=== PATIENT | female | born 1970 | race American Indian/Alaskan Native ===

== ENCOUNTER 2018-07-04 04:28 | Emergency (ER) | payer BC, OTHER ==
[2018-07-04 05:00] VITALS: BP 164/100
[2018-07-04 05:28] LABS: Basophils # (Auto) 0.1 K/mm3 (0.0-0.1); Eosinophils # (Auto) 0.1 K/mm3 (0.0-0.4); Eosinophils % (Auto) 1.6 % (0.0-4.3); Hematocrit 45.1 % (30.3-42.9); Hemoglobin 15.2 gm/dl (10.1-14.3); Lymphocytes # (Auto) 3.5 K/mm3 (1.2-5.4); Lymphocytes % (Auto) 45.4 % (13.4-35.0); Mean Corpuscular HGB Conc 34 % (30-34); Mean Corpuscular Volume 88 fl (79-97); Monocytes # (Auto) 0.6 K/mm3 (0.0-0.8); Monocytes % (Auto) 7.3 % (0.0-7.3); Platelet Count 234 K/mm3 (140-440); Red Blood Count 5.15 M/mm3 (3.65-5.03); Red Cell Distribution Width 14.1 % (13.2-15.2)
[2018-07-04 05:43] LABS: BUN/Creatinine Ratio 18; Blood Urea Nitrogen 11 mg/dL (7-17); Calcium 9.2 mg/dL (8.4-10.2); Hemolysis Index 9
--- NOTE | 2018-07-04 06:30 | XRay Report ---
PROCEDURE: XR CHEST 1V AP TECHNIQUE: Chest radiograph single view. HISTORY: Chest Pain COMPARISONS: None . FINDINGS: Heart: Normal. Mediastinum/Vessels: Normal. Lungs/Pleural space: Normal. Bony thorax: No acute osseous abnormality. Life support devices: None. IMPRESSION: No acute cardiopulmonary abnormality. This document is electronically signed by Erick Nolasco MD., Jul 04 2018 06:27:55 AM ET
--- NOTE | 2018-07-04 07:21 | Emergency Department Report ---
ED Chest Pain HPI - General Chief Complaint: Chest Pain Stated Complaint: ARM PAIN , CHEST PAIN Time Seen by Provider: 07/04/18 07:15 Source: patient Mode of arrival: Ambulatory Limitations: No Limitations - History of Present Illness Severity scale (0 -10): 10 - Related Data Home Medications Medication Instructions Recorded Confirmed Last Taken ALBUTEROL Inhaler (OR & NICU) 2 puff IH QID PRN 03/13/14 01/05/15 01/04/15 [ProAir HFA Inhaler] Metformin HCl [metFORMIN ER] 500 mg PO QDAY 03/13/14 01/05/15 01/04/15 Glimepiride [Amaryl] 1 mg PO QAM 01/05/15 01/05/15 01/04/15 Losartan/Hydrochlorothiazide 1 tab PO QDAY 01/05/15 01/05/15 01/04/15 [Hyzaar 50-12.5 TAB] Simvastatin [Zocor TAB] 10 mg PO QHS 01/05/15 01/05/15 01/04/15 Previous Rx's Medication Instructions Recorded Last Taken Type Pantoprazole [Protonix TAB] 40 mg PO QDAY #30 tablet 01/06/15 Unknown Rx Allergies Allergy/AdvReac Type Severity Reaction Status Date / Time No Known Allergies Allergy Verified 01/05/15 09:29 ED Review of Systems ROS: Stated complaint: ARM PAIN , CHEST PAIN Other details as noted in HPI ED Past Medical Hx - Past Medical History Previous Medical History?: Yes Hx Hypertension: Yes Hx Diabetes: Yes Hx Asthma: Yes Additional medical history: Neuropathy - Surgical History Past Surgical History?: Yes Additional Surgical History: FIBROID REMOVED - Social History Smoking Status: Never Smoker Substance Use Type: None - Medications Home Medications: Home Medications Medication Instructions Recorded Confirmed Last Taken Type ALBUTEROL Inhaler (OR & NICU) 2 puff IH QID PRN 03/13/14 01/05/15 01/04/15 History [ProAir HFA Inhaler] Metformin HCl [metFORMIN ER] 500 mg PO QDAY 03/13/14 01/05/15 01/04/15 History Glimepiride [Amaryl] 1 mg PO QAM 01/05/15 01/05/15 01/04/15 History Losartan/Hydrochlorothiazide 1 tab PO QDAY 01/05/15 01/05/15 01/04/15 History [Hyzaar 50-12.5 TAB] Simvastatin [Zocor TAB] 10 mg PO QHS 01/05/15 01/05/15 01/04/15 History Pantoprazole [Protonix TAB] 40 mg PO QDAY #30 tablet 01/06/15 Unknown Rx ED Physical Exam - General Limitations: No Limitations ED Course Vital Signs 07/04/18 04:58 Temperature 97.8 F Pulse Rate 79 Respiratory 16 Rate Blood Pressure 164/100 [Left] O2 Sat by Pulse 99 Oximetry MACK score - Mack Score Age > 65: (0) No Aspirin use within the Past 7 Days: (0) No 3 or more CAD Risk Factors: (1) Yes 2 or more Angina events in past 24 hrs: (0) No Known CAD with more than 50% Stenosis: (0) No Elevated Cardiac Markers: (0) No ST Deviation Greater than 0.5mm: (0) No MACK Score: 1 ED Medical Decision Making - Lab Data Result diagrams: 07/04/18 05:16 07/04/18 05:16 - Radiology Data Radiology results: report reviewed, image reviewed Fluoro Time In Minutes: PROCEDURE: XR CHEST 1V AP TECHNIQUE: Chest radiograph single view. HISTORY: Chest Pain COMPARISONS: None . FINDINGS: Heart: Normal. Mediastinum/Vessels: Normal. Lungs/Pleural space: Normal. Bony thorax: No acute osseous abnormality. Life support devices: None. IMPRESSION: No acute cardiopulmonary abnormality. This document is electronically signed by Erick Thornton MD., Jul 04 2018 06:27:55 AM ET Transcribed By: CO Dictated By: ERICK THORNTON MD Electronically Authenticated By: ERICK THORNTON MD Signed Date/Time: 07/04/18 0676 Critical care attestation.: If time is entered above; I have spent that time in minutes in the direct care of this critically ill patient, excluding procedure time. ED Disposition Condition: Stable Referrals: MARTHA CONNELLY MD [Primary Care Provider] - 3-5 Days
--- NOTE | 2018-07-04 08:07 | Emergency Department Report ---
Upper Extremity - HPI Chief Complaint: Chest Pain Stated Complaint: ARM PAIN , CHEST PAIN Time Seen by Provider: 07/04/18 07:15 Upper Extremity: Left Shoulder, Left Arm Occurred When: >5 Days Mechanism: Fall (2 years ago) Severity: moderate Symptoms: Yes Pain with Movement, Yes Limited Range of Movement, No Deformity, No Numbness, No Weakness, No Swelling, No Bruising/Ecchymosis, No Laceration or Abrasion Other History: This is a 47-year-old female with history of neuropathy controlled medication who presents ED complaining left-sided collarbone to shoulder pain this pain getting worse for the past 2 years. Patient states about 2 years ago she fell off a ladder and on her back. Patient states that she did not seek medical attention since that time. Patient states this instance she is noticed her left shoulder is gotten gradually worse with pain. Patient states that it flares up from time to time with swollen shoulder and arm of the left. Patient states she is experiencing pain with lifting her arm up. ED Review of Systems ROS: Stated complaint: ARM PAIN , CHEST PAIN Other details as noted in HPI Comment: All other systems reviewed and negative ED Past Medical Hx - Past Medical History Previous Medical History?: Yes Hx Hypertension: Yes Hx Diabetes: Yes Hx Asthma: Yes Additional medical history: Neuropathy - Surgical History Past Surgical History?: Yes Additional Surgical History: FIBROID REMOVED - Social History Smoking Status: Never Smoker Substance Use Type: None - Medications Home Medications: Home Medications Medication Instructions Recorded Confirmed Last Taken Type ALBUTEROL Inhaler (OR & NICU) 2 puff IH QID PRN 03/13/14 01/05/15 01/04/15 History [ProAir HFA Inhaler] Metformin HCl [metFORMIN ER] 500 mg PO QDAY 03/13/14 01/05/15 01/04/15 History Glimepiride [Amaryl] 1 mg PO QAM 01/05/15 01/05/15 01/04/15 History Losartan/Hydrochlorothiazide 1 tab PO QDAY 01/05/15 01/05/15 01/04/15 History [Hyzaar 50-12.5 TAB] Simvastatin [Zocor TAB] 10 mg PO QHS 01/05/15 01/05/15 01/04/15 History Pantoprazole [Protonix TAB] 40 mg PO QDAY #30 tablet 01/06/15 Unknown Rx Cyclobenzaprine [Flexeril] 10 mg PO QHS PRN #30 tablet 07/04/18 Unknown Rx Ibuprofen [Motrin] 800 mg PO Q8HR #30 tablet 07/04/18 Unknown Rx Upper Extremity Exam - Exam General: Vital signs noted. No distress. Alert and acting appropriately. Head and Torso: No HEENT Abnormality, No Neck Tenderness, No Chest/Lungs Abnormality, No Abdominal Tenderness, No Back Tenderness Shoulder Exam: Yes Shoulder Tenderness (left-sided), Yes AC Joint Tenderness, No Clavicle Tenderness, No Normal Range of Motion in Shoulder (limited with pain unable to lift her arm above shoulder), No Shoulder Deformity Arm Exam: No Arm/Humerus Tenderness, No Arm Deformity Elbow: No Elbow Tenderness, No Normal Range of Motion in Elbow, No Elbow Deformity Forearm: No Forearm Tenderness, No Forearm Deformity, No Pain with Pronation, No Pain with Supination Wrist: Yes Normal ROM in Wrist, No Wrist Tenderness, No Wrist Deformity, No Snuffbox Tenderness, No Pain with Axial Thumb Compression Hand: Yes Normal ROM in Digit(s), No Hand Tenderness, No Hand Deformity, No Digit Tenderness, No Digit(s) Deformity, No Tendon Dysfunction CMS Exam: No Broken Skin, No Normal Distal Pulses, No Normal Capillary Refill, No Normal Distal Sensation ED Course Vital Signs 07/04/18 04:58 Temperature 97.8 F Pulse Rate 79 Respiratory 16 Rate Blood Pressure 164/100 [Left] O2 Sat by Pulse 99 Oximetry ED Medical Decision Making - Lab Data Result diagrams: 07/04/18 05:16 07/04/18 05:16 - Radiology Data Radiology results: report reviewed, image reviewed - Medical Decision Making 47-year-old female presents with possible before meals joint injury of the left shoulder. Discussed with the patient that she needs to see an orthopedic doctor. X-rays of the shoulder is obtained. Discussed results with the patient. Vital signs are normal patient is in no acute distress. Critical care attestation.: If time is entered above; I have spent that time in minutes in the direct care of this critically ill patient, excluding procedure time. ED Disposition Clinical Impression: Shoulder arthralgia, Hill Sachs deformity, left Disposition: DC-01 TO HOME OR SELFCARE Is pt being admited?: No Does the pt Need Aspirin: No Condition: Stable Instructions: Rotator Cuff Tendinitis (ED), Trigger Point Pain (ED), Cervical Radiculopathy (ED), Tendinitis (ED) Additional Instructions: Make sure to follow up with the orthopedics physician as discussed. Take all your medications as you've been prescribed. If you have any worsening symptoms or develop new symptoms please return to ED immediately. Prescriptions: Cyclobenzaprine [Flexeril] 10 mg PO QHS PRN #30 tablet PRN Reason: Muscle Spasm Ibuprofen [Motrin] 800 mg PO Q8HR #30 tablet Referrals: MARTHA CONNELLY MD [Primary Care Provider] - 3-5 Days RAFAEL RIVERA MD [Staff Physician] - 3-5 Days Forms: Accompanied Note, Work/School Release Form(ED) Time of Disposition: 08:13
--- NOTE | 2018-07-04 08:11 | XRay Report ---
LEFT SHOULDER RADIOGRAPHS INDICATION: Pain. COMPARISON: None similar. FINDINGS: Frontal and Y views of the left shoulder, 3 projections demonstrate normal humeral head articular surface, well positioned against the glenoid. Subtle Hill-Sachs deformity though not entirely excluded. Normal acromioclavicular joint. Preserved scapular contour. Normal visualized soft tissues, left ribs and lung. CONCLUSION: Subtle Hill-Sachs deformity on the left not entirely excluded, as described. Please correlate. Thank you for the opportunity to participate in this patient's care.
== END 2018-07-04 08:27 | disposition home or self-care (01) ==
LOC: ED 04:28
DX: M25.512 Pain in left shoulder (principal); M21.922 Unspecified acquired deformity of left upper arm; I10 Essential (primary) hypertension; E11.9 Type 2 diabetes mellitus without complications; J45.909 Unspecified asthma, uncomplicated
CPT/HCPCS: 36415; 71045; 80048; 84484; 85025; 93005; 93010

== ENCOUNTER 2018-08-05 09:19 | Outpatient (CLI) | payer BC ==
--- NOTE | 2018-08-06 07:52 | Mammography Report ---
Bilateral mammogram: Compared to 07/31/12. CAD study utilized. Findings: Predominance adipose tissue bilaterally. No distinct mass or microcalcification. Benign axillary nodes. Impression: Benign findings. Annual followup recommended. BI-RADS CATEGORY: 2 = Benign ACR BI-RADS MAMMOGRAPHIC CODES: 0 = Needs additional imaging evaluation; 1 = Negative; 2 = Benign; 3 = Probably benign; 4 = Suspicious; 5 = Malignant; 6 = Known biopsy-proven malignancy COMMENT: 1. Dense breast tissue, i.e., adenosis, fibrocystic changes, etc., may obscure an underlying neoplasm. 2. Approximately 10% of cancers are not detected with mammography. 3. A negative mammography report should not delay biopsy if a clinically suspicious mass is present. COMMENT: Patient follow-up letters are generated in [employer].
== END 2018-08-05 09:20 | disposition home or self-care (01) ==
LOC: MAMMO 09:19
PROVIDERS: ATTEND Nurse Practitioner Gerontology
DX: Z12.31 Encounter for screening mammogram for malignant neoplasm of breast (principal)
CPT/HCPCS: 77067

== ENCOUNTER 2019-06-03 10:25 | Inpatient (IN) | payer BC ==
--- NOTE | 2019-06-03 10:40 | Emergency Department Report ---
ED Altered Mental Status HPI - General Stated Complaint: POSS STROKE Time Seen by Provider: 06/03/19 10:30 Source: EMS, old records reviewed Limitations: Altered Mental Status - History of Present Illness Initial Comments: Mrs. Tomas is a 48-year-old female with a history of hypertension, type 2 diabetes mellitus events with altered mental status. She arrived per EMS. Last known time normal 10 PM last night. Patient is nonverbal. History obtained from paramedics and electronic medical record. Patient had been ill with fever cough for the past several days. She recently returned back from [place]. EMS discovered patient to be altered with work of breathing. Patient is nonverbal. She was not moving her right side. She is hypoxic at 77% room air. Blood pressure was 140/97. Blood sugar was elevated fingerstick. Hx obtained from [facility] realized that patient was not speaking 4 AM. Found her later breathing really heavy. Unresponsive. When she came back from [place] last Saturday. She had high fever. Her doctor ordered test for COVID-19. Dr. Rausch her PCP informed patient that she tested negative. She went to [place] to celebrate her mother's birthday. MD Complaint: altered mental status, decreased responsiveness -: unknown Severity: severe Consistency of Symptoms: constant Context: recent fever - Related Data Home Medications Medication Instructions Recorded Confirmed Last Taken Albuterol INH(or & Nicu Only) 2 puff IH QID PRN 03/13/14 01/05/15 01/04/15 [ProAir HFA Inhaler] Metformin HCl [metFORMIN ER] 500 mg PO QDAY 03/13/14 01/05/15 01/04/15 Glimepiride [Amaryl] 1 mg PO QAM 01/05/15 01/05/15 01/04/15 Losartan/Hydrochlorothiazide 1 tab PO QDAY 01/05/15 01/05/15 01/04/15 [Hyzaar 50-12.5 TAB] Simvastatin [Zocor TAB] 10 mg PO QHS 01/05/15 01/05/15 01/04/15 Previous Rx's Medication Instructions Recorded Last Taken Type Pantoprazole [Protonix TAB] 40 mg PO QDAY #30 tablet 01/06/15 Unknown Rx Cyclobenzaprine [Flexeril] 10 mg PO QHS PRN #30 tablet 07/04/18 Unknown Rx Ibuprofen [Motrin] 800 mg PO Q8HR #30 tablet 07/04/18 Unknown Rx Allergies Allergy/AdvReac Type Severity Reaction Status Date / Time No Known Allergies Allergy Verified 01/05/15 09:29 ED Review of Systems ROS: Stated complaint: POSS STROKE Other details as noted in HPI Comment: Unobtainable due to pts medical conditions (Altered mental status) ED Past Medical Hx - Past Medical History Previous Medical History?: Yes Hx Hypertension: Yes Hx Diabetes: Yes Hx Asthma: Yes Additional medical history: Neuropathy - Surgical History Past Surgical History?: Yes Additional Surgical History: FIBROID REMOVED - Social History Smoking Status: Never Smoker Substance Use Type: None - Medications Home Medications: Home Medications Medication Instructions Recorded Confirmed Last Taken Type Albuterol INH(or & Nicu Only) 2 puff IH QID PRN 03/13/14 01/05/15 01/04/15 History [ProAir HFA Inhaler] Metformin HCl [metFORMIN ER] 500 mg PO QDAY 03/13/14 01/05/15 01/04/15 History Glimepiride [Amaryl] 1 mg PO QAM 01/05/15 01/05/15 01/04/15 History Losartan/Hydrochlorothiazide 1 tab PO QDAY 01/05/15 01/05/15 01/04/15 History [Hyzaar 50-12.5 TAB] Simvastatin [Zocor TAB] 10 mg PO QHS 01/05/15 01/05/15 01/04/15 History Pantoprazole [Protonix TAB] 40 mg PO QDAY #30 tablet 01/06/15 Unknown Rx Cyclobenzaprine [Flexeril] 10 mg PO QHS PRN #30 tablet 07/04/18 Unknown Rx Ibuprofen [Motrin] 800 mg PO Q8HR #30 tablet 07/04/18 Unknown Rx ED Physical Exam - General Limitations: Altered Mental Status General appearance: lethargic, other (Kussmaul respirations) - Head Head exam: Present: atraumatic, normocephalic - Eye Eye exam: Present: normal appearance, PERRL. Absent: scleral icterus, conjunctival injection - ENT ENT exam: Present: mucous membranes dry - Neck Neck exam: Present: normal inspection, full ROM - Respiratory Respiratory exam: Present: respiratory distress, decreased breath sounds. Absent: wheezes, rales, rhonchi - Cardiovascular Cardiovascular Exam: Present: tachycardia, irregular rhythm, normal heart sounds . Absent: systolic murmur, diastolic murmur, rubs, gallop - GI/Abdominal GI/Abdominal exam: Present: soft, normal bowel sounds. Absent: distended, tenderness, guarding, rebound - Extremities Exam Extremities exam: Present: other (Patient will move left arm no movement of right arm) - Neurological Exam Neurological exam: Present: altered, other (Nonverbal) - Psychiatric Psychiatric exam: Present: other (Lethargic nonverbal) - Skin Skin exam: Present: dry, intact. Absent: rash ED Course Vital Signs 06/03/19 06/03/19 06/03/19 11:18 11:49 13:12 Temperature 90.9 F L 91.1 F L Pulse Rate 107 H 108 H Respiratory 20 Rate Blood Pressure 110/83 123/94 O2 Sat by Pulse 97 97 Oximetry - Intubation Time Out Performed: Yes Sedative: Etomidate Mg Given: 20 Paralytic: Succinylcholine Mg Given: 100 Laryngoscope: Navdeep Size: 4 ET Tube Size: 7.5 Tube Secured Depth (cm): 19 Tube Secured Location: lips Tube Placement Confirmation: visualized tube passing t, equal breath sounds bilat, no breath sounds over epi Patient Tolerated Procedure: well, no complications Intubation Complications: none - Lab Data Result diagrams: 06/03/19 11:51 06/03/19 11:51 Lab Results 06/03/19 06/03/19 06/03/19 Range/Units 11:15 11:48 11:48 WBC (4.5-11.0) K/mm3 RBC (3.65-5.03) M/mm3 Hgb (10.1-14.3) gm/dl Hct (30.3-42.9) % MCV (79-97) fl MCH (28-32) pg MCHC (30-34) % RDW (13.2-15.2) % Plt Count (140-440) K/mm3 Lymph % (Auto) [place] % (Auto) Eos % (Auto) Baso % (Auto) Lymph # [place] # Eos # Baso # Seg Neutrophils % Seg Neutrophils # D-Dimer (0-234) ng/mlDDU VBG pH (7.320-7.420) Sodium (137-145) mmol/L Potassium (3.6-5.0) mmol/L Chloride (98-107) mmol/L Carbon Dioxide (22-30) mmol/L Anion Gap mmol/L BUN (7-17) mg/dL Creatinine (0.7-1.2) mg/dL Estimated GFR ml/min BUN/Creatinine Ratio % Glucose (65-100) mg/dL Lactic Acid (0.7-2.0) mmol/L Calcium (8.4-10.2) mg/dL Phosphorus 11.70 H (2.5-4.5) mg/dL Magnesium 4.40 H (1.7-2.3) mg/dL Ferritin (13.0-400.0) ng/mL Total Bilirubin (0.1-1.2) mg/dL AST (5-40) units/L ALT (7-56) units/L Alkaline Phosphatase (35-129) units/L Lactate Dehydrogenase (91-180) units/L Troponin T (0.00-0.029) ng/mL C-Reactive Protein (0.00-1.30) mg/dL Total Protein (6.3-8.2) g/dL Albumin (3.9-5) g/dL Albumin/Globulin Ratio % Urine Color Yellow (Yellow) Urine Turbidity Clear (Clear) Urine pH 6.0 (5.0-7.0) Ur Specific [place] 1.026 (1.003-1.030) Urine Protein 100 mg/dl (Negative) mg/dL Urine Glucose (UA) >=500 (Negative) mg/dL Urine Ketones 80 (Negative) mg/dL Urine Blood Mod (Negative) Urine Nitrite Neg (Negative) Urine Bilirubin Neg (Negative) Urine Urobilinogen < 2.0 (<2.0) mg/dL Ur Leukocyte Esterase Neg (Negative) Urine WBC (Auto) 1.0 (0.0-6.0) /HPF Urine RBC (Auto) 2.0 (0.0-6.0) /HPF Granular Casts 4 /LPF Urine Mucus Few /HPF Urine HCG, Qual Negative (Negative) Salicylates (2.8-20.0) mg/dL Urine Opiates Screen Presumptive negative Urine Methadone Screen Presumptive negative Acetaminophen (10.0-30.0) ug/mL Ur Barbiturates Screen Presumptive negative Ur Phencyclidine Scrn Presumptive negative Ur Amphetamines Screen Presumptive negative U Benzodiazepines Scrn Presumptive negative Urine Cocaine Screen Presumptive negative U Marijuana (THC) Screen Presumptive negative Drugs of Abuse Note Disclamer Plasma/Serum Alcohol (0-0.07) % 06/03/19 06/03/19 06/03/19 Range/Units 11:51 11:51 11:51 WBC 23.3 H (4.5-11.0) K/mm3 RBC 6.43 H (3.65-5.03) M/mm3 Hgb 17.7 H (10.1-14.3) gm/dl Hct 59.9 H* (30.3-42.9) % MCV 93 (79-97) fl MCH 28 (28-32) pg MCHC 30 (30-34) % RDW 17.1 H (13.2-15.2) % Plt Count 325 (140-440) K/mm3 Lymph % (Auto) Shuttle Veneering Supervisor [place] % (Auto) Shuttle Veneering Supervisor Eos % (Auto) Shuttle Veneering Supervisor Baso % (Auto) Shuttle Veneering Supervisor Lymph # Shuttle Veneering Supervisor Hamilton # Shuttle Veneering Supervisor Eos # Shuttle Veneering Supervisor Baso # Shuttle Veneering Supervisor Seg Neutrophils % Shuttle Veneering Supervisor Seg Neutrophils # Shuttle Veneering Supervisor D-Dimer (0-234) ng/mlDDU VBG pH (7.320-7.420) Sodium 144 (137-145) mmol/L Potassium 4.6 (3.6-5.0) mmol/L Chloride 103.0 (98-107) mmol/L Carbon Dioxide 4 L* (22-30) mmol/L Anion Gap 42 mmol/L BUN 41 H (7-17) mg/dL Creatinine 1.8 H (0.7-1.2) mg/dL Estimated GFR 36 ml/min BUN/Creatinine Ratio 23 % Glucose 636 H* (65-100) mg/dL Lactic Acid 3.20 H* (0.7-2.0) mmol/L Calcium 10.9 H (8.4-10.2) mg/dL Phosphorus (2.5-4.5) mg/dL Magnesium (1.7-2.3) mg/dL Ferritin (13.0-400.0) ng/mL Total Bilirubin 0.20 (0.1-1.2) mg/dL AST 43 H (5-40) units/L ALT 32 (7-56) units/L Alkaline Phosphatase 147 H (35-129) units/L Lactate Dehydrogenase 673 H (91-180) units/L Troponin T < 0.010 (0.00-0.029) ng/mL C-Reactive Protein 14.70 H (0.00-1.30) mg/dL Total Protein 8.9 H (6.3-8.2) g/dL Albumin 4.3 (3.9-5) g/dL Albumin/Globulin Ratio 0.9 % Urine Color (Yellow) Urine Turbidity (Clear) Urine pH (5.0-7.0) Ur Specific [place] (1.003-1.030) Urine Protein (Negative) mg/dL Urine Glucose (UA) (Negative) mg/dL Urine Ketones (Negative) mg/dL Urine Blood (Negative) Urine Nitrite (Negative) Urine Bilirubin (Negative) Urine Urobilinogen (<2.0) mg/dL Ur Leukocyte Esterase (Negative) Urine WBC (Auto) (0.0-6.0) /HPF Urine RBC (Auto) (0.0-6.0) /HPF Granular Casts /LPF Urine Mucus /HPF Urine HCG, Qual (Negative) Salicylates (2.8-20.0) mg/dL Urine Opiates Screen Urine Methadone Screen Acetaminophen (10.0-30.0) ug/mL Ur Barbiturates Screen Ur Phencyclidine Scrn Ur Amphetamines Screen U Benzodiazepines Scrn Urine Cocaine Screen U Marijuana (THC) Screen Drugs of Abuse Note Plasma/Serum Alcohol (0-0.07) % 06/03/19 06/03/19 06/03/19 Range/Units 11:51 11:51 11:51 WBC (4.5-11.0) K/mm3 RBC (3.65-5.03) M/mm3 Hgb (10.1-14.3) gm/dl Hct (30.3-42.9) % MCV (79-97) fl MCH (28-32) pg MCHC (30-34) % RDW (13.2-15.2) % Plt Count (140-440) K/mm3 Lymph % (Auto) [place] % (Auto) Eos % (Auto) Baso % (Auto) Lymph # [place] # Eos # Baso # Seg Neutrophils % Seg Neutrophils # D-Dimer (0-234) ng/mlDDU VBG pH (7.320-7.420) Sodium (137-145) mmol/L Potassium (3.6-5.0) mmol/L Chloride (98-107) mmol/L Carbon Dioxide (22-30) mmol/L Anion Gap mmol/L BUN (7-17) mg/dL Creatinine (0.7-1.2) mg/dL Estimated GFR ml/min BUN/Creatinine Ratio % Glucose (65-100) mg/dL Lactic Acid (0.7-2.0) mmol/L Calcium (8.4-10.2) mg/dL Phosphorus (2.5-4.5) mg/dL Magnesium (1.7-2.3) mg/dL Ferritin (13.0-400.0) ng/mL Total Bilirubin (0.1-1.2) mg/dL AST (5-40) units/L ALT (7-56) units/L Alkaline Phosphatase (35-129) units/L Lactate Dehydrogenase (91-180) units/L Troponin T (0.00-0.029) ng/mL C-Reactive Protein (0.00-1.30) mg/dL Total Protein (6.3-8.2) g/dL Albumin (3.9-5) g/dL Albumin/Globulin Ratio % Urine Color (Yellow) Urine Turbidity (Clear) Urine pH (5.0-7.0) Ur Specific [place] (1.003-1.030) Urine Protein (Negative) mg/dL Urine Glucose (UA) (Negative) mg/dL Urine Ketones (Negative) mg/dL Urine Blood (Negative) Urine Nitrite (Negative) Urine Bilirubin (Negative) Urine Urobilinogen (<2.0) mg/dL Ur Leukocyte Esterase (Negative) Urine WBC (Auto) (0.0-6.0) /HPF Urine RBC (Auto) (0.0-6.0) /HPF Granular Casts /LPF Urine Mucus /HPF Urine HCG, Qual (Negative) Salicylates < 0.3 L (2.8-20.0) mg/dL Urine Opiates Screen Urine Methadone Screen Acetaminophen < 5.0 L (10.0-30.0) ug/mL Ur Barbiturates Screen Ur Phencyclidine Scrn Ur Amphetamines Screen U Benzodiazepines Scrn Urine Cocaine Screen U Marijuana (THC) Screen Drugs of Abuse Note Plasma/Serum Alcohol < 0.01 (0-0.07) % 06/03/19 06/03/19 06/03/19 Range/Units 11:51 11:51 11:51 WBC (4.5-11.0) K/mm3 RBC (3.65-5.03) M/mm3 Hgb (10.1-14.3) gm/dl Hct (30.3-42.9) % MCV (79-97) fl MCH (28-32) pg MCHC (30-34) % RDW (13.2-15.2) % Plt Count (140-440) K/mm3 Lymph % (Auto) [place] % (Auto) Eos % (Auto) Baso % (Auto) Lymph # [place] # Eos # Baso # Seg Neutrophils % Seg Neutrophils # D-Dimer 4311.60 H (0-234) ng/mlDDU VBG pH 6.901 L* (7.320-7.420) Sodium (137-145) mmol/L Potassium (3.6-5.0) mmol/L Chloride (98-107) mmol/L Carbon Dioxide (22-30) mmol/L Anion Gap mmol/L BUN (7-17) mg/dL Creatinine (0.7-1.2) mg/dL Estimated GFR ml/min BUN/Creatinine Ratio % Glucose (65-100) mg/dL Lactic Acid (0.7-2.0) mmol/L Calcium (8.4-10.2) mg/dL Phosphorus (2.5-4.5) mg/dL Magnesium (1.7-2.3) mg/dL Ferritin 1037.0 H (13.0-400.0) ng/mL Total Bilirubin (0.1-1.2) mg/dL AST (5-40) units/L ALT (7-56) units/L Alkaline Phosphatase (35-129) units/L Lactate Dehydrogenase (91-180) units/L Troponin T (0.00-0.029) ng/mL C-Reactive Protein (0.00-1.30) mg/dL Total Protein (6.3-8.2) g/dL Albumin (3.9-5) g/dL Albumin/Globulin Ratio % Urine Color (Yellow) Urine Turbidity (Clear) Urine pH (5.0-7.0) Ur Specific [place] (1.003-1.030) Urine Protein (Negative) mg/dL Urine Glucose (UA) (Negative) mg/dL Urine Ketones (Negative) mg/dL Urine Blood (Negative) Urine Nitrite (Negative) Urine Bilirubin (Negative) Urine Urobilinogen (<2.0) mg/dL Ur Leukocyte Esterase (Negative) Urine WBC (Auto) (0.0-6.0) /HPF Urine RBC (Auto) (0.0-6.0) /HPF Granular Casts /LPF Urine Mucus /HPF Urine HCG, Qual (Negative) Salicylates (2.8-20.0) mg/dL Urine Opiates Screen Urine Methadone Screen Acetaminophen (10.0-30.0) ug/mL Ur Barbiturates Screen Ur Phencyclidine Scrn Ur Amphetamines Screen U Benzodiazepines Scrn Urine Cocaine Screen U Marijuana (THC) Screen Drugs of Abuse Note Plasma/Serum Alcohol (0-0.07) % 06/03/19 Range/Units 12:34 WBC (4.5-11.0) K/mm3 RBC (3.65-5.03) M/mm3 Hgb (10.1-14.3) gm/dl Hct (30.3-42.9) % MCV (79-97) fl MCH (28-32) pg MCHC (30-34) % RDW (13.2-15.2) % Plt Count (140-440) K/mm3 Lymph % (Auto) [place] % (Auto) Eos % (Auto) Baso % (Auto) Lymph # [place] # Eos # Baso # Seg Neutrophils % Seg Neutrophils # D-Dimer (0-234) ng/mlDDU VBG pH (7.320-7.420) Sodium (137-145) mmol/L Potassium (3.6-5.0) mmol/L Chloride (98-107) mmol/L Carbon Dioxide (22-30) mmol/L Anion Gap mmol/L BUN (7-17) mg/dL Creatinine (0.7-1.2) mg/dL Estimated GFR ml/min BUN/Creatinine Ratio % Glucose (65-100) mg/dL Lactic Acid 5.20 H* (0.7-2.0) mmol/L Calcium (8.4-10.2) mg/dL Phosphorus (2.5-4.5) mg/dL Magnesium (1.7-2.3) mg/dL Ferritin (13.0-400.0) ng/mL Total Bilirubin (0.1-1.2) mg/dL AST (5-40) units/L ALT (7-56) units/L Alkaline Phosphatase (35-129) units/L Lactate Dehydrogenase (91-180) units/L Troponin T (0.00-0.029) ng/mL C-Reactive Protein (0.00-1.30) mg/dL Total Protein (6.3-8.2) g/dL Albumin (3.9-5) g/dL Albumin/Globulin Ratio % Urine Color (Yellow) Urine Turbidity (Clear) Urine pH (5.0-7.0) Ur Specific [place] (1.003-1.030) Urine Protein (Negative) mg/dL Urine Glucose (UA) (Negative) mg/dL Urine Ketones (Negative) mg/dL Urine Blood (Negative) Urine Nitrite (Negative) Urine Bilirubin (Negative) Urine Urobilinogen (<2.0) mg/dL Ur Leukocyte Esterase (Negative) Urine WBC (Auto) (0.0-6.0) /HPF Urine RBC (Auto) (0.0-6.0) /HPF Granular Casts /LPF Urine Mucus /HPF Urine HCG, Qual (Negative) Salicylates (2.8-20.0) mg/dL Urine Opiates Screen Urine Methadone Screen Acetaminophen (10.0-30.0) ug/mL Ur Barbiturates Screen Ur Phencyclidine Scrn Ur Amphetamines Screen U Benzodiazepines Scrn Urine Cocaine Screen U Marijuana (THC) Screen Drugs of Abuse Note Plasma/Serum Alcohol (0-0.07) % 06/03/19 11:38 EKG obtained 1134 Sinus tachycardia rate 110 bpm versus multifocal atrial tachycardia normal axis normal QT interval nonspecific T wave pattern no ST elevation - Radiology Data Radiology results: report reviewed CT head no acute intracranial process CT cervical spine patchy groundglass consolidative airspace disease right mid to lower lung - Medical Decision Making Mrs. Tomas presents with altered mental status hypoxia. She required mechanical ventilation for oxygenation and airway control. Initially was not moving her right side. With oxygen supplementation she began to move both of her arms. She continued to be nonverbal. She did not follow commands prior to intubation. With CT chest findings and history of fever I strongly suspect COVID 19. New on set atrial fibrillation also supports this diagnosis. I have filled out survey form through the [facility] of [facility] as a person under investigation for COVID 19. Patient returned 1 week ago from [place] after celebrating her mother's birthday. Hypothermia noted. Bear hugger applied. Pertinent positives venous pH 6.9, leukocytosis elevated WBC 23,000,'s bicarbonate 4 anion gap 42 BUN 41 creatinine 1.8 glucose 636, lactic acid 3.2 ferritin 1037 d-dimer elevated LDH elevated CRP elevated 1. Acute respiratory failure due to suspected COVID 19 infection multifocal pneumonia, must consider bacterial infection with elevated white count broad- spectrum antibiotics initiated. Plaquenil also ordered according to recommendation by Infectious disease leasing consultant Dr. Hawk 2. Diabetic ketoacidosis: Insulin infusion and bolus initiated as well as IV hydration according to sepsis protocol 3. Sepsis with hypothermia: Sepsis protocol initiated 4. Acute metabolic encephalopathy due to severe acidosis Admitted to the CCU in fair condition Critical Care Time: Yes Critical care attestation.: If time is entered above; I have spent that time in minutes in the direct care of this critically ill patient, excluding procedure time. 40 minutes of critical care time excluding procedures were used in the care of the patient. I reviewed electronic record. I discussed treatment plan with the nursing team members at the bedside. I came immediately to the ambulance bay. Initial concern for CVA. I obtained history from paramedics. I requested that the patient be taken to CT scan immediately to rule out intracranial hemorrhage. Patient required multiple interventions and reassessments. ED Disposition Clinical Impression: Acute respiratory failure with hypoxia, Acute encephalopathy, Suspected COVID- 19 virus infection, Diabetic ketoacidosis Disposition: OP ADMIT IP TO THIS HOSP Is pt being admited?: Yes Does the pt Need Aspirin: No Condition: Fair
[2019-06-03] MEDS ORDERED: ROCURONIUM 50 MG/5 ML INJ IV ONE ×2 (11:00→22:04)
[2019-06-03] MEDS ORDERED: ETOMIDATE 20 MG/10 ML INJ IV ONE ×2 (11:00→22:04)
[2019-06-03] MEDS ORDERED: MIDAZOLAM 5 MG/5 ML INJ MDV IV NR (11:00)
--- NOTE | 2019-06-03 11:00 | Cat Scan Report ---
CT head/brain wo con INDICATION / CLINICAL INFORMATION: 48 years Female; altered mental status right side paralysis. TECHNIQUE: Routine CT head without contrast. All CT scans at this location are performed using CT dos e reduction for ALARA by means of automated exposure control. COMPARISON: None. FINDINGS: BRAIN / INTRACRANIAL CONTENTS: The beam hardening degrades image quality. However, the brain appears to demonstrate appropriate attenuation. The ventricular system is within normal limits in size and co nfiguration. There is no definitive CT evidence of acute intracranial hemorrhage or significant mass effect at. There is relative prominence of the straight sinus and vein of [place] which appear to refle ct a developmental variant. ORBITS: No significant abnormality of visualized orbits. SINUSES / MASTOIDS: No significant abnormality the visualized paranasal sinuses or mastoid air cells. CRANIOCERVICAL JUNCTION: No significant abnormality. ADDITIONAL FINDINGS: None. IMPRESSION: 1. There is no CT evidence of acute intracranial process. Signer Name: Cihn Marrufo MD Signed: 06/03/2019 10:55 AM Workstation Name: [id number]
[2019-06-03] MEDS ORDERED: LIP THERAPY VASELINE TP PRN (11:02)
[2019-06-03] MEDS ORDERED: MINERAL OIL/PETROLATUM, WHITE OPHTH OINT 3.5 GM OU PRN (11:02)
--- NOTE | 2019-06-03 11:14 | Cat Scan Report ---
CT CHEST WITHOUT IV CONTRAST INDICATION: fever hypoxia. COMPARISON: None available. TECHNIQUE: All CT scans at this location are performed using CT dose reduction for ALARA by means of automated e xposure control. Axial CT images were obtained through the chest. FINDINGS: Upper Abdomen: Incompletely evaluated on this exam, there appears to be mild pelvocaliectasis in the right kidney. Skeletal System: No acute abnormality. Chest: Great Vessels: No acute abnormality. Heart: Normal. Mediastinum & Estrellita: No significant abnormality. Lungs: There is patchy groundglass and consolidative airspace disease within the right lung sparing t he apex. There is mild consolidative and groundglass disease within the left lower lobe and, to a les ser degree, the lingular segment of the left upper lobe. Pleura: No significant pleural effusion. No pneumothorax. Additional Findings: None. IMPRESSION: 1. Somewhat patchy bilateral ground glass and to a lesser degree consolidative airspace disease, grea test within the right mid to lower lung. These findings are likely infectious in etiology. No pleural effusion or mediastinal adenopathy. 2. Anatomic detail is limited due to patient motion. Signer Name: Ren Quarles MD Signed: 06/03/2019 11:09 AM Workstation Name: [id number]
[2019-06-03 12:01] LABS: Bilirubin,Urine NEG (Negative); Blood,Urine MOD (Negative); Color,Urine Yellow (Yellow); Granular Casts,Urine 4 /LPF; Mucus,Urine FEW /HPF; Urobilinogen,Urine < 2.0 mg/dL (<2.0)
[2019-06-03 12:03] LABS: Amphetamine Screen,Urine PRESUMPTIVE NEGATIVE; Benzodiazepines Screen,Urine PRESUMPTIVE NEGATIVE; Cannabinoid Screen,Urine PRESUMPTIVE NEGATIVE; Cocaine Screen,Urine PRESUMPTIVE NEGATIVE; Methadone Screen,Urine PRESUMPTIVE NEGATIVE; Opiate Screen,Urine PRESUMPTIVE NEGATIVE
--- NOTE | 2019-06-03 12:06 | XRay Report ---
CHEST 1 VIEW INDICATION: ETT placement. COMPARISON: Same-day CT. FINDINGS: Support devices: An endotracheal tube is been inserted and the tip is in satisfactory position. Heart: Within normal limits. Lungs/Pleura: Bibasal lung opacities. No pneumothorax. Additional findings: None. IMPRESSION: 1. Satisfactory endotracheal tube placement. 2. Bilateral pneumonia. Signer Name: Feroz Hunyh MD Signed: 06/03/2019 12:01 PM Workstation Name: [id number]
[2019-06-03 12:16] LABS: Mean Corpuscular HGB Conc 30 % (30-34); Mean Corpuscular Volume 93 fl (79-97); Platelet Count 325 K/mm3 (140-440); Red Blood Count 6.43 M/mm3 (3.65-5.03); Red Cell Distribution Width 17.1 % (13.2-15.2)
[2019-06-03 12:19] LABS: Hemoglobin 17.7 gm/dl (10.1-14.3)
[2019-06-03 12:20] LABS: Hematocrit 59.9 % (30.3-42.9)
[2019-06-03 12:21] LABS: HCG Qualitative,Urine Negative (Negative)
[2019-06-03] MEDS ORDERED: SODIUM CHLORIDE 0.9% 1000 ML IV SOLN IV ONE (12:22)
[2019-06-03 12:29] LABS: Alanine Aminotransferase 32 units/L (7-56); Albumin 4.3 g/dL (3.9-5); BUN/Creatinine Ratio 23; Blood Urea Nitrogen 41 mg/dL (7-17); Calcium 10.9 mg/dL (8.4-10.2); Hemolysis Index 59
[2019-06-03] MEDS ORDERED: VANCOMYCIN PHARMACY TO DOSE IV SCH (13:00)
[2019-06-03] MEDS ORDERED: INSULIN REGULAR, HUMAN 100 UNITS in SODIUM CHLORIDE 0.9% 99 ML IV SCH (13:00)
[2019-06-03] MEDS ORDERED: CEFEPIME/NS 2 GM/100 ML 2 GM/100 ML BAG IV SCH (13:00)
[2019-06-03] MEDS ORDERED: VANCOMYCIN 1,500 MG in SODIUM CHLORIDE 0.9% 500 ML 500 ML IV ONE (13:00)
[2019-06-03] MEDS ORDERED: INSULIN REGULAR, HUMAN 100 UNITS/1 ML IV ONE (13:00)
[2019-06-03 13:33] LABS: Band Neutrophils # (Manual) 1.2 K/mm3; Basophils % (Manual) 0 % (0.0-1.8); Eosinophils % (Manual) 0 % (0.0-4.3); Myelocytes # (Manual) 0.7 K/mm3; Platelet Estimate Consistent w Auto; RBC Morphology Normal; Total Cells Counted 100
[2019-06-03] MEDS ORDERED: DEXTROSE 50% IN WATER (25GM) 50 ML SYRINGE IV PRN (13:57)
[2019-06-03] MEDS ORDERED: SODIUM CHLORIDE 0.9% 1000 ML 1,000 ML IV ONE (13:57)
[2019-06-03] MEDS ORDERED: ALBUTEROL 2.5 MG/3 ML NEBU IH PRN (13:57)
[2019-06-03] MEDS ORDERED: SODIUM CHLORIDE 0.9% 1000 ML 1,000 ML IV SCH (14:00)
[2019-06-03] MEDS ORDERED: HYDROXYCHLOROQUINE 200 MG PO SCH (14:00)
--- NOTE | 2019-06-03 14:10 | History and Physical Report ---
History of Present Illness Date of examination: 06/03/19 Date of admission: 06/03/2019 Chief complaint: Acute respiratory distress altered mental status, decreased responsiveness History of present illness: Patient was already intubated by the time I saw her history is as obtained from the ER physician Mrs. Tomas is a 48-year-old female with a history of hypertension, type 2 diabetes mellitus events with altered mental status. She arrived per EMS. Last known time normal 10 PM last night. Patient is nonverbal. History obtained from paramedics and electronic medical record. Patient had been ill with fever cough for the past several days. She recently returned back from [place]. EMS discovered patient to be altered with work of breathing. Patient is nonverbal. She was not moving her right side. She is hypoxic at 77% room air. Blood pressure was 140/97. Blood sugar was elevated fingerstick. Hx obtained from Mekhi Love realized that patient was not speaking 4 AM. Found her later breathing really heavy. Unresponsive. When she came back from [place] last Saturday. She had high fever. Her doctor ordered test for COVID-19. Dr. Rausch her PCP informed patient that she tested negative. She went to [place] to celebrate her mother's birthday. On admission she was noted to be in DKA and started on DKA protocol. She was also intubated and on full mechanical ventilatory support. Past History Past Medical History: diabetes, hypertension, hyperlipidemia Past Surgical History: No surgical history Social history: no significant social history, lives with family, full code Family history: no significant family history Medications and Allergies Allergies Allergy/AdvReac Type Severity Reaction Status Date / Time No Known Allergies Allergy Verified 01/05/15 09:29 Home Medications Medication Instructions Recorded Confirmed Last Taken Type Albuterol INH(or & Nicu Only) 2 puff IH QID PRN 03/13/14 01/05/15 01/04/15 History [ProAir HFA Inhaler] Metformin HCl [metFORMIN ER] 500 mg PO QDAY 03/13/14 01/05/15 01/04/15 History Glimepiride [Amaryl] 1 mg PO QAM 01/05/15 01/05/15 01/04/15 History Losartan/Hydrochlorothiazide 1 tab PO QDAY 1101/05/15 01/04/15 History [Hyzaar 50-12.5 TAB] Simvastatin [Zocor TAB] 10 mg PO QHS 01/05/15 01/05/15 01/04/15 History Pantoprazole [Protonix TAB] 40 mg PO QDAY #30 tablet 01/06/15 Unknown Rx Cyclobenzaprine [Flexeril] 10 mg PO QHS PRN #30 tablet 07/04/18 Unknown Rx Ibuprofen [Motrin] 800 mg PO Q8HR #30 tablet 07/04/18 Unknown Rx Active Meds: Active Medications Albuterol (Proventil) 2.5 mg IH Q3HRT PRN PRN Reason: Shortness Of Breath Dextrose (D50w (25gm) Syringe) 50 ml IV Q30MIN PRN; Protocol PRN Reason: Hypoglycemia Heparin Sodium (Porcine) (Heparin) 5,000 unit SUB-Q Q12HR JOSE ROBERTO Hydrophilic Ointment (Vaseline Lip Therapy) 1 applic TP Q2HR PRN PRN Reason: Dry Lips Hydroxychloroquine Sulfate (Plaquenil (Covid 19)) 400 mg PO BID JOSE ROBERTO Stop: 06/03/19 22:01 Hydroxychloroquine Sulfate (Plaquenil (Covid 19)) 200 mg PO BID JOSE ROBERTO Stop: 06/07/19 22:01 Propofol (Diprivan 10 Mg/Ml) 1,000 mg in 100 mls @ 2.346 mls/hr IV TITR JOSE ROBERTO; Protocol Last Admin: 06/03/19 12:30 Dose: 5 mcg/kg/min, 2.346 mls/hr Documented by: Vancomycin HCl 1,500 mg/ (Sodium Chloride) 530 mls @ 333 mls/hr IV ONCE ONE; Protocol Stop: 06/03/19 14:35 Vancomycin HCl (Vancomycin/Ns 1 Gm/250 Ml) 1 gm in 250 mls @ 166.667 mls/hr IV Q24HR JOSE ROBERTO Insulin Human Regular 100 (units/ Sodium Chloride) 100 mls @ 1 mls/hr IV TITR JOSE ROBERTO; Protocol Cefepime HCl (Cefepime/Ns 2 Gm/100 Ml) 2 gm in 100 mls @ 200 mls/hr IV Q12HR JOSE ROBERTO; Protocol Sodium Chloride (Nacl 0.9% 1000 Ml) 1,000 mls @ 125 mls/hr IV DIRECT JOSE ROBERTO Insulin Human Regular 100 (units/ Sodium Chloride) 100 mls @ 1 mls/hr IV TITR JOSE ROBERTO; Protocol Sodium Chloride (Nacl 0.9% 1000 Ml) 1,000 mls @ 999 mls/hr IV BOLUS ONE Stop: 06/03/19 14:57 Insulin Human Lispro (Humalog) 0 unit SUB-Q Q6HR JOSE ROBERTO; Protocol Multi-Ingred Cream/Lotion/Oil/Oint (Artificial Tears Ophth Oint) 1 applic OU Q4HR PRN PRN Reason: Dry Eye(s) Senna (Senokot) 8.6 mg PO BID JOSE ROBERTO Sodium Chloride (Sodium Chloride Flush Syringe 10 Ml) 10 ml IV BID JOSE ROBERTO Sodium Chloride (Sodium Chloride Flush Syringe 10 Ml) 10 ml IV PRN PRN PRN Reason: LINE FLUSH Review of Systems ROS unobtainable: due to endotracheal tube Exam - Physical Exam Narrative exam: VITAL SIGNS: Reviewed. GENERAL: The patient appears normally developed, sedated and intubated vital signs as documented. HEAD: No signs of head trauma. EYES: Pupils are equal. Unable to examine EARS: Unable to examine MOUTH: Oropharynx is normal. ET tube in place NECK: No adenopathy, no JVD. CHEST: Chest with clear breath sounds bilaterally. No wheezes, rales, or rhonchi. CARDIAC: Regular rate and rhythm. S1 and S2, without murmurs, gallops, or rubs. VASCULAR: No Edema. Peripheral pulses normal and equal in all extremities. ABDOMEN: Soft, non tender and non distended. No rebound or guarding, and no masses palpated. Bowel Sounds normal. MUSCULOSKELETAL: Per ED documentation was moving left arm but not the right arm.. Extremities without clubbing, cyanosis or edema. NEUROLOGIC EXAM: Intubated and sedated PSYCHIATRIC: Unable to examine SKIN: detial exam as documented in skin assessment - Constitutional Vitals: Temp Pulse Resp BP Pulse Ox 91.1 F L 96 H 20 115/83 99 06/03/19 13:12 06/03/19 13:30 06/03/19 13:30 06/03/19 13:16 06/03/19 13:30 MACK score - Mack Score Age > 65: (0) No 3 or more CAD Risk Factors: (1) Yes 2 or more Angina events in past 24 hrs: (0) No Known CAD with more than 50% Stenosis: (0) No Elevated Cardiac Markers: (0) No ST Deviation Greater than 0.5mm: (0) No Results - Labs CBC & Chem 7: 06/03/19 11:51 06/04/19 01:25 Labs: Laboratory Last Values WBC 23.3 K/mm3 (4.5-11.0) H 06/03/19 11:51 RBC 6.43 M/mm3 (3.65-5.03) H 06/03/19 11:51 Hgb 17.7 gm/dl (10.1-14.3) H 06/03/19 11:51 Hct 59.9 % (30.3-42.9) H* 06/03/19 11:51 MCV 93 fl (79-97) 06/03/19 11:51 MCH 28 pg (28-32) 06/03/19 11:51 MCHC 30 % (30-34) 06/03/19 11:51 RDW 17.1 % (13.2-15.2) H 06/03/19 11:51 Plt Count 325 K/mm3 (140-440) 06/03/19 11:51 Lymph % (Auto) Public Health Sanitarian Technician 06/03/19 11:51 [place] % (Auto) Public Health Sanitarian Technician 06/03/19 11:51 Eos % (Auto) Public Health Sanitarian Technician 06/03/19 11:51 Baso % (Auto) Public Health Sanitarian Technician 06/03/19 11:51 Lymph # Public Health Sanitarian Technician 06/03/19 11:51 [place] # Public Health Sanitarian Technician 06/03/19 11:51 Eos # Public Health Sanitarian Technician 06/03/19 11:51 Baso # Public Health Sanitarian Technician 06/03/19 11:51 Add Manual Diff Complete 06/03/19 11:51 Total Counted 100 06/03/19 11:51 Seg Neutrophils % Public Health Sanitarian Technician 06/03/19 11:51 Seg Neuts % (Manual) 71.0 % (40.0-70.0) H 06/03/19 11:51 Band Neutrophils % 5.0 % 06/03/19 11:51 Lymphocytes % (Manual) 11.0 % (13.4-35.0) L 06/03/19 11:51 Reactive Lymphs % (Man) 1.0 % 06/03/19 11:51 Monocytes % (Manual) 8.0 % (0.0-7.3) H 06/03/19 11:51 Eosinophils % (Manual) 0 % (0.0-4.3) 06/03/19 11:51 Basophils % (Manual) 0 % (0.0-1.8) 06/03/19 11:51 Metamyelocytes % 1.0 % 06/03/19 11:51 Myelocytes % 3.0 % 06/03/19 11:51 Promyelocytes % 0 % 06/03/19 11:51 Blast Cells % 0 % 06/03/19 11:51 Nucleated RBC % Not Reportable 06/03/19 11:51 Seg Neutrophils # Public Health Sanitarian Technician 06/03/19 11:51 Seg Neutrophils # Man 16.5 K/mm3 (1.8-7.7) H 06/03/19 11:51 Band Neutrophils # 1.2 K/mm3 06/03/19 11:51 Lymphocytes # (Manual) 2.6 K/mm3 (1.2-5.4) 06/03/19 11:51 Abs React Lymphs (Man) 0.2 K/mm3 06/03/19 11:51 Monocytes # (Manual) 1.9 K/mm3 (0.0-0.8) H 06/03/19 11:51 Eosinophils # (Manual) 0.0 K/mm3 (0.0-0.4) 06/03/19 11:51 Basophils # (Manual) 0.0 K/mm3 (0.0-0.1) 06/03/19 11:51 Metamyelocytes # 0.2 K/mm3 06/03/19 11:51 Myelocytes # 0.7 K/mm3 06/03/19 11:51 Promyelocytes # 0.0 K/mm3 06/03/19 11:51 Blast Cells # 0.0 K/mm3 06/03/19 11:51 WBC Morphology Not Reportable 06/03/19 11:51 Hypersegmented Neuts Not Reportable 06/03/19 11:51 Hyposegmented Neuts Not Reportable 06/03/19 11:51 Hypogranular Neuts Not Reportable 06/03/19 11:51 Smudge Cells Not Reportable 06/03/19 11:51 Toxic Granulation Not Reportable 06/03/19 11:51 Toxic Vacuolation Not Reportable 06/03/19 11:51 Dohle Bodies Not Reportable 06/03/19 11:51 Pelger-Huet Anomaly Not Reportable 06/03/19 11:51 Stephanie Rods Not Reportable 06/03/19 11:51 Platelet Estimate Consistent w auto 06/03/19 11:51 Clumped Platelets Not Reportable 06/03/19 11:51 Plt Clumps, EDTA Not Reportable 06/03/19 11:51 Large Platelets Not Reportable 06/03/19 11:51 Giant Platelets Not Reportable 06/03/19 11:51 Platelet Satelliting Not Reportable 06/03/19 11:51 Plt Morphology Comment Not Reportable 06/03/19 11:51 RBC Morphology Normal 06/03/19 11:51 Dimorphic RBCs Not Reportable 06/03/19 11:51 Polychromasia Not Reportable 06/03/19 11:51 Hypochromasia Not Reportable 06/03/19 11:51 Poikilocytosis Not Reportable 06/03/19 11:51 Anisocytosis Not Reportable 06/03/19 11:51 Microcytosis Not Reportable 06/03/19 11:51 Macrocytosis Not Reportable 06/03/19 11:51 Spherocytes Not Reportable 06/03/19 11:51 Pappenheimer Bodies Not Reportable 06/03/19 11:51 Sickle Cells Not Reportable 06/03/19 11:51 Target Cells Not Reportable 06/03/19 11:51 Tear Drop Cells Not Reportable 06/03/19 11:51 Ovalocytes Not Reportable 06/03/19 11:51 Helmet Cells Not Reportable 06/03/19 11:51 Hutchinson-Candy Kitchen Bodies Not Reportable 06/03/19 11:51 Superior Rings Not Reportable 06/03/19 11:51 Goodspring Cells Not Reportable 06/03/19 11:51 Bite Cells Not Reportable 06/03/19 11:51 Crenated Cell Not Reportable 06/03/19 11:51 Elliptocytes Not Reportable 06/03/19 11:51 Acanthocytes (Spur) Not Reportable 06/03/19 11:51 Rouleaux Not Reportable 06/03/19 11:51 Hemoglobin C Crystals Not Reportable 06/03/19 11:51 Schistocytes Not Reportable 06/03/19 11:51 Malaria parasites Not Reportable 06/03/19 11:51 Elias Bodies Not Reportable 06/03/19 11:51 Hem Pathologist Commnt No 06/03/19 11:51 D-Dimer 4311.60 ng/mlDDU (0-234) H 06/03/19 11:51 VBG pH 6.901 (7.320-7.420) L* 06/03/19 11:51 Sodium 144 mmol/L (137-145) 06/03/19 11:51 Potassium 4.6 mmol/L (3.6-5.0) 06/03/19 11:51 Chloride 103.0 mmol/L (98-107) 06/03/19 11:51 Carbon Dioxide 4 mmol/L (22-30) L* 06/03/19 11:51 Anion Gap 42 mmol/L 06/03/19 11:51 BUN 41 mg/dL (7-17) H 06/03/19 11:51 Creatinine 1.8 mg/dL (0.7-1.2) H 06/03/19 11:51 Estimated GFR 36 ml/min 06/03/19 11:51 BUN/Creatinine Ratio 23 % 06/03/19 11:51 Glucose 636 mg/dL (65-100) H* 06/03/19 11:51 Lactic Acid 5.20 mmol/L (0.7-2.0) H* 06/03/19 12:34 Calcium 10.9 mg/dL (8.4-10.2) H 06/03/19 11:51 Phosphorus 11.70 mg/dL (2.5-4.5) H 06/03/19 11:15 Magnesium 4.40 mg/dL (1.7-2.3) H 06/03/19 11:15 Ferritin 1037.0 ng/mL (13.0-400.0) H 06/03/19 11:51 Total Bilirubin 0.20 mg/dL (0.1-1.2) 06/03/19 11:51 AST 43 units/L (5-40) H 06/03/19 11:51 ALT 32 units/L (7-56) 06/03/19 11:51 Alkaline Phosphatase 147 units/L (35-129) H 06/03/19 11:51 Lactate Dehydrogenase 673 units/L (91-180) H 06/03/19 11:51 Troponin T < 0.010 ng/mL (0.00-0.029) 06/03/19 11:51 C-Reactive Protein 14.70 mg/dL (0.00-1.30) H 06/03/19 11:51 Total Protein 8.9 g/dL (6.3-8.2) H 06/03/19 11:51 Albumin 4.3 g/dL (3.9-5) 06/03/19 11:51 Albumin/Globulin Ratio 0.9 % 06/03/19 11:51 Urine Color Yellow (Yellow) 06/03/19 11:48 Urine Turbidity Clear (Clear) 06/03/19 11:48 Urine pH 6.0 (5.0-7.0) 06/03/19 11:48 Ur Specific [place] 1.026 (1.003-1.030) 06/03/19 11:48 Urine Protein 100 mg/dl mg/dL (Negative) 06/03/19 11:48 Urine Glucose (UA) >=500 mg/dL (Negative) 06/03/19 11:48 Urine Ketones 80 mg/dL (Negative) 06/03/19 11:48 Urine Blood Mod (Negative) 06/03/19 11:48 Urine Nitrite Neg (Negative) 06/03/19 11:48 Urine Bilirubin Neg (Negative) 06/03/19 11:48 Urine Urobilinogen < 2.0 mg/dL (<2.0) 06/03/19 11:48 Ur Leukocyte Esterase Neg (Negative) 06/03/19 11:48 Urine WBC (Auto) 1.0 /HPF (0.0-6.0) 06/03/19 11:48 Urine RBC (Auto) 2.0 /HPF (0.0-6.0) 06/03/19 11:48 Granular Casts 4 /LPF 06/03/19 11:48 Urine Mucus Few /HPF 06/03/19 11:48 Urine HCG, Qual Negative (Negative) 06/03/19 11:48 Salicylates < 0.3 mg/dL (2.8-20.0) L 06/03/19 11:51 Urine Opiates Screen Presumptive negative 06/03/19 11:48 Urine Methadone Screen Presumptive negative 06/03/19 11:48 Acetaminophen < 5.0 ug/mL (10.0-30.0) L 06/03/19 11:51 Ur Barbiturates Screen Presumptive negative 06/03/19 11:48 Ur Phencyclidine Scrn Presumptive negative 06/03/19 11:48 Ur Amphetamines Screen Presumptive negative 06/03/19 11:48 U Benzodiazepines Scrn Presumptive negative 06/03/19 11:48 Urine Cocaine Screen Presumptive negative 06/03/19 11:48 U Marijuana (THC) Screen Presumptive negative 06/03/19 11:48 Drugs of Abuse Note Disclamer 06/03/19 11:48 Plasma/Serum Alcohol < 0.01 % (0-0.07) 06/03/19 11:51 Microbiology: Microbiology 06/03/19 Unknown Peripheral/Venous Blood Culture - Preliminary Culture in Progress 06/03/19 Unknown Peripheral/Venous Blood Culture - Preliminary Culture in Progress Alves/IV: IV Catheter Type [Right INT / Saline Lock Antecubital] Assessment and Plan Assessment and plan: Mrs. Tomas is a 48-year-old female with a history of hypertension, type 2 diabetes mellitus events with altered mental status. She arrived per EMS. Last known time normal 10 PM last night. Patient is nonverbal. History obtained from paramedics and electronic medical record. Patient had been ill with fever cough for the past several days. She recently returned back from [place]. EMS discovered patient to be altered with work of breathing. Patient is nonverbal. She was not moving her right side. She is hypoxic at 77% room air. Blood pressure was 140/97. Blood sugar was elevated fingerstick. Hx obtained from Mekhi Love realized that patient was not speaking 4 AM. Found her later breathing really heavy. Unresponsive. When she came back from [place] last Saturday. She had high fever. Her doctor ordered test for COVID-19. Dr. Rausch her PCP informed patient that she tested negative. She went to [place] to celebrate her mother's birthday. On admission she was noted to be in DKA and started on DKA protocol. She was also intubated and on full mechanical ventilatory support. Diagnostic work-up so far EKG shows sinus tachycardia with MAT CT head no acute intracranial process CT cervical spine patchy groundglass consolidative airspace disease right mid to lower lung Mrs. Tomas presents with altered mental status hypoxia. She required mechanical ventilation for oxygenation and airway control. Initially was not moving her right side. With oxygen supplementation she began to move both of her arms. She continued to be nonverbal. She did not follow commands prior to intubation. With CT chest findings and history of fever I strongly suspect COVID 19. Although she previously tested negative there is significant support of false negative test so we will retest. survey form was filled out in the ED by the ED physician through the [facility] as a person under investigation for COVID 19. Patient returned 1 week ago from [place] after celebrating her mother's birthday. Acute hypoxic respiratory failure mild on mechanical ventilation DKA Diabetes mellitus with uncontrolled blood sugar Acute metabolic encephalopathy Right upper extremity weakness now resolved Pneumonia Leukocytosis ? Paroxysmal atrial fibrillation likely new onset Sepsis secondary to pneumonia-with hypothermia Rule out COVID 19 Severe metabolic acidosis Plan Admit to in critical care unit Fire Captain and infectious disease consult DKA protocol with insulin f/u COVID test - pending Continue COVID isolation precautions per [facility] protocol Will likely be started on Plaquenil and azithromycin but will defer to ID physician Obtain serial Ferritin, LDH, D-Dimer, CRP every 48h Empiric antibiotic coverage, obtain blood cultures and urine cultures and sputum cultures. Wean from vent as tolerated defer to foreign exchange services manager We will monitor EKG for any visualization of the atrial fibrillation. If persist will obtain cardiology consult. DVT and GI prophylaxis The high probability of a clinically significant, sudden or life threatening deterioration of the [pulmonary, neuro,] system(s) required my full and direct attention, intervention and personal management. The aggregate critical care time was [75] minutes. This time is in addition to time spent performing reported procedures but includes the following: [x] Data Review and interpretation [x] Patient assessment and monitoring of vital signs [x] Documentation [x] Medication orders and management Advance Directives: Yes Plan of care discussed with patient/family: Yes
[2019-06-03 14:46] LABS: ABG Base Excess -26.1 mmol/L (-2.0-3.0); ABG HCO3 7.1 mmol/L (20.0-26.0); ABG Methemoglobin 0.8 % (0.0-1.5); ABG Oxygen Saturation 99.6 % (95.0-99.0); ABG PCO2 39.1 mm Hg
[2019-06-03 14:53] LABS: ABG PH 6.88 pH Units (7.350-7.450); ABG PO2 489.9 mm Hg (80.0-90.0)
[2019-06-03] MEDS: INSULIN REGULAR, HUMAN 100 UNITS in SODIUM CHLORIDE 0.9% 99 ML IV SCH (15:00)
[2019-06-03 15:12] LABS: Creatinine,Urine 37.4 mg/dL (0.1-20.0)
[2019-06-03 15:26] LABS: Microalbumin/Creatinine Ratio 1740.6 ug/mg
[2019-06-03] MEDS ORDERED: SODIUM CHLORIDE 0.9% 1000 ML 1,000 ML ONE (16:08)
[2019-06-03] MEDS ORDERED: HEPARIN 5,000 UNIT/1 ML VIAL ONE (16:08)
[2019-06-03] MEDS ORDERED: HYDROXYCHLOROQUINE 200 MG TAB ONE (16:09)
[2019-06-03] MEDS: HEPARIN 5,000 UNIT/1 ML VIAL SUB-Q SCH ×2 (16:30→23:59)
--- NOTE | 2019-06-03 16:57 | XRay Report ---
ABDOMEN 1 VIEW(S) INDICATION / CLINICAL INFORMATION: OG tube placement verification. COMPARISON: None available. FINDINGS: TUBES / LINES: NG tube tip at the distal stomach in satisfactory position. BOWEL GAS PATTERN: Mild gastric distention. The small and large bowel are not significantly dilated. ADDITIONAL FINDINGS: No significant additional findings. Signer Name: Desean Kwon MD Signed: 06/03/2019 4:53 PM Workstation Name: [id number]
--- NOTE | 2019-06-03 17:19 | Consultation ---
History of Present Illness Consult date: 06/03/19 Requesting physician: DAISY SWARTZ Reason for consult: other (Acute Hypoxemic Resp Failure; DKA) History of present illness: PULMONARY/CCM CONSULT NOTE (Full dictation # [id number]) Please see dictated notes for full details Medications and Allergies Allergies Allergy/AdvReac Type Severity Reaction Status Date / Time No Known Allergies Allergy Verified 01/05/15 09:29 Home Medications Medication Instructions Recorded Confirmed Last Taken Type Albuterol INH(or & Nicu Only) 2 puff IH QID PRN 03/13/14 01/05/15 01/04/15 History [ProAir HFA Inhaler] Metformin HCl [metFORMIN ER] 500 mg PO QDAY 03/13/14 01/05/15 01/04/15 History Glimepiride [Amaryl] 1 mg PO QAM 01/05/15 01/05/15 01/04/15 History Losartan/Hydrochlorothiazide 1 tab PO QDAY 01/05/15 01/05/15 01/04/15 History [Hyzaar 50-12.5 TAB] Simvastatin [Zocor TAB] 10 mg PO QHS 01/05/15 01/05/15 01/04/15 History Pantoprazole [Protonix TAB] 40 mg PO QDAY #30 tablet 01/06/15 Unknown Rx Cyclobenzaprine [Flexeril] 10 mg PO QHS PRN #30 tablet 07/04/18 Unknown Rx Ibuprofen [Motrin] 800 mg PO Q8HR #30 tablet 07/04/18 Unknown Rx Active Meds: Active Medications Albuterol (Proventil) 2.5 mg IH Q3HRT PRN PRN Reason: Shortness Of Breath Dextrose (D50w (25gm) Syringe) 50 ml IV Q30MIN PRN; Protocol PRN Reason: Hypoglycemia Heparin Sodium (Porcine) (Heparin) 5,000 unit SUB-Q Q12HR JOSE ROBERTO Hydrophilic Ointment (Vaseline Lip Therapy) 1 applic TP Q2HR PRN PRN Reason: Dry Lips Hydroxychloroquine Sulfate (Plaquenil) 400 mg PO BID JOSE ROBERTO Stop: 06/03/19 22:01 Hydroxychloroquine Sulfate (Plaquenil) 200 mg PO BID JOSE ROBERTO Stop: 06/07/19 22:01 Propofol (Diprivan 10 Mg/Ml) 1,000 mg in 100 mls @ 2.346 mls/hr IV TITR JOSE ROBERTO; Protocol Last Admin: 06/03/19 12:30 Dose: 5 mcg/kg/min, 2.346 mls/hr Documented by: Vancomycin HCl (Vancomycin/Ns 1 Gm/250 Ml) 1 gm in 250 mls @ 166.667 mls/hr IV Q24HR JOSE ROBERTO Insulin Human Regular 100 (units/ Sodium Chloride) 100 mls @ 1 mls/hr IV TITR JOSE ROBERTO; Protocol Cefepime HCl (Cefepime/Ns 2 Gm/100 Ml) 2 gm in 100 mls @ 200 mls/hr IV Q12HR JOSE ROBERTO; Protocol Sodium Chloride (Nacl 0.9% 1000 Ml) 1,000 mls @ 125 mls/hr IV DIRECT JOSE ROBERTO Insulin Human Regular 100 (units/ Sodium Chloride) 100 mls @ 1 mls/hr IV TITR JOSE ROBERTO; Protocol Last Admin: 06/03/19 15:00 Dose: 8 units/hr, 8 mls/hr Documented by: Insulin Human Lispro (Humalog) 0 unit SUB-Q Q6HR JOSE ROBERTO; Protocol Multi-Ingred Cream/Lotion/Oil/Oint (Artificial Tears Ophth Oint) 1 applic OU Q4HR PRN PRN Reason: Dry Eye(s) Senna (Senokot) 8.6 mg PO BID JOSE ROBERTO Sodium Chloride (Sodium Chloride Flush Syringe 10 Ml) 10 ml IV BID JOSE ROBERTO Sodium Chloride (Sodium Chloride Flush Syringe 10 Ml) 10 ml IV PRN PRN PRN Reason: LINE FLUSH Physical Examination Vital signs: Vital Signs Pulse BP Pulse Ox 107 H 110/83 97 06/03/19 11:18 06/03/19 11:18 06/03/19 11:18 Results - Laboratory Findings CBC and BMP: 06/03/19 11:51 06/03/19 21:32 ABG ABG pH 6.880 pH Units (7.350-7.450) L* 06/03/19 14:30 ABG pCO2 39.1 mm Hg 06/03/19 14:30 ABG pO2 489.9 mm Hg (80.0-90.0) H 06/03/19 14:30 ABG O2 Saturation 99.6 % (95.0-99.0) H 06/03/19 14:30 PT/INR, D-dimer D-Dimer 4311.60 ng/mlDDU (0-234) H 06/03/19 11:51 Abnormal lab findings: Abnormal Labs 06/03/19 06/03/19 06/03/19 11:15 11:48 11:51 WBC 23.3 H RBC 6.43 H Hgb 17.7 H Hct 59.9 H* RDW 17.1 H Seg Neuts % (Manual) 71.0 H Lymphocytes % (Manual) 11.0 L Monocytes % (Manual) 8.0 H Seg Neutrophils # Man 16.5 H Monocytes # (Manual) 1.9 H D-Dimer ABG pH ABG pO2 ABG HCO3 ABG O2 Saturation ABG Base Excess ABG Hemoglobin VBG pH Carbon Dioxide BUN Creatinine Glucose Hemoglobin A1c Lactic Acid Calcium Phosphorus 11.70 H Magnesium 4.40 H Ferritin AST Alkaline Phosphatase Lactate Dehydrogenase C-Reactive Protein Total Protein Urine Creatinine 37.4 H Urine Microalbumin 65.1 H Salicylates Acetaminophen 06/03/19 06/03/19 06/03/19 11:51 11:51 11:51 WBC RBC Hgb Hct RDW Seg Neuts % (Manual) Lymphocytes % (Manual) Monocytes % (Manual) Seg Neutrophils # Man Monocytes # (Manual) D-Dimer ABG pH ABG pO2 ABG HCO3 ABG O2 Saturation ABG Base Excess ABG Hemoglobin VBG pH Carbon Dioxide 4 L* BUN 41 H Creatinine 1.8 H Glucose 636 H* Hemoglobin A1c Lactic Acid 3.20 H* Calcium 10.9 H Phosphorus Magnesium Ferritin AST 43 H Alkaline Phosphatase 147 H Lactate Dehydrogenase 673 H C-Reactive Protein 14.70 H Total Protein 8.9 H Urine Creatinine Urine Microalbumin Salicylates < 0.3 L Acetaminophen 06/03/19 06/03/19 06/03/19 11:51 11:51 11:51 WBC RBC Hgb Hct RDW Seg Neuts % (Manual) Lymphocytes % (Manual) Monocytes % (Manual) Seg Neutrophils # Man Monocytes # (Manual) D-Dimer 4311.60 H ABG pH ABG pO2 ABG HCO3 ABG O2 Saturation ABG Base Excess ABG Hemoglobin VBG pH 6.901 L* Carbon Dioxide BUN Creatinine Glucose Hemoglobin A1c Lactic Acid Calcium Phosphorus Magnesium Ferritin AST Alkaline Phosphatase Lactate Dehydrogenase C-Reactive Protein Total Protein Urine Creatinine Urine Microalbumin Salicylates Acetaminophen < 5.0 L 06/03/19 06/03/19 06/03/19 11:51 12:34 14:30 WBC RBC Hgb Hct RDW Seg Neuts % (Manual) Lymphocytes % (Manual) Monocytes % (Manual) Seg Neutrophils # Man Monocytes # (Manual) D-Dimer ABG pH 6.880 L* ABG pO2 489.9 H ABG HCO3 7.1 L ABG O2 Saturation 99.6 H ABG Base Excess -26.1 L ABG Hemoglobin 16.2 H VBG pH Carbon Dioxide BUN Creatinine Glucose Hemoglobin A1c Lactic Acid 5.20 H* Calcium Phosphorus Magnesium Ferritin 1037.0 H AST Alkaline Phosphatase Lactate Dehydrogenase C-Reactive Protein Total Protein Urine Creatinine Urine Microalbumin Salicylates Acetaminophen 06/03/19 16:03 WBC RBC Hgb Hct RDW Seg Neuts % (Manual) Lymphocytes % (Manual) Monocytes % (Manual) Seg Neutrophils # Man Monocytes # (Manual) D-Dimer ABG pH ABG pO2 ABG HCO3 ABG O2 Saturation ABG Base Excess ABG Hemoglobin VBG pH Carbon Dioxide BUN Creatinine Glucose Hemoglobin A1c 9.6 H Lactic Acid Calcium Phosphorus Magnesium Ferritin AST Alkaline Phosphatase Lactate Dehydrogenase C-Reactive Protein Total Protein Urine Creatinine Urine Microalbumin Salicylates Acetaminophen
[2019-06-03] MEDS: HYDROXYCHLOROQUINE 200 MG TAB PO SCH ×2 (17:45→23:17)
[2019-06-03 18:05] LABS: BUN/Creatinine Ratio TNR; Blood Urea Nitrogen TNR mg/dL (7-17); Calcium TNR mg/dL (8.4-10.2)
[2019-06-03 18:06] LABS: Hemolysis Index TNR
[2019-06-03 18:40] LABS: ABG HCO3 5.5 mmol/L (20.0-26.0); ABG Methemoglobin 0.6 % (0.0-1.5); ABG PO2 97.2 mm Hg (80.0-90.0)
[2019-06-03 18:54] LABS: ABG PH 7.057 pH Units (7.350-7.450)
[2019-06-03 19:27] LABS: Albumin 3.7 g/dL (3.9-5); Calcium 9.4 mg/dL (8.4-10.2)
[2019-06-03] MEDS ORDERED: D5W/0.45% NACL/KCL 20 MEQ 20 MEQ/1,000 ML BAG IV ONE (19:28)
[2019-06-03 19:52] LABS: Chol/HDL Ratio 5.43 %; HDL Cholesterol 46 mg/dL (40-59); LDL Cholesterol,Direct TNR mg/dL (50-130)
[2019-06-03 20:43] LABS: Calcium 9.8 mg/dL (8.4-10.2)
[2019-06-03] MEDS ORDERED: D5W/0.45% NACL/KCL 40 MEQ 40 MEQ/1,000 ML BAG IV SCH (21:00)
[2019-06-03 21:39] LABS: ABG Base Excess -20.5 mmol/L (-2.0-3.0); ABG HCO3 5.2 mmol/L (20.0-26.0); ABG Methemoglobin 0.6 % (0.0-1.5); ABG Oxygen Saturation 97.2 % (95.0-99.0); ABG PCO2 14.5 mm Hg; ABG PO2 107.2 mm Hg (80.0-90.0)
[2019-06-03] MEDS ORDERED: MIDAZOLAM 5 MG/5 ML INJ MDV IV ONE (22:04)
[2019-06-03 22:05] LABS: BUN/Creatinine Ratio 34; Blood Urea Nitrogen 24 mg/dL (7-17); Hemolysis Index 17
[2019-06-03 22:19] LABS: ABG PH 7.172 pH Units (7.350-7.450)
[2019-06-03 22:43] LABS: Calcium 5.8 mg/dL (8.4-10.2)
[2019-06-03] MEDS: CEFEPIME/NS 2 GM/100 ML 2 GM/100 ML BAG IV SCH (23:16)
[2019-06-03] MEDS: SENNOSIDES 8.6 MG TAB PO SCH (23:16)
[2019-06-03] MEDS: SODIUM BICARBONATE IV SCH (23:54)
[2019-06-03] MEDS: DEXTROSE 5% IV SCH (23:54)
[2019-06-03] MEDS: POTASSIUM CHLORIDE IV SCH (23:54)
[2019-06-03] MEDS: WATER IV SCH (23:54)
[2019-06-04 00:15] LABS: BUN/Creatinine Ratio 70; Blood Urea Nitrogen 14 mg/dL (7-17); Hemolysis Index 12
[2019-06-04 00:37] LABS: Calcium 3.1 mg/dL (8.4-10.2)
--- NOTE | 2019-06-04 01:35 | Consultation ---
PULMONARY CRITICAL CARE CONSULTATION CONSULTING PHYSICIAN: Jg Calvillo MD REASON FOR CONSULTATION: Acute hypoxemic respiratory failure, on mechanical ventilatory support; diabetic ketoacidosis; acute encephalopathy; severe metabolic acidosis. CHIEF COMPLAINT AND HISTORY OF PRESENT ILLNESS: The patient is a 48-year-old -[place] female with past medical history significant amongst other things for a diagnosis of hypertension, type 2 diabetes, brought into the ER with EMS, last known normal time a few hours prior at 10:00 p.m. last night. She had been ill with fever and cough for the past several days, recently returned from [place]. EMS found her with altered mental status, increased work of breathing. She was hypoxemic, 77% O2 sats on room air. Her doctor reportedly ordered a COVID-[address] Rausch her PCP informed the patient that she had tested negative. In the Emergency Room, she was evaluated. She ultimately decompensated, required rapid sequence intubation and was placed on the mechanical ventilator, was asked to assist with management. When I stopped by to see her, she was on the mechanical ventilator, completely encephalopathic, not following commands. She was not on any vasopressors at that time. I do not have any history of vomiting or overt aspiration. Tobacco use/abuse history is unknown, but she was described as a never smoker in the records. The above is as much of the history of presentation as I have. PAST MEDICAL HISTORY: Hypertension, diabetes, asthma and neuropathy. PAST SURGICAL HISTORY: She has had a fibroidectomy. MEDICATIONS: She was on at the time I stopped by to see were reviewed. Pertinent medications include the following: She was on p.r.n. albuterol nebulizer treatments 2.5 mg q. 3 hours p.r.n. shortness of breath; heparin 5000 units subcutaneous q. 12 hours; Plaquenil had been started 400 mg p.o. b.i.d. and then to transition to 200 mg p.o. b.i.d. after day 4, I believe; Propofol was actually going at 5 mcg per kilogram per minute; vancomycin 1 gram IV q. 24 hours; cefepime 2 g IV q. 12 hours; insulin drip was going at 8 units per hour and Senokot 8.6 mg p.o. b.i.d. ALLERGIES: No known drug allergies. DIET: Well-built lady and acute weight loss or gain history is unknown. FAMILY AND SOCIAL HISTORY: Apparently lives in the community, never smoker. She is . Alcohol and illicit drug use or abuse history is unknown. Family history is otherwise unknown. REVIEW OF SYSTEMS: Unable to obtain secondary to the patient's medical and mental condition since she has been in the ER. No gross hematochezia or melena. No gross hematuria. No hematemesis. No bloody tracheal secretions. No witnessed seizures. Review of systems otherwise as in the body of history above or unobtainable. PHYSICAL EXAMINATION: VITAL SIGNS: On examination at presentation in the Emergency Room, she was hypothermic, temperature 90.9 degrees Fahrenheit rectally, pulse 107, respiratory rate 20, blood pressure 110/83, O2 sats were 97%, inspired oxygen concentration at that time was not recorded. When I stopped by to see her, O2 sats were 98% that was on the assist control mode of ventilation, tidal volume 450, rate of 20, PEEP of 10 on 100% FiO2. GENERAL: She is a middle-aged -[place] female, normocephalic, intubated on the mechanical ventilator with mild patient ventilator dyssynchrony. HEAD, EYES, EARS, NOSE AND THROAT: She was anicteric. No conjunctival erythema. OROPHARYNX: ET tube was taped at the lips around 23 cm. NECK: No gross jugular venous distention, no thyromegaly. Grossly, there were no palpable lymph nodes in the supraclavicular or submandibular lymph node chains. LUNGS: Auscultation of both lung douglas revealed bilateral rales, basilar predominant, no wheezing. HEART: Heart sounds 1 and 2 were heard. They were regular in rate and rhythm at the time of my evaluation without overt rubs or murmurs. She was tachycardic. Appeared to be an SVT. ABDOMEN: Soft. Bowel sounds are positive, nontender, no palpable hepatosplenomegaly. EXTREMITIES: Without digital clubbing, cyanosis, no pedal edema. Pedal pulses were 2+ bilaterally. NEUROLOGIC: She was sedated, but she was near obtunded prior to intubation. According to the records, she has minimal spontaneous movements to her extremities on the left and the right side to noxious stimuli. Pupils are equal, round, about 2 mm, reactive to light. Extraocular muscle movements could not be assessed. SKIN: Normal turgor without overt cellulitis or rash. Please see the wound care nurse's notes for full description of her skin. PSYCHIATRIC: Her mood and affect were essentially flat. LABORATORY DATA: From my review are as follows: Admission white cell count 23,300 with a hemoglobin of 17.7, hematocrit of 60 and a platelet count of 325, 5% band forms on the manual differential. D-dimer was elevated 4311. Arterial blood gas at presentation showed a pH of 6.88, pCO2 of 39, pO2 of 490 on the above-mentioned settings. That was on 100% FiO2. Serum sodium was 144, potassium 4.6, chloride 103, bicarbonate was 4, BUN was 41, creatinine was 1.8, glucose was 636. Lactic acid level was 3.2, went up to 5.2. Calcium 10.9, phosphorus 11.7, AST 43, ALT within normal limits. Troponin within normal limits. CRP 14.7. Urinalysis was negative for nitrites and leukocyte esterase. Urine drug screen was presumptive negative. Alcohol, Tylenol and aspirin levels were nondetectable. Rapid influenza screen A and B were negative. Two sets of blood cultures have been sent, no growth to date. Chest x-ray shows ET tube with the tip at the level of the clavicular heads about 4-5 cm above the cecil. Faint bibasilar infiltrates without overt consolidative change. No significant pleural effusions. No pneumothorax that I can see. Other testing: A CT scan of the head was also done. I have reviewed the radiologist's interpretation. No acute intracranial process. A CT of the chest was also done. I am trying to pull up the films. I have reviewed the radiologist's interpretation. It shows patchy bilateral ground glass opacifications, to a lesser degree consolidative changes within the right mid to lower lungs. The mediastinal windows do not reveal significant mediastinal adenopathy. I should mention it was a noncontrast film. In the lung windows, there was motion artifact. She has bilateral GGOs involving the right side greater than the left upper lobes, mostly GGOs both bases showing air bronchograms and consolidative change. Certainly could not rule out an aspiration, but has bilateral disease. ASSESSMENT: 1. Acute hypoxemic respiratory failure, on mechanical ventilatory support. 2. Bilateral pneumonia, possible aspiration. 3. History of possible exposure to COVID-19, rule out COVID-19 infection. 4. Diabetic ketoacidosis. 5. Severe metabolic acidosis. 6. Severe sepsis with acute encephalopathy and hypothermia. 7. Acute toxic metabolic encephalopathy. 8. Leukocytosis. 9. Hemoconcentration. 10. Elevated serum D-dimer. 11. Acute kidney injury. 12. Elevated serum transaminase. PLAN: I do agree with isolating her as a rule out person under investigation for COVID-19 infection. Empiric Plaquenil therapy will be tried. We will keep an eye on her QT interval and liver function tests. We will follow the 10-day protocol except modified by the Infectious Disease team. We will continue to treat her with broad-spectrum anti-infective therapy. I will increase the minute ventilation on the mechanical ventilator for respiratory compensation of this severe metabolic acidosis. I will increase tidal volume to 600 and set rate to 30. We will follow the serum bicarbonate and repeat the ABG in another 3-4 hours. At that time, a decision will be made as to whether we should start bicarbonate supplementation otherwise. Ventilator-associated pneumonia bundle has been introduced including aspiration precautions, bronchodilators will be on a p.r.n. basis as well as routine pulmonary hygiene per the respiratory therapies. Anti-infectives will be deescalated based on results of clinical and microbiologic data. Mariusz Hugger will be ordered to help rewarm her. Nephrology consultation and Infectious Disease consultation will be at the behest of the attending physician. She will remain n.p.o. for now. Electrolytes will be followed per the DKA protocol and corrected as necessary. We will trend her lactic acid levels. She is appropriately on DVT prophylaxis. She will be placed on GI prophylaxis. Flu and pneumonia vaccination will be addressed per protocol. Thank you very much for the consult. We will follow along. We will make further recommendations as picture progresses/becomes clearer. She is critically ill on life-sustaining interventions including mechanical ventilatory support at high risk of from cardiopulmonary and endocrine system deterioration. At this time, I spent about 40 minutes of critical care time without overlap excluding any procedural time that may be necessary. JOB# [id number] LAWSON/MARY ASHRAF
[2019-06-04 02:16] LABS: BUN/Creatinine Ratio 28; Blood Urea Nitrogen 31 mg/dL (7-17); Calcium 10.1 mg/dL (8.4-10.2); Hemolysis Index 253
[2019-06-04] MEDS ORDERED: SODIUM CHLORIDE 0.9% 1000 ML 1,000 ML IV SCH (03:30)
[2019-06-04] MEDS: INSULIN REGULAR, HUMAN 100 UNITS in SODIUM CHLORIDE 0.9% 99 ML IV SCH ×2 (05:03→21:36)
[2019-06-04 05:21] LABS: ABG HCO3 12.9 mmol/L (20.0-26.0); ABG Methemoglobin 0.6 % (0.0-1.5); ABG Oxygen Saturation 96.7 % (95.0-99.0); ABG PCO2 19.5 mm Hg; ABG PH 7.438 pH Units (7.350-7.450); ABG PO2 76.5 mm Hg (80.0-90.0)
--- NOTE | 2019-06-04 05:41 | XRay Report ---
CHEST 1 VIEW 4:58 AM INDICATION / CLINICAL INFORMATION: Follow-up respiratory failure. COMPARISON: Yesterday. FINDINGS: SUPPORT DEVICES: The positions of the endotracheal and nasogastric tubes have not changed. HEART / MEDIASTINUM: The heart size and pulmonary vasculature are normal. LUNGS / PLEURA: Patchy parenchymal disease in both lower lung zones has improved. No pneumothorax. ADDITIONAL FINDINGS: No significant additional findings. IMPRESSION: Improving parenchymal disease in both lower lung zones. Signer Name: Tommy Pringle MD Signed: 06/04/2019 5:37 AM Workstation Name: [id number]
[2019-06-04 07:17] LABS: Hematocrit 46.1 % (30.3-42.9); Hemoglobin 15.3 gm/dl (10.1-14.3); Mean Corpuscular HGB Conc 33 % (30-34); Mean Corpuscular Volume 83 fl (79-97); Platelet Count 258 K/mm3 (140-440); Red Blood Count 5.54 M/mm3 (3.65-5.03); Red Cell Distribution Width 15.1 % (13.2-15.2)
[2019-06-04 07:38] LABS: BUN/Creatinine Ratio 33; Blood Urea Nitrogen 26 mg/dL (7-17); Calcium 10.1 mg/dL (8.4-10.2); Hemolysis Index 16
[2019-06-04 07:42] LABS: Alanine Aminotransferase 22 units/L (7-56); Albumin 2.9 g/dL (3.9-5); BUN/Creatinine Ratio 31; Blood Urea Nitrogen 25 mg/dL (7-17); Calcium 10.1 mg/dL (8.4-10.2); Hemolysis Index 9
[2019-06-04] MEDS: INSULIN LISPRO 100 UNIT/ML SUB-Q SCH ×3 (08:10→17:23)
--- NOTE | 2019-06-04 08:22 | Consultation ---
History of Present Illness - Reason for Consult Consult date: 06/04/19 Suspect COVID Requesting physician: CHELE DAVID - History of Present Illness 48 years old female with history of diabetes, hypertension admitted on 06/03/2019 due to acute altered mental status and shortness of breath. Her found her unresponsive with heavy breathing. Patient was brought by EMS. Per patient's she has been having cough and fever for several days. Patient recently returned back from [place] where she went to celebrate her mother's birthday. She returned on 05/29/2019. Patient is currently intubated, unable to obtain a history. On arrival, temperature 98, HR 107. Patient was immediately intubated. Initial WBC 23. Hemoglobin 17. Glucose 636. Lactate 3.2. Creatinine 1.8. A1c 9. Ferritin 1037. CRP 14. CT of the chest shows patchy bilateral groundglass opacity. Review of Systems: Unable to obtain patient currently intubated Past History Past Medical History: diabetes, hypertension, hyperlipidemia Past Surgical History: No surgical history Social history: no significant social history, lives with family, full code Family history: no significant family history Medications and Allergies Allergies Allergy/AdvReac Type Severity Reaction Status Date / Time No Known Allergies Allergy Verified 01/05/15 09:29 Home Medications Medication Instructions Recorded Confirmed Last Taken Type Albuterol INH(or & Nicu Only) 2 puff IH QID PRN 03/13/14 01/05/15 01/04/15 History [ProAir HFA Inhaler] Metformin HCl [metFORMIN ER] 500 mg PO QDAY 03/13/14 01/05/15 01/04/15 History Glimepiride [Amaryl] 1 mg PO QAM 01/05/15 01/05/15 01/04/15 History Losartan/Hydrochlorothiazide 1 tab PO QDAY 01/05/15 01/05/15 01/04/15 History [Hyzaar 50-12.5 TAB] Simvastatin [Zocor TAB] 10 mg PO QHS 01/05/15 01/05/15 01/04/15 History Pantoprazole [Protonix TAB] 40 mg PO QDAY #30 tablet 01/06/15 Unknown Rx Cyclobenzaprine [Flexeril] 10 mg PO QHS PRN #30 tablet 07/04/18 Unknown Rx Ibuprofen [Motrin] 800 mg PO Q8HR #30 tablet 07/04/18 Unknown Rx Active Meds: Active Medications Albuterol (Proventil) 2.5 mg IH Q3HRT PRN PRN Reason: Shortness Of Breath Dextrose (D50w (25gm) Syringe) 50 ml IV Q30MIN PRN; Protocol PRN Reason: Hypoglycemia Famotidine (Pepcid) 20 mg IV BID JOSE ROBERTO Heparin Sodium (Porcine) (Heparin) 5,000 unit SUB-Q Q12HR JOSE ROBERTO Last Admin: 06/03/19 23:59 Dose: 5,000 unit Documented by: Hydrophilic Ointment (Vaseline Lip Therapy) 1 applic TP Q2HR PRN PRN Reason: Dry Lips Hydroxychloroquine Sulfate (Plaquenil) 200 mg PO BID JOSE ROBERTO Stop: 06/07/19 22:01 Propofol (Diprivan 10 Mg/Ml) 1,000 mg in 100 mls @ 2.346 mls/hr IV TITR JOSE ROBERTO; Protocol Last Admin: 06/03/19 12:30 Dose: 5 mcg/kg/min, 2.346 mls/hr Documented by: Vancomycin HCl (Vancomycin/Ns 1 Gm/250 Ml) 1 gm in 250 mls @ 166.667 mls/hr IV Q24HR JOSE ROBERTO Cefepime HCl (Cefepime/Ns 2 Gm/100 Ml) 2 gm in 100 mls @ 200 mls/hr IV Q12HR JOSE ROBERTO; Protocol Last Admin: 06/03/19 23:16 Dose: 200 mls/hr Documented by: Insulin Human Regular 100 (units/ Sodium Chloride) 100 mls @ 1 mls/hr IV TITR JOSE ROBERTO; Protocol Last Titration: 06/04/19 07:06 Dose: 8 units/hr, 8 mls/hr Documented by: Sodium Bicarbonate 150 meq/Potassium Chloride 20 meq/Dextrose 1,160 mls @ 150 mls/hr IV DIRECT JOSE ROBERTO Last Admin: 06/03/19 23:54 Dose: 150 mls/hr Documented by: Sodium Chloride (Nacl 0.9% 1000 Ml) 1,000 mls @ 75 mls/hr IV DIRECT JOSE ROBERTO Last Admin: 06/04/19 03:22 Dose: 75 mls/hr Documented by: Potassium Chloride (Kcl 10meq/100ml) 10 meq in 100 mls @ 100 mls/hr IV Q1H JOSE ROBERTO Stop: 06/04/19 16:59 Insulin Human Lispro (Humalog) 0 unit SUB-Q Q6HR [facility]; Protocol Last Admin: 06/04/19 08:10 Dose: Not Given Documented by: Multi-Ingred Cream/Lotion/Oil/Oint (Artificial Tears Ophth Oint) 1 applic OU Q4HR PRN PRN Reason: Dry Eye(s) Pneumococcal Polyvalent Vaccine (Pneumovax 23) 0.5 ml IM .ONCE ONE Stop: 06/04/19 12:01 Senna (Senokot) 8.6 mg PO BID [facility] Last Admin: 06/03/19 23:16 Dose: 8.6 mg Documented by: Sodium Chloride (Sodium Chloride Flush Syringe 10 Ml) 10 ml IV BID [facility] Last Admin: 06/04/19 08:10 Dose: Not Given Documented by: Sodium Chloride (Sodium Chloride Flush Syringe 10 Ml) 10 ml IV PRN PRN PRN Reason: LINE FLUSH Physical Examination - Physical Exam Narrative exam: Exam performed in conjunction with nursings staff due to lack of PPE General appearance: Alert in NAD Eyes: limited due to lack of PPE HENT: Atraumatic; oropharynx limited due to lack of PPE Lungs: Diminished bilateral per RT CV: RRR Abdomen: limited due to lack of PPE Extremities: limited due to lack of PPE Skin: No rash. Psych: Appropriate affect, alert and oriented to person, place and time. Neuro: alert and oriented x 3. Moving all extermities - Constitutional Vitals: Vital Signs Temp Pulse Resp BP Pulse Ox 98.6 F 111 H 30 H 110/76 96 06/04/19 08:00 06/04/19 07:30 06/04/19 07:30 06/04/19 07:30 06/04/19 07:30 Temperature -Last 24 Hours Temperature 98.6 F Temperature 98.4 F Temperature 97.8 F Temperature 97.6 F Temperature 91.1 F Temperature 90.9 F Results - Labs CBC & Chem 7: 06/04/19 07:00 06/04/19 07:00 Labs: Abnormal lab results 06/03/19 06/03/19 06/03/19 Range/Units 10:59 11:15 11:48 WBC (4.5-11.0) K/mm3 RBC (3.65-5.03) M/mm3 Hgb (10.1-14.3) gm/dl Hct (30.3-42.9) % RDW (13.2-15.2) % Seg Neuts % (Manual) (40.0-70.0) % Lymphocytes % (Manual) (13.4-35.0) % Monocytes % (Manual) (0.0-7.3) % Seg Neutrophils # Man (1.8-7.7) K/mm3 Monocytes # (Manual) (0.0-0.8) K/mm3 D-Dimer (0-234) ng/mlDDU ABG pH (7.350-7.450) pH Units ABG pO2 (80.0-90.0) mm Hg ABG HCO3 (20.0-26.0) mmol/L ABG O2 Saturation (95.0-99.0) % ABG Base Excess (-2.0-3.0) mmol/L ABG Hemoglobin (12.0-16.0) gm/dl VBG pH (7.320-7.420) Oxyhemoglobin (95.0-99.0) % Sodium (137-145) mmol/L Potassium (3.6-5.0) mmol/L Chloride (98-107) mmol/L Carbon Dioxide (22-30) mmol/L BUN (7-17) mg/dL Creatinine (0.7-1.2) mg/dL Glucose (65-100) mg/dL POC Glucose 372 H (70-105) Hemoglobin A1c (4-6) % Lactic Acid (0.7-2.0) mmol/L Calcium (8.4-10.2) mg/dL Phosphorus 11.70 H (2.5-4.5) mg/dL Magnesium 4.40 H (1.7-2.3) mg/dL Ferritin (13.0-400.0) ng/mL AST (5-40) units/L Alkaline Phosphatase (35-129) units/L Lactate Dehydrogenase (91-180) units/L C-Reactive Protein (0.00-1.30) mg/dL Total Protein (6.3-8.2) g/dL Albumin (3.9-5) g/dL Triglycerides (2-149) mg/dL Cholesterol (50-199) mg/dL Urine Creatinine 37.4 H (0.1-20.0) mg/dL Urine Microalbumin 65.1 H (0.1-34.0) mg/dL Salicylates (2.8-20.0) mg/dL Acetaminophen (10.0-30.0) ug/mL 06/03/19 06/03/19 06/03/19 Range/Units 11:51 11:51 11:51 WBC 23.3 H (4.5-11.0) K/mm3 RBC 6.43 H (3.65-5.03) M/mm3 Hgb 17.7 H (10.1-14.3) gm/dl Hct 59.9 H* (30.3-42.9) % RDW 17.1 H (13.2-15.2) % Seg Neuts % (Manual) 71.0 H (40.0-70.0) % Lymphocytes % (Manual) 11.0 L (13.4-35.0) % Monocytes % (Manual) 8.0 H (0.0-7.3) % Seg Neutrophils # Man 16.5 H (1.8-7.7) K/mm3 Monocytes # (Manual) 1.9 H (0.0-0.8) K/mm3 D-Dimer (0-234) ng/mlDDU ABG pH (7.350-7.450) pH Units ABG pO2 (80.0-90.0) mm Hg ABG HCO3 (20.0-26.0) mmol/L ABG O2 Saturation (95.0-99.0) % ABG Base Excess (-2.0-3.0) mmol/L ABG Hemoglobin (12.0-16.0) gm/dl VBG pH (7.320-7.420) Oxyhemoglobin (95.0-99.0) % Sodium (137-145) mmol/L Potassium (3.6-5.0) mmol/L Chloride (98-107) mmol/L Carbon Dioxide 4 L* (22-30) mmol/L BUN 41 H (7-17) mg/dL Creatinine 1.8 H (0.7-1.2) mg/dL Glucose 636 H* (65-100) mg/dL POC Glucose (70-105) Hemoglobin A1c (4-6) % Lactic Acid 3.20 H* (0.7-2.0) mmol/L Calcium 10.9 H (8.4-10.2) mg/dL Phosphorus (2.5-4.5) mg/dL Magnesium (1.7-2.3) mg/dL Ferritin (13.0-400.0) ng/mL AST 43 H (5-40) units/L Alkaline Phosphatase 147 H (35-129) units/L Lactate Dehydrogenase 673 H (91-180) units/L C-Reactive Protein 14.70 H (0.00-1.30) mg/dL Total Protein 8.9 H (6.3-8.2) g/dL Albumin (3.9-5) g/dL Triglycerides (2-149) mg/dL Cholesterol (50-199) mg/dL Urine Creatinine (0.1-20.0) mg/dL Urine Microalbumin (0.1-34.0) mg/dL Salicylates (2.8-20.0) mg/dL Acetaminophen (10.0-30.0) ug/mL 06/03/19 06/03/19 06/03/19 Range/Units 11:51 11:51 11:51 WBC (4.5-11.0) K/mm3 RBC (3.65-5.03) M/mm3 Hgb (10.1-14.3) gm/dl Hct (30.3-42.9) % RDW (13.2-15.2) % Seg Neuts % (Manual) (40.0-70.0) % Lymphocytes % (Manual) (13.4-35.0) % Monocytes % (Manual) (0.0-7.3) % Seg Neutrophils # Man (1.8-7.7) K/mm3 Monocytes # (Manual) (0.0-0.8) K/mm3 D-Dimer (0-234) ng/mlDDU ABG pH (7.350-7.450) pH Units ABG pO2 (80.0-90.0) mm Hg ABG HCO3 (20.0-26.0) mmol/L ABG O2 Saturation (95.0-99.0) % ABG Base Excess (-2.0-3.0) mmol/L ABG Hemoglobin (12.0-16.0) gm/dl VBG pH 6.901 L* (7.320-7.420) Oxyhemoglobin (95.0-99.0) % Sodium (137-145) mmol/L Potassium (3.6-5.0) mmol/L Chloride (98-107) mmol/L Carbon Dioxide (22-30) mmol/L BUN (7-17) mg/dL Creatinine (0.7-1.2) mg/dL Glucose (65-100) mg/dL POC Glucose (70-105) Hemoglobin A1c (4-6) % Lactic Acid (0.7-2.0) mmol/L Calcium (8.4-10.2) mg/dL Phosphorus (2.5-4.5) mg/dL Magnesium (1.7-2.3) mg/dL Ferritin (13.0-400.0) ng/mL AST (5-40) units/L Alkaline Phosphatase (35-129) units/L Lactate Dehydrogenase (91-180) units/L C-Reactive Protein (0.00-1.30) mg/dL Total Protein (6.3-8.2) g/dL Albumin (3.9-5) g/dL Triglycerides (2-149) mg/dL Cholesterol (50-199) mg/dL Urine Creatinine (0.1-20.0) mg/dL Urine Microalbumin (0.1-34.0) mg/dL Salicylates < 0.3 L (2.8-20.0) mg/dL Acetaminophen < 5.0 L (10.0-30.0) ug/mL 06/03/19 06/03/19 06/03/19 Range/Units 11:51 11:51 12:34 WBC (4.5-11.0) K/mm3 RBC (3.65-5.03) M/mm3 Hgb (10.1-14.3) gm/dl Hct (30.3-42.9) % RDW (13.2-15.2) % Seg Neuts % (Manual) (40.0-70.0) % Lymphocytes % (Manual) (13.4-35.0) % Monocytes % (Manual) (0.0-7.3) % Seg Neutrophils # Man (1.8-7.7) K/mm3 Monocytes # (Manual) (0.0-0.8) K/mm3 D-Dimer 4311.60 H (0-234) ng/mlDDU ABG pH (7.350-7.450) pH Units ABG pO2 (80.0-90.0) mm Hg ABG HCO3 (20.0-26.0) mmol/L ABG O2 Saturation (95.0-99.0) % ABG Base Excess (-2.0-3.0) mmol/L ABG Hemoglobin (12.0-16.0) gm/dl VBG pH (7.320-7.420) Oxyhemoglobin (95.0-99.0) % Sodium (137-145) mmol/L Potassium (3.6-5.0) mmol/L Chloride (98-107) mmol/L Carbon Dioxide (22-30) mmol/L BUN (7-17) mg/dL Creatinine (0.7-1.2) mg/dL Glucose (65-100) mg/dL POC Glucose (70-105) Hemoglobin A1c (4-6) % Lactic Acid 5.20 H* (0.7-2.0) mmol/L Calcium (8.4-10.2) mg/dL Phosphorus (2.5-4.5) mg/dL Magnesium (1.7-2.3) mg/dL Ferritin 1037.0 H (13.0-400.0) ng/mL AST (5-40) units/L Alkaline Phosphatase (35-129) units/L Lactate Dehydrogenase (91-180) units/L C-Reactive Protein (0.00-1.30) mg/dL Total Protein (6.3-8.2) g/dL Albumin (3.9-5) g/dL Triglycerides (2-149) mg/dL Cholesterol (50-199) mg/dL Urine Creatinine (0.1-20.0) mg/dL Urine Microalbumin (0.1-34.0) mg/dL Salicylates (2.8-20.0) mg/dL Acetaminophen (10.0-30.0) ug/mL 06/03/19 06/03/19 06/03/19 Range/Units 14:30 16:03 17:00 WBC (4.5-11.0) K/mm3 RBC (3.65-5.03) M/mm3 Hgb (10.1-14.3) gm/dl Hct (30.3-42.9) % RDW (13.2-15.2) % Seg Neuts % (Manual) (40.0-70.0) % Lymphocytes % (Manual) (13.4-35.0) % Monocytes % (Manual) (0.0-7.3) % Seg Neutrophils # Man (1.8-7.7) K/mm3 Monocytes # (Manual) (0.0-0.8) K/mm3 D-Dimer (0-234) ng/mlDDU ABG pH 6.880 L* (7.350-7.450) pH Units ABG pO2 489.9 H (80.0-90.0) mm Hg ABG HCO3 7.1 L (20.0-26.0) mmol/L ABG O2 Saturation 99.6 H (95.0-99.0) % ABG Base Excess -26.1 L (-2.0-3.0) mmol/L ABG Hemoglobin 16.2 H (12.0-16.0) gm/dl VBG pH (7.320-7.420) Oxyhemoglobin (95.0-99.0) % Sodium (137-145) mmol/L Potassium (3.6-5.0) mmol/L Chloride (98-107) mmol/L Carbon Dioxide (22-30) mmol/L BUN (7-17) mg/dL Creatinine (0.7-1.2) mg/dL Glucose (65-100) mg/dL POC Glucose 335 H (70-105) Hemoglobin A1c 9.6 H (4-6) % Lactic Acid (0.7-2.0) mmol/L Calcium (8.4-10.2) mg/dL Phosphorus (2.5-4.5) mg/dL Magnesium (1.7-2.3) mg/dL Ferritin (13.0-400.0) ng/mL AST (5-40) units/L Alkaline Phosphatase (35-129) units/L Lactate Dehydrogenase (91-180) units/L C-Reactive Protein (0.00-1.30) mg/dL Total Protein (6.3-8.2) g/dL Albumin (3.9-5) g/dL Triglycerides (2-149) mg/dL Cholesterol (50-199) mg/dL Urine Creatinine (0.1-20.0) mg/dL Urine Microalbumin (0.1-34.0) mg/dL Salicylates (2.8-20.0) mg/dL Acetaminophen (10.0-30.0) ug/mL 06/03/19 06/03/19 06/03/19 Range/Units 18:14 18:24 19:00 WBC (4.5-11.0) K/mm3 RBC (3.65-5.03) M/mm3 Hgb (10.1-14.3) gm/dl Hct (30.3-42.9) % RDW (13.2-15.2) % Seg Neuts % (Manual) (40.0-70.0) % Lymphocytes % (Manual) (13.4-35.0) % Monocytes % (Manual) (0.0-7.3) % Seg Neutrophils # Man (1.8-7.7) K/mm3 Monocytes # (Manual) (0.0-0.8) K/mm3 D-Dimer (0-234) ng/mlDDU ABG pH 7.057 L* (7.350-7.450) pH Units ABG pO2 97.2 H (80.0-90.0) mm Hg ABG HCO3 5.5 L (20.0-26.0) mmol/L ABG O2 Saturation (95.0-99.0) % ABG Base Excess -23.0 L (-2.0-3.0) mmol/L ABG Hemoglobin 18.1 H (12.0-16.0) gm/dl VBG pH (7.320-7.420) Oxyhemoglobin 94.4 L (95.0-99.0) % Sodium (137-145) mmol/L Potassium (3.6-5.0) mmol/L Chloride (98-107) mmol/L Carbon Dioxide (22-30) mmol/L BUN (7-17) mg/dL Creatinine (0.7-1.2) mg/dL Glucose (65-100) mg/dL POC Glucose 285 H (70-105) Hemoglobin A1c (4-6) % Lactic Acid 3.40 H* (0.7-2.0) mmol/L Calcium (8.4-10.2) mg/dL Phosphorus (2.5-4.5) mg/dL Magnesium (1.7-2.3) mg/dL Ferritin (13.0-400.0) ng/mL AST (5-40) units/L Alkaline Phosphatase (35-129) units/L Lactate Dehydrogenase (91-180) units/L C-Reactive Protein (0.00-1.30) mg/dL Total Protein (6.3-8.2) g/dL Albumin (3.9-5) g/dL Triglycerides (2-149) mg/dL Cholesterol (50-199) mg/dL Urine Creatinine (0.1-20.0) mg/dL Urine Microalbumin (0.1-34.0) mg/dL Salicylates (2.8-20.0) mg/dL Acetaminophen (10.0-30.0) ug/mL 06/03/19 06/03/19 06/03/19 Range/Units 19:00 19:00 19:52 WBC (4.5-11.0) K/mm3 RBC (3.65-5.03) M/mm3 Hgb (10.1-14.3) gm/dl Hct (30.3-42.9) % RDW (13.2-15.2) % Seg Neuts % (Manual) (40.0-70.0) % Lymphocytes % (Manual) (13.4-35.0) % Monocytes % (Manual) (0.0-7.3) % Seg Neutrophils # Man (1.8-7.7) K/mm3 Monocytes # (Manual) (0.0-0.8) K/mm3 D-Dimer (0-234) ng/mlDDU ABG pH (7.350-7.450) pH Units ABG pO2 (80.0-90.0) mm Hg ABG HCO3 (20.0-26.0) mmol/L ABG O2 Saturation (95.0-99.0) % ABG Base Excess (-2.0-3.0) mmol/L ABG Hemoglobin (12.0-16.0) gm/dl VBG pH (7.320-7.420) Oxyhemoglobin (95.0-99.0) % Sodium 151 H (137-145) mmol/L Potassium (3.6-5.0) mmol/L Chloride 120.8 H (98-107) mmol/L Carbon Dioxide 6 L* (22-30) mmol/L BUN 33 H (7-17) mg/dL Creatinine 1.4 H (0.7-1.2) mg/dL Glucose 339 H (65-100) mg/dL POC Glucose 316 H (70-105) Hemoglobin A1c (4-6) % Lactic Acid (0.7-2.0) mmol/L Calcium (8.4-10.2) mg/dL Phosphorus (2.5-4.5) mg/dL Magnesium (1.7-2.3) mg/dL Ferritin (13.0-400.0) ng/mL AST 47 H (5-40) units/L Alkaline Phosphatase 130 H (35-129) units/L Lactate Dehydrogenase (91-180) units/L C-Reactive Protein (0.00-1.30) mg/dL Total Protein (6.3-8.2) g/dL Albumin 3.7 L (3.9-5) g/dL Triglycerides 424 H (2-149) mg/dL Cholesterol 250 H (50-199) mg/dL Urine Creatinine (0.1-20.0) mg/dL Urine Microalbumin (0.1-34.0) mg/dL Salicylates (2.8-20.0) mg/dL Acetaminophen (10.0-30.0) ug/mL 06/03/19 06/03/19 06/03/19 Range/Units 20:21 20:21 21:01 WBC (4.5-11.0) K/mm3 RBC (3.65-5.03) M/mm3 Hgb (10.1-14.3) gm/dl Hct (30.3-42.9) % RDW (13.2-15.2) % Seg Neuts % (Manual) (40.0-70.0) % Lymphocytes % (Manual) (13.4-35.0) % Monocytes % (Manual) (0.0-7.3) % Seg Neutrophils # Man (1.8-7.7) K/mm3 Monocytes # (Manual) (0.0-0.8) K/mm3 D-Dimer (0-234) ng/mlDDU ABG pH (7.350-7.450) pH Units ABG pO2 (80.0-90.0) mm Hg ABG HCO3 (20.0-26.0) mmol/L ABG O2 Saturation (95.0-99.0) % ABG Base Excess (-2.0-3.0) mmol/L ABG Hemoglobin (12.0-16.0) gm/dl VBG pH (7.320-7.420) Oxyhemoglobin (95.0-99.0) % Sodium 153 H (137-145) mmol/L Potassium (3.6-5.0) mmol/L Chloride 121.8 H (98-107) mmol/L Carbon Dioxide 6 L* (22-30) mmol/L BUN 34 H (7-17) mg/dL Creatinine 1.3 H (0.7-1.2) mg/dL Glucose 324 H (65-100) mg/dL POC Glucose 245 H (70-105) Hemoglobin A1c (4-6) % Lactic Acid 3.10 H* (0.7-2.0) mmol/L Calcium (8.4-10.2) mg/dL Phosphorus (2.5-4.5) mg/dL Magnesium (1.7-2.3) mg/dL Ferritin (13.0-400.0) ng/mL AST (5-40) units/L Alkaline Phosphatase (35-129) units/L Lactate Dehydrogenase (91-180) units/L C-Reactive Protein (0.00-1.30) mg/dL Total Protein (6.3-8.2) g/dL Albumin (3.9-5) g/dL Triglycerides (2-149) mg/dL Cholesterol (50-199) mg/dL Urine Creatinine (0.1-20.0) mg/dL Urine Microalbumin (0.1-34.0) mg/dL Salicylates (2.8-20.0) mg/dL Acetaminophen (10.0-30.0) ug/mL 06/03/19 06/03/19 06/03/19 Range/Units 21:25 21:32 22:42 WBC (4.5-11.0) K/mm3 RBC (3.65-5.03) M/mm3 Hgb (10.1-14.3) gm/dl Hct (30.3-42.9) % RDW (13.2-15.2) % Seg Neuts % (Manual) (40.0-70.0) % Lymphocytes % (Manual) (13.4-35.0) % Monocytes % (Manual) (0.0-7.3) % Seg Neutrophils # Man (1.8-7.7) K/mm3 Monocytes # (Manual) (0.0-0.8) K/mm3 D-Dimer (0-234) ng/mlDDU ABG pH 7.172 L* (7.350-7.450) pH Units ABG pO2 107.2 H (80.0-90.0) mm Hg ABG HCO3 5.2 L (20.0-26.0) mmol/L ABG O2 Saturation (95.0-99.0) % ABG Base Excess -20.5 L (-2.0-3.0) mmol/L ABG Hemoglobin 17.3 H (12.0-16.0) gm/dl VBG pH (7.320-7.420) Oxyhemoglobin (95.0-99.0) % Sodium 155 H (137-145) mmol/L Potassium 2.6 L* D (3.6-5.0) mmol/L Chloride 130.1 H (98-107) mmol/L Carbon Dioxide 5 L* (22-30) mmol/L BUN 24 H (7-17) mg/dL Creatinine (0.7-1.2) mg/dL Glucose 212 H (65-100) mg/dL POC Glucose 225 H (70-105) Hemoglobin A1c (4-6) % Lactic Acid (0.7-2.0) mmol/L Calcium 5.8 L* D (8.4-10.2) mg/dL Phosphorus (2.5-4.5) mg/dL Magnesium (1.7-2.3) mg/dL Ferritin (13.0-400.0) ng/mL AST (5-40) units/L Alkaline Phosphatase (35-129) units/L Lactate Dehydrogenase (91-180) units/L C-Reactive Protein (0.00-1.30) mg/dL Total Protein (6.3-8.2) g/dL Albumin (3.9-5) g/dL Triglycerides (2-149) mg/dL Cholesterol (50-199) mg/dL Urine Creatinine (0.1-20.0) mg/dL Urine Microalbumin (0.1-34.0) mg/dL Salicylates (2.8-20.0) mg/dL Acetaminophen (10.0-30.0) ug/mL 06/03/19 06/04/19 06/04/19 Range/Units 23:32 00:04 01:25 WBC (4.5-11.0) K/mm3 RBC (3.65-5.03) M/mm3 Hgb (10.1-14.3) gm/dl Hct (30.3-42.9) % RDW (13.2-15.2) % Seg Neuts % (Manual) (40.0-70.0) % Lymphocytes % (Manual) (13.4-35.0) % Monocytes % (Manual) (0.0-7.3) % Seg Neutrophils # Man (1.8-7.7) K/mm3 Monocytes # (Manual) (0.0-0.8) K/mm3 D-Dimer (0-234) ng/mlDDU ABG pH (7.350-7.450) pH Units ABG pO2 (80.0-90.0) mm Hg ABG HCO3 (20.0-26.0) mmol/L ABG O2 Saturation (95.0-99.0) % ABG Base Excess (-2.0-3.0) mmol/L ABG Hemoglobin (12.0-16.0) gm/dl VBG pH (7.320-7.420) Oxyhemoglobin (95.0-99.0) % Sodium 151 H 151 H (137-145) mmol/L Potassium 1.5 L* D (3.6-5.0) mmol/L Chloride 139.0 H 124.7 H (98-107) mmol/L Carbon Dioxide 3 L* 9 L* (22-30) mmol/L BUN 31 H (7-17) mg/dL Creatinine 0.2 L D (0.7-1.2) mg/dL Glucose 117 H 241 H (65-100) mg/dL POC Glucose 231 H (70-105) Hemoglobin A1c (4-6) % Lactic Acid (0.7-2.0) mmol/L Calcium 3.1 L* D (8.4-10.2) mg/dL Phosphorus (2.5-4.5) mg/dL Magnesium (1.7-2.3) mg/dL Ferritin (13.0-400.0) ng/mL AST (5-40) units/L Alkaline Phosphatase (35-129) units/L Lactate Dehydrogenase (91-180) units/L C-Reactive Protein (0.00-1.30) mg/dL Total Protein (6.3-8.2) g/dL Albumin (3.9-5) g/dL Triglycerides (2-149) mg/dL Cholesterol (50-199) mg/dL Urine Creatinine (0.1-20.0) mg/dL Urine Microalbumin (0.1-34.0) mg/dL Salicylates (2.8-20.0) mg/dL Acetaminophen (10.0-30.0) ug/mL 06/04/19 06/04/19 06/04/19 Range/Units 01:34 02:45 03:21 WBC (4.5-11.0) K/mm3 RBC (3.65-5.03) M/mm3 Hgb (10.1-14.3) gm/dl Hct (30.3-42.9) % RDW (13.2-15.2) % Seg Neuts % (Manual) (40.0-70.0) % Lymphocytes % (Manual) (13.4-35.0) % Monocytes % (Manual) (0.0-7.3) % Seg Neutrophils # Man (1.8-7.7) K/mm3 Monocytes # (Manual) (0.0-0.8) K/mm3 D-Dimer (0-234) ng/mlDDU ABG pH (7.350-7.450) pH Units ABG pO2 (80.0-90.0) mm Hg ABG HCO3 (20.0-26.0) mmol/L ABG O2 Saturation (95.0-99.0) % ABG Base Excess (-2.0-3.0) mmol/L ABG Hemoglobin (12.0-16.0) gm/dl VBG pH (7.320-7.420) Oxyhemoglobin (95.0-99.0) % Sodium (137-145) mmol/L Potassium (3.6-5.0) mmol/L Chloride (98-107) mmol/L Carbon Dioxide (22-30) mmol/L BUN (7-17) mg/dL Creatinine (0.7-1.2) mg/dL Glucose (65-100) mg/dL POC Glucose 194 H 189 H 183 H (70-105) Hemoglobin A1c (4-6) % Lactic Acid (0.7-2.0) mmol/L Calcium (8.4-10.2) mg/dL Phosphorus (2.5-4.5) mg/dL Magnesium (1.7-2.3) mg/dL Ferritin (13.0-400.0) ng/mL AST (5-40) units/L Alkaline Phosphatase (35-129) units/L Lactate Dehydrogenase (91-180) units/L C-Reactive Protein (0.00-1.30) mg/dL Total Protein (6.3-8.2) g/dL Albumin (3.9-5) g/dL Triglycerides (2-149) mg/dL Cholesterol (50-199) mg/dL Urine Creatinine (0.1-20.0) mg/dL Urine Microalbumin (0.1-34.0) mg/dL Salicylates (2.8-20.0) mg/dL Acetaminophen (10.0-30.0) ug/mL 06/04/19 06/04/19 06/04/19 Range/Units 04:50 05:07 06:27 WBC (4.5-11.0) K/mm3 RBC (3.65-5.03) M/mm3 Hgb (10.1-14.3) gm/dl Hct (30.3-42.9) % RDW (13.2-15.2) % Seg Neuts % (Manual) (40.0-70.0) % Lymphocytes % (Manual) (13.4-35.0) % Monocytes % (Manual) (0.0-7.3) % Seg Neutrophils # Man (1.8-7.7) K/mm3 Monocytes # (Manual) (0.0-0.8) K/mm3 D-Dimer (0-234) ng/mlDDU ABG pH (7.350-7.450) pH Units ABG pO2 76.5 L (80.0-90.0) mm Hg ABG HCO3 12.9 L (20.0-26.0) mmol/L ABG O2 Saturation (95.0-99.0) % ABG Base Excess -9.0 L (-2.0-3.0) mmol/L ABG Hemoglobin (12.0-16.0) gm/dl VBG pH (7.320-7.420) Oxyhemoglobin (95.0-99.0) % Sodium (137-145) mmol/L Potassium (3.6-5.0) mmol/L Chloride (98-107) mmol/L Carbon Dioxide (22-30) mmol/L BUN (7-17) mg/dL Creatinine (0.7-1.2) mg/dL Glucose (65-100) mg/dL POC Glucose 200 H 164 H (70-105) Hemoglobin A1c (4-6) % Lactic Acid (0.7-2.0) mmol/L Calcium (8.4-10.2) mg/dL Phosphorus (2.5-4.5) mg/dL Magnesium (1.7-2.3) mg/dL Ferritin (13.0-400.0) ng/mL AST (5-40) units/L Alkaline Phosphatase (35-129) units/L Lactate Dehydrogenase (91-180) units/L C-Reactive Protein (0.00-1.30) mg/dL Total Protein (6.3-8.2) g/dL Albumin (3.9-5) g/dL Triglycerides (2-149) mg/dL Cholesterol (50-199) mg/dL Urine Creatinine (0.1-20.0) mg/dL Urine Microalbumin (0.1-34.0) mg/dL Salicylates (2.8-20.0) mg/dL Acetaminophen (10.0-30.0) ug/mL 06/04/19 06/04/19 06/04/19 Range/Units 07:00 07:00 07:00 WBC 13.4 H (4.5-11.0) K/mm3 RBC 5.54 H (3.65-5.03) M/mm3 Hgb 15.3 H (10.1-14.3) gm/dl Hct 46.1 H D (30.3-42.9) % RDW (13.2-15.2) % Seg Neuts % (Manual) (40.0-70.0) % Lymphocytes % (Manual) (13.4-35.0) % Monocytes % (Manual) (0.0-7.3) % Seg Neutrophils # Man (1.8-7.7) K/mm3 Monocytes # (Manual) (0.0-0.8) K/mm3 D-Dimer (0-234) ng/mlDDU ABG pH (7.350-7.450) pH Units ABG pO2 (80.0-90.0) mm Hg ABG HCO3 (20.0-26.0) mmol/L ABG O2 Saturation (95.0-99.0) % ABG Base Excess (-2.0-3.0) mmol/L ABG Hemoglobin (12.0-16.0) gm/dl VBG pH (7.320-7.420) Oxyhemoglobin (95.0-99.0) % Sodium 158 H 156 H (137-145) mmol/L Potassium 2.7 L* D 2.6 L* (3.6-5.0) mmol/L Chloride 124.3 H 123.5 H (98-107) mmol/L Carbon Dioxide 11 L 11 L (22-30) mmol/L BUN 25 H 26 H (7-17) mg/dL Creatinine (0.7-1.2) mg/dL Glucose 192 H 190 H (65-100) mg/dL POC Glucose (70-105) Hemoglobin A1c (4-6) % Lactic Acid (0.7-2.0) mmol/L Calcium (8.4-10.2) mg/dL Phosphorus (2.5-4.5) mg/dL Magnesium (1.7-2.3) mg/dL Ferritin (13.0-400.0) ng/mL AST 43 H (5-40) units/L Alkaline Phosphatase (35-129) units/L Lactate Dehydrogenase 590 H (91-180) units/L C-Reactive Protein 22.70 H (0.00-1.30) mg/dL Total Protein (6.3-8.2) g/dL Albumin 2.9 L (3.9-5) g/dL Triglycerides (2-149) mg/dL Cholesterol (50-199) mg/dL Urine Creatinine (0.1-20.0) mg/dL Urine Microalbumin (0.1-34.0) mg/dL Salicylates (2.8-20.0) mg/dL Acetaminophen (10.0-30.0) ug/mL 06/04/19 06/04/19 Range/Units 07:00 07:14 WBC (4.5-11.0) K/mm3 RBC (3.65-5.03) M/mm3 Hgb (10.1-14.3) gm/dl Hct (30.3-42.9) % RDW (13.2-15.2) % Seg Neuts % (Manual) (40.0-70.0) % Lymphocytes % (Manual) (13.4-35.0) % Monocytes % (Manual) (0.0-7.3) % Seg Neutrophils # Man (1.8-7.7) K/mm3 Monocytes # (Manual) (0.0-0.8) K/mm3 D-Dimer (0-234) ng/mlDDU ABG pH (7.350-7.450) pH Units ABG pO2 (80.0-90.0) mm Hg ABG HCO3 (20.0-26.0) mmol/L ABG O2 Saturation (95.0-99.0) % ABG Base Excess (-2.0-3.0) mmol/L ABG Hemoglobin (12.0-16.0) gm/dl VBG pH (7.320-7.420) Oxyhemoglobin (95.0-99.0) % Sodium (137-145) mmol/L Potassium (3.6-5.0) mmol/L Chloride (98-107) mmol/L Carbon Dioxide (22-30) mmol/L BUN (7-17) mg/dL Creatinine (0.7-1.2) mg/dL Glucose (65-100) mg/dL POC Glucose 176 H (70-105) Hemoglobin A1c (4-6) % Lactic Acid (0.7-2.0) mmol/L Calcium (8.4-10.2) mg/dL Phosphorus (2.5-4.5) mg/dL Magnesium (1.7-2.3) mg/dL Ferritin 941.3 H (13.0-400.0) ng/mL AST (5-40) units/L Alkaline Phosphatase (35-129) units/L Lactate Dehydrogenase (91-180) units/L C-Reactive Protein (0.00-1.30) mg/dL Total Protein (6.3-8.2) g/dL Albumin (3.9-5) g/dL Triglycerides (2-149) mg/dL Cholesterol (50-199) mg/dL Urine Creatinine (0.1-20.0) mg/dL Urine Microalbumin (0.1-34.0) mg/dL Salicylates (2.8-20.0) mg/dL Acetaminophen (10.0-30.0) ug/mL Assessment and Plan Cultures: Blood culture 06/03/2019 pending Assessment: #Severe sepsis MODS: Present on admission with hypothermia, leukocytosis, elevated lactate and SHARITA; likely due to bilateral pneumonia +/-DKA #Bilateral pneumonia: high suspicion for severe COVID pneumonia. Transmission likely from community recent travel to [place]. COVID test pending. Risk for ARDS is high. Ferritin at1,037. Other possibilities aspiration pneumonia. #Acute hypoxemic respiratory failure: intubated #Acute encephalopathy: Likely due to #1 #SHARITA: Renally adjust antibiotics, improving #Diabetes with DKA Recommendations: Obtain procalcitonin Continue COVID isolation precautions per [facility] protocol Follow-up COVID testing Check serial Ferritin, LDH, D-Dimer, CRP every 48 hour I agree with hydroxychloroquine 400 mg PO BID for 1 day then 200 mg PO BID for 4 days (total 5 days) Continue cefepime and vancomycin renally adjusted Check MRSA PCR Will add metronidazole 500 g IV every 8h to cover aspiration pneumonia Daily EKG QT monitoring - stop plaqenil if QT interval >500 High risk mortality Will follow Kerrie Garcia MD Infectious Diseases Line [employer] ([facility] M [phone] O [phone]
[2019-06-04] MEDS ORDERED: HYDROXYCHLOROQUINE 200 MG PO SCH (10:00)
[2019-06-04] MEDS: CEFEPIME/NS 2 GM/100 ML 2 GM/100 ML BAG IV SCH ×2 (10:01→21:47)
[2019-06-04] MEDS: POTASSIUM CHLORIDE 10 MEQ 10 MEQ/100 ML BAG IV SCH ×8 (10:01→23:17)
[2019-06-04] MEDS: VANCOMYCIN/NS 1 GM/250 ML 1 GM/250 ML BAG IV SCH (10:03)
[2019-06-04] MEDS: HYDROXYCHLOROQUINE 200 MG TAB PO SCH ×2 (10:06→21:46)
[2019-06-04] MEDS: SENNOSIDES 8.6 MG TAB PO SCH ×2 (10:06→21:47)
[2019-06-04] MEDS: FAMOTIDINE 20 MG/2 ML INJ IV SCH ×2 (10:06→21:47)
[2019-06-04] MEDS: HEPARIN 5,000 UNIT/1 ML VIAL SUB-Q SCH ×2 (10:06→21:47)
[2019-06-04] MEDS: metroNIDAZOLE/NS 500 MG/100 ML 500 MG/100 ML BAG IV SCH ×3 (10:12→21:48)
[2019-06-04] MEDS: POTASSIUM CHLORIDE IV SCH ×2 (11:33→21:36)
[2019-06-04] MEDS: WATER IV SCH ×2 (11:33→21:36)
[2019-06-04] MEDS: DEXTROSE 5% IV SCH ×2 (11:33→21:36)
[2019-06-04] MEDS: SODIUM BICARBONATE IV SCH ×2 (11:33→21:36)
[2019-06-04 11:37] LABS: Hepatitis B Surface Antigen Non-Reactive (Negative); Hepatitis C Virus Antibody Non-Reactive (NonReactive)
[2019-06-04 11:45] LABS: Band Neutrophils # (Manual) 2.7 K/mm3; Basophils % (Manual) 0 % (0.0-1.8); Eosinophils % (Manual) 0 % (0.0-4.3); Platelet Estimate Consistent w Auto; RBC Morphology Normal; Total Cells Counted 100
[2019-06-04] MEDS ORDERED: PNEUMOCOCCAL 23 Valent 0.5 ML VIAL IM ONE (12:00)
[2019-06-04] MEDS ORDERED: FLU VACC QUAD 2019-20 (3 YR UP)/PF 60 MCG/0.5 ML SYRINGE IM ONE (12:00)
--- NOTE | 2019-06-04 14:22 | Progress Note ---
Assessment and Plan Sepsis secondary to pneumonia-with hypothermia Acute hypoxic respiratory failure , orally intubated on mechanical ventilation PUI-COVID 19 DKA Diabetes mellitus with uncontrolled blood sugar Acute metabolic encephalopathy Pneumonia Leukocytosis Paroxysmal atrial fibrillation likely new onset Severe metabolic acidosis Hypernatremia Hypokalemia Oropharyngeal dysphagia, OGT in place -Continue with MVS, Lung protective strategies, monitor airway pressures Decrease tidal volumes to 350ml, monitor acid-base -VAP bundle addressed -Continue aspiration precautions, HOB>40 -Continue daily assessment for readiness for SBT, SAT in am -Start enteric nutritional support once anion gap has normalized - Monitor glycemic control, with target blood glucose 140-180 mg/dL while critically ill. -Continue insulin infusion until AG normalizes then transition to weight based/basal bolus insulin. -Avoid hypoglycemia - Continue to wean supplemental oxygen for target O2 sat's > 90% -Replace potassium, has severe hypokalemia. Goal to keep Potassium 4 and Magnesium 2 to optimize respiratory muscel function -ABG and CXR in am -Continue to trend leukocytosis -VTE prophylaxis on heparin -Discontinue Alves catheter -Stress ulcer prophylaxis- Famotidine -Continue to avoid nephrotoxins, adjust all medications fro CrCL and GFR -Follow up BMP and CBC in the morning - Continue bronchodilators with pulmonary hygiene - Continue prn analgesia per CPOT score - Continue to maintain of sleep-wake cycle, avoid delirium - PT/OT/ROM exercises - Continue mobility protocol and skin assessment per protocol for pressure ulcer prevention -Influenza and pneumonia vaccinations to be administered today - continue other care per attending / other consultants CONDITION: CRITICAL PROGNOSIS: GUARDED CODE STATUS: FULL CODE The high probability of a clinically significant, sudden or life threatening deterioration of the [pulmonary, neurology, endocrine,] system(s) required my full and direct attention, intervention and personal management. The aggregate critical care time was [31] minutes. This time is in addition to time spent p erforming reported procedures but includes the following: [x] Data Review and interpretation [x] Patient assessment and monitoring of vital signs [x] Documentation [x] Medication orders and management Subjective Date of service: 06/04/19 Interval history: Follow up for: Acute hypoxemic respiratory failure;DKA; Acute metabolic encephalopathy;Sepsis;fevers; SHARITA; Seen and examined. Vitals, labs, medications, chart and imaging reviewed. Resting in bed on full mechanical ventilatory support; ETT at 21 cm at the lip. Currently on AC-VC 30/600/6/455 abg 7.39/37/133/21.7 On bicarbonate infusion, Propofol with restrains in place Alves catheter with good urine ouput, no fevers overnight Currently on Vancomycin , Cefepime, Flagyl. OGT in place- NPO Objective Vital Signs - 12hr 06/04/19 06/04/19 06/04/19 04:00 04:36 05:00 Temperature 98.4 F Pulse Rate 110 H 110 H Respiratory 33 H 30 H Rate Blood Pressure 122/76 O2 Sat by Pulse 98 98 97 Oximetry 06/04/19 06/04/19 06/04/19 05:10 05:20 05:30 Temperature Pulse Rate 106 H 108 H 110 H Respiratory 30 H 30 H 30 H Rate Blood Pressure 110/77 106/76 O2 Sat by Pulse 98 98 98 Oximetry 06/04/19 06/04/19 06/04/19 05:40 05:50 06:00 Temperature Pulse Rate 111 H 111 H 112 H Respiratory 30 H 30 H 30 H Rate Blood Pressure 110/77 108/72 125/76 O2 Sat by Pulse 97 98 98 Oximetry 06/04/19 06/04/19 06/04/19 06:10 06:20 06:30 Temperature Pulse Rate 113 H 114 H 114 H Respiratory 30 H 30 H 30 H Rate Blood Pressure 108/72 137/89 121/75 O2 Sat by Pulse 98 96 97 Oximetry 06/04/19 06/04/19 06/04/19 06:40 06:50 07:00 Temperature Pulse Rate 115 H 108 H 108 H Respiratory 31 H 30 H 30 H Rate Blood Pressure 137/89 143/89 105/66 O2 Sat by Pulse 98 98 97 Oximetry 06/04/19 06/04/19 06/04/19 07:10 07:20 07:30 Temperature Pulse Rate 107 H 111 H 120 H Respiratory 30 H 30 H 30 H Rate Blood Pressure 143/89 102/70 110/76 O2 Sat by Pulse 96 96 96 Oximetry 06/04/19 06/04/19 06/04/19 07:40 07:50 08:00 Temperature 98.6 F Pulse Rate 115 H 115 H 116 H Respiratory 30 H 30 H 30 H Rate Blood Pressure 105/66 122/76 122/75 O2 Sat by Pulse 97 97 96 Oximetry 06/04/19 06/04/19 06/04/19 08:10 08:20 08:30 Temperature Pulse Rate 117 H 119 H 119 H Respiratory 30 H 30 H 30 H Rate Blood Pressure 122/76 111/77 120/75 O2 Sat by Pulse 97 96 97 Oximetry 06/04/19 06/04/19 06/04/19 08:40 08:50 09:00 Temperature Pulse Rate 119 H 116 H 117 H Respiratory 30 H 30 H 31 H Rate Blood Pressure 122/75 127/77 130/80 O2 Sat by Pulse 98 97 98 Oximetry 06/04/19 06/04/19 06/04/19 09:10 09:20 09:30 Temperature Pulse Rate 117 H 115 H 114 H Respiratory 30 H 30 H 30 H Rate Blood Pressure 127/77 117/75 109/74 O2 Sat by Pulse 98 98 99 Oximetry 06/04/19 06/04/19 06/04/19 09:40 09:50 10:00 Temperature Pulse Rate 119 H 118 H 116 H Respiratory 30 H 30 H 30 H Rate Blood Pressure 130/80 128/81 118/74 O2 Sat by Pulse 97 98 98 Oximetry 06/04/19 06/04/19 06/04/19 10:10 10:20 10:25 Temperature Pulse Rate 114 H 111 H 107 H Respiratory 30 H 30 H Rate Blood Pressure 118/74 110/79 105/71 O2 Sat by Pulse 98 98 97 Oximetry 06/04/19 06/04/19 06/04/19 10:30 10:40 10:50 Temperature Pulse Rate 114 H 113 H 111 H Respiratory 31 H 30 H 30 H Rate Blood Pressure 126/77 126/77 121/79 O2 Sat by Pulse 98 98 98 Oximetry 06/04/19 06/04/19 06/04/19 11:00 11:10 11:20 Temperature Pulse Rate 108 H 105 H 111 H Respiratory 30 H 30 H 30 H Rate Blood Pressure 107/77 107/77 108/74 O2 Sat by Pulse 98 97 97 Oximetry 06/04/19 06/04/19 06/04/19 11:30 11:40 11:50 Temperature Pulse Rate 106 H 110 H 108 H Respiratory 30 H 30 H 30 H Rate Blood Pressure 110/75 110/75 126/76 O2 Sat by Pulse 98 98 98 Oximetry 06/04/19 06/04/19 06/04/19 12:00 12:10 12:20 Temperature 98.7 F Pulse Rate 112 H 111 H 110 H Respiratory 30 H 30 H 30 H Rate Blood Pressure 121/78 121/78 107/72 O2 Sat by Pulse 98 98 98 Oximetry 06/04/19 06/04/19 06/04/19 12:30 12:40 12:56 Temperature Pulse Rate 109 H 107 H 116 H Respiratory 30 H 30 H Rate Blood Pressure 105/71 105/71 138/83 O2 Sat by Pulse 97 97 97 Oximetry Constitutional: no acute distress, asleep, other (Atraumatic, normocephalic, no patietn -ventilator dys-synchrony) Eyes: non-icteric ENT: other (OGT in place, ETT in palce) Neck: supple, no lymphadenopathy, no JVD Effort: normal Ascultation: Bilateral: clear, diminished breath sounds Cardiovascular: irregular rhythm, other (S1,S2, no murmurs) Gastrointestinal: normoactive bowel sounds, soft, non-tender, tender Integumentary: normal Neurologic: unable to assess (sedated) Psychiatric: other (sedated) CBC and BMP: 06/04/19 07:00 06/04/19 15:06 ABG, PT/INR, D-dimer: ABG ABG pH 7.438 pH Units (7.350-7.450) 06/04/19 04:50 ABG pCO2 19.5 mm Hg 06/04/19 04:50 ABG pO2 76.5 mm Hg (80.0-90.0) L 06/04/19 04:50 ABG O2 Saturation 96.7 % (95.0-99.0) 06/04/19 04:50 PT/INR, D-dimer D-Dimer 2050.33 ng/mlDDU (0-234) H 06/04/19 07:00 Abnormal lab findings: Abnormal Labs 06/03/19 06/03/19 06/03/19 10:59 11:15 11:48 WBC RBC Hgb Hct RDW Seg Neuts % (Manual) Lymphocytes % (Manual) Monocytes % (Manual) Seg Neutrophils # Man Lymphocytes # (Manual) Monocytes # (Manual) D-Dimer ABG pH ABG pO2 ABG HCO3 ABG O2 Saturation ABG Base Excess ABG Hemoglobin VBG pH Oxyhemoglobin Sodium Potassium Chloride Carbon Dioxide BUN Creatinine Glucose POC Glucose 372 H Hemoglobin A1c Lactic Acid Calcium Phosphorus 11.70 H Magnesium 4.40 H Ferritin AST Alkaline Phosphatase Lactate Dehydrogenase C-Reactive Protein Total Protein Albumin Triglycerides Cholesterol Urine Creatinine 37.4 H Urine Microalbumin 65.1 H Salicylates Acetaminophen 06/03/19 06/03/19 06/03/19 11:51 11:51 11:51 WBC 23.3 H RBC 6.43 H Hgb 17.7 H Hct 59.9 H* RDW 17.1 H Seg Neuts % (Manual) 71.0 H Lymphocytes % (Manual) 11.0 L Monocytes % (Manual) 8.0 H Seg Neutrophils # Man 16.5 H Lymphocytes # (Manual) Monocytes # (Manual) 1.9 H D-Dimer ABG pH ABG pO2 ABG HCO3 ABG O2 Saturation ABG Base Excess ABG Hemoglobin VBG pH Oxyhemoglobin Sodium Potassium Chloride Carbon Dioxide 4 L* BUN 41 H Creatinine 1.8 H Glucose 636 H* POC Glucose Hemoglobin A1c Lactic Acid 3.20 H* Calcium 10.9 H Phosphorus Magnesium Ferritin AST 43 H Alkaline Phosphatase 147 H Lactate Dehydrogenase 673 H C-Reactive Protein 14.70 H Total Protein 8.9 H Albumin Triglycerides Cholesterol Urine Creatinine Urine Microalbumin Salicylates Acetaminophen 06/03/19 06/03/19 06/03/19 11:51 11:51 11:51 WBC RBC Hgb Hct RDW Seg Neuts % (Manual) Lymphocytes % (Manual) Monocytes % (Manual) Seg Neutrophils # Man Lymphocytes # (Manual) Monocytes # (Manual) D-Dimer ABG pH ABG pO2 ABG HCO3 ABG O2 Saturation ABG Base Excess ABG Hemoglobin VBG pH 6.901 L* Oxyhemoglobin Sodium Potassium Chloride Carbon Dioxide BUN Creatinine Glucose POC Glucose Hemoglobin A1c Lactic Acid Calcium Phosphorus Magnesium Ferritin AST Alkaline Phosphatase Lactate Dehydrogenase C-Reactive Protein Total Protein Albumin Triglycerides Cholesterol Urine Creatinine Urine Microalbumin Salicylates < 0.3 L Acetaminophen < 5.0 L 06/03/19 06/03/19 06/03/19 11:51 11:51 12:34 WBC RBC Hgb Hct RDW Seg Neuts % (Manual) Lymphocytes % (Manual) Monocytes % (Manual) Seg Neutrophils # Man Lymphocytes # (Manual) Monocytes # (Manual) D-Dimer 4311.60 H ABG pH ABG pO2 ABG HCO3 ABG O2 Saturation ABG Base Excess ABG Hemoglobin VBG pH Oxyhemoglobin Sodium Potassium Chloride Carbon Dioxide BUN Creatinine Glucose POC Glucose Hemoglobin A1c Lactic Acid 5.20 H* Calcium Phosphorus Magnesium Ferritin 1037.0 H AST Alkaline Phosphatase Lactate Dehydrogenase C-Reactive Protein Total Protein Albumin Triglycerides Cholesterol Urine Creatinine Urine Microalbumin Salicylates Acetaminophen 06/03/19 06/03/19 06/03/19 14:30 16:03 17:00 WBC RBC Hgb Hct RDW Seg Neuts % (Manual) Lymphocytes % (Manual) Monocytes % (Manual) Seg Neutrophils # Man Lymphocytes # (Manual) Monocytes # (Manual) D-Dimer ABG pH 6.880 L* ABG pO2 489.9 H ABG HCO3 7.1 L ABG O2 Saturation 99.6 H ABG Base Excess -26.1 L ABG Hemoglobin 16.2 H VBG pH Oxyhemoglobin Sodium Potassium Chloride Carbon Dioxide BUN Creatinine Glucose POC Glucose 335 H Hemoglobin A1c 9.6 H Lactic Acid Calcium Phosphorus Magnesium Ferritin AST Alkaline Phosphatase Lactate Dehydrogenase C-Reactive Protein Total Protein Albumin Triglycerides Cholesterol Urine Creatinine Urine Microalbumin Salicylates Acetaminophen 06/03/19 06/03/19 06/03/19 18:14 18:24 19:00 WBC RBC Hgb Hct RDW Seg Neuts % (Manual) Lymphocytes % (Manual) Monocytes % (Manual) Seg Neutrophils # Man Lymphocytes # (Manual) Monocytes # (Manual) D-Dimer ABG pH 7.057 L* ABG pO2 97.2 H ABG HCO3 5.5 L ABG O2 Saturation ABG Base Excess -23.0 L ABG Hemoglobin 18.1 H VBG pH Oxyhemoglobin 94.4 L Sodium Potassium Chloride Carbon Dioxide BUN Creatinine Glucose POC Glucose 285 H Hemoglobin A1c Lactic Acid 3.40 H* Calcium Phosphorus Magnesium Ferritin AST Alkaline Phosphatase Lactate Dehydrogenase C-Reactive Protein Total Protein Albumin Triglycerides Cholesterol Urine Creatinine Urine Microalbumin Salicylates Acetaminophen 06/03/19 06/03/19 06/03/19 19:00 19:00 19:52 WBC RBC Hgb Hct RDW Seg Neuts % (Manual) Lymphocytes % (Manual) Monocytes % (Manual) Seg Neutrophils # Man Lymphocytes # (Manual) Monocytes # (Manual) D-Dimer ABG pH ABG pO2 ABG HCO3 ABG O2 Saturation ABG Base Excess ABG Hemoglobin VBG pH Oxyhemoglobin Sodium 151 H Potassium Chloride 120.8 H Carbon Dioxide 6 L* BUN 33 H Creatinine 1.4 H Glucose 339 H POC Glucose 316 H Hemoglobin A1c Lactic Acid Calcium Phosphorus Magnesium Ferritin AST 47 H Alkaline Phosphatase 130 H Lactate Dehydrogenase C-Reactive Protein Total Protein Albumin 3.7 L Triglycerides 424 H Cholesterol 250 H Urine Creatinine Urine Microalbumin Salicylates Acetaminophen 06/03/19 06/03/19 06/03/19 20:21 20:21 21:01 WBC RBC Hgb Hct RDW Seg Neuts % (Manual) Lymphocytes % (Manual) Monocytes % (Manual) Seg Neutrophils # Man Lymphocytes # (Manual) Monocytes # (Manual) D-Dimer ABG pH ABG pO2 ABG HCO3 ABG O2 Saturation ABG Base Excess ABG Hemoglobin VBG pH Oxyhemoglobin Sodium 153 H Potassium Chloride 121.8 H Carbon Dioxide 6 L* BUN 34 H Creatinine 1.3 H Glucose 324 H POC Glucose 245 H Hemoglobin A1c Lactic Acid 3.10 H* Calcium Phosphorus Magnesium Ferritin AST Alkaline Phosphatase Lactate Dehydrogenase C-Reactive Protein Total Protein Albumin Triglycerides Cholesterol Urine Creatinine Urine Microalbumin Salicylates Acetaminophen 06/03/19 06/03/19 06/03/19 21:25 21:32 22:42 WBC RBC Hgb Hct RDW Seg Neuts % (Manual) Lymphocytes % (Manual) Monocytes % (Manual) Seg Neutrophils # Man Lymphocytes # (Manual) Monocytes # (Manual) D-Dimer ABG pH 7.172 L* ABG pO2 107.2 H ABG HCO3 5.2 L ABG O2 Saturation ABG Base Excess -20.5 L ABG Hemoglobin 17.3 H VBG pH Oxyhemoglobin Sodium 155 H Potassium 2.6 L* D Chloride 130.1 H Carbon Dioxide 5 L* BUN 24 H Creatinine Glucose 212 H POC Glucose 225 H Hemoglobin A1c Lactic Acid Calcium 5.8 L* D Phosphorus Magnesium Ferritin AST Alkaline Phosphatase Lactate Dehydrogenase C-Reactive Protein Total Protein Albumin Triglycerides Cholesterol Urine Creatinine Urine Microalbumin Salicylates Acetaminophen 06/03/19 06/04/19 06/04/19 23:32 00:04 01:25 WBC RBC Hgb Hct RDW Seg Neuts % (Manual) Lymphocytes % (Manual) Monocytes % (Manual) Seg Neutrophils # Man Lymphocytes # (Manual) Monocytes # (Manual) D-Dimer ABG pH ABG pO2 ABG HCO3 ABG O2 Saturation ABG Base Excess ABG Hemoglobin VBG pH Oxyhemoglobin Sodium 151 H 151 H Potassium 1.5 L* D Chloride 139.0 H 124.7 H Carbon Dioxide 3 L* 9 L* BUN 31 H Creatinine 0.2 L D Glucose 117 H 241 H POC Glucose 231 H Hemoglobin A1c Lactic Acid Calcium 3.1 L* D Phosphorus Magnesium Ferritin AST Alkaline Phosphatase Lactate Dehydrogenase C-Reactive Protein Total Protein Albumin Triglycerides Cholesterol Urine Creatinine Urine Microalbumin Salicylates Acetaminophen 06/04/19 06/04/19 06/04/19 01:34 02:45 03:21 WBC RBC Hgb Hct RDW Seg Neuts % (Manual) Lymphocytes % (Manual) Monocytes % (Manual) Seg Neutrophils # Man Lymphocytes # (Manual) Monocytes # (Manual) D-Dimer ABG pH ABG pO2 ABG HCO3 ABG O2 Saturation ABG Base Excess ABG Hemoglobin VBG pH Oxyhemoglobin Sodium Potassium Chloride Carbon Dioxide BUN Creatinine Glucose POC Glucose 194 H 189 H 183 H Hemoglobin A1c Lactic Acid Calcium Phosphorus Magnesium Ferritin AST Alkaline Phosphatase Lactate Dehydrogenase C-Reactive Protein Total Protein Albumin Triglycerides Cholesterol Urine Creatinine Urine Microalbumin Salicylates Acetaminophen 06/04/19 06/04/19 06/04/19 04:50 05:07 06:27 WBC RBC Hgb Hct RDW Seg Neuts % (Manual) Lymphocytes % (Manual) Monocytes % (Manual) Seg Neutrophils # Man Lymphocytes # (Manual) Monocytes # (Manual) D-Dimer ABG pH ABG pO2 76.5 L ABG HCO3 12.9 L ABG O2 Saturation ABG Base Excess -9.0 L ABG Hemoglobin VBG pH Oxyhemoglobin Sodium Potassium Chloride Carbon Dioxide BUN Creatinine Glucose POC Glucose 200 H 164 H Hemoglobin A1c Lactic Acid Calcium Phosphorus Magnesium Ferritin AST Alkaline Phosphatase Lactate Dehydrogenase C-Reactive Protein Total Protein Albumin Triglycerides Cholesterol Urine Creatinine Urine Microalbumin Salicylates Acetaminophen 06/04/19 06/04/19 06/04/19 07:00 07:00 07:00 WBC 13.4 H RBC 5.54 H Hgb 15.3 H Hct 46.1 H D RDW Seg Neuts % (Manual) 72.0 H Lymphocytes % (Manual) 6.0 L Monocytes % (Manual) Seg Neutrophils # Man 9.6 H Lymphocytes # (Manual) 0.8 L Monocytes # (Manual) D-Dimer ABG pH ABG pO2 ABG HCO3 ABG O2 Saturation ABG Base Excess ABG Hemoglobin VBG pH Oxyhemoglobin Sodium 158 H 156 H Potassium 2.7 L* D 2.6 L* Chloride 124.3 H 123.5 H Carbon Dioxide 11 L 11 L BUN 25 H 26 H Creatinine Glucose 192 H 190 H POC Glucose Hemoglobin A1c Lactic Acid Calcium Phosphorus Magnesium Ferritin AST 43 H Alkaline Phosphatase Lactate Dehydrogenase 590 H C-Reactive Protein 22.70 H Total Protein Albumin 2.9 L Triglycerides Cholesterol Urine Creatinine Urine Microalbumin Salicylates Acetaminophen 06/04/19 06/04/19 06/04/19 07:00 07:00 07:14 WBC RBC Hgb Hct RDW Seg Neuts % (Manual) Lymphocytes % (Manual) Monocytes % (Manual) Seg Neutrophils # Man Lymphocytes # (Manual) Monocytes # (Manual) D-Dimer 2050.33 H ABG pH ABG pO2 ABG HCO3 ABG O2 Saturation ABG Base Excess ABG Hemoglobin VBG pH Oxyhemoglobin Sodium Potassium Chloride Carbon Dioxide BUN Creatinine Glucose POC Glucose 176 H Hemoglobin A1c Lactic Acid Calcium Phosphorus Magnesium Ferritin 941.3 H AST Alkaline Phosphatase Lactate Dehydrogenase C-Reactive Protein Total Protein Albumin Triglycerides Cholesterol Urine Creatinine Urine Microalbumin Salicylates Acetaminophen 06/04/19 06/04/19 06/04/19 09:55 11:38 12:19 WBC RBC Hgb Hct RDW Seg Neuts % (Manual) Lymphocytes % (Manual) Monocytes % (Manual) Seg Neutrophils # Man Lymphocytes # (Manual) Monocytes # (Manual) D-Dimer ABG pH ABG pO2 ABG HCO3 ABG O2 Saturation ABG Base Excess ABG Hemoglobin VBG pH Oxyhemoglobin Sodium Potassium Chloride Carbon Dioxide BUN Creatinine Glucose POC Glucose 184 H 145 H 144 H Hemoglobin A1c Lactic Acid Calcium Phosphorus Magnesium Ferritin AST Alkaline Phosphatase Lactate Dehydrogenase C-Reactive Protein Total Protein Albumin Triglycerides Cholesterol Urine Creatinine Urine Microalbumin Salicylates Acetaminophen 06/04/19 13:35 WBC RBC Hgb Hct RDW Seg Neuts % (Manual) Lymphocytes % (Manual) Monocytes % (Manual) Seg Neutrophils # Man Lymphocytes # (Manual) Monocytes # (Manual) D-Dimer ABG pH ABG pO2 ABG HCO3 ABG O2 Saturation ABG Base Excess ABG Hemoglobin VBG pH Oxyhemoglobin Sodium Potassium Chloride Carbon Dioxide BUN Creatinine Glucose POC Glucose 151 H Hemoglobin A1c Lactic Acid Calcium Phosphorus Magnesium Ferritin AST Alkaline Phosphatase Lactate Dehydrogenase C-Reactive Protein Total Protein Albumin Triglycerides Cholesterol Urine Creatinine Urine Microalbumin Salicylates Acetaminophen Chest x-ray: image reviewed (ETT in place, right lower lobe pneumonia) Additional Studies: EKG shows sinus tachycardia with MAT CT head no acute intracranial process CT cervical spine patchy groundglass consolidative airspace disease right mid to lower lung
[2019-06-04 15:53] LABS: BUN/Creatinine Ratio 23; Blood Urea Nitrogen 21 mg/dL (7-17); Calcium 9.6 mg/dL (8.4-10.2); Hemolysis Index 5
--- NOTE | 2019-06-04 16:17 | Progress Note ---
Assessment and Plan Assessment and plan: Mrs. Tomas is a 48-year-old female with a history of hypertension, type 2 diabetes mellitus events with altered mental status. She arrived per EMS. Last known time normal 10 PM last night. Patient is nonverbal. History obtained from paramedics and electronic medical record. Patient had been ill with fever cough for the past several days. She recently returned back from [place]. EMS discovered patient to be altered with work of breathing. Patient is nonverbal. She was not moving her right side. She is hypoxic at 77% room air. Blood pressure was 140/97. Blood sugar was elevated fingerstick. Hx obtained from Mek[facility] Love realized that patient was not speaking 4 AM. Found her later breathing really heavy. Unresponsive. When she came back from [place] last Saturday. She had high fever. Her doctor ordered test for COVID-19. Dr. Rausch her PCP informed patient that she tested negative. She went to [place] to celebrate her mother's birthday. On admission she was noted to be in DKA and started on DKA protocol. She was also intubated and on full mechanical ventilatory support. Diagnostic work-up so far EKG shows sinus tachycardia with MAT CT head no acute intracranial process CT cervical spine patchy groundglass consolidative airspace disease right mid to lower lung Mrs. Tomas presents with altered mental status hypoxia. She required mechanical ventilation for oxygenation and airway control. Initially was not moving her right side. With oxygen supplementation she began to move both of her arms. She continued to be nonverbal. She did not follow commands prior to intubation. With CT chest findings and history of fever I strongly suspect COVID 19. Although she previously tested negative there is significant support of false negative test so we will retest. survey form was filled out in the ED by the ED physician through the [facility] department of health as a person under investigation for COVID 19. Char guy returned 1 week ago from [place] after celebrating her mother's birthday. Acute hypoxic respiratory failure mild on mechanical ventilation DKA Diabetes mellitus with uncontrolled blood sugar Hypokalemia Acute metabolic encephalopathy Right upper extremity weakness now resolved Pneumonia Leukocytosis Sepsis secondary to pneumonia-with hypothermia Rule out COVID 19 Severe metabolic acidosis Plan Continue intensive care monitoring. 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 Replace potassium DKA protocol with insulin f/u COVID test - pending Continue COVID isolation precautions per [facility] protocol Will likely be started on Plaquenil and azithromycin but will defer to ID physician Obtain serial Ferritin, LDH, D-Dimer, CRP every 48h Empiric antibiotic coverage, obtain blood cultures and urine cultures and sputum cultures. Wean from vent as tolerated defer to catering truck driver We will monitor EKG for any visualization of the atrial fibrillation. If persist will obtain cardiology consult. DVT and GI prophylaxis The high probability of a clinically significant, sudden or life threatening deterioration of the [pulmonary, neuro,] system(s) required my full and direct attention, intervention and personal management. The aggregate critical care time was [75] minutes. This time is in addition to time spent performing reported procedures but includes the following: [x] Data Review and interpretation [x] Patient assessment and monitoring of vital signs [x] Documentation [x] Medication orders and management History Interval history: Patient seen and examined remains on the vent. And at the time of examination this morning patient remains on insulin drip. No adverse event reported overnight Hospitalist Physical - Physical exam Narrative exam: VITAL SIGNS: Reviewed. GENERAL: The patient appears normally developed, sedated and intubated vital signs as documented. HEAD: No signs of head trauma. EYES: Pupils are equal. Unable to examine EARS: Unable to examine MOUTH: Oropharynx is normal. ET tube in place NECK: No adenopathy, no JVD. CHEST: Chest with clear breath sounds bilaterally. No wheezes, rales, or rhonchi. CARDIAC: Regular rate and rhythm. S1 and S2, without murmurs, gallops, or rubs. VASCULAR: No Edema. Peripheral pulses normal and equal in all extremities. ABDOMEN: Soft, non tender and non distended. No rebound or guarding, and no masses palpated. Bowel Sounds normal. MUSCULOSKELETAL: Per ED documentation was moving left arm but not the right arm.. Extremities without clubbing, cyanosis or edema. NEUROLOGIC EXAM: Intubated and sedated PSYCHIATRIC: Unable to examine SKIN: detial exam as documented in skin assessment - Constitutional Vitals: Temp Pulse Resp BP Pulse Ox 98.7 F 108 H 30 H 117/80 98 06/04/19 12:00 06/04/19 15:00 06/04/19 15:00 06/04/19 15:00 06/04/19 15:00 MACK score - Mack Score Age > 65: (0) No 3 or more CAD Risk Factors: (1) Yes 2 or more Angina events in past 24 hrs: (0) No Known CAD with more than 50% Stenosis: (0) No Elevated Cardiac Markers: (0) No ST Deviation Greater than 0.5mm: (0) No Results - Labs CBC & Chem 7: 06/04/19 07:00 06/04/19 15:06 Labs: Laboratory Last Values WBC 13.4 K/mm3 (4.5-11.0) H 06/04/19 07:00 RBC 5.54 M/mm3 (3.65-5.03) H 06/04/19 07:00 Hgb 15.3 gm/dl (10.1-14.3) H 06/04/19 07:00 Hct 46.1 % (30.3-42.9) H D 06/04/19 07:00 MCV 83 fl (79-97) 06/04/19 07:00 MCH 28 pg (28-32) 06/04/19 07:00 MCHC 33 % (30-34) 06/04/19 07:00 RDW 15.1 % (13.2-15.2) 06/04/19 07:00 Plt Count 258 K/mm3 (140-440) 06/04/19 07:00 Lymph % (Auto) Supervisor Coremaker 06/03/19 11:51 [place] % (Auto) Supervisor Coremaker 06/03/19 11:51 Eos % (Auto) Supervisor Coremaker 06/03/19 11:51 Baso % (Auto) Supervisor Coremaker 06/03/19 11:51 Lymph # Supervisor Coremaker 06/03/19 11:51 [place] # Supervisor Coremaker 06/03/19 11:51 Eos # Supervisor Coremaker 06/03/19 11:51 Baso # Supervisor Coremaker 06/03/19 11:51 Add Manual Diff Complete 06/04/19 07:00 Total Counted 100 06/04/19 07:00 Seg Neutrophils % Supervisor Coremaker 06/04/19 07:00 Seg Neuts % (Manual) 72.0 % (40.0-70.0) H 06/04/19 07:00 Band Neutrophils % 20.0 % 06/04/19 07:00 Lymphocytes % (Manual) 6.0 % (13.4-35.0) L 06/04/19 07:00 Reactive Lymphs % (Man) 0 % 06/04/19 07:00 Monocytes % (Manual) 2.0 % (0.0-7.3) 06/04/19 07:00 Eosinophils % (Manual) 0 % (0.0-4.3) 06/04/19 07:00 Basophils % (Manual) 0 % (0.0-1.8) 06/04/19 07:00 Metamyelocytes % 0 % 06/04/19 07:00 Myelocytes % 0 % 06/04/19 07:00 Promyelocytes % 0 % 06/04/19 07:00 Blast Cells % 0 % 06/04/19 07:00 Nucleated RBC % Not Reportable 06/04/19 07:00 Seg Neutrophils # Supervisor Coremaker 06/03/19 11:51 Seg Neutrophils # Man 9.6 K/mm3 (1.8-7.7) H 06/04/19 07:00 Band Neutrophils # 2.7 K/mm3 06/04/19 07:00 Lymphocytes # (Manual) 0.8 K/mm3 (1.2-5.4) L 06/04/19 07:00 Abs React Lymphs (Man) 0.0 K/mm3 06/04/19 07:00 Monocytes # (Manual) 0.3 K/mm3 (0.0-0.8) 06/04/19 07:00 Eosinophils # (Manual) 0.0 K/mm3 (0.0-0.4) 06/04/19 07:00 Basophils # (Manual) 0.0 K/mm3 (0.0-0.1) 06/04/19 07:00 Metamyelocytes # 0.0 K/mm3 06/04/19 07:00 Myelocytes # 0.0 K/mm3 06/04/19 07:00 Promyelocytes # 0.0 K/mm3 06/04/19 07:00 Blast Cells # 0.0 K/mm3 06/04/19 07:00 WBC Morphology Not Reportable 06/04/19 07:00 Hypersegmented Neuts Not Reportable 06/04/19 07:00 Hyposegmented Neuts Not Reportable 06/04/19 07:00 Hypogranular Neuts Not Reportable 06/04/19 07:00 Smudge Cells Not Reportable 06/04/19 07:00 Toxic Granulation Not Reportable 06/04/19 07:00 Toxic Vacuolation Not Reportable 06/04/19 07:00 Dohle Bodies Not Reportable 06/04/19 07:00 Pelger-Huet Anomaly Not Reportable 06/04/19 07:00 Stephanie Rods Not Reportable 06/04/19 07:00 Platelet Estimate Consistent w auto 06/04/19 07:00 Clumped Platelets Not Reportable 06/04/19 07:00 Plt Clumps, EDTA Not Reportable 06/04/19 07:00 Large Platelets Not Reportable 06/04/19 07:00 Giant Platelets Not Reportable 06/04/19 07:00 Platelet Satelliting Not Reportable 06/04/19 07:00 Plt Morphology Comment Not Reportable 06/04/19 07:00 RBC Morphology Normal 06/04/19 07:00 Dimorphic RBCs Not Reportable 06/04/19 07:00 Polychromasia Not Reportable 06/04/19 07:00 Hypochromasia Not Reportable 06/04/19 07:00 Poikilocytosis Not Reportable 06/04/19 07:00 Anisocytosis Not Reportable 06/04/19 07:00 Microcytosis Not Reportable 06/04/19 07:00 Macrocytosis Not Reportable 06/04/19 07:00 Spherocytes Not Reportable 06/04/19 07:00 Pappenheimer Bodies Not Reportable 06/04/19 07:00 Sickle Cells Not Reportable 06/04/19 07:00 Target Cells Not Reportable 06/04/19 07:00 Tear Drop Cells Not Reportable 06/04/19 07:00 Ovalocytes Not Reportable 06/04/19 07:00 Helmet Cells Not Reportable 06/04/19 07:00 [place] Bodies Not Reportable 06/04/19 07:00 [place] Rings Not Reportable 06/04/19 07:00 Jessica Cells Not Reportable 06/04/19 07:00 Bite Cells Not Reportable 06/04/19 07:00 Crenated Cell Not Reportable 06/04/19 07:00 Elliptocytes Not Reportable 06/04/19 07:00 Acanthocytes (Spur) Not Reportable 06/04/19 07:00 Rouleaux Not Reportable 06/04/19 07:00 Hemoglobin C Crystals Not Reportable 06/04/19 07:00 Schistocytes Not Reportable 06/04/19 07:00 Malaria parasites Not Reportable 06/04/19 07:00 Elias Bodies Not Reportable 06/04/19 07:00 Hem Pathologist Commnt No 06/04/19 07:00 D-Dimer 2050.33 ng/mlDDU (0-234) H 06/04/19 07:00 ABG pH 7.438 pH Units (7.350-7.450) 06/04/19 04:50 ABG pCO2 19.5 mm Hg 06/04/19 04:50 ABG pO2 76.5 mm Hg (80.0-90.0) L 06/04/19 04:50 ABG HCO3 12.9 mmol/L (20.0-26.0) L 06/04/19 04:50 ABG O2 Saturation 96.7 % (95.0-99.0) 06/04/19 04:50 ABG O2 Content 17.3 (0.0-44) 06/04/19 04:50 ABG Base Excess -9.0 mmol/L (-2.0-3.0) L 06/04/19 04:50 ABG Hemoglobin 12.9 gm/dl (12.0-16.0) 06/04/19 04:50 ABG Carboxyhemoglobin 1.0 % (0.0-5.0) 06/04/19 04:50 ABG Methemoglobin 0.6 % (0.0-1.5) 06/04/19 04:50 VBG pH 6.901 (7.320-7.420) L* 06/03/19 11:51 Oxyhemoglobin 95.2 % (95.0-99.0) 06/04/19 04:50 FiO2 45 % 06/04/19 04:50 Sodium 157 mmol/L (137-145) H 06/04/19 15:06 Potassium 2.6 mmol/L (3.6-5.0) L* 06/04/19 07:00 Potassium 2.7 mmol/L (3.6-5.0) L* D 06/04/19 07:00 Chloride 121.4 mmol/L (98-107) H 06/04/19 15:06 Carbon Dioxide 20 mmol/L (22-30) L D 06/04/19 15:06 Anion Gap 24 mmol/L 06/04/19 07:00 Anion Gap 25 mmol/L 06/04/19 07:00 BUN 21 mg/dL (7-17) H 06/04/19 15:06 Creatinine 0.9 mg/dL (0.7-1.2) 06/04/19 15:06 Estimated GFR > 60 ml/min 06/04/19 15:06 BUN/Creatinine Ratio 23 % 06/04/19 15:06 Glucose 176 mg/dL (65-100) H 06/04/19 15:06 POC Glucose 142 (70-105) H 06/04/19 14:29 Hemoglobin A1c 9.6 % (4-6) H 06/03/19 16:03 Lactic Acid 1.90 mmol/L (0.7-2.0) 06/03/19 21:32 Calcium 9.6 mg/dL (8.4-10.2) 06/04/19 15:06 Phosphorus TNR 06/03/19 17:15 Magnesium TNR 06/03/19 17:15 Ferritin 941.3 ng/mL (13.0-400.0) H 06/04/19 07:00 Total Bilirubin 0.40 mg/dL (0.1-1.2) 06/04/19 07:00 AST 43 units/L (5-40) H 06/04/19 07:00 ALT 22 units/L (7-56) 06/04/19 07:00 Alkaline Phosphatase 90 units/L (35-129) 06/04/19 07:00 Lactate Dehydrogenase 590 units/L (91-180) H 06/04/19 07:00 Troponin T < 0.010 ng/mL (0.00-0.029) 06/03/19 11:51 C-Reactive Protein 22.70 mg/dL (0.00-1.30) H 06/04/19 07:00 Total Protein 7.1 g/dL (6.3-8.2) 06/04/19 07:00 Albumin 2.9 g/dL (3.9-5) L 06/04/19 07:00 Albumin/Globulin Ratio 0.7 % 06/04/19 07:00 Triglycerides 424 mg/dL (2-149) H 06/03/19 19:00 Cholesterol 250 mg/dL (50-199) H 06/03/19 19:00 LDL Cholesterol Direct TNR 06/03/19 19:00 HDL Cholesterol 46 mg/dL (40-59) 06/03/19 19:00 Cholesterol/HDL Ratio 5.43 % 06/03/19 19:00 Urine Color Yellow (Yellow) 06/03/19 11:48 Urine Turbidity Clear (Clear) 06/03/19 11:48 Urine pH 6.0 (5.0-7.0) 06/03/19 11:48 Ur Specific [place] 1.026 (1.003-1.030) 06/03/19 11:48 Urine Protein 100 mg/dl mg/dL (Negative) 06/03/19 11:48 Urine Glucose (UA) >=500 mg/dL (Negative) 06/03/19 11:48 Urine Ketones 80 mg/dL (Negative) 06/03/19 11:48 Urine Blood Mod (Negative) 06/03/19 11:48 Urine Nitrite Neg (Negative) 06/03/19 11:48 Urine Bilirubin Neg (Negative) 06/03/19 11:48 Urine Urobilinogen < 2.0 mg/dL (<2.0) 06/03/19 11:48 Ur Leukocyte Esterase Neg (Negative) 06/03/19 11:48 Urine WBC (Auto) 1.0 /HPF (0.0-6.0) 06/03/19 11:48 Urine RBC (Auto) 2.0 /HPF (0.0-6.0) 06/03/19 11:48 Granular Casts 4 /LPF 06/03/19 11:48 Urine Mucus Few /HPF 06/03/19 11:48 Urine Creatinine 37.4 mg/dL (0.1-20.0) H 06/03/19 11:48 Urine Microalbumin 65.1 mg/dL (0.1-34.0) H 06/03/19 11:48 Microalb/Creat Ratio 1740.6 ug/mg 06/03/19 11:48 Urine HCG, Qual Negative (Negative) 06/03/19 11:48 Salicylates < 0.3 mg/dL (2.8-20.0) L 06/03/19 11:51 Urine Opiates Screen Presumptive negative 06/03/19 11:48 Urine Methadone Screen Presumptive negative 06/03/19 11:48 Acetaminophen < 5.0 ug/mL (10.0-30.0) L 06/03/19 11:51 Ur Barbiturates Screen Presumptive negative 06/03/19 11:48 Ur Phencyclidine Scrn Presumptive negative 06/03/19 11:48 Ur Amphetamines Screen Presumptive negative 06/03/19 11:48 U Benzodiazepines Scrn Presumptive negative 06/03/19 11:48 Urine Cocaine Screen Presumptive negative 06/03/19 11:48 U Marijuana (THC) Screen Presumptive negative 06/03/19 11:48 Drugs of Abuse Note Disclamer 06/03/19 11:48 Plasma/Serum Alcohol < 0.01 % (0-0.07) 06/03/19 11:51 Hepatitis A IgM Ab Non-reactive (NonReactive) 06/04/19 08:19 Hep Bs Antigen Non-reactive (Negative) 06/04/19 08:19 Hep B Core IgM Ab Non-reactive (NonReactive) 06/04/19 08:19 Hepatitis C Antibody Non-reactive (NonReactive) 06/04/19 08:19 Influenza A (Rapid) Negative (Negative) 06/03/19 Unknown Influenza B (Rapid) Negative (Negative) 06/03/19 Unknown Microbiology: Microbiology 06/03/19 Unknown Peripheral/Venous Blood Culture - Preliminary NO GROWTH AFTER 24 HOURS 06/03/19 Unknown Peripheral/Venous Blood Culture - Preliminary NO GROWTH AFTER 24 HOURS 06/03/19 Unknown Urine,Catheterized - Straight Catheter Urine Culture - Preliminary NO GROWTH AFTER 24 HOURS Alves/IV: Voiding Method Indwelling Catheter IV Catheter Type [Left Hand] INT / Saline Lock IV Catheter Type [Right INT / Saline Lock Antecubital] IV Catheter Type [Left Peripheral IV Antecubital] Active Medications - Current Medications Current Medications: Generic Name Dose Route Start Last Admin Trade Name Freq PRN Reason Stop Dose Admin Albuterol 2.5 mg 06/03/19 13:57 Proventil IH Q3HRT PRN Shortness Of Breath Dextrose 50 ml 06/03/19 13:57 D50w (25gm) Syringe IV Q30MIN PRN Hypoglycemia Protocol Famotidine 20 mg 06/04/19 10:00 06/04/19 10:06 Pepcid IV 20 mg BID JOSE ROBERTO Administration Heparin Sodium (Porcine) 5,000 unit 06/03/19 14:15 06/04/19 10:06 Heparin SUB-Q 5,000 unit Q12HR JOSE ROBERTO Administration Hydrophilic Ointment 1 applic 06/03/19 11:02 Vaseline Lip Therapy TP Q2HR PRN Dry Lips Hydroxychloroquine Sulfate 200 mg 06/04/19 10:00 06/04/19 10:06 Plaquenil PO 06/07/19 22:01 200 mg BID JOSE ROBERTO Administration Propofol 1,000 mg in 100 mls @ 2.346 mls/hr 06/03/19 12:00 06/04/19 11:33 Diprivan 10 Mg/Ml IV 10 mcg/kg/min TITR JOSE ROBERTO 4.692 mls/hr Administration Protocol 5 MCG/KG/MIN Vancomycin HCl 1 gm in 250 mls @ 166.667 mls/hr 06/04/19 10:00 06/04/19 10:03 Vancomycin/Ns 1 Gm/250 Ml IV 166.667 mls/hr Q12HR JOSE ROBERTO Administration Cefepime HCl 2 gm in 100 mls @ 200 mls/hr 06/03/19 22:00 06/04/19 10:01 Cefepime/Ns 2 Gm/100 Ml IV 200 mls/hr Q12HR JOSE ROBERTO Administration Protocol Insulin Human Regular 100 100 mls @ 1 mls/hr 06/03/19 14:00 06/04/19 14:21 units/ Sodium Chloride IV 6 units/hr TITR JOSE ROBERTO 6 mls/hr Titration Protocol 1 UNITS/HR Sodium Bicarbonate 150 meq/ 1,160 mls @ 150 mls/hr 06/03/19 23:00 06/04/19 11:33 Potassium Chloride 20 meq/ IV 150 mls/hr Dextrose DIRECT JOSE ROBERTO Administration Sodium Chloride 1,000 mls @ 75 mls/hr 06/04/19 03:30 06/04/19 03:22 Nacl 0.9% 1000 Ml IV 75 mls/hr DIRECT JOSE ROBERTO Administration Potassium Chloride 10 meq in 100 mls @ 100 mls/hr 06/04/19 09:00 06/04/19 14:22 Kcl 10meq/100ml IV 06/04/19 16:59 100 mls/hr Q1H JOSE ROBERTO Administration Metronidazole 500 mg in 100 mls @ 100 mls/hr 06/04/19 09:00 06/04/19 10:12 Flagyl 500 Mg/100 Ml IV 100 mls/hr Q8HR JOSE ROBERTO Administration Protocol Insulin Human Lispro 0 unit 06/03/19 18:00 06/04/19 08:10 Humalog SUB-Q Not Given Q6HR JOSE ROBERTO Protocol Multi-Ingred Cream/Lotion/Oil/Oint 1 applic 06/03/19 11:02 Artificial Tears Ophth Oint OU Q4HR PRN Dry Eye(s) Senna 8.6 mg 06/03/19 22:00 06/04/19 10:06 Senokot PO 8.6 mg BID JOSE ROBERTO Administration Sodium Chloride 10 ml 06/03/19 22:00 06/04/19 10:07 Sodium Chloride Flush Syringe 10 Ml IV 10 ml BID JOSE ROBERTO Administration Sodium Chloride 10 ml 06/03/19 13:57 Sodium Chloride Flush Syringe 10 Ml IV PRN PRN LINE FLUSH Nutrition/Malnutrition Assess - Dietary Evaluation Nutrition/Malnutrition Findings: Nutrition Notes Start: 06/04/19 08:30 Freq: Status: Active Protocol: Document 06/04/19 08:30 LM (Rec: 06/04/19 08:38 LM [id number]) Nutrition Notes Need for Assessment generated from: 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 Nathaniel score 17 nut with no skin breakdown. Pt is on the vent. Burn Absent Trauma Absent Current % PO Negligible Minimum of two criteria No physical signs of malnutrition #1 Nutrition Diagnosis Inadequate oral intake Etiology Mechanical vent As Evidenced by Signs and Symptoms Pt NPO Is patient on ventilator? Yes Is Patient Ambulatory and/or Out of Bed No REE-([place]-[facility]. Jeor-confined to bed) 0038.851 Calculation [facility] Additional Notes Protein: 90-150g (1.2-2g/kg) Fluid: 1 ml/kcal Nutrition Intervention Change Diet Order: TF when medically feasible Nutrition Support: Vital AF 1.2 at 60 ml/hr Flush 200 ml q4h for hypernatremia Flush 100 ml q4h once hypernatremia resolves Kcal 1,728 Protein (gm) 108 Fluid (mL) 1,168 Goal #1 Start TF when medically feasible Anticipated Discharge Needs: unable to determine at this time Follow-Up By: 06/08/19 Additional Comments F/U for TF consult
[2019-06-04 22:50] LABS: ABG Base Excess 3.5 mmol/L (-2.0-3.0); ABG HCO3 23.5 mmol/L (20.0-26.0); ABG Methemoglobin 0.6 % (0.0-1.5); ABG Oxygen Saturation 95.9 % (95.0-99.0); ABG PCO2 26.1 mm Hg; ABG PH 7.572 pH Units (7.350-7.450); ABG PO2 58.5 mm Hg (80.0-90.0)
--- NOTE | 2019-06-05 05:20 | XRay Report ---
CHEST 1 VIEW 3:50 AM INDICATION / CLINICAL INFORMATION: Follow-up respiratory failure. COMPARISON: Yesterday. FINDINGS: SUPPORT DEVICES: The positions of the endotracheal and nasogastric tubes have not changed. HEART / MEDIASTINUM: Unchanged. LUNGS / PLEURA: Moderate parenchymal disease in the right infrahilar region, left retrocardiac region and right lung base has shown significant increase. No pneumothorax. ADDITIONAL FINDINGS: No significant additional findings. IMPRESSION: Increasing bilateral parenchymal disease is likely related to pneumonia. Signer Name: Tommy Pringle MD Signed: 06/05/2019 5:16 AM Workstation Name: [id number]
[2019-06-05 06:04] LABS: ABG Base Excess 8.8 mmol/L (-2.0-3.0); ABG HCO3 29.8 mmol/L (20.0-26.0); ABG Methemoglobin 0.4 % (0.0-1.5); ABG Oxygen Saturation 97.4 % (95.0-99.0); ABG PCO2 29.5 mm Hg; ABG PO2 54.3 mm Hg (80.0-90.0)
[2019-06-05 06:15] LABS: ABG PH 7.621 pH Units (7.350-7.450)
[2019-06-05 06:39] LABS: BUN/Creatinine Ratio 22; Blood Urea Nitrogen 13 mg/dL (7-17); Calcium 9.4 mg/dL (8.4-10.2); Hemolysis Index 52
[2019-06-05] MEDS: metroNIDAZOLE/NS 500 MG/100 ML 500 MG/100 ML BAG IV SCH ×3 (07:01→23:07)
[2019-06-05] MEDS ORDERED: DEXTROSE 50% IN WATER (25GM) 50 ML SYRINGE IV PRN (08:01)
--- NOTE | 2019-06-05 08:04 | Progress Note ---
Assessment and Plan Assessment and plan: Mrs. Tomas is a 48-year-old female with a history of hypertension, type 2 diabetes mellitus events with altered mental status. She arrived per EMS. Last known time normal 10 PM last night. Patient is nonverbal. History obtained from paramedics and electronic medical record. Patient had been ill with fever cough for the past several days. She recently returned back from [place]. EMS discovered patient to be altered with work of breathing. Patient is nonverbal. She was not moving her right side. She is hypoxic at 77% room air. Blood pressure was 140/97. Blood sugar was elevated fingerstick. Hx obtained from [facility] realized that patient was not speaking 4 AM. Found her later breathing really heavy. Unresponsive. When she came back from [place] last Saturday. She had high fever. Her doctor ordered test for COVID-19. Dr. Rausch her PCP informed patient that she tested negative. She went to [place] to celebrate her mother's birthday. On admission she was noted to be in DKA and started on DKA protocol. She was also intubated and on full mechanical ventilatory support. Diagnostic work-up so far EKG shows sinus tachycardia with MAT CT head no acute intracranial process CT cervical spine patchy groundglass consolidative airspace disease right mid to lower lung Mrs. Tomas presents with altered mental status hypoxia. She required mechanical ventilation for oxygenation and airway control. Initially was not moving her right side. With oxygen supplementation she began to move both of her arms. She continued to be nonverbal. She did not follow commands prior to intubation. With CT chest findings and history of fever I strongly suspect COVID 19. Although she previously tested negative there is significant support of false negative test so we will retest. survey form was filled out in the ED by the ED physician through the [facility] department of health as a person under investigation for COVID 19. Char guy returned 1 week ago from [place] after celebrating her mother's birthday. Acute hypoxic respiratory failure mild on mechanical ventilation DKA-resolved Diabetes mellitus with uncontrolled blood sugar Hypokalemia Hypernatremia Acute metabolic encephalopathy Right upper extremity weakness now resolved Pneumonia Leukocytosis Sepsis secondary to pneumonia-with hypothermia Rule out COVID 19 Severe metabolic acidosis Plan 06/04: Remains on full mechanical support. Patient with respiratory alkalosis noted. Adjustment made to the ventilator to decrease the rate. Will replace potassium as hypokalemia still persist. Hypernatremia gradually improving will adjust free water. Patient's anion gap is finally closed will transition to sliding scale coverage with Lantus. Anticipate weaning trial today if patient is amendable to it. Oxygen at requirements per vent settings appears to be improving Continue intensive care monitoring. Risk Adjustment Specialist and infectious disease consult input noted EKG reviewed no evidence of atrial fibrillation will repeat. Replace potassium DKA protocol with insulin-will be discontinued f/u COVID test - pending Continue COVID isolation precautions per [facility] protocol Will likely be started on Plaquenil and azithromycin but will defer to ID physician Obtain serial Ferritin, LDH, D-Dimer, CRP every 48h Empiric antibiotic coverage, obtain blood cultures and urine cultures and sputum cultures. Wean from vent as tolerated defer to university intern We will monitor EKG for any visualization of the atrial fibrillation. If persist will obtain cardiology consult. DVT and GI prophylaxis The high probability of a clinically significant, sudden or life threatening deterioration of the [pulmonary, neuro,] system(s) required my full and direct attention, intervention and personal management. The aggregate critical care time was [35] minutes. This time is in addition to time spent performing reported procedures but includes the following: [x] Data Review and interpretation [x] Patient assessment and monitoring of vital signs [x] Documentation [x] Medication orders and management History Interval history: Patient seen and examined remains on the vent. No acute events reported overnight Hospitalist Physical - Physical exam Narrative exam: VITAL SIGNS: Reviewed. GENERAL: The patient appears normally developed, sedated and intubated vital signs as documented. HEAD: No signs of head trauma. EYES: Pupils are equal. Unable to examine EARS: Unable to examine MOUTH: Oropharynx is normal. ET tube in place NECK: No adenopathy, no JVD. CHEST: Chest with clear breath sounds bilaterally. No wheezes, rales, or rhonchi. CARDIAC: Regular rate and rhythm. S1 and S2, without murmurs, gallops, or rubs. VASCULAR: No Edema. Peripheral pulses normal and equal in all extremities. ABDOMEN: Soft, non tender and non distended. No rebound or guarding, and no masses palpated. Bowel Sounds normal. MUSCULOSKELETAL: Per ED documentation was moving left arm but not the right arm.. Extremities without clubbing, cyanosis or edema. NEUROLOGIC EXAM: Intubated and sedated PSYCHIATRIC: Unable to examine SKIN: detial exam as documented in skin assessment - Constitutional Vitals: Temp Pulse Resp BP Pulse Ox 98.2 F 108 H 30 H 106/71 96 06/05/19 04:00 06/05/19 06:11 06/05/19 06:11 06/05/19 06:11 06/05/19 06:11 MACK score - Mack Score Age > 65: (0) No 3 or more CAD Risk Factors: (1) Yes 2 or more Angina events in past 24 hrs: (0) No Known CAD with more than 50% Stenosis: (0) No Elevated Cardiac Markers: (0) No ST Deviation Greater than 0.5mm: (0) No Results - Labs CBC & Chem 7: 06/04/19 07:00 06/05/19 03:59 Labs: Laboratory Last Values WBC 13.4 K/mm3 (4.5-11.0) H 06/04/19 07:00 RBC 5.54 M/mm3 (3.65-5.03) H 06/04/19 07:00 Hgb 15.3 gm/dl (10.1-14.3) H 06/04/19 07:00 Hct 46.1 % (30.3-42.9) H D 06/04/19 07:00 MCV 83 fl (79-97) 06/04/19 07:00 MCH 28 pg (28-32) 06/04/19 07:00 MCHC 33 % (30-34) 06/04/19 07:00 RDW 15.1 % (13.2-15.2) 06/04/19 07:00 Plt Count 258 K/mm3 (140-440) 06/04/19 07:00 Lymph % (Auto) Parliamentary Archivist 06/03/19 11:51 [place] % (Auto) Parliamentary Archivist 06/03/19 11:51 Eos % (Auto) Parliamentary Archivist 06/03/19 11:51 Baso % (Auto) Parliamentary Archivist 06/03/19 11:51 Lymph # Parliamentary Archivist 06/03/19 11:51 [place] # Parliamentary Archivist 06/03/19 11:51 Eos # Parliamentary Archivist 06/03/19 11:51 Baso # Parliamentary Archivist 06/03/19 11:51 Add Manual Diff Complete 06/04/19 07:00 Total Counted 100 06/04/19 07:00 Seg Neutrophils % Parliamentary Archivist 06/04/19 07:00 Seg Neuts % (Manual) 72.0 % (40.0-70.0) H 06/04/19 07:00 Band Neutrophils % 20.0 % 06/04/19 07:00 Lymphocytes % (Manual) 6.0 % (13.4-35.0) L 06/04/19 07:00 Reactive Lymphs % (Man) 0 % 06/04/19 07:00 Monocytes % (Manual) 2.0 % (0.0-7.3) 06/04/19 07:00 Eosinophils % (Manual) 0 % (0.0-4.3) 06/04/19 07:00 Basophils % (Manual) 0 % (0.0-1.8) 06/04/19 07:00 Metamyelocytes % 0 % 06/04/19 07:00 Myelocytes % 0 % 06/04/19 07:00 Promyelocytes % 0 % 06/04/19 07:00 Blast Cells % 0 % 06/04/19 07:00 Nucleated RBC % Not Reportable 06/04/19 07:00 Seg Neutrophils # Parliamentary Archivist 06/03/19 11:51 Seg Neutrophils # Man 9.6 K/mm3 (1.8-7.7) H 06/04/19 07:00 Band Neutrophils # 2.7 K/mm3 06/04/19 07:00 Lymphocytes # (Manual) 0.8 K/mm3 (1.2-5.4) L 06/04/19 07:00 Abs React Lymphs (Man) 0.0 K/mm3 06/04/19 07:00 Monocytes # (Manual) 0.3 K/mm3 (0.0-0.8) 06/04/19 07:00 Eosinophils # (Manual) 0.0 K/mm3 (0.0-0.4) 06/04/19 07:00 Basophils # (Manual) 0.0 K/mm3 (0.0-0.1) 06/04/19 07:00 Metamyelocytes # 0.0 K/mm3 06/04/19 07:00 Myelocytes # 0.0 K/mm3 06/04/19 07:00 Promyelocytes # 0.0 K/mm3 06/04/19 07:00 Blast Cells # 0.0 K/mm3 06/04/19 07:00 WBC Morphology Not Reportable 06/04/19 07:00 Hypersegmented Neuts Not Reportable 06/04/19 07:00 Hyposegmented Neuts Not Reportable 06/04/19 07:00 Hypogranular Neuts Not Reportable 06/04/19 07:00 Smudge Cells Not Reportable 06/04/19 07:00 Toxic Granulation Not Reportable 06/04/19 07:00 Toxic Vacuolation Not Reportable 06/04/19 07:00 Dohle Bodies Not Reportable 06/04/19 07:00 Pelger-Huet Anomaly Not Reportable 06/04/19 07:00 Stephanie Rods Not Reportable 06/04/19 07:00 Platelet Estimate Consistent w auto 06/04/19 07:00 Clumped Platelets Not Reportable 06/04/19 07:00 Plt Clumps, EDTA Not Reportable 06/04/19 07:00 Large Platelets Not Reportable 06/04/19 07:00 Giant Platelets Not Reportable 06/04/19 07:00 Platelet Satelliting Not Reportable 06/04/19 07:00 Plt Morphology Comment Not Reportable 06/04/19 07:00 RBC Morphology Normal 06/04/19 07:00 Dimorphic RBCs Not Reportable 06/04/19 07:00 Polychromasia Not Reportable 06/04/19 07:00 Hypochromasia Not Reportable 06/04/19 07:00 Poikilocytosis Not Reportable 06/04/19 07:00 Anisocytosis Not Reportable 06/04/19 07:00 Microcytosis Not Reportable 06/04/19 07:00 Macrocytosis Not Reportable 06/04/19 07:00 Spherocytes Not Reportable 06/04/19 07:00 Pappenheimer Bodies Not Reportable 06/04/19 07:00 Sickle Cells Not Reportable 06/04/19 07:00 Target Cells Not Reportable 06/04/19 07:00 Tear Drop Cells Not Reportable 06/04/19 07:00 Ovalocytes Not Reportable 06/04/19 07:00 Helmet Cells Not Reportable 06/04/19 07:00 [place] Bodies Not Reportable 06/04/19 07:00 [place] Rings Not Reportable 06/04/19 07:00 Jessica Cells Not Reportable 06/04/19 07:00 Bite Cells Not Reportable 06/04/19 07:00 Crenated Cell Not Reportable 06/04/19 07:00 Elliptocytes Not Reportable 06/04/19 07:00 Acanthocytes (Spur) Not Reportable 06/04/19 07:00 Rouleaux Not Reportable 06/04/19 07:00 Hemoglobin C Crystals Not Reportable 06/04/19 07:00 Schistocytes Not Reportable 06/04/19 07:00 Malaria parasites Not Reportable 06/04/19 07:00 Elias Bodies Not Reportable 06/04/19 07:00 Hem Pathologist Commnt No 06/04/19 07:00 D-Dimer 2050.33 ng/mlDDU (0-234) H 06/04/19 07:00 ABG pH 7.621 pH Units (7.350-7.450) H* 06/05/19 05:00 ABG pCO2 29.5 mm Hg 06/05/19 05:00 ABG pO2 54.3 mm Hg (80.0-90.0) L 06/05/19 05:00 ABG HCO3 29.8 mmol/L (20.0-26.0) H 06/05/19 05:00 ABG O2 Saturation 97.4 % (95.0-99.0) 06/05/19 05:00 ABG O2 Content 17.8 (0.0-44) 06/05/19 05:00 ABG Base Excess 8.8 mmol/L (-2.0-3.0) H 06/05/19 05:00 ABG Hemoglobin 13.2 gm/dl (12.0-16.0) 06/05/19 05:00 ABG Carboxyhemoglobin 0.8 % (0.0-5.0) 06/05/19 05:00 ABG Methemoglobin 0.4 % (0.0-1.5) 06/05/19 05:00 VBG pH 6.901 (7.320-7.420) L* 06/03/19 11:51 Oxyhemoglobin 96.2 % (95.0-99.0) 06/05/19 05:00 FiO2 45 % 06/05/19 05:00 Sodium 155 mmol/L (137-145) H 06/05/19 03:59 Potassium 3.0 mmol/L (3.6-5.0) L D 06/05/19 03:59 Chloride 114.7 mmol/L (98-107) H 06/05/19 03:59 Carbon Dioxide 24 mmol/L (22-30) 06/05/19 03:59 Anion Gap 19 mmol/L 06/05/19 03:59 BUN 13 mg/dL (7-17) 06/05/19 03:59 Creatinine 0.6 mg/dL (0.7-1.2) L 06/05/19 03:59 Estimated GFR > 60 ml/min 06/05/19 03:59 BUN/Creatinine Ratio 22 % 06/05/19 03:59 Glucose 136 mg/dL (65-100) H 06/05/19 03:59 POC Glucose 145 (70-105) H 06/05/19 07:01 Hemoglobin A1c 9.6 % (4-6) H 06/03/19 16:03 Lactic Acid 1.90 mmol/L (0.7-2.0) 06/03/19 21:32 Calcium 9.4 mg/dL (8.4-10.2) 06/05/19 03:59 Phosphorus TNR 06/03/19 17:15 Magnesium TNR 06/03/19 17:15 Ferritin 941.3 ng/mL (13.0-400.0) H 06/04/19 07:00 Total Bilirubin 0.40 mg/dL (0.1-1.2) 06/04/19 07:00 AST 43 units/L (5-40) H 06/04/19 07:00 ALT 22 units/L (7-56) 06/04/19 07:00 Alkaline Phosphatase 90 units/L (35-129) 06/04/19 07:00 Lactate Dehydrogenase 590 units/L (91-180) H 06/04/19 07:00 Troponin T < 0.010 ng/mL (0.00-0.029) 06/03/19 11:51 C-Reactive Protein 22.70 mg/dL (0.00-1.30) H 06/04/19 07:00 Total Protein 7.1 g/dL (6.3-8.2) 06/04/19 07:00 Albumin 2.9 g/dL (3.9-5) L 06/04/19 07:00 Albumin/Globulin Ratio 0.7 % 06/04/19 07:00 Triglycerides 424 mg/dL (2-149) H 06/03/19 19:00 Cholesterol 250 mg/dL (50-199) H 06/03/19 19:00 LDL Cholesterol Direct TNR 06/03/19 19:00 HDL Cholesterol 46 mg/dL (40-59) 06/03/19 19:00 Cholesterol/HDL Ratio 5.43 % 06/03/19 19:00 Urine Color Yellow (Yellow) 06/03/19 11:48 Urine Turbidity Clear (Clear) 06/03/19 11:48 Urine pH 6.0 (5.0-7.0) 06/03/19 11:48 Ur Specific [place] 1.026 (1.003-1.030) 06/03/19 11:48 Urine Protein 100 mg/dl mg/dL (Negative) 06/03/19 11:48 Urine Glucose (UA) >=500 mg/dL (Negative) 06/03/19 11:48 Urine Ketones 80 mg/dL (Negative) 06/03/19 11:48 Urine Blood Mod (Negative) 06/03/19 11:48 Urine Nitrite Neg (Negative) 06/03/19 11:48 Urine Bilirubin Neg (Negative) 06/03/19 11:48 Urine Urobilinogen < 2.0 mg/dL (<2.0) 06/03/19 11:48 Ur Leukocyte Esterase Neg (Negative) 06/03/19 11:48 Urine WBC (Auto) 1.0 /HPF (0.0-6.0) 06/03/19 11:48 Urine RBC (Auto) 2.0 /HPF (0.0-6.0) 06/03/19 11:48 Granular Casts 4 /LPF 06/03/19 11:48 Urine Mucus Few /HPF 06/03/19 11:48 Urine Creatinine 37.4 mg/dL (0.1-20.0) H 06/03/19 11:48 Urine Microalbumin 65.1 mg/dL (0.1-34.0) H 06/03/19 11:48 Microalb/Creat Ratio 1740.6 ug/mg 06/03/19 11:48 Urine HCG, Qual Negative (Negative) 06/03/19 11:48 Salicylates < 0.3 mg/dL (2.8-20.0) L 06/03/19 11:51 Urine Opiates Screen Presumptive negative 06/03/19 11:48 Urine Methadone Screen Presumptive negative 06/03/19 11:48 Acetaminophen < 5.0 ug/mL (10.0-30.0) L 06/03/19 11:51 Ur Barbiturates Screen Presumptive negative 06/03/19 11:48 Ur Phencyclidine Scrn Presumptive negative 06/03/19 11:48 Ur Amphetamines Screen Presumptive negative 06/03/19 11:48 U Benzodiazepines Scrn Presumptive negative 06/03/19 11:48 Urine Cocaine Screen Presumptive negative 06/03/19 11:48 U Marijuana (THC) Screen Presumptive negative 06/03/19 11:48 Drugs of Abuse Note Disclamer 06/03/19 11:48 Plasma/Serum Alcohol < 0.01 % (0-0.07) 06/03/19 11:51 Hepatitis A IgM Ab Non-reactive (NonReactive) 06/04/19 08:19 Hep Bs Antigen Non-reactive (Negative) 06/04/19 08:19 Hep B Core IgM Ab Non-reactive (NonReactive) 06/04/19 08:19 Hepatitis C Antibody Non-reactive (NonReactive) 06/04/19 08:19 Influenza A (Rapid) Negative (Negative) 06/03/19 Unknown Influenza B (Rapid) Negative (Negative) 06/03/19 Unknown Microbiology: Microbiology 06/03/19 Unknown Peripheral/Venous Blood Culture - Preliminary NO GROWTH AFTER 24 HOURS 06/03/19 Unknown Peripheral/Venous Blood Culture - Preliminary NO GROWTH AFTER 24 HOURS 06/03/19 Unknown Urine,Catheterized - Straight Catheter Urine Culture - Preliminary NO GROWTH AFTER 24 HOURS Alves/IV: Voiding Method Indwelling Catheter IV Catheter Type [Left Hand] INT / Saline Lock IV Catheter Type [Right INT / Saline Lock Antecubital] IV Catheter Type [Left Peripheral IV Antecubital] Active Medications - Current Medications Current Medications: Generic Name Dose Route Start Last Admin Trade Name Freq PRN Reason Stop Dose Admin Albuterol 2.5 mg 06/03/19 13:57 Proventil IH Q3HRT PRN Shortness Of Breath Dextrose 50 ml 06/03/19 13:57 D50w (25gm) Syringe IV Q30MIN PRN Hypoglycemia Protocol Dextrose 50 ml 06/05/19 08:01 D50w (25gm) Syringe IV Q30MIN PRN Hypoglycemia Protocol Famotidine 20 mg 06/04/19 10:00 06/04/19 21:47 Pepcid IV 20 mg BID JOSE ROBERTO Administration Heparin Sodium (Porcine) 5,000 unit 06/03/19 14:15 06/04/19 21:47 Heparin SUB-Q 5,000 unit Q12HR JOSE ROBERTO Administration Hydrophilic Ointment 1 applic 06/03/19 11:02 Vaseline Lip Therapy TP Q2HR PRN Dry Lips Hydroxychloroquine Sulfate 200 mg 06/04/19 10:00 06/04/19 21:46 Plaquenil PO 06/07/19 22:01 200 mg BID JOSE ROBERTO Administration Propofol 1,000 mg in 100 mls @ 2.346 mls/hr 06/03/19 12:00 06/05/19 06:54 Diprivan 10 Mg/Ml IV 10 mcg/kg/min TITR JOSE ROBERTO 4.692 mls/hr Administration Protocol 5 MCG/KG/MIN Vancomycin HCl 1 gm in 250 mls @ 166.667 mls/hr 06/04/19 10:00 06/04/19 10:03 Vancomycin/Ns 1 Gm/250 Ml IV 166.667 mls/hr Q12HR JOSE ROBERTO Administration Cefepime HCl 2 gm in 100 mls @ 200 mls/hr 06/03/19 22:00 06/04/19 21:47 Cefepime/Ns 2 Gm/100 Ml IV 200 mls/hr Q12HR [facility] Administration Protocol Metronidazole 500 mg in 100 mls @ 100 mls/hr 06/04/19 09:00 06/05/19 07:01 Flagyl 500 Mg/100 Ml IV 100 mls/hr Q8HR [facility] Administration Protocol Potassium Chloride 10 meq in 100 mls @ 100 mls/hr 06/05/19 07:00 Kcl 10meq/100ml IV 06/05/19 14:59 Q1H [facility] Insulin Glargine 20 units 06/05/19 22:00 Lantus SUB-Q QHS [facility] Insulin Human Lispro 0 unit 06/03/19 18:00 06/04/19 17:23 Humalog SUB-Q Not Given Q6HR [facility] Protocol Insulin Human Regular 0 units 06/05/19 12:00 Humulin R SUB-Q Q6HR JOSE ROBERTO Protocol Multi-Ingred Cream/Lotion/Oil/Oint 1 applic 06/03/19 11:02 Artificial Tears Ophth Oint OU Q4HR PRN Dry Eye(s) Senna 8.6 mg 06/03/19 22:00 06/04/19 21:47 Senokot PO 8.6 mg BID JOSE ROBERTO Administration Sodium Chloride 10 ml 06/03/19 22:00 06/04/19 10:07 Sodium Chloride Flush Syringe 10 Ml IV 10 ml BID JOSE ROBERTO Administration Sodium Chloride 10 ml 06/03/19 13:57 Sodium Chloride Flush Syringe 10 Ml IV PRN PRN LINE FLUSH Nutrition/Malnutrition Assess - Dietary Evaluation Nutrition/Malnutrition Findings: Nutrition Notes Start: 06/04/19 08:30 Freq: Status: Active Protocol: Document 06/04/19 08:30 LM (Rec: 06/04/19 08:38 LM [id number]) Nutrition Notes Need for Assessment generated 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 Nathaniel score 17 nut with no skin breakdown. Pt is on the vent. Burn Absent Trauma Absent Current % PO Negligible Minimum of two criteria No physical signs of malnutrition #1 Nutrition Diagnosis Inadequate oral intake Etiology Mechanical vent As Evidenced by Signs and Symptoms Pt NPO Is patient on ventilator? Yes Is Patient Ambulatory and/or Out of Bed No REE-([facility]-confined to bed) 3151.719 Calculation Used for Recommendations [facility] Additional Notes Protein: 90-150g (1.2-2g/kg) Fluid: 1 ml/kcal Nutrition Intervention Change Diet Order: TF when medically feasible Nutrition Support: Vital AF 1.2 at 60 ml/hr Flush 200 ml q4h for hypernatremia Flush 100 ml q4h once hypernatremia resolves Kcal 1,728 Protein (gm) 108 Fluid (mL) 1,168 Goal #1 Start TF when medically feasible Anticipated Discharge Needs: unable to determine at this time Follow-Up By: 06/08/19 Additional Comments F/U for TF consult
[2019-06-05] MEDS: POTASSIUM CHLORIDE 10 MEQ 10 MEQ/100 ML BAG IV SCH ×4 (08:53→12:25)
[2019-06-05] MEDS ORDERED: POTASSIUM CHLORIDE 10 MEQ 10 MEQ/100 ML BAG IV SCH (09:00)
[2019-06-05] MEDS: FAMOTIDINE 20 MG/2 ML INJ IV SCH ×2 (09:02→23:06)
[2019-06-05] MEDS: SENNOSIDES 8.6 MG TAB PO SCH ×2 (09:02→23:06)
[2019-06-05] MEDS: HEPARIN 5,000 UNIT/1 ML VIAL SUB-Q SCH ×2 (09:05→23:06)
[2019-06-05] MEDS: HYDROXYCHLOROQUINE 200 MG TAB PO SCH ×2 (09:05→23:06)
[2019-06-05] MEDS: INSULIN REGULAR, HUMAN 100 UNITS/1 ML SUB-Q SCH ×3 (09:06→18:19)
[2019-06-05] MEDS: INSULIN LISPRO 100 UNIT/ML SUB-Q SCH ×2 (09:06→09:07)
[2019-06-05] MEDS: CEFEPIME/NS 2 GM/100 ML 2 GM/100 ML BAG IV SCH (09:09)
[2019-06-05] MEDS: VANCOMYCIN/NS 1 GM/250 ML 1 GM/250 ML BAG IV SCH ×5 (09:32→23:07)
[2019-06-05] MEDS ORDERED: SIMPLE SYRUP 15 ML FEEDTUBE PRN ×2 (09:59)
[2019-06-05] MEDS ORDERED: LIPASE 10,500/PROTEASE 25,000/AMYLASE 43,750 (UNITS) DR CAP FEEDTUBE PRN (09:59)
[2019-06-05] MEDS ORDERED: SODIUM BICARBONATE 325 MG TAB FEEDTUBE PRN (09:59)
--- NOTE | 2019-06-05 10:37 | Progress Note ---
Assessment and Plan Sepsis secondary to pneumonia-with hypothermia Acute hypoxic respiratory failure ,orally intubated on mechanical ventilation PUI-COVID 19 DKA Diabetes mellitus with uncontrolled blood sugar Acute metabolic encephalopathy Pneumonia Leukocytosis Paroxysmal atrial fibrillation likely new onset Severe metabolic acidosis Hypernatremia Hypokalemia Oropharyngeal dysphagia, OGT in place -Continue with MVS, Lung protective strategies, monitor airway pressures -ABG in am -VAP bundle addressed -Continue aspiration precautions, HOB>40 -Follow up COVID-19 results -Free water flushes- increase -Continue daily assessment for readiness for SBT, SAT -Start enteric nutritional support ; anion gap has normalized- start Glucerna - Monitor glycemic control, with target blood glucose 140-180 mg/dL while critically ill. -Avoid hypoglycemia - Continue to wean supplemental oxygen for target O2 sats > 90% - Goal to keep Potassium 4 and Magnesium 2 to optimize respiratory muscle function -ABG and CXR in am -VTE prophylaxis on heparin -Stress ulcer prophylaxis- Famotidine -Continue to avoid nephrotoxins, adjust all medications for CrCL and GFR -Follow up BMP and CBC in the morning - Continue bronchodilators with pulmonary hygiene - Continue prn analgesia per CPOT score - Continue to maintain of sleep-wake cycle, avoid delirium - PT/OT/ROM exercises - Continue mobility protocol and skin assessment per protocol for pressure ulcer prevention -Influenza and pneumonia vaccinations to be administered today - continue other care per attending / other consultants CONDITION: CRITICAL PROGNOSIS: GUARDED CODE STATUS: FULL CODE The high probability of a clinically significant, sudden or life threatening deterioration of the [pulmonary, neurology, endocrine,] system(s) required my full and direct attention, intervention and personal management. The aggregate critical care time was [31] minutes. This time is in addition to time spent performing reported procedures but includes the following: [x] Data Review and interpretation [x] Patient assessment and monitoring of vital signs [x] Documentation [x] Medication orders and management Subjective Date of service: 06/05/19 Interval history: Follow up for: Acute hypoxemic respiratory failure;DKA; Acute metabolic encephalopathy; Sepsis; Fevers; SHARITA; Seen and examined. Vitals, labs, medications, chart and imaging reviewed. Resting in bed on full mechanical ventilatory support; ETT at 21 cm at the lip. Currently on AC-VC 26/450/6/45 On bicarbonate infusion, Propofol at 5 mcg, with restrains in place Alves catheter with good urine ouput, no fevers overnight Currently on Vancomycin , Cefepime, Flagyl. Started on Lantus insulin, Glucerna to be started this morning 12 lead EKG reveiwed- QTc 380 On day 05/06 of Plaquenil. Hypokalemia and hypernatremic on BMP OGT in place Objective Vital Signs - 12hr 06/04/19 06/04/19 06/04/19 22:41 22:51 23:00 Temperature Pulse Rate 114 H 114 H 115 H Pulse Rate [ From Monitor] Respiratory 32 H 28 H 19 Rate Blood Pressure 118/78 117/75 109/75 O2 Sat by Pulse 97 96 96 Oximetry 06/04/19 06/04/19 06/04/19 23:11 23:21 23:30 Temperature Pulse Rate 114 H 113 H 118 H Pulse Rate [ From Monitor] Respiratory 23 29 H 27 H Rate Blood Pressure 109/75 107/77 126/79 O2 Sat by Pulse 96 97 97 Oximetry 06/04/19 06/04/19 06/05/19 23:41 23:51 00:00 Temperature 97.8 F Pulse Rate 116 H 115 H 118 H Pulse Rate [ 114 H From Monitor] Respiratory 26 H 30 H 34 H Rate Blood Pressure 126/79 119/77 124/79 O2 Sat by Pulse 97 97 97 Oximetry 06/05/19 06/05/19 06/05/19 00:11 00:21 00:30 Temperature Pulse Rate 112 H 114 H 115 H Pulse Rate [ From Monitor] Respiratory 22 32 H 31 H Rate Blood Pressure 124/79 120/77 117/73 O2 Sat by Pulse 97 97 96 Oximetry 06/05/19 06/05/19 06/05/19 00:41 00:43 00:51 Temperature Pulse Rate 116 H 113 H 115 H Pulse Rate [ From Monitor] Respiratory 30 H 29 H Rate Blood Pressure 117/73 120/77 115/74 O2 Sat by Pulse 96 96 98 Oximetry 06/05/19 06/05/19 06/05/19 01:00 01:11 01:21 Temperature Pulse Rate 118 H 115 H 113 H Pulse Rate [ From Monitor] Respiratory 30 H 30 H 30 H Rate Blood Pressure 118/80 118/80 115/74 O2 Sat by Pulse 97 97 97 Oximetry 06/05/19 06/05/19 06/05/19 01:30 01:41 01:51 Temperature Pulse Rate 115 H 110 H 112 H Pulse Rate [ From Monitor] Respiratory 30 H 30 H 30 H Rate Blood Pressure 109/77 109/77 114/75 O2 Sat by Pulse 97 98 98 Oximetry 06/05/19 06/05/19 06/05/19 02:00 02:11 02:21 Temperature Pulse Rate 114 H 112 H 109 H Pulse Rate [ From Monitor] Respiratory 30 H 29 H 30 H Rate Blood Pressure 122/74 122/74 116/77 O2 Sat by Pulse 98 97 98 Oximetry 06/05/19 06/05/19 06/05/19 02:30 02:41 02:51 Temperature Pulse Rate 110 H 110 H 112 H Pulse Rate [ From Monitor] Respiratory 30 H 30 H 30 H Rate Blood Pressure 113/74 113/74 115/77 O2 Sat by Pulse 98 98 98 Oximetry 06/05/19 06/05/19 06/05/19 03:00 03:11 03:21 Temperature Pulse Rate 109 H 115 H Pulse Rate [ From Monitor] Respiratory 22 24 25 H Rate Blood Pressure 121/76 121/76 121/76 O2 Sat by Pulse 97 95 98 Oximetry 06/05/19 06/05/19 06/05/19 03:30 03:41 03:51 Temperature Pulse Rate 114 H 111 H 107 H Pulse Rate [ From Monitor] Respiratory 25 H 23 30 H Rate Blood Pressure 118/79 118/79 114/82 O2 Sat by Pulse 96 98 97 Oximetry 06/05/19 06/05/19 06/05/19 04:00 04:11 04:21 Temperature 98.2 F Pulse Rate 109 H 107 H 108 H Pulse Rate [ 109 H From Monitor] Respiratory 30 H 30 H 30 H Rate Blood Pressure 119/80 119/80 119/80 O2 Sat by Pulse 98 97 97 Oximetry 06/05/19 06/05/19 06/05/19 04:30 04:41 04:51 Temperature Pulse Rate 109 H 112 H 108 H Pulse Rate [ From Monitor] Respiratory 29 H 30 H 30 H Rate Blood Pressure 117/77 117/77 121/71 O2 Sat by Pulse 97 97 97 Oximetry 06/05/19 06/05/19 06/05/19 05:00 05:11 05:21 Temperature Pulse Rate 112 H 109 H 109 H Pulse Rate [ From Monitor] Respiratory 27 H 30 H 30 H Rate Blood Pressure 119/73 119/73 105/71 O2 Sat by Pulse 96 96 97 Oximetry 06/05/19 06/05/19 06/05/19 05:30 05:32 05:41 Temperature Pulse Rate 111 H 103 H 109 H Pulse Rate [ From Monitor] Respiratory 30 H 30 H Rate Blood Pressure 114/73 114/73 O2 Sat by Pulse 97 97 97 Oximetry 06/05/19 06/05/19 06/05/19 05:51 06:00 06:11 Temperature Pulse Rate 108 H 106 H 108 H Pulse Rate [ From Monitor] Respiratory 30 H 30 H 30 H Rate Blood Pressure 107/75 106/71 106/71 O2 Sat by Pulse 97 97 96 Oximetry 06/05/19 06/05/19 06/05/19 06:30 06:45 07:00 Temperature Pulse Rate 107 H 106 H 105 H Pulse Rate [ From Monitor] Respiratory 30 H 26 H 26 H Rate Blood Pressure 112/71 110/77 108/75 O2 Sat by Pulse 97 98 97 Oximetry 06/05/19 06/05/19 06/05/19 07:15 07:30 07:45 Temperature Pulse Rate 107 H 108 H 105 H Pulse Rate [ From Monitor] Respiratory 26 H 26 H 26 H Rate Blood Pressure 118/74 119/74 122/76 O2 Sat by Pulse 98 97 98 Oximetry 06/05/19 06/05/19 06/05/19 08:00 08:15 08:30 Temperature Pulse Rate 103 H 105 H 102 H Pulse Rate [ From Monitor] Respiratory 26 H 18 21 Rate Blood Pressure 112/70 123/79 126/75 O2 Sat by Pulse 98 97 97 Oximetry 06/05/19 06/05/19 06/05/19 08:45 09:00 09:15 Temperature Pulse Rate 103 H 101 H 108 H Pulse Rate [ From Monitor] Respiratory 20 17 26 H Rate Blood Pressure 120/79 105/74 123/80 O2 Sat by Pulse 97 98 97 Oximetry 06/05/19 06/05/19 06/05/19 09:30 09:45 10:00 Temperature Pulse Rate 111 H 109 H 105 H Pulse Rate [ From Monitor] Respiratory 26 H 26 H 22 Rate Blood Pressure 123/79 126/84 128/83 O2 Sat by Pulse 97 97 97 Oximetry 06/05/19 06/05/19 10:15 10:30 Temperature Pulse Rate 105 H 104 H Pulse Rate [ From Monitor] Respiratory 27 H 26 H Rate Blood Pressure 128/83 133/82 O2 Sat by Pulse 98 99 Oximetry Constitutional: no acute distress, asleep, other (Atraumatic, normocephalic, no patient -ventilator dyssynchrony) Eyes: non-icteric ENT: other (OGT in place, ETT in palce) Neck: supple, no lymphadenopathy, no JVD Effort: normal Ascultation: Bilateral: clear, diminished breath sounds Cardiovascular: irregular rhythm, other (S1,S2, no murmurs) Gastrointestinal: normoactive bowel sounds, soft, non-tender, tender Integumentary: normal Neurologic: unable to assess (sedated) Psychiatric: other (sedated) CBC and BMP: 06/07/19 04:43 06/07/19 15:31 ABG, PT/INR, D-dimer: ABG ABG pH 7.621 pH Units (7.350-7.450) H* 06/05/19 05:00 ABG pCO2 29.5 mm Hg 06/05/19 05:00 ABG pO2 54.3 mm Hg (80.0-90.0) L 06/05/19 05:00 ABG O2 Saturation 97.4 % (95.0-99.0) 06/05/19 05:00 PT/INR, D-dimer D-Dimer 2050.33 ng/mlDDU (0-234) H 06/04/19 07:00 Abnormal lab findings: Abnormal Labs 06/03/19 06/03/19 06/03/19 10:59 11:15 11:48 WBC RBC Hgb Hct RDW Seg Neuts % (Manual) Lymphocytes % (Manual) Monocytes % (Manual) Seg Neutrophils # Man Lymphocytes # (Manual) Monocytes # (Manual) D-Dimer ABG pH ABG pO2 ABG HCO3 ABG O2 Saturation ABG Base Excess ABG Hemoglobin VBG pH Oxyhemoglobin Sodium Potassium Chloride Carbon Dioxide BUN Creatinine Glucose POC Glucose 372 H Hemoglobin A1c Lactic Acid Calcium Phosphorus 11.70 H Magnesium 4.40 H Ferritin AST Alkaline Phosphatase Lactate Dehydrogenase C-Reactive Protein Total Protein Albumin Triglycerides Cholesterol Urine Creatinine 37.4 H Urine Microalbumin 65.1 H Salicylates Acetaminophen 06/03/19 06/03/19 06/03/19 11:51 11:51 11:51 WBC 23.3 H RBC 6.43 H Hgb 17.7 H Hct 59.9 H* RDW 17.1 H Seg Neuts % (Manual) 71.0 H Lymphocytes % (Manual) 11.0 L Monocytes % (Manual) 8.0 H Seg Neutrophils # Man 16.5 H Lymphocytes # (Manual) Monocytes # (Manual) 1.9 H D-Dimer ABG pH ABG pO2 ABG HCO3 ABG O2 Saturation ABG Base Excess ABG Hemoglobin VBG pH Oxyhemoglobin Sodium Potassium Chloride Carbon Dioxide 4 L* BUN 41 H Creatinine 1.8 H Glucose 636 H* POC Glucose Hemoglobin A1c Lactic Acid 3.20 H* Calcium 10.9 H Phosphorus Magnesium Ferritin AST 43 H Alkaline Phosphatase 147 H Lactate Dehydrogenase 673 H C-Reactive Protein 14.70 H Total Protein 8.9 H Albumin Triglycerides Cholesterol Urine Creatinine Urine Microalbumin Salicylates Acetaminophen 06/03/19 06/03/19 06/03/19 11:51 11:51 11:51 WBC RBC Hgb Hct RDW Seg Neuts % (Manual) Lymphocytes % (Manual) Monocytes % (Manual) Seg Neutrophils # Man Lymphocytes # (Manual) Monocytes # (Manual) D-Dimer ABG pH ABG pO2 ABG HCO3 ABG O2 Saturation ABG Base Excess ABG Hemoglobin VBG pH 6.901 L* Oxyhemoglobin Sodium Potassium Chloride Carbon Dioxide BUN Creatinine Glucose POC Glucose Hemoglobin A1c Lactic Acid Calcium Phosphorus Magnesium Ferritin AST Alkaline Phosphatase Lactate Dehydrogenase C-Reactive Protein Total Protein Albumin Triglycerides Cholesterol Urine Creatinine Urine Microalbumin Salicylates < 0.3 L Acetaminophen < 5.0 L 06/03/19 06/03/19 06/03/19 11:51 11:51 12:34 WBC RBC Hgb Hct RDW Seg Neuts % (Manual) Lymphocytes % (Manual) Monocytes % (Manual) Seg Neutrophils # Man Lymphocytes # (Manual) Monocytes # (Manual) D-Dimer 4311.60 H ABG pH ABG pO2 ABG HCO3 ABG O2 Saturation ABG Base Excess ABG Hemoglobin VBG pH Oxyhemoglobin Sodium Potassium Chloride Carbon Dioxide BUN Creatinine Glucose POC Glucose Hemoglobin A1c Lactic Acid 5.20 H* Calcium Phosphorus Magnesium Ferritin 1037.0 H AST Alkaline Phosphatase Lactate Dehydrogenase C-Reactive Protein Total Protein Albumin Triglycerides Cholesterol Urine Creatinine Urine Microalbumin Salicylates Acetaminophen 06/03/19 06/03/19 06/03/19 14:30 16:03 17:00 WBC RBC Hgb Hct RDW Seg Neuts % (Manual) Lymphocytes % (Manual) Monocytes % (Manual) Seg Neutrophils # Man Lymphocytes # (Manual) Monocytes # (Manual) D-Dimer ABG pH 6.880 L* ABG pO2 489.9 H ABG HCO3 7.1 L ABG O2 Saturation 99.6 H ABG Base Excess -26.1 L ABG Hemoglobin 16.2 H VBG pH Oxyhemoglobin Sodium Potassium Chloride Carbon Dioxide BUN Creatinine Glucose POC Glucose 335 H Hemoglobin A1c 9.6 H Lactic Acid Calcium Phosphorus Magnesium Ferritin AST Alkaline Phosphatase Lactate Dehydrogenase C-Reactive Protein Total Protein Albumin Triglycerides Cholesterol Urine Creatinine Urine Microalbumin Salicylates Acetaminophen 06/03/19 06/03/19 06/03/19 18:14 18:24 19:00 WBC RBC Hgb Hct RDW Seg Neuts % (Manual) Lymphocytes % (Manual) Monocytes % (Manual) Seg Neutrophils # Man Lymphocytes # (Manual) Monocytes # (Manual) D-Dimer ABG pH 7.057 L* ABG pO2 97.2 H ABG HCO3 5.5 L ABG O2 Saturation ABG Base Excess -23.0 L ABG Hemoglobin 18.1 H VBG pH Oxyhemoglobin 94.4 L Sodium Potassium Chloride Carbon Dioxide BUN Creatinine Glucose POC Glucose 285 H Hemoglobin A1c Lactic Acid 3.40 H* Calcium Phosphorus Magnesium Ferritin AST Alkaline Phosphatase Lactate Dehydrogenase C-Reactive Protein Total Protein Albumin Triglycerides Cholesterol Urine Creatinine Urine Microalbumin Salicylates Acetaminophen 06/03/19 06/03/19 06/03/19 19:00 19:00 19:52 WBC RBC Hgb Hct RDW Seg Neuts % (Manual) Lymphocytes % (Manual) Monocytes % (Manual) Seg Neutrophils # Man Lymphocytes # (Manual) Monocytes # (Manual) D-Dimer ABG pH ABG pO2 ABG HCO3 ABG O2 Saturation ABG Base Excess ABG Hemoglobin VBG pH Oxyhemoglobin Sodium 151 H Potassium Chloride 120.8 H Carbon Dioxide 6 L* BUN 33 H Creatinine 1.4 H Glucose 339 H POC Glucose 316 H Hemoglobin A1c Lactic Acid Calcium Phosphorus Magnesium Ferritin AST 47 H Alkaline Phosphatase 130 H Lactate Dehydrogenase C-Reactive Protein Total Protein Albumin 3.7 L Triglycerides 424 H Cholesterol 250 H Urine Creatinine Urine Microalbumin Salicylates Acetaminophen 06/03/19 06/03/19 06/03/19 20:21 20:21 21:01 WBC RBC Hgb Hct RDW Seg Neuts % (Manual) Lymphocytes % (Manual) Monocytes % (Manual) Seg Neutrophils # Man Lymphocytes # (Manual) Monocytes # (Manual) D-Dimer ABG pH ABG pO2 ABG HCO3 ABG O2 Saturation ABG Base Excess ABG Hemoglobin VBG pH Oxyhemoglobin Sodium 153 H Potassium Chloride 121.8 H Carbon Dioxide 6 L* BUN 34 H Creatinine 1.3 H Glucose 324 H POC Glucose 245 H Hemoglobin A1c Lactic Acid 3.10 H* Calcium Phosphorus Magnesium Ferritin AST Alkaline Phosphatase Lactate Dehydrogenase C-Reactive Protein Total Protein Albumin Triglycerides Cholesterol Urine Creatinine Urine Microalbumin Salicylates Acetaminophen 06/03/19 06/03/19 06/03/19 21:25 21:32 22:42 WBC RBC Hgb Hct RDW Seg Neuts % (Manual) Lymphocytes % (Manual) Monocytes % (Manual) Seg Neutrophils # Man Lymphocytes # (Manual) Monocytes # (Manual) D-Dimer ABG pH 7.172 L* ABG pO2 107.2 H ABG HCO3 5.2 L ABG O2 Saturation ABG Base Excess -20.5 L ABG Hemoglobin 17.3 H VBG pH Oxyhemoglobin Sodium 155 H Potassium 2.6 L* D Chloride 130.1 H Carbon Dioxide 5 L* BUN 24 H Creatinine Glucose 212 H POC Glucose 225 H Hemoglobin A1c Lactic Acid Calcium 5.8 L* D Phosphorus Magnesium Ferritin AST Alkaline Phosphatase Lactate Dehydrogenase C-Reactive Protein Total Protein Albumin Triglycerides Cholesterol Urine Creatinine Urine Microalbumin Salicylates Acetaminophen 06/03/19 06/04/19 06/04/19 23:32 00:04 01:25 WBC RBC Hgb Hct RDW Seg Neuts % (Manual) Lymphocytes % (Manual) Monocytes % (Manual) Seg Neutrophils # Man Lymphocytes # (Manual) Monocytes # (Manual) D-Dimer ABG pH ABG pO2 ABG HCO3 ABG O2 Saturation ABG Base Excess ABG Hemoglobin VBG pH Oxyhemoglobin Sodium 151 H 151 H Potassium 1.5 L* D Chloride 139.0 H 124.7 H Carbon Dioxide 3 L* 9 L* BUN 31 H Creatinine 0.2 L D Glucose 117 H 241 H POC Glucose 231 H Hemoglobin A1c Lactic Acid Calcium 3.1 L* D Phosphorus Magnesium Ferritin AST Alkaline Phosphatase Lactate Dehydrogenase C-Reactive Protein Total Protein Albumin Triglycerides Cholesterol Urine Creatinine Urine Microalbumin Salicylates Acetaminophen 06/04/19 06/04/19 06/04/19 01:34 02:45 03:21 WBC RBC Hgb Hct RDW Seg Neuts % (Manual) Lymphocytes % (Manual) Monocytes % (Manual) Seg Neutrophils # Man Lymphocytes # (Manual) Monocytes # (Manual) D-Dimer ABG pH ABG pO2 ABG HCO3 ABG O2 Saturation ABG Base Excess ABG Hemoglobin VBG pH Oxyhemoglobin Sodium Potassium Chloride Carbon Dioxide BUN Creatinine Glucose POC Glucose 194 H 189 H 183 H Hemoglobin A1c Lactic Acid Calcium Phosphorus Magnesium Ferritin AST Alkaline Phosphatase Lactate Dehydrogenase C-Reactive Protein Total Protein Albumin Triglycerides Cholesterol Urine Creatinine Urine Microalbumin Salicylates Acetaminophen 06/04/19 06/04/19 06/04/19 04:50 05:07 06:27 WBC RBC Hgb Hct RDW Seg Neuts % (Manual) Lymphocytes % (Manual) Monocytes % (Manual) Seg Neutrophils # Man Lymphocytes # (Manual) Monocytes # (Manual) D-Dimer ABG pH ABG pO2 76.5 L ABG HCO3 12.9 L ABG O2 Saturation ABG Base Excess -9.0 L ABG Hemoglobin VBG pH Oxyhemoglobin Sodium Potassium Chloride Carbon Dioxide BUN Creatinine Glucose POC Glucose 200 H 164 H Hemoglobin A1c Lactic Acid Calcium Phosphorus Magnesium Ferritin AST Alkaline Phosphatase Lactate Dehydrogenase C-Reactive Protein Total Protein Albumin Triglycerides Cholesterol Urine Creatinine Urine Microalbumin Salicylates Acetaminophen 06/04/19 06/04/19 06/04/19 07:00 07:00 07:00 WBC 13.4 H RBC 5.54 H Hgb 15.3 H Hct 46.1 H D RDW Seg Neuts % (Manual) 72.0 H Lymphocytes % (Manual) 6.0 L Monocytes % (Manual) Seg Neutrophils # Man 9.6 H Lymphocytes # (Manual) 0.8 L Monocytes # (Manual) D-Dimer ABG pH ABG pO2 ABG HCO3 ABG O2 Saturation ABG Base Excess ABG Hemoglobin VBG pH Oxyhemoglobin Sodium 158 H 156 H Potassium 2.7 L* D 2.6 L* Chloride 124.3 H 123.5 H Carbon Dioxide 11 L 11 L BUN 25 H 26 H Creatinine Glucose 192 H 190 H POC Glucose Hemoglobin A1c Lactic Acid Calcium Phosphorus Magnesium Ferritin AST 43 H Alkaline Phosphatase Lactate Dehydrogenase 590 H C-Reactive Protein 22.70 H Total Protein Albumin 2.9 L Triglycerides Cholesterol Urine Creatinine Urine Microalbumin Salicylates Acetaminophen 06/04/19 06/04/19 06/04/19 07:00 07:00 07:14 WBC RBC Hgb Hct RDW Seg Neuts % (Manual) Lymphocytes % (Manual) Monocytes % (Manual) Seg Neutrophils # Man Lymphocytes # (Manual) Monocytes # (Manual) D-Dimer 2050.33 H ABG pH ABG pO2 ABG HCO3 ABG O2 Saturation ABG Base Excess ABG Hemoglobin VBG pH Oxyhemoglobin Sodium Potassium Chloride Carbon Dioxide BUN Creatinine Glucose POC Glucose 176 H Hemoglobin A1c Lactic Acid Calcium Phosphorus Magnesium Ferritin 941.3 H AST Alkaline Phosphatase Lactate Dehydrogenase C-Reactive Protein Total Protein Albumin Triglycerides Cholesterol Urine Creatinine Urine Microalbumin Salicylates Acetaminophen 06/04/19 06/04/19 06/04/19 09:55 11:38 12:19 WBC RBC Hgb Hct RDW Seg Neuts % (Manual) Lymphocytes % (Manual) Monocytes % (Manual) Seg Neutrophils # Man Lymphocytes # (Manual) Monocytes # (Manual) D-Dimer ABG pH ABG pO2 ABG HCO3 ABG O2 Saturation ABG Base Excess ABG Hemoglobin VBG pH Oxyhemoglobin Sodium Potassium Chloride Carbon Dioxide BUN Creatinine Glucose POC Glucose 184 H 145 H 144 H Hemoglobin A1c Lactic Acid Calcium Phosphorus Magnesium Ferritin AST Alkaline Phosphatase Lactate Dehydrogenase C-Reactive Protein Total Protein Albumin Triglycerides Cholesterol Urine Creatinine Urine Microalbumin Salicylates Acetaminophen 06/04/19 06/04/19 06/04/19 13:35 14:29 15:06 WBC RBC Hgb Hct RDW Seg Neuts % (Manual) Lymphocytes % (Manual) Monocytes % (Manual) Seg Neutrophils # Man Lymphocytes # (Manual) Monocytes # (Manual) D-Dimer ABG pH ABG pO2 ABG HCO3 ABG O2 Saturation ABG Base Excess ABG Hemoglobin VBG pH Oxyhemoglobin Sodium 157 H Potassium 2.4 L* Chloride 121.4 H Carbon Dioxide 20 L D BUN 21 H Creatinine Glucose 176 H POC Glucose 151 H 142 H Hemoglobin A1c Lactic Acid Calcium Phosphorus Magnesium Ferritin AST Alkaline Phosphatase Lactate Dehydrogenase C-Reactive Protein Total Protein Albumin Triglycerides Cholesterol Urine Creatinine Urine Microalbumin Salicylates Acetaminophen 06/04/19 06/04/19 06/04/19 17:14 17:51 21:45 WBC RBC Hgb Hct RDW Seg Neuts % (Manual) Lymphocytes % (Manual) Monocytes % (Manual) Seg Neutrophils # Man Lymphocytes # (Manual) Monocytes # (Manual) D-Dimer ABG pH ABG pO2 ABG HCO3 ABG O2 Saturation ABG Base Excess ABG Hemoglobin VBG pH Oxyhemoglobin Sodium Potassium Chloride Carbon Dioxide BUN Creatinine Glucose POC Glucose 200 H 159 H 143 H Hemoglobin A1c Lactic Acid Calcium Phosphorus Magnesium Ferritin AST Alkaline Phosphatase Lactate Dehydrogenase C-Reactive Protein Total Protein Albumin Triglycerides Cholesterol Urine Creatinine Urine Microalbumin Salicylates Acetaminophen 06/04/19 06/04/19 06/04/19 22:20 22:21 23:27 WBC RBC Hgb Hct RDW Seg Neuts % (Manual) Lymphocytes % (Manual) Monocytes % (Manual) Seg Neutrophils # Man Lymphocytes # (Manual) Monocytes # (Manual) D-Dimer ABG pH 7.572 H ABG pO2 58.5 L ABG HCO3 ABG O2 Saturation ABG Base Excess 3.5 H ABG Hemoglobin 20.0 H VBG pH Oxyhemoglobin 94.6 L Sodium Potassium Chloride Carbon Dioxide BUN Creatinine Glucose POC Glucose 154 H 147 H Hemoglobin A1c Lactic Acid Calcium Phosphorus Magnesium Ferritin AST Alkaline Phosphatase Lactate Dehydrogenase C-Reactive Protein Total Protein Albumin Triglycerides Cholesterol Urine Creatinine Urine Microalbumin Salicylates Acetaminophen 06/05/19 06/05/19 06/05/19 00:27 01:16 02:20 WBC RBC Hgb Hct RDW Seg Neuts % (Manual) Lymphocytes % (Manual) Monocytes % (Manual) Seg Neutrophils # Man Lymphocytes # (Manual) Monocytes # (Manual) D-Dimer ABG pH ABG pO2 ABG HCO3 ABG O2 Saturation ABG Base Excess ABG Hemoglobin VBG pH Oxyhemoglobin Sodium Potassium Chloride Carbon Dioxide BUN Creatinine Glucose POC Glucose 124 H 126 H 156 H Hemoglobin A1c Lactic Acid Calcium Phosphorus Magnesium Ferritin AST Alkaline Phosphatase Lactate Dehydrogenase C-Reactive Protein Total Protein Albumin Triglycerides Cholesterol Urine Creatinine Urine Microalbumin Salicylates Acetaminophen 06/05/19 06/05/19 06/05/19 03:44 03:59 04:52 WBC RBC Hgb Hct RDW Seg Neuts % (Manual) Lymphocytes % (Manual) Monocytes % (Manual) Seg Neutrophils # Man Lymphocytes # (Manual) Monocytes # (Manual) D-Dimer ABG pH ABG pO2 ABG HCO3 ABG O2 Saturation ABG Base Excess ABG Hemoglobin VBG pH Oxyhemoglobin Sodium 155 H Potassium 3.0 L D Chloride 114.7 H Carbon Dioxide BUN Creatinine 0.6 L Glucose 136 H POC Glucose 143 H 141 H Hemoglobin A1c Lactic Acid Calcium Phosphorus Magnesium Ferritin AST Alkaline Phosphatase Lactate Dehydrogenase C-Reactive Protein Total Protein Albumin Triglycerides Cholesterol Urine Creatinine Urine Microalbumin Salicylates Acetaminophen 06/05/19 06/05/19 06/05/19 05:00 05:54 07:01 WBC RBC Hgb Hct RDW Seg Neuts % (Manual) Lymphocytes % (Manual) Monocytes % (Manual) Seg Neutrophils # Man Lymphocytes # (Manual) Monocytes # (Manual) D-Dimer ABG pH 7.621 H* ABG pO2 54.3 L ABG HCO3 29.8 H ABG O2 Saturation ABG Base Excess 8.8 H ABG Hemoglobin VBG pH Oxyhemoglobin Sodium Potassium Chloride Carbon Dioxide BUN Creatinine Glucose POC Glucose 155 H 145 H Hemoglobin A1c Lactic Acid Calcium Phosphorus Magnesium Ferritin AST Alkaline Phosphatase Lactate Dehydrogenase C-Reactive Protein Total Protein Albumin Triglycerides Cholesterol Urine Creatinine Urine Microalbumin Salicylates Acetaminophen
[2019-06-05] MEDS ORDERED: POTASSIUM CHLORIDE 20 MEQ PACKET FEEDTUBE ONE (11:00)
--- NOTE | 2019-06-05 16:20 | Progress Note ---
Assessment and Plan Cultures: Blood culture 06/03/2019 no growth today Urine culture 06/03/2019 no growth today Assessment: 48 years old female with history of diabetes, hypertension admitted on 06/03/2019 due to acute altered mental status and shortness of breath,t recently returned back from [place] where she went to celebrate her mother's birthday: #Severe sepsis MODS: Present on admission with hypothermia, leukocytosis, elevated lactate and SHARITA; likely due to bilateral pneumonia +/-DKA #Bilateral pneumonia: high suspicion for severe COVID pneumonia. Transmission likely from community recent travel to [place]. COVID test pending. Risk for ARDS is high. Ferritin at1,037. Other possibilities aspiration pneumonia. #Acute hypoxemic respiratory failure/ARDS: intubated #Acute encephalopathy: Likely due to #1 #SHARITA: Renally adjust antibiotics, improving #Diabetes with DKA Recommendations: Obtain procalcitonin Address code status with family Continue COVID isolation precautions per [facility] protocol Follow-up COVID testing Check serial Ferritin, LDH, D-Dimer, CRP every 48 hour Continue hydroxychloroquine 400 mg PO BID for 1 day then 200 mg PO BID for 4 days (total 5 days) Continue cefepime, metronidazole and vancomycin renally adjusted Check MRSA PCR Daily EKG QT monitoring - stop plaqenil if QT interval >500 High risk mortality Will follow Kerrie Garcia MD Infectious Diseases Imaging Analyst [facility] ([facility]) M [phone] O [phone] Subjective Date of service: 06/05/19 Principal diagnosis: robinson pneumonia Interval history: Remains on intubated, no fever, no pressors Objective - Exam Narrative Exam: Exam performed in conjunction with nursings staff due to lack of PPE General appearance: Alert in NAD Eyes: limited due to lack of PPE HENT: Atraumatic; oropharynx limited due to lack of PPE Lungs: Diminished bilateral per RT CV: RRR Abdomen: limited due to lack of PPE Extremities: limited due to lack of PPE Skin: No rash. Psych: Appropriate affect, alert and oriented to person, place and time. Neuro: alert and oriented x 3. Moving all extermities - Constitutional Vitals: Vital Signs Temp Pulse Resp BP Pulse Ox 98.6 F 103 H 23 142/94 98 06/05/19 12:00 06/05/19 16:15 06/05/19 16:15 06/05/19 16:15 06/05/19 16:15 Temperature -Last 24 Hours Temperature 98.6 F Temperature 99.1 F Temperature 98.2 F Temperature 97.8 F Temperature 98.9 F - Labs CBC & Chem 7: 06/04/19 07:00 06/05/19 03:59 Labs: Abnormal lab results 06/04/19 06/04/19 06/04/19 Range/Units 15:06 17:14 17:51 ABG pH (7.350-7.450) pH Units ABG pO2 (80.0-90.0) mm Hg ABG HCO3 (20.0-26.0) mmol/L ABG Base Excess (-2.0-3.0) mmol/L ABG Hemoglobin (12.0-16.0) gm/dl Oxyhemoglobin (95.0-99.0) % Sodium (137-145) mmol/L Potassium 2.4 L* (3.6-5.0) mmol/L Chloride (98-107) mmol/L Creatinine (0.7-1.2) mg/dL Glucose (65-100) mg/dL POC Glucose 200 H 159 H (70-105) 06/04/19 06/04/19 06/04/19 Range/Units 21:45 22:20 22:21 ABG pH 7.572 H (7.350-7.450) pH Units ABG pO2 58.5 L (80.0-90.0) mm Hg ABG HCO3 (20.0-26.0) mmol/L ABG Base Excess 3.5 H (-2.0-3.0) mmol/L ABG Hemoglobin 20.0 H (12.0-16.0) gm/dl Oxyhemoglobin 94.6 L (95.0-99.0) % Sodium (137-145) mmol/L Potassium (3.6-5.0) mmol/L Chloride (98-107) mmol/L Creatinine (0.7-1.2) mg/dL Glucose (65-100) mg/dL POC Glucose 143 H 154 H (70-105) 06/04/19 06/05/19 06/05/19 Range/Units 23:27 00:27 01:16 ABG pH (7.350-7.450) pH Units ABG pO2 (80.0-90.0) mm Hg ABG HCO3 (20.0-26.0) mmol/L ABG Base Excess (-2.0-3.0) mmol/L ABG Hemoglobin (12.0-16.0) gm/dl Oxyhemoglobin (95.0-99.0) % Sodium (137-145) mmol/L Potassium (3.6-5.0) mmol/L Chloride (98-107) mmol/L Creatinine (0.7-1.2) mg/dL Glucose (65-100) mg/dL POC Glucose 147 H 124 H 126 H (70-105) 06/05/19 06/05/19 06/05/19 Range/Units 02:20 03:44 03:59 ABG pH (7.350-7.450) pH Units ABG pO2 (80.0-90.0) mm Hg ABG HCO3 (20.0-26.0) mmol/L ABG Base Excess (-2.0-3.0) mmol/L ABG Hemoglobin (12.0-16.0) gm/dl Oxyhemoglobin (95.0-99.0) % Sodium 155 H (137-145) mmol/L Potassium 3.0 L D (3.6-5.0) mmol/L Chloride 114.7 H (98-107) mmol/L Creatinine 0.6 L (0.7-1.2) mg/dL Glucose 136 H (65-100) mg/dL POC Glucose 156 H 143 H (70-105) 06/05/19 06/05/19 06/05/19 Range/Units 04:52 05:00 05:54 ABG pH 7.621 H* (7.350-7.450) pH Units ABG pO2 54.3 L (80.0-90.0) mm Hg ABG HCO3 29.8 H (20.0-26.0) mmol/L ABG Base Excess 8.8 H (-2.0-3.0) mmol/L ABG Hemoglobin (12.0-16.0) gm/dl Oxyhemoglobin (95.0-99.0) % Sodium (137-145) mmol/L Potassium (3.6-5.0) mmol/L Chloride (98-107) mmol/L Creatinine (0.7-1.2) mg/dL Glucose (65-100) mg/dL POC Glucose 141 H 155 H (70-105) 06/05/19 06/05/19 Range/Units 07:01 12:13 ABG pH (7.350-7.450) pH Units ABG pO2 (80.0-90.0) mm Hg ABG HCO3 (20.0-26.0) mmol/L ABG Base Excess (-2.0-3.0) mmol/L ABG Hemoglobin (12.0-16.0) gm/dl Oxyhemoglobin (95.0-99.0) % Sodium (137-145) mmol/L Potassium (3.6-5.0) mmol/L Chloride (98-107) mmol/L Creatinine (0.7-1.2) mg/dL Glucose (65-100) mg/dL POC Glucose 145 H 202 H (70-105)
[2019-06-05] MEDS ORDERED: INSULIN GLARGINE 100 UNITS/ML SUB-Q SCH (22:00)
[2019-06-06] MEDS: CEFEPIME/NS 2 GM/100 ML 2 GM/100 ML BAG IV SCH ×4 (00:55→22:34)
--- NOTE | 2019-06-06 03:13 | XRay Report ---
CHEST 1 VIEW INDICATION / CLINICAL INFORMATION: follow up respiratory failure. COMPARISON: 06/05/2019 FINDINGS: SUPPORT DEVICES: Stable, satisfactory device positioning. HEART / MEDIASTINUM: No significant abnormality. LUNGS / PLEURA: Bilateral parenchymal opacities in the lower lobes have not changed significantly. No pneumothorax. ADDITIONAL FINDINGS: No significant additional findings. IMPRESSION: 1. Stable bilateral lung disease. Signer Name: Ar Das MD Signed: 06/06/2019 3:09 AM Workstation Name: [facility]
[2019-06-06] MEDS: INSULIN REGULAR, HUMAN 100 UNITS/1 ML SUB-Q SCH ×4 (03:16→18:17)
[2019-06-06 05:01] LABS: ABG Base Excess 6.6 mmol/L (-2.0-3.0); ABG Methemoglobin 0.5 % (0.0-1.5); ABG Oxygen Saturation 97.1 % (95.0-99.0); ABG PCO2 29.2 mm Hg; ABG PH 7.6 pH Units (7.350-7.450); ABG PO2 62.4 mm Hg (80.0-90.0)
[2019-06-06 05:29] LABS: Hematocrit 42.5 % (30.3-42.9); Mean Corpuscular HGB Conc 33 % (30-34); Mean Corpuscular Volume 83 fl (79-97); Platelet Count 225 K/mm3 (140-440); Red Cell Distribution Width 13.9 % (13.2-15.2)
[2019-06-06 06:55] LABS: BUN/Creatinine Ratio 35; Blood Urea Nitrogen 21 mg/dL (7-17); Calcium 9.9 mg/dL (8.4-10.2); Hemolysis Index 16
[2019-06-06] MEDS: metroNIDAZOLE/NS 500 MG/100 ML 500 MG/100 ML BAG IV SCH ×3 (08:58→22:34)
[2019-06-06] MEDS: HEPARIN 5,000 UNIT/1 ML VIAL SUB-Q SCH ×2 (08:59→22:35)
[2019-06-06] MEDS: HYDROXYCHLOROQUINE 200 MG TAB PO SCH ×2 (08:59→22:34)
[2019-06-06] MEDS: FAMOTIDINE 20 MG TAB PO SCH ×2 (09:00→22:36)
[2019-06-06] MEDS: SENNOSIDES 8.6 MG TAB PO SCH ×2 (09:00→22:36)
[2019-06-06] MEDS: VANCOMYCIN/NS 1 GM/250 ML 1 GM/250 ML BAG IV SCH ×2 (09:08→18:18)
[2019-06-06] MEDS ORDERED: SODIUM CHLORIDE 0.9% 500 ML 500 ML ONE (09:13)
[2019-06-06] MEDS: INSULIN GLARGINE 100 UNITS/ML SUB-Q SCH ×2 (09:38→18:17)
--- NOTE | 2019-06-06 10:07 | Progress Note ---
Assessment and Plan Assessment and plan: Mrs. Tomas is a 48-year-old female with a history of hypertension, type 2 diabetes mellitus events with altered mental status. She arrived per EMS. Last known time normal 10 PM last night. Patient is nonverbal. History obtained from paramedics and electronic medical record. Patient had been ill with fever cough for the past several days. She recently returned back from [place]. EMS discovered patient to be altered with work of breathing. Patient is nonverbal. She was not moving her right side. She is hypoxic at 77% room air. Blood pressure was 140/97. Blood sugar was elevated fingerstick. Hx obtained from [facility] realized that patient was not speaking 4 AM. Found her later breathing really heavy. Unresponsive. When she came back from [place] last Saturday. She had high fever. Her doctor ordered test for COVID-19. Dr. Rausch her PCP informed patient that she tested negative. She went to [place] to celebrate her mother's birthday. On admission she was noted to be in DKA and started on DKA protocol. She was also intubated and on full mechanical ventilatory support. Diagnostic work-up so far EKG shows sinus tachycardia with MAT CT head no acute intracranial process CT cervical spine patchy groundglass consolidative airspace disease right mid to lower lung Mrs. Tomas presents with altered mental status hypoxia. She required mechanical ventilation for oxygenation and airway control. Initially was not moving her right side. With oxygen supplementation she began to move both of her arms. She continued to be nonverbal. She did not follow commands prior to intubation. With CT chest findings and history of fever I strongly suspect COVID 19. Although she previously tested negative there is significant support of false negative test so we will retest. survey form was filled out in the ED by the ED physician through the [facility] department of health as a person under investigation for COVID 19. Char guy returned 1 week ago from [place] after celebrating her mother's birthday. Acute hypoxic respiratory failure mild on mechanical ventilation DKA-resolved Diabetes mellitus with uncontrolled blood sugar Hypokalemia Hypernatremia Acute metabolic encephalopathy Right upper extremity weakness now resolved Pneumonia Leukocytosis Sepsis secondary to pneumonia-with hypothermia Rule out COVID 19 Severe metabolic acidosis Plan 06/04: Remains on full mechanical support. Patient with respiratory alkalosis noted. Adjustment made to the ventilator to decrease the rate. Will replace potassium as hypokalemia still persist. Hypernatremia gradually improving will adjust free water. Patient's anion gap is finally closed will transition to sliding scale coverage with Lantus. Anticipate weaning trial today if patient is amendable to it. Oxygen at requirements per vent settings appears to be improving 4/4: Leukocytosis improving although patient still hypoxic on the ventilator. Awaiting COVID 19 testing results. In addition continue antibiotics for broad- spectrum coverage. Will adjust insulin for better blood sugar control. Continue intensive care monitoring. Roving Frame Tender and infectious disease consult input noted EKG reviewed no evidence of atrial fibrillation will repeat. Replace potassium DKA protocol with insulin-will be discontinued f/u COVID test - pending Continue COVID isolation precautions per [facility] protocol Will likely be started on Plaquenil and azithromycin but will defer to ID physician Obtain serial Ferritin, LDH, D-Dimer, CRP every 48h Empiric antibiotic coverage, obtain blood cultures and urine cultures and sputum cultures. Wean from vent as tolerated defer to data sciences director We will monitor EKG for any visualization of the atrial fibrillation. If persist will obtain cardiology consult. DVT and GI prophylaxis The high probability of a clinically significant, sudden or life threatening deterioration of the [pulmonary, neuro,] system(s) required my full and direct attention, intervention and personal management. The aggregate critical care time was [35] minutes. This time is in addition to time spent performing reported procedures but includes the following: [x] Data Review and interpretation [x] Patient assessment and monitoring of vital signs [x] Documentation [x] Medication orders and management History Interval history: Patient seen and examined remains on the vent. Remains agitated as a result increased sedation. No acute events reported overnight Hospitalist Physical - Physical exam Narrative exam: VITAL SIGNS: Reviewed. limited exam due to limited COVID19 PPE GENERAL: The patient appears normally developed, sedated and intubated vital signs as documented. HEAD: No signs of head trauma. EYES: Pupils are equal. Unable to examine EARS: Unable to examine MOUTH: Oropharynx is normal. ET tube in place NECK: No adenopathy, no JVD. CHEST: Chest with clear breath sounds bilaterally. No wheezes, rales, or rhonchi. CARDIAC: Regular rate and rhythm. S1 and S2, without murmurs, gallops, or rubs. VASCULAR: No Edema. Peripheral pulses normal and equal in all extremities. ABDOMEN: Soft, non tender and non distended. No rebound or guarding, and no masses palpated. Bowel Sounds normal. MUSCULOSKELETAL: Per ED documentation was moving left arm but not the right arm.. Extremities without clubbing, cyanosis or edema. NEUROLOGIC EXAM: Intubated and sedated PSYCHIATRIC: Unable to examine SKIN: detail exam as documented in skin assessment - Constitutional Vitals: Temp Pulse Resp BP Pulse Ox 97.9 F 96 H 20 148/96 99 06/06/19 08:00 06/06/19 09:15 06/06/19 09:15 06/06/19 09:15 06/06/19 09:15 MACK score - Mack Score Age > 65: (0) No 3 or more CAD Risk Factors: (1) Yes 2 or more Angina events in past 24 hrs: (0) No Known CAD with more than 50% Stenosis: (0) No Elevated Cardiac Markers: (0) No ST Deviation Greater than 0.5mm: (0) No Results - Labs CBC & Chem 7: 06/06/19 04:37 06/06/19 04:37 Labs: Laboratory Last Values WBC 12.2 K/mm3 (4.5-11.0) H 06/06/19 04:37 RBC 5.10 M/mm3 (3.65-5.03) H 06/06/19 04:37 Hgb 14.0 gm/dl (10.1-14.3) 06/06/19 04:37 Hct 42.5 % (30.3-42.9) 06/06/19 04:37 MCV 83 fl (79-97) 06/06/19 04:37 MCH 27 pg (28-32) L 06/06/19 04:37 MCHC 33 % (30-34) 06/06/19 04:37 RDW 13.9 % (13.2-15.2) 06/06/19 04:37 Plt Count 225 K/mm3 (140-440) 06/06/19 04:37 Lymph % (Auto) Outreach Nurse 06/03/19 11:51 [place] % (Auto) Outreach Nurse 06/03/19 11:51 Eos % (Auto) Outreach Nurse 06/03/19 11:51 Baso % (Auto) Outreach Nurse 06/03/19 11:51 Lymph # Outreach Nurse 06/03/19 11:51 [place] # Outreach Nurse 06/03/19 11:51 Eos # Outreach Nurse 06/03/19 11:51 Baso # Outreach Nurse 06/03/19 11:51 Add Manual Diff Complete 06/04/19 07:00 Total Counted 100 06/04/19 07:00 Seg Neutrophils % Outreach Nurse 06/04/19 07:00 Seg Neuts % (Manual) 72.0 % (40.0-70.0) H 06/04/19 07:00 Band Neutrophils % 20.0 % 06/04/19 07:00 Lymphocytes % (Manual) 6.0 % (13.4-35.0) L 06/04/19 07:00 Reactive Lymphs % (Man) 0 % 06/04/19 07:00 Monocytes % (Manual) 2.0 % (0.0-7.3) 06/04/19 07:00 Eosinophils % (Manual) 0 % (0.0-4.3) 06/04/19 07:00 Basophils % (Manual) 0 % (0.0-1.8) 06/04/19 07:00 Metamyelocytes % 0 % 06/04/19 07:00 Myelocytes % 0 % 06/04/19 07:00 Promyelocytes % 0 % 06/04/19 07:00 Blast Cells % 0 % 06/04/19 07:00 Nucleated RBC % Not Reportable 06/04/19 07:00 Seg Neutrophils # Outreach Nurse 06/03/19 11:51 Seg Neutrophils # Man 9.6 K/mm3 (1.8-7.7) H 06/04/19 07:00 Band Neutrophils # 2.7 K/mm3 06/04/19 07:00 Lymphocytes # (Manual) 0.8 K/mm3 (1.2-5.4) L 06/04/19 07:00 Abs React Lymphs (Man) 0.0 K/mm3 06/04/19 07:00 Monocytes # (Manual) 0.3 K/mm3 (0.0-0.8) 06/04/19 07:00 Eosinophils # (Manual) 0.0 K/mm3 (0.0-0.4) 06/04/19 07:00 Basophils # (Manual) 0.0 K/mm3 (0.0-0.1) 06/04/19 07:00 Metamyelocytes # 0.0 K/mm3 06/04/19 07:00 Myelocytes # 0.0 K/mm3 06/04/19 07:00 Promyelocytes # 0.0 K/mm3 06/04/19 07:00 Blast Cells # 0.0 K/mm3 06/04/19 07:00 WBC Morphology Not Reportable 06/04/19 07:00 Hypersegmented Neuts Not Reportable 06/04/19 07:00 Hyposegmented Neuts Not Reportable 06/04/19 07:00 Hypogranular Neuts Not Reportable 06/04/19 07:00 Smudge Cells Not Reportable 06/04/19 07:00 Toxic Granulation Not Reportable 06/04/19 07:00 Toxic Vacuolation Not Reportable 06/04/19 07:00 Dohle Bodies Not Reportable 06/04/19 07:00 Pelger-Huet Anomaly Not Reportable 06/04/19 07:00 Stephanie Rods Not Reportable 06/04/19 07:00 Platelet Estimate Consistent w auto 06/04/19 07:00 Clumped Platelets Not Reportable 06/04/19 07:00 Plt Clumps, EDTA Not Reportable 06/04/19 07:00 Large Platelets Not Reportable 06/04/19 07:00 Giant Platelets Not Reportable 06/04/19 07:00 Platelet Satelliting Not Reportable 06/04/19 07:00 Plt Morphology Comment Not Reportable 06/04/19 07:00 RBC Morphology Normal 06/04/19 07:00 Dimorphic RBCs Not Reportable 06/04/19 07:00 Polychromasia Not Reportable 06/04/19 07:00 Hypochromasia Not Reportable 06/04/19 07:00 Poikilocytosis Not Reportable 06/04/19 07:00 Anisocytosis Not Reportable 06/04/19 07:00 Microcytosis Not Reportable 06/04/19 07:00 Macrocytosis Not Reportable 06/04/19 07:00 Spherocytes Not Reportable 06/04/19 07:00 Pappenheimer Bodies Not Reportable 06/04/19 07:00 Sickle Cells Not Reportable 06/04/19 07:00 Target Cells Not Reportable 06/04/19 07:00 Tear Drop Cells Not Reportable 06/04/19 07:00 Ovalocytes Not Reportable 06/04/19 07:00 Helmet Cells Not Reportable 06/04/19 07:00 [place] Bodies Not Reportable 06/04/19 07:00 [place] Rings Not Reportable 06/04/19 07:00 [place] Cells Not Reportable 06/04/19 07:00 Bite Cells Not Reportable 06/04/19 07:00 Crenated Cell Not Reportable 06/04/19 07:00 Elliptocytes Not Reportable 06/04/19 07:00 Acanthocytes (Spur) Not Reportable 06/04/19 07:00 Rouleaux Not Reportable 06/04/19 07:00 Hemoglobin C Crystals Not Reportable 06/04/19 07:00 Schistocytes Not Reportable 06/04/19 07:00 Malaria parasites Not Reportable 06/04/19 07:00 Elias Bodies Not Reportable 06/04/19 07:00 Hem Pathologist Commnt No 06/04/19 07:00 D-Dimer 1279.22 ng/mlDDU (0-234) H 06/06/19 04:37 ABG pH 7.600 pH Units (7.350-7.450) H 06/06/19 04:16 ABG pCO2 29.2 mm Hg 06/06/19 04:16 ABG pO2 62.4 mm Hg (80.0-90.0) L 06/06/19 04:16 ABG HCO3 28.0 mmol/L (20.0-26.0) H 06/06/19 04:16 ABG O2 Saturation 97.1 % (95.0-99.0) 06/06/19 04:16 ABG O2 Content 14.1 (0.0-44) 06/06/19 04:16 ABG Base Excess 6.6 mmol/L (-2.0-3.0) H 06/06/19 04:16 ABG Hemoglobin 10.4 gm/dl (12.0-16.0) L 06/06/19 04:16 ABG Carboxyhemoglobin 1.0 % (0.0-5.0) 06/06/19 04:16 ABG Methemoglobin 0.5 % (0.0-1.5) 06/06/19 04:16 VBG pH 6.901 (7.320-7.420) L* 06/03/19 11:51 Oxyhemoglobin 95.7 % (95.0-99.0) 06/06/19 04:16 FiO2 45 % 06/06/19 04:16 Sodium 156 mmol/L (137-145) H 06/06/19 04:37 Potassium 3.4 mmol/L (3.6-5.0) L 06/06/19 04:37 Chloride 112.9 mmol/L (98-107) H 06/06/19 04:37 Carbon Dioxide 24 mmol/L (22-30) 06/06/19 04:37 Anion Gap 23 mmol/L 06/06/19 04:37 BUN 21 mg/dL (7-17) H 06/06/19 04:37 Creatinine 0.6 mg/dL (0.7-1.2) L 06/06/19 04:37 Estimated GFR > 60 ml/min 06/06/19 04:37 BUN/Creatinine Ratio 35 % 06/06/19 04:37 Glucose 332 mg/dL (65-100) H 06/06/19 04:37 POC Glucose 303 (70-105) H 06/06/19 05:45 Hemoglobin A1c 9.6 % (4-6) H 06/03/19 16:03 Lactic Acid 1.90 mmol/L (0.7-2.0) 06/03/19 21:32 Calcium 9.9 mg/dL (8.4-10.2) 06/06/19 04:37 Phosphorus TNR 06/03/19 17:15 Magnesium TNR 06/03/19 17:15 Ferritin 1649.0 ng/mL (13.0-400.0) H 06/06/19 04:37 Total Bilirubin 0.40 mg/dL (0.1-1.2) 06/04/19 07:00 AST 43 units/L (5-40) H 06/04/19 07:00 ALT 22 units/L (7-56) 06/04/19 07:00 Alkaline Phosphatase 90 units/L (35-129) 06/04/19 07:00 Lactate Dehydrogenase 578 units/L (91-180) H 06/06/19 04:37 Troponin T < 0.010 ng/mL (0.00-0.029) 06/03/19 11:51 C-Reactive Protein 22.10 mg/dL (0.00-1.30) H 06/06/19 04:37 Total Protein 7.1 g/dL (6.3-8.2) 06/04/19 07:00 Albumin 2.9 g/dL (3.9-5) L 06/04/19 07:00 Albumin/Globulin Ratio 0.7 % 06/04/19 07:00 Triglycerides 424 mg/dL (2-149) H 06/03/19 19:00 Cholesterol 250 mg/dL (50-199) H 06/03/19 19:00 LDL Cholesterol Direct TNR 06/03/19 19:00 HDL Cholesterol 46 mg/dL (40-59) 06/03/19 19:00 Cholesterol/HDL Ratio 5.43 % 06/03/19 19:00 Urine Color Yellow (Yellow) 06/03/19 11:48 Urine Turbidity Clear (Clear) 06/03/19 11:48 Urine pH 6.0 (5.0-7.0) 06/03/19 11:48 Ur Specific Epes 1.026 (1.003-1.030) 06/03/19 11:48 Urine Protein 100 mg/dl mg/dL (Negative) 06/03/19 11:48 Urine Glucose (UA) >=500 mg/dL (Negative) 06/03/19 11:48 Urine Ketones 80 mg/dL (Negative) 06/03/19 11:48 Urine Blood Mod (Negative) 06/03/19 11:48 Urine Nitrite Neg (Negative) 06/03/19 11:48 Urine Bilirubin Neg (Negative) 06/03/19 11:48 Urine Urobilinogen < 2.0 mg/dL (<2.0) 06/03/19 11:48 Ur Leukocyte Esterase Neg (Negative) 06/03/19 11:48 Urine WBC (Auto) 1.0 /HPF (0.0-6.0) 06/03/19 11:48 Urine RBC (Auto) 2.0 /HPF (0.0-6.0) 06/03/19 11:48 Granular Casts 4 /LPF 06/03/19 11:48 Urine Mucus Few /HPF 06/03/19 11:48 Urine Creatinine 37.4 mg/dL (0.1-20.0) H 06/03/19 11:48 Urine Microalbumin 65.1 mg/dL (0.1-34.0) H 06/03/19 11:48 Microalb/Creat Ratio 1740.6 ug/mg 06/03/19 11:48 Urine HCG, Qual Negative (Negative) 06/03/19 11:48 Vancomycin Trough 4.2 ug/mL (5.0-20.0) L 06/05/19 21:00 Salicylates < 0.3 mg/dL (2.8-20.0) L 06/03/19 11:51 Urine Opiates Screen Presumptive negative 06/03/19 11:48 Urine Methadone Screen Presumptive negative 06/03/19 11:48 Acetaminophen < 5.0 ug/mL (10.0-30.0) L 06/03/19 11:51 Ur Barbiturates Screen Presumptive negative 06/03/19 11:48 Ur Phencyclidine Scrn Presumptive negative 06/03/19 11:48 Ur Amphetamines Screen Presumptive negative 06/03/19 11:48 U Benzodiazepines Scrn Presumptive negative 06/03/19 11:48 Urine Cocaine Screen Presumptive negative 06/03/19 11:48 U Marijuana (THC) Screen Presumptive negative 06/03/19 11:48 Drugs of Abuse Note Disclamer 06/03/19 11:48 Plasma/Serum Alcohol < 0.01 % (0-0.07) 06/03/19 11:51 Hepatitis A IgM Ab Non-reactive (NonReactive) 06/04/19 08:19 Hep Bs Antigen Non-reactive (Negative) 06/04/19 08:19 Hep B Core IgM Ab Non-reactive (NonReactive) 06/04/19 08:19 Hepatitis C Antibody Non-reactive (NonReactive) 06/04/19 08:19 Influenza A (Rapid) Negative (Negative) 06/03/19 Unknown Influenza B (Rapid) Negative (Negative) 06/03/19 Unknown Microbiology: Microbiology 06/03/19 Unknown Peripheral/Venous Blood Culture - Preliminary NO GROWTH AFTER 48 HOURS 06/03/19 Unknown Peripheral/Venous Blood Culture - Preliminary NO GROWTH AFTER 48 HOURS 06/03/19 Unknown Urine,Catheterized - Straight Catheter Urine Culture - Carine l NO GROWTH AFTER 48 HOURS Alves/IV: Voiding Method External Female Catheter IV Catheter Type [Right Hand] INT / Saline Lock IV Catheter Type [Left Hand] INT / Saline Lock IV Catheter Type [Right INT / Saline Lock Antecubital] IV Catheter Type [Left Peripheral IV Antecubital] Active Medications - Current Medications Current Medications: Generic Name Dose Route Start Last Admin Trade Name Freq PRN Reason Stop Dose Admin Albuterol 2.5 mg 06/03/19 13:57 Proventil IH Q3HRT PRN Shortness Of Breath Lipase/Protease/Amylase 1 each 06/05/19 09:[address] 10,500 Unit FEEDTUBE PRN PRN For Clogged Feeding Tube Dextrose 50 ml 06/03/19 13:57 D50w (25gm) Syringe IV Q30MIN PRN Hypoglycemia Protocol Famotidine 20 mg 06/06/19 10:00 06/06/19 09:00 Pepcid PO 20 mg BID JOSE ROBERTO Administration Heparin Sodium (Porcine) 5,000 unit 06/03/19 14:15 06/06/19 08:59 Heparin SUB-Q 5,000 unit Q12HR JOSE ROBERTO Administration Hydrophilic Ointment 1 applic 06/03/19 11:02 Vaseline Lip Therapy TP Q2HR PRN Dry Lips Hydroxychloroquine Sulfate 200 mg 06/04/19 10:00 06/06/19 08:59 Plaquenil PO 06/07/19 22:01 200 mg BID JOSE ROBERTO Administration Propofol 1,000 mg in 100 mls @ 2.346 mls/hr 06/03/19 12:00 06/06/19 09:15 Diprivan 10 Mg/Ml IV 15 mcg/kg/min TITR JOSE ROBERTO 7.038 mls/hr Titration Protocol 5 MCG/KG/MIN Cefepime HCl 2 gm in 100 mls @ 200 mls/hr 06/03/19 22:00 06/06/19 09:00 Cefepime/Ns 2 Gm/100 Ml IV 200 mls/hr Q12HR JOSE ROBERTO Administration Protocol Metronidazole 500 mg in 100 mls @ 100 mls/hr 06/04/19 09:00 06/06/19 08:58 Flagyl 500 Mg/100 Ml IV 100 mls/hr Q8HR JOSE ROBERTO Administration Protocol Vancomycin HCl 1 gm in 250 mls @ 166.667 mls/hr 06/06/19 10:00 06/06/19 09:08 Vancomycin/Ns 1 Gm/250 Ml IV 166.667 mls/hr Q8H JOSE ROBERTO Administration Insulin Glargine 20 units 06/06/19 09:00 06/06/19 09:38 Lantus SUB-Q 20 units BIDDIAB JOSE ROBERTO Administration Insulin Human Regular 0 units 06/05/19 09:00 06/06/19 06:14 Humulin R SUB-Q 8 units Q6HR JOSE ROBERTO Administration Protocol Multi-Ingred Cream/Lotion/Oil/Oint 1 applic 06/03/19 11:02 Artificial Tears Ophth Oint OU Q4HR PRN Dry Eye(s) Senna 8.6 mg 06/03/19 22:00 06/06/19 09:00 Senokot PO 8.6 mg BID JOSE ROBERTO Administration Simple Syrup 15 ml 06/05/19 09:59 Simple Syrup FEEDTUBE PRN PRN Hypoglycemia Simple Syrup 30 ml 06/05/19 09:59 Simple Syrup FEEDTUBE PRN PRN Hypoglycemia Sodium Bicarbonate 325 mg 06/05/19 09:59 Sodium Bicarbonate FEEDTUBE PRN PRN For Clogged Feeding Tube Sodium Chloride 10 ml 06/03/19 22:00 06/06/19 09:11 Sodium Chloride Flush Syringe 10 Ml IV 10 ml BID JOSE ROBERTO Administration Sodium Chloride 10 ml 06/03/19 13:57 Sodium Chloride Flush Syringe 10 Ml IV PRN PRN LINE FLUSH Nutrition/Malnutrition Assess - Dietary Evaluation Nutrition/Malnutrition Findings: Nutrition Notes Start: 06/04/19 08:30 Freq: Status: Active Protocol: Document 06/05/19 09:58 LM (Rec: 06/05/19 09:59 LM [id number]) Nutrition Notes Need for Assessment generated from: MD Order Initial or Follow up Brief Note Current Diagnosis Diabetes,Sepsis,Hypertension, Respiratory Failure, Hyperlipidemia Other Pertinent Diagnosis Suspected COVID-19, Pneu, metabolic encephalopathy Current Diet NPO Labs/Tests Na 155 K 3 Subjective/Other Information MD consult for TF. Nutrition Intervention Change Diet Order: TF Nutrition Support: Vital AF 1.2 at 60 ml/hr Flush 200 ml q4h for hypernatremia Flush 100 ml q4h once hypernatremia resolves Kcal 1,728 Protein (gm) 108 Fluid (mL) 1,168 Goal #1 TF start/tolerance Follow-Up By: 06/08/19 Additional Comments F/U for TF start/tolerance
[2019-06-06 12:05] LABS: ABG Base Excess 6.4 mmol/L (-2.0-3.0); ABG HCO3 29.7 mmol/L (20.0-26.0); ABG Methemoglobin 0.5 % (0.0-1.5); ABG Oxygen Saturation 98.5 % (95.0-99.0); ABG PH 7.511 pH Units (7.350-7.450)
[2019-06-07] MEDS: INSULIN REGULAR, HUMAN 100 UNITS/1 ML SUB-Q SCH ×4 (00:14→18:00)
[2019-06-07 05:10] LABS: ABG Base Excess 8.6 mmol/L (-2.0-3.0); ABG HCO3 32.6 mmol/L (20.0-26.0); ABG Methemoglobin 0.5 % (0.0-1.5); ABG Oxygen Saturation 90.6 % (95.0-99.0); ABG PCO2 42.1 mm Hg; ABG PH 7.507 pH Units (7.350-7.450); ABG PO2 46.4 mm Hg (80.0-90.0)
[2019-06-07 05:10] LABS: Hematocrit 43.4 % (30.3-42.9); Hemoglobin 14.1 gm/dl (10.1-14.3); Mean Corpuscular HGB Conc 33 % (30-34); Mean Corpuscular Volume 85 fl (79-97); Platelet Count 236 K/mm3 (140-440); Red Blood Count 5.14 M/mm3 (3.65-5.03); Red Cell Distribution Width 14.2 % (13.2-15.2)
[2019-06-07] MEDS: metroNIDAZOLE/NS 500 MG/100 ML 500 MG/100 ML BAG IV SCH ×3 (05:13→22:00)
[2019-06-07 05:32] LABS: BUN/Creatinine Ratio 54; Blood Urea Nitrogen 27 mg/dL (7-17); Calcium 9.5 mg/dL (8.4-10.2); Hemolysis Index 6
--- NOTE | 2019-06-07 07:02 | XRay Report ---
CHEST 1 VIEW INDICATION / CLINICAL INFORMATION: follow up respiratory failure. COMPARISON: 06/06/2019 FINDINGS: SUPPORT DEVICES: Stable, satisfactory device positioning. HEART / MEDIASTINUM: No significant abnormality. LUNGS / PLEURA: Bilateral pleural-parenchymal opacities are slightly improved No pneumothorax. ADDITIONAL FINDINGS: No significant additional findings. IMPRESSION: 1. Slight improvement of basilar opacities. Signer Name: Ar Das MD Signed: 06/07/2019 6:58 AM Workstation Name: [id number]
[2019-06-07] MEDS: VANCOMYCIN/NS 1 GM/250 ML 1 GM/250 ML BAG IV SCH ×2 (07:35→09:30)
[2019-06-07] MEDS: INSULIN GLARGINE 100 UNITS/ML SUB-Q SCH (08:16)
[2019-06-07] MEDS: hydrALAZINE 20 MG/1 ML INJ IV PRN ×2 (09:14→16:08)
[2019-06-07] MEDS: POTASSIUM CHLORIDE 10 MEQ 10 MEQ/100 ML BAG IV SCH ×4 (09:22→12:31)
[2019-06-07] MEDS: CEFEPIME/NS 2 GM/100 ML 2 GM/100 ML BAG IV SCH ×2 (09:29→22:14)
[2019-06-07] MEDS: LOSARTAN 50 MG TAB PO SCH (09:31)
[2019-06-07] MEDS: SENNOSIDES 8.6 MG TAB PO SCH ×2 (09:31→22:16)
[2019-06-07] MEDS: FAMOTIDINE 20 MG TAB PO SCH ×2 (09:31→22:00)
[2019-06-07] MEDS: hydroCHLOROthiazide 12.5 MG CAP PO SCH (09:31)
[2019-06-07] MEDS: HEPARIN 5,000 UNIT/1 ML VIAL SUB-Q SCH ×2 (09:31→23:16)
[2019-06-07] MEDS: HYDROXYCHLOROQUINE 200 MG TAB PO SCH ×2 (09:31→22:14)
--- NOTE | 2019-06-07 09:40 | Progress Note ---
Assessment and Plan Cultures: Blood culture 06/03/2019 no growth today Urine culture 06/03/2019 no growth today Assessment: 48 years old female with history of diabetes, hypertension admitted on 06/03/2019 due to acute altered mental status and shortness of breath,t recently returned back from [place] where she went to celebrate her mother's birthday: #Severe sepsis MODS: improving, no fever, no hypthermia, leukocytosis improving; elevated lactate and SHARITA; likely due to bilateral pneumonia +/-DKA, procal up. #Bilateral pneumonia: high suspicion for severe COVID pneumonia +/- bacterial pneumonia. Transmission likely from community recent travel to [place]. COVID test pending. Risk for ARDS is high. Ferritin at 1,037-->1,649 #Acute hypoxemic respiratory failure/ARDS: intubated FiO2 40% #Acute encephalopathy: Likely due to #1 and high sodium #SHARITA: Renally adjust antibiotics, improving #Diabetes with DKA #Hypernatremia per [facility] Recommendations: Address code status with family, High risk mortality Continue COVID isolation precautions per [facility] protocol Follow-up COVID testing - pending Check serial Ferritin, LDH, D-Dimer, CRP every 48 hour Continue hydroxychloroquine 400 mg PO BID for 1 day then 200 mg PO BID for 4 days (total 5 days) Day 5 of 5 Continue cefepime, metronidazole Stop vancomycin Daily EKG QT monitoring - stop plaqenil if QT interval >500 High risk mortality Will follow Kerrie Garcia MD Infectious Diseases [facility] ([facility]) M [phone] O [phone] Subjective Date of service: 06/07/19 Principal diagnosis: robinson pneumonia Interval history: Remains on intubated, no fever, no pressors Objective - Exam Narrative Exam: Exam performed in conjunction with nursings staff due to lack of PPE General appearance: Alert in NAD Eyes: limited due to lack of PPE HENT: Atraumatic; oropharynx limited due to lack of PPE Lungs: Diminished bilateral per RT CV: RRR Abdomen: limited due to lack of PPE Extremities: limited due to lack of PPE Skin: No rash. Psych: Appropriate affect, alert and oriented to person, place and time. Neuro: alert and oriented x 3. Moving all extermities - Constitutional Vitals: Vital Signs Temp Pulse Resp BP Pulse Ox 98.9 F 112 H 20 145/98 93 06/07/19 08:00 06/07/19 09:31 06/07/19 09:01 06/07/19 09:31 06/07/19 09:01 Temperature -Last 24 Hours Temperature 98.9 F Temperature 98.6 F Temperature 97.6 F Temperature 97.7 F Temperature 97.1 F - Labs CBC & Chem 7: 06/07/19 04:43 06/07/19 04:43 Labs: Abnormal lab results 06/06/19 06/06/19 06/06/19 Range/Units 11:55 12:21 17:06 WBC (4.5-11.0) K/mm3 RBC (3.65-5.03) M/mm3 Hct (30.3-42.9) % MCH (28-32) pg ABG pH 7.511 H (7.350-7.450) pH Units ABG pO2 123.0 H (80.0-90.0) mm Hg ABG HCO3 29.7 H (20.0-26.0) mmol/L ABG O2 Saturation (95.0-99.0) % ABG Base Excess 6.4 H (-2.0-3.0) mmol/L Oxyhemoglobin (95.0-99.0) % Sodium (137-145) mmol/L Potassium (3.6-5.0) mmol/L Chloride (98-107) mmol/L BUN (7-17) mg/dL Creatinine (0.7-1.2) mg/dL Glucose (65-100) mg/dL POC Glucose 281 H 251 H (70-105) Triglycerides (2-149) mg/dL 06/07/19 06/07/19 06/07/19 Range/Units 00:25 04:39 04:43 WBC 13.6 H (4.5-11.0) K/mm3 RBC 5.14 H (3.65-5.03) M/mm3 Hct 43.4 H (30.3-42.9) % MCH 27 L (28-32) pg ABG pH 7.507 H (7.350-7.450) pH Units ABG pO2 46.4 L (80.0-90.0) mm Hg ABG HCO3 32.6 H (20.0-26.0) mmol/L ABG O2 Saturation 90.6 L (95.0-99.0) % ABG Base Excess 8.6 H (-2.0-3.0) mmol/L Oxyhemoglobin 89.2 L (95.0-99.0) % Sodium (137-145) mmol/L Potassium (3.6-5.0) mmol/L Chloride (98-107) mmol/L BUN (7-17) mg/dL Creatinine (0.7-1.2) mg/dL Glucose (65-100) mg/dL POC Glucose 225 H (70-105) Triglycerides (2-149) mg/dL 06/07/19 06/07/19 Range/Units 04:43 04:43 WBC (4.5-11.0) K/mm3 RBC (3.65-5.03) M/mm3 Hct (30.3-42.9) % MCH (28-32) pg ABG pH (7.350-7.450) pH Units ABG pO2 (80.0-90.0) mm Hg ABG HCO3 (20.0-26.0) mmol/L ABG O2 Saturation (95.0-99.0) % ABG Base Excess (-2.0-3.0) mmol/L Oxyhemoglobin (95.0-99.0) % Sodium 166 H* D (137-145) mmol/L Potassium 3.0 L (3.6-5.0) mmol/L Chloride 122.9 H (98-107) mmol/L BUN 27 H (7-17) mg/dL Creatinine 0.5 L (0.7-1.2) mg/dL Glucose 265 H (65-100) mg/dL POC Glucose (70-105) Triglycerides 373 H (2-149) mg/dL
[2019-06-07] MEDS ORDERED: LOSARTAN PO SCH (10:00)
[2019-06-07] MEDS ORDERED: HYDROCHLOROTHIAZIDE PO SCH (10:00)
--- NOTE | 2019-06-07 13:29 | Progress Note ---
Assessment and Plan Assessment and plan: Mrs. Tomas is a 48-year-old female with a history of hypertension, type 2 diabetes mellitus events with altered mental status. She arrived per EMS. Last known time normal 10 PM last night. Patient is nonverbal. History obtained from paramedics and electronic medical record. Patient had been ill with fever cough for the past several days. She recently returned back from [place]. EMS discovered patient to be altered with work of breathing. Patient is nonverbal. She was not moving her right side. She is hypoxic at 77% room air. Blood pressure was 140/97. Blood sugar was elevated fingerstick. Hx obtained from [facility] Love realized that patient was not speaking 4 AM. Found her later breathing really heavy. Unresponsive. When she came back from [place] last Saturday. She had high fever. Her doctor ordered test for COVID-19. Dr. Rausch her PCP informed patient that she tested negative. She went to [place] to celebrate her mother's birthday. On admission she was noted to be in DKA and started on DKA protocol. She was also intubated and on full mechanical ventilatory support. Diagnostic work-up so far EKG shows sinus tachycardia with MAT CT head no acute intracranial process CT cervical spine patchy groundglass consolidative airspace disease right mid to lower lung Mrs. Tomas presents with altered mental status hypoxia. She required mechanical ventilation for oxygenation and airway control. Initially was not moving her right side. With oxygen supplementation she began to move both of her arms. She continued to be nonverbal. She did not follow commands prior to intubation. With CT chest findings and history of fever I strongly suspect COVID 19. Although she previously tested negative there is significant support of false negative test so we will retest. survey form was filled out in the ED by the ED physician through the [facility] department of health as a person under investigation for COVID 19. Char guy returned 1 week ago from [place] after celebrating her mother's birthday. Acute hypoxic respiratory failure mild on mechanical ventilation DKA-resolved Diabetes mellitus with uncontrolled blood sugar Hypokalemia Hypernatremia-remains elevated will increase free water. Blood Pressure Assessment: Patient's blood pressure was elevated (>120/80) but appears stable without evidence of hypertension emergency or urgency. The patient was counseled about the risks of hypertension and urged to pursue outpatient monitoring and therapy within a week with their primary care physician. Acute metabolic encephalopathy Right upper extremity weakness now resolved Pneumonia Leukocytosis Sepsis secondary to pneumonia-with hypothermia Rule out COVID 19 Severe metabolic acidosis Plan 06/04: Remains on full mechanical support. Patient with respiratory alkalosis noted. Adjustment made to the ventilator to decrease the rate. Will replace potassium as hypokalemia still persist. Hypernatremia gradually improving will adjust free water. Patient's anion gap is finally closed will transition to sliding scale coverage with Lantus. Anticipate weaning trial today if patient is amendable to it. Oxygen at requirements per vent settings appears to be improving 06/05: Leukocytosis improving although patient still hypoxic on the ventilator. Awaiting COVID 19 testing results. In addition continue antibiotics for broad- spectrum coverage. Will adjust insulin for better blood sugar control. 06/06: We will increase free water to 300 cc every 4 hours. We will also obtain consultation from egg sorter. Otherwise continue current therapy. Also noted to have diastolic hypertension will adjust blood pressure medications. Initiated home meds. Continue intensive care monitoring. Facing Cutting Machine Operator and infectious disease consult input noted EKG reviewed no evidence of atrial fibrillation will repeat. Replace potassium DKA protocol with insulin-will be discontinued f/u COVID test - pending Continue COVID isolation precautions per [facility] protocol Will likely be started on Plaquenil and azithromycin but will defer to ID physician Obtain serial Ferritin, LDH, D-Dimer, CRP every 48h Empiric antibiotic coverage, obtain blood cultures and urine cultures and sputum cultures. Wean from vent as tolerated defer to biology lecturer We will monitor EKG for any visualization of the atrial fibrillation. If persist will obtain cardiology consult. DVT and GI prophylaxis The high probability of a clinically significant, sudden or life threatening deterioration of the [pulmonary, neuro,] system(s) required my full and direct attention, intervention and personal management. The aggregate critical care ti me was [35] minutes. This time is in addition to time spent performing reported procedures but includes the following: [x] Data Review and interpretation [x] Patient assessment and monitoring of vital signs [x] Documentation [x] Medication orders and management History Interval history: Patient seen and examined remains on the vent. Remains agitated as a result increased sedation. No acute events reported overnight discussed with nursing staff noted that the patient's sodium level was elevated repeat also shows elevated despite free water Hospitalist Physical - Physical exam Narrative exam: VITAL SIGNS: Reviewed. limited exam due to limited COVID19 PPE GENERAL: The patient appears normally developed, sedated and intubated vital signs as documented. HEAD: No signs of head trauma. EYES: Pupils are equal. Unable to examine EARS: Unable to examine MOUTH: Oropharynx is normal. ET tube in place NECK: No adenopathy, no JVD. CHEST: Chest with clear breath sounds bilaterally. No wheezes, rales, or rhonchi. CARDIAC: Regular rate and rhythm. S1 and S2, without murmurs, gallops, or rubs. VASCULAR: No Edema. Peripheral pulses normal and equal in all extremities. ABDOMEN: Soft, non tender and non distended. No rebound or guarding, and no masses palpated. Bowel Sounds normal. MUSCULOSKELETAL: Per ED documentation was moving left arm but not the right arm.. Extremities without clubbing, cyanosis or edema. NEUROLOGIC EXAM: Intubated and sedated PSYCHIATRIC: Unable to examine SKIN: detail exam as documented in skin assessment - Constitutional Vitals: Temp Pulse Resp BP Pulse Ox 98.4 F 106 H 21 145/102 94 06/07/19 11:41 06/07/19 12:00 06/07/19 12:00 06/07/19 12:00 06/07/19 12:00 MACK score - Mack Score Age > 65: (0) No 3 or more CAD Risk Factors: (1) Yes 2 or more Angina events in past 24 hrs: (0) No Known CAD with more than 50% Stenosis: (0) No Elevated Cardiac Markers: (0) No ST Deviation Greater than 0.5mm: (0) No Results - Labs CBC & Chem 7: 06/07/19 04:43 06/07/19 10:12 Labs: Laboratory Last Values WBC 13.6 K/mm3 (4.5-11.0) H 06/07/19 04:43 RBC 5.14 M/mm3 (3.65-5.03) H 06/07/19 04:43 Hgb 14.1 gm/dl (10.1-14.3) 06/07/19 04:43 Hct 43.4 % (30.3-42.9) H 06/07/19 04:43 MCV 85 fl (79-97) 06/07/19 04:43 MCH 27 pg (28-32) L 06/07/19 04:43 MCHC 33 % (30-34) 06/07/19 04:43 RDW 14.2 % (13.2-15.2) 06/07/19 04:43 Plt Count 236 K/mm3 (140-440) 06/07/19 04:43 Lymph % (Auto) Manager Athletics 06/03/19 11:51 [place] % (Auto) Manager Athletics 06/03/19 11:51 Eos % (Auto) Manager Athletics 06/03/19 11:51 Baso % (Auto) Manager Athletics 06/03/19 11:51 Lymph # Manager Athletics 06/03/19 11:51 [place] # Manager Athletics 06/03/19 11:51 Eos # Manager Athletics 06/03/19 11:51 Baso # Manager Athletics 06/03/19 11:51 Add Manual Diff Complete 06/04/19 07:00 Total Counted 100 06/04/19 07:00 Seg Neutrophils % Manager Athletics 06/04/19 07:00 Seg Neuts % (Manual) 72.0 % (40.0-70.0) H 06/04/19 07:00 Band Neutrophils % 20.0 % 06/04/19 07:00 Lymphocytes % (Manual) 6.0 % (13.4-35.0) L 06/04/19 07:00 Reactive Lymphs % (Man) 0 % 06/04/19 07:00 Monocytes % (Manual) 2.0 % (0.0-7.3) 06/04/19 07:00 Eosinophils % (Manual) 0 % (0.0-4.3) 06/04/19 07:00 Basophils % (Manual) 0 % (0.0-1.8) 06/04/19 07:00 Metamyelocytes % 0 % 06/04/19 07:00 Myelocytes % 0 % 06/04/19 07:00 Promyelocytes % 0 % 06/04/19 07:00 Blast Cells % 0 % 06/04/19 07:00 Nucleated RBC % Not Reportable 06/04/19 07:00 Seg Neutrophils # Manager Athletics 06/03/19 11:51 Seg Neutrophils # Man 9.6 K/mm3 (1.8-7.7) H 06/04/19 07:00 Band Neutrophils # 2.7 K/mm3 06/04/19 07:00 Lymphocytes # (Manual) 0.8 K/mm3 (1.2-5.4) L 06/04/19 07:00 Abs React Lymphs (Man) 0.0 K/mm3 06/04/19 07:00 Monocytes # (Manual) 0.3 K/mm3 (0.0-0.8) 06/04/19 07:00 Eosinophils # (Manual) 0.0 K/mm3 (0.0-0.4) 06/04/19 07:00 Basophils # (Manual) 0.0 K/mm3 (0.0-0.1) 06/04/19 07:00 Metamyelocytes # 0.0 K/mm3 06/04/19 07:00 Myelocytes # 0.0 K/mm3 06/04/19 07:00 Promyelocytes # 0.0 K/mm3 06/04/19 07:00 Blast Cells # 0.0 K/mm3 06/04/19 07:00 WBC Morphology Not Reportable 06/04/19 07:00 Hypersegmented Neuts Not Reportable 06/04/19 07:00 Hyposegmented Neuts Not Reportable 06/04/19 07:00 Hypogranular Neuts Not Reportable 06/04/19 07:00 Smudge Cells Not Reportable 06/04/19 07:00 Toxic Granulation Not Reportable 06/04/19 07:00 Toxic Vacuolation Not Reportable 06/04/19 07:00 Dohle Bodies Not Reportable 06/04/19 07:00 Pelger-Huet Anomaly Not Reportable 06/04/19 07:00 Stephanie Rods Not Reportable 06/04/19 07:00 Platelet Estimate Consistent w auto 06/04/19 07:00 Clumped Platelets Not Reportable 06/04/19 07:00 Plt Clumps, EDTA Not Reportable 06/04/19 07:00 Large Platelets Not Reportable 06/04/19 07:00 Giant Platelets Not Reportable 06/04/19 07:00 Platelet Satelliting Not Reportable 06/04/19 07:00 Plt Morphology Comment Not Reportable 06/04/19 07:00 RBC Morphology Normal 06/04/19 07:00 Dimorphic RBCs Not Reportable 06/04/19 07:00 Polychromasia Not Reportable 06/04/19 07:00 Hypochromasia Not Reportable 06/04/19 07:00 Poikilocytosis Not Reportable 06/04/19 07:00 Anisocytosis Not Reportable 06/04/19 07:00 Microcytosis Not Reportable 06/04/19 07:00 Macrocytosis Not Reportable 06/04/19 07:00 Spherocytes Not Reportable 06/04/19 07:00 Pappenheimer Bodies Not Reportable 06/04/19 07:00 Sickle Cells Not Reportable 06/04/19 07:00 Target Cells Not Reportable 06/04/19 07:00 Tear Drop Cells Not Reportable 06/04/19 07:00 Ovalocytes Not Reportable 06/04/19 07:00 Helmet Cells Not Reportable 06/04/19 07:00 Hutchinson-Follansbee Bodies Not Reportable 06/04/19 07:00 Proctor Rings Not Reportable 06/04/19 07:00 [place] Cells Not Reportable 06/04/19 07:00 Bite Cells Not Reportable 06/04/19 07:00 Crenated Cell Not Reportable 06/04/19 07:00 Elliptocytes Not Reportable 06/04/19 07:00 Acanthocytes (Spur) Not Reportable 06/04/19 07:00 Rouleaux Not Reportable 06/04/19 07:00 Hemoglobin C Crystals Not Reportable 06/04/19 07:00 Schistocytes Not Reportable 06/04/19 07:00 Malaria parasites Not Reportable 06/04/19 07:00 Elias Bodies Not Reportable 06/04/19 07:00 Hem Pathologist Commnt No 06/04/19 07:00 D-Dimer 1279.22 ng/mlDDU (0-234) H 06/06/19 04:37 ABG pH 7.507 pH Units (7.350-7.450) H 06/07/19 04:39 ABG pCO2 42.1 mm Hg 06/07/19 04:39 ABG pO2 46.4 mm Hg (80.0-90.0) L 06/07/19 04:39 ABG HCO3 32.6 mmol/L (20.0-26.0) H 06/07/19 04:39 ABG O2 Saturation 90.6 % (95.0-99.0) L 06/07/19 04:39 ABG O2 Content 19.4 (0.0-44) 06/07/19 04:39 ABG Base Excess 8.6 mmol/L (-2.0-3.0) H 06/07/19 04:39 ABG Hemoglobin 15.5 gm/dl (12.0-16.0) 06/07/19 04:39 ABG Carboxyhemoglobin 1.1 % (0.0-5.0) 06/07/19 04:39 ABG Methemoglobin 0.5 % (0.0-1.5) 06/07/19 04:39 VBG pH 6.901 (7.320-7.420) L* 06/03/19 11:51 Oxyhemoglobin 89.2 % (95.0-99.0) L 06/07/19 04:39 FiO2 35 % 06/07/19 04:39 Sodium 163 mmol/L (137-145) H* 06/07/19 10:12 Potassium 3.0 mmol/L (3.6-5.0) L 06/07/19 04:43 Chloride 122.9 mmol/L (98-107) H 06/07/19 04:43 Carbon Dioxide 29 mmol/L (22-30) 06/07/19 04:43 Anion Gap 18 mmol/L 06/07/19 04:43 BUN 27 mg/dL (7-17) H 06/07/19 04:43 Creatinine 0.5 mg/dL (0.7-1.2) L 06/07/19 04:43 Estimated GFR > 60 ml/min 06/07/19 04:43 BUN/Creatinine Ratio 54 % 06/07/19 04:43 Glucose 265 mg/dL (65-100) H 06/07/19 04:43 POC Glucose 218 (70-105) H 06/07/19 11:39 Hemoglobin A1c 9.6 % (4-6) H 06/03/19 16:03 Lactic Acid 1.90 mmol/L (0.7-2.0) 06/03/19 21:32 Calcium 9.5 mg/dL (8.4-10.2) 06/07/19 04:43 Phosphorus TNR 06/03/19 17:15 Magnesium TNR 06/03/19 17:15 Ferritin 1649.0 ng/mL (13.0-400.0) H 06/06/19 04:37 Total Bilirubin 0.40 mg/dL (0.1-1.2) 06/04/19 07:00 AST 43 units/L (5-40) H 06/04/19 07:00 ALT 22 units/L (7-56) 06/04/19 07:00 Alkaline Phosphatase 90 units/L (35-129) 06/04/19 07:00 Lactate Dehydrogenase 578 units/L (91-180) H 06/06/19 04:37 Troponin T < 0.010 ng/mL (0.00-0.029) 06/03/19 11:51 C-Reactive Protein 22.10 mg/dL (0.00-1.30) H 06/06/19 04:37 Total Protein 7.1 g/dL (6.3-8.2) 06/04/19 07:00 Albumin 2.9 g/dL (3.9-5) L 06/04/19 07:00 Albumin/Globulin Ratio 0.7 % 06/04/19 07:00 Triglycerides 373 mg/dL (2-149) H 06/07/19 04:43 Cholesterol 250 mg/dL (50-199) H 06/03/19 19:00 LDL Cholesterol Direct TNR 06/03/19 19:00 HDL Cholesterol 46 mg/dL (40-59) 06/03/19 19:00 Cholesterol/HDL Ratio 5.43 % 06/03/19 19:00 Procalcitonin 1.30 ng/mL (<0.15) 06/06/19 04:37 Urine Color Yellow (Yellow) 06/03/19 11:48 Urine Turbidity Clear (Clear) 06/03/19 11:48 Urine pH 6.0 (5.0-7.0) 06/03/19 11:48 Ur Specific [place] 1.026 (1.003-1.030) 06/03/19 11:48 Urine Protein 100 mg/dl mg/dL (Negative) 06/03/19 11:48 Urine Glucose (UA) >=500 mg/dL (Negative) 06/03/19 11:48 Urine Ketones 80 mg/dL (Negative) 06/03/19 11:48 Urine Blood Mod (Negative) 06/03/19 11:48 Urine Nitrite Neg (Negative) 06/03/19 11:48 Urine Bilirubin Neg (Negative) 06/03/19 11:48 Urine Urobilinogen < 2.0 mg/dL (<2.0) 06/03/19 11:48 Ur Leukocyte Esterase Neg (Negative) 06/03/19 11:48 Urine WBC (Auto) 1.0 /HPF (0.0-6.0) 06/03/19 11:48 Urine RBC (Auto) 2.0 /HPF (0.0-6.0) 06/03/19 11:48 Granular Casts 4 /LPF 06/03/19 11:48 Urine Mucus Few /HPF 06/03/19 11:48 Urine Creatinine 37.4 mg/dL (0.1-20.0) H 06/03/19 11:48 Urine Microalbumin 65.1 mg/dL (0.1-34.0) H 06/03/19 11:48 Microalb/Creat Ratio 1740.6 ug/mg 06/03/19 11:48 Urine HCG, Qual Negative (Negative) 06/03/19 11:48 Vancomycin Trough 4.2 ug/mL (5.0-20.0) L 06/05/19 21:00 Salicylates < 0.3 mg/dL (2.8-20.0) L 06/03/19 11:51 Urine Opiates Screen Presumptive negative 06/03/19 11:48 Urine Methadone Screen Presumptive negative 06/03/19 11:48 Acetaminophen < 5.0 ug/mL (10.0-30.0) L 06/03/19 11:51 Ur Barbiturates Screen Presumptive negative 06/03/19 11:48 Ur Phencyclidine Scrn Presumptive negative 06/03/19 11:48 Ur Amphetamines Screen Presumptive negative 06/03/19 11:48 U Benzodiazepines Scrn Presumptive negative 06/03/19 11:48 Urine Cocaine Screen Presumptive negative 06/03/19 11:48 U Marijuana (THC) Screen Presumptive negative 06/03/19 11:48 Drugs of Abuse Note Disclamer 06/03/19 11:48 Plasma/Serum Alcohol < 0.01 % (0-0.07) 06/03/19 11:51 Hepatitis A IgM Ab Non-reactive (NonReactive) 06/04/19 08:19 Hep Bs Antigen Non-reactive (Negative) 06/04/19 08:19 Hep B Core IgM Ab Non-reactive (NonReactive) 06/04/19 08:19 Hepatitis C Antibody Non-reactive (NonReactive) 06/04/19 08:19 Influenza A (Rapid) Negative (Negative) 06/03/19 Unknown Influenza B (Rapid) Negative (Negative) 06/03/19 Unknown Microbiology: Microbiology 06/03/19 Unknown Peripheral/Venous Blood Culture - Preliminary NO GROWTH AFTER 4 DAYS 06/03/19 Unknown Peripheral/Venous Blood Culture - Preliminary NO GROWTH AFTER 4 DAYS Alves/IV: Voiding Method External Female Catheter IV Catheter Type [Right Hand] INT / Saline Lock IV Catheter Type [Left Hand] INT / Saline Lock IV Catheter Type [Right INT / Saline Lock Antecubital] IV Catheter Type [Left Peripheral IV Antecubital] Active Medications - Current Medications Current Medications: Generic Name Dose Route Start Last Admin Trade Name Freq PRN Reason Stop Dose Admin Albuterol 2.5 mg 06/03/19 13:57 Proventil IH Q3HRT PRN Shortness Of Breath Lipase/Protease/Amylase 1 each 06/05/19 09:[address] 10,500 Unit FEEDTUBE PRN PRN For Clogged Feeding Tube Dextrose 50 ml 06/03/19 13:57 D50w (25gm) Syringe IV Q30MIN PRN Hypoglycemia Protocol Famotidine 20 mg 06/06/19 10:00 06/07/19 09:31 Pepcid PO 20 mg BID JOSE ROBERTO Administration Heparin Sodium (Porcine) 5,000 unit 06/03/19 14:15 06/07/19 09:31 Heparin SUB-Q 5,000 unit Q12HR JOSE ROBERTO Administration Hydralazine HCl 10 mg 06/07/19 08:42 06/07/19 09:14 Apresoline IV 10 mg Q4HR PRN Administration Hypertension Hydrochlorothiazide 12.5 mg 06/07/19 10:00 06/07/19 09:31 Hctz PO 12.5 mg QDAY JOSE ROBERTO Administration Hydrophilic Ointment 1 applic 06/03/19 11:02 Vaseline Lip Therapy TP Q2HR PRN Dry Lips Hydroxychloroquine Sulfate 200 mg 06/04/19 10:00 06/07/19 09:31 Plaquenil PO 06/07/19 22:01 200 mg BID JOSE ROBERTO Administration Propofol 1,000 mg in 100 mls @ 2.346 mls/hr 06/03/19 12:00 06/07/19 05:12 Diprivan 10 Mg/Ml IV 15 mcg/kg/min TITR JOSE ROBERTO 7.038 mls/hr Administration Protocol 5 MCG/KG/MIN Cefepime HCl 2 gm in 100 mls @ 200 mls/hr 06/03/19 22:00 06/07/19 09:29 Cefepime/Ns 2 Gm/100 Ml IV 200 mls/hr Q12HR JOSE ROBERTO Administration Protocol Metronidazole 500 mg in 100 mls @ 100 mls/hr 06/04/19 09:00 06/07/19 05:13 Flagyl 500 Mg/100 Ml IV 100 mls/hr Q8HR JOSE ROBERTO Administration Protocol Insulin Glargine 20 units 06/06/19 09:00 06/07/19 08:16 Lantus SUB-Q 20 units BIDDIAB JOSE ROBERTO Administration Insulin Human Regular 0 units 06/05/19 09:00 06/07/19 12:31 Humulin R SUB-Q 4 units Q6HR JOSE ROBERTO Administration Protocol Losartan Potassium 50 mg 06/07/19 10:00 06/07/19 09:31 Cozaar PO 50 mg QDAY JOSE ROBERTO Administration Multi-Ingred Cream/Lotion/Oil/Oint 1 applic 06/03/19 11:02 Artificial Tears Ophth Oint OU Q4HR PRN Dry Eye(s) Senna 8.6 mg 06/03/19 22:00 06/07/19 09:31 Senokot PO 8.6 mg BID JOSE ROBERTO Administration Simple Syrup 15 ml 06/05/19 09:59 Simple Syrup FEEDTUBE PRN PRN Hypoglycemia Simple Syrup 30 ml 06/05/19 09:59 Simple Syrup FEEDTUBE PRN PRN Hypoglycemia Sodium Bicarbonate 325 mg 06/05/19 09:59 Sodium Bicarbonate FEEDTUBE PRN PRN For Clogged Feeding Tube Sodium Chloride 10 ml 06/03/19 22:00 06/07/19 09:32 Sodium Chloride Flush Syringe 10 Ml IV 10 ml BID JOSE ROBERTO Administration Sodium Chloride 10 ml 06/03/19 13:57 Sodium Chloride Flush Syringe 10 Ml IV PRN PRN LINE FLUSH Nutrition/Malnutrition Assess - Dietary Evaluation Nutrition/Malnutrition Findings: Nutrition Notes Start: 06/04/19 08:30 Freq: Status: Active Protocol: Document 06/05/19 09:58 LM (Rec: 04/03/20 09:59 LM [email or web address]) Nutrition Notes Need for Assessment generated from: MD Order Initial or Follow up Brief Note Current Diagnosis Diabetes,Sepsis,Hypertension, Respiratory Failure, Hyperlipidemia Other Pertinent Diagnosis Suspected COVID-19, Pneu, metabolic encephalopathy Current Diet NPO Labs/Tests Na 155 K 3 Subjective/Other Information MD consult for TF. Nutrition Intervention Change Diet Order: TF Nutrition Support: Vital AF 1.2 at 60 ml/hr Flush 200 ml q4h for hypernatremia Flush 100 ml q4h once hypernatremia resolves Kcal 1,728 Protein (gm) 108 Fluid (mL) 1,168 Goal #1 TF start/tolerance Follow-Up By: 06/08/19 Additional Comments F/U for TF start/tolerance
--- NOTE | 2019-06-07 15:58 | Progress Note ---
Assessment and Plan Acute hypoxemic respiratory failure on MVS Bilateral pneumonia, possible aspiration. History of possible exposure to COVID-19, rule out COVID-19 infection. Diabetic ketoacidosis. Severe metabolic acidosis. Severe sepsis with acute encephalopathy and hypothermia. Acute toxic metabolic encephalopathy. Leukocytosis. Hemoconcentration. Elevated serum D-dimer. Acute kidney injury. Elevated serum transaminase. - follow COVID-19 result - continue airborne, contact and droplet isolation - continue to wean supplemental oxygen for target O2 sat's > 90% acutely - continue Daily SAT and SBT assessment as tolerated - continue accuchecks resumed with glycemic control per Lantus and SSI (While critically ill target blood glucose of 140-180 mg/dL; avoid hypoglycemia) - sedation prn for target RASS 0 to -1 - VAP bundle addressed (aspiration precautions, HOB>40) - continue lung protective strategies - continue bronchodilators with pulmonary hygiene per RT - wean per pulmonary driven protocols otherwise - continue to avoid nephrotoxins, adjust all medications fro CrCL and GFR - continue to avoid benzodiazepine's; reduce the possibility of delirium - complete antiinfectives per ID rec's - prn analgesia per CPOT score - Maintenance of sleep-wake cycle, avoid delirium - enteral nutritional support at goal rate as tolerated - G.I. & VTE prophylaxis withy heparin and Famotidine - PT/OT/ROM exercises - continue mobility protocols for pressure ulcer prophylaxis - Monitor hemodynamics closely - continue other care per attending / other consultants - Influenza and pneumonia vaccinations addressed per protocol - continue other care per attending / other consultants .... Re-evaluate in am & prn CONDITION: CRITICAL PROGNOSIS: GUARDED CODE STATUS: FULL CODE The high probability of a clinically significant, sudden or life-threatening deterioration of the [respiratory, cardiovascular, endocrine, renal & neurologic] system(s) required my full and direct attention, intervention and personal management. The aggregate critical care time was [34] minutes without overlap. Time includes spent on; [x] Data Review and interpretation [x] Patient assessment and monitoring of vital signs [x] Documentation [x] Medication orders and management Subjective Date of service: 06/06/19 Principal diagnosis: Ac hypoxemic resp failure; Bob. PNA; PUI CVOVID-19; DKA; Severe sepsis Interval history: LATE ENTRY FOR DOS 06/06/2019 Patient is seen today for: Ac hypoxemic resp failure; Bob. pneumonia; PUI CVOVID-19; DKA; Severe sepsis Seen and examined at bedside; 24hour events reviewed; nursing and respiratory care staff consulted; no adverse overnight events reported to me; resting peacefully in bed; remains on MVS; on full AC support; agitated during sedation vacations; no emesis or overt aspiration; COVID-19 test pending Objective Vital Signs - 12hr 06/07/19 06/07/19 06/07/19 04:00 04:15 04:30 Temperature Pulse Rate 101 H 102 H 100 H Pulse Rate [ From Monitor] Respiratory 22 21 19 Rate Blood Pressure 149/103 153/104 142/95 O2 Sat by Pulse 93 92 92 Oximetry 06/07/19 06/07/19 06/07/19 04:35 04:45 05:00 Temperature Pulse Rate 102 H 103 H 103 H Pulse Rate [ From Monitor] Respiratory 21 22 Rate Blood Pressure 149/101 150/102 O2 Sat by Pulse 90 89 Oximetry 06/07/19 06/07/19 06/07/19 05:15 05:27 05:30 Temperature Pulse Rate 104 H 104 H 104 H Pulse Rate [ From Monitor] Respiratory 22 24 Rate Blood Pressure 146/100 146/100 163/99 O2 Sat by Pulse 89 91 90 Oximetry 06/07/19 06/07/19 06/07/19 05:45 06:00 06:15 Temperature Pulse Rate 106 H 106 H 106 H Pulse Rate [ From Monitor] Respiratory 22 22 27 H Rate Blood Pressure 159/104 155/105 144/106 O2 Sat by Pulse 91 90 91 Oximetry 06/07/19 06/07/19 06/07/19 06:30 06:45 07:00 Temperature Pulse Rate 107 H 104 H 106 H Pulse Rate [ From Monitor] Respiratory 20 25 H 24 Rate Blood Pressure 155/103 161/111 155/103 O2 Sat by Pulse 89 91 91 Oximetry 06/07/19 06/07/19 06/07/19 07:15 07:30 07:45 Temperature Pulse Rate 106 H 103 H 105 H Pulse Rate [ From Monitor] Respiratory 21 20 19 Rate Blood Pressure 155/98 161/101 158/101 O2 Sat by Pulse 93 92 92 Oximetry 06/07/19 06/07/19 06/07/19 08:00 08:15 08:30 Temperature 98.9 F Pulse Rate 104 H 105 H 105 H Pulse Rate [ 105 H From Monitor] Respiratory 23 23 25 H Rate Blood Pressure 145/102 149/101 154/105 O2 Sat by Pulse 93 92 93 Oximetry 06/07/19 06/07/19 06/07/19 08:45 08:51 09:01 Temperature Pulse Rate 98 H 108 H 106 H Pulse Rate [ From Monitor] Respiratory 22 20 Rate Blood Pressure 137/90 137/90 170/111 O2 Sat by Pulse 92 94 93 Oximetry 06/07/19 06/07/19 06/07/19 09:14 09:15 09:30 Temperature Pulse Rate 105 H 102 H 106 H Pulse Rate [ From Monitor] Respiratory 21 27 H Rate Blood Pressure 170/111 144/105 O2 Sat by Pulse 94 93 Oximetry 06/07/19 06/07/19 06/07/19 09:31 09:45 10:00 Temperature Pulse Rate 112 H 111 H 109 H Pulse Rate [ From Monitor] Respiratory 29 H 29 H Rate Blood Pressure 145/98 168/94 158/102 O2 Sat by Pulse 93 92 Oximetry 06/07/19 06/07/19 06/07/19 10:15 10:30 10:45 Temperature Pulse Rate 108 H 110 H 110 H Pulse Rate [ From Monitor] Respiratory 29 H 24 28 H Rate Blood Pressure 159/101 143/94 156/98 O2 Sat by Pulse 92 92 92 Oximetry 06/07/19 06/07/19 06/07/19 11:00 11:15 11:30 Temperature Pulse Rate 107 H 107 H 111 H Pulse Rate [ From Monitor] Respiratory 24 24 22 Rate Blood Pressure 145/99 159/98 143/101 O2 Sat by Pulse 93 93 93 Oximetry 06/07/19 06/07/19 06/07/19 11:31 11:41 11:42 Temperature 98.4 F Pulse Rate Pulse Rate [ 106 H From Monitor] Respiratory 26 H Rate Blood Pressure 143/101 O2 Sat by Pulse 94 94 Oximetry 06/07/19 06/07/19 06/07/19 11:43 11:45 12:00 Temperature Pulse Rate 109 H 106 H 106 H Pulse Rate [ From Monitor] Respiratory 21 21 Rate Blood Pressure 143/98 145/102 O2 Sat by Pulse 94 94 Oximetry 06/07/19 06/07/19 06/07/19 12:15 12:30 12:45 Temperature Pulse Rate 110 H 108 H 110 H Pulse Rate [ From Monitor] Respiratory 20 25 H 17 Rate Blood Pressure 147/102 153/96 140/95 O2 Sat by Pulse 94 95 Oximetry 06/07/19 06/07/19 06/07/19 13:00 13:15 13:30 Temperature Pulse Rate 101 H 97 H 104 H Pulse Rate [ From Monitor] Respiratory 21 21 22 Rate Blood Pressure 131/88 131/81 141/90 O2 Sat by Pulse 95 95 95 Oximetry 06/07/19 06/07/19 06/07/19 13:45 14:00 14:15 Temperature Pulse Rate 105 H 97 H 106 H Pulse Rate [ From Monitor] Respiratory 19 23 21 Rate Blood Pressure 140/90 140/84 150/96 O2 Sat by Pulse 95 96 96 Oximetry Constitutional: no acute distress, other (Atraumatic, normocephalic, no patient- ventilator dys-synchrony) Eyes: non-icteric ENT: oropharynx moist, other (OGT in place, ETT in palce) Neck: supple, no lymphadenopathy, no JVD Effort: mildly labored Ascultation: Bilateral: rhonchi Percussion: Bilateral: not dull Cardiovascular: irregular rhythm, other (S1,S2, no murmurs) Gastrointestinal: normoactive bowel sounds, soft, non-tender, non-distended Integumentary: normal Extremities: no cyanosis, no edema, pulses normal, no ischemia or petechiae Neurologic: unable to assess (sedated) Psychiatric: other (sedated) CBC and BMP: 06/07/19 04:43 06/07/19 10:12 ABG, PT/INR, D-dimer: ABG ABG pH 7.507 pH Units (7.350-7.450) H 06/07/19 04:39 ABG pCO2 42.1 mm Hg 06/07/19 04:39 ABG pO2 46.4 mm Hg (80.0-90.0) L 06/07/19 04:39 ABG O2 Saturation 90.6 % (95.0-99.0) L 06/07/19 04:39 PT/INR, D-dimer D-Dimer 1279.22 ng/mlDDU (0-234) H 06/06/19 04:37 Abnormal lab findings: Abnormal Labs 04/01/20 04/01/20 04/01/20 10:59 11:15 11:48 WBC RBC Hgb Hct MCH RDW Seg Neuts % (Manual) Lymphocytes % (Manual) Monocytes % (Manual) Seg Neutrophils # Man Lymphocytes # (Manual) Monocytes # (Manual) D-Dimer ABG pH ABG pO2 ABG HCO3 ABG O2 Saturation ABG Base Excess ABG Hemoglobin VBG pH Oxyhemoglobin Sodium Potassium Chloride Carbon Dioxide BUN Creatinine Glucose POC Glucose 372 H Hemoglobin A1c Lactic Acid Calcium Phosphorus 11.70 H Magnesium 4.40 H Ferritin AST Alkaline Phosphatase Lactate Dehydrogenase C-Reactive Protein Total Protein Albumin Triglycerides Cholesterol Urine Creatinine 37.4 H Urine Microalbumin 65.1 H Vancomycin Trough Salicylates Acetaminophen 06/03/19 06/03/19 06/03/19 11:51 11:51 11:51 WBC 23.3 H RBC 6.43 H Hgb 17.7 H Hct 59.9 H* MCH RDW 17.1 H Seg Neuts % (Manual) 71.0 H Lymphocytes % (Manual) 11.0 L Monocytes % (Manual) 8.0 H Seg Neutrophils # Man 16.5 H Lymphocytes # (Manual) Monocytes # (Manual) 1.9 H D-Dimer ABG pH ABG pO2 ABG HCO3 ABG O2 Saturation ABG Base Excess ABG Hemoglobin VBG pH Oxyhemoglobin Sodium Potassium Chloride Carbon Dioxide 4 L* BUN 41 H Creatinine 1.8 H Glucose 636 H* POC Glucose Hemoglobin A1c Lactic Acid 3.20 H* Calcium 10.9 H Phosphorus Magnesium Ferritin AST 43 H Alkaline Phosphatase 147 H Lactate Dehydrogenase 673 H C-Reactive Protein 14.70 H Total Protein 8.9 H Albumin Triglycerides Cholesterol Urine Creatinine Urine Microalbumin Vancomycin Trough Salicylates Acetaminophen 06/03/19 06/03/19 06/03/19 11:51 11:51 11:51 WBC RBC Hgb Hct MCH RDW Seg Neuts % (Manual) Lymphocytes % (Manual) Monocytes % (Manual) Seg Neutrophils # Man Lymphocytes # (Manual) Monocytes # (Manual) D-Dimer ABG pH ABG pO2 ABG HCO3 ABG O2 Saturation ABG Base Excess ABG Hemoglobin VBG pH 6.901 L* Oxyhemoglobin Sodium Potassium Chloride Carbon Dioxide BUN Creatinine Glucose POC Glucose Hemoglobin A1c Lactic Acid Calcium Phosphorus Magnesium Ferritin AST Alkaline Phosphatase Lactate Dehydrogenase C-Reactive Protein Total Protein Albumin Triglycerides Cholesterol Urine Creatinine Urine Microalbumin Vancomycin Trough Salicylates < 0.3 L Acetaminophen < 5.0 L 06/03/19 06/03/19 06/03/19 11:51 11:51 12:34 WBC RBC Hgb Hct MCH RDW Seg Neuts % (Manual) Lymphocytes % (Manual) Monocytes % (Manual) Seg Neutrophils # Man Lymphocytes # (Manual) Monocytes # (Manual) D-Dimer 4311.60 H ABG pH ABG pO2 ABG HCO3 ABG O2 Saturation ABG Base Excess ABG Hemoglobin VBG pH Oxyhemoglobin Sodium Potassium Chloride Carbon Dioxide BUN Creatinine Glucose POC Glucose Hemoglobin A1c Lactic Acid 5.20 H* Calcium Phosphorus Magnesium Ferritin 1037.0 H AST Alkaline Phosphatase Lactate Dehydrogenase C-Reactive Protein Total Protein Albumin Triglycerides Cholesterol Urine Creatinine Urine Microalbumin Vancomycin Trough Salicylates Acetaminophen 06/03/19 06/03/19 06/03/19 14:30 16:03 17:00 WBC RBC Hgb Hct MCH RDW Seg Neuts % (Manual) Lymphocytes % (Manual) Monocytes % (Manual) Seg Neutrophils # Man Lymphocytes # (Manual) Monocytes # (Manual) D-Dimer ABG pH 6.880 L* ABG pO2 489.9 H ABG HCO3 7.1 L ABG O2 Saturation 99.6 H ABG Base Excess -26.1 L ABG Hemoglobin 16.2 H VBG pH Oxyhemoglobin Sodium Potassium Chloride Carbon Dioxide BUN Creatinine Glucose POC Glucose 335 H Hemoglobin A1c 9.6 H Lactic Acid Calcium Phosphorus Magnesium Ferritin AST Alkaline Phosphatase Lactate Dehydrogenase C-Reactive Protein Total Protein Albumin Triglycerides Cholesterol Urine Creatinine Urine Microalbumin Vancomycin Trough Salicylates Acetaminophen 06/03/19 06/03/19 06/03/19 18:14 18:24 19:00 WBC RBC Hgb Hct MCH RDW Seg Neuts % (Manual) Lymphocytes % (Manual) Monocytes % (Manual) Seg Neutrophils # Man Lymphocytes # (Manual) Monocytes # (Manual) D-Dimer ABG pH 7.057 L* ABG pO2 97.2 H ABG HCO3 5.5 L ABG O2 Saturation ABG Base Excess -23.0 L ABG Hemoglobin 18.1 H VBG pH Oxyhemoglobin 94.4 L Sodium Potassium Chloride Carbon Dioxide BUN Creatinine Glucose POC Glucose 285 H Hemoglobin A1c Lactic Acid 3.40 H* Calcium Phosphorus Magnesium Ferritin AST Alkaline Phosphatase Lactate Dehydrogenase C-Reactive Protein Total Protein Albumin Triglycerides Cholesterol Urine Creatinine Urine Microalbumin Vancomycin Trough Salicylates Acetaminophen 06/03/19 06/03/19 06/03/19 19:00 19:00 19:52 WBC RBC Hgb Hct MCH RDW Seg Neuts % (Manual) Lymphocytes % (Manual) Monocytes % (Manual) Seg Neutrophils # Man Lymphocytes # (Manual) Monocytes # (Manual) D-Dimer ABG pH ABG pO2 ABG HCO3 ABG O2 Saturation ABG Base Excess ABG Hemoglobin VBG pH Oxyhemoglobin Sodium 151 H Potassium Chloride 120.8 H Carbon Dioxide 6 L* BUN 33 H Creatinine 1.4 H Glucose 339 H POC Glucose 316 H Hemoglobin A1c Lactic Acid Calcium Phosphorus Magnesium Ferritin AST 47 H Alkaline Phosphatase 130 H Lactate Dehydrogenase C-Reactive Protein Total Protein Albumin 3.7 L Triglycerides 424 H Cholesterol 250 H Urine Creatinine Urine Microalbumin Vancomycin Trough Salicylates Acetaminophen 06/03/19 06/03/19 06/03/19 20:21 20:21 21:01 WBC RBC Hgb Hct MCH RDW Seg Neuts % (Manual) Lymphocytes % (Manual) Monocytes % (Manual) Seg Neutrophils # Man Lymphocytes # (Manual) Monocytes # (Manual) D-Dimer ABG pH ABG pO2 ABG HCO3 ABG O2 Saturation ABG Base Excess ABG Hemoglobin VBG pH Oxyhemoglobin Sodium 153 H Potassium Chloride 121.8 H Carbon Dioxide 6 L* BUN 34 H Creatinine 1.3 H Glucose 324 H POC Glucose 245 H Hemoglobin A1c Lactic Acid 3.10 H* Calcium Phosphorus Magnesium Ferritin AST Alkaline Phosphatase Lactate Dehydrogenase C-Reactive Protein Total Protein Albumin Triglycerides Cholesterol Urine Creatinine Urine Microalbumin Vancomycin Trough Salicylates Acetaminophen 06/03/19 06/03/19 06/03/19 21:25 21:32 22:42 WBC RBC Hgb Hct MCH RDW Seg Neuts % (Manual) Lymphocytes % (Manual) Monocytes % (Manual) Seg Neutrophils # Man Lymphocytes # (Manual) Monocytes # (Manual) D-Dimer ABG pH 7.172 L* ABG pO2 107.2 H ABG HCO3 5.2 L ABG O2 Saturation ABG Base Excess -20.5 L ABG Hemoglobin 17.3 H VBG pH Oxyhemoglobin Sodium 155 H Potassium 2.6 L* D Chloride 130.1 H Carbon Dioxide 5 L* BUN 24 H Creatinine Glucose 212 H POC Glucose 225 H Hemoglobin A1c Lactic Acid Calcium 5.8 L* D Phosphorus Magnesium Ferritin AST Alkaline Phosphatase Lactate Dehydrogenase C-Reactive Protein Total Protein Albumin Triglycerides Cholesterol Urine Creatinine Urine Microalbumin Vancomycin Trough Salicylates Acetaminophen 0406/04/19 06/04/19 23:32 00:04 01:25 WBC RBC Hgb Hct MCH RDW Seg Neuts % (Manual) Lymphocytes % (Manual) Monocytes % (Manual) Seg Neutrophils # Man Lymphocytes # (Manual) Monocytes # (Manual) D-Dimer ABG pH ABG pO2 ABG HCO3 ABG O2 Saturation ABG Base Excess ABG Hemoglobin VBG pH Oxyhemoglobin Sodium 151 H 151 H Potassium 1.5 L* D Chloride 139.0 H 124.7 H Carbon Dioxide 3 L* 9 L* BUN 31 H Creatinine 0.2 L D Glucose 117 H 241 H POC Glucose 231 H Hemoglobin A1c Lactic Acid Calcium 3.1 L* D Phosphorus Magnesium Ferritin AST Alkaline Phosphatase Lactate Dehydrogenase C-Reactive Protein Total Protein Albumin Triglycerides Cholesterol Urine Creatinine Urine Microalbumin Vancomycin Trough Salicylates Acetaminophen 06/04/19 06/04/19 06/04/19 01:34 02:45 03:21 WBC RBC Hgb Hct MCH RDW Seg Neuts % (Manual) Lymphocytes % (Manual) Monocytes % (Manual) Seg Neutrophils # Man Lymphocytes # (Manual) Monocytes # (Manual) D-Dimer ABG pH ABG pO2 ABG HCO3 ABG O2 Saturation ABG Base Excess ABG Hemoglobin VBG pH Oxyhemoglobin Sodium Potassium Chloride Carbon Dioxide BUN Creatinine Glucose POC Glucose 194 H 189 H 183 H Hemoglobin A1c Lactic Acid Calcium Phosphorus Magnesium Ferritin AST Alkaline Phosphatase Lactate Dehydrogenase C-Reactive Protein Total Protein Albumin Triglycerides Cholesterol Urine Creatinine Urine Microalbumin Vancomycin Trough Salicylates Acetaminophen 06/04/19 06/04/19 06/04/19 04:50 05:07 06:27 WBC RBC Hgb Hct MCH RDW Seg Neuts % (Manual) Lymphocytes % (Manual) Monocytes % (Manual) Seg Neutrophils # Man Lymphocytes # (Manual) Monocytes # (Manual) D-Dimer ABG pH ABG pO2 76.5 L ABG HCO3 12.9 L ABG O2 Saturation ABG Base Excess -9.0 L ABG Hemoglobin VBG pH Oxyhemoglobin Sodium Potassium Chloride Carbon Dioxide BUN Creatinine Glucose POC Glucose 200 H 164 H Hemoglobin A1c Lactic Acid Calcium Phosphorus Magnesium Ferritin AST Alkaline Phosphatase Lactate Dehydrogenase C-Reactive Protein Total Protein Albumin Triglycerides Cholesterol Urine Creatinine Urine Microalbumin Vancomycin Trough Salicylates Acetaminophen 06/04/19 06/04/19 06/04/19 07:00 07:00 07:00 WBC 13.4 H RBC 5.54 H Hgb 15.3 H Hct 46.1 H D MCH RDW Seg Neuts % (Manual) 72.0 H Lymphocytes % (Manual) 6.0 L Monocytes % (Manual) Seg Neutrophils # Man 9.6 H Lymphocytes # (Manual) 0.8 L Monocytes # (Manual) D-Dimer ABG pH ABG pO2 ABG HCO3 ABG O2 Saturation ABG Base Excess ABG Hemoglobin VBG pH Oxyhemoglobin Sodium 158 H 156 H Potassium 2.7 L* D 2.6 L* Chloride 124.3 H 123.5 H Carbon Dioxide 11 L 11 L BUN 25 H 26 H Creatinine Glucose 192 H 190 H POC Glucose Hemoglobin A1c Lactic Acid Calcium Phosphorus Magnesium Ferritin AST 43 H Alkaline Phosphatase Lactate Dehydrogenase 590 H C-Reactive Protein 22.70 H Total Protein Albumin 2.9 L Triglycerides Cholesterol Urine Creatinine Urine Microalbumin Vancomycin Trough Salicylates Acetaminophen 06/04/19 06/04/19 06/04/19 07:00 07:00 07:14 WBC RBC Hgb Hct MCH RDW Seg Neuts % (Manual) Lymphocytes % (Manual) Monocytes % (Manual) Seg Neutrophils # Man Lymphocytes # (Manual) Monocytes # (Manual) D-Dimer 2050.33 H ABG pH ABG pO2 ABG HCO3 ABG O2 Saturation ABG Base Excess ABG Hemoglobin VBG pH Oxyhemoglobin Sodium Potassium Chloride Carbon Dioxide BUN Creatinine Glucose POC Glucose 176 H Hemoglobin A1c Lactic Acid Calcium Phosphorus Magnesium Ferritin 941.3 H AST Alkaline Phosphatase Lactate Dehydrogenase C-Reactive Protein Total Protein Albumin Triglycerides Cholesterol Urine Creatinine Urine Microalbumin Vancomycin Trough Salicylates Acetaminophen 06/04/19 06/04/19 06/04/19 09:55 11:38 12:19 WBC RBC Hgb Hct MCH RDW Seg Neuts % (Manual) Lymphocytes % (Manual) Monocytes % (Manual) Seg Neutrophils # Man Lymphocytes # (Manual) Monocytes # (Manual) D-Dimer ABG pH ABG pO2 ABG HCO3 ABG O2 Saturation ABG Base Excess ABG Hemoglobin VBG pH Oxyhemoglobin Sodium Potassium Chloride Carbon Dioxide BUN Creatinine Glucose POC Glucose 184 H 145 H 144 H Hemoglobin A1c Lactic Acid Calcium Phosphorus Magnesium Ferritin AST Alkaline Phosphatase Lactate Dehydrogenase C-Reactive Protein Total Protein Albumin Triglycerides Cholesterol Urine Creatinine Urine Microalbumin Vancomycin Trough Salicylates Acetaminophen 06/04/19 06/04/19 06/04/19 13:35 14:29 15:06 WBC RBC Hgb Hct MCH RDW Seg Neuts % (Manual) Lymphocytes % (Manual) Monocytes % (Manual) Seg Neutrophils # Man Lymphocytes # (Manual) Monocytes # (Manual) D-Dimer ABG pH ABG pO2 ABG HCO3 ABG O2 Saturation ABG Base Excess ABG Hemoglobin VBG pH Oxyhemoglobin Sodium 157 H Potassium 2.4 L* Chloride 121.4 H Carbon Dioxide 20 L D BUN 21 H Creatinine Glucose 176 H POC Glucose 151 H 142 H Hemoglobin A1c Lactic Acid Calcium Phosphorus Magnesium Ferritin AST Alkaline Phosphatase Lactate Dehydrogenase C-Reactive Protein Total Protein Albumin Triglycerides Cholesterol Urine Creatinine Urine Microalbumin Vancomycin Trough Salicylates Acetaminophen 06/04/19 06/04/19 06/04/19 17:14 17:51 21:45 WBC RBC Hgb Hct MCH RDW Seg Neuts % (Manual) Lymphocytes % (Manual) Monocytes % (Manual) Seg Neutrophils # Man Lymphocytes # (Manual) Monocytes # (Manual) D-Dimer ABG pH ABG pO2 ABG HCO3 ABG O2 Saturation ABG Base Excess ABG Hemoglobin VBG pH Oxyhemoglobin Sodium Potassium Chloride Carbon Dioxide BUN Creatinine Glucose POC Glucose 200 H 159 H 143 H Hemoglobin A1c Lactic Acid Calcium Phosphorus Magnesium Ferritin AST Alkaline Phosphatase Lactate Dehydrogenase C-Reactive Protein Total Protein Albumin Triglycerides Cholesterol Urine Creatinine Urine Microalbumin Vancomycin Trough Salicylates Acetaminophen 06/04/19 06/04/19 06/04/19 22:20 22:21 23:27 WBC RBC Hgb Hct MCH RDW Seg Neuts % (Manual) Lymphocytes % (Manual) Monocytes % (Manual) Seg Neutrophils # Man Lymphocytes # (Manual) Monocytes # (Manual) D-Dimer ABG pH 7.572 H ABG pO2 58.5 L ABG HCO3 ABG O2 Saturation ABG Base Excess 3.5 H ABG Hemoglobin 20.0 H VBG pH Oxyhemoglobin 94.6 L Sodium Potassium Chloride Carbon Dioxide BUN Creatinine Glucose POC Glucose 154 H 147 H Hemoglobin A1c Lactic Acid Calcium Phosphorus Magnesium Ferritin AST Alkaline Phosphatase Lactate Dehydrogenase C-Reactive Protein Total Protein Albumin Triglycerides Cholesterol Urine Creatinine Urine Microalbumin Vancomycin Trough Salicylates Acetaminophen 06/05/19 06/05/19 06/05/19 00:27 01:16 02:20 WBC RBC Hgb Hct MCH RDW Seg Neuts % (Manual) Lymphocytes % (Manual) Monocytes % (Manual) Seg Neutrophils # Man Lymphocytes # (Manual) Monocytes # (Manual) D-Dimer ABG pH ABG pO2 ABG HCO3 ABG O2 Saturation ABG Base Excess ABG Hemoglobin VBG pH Oxyhemoglobin Sodium Potassium Chloride Carbon Dioxide BUN Creatinine Glucose POC Glucose 124 H 126 H 156 H Hemoglobin A1c Lactic Acid Calcium Phosphorus Magnesium Ferritin AST Alkaline Phosphatase Lactate Dehydrogenase C-Reactive Protein Total Protein Albumin Triglycerides Cholesterol Urine Creatinine Urine Microalbumin Vancomycin Trough Salicylates Acetaminophen 06/05/19 06/05/19 06/05/19 03:44 03:59 04:52 WBC RBC Hgb Hct MCH RDW Seg Neuts % (Manual) Lymphocytes % (Manual) Monocytes % (Manual) Seg Neutrophils # Man Lymphocytes # (Manual) Monocytes # (Manual) D-Dimer ABG pH ABG pO2 ABG HCO3 ABG O2 Saturation ABG Base Excess ABG Hemoglobin VBG pH Oxyhemoglobin Sodium 155 H Potassium 3.0 L D Chloride 114.7 H Carbon Dioxide BUN Creatinine 0.6 L Glucose 136 H POC Glucose 143 H 141 H Hemoglobin A1c Lactic Acid Calcium Phosphorus Magnesium Ferritin AST Alkaline Phosphatase Lactate Dehydrogenase C-Reactive Protein Total Protein Albumin Triglycerides Cholesterol Urine Creatinine Urine Microalbumin Vancomycin Trough Salicylates Acetaminophen 06/05/19 06/05/19 06/05/19 05:00 05:54 07:01 WBC RBC Hgb Hct MCH RDW Seg Neuts % (Manual) Lymphocytes % (Manual) Monocytes % (Manual) Seg Neutrophils # Man Lymphocytes # (Manual) Monocytes # (Manual) D-Dimer ABG pH 7.621 H* ABG pO2 54.3 L ABG HCO3 29.8 H ABG O2 Saturation ABG Base Excess 8.8 H ABG Hemoglobin VBG pH Oxyhemoglobin Sodium Potassium Chloride Carbon Dioxide BUN Creatinine Glucose POC Glucose 155 H 145 H Hemoglobin A1c Lactic Acid Calcium Phosphorus Magnesium Ferritin AST Alkaline Phosphatase Lactate Dehydrogenase C-Reactive Protein Total Protein Albumin Triglycerides Cholesterol Urine Creatinine Urine Microalbumin Vancomycin Trough Salicylates Acetaminophen 06/05/19 06/05/19 06/05/19 12:13 18:23 21:00 WBC RBC Hgb Hct MCH RDW Seg Neuts % (Manual) Lymphocytes % (Manual) Monocytes % (Manual) Seg Neutrophils # Man Lymphocytes # (Manual) Monocytes # (Manual) D-Dimer ABG pH ABG pO2 ABG HCO3 ABG O2 Saturation ABG Base Excess ABG Hemoglobin VBG pH Oxyhemoglobin Sodium Potassium Chloride Carbon Dioxide BUN Creatinine Glucose POC Glucose 202 H 257 H Hemoglobin A1c Lactic Acid Calcium Phosphorus Magnesium Ferritin AST Alkaline Phosphatase Lactate Dehydrogenase C-Reactive Protein Total Protein Albumin Triglycerides Cholesterol Urine Creatinine Urine Microalbumin Vancomycin Trough 4.2 L Salicylates Acetaminophen 06/05/19 06/06/19 06/06/19 23:55 04:16 04:37 WBC RBC Hgb Hct MCH RDW Seg Neuts % (Manual) Lymphocytes % (Manual) Monocytes % (Manual) Seg Neutrophils # Man Lymphocytes # (Manual) Monocytes # (Manual) D-Dimer 1279.22 H ABG pH 7.600 H ABG pO2 62.4 L ABG HCO3 28.0 H ABG O2 Saturation ABG Base Excess 6.6 H ABG Hemoglobin 10.4 L VBG pH Oxyhemoglobin Sodium Potassium Chloride Carbon Dioxide BUN Creatinine Glucose POC Glucose 267 H Hemoglobin A1c Lactic Acid Calcium Phosphorus Magnesium Ferritin AST Alkaline Phosphatase Lactate Dehydrogenase C-Reactive Protein Total Protein Albumin Triglycerides Cholesterol Urine Creatinine Urine Microalbumin Vancomycin Trough Salicylates Acetaminophen 06/06/19 06/06/19 06/06/19 04:37 04:37 04:37 WBC 12.2 H RBC 5.10 H Hgb Hct MCH 27 L RDW Seg Neuts % (Manual) Lymphocytes % (Manual) Monocytes % (Manual) Seg Neutrophils # Man Lymphocytes # (Manual) Monocytes # (Manual) D-Dimer ABG pH ABG pO2 ABG HCO3 ABG O2 Saturation ABG Base Excess ABG Hemoglobin VBG pH Oxyhemoglobin Sodium 156 H Potassium 3.4 L Chloride 112.9 H Carbon Dioxide BUN 21 H Creatinine 0.6 L Glucose 332 H POC Glucose Hemoglobin A1c Lactic Acid Calcium Phosphorus Magnesium Ferritin 1649.0 H AST Alkaline Phosphatase Lactate Dehydrogenase 578 H C-Reactive Protein 22.10 H Total Protein Albumin Triglycerides Cholesterol Urine Creatinine Urine Microalbumin Vancomycin Trough Salicylates Acetaminophen 06/06/19 06/06/19 06/06/19 05:45 11:55 12:21 WBC RBC Hgb Hct MCH RDW Seg Neuts % (Manual) Lymphocytes % (Manual) Monocytes % (Manual) Seg Neutrophils # Man Lymphocytes # (Manual) Monocytes # (Manual) D-Dimer ABG pH 7.511 H ABG pO2 123.0 H ABG HCO3 29.7 H ABG O2 Saturation ABG Base Excess 6.4 H ABG Hemoglobin VBG pH Oxyhemoglobin Sodium Potassium Chloride Carbon Dioxide BUN Creatinine Glucose POC Glucose 303 H 281 H Hemoglobin A1c Lactic Acid Calcium Phosphorus Magnesium Ferritin AST Alkaline Phosphatase Lactate Dehydrogenase C-Reactive Protein Total Protein Albumin Triglycerides Cholesterol Urine Creatinine Urine Microalbumin Vancomycin Trough Salicylates Acetaminophen 06/06/19 06/07/19 06/07/19 17:06 00:25 04:39 WBC RBC Hgb Hct MCH RDW Seg Neuts % (Manual) Lymphocytes % (Manual) Monocytes % (Manual) Seg Neutrophils # Man Lymphocytes # (Manual) Monocytes # (Manual) D-Dimer ABG pH 7.507 H ABG pO2 46.4 L ABG HCO3 32.6 H ABG O2 Saturation 90.6 L ABG Base Excess 8.6 H ABG Hemoglobin VBG pH Oxyhemoglobin 89.2 L Sodium Potassium Chloride Carbon Dioxide BUN Creatinine Glucose POC Glucose 251 H 225 H Hemoglobin A1c Lactic Acid Calcium Phosphorus Magnesium Ferritin AST Alkaline Phosphatase Lactate Dehydrogenase C-Reactive Protein Total Protein Albumin Triglycerides Cholesterol Urine Creatinine Urine Microalbumin Vancomycin Trough Salicylates Acetaminophen 06/07/19 06/07/19 06/07/19 04:43 04:43 04:43 WBC 13.6 H RBC 5.14 H Hgb Hct 43.4 H MCH 27 L RDW Seg Neuts % (Manual) Lymphocytes % (Manual) Monocytes % (Manual) Seg Neutrophils # Man Lymphocytes # (Manual) Monocytes # (Manual) D-Dimer ABG pH ABG pO2 ABG HCO3 ABG O2 Saturation ABG Base Excess ABG Hemoglobin VBG pH Oxyhemoglobin Sodium 166 H* D Potassium 3.0 L Chloride 122.9 H Carbon Dioxide BUN 27 H Creatinine 0.5 L Glucose 265 H POC Glucose Hemoglobin A1c Lactic Acid Calcium Phosphorus Magnesium Ferritin AST Alkaline Phosphatase Lactate Dehydrogenase C-Reactive Protein Total Protein Albumin Triglycerides 373 H Cholesterol Urine Creatinine Urine Microalbumin Vancomycin Trough Salicylates Acetaminophen 06/07/19 06/07/19 10:12 11:39 WBC RBC Hgb Hct MCH RDW Seg Neuts % (Manual) Lymphocytes % (Manual) Monocytes % (Manual) Seg Neutrophils # Man Lymphocytes # (Manual) Monocytes # (Manual) D-Dimer ABG pH ABG pO2 ABG HCO3 ABG O2 Saturation ABG Base Excess ABG Hemoglobin VBG pH Oxyhemoglobin Sodium 163 H* Potassium Chloride Carbon Dioxide BUN Creatinine Glucose POC Glucose 218 H Hemoglobin A1c Lactic Acid Calcium Phosphorus Magnesium Ferritin AST Alkaline Phosphatase Lactate Dehydrogenase C-Reactive Protein Total Protein Albumin Triglycerides Cholesterol Urine Creatinine Urine Microalbumin Vancomycin Trough Salicylates Acetaminophen Chest x-ray: image reviewed (bibasilar infiltrates) Allied health notes reviewed: nursing
[2019-06-07] MEDS: DEXTROSE 5% IN WATER 1,000 ML IV SCH (16:08)
--- NOTE | 2019-06-07 16:10 | Progress Note ---
Assessment and Plan Acute hypoxemic respiratory failure on MVS Bilateral pneumonia, possible aspiration. History of possible exposure to COVID-19, rule out COVID-19 infection. Diabetic ketoacidosis. Severe metabolic acidosis. Severe sepsis with acute encephalopathy and hypothermia. Acute toxic metabolic encephalopathy. Leukocytosis. Hemoconcentration. Elevated serum D-dimer. Acute kidney injury. Elevated serum transaminase. - begin D5W drip re: hypernatremia - increase Lantus to 35 units SQ BID - follow COVID-19 result - continue airborne, contact and droplet isolation - continue to wean supplemental oxygen for target O2 sat's > 90% acutely - continue Daily SAT and SBT assessment as tolerated - continue accuchecks resumed with glycemic control per Lantus and SSI (While critically ill target blood glucose of 140-180 mg/dL; avoid hypoglycemia) - sedation prn for target RASS 0 to -1 - VAP bundle addressed (aspiration precautions, HOB>40) - continue lung protective strategies - continue bronchodilators with pulmonary hygiene per RT - wean per pulmonary driven protocols otherwise - continue to avoid nephrotoxins, adjust all medications fro CrCL and GFR - continue to avoid benzodiazepine's; reduce the possibility of delirium - complete antiinfectives per ID rec's - prn analgesia per CPOT score - Maintenance of sleep-wake cycle, avoid delirium - enteral nutritional support at goal rate as tolerated - G.I. & VTE prophylaxis withy heparin and Famotidine - PT/OT/ROM exercises - continue mobility protocols for pressure ulcer prophylaxis - Monitor hemodynamics closely - continue other care per attending / other consultants - Influenza and pneumonia vaccinations addressed per protocol - continue other care per attending / other consultants .... Re-evaluate in am & prn CONDITION: CRITICAL PROGNOSIS: GUARDED CODE STATUS: FULL CODE The high probability of a clinically significant, sudden or life-threatening deterioration of the [respiratory, cardiovascular, endocrine, renal & neurologic] system(s) required my full and direct attention, intervention and personal management. The aggregate critical care time was [35] minutes without overlap. Time includes spent on; [x] Data Review and interpretation [x] Patient assessment and monitoring of vital signs [x] Documentation [x] Medication orders and management Subjective Date of service: 06/07/19 Principal diagnosis: Ac hypoxemic resp failure; Bob. PNA; PUI CVOVID-19; DKA; Severe sepsis Interval history: Patient is seen today for: Ac hypoxemic resp failure; Bob. pneumonia; PUI COVID- 19; DKA; Severe sepsis Seen and examined at bedside; 24hour events reviewed; nursing and respiratory care staff consulted; no adverse overnight events reported to me; resting peacefully in bed; remains on MVS; hypernatremia is persistent but still agitated during SAT's; blood sugars running high; COVID result pending PUI?: Yes Objective Vital Signs - 12hr 06/07/19 06/07/19 06/07/19 04:15 04:30 04:35 Temperature Pulse Rate 102 H 100 H 102 H Pulse Rate [ From Monitor] Respiratory 21 19 Rate Blood Pressure 153/104 142/95 O2 Sat by Pulse 92 92 Oximetry 06/07/19 06/07/19 06/07/19 04:45 05:00 05:15 Temperature Pulse Rate 103 H 103 H 104 H Pulse Rate [ From Monitor] Respiratory 21 22 22 Rate Blood Pressure 149/101 150/102 146/100 O2 Sat by Pulse 90 89 89 Oximetry 06/07/19 06/07/19 06/07/19 05:27 05:30 05:45 Temperature Pulse Rate 104 H 104 H 106 H Pulse Rate [ From Monitor] Respiratory 24 22 Rate Blood Pressure 146/100 163/99 159/104 O2 Sat by Pulse 91 90 91 Oximetry 06/07/19 06/07/19 06/07/19 06:00 06:15 06:30 Temperature Pulse Rate 106 H 106 H 107 H Pulse Rate [ From Monitor] Respiratory 22 27 H 20 Rate Blood Pressure 155/105 144/106 155/103 O2 Sat by Pulse 90 91 89 Oximetry 06/07/19 06/07/19 06/07/19 06:45 07:00 07:15 Temperature Pulse Rate 104 H 106 H 106 H Pulse Rate [ From Monitor] Respiratory 25 H 24 21 Rate Blood Pressure 161/111 155/103 155/98 O2 Sat by Pulse 91 91 93 Oximetry 06/07/19 06/07/19 06/07/19 07:30 07:45 08:00 Temperature 98.9 F Pulse Rate 103 H 105 H 104 H Pulse Rate [ 105 H From Monitor] Respiratory 20 19 23 Rate Blood Pressure 161/101 158/101 145/102 O2 Sat by Pulse 92 92 93 Oximetry 06/07/19 06/07/19 06/07/19 08:15 08:30 08:45 Temperature Pulse Rate 105 H 105 H 98 H Pulse Rate [ From Monitor] Respiratory 23 25 H 22 Rate Blood Pressure 149/101 154/105 137/90 O2 Sat by Pulse 92 93 92 Oximetry 06/07/19 06/07/19 06/07/19 08:51 09:01 09:14 Temperature Pulse Rate 108 H 106 H 105 H Pulse Rate [ From Monitor] Respiratory 20 Rate Blood Pressure 137/90 170/111 170/111 O2 Sat by Pulse 94 93 Oximetry 06/07/19 06/07/19 06/07/19 09:15 09:30 09:31 Temperature Pulse Rate 102 H 106 H 112 H Pulse Rate [ From Monitor] Respiratory 21 27 H Rate Blood Pressure 144/105 145/98 O2 Sat by Pulse 94 93 Oximetry 06/07/19 06/07/19 06/07/19 09:45 10:00 10:15 Temperature Pulse Rate 111 H 109 H 108 H Pulse Rate [ From Monitor] Respiratory 29 H 29 H 29 H Rate Blood Pressure 168/94 158/102 159/101 O2 Sat by Pulse 93 92 92 Oximetry 06/07/19 06/07/19 06/07/19 10:30 10:45 11:00 Temperature Pulse Rate 110 H 110 H 107 H Pulse Rate [ From Monitor] Respiratory 24 28 H 24 Rate Blood Pressure 143/94 156/98 145/99 O2 Sat by Pulse 92 92 93 Oximetry 06/07/19 06/07/19 06/07/19 11:15 11:30 11:31 Temperature Pulse Rate 107 H 111 H 108 H Pulse Rate [ From Monitor] Respiratory 24 22 Rate Blood Pressure 159/98 143/101 143/101 O2 Sat by Pulse 93 93 94 Oximetry 06/07/19 06/07/19 06/07/19 11:41 11:42 11:43 Temperature 98.4 F Pulse Rate 109 H Pulse Rate [ 106 H From Monitor] Respiratory 26 H Rate Blood Pressure O2 Sat by Pulse 94 Oximetry 06/07/19 06/07/19 06/07/19 11:45 12:00 12:15 Temperature Pulse Rate 106 H 106 H 110 H Pulse Rate [ From Monitor] Respiratory 21 21 20 Rate Blood Pressure 143/98 145/102 147/102 O2 Sat by Pulse 94 94 94 Oximetry 04/05/20 04/05/20 04/05/20 12:30 12:45 13:00 Temperature Pulse Rate 108 H 110 H 101 H Pulse Rate [ From Monitor] Respiratory 25 H 17 21 Rate Blood Pressure 153/96 140/95 131/88 O2 Sat by Pulse 95 95 Oximetry 06/07/19 06/07/19 06/07/19 13:15 13:30 13:45 Temperature Pulse Rate 97 H 104 H 105 H Pulse Rate [ From Monitor] Respiratory 21 22 19 Rate Blood Pressure 131/81 141/90 140/90 O2 Sat by Pulse 95 95 95 Oximetry 06/07/19 06/07/19 06/07/19 14:00 14:15 15:55 Temperature Pulse Rate 97 H 106 H 106 H Pulse Rate [ From Monitor] Respiratory 23 21 Rate Blood Pressure 140/84 150/96 153/93 O2 Sat by Pulse 96 96 95 Oximetry 06/07/19 16:08 Temperature Pulse Rate 102 H Pulse Rate [ From Monitor] Respiratory Rate Blood Pressure 173/103 O2 Sat by Pulse Oximetry Constitutional: no acute distress, other (Atraumatic, normocephalic, no patient- ventilator dys-synchrony) Eyes: non-icteric ENT: oropharynx moist, other (OGT in place, ETT in palce) Neck: supple, no lymphadenopathy, no JVD Effort: mildly labored Ascultation: Bilateral: diminished breath sounds, rhonchi Percussion: Bilateral: not dull Cardiovascular: irregular rhythm, other (S1,S2, no murmurs) Gastrointestinal: normoactive bowel sounds, soft, non-tender, non-distended Integumentary: normal Extremities: no cyanosis, no edema, pulses normal, no ischemia or petechiae Neurologic: unable to assess (sedated) Psychiatric: other (sedated) CBC and BMP: 06/11/19 04:31 06/11/19 04:31 ABG, PT/INR, D-dimer: ABG ABG pH 7.507 pH Units (7.350-7.450) H 06/07/19 04:39 ABG pCO2 42.1 mm Hg 06/07/19 04:39 ABG pO2 46.4 mm Hg (80.0-90.0) L 06/07/19 04:39 ABG O2 Saturation 90.6 % (95.0-99.0) L 06/07/19 04:39 PT/INR, D-dimer D-Dimer 1279.22 ng/mlDDU (0-234) H 06/06/19 04:37 Abnormal lab findings: Abnormal Labs 06/03/19 06/03/19 06/03/19 10:59 11:15 11:48 WBC RBC Hgb Hct MCH RDW Seg Neuts % (Manual) Lymphocytes % (Manual) Monocytes % (Manual) Seg Neutrophils # Man Lymphocytes # (Manual) Monocytes # (Manual) D-Dimer ABG pH ABG pO2 ABG HCO3 ABG O2 Saturation ABG Base Excess ABG Hemoglobin VBG pH Oxyhemoglobin Sodium Potassium Chloride Carbon Dioxide BUN Creatinine Glucose POC Glucose 372 H Hemoglobin A1c Lactic Acid Calcium Phosphorus 11.70 H Magnesium 4.40 H Ferritin AST Alkaline Phosphatase Lactate Dehydrogenase C-Reactive Protein Total Protein Albumin Triglycerides Cholesterol Urine Creatinine 37.4 H Urine Microalbumin 65.1 H Vancomycin Trough Salicylates Acetaminophen 06/03/19 06/03/19 06/03/19 11:51 11:51 11:51 WBC 23.3 H RBC 6.43 H Hgb 17.7 H Hct 59.9 H* MCH RDW 17.1 H Seg Neuts % (Manual) 71.0 H Lymphocytes % (Manual) 11.0 L Monocytes % (Manual) 8.0 H Seg Neutrophils # Man 16.5 H Lymphocytes # (Manual) Monocytes # (Manual) 1.9 H D-Dimer ABG pH ABG pO2 ABG HCO3 ABG O2 Saturation ABG Base Excess ABG Hemoglobin VBG pH Oxyhemoglobin Sodium Potassium Chloride Carbon Dioxide 4 L* BUN 41 H Creatinine 1.8 H Glucose 636 H* POC Glucose Hemoglobin A1c Lactic Acid 3.20 H* Calcium 10.9 H Phosphorus Magnesium Ferritin AST 43 H Alkaline Phosphatase 147 H Lactate Dehydrogenase 673 H C-Reactive Protein 14.70 H Total Protein 8.9 H Albumin Triglycerides Cholesterol Urine Creatinine Urine Microalbumin Vancomycin Trough Salicylates Acetaminophen 06/03/19 06/03/19 06/03/19 11:51 11:51 11:51 WBC RBC Hgb Hct MCH RDW Seg Neuts % (Manual) Lymphocytes % (Manual) Monocytes % (Manual) Seg Neutrophils # Man Lymphocytes # (Manual) Monocytes # (Manual) D-Dimer ABG pH ABG pO2 ABG HCO3 ABG O2 Saturation ABG Base Excess ABG Hemoglobin VBG pH 6.901 L* Oxyhemoglobin Sodium Potassium Chloride Carbon Dioxide BUN Creatinine Glucose POC Glucose Hemoglobin A1c Lactic Acid Calcium Phosphorus Magnesium Ferritin AST Alkaline Phosphatase Lactate Dehydrogenase C-Reactive Protein Total Protein Albumin Triglycerides Cholesterol Urine Creatinine Urine Microalbumin Vancomycin Trough Salicylates < 0.3 L Acetaminophen < 5.0 L 06/03/19 06/03/19 06/03/19 11:51 11:51 12:34 WBC RBC Hgb Hct MCH RDW Seg Neuts % (Manual) Lymphocytes % (Manual) Monocytes % (Manual) Seg Neutrophils # Man Lymphocytes # (Manual) Monocytes # (Manual) D-Dimer 4311.60 H ABG pH ABG pO2 ABG HCO3 ABG O2 Saturation ABG Base Excess ABG Hemoglobin VBG pH Oxyhemoglobin Sodium Potassium Chloride Carbon Dioxide BUN Creatinine Glucose POC Glucose Hemoglobin A1c Lactic Acid 5.20 H* Calcium Phosphorus Magnesium Ferritin 1037.0 H AST Alkaline Phosphatase Lactate Dehydrogenase C-Reactive Protein Total Protein Albumin Triglycerides Cholesterol Urine Creatinine Urine Microalbumin Vancomycin Trough Salicylates Acetaminophen 06/03/19 06/03/19 06/03/19 14:30 16:03 17:00 WBC RBC Hgb Hct MCH RDW Seg Neuts % (Manual) Lymphocytes % (Manual) Monocytes % (Manual) Seg Neutrophils # Man Lymphocytes # (Manual) Monocytes # (Manual) D-Dimer ABG pH 6.880 L* ABG pO2 489.9 H ABG HCO3 7.1 L ABG O2 Saturation 99.6 H ABG Base Excess -26.1 L ABG Hemoglobin 16.2 H VBG pH Oxyhemoglobin Sodium Potassium Chloride Carbon Dioxide BUN Creatinine Glucose POC Glucose 335 H Hemoglobin A1c 9.6 H Lactic Acid Calcium Phosphorus Magnesium Ferritin AST Alkaline Phosphatase Lactate Dehydrogenase C-Reactive Protein Total Protein Albumin Triglycerides Cholesterol Urine Creatinine Urine Microalbumin Vancomycin Trough Salicylates Acetaminophen 06/03/19 06/03/19 06/03/19 18:14 18:24 19:00 WBC RBC Hgb Hct MCH RDW Seg Neuts % (Manual) Lymphocytes % (Manual) Monocytes % (Manual) Seg Neutrophils # Man Lymphocytes # (Manual) Monocytes # (Manual) D-Dimer ABG pH 7.057 L* ABG pO2 97.2 H ABG HCO3 5.5 L ABG O2 Saturation ABG Base Excess -23.0 L ABG Hemoglobin 18.1 H VBG pH Oxyhemoglobin 94.4 L Sodium Potassium Chloride Carbon Dioxide BUN Creatinine Glucose POC Glucose 285 H Hemoglobin A1c Lactic Acid 3.40 H* Calcium Phosphorus Magnesium Ferritin AST Alkaline Phosphatase Lactate Dehydrogenase C-Reactive Protein Total Protein Albumin Triglycerides Cholesterol Urine Creatinine Urine Microalbumin Vancomycin Trough Salicylates Acetaminophen 06/03/19 06/03/19 06/03/19 19:00 19:00 19:52 WBC RBC Hgb Hct MCH RDW Seg Neuts % (Manual) Lymphocytes % (Manual) Monocytes % (Manual) Seg Neutrophils # Man Lymphocytes # (Manual) Monocytes # (Manual) D-Dimer ABG pH ABG pO2 ABG HCO3 ABG O2 Saturation ABG Base Excess ABG Hemoglobin VBG pH Oxyhemoglobin Sodium 151 H Potassium Chloride 120.8 H Carbon Dioxide 6 L* BUN 33 H Creatinine 1.4 H Glucose 339 H POC Glucose 316 H Hemoglobin A1c Lactic Acid Calcium Phosphorus Magnesium Ferritin AST 47 H Alkaline Phosphatase 130 H Lactate Dehydrogenase C-Reactive Protein Total Protein Albumin 3.7 L Triglycerides 424 H Cholesterol 250 H Urine Creatinine Urine Microalbumin Vancomycin Trough Salicylates Acetaminophen 06/03/19 06/03/19 06/03/19 20:21 20:21 21:01 WBC RBC Hgb Hct MCH RDW Seg Neuts % (Manual) Lymphocytes % (Manual) Monocytes % (Manual) Seg Neutrophils # Man Lymphocytes # (Manual) Monocytes # (Manual) D-Dimer ABG pH ABG pO2 ABG HCO3 ABG O2 Saturation ABG Base Excess ABG Hemoglobin VBG pH Oxyhemoglobin Sodium 153 H Potassium Chloride 121.8 H Carbon Dioxide 6 L* BUN 34 H Creatinine 1.3 H Glucose 324 H POC Glucose 245 H Hemoglobin A1c Lactic Acid 3.10 H* Calcium Phosphorus Magnesium Ferritin AST Alkaline Phosphatase Lactate Dehydrogenase C-Reactive Protein Total Protein Albumin Triglycerides Cholesterol Urine Creatinine Urine Microalbumin Vancomycin Trough Salicylates Acetaminophen 06/03/19 06/03/19 06/03/19 21:25 21:32 22:42 WBC RBC Hgb Hct MCH RDW Seg Neuts % (Manual) Lymphocytes % (Manual) Monocytes % (Manual) Seg Neutrophils # Man Lymphocytes # (Manual) Monocytes # (Manual) D-Dimer ABG pH 7.172 L* ABG pO2 107.2 H ABG HCO3 5.2 L ABG O2 Saturation ABG Base Excess -20.5 L ABG Hemoglobin 17.3 H VBG pH Oxyhemoglobin Sodium 155 H Potassium 2.6 L* D Chloride 130.1 H Carbon Dioxide 5 L* BUN 24 H Creatinine Glucose 212 H POC Glucose 225 H Hemoglobin A1c Lactic Acid Calcium 5.8 L* D Phosphorus Magnesium Ferritin AST Alkaline Phosphatase Lactate Dehydrogenase C-Reactive Protein Total Protein Albumin Triglycerides Cholesterol Urine Creatinine Urine Microalbumin Vancomycin Trough Salicylates Acetaminophen 06/03/19 06/04/19 06/04/19 23:32 00:04 01:25 WBC RBC Hgb Hct MCH RDW Seg Neuts % (Manual) Lymphocytes % (Manual) Monocytes % (Manual) Seg Neutrophils # Man Lymphocytes # (Manual) Monocytes # (Manual) D-Dimer ABG pH ABG pO2 ABG HCO3 ABG O2 Saturation ABG Base Excess ABG Hemoglobin VBG pH Oxyhemoglobin Sodium 151 H 151 H Potassium 1.5 L* D Chloride 139.0 H 124.7 H Carbon Dioxide 3 L* 9 L* BUN 31 H Creatinine 0.2 L D Glucose 117 H 241 H POC Glucose 231 H Hemoglobin A1c Lactic Acid Calcium 3.1 L* D Phosphorus Magnesium Ferritin AST Alkaline Phosphatase Lactate Dehydrogenase C-Reactive Protein Total Protein Albumin Triglycerides Cholesterol Urine Creatinine Urine Microalbumin Vancomycin Trough Salicylates Acetaminophen 06/04/19 06/04/19 06/04/19 01:34 02:45 03:21 WBC RBC Hgb Hct MCH RDW Seg Neuts % (Manual) Lymphocytes % (Manual) Monocytes % (Manual) Seg Neutrophils # Man Lymphocytes # (Manual) Monocytes # (Manual) D-Dimer ABG pH ABG pO2 ABG HCO3 ABG O2 Saturation ABG Base Excess ABG Hemoglobin VBG pH Oxyhemoglobin Sodium Potassium Chloride Carbon Dioxide BUN Creatinine Glucose POC Glucose 194 H 189 H 183 H Hemoglobin A1c Lactic Acid Calcium Phosphorus Magnesium Ferritin AST Alkaline Phosphatase Lactate Dehydrogenase C-Reactive Protein Total Protein Albumin Triglycerides Cholesterol Urine Creatinine Urine Microalbumin Vancomycin Trough Salicylates Acetaminophen 06/04/19 06/04/19 06/04/19 04:50 05:07 06:27 WBC RBC Hgb Hct MCH RDW Seg Neuts % (Manual) Lymphocytes % (Manual) Monocytes % (Manual) Seg Neutrophils # Man Lymphocytes # (Manual) Monocytes # (Manual) D-Dimer ABG pH ABG pO2 76.5 L ABG HCO3 12.9 L ABG O2 Saturation ABG Base Excess -9.0 L ABG Hemoglobin VBG pH Oxyhemoglobin Sodium Potassium Chloride Carbon Dioxide BUN Creatinine Glucose POC Glucose 200 H 164 H Hemoglobin A1c Lactic Acid Calcium Phosphorus Magnesium Ferritin AST Alkaline Phosphatase Lactate Dehydrogenase C-Reactive Protein Total Protein Albumin Triglycerides Cholesterol Urine Creatinine Urine Microalbumin Vancomycin Trough Salicylates Acetaminophen 06/04/19 06/04/19 06/04/19 07:00 07:00 07:00 WBC 13.4 H RBC 5.54 H Hgb 15.3 H Hct 46.1 H D MCH RDW Seg Neuts % (Manual) 72.0 H Lymphocytes % (Manual) 6.0 L Monocytes % (Manual) Seg Neutrophils # Man 9.6 H Lymphocytes # (Manual) 0.8 L Monocytes # (Manual) D-Dimer ABG pH ABG pO2 ABG HCO3 ABG O2 Saturation ABG Base Excess ABG Hemoglobin VBG pH Oxyhemoglobin Sodium 158 H 156 H Potassium 2.7 L* D 2.6 L* Chloride 124.3 H 123.5 H Carbon Dioxide 11 L 11 L BUN 25 H 26 H Creatinine Glucose 192 H 190 H POC Glucose Hemoglobin A1c Lactic Acid Calcium Phosphorus Magnesium Ferritin AST 43 H Alkaline Phosphatase Lactate Dehydrogenase 590 H C-Reactive Protein 22.70 H Total Protein Albumin 2.9 L Triglycerides Cholesterol Urine Creatinine Urine Microalbumin Vancomycin Trough Salicylates Acetaminophen 06/04/19 06/04/19 06/04/19 07:00 07:00 07:14 WBC RBC Hgb Hct MCH RDW Seg Neuts % (Manual) Lymphocytes % (Manual) Monocytes % (Manual) Seg Neutrophils # Man Lymphocytes # (Manual) Monocytes # (Manual) D-Dimer 2050.33 H ABG pH ABG pO2 ABG HCO3 ABG O2 Saturation ABG Base Excess ABG Hemoglobin VBG pH Oxyhemoglobin Sodium Potassium Chloride Carbon Dioxide BUN Creatinine Glucose POC Glucose 176 H Hemoglobin A1c Lactic Acid Calcium Phosphorus Magnesium Ferritin 941.3 H AST Alkaline Phosphatase Lactate Dehydrogenase C-Reactive Protein Total Protein Albumin Triglycerides Cholesterol Urine Creatinine Urine Microalbumin Vancomycin Trough Salicylates Acetaminophen 06/04/19 06/04/19 06/04/19 09:55 11:38 12:19 WBC RBC Hgb Hct MCH RDW Seg Neuts % (Manual) Lymphocytes % (Manual) Monocytes % (Manual) Seg Neutrophils # Man Lymphocytes # (Manual) Monocytes # (Manual) D-Dimer ABG pH ABG pO2 ABG HCO3 ABG O2 Saturation ABG Base Excess ABG Hemoglobin VBG pH Oxyhemoglobin Sodium Potassium Chloride Carbon Dioxide BUN Creatinine Glucose POC Glucose 184 H 145 H 144 H Hemoglobin A1c Lactic Acid Calcium Phosphorus Magnesium Ferritin AST Alkaline Phosphatase Lactate Dehydrogenase C-Reactive Protein Total Protein Albumin Triglycerides Cholesterol Urine Creatinine Urine Microalbumin Vancomycin Trough Salicylates Acetaminophen 06/04/19 06/04/19 06/04/19 13:35 14:29 15:06 WBC RBC Hgb Hct MCH RDW Seg Neuts % (Manual) Lymphocytes % (Manual) Monocytes % (Manual) Seg Neutrophils # Man Lymphocytes # (Manual) Monocytes # (Manual) D-Dimer ABG pH ABG pO2 ABG HCO3 ABG O2 Saturation ABG Base Excess ABG Hemoglobin VBG pH Oxyhemoglobin Sodium 157 H Potassium 2.4 L* Chloride 121.4 H Carbon Dioxide 20 L D BUN 21 H Creatinine Glucose 176 H POC Glucose 151 H 142 H Hemoglobin A1c Lactic Acid Calcium Phosphorus Magnesium Ferritin AST Alkaline Phosphatase Lactate Dehydrogenase C-Reactive Protein Total Protein Albumin Triglycerides Cholesterol Urine Creatinine Urine Microalbumin Vancomycin Trough Salicylates Acetaminophen 06/04/19 06/04/19 06/04/19 17:14 17:51 21:45 WBC RBC Hgb Hct MCH RDW Seg Neuts % (Manual) Lymphocytes % (Manual) Monocytes % (Manual) Seg Neutrophils # Man Lymphocytes # (Manual) Monocytes # (Manual) D-Dimer ABG pH ABG pO2 ABG HCO3 ABG O2 Saturation ABG Base Excess ABG Hemoglobin VBG pH Oxyhemoglobin Sodium Potassium Chloride Carbon Dioxide BUN Creatinine Glucose POC Glucose 200 H 159 H 143 H Hemoglobin A1c Lactic Acid Calcium Phosphorus Magnesium Ferritin AST Alkaline Phosphatase Lactate Dehydrogenase C-Reactive Protein Total Protein Albumin Triglycerides Cholesterol Urine Creatinine Urine Microalbumin Vancomycin Trough Salicylates Acetaminophen 06/04/19 06/04/19 06/04/19 22:20 22:21 23:27 WBC RBC Hgb Hct MCH RDW Seg Neuts % (Manual) Lymphocytes % (Manual) Monocytes % (Manual) Seg Neutrophils # Man Lymphocytes # (Manual) Monocytes # (Manual) D-Dimer ABG pH 7.572 H ABG pO2 58.5 L ABG HCO3 ABG O2 Saturation ABG Base Excess 3.5 H ABG Hemoglobin 20.0 H VBG pH Oxyhemoglobin 94.6 L Sodium Potassium Chloride Carbon Dioxide BUN Creatinine Glucose POC Glucose 154 H 147 H Hemoglobin A1c Lactic Acid Calcium Phosphorus Magnesium Ferritin AST Alkaline Phosphatase Lactate Dehydrogenase C-Reactive Protein Total Protein Albumin Triglycerides Cholesterol Urine Creatinine Urine Microalbumin Vancomycin Trough Salicylates Acetaminophen 06/05/19 06/05/19 06/05/19 00:27 01:16 02:20 WBC RBC Hgb Hct MCH RDW Seg Neuts % (Manual) Lymphocytes % (Manual) Monocytes % (Manual) Seg Neutrophils # Man Lymphocytes # (Manual) Monocytes # (Manual) D-Dimer ABG pH ABG pO2 ABG HCO3 ABG O2 Saturation ABG Base Excess ABG Hemoglobin VBG pH Oxyhemoglobin Sodium Potassium Chloride Carbon Dioxide BUN Creatinine Glucose POC Glucose 124 H 126 H 156 H Hemoglobin A1c Lactic Acid Calcium Phosphorus Magnesium Ferritin AST Alkaline Phosphatase Lactate Dehydrogenase C-Reactive Protein Total Protein Albumin Triglycerides Cholesterol Urine Creatinine Urine Microalbumin Vancomycin Trough Salicylates Acetaminophen 06/05/19 06/05/19 06/05/19 03:44 03:59 04:52 WBC RBC Hgb Hct MCH RDW Seg Neuts % (Manual) Lymphocytes % (Manual) Monocytes % (Manual) Seg Neutrophils # Man Lymphocytes # (Manual) Monocytes # (Manual) D-Dimer ABG pH ABG pO2 ABG HCO3 ABG O2 Saturation ABG Base Excess ABG Hemoglobin VBG pH Oxyhemoglobin Sodium 155 H Potassium 3.0 L D Chloride 114.7 H Carbon Dioxide BUN Creatinine 0.6 L Glucose 136 H POC Glucose 143 H 141 H Hemoglobin A1c Lactic Acid Calcium Phosphorus Magnesium Ferritin AST Alkaline Phosphatase Lactate Dehydrogenase C-Reactive Protein Total Protein Albumin Triglycerides Cholesterol Urine Creatinine Urine Microalbumin Vancomycin Trough Salicylates Acetaminophen 06/05/19 06/05/19 06/05/19 05:00 05:54 07:01 WBC RBC Hgb Hct MCH RDW Seg Neuts % (Manual) Lymphocytes % (Manual) Monocytes % (Manual) Seg Neutrophils # Man Lymphocytes # (Manual) Monocytes # (Manual) D-Dimer ABG pH 7.621 H* ABG pO2 54.3 L ABG HCO3 29.8 H ABG O2 Saturation ABG Base Excess 8.8 H ABG Hemoglobin VBG pH Oxyhemoglobin Sodium Potassium Chloride Carbon Dioxide BUN Creatinine Glucose POC Glucose 155 H 145 H Hemoglobin A1c Lactic Acid Calcium Phosphorus Magnesium Ferritin AST Alkaline Phosphatase Lactate Dehydrogenase C-Reactive Protein Total Protein Albumin Triglycerides Cholesterol Urine Creatinine Urine Microalbumin Vancomycin Trough Salicylates Acetaminophen 06/05/19 06/05/19 06/05/19 12:13 18:23 21:00 WBC RBC Hgb Hct MCH RDW Seg Neuts % (Manual) Lymphocytes % (Manual) Monocytes % (Manual) Seg Neutrophils # Man Lymphocytes # (Manual) Monocytes # (Manual) D-Dimer ABG pH ABG pO2 ABG HCO3 ABG O2 Saturation ABG Base Excess ABG Hemoglobin VBG pH Oxyhemoglobin Sodium Potassium Chloride Carbon Dioxide BUN Creatinine Glucose POC Glucose 202 H 257 H Hemoglobin A1c Lactic Acid Calcium Phosphorus Magnesium Ferritin AST Alkaline Phosphatase Lactate Dehydrogenase C-Reactive Protein Total Protein Albumin Triglycerides Cholesterol Urine Creatinine Urine Microalbumin Vancomycin Trough 4.2 L Salicylates Acetaminophen 06/05/19 06/06/19 06/06/19 23:55 04:16 04:37 WBC RBC Hgb Hct MCH RDW Seg Neuts % (Manual) Lymphocytes % (Manual) Monocytes % (Manual) Seg Neutrophils # Man Lymphocytes # (Manual) Monocytes # (Manual) D-Dimer 1279.22 H ABG pH 7.600 H ABG pO2 62.4 L ABG HCO3 28.0 H ABG O2 Saturation ABG Base Excess 6.6 H ABG Hemoglobin 10.4 L VBG pH Oxyhemoglobin Sodium Potassium Chloride Carbon Dioxide BUN Creatinine Glucose POC Glucose 267 H Hemoglobin A1c Lactic Acid Calcium Phosphorus Magnesium Ferritin AST Alkaline Phosphatase Lactate Dehydrogenase C-Reactive Protein Total Protein Albumin Triglycerides Cholesterol Urine Creatinine Urine Microalbumin Vancomycin Trough Salicylates Acetaminophen 06/06/19 06/06/19 06/06/19 04:37 04:37 04:37 WBC 12.2 H RBC 5.10 H Hgb Hct MCH 27 L RDW Seg Neuts % (Manual) Lymphocytes % (Manual) Monocytes % (Manual) Seg Neutrophils # Man Lymphocytes # (Manual) Monocytes # (Manual) D-Dimer ABG pH ABG pO2 ABG HCO3 ABG O2 Saturation ABG Base Excess ABG Hemoglobin VBG pH Oxyhemoglobin Sodium 156 H Potassium 3.4 L Chloride 112.9 H Carbon Dioxide BUN 21 H Creatinine 0.6 L Glucose 332 H POC Glucose Hemoglobin A1c Lactic Acid Calcium Phosphorus Magnesium Ferritin 1649.0 H AST Alkaline Phosphatase Lactate Dehydrogenase 578 H C-Reactive Protein 22.10 H Total Protein Albumin Triglycerides Cholesterol Urine Creatinine Urine Microalbumin Vancomycin Trough Salicylates Acetaminophen 06/06/19 06/06/19 06/06/19 05:45 11:55 12:21 WBC RBC Hgb Hct MCH RDW Seg Neuts % (Manual) Lymphocytes % (Manual) Monocytes % (Manual) Seg Neutrophils # Man Lymphocytes # (Manual) Monocytes # (Manual) D-Dimer ABG pH 7.511 H ABG pO2 123.0 H ABG HCO3 29.7 H ABG O2 Saturation ABG Base Excess 6.4 H ABG Hemoglobin VBG pH Oxyhemoglobin Sodium Potassium Chloride Carbon Dioxide BUN Creatinine Glucose POC Glucose 303 H 281 H Hemoglobin A1c Lactic Acid Calcium Phosphorus Magnesium Ferritin AST Alkaline Phosphatase Lactate Dehydrogenase C-Reactive Protein Total Protein Albumin Triglycerides Cholesterol Urine Creatinine Urine Microalbumin Vancomycin Trough Salicylates Acetaminophen 06/06/19 06/07/19 06/07/19 17:06 00:25 04:39 WBC RBC Hgb Hct MCH RDW Seg Neuts % (Manual) Lymphocytes % (Manual) Monocytes % (Manual) Seg Neutrophils # Man Lymphocytes # (Manual) Monocytes # (Manual) D-Dimer ABG pH 7.507 H ABG pO2 46.4 L ABG HCO3 32.6 H ABG O2 Saturation 90.6 L ABG Base Excess 8.6 H ABG Hemoglobin VBG pH Oxyhemoglobin 89.2 L Sodium Potassium Chloride Carbon Dioxide BUN Creatinine Glucose POC Glucose 251 H 225 H Hemoglobin A1c Lactic Acid Calcium Phosphorus Magnesium Ferritin AST Alkaline Phosphatase Lactate Dehydrogenase C-Reactive Protein Total Protein Albumin Triglycerides Cholesterol Urine Creatinine Urine Microalbumin Vancomycin Trough Salicylates Acetaminophen 06/07/19 06/07/19 06/07/19 04:43 04:43 04:43 WBC 13.6 H RBC 5.14 H Hgb Hct 43.4 H MCH 27 L RDW Seg Neuts % (Manual) Lymphocytes % (Manual) Monocytes % (Manual) Seg Neutrophils # Man Lymphocytes # (Manual) Monocytes # (Manual) D-Dimer ABG pH ABG pO2 ABG HCO3 ABG O2 Saturation ABG Base Excess ABG Hemoglobin VBG pH Oxyhemoglobin Sodium 166 H* D Potassium 3.0 L Chloride 122.9 H Carbon Dioxide BUN 27 H Creatinine 0.5 L Glucose 265 H POC Glucose Hemoglobin A1c Lactic Acid Calcium Phosphorus Magnesium Ferritin AST Alkaline Phosphatase Lactate Dehydrogenase C-Reactive Protein Total Protein Albumin Triglycerides 373 H Cholesterol Urine Creatinine Urine Microalbumin Vancomycin Trough Salicylates Acetaminophen 06/07/19 06/07/19 10:12 11:39 WBC RBC Hgb Hct MCH RDW Seg Neuts % (Manual) Lymphocytes % (Manual) Monocytes % (Manual) Seg Neutrophils # Man Lymphocytes # (Manual) Monocytes # (Manual) D-Dimer ABG pH ABG pO2 ABG HCO3 ABG O2 Saturation ABG Base Excess ABG Hemoglobin VBG pH Oxyhemoglobin Sodium 163 H* Potassium Chloride Carbon Dioxide BUN Creatinine Glucose POC Glucose 218 H Hemoglobin A1c Lactic Acid Calcium Phosphorus Magnesium Ferritin AST Alkaline Phosphatase Lactate Dehydrogenase C-Reactive Protein Total Protein Albumin Triglycerides Cholesterol Urine Creatinine Urine Microalbumin Vancomycin Trough Salicylates Acetaminophen Chest x-ray: image reviewed (persistent bibasilar infiltrates) Allied health notes reviewed: nursing
[2019-06-07 16:11] LABS: BUN/Creatinine Ratio 44; Blood Urea Nitrogen 22 mg/dL (7-17); Calcium 9.4 mg/dL (8.4-10.2); Hemolysis Index 44
[2019-06-07] MEDS ORDERED: INSULIN GLARGINE 100 UNITS/ML SUB-Q SCH (17:00)
[2019-06-07 17:33] LABS: Osmolality,Urine 755 Mosm/kg
[2019-06-07] MEDS: POTASSIUM CHLORIDE 20 MEQ PACKET FEEDTUBE SCH ×2 (18:01→23:17)
[2019-06-08] MEDS: INSULIN REGULAR, HUMAN 100 UNITS/1 ML SUB-Q SCH ×6 (00:35→17:40)
[2019-06-08] MEDS: DEXTROSE 5% IN WATER 1,000 ML IV SCH (03:05)
--- NOTE | 2019-06-08 03:45 | XRay Report ---
CHEST 1 VIEW INDICATION / CLINICAL INFORMATION: follow up respiratory failure. COMPARISON: 06/07/2019 FINDINGS: SUPPORT DEVICES: Stable, satisfactory device positioning. HEART / MEDIASTINUM: No significant abnormality. LUNGS / PLEURA: Inhomogeneous densities in both lungs are unchanged. No pneumothorax. ADDITIONAL FINDINGS: No significant additional findings. IMPRESSION: 1. Bilateral lung disease is unchanged. Signer Name: Ar Das MD Signed: 06/08/2019 3:41 AM Workstation Name: [id number]
[2019-06-08 04:26] LABS: ABG Base Excess 8.4 mmol/L (-2.0-3.0); ABG HCO3 32.3 mmol/L (20.0-26.0); ABG Methemoglobin 0.4 % (0.0-1.5); ABG Oxygen Saturation 93.7 % (95.0-99.0); ABG PH 7.504 pH Units (7.350-7.450); ABG PO2 54.2 mm Hg (80.0-90.0)
[2019-06-08] MEDS: metroNIDAZOLE/NS 500 MG/100 ML 500 MG/100 ML BAG IV SCH ×3 (06:12→21:42)
--- NOTE | 2019-06-08 08:12 | Progress Note ---
Assessment and Plan Assessment and plan: Mrs. Tomas is a 48-year-old female with a history of hypertension, type 2 diabetes mellitus events with altered mental status. She arrived per EMS. Last known time normal 10 PM on night prior to admission. Patient is nonverbal. History obtained from paramedics and electronic medical record. Patient had been ill with fever cough for the past several days. She recently returned back from [place]. EMS discovered patient to be altered with work of breathing. Patient is nonverbal. She was not moving her right side. She is hypoxic at 77% room air. Blood pressure was 140/97. Blood sugar was elevated fingerstick. Hx obtained from [facility] realized that patient was not speaking 4 AM. Found her later breathing really heavy. Unresponsive. When she came back from [place] last Saturday. She had high fever. Her doctor ordered test for COVID-19. Dr. Rausch her PCP informed patient that she tested negative. She went to [place] to celebrate her mother's birthday. On admission she was noted to be in DKA and started on DKA protocol. She was al so intubated and on full mechanical ventilatory support. Diagnostic work-up so far EKG shows sinus tachycardia with MAT CT head no acute intracranial process CT cervical spine patchy groundglass consolidative airspace disease right mid to lower lung Mrs. Tomas presents with altered mental status hypoxia. She required mechanical ventilation for oxygenation and airway control. Initially was not moving her right side. With oxygen supplementation she began to move both of her arms. She continued to be nonverbal. She did not follow commands prior to intubation. With CT chest findings and history of fever I strongly suspect COVID 19. Although she previously tested negative there is significant support of false negative test so we will retest. survey form was filled out in the ED by the ED physician through the [facility] department of health as a person under investigation for COVID 19. Patient returned 1 week ago from [place] after celebrating her mother's birthday. * COVID 19 test results came back positive has been advised to forego quarantine himself. COVID 19 Induced Pneumonia Acute hypoxic respiratory failure mild on mechanical ventilation Hypernatremia-remains elevated will increase free water. Hypertension Acute metabolic encephalopathy Right upper extremity weakness now resolved Pneumonia Hypokalemia Leukocytosis Sepsis secondary to pneumonia-with hypothermia Severe metabolic acidosis DKA-resolved Diabetes mellitus with uncontrolled blood sugar Plan 06/04: Remains on full mechanical support. Patient with respiratory alkalosis noted. Adjustment made to the ventilator to decrease the rate. Will replace potassium as hypokalemia still persist. Hypernatremia gradually improving will adjust free water. Patient's anion gap is finally closed will transition to sliding scale coverage with Lantus. Anticipate weaning trial today if patient is amendable to it. Oxygen at requirements per vent settings appears to be improving 06/05: Leukocytosis improving although patient still hypoxic on the ventilator. Awaiting COVID 19 testing results. In addition continue antibiotics for broad- spectrum coverage. Will adjust insulin for better blood sugar control. 06/06: We will increase free water to 300 cc every 4 hours. We will also obtain consultation from spa therapist. Otherwise continue current therapy. Also noted to have diastolic hypertension will adjust blood pressure medications. Initiated home meds. 06/07: Sodium gradually improving, will adjust free water to 350 while awaiting todays lab and spa therapist. Patient still with non purposeful movement. Will discuss with ID about possible trial drug Ivermectin. Adjust basal insulin to 40 units BID Continue intensive care monitoring. Mathematics Technician and infectious disease consult input noted EKG reviewed no evidence of atrial fibrillation will repeat. Replace potassium DKA protocol with insulin-will be discontinued f/u COVID test - pending Continue COVID isolation precautions per [facility] protocol Will likely be started on Plaquenil and azithromycin but will defer to ID physician Obtain serial Ferritin, LDH, D-Dimer, CRP every 48h Empiric antibiotic coverage, obtain blood cultures and urine cultures and sputum cultures. Wean from vent as tolerated defer to sports team manager We will monitor EKG for any visualization of the atrial fibrillation. If persis t will obtain cardiology consult. DVT and GI prophylaxis The high probability of a clinically significant, sudden or life threatening deterioration of the [pulmonary, neuro,] system(s) required my full and direct attention, intervention and personal management. The aggregate critical care time was [35] minutes. This time is in addition to time spent performing reported procedures but includes the following: [x] Data Review and interpretation [x] Patient assessment and monitoring of vital signs [x] Documentation [x] Medication orders and management History Interval history: Patient seen and examined remains on the vent. Blinks on command during sedation vacation./ Hospitalist Physical - Physical exam Narrative exam: VITAL SIGNS: Reviewed. limited exam due to limited COVID19 PPE GENERAL: The patient appears normally developed, sedated and intubated vital signs as documented. HEAD: No signs of head trauma. EYES: Pupils are equal. Unable to examine EARS: Unable to examine MOUTH: Oropharynx is normal. ET tube in place NECK: No adenopathy, no JVD. CHEST: Chest with clear breath sounds bilaterally. No wheezes, rales, or rhonchi. CARDIAC: Regular rate and rhythm. S1 and S2, without murmurs, gallops, or rubs. VASCULAR: No Edema. Peripheral pulses normal and equal in all extremities. ABDOMEN: Soft, non tender and non distended. No rebound or guarding, and no masses palpated. Bowel Sounds normal. MUSCULOSKELETAL: Per ED documentation was moving left arm but not the right arm.. Extremities without clubbing, cyanosis or edema. NEUROLOGIC EXAM: Intubated and sedated PSYCHIATRIC: Unable to examine SKIN: detail exam as documented in skin assessment - Constitutional Vitals: Temp Pulse Resp BP Pulse Ox 99.6 F 98 H 18 118/72 95 06/08/19 04:00 06/08/19 06:45 06/08/19 06:45 06/08/19 06:45 06/08/19 06:45 MACK score - Mack Score Age > 65: (0) No 3 or more CAD Risk Factors: (1) Yes 2 or more Angina events in past 24 hrs: (0) No Known CAD with more than 50% Stenosis: (0) No Elevated Cardiac Markers: (0) No ST Deviation Greater than 0.5mm: (0) No Results - Labs CBC & Chem 7: 06/08/19 09:33 06/08/19 09:33 Labs: Laboratory Last Values WBC 13.6 K/mm3 (4.5-11.0) H 06/07/19 04:43 RBC 5.14 M/mm3 (3.65-5.03) H 06/07/19 04:43 Hgb 14.1 gm/dl (10.1-14.3) 06/07/19 04:43 Hct 43.4 % (30.3-42.9) H 06/07/19 04:43 MCV 85 fl (79-97) 06/07/19 04:43 MCH 27 pg (28-32) L 06/07/19 04:43 MCHC 33 % (30-34) 06/07/19 04:43 RDW 14.2 % (13.2-15.2) 06/07/19 04:43 Plt Count 236 K/mm3 (140-440) 06/07/19 04:43 Lymph % (Auto) Ingredient Scaler Helper 06/03/19 11:51 [place] % (Auto) Ingredient Scaler Helper 06/03/19 11:51 Eos % (Auto) Ingredient Scaler Helper 06/03/19 11:51 Baso % (Auto) Ingredient Scaler Helper 06/03/19 11:51 Lymph # Ingredient Scaler Helper 06/03/19 11:51 [place] # Ingredient Scaler Helper 06/03/19 11:51 Eos # Ingredient Scaler Helper 06/03/19 11:51 Baso # Ingredient Scaler Helper 06/03/19 11:51 Add Manual Diff Complete 06/04/19 07:00 Total Counted 100 06/04/19 07:00 Seg Neutrophils % Ingredient Scaler Helper 06/04/19 07:00 Seg Neuts % (Manual) 72.0 % (40.0-70.0) H 06/04/19 07:00 Band Neutrophils % 20.0 % 06/04/19 07:00 Lymphocytes % (Manual) 6.0 % (13.4-35.0) L 06/04/19 07:00 Reactive Lymphs % (Man) 0 % 06/04/19 07:00 Monocytes % (Manual) 2.0 % (0.0-7.3) 06/04/19 07:00 Eosinophils % (Manual) 0 % (0.0-4.3) 06/04/19 07:00 Basophils % (Manual) 0 % (0.0-1.8) 06/04/19 07:00 Metamyelocytes % 0 % 06/04/19 07:00 Myelocytes % 0 % 06/04/19 07:00 Promyelocytes % 0 % 06/04/19 07:00 Blast Cells % 0 % 06/04/19 07:00 Nucleated RBC % Not Reportable 06/04/19 07:00 Seg Neutrophils # Ingredient Scaler Helper 06/03/19 11:51 Seg Neutrophils # Man 9.6 K/mm3 (1.8-7.7) H 06/04/19 07:00 Band Neutrophils # 2.7 K/mm3 06/04/19 07:00 Lymphocytes # (Manual) 0.8 K/mm3 (1.2-5.4) L 06/04/19 07:00 Abs React Lymphs (Man) 0.0 K/mm3 06/04/19 07:00 Monocytes # (Manual) 0.3 K/mm3 (0.0-0.8) 06/04/19 07:00 Eosinophils # (Manual) 0.0 K/mm3 (0.0-0.4) 06/04/19 07:00 Basophils # (Manual) 0.0 K/mm3 (0.0-0.1) 06/04/19 07:00 Metamyelocytes # 0.0 K/mm3 06/04/19 07:00 Myelocytes # 0.0 K/mm3 06/04/19 07:00 Promyelocytes # 0.0 K/mm3 06/04/19 07:00 Blast Cells # 0.0 K/mm3 06/04/19 07:00 WBC Morphology Not Reportable 06/04/19 07:00 Hypersegmented Neuts Not Reportable 06/04/19 07:00 Hyposegmented Neuts Not Reportable 06/04/19 07:00 Hypogranular Neuts Not Reportable 06/04/19 07:00 Smudge Cells Not Reportable 06/04/19 07:00 Toxic Granulation Not Reportable 06/04/19 07:00 Toxic Vacuolation Not Reportable 06/04/19 07:00 Dohle Bodies Not Reportable 06/04/19 07:00 Pelger-Huet Anomaly Not Reportable 06/04/19 07:00 Stephanie Rods Not Reportable 06/04/19 07:00 Platelet Estimate Consistent w auto 06/04/19 07:00 Clumped Platelets Not Reportable 06/04/19 07:00 Plt Clumps, EDTA Not Reportable 06/04/19 07:00 Large Platelets Not Reportable 06/04/19 07:00 Giant Platelets Not Reportable 06/04/19 07:00 Platelet Satelliting Not Reportable 06/04/19 07:00 Plt Morphology Comment Not Reportable 06/04/19 07:00 RBC Morphology Normal 06/04/19 07:00 Dimorphic RBCs Not Reportable 06/04/19 07:00 Polychromasia Not Reportable 06/04/19 07:00 Hypochromasia Not Reportable 06/04/19 07:00 Poikilocytosis Not Reportable 06/04/19 07:00 Anisocytosis Not Reportable 06/04/19 07:00 Microcytosis Not Reportable 06/04/19 07:00 Macrocytosis Not Reportable 06/04/19 07:00 Spherocytes Not Reportable 06/04/19 07:00 Pappenheimer Bodies Not Reportable 06/04/19 07:00 Sickle Cells Not Reportable 06/04/19 07:00 Target Cells Not Reportable 06/04/19 07:00 Tear Drop Cells Not Reportable 06/04/19 07:00 Ovalocytes Not Reportable 06/04/19 07:00 Helmet Cells Not Reportable 06/04/19 07:00 [place] Bodies Not Reportable 06/04/19 07:00 [place] Rings Not Reportable 06/04/19 07:00 Jessica Cells Not Reportable 06/04/19 07:00 Bite Cells Not Reportable 06/04/19 07:00 Crenated Cell Not Reportable 06/04/19 07:00 Elliptocytes Not Reportable 06/04/19 07:00 Acanthocytes (Spur) Not Reportable 06/04/19 07:00 Rouleaux Not Reportable 06/04/19 07:00 Hemoglobin C Crystals Not Reportable 06/04/19 07:00 Schistocytes Not Reportable 06/04/19 07:00 Malaria parasites Not Reportable 06/04/19 07:00 Elias Bodies Not Reportable 06/04/19 07:00 Hem Pathologist Commnt No 06/04/19 07:00 D-Dimer 1279.22 ng/mlDDU (0-234) H 06/06/19 04:37 ABG pH 7.504 pH Units (7.350-7.450) H 06/08/19 03:45 ABG pCO2 42.0 mm Hg 06/08/19 03:45 ABG pO2 54.2 mm Hg (80.0-90.0) L 06/08/19 03:45 ABG HCO3 32.3 mmol/L (20.0-26.0) H 06/08/19 03:45 ABG O2 Saturation 93.7 % (95.0-99.0) L 06/08/19 03:45 ABG O2 Content 18.8 (0.0-44) 06/08/19 03:45 ABG Base Excess 8.4 mmol/L (-2.0-3.0) H 06/08/19 03:45 ABG Hemoglobin 14.5 gm/dl (12.0-16.0) 06/08/19 03:45 ABG Carboxyhemoglobin 1.1 % (0.0-5.0) 06/08/19 03:45 ABG Methemoglobin 0.4 % (0.0-1.5) 06/08/19 03:45 VBG pH 6.901 (7.320-7.420) L* 06/03/19 11:51 Oxyhemoglobin 92.2 % (95.0-99.0) L 06/08/19 03:45 FiO2 40 % 06/08/19 03:45 Sodium 161 mmol/L (137-145) H* 06/07/19 15:31 Potassium 3.1 mmol/L (3.6-5.0) L 06/07/19 15:31 Chloride 117.7 mmol/L (98-107) H 06/07/19 15:31 Carbon Dioxide 27 mmol/L (22-30) 06/07/19 15:31 Anion Gap 19 mmol/L 06/07/19 15:31 BUN 22 mg/dL (7-17) H 06/07/19 15:31 Creatinine 0.5 mg/dL (0.7-1.2) L 06/07/19 15:31 Estimated GFR > 60 ml/min 06/07/19 15:31 BUN/Creatinine Ratio 44 % 06/07/19 15:31 Glucose 274 mg/dL (65-100) H 06/07/19 15:31 POC Glucose 291 (70-105) H 06/08/19 05:02 Hemoglobin A1c 9.6 % (4-6) H 06/03/19 16:03 Lactic Acid 1.90 mmol/L (0.7-2.0) 06/03/19 21:32 Calcium 9.4 mg/dL (8.4-10.2) 06/07/19 15:31 Phosphorus TNR 06/03/19 17:15 Magnesium TNR 06/03/19 17:15 Ferritin 1649.0 ng/mL (13.0-400.0) H 06/06/19 04:37 Total Bilirubin 0.40 mg/dL (0.1-1.2) 06/04/19 07:00 AST 43 units/L (5-40) H 06/04/19 07:00 ALT 22 units/L (7-56) 06/04/19 07:00 Alkaline Phosphatase 90 units/L (35-129) 06/04/19 07:00 Lactate Dehydrogenase 578 units/L (91-180) H 06/06/19 04:37 Troponin T < 0.010 ng/mL (0.00-0.029) 06/03/19 11:51 C-Reactive Protein 22.10 mg/dL (0.00-1.30) H 06/06/19 04:37 Total Protein 7.1 g/dL (6.3-8.2) 06/04/19 07:00 Albumin 2.9 g/dL (3.9-5) L 06/04/19 07:00 Albumin/Globulin Ratio 0.7 % 06/04/19 07:00 Triglycerides 373 mg/dL (2-149) H 06/07/19 04:43 Cholesterol 250 mg/dL (50-199) H 06/03/19 19:00 LDL Cholesterol Direct TNR 06/03/19 19:00 HDL Cholesterol 46 mg/dL (40-59) 06/03/19 19:00 Cholesterol/HDL Ratio 5.43 % 06/03/19 19:00 Procalcitonin 1.30 ng/mL (<0.15) 06/06/19 04:37 Urine Color Yellow (Yellow) 06/03/19 11:48 Urine Turbidity Clear (Clear) 06/03/19 11:48 Urine pH 6.0 (5.0-7.0) 06/03/19 11:48 Ur Specific [place] 1.026 (1.003-1.030) 06/03/19 11:48 Urine Protein 100 mg/dl mg/dL (Negative) 06/03/19 11:48 Urine Glucose (UA) >=500 mg/dL (Negative) 06/03/19 11:48 Urine Ketones 80 mg/dL (Negative) 06/03/19 11:48 Urine Blood Mod (Negative) 06/03/19 11:48 Urine Nitrite Neg (Negative) 06/03/19 11:48 Urine Bilirubin Neg (Negative) 06/03/19 11:48 Urine Urobilinogen < 2.0 mg/dL (<2.0) 06/03/19 11:48 Ur Leukocyte Esterase Neg (Negative) 06/03/19 11:48 Urine WBC (Auto) 1.0 /HPF (0.0-6.0) 06/03/19 11:48 Urine RBC (Auto) 2.0 /HPF (0.0-6.0) 06/03/19 11:48 Granular Casts 4 /LPF 06/03/19 11:48 Urine Mucus Few /HPF 06/03/19 11:48 Urine Osmolality 755 Mosm/kg 06/07/19 17:00 Urine Creatinine 37.4 mg/dL (0.1-20.0) H 06/03/19 11:48 Urine Microalbumin 65.1 mg/dL (0.1-34.0) H 06/03/19 11:48 Microalb/Creat Ratio 1740.6 ug/mg 06/03/19 11:48 Urine Sodium 130 mmol/L 06/07/19 17:00 Urine Chloride 172.4 mmolL (110-250) 06/07/19 17:00 Urine HCG, Qual Negative (Negative) 06/03/19 11:48 Vancomycin Trough 4.2 ug/mL (5.0-20.0) L 06/05/19 21:00 Salicylates < 0.3 mg/dL (2.8-20.0) L 06/03/19 11:51 Urine Opiates Screen Presumptive negative 06/03/19 11:48 Urine Methadone Screen Presumptive negative 06/03/19 11:48 Acetaminophen < 5.0 ug/mL (10.0-30.0) L 06/03/19 11:51 Ur Barbiturates Screen Presumptive negative 06/03/19 11:48 Ur Phencyclidine Scrn Presumptive negative 06/03/19 11:48 Ur Amphetamines Screen Presumptive negative 06/03/19 11:48 U Benzodiazepines Scrn Presumptive negative 06/03/19 11:48 Urine Cocaine Screen Presumptive negative 06/03/19 11:48 U Marijuana (THC) Screen Presumptive negative 06/03/19 11:48 Drugs of Abuse Note Disclamer 06/03/19 11:48 Plasma/Serum Alcohol < 0.01 % (0-0.07) 06/03/19 11:51 Hepatitis A IgM Ab Non-reactive (NonReactive) 06/04/19 08:19 Hep Bs Antigen Non-reactive (Negative) 06/04/19 08:19 Hep B Core IgM Ab Non-reactive (NonReactive) 06/04/19 08:19 Hepatitis C Antibody Non-reactive (NonReactive) 06/04/19 08:19 Influenza A (Rapid) Negative (Negative) 06/03/19 Unknown Influenza B (Rapid) Negative (Negative) 06/03/19 Unknown Microbiology: Microbiology 06/03/19 Unknown Peripheral/Venous Blood Culture - Preliminary NO GROWTH AFTER 4 DAYS 06/03/19 Unknown Peripheral/Venous Blood Culture - Preliminary NO GROWTH AFTER 4 DAYS Alves/IV: Voiding Method External Female Catheter IV Catheter Type [Right Hand] INT / Saline Lock IV Catheter Type [Left Hand] INT / Saline Lock IV Catheter Type [Right INT / Saline Lock Antecubital] IV Catheter Type [Left Peripheral IV Antecubital] Active Medications - Current Medications Current Medications: Generic Name Dose Route Start Last Admin Trade Name Freq PRN Reason Stop Dose Admin Albuterol 2.5 mg 06/03/19 13:57 Proventil IH Q3HRT PRN Shortness Of Breath Lipase/Protease/Amylase 1 each 06/05/19 09:[address] 10,500 Unit FEEDTUBE PRN PRN For Clogged Feeding Tube Dextrose 50 ml 06/03/19 13:57 D50w (25gm) Syringe IV Q30MIN PRN Hypoglycemia Protocol Famotidine 20 mg 06/06/19 10:00 06/07/19 22:00 Pepcid PO 20 mg BID JOSE ROBERTO Administration Heparin Sodium (Porcine) 5,000 unit 06/03/19 14:15 06/07/19 23:16 Heparin SUB-Q 5,000 unit Q12HR JOSE ROBERTO Administration Hydralazine HCl 10 mg 06/07/19 08:42 06/07/19 16:08 Apresoline IV 10 mg Q4HR PRN Administration Hypertension Hydrochlorothiazide 12.5 mg 06/07/19 10:00 06/07/19 09:31 Hctz PO 12.5 mg QDAY JOSE ROBERTO Administration Hydrophilic Ointment 1 applic 06/03/19 11:02 Vaseline Lip Therapy TP Q2HR PRN Dry Lips Propofol 1,000 mg in 100 mls @ 2.346 mls/hr 06/03/19 12:00 06/08/19 03:03 Diprivan 10 Mg/Ml IV 10 mcg/kg/min TITR JOSE ROBERTO 4.692 mls/hr Administration Protocol 5 MCG/KG/MIN Cefepime HCl 2 gm in 100 mls @ 200 mls/hr 06/03/19 22:00 06/07/19 22:14 Cefepime/Ns 2 Gm/100 Ml IV 200 mls/hr Q12HR JOSE ROBERTO Administration Protocol Metronidazole 500 mg in 100 mls @ 100 mls/hr 06/04/19 09:00 06/08/19 06:12 Flagyl 500 Mg/100 Ml IV 100 mls/hr Q8HR JOSE ROBERTO Administration Protocol Dextrose 1,000 mls @ 100 mls/hr 06/07/19 15:00 06/08/19 03:05 D5w IV 100 mls/hr DIRECT JOSE ROBERTO Administration Insulin Glargine 35 units 06/07/19 17:00 06/07/19 17:58 Lantus SUB-Q 35 units BIDDIAB JOSE ROBERTO Administration Insulin Human Regular 0 units 06/05/19 09:00 06/08/19 06:11 Humulin R SUB-Q 6 units Q6HR JOSE ROBERTO Administration Protocol Losartan Potassium 50 mg 06/07/19 10:00 06/07/19 09:31 Cozaar PO 50 mg QDAY JOSE ROBERTO Administration Multi-Ingred Cream/Lotion/Oil/Oint 1 applic 06/03/19 11:02 Artificial Tears Ophth Oint OU Q4HR PRN Dry Eye(s) Potassium Chloride 40 meq 06/08/19 08:00 Potassium Chloride FEEDTUBE 06/08/19 12:01 Q4H JOSE ROBERTO Senna 8.6 mg 06/03/19 22:00 06/07/19 22:16 Senokot PO 8.6 mg BID JOSE ROBERTO Administration Simple Syrup 15 ml 06/05/19 09:59 Simple Syrup FEEDTUBE PRN PRN Hypoglycemia Simple Syrup 30 ml 06/05/19 09:59 Simple Syrup FEEDTUBE PRN PRN Hypoglycemia Sodium Bicarbonate 325 mg 06/05/19 09:59 Sodium Bicarbonate FEEDTUBE PRN PRN For Clogged Feeding Tube Sodium Chloride 10 ml 06/03/19 22:00 06/07/19 23:15 Sodium Chloride Flush Syringe 10 Ml IV 10 ml BID JOSE ROBERTO Administration Sodium Chloride 10 ml 06/03/19 13:57 Sodium Chloride Flush Syringe 10 Ml IV PRN PRN LINE FLUSH Nutrition/Malnutrition Assess - Dietary Evaluation Nutrition/Malnutrition Findings: Nutrition Notes Start: 06/04/19 08:30 Freq: Status: Active Protocol: Document 06/05/19 09:58 LM (Rec: 06/05/19 09:59 LM [id number]) Nutrition Notes Need for Assessment generated from: MD Order Initial or Follow up Brief Note Current Diagnosis Diabetes,Sepsis,Hypertension, Respiratory Failure, Hyperlipidemia Other Pertinent Diagnosis Suspected COVID-19, Pneu, metabolic encephalopathy Current Diet NPO Labs/Tests Na 155 K 3 Subjective/Other Information MD consult for TF. Nutrition Intervention Change Diet Order: TF Nutrition Support: Vital AF 1.2 at 60 ml/hr Flush 200 ml q4h for hypernatremia Flush 100 ml q4h once hypernatremia resolves Kcal 1,728 Protein (gm) 108 Fluid (mL) 1,168 Goal #1 TF start/tolerance Follow-Up By: 06/08/19 Additional Comments F/U for TF start/tolerance
[2019-06-08] MEDS ORDERED: INSULIN GLARGINE 100 UNITS/ML SUB-Q ONE (09:00)
[2019-06-08] MEDS: POTASSIUM CHLORIDE 20 MEQ PACKET FEEDTUBE SCH ×2 (09:00→12:55)
[2019-06-08] MEDS: CEFEPIME/NS 2 GM/100 ML 2 GM/100 ML BAG IV SCH ×2 (09:37→21:42)
[2019-06-08] MEDS: FAMOTIDINE 20 MG TAB PO SCH ×2 (09:38→21:42)
[2019-06-08] MEDS: LOSARTAN 50 MG TAB PO SCH (09:38)
[2019-06-08] MEDS: HEPARIN 5,000 UNIT/1 ML VIAL SUB-Q SCH ×2 (09:38→21:42)
[2019-06-08] MEDS: SENNOSIDES 8.6 MG TAB PO SCH ×3 (09:38→21:42)
[2019-06-08] MEDS: hydroCHLOROthiazide 12.5 MG CAP PO SCH (09:39)
--- NOTE | 2019-06-08 09:40 | Progress Note ---
Assessment and Plan Sepsis secondary to pneumonia-with hypothermia Acute hypoxic respiratory failure ,orally intubated on mechanical ventilation POSITIVE COVID 19 - severe COVID pneumonia. -Transmission likely from community recent travel to [place]. - Ferritin at 1,037-->1,649-->1,319. LDH 673-->449. CRP 14-->9. Ddimer 434-->1319 DKA, treated Diabetes mellitus with uncontrolled blood sugar Acute metabolic encephalopathy, improving Pneumonia Leukocytosis Paroxysmal atrial fibrillation likely new onset Severe metabolic acidosis-improving Hypernatremia Hypokalemia Oropharyngeal dysphagia, OGT in place -Continue with MVS, Lung protective strategies, monitor airway pressures -ABG in am -VAP bundle addressed -Continue aspiration precautions, HOB>40 -Decrease D5 water to 50ml, stop once this infusion is completed. -Free water flushes- increase and monitor sodium -Continue daily assessment for readiness for SBT, SAT. Trial SBT tomorrow, she is more awake and alert - Monitor glycemic control, with target blood glucose 140-180 mg/dL while critically ill. Increase lantuus and regular scheduled insulin therapy- patient blood glucose levels persistently above 200 -Avoid hypoglycemia - Continue to wean supplemental oxygen for target O2 sats > 90% - Goal to keep Potassium 4 and Magnesium 2 to optimize respiratory muscle function -ABG and CXR in am -VTE prophylaxis on heparin, if D-dimer remains persistently elevated will change to therapeutic VTE -Stress ulcer prophylaxis- Famotidine -Continue to avoid nephrotoxins, adjust all medications for CrCL and GFR -Follow up BMP and CBC in the morning - Continue bronchodilators with pulmonary hygiene - Continue prn analgesia per CPOT score - Continue to maintain of sleep-wake cycle, avoid delirium - PT/OT/ROM exercises - Continue mobility protocol and skin assessment per protocol for pressure ulcer prevention - s/p Influenza and pneumonia vaccination -Continue COVID isolation precautions per [facility] protocol -Check serial Ferritin, LDH, D-Dimer, CRP every 48 hour -s/p hydroxychloroquine (total 5 days) Day 5 of 5 and zinc - continue other care per attending / other consultants CONDITION: CRITICAL PROGNOSIS: GUARDED CODE STATUS: FULL CODE The high probability of a clinically significant, sudden or life threatening deterioration of the [pulmonary, neurology, endocrine,] system(s) required my full and direct attention, intervention and personal management. The aggregate critical care time was [35] minutes. This time is in addition to time spent performing reported procedures but includes the following: [x] Data Review and interpretation [x] Patient assessment and monitoring of vital signs [x] Documentation [x] Medication orders and management Subjective Date of service: 06/08/19 Principal diagnosis: Ac hypoxemic resp failure; Bob. PNA; PUI CVOVID-19; DKA; Severe sepsis Interval history: Follow up for: Acute hypoxemic respiratory failure on MVS; COVID 19 pneumonia;DKA ; Acute metabolic encephalopathy; Sepsis; Fevers; SHARITA; Seen and examined. Vitals, labs, medications, chart and imaging reviewed. 06/05/2019 Resting in bed on full mechanical ventilatory support; ETT at 21 cm at the lip. Currently on AC-VC 26/450//45 On bicarbonate infusion, Propofol at 5 mcg, with restrains in place Alves catheter with good urine ouput, no fevers overnight Currently on Vancomycin , Cefepime, Flagyl. Started on Lantus insulin, Glucerna to be started this morning 12 lead EKG reveiwed- QTc 380 On day 3 of Plaquenil. Hypokalemia and hypernatremic on BMP OGT in place 06/08/2019 COVID POSITIVE ETT to MVS- at 7.5 cm, 22 cm at the lip AC-VC 20/400/40%/PEEP 6 ABG 7.50/42/54/30.3 Remains sedated on Propfol at 10mcg RASS -1, hypernatremia 161, hypokalemia 3.1 Triglycerides at 373 Currently on D50 at 100ml/hour Completed course of Plaquenil On Cefpime D#6 and Metronidazole D#5 Tolerating tube feeding; free water flushes at 300ml q4 On going fevers T max 100.6 Objective Vital Signs - 12hr 06/07/19 06/07/19 06/07/19 21:46 22:00 22:16 Temperature Pulse Rate 111 H 110 H 118 H Pulse Rate [ From Monitor] Respiratory 21 24 25 H Rate Blood Pressure 153/96 157/94 166/101 O2 Sat by Pulse 95 96 94 Oximetry 06/07/19 06/07/19 06/07/19 22:30 22:45 23:00 Temperature Pulse Rate 111 H 102 H 103 H Pulse Rate [ From Monitor] Respiratory 22 22 21 Rate Blood Pressure 156/89 145/76 116/78 O2 Sat by Pulse 95 95 95 Oximetry 06/07/19 06/07/19 06/07/19 23:15 23:30 23:45 Temperature Pulse Rate 109 H 112 H 114 H Pulse Rate [ From Monitor] Respiratory 22 20 26 H Rate Blood Pressure 157/94 162/97 167/101 O2 Sat by Pulse 96 95 95 Oximetry 06/08/19 06/08/19 06/08/19 00:00 00:15 00:30 Temperature 99.3 F Pulse Rate 112 H 113 H 112 H Pulse Rate [ 104 H From Monitor] Respiratory 26 H 25 H 24 Rate Blood Pressure 147/97 153/97 150/96 O2 Sat by Pulse 96 96 95 Oximetry 06/08/19 06/08/19 06/08/19 00:35 00:45 01:00 Temperature Pulse Rate 105 H 110 H 104 H Pulse Rate [ From Monitor] Respiratory 26 H 21 Rate Blood Pressure 158/98 158/98 143/89 O2 Sat by Pulse 94 95 95 Oximetry 06/08/19 06/08/19 06/08/19 01:15 01:30 01:45 Temperature Pulse Rate 104 H 113 H 107 H Pulse Rate [ From Monitor] Respiratory 23 24 21 Rate Blood Pressure 144/93 172/103 130/82 O2 Sat by Pulse 94 95 95 Oximetry 06/08/19 06/08/19 06/08/19 02:00 02:15 02:30 Temperature Pulse Rate 121 H 113 H 111 H Pulse Rate [ From Monitor] Respiratory 25 H 23 22 Rate Blood Pressure 159/101 167/97 149/95 O2 Sat by Pulse 94 95 95 Oximetry 06/08/19 06/08/19 06/08/19 02:45 03:00 03:15 Temperature Pulse Rate 112 H 113 H 113 H Pulse Rate [ From Monitor] Respiratory 23 24 24 Rate Blood Pressure 164/95 153/93 153/94 O2 Sat by Pulse 96 95 95 Oximetry 06/08/19 06/08/19 06/08/19 03:30 03:46 04:00 Temperature 99.6 F Pulse Rate 117 H 111 H 103 H Pulse Rate [ 104 H From Monitor] Respiratory 21 23 23 Rate Blood Pressure 159/96 122/75 131/77 O2 Sat by Pulse 95 93 94 Oximetry 06/08/19 06/08/19 06/08/19 04:15 04:30 04:45 Temperature Pulse Rate 102 H 110 H 112 H Pulse Rate [ From Monitor] Respiratory 22 24 19 Rate Blood Pressure 111/69 150/91 159/91 O2 Sat by Pulse 94 95 95 Oximetry 06/08/19 06/08/19 06/08/19 04:58 05:00 05:15 Temperature Pulse Rate 107 H 109 H 102 H Pulse Rate [ From Monitor] Respiratory 23 20 Rate Blood Pressure 159/91 149/84 128/70 O2 Sat by Pulse 96 95 96 Oximetry 06/08/19 06/08/19 06/08/19 05:30 05:45 06:00 Temperature Pulse Rate 101 H 100 H 100 H Pulse Rate [ From Monitor] Respiratory 21 22 21 Rate Blood Pressure 124/76 109/64 122/79 O2 Sat by Pulse 95 94 95 Oximetry 06/08/19 06/08/19 06/08/19 06:15 06:30 06:45 Temperature Pulse Rate 107 H 103 H 98 H Pulse Rate [ From Monitor] Respiratory 24 20 18 Rate Blood Pressure 147/84 128/81 118/72 O2 Sat by Pulse 96 96 95 Oximetry 06/08/19 06/08/19 06/08/19 07:00 07:15 07:30 Temperature Pulse Rate 95 H 98 H 101 H Pulse Rate [ From Monitor] Respiratory 18 22 20 Rate Blood Pressure 103/62 124/75 148/85 O2 Sat by Pulse 94 96 96 Oximetry 06/08/19 06/08/19 06/08/19 07:45 08:00 08:17 Temperature Pulse Rate 96 H 99 H 96 H Pulse Rate [ From Monitor] Respiratory 22 22 Rate Blood Pressure 120/81 139/82 116/69 O2 Sat by Pulse 96 96 96 Oximetry Constitutional: no acute distress, asleep, other (Atraumatic, normocephalic, no patient -ventilator dyssynchrony) Eyes: non-icteric ENT: other (OGT in place, ETT in palce) Neck: supple, no lymphadenopathy, no JVD Effort: normal Ascultation: Bilateral: clear, diminished breath sounds, rhonchi Percussion: Bilateral: not dull Cardiovascular: irregular rhythm, other (S1,S2, no murmurs) Gastrointestinal: normoactive bowel sounds, soft, non-tender, tender Integumentary: normal Extremities: no cyanosis, no edema, pulses normal, no ischemia or petechiae Neurologic: unable to assess (sedated) Psychiatric: other (sedated) CBC and BMP: 06/09/19 07:34 06/09/19 07:34 ABG, PT/INR, D-dimer: ABG ABG pH 7.504 pH Units (7.350-7.450) H 06/08/19 03:45 ABG pCO2 42.0 mm Hg 06/08/19 03:45 ABG pO2 54.2 mm Hg (80.0-90.0) L 06/08/19 03:45 ABG O2 Saturation 93.7 % (95.0-99.0) L 06/08/19 03:45 PT/INR, D-dimer D-Dimer 1279.22 ng/mlDDU (0-234) H 06/06/19 04:37 Abnormal lab findings: Abnormal Labs 06/03/19 06/03/19 06/03/19 10:59 11:15 11:48 WBC RBC Hgb Hct MCH RDW Seg Neuts % (Manual) Lymphocytes % (Manual) Monocytes % (Manual) Seg Neutrophils # Man Lymphocytes # (Manual) Monocytes # (Manual) D-Dimer ABG pH ABG pO2 ABG HCO3 ABG O2 Saturation ABG Base Excess ABG Hemoglobin VBG pH Oxyhemoglobin Sodium Potassium Chloride Carbon Dioxide BUN Creatinine Glucose POC Glucose 372 H Hemoglobin A1c Lactic Acid Calcium Phosphorus 11.70 H Magnesium 4.40 H Ferritin AST Alkaline Phosphatase Lactate Dehydrogenase C-Reactive Protein Total Protein Albumin Triglycerides Cholesterol Urine Creatinine 37.4 H Urine Microalbumin 65.1 H Vancomycin Trough Salicylates Acetaminophen 06/03/19 06/03/19 06/03/19 11:51 11:51 11:51 WBC 23.3 H RBC 6.43 H Hgb 17.7 H Hct 59.9 H* MCH RDW 17.1 H Seg Neuts % (Manual) 71.0 H Lymphocytes % (Manual) 11.0 L Monocytes % (Manual) 8.0 H Seg Neutrophils # Man 16.5 H Lymphocytes # (Manual) Monocytes # (Manual) 1.9 H D-Dimer ABG pH ABG pO2 ABG HCO3 ABG O2 Saturation ABG Base Excess ABG Hemoglobin VBG pH Oxyhemoglobin Sodium Potassium Chloride Carbon Dioxide 4 L* BUN 41 H Creatinine 1.8 H Glucose 636 H* POC Glucose Hemoglobin A1c Lactic Acid 3.20 H* Calcium 10.9 H Phosphorus Magnesium Ferritin AST 43 H Alkaline Phosphatase 147 H Lactate Dehydrogenase 673 H C-Reactive Protein 14.70 H Total Protein 8.9 H Albumin Triglycerides Cholesterol Urine Creatinine Urine Microalbumin Vancomycin Trough Salicylates Acetaminophen 06/03/19 06/03/19 06/03/19 11:51 11:51 11:51 WBC RBC Hgb Hct MCH RDW Seg Neuts % (Manual) Lymphocytes % (Manual) Monocytes % (Manual) Seg Neutrophils # Man Lymphocytes # (Manual) Monocytes # (Manual) D-Dimer ABG pH ABG pO2 ABG HCO3 ABG O2 Saturation ABG Base Excess ABG Hemoglobin VBG pH 6.901 L* Oxyhemoglobin Sodium Potassium Chloride Carbon Dioxide BUN Creatinine Glucose POC Glucose Hemoglobin A1c Lactic Acid Calcium Phosphorus Magnesium Ferritin AST Alkaline Phosphatase Lactate Dehydrogenase C-Reactive Protein Total Protein Albumin Triglycerides Cholesterol Urine Creatinine Urine Microalbumin Vancomycin Trough Salicylates < 0.3 L Acetaminophen < 5.0 L 06/03/19 06/03/19 06/03/19 11:51 11:51 12:34 WBC RBC Hgb Hct MCH RDW Seg Neuts % (Manual) Lymphocytes % (Manual) Monocytes % (Manual) Seg Neutrophils # Man Lymphocytes # (Manual) Monocytes # (Manual) D-Dimer 4311.60 H ABG pH ABG pO2 ABG HCO3 ABG O2 Saturation ABG Base Excess ABG Hemoglobin VBG pH Oxyhemoglobin Sodium Potassium Chloride Carbon Dioxide BUN Creatinine Glucose POC Glucose Hemoglobin A1c Lactic Acid 5.20 H* Calcium Phosphorus Magnesium Ferritin 1037.0 H AST Alkaline Phosphatase Lactate Dehydrogenase C-Reactive Protein Total Protein Albumin Triglycerides Cholesterol Urine Creatinine Urine Microalbumin Vancomycin Trough Salicylates Acetaminophen 06/03/19 06/03/19 06/03/19 14:30 16:03 17:00 WBC RBC Hgb Hct MCH RDW Seg Neuts % (Manual) Lymphocytes % (Manual) Monocytes % (Manual) Seg Neutrophils # Man Lymphocytes # (Manual) Monocytes # (Manual) D-Dimer ABG pH 6.880 L* ABG pO2 489.9 H ABG HCO3 7.1 L ABG O2 Saturation 99.6 H ABG Base Excess -26.1 L ABG Hemoglobin 16.2 H VBG pH Oxyhemoglobin Sodium Potassium Chloride Carbon Dioxide BUN Creatinine Glucose POC Glucose 335 H Hemoglobin A1c 9.6 H Lactic Acid Calcium Phosphorus Magnesium Ferritin AST Alkaline Phosphatase Lactate Dehydrogenase C-Reactive Protein Total Protein Albumin Triglycerides Cholesterol Urine Creatinine Urine Microalbumin Vancomycin Trough Salicylates Acetaminophen 06/03/19 06/03/19 06/03/19 18:14 18:24 19:00 WBC RBC Hgb Hct MCH RDW Seg Neuts % (Manual) Lymphocytes % (Manual) Monocytes % (Manual) Seg Neutrophils # Man Lymphocytes # (Manual) Monocytes # (Manual) D-Dimer ABG pH 7.057 L* ABG pO2 97.2 H ABG HCO3 5.5 L ABG O2 Saturation ABG Base Excess -23.0 L ABG Hemoglobin 18.1 H VBG pH Oxyhemoglobin 94.4 L Sodium Potassium Chloride Carbon Dioxide BUN Creatinine Glucose POC Glucose 285 H Hemoglobin A1c Lactic Acid 3.40 H* Calcium Phosphorus Magnesium Ferritin AST Alkaline Phosphatase Lactate Dehydrogenase C-Reactive Protein Total Protein Albumin Triglycerides Cholesterol Urine Creatinine Urine Microalbumin Vancomycin Trough Salicylates Acetaminophen 06/03/19 06/03/19 06/03/19 19:00 19:00 19:52 WBC RBC Hgb Hct MCH RDW Seg Neuts % (Manual) Lymphocytes % (Manual) Monocytes % (Manual) Seg Neutrophils # Man Lymphocytes # (Manual) Monocytes # (Manual) D-Dimer ABG pH ABG pO2 ABG HCO3 ABG O2 Saturation ABG Base Excess ABG Hemoglobin VBG pH Oxyhemoglobin Sodium 151 H Potassium Chloride 120.8 H Carbon Dioxide 6 L* BUN 33 H Creatinine 1.4 H Glucose 339 H POC Glucose 316 H Hemoglobin A1c Lactic Acid Calcium Phosphorus Magnesium Ferritin AST 47 H Alkaline Phosphatase 130 H Lactate Dehydrogenase C-Reactive Protein Total Protein Albumin 3.7 L Triglycerides 424 H Cholesterol 250 H Urine Creatinine Urine Microalbumin Vancomycin Trough Salicylates Acetaminophen 06/03/19 06/03/19 06/03/19 20:21 20:21 21:01 WBC RBC Hgb Hct MCH RDW Seg Neuts % (Manual) Lymphocytes % (Manual) Monocytes % (Manual) Seg Neutrophils # Man Lymphocytes # (Manual) Monocytes # (Manual) D-Dimer ABG pH ABG pO2 ABG HCO3 ABG O2 Saturation ABG Base Excess ABG Hemoglobin VBG pH Oxyhemoglobin Sodium 153 H Potassium Chloride 121.8 H Carbon Dioxide 6 L* BUN 34 H Creatinine 1.3 H Glucose 324 H POC Glucose 245 H Hemoglobin A1c Lactic Acid 3.10 H* Calcium Phosphorus Magnesium Ferritin AST Alkaline Phosphatase Lactate Dehydrogenase C-Reactive Protein Total Protein Albumin Triglycerides Cholesterol Urine Creatinine Urine Microalbumin Vancomycin Trough Salicylates Acetaminophen 06/03/19 06/03/19 06/03/19 21:25 21:32 22:42 WBC RBC Hgb Hct MCH RDW Seg Neuts % (Manual) Lymphocytes % (Manual) Monocytes % (Manual) Seg Neutrophils # Man Lymphocytes # (Manual) Monocytes # (Manual) D-Dimer ABG pH 7.172 L* ABG pO2 107.2 H ABG HCO3 5.2 L ABG O2 Saturation ABG Base Excess -20.5 L ABG Hemoglobin 17.3 H VBG pH Oxyhemoglobin Sodium 155 H Potassium 2.6 L* D Chloride 130.1 H Carbon Dioxide 5 L* BUN 24 H Creatinine Glucose 212 H POC Glucose 225 H Hemoglobin A1c Lactic Acid Calcium 5.8 L* D Phosphorus Magnesium Ferritin AST Alkaline Phosphatase Lactate Dehydrogenase C-Reactive Protein Total Protein Albumin Triglycerides Cholesterol Urine Creatinine Urine Microalbumin Vancomycin Trough Salicylates Acetaminophen 06/03/19 06/04/19 06/04/19 23:32 00:04 01:25 WBC RBC Hgb Hct MCH RDW Seg Neuts % (Manual) Lymphocytes % (Manual) Monocytes % (Manual) Seg Neutrophils # Man Lymphocytes # (Manual) Monocytes # (Manual) D-Dimer ABG pH ABG pO2 ABG HCO3 ABG O2 Saturation ABG Base Excess ABG Hemoglobin VBG pH Oxyhemoglobin Sodium 151 H 151 H Potassium 1.5 L* D Chloride 139.0 H 124.7 H Carbon Dioxide 3 L* 9 L* BUN 31 H Creatinine 0.2 L D Glucose 117 H 241 H POC Glucose 231 H Hemoglobin A1c Lactic Acid Calcium 3.1 L* D Phosphorus Magnesium Ferritin AST Alkaline Phosphatase Lactate Dehydrogenase C-Reactive Protein Total Protein Albumin Triglycerides Cholesterol Urine Creatinine Urine Microalbumin Vancomycin Trough Salicylates Acetaminophen 06/04/19 06/04/19 06/04/19 01:34 02:45 03:21 WBC RBC Hgb Hct MCH RDW Seg Neuts % (Manual) Lymphocytes % (Manual) Monocytes % (Manual) Seg Neutrophils # Man Lymphocytes # (Manual) Monocytes # (Manual) D-Dimer ABG pH ABG pO2 ABG HCO3 ABG O2 Saturation ABG Base Excess ABG Hemoglobin VBG pH Oxyhemoglobin Sodium Potassium Chloride Carbon Dioxide BUN Creatinine Glucose POC Glucose 194 H 189 H 183 H Hemoglobin A1c Lactic Acid Calcium Phosphorus Magnesium Ferritin AST Alkaline Phosphatase Lactate Dehydrogenase C-Reactive Protein Total Protein Albumin Triglycerides Cholesterol Urine Creatinine Urine Microalbumin Vancomycin Trough Salicylates Acetaminophen 06/04/19 06/04/19 06/04/19 04:50 05:07 06:27 WBC RBC Hgb Hct MCH RDW Seg Neuts % (Manual) Lymphocytes % (Manual) Monocytes % (Manual) Seg Neutrophils # Man Lymphocytes # (Manual) Monocytes # (Manual) D-Dimer ABG pH ABG pO2 76.5 L ABG HCO3 12.9 L ABG O2 Saturation ABG Base Excess -9.0 L ABG Hemoglobin VBG pH Oxyhemoglobin Sodium Potassium Chloride Carbon Dioxide BUN Creatinine Glucose POC Glucose 200 H 164 H Hemoglobin A1c Lactic Acid Calcium Phosphorus Magnesium Ferritin AST Alkaline Phosphatase Lactate Dehydrogenase C-Reactive Protein Total Protein Albumin Triglycerides Cholesterol Urine Creatinine Urine Microalbumin Vancomycin Trough Salicylates Acetaminophen 06/04/19 06/04/19 06/04/19 07:00 07:00 07:00 WBC 13.4 H RBC 5.54 H Hgb 15.3 H Hct 46.1 H D MCH RDW Seg Neuts % (Manual) 72.0 H Lymphocytes % (Manual) 6.0 L Monocytes % (Manual) Seg Neutrophils # Man 9.6 H Lymphocytes # (Manual) 0.8 L Monocytes # (Manual) D-Dimer ABG pH ABG pO2 ABG HCO3 ABG O2 Saturation ABG Base Excess ABG Hemoglobin VBG pH Oxyhemoglobin Sodium 158 H 156 H Potassium 2.7 L* D 2.6 L* Chloride 124.3 H 123.5 H Carbon Dioxide 11 L 11 L BUN 25 H 26 H Creatinine Glucose 192 H 190 H POC Glucose Hemoglobin A1c Lactic Acid Calcium Phosphorus Magnesium Ferritin AST 43 H Alkaline Phosphatase Lactate Dehydrogenase 590 H C-Reactive Protein 22.70 H Total Protein Albumin 2.9 L Triglycerides Cholesterol Urine Creatinine Urine Microalbumin Vancomycin Trough Salicylates Acetaminophen 06/04/19 06/04/19 06/04/19 07:00 07:00 07:14 WBC RBC Hgb Hct MCH RDW Seg Neuts % (Manual) Lymphocytes % (Manual) Monocytes % (Manual) Seg Neutrophils # Man Lymphocytes # (Manual) Monocytes # (Manual) D-Dimer 2050.33 H ABG pH ABG pO2 ABG HCO3 ABG O2 Saturation ABG Base Excess ABG Hemoglobin VBG pH Oxyhemoglobin Sodium Potassium Chloride Carbon Dioxide BUN Creatinine Glucose POC Glucose 176 H Hemoglobin A1c Lactic Acid Calcium Phosphorus Magnesium Ferritin 941.3 H AST Alkaline Phosphatase Lactate Dehydrogenase C-Reactive Protein Total Protein Albumin Triglycerides Cholesterol Urine Creatinine Urine Microalbumin Vancomycin Trough Salicylates Acetaminophen 06/04/19 06/04/19 06/04/19 09:55 11:38 12:19 WBC RBC Hgb Hct MCH RDW Seg Neuts % (Manual) Lymphocytes % (Manual) Monocytes % (Manual) Seg Neutrophils # Man Lymphocytes # (Manual) Monocytes # (Manual) D-Dimer ABG pH ABG pO2 ABG HCO3 ABG O2 Saturation ABG Base Excess ABG Hemoglobin VBG pH Oxyhemoglobin Sodium Potassium Chloride Carbon Dioxide BUN Creatinine Glucose POC Glucose 184 H 145 H 144 H Hemoglobin A1c Lactic Acid Calcium Phosphorus Magnesium Ferritin AST Alkaline Phosphatase Lactate Dehydrogenase C-Reactive Protein Total Protein Albumin Triglycerides Cholesterol Urine Creatinine Urine Microalbumin Vancomycin Trough Salicylates Acetaminophen 06/04/19 06/04/19 06/04/19 13:35 14:29 15:06 WBC RBC Hgb Hct MCH RDW Seg Neuts % (Manual) Lymphocytes % (Manual) Monocytes % (Manual) Seg Neutrophils # Man Lymphocytes # (Manual) Monocytes # (Manual) D-Dimer ABG pH ABG pO2 ABG HCO3 ABG O2 Saturation ABG Base Excess ABG Hemoglobin VBG pH Oxyhemoglobin Sodium 157 H Potassium 2.4 L* Chloride 121.4 H Carbon Dioxide 20 L D BUN 21 H Creatinine Glucose 176 H POC Glucose 151 H 142 H Hemoglobin A1c Lactic Acid Calcium Phosphorus Magnesium Ferritin AST Alkaline Phosphatase Lactate Dehydrogenase C-Reactive Protein Total Protein Albumin Triglycerides Cholesterol Urine Creatinine Urine Microalbumin Vancomycin Trough Salicylates Acetaminophen 06/04/19 06/04/19 06/04/19 17:14 17:51 21:45 WBC RBC Hgb Hct MCH RDW Seg Neuts % (Manual) Lymphocytes % (Manual) Monocytes % (Manual) Seg Neutrophils # Man Lymphocytes # (Manual) Monocytes # (Manual) D-Dimer ABG pH ABG pO2 ABG HCO3 ABG O2 Saturation ABG Base Excess ABG Hemoglobin VBG pH Oxyhemoglobin Sodium Potassium Chloride Carbon Dioxide BUN Creatinine Glucose POC Glucose 200 H 159 H 143 H Hemoglobin A1c Lactic Acid Calcium Phosphorus Magnesium Ferritin AST Alkaline Phosphatase Lactate Dehydrogenase C-Reactive Protein Total Protein Albumin Triglycerides Cholesterol Urine Creatinine Urine Microalbumin Vancomycin Trough Salicylates Acetaminophen 06/04/19 06/04/19 06/04/19 22:20 22:21 23:27 WBC RBC Hgb Hct MCH RDW Seg Neuts % (Manual) Lymphocytes % (Manual) Monocytes % (Manual) Seg Neutrophils # Man Lymphocytes # (Manual) Monocytes # (Manual) D-Dimer ABG pH 7.572 H ABG pO2 58.5 L ABG HCO3 ABG O2 Saturation ABG Base Excess 3.5 H ABG Hemoglobin 20.0 H VBG pH Oxyhemoglobin 94.6 L Sodium Potassium Chloride Carbon Dioxide BUN Creatinine Glucose POC Glucose 154 H 147 H Hemoglobin A1c Lactic Acid Calcium Phosphorus Magnesium Ferritin AST Alkaline Phosphatase Lactate Dehydrogenase C-Reactive Protein Total Protein Albumin Triglycerides Cholesterol Urine Creatinine Urine Microalbumin Vancomycin Trough Salicylates Acetaminophen 06/05/19 06/05/19 06/05/19 00:27 01:16 02:20 WBC RBC Hgb Hct MCH RDW Seg Neuts % (Manual) Lymphocytes % (Manual) Monocytes % (Manual) Seg Neutrophils # Man Lymphocytes # (Manual) Monocytes # (Manual) D-Dimer ABG pH ABG pO2 ABG HCO3 ABG O2 Saturation ABG Base Excess ABG Hemoglobin VBG pH Oxyhemoglobin Sodium Potassium Chloride Carbon Dioxide BUN Creatinine Glucose POC Glucose 124 H 126 H 156 H Hemoglobin A1c Lactic Acid Calcium Phosphorus Magnesium Ferritin AST Alkaline Phosphatase Lactate Dehydrogenase C-Reactive Protein Total Protein Albumin Triglycerides Cholesterol Urine Creatinine Urine Microalbumin Vancomycin Trough Salicylates Acetaminophen 06/05/19 06/05/19 06/05/19 03:44 03:59 04:52 WBC RBC Hgb Hct MCH RDW Seg Neuts % (Manual) Lymphocytes % (Manual) Monocytes % (Manual) Seg Neutrophils # Man Lymphocytes # (Manual) Monocytes # (Manual) D-Dimer ABG pH ABG pO2 ABG HCO3 ABG O2 Saturation ABG Base Excess ABG Hemoglobin VBG pH Oxyhemoglobin Sodium 155 H Potassium 3.0 L D Chloride 114.7 H Carbon Dioxide BUN Creatinine 0.6 L Glucose 136 H POC Glucose 143 H 141 H Hemoglobin A1c Lactic Acid Calcium Phosphorus Magnesium Ferritin AST Alkaline Phosphatase Lactate Dehydrogenase C-Reactive Protein Total Protein Albumin Triglycerides Cholesterol Urine Creatinine Urine Microalbumin Vancomycin Trough Salicylates Acetaminophen 06/05/19 06/05/19 06/05/19 05:00 05:54 07:01 WBC RBC Hgb Hct MCH RDW Seg Neuts % (Manual) Lymphocytes % (Manual) Monocytes % (Manual) Seg Neutrophils # Man Lymphocytes # (Manual) Monocytes # (Manual) D-Dimer ABG pH 7.621 H* ABG pO2 54.3 L ABG HCO3 29.8 H ABG O2 Saturation ABG Base Excess 8.8 H ABG Hemoglobin VBG pH Oxyhemoglobin Sodium Potassium Chloride Carbon Dioxide BUN Creatinine Glucose POC Glucose 155 H 145 H Hemoglobin A1c Lactic Acid Calcium Phosphorus Magnesium Ferritin AST Alkaline Phosphatase Lactate Dehydrogenase C-Reactive Protein Total Protein Albumin Triglycerides Cholesterol Urine Creatinine Urine Microalbumin Vancomycin Trough Salicylates Acetaminophen 06/05/19 06/05/19 06/05/19 12:13 18:23 21:00 WBC RBC Hgb Hct MCH RDW Seg Neuts % (Manual) Lymphocytes % (Manual) Monocytes % (Manual) Seg Neutrophils # Man Lymphocytes # (Manual) Monocytes # (Manual) D-Dimer ABG pH ABG pO2 ABG HCO3 ABG O2 Saturation ABG Base Excess ABG Hemoglobin VBG pH Oxyhemoglobin Sodium Potassium Chloride Carbon Dioxide BUN Creatinine Glucose POC Glucose 202 H 257 H Hemoglobin A1c Lactic Acid Calcium Phosphorus Magnesium Ferritin AST Alkaline Phosphatase Lactate Dehydrogenase C-Reactive Protein Total Protein Albumin Triglycerides Cholesterol Urine Creatinine Urine Microalbumin Vancomycin Trough 4.2 L Salicylates Acetaminophen 06/05/19 06/06/19 06/06/19 23:55 04:16 04:37 WBC RBC Hgb Hct MCH RDW Seg Neuts % (Manual) Lymphocytes % (Manual) Monocytes % (Manual) Seg Neutrophils # Man Lymphocytes # (Manual) Monocytes # (Manual) D-Dimer 1279.22 H ABG pH 7.600 H ABG pO2 62.4 L ABG HCO3 28.0 H ABG O2 Saturation ABG Base Excess 6.6 H ABG Hemoglobin 10.4 L VBG pH Oxyhemoglobin Sodium Potassium Chloride Carbon Dioxide BUN Creatinine Glucose POC Glucose 267 H Hemoglobin A1c Lactic Acid Calcium Phosphorus Magnesium Ferritin AST Alkaline Phosphatase Lactate Dehydrogenase C-Reactive Protein Total Protein Albumin Triglycerides Cholesterol Urine Creatinine Urine Microalbumin Vancomycin Trough Salicylates Acetaminophen 06/06/19 06/06/19 06/06/19 04:37 04:37 04:37 WBC 12.2 H RBC 5.10 H Hgb Hct MCH 27 L RDW Seg Neuts % (Manual) Lymphocytes % (Manual) Monocytes % (Manual) Seg Neutrophils # Man Lymphocytes # (Manual) Monocytes # (Manual) D-Dimer ABG pH ABG pO2 ABG HCO3 ABG O2 Saturation ABG Base Excess ABG Hemoglobin VBG pH Oxyhemoglobin Sodium 156 H Potassium 3.4 L Chloride 112.9 H Carbon Dioxide BUN 21 H Creatinine 0.6 L Glucose 332 H POC Glucose Hemoglobin A1c Lactic Acid Calcium Phosphorus Magnesium Ferritin 1649.0 H AST Alkaline Phosphatase Lactate Dehydrogenase 578 H C-Reactive Protein 22.10 H Total Protein Albumin Triglycerides Cholesterol Urine Creatinine Urine Microalbumin Vancomycin Trough Salicylates Acetaminophen 06/06/19 06/06/19 06/06/19 05:45 11:55 12:21 WBC RBC Hgb Hct MCH RDW Seg Neuts % (Manual) Lymphocytes % (Manual) Monocytes % (Manual) Seg Neutrophils # Man Lymphocytes # (Manual) Monocytes # (Manual) D-Dimer ABG pH 7.511 H ABG pO2 123.0 H ABG HCO3 29.7 H ABG O2 Saturation ABG Base Excess 6.4 H ABG Hemoglobin VBG pH Oxyhemoglobin Sodium Potassium Chloride Carbon Dioxide BUN Creatinine Glucose POC Glucose 303 H 281 H Hemoglobin A1c Lactic Acid Calcium Phosphorus Magnesium Ferritin AST Alkaline Phosphatase Lactate Dehydrogenase C-Reactive Protein Total Protein Albumin Triglycerides Cholesterol Urine Creatinine Urine Microalbumin Vancomycin Trough Salicylates Acetaminophen 06/06/19 06/07/19 06/07/19 17:06 00:25 04:39 WBC RBC Hgb Hct MCH RDW Seg Neuts % (Manual) Lymphocytes % (Manual) Monocytes % (Manual) Seg Neutrophils # Man Lymphocytes # (Manual) Monocytes # (Manual) D-Dimer ABG pH 7.507 H ABG pO2 46.4 L ABG HCO3 32.6 H ABG O2 Saturation 90.6 L ABG Base Excess 8.6 H ABG Hemoglobin VBG pH Oxyhemoglobin 89.2 L Sodium Potassium Chloride Carbon Dioxide BUN Creatinine Glucose POC Glucose 251 H 225 H Hemoglobin A1c Lactic Acid Calcium Phosphorus Magnesium Ferritin AST Alkaline Phosphatase Lactate Dehydrogenase C-Reactive Protein Total Protein Albumin Triglycerides Cholesterol Urine Creatinine Urine Microalbumin Vancomycin Trough Salicylates Acetaminophen 06/07/19 06/07/19 06/07/19 04:43 04:43 04:43 WBC 13.6 H RBC 5.14 H Hgb Hct 43.4 H MCH 27 L RDW Seg Neuts % (Manual) Lymphocytes % (Manual) Monocytes % (Manual) Seg Neutrophils # Man Lymphocytes # (Manual) Monocytes # (Manual) D-Dimer ABG pH ABG pO2 ABG HCO3 ABG O2 Saturation ABG Base Excess ABG Hemoglobin VBG pH Oxyhemoglobin Sodium 166 H* D Potassium 3.0 L Chloride 122.9 H Carbon Dioxide BUN 27 H Creatinine 0.5 L Glucose 265 H POC Glucose Hemoglobin A1c Lactic Acid Calcium Phosphorus Magnesium Ferritin AST Alkaline Phosphatase Lactate Dehydrogenase C-Reactive Protein Total Protein Albumin Triglycerides 373 H Cholesterol Urine Creatinine Urine Microalbumin Vancomycin Trough Salicylates Acetaminophen 06/07/19 06/07/19 06/07/19 10:12 11:39 15:31 WBC RBC Hgb Hct MCH RDW Seg Neuts % (Manual) Lymphocytes % (Manual) Monocytes % (Manual) Seg Neutrophils # Man Lymphocytes # (Manual) Monocytes # (Manual) D-Dimer ABG pH ABG pO2 ABG HCO3 ABG O2 Saturation ABG Base Excess ABG Hemoglobin VBG pH Oxyhemoglobin Sodium 163 H* 161 H* Potassium 3.1 L Chloride 117.7 H Carbon Dioxide BUN 22 H Creatinine 0.5 L Glucose 274 H POC Glucose 218 H Hemoglobin A1c Lactic Acid Calcium Phosphorus Magnesium Ferritin AST Alkaline Phosphatase Lactate Dehydrogenase C-Reactive Protein Total Protein Albumin Triglycerides Cholesterol Urine Creatinine Urine Microalbumin Vancomycin Trough Salicylates Acetaminophen 06/07/19 06/08/19 06/08/19 17:16 00:04 03:45 WBC RBC Hgb Hct MCH RDW Seg Neuts % (Manual) Lymphocytes % (Manual) Monocytes % (Manual) Seg Neutrophils # Man Lymphocytes # (Manual) Monocytes # (Manual) D-Dimer ABG pH 7.504 H ABG pO2 54.2 L ABG HCO3 32.3 H ABG O2 Saturation 93.7 L ABG Base Excess 8.4 H ABG Hemoglobin VBG pH Oxyhemoglobin 92.2 L Sodium Potassium Chloride Carbon Dioxide BUN Creatinine Glucose POC Glucose 284 H 283 H Hemoglobin A1c Lactic Acid Calcium Phosphorus Magnesium Ferritin AST Alkaline Phosphatase Lactate Dehydrogenase C-Reactive Protein Total Protein Albumin Triglycerides Cholesterol Urine Creatinine Urine Microalbumin Vancomycin Trough Salicylates Acetaminophen 06/08/19 05:02 WBC RBC Hgb Hct MCH RDW Seg Neuts % (Manual) Lymphocytes % (Manual) Monocytes % (Manual) Seg Neutrophils # Man Lymphocytes # (Manual) Monocytes # (Manual) D-Dimer ABG pH ABG pO2 ABG HCO3 ABG O2 Saturation ABG Base Excess ABG Hemoglobin VBG pH Oxyhemoglobin Sodium Potassium Chloride Carbon Dioxide BUN Creatinine Glucose POC Glucose 291 H Hemoglobin A1c Lactic Acid Calcium Phosphorus Magnesium Ferritin AST Alkaline Phosphatase Lactate Dehydrogenase C-Reactive Protein Total Protein Albumin Triglycerides Cholesterol Urine Creatinine Urine Microalbumin Vancomycin Trough Salicylates Acetaminophen Allied health notes reviewed: nursing
[2019-06-08 10:23] LABS: Hematocrit 42.3 % (30.3-42.9); Hemoglobin 13.5 gm/dl (10.1-14.3); Mean Corpuscular HGB Conc 32 % (30-34); Mean Corpuscular Volume 85 fl (79-97); Platelet Count 238 K/mm3 (140-440); Red Blood Count 4.99 M/mm3 (3.65-5.03); Red Cell Distribution Width 14.6 % (13.2-15.2)
[2019-06-08 10:48] LABS: Alanine Aminotransferase 29 units/L (7-56); Albumin 2.1 g/dL (3.9-5); BUN/Creatinine Ratio 48; Blood Urea Nitrogen 24 mg/dL (7-17); Calcium 9.3 mg/dL (8.4-10.2); Hemolysis Index 22
--- NOTE | 2019-06-08 11:39 | Consultation ---
History of Present Illness - Reason for Consult hypernatremia - History of Present Illness 48 y/o AAF with h/o DM, HTN, presented to the ED secondary to worsening fevers, shortness of breath, and cough, after recent trip to [place], who nephrology is being consulted at this time secondary to hypernatremia. Patient had worsening respiratory function that ultimately necessitated intubation, along with altered mental status. Patient was also found to be in DKA. Chest xray concerning for possible pneumonia, and based on symptoms and recent travel history, she is being checked for COVID-19. Past History Past Medical History: diabetes, hypertension, hyperlipidemia Past Surgical History: No surgical history Social history: no significant social history, lives with family, full code Family history: no significant family history Medications and Allergies Allergies Allergy/AdvReac Type Severity Reaction Status Date / Time No Known Allergies Allergy Verified 01/05/15 09:29 Home Medications Medication Instructions Recorded Confirmed Last Taken Type Albuterol INH(or & Nicu Only) 2 puff IH QID PRN 03/13/14 01/05/15 01/04/15 History [ProAir HFA Inhaler] Metformin HCl [metFORMIN ER] 500 mg PO QDAY 03/13/14 01/05/15 01/04/15 History Glimepiride [Amaryl] 1 mg PO QAM 01/05/15 01/05/15 01/04/15 History Losartan/Hydrochlorothiazide 1 tab PO QDAY 01/05/15 01/05/15 01/04/15 History [Hyzaar 50-12.5 TAB] Simvastatin [Zocor TAB] 10 mg PO QHS 01/05/15 01/05/15 01/04/15 History Pantoprazole [Protonix TAB] 40 mg PO QDAY #30 tablet 01/06/15 Unknown Rx Cyclobenzaprine [Flexeril] 10 mg PO QHS PRN #30 tablet 07/04/18 Unknown Rx Ibuprofen [Motrin] 800 mg PO Q8HR #30 tablet 07/04/18 Unknown Rx Active Meds: Active Medications Albuterol (Proventil) 2.5 mg IH Q3HRT PRN PRN Reason: Shortness Of Breath Lipase/Protease/Amylase (Carey Dr 10,500 Unit) 1 each FEEDTUBE PRN PRN PRN Reason: For Clogged Feeding Tube Dextrose (D50w (25gm) Syringe) 50 ml IV Q30MIN PRN; Protocol PRN Reason: Hypoglycemia Famotidine (Pepcid) 20 mg PO BID [facility] Last Admin: 06/08/19 09:38 Dose: 20 mg Documented by: Heparin Sodium (Porcine) (Heparin) 5,000 unit SUB-Q Q12HR JOSE ROBERTO Last Admin: 06/08/19 09:38 Dose: 5,000 unit Documented by: Hydralazine HCl (Apresoline) 10 mg IV Q4HR PRN PRN Reason: Hypertension Last Admin: 06/07/19 16:08 Dose: 10 mg Documented by: Hydrochlorothiazide (Hctz) 12.5 mg PO QDAY JOSE ROBERTO Last Admin: 06/08/19 09:39 Dose: 12.5 mg Documented by: Hydrophilic Ointment (Vaseline Lip Therapy) 1 applic TP Q2HR PRN PRN Reason: Dry Lips Propofol (Diprivan 10 Mg/Ml) 1,000 mg in 100 mls @ 2.346 mls/hr IV TITR JOSE ROBERTO; Protocol Last Admin: 06/08/19 03:03 Dose: 10 mcg/kg/min, 4.692 mls/hr Documented by: Cefepime HCl (Cefepime/Ns 2 Gm/100 Ml) 2 gm in 100 mls @ 200 mls/hr IV Q12HR JOSE ROBERTO; Protocol Last Admin: 06/08/19 09:37 Dose: 200 mls/hr Documented by: Metronidazole (Flagyl 500 Mg/100 Ml) 500 mg in 100 mls @ 100 mls/hr IV Q8HR JOSE ROBERTO; Protocol Last Admin: 06/08/19 06:12 Dose: 100 mls/hr Documented by: Dextrose (D5w) 1,000 mls @ 50 mls/hr IV DIRECT JOSE ROBERTO Last Admin: 06/08/19 03:05 Dose: 100 mls/hr Documented by: Insulin Glargine (Lantus) 40 units SUB-Q BIDDIAB [facility] Insulin Human Regular (Humulin R) 0 units SUB-Q Q6HR JOSE ROBERTO; Protocol Last Admin: 06/08/19 06:11 Dose: 6 units Documented by: Insulin Human Regular (Humulin R) 5 units SUB-Q Q6HR [facility] Losartan Potassium (Cozaar) 50 mg PO QDAY [facility] Last Admin: 06/08/19 09:38 Dose: 50 mg Documented by: Multi-Ingred Cream/Lotion/Oil/Oint (Artificial Tears Ophth Oint) 1 applic OU Q4HR PRN PRN Reason: Dry Eye(s) Potassium Chloride (Potassium Chloride) 40 meq FEEDTUBE Q4H [facility] Stop: 06/08/19 12:01 Last Admin: 06/08/19 09:00 Dose: 40 meq Documented by: Quetiapine Fumarate (Seroquel) 100 mg PO QHS [facility] Senna (Senokot) 8.6 mg PO BID [facility] Last Admin: 06/08/19 09:38 Dose: 8.6 mg Documented by: Simple Syrup (Simple Syrup) 15 ml FEEDTUBE PRN PRN PRN Reason: Hypoglycemia Simple Syrup (Simple Syrup) 30 ml FEEDTUBE PRN PRN PRN Reason: Hypoglycemia Sodium Bicarbonate (Sodium Bicarbonate) 325 mg FEEDTUBE PRN PRN PRN Reason: For Clogged Feeding Tube Sodium Chloride (Sodium Chloride Flush Syringe 10 Ml) 10 ml IV BID [facility] Last Admin: 06/08/19 09:40 Dose: 10 ml Documented by: Sodium Chloride (Sodium Chloride Flush Syringe 10 Ml) 10 ml IV PRN PRN PRN Reason: LINE FLUSH Review of Systems ROS unobtainable: due to endotracheal tube Exam - Vital Signs Vital signs: Vital Signs Pulse BP Pulse Ox 107 H 110/83 97 06/03/19 11:18 06/03/19 11:18 06/03/19 11:18 - General Appearance General appearance: obese, intubated EENT: ATNC Neck: Present: neck supple, trachea midline Respiratory: Decreased Breath Sounds Heart: regular Gastrointestinal: Present: normal Integumentary: no rash Musculoskeletal: Present: deferred Results - Lab Results 06/08/19 09:33 06/08/19 09:33 Most recent lab results ABG pH 7.504 pH Units (7.350-7.450) H 06/08/19 03:45 ABG pCO2 42.0 mm Hg 06/08/19 03:45 ABG pO2 54.2 mm Hg (80.0-90.0) L 06/08/19 03:45 ABG HCO3 32.3 mmol/L (20.0-26.0) H 06/08/19 03:45 ABG O2 Saturation 93.7 % (95.0-99.0) L 06/08/19 03:45 Calcium 9.3 mg/dL (8.4-10.2) 06/08/19 09:33 Phosphorus 2.20 mg/dL (2.5-4.5) L 06/08/19 09:33 Magnesium 2.60 mg/dL (1.7-2.3) H 06/08/19 09:33 Urine Creatinine 37.4 mg/dL (0.1-20.0) H 06/03/19 11:48 Urine Sodium 130 mmol/L 06/07/19 17:00 Assessment and Plan - Patient Problems (1) Hypernatremia Current Visit: Yes Status: Acute Plan to address problem: Likely in the setting of severe dehydration that can be commonly seen in DKA. Agree with current free water replacement. Serum sodium levels are showing steady improvement. Will continue to monitor. (2) Diabetic ketoacidosis Current Visit: Yes Status: Acute Plan to address problem: Continue current treatment pre protocol. DM management per primary attending (3) Acute encephalopathy Current Visit: Yes Status: Acute Plan to address problem: Possibly in the setting of hypernatremia and DKA. Will continue to monitor. (4) Acute respiratory failure with hypoxia Current Visit: Yes Status: Acute Plan to address problem: Management per pulmonology. (5) Suspected COVID-19 virus infection Current Visit: Yes Status: Acute Plan to address problem: Patient is being tested at this time. On appropriate Droplet and contact precautions at this time. (6) Hypertension Current Visit: No Status: Chronic Qualifiers: Hypertension type: essential hypertension Qualified Code(s): I10 - Essential (primary) hypertension Plan to address problem: Will monitor on current regimen.
[2019-06-08] MEDS: hydrALAZINE 20 MG/1 ML INJ IV PRN (14:05)
--- NOTE | 2019-06-08 16:20 | Progress Note ---
Assessment and Plan Cultures: Blood culture 06/03/2019 no growth today Urine culture 06/03/2019 no growth today Assessment: 48 years old female with history of diabetes, hypertension admitted on 06/03/2019 due to acute altered mental status and shortness of breath,t recently returned back from [place] where she went to celebrate her mother's birthday: #Severe sepsis MODS: noted low grade fever and leukocytosis up; elevated lactate and SHARITA; likely due to bilateral pneumonia +/- DKA, procal up. #Bilateral pneumonia: high suspicion for severe COVID pneumonia +/- bacterial pneumonia. Transmission likely from community recent travel to [place]. COVID test pending. Ferritin at 1,037-->1,649-->1,319. LDH 673-->449. CRP 14-->9. Ddimer 434-->1319 #Acute hypoxemic respiratory failure/ARDS: intubated FiO2 40%/p6 pO2 54 #Acute encephalopathy: Likely due to #1 and high sodium #SHARITA: Renally adjust antibiotics, resolved. #Diabetes with DKA #Hypernatremia per [facility], better Recommendations: Address code status with family, high risk mortality Continue COVID isolation precautions per [facility] protocol Follow-up COVID testing - pending Check serial Ferritin, LDH, D-Dimer, CRP every 48 hour Continue hydroxychloroquine (total 5 days) Day 5 of 5 and zinc Continue cefepime, metronidazole Daily EKG QT monitoring - stop plaqenil if QT interval >500 High risk mortality Will follow Kerrie Garcia MD Infectious Diseases [employer] [facility] ([facility]) M [phone] O [phone] Subjective Date of service: 06/08/19 Principal diagnosis: Ac hypoxemic resp failure; Bob. PNA; PUI CVOVID-19; DKA; Severe sepsis Interval history: Remains on intubated, noted isolated low grade fever 100.6, no pressors Objective - Exam Narrative Exam: Exam performed in conjunction with nursings staff due to lack of PPE General appearance: sedated intubated Eyes: limited due to lack of PPE HENT: Atraumatic; oropharynx limited due to lack of PPE Lungs: Diminished bilateral per RT CV: RRR Abdomen: limited due to lack of PPE Extremities: limited due to lack of PPE Skin: No rash. Psych: sedated Neuro: sedated - Constitutional Vitals: Vital Signs Temp Pulse Resp BP Pulse Ox 97.8 F 120 H 25 H 142/96 96 06/08/19 12:00 06/08/19 14:15 06/08/19 14:15 06/08/19 14:15 06/08/19 14:15 Temperature -Last 24 Hours Temperature 97.8 F Temperature 98.4 F Temperature 99.6 F Temperature 99.3 F Temperature 100.6 F - Labs CBC & Chem 7: 06/08/19 09:33 06/08/19 09:33 Labs: Abnormal lab results 06/07/19 06/07/19 06/08/19 Range/Units 15:31 17:16 00:04 WBC (4.5-11.0) K/mm3 MCH (28-32) pg D-Dimer (0-234) ng/mlDDU ABG pH (7.350-7.450) pH Units ABG pO2 (80.0-90.0) mm Hg ABG HCO3 (20.0-26.0) mmol/L ABG O2 Saturation (95.0-99.0) % ABG Base Excess (-2.0-3.0) mmol/L Oxyhemoglobin (95.0-99.0) % Sodium 161 H* (137-145) mmol/L Potassium (3.6-5.0) mmol/L Chloride (98-107) mmol/L BUN (7-17) mg/dL Creatinine (0.7-1.2) mg/dL Glucose (65-100) mg/dL POC Glucose 284 H 283 H (70-105) Phosphorus (2.5-4.5) mg/dL Magnesium (1.7-2.3) mg/dL Ferritin (13.0-400.0) ng/mL Alkaline Phosphatase (35-129) units/L Lactate Dehydrogenase (91-180) units/L C-Reactive Protein (0.00-1.30) mg/dL Total Protein (6.3-8.2) g/dL Albumin (3.9-5) g/dL 06/08/19 06/08/19 06/08/19 Range/Units 03:45 05:02 09:33 WBC (4.5-11.0) K/mm3 MCH (28-32) pg D-Dimer 1319.18 H (0-234) ng/mlDDU ABG pH 7.504 H (7.350-7.450) pH Units ABG pO2 54.2 L (80.0-90.0) mm Hg ABG HCO3 32.3 H (20.0-26.0) mmol/L ABG O2 Saturation 93.7 L (95.0-99.0) % ABG Base Excess 8.4 H (-2.0-3.0) mmol/L Oxyhemoglobin 92.2 L (95.0-99.0) % Sodium (137-145) mmol/L Potassium (3.6-5.0) mmol/L Chloride (98-107) mmol/L BUN (7-17) mg/dL Creatinine (0.7-1.2) mg/dL Glucose (65-100) mg/dL POC Glucose 291 H (70-105) Phosphorus (2.5-4.5) mg/dL Magnesium (1.7-2.3) mg/dL Ferritin (13.0-400.0) ng/mL Alkaline Phosphatase (35-129) units/L Lactate Dehydrogenase (91-180) units/L C-Reactive Protein (0.00-1.30) mg/dL Total Protein (6.3-8.2) g/dL Albumin (3.9-5) g/dL 06/08/19 06/08/19 06/08/19 Range/Units 09:33 09:33 09:33 WBC 16.0 H (4.5-11.0) K/mm3 MCH 27 L (28-32) pg D-Dimer (0-234) ng/mlDDU ABG pH (7.350-7.450) pH Units ABG pO2 (80.0-90.0) mm Hg ABG HCO3 (20.0-26.0) mmol/L ABG O2 Saturation (95.0-99.0) % ABG Base Excess (-2.0-3.0) mmol/L Oxyhemoglobin (95.0-99.0) % Sodium 157 H (137-145) mmol/L Potassium 3.1 L (3.6-5.0) mmol/L Chloride 116.7 H (98-107) mmol/L BUN 24 H (7-17) mg/dL Creatinine 0.5 L (0.7-1.2) mg/dL Glucose 351 H (65-100) mg/dL POC Glucose (70-105) Phosphorus 2.20 L (2.5-4.5) mg/dL Magnesium 2.60 H (1.7-2.3) mg/dL Ferritin 1274.0 H (13.0-400.0) ng/mL Alkaline Phosphatase 131 H (35-129) units/L Lactate Dehydrogenase 449 H (91-180) units/L C-Reactive Protein 9.70 H (0.00-1.30) mg/dL Total Protein 6.1 L (6.3-8.2) g/dL Albumin 2.1 L (3.9-5) g/dL
[2019-06-08] MEDS ORDERED: INSULIN GLARGINE 100 UNITS/ML SUB-Q SCH ×3 (17:00→17:34)
[2019-06-08] MEDS: QUEtiapine 100 MG TAB PO SCH (21:42)
[2019-06-08 22:23] LABS: BUN/Creatinine Ratio 48; Blood Urea Nitrogen 24 mg/dL (7-17); Calcium 9.4 mg/dL (8.4-10.2); Hemolysis Index 52
[2019-06-09] MEDS: INSULIN REGULAR, HUMAN 100 UNITS/1 ML SUB-Q SCH ×8 (00:02→18:22)
--- NOTE | 2019-06-09 03:43 | XRay Report ---
CHEST 1 VIEW INDICATION / CLINICAL INFORMATION: follow up respiratory failure. COMPARISON: 06/08/2019 FINDINGS: SUPPORT DEVICES: Stable, satisfactory device positioning. HEART / MEDIASTINUM: No significant abnormality. LUNGS / PLEURA: Inhomogeneous opacities in both lower lungs are again noted. There is slight improvem ent in the left lower lobe. No pneumothorax. ADDITIONAL FINDINGS: No significant additional findings. IMPRESSION: 1. 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 Signer Name: Ar Das MD Signed: 06/09/2019 3:39 AM Workstation Name: [id number]
[2019-06-09 05:04] LABS: ABG Base Excess 8.4 mmol/L (-2.0-3.0); ABG HCO3 32.9 mmol/L (20.0-26.0); ABG Methemoglobin 0.4 % (0.0-1.5); ABG Oxygen Saturation 96.3 % (95.0-99.0); ABG PCO2 45.1 mm Hg; ABG PH 7.48 pH Units (7.350-7.450); ABG PO2 70.9 mm Hg (80.0-90.0)
[2019-06-09] MEDS: metroNIDAZOLE/NS 500 MG/100 ML 500 MG/100 ML BAG IV SCH ×3 (05:41→21:53)
[2019-06-09 07:55] LABS: Hematocrit 40.5 % (30.3-42.9); Hemoglobin 12.9 gm/dl (10.1-14.3); Mean Corpuscular HGB Conc 32 % (30-34); Mean Corpuscular Volume 86 fl (79-97); Platelet Count 217 K/mm3 (140-440); Red Blood Count 4.74 M/mm3 (3.65-5.03); Red Cell Distribution Width 14.8 % (13.2-15.2)
[2019-06-09 08:22] LABS: BUN/Creatinine Ratio 52; Blood Urea Nitrogen 26 mg/dL (7-17); Calcium 9.4 mg/dL (8.4-10.2); Hemolysis Index 9
[2019-06-09] MEDS: POTASSIUM CHLORIDE 10 MEQ 10 MEQ/100 ML BAG IV SCH ×4 (08:52→14:25)
[2019-06-09] MEDS ORDERED: INSULIN GLARGINE 100 UNITS/ML SUB-Q ONE (10:00)
[2019-06-09] MEDS: hydroCHLOROthiazide 12.5 MG CAP PO SCH (10:12)
[2019-06-09] MEDS: LOSARTAN 50 MG TAB PO SCH (10:12)
[2019-06-09] MEDS: SENNOSIDES 8.6 MG TAB PO SCH ×2 (10:12→21:52)
[2019-06-09] MEDS: FAMOTIDINE 20 MG TAB PO SCH ×2 (10:12→21:52)
[2019-06-09] MEDS: HEPARIN 5,000 UNIT/1 ML VIAL SUB-Q SCH ×2 (10:13→21:52)
[2019-06-09] MEDS: CEFEPIME/NS 2 GM/100 ML 2 GM/100 ML BAG IV SCH (10:13)
[2019-06-09] MEDS ORDERED: fentaNYL 100 MCG/2 ML INJ IV PRN (11:30)
[2019-06-09] MEDS: POTASSIUM CHLORIDE 20 MEQ PACKET FEEDTUBE SCH ×2 (12:20→16:35)
--- NOTE | 2019-06-09 14:51 | Progress Note ---
Assessment and Plan Sepsis secondary to pneumonia-with hypothermia Acute hypoxic respiratory failure ,orally intubated on mechanical ventilation POSITIVE COVID 19 - severe COVID pneumonia. -Transmission likely from community recent travel to [place]. - Ferritin at 1,037-->1,649-->1,319. LDH 673-->449. CRP 14-->9. Ddimer 434-->1319 DKA, treated Diabetes mellitus with uncontrolled blood sugar Acute metabolic encephalopathy, improving Pneumonia Leukocytosis Paroxysmal atrial fibrillation likely new onset Severe metabolic acidosis-improving Hypernatremia Hypokalemia Oropharyngeal dysphagia, OGT in place Decrease PEEP to 6, Rate to 14. ABG in the am and start SBTs in am Trial SBT tomorrow, she is more awake and alert Monitor glycemic control, with target blood glucose 140-180 mg/dL while critically ill. Increase lantus and regular scheduled insulin therapy- patient blood glucose levels persistently above 200 Avoid hypoglycemia Free water flushes- increased to 400ml q4 and monitor sodium levels ( currently 152) Replace potassium Stop propofol, increasing triglycerides, start fentanyl IV prn dosing Complete antibiotics ( Cefepime and Metronidazole) Continue enteric nutritional support at goal Continue all other care as documented below -Continue with MVS, Lung protective strategies, monitor airway pressures -ABG in am -VAP bundle addressed -Continue aspiration precautions, HOB>40 -Continue daily assessment for readiness for SBT - Continue to wean supplemental oxygen for target O2 sats > 90% - Goal to keep Potassium 4 and Magnesium 2 to optimize respiratory muscle function -ABG and CXR in am -VTE prophylaxis on heparin -Stress ulcer prophylaxis- Famotidine -Continue to avoid nephrotoxins, adjust all medications for CrCL and GFR -Follow up BMP and CBC in the morning - Continue bronchodilators with pulmonary hygiene - Continue prn analgesia per CPOT score - Continue to maintain of sleep-wake cycle, avoid delirium - PT/OT/ROM exercises - Continue mobility protocol and skin assessment per protocol for pressure ulcer prevention - s/p Influenza and pneumonia vaccination -Continue COVID isolation precautions per [facility] protocol -Check serial Ferritin, LDH, D-Dimer, CRP per [facility] protocol -s/p hydroxychloroquine (total 5 days) Day 5 of 5 and zinc s/p Acterma - continue other care per attending / other consultants CONDITION: CRITICAL PROGNOSIS: GUARDED CODE STATUS: FULL CODE The high probability of a clinically significant, sudden or life threatening deterioration of the [pulmonary, neurology, endocrine,] system(s) required my full and direct attention, intervention and personal management. The aggregate critical care time was [35] minutes. This time is in addition to time spent performing reported procedures but includes the following: [x] Data Review and interpretation [x] Patient assessment and monitoring of vital signs [x] Documentation [x] Medication orders and management Subjective Date of service: 06/09/19 Principal diagnosis: Ac hypoxemic resp failure; Bob. PNA; PUI CVOVID-19; DKA; Severe sepsis Interval history: Follow up for: Acute hypoxemic respiratory failure on MVS; COVID 19 pneumonia;DKA ; Acute metabolic encephalopathy; Sepsis; Fevers; SHARITA; 06/05/2019 Resting in bed on full mechanical ventilatory support; ETT at 21 cm at the lip. Currently on AC-VC 26/450/6/45 On bicarbonate infusion, Propofol at 5 mcg, with restrains in place Alves catheter with good urine ouput, no fevers overnight Currently on Vancomycin , Cefepime, Flagyl. Started on Lantus insulin, Glucerna to be started this morning 12 lead EKG reveiwed- QTc 380 On day 35 of Plaquenil. Hypokalemia and hypernatremic on BMP OGT in place 06/08/2019 COVID POSITIVE ETT to MVS- at 7.5 cm, 22 cm at the lip AC-VC 20/400/40%/PEEP 6 ABG 7.50/42/54/30.3 Remains sedated on Propfol at 10mcg RASS -1, hypernatremia 161, hypokalemia 3.1 Triglycerides at 373 Currently on D50 at 100ml/hour Completed course of Plaquenil On Cefpime D#6 and Metronidazole D#5 Tolerating tube feeding; free water flushes at 300ml q4 On going fevers T max 100.6 06/09/2019 Seen and examined. Vitals, labs, medications, chart and imaging reviewed. No fevers. Remains on full MVS AC-VC 16/400/8/40% ABG 7.48/45/71/33. Inflammatory markers are trending down Objective Vital Signs - 12hr 06/09/19 06/09/19 06/09/19 03:00 03:16 03:30 Temperature Pulse Rate 98 H 95 H 92 H Pulse Rate [ From Monitor] Respiratory 18 22 24 Rate Blood Pressure 134/84 126/81 109/76 O2 Sat by Pulse 96 95 97 Oximetry 06/09/19 06/09/19 06/09/19 03:46 04:00 04:16 Temperature 99.7 F H Pulse Rate 97 H 94 H 93 H Pulse Rate [ 98 H From Monitor] Respiratory 22 21 18 Rate Blood Pressure 109/76 108/69 108/69 O2 Sat by Pulse 97 96 95 Oximetry 06/09/19 06/09/19 06/09/19 04:30 04:46 05:00 Temperature Pulse Rate 92 H 92 H 93 H Pulse Rate [ From Monitor] Respiratory 18 18 24 Rate Blood Pressure 97/66 97/66 105/71 O2 Sat by Pulse 93 94 95 Oximetry 06/09/19 06/09/19 06/09/19 05:05 05:16 05:30 Temperature Pulse Rate 109 H 89 89 Pulse Rate [ From Monitor] Respiratory 23 19 Rate Blood Pressure 112/67 97/66 111/74 O2 Sat by Pulse 98 95 96 Oximetry 06/09/19 06/09/19 06/09/19 05:46 06:00 06:16 Temperature Pulse Rate 88 85 88 Pulse Rate [ From Monitor] Respiratory 24 21 20 Rate Blood Pressure 111/74 126/84 126/84 O2 Sat by Pulse 97 97 97 Oximetry 06/09/19 06/09/19 06/09/19 06:30 06:46 07:00 Temperature Pulse Rate 89 90 91 H Pulse Rate [ From Monitor] Respiratory 19 20 24 Rate Blood Pressure 131/86 126/84 107/64 O2 Sat by Pulse 97 96 95 Oximetry 06/09/19 06/09/19 06/09/19 07:16 07:30 07:46 Temperature Pulse Rate 90 88 88 Pulse Rate [ From Monitor] Respiratory 21 24 19 Rate Blood Pressure 107/64 108/70 108/70 O2 Sat by Pulse 95 94 95 Oximetry 06/09/19 06/09/19 06/09/19 08:00 08:15 08:30 Temperature 97.1 F L Pulse Rate 89 87 91 H Pulse Rate [ 86 From Monitor] Respiratory 22 18 21 Rate Blood Pressure 125/80 125/80 122/86 O2 Sat by Pulse 96 95 96 Oximetry 06/09/19 06/09/19 06/09/19 08:46 09:00 09:16 Temperature Pulse Rate 93 H 82 86 Pulse Rate [ From Monitor] Respiratory 20 18 18 Rate Blood Pressure 125/80 126/83 122/86 O2 Sat by Pulse 95 96 96 Oximetry 06/09/19 06/09/19 06/09/19 09:20 09:30 09:46 Temperature Pulse Rate 82 87 92 H Pulse Rate [ From Monitor] Respiratory 23 23 Rate Blood Pressure 159/105 119/78 126/83 O2 Sat by Pulse 97 92 92 Oximetry 06/09/19 06/09/19 06/09/19 10:00 10:12 10:16 Temperature Pulse Rate 89 91 H 91 H Pulse Rate [ From Monitor] Respiratory 20 21 Rate Blood Pressure 137/86 137/86 137/86 O2 Sat by Pulse 92 92 Oximetry 06/09/19 06/09/19 06/09/19 10:30 10:46 11:00 Temperature Pulse Rate 92 H 91 H 88 Pulse Rate [ From Monitor] Respiratory 25 H 22 22 Rate Blood Pressure 142/87 142/87 142/84 O2 Sat by Pulse 91 94 95 Oximetry 06/09/19 06/09/19 06/09/19 11:16 11:30 11:46 Temperature Pulse Rate 87 87 89 Pulse Rate [ From Monitor] Respiratory 22 23 22 Rate Blood Pressure 142/84 144/93 144/93 O2 Sat by Pulse 96 97 97 Oximetry 06/09/19 06/09/19 06/09/19 12:00 12:10 12:16 Temperature 97.1 F L Pulse Rate 90 91 H 97 H Pulse Rate [ 92 H From Monitor] Respiratory 21 25 H Rate Blood Pressure 139/90 139/90 139/90 O2 Sat by Pulse 96 97 94 Oximetry 06/09/19 06/09/19 06/09/19 12:30 12:46 13:00 Temperature Pulse Rate 92 H 82 89 Pulse Rate [ From Monitor] Respiratory 24 22 18 Rate Blood Pressure 147/92 147/92 159/105 O2 Sat by Pulse 95 97 95 Oximetry 06/09/19 06/09/19 06/09/19 13:16 13:30 13:46 Temperature Pulse Rate 82 83 83 Pulse Rate [ From Monitor] Respiratory 21 17 22 Rate Blood Pressure 159/105 141/92 141/92 O2 Sat by Pulse 96 97 97 Oximetry 06/09/19 06/09/19 14:00 14:16 Temperature Pulse Rate 85 76 Pulse Rate [ From Monitor] Respiratory 16 23 Rate Blood Pressure 151/101 151/101 O2 Sat by Pulse 97 98 Oximetry Constitutional: no acute distress, asleep, other (Atraumatic, normocephalic, no patient -ventilator dyssynchrony) Eyes: non-icteric ENT: other (OGT in place, ETT in palce) Neck: supple, no lymphadenopathy, no JVD Effort: normal Ascultation: Bilateral: clear, diminished breath sounds, rhonchi Percussion: Bilateral: not dull Cardiovascular: irregular rhythm, other (S1,S2, no murmurs) Gastrointestinal: normoactive bowel sounds, soft, non-tender, tender Integumentary: normal Extremities: no cyanosis, no edema, pulses normal, no ischemia or petechiae Neurologic: unable to assess (sedated) Psychiatric: other (sedated) CBC and BMP: 06/12/19 03:58 06/12/19 03:58 ABG, PT/INR, D-dimer: ABG ABG pH 7.480 pH Units (7.350-7.450) H 06/09/19 04:18 ABG pCO2 45.1 mm Hg 06/09/19 04:18 ABG pO2 70.9 mm Hg (80.0-90.0) L 06/09/19 04:18 ABG O2 Saturation 96.3 % (95.0-99.0) 06/09/19 04:18 PT/INR, D-dimer D-Dimer 991.99 ng/mlDDU (0-234) H 06/09/19 07:34 Abnormal lab findings: Abnormal Labs 06/03/19 06/03/19 06/03/19 10:59 11:15 11:48 WBC RBC Hgb Hct MCH RDW Seg Neuts % (Manual) Lymphocytes % (Manual) Monocytes % (Manual) Seg Neutrophils # Man Lymphocytes # (Manual) Monocytes # (Manual) D-Dimer ABG pH ABG pO2 ABG HCO3 ABG O2 Saturation ABG Base Excess ABG Hemoglobin VBG pH Oxyhemoglobin Sodium Potassium Chloride Carbon Dioxide BUN Creatinine Glucose POC Glucose 372 H Hemoglobin A1c Lactic Acid Calcium Phosphorus 11.70 H Magnesium 4.40 H Ferritin AST Alkaline Phosphatase Lactate Dehydrogenase C-Reactive Protein Total Protein Albumin Triglycerides Cholesterol Urine Creatinine 37.4 H Urine Microalbumin 65.1 H Vancomycin Trough Salicylates Acetaminophen 06/03/19 06/03/19 06/03/19 11:51 11:51 11:51 WBC 23.3 H RBC 6.43 H Hgb 17.7 H Hct 59.9 H* MCH RDW 17.1 H Seg Neuts % (Manual) 71.0 H Lymphocytes % (Manual) 11.0 L Monocytes % (Manual) 8.0 H Seg Neutrophils # Man 16.5 H Lymphocytes # (Manual) Monocytes # (Manual) 1.9 H D-Dimer ABG pH ABG pO2 ABG HCO3 ABG O2 Saturation ABG Base Excess ABG Hemoglobin VBG pH Oxyhemoglobin Sodium Potassium Chloride Carbon Dioxide 4 L* BUN 41 H Creatinine 1.8 H Glucose 636 H* POC Glucose Hemoglobin A1c Lactic Acid 3.20 H* Calcium 10.9 H Phosphorus Magnesium Ferritin AST 43 H Alkaline Phosphatase 147 H Lactate Dehydrogenase 673 H C-Reactive Protein 14.70 H Total Protein 8.9 H Albumin Triglycerides Cholesterol Urine Creatinine Urine Microalbumin Vancomycin Trough Salicylates Acetaminophen 06/03/19 06/03/19 06/03/19 11:51 11:51 11:51 WBC RBC Hgb Hct MCH RDW Seg Neuts % (Manual) Lymphocytes % (Manual) Monocytes % (Manual) Seg Neutrophils # Man Lymphocytes # (Manual) Monocytes # (Manual) D-Dimer ABG pH ABG pO2 ABG HCO3 ABG O2 Saturation ABG Base Excess ABG Hemoglobin VBG pH 6.901 L* Oxyhemoglobin Sodium Potassium Chloride Carbon Dioxide BUN Creatinine Glucose POC Glucose Hemoglobin A1c Lactic Acid Calcium Phosphorus Magnesium Ferritin AST Alkaline Phosphatase Lactate Dehydrogenase C-Reactive Protein Total Protein Albumin Triglycerides Cholesterol Urine Creatinine Urine Microalbumin Vancomycin Trough Salicylates < 0.3 L Acetaminophen < 5.0 L 06/03/19 06/03/19 06/03/19 11:51 11:51 12:34 WBC RBC Hgb Hct MCH RDW Seg Neuts % (Manual) Lymphocytes % (Manual) Monocytes % (Manual) Seg Neutrophils # Man Lymphocytes # (Manual) Monocytes # (Manual) D-Dimer 4311.60 H ABG pH ABG pO2 ABG HCO3 ABG O2 Saturation ABG Base Excess ABG Hemoglobin VBG pH Oxyhemoglobin Sodium Potassium Chloride Carbon Dioxide BUN Creatinine Glucose POC Glucose Hemoglobin A1c Lactic Acid 5.20 H* Calcium Phosphorus Magnesium Ferritin 1037.0 H AST Alkaline Phosphatase Lactate Dehydrogenase C-Reactive Protein Total Protein Albumin Triglycerides Cholesterol Urine Creatinine Urine Microalbumin Vancomycin Trough Salicylates Acetaminophen 06/03/19 06/03/19 06/03/19 14:30 16:03 17:00 WBC RBC Hgb Hct MCH RDW Seg Neuts % (Manual) Lymphocytes % (Manual) Monocytes % (Manual) Seg Neutrophils # Man Lymphocytes # (Manual) Monocytes # (Manual) D-Dimer ABG pH 6.880 L* ABG pO2 489.9 H ABG HCO3 7.1 L ABG O2 Saturation 99.6 H ABG Base Excess -26.1 L ABG Hemoglobin 16.2 H VBG pH Oxyhemoglobin Sodium Potassium Chloride Carbon Dioxide BUN Creatinine Glucose POC Glucose 335 H Hemoglobin A1c 9.6 H Lactic Acid Calcium Phosphorus Magnesium Ferritin AST Alkaline Phosphatase Lactate Dehydrogenase C-Reactive Protein Total Protein Albumin Triglycerides Cholesterol Urine Creatinine Urine Microalbumin Vancomycin Trough Salicylates Acetaminophen 06/03/19 06/03/19 06/03/19 18:14 18:24 19:00 WBC RBC Hgb Hct MCH RDW Seg Neuts % (Manual) Lymphocytes % (Manual) Monocytes % (Manual) Seg Neutrophils # Man Lymphocytes # (Manual) Monocytes # (Manual) D-Dimer ABG pH 7.057 L* ABG pO2 97.2 H ABG HCO3 5.5 L ABG O2 Saturation ABG Base Excess -23.0 L ABG Hemoglobin 18.1 H VBG pH Oxyhemoglobin 94.4 L Sodium Potassium Chloride Carbon Dioxide BUN Creatinine Glucose POC Glucose 285 H Hemoglobin A1c Lactic Acid 3.40 H* Calcium Phosphorus Magnesium Ferritin AST Alkaline Phosphatase Lactate Dehydrogenase C-Reactive Protein Total Protein Albumin Triglycerides Cholesterol Urine Creatinine Urine Microalbumin Vancomycin Trough Salicylates Acetaminophen 06/03/19 06/03/19 06/03/19 19:00 19:00 19:52 WBC RBC Hgb Hct MCH RDW Seg Neuts % (Manual) Lymphocytes % (Manual) Monocytes % (Manual) Seg Neutrophils # Man Lymphocytes # (Manual) Monocytes # (Manual) D-Dimer ABG pH ABG pO2 ABG HCO3 ABG O2 Saturation ABG Base Excess ABG Hemoglobin VBG pH Oxyhemoglobin Sodium 151 H Potassium Chloride 120.8 H Carbon Dioxide 6 L* BUN 33 H Creatinine 1.4 H Glucose 339 H POC Glucose 316 H Hemoglobin A1c Lactic Acid Calcium Phosphorus Magnesium Ferritin AST 47 H Alkaline Phosphatase 130 H Lactate Dehydrogenase C-Reactive Protein Total Protein Albumin 3.7 L Triglycerides 424 H Cholesterol 250 H Urine Creatinine Urine Microalbumin Vancomycin Trough Salicylates Acetaminophen 06/03/19 06/03/19 06/03/19 20:21 20:21 21:01 WBC RBC Hgb Hct MCH RDW Seg Neuts % (Manual) Lymphocytes % (Manual) Monocytes % (Manual) Seg Neutrophils # Man Lymphocytes # (Manual) Monocytes # (Manual) D-Dimer ABG pH ABG pO2 ABG HCO3 ABG O2 Saturation ABG Base Excess ABG Hemoglobin VBG pH Oxyhemoglobin Sodium 153 H Potassium Chloride 121.8 H Carbon Dioxide 6 L* BUN 34 H Creatinine 1.3 H Glucose 324 H POC Glucose 245 H Hemoglobin A1c Lactic Acid 3.10 H* Calcium Phosphorus Magnesium Ferritin AST Alkaline Phosphatase Lactate Dehydrogenase C-Reactive Protein Total Protein Albumin Triglycerides Cholesterol Urine Creatinine Urine Microalbumin Vancomycin Trough Salicylates Acetaminophen 06/03/19 06/03/19 06/03/19 21:25 21:32 22:42 WBC RBC Hgb Hct MCH RDW Seg Neuts % (Manual) Lymphocytes % (Manual) Monocytes % (Manual) Seg Neutrophils # Man Lymphocytes # (Manual) Monocytes # (Manual) D-Dimer ABG pH 7.172 L* ABG pO2 107.2 H ABG HCO3 5.2 L ABG O2 Saturation ABG Base Excess -20.5 L ABG Hemoglobin 17.3 H VBG pH Oxyhemoglobin Sodium 155 H Potassium 2.6 L* D Chloride 130.1 H Carbon Dioxide 5 L* BUN 24 H Creatinine Glucose 212 H POC Glucose 225 H Hemoglobin A1c Lactic Acid Calcium 5.8 L* D Phosphorus Magnesium Ferritin AST Alkaline Phosphatase Lactate Dehydrogenase C-Reactive Protein Total Protein Albumin Triglycerides Cholesterol Urine Creatinine Urine Microalbumin Vancomycin Trough Salicylates Acetaminophen 06/03/19 06/04/19 06/04/19 23:32 00:04 01:25 WBC RBC Hgb Hct MCH RDW Seg Neuts % (Manual) Lymphocytes % (Manual) Monocytes % (Manual) Seg Neutrophils # Man Lymphocytes # (Manual) Monocytes # (Manual) D-Dimer ABG pH ABG pO2 ABG HCO3 ABG O2 Saturation ABG Base Excess ABG Hemoglobin VBG pH Oxyhemoglobin Sodium 151 H 151 H Potassium 1.5 L* D Chloride 139.0 H 124.7 H Carbon Dioxide 3 L* 9 L* BUN 31 H Creatinine 0.2 L D Glucose 117 H 241 H POC Glucose 231 H Hemoglobin A1c Lactic Acid Calcium 3.1 L* D Phosphorus Magnesium Ferritin AST Alkaline Phosphatase Lactate Dehydrogenase C-Reactive Protein Total Protein Albumin Triglycerides Cholesterol Urine Creatinine Urine Microalbumin Vancomycin Trough Salicylates Acetaminophen 06/04/19 06/04/19 06/04/19 01:34 02:45 03:21 WBC RBC Hgb Hct MCH RDW Seg Neuts % (Manual) Lymphocytes % (Manual) Monocytes % (Manual) Seg Neutrophils # Man Lymphocytes # (Manual) Monocytes # (Manual) D-Dimer ABG pH ABG pO2 ABG HCO3 ABG O2 Saturation ABG Base Excess ABG Hemoglobin VBG pH Oxyhemoglobin Sodium Potassium Chloride Carbon Dioxide BUN Creatinine Glucose POC Glucose 194 H 189 H 183 H Hemoglobin A1c Lactic Acid Calcium Phosphorus Magnesium Ferritin AST Alkaline Phosphatase Lactate Dehydrogenase C-Reactive Protein Total Protein Albumin Triglycerides Cholesterol Urine Creatinine Urine Microalbumin Vancomycin Trough Salicylates Acetaminophen 06/04/19 06/04/19 06/04/19 04:50 05:07 06:27 WBC RBC Hgb Hct MCH RDW Seg Neuts % (Manual) Lymphocytes % (Manual) Monocytes % (Manual) Seg Neutrophils # Man Lymphocytes # (Manual) Monocytes # (Manual) D-Dimer ABG pH ABG pO2 76.5 L ABG HCO3 12.9 L ABG O2 Saturation ABG Base Excess -9.0 L ABG Hemoglobin VBG pH Oxyhemoglobin Sodium Potassium Chloride Carbon Dioxide BUN Creatinine Glucose POC Glucose 200 H 164 H Hemoglobin A1c Lactic Acid Calcium Phosphorus Magnesium Ferritin AST Alkaline Phosphatase Lactate Dehydrogenase C-Reactive Protein Total Protein Albumin Triglycerides Cholesterol Urine Creatinine Urine Microalbumin Vancomycin Trough Salicylates Acetaminophen 06/04/19 06/04/19 06/04/19 07:00 07:00 07:00 WBC 13.4 H RBC 5.54 H Hgb 15.3 H Hct 46.1 H D MCH RDW Seg Neuts % (Manual) 72.0 H Lymphocytes % (Manual) 6.0 L Monocytes % (Manual) Seg Neutrophils # Man 9.6 H Lymphocytes # (Manual) 0.8 L Monocytes # (Manual) D-Dimer ABG pH ABG pO2 ABG HCO3 ABG O2 Saturation ABG Base Excess ABG Hemoglobin VBG pH Oxyhemoglobin Sodium 158 H 156 H Potassium 2.7 L* D 2.6 L* Chloride 124.3 H 123.5 H Carbon Dioxide 11 L 11 L BUN 25 H 26 H Creatinine Glucose 192 H 190 H POC Glucose Hemoglobin A1c Lactic Acid Calcium Phosphorus Magnesium Ferritin AST 43 H Alkaline Phosphatase Lactate Dehydrogenase 590 H C-Reactive Protein 22.70 H Total Protein Albumin 2.9 L Triglycerides Cholesterol Urine Creatinine Urine Microalbumin Vancomycin Trough Salicylates Acetaminophen 06/04/19 06/04/19 06/04/19 07:00 07:00 07:14 WBC RBC Hgb Hct MCH RDW Seg Neuts % (Manual) Lymphocytes % (Manual) Monocytes % (Manual) Seg Neutrophils # Man Lymphocytes # (Manual) Monocytes # (Manual) D-Dimer 2050.33 H ABG pH ABG pO2 ABG HCO3 ABG O2 Saturation ABG Base Excess ABG Hemoglobin VBG pH Oxyhemoglobin Sodium Potassium Chloride Carbon Dioxide BUN Creatinine Glucose POC Glucose 176 H Hemoglobin A1c Lactic Acid Calcium Phosphorus Magnesium Ferritin 941.3 H AST Alkaline Phosphatase Lactate Dehydrogenase C-Reactive Protein Total Protein Albumin Triglycerides Cholesterol Urine Creatinine Urine Microalbumin Vancomycin Trough Salicylates Acetaminophen 06/04/19 06/04/19 06/04/19 09:55 11:38 12:19 WBC RBC Hgb Hct MCH RDW Seg Neuts % (Manual) Lymphocytes % (Manual) Monocytes % (Manual) Seg Neutrophils # Man Lymphocytes # (Manual) Monocytes # (Manual) D-Dimer ABG pH ABG pO2 ABG HCO3 ABG O2 Saturation ABG Base Excess ABG Hemoglobin VBG pH Oxyhemoglobin Sodium Potassium Chloride Carbon Dioxide BUN Creatinine Glucose POC Glucose 184 H 145 H 144 H Hemoglobin A1c Lactic Acid Calcium Phosphorus Magnesium Ferritin AST Alkaline Phosphatase Lactate Dehydrogenase C-Reactive Protein Total Protein Albumin Triglycerides Cholesterol Urine Creatinine Urine Microalbumin Vancomycin Trough Salicylates Acetaminophen 06/04/19 06/04/19 06/04/19 13:35 14:29 15:06 WBC RBC Hgb Hct MCH RDW Seg Neuts % (Manual) Lymphocytes % (Manual) Monocytes % (Manual) Seg Neutrophils # Man Lymphocytes # (Manual) Monocytes # (Manual) D-Dimer ABG pH ABG pO2 ABG HCO3 ABG O2 Saturation ABG Base Excess ABG Hemoglobin VBG pH Oxyhemoglobin Sodium 157 H Potassium 2.4 L* Chloride 121.4 H Carbon Dioxide 20 L D BUN 21 H Creatinine Glucose 176 H POC Glucose 151 H 142 H Hemoglobin A1c Lactic Acid Calcium Phosphorus Magnesium Ferritin AST Alkaline Phosphatase Lactate Dehydrogenase C-Reactive Protein Total Protein Albumin Triglycerides Cholesterol Urine Creatinine Urine Microalbumin Vancomycin Trough Salicylates Acetaminophen 06/04/19 06/04/19 06/04/19 17:14 17:51 21:45 WBC RBC Hgb Hct MCH RDW Seg Neuts % (Manual) Lymphocytes % (Manual) Monocytes % (Manual) Seg Neutrophils # Man Lymphocytes # (Manual) Monocytes # (Manual) D-Dimer ABG pH ABG pO2 ABG HCO3 ABG O2 Saturation ABG Base Excess ABG Hemoglobin VBG pH Oxyhemoglobin Sodium Potassium Chloride Carbon Dioxide BUN Creatinine Glucose POC Glucose 200 H 159 H 143 H Hemoglobin A1c Lactic Acid Calcium Phosphorus Magnesium Ferritin AST Alkaline Phosphatase Lactate Dehydrogenase C-Reactive Protein Total Protein Albumin Triglycerides Cholesterol Urine Creatinine Urine Microalbumin Vancomycin Trough Salicylates Acetaminophen 06/04/19 06/04/19 06/04/19 22:20 22:21 23:27 WBC RBC Hgb Hct MCH RDW Seg Neuts % (Manual) Lymphocytes % (Manual) Monocytes % (Manual) Seg Neutrophils # Man Lymphocytes # (Manual) Monocytes # (Manual) D-Dimer ABG pH 7.572 H ABG pO2 58.5 L ABG HCO3 ABG O2 Saturation ABG Base Excess 3.5 H ABG Hemoglobin 20.0 H VBG pH Oxyhemoglobin 94.6 L Sodium Potassium Chloride Carbon Dioxide BUN Creatinine Glucose POC Glucose 154 H 147 H Hemoglobin A1c Lactic Acid Calcium Phosphorus Magnesium Ferritin AST Alkaline Phosphatase Lactate Dehydrogenase C-Reactive Protein Total Protein Albumin Triglycerides Cholesterol Urine Creatinine Urine Microalbumin Vancomycin Trough Salicylates Acetaminophen 06/05/19 06/05/19 06/05/19 00:27 01:16 02:20 WBC RBC Hgb Hct MCH RDW Seg Neuts % (Manual) Lymphocytes % (Manual) Monocytes % (Manual) Seg Neutrophils # Man Lymphocytes # (Manual) Monocytes # (Manual) D-Dimer ABG pH ABG pO2 ABG HCO3 ABG O2 Saturation ABG Base Excess ABG Hemoglobin VBG pH Oxyhemoglobin Sodium Potassium Chloride Carbon Dioxide BUN Creatinine Glucose POC Glucose 124 H 126 H 156 H Hemoglobin A1c Lactic Acid Calcium Phosphorus Magnesium Ferritin AST Alkaline Phosphatase Lactate Dehydrogenase C-Reactive Protein Total Protein Albumin Triglycerides Cholesterol Urine Creatinine Urine Microalbumin Vancomycin Trough Salicylates Acetaminophen 06/05/19 06/05/19 06/05/19 03:44 03:59 04:52 WBC RBC Hgb Hct MCH RDW Seg Neuts % (Manual) Lymphocytes % (Manual) Monocytes % (Manual) Seg Neutrophils # Man Lymphocytes # (Manual) Monocytes # (Manual) D-Dimer ABG pH ABG pO2 ABG HCO3 ABG O2 Saturation ABG Base Excess ABG Hemoglobin VBG pH Oxyhemoglobin Sodium 155 H Potassium 3.0 L D Chloride 114.7 H Carbon Dioxide BUN Creatinine 0.6 L Glucose 136 H POC Glucose 143 H 141 H Hemoglobin A1c Lactic Acid Calcium Phosphorus Magnesium Ferritin AST Alkaline Phosphatase Lactate Dehydrogenase C-Reactive Protein Total Protein Albumin Triglycerides Cholesterol Urine Creatinine Urine Microalbumin Vancomycin Trough Salicylates Acetaminophen 06/05/19 06/05/19 06/05/19 05:00 05:54 07:01 WBC RBC Hgb Hct MCH RDW Seg Neuts % (Manual) Lymphocytes % (Manual) Monocytes % (Manual) Seg Neutrophils # Man Lymphocytes # (Manual) Monocytes # (Manual) D-Dimer ABG pH 7.621 H* ABG pO2 54.3 L ABG HCO3 29.8 H ABG O2 Saturation ABG Base Excess 8.8 H ABG Hemoglobin VBG pH Oxyhemoglobin Sodium Potassium Chloride Carbon Dioxide BUN Creatinine Glucose POC Glucose 155 H 145 H Hemoglobin A1c Lactic Acid Calcium Phosphorus Magnesium Ferritin AST Alkaline Phosphatase Lactate Dehydrogenase C-Reactive Protein Total Protein Albumin Triglycerides Cholesterol Urine Creatinine Urine Microalbumin Vancomycin Trough Salicylates Acetaminophen 06/05/19 06/05/19 06/05/19 12:13 18:23 21:00 WBC RBC Hgb Hct MCH RDW Seg Neuts % (Manual) Lymphocytes % (Manual) Monocytes % (Manual) Seg Neutrophils # Man Lymphocytes # (Manual) Monocytes # (Manual) D-Dimer ABG pH ABG pO2 ABG HCO3 ABG O2 Saturation ABG Base Excess ABG Hemoglobin VBG pH Oxyhemoglobin Sodium Potassium Chloride Carbon Dioxide BUN Creatinine Glucose POC Glucose 202 H 257 H Hemoglobin A1c Lactic Acid Calcium Phosphorus Magnesium Ferritin AST Alkaline Phosphatase Lactate Dehydrogenase C-Reactive Protein Total Protein Albumin Triglycerides Cholesterol Urine Creatinine Urine Microalbumin Vancomycin Trough 4.2 L Salicylates Acetaminophen 06/05/19 06/06/19 06/06/19 23:55 04:16 04:37 WBC RBC Hgb Hct MCH RDW Seg Neuts % (Manual) Lymphocytes % (Manual) Monocytes % (Manual) Seg Neutrophils # Man Lymphocytes # (Manual) Monocytes # (Manual) D-Dimer 1279.22 H ABG pH 7.600 H ABG pO2 62.4 L ABG HCO3 28.0 H ABG O2 Saturation ABG Base Excess 6.6 H ABG Hemoglobin 10.4 L VBG pH Oxyhemoglobin Sodium Potassium Chloride Carbon Dioxide BUN Creatinine Glucose POC Glucose 267 H Hemoglobin A1c Lactic Acid Calcium Phosphorus Magnesium Ferritin AST Alkaline Phosphatase Lactate Dehydrogenase C-Reactive Protein Total Protein Albumin Triglycerides Cholesterol Urine Creatinine Urine Microalbumin Vancomycin Trough Salicylates Acetaminophen 06/06/19 06/06/19 06/06/19 04:37 04:37 04:37 WBC 12.2 H RBC 5.10 H Hgb Hct MCH 27 L RDW Seg Neuts % (Manual) Lymphocytes % (Manual) Monocytes % (Manual) Seg Neutrophils # Man Lymphocytes # (Manual) Monocytes # (Manual) D-Dimer ABG pH ABG pO2 ABG HCO3 ABG O2 Saturation ABG Base Excess ABG Hemoglobin VBG pH Oxyhemoglobin Sodium 156 H Potassium 3.4 L Chloride 112.9 H Carbon Dioxide BUN 21 H Creatinine 0.6 L Glucose 332 H POC Glucose Hemoglobin A1c Lactic Acid Calcium Phosphorus Magnesium Ferritin 1649.0 H AST Alkaline Phosphatase Lactate Dehydrogenase 578 H C-Reactive Protein 22.10 H Total Protein Albumin Triglycerides Cholesterol Urine Creatinine Urine Microalbumin Vancomycin Trough Salicylates Acetaminophen 06/06/19 06/06/19 06/06/19 05:45 11:55 12:21 WBC RBC Hgb Hct MCH RDW Seg Neuts % (Manual) Lymphocytes % (Manual) Monocytes % (Manual) Seg Neutrophils # Man Lymphocytes # (Manual) Monocytes # (Manual) D-Dimer ABG pH 7.511 H ABG pO2 123.0 H ABG HCO3 29.7 H ABG O2 Saturation ABG Base Excess 6.4 H ABG Hemoglobin VBG pH Oxyhemoglobin Sodium Potassium Chloride Carbon Dioxide BUN Creatinine Glucose POC Glucose 303 H 281 H Hemoglobin A1c Lactic Acid Calcium Phosphorus Magnesium Ferritin AST Alkaline Phosphatase Lactate Dehydrogenase C-Reactive Protein Total Protein Albumin Triglycerides Cholesterol Urine Creatinine Urine Microalbumin Vancomycin Trough Salicylates Acetaminophen 06/06/19 06/07/19 06/07/19 17:06 00:25 04:39 WBC RBC Hgb Hct MCH RDW Seg Neuts % (Manual) Lymphocytes % (Manual) Monocytes % (Manual) Seg Neutrophils # Man Lymphocytes # (Manual) Monocytes # (Manual) D-Dimer ABG pH 7.507 H ABG pO2 46.4 L ABG HCO3 32.6 H ABG O2 Saturation 90.6 L ABG Base Excess 8.6 H ABG Hemoglobin VBG pH Oxyhemoglobin 89.2 L Sodium Potassium Chloride Carbon Dioxide BUN Creatinine Glucose POC Glucose 251 H 225 H Hemoglobin A1c Lactic Acid Calcium Phosphorus Magnesium Ferritin AST Alkaline Phosphatase Lactate Dehydrogenase C-Reactive Protein Total Protein Albumin Triglycerides Cholesterol Urine Creatinine Urine Microalbumin Vancomycin Trough Salicylates Acetaminophen 06/07/19 06/07/19 06/07/19 04:43 04:43 04:43 WBC 13.6 H RBC 5.14 H Hgb Hct 43.4 H MCH 27 L RDW Seg Neuts % (Manual) Lymphocytes % (Manual) Monocytes % (Manual) Seg Neutrophils # Man Lymphocytes # (Manual) Monocytes # (Manual) D-Dimer ABG pH ABG pO2 ABG HCO3 ABG O2 Saturation ABG Base Excess ABG Hemoglobin VBG pH Oxyhemoglobin Sodium 166 H* D Potassium 3.0 L Chloride 122.9 H Carbon Dioxide BUN 27 H Creatinine 0.5 L Glucose 265 H POC Glucose Hemoglobin A1c Lactic Acid Calcium Phosphorus Magnesium Ferritin AST Alkaline Phosphatase Lactate Dehydrogenase C-Reactive Protein Total Protein Albumin Triglycerides 373 H Cholesterol Urine Creatinine Urine Microalbumin Vancomycin Trough Salicylates Acetaminophen 06/07/19 06/07/19 06/07/19 10:12 11:39 15:31 WBC RBC Hgb Hct MCH RDW Seg Neuts % (Manual) Lymphocytes % (Manual) Monocytes % (Manual) Seg Neutrophils # Man Lymphocytes # (Manual) Monocytes # (Manual) D-Dimer ABG pH ABG pO2 ABG HCO3 ABG O2 Saturation ABG Base Excess ABG Hemoglobin VBG pH Oxyhemoglobin Sodium 163 H* 161 H* Potassium 3.1 L Chloride 117.7 H Carbon Dioxide BUN 22 H Creatinine 0.5 L Glucose 274 H POC Glucose 218 H Hemoglobin A1c Lactic Acid Calcium Phosphorus Magnesium Ferritin AST Alkaline Phosphatase Lactate Dehydrogenase C-Reactive Protein Total Protein Albumin Triglycerides Cholesterol Urine Creatinine Urine Microalbumin Vancomycin Trough Salicylates Acetaminophen 06/07/19 06/08/19 06/08/19 17:16 00:04 03:45 WBC RBC Hgb Hct MCH RDW Seg Neuts % (Manual) Lymphocytes % (Manual) Monocytes % (Manual) Seg Neutrophils # Man Lymphocytes # (Manual) Monocytes # (Manual) D-Dimer ABG pH 7.504 H ABG pO2 54.2 L ABG HCO3 32.3 H ABG O2 Saturation 93.7 L ABG Base Excess 8.4 H ABG Hemoglobin VBG pH Oxyhemoglobin 92.2 L Sodium Potassium Chloride Carbon Dioxide BUN Creatinine Glucose POC Glucose 284 H 283 H Hemoglobin A1c Lactic Acid Calcium Phosphorus Magnesium Ferritin AST Alkaline Phosphatase Lactate Dehydrogenase C-Reactive Protein Total Protein Albumin Triglycerides Cholesterol Urine Creatinine Urine Microalbumin Vancomycin Trough Salicylates Acetaminophen 06/08/19 06/08/19 06/08/19 05:02 09:33 09:33 WBC RBC Hgb Hct MCH RDW Seg Neuts % (Manual) Lymphocytes % (Manual) Monocytes % (Manual) Seg Neutrophils # Man Lymphocytes # (Manual) Monocytes # (Manual) D-Dimer 1319.18 H ABG pH ABG pO2 ABG HCO3 ABG O2 Saturation ABG Base Excess ABG Hemoglobin VBG pH Oxyhemoglobin Sodium Potassium Chloride Carbon Dioxide BUN Creatinine Glucose POC Glucose 291 H Hemoglobin A1c Lactic Acid Calcium Phosphorus Magnesium Ferritin 1274.0 H AST Alkaline Phosphatase Lactate Dehydrogenase C-Reactive Protein Total Protein Albumin Triglycerides Cholesterol Urine Creatinine Urine Microalbumin Vancomycin Trough Salicylates Acetaminophen 06/08/19 06/08/19 06/08/19 09:33 09:33 17:46 WBC 16.0 H RBC Hgb Hct MCH 27 L RDW Seg Neuts % (Manual) Lymphocytes % (Manual) Monocytes % (Manual) Seg Neutrophils # Man Lymphocytes # (Manual) Monocytes # (Manual) D-Dimer ABG pH ABG pO2 ABG HCO3 ABG O2 Saturation ABG Base Excess ABG Hemoglobin VBG pH Oxyhemoglobin Sodium 157 H Potassium 3.1 L Chloride 116.7 H Carbon Dioxide BUN 24 H Creatinine 0.5 L Glucose 351 H POC Glucose 309 H Hemoglobin A1c Lactic Acid Calcium Phosphorus 2.20 L Magnesium 2.60 H Ferritin AST Alkaline Phosphatase 131 H Lactate Dehydrogenase 449 H C-Reactive Protein 9.70 H Total Protein 6.1 L Albumin 2.1 L Triglycerides Cholesterol Urine Creatinine Urine Microalbumin Vancomycin Trough Salicylates Acetaminophen 06/08/19 06/08/19 06/09/19 21:55 23:46 04:18 WBC RBC Hgb Hct MCH RDW Seg Neuts % (Manual) Lymphocytes % (Manual) Monocytes % (Manual) Seg Neutrophils # Man Lymphocytes # (Manual) Monocytes # (Manual) D-Dimer ABG pH 7.480 H ABG pO2 70.9 L ABG HCO3 32.9 H ABG O2 Saturation ABG Base Excess 8.4 H ABG Hemoglobin 10.3 L VBG pH Oxyhemoglobin 94.8 L Sodium 151 H Potassium 3.3 L Chloride 112.7 H Carbon Dioxide 31 H BUN 24 H Creatinine 0.5 L Glucose 321 H POC Glucose 331 H Hemoglobin A1c Lactic Acid Calcium Phosphorus Magnesium Ferritin AST Alkaline Phosphatase Lactate Dehydrogenase C-Reactive Protein Total Protein Albumin Triglycerides Cholesterol Urine Creatinine Urine Microalbumin Vancomycin Trough Salicylates Acetaminophen 06/09/19 06/09/19 06/09/19 05:35 07:34 07:34 WBC 14.2 H RBC Hgb Hct MCH 27 L RDW Seg Neuts % (Manual) Lymphocytes % (Manual) Monocytes % (Manual) Seg Neutrophils # Man Lymphocytes # (Manual) Monocytes # (Manual) D-Dimer ABG pH ABG pO2 ABG HCO3 ABG O2 Saturation ABG Base Excess ABG Hemoglobin VBG pH Oxyhemoglobin Sodium 153 H Potassium 3.0 L Chloride 113.6 H Carbon Dioxide BUN 26 H Creatinine 0.5 L Glucose 306 H POC Glucose 264 H Hemoglobin A1c Lactic Acid Calcium Phosphorus Magnesium Ferritin AST Alkaline Phosphatase Lactate Dehydrogenase 411 H C-Reactive Protein 6.00 H Total Protein Albumin Triglycerides 304 H Cholesterol Urine Creatinine Urine Microalbumin Vancomycin Trough Salicylates Acetaminophen 06/09/19 06/09/19 07:34 07:34 WBC RBC Hgb Hct MCH RDW Seg Neuts % (Manual) Lymphocytes % (Manual) Monocytes % (Manual) Seg Neutrophils # Man Lymphocytes # (Manual) Monocytes # (Manual) D-Dimer 991.99 H ABG pH ABG pO2 ABG HCO3 ABG O2 Saturation ABG Base Excess ABG Hemoglobin VBG pH Oxyhemoglobin Sodium Potassium Chloride Carbon Dioxide BUN Creatinine Glucose POC Glucose Hemoglobin A1c Lactic Acid Calcium Phosphorus Magnesium Ferritin 1078.0 H AST Alkaline Phosphatase Lactate Dehydrogenase C-Reactive Protein Total Protein Albumin Triglycerides Cholesterol Urine Creatinine Urine Microalbumin Vancomycin Trough Salicylates Acetaminophen Allied health notes reviewed: nursing
--- NOTE | 2019-06-09 15:22 | Progress Note ---
Assessment and Plan Cultures: Blood culture 06/03/2019 no growth today Urine culture 06/03/2019 no growth today Assessment: 48 years old female with history of diabetes, hypertension admitted on 06/03/2019 due to acute altered mental status and shortness of breath,t recently returned back from [place] where she went to celebrate her mother's birthday: #Severe sepsis MODS: fever resolved, leukocytosis down; elevated lactate and SHARITA; likely due to bilateral pneumonia +/- DKA, procal up-->down #Bilateral pneumonia: high suspicion for severe COVID pneumonia +/- bacterial pneumonia. Transmission likely from community recent travel to [place]. COVID test pending. Ferritin at 1,037-->1,649-->1,319. LDH 673-->449. CRP 14-->9. Ddimer 434-->1319. Markers down today #Acute hypoxemic respiratory failure/ARDS: intubated FiO2 40%/p8 pO2 70 #Acute encephalopathy: Likely due to #1 and high sodium #SHARITA: Renally adjust antibiotics, resolved. #Diabetes with DKA #Hypernatremia per IMS, better Recommendations: Hopefully can be extubated Continue hydroxychloroquine (total 5 days) Day 5 of 5 and zinc Stop cefepime, metronidazole s/p 7 days Daily EKG QT monitoring - stop plaqenil if QT interval >500 Continue COVID isolation precautions per [facility] protocol High risk mortality Will follow Kerrie Garcia MD Infectious Diseases [employer] [facility] ([facility]) M [phone] O [phone] Subjective Date of service: 06/09/19 Principal diagnosis: Ac hypoxemic resp failure; Bob. PNA; PUI CVOVID-19; DKA; Severe sepsis Interval history: Remains on intubated, fiO2 40%, p 8, no fever, no pressors Objective - Exam Narrative Exam: Exam performed in conjunction with nursings staff due to lack of PPE General appearance: sedated intubated Eyes: limited due to lack of PPE HENT: Atraumatic; oropharynx limited due to lack of PPE Lungs: Diminished bilateral per RT CV: RRR Abdomen: limited due to lack of PPE Extremities: limited due to lack of PPE Skin: No rash. Psych: sedated Neuro: sedated - Constitutional Vitals: Vital Signs Temp Pulse Resp BP Pulse Ox 97.1 F L 76 23 151/101 98 06/09/19 12:00 06/09/19 14:16 06/09/19 14:16 06/09/19 14:16 06/09/19 14:16 Temperature -Last 24 Hours Temperature 97.1 F Temperature 97.1 F Temperature 99.7 F Temperature 99.8 F Temperature 99.6 F Temperature 98.8 F - Labs CBC & Chem 7: 06/09/19 07:34 06/09/19 07:34 Labs: Abnormal lab results 06/08/19 06/08/19 06/08/19 Range/Units 17:46 21:55 23:46 WBC (4.5-11.0) K/mm3 MCH (28-32) pg D-Dimer (0-234) ng/mlDDU ABG pH (7.350-7.450) pH Units ABG pO2 (80.0-90.0) mm Hg ABG HCO3 (20.0-26.0) mmol/L ABG Base Excess (-2.0-3.0) mmol/L ABG Hemoglobin (12.0-16.0) gm/dl Oxyhemoglobin (95.0-99.0) % Sodium 151 H (137-145) mmol/L Potassium 3.3 L (3.6-5.0) mmol/L Chloride 112.7 H (98-107) mmol/L Carbon Dioxide 31 H (22-30) mmol/L BUN 24 H (7-17) mg/dL Creatinine 0.5 L (0.7-1.2) mg/dL Glucose 321 H (65-100) mg/dL POC Glucose 309 H 331 H (70-105) Ferritin (13.0-400.0) ng/mL Lactate Dehydrogenase (91-180) units/L C-Reactive Protein (0.00-1.30) mg/dL Triglycerides (2-149) mg/dL 06/09/19 06/09/19 06/09/19 Range/Units 04:18 05:35 07:34 WBC 14.2 H (4.5-11.0) K/mm3 MCH 27 L (28-32) pg D-Dimer (0-234) ng/mlDDU ABG pH 7.480 H (7.350-7.450) pH Units ABG pO2 70.9 L (80.0-90.0) mm Hg ABG HCO3 32.9 H (20.0-26.0) mmol/L ABG Base Excess 8.4 H (-2.0-3.0) mmol/L ABG Hemoglobin 10.3 L (12.0-16.0) gm/dl Oxyhemoglobin 94.8 L (95.0-99.0) % Sodium (137-145) mmol/L Potassium (3.6-5.0) mmol/L Chloride (98-107) mmol/L Carbon Dioxide (22-30) mmol/L BUN (7-17) mg/dL Creatinine (0.7-1.2) mg/dL Glucose (65-100) mg/dL POC Glucose 264 H (70-105) Ferritin (13.0-400.0) ng/mL Lactate Dehydrogenase (91-180) units/L C-Reactive Protein (0.00-1.30) mg/dL Triglycerides (2-149) mg/dL 06/09/19 06/09/19 06/09/19 Range/Units 07:34 07:34 07:34 WBC (4.5-11.0) K/mm3 MCH (28-32) pg D-Dimer 991.99 H (0-234) ng/mlDDU ABG pH (7.350-7.450) pH Units ABG pO2 (80.0-90.0) mm Hg ABG HCO3 (20.0-26.0) mmol/L ABG Base Excess (-2.0-3.0) mmol/L ABG Hemoglobin (12.0-16.0) gm/dl Oxyhemoglobin (95.0-99.0) % Sodium 153 H (137-145) mmol/L Potassium 3.0 L (3.6-5.0) mmol/L Chloride 113.6 H (98-107) mmol/L Carbon Dioxide (22-30) mmol/L BUN 26 H (7-17) mg/dL Creatinine 0.5 L (0.7-1.2) mg/dL Glucose 306 H (65-100) mg/dL POC Glucose (70-105) Ferritin 1078.0 H (13.0-400.0) ng/mL Lactate Dehydrogenase 411 H (91-180) units/L C-Reactive Protein 6.00 H (0.00-1.30) mg/dL Triglycerides 304 H (2-149) mg/dL
--- NOTE | 2019-06-09 16:31 | Progress Note ---
Assessment and Plan - Patient Problems (1) Hypernatremia Current Visit: Yes Status: Acute Plan to address problem: Likely in the setting of severe dehydration that can be commonly seen in DKA. Agree with current free water replacemen, which now we are utilizing free water flushed. Serum sodium levels are showing steady improvement. Will continue to monitor. (2) Diabetic ketoacidosis Current Visit: Yes Status: Acute Plan to address problem: Continue current treatment pre protocol. She has been transitioned off insulin regimen and her anion gap has appropriately closed. DM management per primary attending (3) Acute encephalopathy Current Visit: Yes Status: Acute Plan to address problem: Possibly in the setting of hypernatremia and DKA. Will continue to monitor. (4) Acute respiratory failure with hypoxia Current Visit: Yes Status: Acute Plan to address problem: Management per pulmonology. (5) Suspected COVID-19 virus infection Current Visit: Yes Status: Acute Plan to address problem: Patient is being tested at this time. On appropriate Droplet and contact precautions at this time. (6) Hypertension Current Visit: No Status: Chronic Qualifiers: Hypertension type: essential hypertension Qualified Code(s): I10 - Essential (primary) hypertension Plan to address problem: Will monitor on current regimen. (7) Hypokalemia Current Visit: Yes Status: Acute Plan to address problem: Replete per protocol. Subjective Date of service: 06/09/19 Principal diagnosis: Ac hypoxemic resp failure; Bob. PNA; PUI CVOVID-19; DKA; Severe sepsis Interval history: Remains intubated. Pending COVID-19 results. Her hypernatremia is improving with appropriate free water replacement. Patient is receiving free water flushes at this time. Discussed with primary attending. Off insulin gtt and on subcutaneous insulin regimen. Objective - Vital Signs Vital signs: Vital Signs - 12hr 06/09/19 06/09/19 06/09/19 04:30 04:46 05:00 Temperature Pulse Rate 92 H 92 H 93 H Pulse Rate [ From Monitor] Respiratory 18 18 24 Rate Blood Pressure 97/66 97/66 105/71 O2 Sat by Pulse 93 94 95 Oximetry 06/09/19 06/09/19 06/09/19 05:05 05:16 05:30 Temperature Pulse Rate 109 H 89 89 Pulse Rate [ From Monitor] Respiratory 23 19 Rate Blood Pressure 112/67 97/66 111/74 O2 Sat by Pulse 98 95 96 Oximetry 06/09/19 06/09/19 06/09/19 05:46 06:00 06:16 Temperature Pulse Rate 88 85 88 Pulse Rate [ From Monitor] Respiratory 24 21 20 Rate Blood Pressure 111/74 126/84 126/84 O2 Sat by Pulse 97 97 97 Oximetry 06/09/19 06/09/19 06/09/19 06:30 06:46 07:00 Temperature Pulse Rate 89 90 91 H Pulse Rate [ From Monitor] Respiratory 19 20 24 Rate Blood Pressure 131/86 126/84 107/64 O2 Sat by Pulse 97 96 95 Oximetry 06/09/19 06/09/19 06/09/19 07:16 07:30 07:46 Temperature Pulse Rate 90 88 88 Pulse Rate [ From Monitor] Respiratory 21 24 19 Rate Blood Pressure 107/64 108/70 108/70 O2 Sat by Pulse 95 94 95 Oximetry 06/09/19 06/09/19 06/09/19 08:00 08:15 08:30 Temperature 97.1 F L Pulse Rate 89 87 91 H Pulse Rate [ 86 From Monitor] Respiratory 22 18 21 Rate Blood Pressure 125/80 125/80 122/86 O2 Sat by Pulse 96 95 96 Oximetry 06/09/19 06/09/19 06/09/19 08:46 09:00 09:16 Temperature Pulse Rate 93 H 82 86 Pulse Rate [ From Monitor] Respiratory 20 18 18 Rate Blood Pressure 125/80 126/83 122/86 O2 Sat by Pulse 95 96 96 Oximetry 06/09/19 06/09/19 06/09/19 09:20 09:30 09:46 Temperature Pulse Rate 82 87 92 H Pulse Rate [ From Monitor] Respiratory 23 23 Rate Blood Pressure 159/105 119/78 126/83 O2 Sat by Pulse 97 92 92 Oximetry 06/09/19 06/09/19 06/09/19 10:00 10:12 10:16 Temperature Pulse Rate 89 91 H 91 H Pulse Rate [ From Monitor] Respiratory 20 21 Rate Blood Pressure 137/86 137/86 137/86 O2 Sat by Pulse 92 92 Oximetry 06/09/19 06/09/19 06/09/19 10:30 10:46 11:00 Temperature Pulse Rate 92 H 91 H 88 Pulse Rate [ From Monitor] Respiratory 25 H 22 22 Rate Blood Pressure 142/87 142/87 142/84 O2 Sat by Pulse 91 94 95 Oximetry 06/09/19 06/09/19 06/09/19 11:16 11:30 11:46 Temperature Pulse Rate 87 87 89 Pulse Rate [ From Monitor] Respiratory 22 23 22 Rate Blood Pressure 142/84 144/93 144/93 O2 Sat by Pulse 96 97 97 Oximetry 06/09/19 06/09/19 06/09/19 12:00 12:10 12:16 Temperature 97.1 F L Pulse Rate 90 91 H 97 H Pulse Rate [ 92 H From Monitor] Respiratory 21 25 H Rate Blood Pressure 139/90 139/90 139/90 O2 Sat by Pulse 96 97 94 Oximetry 06/09/19 06/09/19 06/09/19 12:30 12:46 13:00 Temperature Pulse Rate 92 H 82 89 Pulse Rate [ From Monitor] Respiratory 24 22 18 Rate Blood Pressure 147/92 147/92 159/105 O2 Sat by Pulse 95 97 95 Oximetry 06/09/19 06/09/19 06/09/19 13:16 13:30 13:46 Temperature Pulse Rate 82 83 83 Pulse Rate [ From Monitor] Respiratory 21 17 22 Rate Blood Pressure 159/105 141/92 141/92 O2 Sat by Pulse 96 97 97 Oximetry 06/09/19 06/09/19 06/09/19 14:00 14:16 14:30 Temperature Pulse Rate 85 76 80 Pulse Rate [ From Monitor] Respiratory 16 23 22 Rate Blood Pressure 151/101 151/101 146/95 O2 Sat by Pulse 97 98 98 Oximetry 06/09/19 06/09/19 06/09/19 14:46 15:00 15:16 Temperature Pulse Rate 80 85 87 Pulse Rate [ From Monitor] Respiratory 23 21 20 Rate Blood Pressure 146/95 139/96 139/96 O2 Sat by Pulse 96 96 97 Oximetry 06/09/19 06/09/19 06/09/19 15:30 15:46 16:00 Temperature 97.6 F Pulse Rate 84 96 H 85 Pulse Rate [ 83 From Monitor] Respiratory 22 26 H 17 Rate Blood Pressure 142/89 142/89 140/91 O2 Sat by Pulse 97 96 95 Oximetry - General Appearance General appearance: obese, chronically ill, intubated EENT: ATNC Neck: no JVD Respiratory: Present: Decreased Breath Sounds Cardiology: regular Gastrointestinal: normal Integumentary: no rash Musculoskeletal: deferred - Lab 06/09/19 07:34 06/09/19 07:34 Most recent lab results ABG pH 7.480 pH Units (7.350-7.450) H 06/09/19 04:18 ABG pCO2 45.1 mm Hg 06/09/19 04:18 ABG pO2 70.9 mm Hg (80.0-90.0) L 06/09/19 04:18 ABG HCO3 32.9 mmol/L (20.0-26.0) H 06/09/19 04:18 ABG O2 Saturation 96.3 % (95.0-99.0) 06/09/19 04:18 Calcium 9.4 mg/dL (8.4-10.2) 06/09/19 07:34 Phosphorus 2.20 mg/dL (2.5-4.5) L 06/08/19 09:33 Magnesium 2.60 mg/dL (1.7-2.3) H 06/08/19 09:33 Urine Creatinine 37.4 mg/dL (0.1-20.0) H 06/03/19 11:48 Urine Sodium 130 mmol/L 06/07/19 17:00 Medications & Allergies - Medications Allergies/Adverse Reactions: Allergies No Known Allergies Allergy (Verified 01/05/15 09:29) Home Medications: Home Medications Medication Instructions Recorded Confirmed Last Taken Type Albuterol INH(or & Nicu Only) 2 puff IH QID PRN 03/13/14 01/05/15 01/04/15 History [ProAir HFA Inhaler] Metformin HCl [metFORMIN ER] 500 mg PO QDAY 03/13/14 01/05/15 01/04/15 History Glimepiride [Amaryl] 1 mg PO QAM 01/05/15 01/05/15 01/04/15 History Losartan/Hydrochlorothiazide 1 tab PO QDAY 01/05/15 01/05/15 01/04/15 History [Hyzaar 50-12.5 TAB] Simvastatin [Zocor TAB] 10 mg PO QHS 01/05/15 01/05/15 01/04/15 History Pantoprazole [Protonix TAB] 40 mg PO QDAY #30 tablet 01/06/15 Unknown Rx Cyclobenzaprine [Flexeril] 10 mg PO QHS PRN #30 tablet 07/04/18 Unknown Rx Ibuprofen [Motrin] 800 mg PO Q8HR #30 tablet 07/04/18 Unknown Rx Active Medications: Generic Name Dose Route Start Last Admin Trade Name Freq PRN Reason Stop Dose Admin Albuterol 2.5 mg 06/03/19 13:57 Proventil IH Q3HRT PRN Shortness Of Breath Lipase/Protease/Amylase 1 each 06/05/19 09:59 Pancreaze 10,500 Unit FEEDTUBE PRN PRN For Clogged Feeding Tube Dextrose 50 ml 06/03/19 13:57 D50w (25gm) Syringe IV Q30MIN PRN Hypoglycemia Protocol Famotidine 20 mg 06/06/19 10:00 06/09/19 10:12 Pepcid PO 20 mg BID JOSE ROBERTO Administration Fentanyl 25 mcg 06/09/19 11:30 Sublimaze IV Q4H PRN AGITATION/ANXIETY Heparin Sodium (Porcine) 5,000 unit 06/03/19 14:15 06/09/19 10:13 Heparin SUB-Q 5,000 unit Q12HR JOSE ROBERTO Administration Hydralazine HCl 10 mg 06/07/19 08:42 06/08/19 14:05 Apresoline IV 10 mg Q4HR PRN Administration Hypertension Hydrochlorothiazide 12.5 mg 06/07/19 10:00 06/09/19 10:12 Hctz PO 12.5 mg QDAY JOSE ROBERTO Administration Hydrophilic Ointment 1 applic 06/03/19 11:02 Vaseline Lip Therapy TP Q2HR PRN Dry Lips Cefepime HCl 2 gm in 100 mls @ 200 mls/hr 06/03/19 22:00 06/09/19 10:13 Cefepime/Ns 2 Gm/100 Ml IV 06/09/19 21:59 200 mls/hr Q12HR JOSE ROBERTO Administration Protocol Metronidazole 500 mg in 100 mls @ 100 mls/hr 06/04/19 09:00 06/09/19 14:26 Flagyl 500 Mg/100 Ml IV 06/10/19 08:59 100 mls/hr Q8HR JOSE ROBERTO Administration Protocol Insulin Glargine 50 units 06/09/19 22:00 Lantus SUB-Q BID JOSE ROBERTO Insulin Human Regular 0 units 06/05/19 09:00 06/09/19 12:52 Humulin R SUB-Q 4 units Q6HR JOSE ROBERTO Administration Protocol Insulin Human Regular 10 units 06/09/19 12:00 06/09/19 12:21 Humulin R SUB-Q 10 units Q6HR JOSE ROBERTO Administration Losartan Potassium 50 mg 06/07/19 10:00 06/09/19 10:12 Cozaar PO 50 mg QDAY JOSE ROBERTO Administration Multi-Ingred Cream/Lotion/Oil/Oint 1 applic 06/03/19 11:02 Artificial Tears Ophth Oint OU Q4HR PRN Dry Eye(s) Quetiapine Fumarate 100 mg 06/08/19 22:00 06/08/19 21:42 Seroquel PO 100 mg QHS JOSE ROBERTO Administration Senna 8.6 mg 06/03/19 22:00 06/09/19 10:12 Senokot PO 8.6 mg BID JOSE ROBERTO Administration Simple Syrup 15 ml 06/05/19 09:59 Simple Syrup FEEDTUBE PRN PRN Hypoglycemia Simple Syrup 30 ml 06/05/19 09:59 Simple Syrup FEEDTUBE PRN PRN Hypoglycemia Sodium Bicarbonate 325 mg 06/05/19 09:59 Sodium Bicarbonate FEEDTUBE PRN PRN For Clogged Feeding Tube Sodium Chloride 10 ml 06/03/19 22:00 06/09/19 10:00 Sodium Chloride Flush Syringe 10 Ml IV 10 ml BID JOSE ROBERTO Administration Sodium Chloride 10 ml 06/03/19 13:57 Sodium Chloride Flush Syringe 10 Ml IV PRN PRN LINE FLUSH
--- NOTE | 2019-06-09 17:07 | Progress Note ---
Assessment and Plan Assessment and plan: Mrs. Tomas is a 48-year-old female with a history of hypertension, type 2 diabetes mellitus events with altered mental status. She arrived per EMS. Last known time normal 10 PM on night prior to admission. Patient is nonverbal. History obtained from paramedics and electronic medical record. Patient had been ill with fever cough for the past several days. She recently returned back from [place]. EMS discovered patient to be altered with work of breathing. Patient is nonverbal. She was not moving her right side. She is hypoxic at 77% room air. Blood pressure was 140/97. Blood sugar was elevated fingerstick. Hx obtained from [facility] Love realized that patient was not speaking 4 AM. Found her later breathing really heavy. Unresponsive. When she came back from [place] last Saturday. She had high fever. Her doctor ordered test for COVID-19. Dr. Rausch her PCP informed patient that she tested negative. She went to [place] to celebrate her mother's birthday. On admission she was noted to be in DKA and started on DKA protocol. She was al so intubated and on full mechanical ventilatory support. Diagnostic work-up so far EKG shows sinus tachycardia with MAT CT head no acute intracranial process CT cervical spine patchy groundglass consolidative airspace disease right mid to lower lung Mrs. Tomas presents with altered mental status hypoxia. She required mechanical ventilation for oxygenation and airway control. Initially was not moving her right side. With oxygen supplementation she began to move both of her arms. She continued to be nonverbal. She did not follow commands prior to intubation. With CT chest findings and history of fever I strongly suspect COVID 19. Although she previously tested negative there is significant support of false negative test so we will retest. survey form was filled out in the ED by the ED physician through the [facility] department of health as a person under investigation for COVID 19. Patient returned 1 week ago from [place] after celebrating her mother's birthday. * COVID 19 test results came back positive has been advised to forego quarantine himself. COVID 19 Induced Pneumonia Acute hypoxic respiratory failure mild on mechanical ventilation Hypernatremia-remains elevated will increase free water. Hypertension Acute metabolic encephalopathy Right upper extremity weakness now resolved Pneumonia Hypokalemia Leukocytosis Sepsis secondary to pneumonia-with hypothermia Severe metabolic acidosis DKA-resolved Diabetes mellitus with uncontrolled blood sugar Plan 06/04: Remains on full mechanical support. Patient with respiratory alkalosis noted. Adjustment made to the ventilator to decrease the rate. Will replace potassium as hypokalemia still persist. Hypernatremia gradually improving will adjust free water. Patient's anion gap is finally closed will transition to sliding scale coverage with Lantus. Anticipate weaning trial today if patient is amendable to it. Oxygen at requirements per vent settings appears to be improving 06/05: Leukocytosis improving although patient still hypoxic on the ventilator. Awaiting COVID 19 testing results. In addition continue antibiotics for broad- spectrum coverage. Will adjust insulin for better blood sugar control. 06/06: We will increase free water to 300 cc every 4 hours. We will also obtain consultation from printing press machine operator. Otherwise continue current therapy. Also noted to have diastolic hypertension will adjust blood pressure medications. Initiated home meds. 06/07: Sodium gradually improving, will adjust free water to 350 while awaiting todays lab and printing press machine operator. Patient still with non purposeful movement. Will discuss with ID about possible trial drug Ivermectin. Adjust basal insulin to 40 units BID 06/08: ID and pulmonary considering trial of the new medication ivermectin as patient's inflammatory markers went back up. Sodium mildly elevated. In addition to blood sugar. Discontinued D5 water which could be leading to elevated blood sugar. Will adjust free water to 400 every 4 hours. Nephrology following Continue intensive care monitoring. Heel Seam [employer]ber and infectious disease consult input noted EKG reviewed no evidence of atrial fibrillation will repeat. Replace potassium DKA protocol with insulin-will be discontinued f/u COVID test - pending Continue COVID isolation precautions per [facility] protocol Will likely be started on Plaquenil and azithromycin but will defer to ID physician Obtain serial Ferritin, LDH, D-Dimer, CRP every 48h Empiric antibiotic coverage, obtain blood cultures and urine cultures and sputum cultures. Wean from vent as tolerated defer to visual effects editor We will monitor EKG for any visualization of the atrial fibrillation. If persist will obtain cardiology consult. DVT and GI prophylaxis The high probability of a clinically significant, sudden or life threatening deterioration of the [pulmonary, neuro,] system(s) required my full and direct attention, intervention and personal management. The aggregate critical care time was [35] minutes. This time is in addition to time spent performing reported procedures but includes the following: [x] Data Review and interpretation [x] Patient assessment and monitoring of vital signs [x] Documentation [x] Medication orders and management History Interval history: Patient seen and examined remains on the vent. Deteriorated slightly today. Went back on full support. Hospitalist Physical - Physical exam Narrative exam: VITAL SIGNS: Reviewed. limited exam due to limited COVID19 PPE GENERAL: The patient appears normally developed, sedated and intubated vital signs as documented. HEAD: No signs of head trauma. EYES: Pupils are equal. Unable to examine EARS: Unable to examine MOUTH: Oropharynx is normal. ET tube in place NECK: No adenopathy, no JVD. CHEST: Chest with clear breath sounds bilaterally. No wheezes, rales, or rhonchi. CARDIAC: Regular rate and rhythm. S1 and S2, without murmurs, gallops, or rubs. VASCULAR: No Edema. Peripheral pulses normal and equal in all extremities. ABDOMEN: Soft, non tender and non distended. No rebound or guarding, and no masses palpated. Bowel Sounds normal. MUSCULOSKELETAL: Per ED documentation was moving left arm but not the right arm.. Extremities without clubbing, cyanosis or edema. NEUROLOGIC EXAM: Intubated and sedated PSYCHIATRIC: Unable to examine SKIN: detail exam as documented in skin assessment - Constitutional Vitals: Temp Pulse Resp BP Pulse Ox 97.6 F 83 23 140/91 97 06/09/19 16:00 06/09/19 16:00 06/09/19 16:00 06/09/19 16:00 06/09/19 16:00 MACK score - Mack Score Age > 65: (0) No 3 or more CAD Risk Factors: (1) Yes 2 or more Angina events in past 24 hrs: (0) No Known CAD with more than 50% Stenosis: (0) No Elevated Cardiac Markers: (0) No ST Deviation Greater than 0.5mm: (0) No Results - Labs CBC & Chem 7: 06/09/19 07:34 06/09/19 07:34 Labs: Laboratory Last Values WBC 14.2 K/mm3 (4.5-11.0) H 06/09/19 07:34 RBC 4.74 M/mm3 (3.65-5.03) 06/09/19 07:34 Hgb 12.9 gm/dl (10.1-14.3) 06/09/19 07:34 Hct 40.5 % (30.3-42.9) 06/09/19 07:34 MCV 86 fl (79-97) 06/09/19 07:34 MCH 27 pg (28-32) L 06/09/19 07:34 MCHC 32 % (30-34) 06/09/19 07:34 RDW 14.8 % (13.2-15.2) 06/09/19 07:34 Plt Count 217 K/mm3 (140-440) 06/09/19 07:34 Lymph % (Auto) Movable Bulkhead Installer 06/03/19 11:51 [place] % (Auto) Movable Bulkhead Installer 06/03/19 11:51 Eos % (Auto) Movable Bulkhead Installer 06/03/19 11:51 Baso % (Auto) Movable Bulkhead Installer 06/03/19 11:51 Lymph # Movable Bulkhead Installer 06/03/19 11:51 [place] # Movable Bulkhead Installer 06/03/19 11:51 Eos # Movable Bulkhead Installer 06/03/19 11:51 Baso # Movable Bulkhead Installer 06/03/19 11:51 Add Manual Diff Complete 06/04/19 07:00 Total Counted 100 06/04/19 07:00 Seg Neutrophils % Movable Bulkhead Installer 06/04/19 07:00 Seg Neuts % (Manual) 72.0 % (40.0-70.0) H 06/04/19 07:00 Band Neutrophils % 20.0 % 06/04/19 07:00 Lymphocytes % (Manual) 6.0 % (13.4-35.0) L 06/04/19 07:00 Reactive Lymphs % (Man) 0 % 06/04/19 07:00 Monocytes % (Manual) 2.0 % (0.0-7.3) 06/04/19 07:00 Eosinophils % (Manual) 0 % (0.0-4.3) 06/04/19 07:00 Basophils % (Manual) 0 % (0.0-1.8) 06/04/19 07:00 Metamyelocytes % 0 % 06/04/19 07:00 Myelocytes % 0 % 06/04/19 07:00 Promyelocytes % 0 % 06/04/19 07:00 Blast Cells % 0 % 06/04/19 07:00 Nucleated RBC % Not Reportable 06/04/19 07:00 Seg Neutrophils # Movable Bulkhead Installer 06/03/19 11:51 Seg Neutrophils # Man 9.6 K/mm3 (1.8-7.7) H 06/04/19 07:00 Band Neutrophils # 2.7 K/mm3 06/04/19 07:00 Lymphocytes # (Manual) 0.8 K/mm3 (1.2-5.4) L 06/04/19 07:00 Abs React Lymphs (Man) 0.0 K/mm3 06/04/19 07:00 Monocytes # (Manual) 0.3 K/mm3 (0.0-0.8) 06/04/19 07:00 Eosinophils # (Manual) 0.0 K/mm3 (0.0-0.4) 06/04/19 07:00 Basophils # (Manual) 0.0 K/mm3 (0.0-0.1) 06/04/19 07:00 Metamyelocytes # 0.0 K/mm3 06/04/19 07:00 Myelocytes # 0.0 K/mm3 06/04/19 07:00 Promyelocytes # 0.0 K/mm3 06/04/19 07:00 Blast Cells # 0.0 K/mm3 06/04/19 07:00 WBC Morphology Not Reportable 06/04/19 07:00 Hypersegmented Neuts Not Reportable 06/04/19 07:00 Hyposegmented Neuts Not Reportable 06/04/19 07:00 Hypogranular Neuts Not Reportable 06/04/19 07:00 Smudge Cells Not Reportable 06/04/19 07:00 Toxic Granulation Not Reportable 06/04/19 07:00 Toxic Vacuolation Not Reportable 06/04/19 07:00 Dohle Bodies Not Reportable 06/04/19 07:00 Pelger-Huet Anomaly Not Reportable 06/04/19 07:00 Stephanie Rods Not Reportable 06/04/19 07:00 Platelet Estimate Consistent w auto 06/04/19 07:00 Clumped Platelets Not Reportable 06/04/19 07:00 Plt Clumps, EDTA Not Reportable 06/04/19 07:00 Large Platelets Not Reportable 06/04/19 07:00 Giant Platelets Not Reportable 06/04/19 07:00 Platelet Satelliting Not Reportable 06/04/19 07:00 Plt Morphology Comment Not Reportable 06/04/19 07:00 RBC Morphology Normal 06/04/19 07:00 Dimorphic RBCs Not Reportable 06/04/19 07:00 Polychromasia Not Reportable 06/04/19 07:00 Hypochromasia Not Reportable 06/04/19 07:00 Poikilocytosis Not Reportable 06/04/19 07:00 Anisocytosis Not Reportable 06/04/19 07:00 Microcytosis Not Reportable 06/04/19 07:00 Macrocytosis Not Reportable 06/04/19 07:00 Spherocytes Not Reportable 06/04/19 07:00 Pappenheimer Bodies Not Reportable 06/04/19 07:00 Sickle Cells Not Reportable 06/04/19 07:00 Target Cells Not Reportable 06/04/19 07:00 Tear Drop Cells Not Reportable 06/04/19 07:00 Ovalocytes Not Reportable 06/04/19 07:00 Helmet Cells Not Reportable 06/04/19 07:00 [place] Bodies Not Reportable 06/04/19 07:00 [place] Rings Not Reportable 06/04/19 07:00 Jessica Cells Not Reportable 06/04/19 07:00 Bite Cells Not Reportable 06/04/19 07:00 Crenated Cell Not Reportable 06/04/19 07:00 Elliptocytes Not Reportable 06/04/19 07:00 Acanthocytes (Spur) Not Reportable 06/04/19 07:00 Rouleaux Not Reportable 06/04/19 07:00 Hemoglobin C Crystals Not Reportable 06/04/19 07:00 Schistocytes Not Reportable 06/04/19 07:00 Malaria parasites Not Reportable 06/04/19 07:00 Elias Bodies Not Reportable 06/04/19 07:00 Hem Pathologist Commnt No 06/04/19 07:00 D-Dimer 991.99 ng/mlDDU (0-234) H 06/09/19 07:34 ABG pH 7.480 pH Units (7.350-7.450) H 06/09/19 04:18 ABG pCO2 45.1 mm Hg 06/09/19 04:18 ABG pO2 70.9 mm Hg (80.0-90.0) L 06/09/19 04:18 ABG HCO3 32.9 mmol/L (20.0-26.0) H 06/09/19 04:18 ABG O2 Saturation 96.3 % (95.0-99.0) 06/09/19 04:18 ABG O2 Content 13.9 (0.0-44) 06/09/19 04:18 ABG Base Excess 8.4 mmol/L (-2.0-3.0) H 06/09/19 04:18 ABG Hemoglobin 10.3 gm/dl (12.0-16.0) L 06/09/19 04:18 ABG Carboxyhemoglobin 1.1 % (0.0-5.0) 06/09/19 04:18 ABG Methemoglobin 0.4 % (0.0-1.5) 06/09/19 04:18 VBG pH 6.901 (7.320-7.420) L* 06/03/19 11:51 Oxyhemoglobin 94.8 % (95.0-99.0) L 06/09/19 04:18 FiO2 40 % 06/09/19 04:18 Sodium 153 mmol/L (137-145) H 06/09/19 07:34 Potassium 3.0 mmol/L (3.6-5.0) L 06/09/19 07:34 Chloride 113.6 mmol/L (98-107) H 06/09/19 07:34 Carbon Dioxide 28 mmol/L (22-30) 06/09/19 07:34 Anion Gap 14 mmol/L 06/09/19 07:34 BUN 26 mg/dL (7-17) H 06/09/19 07:34 Creatinine 0.5 mg/dL (0.7-1.2) L 06/09/19 07:34 Estimated GFR > 60 ml/min 06/09/19 07:34 BUN/Creatinine Ratio 52 % 06/09/19 07:34 Glucose 306 mg/dL (65-100) H 06/09/19 07:34 POC Glucose 264 (70-105) H 06/09/19 05:35 Hemoglobin A1c 9.6 % (4-6) H 06/03/19 16:03 Lactic Acid 1.90 mmol/L (0.7-2.0) 06/03/19 21:32 Calcium 9.4 mg/dL (8.4-10.2) 06/09/19 07:34 Phosphorus 2.20 mg/dL (2.5-4.5) L 06/08/19 09:33 Magnesium 2.60 mg/dL (1.7-2.3) H 06/08/19 09:33 Ferritin 1078.0 ng/mL (13.0-400.0) H 06/09/19 07:34 Total Bilirubin 0.40 mg/dL (0.1-1.2) 06/08/19 09:33 AST 31 units/L (5-40) 06/08/19 09:33 ALT 29 units/L (7-56) 06/08/19 09:33 Alkaline Phosphatase 131 units/L (35-129) H 06/08/19 09:33 Lactate Dehydrogenase 411 units/L (91-180) H 06/09/19 07:34 Troponin T < 0.010 ng/mL (0.00-0.029) 06/03/19 11:51 C-Reactive Protein 6.00 mg/dL (0.00-1.30) H 06/09/19 07:34 Total Protein 6.1 g/dL (6.3-8.2) L 06/08/19 09:33 Albumin 2.1 g/dL (3.9-5) L 06/08/19 09:33 Albumin/Globulin Ratio 0.5 % 06/08/19 09:33 Triglycerides 304 mg/dL (2-149) H 06/09/19 07:34 Cholesterol 250 mg/dL (50-199) H 06/03/19 19:00 LDL Cholesterol Direct TNR 06/03/19 19:00 HDL Cholesterol 46 mg/dL (40-59) 06/03/19 19:00 Cholesterol/HDL Ratio 5.43 % 06/03/19 19:00 Procalcitonin 0.26 ng/mL (<0.15) 06/09/19 07:34 Urine Color Yellow (Yellow) 06/03/19 11:48 Urine Turbidity Clear (Clear) 06/03/19 11:48 Urine pH 6.0 (5.0-7.0) 06/03/19 11:48 Ur Specific [place] 1.026 (1.003-1.030) 06/03/19 11:48 Urine Protein 100 mg/dl mg/dL (Negative) 06/03/19 11:48 Urine Glucose (UA) >=500 mg/dL (Negative) 06/03/19 11:48 Urine Ketones 80 mg/dL (Negative) 06/03/19 11:48 Urine Blood Mod (Negative) 06/03/19 11:48 Urine Nitrite Neg (Negative) 06/03/19 11:48 Urine Bilirubin Neg (Negative) 06/03/19 11:48 Urine Urobilinogen < 2.0 mg/dL (<2.0) 06/03/19 11:48 Ur Leukocyte Esterase Neg (Negative) 06/03/19 11:48 Urine WBC (Auto) 1.0 /HPF (0.0-6.0) 06/03/19 11:48 Urine RBC (Auto) 2.0 /HPF (0.0-6.0) 06/03/19 11:48 Granular Casts 4 /LPF 06/03/19 11:48 Urine Mucus Few /HPF 06/03/19 11:48 Urine Osmolality 755 Mosm/kg 06/07/19 17:00 Urine Creatinine 37.4 mg/dL (0.1-20.0) H 06/03/19 11:48 Urine Microalbumin 65.1 mg/dL (0.1-34.0) H 06/03/19 11:48 Microalb/Creat Ratio 1740.6 ug/mg 06/03/19 11:48 Urine Sodium 130 mmol/L 06/07/19 17:00 Urine Chloride 172.4 mmolL (110-250) 06/07/19 17:00 Urine HCG, Qual Negative (Negative) 06/03/19 11:48 Vancomycin Trough 4.2 ug/mL (5.0-20.0) L 06/05/19 21:00 Salicylates < 0.3 mg/dL (2.8-20.0) L 06/03/19 11:51 Urine Opiates Screen Presumptive negative 06/03/19 11:48 Urine Methadone Screen Presumptive negative 06/03/19 11:48 Acetaminophen < 5.0 ug/mL (10.0-30.0) L 06/03/19 11:51 Ur Barbiturates Screen Presumptive negative 06/03/19 11:48 Ur Phencyclidine Scrn Presumptive negative 06/03/19 11:48 Ur Amphetamines Screen Presumptive negative 06/03/19 11:48 U Benzodiazepines Scrn Presumptive negative 06/03/19 11:48 Urine Cocaine Screen Presumptive negative 06/03/19 11:48 U Marijuana (THC) Screen Presumptive negative 06/03/19 11:48 Drugs of Abuse Note Disclamer 06/03/19 11:48 Plasma/Serum Alcohol < 0.01 % (0-0.07) 06/03/19 11:51 Hepatitis A IgM Ab Non-reactive (NonReactive) 06/04/19 08:19 Hep Bs Antigen Non-reactive (Negative) 06/04/19 08:19 Hep B Core IgM Ab Non-reactive (NonReactive) 06/04/19 08:19 Hepatitis C Antibody Non-reactive (NonReactive) 06/04/19 08:19 Influenza A (Rapid) Negative (Negative) 06/03/19 Unknown Influenza B (Rapid) Negative (Negative) 06/03/19 Unknown Microbiology: Microbiology 06/03/19 Unknown Peripheral/Venous Blood Culture - Preliminary Alves/IV: Voiding Method External Female Catheter IV Catheter Type [Right Hand] INT / Saline Lock IV Catheter Type [Left Hand] INT / Saline Lock IV Catheter Type [Right INT / Saline Lock Antecubital] IV Catheter Type [Left Peripheral IV Antecubital] Active Medications - Current Medications Current Medications: Generic Name Dose Route Start Last Admin Trade Name Freq PRN Reason Stop Dose Admin Albuterol 2.5 mg 06/03/19 13:57 Proventil IH Q3HRT PRN Shortness Of Breath Lipase/Protease/Amylase 1 each 06/05/19 09:[address] 10,500 Unit FEEDTUBE PRN PRN For Clogged Feeding Tube Dextrose 50 ml 06/03/19 13:57 D50w (25gm) Syringe IV Q30MIN PRN Hypoglycemia Protocol Famotidine 20 mg 06/06/19 10:00 06/09/19 10:12 Pepcid PO 20 mg BID JOSE ROBERTO Administration Fentanyl 25 mcg 06/09/19 11:30 Sublimaze IV Q4H PRN AGITATION/ANXIETY Heparin Sodium (Porcine) 5,000 unit 06/03/19 14:15 06/09/19 10:13 Heparin SUB-Q 5,000 unit Q12HR JOSE ROBERTO Administration Hydralazine HCl 10 mg 06/07/19 08:42 06/08/19 14:05 Apresoline IV 10 mg Q4HR PRN Administration Hypertension Hydrochlorothiazide 12.5 mg 06/07/19 10:00 06/09/19 10:12 Hctz PO 12.5 mg QDAY JOSE ROBERTO Administration Hydrophilic Ointment 1 applic 06/03/19 11:02 Vaseline Lip Therapy TP Q2HR PRN Dry Lips Cefepime HCl 2 gm in 100 mls @ 200 mls/hr 06/03/19 22:00 06/09/19 10:13 Cefepime/Ns 2 Gm/100 Ml IV 06/09/19 21:59 200 mls/hr Q12HR JOSE ROBERTO Administration Protocol Metronidazole 500 mg in 100 mls @ 100 mls/hr 06/04/19 09:00 06/09/19 14:26 Flagyl 500 Mg/100 Ml IV 06/10/19 08:59 100 mls/hr Q8HR JOSE ROBERTO Administration Protocol Insulin Glargine 50 units 06/09/19 22:00 Lantus SUB-Q BID JOSE ROBERTO Insulin Human Regular 0 units 06/05/19 09:00 06/09/19 12:52 Humulin R SUB-Q 4 units Q6HR JOSE ROBERTO Administration Protocol Insulin Human Regular 10 units 06/09/19 12:00 06/09/19 12:21 Humulin R SUB-Q 10 units Q6HR JOSE ROBERTO Administration Losartan Potassium 50 mg 06/07/19 10:00 06/09/19 10:12 Cozaar PO 50 mg QDAY JOSE ROBERTO Administration Multi-Ingred Cream/Lotion/Oil/Oint 1 applic 06/03/19 11:02 Artificial Tears Ophth Oint OU Q4HR PRN Dry Eye(s) Quetiapine Fumarate 100 mg 06/08/19 22:00 06/08/19 21:42 Seroquel PO 100 mg QHS JOSE ROBERTO Administration Senna 8.6 mg 06/03/19 22:00 06/09/19 10:12 Senokot PO 8.6 mg BID JOSE ROBERTO Administration Simple Syrup 15 ml 06/05/19 09:59 Simple Syrup FEEDTUBE PRN PRN Hypoglycemia Simple Syrup 30 ml 06/05/19 09:59 Simple Syrup FEEDTUBE PRN PRN Hypoglycemia Sodium Bicarbonate 325 mg 06/05/19 09:59 Sodium Bicarbonate FEEDTUBE PRN PRN For Clogged Feeding Tube Sodium Chloride 10 ml 06/03/19 22:00 06/09/19 10:00 Sodium Chloride Flush Syringe 10 Ml IV 10 ml BID JOSE ROBERTO Administration Sodium Chloride 10 ml 06/03/19 13:57 Sodium Chloride Flush Syringe 10 Ml IV PRN PRN LINE FLUSH Nutrition/Malnutrition Assess - Dietary Evaluation Nutrition/Malnutrition Findings: Nutrition Notes Start: 06/04/19 08:30 Freq: Status: Active Protocol: Document 06/08/19 09:24 LM (Rec: 06/08/19 09:41 LM [id number]) Nutrition Notes Initial or Follow up Reassessment Current Diagnosis Diabetes,Sepsis,Hypertension, Respiratory Failure, Hyperlipidemia Other Pertinent Diagnosis COVID-19 positive, Pneu, metabolic encephalopathy Current Diet Vital AF 1,2 at 60ml/hr Labs/Tests POC glu 291 4/5 Na 161 K 3.1 Pertinent Medications Humulin Propofol at 2.346ml/hr (62 kcal) Height 5 ft 6 in Weight 75.1 kg [place] Body Weight (kg) 59.09 BMI 26.7 Weight Status Overweight Subjective/Other Information Per RN pt tolerating TF at goal. Na still high, will adjust flush. Percent of energy/protein needs met: 100%/100% Burn Absent Trauma Absent Current % PO Negligible Minimum of two criteria No physical signs of malnutrition #1 Nutrition Diagnosis Inadequate oral intake Diagnosis Progress(for reassessment Continues documentation) Is patient on ventilator? Yes Is Patient Ambulatory and/or Out of Bed No REE-([facility]-confined to bed) 9026.912 Calculation Used for Recommendations [facility] Additional Notes Protein: 90-150g (1.2-2g/kg) Fluid: 1 ml/kcal Nutrition Intervention Change Diet Order: Continue TF Nutrition Support: Vital AF 1.2 at 60 ml/hr Flush 250 ml q4h for hypernatremia Flush 100 ml q4h once hypernatremia resolves Kcal 1,728 Protein (gm) 108 Fluid (mL) 1,168 Goal #1 TF tolerance Goal #2 <eet at least 80% of energy and protein needs via TF Anticipated Discharge Needs: unable to determine at this time Follow-Up By: 06/12/19 Additional Comments F/U for TF tolerance/Na
[2019-06-09 19:54] LABS: BUN/Creatinine Ratio 50; Blood Urea Nitrogen 20 mg/dL (7-17); Calcium 9.4 mg/dL (8.4-10.2); Hemolysis Index 41
[2019-06-09] MEDS: QUEtiapine 100 MG TAB PO SCH (21:52)
[2019-06-09] MEDS: INSULIN GLARGINE 100 UNITS/ML SUB-Q SCH (21:52)
[2019-06-10] MEDS: INSULIN REGULAR, HUMAN 100 UNITS/1 ML SUB-Q SCH ×8 (00:05→18:16)
--- NOTE | 2019-06-10 02:42 | XRay Report ---
CHEST 1 VIEW INDICATION / CLINICAL INFORMATION: follow up respiratory failure. COMPARISON: 06/09/2019 FINDINGS: SUPPORT DEVICES: Stable, satisfactory device positioning. HEART / MEDIASTINUM: No significant abnormality. LUNGS / PLEURA: Bibasilar opacities persist with little significant change. No pneumothorax. ADDITIONAL FINDINGS: No significant additional findings. IMPRESSION: 1. Stable bilateral lower lung disease. Signer Name: Ar Das MD Signed: 06/10/2019 2:38 AM Workstation Name: [id number]
[2019-06-10 04:29] LABS: ABG Base Excess 6.9 mmol/L (-2.0-3.0); ABG HCO3 31.3 mmol/L (20.0-26.0); ABG Methemoglobin 0.5 % (0.0-1.5); ABG Oxygen Saturation 94.5 % (95.0-99.0); ABG PCO2 43.8 mm Hg; ABG PH 7.472 pH Units (7.350-7.450)
[2019-06-10] MEDS: metroNIDAZOLE/NS 500 MG/100 ML 500 MG/100 ML BAG IV SCH (06:22)
[2019-06-10 10:00] LABS: Hematocrit 42.7 % (30.3-42.9); Hemoglobin 13.6 gm/dl (10.1-14.3); Mean Corpuscular HGB Conc 32 % (30-34); Mean Corpuscular Volume 87 fl (79-97); Red Blood Count 4.92 M/mm3 (3.65-5.03); Red Cell Distribution Width 14.6 % (13.2-15.2)
--- NOTE | 2019-06-10 10:00 | Progress Note ---
Assessment and Plan - Patient Problems (1) Hypernatremia Current Visit: Yes Status: Acute Plan to address problem: Likely in the setting of severe dehydration that can be commonly seen in DKA. Agree with current free water replacement, which now we are utilizing free water flushed. Serum sodium levels are showing steady improvement. Will continue to monitor. (2) Diabetic ketoacidosis Current Visit: Yes Status: Acute Plan to address problem: Continue current treatment pre protocol. She has been transitioned off insulin regimen and her anion gap has appropriately closed. DM management per primary attending (3) Acute encephalopathy Current Visit: Yes Status: Acute Plan to address problem: Possibly in the setting of hypernatremia and DKA. Will continue to monitor. (4) Acute respiratory failure with hypoxia Current Visit: Yes Status: Acute Plan to address problem: Management per pulmonology. (5) Suspected COVID-19 virus infection Current Visit: Yes Status: Acute Plan to address problem: Per hospitalist note, COVID-19 (+). Follow up further recommendations per ID. (6) Hypertension Current Visit: No Status: Chronic Qualifiers: Hypertension type: essential hypertension Qualified Code(s): I10 - Essential (primary) hypertension Plan to address problem: Will monitor on current regimen. (7) Hypokalemia Current Visit: Yes Status: Acute Plan to address problem: Replete per protocol. Subjective Date of service: 06/10/19 Principal diagnosis: Ac hypoxemic resp failure; Bob. PNA; PUI CVOVID-19; DKA; Severe sepsis Interval history: Remains intubated. Pending COVID-19 results. Her hypernatremia is improving with appropriate free water replacement. Patient is receiving free water flushes at this time. Discussed with primary attending. COVID19: Positive Objective - Vital Signs Vital signs: Vital Signs - 12hr 06/09/19 06/09/19 06/09/19 22:00 22:16 22:30 Temperature Pulse Rate 76 96 H 93 H Pulse Rate [ From Monitor] Respiratory 24 22 21 Rate Blood Pressure 129/80 129/80 129/80 O2 Sat by Pulse 94 95 95 Oximetry 06/09/19 06/09/19 06/09/19 22:46 23:00 23:16 Temperature Pulse Rate 87 84 96 H Pulse Rate [ From Monitor] Respiratory 20 25 H 22 Rate Blood Pressure 129/80 136/82 136/82 O2 Sat by Pulse 94 95 95 Oximetry 06/09/19 06/09/19 06/09/19 23:30 23:31 23:37 Temperature 98 F Pulse Rate 91 H 92 H Pulse Rate [ From Monitor] Respiratory 22 Rate Blood Pressure 136/82 136/82 O2 Sat by Pulse 94 95 Oximetry 06/09/19 06/09/19 06/10/19 23:40 23:46 00:00 Temperature Pulse Rate 89 91 H 88 Pulse Rate [ 88 From Monitor] Respiratory 22 19 20 Rate Blood Pressure 136/82 136/82 104/64 O2 Sat by Pulse 95 95 95 Oximetry 06/10/19 06/10/19 06/10/19 00:16 00:30 00:46 Temperature Pulse Rate 89 88 91 H Pulse Rate [ From Monitor] Respiratory 20 19 19 Rate Blood Pressure 104/64 104/64 104/64 O2 Sat by Pulse 96 96 97 Oximetry 06/10/19 06/10/19 06/10/19 01:00 01:16 01:30 Temperature Pulse Rate 89 82 83 Pulse Rate [ From Monitor] Respiratory 22 19 19 Rate Blood Pressure 115/77 115/77 115/77 O2 Sat by Pulse 97 96 95 Oximetry 06/10/19 06/10/19 06/10/19 01:46 02:00 02:16 Temperature Pulse Rate 83 85 78 Pulse Rate [ From Monitor] Respiratory 17 19 18 Rate Blood Pressure 115/77 126/84 126/84 O2 Sat by Pulse 95 98 95 Oximetry 06/10/19 06/10/19 06/10/19 02:30 02:46 03:00 Temperature Pulse Rate 81 85 83 Pulse Rate [ From Monitor] Respiratory 23 17 20 Rate Blood Pressure 126/84 126/84 100/63 O2 Sat by Pulse 96 96 97 Oximetry 06/10/19 06/10/19 06/10/19 03:16 03:30 03:46 Temperature Pulse Rate 87 85 88 Pulse Rate [ From Monitor] Respiratory 20 22 20 Rate Blood Pressure 100/63 100/63 100/63 O2 Sat by Pulse 95 96 97 Oximetry 06/10/19 06/10/19 06/10/19 04:00 04:16 04:30 Temperature 98.2 F Pulse Rate 87 83 88 Pulse Rate [ 83 From Monitor] Respiratory 20 20 19 Rate Blood Pressure 92/53 92/53 92/53 O2 Sat by Pulse 96 95 95 Oximetry 06/10/19 06/10/19 06/10/19 04:46 04:55 05:00 Temperature Pulse Rate 87 86 84 Pulse Rate [ From Monitor] Respiratory 16 18 Rate Blood Pressure 92/53 100/60 O2 Sat by Pulse 96 96 96 Oximetry 06/10/19 06/10/19 06/10/19 05:16 05:30 05:46 Temperature Pulse Rate 87 87 91 H Pulse Rate [ From Monitor] Respiratory 18 19 20 Rate Blood Pressure 100/60 100/60 100/60 O2 Sat by Pulse 97 100 99 Oximetry 06/10/19 06/10/19 06/10/19 06:00 06:16 06:30 Temperature Pulse Rate 89 86 89 Pulse Rate [ From Monitor] Respiratory 21 20 18 Rate Blood Pressure 93/52 93/52 93/52 O2 Sat by Pulse 98 95 96 Oximetry 06/10/19 06/10/19 06/10/19 06:46 07:00 07:16 Temperature Pulse Rate 91 H 86 81 Pulse Rate [ From Monitor] Respiratory 18 18 20 Rate Blood Pressure 93/52 86/50 86/50 O2 Sat by Pulse 97 96 96 Oximetry 06/10/19 06/10/19 06/10/19 07:30 07:46 08:00 Temperature 98.5 F Pulse Rate 90 88 84 Pulse Rate [ From Monitor] Respiratory 20 21 18 Rate Blood Pressure 86/50 86/50 94/50 O2 Sat by Pulse 97 94 92 Oximetry 06/10/19 06/10/19 06/10/19 08:16 08:30 08:36 Temperature Pulse Rate 90 89 89 Pulse Rate [ From Monitor] Respiratory 22 23 Rate Blood Pressure 110/74 114/66 93/52 O2 Sat by Pulse 93 93 98 Oximetry 06/10/19 06/10/19 06/10/19 08:46 09:00 09:16 Temperature Pulse Rate 92 H 86 86 Pulse Rate [ From Monitor] Respiratory 21 19 22 Rate Blood Pressure 94/50 89/53 89/53 O2 Sat by Pulse 92 93 93 Oximetry 06/10/19 09:30 Temperature Pulse Rate 82 Pulse Rate [ From Monitor] Respiratory 18 Rate Blood Pressure 87/54 O2 Sat by Pulse 94 Oximetry - General Appearance General appearance: well-developed, intubated EENT: ATNC Neck: no JVD Respiratory: Present: Decreased Breath Sounds Cardiology: regular Gastrointestinal: normal Integumentary: no rash Musculoskeletal: deferred - Lab 06/09/19 07:34 06/09/19 19:22 Most recent lab results ABG pH 7.472 pH Units (7.350-7.450) H 06/10/19 04:05 ABG pCO2 43.8 mm Hg 06/10/19 04:05 ABG pO2 63.0 mm Hg (80.0-90.0) L 06/10/19 04:05 ABG HCO3 31.3 mmol/L (20.0-26.0) H 06/10/19 04:05 ABG O2 Saturation 94.5 % (95.0-99.0) L 06/10/19 04:05 Calcium 9.4 mg/dL (8.4-10.2) 06/09/19 19:22 Phosphorus 2.20 mg/dL (2.5-4.5) L 06/08/19 09:33 Magnesium 2.60 mg/dL (1.7-2.3) H 06/08/19 09:33 Urine Creatinine 37.4 mg/dL (0.1-20.0) H 06/03/19 11:48 Urine Sodium 130 mmol/L 06/07/19 17:00 - Allied health notes Allied health notes reviewed: nursing Medications & Allergies - Medications Allergies/Adverse Reactions: Allergies No Known Allergies Allergy (Verified 01/05/15 09:29) Home Medications: Home Medications Medication Instructions Recorded Confirmed Last Taken Type Albuterol INH(or & Nicu Only) 2 puff IH QID PRN 03/13/14 01/05/15 01/04/15 History [ProAir HFA Inhaler] Metformin HCl [metFORMIN ER] 500 mg PO QDAY 03/13/14 01/05/15 01/04/15 History Glimepiride [Amaryl] 1 mg PO QAM 01/05/15 01/05/15 01/04/15 History Losartan/Hydrochlorothiazide 1 tab PO QDAY 01/05/15 01/05/15 01/04/15 History [Hyzaar 50-12.5 TAB] Simvastatin [Zocor TAB] 10 mg PO QHS 01/05/15 01/05/15 01/04/15 History Pantoprazole [Protonix TAB] 40 mg PO QDAY #30 tablet 01/06/15 Unknown Rx Cyclobenzaprine [Flexeril] 10 mg PO QHS PRN #30 tablet 07/04/18 Unknown Rx Ibuprofen [Motrin] 800 mg PO Q8HR #30 tablet 07/04/18 Unknown Rx Active Medications: Generic Name Dose Route Start Last Admin Trade Name Freq PRN Reason Stop Dose Admin Albuterol 2.5 mg 06/03/19 13:57 Proventil IH Q3HRT PRN Shortness Of Breath Lipase/Protease/Amylase 1 each 06/05/19 09:59 Pancreaze 10,500 Unit FEEDTUBE PRN PRN For Clogged Feeding Tube Dextrose 50 ml 06/03/19 13:57 D50w (25gm) Syringe IV Q30MIN PRN Hypoglycemia Protocol Famotidine 20 mg 06/06/19 10:00 06/09/19 21:52 Pepcid PO 20 mg BID JOSE ROBERTO Administration Fentanyl 25 mcg 06/09/19 11:30 Sublimaze IV Q4H PRN AGITATION/ANXIETY Heparin Sodium (Porcine) 5,000 unit 06/03/19 14:15 06/09/19 21:52 Heparin SUB-Q 5,000 unit Q12HR JOSE ROBERTO Administration Hydralazine HCl 10 mg 06/07/19 08:42 06/08/19 14:05 Apresoline IV 10 mg Q4HR PRN Administration Hypertension Hydrochlorothiazide 12.5 mg 06/07/19 10:00 06/09/19 10:12 Hctz PO 12.5 mg QDAY JOSE ROBERTO Administration Hydrophilic Ointment 1 applic 06/03/19 11:02 Vaseline Lip Therapy TP Q2HR PRN Dry Lips Insulin Glargine 50 units 06/09/19 22:00 06/09/19 21:52 Lantus SUB-Q 50 units BID JOSE ROBERTO Administration Insulin Human Regular 0 units 06/05/19 09:00 06/10/19 06:22 Humulin R SUB-Q 3 units Q6HR JOSE ROBERTO Administration Protocol Insulin Human Regular 10 units 06/09/19 12:00 06/10/19 06:22 Humulin R SUB-Q 10 units Q6HR JOSE ROBERTO Administration Losartan Potassium 50 mg 06/07/19 10:00 06/09/19 10:12 Cozaar PO 50 mg QDAY JOSE ROBERTO Administration Multi-Ingred Cream/Lotion/Oil/Oint 1 applic 06/03/19 11:02 Artificial Tears Ophth Oint OU Q4HR PRN Dry Eye(s) Quetiapine Fumarate 50 mg 06/10/19 22:00 Seroquel PO QHS JOSE ROBERTO Senna 8.6 mg 06/03/19 22:00 06/09/19 21:52 Senokot PO 8.6 mg BID JOSE ROBERTO Administration Simple Syrup 15 ml 06/05/19 09:59 Simple Syrup FEEDTUBE PRN PRN Hypoglycemia Simple Syrup 30 ml 06/05/19 09:59 Simple Syrup FEEDTUBE PRN PRN Hypoglycemia Sodium Bicarbonate 325 mg 06/05/19 09:59 Sodium Bicarbonate FEEDTUBE PRN PRN For Clogged Feeding Tube Sodium Chloride 10 ml 06/03/19 22:00 06/09/19 21:54 Sodium Chloride Flush Syringe 10 Ml IV 10 ml BID JOSE ROBERTO Administration Sodium Chloride 10 ml 06/03/19 13:57 Sodium Chloride Flush Syringe 10 Ml IV PRN PRN LINE FLUSH
[2019-06-10] MEDS: INSULIN GLARGINE 100 UNITS/ML SUB-Q SCH ×2 (10:16→21:39)
[2019-06-10] MEDS: HEPARIN 5,000 UNIT/1 ML VIAL SUB-Q SCH ×2 (10:17→21:38)
[2019-06-10] MEDS: FAMOTIDINE 20 MG TAB PO SCH ×2 (10:17→21:37)
[2019-06-10] MEDS: SENNOSIDES 8.6 MG TAB PO SCH ×2 (10:17→21:38)
[2019-06-10 10:18] LABS: BUN/Creatinine Ratio 50; Blood Urea Nitrogen 20 mg/dL (7-17); Calcium 9.2 mg/dL (8.4-10.2); Hemolysis Index 25
[2019-06-10] MEDS: LOSARTAN 50 MG TAB PO SCH (10:27)
[2019-06-10] MEDS: hydroCHLOROthiazide 12.5 MG CAP PO SCH (10:28)
[2019-06-10 10:48] LABS: Platelet Count 84 K/mm3 (140-440)
--- NOTE | 2019-06-10 11:21 | Progress Note ---
Assessment and Plan Sepsis secondary to pneumonia-with hypothermia Acute hypoxic respiratory failure ,orally intubated on mechanical ventilation POSITIVE COVID 19 - severe COVID pneumonia. -Transmission likely from community recent travel to [place]. - Ferritin at 1,037-->1,649-->1,319. LDH 673-->449. CRP 14-->9. Ddimer 434-->1319 DKA, treated Diabetes mellitus with uncontrolled blood sugar Acute metabolic encephalopathy, improving Pneumonia Leukocytosis Paroxysmal atrial fibrillation likely new onset Severe metabolic acidosis-improving Hypernatremia-improving Hypokalemia Oropharyngeal dysphagia, OGT in place Trial SBT today, she is more awake and alert -Continue with MVS, Lung protective strategies, monitor airway pressures -VAP bundle addressed -Continue aspiration precautions, HOB>40 -Continue daily assessment for readiness for SBT, SAT. - Monitor glycemic control, with target blood glucose 140-180 mg/dL while critically ill. -Avoid hypoglycemia - Continue to wean supplemental oxygen for target O2 sats > 90% - Goal to keep Potassium 4 and Magnesium 2 to optimize respiratory muscle function -VTE prophylaxis on heparin, if D-dimer remains persistently elevated will change to therapeutic VTE -Stress ulcer prophylaxis- Famotidine -Continue to avoid nephrotoxins, adjust all medications for CrCL and GFR -Follow up BMP and CBC in the morning - Continue bronchodilators with pulmonary hygiene - Continue prn analgesia per CPOT score - Continue to maintain of sleep-wake cycle, avoid delirium - PT/OT/ROM exercises - Continue mobility protocol and skin assessment per protocol for pressure ulcer prevention - s/p Influenza and pneumonia vaccination -Continue COVID isolation precautions per [facility] protocol -Check serial Ferritin, LDH, D-Dimer, CRP eper [facility] protocol -s/p hydroxychloroquine (total 5 days) Day 5 of 5 and zinc -Complete antibiotics today - continue other care per attending / other consultants CONDITION: CRITICAL PROGNOSIS: GUARDED CODE STATUS: FULL CODE The high probability of a clinically significant, sudden or life threatening deterioration of the [pulmonary, neurology, endocrine,] system(s) required my full and direct attention, intervention and personal management. The aggregate critical care time was [31] minutes. This time is in addition to time spent performing reported procedures but includes the following: [x] Data Review and interpretation [x] Patient assessment and monitoring of vital signs [x] Documentation [x] Medication orders and management Subjective Date of service: 06/10/19 Principal diagnosis: Ac hypoxemic resp failure; Bob. PNA; PUI CVOVID-19; DKA; Severe sepsis Interval history: Follow up for: Acute hypoxemic respiratory failure on MVS; COVID 19 pneumonia;DKA ; Acute metabolic encephalopathy; Sepsis; Fevers; SHARITA; Seen and examined. Vitals, labs, medications, chart and imaging reviewed. Resting in bed on full mechanical ventilatory support; ETT at 21 cm at the lip. No fvers overnight, more awake and alert. To start CPAP trials today COVID19: Positive Objective Vital Signs - 12hr 06/09/19 06/09/19 06/09/19 23:30 23:31 23:37 Temperature 98 F Pulse Rate 91 H 92 H Pulse Rate [ From Monitor] Respiratory 22 Rate Blood Pressure 136/82 136/82 O2 Sat by Pulse 94 95 Oximetry 06/09/19 06/09/19 06/10/19 23:40 23:46 00:00 Temperature Pulse Rate 89 91 H 88 Pulse Rate [ 88 From Monitor] Respiratory 22 19 20 Rate Blood Pressure 136/82 136/82 104/64 O2 Sat by Pulse 95 95 95 Oximetry 06/10/19 06/10/19 06/10/19 00:16 00:30 00:46 Temperature Pulse Rate 89 88 91 H Pulse Rate [ From Monitor] Respiratory 20 19 19 Rate Blood Pressure 104/64 104/64 104/64 O2 Sat by Pulse 96 96 97 Oximetry 06/10/19 06/10/19 06/10/19 01:00 01:16 01:30 Temperature Pulse Rate 89 82 83 Pulse Rate [ From Monitor] Respiratory 22 19 19 Rate Blood Pressure 115/77 115/77 115/77 O2 Sat by Pulse 97 96 95 Oximetry 06/10/19 06/10/19 06/10/19 01:46 02:00 02:16 Temperature Pulse Rate 83 85 78 Pulse Rate [ From Monitor] Respiratory 17 19 18 Rate Blood Pressure 115/77 126/84 126/84 O2 Sat by Pulse 95 98 95 Oximetry 06/10/19 06/10/19 06/10/19 02:30 02:46 03:00 Temperature Pulse Rate 81 85 83 Pulse Rate [ From Monitor] Respiratory 23 17 20 Rate Blood Pressure 126/84 126/84 100/63 O2 Sat by Pulse 96 96 97 Oximetry 0406/10/19 06/10/19 03:16 03:30 03:46 Temperature Pulse Rate 87 85 88 Pulse Rate [ From Monitor] Respiratory 20 22 20 Rate Blood Pressure 100/63 100/63 100/63 O2 Sat by Pulse 95 96 97 Oximetry 06/10/19 06/10/19 06/10/19 04:00 04:16 04:30 Temperature 98.2 F Pulse Rate 87 83 88 Pulse Rate [ 83 From Monitor] Respiratory 20 20 19 Rate Blood Pressure 92/53 92/53 92/53 O2 Sat by Pulse 96 95 95 Oximetry 06/10/19 06/10/19 06/10/19 04:46 04:55 05:00 Temperature Pulse Rate 87 86 84 Pulse Rate [ From Monitor] Respiratory 16 18 Rate Blood Pressure 92/53 100/60 O2 Sat by Pulse 96 96 96 Oximetry 06/10/19 06/10/19 06/10/19 05:16 05:30 05:46 Temperature Pulse Rate 87 87 91 H Pulse Rate [ From Monitor] Respiratory 18 19 20 Rate Blood Pressure 100/60 100/60 100/60 O2 Sat by Pulse 97 100 99 Oximetry 06/10/19 06/10/19 06/10/19 06:00 06:16 06:30 Temperature Pulse Rate 89 86 89 Pulse Rate [ From Monitor] Respiratory 21 20 18 Rate Blood Pressure 93/52 93/52 93/52 O2 Sat by Pulse 98 95 96 Oximetry 06/10/19 06/10/19 06/10/19 06:46 07:00 07:16 Temperature Pulse Rate 91 H 86 81 Pulse Rate [ From Monitor] Respiratory 18 18 20 Rate Blood Pressure 93/52 86/50 86/50 O2 Sat by Pulse 97 96 96 Oximetry 06/10/19 06/10/19 06/10/19 07:30 07:46 08:00 Temperature 98.5 F Pulse Rate 90 88 84 Pulse Rate [ From Monitor] Respiratory 20 21 18 Rate Blood Pressure 86/50 86/50 94/50 O2 Sat by Pulse 97 94 92 Oximetry 06/10/19 06/10/19 06/10/19 08:16 08:30 08:36 Temperature Pulse Rate 90 89 89 Pulse Rate [ From Monitor] Respiratory 22 23 Rate Blood Pressure 110/74 114/66 93/52 O2 Sat by Pulse 93 93 98 Oximetry 06/10/19 06/10/19 06/10/19 08:46 09:00 09:16 Temperature Pulse Rate 92 H 86 86 Pulse Rate [ From Monitor] Respiratory 21 19 22 Rate Blood Pressure 94/50 89/53 89/53 O2 Sat by Pulse 92 93 93 Oximetry 06/10/19 06/10/19 06/10/19 09:30 09:46 10:00 Temperature Pulse Rate 82 85 90 Pulse Rate [ From Monitor] Respiratory 18 22 24 Rate Blood Pressure 87/54 122/76 127/79 O2 Sat by Pulse 94 97 96 Oximetry 06/10/19 10:19 Temperature Pulse Rate 90 Pulse Rate [ From Monitor] Respiratory 28 H Rate Blood Pressure 127/79 O2 Sat by Pulse 96 Oximetry Constitutional: no acute distress, asleep, other (Atraumatic, normocephalic, no patient -ventilator dyssynchrony) Eyes: non-icteric ENT: other (OGT in place, ETT in palce) Neck: supple, no lymphadenopathy, no JVD Effort: normal Ascultation: Bilateral: clear, diminished breath sounds, rhonchi Percussion: Bilateral: not dull Cardiovascular: irregular rhythm, other (S1,S2, no murmurs) Gastrointestinal: normoactive bowel sounds, soft, non-tender, tender Integumentary: normal Extremities: no cyanosis, no edema, pulses normal, no ischemia or petechiae Neurologic: unable to assess (sedated) Psychiatric: other (sedated) CBC and BMP: 06/12/19 03:58 06/12/19 03:58 ABG, PT/INR, D-dimer: ABG ABG pH 7.472 pH Units (7.350-7.450) H 06/10/19 04:05 ABG pCO2 43.8 mm Hg 06/10/19 04:05 ABG pO2 63.0 mm Hg (80.0-90.0) L 06/10/19 04:05 ABG O2 Saturation 94.5 % (95.0-99.0) L 06/10/19 04:05 PT/INR, D-dimer D-Dimer 991.99 ng/mlDDU (0-234) H 06/09/19 07:34 Abnormal lab findings: Abnormal Labs 06/03/19 06/03/19 06/03/19 10:59 11:15 11:48 WBC RBC Hgb Hct MCH RDW Plt Count Seg Neuts % (Manual) Lymphocytes % (Manual) Monocytes % (Manual) Seg Neutrophils # Man Lymphocytes # (Manual) Monocytes # (Manual) D-Dimer ABG pH ABG pO2 ABG HCO3 ABG O2 Saturation ABG Base Excess ABG Hemoglobin VBG pH Oxyhemoglobin Sodium Potassium Chloride Carbon Dioxide BUN Creatinine Glucose POC Glucose 372 H Hemoglobin A1c Lactic Acid Calcium Phosphorus 11.70 H Magnesium 4.40 H Ferritin AST Alkaline Phosphatase Lactate Dehydrogenase C-Reactive Protein Total Protein Albumin Triglycerides Cholesterol Urine Creatinine 37.4 H Urine Microalbumin 65.1 H Vancomycin Trough Salicylates Acetaminophen 06/03/19 06/03/19 06/03/19 11:51 11:51 11:51 WBC 23.3 H RBC 6.43 H Hgb 17.7 H Hct 59.9 H* MCH RDW 17.1 H Plt Count Seg Neuts % (Manual) 71.0 H Lymphocytes % (Manual) 11.0 L Monocytes % (Manual) 8.0 H Seg Neutrophils # Man 16.5 H Lymphocytes # (Manual) Monocytes # (Manual) 1.9 H D-Dimer ABG pH ABG pO2 ABG HCO3 ABG O2 Saturation ABG Base Excess ABG Hemoglobin VBG pH Oxyhemoglobin Sodium Potassium Chloride Carbon Dioxide 4 L* BUN 41 H Creatinine 1.8 H Glucose 636 H* POC Glucose Hemoglobin A1c Lactic Acid 3.20 H* Calcium 10.9 H Phosphorus Magnesium Ferritin AST 43 H Alkaline Phosphatase 147 H Lactate Dehydrogenase 673 H C-Reactive Protein 14.70 H Total Protein 8.9 H Albumin Triglycerides Cholesterol Urine Creatinine Urine Microalbumin Vancomycin Trough Salicylates Acetaminophen 06/03/19 06/03/19 06/03/19 11:51 11:51 11:51 WBC RBC Hgb Hct MCH RDW Plt Count Seg Neuts % (Manual) Lymphocytes % (Manual) Monocytes % (Manual) Seg Neutrophils # Man Lymphocytes # (Manual) Monocytes # (Manual) D-Dimer ABG pH ABG pO2 ABG HCO3 ABG O2 Saturation ABG Base Excess ABG Hemoglobin VBG pH 6.901 L* Oxyhemoglobin Sodium Potassium Chloride Carbon Dioxide BUN Creatinine Glucose POC Glucose Hemoglobin A1c Lactic Acid Calcium Phosphorus Magnesium Ferritin AST Alkaline Phosphatase Lactate Dehydrogenase C-Reactive Protein Total Protein Albumin Triglycerides Cholesterol Urine Creatinine Urine Microalbumin Vancomycin Trough Salicylates < 0.3 L Acetaminophen < 5.0 L 06/03/19 06/03/19 06/03/19 11:51 11:51 12:34 WBC RBC Hgb Hct MCH RDW Plt Count Seg Neuts % (Manual) Lymphocytes % (Manual) Monocytes % (Manual) Seg Neutrophils # Man Lymphocytes # (Manual) Monocytes # (Manual) D-Dimer 4311.60 H ABG pH ABG pO2 ABG HCO3 ABG O2 Saturation ABG Base Excess ABG Hemoglobin VBG pH Oxyhemoglobin Sodium Potassium Chloride Carbon Dioxide BUN Creatinine Glucose POC Glucose Hemoglobin A1c Lactic Acid 5.20 H* Calcium Phosphorus Magnesium Ferritin 1037.0 H AST Alkaline Phosphatase Lactate Dehydrogenase C-Reactive Protein Total Protein Albumin Triglycerides Cholesterol Urine Creatinine Urine Microalbumin Vancomycin Trough Salicylates Acetaminophen 06/03/19 06/03/19 06/03/19 14:30 16:03 17:00 WBC RBC Hgb Hct MCH RDW Plt Count Seg Neuts % (Manual) Lymphocytes % (Manual) Monocytes % (Manual) Seg Neutrophils # Man Lymphocytes # (Manual) Monocytes # (Manual) D-Dimer ABG pH 6.880 L* ABG pO2 489.9 H ABG HCO3 7.1 L ABG O2 Saturation 99.6 H ABG Base Excess -26.1 L ABG Hemoglobin 16.2 H VBG pH Oxyhemoglobin Sodium Potassium Chloride Carbon Dioxide BUN Creatinine Glucose POC Glucose 335 H Hemoglobin A1c 9.6 H Lactic Acid Calcium Phosphorus Magnesium Ferritin AST Alkaline Phosphatase Lactate Dehydrogenase C-Reactive Protein Total Protein Albumin Triglycerides Cholesterol Urine Creatinine Urine Microalbumin Vancomycin Trough Salicylates Acetaminophen 06/03/19 06/03/19 06/03/19 18:14 18:24 19:00 WBC RBC Hgb Hct MCH RDW Plt Count Seg Neuts % (Manual) Lymphocytes % (Manual) Monocytes % (Manual) Seg Neutrophils # Man Lymphocytes # (Manual) Monocytes # (Manual) D-Dimer ABG pH 7.057 L* ABG pO2 97.2 H ABG HCO3 5.5 L ABG O2 Saturation ABG Base Excess -23.0 L ABG Hemoglobin 18.1 H VBG pH Oxyhemoglobin 94.4 L Sodium Potassium Chloride Carbon Dioxide BUN Creatinine Glucose POC Glucose 285 H Hemoglobin A1c Lactic Acid 3.40 H* Calcium Phosphorus Magnesium Ferritin AST Alkaline Phosphatase Lactate Dehydrogenase C-Reactive Protein Total Protein Albumin Triglycerides Cholesterol Urine Creatinine Urine Microalbumin Vancomycin Trough Salicylates Acetaminophen 06/03/19 06/03/19 06/03/19 19:00 19:00 19:52 WBC RBC Hgb Hct MCH RDW Plt Count Seg Neuts % (Manual) Lymphocytes % (Manual) Monocytes % (Manual) Seg Neutrophils # Man Lymphocytes # (Manual) Monocytes # (Manual) D-Dimer ABG pH ABG pO2 ABG HCO3 ABG O2 Saturation ABG Base Excess ABG Hemoglobin VBG pH Oxyhemoglobin Sodium 151 H Potassium Chloride 120.8 H Carbon Dioxide 6 L* BUN 33 H Creatinine 1.4 H Glucose 339 H POC Glucose 316 H Hemoglobin A1c Lactic Acid Calcium Phosphorus Magnesium Ferritin AST 47 H Alkaline Phosphatase 130 H Lactate Dehydrogenase C-Reactive Protein Total Protein Albumin 3.7 L Triglycerides 424 H Cholesterol 250 H Urine Creatinine Urine Microalbumin Vancomycin Trough Salicylates Acetaminophen 06/03/19 06/03/19 06/03/19 20:21 20:21 21:01 WBC RBC Hgb Hct MCH RDW Plt Count Seg Neuts % (Manual) Lymphocytes % (Manual) Monocytes % (Manual) Seg Neutrophils # Man Lymphocytes # (Manual) Monocytes # (Manual) D-Dimer ABG pH ABG pO2 ABG HCO3 ABG O2 Saturation ABG Base Excess ABG Hemoglobin VBG pH Oxyhemoglobin Sodium 153 H Potassium Chloride 121.8 H Carbon Dioxide 6 L* BUN 34 H Creatinine 1.3 H Glucose 324 H POC Glucose 245 H Hemoglobin A1c Lactic Acid 3.10 H* Calcium Phosphorus Magnesium Ferritin AST Alkaline Phosphatase Lactate Dehydrogenase C-Reactive Protein Total Protein Albumin Triglycerides Cholesterol Urine Creatinine Urine Microalbumin Vancomycin Trough Salicylates Acetaminophen 06/03/19 06/03/19 06/03/19 21:25 21:32 22:42 WBC RBC Hgb Hct MCH RDW Plt Count Seg Neuts % (Manual) Lymphocytes % (Manual) Monocytes % (Manual) Seg Neutrophils # Man Lymphocytes # (Manual) Monocytes # (Manual) D-Dimer ABG pH 7.172 L* ABG pO2 107.2 H ABG HCO3 5.2 L ABG O2 Saturation ABG Base Excess -20.5 L ABG Hemoglobin 17.3 H VBG pH Oxyhemoglobin Sodium 155 H Potassium 2.6 L* D Chloride 130.1 H Carbon Dioxide 5 L* BUN 24 H Creatinine Glucose 212 H POC Glucose 225 H Hemoglobin A1c Lactic Acid Calcium 5.8 L* D Phosphorus Magnesium Ferritin AST Alkaline Phosphatase Lactate Dehydrogenase C-Reactive Protein Total Protein Albumin Triglycerides Cholesterol Urine Creatinine Urine Microalbumin Vancomycin Trough Salicylates Acetaminophen 06/03/19 06/04/19 06/04/19 23:32 00:04 01:25 WBC RBC Hgb Hct MCH RDW Plt Count Seg Neuts % (Manual) Lymphocytes % (Manual) Monocytes % (Manual) Seg Neutrophils # Man Lymphocytes # (Manual) Monocytes # (Manual) D-Dimer ABG pH ABG pO2 ABG HCO3 ABG O2 Saturation ABG Base Excess ABG Hemoglobin VBG pH Oxyhemoglobin Sodium 151 H 151 H Potassium 1.5 L* D Chloride 139.0 H 124.7 H Carbon Dioxide 3 L* 9 L* BUN 31 H Creatinine 0.2 L D Glucose 117 H 241 H POC Glucose 231 H Hemoglobin A1c Lactic Acid Calcium 3.1 L* D Phosphorus Magnesium Ferritin AST Alkaline Phosphatase Lactate Dehydrogenase C-Reactive Protein Total Protein Albumin Triglycerides Cholesterol Urine Creatinine Urine Microalbumin Vancomycin Trough Salicylates Acetaminophen 06/04/19 06/04/19 06/04/19 01:34 02:45 03:21 WBC RBC Hgb Hct MCH RDW Plt Count Seg Neuts % (Manual) Lymphocytes % (Manual) Monocytes % (Manual) Seg Neutrophils # Man Lymphocytes # (Manual) Monocytes # (Manual) D-Dimer ABG pH ABG pO2 ABG HCO3 ABG O2 Saturation ABG Base Excess ABG Hemoglobin VBG pH Oxyhemoglobin Sodium Potassium Chloride Carbon Dioxide BUN Creatinine Glucose POC Glucose 194 H 189 H 183 H Hemoglobin A1c Lactic Acid Calcium Phosphorus Magnesium Ferritin AST Alkaline Phosphatase Lactate Dehydrogenase C-Reactive Protein Total Protein Albumin Triglycerides Cholesterol Urine Creatinine Urine Microalbumin Vancomycin Trough Salicylates Acetaminophen 06/04/19 06/04/19 06/04/19 04:50 05:07 06:27 WBC RBC Hgb Hct MCH RDW Plt Count Seg Neuts % (Manual) Lymphocytes % (Manual) Monocytes % (Manual) Seg Neutrophils # Man Lymphocytes # (Manual) Monocytes # (Manual) D-Dimer ABG pH ABG pO2 76.5 L ABG HCO3 12.9 L ABG O2 Saturation ABG Base Excess -9.0 L ABG Hemoglobin VBG pH Oxyhemoglobin Sodium Potassium Chloride Carbon Dioxide BUN Creatinine Glucose POC Glucose 200 H 164 H Hemoglobin A1c Lactic Acid Calcium Phosphorus Magnesium Ferritin AST Alkaline Phosphatase Lactate Dehydrogenase C-Reactive Protein Total Protein Albumin Triglycerides Cholesterol Urine Creatinine Urine Microalbumin Vancomycin Trough Salicylates Acetaminophen 06/04/19 06/04/19 06/04/19 07:00 07:00 07:00 WBC 13.4 H RBC 5.54 H Hgb 15.3 H Hct 46.1 H D MCH RDW Plt Count Seg Neuts % (Manual) 72.0 H Lymphocytes % (Manual) 6.0 L Monocytes % (Manual) Seg Neutrophils # Man 9.6 H Lymphocytes # (Manual) 0.8 L Monocytes # (Manual) D-Dimer ABG pH ABG pO2 ABG HCO3 ABG O2 Saturation ABG Base Excess ABG Hemoglobin VBG pH Oxyhemoglobin Sodium 158 H 156 H Potassium 2.7 L* D 2.6 L* Chloride 124.3 H 123.5 H Carbon Dioxide 11 L 11 L BUN 25 H 26 H Creatinine Glucose 192 H 190 H POC Glucose Hemoglobin A1c Lactic Acid Calcium Phosphorus Magnesium Ferritin AST 43 H Alkaline Phosphatase Lactate Dehydrogenase 590 H C-Reactive Protein 22.70 H Total Protein Albumin 2.9 L Triglycerides Cholesterol Urine Creatinine Urine Microalbumin Vancomycin Trough Salicylates Acetaminophen 06/04/19 06/04/19 06/04/19 07:00 07:00 07:14 WBC RBC Hgb Hct MCH RDW Plt Count Seg Neuts % (Manual) Lymphocytes % (Manual) Monocytes % (Manual) Seg Neutrophils # Man Lymphocytes # (Manual) Monocytes # (Manual) D-Dimer 2050.33 H ABG pH ABG pO2 ABG HCO3 ABG O2 Saturation ABG Base Excess ABG Hemoglobin VBG pH Oxyhemoglobin Sodium Potassium Chloride Carbon Dioxide BUN Creatinine Glucose POC Glucose 176 H Hemoglobin A1c Lactic Acid Calcium Phosphorus Magnesium Ferritin 941.3 H AST Alkaline Phosphatase Lactate Dehydrogenase C-Reactive Protein Total Protein Albumin Triglycerides Cholesterol Urine Creatinine Urine Microalbumin Vancomycin Trough Salicylates Acetaminophen 06/04/19 06/04/19 06/04/19 09:55 11:38 12:19 WBC RBC Hgb Hct MCH RDW Plt Count Seg Neuts % (Manual) Lymphocytes % (Manual) Monocytes % (Manual) Seg Neutrophils # Man Lymphocytes # (Manual) Monocytes # (Manual) D-Dimer ABG pH ABG pO2 ABG HCO3 ABG O2 Saturation ABG Base Excess ABG Hemoglobin VBG pH Oxyhemoglobin Sodium Potassium Chloride Carbon Dioxide BUN Creatinine Glucose POC Glucose 184 H 145 H 144 H Hemoglobin A1c Lactic Acid Calcium Phosphorus Magnesium Ferritin AST Alkaline Phosphatase Lactate Dehydrogenase C-Reactive Protein Total Protein Albumin Triglycerides Cholesterol Urine Creatinine Urine Microalbumin Vancomycin Trough Salicylates Acetaminophen 06/04/19 06/04/1920 13:35 14:29 15:06 WBC RBC Hgb Hct MCH RDW Plt Count Seg Neuts % (Manual) Lymphocytes % (Manual) Monocytes % (Manual) Seg Neutrophils # Man Lymphocytes # (Manual) Monocytes # (Manual) D-Dimer ABG pH ABG pO2 ABG HCO3 ABG O2 Saturation ABG Base Excess ABG Hemoglobin VBG pH Oxyhemoglobin Sodium 157 H Potassium 2.4 L* Chloride 121.4 H Carbon Dioxide 20 L D BUN 21 H Creatinine Glucose 176 H POC Glucose 151 H 142 H Hemoglobin A1c Lactic Acid Calcium Phosphorus Magnesium Ferritin AST Alkaline Phosphatase Lactate Dehydrogenase C-Reactive Protein Total Protein Albumin Triglycerides Cholesterol Urine Creatinine Urine Microalbumin Vancomycin Trough Salicylates Acetaminophen 06/04/19 06/04/19 06/04/19 17:14 17:51 21:45 WBC RBC Hgb Hct MCH RDW Plt Count Seg Neuts % (Manual) Lymphocytes % (Manual) Monocytes % (Manual) Seg Neutrophils # Man Lymphocytes # (Manual) Monocytes # (Manual) D-Dimer ABG pH ABG pO2 ABG HCO3 ABG O2 Saturation ABG Base Excess ABG Hemoglobin VBG pH Oxyhemoglobin Sodium Potassium Chloride Carbon Dioxide BUN Creatinine Glucose POC Glucose 200 H 159 H 143 H Hemoglobin A1c Lactic Acid Calcium Phosphorus Magnesium Ferritin AST Alkaline Phosphatase Lactate Dehydrogenase C-Reactive Protein Total Protein Albumin Triglycerides Cholesterol Urine Creatinine Urine Microalbumin Vancomycin Trough Salicylates Acetaminophen 06/04/19 06/04/19 06/04/19 22:20 22:21 23:27 WBC RBC Hgb Hct MCH RDW Plt Count Seg Neuts % (Manual) Lymphocytes % (Manual) Monocytes % (Manual) Seg Neutrophils # Man Lymphocytes # (Manual) Monocytes # (Manual) D-Dimer ABG pH 7.572 H ABG pO2 58.5 L ABG HCO3 ABG O2 Saturation ABG Base Excess 3.5 H ABG Hemoglobin 20.0 H VBG pH Oxyhemoglobin 94.6 L Sodium Potassium Chloride Carbon Dioxide BUN Creatinine Glucose POC Glucose 154 H 147 H Hemoglobin A1c Lactic Acid Calcium Phosphorus Magnesium Ferritin AST Alkaline Phosphatase Lactate Dehydrogenase C-Reactive Protein Total Protein Albumin Triglycerides Cholesterol Urine Creatinine Urine Microalbumin Vancomycin Trough Salicylates Acetaminophen 06/05/19 06/05/19 06/05/19 00:27 01:16 02:20 WBC RBC Hgb Hct MCH RDW Plt Count Seg Neuts % (Manual) Lymphocytes % (Manual) Monocytes % (Manual) Seg Neutrophils # Man Lymphocytes # (Manual) Monocytes # (Manual) D-Dimer ABG pH ABG pO2 ABG HCO3 ABG O2 Saturation ABG Base Excess ABG Hemoglobin VBG pH Oxyhemoglobin Sodium Potassium Chloride Carbon Dioxide BUN Creatinine Glucose POC Glucose 124 H 126 H 156 H Hemoglobin A1c Lactic Acid Calcium Phosphorus Magnesium Ferritin AST Alkaline Phosphatase Lactate Dehydrogenase C-Reactive Protein Total Protein Albumin Triglycerides Cholesterol Urine Creatinine Urine Microalbumin Vancomycin Trough Salicylates Acetaminophen 06/05/19 06/05/19 06/05/19 03:44 03:59 04:52 WBC RBC Hgb Hct MCH RDW Plt Count Seg Neuts % (Manual) Lymphocytes % (Manual) Monocytes % (Manual) Seg Neutrophils # Man Lymphocytes # (Manual) Monocytes # (Manual) D-Dimer ABG pH ABG pO2 ABG HCO3 ABG O2 Saturation ABG Base Excess ABG Hemoglobin VBG pH Oxyhemoglobin Sodium 155 H Potassium 3.0 L D Chloride 114.7 H Carbon Dioxide BUN Creatinine 0.6 L Glucose 136 H POC Glucose 143 H 141 H Hemoglobin A1c Lactic Acid Calcium Phosphorus Magnesium Ferritin AST Alkaline Phosphatase Lactate Dehydrogenase C-Reactive Protein Total Protein Albumin Triglycerides Cholesterol Urine Creatinine Urine Microalbumin Vancomycin Trough Salicylates Acetaminophen 06/05/19 06/05/19 06/05/19 05:00 05:54 07:01 WBC RBC Hgb Hct MCH RDW Plt Count Seg Neuts % (Manual) Lymphocytes % (Manual) Monocytes % (Manual) Seg Neutrophils # Man Lymphocytes # (Manual) Monocytes # (Manual) D-Dimer ABG pH 7.621 H* ABG pO2 54.3 L ABG HCO3 29.8 H ABG O2 Saturation ABG Base Excess 8.8 H ABG Hemoglobin VBG pH Oxyhemoglobin Sodium Potassium Chloride Carbon Dioxide BUN Creatinine Glucose POC Glucose 155 H 145 H Hemoglobin A1c Lactic Acid Calcium Phosphorus Magnesium Ferritin AST Alkaline Phosphatase Lactate Dehydrogenase C-Reactive Protein Total Protein Albumin Triglycerides Cholesterol Urine Creatinine Urine Microalbumin Vancomycin Trough Salicylates Acetaminophen 06/05/19 06/05/19 06/05/19 12:13 18:23 21:00 WBC RBC Hgb Hct MCH RDW Plt Count Seg Neuts % (Manual) Lymphocytes % (Manual) Monocytes % (Manual) Seg Neutrophils # Man Lymphocytes # (Manual) Monocytes # (Manual) D-Dimer ABG pH ABG pO2 ABG HCO3 ABG O2 Saturation ABG Base Excess ABG Hemoglobin VBG pH Oxyhemoglobin Sodium Potassium Chloride Carbon Dioxide BUN Creatinine Glucose POC Glucose 202 H 257 H Hemoglobin A1c Lactic Acid Calcium Phosphorus Magnesium Ferritin AST Alkaline Phosphatase Lactate Dehydrogenase C-Reactive Protein Total Protein Albumin Triglycerides Cholesterol Urine Creatinine Urine Microalbumin Vancomycin Trough 4.2 L Salicylates Acetaminophen 06/05/19 06/06/19 06/06/19 23:55 04:16 04:37 WBC RBC Hgb Hct MCH RDW Plt Count Seg Neuts % (Manual) Lymphocytes % (Manual) Monocytes % (Manual) Seg Neutrophils # Man Lymphocytes # (Manual) Monocytes # (Manual) D-Dimer 1279.22 H ABG pH 7.600 H ABG pO2 62.4 L ABG HCO3 28.0 H ABG O2 Saturation ABG Base Excess 6.6 H ABG Hemoglobin 10.4 L VBG pH Oxyhemoglobin Sodium Potassium Chloride Carbon Dioxide BUN Creatinine Glucose POC Glucose 267 H Hemoglobin A1c Lactic Acid Calcium Phosphorus Magnesium Ferritin AST Alkaline Phosphatase Lactate Dehydrogenase C-Reactive Protein Total Protein Albumin Triglycerides Cholesterol Urine Creatinine Urine Microalbumin Vancomycin Trough Salicylates Acetaminophen 06/06/19 06/06/19 06/06/19 04:37 04:37 04:37 WBC 12.2 H RBC 5.10 H Hgb Hct MCH 27 L RDW Plt Count Seg Neuts % (Manual) Lymphocytes % (Manual) Monocytes % (Manual) Seg Neutrophils # Man Lymphocytes # (Manual) Monocytes # (Manual) D-Dimer ABG pH ABG pO2 ABG HCO3 ABG O2 Saturation ABG Base Excess ABG Hemoglobin VBG pH Oxyhemoglobin Sodium 156 H Potassium 3.4 L Chloride 112.9 H Carbon Dioxide BUN 21 H Creatinine 0.6 L Glucose 332 H POC Glucose Hemoglobin A1c Lactic Acid Calcium Phosphorus Magnesium Ferritin 1649.0 H AST Alkaline Phosphatase Lactate Dehydrogenase 578 H C-Reactive Protein 22.10 H Total Protein Albumin Triglycerides Cholesterol Urine Creatinine Urine Microalbumin Vancomycin Trough Salicylates Acetaminophen 06/06/19 06/06/19 06/06/19 05:45 11:55 12:21 WBC RBC Hgb Hct MCH RDW Plt Count Seg Neuts % (Manual) Lymphocytes % (Manual) Monocytes % (Manual) Seg Neutrophils # Man Lymphocytes # (Manual) Monocytes # (Manual) D-Dimer ABG pH 7.511 H ABG pO2 123.0 H ABG HCO3 29.7 H ABG O2 Saturation ABG Base Excess 6.4 H ABG Hemoglobin VBG pH Oxyhemoglobin Sodium Potassium Chloride Carbon Dioxide BUN Creatinine Glucose POC Glucose 303 H 281 H Hemoglobin A1c Lactic Acid Calcium Phosphorus Magnesium Ferritin AST Alkaline Phosphatase Lactate Dehydrogenase C-Reactive Protein Total Protein Albumin Triglycerides Cholesterol Urine Creatinine Urine Microalbumin Vancomycin Trough Salicylates Acetaminophen 06/06/19 06/07/19 06/07/19 17:06 00:25 04:39 WBC RBC Hgb Hct MCH RDW Plt Count Seg Neuts % (Manual) Lymphocytes % (Manual) Monocytes % (Manual) Seg Neutrophils # Man Lymphocytes # (Manual) Monocytes # (Manual) D-Dimer ABG pH 7.507 H ABG pO2 46.4 L ABG HCO3 32.6 H ABG O2 Saturation 90.6 L ABG Base Excess 8.6 H ABG Hemoglobin VBG pH Oxyhemoglobin 89.2 L Sodium Potassium Chloride Carbon Dioxide BUN Creatinine Glucose POC Glucose 251 H 225 H Hemoglobin A1c Lactic Acid Calcium Phosphorus Magnesium Ferritin AST Alkaline Phosphatase Lactate Dehydrogenase C-Reactive Protein Total Protein Albumin Triglycerides Cholesterol Urine Creatinine Urine Microalbumin Vancomycin Trough Salicylates Acetaminophen 06/07/19 06/07/19 06/07/19 04:43 04:43 04:43 WBC 13.6 H RBC 5.14 H Hgb Hct 43.4 H MCH 27 L RDW Plt Count Seg Neuts % (Manual) Lymphocytes % (Manual) Monocytes % (Manual) Seg Neutrophils # Man Lymphocytes # (Manual) Monocytes # (Manual) D-Dimer ABG pH ABG pO2 ABG HCO3 ABG O2 Saturation ABG Base Excess ABG Hemoglobin VBG pH Oxyhemoglobin Sodium 166 H* D Potassium 3.0 L Chloride 122.9 H Carbon Dioxide BUN 27 H Creatinine 0.5 L Glucose 265 H POC Glucose Hemoglobin A1c Lactic Acid Calcium Phosphorus Magnesium Ferritin AST Alkaline Phosphatase Lactate Dehydrogenase C-Reactive Protein Total Protein Albumin Triglycerides 373 H Cholesterol Urine Creatinine Urine Microalbumin Vancomycin Trough Salicylates Acetaminophen 06/07/19 06/07/19 06/07/19 10:12 11:39 15:31 WBC RBC Hgb Hct MCH RDW Plt Count Seg Neuts % (Manual) Lymphocytes % (Manual) Monocytes % (Manual) Seg Neutrophils # Man Lymphocytes # (Manual) Monocytes # (Manual) D-Dimer ABG pH ABG pO2 ABG HCO3 ABG O2 Saturation ABG Base Excess ABG Hemoglobin VBG pH Oxyhemoglobin Sodium 163 H* 161 H* Potassium 3.1 L Chloride 117.7 H Carbon Dioxide BUN 22 H Creatinine 0.5 L Glucose 274 H POC Glucose 218 H Hemoglobin A1c Lactic Acid Calcium Phosphorus Magnesium Ferritin AST Alkaline Phosphatase Lactate Dehydrogenase C-Reactive Protein Total Protein Albumin Triglycerides Cholesterol Urine Creatinine Urine Microalbumin Vancomycin Trough Salicylates Acetaminophen 06/07/19 06/08/19 06/08/19 17:16 00:04 03:45 WBC RBC Hgb Hct MCH RDW Plt Count Seg Neuts % (Manual) Lymphocytes % (Manual) Monocytes % (Manual) Seg Neutrophils # Man Lymphocytes # (Manual) Monocytes # (Manual) D-Dimer ABG pH 7.504 H ABG pO2 54.2 L ABG HCO3 32.3 H ABG O2 Saturation 93.7 L ABG Base Excess 8.4 H ABG Hemoglobin VBG pH Oxyhemoglobin 92.2 L Sodium Potassium Chloride Carbon Dioxide BUN Creatinine Glucose POC Glucose 284 H 283 H Hemoglobin A1c Lactic Acid Calcium Phosphorus Magnesium Ferritin AST Alkaline Phosphatase Lactate Dehydrogenase C-Reactive Protein Total Protein Albumin Triglycerides Cholesterol Urine Creatinine Urine Microalbumin Vancomycin Trough Salicylates Acetaminophen 06/08/19 06/08/19 06/08/19 05:02 09:33 09:33 WBC RBC Hgb Hct MCH RDW Plt Count Seg Neuts % (Manual) Lymphocytes % (Manual) Monocytes % (Manual) Seg Neutrophils # Man Lymphocytes # (Manual) Monocytes # (Manual) D-Dimer 1319.18 H ABG pH ABG pO2 ABG HCO3 ABG O2 Saturation ABG Base Excess ABG Hemoglobin VBG pH Oxyhemoglobin Sodium Potassium Chloride Carbon Dioxide BUN Creatinine Glucose POC Glucose 291 H Hemoglobin A1c Lactic Acid Calcium Phosphorus Magnesium Ferritin 1274.0 H AST Alkaline Phosphatase Lactate Dehydrogenase C-Reactive Protein Total Protein Albumin Triglycerides Cholesterol Urine Creatinine Urine Microalbumin Vancomycin Trough Salicylates Acetaminophen 06/08/19 06/08/19 06/08/19 09:33 09:33 17:46 WBC 16.0 H RBC Hgb Hct MCH 27 L RDW Plt Count Seg Neuts % (Manual) Lymphocytes % (Manual) Monocytes % (Manual) Seg Neutrophils # Man Lymphocytes # (Manual) Monocytes # (Manual) D-Dimer ABG pH ABG pO2 ABG HCO3 ABG O2 Saturation ABG Base Excess ABG Hemoglobin VBG pH Oxyhemoglobin Sodium 157 H Potassium 3.1 L Chloride 116.7 H Carbon Dioxide BUN 24 H Creatinine 0.5 L Glucose 351 H POC Glucose 309 H Hemoglobin A1c Lactic Acid Calcium Phosphorus 2.20 L Magnesium 2.60 H Ferritin AST Alkaline Phosphatase 131 H Lactate Dehydrogenase 449 H C-Reactive Protein 9.70 H Total Protein 6.1 L Albumin 2.1 L Triglycerides Cholesterol Urine Creatinine Urine Microalbumin Vancomycin Trough Salicylates Acetaminophen 06/08/19 06/08/19 06/09/19 21:55 23:46 04:18 WBC RBC Hgb Hct MCH RDW Plt Count Seg Neuts % (Manual) Lymphocytes % (Manual) Monocytes % (Manual) Seg Neutrophils # Man Lymphocytes # (Manual) Monocytes # (Manual) D-Dimer ABG pH 7.480 H ABG pO2 70.9 L ABG HCO3 32.9 H ABG O2 Saturation ABG Base Excess 8.4 H ABG Hemoglobin 10.3 L VBG pH Oxyhemoglobin 94.8 L Sodium 151 H Potassium 3.3 L Chloride 112.7 H Carbon Dioxide 31 H BUN 24 H Creatinine 0.5 L Glucose 321 H POC Glucose 331 H Hemoglobin A1c Lactic Acid Calcium Phosphorus Magnesium Ferritin AST Alkaline Phosphatase Lactate Dehydrogenase C-Reactive Protein Total Protein Albumin Triglycerides Cholesterol Urine Creatinine Urine Microalbumin Vancomycin Trough Salicylates Acetaminophen 06/09/19 06/09/19 06/09/19 05:35 07:34 07:34 WBC 14.2 H RBC Hgb Hct MCH 27 L RDW Plt Count Seg Neuts % (Manual) Lymphocytes % (Manual) Monocytes % (Manual) Seg Neutrophils # Man Lymphocytes # (Manual) Monocytes # (Manual) D-Dimer ABG pH ABG pO2 ABG HCO3 ABG O2 Saturation ABG Base Excess ABG Hemoglobin VBG pH Oxyhemoglobin Sodium 153 H Potassium 3.0 L Chloride 113.6 H Carbon Dioxide BUN 26 H Creatinine 0.5 L Glucose 306 H POC Glucose 264 H Hemoglobin A1c Lactic Acid Calcium Phosphorus Magnesium Ferritin AST Alkaline Phosphatase Lactate Dehydrogenase 411 H C-Reactive Protein 6.00 H Total Protein Albumin Triglycerides 304 H Cholesterol Urine Creatinine Urine Microalbumin Vancomycin Trough Salicylates Acetaminophen 06/09/19 06/09/19 06/09/19 07:34 07:34 18:29 WBC RBC Hgb Hct MCH RDW Plt Count Seg Neuts % (Manual) Lymphocytes % (Manual) Monocytes % (Manual) Seg Neutrophils # Man Lymphocytes # (Manual) Monocytes # (Manual) D-Dimer 991.99 H ABG pH ABG pO2 ABG HCO3 ABG O2 Saturation ABG Base Excess ABG Hemoglobin VBG pH Oxyhemoglobin Sodium Potassium Chloride Carbon Dioxide BUN Creatinine Glucose POC Glucose 226 H Hemoglobin A1c Lactic Acid Calcium Phosphorus Magnesium Ferritin 1078.0 H AST Alkaline Phosphatase Lactate Dehydrogenase C-Reactive Protein Total Protein Albumin Triglycerides Cholesterol Urine Creatinine Urine Microalbumin Vancomycin Trough Salicylates Acetaminophen 06/09/19 06/09/19 06/10/19 19:22 23:43 04:05 WBC RBC Hgb Hct MCH RDW Plt Count Seg Neuts % (Manual) Lymphocytes % (Manual) Monocytes % (Manual) Seg Neutrophils # Man Lymphocytes # (Manual) Monocytes # (Manual) D-Dimer ABG pH 7.472 H ABG pO2 63.0 L ABG HCO3 31.3 H ABG O2 Saturation 94.5 L ABG Base Excess 6.9 H ABG Hemoglobin VBG pH Oxyhemoglobin 93.0 L Sodium Potassium Chloride 110.1 H Carbon Dioxide BUN 20 H Creatinine 0.4 L Glucose 237 H POC Glucose 177 H Hemoglobin A1c Lactic Acid Calcium Phosphorus Magnesium Ferritin AST Alkaline Phosphatase Lactate Dehydrogenase C-Reactive Protein Total Protein Albumin Triglycerides Cholesterol Urine Creatinine Urine Microalbumin Vancomycin Trough Salicylates Acetaminophen 06/10/19 06/10/19 06/10/19 06:28 Unknown Unknown WBC 13.7 H RBC Hgb Hct MCH RDW Plt Count 84 L Seg Neuts % (Manual) Lymphocytes % (Manual) Monocytes % (Manual) Seg Neutrophils # Man Lymphocytes # (Manual) Monocytes # (Manual) D-Dimer ABG pH ABG pO2 ABG HCO3 ABG O2 Saturation ABG Base Excess ABG Hemoglobin VBG pH Oxyhemoglobin Sodium 148 H Potassium 3.3 L Chloride 111.5 H Carbon Dioxide BUN 20 H Creatinine 0.4 L Glucose 185 H POC Glucose 172 H Hemoglobin A1c Lactic Acid Calcium Phosphorus Magnesium Ferritin AST Alkaline Phosphatase Lactate Dehydrogenase C-Reactive Protein Total Protein Albumin Triglycerides Cholesterol Urine Creatinine Urine Microalbumin Vancomycin Trough Salicylates Acetaminophen Allied health notes reviewed: nursing
--- NOTE | 2019-06-10 14:14 | Progress Note ---
Assessment and Plan Cultures: Blood culture 06/03/2019 nMicrococcus 1 of 4 Urine culture 06/03/2019 no growth today Assessment: 48 years old female with history of diabetes, hypertension admitted on 06/03/2019 due to acute altered mental status and shortness of breath,t recently returned back from [place] where she went to celebrate her mother's birthday: #Severe sepsis MODS: fever resolved, leukocytosis down; elevated lactate and SHARITA; likely due to bilateral pneumonia +/- DKA, procal up-->down #Bilateral pneumonia: high suspicion for severe COVID pneumonia +/- bacterial pneumonia. Transmission likely from community recent travel to [place]. COVID test pending. Ferritin at 1,037-->1,649-->1,319. LDH 673-->449. CRP 14-->9. Ddimer 434-->1319. Markers down. S/p plaquenil #Acute hypoxemic respiratory failure/ARDS: intubated FiO2 40%/p6 pO2 70 #Acute encephalopathy: Likely due to #1 and high sodium #SHARITA: Renally adjust antibiotics, resolved. #Diabetes with DKA #Hypernatremia per IMS, better #Micrococcus in blood culture: 1 of 4 likely a contaminant Recommendations: to start CPAP trial S/p plaquenil 5 days S/p cefepime, metronidazole 7 days Monitor off antibiotics Continue COVID isolation precautions per [facility] protocol Will follow Kerrie Garcia MD Infectious Diseases [employer] [facility] ([facility]) M [phone] O [phone] Subjective Date of service: 06/10/19 Principal diagnosis: Ac hypoxemic resp failure; Bob. PNA; PUI CVOVID-19; DKA; Severe sepsis Interval history: Remains on intubated, fiO2 40%, p 6, no fever, no pressors PUI?: No COVID19: Positive Objective - Exam Narrative Exam: Exam performed in conjunction with nursings staff due to lack of PPE General appearance: sedated intubated Eyes: limited due to lack of PPE HENT: Atraumatic; oropharynx limited due to lack of PPE Lungs: Diminished bilateral per RT CV: RRR Abdomen: limited due to lack of PPE Extremities: limited due to lack of PPE Skin: No rash. Psych: sedated Neuro: sedated - Constitutional Vitals: Vital Signs Temp Pulse Resp BP Pulse Ox 98.5 F 92 H 32 H 112/68 95 06/10/19 12:00 06/10/19 14:00 06/10/19 14:00 06/10/19 14:00 06/10/19 14:00 Temperature -Last 24 Hours Temperature 98.5 F Temperature 98.5 F Temperature 98.2 F Temperature 98 F Temperature 98.7 F Temperature 97.6 F - Labs CBC & Chem 7: 06/10/19 Unknown 06/10/19 Unknown Labs: Abnormal lab results 06/09/19 06/09/19 06/09/19 Range/Units 18:29 19:22 23:43 WBC (4.5-11.0) K/mm3 Plt Count (140-440) K/mm3 ABG pH (7.350-7.450) pH Units ABG pO2 (80.0-90.0) mm Hg ABG HCO3 (20.0-26.0) mmol/L ABG O2 Saturation (95.0-99.0) % ABG Base Excess (-2.0-3.0) mmol/L Oxyhemoglobin (95.0-99.0) % Sodium (137-145) mmol/L Potassium (3.6-5.0) mmol/L Chloride 110.1 H (98-107) mmol/L BUN 20 H (7-17) mg/dL Creatinine 0.4 L (0.7-1.2) mg/dL Glucose 237 H (65-100) mg/dL POC Glucose 226 H 177 H (70-105) 06/10/19 06/10/19 06/10/19 Range/Units 04:05 06:28 12:30 WBC (4.5-11.0) K/mm3 Plt Count (140-440) K/mm3 ABG pH 7.472 H (7.350-7.450) pH Units ABG pO2 63.0 L (80.0-90.0) mm Hg ABG HCO3 31.3 H (20.0-26.0) mmol/L ABG O2 Saturation 94.5 L (95.0-99.0) % ABG Base Excess 6.9 H (-2.0-3.0) mmol/L Oxyhemoglobin 93.0 L (95.0-99.0) % Sodium (137-145) mmol/L Potassium (3.6-5.0) mmol/L Chloride (98-107) mmol/L BUN (7-17) mg/dL Creatinine (0.7-1.2) mg/dL Glucose (65-100) mg/dL POC Glucose 172 H 166 H (70-105) 06/10/19 06/10/19 Range/Units Unknown Unknown WBC 13.7 H (4.5-11.0) K/mm3 Plt Count 84 L (140-440) K/mm3 ABG pH (7.350-7.450) pH Units ABG pO2 (80.0-90.0) mm Hg ABG HCO3 (20.0-26.0) mmol/L ABG O2 Saturation (95.0-99.0) % ABG Base Excess (-2.0-3.0) mmol/L Oxyhemoglobin (95.0-99.0) % Sodium 148 H (137-145) mmol/L Potassium 3.3 L (3.6-5.0) mmol/L Chloride 111.5 H (98-107) mmol/L BUN 20 H (7-17) mg/dL Creatinine 0.4 L (0.7-1.2) mg/dL Glucose 185 H (65-100) mg/dL POC Glucose (70-105)
--- NOTE | 2019-06-10 17:52 | Progress Note ---
Assessment and Plan Assessment and plan: Mrs. Tomas is a 48-year-old female with a history of hypertension, type 2 diabetes mellitus events with altered mental status. She arrived per EMS. Last known time normal 10 PM on night prior to admission. Patient is nonverbal. History obtained from paramedics and electronic medical record. Patient had been ill with fever cough for the past several days. She recently [facility]. EMS discovered patient to be altered with work of breathing. Patient is nonverbal. She was not moving her right side. She is hypoxic at 77% room air. Blood pressure was 140/97. Blood sugar was elevated fingerstick. Hx obtained from [facility] realized that patient was not speaking 4 AM. Found her later breathing really heavy. Unresponsive. When she came back from [facility] last Saturday. She had high fever. Her doctor ordered test for COVID-19. Dr. Rausch her PCP informed patient that she tested negative. She went to [facility] to celebrate her mother's birthday. On admission she was noted to be in DKA and started on DKA protocol. She was al so intubated and on full mechanical ventilatory support. Diagnostic work-up so far EKG shows sinus tachycardia with MAT CT head no acute intracranial process CT cervical spine patchy groundglass consolidative airspace disease right mid to lower lung Mrs. Tomas presents with altered mental status hypoxia. She required mechanical ventilation for oxygenation and airway control. Initially was not moving her right side. With oxygen supplementation she began to move both of her arms. She continued to be nonverbal. She did not follow commands prior to intubation. With CT chest findings and history of fever I strongly suspect COVID 19. Although she previously tested negative there is significant support of false negative test so we will retest. survey form was filled out in the ED by the ED physician through the [facility] department of health as a person under investigation for COVID 19. Patient returned 1 week ago from [facility] after celebrating her mother's birthday. * COVID 19 test results came back positive has been advised to forego quarantine himself. COVID 19 Induced Pneumonia Acute hypoxic respiratory failure mild on mechanical ventilation Hypernatremia-remains elevated will increase free water. Hypertension Acute metabolic encephalopathy Right upper extremity weakness now resolved Pneumonia Hypokalemia Leukocytosis Sepsis secondary to pneumonia-with hypothermia Severe metabolic acidosis DKA-resolved Diabetes mellitus with uncontrolled blood sugar Plan 06/04: Remains on full mechanical support. Patient with respiratory alkalosis noted. Adjustment made to the ventilator to decrease the rate. Will replace potassium as hypokalemia still persist. Hypernatremia gradually improving will adjust free water. Patient's anion gap is finally closed will transition to sliding scale coverage with Lantus. Anticipate weaning trial today if patient is amendable to it. Oxygen at requirements per vent settings appears to be improving 06/05: Leukocytosis improving although patient still hypoxic on the ventilator. Awaiting COVID 19 testing results. In addition continue antibiotics for broad- spectrum coverage. Will adjust insulin for better blood sugar control. 06/06: We will increase free water to 300 cc every 4 hours. We will also obtain consultation from working foreman. Otherwise continue current therapy. Also noted to have diastolic hypertension will adjust blood pressure medications. Initiated home meds. 06/07: Sodium gradually improving, will adjust free water to 350 while awaiting todays lab and working foreman. Patient still with non purposeful movement. Will discuss with ID about possible trial drug Ivermectin. Adjust basal insulin to 40 units BID 06/08: ID and pulmonary considering trial of the new medication ivermectin as patient's inflammatory markers went back up. Sodium mildly elevated. In addition to blood sugar. Discontinued D5 water which could be leading to elevated blood sugar. Will adjust free water to 400 every 4 hours. Nephrology following 06/09: Continue supportive care, Continue Management per ID and Critical care team. Continue intensive care monitoring. Asbestos Siding Installer and infectious disease consult input noted EKG reviewed no evidence of atrial fibrillation will repeat. Replace potassium DKA protocol with insulin-will be discontinued f/u COVID test - pending Continue COVID isolation precautions per [facility] protocol S/P Plaquenil and azithromycin X 5 DAYS Obtain serial Ferritin, LDH, D-Dimer, CRP every 48h Empiric antibiotic coverage, obtain blood cultures and urine cultures and sputum cultures. Wean from vent as tolerated defer to tree and shrub worker We will monitor EKG for any visualization of the atrial fibrillation. If persist will obtain cardiology consult. DVT and GI prophylaxis The high probability of a clinically significant, sudden or life threatening deterioration of the [pulmonary, neuro,] system(s) required my full and direct attention, intervention and personal management. The aggregate critical care time was [35] minutes. This time is in addition to time spent performing reported procedures but includes the following: [x] Data Review and interpretation [x] Patient assessment and monitoring of vital signs [x] Documentation [x] Medication orders and management History Interval history: Patient seen and examined remains on the vent. PUI?: No COVID19: Positive Hospitalist Physical - Physical exam Narrative exam: VITAL SIGNS: Reviewed. limited exam due to limited COVID19 PPE GENERAL: The patient appears normally developed, sedated and intubated vital signs as documented. HEAD: No signs of head trauma. EYES: Pupils are equal. Unable to examine EARS: Unable to examine MOUTH: Oropharynx is normal. ET tube in place NECK: No adenopathy, no JVD. CHEST: Chest with clear breath sounds bilaterally. No wheezes, rales, or rhonchi. CARDIAC: Regular rate and rhythm. S1 and S2, without murmurs, gallops, or rubs. VASCULAR: No Edema. Peripheral pulses normal and equal in all extremities. ABDOMEN: Soft, non tender and non distended. No rebound or guarding, and no masses palpated. Bowel Sounds normal. MUSCULOSKELETAL: Per ED documentation was moving left arm but not the right arm. Extremities without clubbing, cyanosis or edema. NEUROLOGIC EXAM: Intubated and sedated PSYCHIATRIC: Unable to examine SKIN: detail exam as documented in skin assessment - Constitutional Vitals: Temp Pulse Resp BP Pulse Ox 98.5 F 92 H 32 H 112/68 95 06/10/19 16:00 06/10/19 15:44 06/10/19 14:00 06/10/19 15:44 06/10/19 15:44 MACK score - Mack Score Age > 65: (0) No 3 or more CAD Risk Factors: (1) Yes 2 or more Angina events in past 24 hrs: (0) No Known CAD with more than 50% Stenosis: (0) No Elevated Cardiac Markers: (0) No ST Deviation Greater than 0.5mm: (0) No Results - Labs CBC & Chem 7: 06/10/19 Unknown 06/10/19 Unknown Labs: Laboratory Last Values WBC 13.7 K/mm3 (4.5-11.0) H 06/10/19 Unknown RBC 4.92 M/mm3 (3.65-5.03) 06/10/19 Unknown Hgb 13.6 gm/dl (10.1-14.3) 06/10/19 Unknown Hct 42.7 % (30.3-42.9) 06/10/19 Unknown MCV 87 fl (79-97) 06/10/19 Unknown MCH 28 pg (28-32) 06/10/19 Unknown MCHC 32 % (30-34) 06/10/19 Unknown RDW 14.6 % (13.2-15.2) 06/10/19 Unknown Plt Count 84 K/mm3 (140-440) L 06/10/19 Unknown Lymph % (Auto) Conflict Resolution Professional 06/03/19 11:51 Vernon % (Auto) Conflict Resolution Professional 06/03/19 11:51 Eos % (Auto) Conflict Resolution Professional 06/03/19 11:51 Baso % (Auto) Conflict Resolution Professional 06/03/19 11:51 Lymph # Conflict Resolution Professional 06/03/19 11:51 Vernon # Conflict Resolution Professional 06/03/19 11:51 Eos # Conflict Resolution Professional 06/03/19 11:51 Baso # Conflict Resolution Professional 06/03/19 11:51 Add Manual Diff Complete 06/04/19 07:00 Total Counted 100 06/04/19 07:00 Seg Neutrophils % Conflict Resolution Professional 06/04/19 07:00 Seg Neuts % (Manual) 72.0 % (40.0-70.0) H 06/04/19 07:00 Band Neutrophils % 20.0 % 06/04/19 07:00 Lymphocytes % (Manual) 6.0 % (13.4-35.0) L 06/04/19 07:00 Reactive Lymphs % (Man) 0 % 06/04/19 07:00 Monocytes % (Manual) 2.0 % (0.0-7.3) 06/04/19 07:00 Eosinophils % (Manual) 0 % (0.0-4.3) 06/04/19 07:00 Basophils % (Manual) 0 % (0.0-1.8) 06/04/19 07:00 Metamyelocytes % 0 % 06/04/19 07:00 Myelocytes % 0 % 06/04/19 07:00 Promyelocytes % 0 % 06/04/19 07:00 Blast Cells % 0 % 06/04/19 07:00 Nucleated RBC % Not Reportable 06/04/19 07:00 Seg Neutrophils # Conflict Resolution Professional 06/03/19 11:51 Seg Neutrophils # Man 9.6 K/mm3 (1.8-7.7) H 06/04/19 07:00 Band Neutrophils # 2.7 K/mm3 06/04/19 07:00 Lymphocytes # (Manual) 0.8 K/mm3 (1.2-5.4) L 06/04/19 07:00 Abs React Lymphs (Man) 0.0 K/mm3 06/04/19 07:00 Monocytes # (Manual) 0.3 K/mm3 (0.0-0.8) 06/04/19 07:00 Eosinophils # (Manual) 0.0 K/mm3 (0.0-0.4) 06/04/19 07:00 Basophils # (Manual) 0.0 K/mm3 (0.0-0.1) 06/04/19 07:00 Metamyelocytes # 0.0 K/mm3 06/04/19 07:00 Myelocytes # 0.0 K/mm3 06/04/19 07:00 Promyelocytes # 0.0 K/mm3 06/04/19 07:00 Blast Cells # 0.0 K/mm3 06/04/19 07:00 WBC Morphology Not Reportable 06/04/19 07:00 Hypersegmented Neuts Not Reportable 06/04/19 07:00 Hyposegmented Neuts Not Reportable 06/04/19 07:00 Hypogranular Neuts Not Reportable 06/04/19 07:00 Smudge Cells Not Reportable 06/04/19 07:00 Toxic Granulation Not Reportable 06/04/19 07:00 Toxic Vacuolation Not Reportable 06/04/19 07:00 Dohle Bodies Not Reportable 06/04/19 07:00 Pelger-Huet Anomaly Not Reportable 06/04/19 07:00 Stephanie Rods Not Reportable 06/04/19 07:00 Platelet Estimate Consistent w auto 06/04/19 07:00 Clumped Platelets Not Reportable 06/04/19 07:00 Plt Clumps, EDTA Not Reportable 06/04/19 07:00 Large Platelets Not Reportable 06/04/19 07:00 Giant Platelets Not Reportable 06/04/19 07:00 Platelet Satelliting Not Reportable 06/04/19 07:00 Plt Morphology Comment Not Reportable 06/04/19 07:00 RBC Morphology Normal 06/04/19 07:00 Dimorphic RBCs Not Reportable 06/04/19 07:00 Polychromasia Not Reportable 06/04/19 07:00 Hypochromasia Not Reportable 06/04/19 07:00 Poikilocytosis Not Reportable 06/04/19 07:00 Anisocytosis Not Reportable 06/04/19 07:00 Microcytosis Not Reportable 06/04/19 07:00 Macrocytosis Not Reportable 06/04/19 07:00 Spherocytes Not Reportable 06/04/19 07:00 Pappenheimer Bodies Not Reportable 06/04/19 07:00 Sickle Cells Not Reportable 06/04/19 07:00 Target Cells Not Reportable 06/04/19 07:00 Tear Drop Cells Not Reportable 06/04/19 07:00 Ovalocytes Not Reportable 06/04/19 07:00 Helmet Cells Not Reportable 06/04/19 07:00 Hutchinson-Universal Bodies Not Reportable 06/04/19 07:00 [place] Rings Not Reportable 06/04/19 07:00 Jessica Cells Not Reportable 06/04/19 07:00 Bite Cells Not Reportable 06/04/19 07:00 Crenated Cell Not Reportable 06/04/19 07:00 Elliptocytes Not Reportable 06/04/19 07:00 Acanthocytes (Spur) Not Reportable 06/04/19 07:00 Rouleaux Not Reportable 06/04/19 07:00 Hemoglobin C Crystals Not Reportable 06/04/19 07:00 Schistocytes Not Reportable 06/04/19 07:00 Malaria parasites Not Reportable 06/04/19 07:00 Elias Bodies Not Reportable 06/04/19 07:00 Hem Pathologist Commnt No 06/04/19 07:00 D-Dimer 991.99 ng/mlDDU (0-234) H 06/09/19 07:34 ABG pH 7.472 pH Units (7.350-7.450) H 06/10/19 04:05 ABG pCO2 43.8 mm Hg 06/10/19 04:05 ABG pO2 63.0 mm Hg (80.0-90.0) L 06/10/19 04:05 ABG HCO3 31.3 mmol/L (20.0-26.0) H 06/10/19 04:05 ABG O2 Saturation 94.5 % (95.0-99.0) L 06/10/19 04:05 ABG O2 Content 17.8 (0.0-44) 06/10/19 04:05 ABG Base Excess 6.9 mmol/L (-2.0-3.0) H 06/10/19 04:05 ABG Hemoglobin 13.6 gm/dl (12.0-16.0) 06/10/19 04:05 ABG Carboxyhemoglobin 1.1 % (0.0-5.0) 06/10/19 04:05 ABG Methemoglobin 0.5 % (0.0-1.5) 06/10/19 04:05 VBG pH 6.901 (7.320-7.420) L* 06/03/19 11:51 Oxyhemoglobin 93.0 % (95.0-99.0) L 06/10/19 04:05 FiO2 40 % 06/10/19 04:05 Sodium 148 mmol/L (137-145) H 06/10/19 Unknown Potassium 3.3 mmol/L (3.6-5.0) L 06/10/19 Unknown Chloride 111.5 mmol/L (98-107) H 06/10/19 Unknown Carbon Dioxide 25 mmol/L (22-30) 06/10/19 Unknown Anion Gap 15 mmol/L 06/10/19 Unknown BUN 20 mg/dL (7-17) H 06/10/19 Unknown Creatinine 0.4 mg/dL (0.7-1.2) L 06/10/19 Unknown Estimated GFR > 60 ml/min 06/10/19 Unknown BUN/Creatinine Ratio 50 % 06/10/19 Unknown Glucose 185 mg/dL (65-100) H 06/10/19 Unknown POC Glucose 166 (70-105) H 06/10/19 12:30 Hemoglobin A1c 9.6 % (4-6) H 06/03/19 16:03 Lactic Acid 1.90 mmol/L (0.7-2.0) 06/03/19 21:32 Calcium 9.2 mg/dL (8.4-10.2) 06/10/19 Unknown Phosphorus 2.20 mg/dL (2.5-4.5) L 06/08/19 09:33 Magnesium 2.60 mg/dL (1.7-2.3) H 06/08/19 09:33 Ferritin 1078.0 ng/mL (13.0-400.0) H 06/09/19 07:34 Total Bilirubin 0.40 mg/dL (0.1-1.2) 06/08/19 09:33 AST 31 units/L (5-40) 06/08/19 09:33 ALT 29 units/L (7-56) 06/08/19 09:33 Alkaline Phosphatase 131 units/L (35-129) H 06/08/19 09:33 Lactate Dehydrogenase 411 units/L (91-180) H 06/09/19 07:34 Troponin T < 0.010 ng/mL (0.00-0.029) 06/03/19 11:51 C-Reactive Protein 6.00 mg/dL (0.00-1.30) H 06/09/19 07:34 Total Protein 6.1 g/dL (6.3-8.2) L 06/08/19 09:33 Albumin 2.1 g/dL (3.9-5) L 06/08/19 09:33 Albumin/Globulin Ratio 0.5 % 06/08/19 09:33 Triglycerides 304 mg/dL (2-149) H 06/09/19 07:34 Cholesterol 250 mg/dL (50-199) H 06/03/19 19:00 LDL Cholesterol Direct TNR 06/03/19 19:00 HDL Cholesterol 46 mg/dL (40-59) 06/03/19 19:00 Cholesterol/HDL Ratio 5.43 % 06/03/19 19:00 Procalcitonin 0.26 ng/mL (<0.15) 06/09/19 07:34 Urine Color Yellow (Yellow) 06/03/19 11:48 Urine Turbidity Clear (Clear) 06/03/19 11:48 Urine pH 6.0 (5.0-7.0) 06/03/19 11:48 Ur Specific [place] 1.026 (1.003-1.030) 06/03/19 11:48 Urine Protein 100 mg/dl mg/dL (Negative) 06/03/19 11:48 Urine Glucose (UA) >=500 mg/dL (Negative) 06/03/19 11:48 Urine Ketones 80 mg/dL (Negative) 06/03/19 11:48 Urine Blood Mod (Negative) 06/03/19 11:48 Urine Nitrite Neg (Negative) 06/03/19 11:48 Urine Bilirubin Neg (Negative) 06/03/19 11:48 Urine Urobilinogen < 2.0 mg/dL (<2.0) 06/03/19 11:48 Ur Leukocyte Esterase Neg (Negative) 06/03/19 11:48 Urine WBC (Auto) 1.0 /HPF (0.0-6.0) 06/03/19 11:48 Urine RBC (Auto) 2.0 /HPF (0.0-6.0) 06/03/19 11:48 Granular Casts 4 /LPF 06/03/19 11:48 Urine Mucus Few /HPF 06/03/19 11:48 Urine Osmolality 755 Mosm/kg 06/07/19 17:00 Urine Creatinine 37.4 mg/dL (0.1-20.0) H 06/03/19 11:48 Urine Microalbumin 65.1 mg/dL (0.1-34.0) H 06/03/19 11:48 Microalb/Creat Ratio 1740.6 ug/mg 06/03/19 11:48 Urine Sodium 130 mmol/L 06/07/19 17:00 Urine Chloride 172.4 mmolL (110-250) 06/07/19 17:00 Urine HCG, Qual Negative (Negative) 06/03/19 11:48 Vancomycin Trough 4.2 ug/mL (5.0-20.0) L 06/05/19 21:00 Salicylates < 0.3 mg/dL (2.8-20.0) L 06/03/19 11:51 Urine Opiates Screen Presumptive negative 06/03/19 11:48 Urine Methadone Screen Presumptive negative 06/03/19 11:48 Acetaminophen < 5.0 ug/mL (10.0-30.0) L 06/03/19 11:51 Ur Barbiturates Screen Presumptive negative 06/03/19 11:48 Ur Phencyclidine Scrn Presumptive negative 06/03/19 11:48 Ur Amphetamines Screen Presumptive negative 06/03/19 11:48 U Benzodiazepines Scrn Presumptive negative 06/03/19 11:48 Urine Cocaine Screen Presumptive negative 06/03/19 11:48 U Marijuana (THC) Screen Presumptive negative 06/03/19 11:48 Drugs of Abuse Note Disclamer 06/03/19 11:48 Plasma/Serum Alcohol < 0.01 % (0-0.07) 06/03/19 11:51 Hepatitis A IgM Ab Non-reactive (NonReactive) 06/04/19 08:19 Hep Bs Antigen Non-reactive (Negative) 06/04/19 08:19 Hep B Core IgM Ab Non-reactive (NonReactive) 06/04/19 08:19 Hepatitis C Antibody Non-reactive (NonReactive) 06/04/19 08:19 Influenza A (Rapid) Negative (Negative) 06/03/19 Unknown Influenza B (Rapid) Negative (Negative) 06/03/19 Unknown Miscellaneous Test See scanned result 06/05/19 Unknown Microbiology: Microbiology 06/03/19 Unknown Peripheral/Venous Blood Culture - Preliminary Micrococcus + Related Species Alves/IV: Voiding Method External Female Catheter IV Catheter Type [Right Hand] INT / Saline Lock IV Catheter Type [Left Hand] INT / Saline Lock IV Catheter Type [Right INT / Saline Lock Antecubital] IV Catheter Type [Left Peripheral IV Antecubital] Active Medications - Current Medications Current Medications: Generic Name Dose Route Start Last Admin Trade Name Freq PRN Reason Stop Dose Admin Albuterol 2.5 mg 06/03/19 13:57 Proventil IH Q3HRT PRN Shortness Of Breath Lipase/Protease/Amylase 1 each 06/05/19 09:59 Pancreaze 10,500 Unit FEEDTUBE PRN PRN For Clogged Feeding Tube Dextrose 50 ml 06/03/19 13:57 D50w (25gm) Syringe IV Q30MIN PRN Hypoglycemia Protocol Famotidine 20 mg 06/06/19 10:00 06/10/19 10:17 Pepcid PO 20 mg BID JOSE ROBERTO Administration Fentanyl 25 mcg 06/09/19 11:30 Sublimaze IV Q4H PRN AGITATION/ANXIETY Heparin Sodium (Porcine) 5,000 unit 06/03/19 14:15 06/10/19 10:17 Heparin SUB-Q 5,000 unit Q12HR JOSE ROBERTO Administration Hydralazine HCl 10 mg 06/07/19 08:42 06/08/19 14:05 Apresoline IV 10 mg Q4HR PRN Administration Hypertension Hydrochlorothiazide 12.5 mg 06/07/19 10:00 06/10/19 10:28 Hctz PO Not Given QDAY JOSE ROBERTO Hydrophilic Ointment 1 applic 06/03/19 11:02 Vaseline Lip Therapy TP Q2HR PRN Dry Lips Insulin Glargine 50 units 06/09/19 22:00 06/10/19 10:16 Lantus SUB-Q 50 units BID JOSE ROBERTO Administration Insulin Human Regular 0 units 06/05/19 09:00 06/10/19 12:54 Humulin R SUB-Q 3 units Q6HR JOSE ROBERTO Administration Protocol Insulin Human Regular 10 units 06/09/19 12:00 06/10/19 12:54 Humulin R SUB-Q 10 units Q6HR JOSE ROBERTO Administration Losartan Potassium 50 mg 06/07/19 10:00 06/10/19 10:27 Cozaar PO Not Given QDAY JOSE ROBERTO Multi-Ingred Cream/Lotion/Oil/Oint 1 applic 06/03/19 11:02 Artificial Tears Ophth Oint OU Q4HR PRN Dry Eye(s) Quetiapine Fumarate 50 mg 06/10/19 22:00 Seroquel PO QHS JOSE ROBERTO Senna 8.6 mg 06/03/19 22:00 06/10/19 10:17 Senokot PO 8.6 mg BID JOSE ROBERTO Administration Simple Syrup 15 ml 06/05/19 09:59 Simple Syrup FEEDTUBE PRN PRN Hypoglycemia Simple Syrup 30 ml 06/05/19 09:59 Simple Syrup FEEDTUBE PRN PRN Hypoglycemia Sodium Bicarbonate 325 mg 06/05/19 09:59 Sodium Bicarbonate FEEDTUBE PRN PRN For Clogged Feeding Tube Sodium Chloride 10 ml 06/03/19 22:00 06/10/19 10:17 Sodium Chloride Flush Syringe 10 Ml IV 10 ml BID JOSE ROBERTO Administration Sodium Chloride 10 ml 06/03/19 13:57 Sodium Chloride Flush Syringe 10 Ml IV PRN PRN LINE FLUSH Nutrition/Malnutrition Assess - Dietary Evaluation Nutrition/Malnutrition Findings: Nutrition Notes Start: 06/04/19 08:30 Freq: Status: Active Protocol: Document 06/08/19 09:24 LM (Rec: 06/08/19 09:41 LM [id number]) Nutrition Notes Initial or Follow up Reassessment Current Diagnosis Diabetes,Sepsis,Hypertension, Respiratory Failure, Hyperlipidemia Other Pertinent Diagnosis COVID-19 positive, Pneu, metabolic encephalopathy Current Diet Vital AF 1,2 at 60ml/hr Labs/Tests POC glu 291 4/5 Na 161 K 3.1 Pertinent Medications Humulin Propofol at 2.346ml/hr (62 kcal) Height 5 ft 6 in Weight 75.1 kg Simon Body Weight (kg) 59.09 BMI 26.7 Weight Status Overweight Subjective/Other Information Per RN pt tolerating TF at goal. Na still high, will adjust flush. Percent of energy/protein needs met: 100%/100% Burn Absent Trauma Absent Current % PO Negligible Minimum of two criteria No physical signs of malnutrition #1 Nutrition Diagnosis Inadequate oral intake Diagnosis Progress(for reassessment Continues documentation) Is patient on ventilator? Yes Is Patient Ambulatory and/or Out of Bed No REE-(Erhard-St. Jeor-confined to bed) [phone] Calculation Used for Recommendations [facility] Additional Notes Protein: 90-150g (1.2-2g/kg) Fluid: 1 ml/kcal Nutrition Intervention Change Diet Order: Continue TF Nutrition Support: Vital AF 1.2 at 60 ml/hr Flush 250 ml q4h for hypernatremia Flush 100 ml q4h once hypernatremia resolves Kcal 1,728 Protein (gm) 108 Fluid (mL) 1,168 Goal #1 TF tolerance Goal #2 <eet at least 80% of energy and protein needs via TF Anticipated Discharge Needs: unable to determine at this time Follow-Up By: 06/12/19 Additional Comments F/U for TF tolerance/Na
[2019-06-10] MEDS: QUEtiapine 25 MG TAB PO SCH (21:37)
[2019-06-11] MEDS: INSULIN REGULAR, HUMAN 100 UNITS/1 ML SUB-Q SCH ×8 (00:14→17:17)
[2019-06-11 04:53] LABS: Hematocrit 40.5 % (30.3-42.9); Hemoglobin 12.7 gm/dl (10.1-14.3); Mean Corpuscular HGB Conc 31 % (30-34); Mean Corpuscular Volume 87 fl (79-97); Platelet Count 221 K/mm3 (140-440); Red Blood Count 4.68 M/mm3 (3.65-5.03); Red Cell Distribution Width 14.8 % (13.2-15.2)
[2019-06-11 05:20] LABS: BUN/Creatinine Ratio 34; Blood Urea Nitrogen 17 mg/dL (7-17); Calcium 9.1 mg/dL (8.4-10.2); Hemolysis Index 7
[2019-06-11] MEDS: INSULIN GLARGINE 100 UNITS/ML SUB-Q SCH ×2 (09:39→22:02)
[2019-06-11] MEDS: SENNOSIDES 8.6 MG TAB PO SCH ×2 (09:40→22:02)
[2019-06-11] MEDS: hydroCHLOROthiazide 12.5 MG CAP PO SCH (09:40)
[2019-06-11] MEDS: HEPARIN 5,000 UNIT/1 ML VIAL SUB-Q SCH ×2 (09:40→22:03)
[2019-06-11] MEDS: LOSARTAN 50 MG TAB PO SCH (09:40)
[2019-06-11] MEDS: FAMOTIDINE 20 MG TAB PO SCH ×2 (09:41→22:02)
[2019-06-11] MEDS ORDERED: POTASSIUM CHLORIDE 20 MEQ PACKET FEEDTUBE ONE (14:00)
--- NOTE | 2019-06-11 14:37 | Progress Note ---
Assessment and Plan Acute hypoxemic respiratory failure on MVS Bilateral pneumonia, possible aspiration. COVID-19 positive Diabetic ketoacidosis. Severe metabolic acidosis. Severe sepsis with acute encephalopathy and hypothermia. Acute toxic metabolic encephalopathy. Leukocytosis. Hemoconcentration. Elevated serum D-dimer. Acute kidney injury. Elevated serum transaminase. - tentative extubation in am if continues to tolerate weaning Psupp to 10 cm H2O - reduced set rate on MVS to 12/min - replaced serum Potassium with KCL 40 meq po - COVID-19 result positive - continue airborne, contact and droplet isolation - continue to wean supplemental oxygen for target O2 sat's > 90% acutely - continue Daily SAT and SBT assessment as tolerated - continue accuchecks resumed with glycemic control per Lantus and SSI (While critically ill target blood glucose of 140-180 mg/dL; avoid hypoglycemia) - sedation prn for target RASS 0 to -1 - VAP bundle addressed (aspiration precautions, HOB>40) - continue lung protective strategies - continue bronchodilators with pulmonary hygiene per RT - wean per pulmonary driven protocols otherwise - continue to avoid nephrotoxins, adjust all medications fro CrCL and GFR - continue to avoid benzodiazepine's; reduce the possibility of delirium - complete antiinfectives per ID rec's - prn analgesia per CPOT score - Maintenance of sleep-wake cycle, avoid delirium - enteral nutritional support at goal rate as tolerated - G.I. & VTE prophylaxis withy heparin and Famotidine - PT/OT/ROM exercises - continue mobility protocols for pressure ulcer prophylaxis - Monitor hemodynamics closely - continue other care per attending / other consultants - Influenza and pneumonia vaccinations addressed per protocol - continue other care per attending / other consultants .... Re-evaluate in am & prn CONDITION: CRITICAL PROGNOSIS: GUARDED CODE STATUS: FULL CODE The high probability of a clinically significant, sudden or life-threatening deterioration of the [respiratory, cardiovascular, endocrine, renal & neurologic] system(s) required my full and direct attention, intervention and personal management. The aggregate critical care time was [32] minutes without overlap. Time includes spent on; [x] Data Review and interpretation [x] Patient assessment and monitoring of vital signs [x] Documentation [x] Medication orders and management Subjective Date of service: 06/11/19 Principal diagnosis: Ac hypoxemic resp failure; Bob. PNA; PUI CVOVID-19; DKA; Severe sepsis Interval history: Patient is seen today for: Ac hypoxemic resp failure; Bob. pneumonia; PUI COVID- 19; DKA; Severe sepsis Seen and examined at bedside; 24hour events reviewed; nursing and respiratory care staff consulted; no adverse overnight events reported to me; resting peacefully in bed; on PSV trial at Psupp of 15 and with intermittently high RR; she denies acute chest pains or palpitations; No N/V/F/C PUI?: Yes COVID19: Positive Objective Vital Signs - 12hr 06/11/19 06/11/19 06/11/19 02:46 03:00 03:10 Temperature Pulse Rate 93 H 92 H 92 H Pulse Rate [ Right Dorsalis Pedis] Respiratory 20 18 Rate Blood Pressure 124/72 132/79 O2 Sat by Pulse 96 96 91 Oximetry 06/11/19 06/11/19 06/11/19 03:16 03:30 03:46 Temperature Pulse Rate 94 H 97 H 98 H Pulse Rate [ Right Dorsalis Pedis] Respiratory 22 20 19 Rate Blood Pressure 132/79 130/78 130/78 O2 Sat by Pulse 97 95 95 Oximetry 06/11/19 06/11/19 06/11/19 04:00 04:16 04:30 Temperature 100.0 F H Pulse Rate 94 H 95 H 95 H Pulse Rate [ Right Dorsalis Pedis] Respiratory 22 16 20 Rate Blood Pressure 138/74 138/74 146/84 O2 Sat by Pulse 95 91 94 Oximetry 06/11/19 06/11/19 06/11/19 04:46 05:00 05:10 Temperature Pulse Rate 91 H 92 H 92 H Pulse Rate [ Right Dorsalis Pedis] Respiratory 14 Rate Blood Pressure 138/74 138/74 O2 Sat by Pulse 92 92 91 Oximetry 06/11/19 06/11/19 06/11/19 05:16 05:19 05:30 Temperature Pulse Rate 86 99 H 86 Pulse Rate [ Right Dorsalis Pedis] Respiratory 20 19 Rate Blood Pressure 146/84 142/85 125/77 O2 Sat by Pulse 93 93 93 Oximetry 06/11/19 06/11/19 06/11/19 05:46 06:00 06:16 Temperature Pulse Rate 94 H 86 91 H Pulse Rate [ Right Dorsalis Pedis] Respiratory 18 17 17 Rate Blood Pressure 125/77 125/77 108/67 O2 Sat by Pulse 92 93 96 Oximetry 06/11/19 06/11/19 06/11/19 06:30 06:46 07:00 Temperature Pulse Rate 93 H 87 89 Pulse Rate [ Right Dorsalis Pedis] Respiratory 16 21 21 Rate Blood Pressure 121/79 108/67 115/70 O2 Sat by Pulse 96 96 95 Oximetry 06/11/19 06/11/19 06/11/19 07:16 07:30 07:46 Temperature Pulse Rate 95 H 90 89 Pulse Rate [ Right Dorsalis Pedis] Respiratory 12 28 H 22 Rate Blood Pressure 115/70 132/78 132/78 O2 Sat by Pulse 96 96 96 Oximetry 06/11/19 06/11/19 06/11/19 07:48 08:00 08:16 Temperature 97.9 F Pulse Rate 87 88 89 Pulse Rate [ 84 Right Dorsalis Pedis] Respiratory 29 H 25 H 30 H Rate Blood Pressure 108/67 130/80 130/80 O2 Sat by Pulse 96 96 96 Oximetry 06/11/19 06/11/19 06/11/19 08:30 08:46 09:00 Temperature Pulse Rate 87 89 90 Pulse Rate [ Right Dorsalis Pedis] Respiratory 31 H 25 H 27 H Rate Blood Pressure 136/81 136/81 120/76 O2 Sat by Pulse 96 96 95 Oximetry 06/11/19 06/11/19 06/11/19 09:16 09:30 09:40 Temperature Pulse Rate 86 89 91 H Pulse Rate [ Right Dorsalis Pedis] Respiratory 29 H 29 H Rate Blood Pressure 120/76 120/76 146/91 O2 Sat by Pulse 95 95 Oximetry 06/11/19 06/11/19 06/11/19 09:46 10:00 10:16 Temperature Pulse Rate 100 H 89 86 Pulse Rate [ Right Dorsalis Pedis] Respiratory 29 H 30 H 31 H Rate Blood Pressure 146/91 147/87 147/87 O2 Sat by Pulse 96 95 94 Oximetry 06/11/19 06/11/19 06/11/19 10:30 10:46 11:00 Temperature Pulse Rate 86 88 84 Pulse Rate [ Right Dorsalis Pedis] Respiratory 25 H 28 H 28 H Rate Blood Pressure 118/72 147/87 147/87 O2 Sat by Pulse 96 96 95 Oximetry 06/11/19 06/11/19 06/11/19 11:07 11:16 11:30 Temperature Pulse Rate 88 89 97 H Pulse Rate [ Right Dorsalis Pedis] Respiratory 28 H 28 H 23 Rate Blood Pressure 147/87 103/64 129/79 O2 Sat by Pulse 96 96 96 Oximetry 06/11/19 06/11/19 06/11/19 11:46 12:00 12:16 Temperature 98.0 F Pulse Rate 87 100 H 88 Pulse Rate [ Right Dorsalis Pedis] Respiratory 29 H 21 30 H Rate Blood Pressure 129/79 134/96 134/96 O2 Sat by Pulse 95 96 94 Oximetry 06/11/19 06/11/19 06/11/19 12:30 12:46 13:00 Temperature Pulse Rate 91 H 89 83 Pulse Rate [ Right Dorsalis Pedis] Respiratory 29 H 31 H 33 H Rate Blood Pressure 134/96 145/89 123/75 O2 Sat by Pulse 94 94 91 Oximetry 06/11/19 06/11/19 06/11/19 13:16 13:30 13:46 Temperature Pulse Rate 87 86 91 H Pulse Rate [ Right Dorsalis Pedis] Respiratory 30 H 32 H 24 Rate Blood Pressure 123/75 143/86 143/86 O2 Sat by Pulse 92 94 96 Oximetry 06/11/19 06/11/19 14:00 14:16 Temperature Pulse Rate 90 86 Pulse Rate [ Right Dorsalis Pedis] Respiratory 28 H 27 H Rate Blood Pressure 152/91 152/91 O2 Sat by Pulse 96 96 Oximetry Constitutional: no acute distress, other (Atraumatic, normocephalic, no patient- ventilator dys-synchrony) Eyes: non-icteric ENT: oropharynx moist, other (OGT in place, ETT in palce) Neck: supple, no lymphadenopathy, no JVD Effort: mildly labored Ascultation: Bilateral: diminished breath sounds, rhonchi Percussion: Bilateral: not dull Cardiovascular: irregular rhythm, other (S1,S2, no murmurs) Gastrointestinal: normoactive bowel sounds, soft, non-tender, non-distended Integumentary: normal Extremities: no cyanosis, no edema, pulses normal, no ischemia or petechiae Neurologic: normal mental status, non-focal exam, pupils equal and round, motor strength normal and Psychiatric: mood appropriate, affect normal CBC and BMP: 06/12/19 03:58 06/12/19 03:58 ABG, PT/INR, D-dimer: ABG ABG pH 7.472 pH Units (7.350-7.450) H 06/10/19 04:05 ABG pCO2 43.8 mm Hg 06/10/19 04:05 ABG pO2 63.0 mm Hg (80.0-90.0) L 06/10/19 04:05 ABG O2 Saturation 94.5 % (95.0-99.0) L 06/10/19 04:05 PT/INR, D-dimer D-Dimer 1206.09 ng/mlDDU (0-234) H 06/11/19 04:31 Abnormal lab findings: Abnormal Labs 06/03/19 06/03/19 06/03/19 10:59 11:15 11:48 WBC RBC Hgb Hct MCH RDW Plt Count Seg Neuts % (Manual) Lymphocytes % (Manual) Monocytes % (Manual) Seg Neutrophils # Man Lymphocytes # (Manual) Monocytes # (Manual) D-Dimer ABG pH ABG pO2 ABG HCO3 ABG O2 Saturation ABG Base Excess ABG Hemoglobin VBG pH Oxyhemoglobin Sodium Potassium Chloride Carbon Dioxide BUN Creatinine Glucose POC Glucose 372 H Hemoglobin A1c Lactic Acid Calcium Phosphorus 11.70 H Magnesium 4.40 H Ferritin AST Alkaline Phosphatase Lactate Dehydrogenase C-Reactive Protein Total Protein Albumin Triglycerides Cholesterol Urine Creatinine 37.4 H Urine Microalbumin 65.1 H Vancomycin Trough Salicylates Acetaminophen 06/03/19 06/03/19 06/03/19 11:51 11:51 11:51 WBC 23.3 H RBC 6.43 H Hgb 17.7 H Hct 59.9 H* MCH RDW 17.1 H Plt Count Seg Neuts % (Manual) 71.0 H Lymphocytes % (Manual) 11.0 L Monocytes % (Manual) 8.0 H Seg Neutrophils # Man 16.5 H Lymphocytes # (Manual) Monocytes # (Manual) 1.9 H D-Dimer ABG pH ABG pO2 ABG HCO3 ABG O2 Saturation ABG Base Excess ABG Hemoglobin VBG pH Oxyhemoglobin Sodium Potassium Chloride Carbon Dioxide 4 L* BUN 41 H Creatinine 1.8 H Glucose 636 H* POC Glucose Hemoglobin A1c Lactic Acid 3.20 H* Calcium 10.9 H Phosphorus Magnesium Ferritin AST 43 H Alkaline Phosphatase 147 H Lactate Dehydrogenase 673 H C-Reactive Protein 14.70 H Total Protein 8.9 H Albumin Triglycerides Cholesterol Urine Creatinine Urine Microalbumin Vancomycin Trough Salicylates Acetaminophen 06/03/19 06/03/19 06/03/19 11:51 11:51 11:51 WBC RBC Hgb Hct MCH RDW Plt Count Seg Neuts % (Manual) Lymphocytes % (Manual) Monocytes % (Manual) Seg Neutrophils # Man Lymphocytes # (Manual) Monocytes # (Manual) D-Dimer ABG pH ABG pO2 ABG HCO3 ABG O2 Saturation ABG Base Excess ABG Hemoglobin VBG pH 6.901 L* Oxyhemoglobin Sodium Potassium Chloride Carbon Dioxide BUN Creatinine Glucose POC Glucose Hemoglobin A1c Lactic Acid Calcium Phosphorus Magnesium Ferritin AST Alkaline Phosphatase Lactate Dehydrogenase C-Reactive Protein Total Protein Albumin Triglycerides Cholesterol Urine Creatinine Urine Microalbumin Vancomycin Trough Salicylates < 0.3 L Acetaminophen < 5.0 L 06/03/19 06/03/19 06/03/19 11:51 11:51 12:34 WBC RBC Hgb Hct MCH RDW Plt Count Seg Neuts % (Manual) Lymphocytes % (Manual) Monocytes % (Manual) Seg Neutrophils # Man Lymphocytes # (Manual) Monocytes # (Manual) D-Dimer 4311.60 H ABG pH ABG pO2 ABG HCO3 ABG O2 Saturation ABG Base Excess ABG Hemoglobin VBG pH Oxyhemoglobin Sodium Potassium Chloride Carbon Dioxide BUN Creatinine Glucose POC Glucose Hemoglobin A1c Lactic Acid 5.20 H* Calcium Phosphorus Magnesium Ferritin 1037.0 H AST Alkaline Phosphatase Lactate Dehydrogenase C-Reactive Protein Total Protein Albumin Triglycerides Cholesterol Urine Creatinine Urine Microalbumin Vancomycin Trough Salicylates Acetaminophen 06/03/19 06/03/19 06/03/19 14:30 16:03 17:00 WBC RBC Hgb Hct MCH RDW Plt Count Seg Neuts % (Manual) Lymphocytes % (Manual) Monocytes % (Manual) Seg Neutrophils # Man Lymphocytes # (Manual) Monocytes # (Manual) D-Dimer ABG pH 6.880 L* ABG pO2 489.9 H ABG HCO3 7.1 L ABG O2 Saturation 99.6 H ABG Base Excess -26.1 L ABG Hemoglobin 16.2 H VBG pH Oxyhemoglobin Sodium Potassium Chloride Carbon Dioxide BUN Creatinine Glucose POC Glucose 335 H Hemoglobin A1c 9.6 H Lactic Acid Calcium Phosphorus Magnesium Ferritin AST Alkaline Phosphatase Lactate Dehydrogenase C-Reactive Protein Total Protein Albumin Triglycerides Cholesterol Urine Creatinine Urine Microalbumin Vancomycin Trough Salicylates Acetaminophen 06/03/19 06/03/19 06/03/19 18:14 18:24 19:00 WBC RBC Hgb Hct MCH RDW Plt Count Seg Neuts % (Manual) Lymphocytes % (Manual) Monocytes % (Manual) Seg Neutrophils # Man Lymphocytes # (Manual) Monocytes # (Manual) D-Dimer ABG pH 7.057 L* ABG pO2 97.2 H ABG HCO3 5.5 L ABG O2 Saturation ABG Base Excess -23.0 L ABG Hemoglobin 18.1 H VBG pH Oxyhemoglobin 94.4 L Sodium Potassium Chloride Carbon Dioxide BUN Creatinine Glucose POC Glucose 285 H Hemoglobin A1c Lactic Acid 3.40 H* Calcium Phosphorus Magnesium Ferritin AST Alkaline Phosphatase Lactate Dehydrogenase C-Reactive Protein Total Protein Albumin Triglycerides Cholesterol Urine Creatinine Urine Microalbumin Vancomycin Trough Salicylates Acetaminophen 06/03/19 06/03/19 06/03/19 19:00 19:00 19:52 WBC RBC Hgb Hct MCH RDW Plt Count Seg Neuts % (Manual) Lymphocytes % (Manual) Monocytes % (Manual) Seg Neutrophils # Man Lymphocytes # (Manual) Monocytes # (Manual) D-Dimer ABG pH ABG pO2 ABG HCO3 ABG O2 Saturation ABG Base Excess ABG Hemoglobin VBG pH Oxyhemoglobin Sodium 151 H Potassium Chloride 120.8 H Carbon Dioxide 6 L* BUN 33 H Creatinine 1.4 H Glucose 339 H POC Glucose 316 H Hemoglobin A1c Lactic Acid Calcium Phosphorus Magnesium Ferritin AST 47 H Alkaline Phosphatase 130 H Lactate Dehydrogenase C-Reactive Protein Total Protein Albumin 3.7 L Triglycerides 424 H Cholesterol 250 H Urine Creatinine Urine Microalbumin Vancomycin Trough Salicylates Acetaminophen 06/03/19 06/03/19 06/03/19 20:21 20:21 21:01 WBC RBC Hgb Hct MCH RDW Plt Count Seg Neuts % (Manual) Lymphocytes % (Manual) Monocytes % (Manual) Seg Neutrophils # Man Lymphocytes # (Manual) Monocytes # (Manual) D-Dimer ABG pH ABG pO2 ABG HCO3 ABG O2 Saturation ABG Base Excess ABG Hemoglobin VBG pH Oxyhemoglobin Sodium 153 H Potassium Chloride 121.8 H Carbon Dioxide 6 L* BUN 34 H Creatinine 1.3 H Glucose 324 H POC Glucose 245 H Hemoglobin A1c Lactic Acid 3.10 H* Calcium Phosphorus Magnesium Ferritin AST Alkaline Phosphatase Lactate Dehydrogenase C-Reactive Protein Total Protein Albumin Triglycerides Cholesterol Urine Creatinine Urine Microalbumin Vancomycin Trough Salicylates Acetaminophen 06/03/19 06/03/19 06/03/19 21:25 21:32 22:42 WBC RBC Hgb Hct MCH RDW Plt Count Seg Neuts % (Manual) Lymphocytes % (Manual) Monocytes % (Manual) Seg Neutrophils # Man Lymphocytes # (Manual) Monocytes # (Manual) D-Dimer ABG pH 7.172 L* ABG pO2 107.2 H ABG HCO3 5.2 L ABG O2 Saturation ABG Base Excess -20.5 L ABG Hemoglobin 17.3 H VBG pH Oxyhemoglobin Sodium 155 H Potassium 2.6 L* D Chloride 130.1 H Carbon Dioxide 5 L* BUN 24 H Creatinine Glucose 212 H POC Glucose 225 H Hemoglobin A1c Lactic Acid Calcium 5.8 L* D Phosphorus Magnesium Ferritin AST Alkaline Phosphatase Lactate Dehydrogenase C-Reactive Protein Total Protein Albumin Triglycerides Cholesterol Urine Creatinine Urine Microalbumin Vancomycin Trough Salicylates Acetaminophen 06/03/19 06/04/19 06/04/19 23:32 00:04 01:25 WBC RBC Hgb Hct MCH RDW Plt Count Seg Neuts % (Manual) Lymphocytes % (Manual) Monocytes % (Manual) Seg Neutrophils # Man Lymphocytes # (Manual) Monocytes # (Manual) D-Dimer ABG pH ABG pO2 ABG HCO3 ABG O2 Saturation ABG Base Excess ABG Hemoglobin VBG pH Oxyhemoglobin Sodium 151 H 151 H Potassium 1.5 L* D Chloride 139.0 H 124.7 H Carbon Dioxide 3 L* 9 L* BUN 31 H Creatinine 0.2 L D Glucose 117 H 241 H POC Glucose 231 H Hemoglobin A1c Lactic Acid Calcium 3.1 L* D Phosphorus Magnesium Ferritin AST Alkaline Phosphatase Lactate Dehydrogenase C-Reactive Protein Total Protein Albumin Triglycerides Cholesterol Urine Creatinine Urine Microalbumin Vancomycin Trough Salicylates Acetaminophen 06/04/19 06/04/19 06/04/19 01:34 02:45 03:21 WBC RBC Hgb Hct MCH RDW Plt Count Seg Neuts % (Manual) Lymphocytes % (Manual) Monocytes % (Manual) Seg Neutrophils # Man Lymphocytes # (Manual) Monocytes # (Manual) D-Dimer ABG pH ABG pO2 ABG HCO3 ABG O2 Saturation ABG Base Excess ABG Hemoglobin VBG pH Oxyhemoglobin Sodium Potassium Chloride Carbon Dioxide BUN Creatinine Glucose POC Glucose 194 H 189 H 183 H Hemoglobin A1c Lactic Acid Calcium Phosphorus Magnesium Ferritin AST Alkaline Phosphatase Lactate Dehydrogenase C-Reactive Protein Total Protein Albumin Triglycerides Cholesterol Urine Creatinine Urine Microalbumin Vancomycin Trough Salicylates Acetaminophen 0406/04/19 06/04/19 04:50 05:07 06:27 WBC RBC Hgb Hct MCH RDW Plt Count Seg Neuts % (Manual) Lymphocytes % (Manual) Monocytes % (Manual) Seg Neutrophils # Man Lymphocytes # (Manual) Monocytes # (Manual) D-Dimer ABG pH ABG pO2 76.5 L ABG HCO3 12.9 L ABG O2 Saturation ABG Base Excess -9.0 L ABG Hemoglobin VBG pH Oxyhemoglobin Sodium Potassium Chloride Carbon Dioxide BUN Creatinine Glucose POC Glucose 200 H 164 H Hemoglobin A1c Lactic Acid Calcium Phosphorus Magnesium Ferritin AST Alkaline Phosphatase Lactate Dehydrogenase C-Reactive Protein Total Protein Albumin Triglycerides Cholesterol Urine Creatinine Urine Microalbumin Vancomycin Trough Salicylates Acetaminophen 06/04/19 06/04/19 06/04/19 07:00 07:00 07:00 WBC 13.4 H RBC 5.54 H Hgb 15.3 H Hct 46.1 H D MCH RDW Plt Count Seg Neuts % (Manual) 72.0 H Lymphocytes % (Manual) 6.0 L Monocytes % (Manual) Seg Neutrophils # Man 9.6 H Lymphocytes # (Manual) 0.8 L Monocytes # (Manual) D-Dimer ABG pH ABG pO2 ABG HCO3 ABG O2 Saturation ABG Base Excess ABG Hemoglobin VBG pH Oxyhemoglobin Sodium 158 H 156 H Potassium 2.7 L* D 2.6 L* Chloride 124.3 H 123.5 H Carbon Dioxide 11 L 11 L BUN 25 H 26 H Creatinine Glucose 192 H 190 H POC Glucose Hemoglobin A1c Lactic Acid Calcium Phosphorus Magnesium Ferritin AST 43 H Alkaline Phosphatase Lactate Dehydrogenase 590 H C-Reactive Protein 22.70 H Total Protein Albumin 2.9 L Triglycerides Cholesterol Urine Creatinine Urine Microalbumin Vancomycin Trough Salicylates Acetaminophen 06/04/19 06/04/19 06/04/19 07:00 07:00 07:14 WBC RBC Hgb Hct MCH RDW Plt Count Seg Neuts % (Manual) Lymphocytes % (Manual) Monocytes % (Manual) Seg Neutrophils # Man Lymphocytes # (Manual) Monocytes # (Manual) D-Dimer 2050.33 H ABG pH ABG pO2 ABG HCO3 ABG O2 Saturation ABG Base Excess ABG Hemoglobin VBG pH Oxyhemoglobin Sodium Potassium Chloride Carbon Dioxide BUN Creatinine Glucose POC Glucose 176 H Hemoglobin A1c Lactic Acid Calcium Phosphorus Magnesium Ferritin 941.3 H AST Alkaline Phosphatase Lactate Dehydrogenase C-Reactive Protein Total Protein Albumin Triglycerides Cholesterol Urine Creatinine Urine Microalbumin Vancomycin Trough Salicylates Acetaminophen 06/04/19 06/04/19 06/04/19 09:55 11:38 12:19 WBC RBC Hgb Hct MCH RDW Plt Count Seg Neuts % (Manual) Lymphocytes % (Manual) Monocytes % (Manual) Seg Neutrophils # Man Lymphocytes # (Manual) Monocytes # (Manual) D-Dimer ABG pH ABG pO2 ABG HCO3 ABG O2 Saturation ABG Base Excess ABG Hemoglobin VBG pH Oxyhemoglobin Sodium Potassium Chloride Carbon Dioxide BUN Creatinine Glucose POC Glucose 184 H 145 H 144 H Hemoglobin A1c Lactic Acid Calcium Phosphorus Magnesium Ferritin AST Alkaline Phosphatase Lactate Dehydrogenase C-Reactive Protein Total Protein Albumin Triglycerides Cholesterol Urine Creatinine Urine Microalbumin Vancomycin Trough Salicylates Acetaminophen 06/04/19 06/04/19 06/04/19 13:35 14:29 15:06 WBC RBC Hgb Hct MCH RDW Plt Count Seg Neuts % (Manual) Lymphocytes % (Manual) Monocytes % (Manual) Seg Neutrophils # Man Lymphocytes # (Manual) Monocytes # (Manual) D-Dimer ABG pH ABG pO2 ABG HCO3 ABG O2 Saturation ABG Base Excess ABG Hemoglobin VBG pH Oxyhemoglobin Sodium 157 H Potassium 2.4 L* Chloride 121.4 H Carbon Dioxide 20 L D BUN 21 H Creatinine Glucose 176 H POC Glucose 151 H 142 H Hemoglobin A1c Lactic Acid Calcium Phosphorus Magnesium Ferritin AST Alkaline Phosphatase Lactate Dehydrogenase C-Reactive Protein Total Protein Albumin Triglycerides Cholesterol Urine Creatinine Urine Microalbumin Vancomycin Trough Salicylates Acetaminophen 06/04/19 06/04/19 06/04/19 17:14 17:51 21:45 WBC RBC Hgb Hct MCH RDW Plt Count Seg Neuts % (Manual) Lymphocytes % (Manual) Monocytes % (Manual) Seg Neutrophils # Man Lymphocytes # (Manual) Monocytes # (Manual) D-Dimer ABG pH ABG pO2 ABG HCO3 ABG O2 Saturation ABG Base Excess ABG Hemoglobin VBG pH Oxyhemoglobin Sodium Potassium Chloride Carbon Dioxide BUN Creatinine Glucose POC Glucose 200 H 159 H 143 H Hemoglobin A1c Lactic Acid Calcium Phosphorus Magnesium Ferritin AST Alkaline Phosphatase Lactate Dehydrogenase C-Reactive Protein Total Protein Albumin Triglycerides Cholesterol Urine Creatinine Urine Microalbumin Vancomycin Trough Salicylates Acetaminophen 06/04/19 06/04/19 06/04/19 22:20 22:21 23:27 WBC RBC Hgb Hct MCH RDW Plt Count Seg Neuts % (Manual) Lymphocytes % (Manual) Monocytes % (Manual) Seg Neutrophils # Man Lymphocytes # (Manual) Monocytes # (Manual) D-Dimer ABG pH 7.572 H ABG pO2 58.5 L ABG HCO3 ABG O2 Saturation ABG Base Excess 3.5 H ABG Hemoglobin 20.0 H VBG pH Oxyhemoglobin 94.6 L Sodium Potassium Chloride Carbon Dioxide BUN Creatinine Glucose POC Glucose 154 H 147 H Hemoglobin A1c Lactic Acid Calcium Phosphorus Magnesium Ferritin AST Alkaline Phosphatase Lactate Dehydrogenase C-Reactive Protein Total Protein Albumin Triglycerides Cholesterol Urine Creatinine Urine Microalbumin Vancomycin Trough Salicylates Acetaminophen 06/05/19 06/05/19 06/05/19 00:27 01:16 02:20 WBC RBC Hgb Hct MCH RDW Plt Count Seg Neuts % (Manual) Lymphocytes % (Manual) Monocytes % (Manual) Seg Neutrophils # Man Lymphocytes # (Manual) Monocytes # (Manual) D-Dimer ABG pH ABG pO2 ABG HCO3 ABG O2 Saturation ABG Base Excess ABG Hemoglobin VBG pH Oxyhemoglobin Sodium Potassium Chloride Carbon Dioxide BUN Creatinine Glucose POC Glucose 124 H 126 H 156 H Hemoglobin A1c Lactic Acid Calcium Phosphorus Magnesium Ferritin AST Alkaline Phosphatase Lactate Dehydrogenase C-Reactive Protein Total Protein Albumin Triglycerides Cholesterol Urine Creatinine Urine Microalbumin Vancomycin Trough Salicylates Acetaminophen 06/05/19 06/05/19 06/05/19 03:44 03:59 04:52 WBC RBC Hgb Hct MCH RDW Plt Count Seg Neuts % (Manual) Lymphocytes % (Manual) Monocytes % (Manual) Seg Neutrophils # Man Lymphocytes # (Manual) Monocytes # (Manual) D-Dimer ABG pH ABG pO2 ABG HCO3 ABG O2 Saturation ABG Base Excess ABG Hemoglobin VBG pH Oxyhemoglobin Sodium 155 H Potassium 3.0 L D Chloride 114.7 H Carbon Dioxide BUN Creatinine 0.6 L Glucose 136 H POC Glucose 143 H 141 H Hemoglobin A1c Lactic Acid Calcium Phosphorus Magnesium Ferritin AST Alkaline Phosphatase Lactate Dehydrogenase C-Reactive Protein Total Protein Albumin Triglycerides Cholesterol Urine Creatinine Urine Microalbumin Vancomycin Trough Salicylates Acetaminophen 06/05/19 06/05/19 06/05/19 05:00 05:54 07:01 WBC RBC Hgb Hct MCH RDW Plt Count Seg Neuts % (Manual) Lymphocytes % (Manual) Monocytes % (Manual) Seg Neutrophils # Man Lymphocytes # (Manual) Monocytes # (Manual) D-Dimer ABG pH 7.621 H* ABG pO2 54.3 L ABG HCO3 29.8 H ABG O2 Saturation ABG Base Excess 8.8 H ABG Hemoglobin VBG pH Oxyhemoglobin Sodium Potassium Chloride Carbon Dioxide BUN Creatinine Glucose POC Glucose 155 H 145 H Hemoglobin A1c Lactic Acid Calcium Phosphorus Magnesium Ferritin AST Alkaline Phosphatase Lactate Dehydrogenase C-Reactive Protein Total Protein Albumin Triglycerides Cholesterol Urine Creatinine Urine Microalbumin Vancomycin Trough Salicylates Acetaminophen 06/05/19 06/05/19 06/05/19 12:13 18:23 21:00 WBC RBC Hgb Hct MCH RDW Plt Count Seg Neuts % (Manual) Lymphocytes % (Manual) Monocytes % (Manual) Seg Neutrophils # Man Lymphocytes # (Manual) Monocytes # (Manual) D-Dimer ABG pH ABG pO2 ABG HCO3 ABG O2 Saturation ABG Base Excess ABG Hemoglobin VBG pH Oxyhemoglobin Sodium Potassium Chloride Carbon Dioxide BUN Creatinine Glucose POC Glucose 202 H 257 H Hemoglobin A1c Lactic Acid Calcium Phosphorus Magnesium Ferritin AST Alkaline Phosphatase Lactate Dehydrogenase C-Reactive Protein Total Protein Albumin Triglycerides Cholesterol Urine Creatinine Urine Microalbumin Vancomycin Trough 4.2 L Salicylates Acetaminophen 06/05/19 06/06/19 06/06/19 23:55 04:16 04:37 WBC RBC Hgb Hct MCH RDW Plt Count Seg Neuts % (Manual) Lymphocytes % (Manual) Monocytes % (Manual) Seg Neutrophils # Man Lymphocytes # (Manual) Monocytes # (Manual) D-Dimer 1279.22 H ABG pH 7.600 H ABG pO2 62.4 L ABG HCO3 28.0 H ABG O2 Saturation ABG Base Excess 6.6 H ABG Hemoglobin 10.4 L VBG pH Oxyhemoglobin Sodium Potassium Chloride Carbon Dioxide BUN Creatinine Glucose POC Glucose 267 H Hemoglobin A1c Lactic Acid Calcium Phosphorus Magnesium Ferritin AST Alkaline Phosphatase Lactate Dehydrogenase C-Reactive Protein Total Protein Albumin Triglycerides Cholesterol Urine Creatinine Urine Microalbumin Vancomycin Trough Salicylates Acetaminophen 06/06/19 06/06/19 06/06/19 04:37 04:37 04:37 WBC 12.2 H RBC 5.10 H Hgb Hct MCH 27 L RDW Plt Count Seg Neuts % (Manual) Lymphocytes % (Manual) Monocytes % (Manual) Seg Neutrophils # Man Lymphocytes # (Manual) Monocytes # (Manual) D-Dimer ABG pH ABG pO2 ABG HCO3 ABG O2 Saturation ABG Base Excess ABG Hemoglobin VBG pH Oxyhemoglobin Sodium 156 H Potassium 3.4 L Chloride 112.9 H Carbon Dioxide BUN 21 H Creatinine 0.6 L Glucose 332 H POC Glucose Hemoglobin A1c Lactic Acid Calcium Phosphorus Magnesium Ferritin 1649.0 H AST Alkaline Phosphatase Lactate Dehydrogenase 578 H C-Reactive Protein 22.10 H Total Protein Albumin Triglycerides Cholesterol Urine Creatinine Urine Microalbumin Vancomycin Trough Salicylates Acetaminophen 06/06/19 06/06/19 06/06/19 05:45 11:55 12:21 WBC RBC Hgb Hct MCH RDW Plt Count Seg Neuts % (Manual) Lymphocytes % (Manual) Monocytes % (Manual) Seg Neutrophils # Man Lymphocytes # (Manual) Monocytes # (Manual) D-Dimer ABG pH 7.511 H ABG pO2 123.0 H ABG HCO3 29.7 H ABG O2 Saturation ABG Base Excess 6.4 H ABG Hemoglobin VBG pH Oxyhemoglobin Sodium Potassium Chloride Carbon Dioxide BUN Creatinine Glucose POC Glucose 303 H 281 H Hemoglobin A1c Lactic Acid Calcium Phosphorus Magnesium Ferritin AST Alkaline Phosphatase Lactate Dehydrogenase C-Reactive Protein Total Protein Albumin Triglycerides Cholesterol Urine Creatinine Urine Microalbumin Vancomycin Trough Salicylates Acetaminophen 06/06/19 06/07/19 06/07/19 17:06 00:25 04:39 WBC RBC Hgb Hct MCH RDW Plt Count Seg Neuts % (Manual) Lymphocytes % (Manual) Monocytes % (Manual) Seg Neutrophils # Man Lymphocytes # (Manual) Monocytes # (Manual) D-Dimer ABG pH 7.507 H ABG pO2 46.4 L ABG HCO3 32.6 H ABG O2 Saturation 90.6 L ABG Base Excess 8.6 H ABG Hemoglobin VBG pH Oxyhemoglobin 89.2 L Sodium Potassium Chloride Carbon Dioxide BUN Creatinine Glucose POC Glucose 251 H 225 H Hemoglobin A1c Lactic Acid Calcium Phosphorus Magnesium Ferritin AST Alkaline Phosphatase Lactate Dehydrogenase C-Reactive Protein Total Protein Albumin Triglycerides Cholesterol Urine Creatinine Urine Microalbumin Vancomycin Trough Salicylates Acetaminophen 06/07/19 06/07/19 06/07/19 04:43 04:43 04:43 WBC 13.6 H RBC 5.14 H Hgb Hct 43.4 H MCH 27 L RDW Plt Count Seg Neuts % (Manual) Lymphocytes % (Manual) Monocytes % (Manual) Seg Neutrophils # Man Lymphocytes # (Manual) Monocytes # (Manual) D-Dimer ABG pH ABG pO2 ABG HCO3 ABG O2 Saturation ABG Base Excess ABG Hemoglobin VBG pH Oxyhemoglobin Sodium 166 H* D Potassium 3.0 L Chloride 122.9 H Carbon Dioxide BUN 27 H Creatinine 0.5 L Glucose 265 H POC Glucose Hemoglobin A1c Lactic Acid Calcium Phosphorus Magnesium Ferritin AST Alkaline Phosphatase Lactate Dehydrogenase C-Reactive Protein Total Protein Albumin Triglycerides 373 H Cholesterol Urine Creatinine Urine Microalbumin Vancomycin Trough Salicylates Acetaminophen 06/07/19 06/07/19 06/07/19 10:12 11:39 15:31 WBC RBC Hgb Hct MCH RDW Plt Count Seg Neuts % (Manual) Lymphocytes % (Manual) Monocytes % (Manual) Seg Neutrophils # Man Lymphocytes # (Manual) Monocytes # (Manual) D-Dimer ABG pH ABG pO2 ABG HCO3 ABG O2 Saturation ABG Base Excess ABG Hemoglobin VBG pH Oxyhemoglobin Sodium 163 H* 161 H* Potassium 3.1 L Chloride 117.7 H Carbon Dioxide BUN 22 H Creatinine 0.5 L Glucose 274 H POC Glucose 218 H Hemoglobin A1c Lactic Acid Calcium Phosphorus Magnesium Ferritin AST Alkaline Phosphatase Lactate Dehydrogenase C-Reactive Protein Total Protein Albumin Triglycerides Cholesterol Urine Creatinine Urine Microalbumin Vancomycin Trough Salicylates Acetaminophen 06/07/19 06/08/19 06/08/19 17:16 00:04 03:45 WBC RBC Hgb Hct MCH RDW Plt Count Seg Neuts % (Manual) Lymphocytes % (Manual) Monocytes % (Manual) Seg Neutrophils # Man Lymphocytes # (Manual) Monocytes # (Manual) D-Dimer ABG pH 7.504 H ABG pO2 54.2 L ABG HCO3 32.3 H ABG O2 Saturation 93.7 L ABG Base Excess 8.4 H ABG Hemoglobin VBG pH Oxyhemoglobin 92.2 L Sodium Potassium Chloride Carbon Dioxide BUN Creatinine Glucose POC Glucose 284 H 283 H Hemoglobin A1c Lactic Acid Calcium Phosphorus Magnesium Ferritin AST Alkaline Phosphatase Lactate Dehydrogenase C-Reactive Protein Total Protein Albumin Triglycerides Cholesterol Urine Creatinine Urine Microalbumin Vancomycin Trough Salicylates Acetaminophen 06/08/19 06/08/19 06/08/19 05:02 09:33 09:33 WBC RBC Hgb Hct MCH RDW Plt Count Seg Neuts % (Manual) Lymphocytes % (Manual) Monocytes % (Manual) Seg Neutrophils # Man Lymphocytes # (Manual) Monocytes # (Manual) D-Dimer 1319.18 H ABG pH ABG pO2 ABG HCO3 ABG O2 Saturation ABG Base Excess ABG Hemoglobin VBG pH Oxyhemoglobin Sodium Potassium Chloride Carbon Dioxide BUN Creatinine Glucose POC Glucose 291 H Hemoglobin A1c Lactic Acid Calcium Phosphorus Magnesium Ferritin 1274.0 H AST Alkaline Phosphatase Lactate Dehydrogenase C-Reactive Protein Total Protein Albumin Triglycerides Cholesterol Urine Creatinine Urine Microalbumin Vancomycin Trough Salicylates Acetaminophen 06/08/19 06/08/19 06/08/19 09:33 09:33 17:46 WBC 16.0 H RBC Hgb Hct MCH 27 L RDW Plt Count Seg Neuts % (Manual) Lymphocytes % (Manual) Monocytes % (Manual) Seg Neutrophils # Man Lymphocytes # (Manual) Monocytes # (Manual) D-Dimer ABG pH ABG pO2 ABG HCO3 ABG O2 Saturation ABG Base Excess ABG Hemoglobin VBG pH Oxyhemoglobin Sodium 157 H Potassium 3.1 L Chloride 116.7 H Carbon Dioxide BUN 24 H Creatinine 0.5 L Glucose 351 H POC Glucose 309 H Hemoglobin A1c Lactic Acid Calcium Phosphorus 2.20 L Magnesium 2.60 H Ferritin AST Alkaline Phosphatase 131 H Lactate Dehydrogenase 449 H C-Reactive Protein 9.70 H Total Protein 6.1 L Albumin 2.1 L Triglycerides Cholesterol Urine Creatinine Urine Microalbumin Vancomycin Trough Salicylates Acetaminophen 06/08/19 06/08/19 06/09/19 21:55 23:46 04:18 WBC RBC Hgb Hct MCH RDW Plt Count Seg Neuts % (Manual) Lymphocytes % (Manual) Monocytes % (Manual) Seg Neutrophils # Man Lymphocytes # (Manual) Monocytes # (Manual) D-Dimer ABG pH 7.480 H ABG pO2 70.9 L ABG HCO3 32.9 H ABG O2 Saturation ABG Base Excess 8.4 H ABG Hemoglobin 10.3 L VBG pH Oxyhemoglobin 94.8 L Sodium 151 H Potassium 3.3 L Chloride 112.7 H Carbon Dioxide 31 H BUN 24 H Creatinine 0.5 L Glucose 321 H POC Glucose 331 H Hemoglobin A1c Lactic Acid Calcium Phosphorus Magnesium Ferritin AST Alkaline Phosphatase Lactate Dehydrogenase C-Reactive Protein Total Protein Albumin Triglycerides Cholesterol Urine Creatinine Urine Microalbumin Vancomycin Trough Salicylates Acetaminophen 06/09/19 06/09/19 06/09/19 05:35 07:34 07:34 WBC 14.2 H RBC Hgb Hct MCH 27 L RDW Plt Count Seg Neuts % (Manual) Lymphocytes % (Manual) Monocytes % (Manual) Seg Neutrophils # Man Lymphocytes # (Manual) Monocytes # (Manual) D-Dimer ABG pH ABG pO2 ABG HCO3 ABG O2 Saturation ABG Base Excess ABG Hemoglobin VBG pH Oxyhemoglobin Sodium 153 H Potassium 3.0 L Chloride 113.6 H Carbon Dioxide BUN 26 H Creatinine 0.5 L Glucose 306 H POC Glucose 264 H Hemoglobin A1c Lactic Acid Calcium Phosphorus Magnesium Ferritin AST Alkaline Phosphatase Lactate Dehydrogenase 411 H C-Reactive Protein 6.00 H Total Protein Albumin Triglycerides 304 H Cholesterol Urine Creatinine Urine Microalbumin Vancomycin Trough Salicylates Acetaminophen 06/09/19 06/09/19 06/09/19 07:34 07:34 18:29 WBC RBC Hgb Hct MCH RDW Plt Count Seg Neuts % (Manual) Lymphocytes % (Manual) Monocytes % (Manual) Seg Neutrophils # Man Lymphocytes # (Manual) Monocytes # (Manual) D-Dimer 991.99 H ABG pH ABG pO2 ABG HCO3 ABG O2 Saturation ABG Base Excess ABG Hemoglobin VBG pH Oxyhemoglobin Sodium Potassium Chloride Carbon Dioxide BUN Creatinine Glucose POC Glucose 226 H Hemoglobin A1c Lactic Acid Calcium Phosphorus Magnesium Ferritin 1078.0 H AST Alkaline Phosphatase Lactate Dehydrogenase C-Reactive Protein Total Protein Albumin Triglycerides Cholesterol Urine Creatinine Urine Microalbumin Vancomycin Trough Salicylates Acetaminophen 06/09/19 06/09/19 06/10/19 19:22 23:43 04:05 WBC RBC Hgb Hct MCH RDW Plt Count Seg Neuts % (Manual) Lymphocytes % (Manual) Monocytes % (Manual) Seg Neutrophils # Man Lymphocytes # (Manual) Monocytes # (Manual) D-Dimer ABG pH 7.472 H ABG pO2 63.0 L ABG HCO3 31.3 H ABG O2 Saturation 94.5 L ABG Base Excess 6.9 H ABG Hemoglobin VBG pH Oxyhemoglobin 93.0 L Sodium Potassium Chloride 110.1 H Carbon Dioxide BUN 20 H Creatinine 0.4 L Glucose 237 H POC Glucose 177 H Hemoglobin A1c Lactic Acid Calcium Phosphorus Magnesium Ferritin AST Alkaline Phosphatase Lactate Dehydrogenase C-Reactive Protein Total Protein Albumin Triglycerides Cholesterol Urine Creatinine Urine Microalbumin Vancomycin Trough Salicylates Acetaminophen 06/10/19 06/10/19 06/10/19 06:28 12:30 18:08 WBC RBC Hgb Hct MCH RDW Plt Count Seg Neuts % (Manual) Lymphocytes % (Manual) Monocytes % (Manual) Seg Neutrophils # Man Lymphocytes # (Manual) Monocytes # (Manual) D-Dimer ABG pH ABG pO2 ABG HCO3 ABG O2 Saturation ABG Base Excess ABG Hemoglobin VBG pH Oxyhemoglobin Sodium Potassium Chloride Carbon Dioxide BUN Creatinine Glucose POC Glucose 172 H 166 H 172 H Hemoglobin A1c Lactic Acid Calcium Phosphorus Magnesium Ferritin AST Alkaline Phosphatase Lactate Dehydrogenase C-Reactive Protein Total Protein Albumin Triglycerides Cholesterol Urine Creatinine Urine Microalbumin Vancomycin Trough Salicylates Acetaminophen 06/10/19 06/10/19 06/10/19 23:53 Unknown Unknown WBC 13.7 H RBC Hgb Hct MCH RDW Plt Count 84 L Seg Neuts % (Manual) Lymphocytes % (Manual) Monocytes % (Manual) Seg Neutrophils # Man Lymphocytes # (Manual) Monocytes # (Manual) D-Dimer ABG pH ABG pO2 ABG HCO3 ABG O2 Saturation ABG Base Excess ABG Hemoglobin VBG pH Oxyhemoglobin Sodium 148 H Potassium 3.3 L Chloride 111.5 H Carbon Dioxide BUN 20 H Creatinine 0.4 L Glucose 185 H POC Glucose 186 H Hemoglobin A1c Lactic Acid Calcium Phosphorus Magnesium Ferritin AST Alkaline Phosphatase Lactate Dehydrogenase C-Reactive Protein Total Protein Albumin Triglycerides Cholesterol Urine Creatinine Urine Microalbumin Vancomycin Trough Salicylates Acetaminophen 06/11/19 06/11/19 06/11/19 04:31 04:31 04:31 WBC RBC Hgb Hct MCH RDW Plt Count Seg Neuts % (Manual) Lymphocytes % (Manual) Monocytes % (Manual) Seg Neutrophils # Man Lymphocytes # (Manual) Monocytes # (Manual) D-Dimer 1206.09 H ABG pH ABG pO2 ABG HCO3 ABG O2 Saturation ABG Base Excess ABG Hemoglobin VBG pH Oxyhemoglobin Sodium 146 H Potassium 3.3 L Chloride 109.4 H Carbon Dioxide BUN Creatinine 0.5 L Glucose 186 H POC Glucose Hemoglobin A1c Lactic Acid Calcium Phosphorus Magnesium Ferritin 905.9 H AST Alkaline Phosphatase Lactate Dehydrogenase 417 H C-Reactive Protein 3.30 H Total Protein Albumin Triglycerides Cholesterol Urine Creatinine Urine Microalbumin Vancomycin Trough Salicylates Acetaminophen 06/11/19 06/11/19 06/11/19 04:31 05:35 11:41 WBC 17.0 H RBC Hgb Hct MCH 27 L RDW Plt Count Seg Neuts % (Manual) Lymphocytes % (Manual) Monocytes % (Manual) Seg Neutrophils # Man Lymphocytes # (Manual) Monocytes # (Manual) D-Dimer ABG pH ABG pO2 ABG HCO3 ABG O2 Saturation ABG Base Excess ABG Hemoglobin VBG pH Oxyhemoglobin Sodium Potassium Chloride Carbon Dioxide BUN Creatinine Glucose POC Glucose 151 H 209 H Hemoglobin A1c Lactic Acid Calcium Phosphorus Magnesium Ferritin AST Alkaline Phosphatase Lactate Dehydrogenase C-Reactive Protein Total Protein Albumin Triglycerides Cholesterol Urine Creatinine Urine Microalbumin Vancomycin Trough Salicylates Acetaminophen Chest x-ray: pending Allied health notes reviewed: nursing
--- NOTE | 2019-06-11 14:37 | Progress Note ---
Assessment and Plan - Patient Problems (1) Hypernatremia Current Visit: Yes Status: Acute Plan to address problem: Likely in the setting of severe dehydration that can be commonly seen in DKA. Agree with current free water replacement, which now we are utilizing free water flushed. Serum sodium levels are showing steady improvement. Will continue to monitor. (2) Diabetic ketoacidosis Current Visit: Yes Status: Acute Plan to address problem: Continue current treatment pre protocol. She has been transitioned off insulin regimen and her anion gap has appropriately closed. DM management per primary attending (3) Acute encephalopathy Current Visit: Yes Status: Acute Plan to address problem: Possibly in the setting of hypernatremia and DKA. Will continue to monitor. (4) Acute respiratory failure with hypoxia Current Visit: Yes Status: Acute Plan to address problem: Management per pulmonology. (5) Suspected COVID-19 virus infection Current Visit: Yes Status: Acute Plan to address problem: Per hospitalist note, COVID-19 (+). Follow up further recommendations per ID. (6) Hypertension Current Visit: No Status: Chronic Qualifiers: Qualified Code(s): I10 - Essential (primary) hypertension Plan to address problem: Will monitor on current regimen. (7) Hypokalemia Current Visit: Yes Status: Acute Plan to address problem: Replete per protocol. Subjective Date of service: 06/11/19 Principal diagnosis: Ac hypoxemic resp failure; Bob. PNA; PUI CVOVID-19; DKA; Severe sepsis Interval history: Remains intubated. Patient is positive COVID-19. Her hypernatremia is improving with appropriate free water replacement. Patient is receiving free water flushes at this time, at 300 cc q4hrs. PUI?: No COVID19: Positive Objective - Vital Signs Vital signs: Vital Signs - 12hr 06/11/19 06/11/19 06/11/19 02:46 03:00 03:10 Temperature Pulse Rate 93 H 92 H 92 H Pulse Rate [ Right Dorsalis Pedis] Respiratory 20 18 Rate Blood Pressure 124/72 132/79 O2 Sat by Pulse 96 96 91 Oximetry 06/11/19 06/11/19 06/11/19 03:16 03:30 03:46 Temperature Pulse Rate 94 H 97 H 98 H Pulse Rate [ Right Dorsalis Pedis] Respiratory 22 20 19 Rate Blood Pressure 132/79 130/78 130/78 O2 Sat by Pulse 97 95 95 Oximetry 06/11/19 06/11/19 06/11/19 04:00 04:16 04:30 Temperature 100.0 F H Pulse Rate 94 H 95 H 95 H Pulse Rate [ Right Dorsalis Pedis] Respiratory 22 16 20 Rate Blood Pressure 138/74 138/74 146/84 O2 Sat by Pulse 95 91 94 Oximetry 06/11/19 06/11/19 06/11/19 04:46 05:00 05:10 Temperature Pulse Rate 91 H 92 H 92 H Pulse Rate [ Right Dorsalis Pedis] Respiratory 14 Rate Blood Pressure 138/74 138/74 O2 Sat by Pulse 92 92 91 Oximetry 06/11/19 06/11/19 06/11/19 05:16 05:19 05:30 Temperature Pulse Rate 86 99 H 86 Pulse Rate [ Right Dorsalis Pedis] Respiratory 20 19 Rate Blood Pressure 146/84 142/85 125/77 O2 Sat by Pulse 93 93 93 Oximetry 06/11/19 06/11/19 06/11/19 05:46 06:00 06:16 Temperature Pulse Rate 94 H 86 91 H Pulse Rate [ Right Dorsalis Pedis] Respiratory 18 17 17 Rate Blood Pressure 125/77 125/77 108/67 O2 Sat by Pulse 92 93 96 Oximetry 06/11/19 06/11/19 06/11/19 06:30 06:46 07:00 Temperature Pulse Rate 93 H 87 89 Pulse Rate [ Right Dorsalis Pedis] Respiratory 16 21 21 Rate Blood Pressure 121/79 108/67 115/70 O2 Sat by Pulse 96 96 95 Oximetry 06/11/19 06/11/19 06/11/19 07:16 07:30 07:46 Temperature Pulse Rate 95 H 90 89 Pulse Rate [ Right Dorsalis Pedis] Respiratory 12 28 H 22 Rate Blood Pressure 115/70 132/78 132/78 O2 Sat by Pulse 96 96 96 Oximetry 06/11/19 06/11/19 06/11/19 07:48 08:00 08:16 Temperature 97.9 F Pulse Rate 87 88 89 Pulse Rate [ 84 Right Dorsalis Pedis] Respiratory 29 H 25 H 30 H Rate Blood Pressure 108/67 130/80 130/80 O2 Sat by Pulse 96 96 96 Oximetry 06/11/19 06/11/19 06/11/19 08:30 08:46 09:00 Temperature Pulse Rate 87 89 90 Pulse Rate [ Right Dorsalis Pedis] Respiratory 31 H 25 H 27 H Rate Blood Pressure 136/81 136/81 120/76 O2 Sat by Pulse 96 96 95 Oximetry 06/11/19 06/11/19 06/11/19 09:16 09:30 09:40 Temperature Pulse Rate 86 89 91 H Pulse Rate [ Right Dorsalis Pedis] Respiratory 29 H 29 H Rate Blood Pressure 120/76 120/76 146/91 O2 Sat by Pulse 95 95 Oximetry 06/11/19 06/11/19 06/11/19 09:46 10:00 10:16 Temperature Pulse Rate 100 H 89 86 Pulse Rate [ Right Dorsalis Pedis] Respiratory 29 H 30 H 31 H Rate Blood Pressure 146/91 147/87 147/87 O2 Sat by Pulse 96 95 94 Oximetry 06/11/19 06/11/19 06/11/19 10:30 10:46 11:00 Temperature Pulse Rate 86 88 84 Pulse Rate [ Right Dorsalis Pedis] Respiratory 25 H 28 H 28 H Rate Blood Pressure 118/72 147/87 147/87 O2 Sat by Pulse 96 96 95 Oximetry 06/11/19 06/11/19 06/11/19 11:07 11:16 11:30 Temperature Pulse Rate 88 89 97 H Pulse Rate [ Right Dorsalis Pedis] Respiratory 28 H 28 H 23 Rate Blood Pressure 147/87 103/64 129/79 O2 Sat by Pulse 96 96 96 Oximetry 06/11/19 06/11/19 06/11/19 11:46 12:00 12:16 Temperature 98.0 F Pulse Rate 87 100 H 88 Pulse Rate [ Right Dorsalis Pedis] Respiratory 29 H 21 30 H Rate Blood Pressure 129/79 134/96 134/96 O2 Sat by Pulse 95 96 94 Oximetry 06/11/19 06/11/19 06/11/19 12:30 12:46 13:00 Temperature Pulse Rate 91 H 89 83 Pulse Rate [ Right Dorsalis Pedis] Respiratory 29 H 31 H 33 H Rate Blood Pressure 134/96 145/89 123/75 O2 Sat by Pulse 94 94 91 Oximetry 06/11/19 06/11/19 06/11/19 13:16 13:30 13:46 Temperature Pulse Rate 87 86 91 H Pulse Rate [ Right Dorsalis Pedis] Respiratory 30 H 32 H 24 Rate Blood Pressure 123/75 143/86 143/86 O2 Sat by Pulse 92 94 96 Oximetry 06/11/19 06/11/19 14:00 14:16 Temperature Pulse Rate 90 86 Pulse Rate [ Right Dorsalis Pedis] Respiratory 28 H 27 H Rate Blood Pressure 152/91 152/91 O2 Sat by Pulse 96 96 Oximetry - General Appearance General appearance: chronically ill, intubated EENT: ATNC Neck: no JVD Respiratory: Present: Decreased Breath Sounds Cardiology: regular Gastrointestinal: normal Integumentary: no rash Musculoskeletal: deferred - Lab 06/11/19 04:31 06/11/19 04:31 Most recent lab results ABG pH 7.472 pH Units (7.350-7.450) H 06/10/19 04:05 ABG pCO2 43.8 mm Hg 06/10/19 04:05 ABG pO2 63.0 mm Hg (80.0-90.0) L 06/10/19 04:05 ABG HCO3 31.3 mmol/L (20.0-26.0) H 06/10/19 04:05 ABG O2 Saturation 94.5 % (95.0-99.0) L 06/10/19 04:05 Calcium 9.1 mg/dL (8.4-10.2) 06/11/19 04:31 Phosphorus 2.20 mg/dL (2.5-4.5) L 06/08/19 09:33 Magnesium 2.60 mg/dL (1.7-2.3) H 06/08/19 09:33 Urine Creatinine 37.4 mg/dL (0.1-20.0) H 06/03/19 11:48 Urine Sodium 130 mmol/L 06/07/19 17:00 - Allied health notes Allied health notes reviewed: nursing Medications & Allergies - Medications Allergies/Adverse Reactions: Allergies No Known Allergies Allergy (Verified 01/05/15 09:29) Home Medications: Home Medications Medication Instructions Recorded Confirmed Last Taken Type Albuterol INH(or & Nicu Only) 2 puff IH QID PRN 03/13/14 01/05/15 01/04/15 History [ProAir HFA Inhaler] Metformin HCl [metFORMIN ER] 500 mg PO QDAY 03/13/14 01/05/15 01/04/15 History Glimepiride [Amaryl] 1 mg PO QAM 01/05/15 01/05/15 01/04/15 History Losartan/Hydrochlorothiazide 1 tab PO QDAY 01/05/15 01/05/15 01/04/15 History [Hyzaar 50-12.5 TAB] Simvastatin [Zocor TAB] 10 mg PO QHS 01/05/15 01/05/15 01/04/15 History Pantoprazole [Protonix TAB] 40 mg PO QDAY #30 tablet 01/06/15 Unknown Rx Cyclobenzaprine [Flexeril] 10 mg PO QHS PRN #30 tablet 07/04/18 Unknown Rx Ibuprofen [Motrin] 800 mg PO Q8HR #30 tablet 07/04/18 Unknown Rx Active Medications: Generic Name Dose Route Start Last Admin Trade Name Freq PRN Reason Stop Dose Admin Albuterol 2.5 mg 06/03/19 13:57 Proventil IH Q3HRT PRN Shortness Of Breath Lipase/Protease/Amylase 1 each 06/05/19 09:59 Pancreaze 10,500 Unit FEEDTUBE PRN PRN For Clogged Feeding Tube Dextrose 50 ml 06/03/19 13:57 D50w (25gm) Syringe IV Q30MIN PRN Hypoglycemia Protocol Famotidine 20 mg 06/06/19 10:00 06/11/19 09:41 Pepcid PO 20 mg BID JOSE ROBERTO Administration Fentanyl 25 mcg 06/09/19 11:30 Sublimaze IV Q4H PRN AGITATION/ANXIETY Heparin Sodium (Porcine) 5,000 unit 06/03/19 14:15 06/11/19 09:40 Heparin SUB-Q 5,000 unit Q12HR JOSE ROBERTO Administration Hydralazine HCl 10 mg 06/07/19 08:42 06/08/19 14:05 Apresoline IV 10 mg Q4HR PRN Administration Hypertension Hydrochlorothiazide 12.5 mg 06/07/19 10:00 06/11/19 09:40 Hctz PO 12.5 mg QDAY JOSE ROBERTO Administration Hydrophilic Ointment 1 applic 06/03/19 11:02 Vaseline Lip Therapy TP Q2HR PRN Dry Lips Insulin Glargine 50 units 06/09/19 22:00 06/11/19 09:39 Lantus SUB-Q 50 units BID JOSE ROBERTO Administration Insulin Human Regular 0 units 06/05/19 09:00 06/11/19 11:55 Humulin R SUB-Q 4 units Q6HR JOSE ROBERTO Administration Protocol Insulin Human Regular 10 units 06/09/19 12:00 06/11/19 11:55 Humulin R SUB-Q 10 units Q6HR JOSE ROBERTO Administration Losartan Potassium 50 mg 06/07/19 10:00 06/11/19 09:40 Cozaar PO 50 mg QDAY JOSE ROBERTO Administration Multi-Ingred Cream/Lotion/Oil/Oint 1 applic 06/03/19 11:02 Artificial Tears Ophth Oint OU Q4HR PRN Dry Eye(s) Quetiapine Fumarate 50 mg 06/10/19 22:00 06/10/19 21:37 Seroquel PO 50 mg QHS JOSE ROBERTO Administration Senna 8.6 mg 06/03/19 22:00 06/11/19 09:40 Senokot PO 8.6 mg BID JOSE ROBERTO Administration Simple Syrup 15 ml 06/05/19 09:59 Simple Syrup FEEDTUBE PRN PRN Hypoglycemia Simple Syrup 30 ml 06/05/19 09:59 Simple Syrup FEEDTUBE PRN PRN Hypoglycemia Sodium Bicarbonate 325 mg 06/05/19 09:59 Sodium Bicarbonate FEEDTUBE PRN PRN For Clogged Feeding Tube Sodium Chloride 10 ml 06/03/19 22:00 06/11/19 09:39 Sodium Chloride Flush Syringe 10 Ml IV 10 ml BID JOSE ROBERTO Administration Sodium Chloride 10 ml 06/03/19 13:57 Sodium Chloride Flush Syringe 10 Ml IV PRN PRN LINE FLUSH
--- NOTE | 2019-06-11 17:58 | Progress Note ---
Assessment and Plan Cultures: Blood culture 06/03/2019 nMicrococcus 1 of 4 Urine culture 06/03/2019 no growth today Assessment: 48 years old female with history of diabetes, hypertension admitted on 06/03/2019 due to acute altered mental status and shortness of breath,t recently returned back from [place] where she went to celebrate her mother's birthday: #Severe sepsis MODS: fever resolved, leukocytosis down; elevated lactate and SHARITA; likely due to bilateral pneumonia +/- DKA, procal up-->down #Bilateral pneumonia: high suspicion for severe COVID pneumonia +/- bacterial pneumonia. Transmission likely from community recent travel to [place]. COVID test pending. Ferritin at 1,037-->1,649-->1,319. LDH 673-->449. CRP 14-->9. Ddimer 434-->1319. Markers down. S/p plaquenil #Acute hypoxemic respiratory failure/ARDS: intubated FiO2 40%/p6 pO2 70 #Acute encephalopathy: Likely due to #1 and high sodium #SHARITA: Renally adjust antibiotics, resolved. #Diabetes with DKA #Hypernatremia per IMS, better #Micrococcus in blood culture: 1 of 4 likely a contaminant Recommendations: to be extubated soon S/p plaquenil 5 days S/p cefepime, metronidazole 7 days Monitor off antibiotics Continue COVID isolation precautions per [facility] protocol Will follow Kerrie Garcia MD Infectious Diseases Adjutant General [facility] ([facility]) M [phone] O [phone] Subjective Date of service: 06/11/19 Principal diagnosis: Ac hypoxemic resp failure; Bob. PNA; PUI CVOVID-19; DKA; Severe sepsis Interval history: Remains on intubated, on CPAP tolerating, tmax 100, no pressors PUI?: Yes COVID19: Positive Objective - Exam Narrative Exam: Exam performed in conjunction with nursings staff due to lack of PPE General appearance: sedated intubated Eyes: limited due to lack of PPE HENT: Atraumatic; oropharynx limited due to lack of PPE Lungs: Diminished bilateral per RT CV: RRR Abdomen: limited due to lack of PPE Extremities: limited due to lack of PPE Skin: No rash. Psych: sedated Neuro: sedated - Constitutional Vitals: Vital Signs Temp Pulse Resp BP Pulse Ox 97.8 F 100 H 36 H 160/93 96 06/11/19 15:20 06/11/19 17:30 06/11/19 17:30 06/11/19 17:30 06/11/19 17:30 Temperature -Last 24 Hours Temperature 97.8 F Temperature 98.0 F Temperature 97.9 F Temperature 100.0 F Temperature 97.5 F Temperature 99.3 F Temperature 98.6 F Temperature 98.6 F - Labs CBC & Chem 7: 06/11/19 04:31 06/11/19 04:31 Labs: Abnormal lab results 06/10/19 06/10/19 06/11/19 Range/Units 18:08 23:53 04:31 WBC (4.5-11.0) K/mm3 MCH (28-32) pg D-Dimer 1206.09 H (0-234) ng/mlDDU Sodium (137-145) mmol/L Potassium (3.6-5.0) mmol/L Chloride (98-107) mmol/L Creatinine (0.7-1.2) mg/dL Glucose (65-100) mg/dL POC Glucose 172 H 186 H (70-105) Ferritin (13.0-400.0) ng/mL Lactate Dehydrogenase (91-180) units/L C-Reactive Protein (0.00-1.30) mg/dL 06/11/19 06/11/19 06/11/19 Range/Units 04:31 04:31 04:31 WBC 17.0 H (4.5-11.0) K/mm3 MCH 27 L (28-32) pg D-Dimer (0-234) ng/mlDDU Sodium 146 H (137-145) mmol/L Potassium 3.3 L (3.6-5.0) mmol/L Chloride 109.4 H (98-107) mmol/L Creatinine 0.5 L (0.7-1.2) mg/dL Glucose 186 H (65-100) mg/dL POC Glucose (70-105) Ferritin 905.9 H (13.0-400.0) ng/mL Lactate Dehydrogenase 417 H (91-180) units/L C-Reactive Protein 3.30 H (0.00-1.30) mg/dL 06/11/19 06/11/19 Range/Units 05:35 11:41 WBC (4.5-11.0) K/mm3 MCH (28-32) pg D-Dimer (0-234) ng/mlDDU Sodium (137-145) mmol/L Potassium (3.6-5.0) mmol/L Chloride (98-107) mmol/L Creatinine (0.7-1.2) mg/dL Glucose (65-100) mg/dL POC Glucose 151 H 209 H (70-105) Ferritin (13.0-400.0) ng/mL Lactate Dehydrogenase (91-180) units/L C-Reactive Protein (0.00-1.30) mg/dL
[2019-06-11] MEDS: hydrALAZINE 20 MG/1 ML INJ IV PRN (18:26)
--- NOTE | 2019-06-11 19:11 | Progress Note ---
Assessment and Plan Assessment and plan: Mrs. Tomas is a 48-year-old female with a history of hypertension, type 2 diabetes mellitus events with altered mental status. She arrived per EMS. Last known time normal 10 PM on night prior to admission. Patient is nonverbal. History obtained from paramedics and electronic medical record. Patient had been ill with fever cough for the past several days. She recently returned back from [place]. EMS discovered patient to be altered with work of breathing. Patient is nonverbal. She was not moving her right side. She is hypoxic at 77% room air. Blood pressure was 140/97. Blood sugar was elevated fingerstick. Hx obtained from [facility] realized that patient was not speaking 4 AM. Found her later breathing really heavy. Unresponsive. When she came back from [place] last Saturday. She had high fever. Her doctor ordered test for COVID-19. Dr. Rausch her PCP informed patient that she tested negative. She went to [place] to celebrate her mother's birthday. On admission she was noted to be in DKA and started on DKA protocol. She was also intubated and on full mechanical ventilatory support. Diagnostic work-up so far EKG shows sinus tachycardia with MAT CT head no acute intracranial process CT cervical spine patchy groundglass consolidative airspace disease right mid to lower lung Mrs. Tomas presents with altered mental status hypoxia. She required mechanical ventilation for oxygenation and airway control. Initially was not moving her right side. With oxygen supplementation she began to move both of her arms. She continued to be nonverbal. She did not follow commands prior to intubation. With CT chest findings and history of fever I strongly suspect COVID 19. Although she previously tested negative there is significant support of false negative test so we will retest. survey form was filled out in the ED by the ED physician through the [facility] department of health as a person under investigation for COVID 19. Patient returned 1 week ago from [place] after celebrating her mother's birthday. * COVID 19 test results came back positive has been advised to forego quarantine himself. COVID 19 Induced Pneumonia Acute hypoxic respiratory failure mild on mechanical ventilation Hypernatremia-remains elevated will increase free water. Hypertension Acute metabolic encephalopathy Right upper extremity weakness now resolved Pneumonia Hypokalemia Leukocytosis Sepsis secondary to pneumonia-with hypothermia Severe metabolic acidosis DKA-resolved Diabetes mellitus with uncontrolled blood sugar Plan 06/04: Remains on full mechanical support. Patient with respiratory alkalosis noted. Adjustment made to the ventilator to decrease the rate. Will replace potassium as hypokalemia still persist. Hypernatremia gradually improving will adjust free water. Patient's anion gap is finally closed will transition to sliding scale coverage with Lantus. Anticipate weaning trial today if patient is amendable to it. Oxygen at requirements per vent settings appears to be improving 06/05: Leukocytosis improving although patient still hypoxic on the ventilator. Awaiting COVID 19 testing results. In addition continue antibiotics for broad- spectrum coverage. Will adjust insulin for better blood sugar control. 06/06: We will increase free water to 300 cc every 4 hours. We will also obtain consultation from furnace puncher. Otherwise continue current therapy. Also noted to have diastolic hypertension will adjust blood pressure medications. Initiated home meds. 06/07: Sodium gradually improving, will adjust free water to 350 while awaiting todays lab and furnace puncher. Patient still with non purposeful movement. Will discuss with ID about possible trial drug Ivermectin. Adjust basal insulin to 40 units BID 06/08: ID and pulmonary considering trial of the new medication ivermectin as patient's inflammatory markers went back up. Sodium mildly elevated. In addition to blood sugar. Discontinued D5 water which could be leading to elevated blood sugar. Will adjust free water to 400 every 4 hours. Nephrology following 06/09: Continue supportive care, Continue Management per ID and Critical care team. 06/10 weaning in progress, on D5W for correcting the hypernatremia. Potassium supplemented Continue intensive care monitoring. Lead Application Architect and infectious disease consult input noted EKG reviewed no evidence of atrial fibrillation will repeat. Replace potassium DKA protocol with insulin-will be discontinued f/u COVID test - pending Continue COVID isolation precautions per [facility] protocol S/P Plaquenil and azithromycin X 5 DAYS Obtain serial Ferritin, LDH, D-Dimer, CRP every 48h [facility] antibiotic coverage, obtain blood cultures and urine cultures and sputum cultures. Wean from vent as tolerated defer to glueline worker We will monitor EKG for any visualization of the atrial fibrillation. If persist will obtain cardiology consult. DVT and GI prophylaxis The high probability of a clinically significant, sudden or life threatening deterioration of the [pulmonary, neuro,] system(s) required my full and direct attention, intervention and personal management. The aggregate critical care time was [35] minutes. This time is in addition to time spent performing reported procedures but includes the following: [x] Data Review and interpretation [x] Patient assessment and monitoring of vital signs [x] Documentation [x] Medication orders and management Subjective Date of service: 06/11/19 Principal diagnosis: Ac hypoxemic resp failure; Bob. PNA; PUI CVOVID-19; DKA; Severe sepsis Interval history: On ventilator, weaning in progress Sodium is 146 and potassium 3.3 PUI?: Yes COVID19: Positive Objective - Constitutional Vitals: Vital Signs - 12hr 06/11/19 06/11/19 06/11/19 07:16 07:30 07:46 Temperature Pulse Rate 95 H 90 89 Pulse Rate [ Right Dorsalis Pedis] Respiratory 12 28 H 22 Rate Blood Pressure 115/70 132/78 132/78 O2 Sat by Pulse 96 96 96 Oximetry 06/11/19 06/11/19 06/11/19 07:48 08:00 08:16 Temperature 97.9 F Pulse Rate 87 89 89 Pulse Rate [ 84 Right Dorsalis Pedis] Respiratory 29 H 25 H 30 H Rate Blood Pressure 108/67 130/80 130/80 O2 Sat by Pulse 96 96 96 Oximetry 06/11/19 06/11/19 06/11/19 08:30 08:46 09:00 Temperature Pulse Rate 87 89 90 Pulse Rate [ Right Dorsalis Pedis] Respiratory 31 H 25 H 27 H Rate Blood Pressure 136/81 136/81 120/76 O2 Sat by Pulse 96 96 95 Oximetry 06/11/19 06/11/19 06/11/19 09:16 09:30 09:40 Temperature Pulse Rate 86 89 91 H Pulse Rate [ Right Dorsalis Pedis] Respiratory 29 H 29 H Rate Blood Pressure 120/76 120/76 146/91 O2 Sat by Pulse 95 95 Oximetry 06/11/19 06/11/19 06/11/19 09:46 10:00 10:16 Temperature Pulse Rate 100 H 89 86 Pulse Rate [ Right Dorsalis Pedis] Respiratory 29 H 30 H 31 H Rate Blood Pressure 146/91 147/87 147/87 O2 Sat by Pulse 96 95 94 Oximetry 06/11/19 06/11/19 06/11/19 10:30 10:46 11:00 Temperature Pulse Rate 86 88 84 Pulse Rate [ Right Dorsalis Pedis] Respiratory 25 H 28 H 28 H Rate Blood Pressure 118/72 147/87 147/87 O2 Sat by Pulse 96 96 95 Oximetry 06/11/19 06/11/19 06/11/19 11:07 11:16 11:30 Temperature Pulse Rate 88 89 97 H Pulse Rate [ Right Dorsalis Pedis] Respiratory 28 H 28 H 23 Rate Blood Pressure 147/87 103/64 129/79 O2 Sat by Pulse 96 96 96 Oximetry 06/11/19 06/11/19 06/11/19 11:46 12:00 12:16 Temperature 98.0 F Pulse Rate 87 90 88 Pulse Rate [ Right Dorsalis Pedis] Respiratory 29 H 21 30 H Rate Blood Pressure 129/79 134/96 134/96 O2 Sat by Pulse 95 96 94 Oximetry 06/11/19 06/11/19 06/11/19 12:30 12:46 13:00 Temperature Pulse Rate 91 H 89 83 Pulse Rate [ Right Dorsalis Pedis] Respiratory 29 H 31 H 33 H Rate Blood Pressure 134/96 145/89 123/75 O2 Sat by Pulse 94 94 91 Oximetry 06/11/19 06/11/19 06/11/19 13:16 13:30 13:46 Temperature Pulse Rate 87 86 91 H Pulse Rate [ Right Dorsalis Pedis] Respiratory 30 H 32 H 24 Rate Blood Pressure 123/75 143/86 143/86 O2 Sat by Pulse 92 94 96 Oximetry 06/11/19 06/11/19 06/11/19 14:00 14:16 14:30 Temperature Pulse Rate 90 86 86 Pulse Rate [ Right Dorsalis Pedis] Respiratory 28 H 27 H 27 H Rate Blood Pressure 152/91 152/91 152/89 O2 Sat by Pulse 96 96 96 Oximetry 06/11/19 06/11/19 06/11/19 14:46 15:00 15:16 Temperature Pulse Rate 86 86 92 H Pulse Rate [ Right Dorsalis Pedis] Respiratory 26 H 29 H 29 H Rate Blood Pressure 152/89 144/87 144/87 O2 Sat by Pulse 96 96 96 Oximetry 06/11/19 06/11/19 06/11/19 15:20 15:23 15:30 Temperature 97.8 F Pulse Rate 86 88 Pulse Rate [ Right Dorsalis Pedis] Respiratory 27 H 31 H Rate Blood Pressure 152/91 156/87 O2 Sat by Pulse 96 95 Oximetry 06/11/19 06/11/19 06/11/19 15:46 16:00 16:16 Temperature Pulse Rate 92 H 93 H 91 H Pulse Rate [ 93 H Right Dorsalis Pedis] Respiratory 29 H 30 H 31 H Rate Blood Pressure 156/87 146/90 146/90 O2 Sat by Pulse 95 95 95 Oximetry 06/11/19 06/11/19 06/11/19 16:30 16:46 17:00 Temperature Pulse Rate 93 H 98 H 95 H Pulse Rate [ Right Dorsalis Pedis] Respiratory 32 H 31 H 32 H Rate Blood Pressure 152/86 152/86 161/81 O2 Sat by Pulse 96 96 96 Oximetry 06/11/19 06/11/19 06/11/19 17:15 17:30 17:45 Temperature Pulse Rate 104 H 100 H 96 H Pulse Rate [ Right Dorsalis Pedis] Respiratory 40 H 36 H 24 Rate Blood Pressure 160/93 160/93 O2 Sat by Pulse 96 96 95 Oximetry 06/11/19 06/11/19 06/11/19 18:00 18:15 18:26 Temperature Pulse Rate 98 H 101 H 100 H Pulse Rate [ Right Dorsalis Pedis] Respiratory 36 H 38 H Rate Blood Pressure 163/91 160/93 163/97 O2 Sat by Pulse 97 97 Oximetry General appearance: Present: mild distress, well-nourished - EENT Eyes: PERRL, EOM intact ENT: hearing intact, clear oral mucosa Ears: bilateral: normal - Neck Neck: supple, normal ROM - Respiratory Respiratory effort: normal Respiratory: bilateral: CTA - Breasts Breasts: normal - Cardiovascular Heart rate: 98 Rhythm: regular Heart Sounds: Present: S1 & S2. Absent: gallop, rub Extremities: no ischemia, pulses intact, No edema, normal color, Full ROM - Gastrointestinal General gastrointestinal: Present: soft, non-tender, non-distended, normal bowel sounds - Genitourinary Female genitourinary: normal - Integumentary Integumentary: clear, warm, dry - Musculoskeletal Musculoskeletal: generalized weakness - Neurologic Neurologic: moves all extremities - Labs CBC & Chem 7: 06/11/19 04:31 06/11/19 04:31 Labs: Abnormal lab results 06/10/19 06/11/1906/10/20 Range/Units 23:53 04:31 04:31 WBC (4.5-11.0) K/mm3 MCH (28-32) pg D-Dimer 1206.09 H (0-234) ng/mlDDU Sodium (137-145) mmol/L Potassium (3.6-5.0) mmol/L Chloride (98-107) mmol/L Creatinine (0.7-1.2) mg/dL Glucose (65-100) mg/dL POC Glucose 186 H (70-105) Ferritin 905.9 H (13.0-400.0) ng/mL Lactate Dehydrogenase (91-180) units/L C-Reactive Protein (0.00-1.30) mg/dL 06/11/19 06/11/19 06/11/19 Range/Units 04:31 04:31 05:35 WBC 17.0 H (4.5-11.0) K/mm3 MCH 27 L (28-32) pg D-Dimer (0-234) ng/mlDDU Sodium 146 H (137-145) mmol/L Potassium 3.3 L (3.6-5.0) mmol/L Chloride 109.4 H (98-107) mmol/L Creatinine 0.5 L (0.7-1.2) mg/dL Glucose 186 H (65-100) mg/dL POC Glucose 151 H (70-105) Ferritin (13.0-400.0) ng/mL Lactate Dehydrogenase 417 H (91-180) units/L C-Reactive Protein 3.30 H (0.00-1.30) mg/dL 06/11/19 06/11/19 Range/Units 11:41 17:27 WBC (4.5-11.0) K/mm3 MCH (28-32) pg D-Dimer (0-234) ng/mlDDU Sodium (137-145) mmol/L Potassium (3.6-5.0) mmol/L Chloride (98-107) mmol/L Creatinine (0.7-1.2) mg/dL Glucose (65-100) mg/dL POC Glucose 209 H 181 H (70-105) Ferritin (13.0-400.0) ng/mL Lactate Dehydrogenase (91-180) units/L C-Reactive Protein (0.00-1.30) mg/dL
[2019-06-11] MEDS: QUEtiapine 25 MG TAB PO SCH (22:02)
[2019-06-12] MEDS: INSULIN REGULAR, HUMAN 100 UNITS/1 ML SUB-Q SCH ×8 (00:04→17:59)
[2019-06-12 04:44] LABS: Hematocrit 38.2 % (30.3-42.9); Hemoglobin 12.1 gm/dl (10.1-14.3); Mean Corpuscular HGB Conc 32 % (30-34); Mean Corpuscular Volume 87 fl (79-97); Platelet Count 193 K/mm3 (140-440); Red Cell Distribution Width 14.4 % (13.2-15.2)
[2019-06-12 05:03] LABS: Alanine Aminotransferase 101 units/L (7-56); Albumin 2.3 g/dL (3.9-5); BUN/Creatinine Ratio 43; Blood Urea Nitrogen 17 mg/dL (7-17); Calcium 9.2 mg/dL (8.4-10.2); Hemolysis Index 12
[2019-06-12 07:13] LABS: Anisocytosis 1+; Band Neutrophils # (Manual) 0.3 K/mm3; Basophils % (Manual) 0 % (0.0-1.8); Eosinophils % (Manual) 0 % (0.0-4.3); Platelet Estimate Consistent w Auto; Total Cells Counted 100
[2019-06-12] MEDS: LOSARTAN 50 MG TAB PO SCH (09:37)
[2019-06-12] MEDS: INSULIN GLARGINE 100 UNITS/ML SUB-Q SCH ×2 (09:37→21:15)
[2019-06-12] MEDS: hydroCHLOROthiazide 12.5 MG CAP PO SCH (09:37)
[2019-06-12] MEDS: SENNOSIDES 8.6 MG TAB PO SCH ×2 (09:37→21:53)
[2019-06-12] MEDS: HEPARIN 5,000 UNIT/1 ML VIAL SUB-Q SCH ×2 (09:37→21:56)
[2019-06-12] MEDS: FAMOTIDINE 20 MG TAB PO SCH ×2 (09:38→21:54)
[2019-06-12 10:45] LABS: ABG Base Excess 7.7 mmol/L (-2.0-3.0); ABG HCO3 32.7 mmol/L (20.0-26.0); ABG Methemoglobin 0.4 % (0.0-1.5); ABG Oxygen Saturation 96.7 % (95.0-99.0); ABG PCO2 47.4 mm Hg; ABG PH 7.456 pH Units (7.350-7.450)
--- NOTE | 2019-06-12 12:59 | Progress Note ---
Assessment and Plan Cultures: Blood culture 06/03/2019 Micrococcus 1 of 4 Urine culture 06/03/2019 no growth today Assessment: 48 years old female with history of diabetes, hypertension admitted on 06/03/2019 due to acute altered mental status and shortness of breath,t recently returned back from [place] where she went to celebrate her mother's birthday: #Severe sepsis MODS: fever resolved, leukocytosis down; elevated lactate and SHARITA; likely due to bilateral pneumonia +/- DKA, procal up-->down #Bilateral pneumonia: high suspicion for severe COVID pneumonia +/- bacterial pneumonia. Transmission likely from community recent travel to [place]. COVID test pending. Ferritin at 1,037-->1,649-->1,319. LDH 673-->449. CRP 14-->9. Ddimer 434-->1319. Markers down. S/p plaquenil #Acute hypoxemic respiratory failure/ARDS: intubated FiO2 40%/p6 pO2 70 #Acute encephalopathy: Likely due to #1 and high sodium #SHARITA: Renally adjust antibiotics, resolved. #Diabetes with DKA #Hypernatremia per IMS, better #Micrococcus in blood culture: 1 of 4 likely a contaminant Recommendations: on CPAP trial monitor leukocytosis S/p plaquenil 5 days S/p cefepime, metronidazole 7 days Monitor off antibiotics Continue COVID isolation precautions per [facility] protocol Will follow Kerrie Garcia MD Infectious Diseases In Service Education Teacher [facility] ([facility]) M [phone] O [phone] Subjective Date of service: 06/12/19 Principal diagnosis: Ac hypoxemic resp failure; Bob. PNA; PUI CVOVID-19; DKA; Severe sepsis Interval history: Remains on intubated, on CPAP tolerating, no fever, no pressors PUI?: Yes COVID19: Positive Objective - Exam Narrative Exam: Exam performed in conjunction with nursings staff due to lack of PPE General appearance: sedated intubated Eyes: limited due to lack of PPE HENT: Atraumatic; oropharynx limited due to lack of PPE Lungs: Diminished bilateral per RT CV: RRR Abdomen: limited due to lack of PPE Extremities: limited due to lack of PPE Skin: No rash. Psych: sedated Neuro: sedated - Constitutional Vitals: Vital Signs Temp Pulse Resp BP Pulse Ox 99.3 F 76 15 104/65 97 06/12/19 08:00 06/12/19 12:45 06/12/19 12:45 06/12/19 12:45 06/12/19 12:45 Temperature -Last 24 Hours Temperature 99.3 F Temperature 97.4 F Temperature 98.5 F Temperature 97.5 F Temperature 98 F Temperature 97.8 F - Labs CBC & Chem 7: 06/12/19 03:58 06/12/19 03:58 Labs: Abnormal lab results 06/11/19 06/11/19 06/12/19 Range/Units 17:27 23:52 03:58 WBC 14.9 H (4.5-11.0) K/mm3 Seg Neuts % (Manual) 72.0 H (40.0-70.0) % Lymphocytes % (Manual) 13.0 L (13.4-35.0) % Monocytes % (Manual) 13.0 H (0.0-7.3) % Seg Neutrophils # Man 10.7 H (1.8-7.7) K/mm3 Monocytes # (Manual) 1.9 H (0.0-0.8) K/mm3 ABG pH (7.350-7.450) pH Units ABG HCO3 (20.0-26.0) mmol/L ABG Base Excess (-2.0-3.0) mmol/L Potassium (3.6-5.0) mmol/L Creatinine (0.7-1.2) mg/dL Glucose (65-100) mg/dL POC Glucose 181 H 223 H (70-105) AST (5-40) units/L ALT (7-56) units/L Total Protein (6.3-8.2) g/dL Albumin (3.9-5) g/dL 06/12/19 06/12/19 06/12/19 Range/Units 03:58 04:44 10:30 WBC (4.5-11.0) K/mm3 Seg Neuts % (Manual) (40.0-70.0) % Lymphocytes % (Manual) (13.4-35.0) % Monocytes % (Manual) (0.0-7.3) % Seg Neutrophils # Man (1.8-7.7) K/mm3 Monocytes # (Manual) (0.0-0.8) K/mm3 ABG pH 7.456 H (7.350-7.450) pH Units ABG HCO3 32.7 H (20.0-26.0) mmol/L ABG Base Excess 7.7 H (-2.0-3.0) mmol/L Potassium 3.4 L (3.6-5.0) mmol/L Creatinine 0.4 L (0.7-1.2) mg/dL Glucose 242 H (65-100) mg/dL POC Glucose 203 H (70-105) AST 103 H (5-40) units/L ALT 101 H (7-56) units/L Total Protein 5.9 L (6.3-8.2) g/dL Albumin 2.3 L (3.9-5) g/dL
--- NOTE | 2019-06-12 14:14 | Progress Note ---
Assessment and Plan Acute hypoxemic respiratory failure on MVS Bilateral pneumonia, possible aspiration. COVID-19 positive Diabetic ketoacidosis. Severe metabolic acidosis. Severe sepsis with acute encephalopathy and hypothermia. Acute toxic metabolic encephalopathy. Leukocytosis. Hemoconcentration. Elevated serum D-dimer. Acute kidney injury. Elevated serum transaminase. - extubate - continue airborne, contact and droplet isolation - continue to wean supplemental oxygen for target O2 sat's > 90% acutely - continue Daily SAT and SBT assessment as tolerated - continue accuchecks resumed with glycemic control per Lantus and SSI (While critically ill target blood glucose of 140-180 mg/dL; avoid hypoglycemia) - sedation prn for target RASS 0 to -1 - VAP bundle addressed (aspiration precautions, HOB>40) - continue lung protective strategies - continue bronchodilators with pulmonary hygiene per RT - wean per pulmonary driven protocols otherwise - continue to avoid nephrotoxins, adjust all medications fro CrCL and GFR - continue to avoid benzodiazepine's; reduce the possibility of delirium - complete antiinfectives per ID rec's - prn analgesia per CPOT score - Maintenance of sleep-wake cycle, avoid delirium - enteral nutritional support at goal rate as tolerated - G.I. & VTE prophylaxis withy heparin and Famotidine - PT/OT/ROM exercises - continue mobility protocols for pressure ulcer prophylaxis - Monitor hemodynamics closely - continue other care per attending / other consultants - Influenza and pneumonia vaccinations addressed per protocol - continue other care per attending / other consultants .... Re-evaluate in am & prn CONDITION: CRITICAL PROGNOSIS: GUARDED CODE STATUS: FULL CODE The high probability of a clinically significant, sudden or life-threatening det erioration of the [respiratory, cardiovascular, endocrine, renal & neurologic] system(s) required my full and direct attention, intervention and personal management. The aggregate critical care time was [33] minutes without overlap. Time includes spent on; [x] Data Review and interpretation [x] Patient assessment and monitoring of vital signs [x] Documentation [x] Medication orders and management Subjective Date of service: 06/12/19 Principal diagnosis: Ac hypoxemic resp failure; Bob. PNA; PUI CVOVID-19; DKA; Severe sepsis Interval history: Patient is seen today for: Ac hypoxemic resp failure; Bob. pneumonia; PUI COVID- 19; DKA; Severe sepsis Seen and examined at bedside; 24hour events reviewed; nursing and respiratory care staff consulted; no adverse overnight events reported to me; resting peacefully in bed; tolerating SBT very well; No N/V/F/C PUI?: Yes COVID19: Positive Objective Vital Signs - 12hr 06/12/19 06/12/19 06/12/19 02:15 02:30 02:45 Temperature Pulse Rate 91 H 94 H 97 H Pulse Rate [ Right Dorsalis Pedis] Respiratory 18 21 20 Rate Blood Pressure 118/77 120/71 120/71 O2 Sat by Pulse 96 96 97 Oximetry 06/12/19 06/12/19 06/12/19 02:51 03:00 03:11 Temperature Pulse Rate 97 H 92 H Pulse Rate [ 96 H 96 H Right Dorsalis Pedis] Respiratory 17 17 17 Rate Blood Pressure 117/73 O2 Sat by Pulse 95 96 95 Oximetry 06/12/19 06/12/19 06/12/19 03:15 03:20 03:30 Temperature 97.4 F L Pulse Rate 92 H 92 H Pulse Rate [ Right Dorsalis Pedis] Respiratory 18 7 L Rate Blood Pressure 117/73 123/72 O2 Sat by Pulse 97 97 Oximetry 06/12/19 06/12/19 06/12/19 03:45 04:00 04:15 Temperature Pulse Rate 87 96 H 87 Pulse Rate [ Right Dorsalis Pedis] Respiratory 16 16 15 Rate Blood Pressure 123/72 115/71 115/71 O2 Sat by Pulse 97 95 97 Oximetry 06/12/19 06/12/19 06/12/19 04:30 04:34 04:45 Temperature Pulse Rate 91 H 86 89 Pulse Rate [ 96 H Right Dorsalis Pedis] Respiratory 15 18 Rate Blood Pressure 111/62 111/62 111/62 O2 Sat by Pulse 98 96 96 Oximetry 06/12/19 06/12/19 06/12/19 05:01 05:15 05:30 Temperature Pulse Rate 94 H 95 H 86 Pulse Rate [ Right Dorsalis Pedis] Respiratory 15 20 21 Rate Blood Pressure 111/62 136/91 137/74 O2 Sat by Pulse 97 97 97 Oximetry 06/12/19 06/12/19 06/12/19 05:45 06:00 06:15 Temperature Pulse Rate 82 83 85 Pulse Rate [ Right Dorsalis Pedis] Respiratory 16 14 17 Rate Blood Pressure 137/74 107/65 107/65 O2 Sat by Pulse 98 97 97 Oximetry 06/12/19 06/12/19 06/12/19 06:30 06:45 07:00 Temperature Pulse Rate 82 83 79 Pulse Rate [ Right Dorsalis Pedis] Respiratory 20 15 19 Rate Blood Pressure 111/67 111/67 127/70 O2 Sat by Pulse 97 99 98 Oximetry 06/12/19 06/12/19 06/12/19 07:15 07:30 07:45 Temperature Pulse Rate 77 78 80 Pulse Rate [ Right Dorsalis Pedis] Respiratory 16 14 17 Rate Blood Pressure 127/70 120/65 120/65 O2 Sat by Pulse 98 98 97 Oximetry 06/12/19 06/12/19 06/12/19 07:47 07:52 08:00 Temperature 99.3 F Pulse Rate 83 88 86 Pulse Rate [ 92 H Right Dorsalis Pedis] Respiratory 23 21 Rate Blood Pressure 120/65 120/65 O2 Sat by Pulse 98 98 97 Oximetry 06/12/19 06/12/19 06/12/19 08:01 08:15 08:30 Temperature Pulse Rate 82 78 82 Pulse Rate [ Right Dorsalis Pedis] Respiratory 21 20 20 Rate Blood Pressure 146/78 146/78 133/73 O2 Sat by Pulse 98 97 97 Oximetry 06/12/19 06/12/19 06/12/19 08:45 09:00 09:15 Temperature Pulse Rate 76 78 75 Pulse Rate [ Right Dorsalis Pedis] Respiratory 18 18 15 Rate Blood Pressure 133/73 115/67 115/67 O2 Sat by Pulse 97 96 97 Oximetry 06/12/19 06/12/19 06/12/19 09:30 09:37 09:45 Temperature Pulse Rate 80 89 102 H Pulse Rate [ Right Dorsalis Pedis] Respiratory 18 14 Rate Blood Pressure 116/76 116/76 116/76 O2 Sat by Pulse 97 98 Oximetry 06/12/19 06/12/19 06/12/19 10:01 10:15 10:31 Temperature Pulse Rate 79 77 75 Pulse Rate [ Right Dorsalis Pedis] Respiratory 17 16 23 Rate Blood Pressure 113/80 113/80 129/81 O2 Sat by Pulse 98 98 98 Oximetry 06/12/19 06/12/19 06/12/19 10:45 11:00 11:15 Temperature Pulse Rate 76 82 77 Pulse Rate [ Right Dorsalis Pedis] Respiratory 21 22 14 Rate Blood Pressure 129/81 123/77 123/77 O2 Sat by Pulse 98 97 96 Oximetry 06/12/19 06/12/19 06/12/19 11:30 11:45 12:00 Temperature Pulse Rate 75 76 76 Pulse Rate [ Right Dorsalis Pedis] Respiratory 14 15 16 Rate Blood Pressure 99/54 99/54 119/68 O2 Sat by Pulse 97 95 99 Oximetry 06/12/19 06/12/19 06/12/19 12:15 12:30 12:45 Temperature Pulse Rate 76 76 76 Pulse Rate [ Right Dorsalis Pedis] Respiratory 17 16 15 Rate Blood Pressure 119/68 104/65 104/65 O2 Sat by Pulse 98 97 97 Oximetry Constitutional: no acute distress, other (Atraumatic, normocephalic, no patient- ventilator dys-synchrony) Eyes: non-icteric ENT: oropharynx moist, other (OGT in place, ETT in palce) Neck: supple, no lymphadenopathy, no JVD Effort: mildly labored Ascultation: Bilateral: diminished breath sounds, rhonchi Percussion: Bilateral: not dull Cardiovascular: irregular rhythm, other (S1,S2, no murmurs) Gastrointestinal: normoactive bowel sounds, soft, non-tender, non-distended Integumentary: normal Extremities: no cyanosis, no edema, pulses normal, no ischemia or petechiae Neurologic: normal mental status, non-focal exam, pupils equal and round, motor strength normal and Psychiatric: mood appropriate, affect normal CBC and BMP: 06/15/19 04:00 06/15/19 04:00 ABG, PT/INR, D-dimer: ABG ABG pH 7.456 pH Units (7.350-7.450) H 06/12/19 10:30 ABG pCO2 47.4 mm Hg 06/12/19 10:30 ABG pO2 83.0 mm Hg (80.0-90.0) 06/12/19 10:30 ABG O2 Saturation 96.7 % (95.0-99.0) 06/12/19 10:30 PT/INR, D-dimer D-Dimer 1206.09 ng/mlDDU (0-234) H 06/11/19 04:31 Abnormal lab findings: Abnormal Labs 06/03/19 06/03/19 06/03/19 10:59 11:15 11:48 WBC RBC Hgb Hct MCH RDW Plt Count Seg Neuts % (Manual) Lymphocytes % (Manual) Monocytes % (Manual) Seg Neutrophils # Man Lymphocytes # (Manual) Monocytes # (Manual) D-Dimer ABG pH ABG pO2 ABG HCO3 ABG O2 Saturation ABG Base Excess ABG Hemoglobin VBG pH Oxyhemoglobin Sodium Potassium Chloride Carbon Dioxide BUN Creatinine Glucose POC Glucose 372 H Hemoglobin A1c Lactic Acid Calcium Phosphorus 11.70 H Magnesium 4.40 H Ferritin AST ALT Alkaline Phosphatase Lactate Dehydrogenase C-Reactive Protein Total Protein Albumin Triglycerides Cholesterol Urine Creatinine 37.4 H Urine Microalbumin 65.1 H Vancomycin Trough Salicylates Acetaminophen 06/03/19 06/03/19 06/03/19 11:51 11:51 11:51 WBC 23.3 H RBC 6.43 H Hgb 17.7 H Hct 59.9 H* MCH RDW 17.1 H Plt Count Seg Neuts % (Manual) 71.0 H Lymphocytes % (Manual) 11.0 L Monocytes % (Manual) 8.0 H Seg Neutrophils # Man 16.5 H Lymphocytes # (Manual) Monocytes # (Manual) 1.9 H D-Dimer ABG pH ABG pO2 ABG HCO3 ABG O2 Saturation ABG Base Excess ABG Hemoglobin VBG pH Oxyhemoglobin Sodium Potassium Chloride Carbon Dioxide 4 L* BUN 41 H Creatinine 1.8 H Glucose 636 H* POC Glucose Hemoglobin A1c Lactic Acid 3.20 H* Calcium 10.9 H Phosphorus Magnesium Ferritin AST 43 H ALT Alkaline Phosphatase 147 H Lactate Dehydrogenase 673 H C-Reactive Protein 14.70 H Total Protein 8.9 H Albumin Triglycerides Cholesterol Urine Creatinine Urine Microalbumin Vancomycin Trough Salicylates Acetaminophen 06/03/19 06/03/19 06/03/19 11:51 11:51 11:51 WBC RBC Hgb Hct MCH RDW Plt Count Seg Neuts % (Manual) Lymphocytes % (Manual) Monocytes % (Manual) Seg Neutrophils # Man Lymphocytes # (Manual) Monocytes # (Manual) D-Dimer ABG pH ABG pO2 ABG HCO3 ABG O2 Saturation ABG Base Excess ABG Hemoglobin VBG pH 6.901 L* Oxyhemoglobin Sodium Potassium Chloride Carbon Dioxide BUN Creatinine Glucose POC Glucose Hemoglobin A1c Lactic Acid Calcium Phosphorus Magnesium Ferritin AST ALT Alkaline Phosphatase Lactate Dehydrogenase C-Reactive Protein Total Protein Albumin Triglycerides Cholesterol Urine Creatinine Urine Microalbumin Vancomycin Trough Salicylates < 0.3 L Acetaminophen < 5.0 L 06/03/19 06/03/19 06/03/19 11:51 11:51 12:34 WBC RBC Hgb Hct MCH RDW Plt Count Seg Neuts % (Manual) Lymphocytes % (Manual) Monocytes % (Manual) Seg Neutrophils # Man Lymphocytes # (Manual) Monocytes # (Manual) D-Dimer 4311.60 H ABG pH ABG pO2 ABG HCO3 ABG O2 Saturation ABG Base Excess ABG Hemoglobin VBG pH Oxyhemoglobin Sodium Potassium Chloride Carbon Dioxide BUN Creatinine Glucose POC Glucose Hemoglobin A1c Lactic Acid 5.20 H* Calcium Phosphorus Magnesium Ferritin 1037.0 H AST ALT Alkaline Phosphatase Lactate Dehydrogenase C-Reactive Protein Total Protein Albumin Triglycerides Cholesterol Urine Creatinine Urine Microalbumin Vancomycin Trough Salicylates Acetaminophen 06/03/19 06/03/19 06/03/19 14:30 16:03 17:00 WBC RBC Hgb Hct MCH RDW Plt Count Seg Neuts % (Manual) Lymphocytes % (Manual) Monocytes % (Manual) Seg Neutrophils # Man Lymphocytes # (Manual) Monocytes # (Manual) D-Dimer ABG pH 6.880 L* ABG pO2 489.9 H ABG HCO3 7.1 L ABG O2 Saturation 99.6 H ABG Base Excess -26.1 L ABG Hemoglobin 16.2 H VBG pH Oxyhemoglobin Sodium Potassium Chloride Carbon Dioxide BUN Creatinine Glucose POC Glucose 335 H Hemoglobin A1c 9.6 H Lactic Acid Calcium Phosphorus Magnesium Ferritin AST ALT Alkaline Phosphatase Lactate Dehydrogenase C-Reactive Protein Total Protein Albumin Triglycerides Cholesterol Urine Creatinine Urine Microalbumin Vancomycin Trough Salicylates Acetaminophen 06/03/19 06/03/19 06/03/19 18:14 18:24 19:00 WBC RBC Hgb Hct MCH RDW Plt Count Seg Neuts % (Manual) Lymphocytes % (Manual) Monocytes % (Manual) Seg Neutrophils # Man Lymphocytes # (Manual) Monocytes # (Manual) D-Dimer ABG pH 7.057 L* ABG pO2 97.2 H ABG HCO3 5.5 L ABG O2 Saturation ABG Base Excess -23.0 L ABG Hemoglobin 18.1 H VBG pH Oxyhemoglobin 94.4 L Sodium Potassium Chloride Carbon Dioxide BUN Creatinine Glucose POC Glucose 285 H Hemoglobin A1c Lactic Acid 3.40 H* Calcium Phosphorus Magnesium Ferritin AST ALT Alkaline Phosphatase Lactate Dehydrogenase C-Reactive Protein Total Protein Albumin Triglycerides Cholesterol Urine Creatinine Urine Microalbumin Vancomycin Trough Salicylates Acetaminophen 06/03/19 06/03/19 06/03/19 19:00 19:00 19:52 WBC RBC Hgb Hct MCH RDW Plt Count Seg Neuts % (Manual) Lymphocytes % (Manual) Monocytes % (Manual) Seg Neutrophils # Man Lymphocytes # (Manual) Monocytes # (Manual) D-Dimer ABG pH ABG pO2 ABG HCO3 ABG O2 Saturation ABG Base Excess ABG Hemoglobin VBG pH Oxyhemoglobin Sodium 151 H Potassium Chloride 120.8 H Carbon Dioxide 6 L* BUN 33 H Creatinine 1.4 H Glucose 339 H POC Glucose 316 H Hemoglobin A1c Lactic Acid Calcium Phosphorus Magnesium Ferritin AST 47 H ALT Alkaline Phosphatase 130 H Lactate Dehydrogenase C-Reactive Protein Total Protein Albumin 3.7 L Triglycerides 424 H Cholesterol 250 H Urine Creatinine Urine Microalbumin Vancomycin Trough Salicylates Acetaminophen 06/03/19 06/03/19 06/03/19 20:21 20:21 21:01 WBC RBC Hgb Hct MCH RDW Plt Count Seg Neuts % (Manual) Lymphocytes % (Manual) Monocytes % (Manual) Seg Neutrophils # Man Lymphocytes # (Manual) Monocytes # (Manual) D-Dimer ABG pH ABG pO2 ABG HCO3 ABG O2 Saturation ABG Base Excess ABG Hemoglobin VBG pH Oxyhemoglobin Sodium 153 H Potassium Chloride 121.8 H Carbon Dioxide 6 L* BUN 34 H Creatinine 1.3 H Glucose 324 H POC Glucose 245 H Hemoglobin A1c Lactic Acid 3.10 H* Calcium Phosphorus Magnesium Ferritin AST ALT Alkaline Phosphatase Lactate Dehydrogenase C-Reactive Protein Total Protein Albumin Triglycerides Cholesterol Urine Creatinine Urine Microalbumin Vancomycin Trough Salicylates Acetaminophen 06/03/19 06/03/19 06/03/19 21:25 21:32 22:42 WBC RBC Hgb Hct MCH RDW Plt Count Seg Neuts % (Manual) Lymphocytes % (Manual) Monocytes % (Manual) Seg Neutrophils # Man Lymphocytes # (Manual) Monocytes # (Manual) D-Dimer ABG pH 7.172 L* ABG pO2 107.2 H ABG HCO3 5.2 L ABG O2 Saturation ABG Base Excess -20.5 L ABG Hemoglobin 17.3 H VBG pH Oxyhemoglobin Sodium 155 H Potassium 2.6 L* D Chloride 130.1 H Carbon Dioxide 5 L* BUN 24 H Creatinine Glucose 212 H POC Glucose 225 H Hemoglobin A1c Lactic Acid Calcium 5.8 L* D Phosphorus Magnesium Ferritin AST ALT Alkaline Phosphatase Lactate Dehydrogenase C-Reactive Protein Total Protein Albumin Triglycerides Cholesterol Urine Creatinine Urine Microalbumin Vancomycin Trough Salicylates Acetaminophen 06/03/19 06/04/19 06/04/19 23:32 00:04 01:25 WBC RBC Hgb Hct MCH RDW Plt Count Seg Neuts % (Manual) Lymphocytes % (Manual) Monocytes % (Manual) Seg Neutrophils # Man Lymphocytes # (Manual) Monocytes # (Manual) D-Dimer ABG pH ABG pO2 ABG HCO3 ABG O2 Saturation ABG Base Excess ABG Hemoglobin VBG pH Oxyhemoglobin Sodium 151 H 151 H Potassium 1.5 L* D Chloride 139.0 H 124.7 H Carbon Dioxide 3 L* 9 L* BUN 31 H Creatinine 0.2 L D Glucose 117 H 241 H POC Glucose 231 H Hemoglobin A1c Lactic Acid Calcium 3.1 L* D Phosphorus Magnesium Ferritin AST ALT Alkaline Phosphatase Lactate Dehydrogenase C-Reactive Protein Total Protein Albumin Triglycerides Cholesterol Urine Creatinine Urine Microalbumin Vancomycin Trough Salicylates Acetaminophen 06/04/19 06/04/19 06/04/19 01:34 02:45 03:21 WBC RBC Hgb Hct MCH RDW Plt Count Seg Neuts % (Manual) Lymphocytes % (Manual) Monocytes % (Manual) Seg Neutrophils # Man Lymphocytes # (Manual) Monocytes # (Manual) D-Dimer ABG pH ABG pO2 ABG HCO3 ABG O2 Saturation ABG Base Excess ABG Hemoglobin VBG pH Oxyhemoglobin Sodium Potassium Chloride Carbon Dioxide BUN Creatinine Glucose POC Glucose 194 H 189 H 183 H Hemoglobin A1c Lactic Acid Calcium Phosphorus Magnesium Ferritin AST ALT Alkaline Phosphatase Lactate Dehydrogenase C-Reactive Protein Total Protein Albumin Triglycerides Cholesterol Urine Creatinine Urine Microalbumin Vancomycin Trough Salicylates Acetaminophen 06/04/19 06/04/19 06/04/19 04:50 05:07 06:27 WBC RBC Hgb Hct MCH RDW Plt Count Seg Neuts % (Manual) Lymphocytes % (Manual) Monocytes % (Manual) Seg Neutrophils # Man Lymphocytes # (Manual) Monocytes # (Manual) D-Dimer ABG pH ABG pO2 76.5 L ABG HCO3 12.9 L ABG O2 Saturation ABG Base Excess -9.0 L ABG Hemoglobin VBG pH Oxyhemoglobin Sodium Potassium Chloride Carbon Dioxide BUN Creatinine Glucose POC Glucose 200 H 164 H Hemoglobin A1c Lactic Acid Calcium Phosphorus Magnesium Ferritin AST ALT Alkaline Phosphatase Lactate Dehydrogenase C-Reactive Protein Total Protein Albumin Triglycerides Cholesterol Urine Creatinine Urine Microalbumin Vancomycin Trough Salicylates Acetaminophen 06/04/19 06/04/19 06/04/19 07:00 07:00 07:00 WBC 13.4 H RBC 5.54 H Hgb 15.3 H Hct 46.1 H D MCH RDW Plt Count Seg Neuts % (Manual) 72.0 H Lymphocytes % (Manual) 6.0 L Monocytes % (Manual) Seg Neutrophils # Man 9.6 H Lymphocytes # (Manual) 0.8 L Monocytes # (Manual) D-Dimer ABG pH ABG pO2 ABG HCO3 ABG O2 Saturation ABG Base Excess ABG Hemoglobin VBG pH Oxyhemoglobin Sodium 158 H 156 H Potassium 2.7 L* D 2.6 L* Chloride 124.3 H 123.5 H Carbon Dioxide 11 L 11 L BUN 25 H 26 H Creatinine Glucose 192 H 190 H POC Glucose Hemoglobin A1c Lactic Acid Calcium Phosphorus Magnesium Ferritin AST 43 H ALT Alkaline Phosphatase Lactate Dehydrogenase 590 H C-Reactive Protein 22.70 H Total Protein Albumin 2.9 L Triglycerides Cholesterol Urine Creatinine Urine Microalbumin Vancomycin Trough Salicylates Acetaminophen 06/04/19 06/04/19 06/04/19 07:00 07:00 07:14 WBC RBC Hgb Hct MCH RDW Plt Count Seg Neuts % (Manual) Lymphocytes % (Manual) Monocytes % (Manual) Seg Neutrophils # Man Lymphocytes # (Manual) Monocytes # (Manual) D-Dimer 2050.33 H ABG pH ABG pO2 ABG HCO3 ABG O2 Saturation ABG Base Excess ABG Hemoglobin VBG pH Oxyhemoglobin Sodium Potassium Chloride Carbon Dioxide BUN Creatinine Glucose POC Glucose 176 H Hemoglobin A1c Lactic Acid Calcium Phosphorus Magnesium Ferritin 941.3 H AST ALT Alkaline Phosphatase Lactate Dehydrogenase C-Reactive Protein Total Protein Albumin Triglycerides Cholesterol Urine Creatinine Urine Microalbumin Vancomycin Trough Salicylates Acetaminophen 06/04/19 06/04/19 06/04/19 09:55 11:38 12:19 WBC RBC Hgb Hct MCH RDW Plt Count Seg Neuts % (Manual) Lymphocytes % (Manual) Monocytes % (Manual) Seg Neutrophils # Man Lymphocytes # (Manual) Monocytes # (Manual) D-Dimer ABG pH ABG pO2 ABG HCO3 ABG O2 Saturation ABG Base Excess ABG Hemoglobin VBG pH Oxyhemoglobin Sodium Potassium Chloride Carbon Dioxide BUN Creatinine Glucose POC Glucose 184 H 145 H 144 H Hemoglobin A1c Lactic Acid Calcium Phosphorus Magnesium Ferritin AST ALT Alkaline Phosphatase Lactate Dehydrogenase C-Reactive Protein Total Protein Albumin Triglycerides Cholesterol Urine Creatinine Urine Microalbumin Vancomycin Trough Salicylates Acetaminophen 06/04/19 06/04/19 06/04/19 13:35 14:29 15:06 WBC RBC Hgb Hct MCH RDW Plt Count Seg Neuts % (Manual) Lymphocytes % (Manual) Monocytes % (Manual) Seg Neutrophils # Man Lymphocytes # (Manual) Monocytes # (Manual) D-Dimer ABG pH ABG pO2 ABG HCO3 ABG O2 Saturation ABG Base Excess ABG Hemoglobin VBG pH Oxyhemoglobin Sodium 157 H Potassium 2.4 L* Chloride 121.4 H Carbon Dioxide 20 L D BUN 21 H Creatinine Glucose 176 H POC Glucose 151 H 142 H Hemoglobin A1c Lactic Acid Calcium Phosphorus Magnesium Ferritin AST ALT Alkaline Phosphatase Lactate Dehydrogenase C-Reactive Protein Total Protein Albumin Triglycerides Cholesterol Urine Creatinine Urine Microalbumin Vancomycin Trough Salicylates Acetaminophen 06/04/19 06/04/19 06/04/19 17:14 17:51 21:45 WBC RBC Hgb Hct MCH RDW Plt Count Seg Neuts % (Manual) Lymphocytes % (Manual) Monocytes % (Manual) Seg Neutrophils # Man Lymphocytes # (Manual) Monocytes # (Manual) D-Dimer ABG pH ABG pO2 ABG HCO3 ABG O2 Saturation ABG Base Excess ABG Hemoglobin VBG pH Oxyhemoglobin Sodium Potassium Chloride Carbon Dioxide BUN Creatinine Glucose POC Glucose 200 H 159 H 143 H Hemoglobin A1c Lactic Acid Calcium Phosphorus Magnesium Ferritin AST ALT Alkaline Phosphatase Lactate Dehydrogenase C-Reactive Protein Total Protein Albumin Triglycerides Cholesterol Urine Creatinine Urine Microalbumin Vancomycin Trough Salicylates Acetaminophen 06/04/19 06/04/19 06/04/19 22:20 22:21 23:27 WBC RBC Hgb Hct MCH RDW Plt Count Seg Neuts % (Manual) Lymphocytes % (Manual) Monocytes % (Manual) Seg Neutrophils # Man Lymphocytes # (Manual) Monocytes # (Manual) D-Dimer ABG pH 7.572 H ABG pO2 58.5 L ABG HCO3 ABG O2 Saturation ABG Base Excess 3.5 H ABG Hemoglobin 20.0 H VBG pH Oxyhemoglobin 94.6 L Sodium Potassium Chloride Carbon Dioxide BUN Creatinine Glucose POC Glucose 154 H 147 H Hemoglobin A1c Lactic Acid Calcium Phosphorus Magnesium Ferritin AST ALT Alkaline Phosphatase Lactate Dehydrogenase C-Reactive Protein Total Protein Albumin Triglycerides Cholesterol Urine Creatinine Urine Microalbumin Vancomycin Trough Salicylates Acetaminophen 06/05/19 06/05/19 06/05/19 00:27 01:16 02:20 WBC RBC Hgb Hct MCH RDW Plt Count Seg Neuts % (Manual) Lymphocytes % (Manual) Monocytes % (Manual) Seg Neutrophils # Man Lymphocytes # (Manual) Monocytes # (Manual) D-Dimer ABG pH ABG pO2 ABG HCO3 ABG O2 Saturation ABG Base Excess ABG Hemoglobin VBG pH Oxyhemoglobin Sodium Potassium Chloride Carbon Dioxide BUN Creatinine Glucose POC Glucose 124 H 126 H 156 H Hemoglobin A1c Lactic Acid Calcium Phosphorus Magnesium Ferritin AST ALT Alkaline Phosphatase Lactate Dehydrogenase C-Reactive Protein Total Protein Albumin Triglycerides Cholesterol Urine Creatinine Urine Microalbumin Vancomycin Trough Salicylates Acetaminophen 06/05/19 06/05/19 06/05/19 03:44 03:59 04:52 WBC RBC Hgb Hct MCH RDW Plt Count Seg Neuts % (Manual) Lymphocytes % (Manual) Monocytes % (Manual) Seg Neutrophils # Man Lymphocytes # (Manual) Monocytes # (Manual) D-Dimer ABG pH ABG pO2 ABG HCO3 ABG O2 Saturation ABG Base Excess ABG Hemoglobin VBG pH Oxyhemoglobin Sodium 155 H Potassium 3.0 L D Chloride 114.7 H Carbon Dioxide BUN Creatinine 0.6 L Glucose 136 H POC Glucose 143 H 141 H Hemoglobin A1c Lactic Acid Calcium Phosphorus Magnesium Ferritin AST ALT Alkaline Phosphatase Lactate Dehydrogenase C-Reactive Protein Total Protein Albumin Triglycerides Cholesterol Urine Creatinine Urine Microalbumin Vancomycin Trough Salicylates Acetaminophen 06/05/19 06/05/19 06/05/19 05:00 05:54 07:01 WBC RBC Hgb Hct MCH RDW Plt Count Seg Neuts % (Manual) Lymphocytes % (Manual) Monocytes % (Manual) Seg Neutrophils # Man Lymphocytes # (Manual) Monocytes # (Manual) D-Dimer ABG pH 7.621 H* ABG pO2 54.3 L ABG HCO3 29.8 H ABG O2 Saturation ABG Base Excess 8.8 H ABG Hemoglobin VBG pH Oxyhemoglobin Sodium Potassium Chloride Carbon Dioxide BUN Creatinine Glucose POC Glucose 155 H 145 H Hemoglobin A1c Lactic Acid Calcium Phosphorus Magnesium Ferritin AST ALT Alkaline Phosphatase Lactate Dehydrogenase C-Reactive Protein Total Protein Albumin Triglycerides Cholesterol Urine Creatinine Urine Microalbumin Vancomycin Trough Salicylates Acetaminophen 06/05/19 06/05/19 06/05/19 12:13 18:23 21:00 WBC RBC Hgb Hct MCH RDW Plt Count Seg Neuts % (Manual) Lymphocytes % (Manual) Monocytes % (Manual) Seg Neutrophils # Man Lymphocytes # (Manual) Monocytes # (Manual) D-Dimer ABG pH ABG pO2 ABG HCO3 ABG O2 Saturation ABG Base Excess ABG Hemoglobin VBG pH Oxyhemoglobin Sodium Potassium Chloride Carbon Dioxide BUN Creatinine Glucose POC Glucose 202 H 257 H Hemoglobin A1c Lactic Acid Calcium Phosphorus Magnesium Ferritin AST ALT Alkaline Phosphatase Lactate Dehydrogenase C-Reactive Protein Total Protein Albumin Triglycerides Cholesterol Urine Creatinine Urine Microalbumin Vancomycin Trough 4.2 L Salicylates Acetaminophen 06/05/19 06/06/19 06/06/19 23:55 04:16 04:37 WBC RBC Hgb Hct MCH RDW Plt Count Seg Neuts % (Manual) Lymphocytes % (Manual) Monocytes % (Manual) Seg Neutrophils # Man Lymphocytes # (Manual) Monocytes # (Manual) D-Dimer 1279.22 H ABG pH 7.600 H ABG pO2 62.4 L ABG HCO3 28.0 H ABG O2 Saturation ABG Base Excess 6.6 H ABG Hemoglobin 10.4 L VBG pH Oxyhemoglobin Sodium Potassium Chloride Carbon Dioxide BUN Creatinine Glucose POC Glucose 267 H Hemoglobin A1c Lactic Acid Calcium Phosphorus Magnesium Ferritin AST ALT Alkaline Phosphatase Lactate Dehydrogenase C-Reactive Protein Total Protein Albumin Triglycerides Cholesterol Urine Creatinine Urine Microalbumin Vancomycin Trough Salicylates Acetaminophen 06/06/19 06/06/19 06/06/19 04:37 04:37 04:37 WBC 12.2 H RBC 5.10 H Hgb Hct MCH 27 L RDW Plt Count Seg Neuts % (Manual) Lymphocytes % (Manual) Monocytes % (Manual) Seg Neutrophils # Man Lymphocytes # (Manual) Monocytes # (Manual) D-Dimer ABG pH ABG pO2 ABG HCO3 ABG O2 Saturation ABG Base Excess ABG Hemoglobin VBG pH Oxyhemoglobin Sodium 156 H Potassium 3.4 L Chloride 112.9 H Carbon Dioxide BUN 21 H Creatinine 0.6 L Glucose 332 H POC Glucose Hemoglobin A1c Lactic Acid Calcium Phosphorus Magnesium Ferritin 1649.0 H AST ALT Alkaline Phosphatase Lactate Dehydrogenase 578 H C-Reactive Protein 22.10 H Total Protein Albumin Triglycerides Cholesterol Urine Creatinine Urine Microalbumin Vancomycin Trough Salicylates Acetaminophen 06/06/19 06/06/19 06/06/19 05:45 11:55 12:21 WBC RBC Hgb Hct MCH RDW Plt Count Seg Neuts % (Manual) Lymphocytes % (Manual) Monocytes % (Manual) Seg Neutrophils # Man Lymphocytes # (Manual) Monocytes # (Manual) D-Dimer ABG pH 7.511 H ABG pO2 123.0 H ABG HCO3 29.7 H ABG O2 Saturation ABG Base Excess 6.4 H ABG Hemoglobin VBG pH Oxyhemoglobin Sodium Potassium Chloride Carbon Dioxide BUN Creatinine Glucose POC Glucose 303 H 281 H Hemoglobin A1c Lactic Acid Calcium Phosphorus Magnesium Ferritin AST ALT Alkaline Phosphatase Lactate Dehydrogenase C-Reactive Protein Total Protein Albumin Triglycerides Cholesterol Urine Creatinine Urine Microalbumin Vancomycin Trough Salicylates Acetaminophen 06/06/19 06/07/19 06/07/19 17:06 00:25 04:39 WBC RBC Hgb Hct MCH RDW Plt Count Seg Neuts % (Manual) Lymphocytes % (Manual) Monocytes % (Manual) Seg Neutrophils # Man Lymphocytes # (Manual) Monocytes # (Manual) D-Dimer ABG pH 7.507 H ABG pO2 46.4 L ABG HCO3 32.6 H ABG O2 Saturation 90.6 L ABG Base Excess 8.6 H ABG Hemoglobin VBG pH Oxyhemoglobin 89.2 L Sodium Potassium Chloride Carbon Dioxide BUN Creatinine Glucose POC Glucose 251 H 225 H Hemoglobin A1c Lactic Acid Calcium Phosphorus Magnesium Ferritin AST ALT Alkaline Phosphatase Lactate Dehydrogenase C-Reactive Protein Total Protein Albumin Triglycerides Cholesterol Urine Creatinine Urine Microalbumin Vancomycin Trough Salicylates Acetaminophen 06/07/19 06/07/19 06/07/19 04:43 04:43 04:43 WBC 13.6 H RBC 5.14 H Hgb Hct 43.4 H MCH 27 L RDW Plt Count Seg Neuts % (Manual) Lymphocytes % (Manual) Monocytes % (Manual) Seg Neutrophils # Man Lymphocytes # (Manual) Monocytes # (Manual) D-Dimer ABG pH ABG pO2 ABG HCO3 ABG O2 Saturation ABG Base Excess ABG Hemoglobin VBG pH Oxyhemoglobin Sodium 166 H* D Potassium 3.0 L Chloride 122.9 H Carbon Dioxide BUN 27 H Creatinine 0.5 L Glucose 265 H POC Glucose Hemoglobin A1c Lactic Acid Calcium Phosphorus Magnesium Ferritin AST ALT Alkaline Phosphatase Lactate Dehydrogenase C-Reactive Protein Total Protein Albumin Triglycerides 373 H Cholesterol Urine Creatinine Urine Microalbumin Vancomycin Trough Salicylates Acetaminophen 06/07/19 06/07/19 06/07/19 10:12 11:39 15:31 WBC RBC Hgb Hct MCH RDW Plt Count Seg Neuts % (Manual) Lymphocytes % (Manual) Monocytes % (Manual) Seg Neutrophils # Man Lymphocytes # (Manual) Monocytes # (Manual) D-Dimer ABG pH ABG pO2 ABG HCO3 ABG O2 Saturation ABG Base Excess ABG Hemoglobin VBG pH Oxyhemoglobin Sodium 163 H* 161 H* Potassium 3.1 L Chloride 117.7 H Carbon Dioxide BUN 22 H Creatinine 0.5 L Glucose 274 H POC Glucose 218 H Hemoglobin A1c Lactic Acid Calcium Phosphorus Magnesium Ferritin AST ALT Alkaline Phosphatase Lactate Dehydrogenase C-Reactive Protein Total Protein Albumin Triglycerides Cholesterol Urine Creatinine Urine Microalbumin Vancomycin Trough Salicylates Acetaminophen 06/07/19 06/08/19 06/08/19 17:16 00:04 03:45 WBC RBC Hgb Hct MCH RDW Plt Count Seg Neuts % (Manual) Lymphocytes % (Manual) Monocytes % (Manual) Seg Neutrophils # Man Lymphocytes # (Manual) Monocytes # (Manual) D-Dimer ABG pH 7.504 H ABG pO2 54.2 L ABG HCO3 32.3 H ABG O2 Saturation 93.7 L ABG Base Excess 8.4 H ABG Hemoglobin VBG pH Oxyhemoglobin 92.2 L Sodium Potassium Chloride Carbon Dioxide BUN Creatinine Glucose POC Glucose 284 H 283 H Hemoglobin A1c Lactic Acid Calcium Phosphorus Magnesium Ferritin AST ALT Alkaline Phosphatase Lactate Dehydrogenase C-Reactive Protein Total Protein Albumin Triglycerides Cholesterol Urine Creatinine Urine Microalbumin Vancomycin Trough Salicylates Acetaminophen 06/08/19 06/08/19 06/08/19 05:02 09:33 09:33 WBC RBC Hgb Hct MCH RDW Plt Count Seg Neuts % (Manual) Lymphocytes % (Manual) Monocytes % (Manual) Seg Neutrophils # Man Lymphocytes # (Manual) Monocytes # (Manual) D-Dimer 1319.18 H ABG pH ABG pO2 ABG HCO3 ABG O2 Saturation ABG Base Excess ABG Hemoglobin VBG pH Oxyhemoglobin Sodium Potassium Chloride Carbon Dioxide BUN Creatinine Glucose POC Glucose 291 H Hemoglobin A1c Lactic Acid Calcium Phosphorus Magnesium Ferritin 1274.0 H AST ALT Alkaline Phosphatase Lactate Dehydrogenase C-Reactive Protein Total Protein Albumin Triglycerides Cholesterol Urine Creatinine Urine Microalbumin Vancomycin Trough Salicylates Acetaminophen 06/08/19 06/08/19 06/08/19 09:33 09:33 17:46 WBC 16.0 H RBC Hgb Hct MCH 27 L RDW Plt Count Seg Neuts % (Manual) Lymphocytes % (Manual) Monocytes % (Manual) Seg Neutrophils # Man Lymphocytes # (Manual) Monocytes # (Manual) D-Dimer ABG pH ABG pO2 ABG HCO3 ABG O2 Saturation ABG Base Excess ABG Hemoglobin VBG pH Oxyhemoglobin Sodium 157 H Potassium 3.1 L Chloride 116.7 H Carbon Dioxide BUN 24 H Creatinine 0.5 L Glucose 351 H POC Glucose 309 H Hemoglobin A1c Lactic Acid Calcium Phosphorus 2.20 L Magnesium 2.60 H Ferritin AST ALT Alkaline Phosphatase 131 H Lactate Dehydrogenase 449 H C-Reactive Protein 9.70 H Total Protein 6.1 L Albumin 2.1 L Triglycerides Cholesterol Urine Creatinine Urine Microalbumin Vancomycin Trough Salicylates Acetaminophen 06/08/19 06/08/19 06/09/19 21:55 23:46 04:18 WBC RBC Hgb Hct MCH RDW Plt Count Seg Neuts % (Manual) Lymphocytes % (Manual) Monocytes % (Manual) Seg Neutrophils # Man Lymphocytes # (Manual) Monocytes # (Manual) D-Dimer ABG pH 7.480 H ABG pO2 70.9 L ABG HCO3 32.9 H ABG O2 Saturation ABG Base Excess 8.4 H ABG Hemoglobin 10.3 L VBG pH Oxyhemoglobin 94.8 L Sodium 151 H Potassium 3.3 L Chloride 112.7 H Carbon Dioxide 31 H BUN 24 H Creatinine 0.5 L Glucose 321 H POC Glucose 331 H Hemoglobin A1c Lactic Acid Calcium Phosphorus Magnesium Ferritin AST ALT Alkaline Phosphatase Lactate Dehydrogenase C-Reactive Protein Total Protein Albumin Triglycerides Cholesterol Urine Creatinine Urine Microalbumin Vancomycin Trough Salicylates Acetaminophen 06/09/19 06/09/19 06/09/19 05:35 07:34 07:34 WBC 14.2 H RBC Hgb Hct MCH 27 L RDW Plt Count Seg Neuts % (Manual) Lymphocytes % (Manual) Monocytes % (Manual) Seg Neutrophils # Man Lymphocytes # (Manual) Monocytes # (Manual) D-Dimer ABG pH ABG pO2 ABG HCO3 ABG O2 Saturation ABG Base Excess ABG Hemoglobin VBG pH Oxyhemoglobin Sodium 153 H Potassium 3.0 L Chloride 113.6 H Carbon Dioxide BUN 26 H Creatinine 0.5 L Glucose 306 H POC Glucose 264 H Hemoglobin A1c Lactic Acid Calcium Phosphorus Magnesium Ferritin AST ALT Alkaline Phosphatase Lactate Dehydrogenase 411 H C-Reactive Protein 6.00 H Total Protein Albumin Triglycerides 304 H Cholesterol Urine Creatinine Urine Microalbumin Vancomycin Trough Salicylates Acetaminophen 06/09/19 06/09/19 06/09/19 07:34 07:34 18:29 WBC RBC Hgb Hct MCH RDW Plt Count Seg Neuts % (Manual) Lymphocytes % (Manual) Monocytes % (Manual) Seg Neutrophils # Man Lymphocytes # (Manual) Monocytes # (Manual) D-Dimer 991.99 H ABG pH ABG pO2 ABG HCO3 ABG O2 Saturation ABG Base Excess ABG Hemoglobin VBG pH Oxyhemoglobin Sodium Potassium Chloride Carbon Dioxide BUN Creatinine Glucose POC Glucose 226 H Hemoglobin A1c Lactic Acid Calcium Phosphorus Magnesium Ferritin 1078.0 H AST ALT Alkaline Phosphatase Lactate Dehydrogenase C-Reactive Protein Total Protein Albumin Triglycerides Cholesterol Urine Creatinine Urine Microalbumin Vancomycin Trough Salicylates Acetaminophen 06/09/19 06/09/19 06/10/19 19:22 23:43 04:05 WBC RBC Hgb Hct MCH RDW Plt Count Seg Neuts % (Manual) Lymphocytes % (Manual) Monocytes % (Manual) Seg Neutrophils # Man Lymphocytes # (Manual) Monocytes # (Manual) D-Dimer ABG pH 7.472 H ABG pO2 63.0 L ABG HCO3 31.3 H ABG O2 Saturation 94.5 L ABG Base Excess 6.9 H ABG Hemoglobin VBG pH Oxyhemoglobin 93.0 L Sodium Potassium Chloride 110.1 H Carbon Dioxide BUN 20 H Creatinine 0.4 L Glucose 237 H POC Glucose 177 H Hemoglobin A1c Lactic Acid Calcium Phosphorus Magnesium Ferritin AST ALT Alkaline Phosphatase Lactate Dehydrogenase C-Reactive Protein Total Protein Albumin Triglycerides Cholesterol Urine Creatinine Urine Microalbumin Vancomycin Trough Salicylates Acetaminophen 06/10/19 06/10/19 06/10/19 06:28 12:30 18:08 WBC RBC Hgb Hct MCH RDW Plt Count Seg Neuts % (Manual) Lymphocytes % (Manual) Monocytes % (Manual) Seg Neutrophils # Man Lymphocytes # (Manual) Monocytes # (Manual) D-Dimer ABG pH ABG pO2 ABG HCO3 ABG O2 Saturation ABG Base Excess ABG Hemoglobin VBG pH Oxyhemoglobin Sodium Potassium Chloride Carbon Dioxide BUN Creatinine Glucose POC Glucose 172 H 166 H 172 H Hemoglobin A1c Lactic Acid Calcium Phosphorus Magnesium Ferritin AST ALT Alkaline Phosphatase Lactate Dehydrogenase C-Reactive Protein Total Protein Albumin Triglycerides Cholesterol Urine Creatinine Urine Microalbumin Vancomycin Trough Salicylates Acetaminophen 06/10/19 06/10/19 06/10/19 23:53 Unknown Unknown WBC 13.7 H RBC Hgb Hct MCH RDW Plt Count 84 L Seg Neuts % (Manual) Lymphocytes % (Manual) Monocytes % (Manual) Seg Neutrophils # Man Lymphocytes # (Manual) Monocytes # (Manual) D-Dimer ABG pH ABG pO2 ABG HCO3 ABG O2 Saturation ABG Base Excess ABG Hemoglobin VBG pH Oxyhemoglobin Sodium 148 H Potassium 3.3 L Chloride 111.5 H Carbon Dioxide BUN 20 H Creatinine 0.4 L Glucose 185 H POC Glucose 186 H Hemoglobin A1c Lactic Acid Calcium Phosphorus Magnesium Ferritin AST ALT Alkaline Phosphatase Lactate Dehydrogenase C-Reactive Protein Total Protein Albumin Triglycerides Cholesterol Urine Creatinine Urine Microalbumin Vancomycin Trough Salicylates Acetaminophen 06/11/19 06/11/19 06/11/19 04:31 04:31 04:31 WBC RBC Hgb Hct MCH RDW Plt Count Seg Neuts % (Manual) Lymphocytes % (Manual) Monocytes % (Manual) Seg Neutrophils # Man Lymphocytes # (Manual) Monocytes # (Manual) D-Dimer 1206.09 H ABG pH ABG pO2 ABG HCO3 ABG O2 Saturation ABG Base Excess ABG Hemoglobin VBG pH Oxyhemoglobin Sodium 146 H Potassium 3.3 L Chloride 109.4 H Carbon Dioxide BUN Creatinine 0.5 L Glucose 186 H POC Glucose Hemoglobin A1c Lactic Acid Calcium Phosphorus Magnesium Ferritin 905.9 H AST ALT Alkaline Phosphatase Lactate Dehydrogenase 417 H C-Reactive Protein 3.30 H Total Protein Albumin Triglycerides Cholesterol Urine Creatinine Urine Microalbumin Vancomycin Trough Salicylates Acetaminophen 06/11/19 06/11/19 06/11/19 04:31 05:35 11:41 WBC 17.0 H RBC Hgb Hct MCH 27 L RDW Plt Count Seg Neuts % (Manual) Lymphocytes % (Manual) Monocytes % (Manual) Seg Neutrophils # Man Lymphocytes # (Manual) Monocytes # (Manual) D-Dimer ABG pH ABG pO2 ABG HCO3 ABG O2 Saturation ABG Base Excess ABG Hemoglobin VBG pH Oxyhemoglobin Sodium Potassium Chloride Carbon Dioxide BUN Creatinine Glucose POC Glucose 151 H 209 H Hemoglobin A1c Lactic Acid Calcium Phosphorus Magnesium Ferritin AST ALT Alkaline Phosphatase Lactate Dehydrogenase C-Reactive Protein Total Protein Albumin Triglycerides Cholesterol Urine Creatinine Urine Microalbumin Vancomycin Trough Salicylates Acetaminophen 06/11/19 06/11/19 06/12/19 17:27 23:52 03:58 WBC 14.9 H RBC Hgb Hct MCH RDW Plt Count Seg Neuts % (Manual) 72.0 H Lymphocytes % (Manual) 13.0 L Monocytes % (Manual) 13.0 H Seg Neutrophils # Man 10.7 H Lymphocytes # (Manual) Monocytes # (Manual) 1.9 H D-Dimer ABG pH ABG pO2 ABG HCO3 ABG O2 Saturation ABG Base Excess ABG Hemoglobin VBG pH Oxyhemoglobin Sodium Potassium Chloride Carbon Dioxide BUN Creatinine Glucose POC Glucose 181 H 223 H Hemoglobin A1c Lactic Acid Calcium Phosphorus Magnesium Ferritin AST ALT Alkaline Phosphatase Lactate Dehydrogenase C-Reactive Protein Total Protein Albumin Triglycerides Cholesterol Urine Creatinine Urine Microalbumin Vancomycin Trough Salicylates Acetaminophen 06/12/19 06/12/19 06/12/19 03:58 04:44 10:30 WBC RBC Hgb Hct MCH RDW Plt Count Seg Neuts % (Manual) Lymphocytes % (Manual) Monocytes % (Manual) Seg Neutrophils # Man Lymphocytes # (Manual) Monocytes # (Manual) D-Dimer ABG pH 7.456 H ABG pO2 ABG HCO3 32.7 H ABG O2 Saturation ABG Base Excess 7.7 H ABG Hemoglobin VBG pH Oxyhemoglobin Sodium Potassium 3.4 L Chloride Carbon Dioxide BUN Creatinine 0.4 L Glucose 242 H POC Glucose 203 H Hemoglobin A1c Lactic Acid Calcium Phosphorus Magnesium Ferritin AST 103 H ALT 101 H Alkaline Phosphatase Lactate Dehydrogenase C-Reactive Protein Total Protein 5.9 L Albumin 2.3 L Triglycerides Cholesterol Urine Creatinine Urine Microalbumin Vancomycin Trough Salicylates Acetaminophen 06/12/19 12:01 WBC RBC Hgb Hct MCH RDW Plt Count Seg Neuts % (Manual) Lymphocytes % (Manual) Monocytes % (Manual) Seg Neutrophils # Man Lymphocytes # (Manual) Monocytes # (Manual) D-Dimer ABG pH ABG pO2 ABG HCO3 ABG O2 Saturation ABG Base Excess ABG Hemoglobin VBG pH Oxyhemoglobin Sodium Potassium Chloride Carbon Dioxide BUN Creatinine Glucose POC Glucose 178 H Hemoglobin A1c Lactic Acid Calcium Phosphorus Magnesium Ferritin AST ALT Alkaline Phosphatase Lactate Dehydrogenase C-Reactive Protein Total Protein Albumin Triglycerides Cholesterol Urine Creatinine Urine Microalbumin Vancomycin Trough Salicylates Acetaminophen Allied health notes reviewed: nursing
--- NOTE | 2019-06-12 14:33 | Progress Note ---
Assessment and Plan - Patient Problems (1) Hypernatremia Current Visit: Yes Status: Acute Plan to address problem: Likely in the setting of severe dehydration that can be commonly seen in DKA. Agree with current free water replacement, which now we are utilizing free water flushed. Serum sodium levels are showing steady improvement. Will continue to monitor. (2) Diabetic ketoacidosis Current Visit: Yes Status: Acute Plan to address problem: Continue current treatment pre protocol. She has been transitioned off insulin regimen and her anion gap has appropriately closed. DM management per primary attending (3) Acute encephalopathy Current Visit: Yes Status: Acute Plan to address problem: Possibly in the setting of hypernatremia and DKA. Will continue to monitor. (4) Acute respiratory failure with hypoxia Current Visit: Yes Status: Acute Plan to address problem: Management per pulmonology. (5) Suspected COVID-19 virus infection Current Visit: Yes Status: Acute Plan to address problem: Per hospitalist note, COVID-19 (+). Follow up further recommendations per ID. (6) Hypertension Current Visit: No Status: Chronic Qualifiers: Hypertension type: essential hypertension Qualified Code(s): I10 - Essential (primary) hypertension Plan to address problem: Will monitor on current regimen. (7) Hypokalemia Current Visit: Yes Status: Acute Plan to address problem: Replete per protocol. Subjective Date of service: 06/12/19 Principal diagnosis: Ac hypoxemic resp failure; Bob. PNA; PUI CVOVID-19; DKA; Severe sepsis Interval history: Remains intubated. Patient is positive COVID-19. Her hypernatremia is improving with appropriate free water replacement. PUI?: Yes COVID19: Positive Objective - Vital Signs Vital signs: Vital Signs - 12hr 06/12/19 06/12/19 06/12/19 02:45 02:51 03:00 Temperature Pulse Rate 97 H 97 H 92 H Pulse Rate [ 96 H Right Dorsalis Pedis] Respiratory 20 17 17 Rate Blood Pressure 120/71 117/73 O2 Sat by Pulse 97 95 96 Oximetry 06/12/19 06/12/19 06/12/19 03:11 03:15 03:20 Temperature 97.4 F L Pulse Rate 92 H Pulse Rate [ 96 H Right Dorsalis Pedis] Respiratory 17 18 Rate Blood Pressure 117/73 O2 Sat by Pulse 95 97 Oximetry 06/12/19 06/12/19 06/12/19 03:30 03:45 04:00 Temperature Pulse Rate 92 H 87 96 H Pulse Rate [ Right Dorsalis Pedis] Respiratory 7 L 16 16 Rate Blood Pressure 123/72 123/72 115/71 O2 Sat by Pulse 97 97 95 Oximetry 06/12/19 06/12/19 06/12/19 04:15 04:30 04:34 Temperature Pulse Rate 87 91 H 86 Pulse Rate [ Right Dorsalis Pedis] Respiratory 15 15 Rate Blood Pressure 115/71 111/62 111/62 O2 Sat by Pulse 97 98 96 Oximetry 06/12/19 06/12/19 06/12/19 04:45 05:01 05:15 Temperature Pulse Rate 89 94 H 95 H Pulse Rate [ 96 H Right Dorsalis Pedis] Respiratory 18 15 20 Rate Blood Pressure 111/62 111/62 136/91 O2 Sat by Pulse 96 97 97 Oximetry 06/12/19 06/12/19 06/12/19 05:30 05:45 06:00 Temperature Pulse Rate 86 82 83 Pulse Rate [ Right Dorsalis Pedis] Respiratory 21 16 14 Rate Blood Pressure 137/74 137/74 107/65 O2 Sat by Pulse 97 98 97 Oximetry 06/12/19 06/12/19 06/12/19 06:15 06:30 06:45 Temperature Pulse Rate 85 82 83 Pulse Rate [ Right Dorsalis Pedis] Respiratory 17 20 15 Rate Blood Pressure 107/65 111/67 111/67 O2 Sat by Pulse 97 97 99 Oximetry 06/12/19 06/12/19 06/12/19 07:00 07:15 07:30 Temperature Pulse Rate 79 77 78 Pulse Rate [ Right Dorsalis Pedis] Respiratory 19 16 14 Rate Blood Pressure 127/70 127/70 120/65 O2 Sat by Pulse 98 98 98 Oximetry 06/12/19 06/12/19 06/12/19 07:45 07:47 07:52 Temperature Pulse Rate 80 83 88 Pulse Rate [ Right Dorsalis Pedis] Respiratory 17 23 Rate Blood Pressure 120/65 120/65 120/65 O2 Sat by Pulse 97 98 98 Oximetry 06/12/19 06/12/19 06/12/19 08:00 08:01 08:15 Temperature 99.3 F Pulse Rate 86 82 78 Pulse Rate [ 92 H Right Dorsalis Pedis] Respiratory 21 21 20 Rate Blood Pressure 146/78 146/78 O2 Sat by Pulse 97 98 97 Oximetry 06/12/19 06/12/19 06/12/19 08:30 08:45 09:00 Temperature Pulse Rate 82 76 78 Pulse Rate [ Right Dorsalis Pedis] Respiratory 20 18 18 Rate Blood Pressure 133/73 133/73 115/67 O2 Sat by Pulse 97 97 96 Oximetry 06/12/19 06/12/19 06/12/19 09:15 09:30 09:37 Temperature Pulse Rate 75 80 89 Pulse Rate [ Right Dorsalis Pedis] Respiratory 15 18 Rate Blood Pressure 115/67 116/76 116/76 O2 Sat by Pulse 97 97 Oximetry 06/12/19 06/12/19 06/12/19 09:45 10:01 10:15 Temperature Pulse Rate 102 H 79 77 Pulse Rate [ Right Dorsalis Pedis] Respiratory 14 17 16 Rate Blood Pressure 116/76 113/80 113/80 O2 Sat by Pulse 98 98 98 Oximetry 06/12/19 06/12/19 06/12/19 10:31 10:45 11:00 Temperature Pulse Rate 75 76 82 Pulse Rate [ Right Dorsalis Pedis] Respiratory 23 21 22 Rate Blood Pressure 129/81 129/81 123/77 O2 Sat by Pulse 98 98 97 Oximetry 06/12/19 06/12/19 06/12/19 11:15 11:30 11:45 Temperature Pulse Rate 77 75 76 Pulse Rate [ Right Dorsalis Pedis] Respiratory 14 14 15 Rate Blood Pressure 123/77 99/54 99/54 O2 Sat by Pulse 96 97 95 Oximetry 06/12/19 06/12/19 06/12/19 12:00 12:15 12:30 Temperature Pulse Rate 76 76 76 Pulse Rate [ Right Dorsalis Pedis] Respiratory 16 17 16 Rate Blood Pressure 119/68 119/68 104/65 O2 Sat by Pulse 99 98 97 Oximetry 06/12/19 12:45 Temperature Pulse Rate 76 Pulse Rate [ Right Dorsalis Pedis] Respiratory 15 Rate Blood Pressure 104/65 O2 Sat by Pulse 97 Oximetry - General Appearance General appearance: intubated EENT: ATNC Neck: no JVD Respiratory: Present: Decreased Breath Sounds Cardiology: regular Gastrointestinal: normal Integumentary: no rash Musculoskeletal: deferred - Lab 06/12/19 03:58 06/12/19 03:58 Most recent lab results ABG pH 7.456 pH Units (7.350-7.450) H 06/12/19 10:30 ABG pCO2 47.4 mm Hg 06/12/19 10:30 ABG pO2 83.0 mm Hg (80.0-90.0) 06/12/19 10:30 ABG HCO3 32.7 mmol/L (20.0-26.0) H 06/12/19 10:30 ABG O2 Saturation 96.7 % (95.0-99.0) 06/12/19 10:30 Calcium 9.2 mg/dL (8.4-10.2) 06/12/19 03:58 Phosphorus 2.20 mg/dL (2.5-4.5) L 06/08/19 09:33 Magnesium 2.60 mg/dL (1.7-2.3) H 06/08/19 09:33 Urine Creatinine 37.4 mg/dL (0.1-20.0) H 06/03/19 11:48 Urine Sodium 130 mmol/L 06/07/19 17:00 - Allied health notes Allied health notes reviewed: nursing Medications & Allergies - Medications Allergies/Adverse Reactions: Allergies No Known Allergies Allergy (Verified 01/05/15 09:29) Home Medications: Home Medications Medication Instructions Recorded Confirmed Last Taken Type Albuterol INH(or & Nicu Only) 2 puff IH QID PRN 03/13/14 01/05/15 01/04/15 History [ProAir HFA Inhaler] Metformin HCl [metFORMIN ER] 500 mg PO QDAY 03/13/14 01/05/15 01/04/15 History Glimepiride [Amaryl] 1 mg PO QAM 01/05/15 01/05/15 01/04/15 History Losartan/Hydrochlorothiazide 1 tab PO QDAY 01/05/15 01/05/15 01/04/15 History [Hyzaar 50-12.5 TAB] Simvastatin [Zocor TAB] 10 mg PO QHS 01/05/15 01/05/15 01/04/15 History Pantoprazole [Protonix TAB] 40 mg PO QDAY #30 tablet 01/06/15 Unknown Rx Cyclobenzaprine [Flexeril] 10 mg PO QHS PRN #30 tablet 05/03/19 Unknown Rx Ibuprofen [Motrin] 800 mg PO Q8HR #30 tablet 07/04/18 Unknown Rx Active Medications: Generic Name Dose Route Start Last Admin Trade Name Freq PRN Reason Stop Dose Admin Albuterol 2.5 mg 06/03/19 13:57 Proventil IH Q3HRT PRN Shortness Of Breath Lipase/Protease/Amylase 1 each 06/05/19 09:59 Pancreaze 10,500 Unit FEEDTUBE PRN PRN For Clogged Feeding Tube Dextrose 50 ml 06/03/19 13:57 D50w (25gm) Syringe IV Q30MIN PRN Hypoglycemia Protocol Famotidine 20 mg 06/06/19 10:00 06/12/19 09:38 Pepcid PO 20 mg BID JOSE ROBERTO Administration Fentanyl 25 mcg 06/09/19 11:30 Sublimaze IV Q4H PRN AGITATION/ANXIETY Heparin Sodium (Porcine) 5,000 unit 06/03/19 14:15 06/12/19 09:37 Heparin SUB-Q 5,000 unit Q12HR JOSE ROBERTO Administration Hydralazine HCl 10 mg 06/07/19 08:42 06/11/19 18:26 Apresoline IV 10 mg Q4HR PRN Administration Hypertension Hydrochlorothiazide 12.5 mg 06/07/19 10:00 06/12/19 09:37 Hctz PO 12.5 mg QDAY JOSE ROBERTO Administration Hydrophilic Ointment 1 applic 06/03/19 11:02 Vaseline Lip Therapy TP Q2HR PRN Dry Lips Insulin Glargine 50 units 06/09/19 22:00 06/12/19 09:37 Lantus SUB-Q 50 units BID JOSE ROBERTO Administration Insulin Human Regular 0 units 06/05/19 09:00 06/12/19 13:26 Humulin R SUB-Q 3 units Q6HR JOSE ROBERTO Administration Protocol Insulin Human Regular 10 units 06/09/19 12:00 06/12/19 13:26 Humulin R SUB-Q 10 units Q6HR JOSE ROBERTO Administration Losartan Potassium 50 mg 06/07/19 10:00 06/12/19 09:37 Cozaar PO 50 mg QDAY JOSE ROBERTO Administration Multi-Ingred Cream/Lotion/Oil/Oint 1 applic 06/03/19 11:02 Artificial Tears Ophth Oint OU Q4HR PRN Dry Eye(s) Quetiapine Fumarate 50 mg 06/10/19 22:00 06/11/19 22:02 Seroquel PO 50 mg QHS JOSE ROBERTO Administration Senna 8.6 mg 06/03/19 22:00 06/12/19 09:37 Senokot PO 8.6 mg BID JOSE ROBERTO Administration Simple Syrup 15 ml 06/05/19 09:59 Simple Syrup FEEDTUBE PRN PRN Hypoglycemia Simple Syrup 30 ml 06/05/19 09:59 Simple Syrup FEEDTUBE PRN PRN Hypoglycemia Sodium Bicarbonate 325 mg 06/05/19 09:59 Sodium Bicarbonate FEEDTUBE PRN PRN For Clogged Feeding Tube Sodium Chloride 10 ml 06/03/19 22:00 06/12/19 09:38 Sodium Chloride Flush Syringe 10 Ml IV 10 ml BID JOSE ROBERTO Administration Sodium Chloride 10 ml 06/03/19 13:57 Sodium Chloride Flush Syringe 10 Ml IV PRN PRN LINE FLUSH
--- NOTE | 2019-06-12 20:44 | Progress Note ---
Assessment and Plan Assessment and plan: Mrs. Tomas is a 48-year-old female with a history of hypertension, type 2 diabetes mellitus events with altered mental status. She arrived per EMS. Last known time normal 10 PM on night prior to admission. Patient is nonverbal. History obtained from paramedics and electronic medical record. Patient had been ill with fever cough for the past several days. She recently returned back from [place]. EMS discovered patient to be altered with work of breathing. Patient is nonverbal. She was not moving her right side. She is hypoxic at 77% room air. Blood pressure was 140/97. Blood sugar was elevated fingerstick. Hx obtained from [facility] realized that patient was not speaking 4 AM. Found her later breathing really heavy. Unresponsive. When she came back from [place] last Saturday. She had high fever. Her doctor ordered test for COVID-19. Dr. Rausch her PCP informed patient that she tested negative. She went to [place] to celebrate her mother's birthday. On admission she was noted to be in DKA and started on DKA protocol. She was also intubated and on full mechanical ventilatory support. Diagnostic work-up so far EKG shows sinus tachycardia with MAT CT head no acute intracranial process CT cervical spine patchy groundglass consolidative airspace disease right mid to lower lung Mrs. Tomas presents with altered mental status hypoxia. She required mechanical ventilation for oxygenation and airway control. Initially was not moving her right side. With oxygen supplementation she began to move both of her arms. She continued to be nonverbal. She did not follow commands prior to intubation. With CT chest findings and history of fever I strongly suspect COVID 19. Although she previously tested negative there is significant support of false negative test so we will retest. survey form was filled out in the ED by the ED physician through the [facility] department of health as a person under investigation for COVID 19. Patient returned 1 week ago from [place] after celebrating her mother's birthday. * COVID 19 test results came back positive has been advised to forego quarantine himself. COVID 19 Induced Pneumonia Acute hypoxic respiratory failure mild on mechanical ventilation Hypernatremia-remains elevated will increase free water. Hypertension Acute metabolic encephalopathy Right upper extremity weakness now resolved Pneumonia Hypokalemia Leukocytosis Sepsis secondary to pneumonia-with hypothermia Severe metabolic acidosis DKA-resolved Diabetes mellitus with uncontrolled blood sugar Plan 06/04: Remains on full mechanical support. Patient with respiratory alkalosis noted. Adjustment made to the ventilator to decrease the rate. Will replace potassium as hypokalemia still persist. Hypernatremia gradually improving will adjust free water. Patient's anion gap is finally closed will transition to sliding scale coverage with Lantus. Anticipate weaning trial today if patient is amendable to it. Oxygen at requirements per vent settings appears to be improving 06/05: Leukocytosis improving although patient still hypoxic on the ventilator. Awaiting COVID 19 testing results. In addition continue antibiotics for broad- spectrum coverage. Will adjust insulin for better blood sugar control. 06/06: We will increase free water to 300 cc every 4 hours. We will also obtain consultation from real estate office supervisor. Otherwise continue current therapy. Also noted to have diastolic hypertension will adjust blood pressure medications. Initiated home meds. 06/07: Sodium gradually improving, will adjust free water to 350 while awaiting todays lab and real estate office supervisor. Patient still with non purposeful movement. Will discuss with ID about possible trial drug Ivermectin. Adjust basal insulin to 40 units BID 06/08: ID and pulmonary considering trial of the new medication ivermectin as patient's inflammatory markers went back up. Sodium mildly elevated. In addition to blood sugar. Discontinued D5 water which could be leading to elevated blood sugar. Will adjust free water to 400 every 4 hours. Nephrology following 06/09: Continue supportive care, Continue Management per ID and Critical care team. 06/10 weaning in progress, on D5W for correcting the hypernatremia. Potassium supplemented 06/12/19 probable extubation tomorrow Continue intensive care monitoring. Site Controller and infectious disease consult input noted EKG reviewed no evidence of atrial fibrillation will repeat. Replace potassium DKA protocol with insulin-will be discontinued f/u COVID test - pending Continue COVID isolation precautions per [facility] protocol S/P Plaquenil and azithromycin X 5 DAYS Obtain serial Ferritin, LDH, D-Dimer, CRP every 48h [facility] antibiotic coverage, obtain blood cultures and urine cultures and sputum cultures. Wean from vent as tolerated defer to sprinkler repair technician We will monitor EKG for any visualization of the atrial fibrillation. If persist will obtain cardiology consult. DVT and GI prophylaxis The high probability of a clinically significant, sudden or life threatening deterioration of the [pulmonary, neuro,] system(s) required my full and direct attention, intervention and personal management. The aggregate critical care time was [35] minutes. This time is in addition to time spent performing reported procedures but includes the following: [x] Data Review and interpretation [x] Patient assessment and monitoring of vital signs [x] Documentation [x] Medication orders and management Subjective Date of service: 06/12/19 Principal diagnosis: Ac hypoxemic resp failure; Bob. PNA; PUI CVOVID-19; DKA; Severe sepsis Interval history: On ventilator, weaning in progress Sodium is 146 and potassium 3.3 PUI?: Yes COVID19: Positive Objective - Exam Narrative Exam: Patient intubated - Constitutional Vitals: Vital Signs - 12hr 06/12/19 06/12/19 06/12/19 08:45 09:00 09:15 Temperature Pulse Rate 76 78 75 Pulse Rate [ Right Dorsalis Pedis] Respiratory 18 18 15 Rate Blood Pressure 133/73 115/67 115/67 O2 Sat by Pulse 97 96 97 Oximetry 06/12/19 06/12/19 06/12/19 09:30 09:37 09:45 Temperature Pulse Rate 80 89 102 H Pulse Rate [ Right Dorsalis Pedis] Respiratory 18 14 Rate Blood Pressure 116/76 116/76 116/76 O2 Sat by Pulse 97 98 Oximetry 06/12/19 06/12/19 06/12/19 10:01 10:15 10:31 Temperature Pulse Rate 79 77 75 Pulse Rate [ Right Dorsalis Pedis] Respiratory 17 16 23 Rate Blood Pressure 113/80 113/80 129/81 O2 Sat by Pulse 98 98 98 Oximetry 06/12/19 06/12/19 06/12/19 10:45 11:00 11:15 Temperature Pulse Rate 76 82 77 Pulse Rate [ Right Dorsalis Pedis] Respiratory 21 22 14 Rate Blood Pressure 129/81 123/77 123/77 O2 Sat by Pulse 98 97 96 Oximetry 06/12/19 06/12/19 06/12/19 11:30 11:45 12:00 Temperature 98.6 F Pulse Rate 75 76 77 Pulse Rate [ 88 Right Dorsalis Pedis] Respiratory 14 15 25 H Rate Blood Pressure 99/54 99/54 119/68 O2 Sat by Pulse 97 95 97 Oximetry 06/12/19 06/12/1920 12:15 12:30 12:45 Temperature Pulse Rate 76 76 76 Pulse Rate [ Right Dorsalis Pedis] Respiratory 17 16 15 Rate Blood Pressure 119/68 104/65 104/65 O2 Sat by Pulse 98 97 97 Oximetry 06/12/19 06/12/19 06/12/19 13:00 13:15 13:30 Temperature Pulse Rate 81 81 82 Pulse Rate [ Right Dorsalis Pedis] Respiratory 15 16 17 Rate Blood Pressure 120/80 120/80 132/79 O2 Sat by Pulse 98 98 98 Oximetry 06/12/19 06/12/19 06/12/19 13:45 14:00 14:15 Temperature Pulse Rate 75 76 75 Pulse Rate [ Right Dorsalis Pedis] Respiratory 18 18 18 Rate Blood Pressure 132/79 131/83 131/83 O2 Sat by Pulse 98 98 98 Oximetry 06/12/19 06/12/19 06/12/19 14:30 14:45 15:00 Temperature Pulse Rate 78 72 78 Pulse Rate [ Right Dorsalis Pedis] Respiratory 16 13 15 Rate Blood Pressure 119/75 131/83 118/73 O2 Sat by Pulse 98 98 99 Oximetry 06/12/19 06/12/19 06/12/19 15:15 15:31 15:45 Temperature Pulse Rate 86 94 H 84 Pulse Rate [ Right Dorsalis Pedis] Respiratory 21 18 24 Rate Blood Pressure 119/75 152/94 118/73 O2 Sat by Pulse 99 99 97 Oximetry 06/12/19 06/12/19 06/12/19 16:00 16:15 16:30 Temperature 99.2 F Pulse Rate 81 79 70 Pulse Rate [ 75 Right Dorsalis Pedis] Respiratory 23 23 24 Rate Blood Pressure 146/78 152/94 157/80 O2 Sat by Pulse 96 96 94 Oximetry 06/12/19 06/12/19 06/12/19 16:45 17:00 17:15 Temperature Pulse Rate 70 80 69 Pulse Rate [ Right Dorsalis Pedis] Respiratory 20 22 25 H Rate Blood Pressure 146/78 163/82 163/82 O2 Sat by Pulse 96 95 97 Oximetry 06/12/19 06/12/19 06/12/19 17:31 17:45 18:00 Temperature Pulse Rate 67 66 65 Pulse Rate [ Right Dorsalis Pedis] Respiratory 24 22 27 H Rate Blood Pressure 146/74 163/82 159/77 O2 Sat by Pulse 97 96 96 Oximetry 06/12/19 06/12/19 06/12/19 18:15 18:31 18:45 Temperature Pulse Rate 67 67 66 Pulse Rate [ Right Dorsalis Pedis] Respiratory 24 22 17 Rate Blood Pressure 159/77 152/75 152/75 O2 Sat by Pulse 97 97 96 Oximetry 06/12/19 06/12/19 06/12/19 19:00 19:15 19:31 Temperature Pulse Rate 73 77 70 Pulse Rate [ Right Dorsalis Pedis] Respiratory 26 H 28 H 26 H Rate Blood Pressure 156/79 156/79 163/85 O2 Sat by Pulse 95 95 96 Oximetry 06/12/19 06/12/19 19:45 20:00 Temperature 97.4 F L Pulse Rate 73 73 Pulse Rate [ Right Dorsalis Pedis] Respiratory 23 28 H Rate Blood Pressure 163/85 153/91 O2 Sat by Pulse 97 96 Oximetry General appearance: Present: mild distress, well-nourished - EENT Eyes: PERRL, EOM intact ENT: hearing intact, clear oral mucosa Ears: bilateral: normal - Neck Neck: supple, normal ROM - Respiratory Respiratory effort: normal Respiratory: bilateral: CTA - Breasts Breasts: normal - Cardiovascular Heart rate: 78 Rhythm: regular Heart Sounds: Present: S1 & S2. Absent: gallop, rub Extremities: pulses intact, No edema, normal color, Full ROM - Gastrointestinal General gastrointestinal: Present: soft, non-tender, non-distended, normal bowel sounds - Genitourinary Female genitourinary: normal - Integumentary Integumentary: clear, warm, dry - Musculoskeletal Musculoskeletal: 1, strength equal bilaterally - Neurologic Neurologic: moves all extremities - Psychiatric Psychiatric: memory intact, appropriate mood/affect, intact judgment & insight - Labs CBC & Chem 7: 06/12/19 03:58 06/12/19 03:58 Labs: Abnormal lab results 06/11/19 06/12/19 06/12/19 Range/Units 23:52 03:58 03:58 WBC 14.9 H (4.5-11.0) K/mm3 Seg Neuts % (Manual) 72.0 H (40.0-70.0) % Lymphocytes % (Manual) 13.0 L (13.4-35.0) % Monocytes % (Manual) 13.0 H (0.0-7.3) % Seg Neutrophils # Man 10.7 H (1.8-7.7) K/mm3 Monocytes # (Manual) 1.9 H (0.0-0.8) K/mm3 ABG pH (7.350-7.450) pH Units ABG HCO3 (20.0-26.0) mmol/L ABG Base Excess (-2.0-3.0) mmol/L Potassium 3.4 L (3.6-5.0) mmol/L Creatinine 0.4 L (0.7-1.2) mg/dL Glucose 242 H (65-100) mg/dL POC Glucose 223 H (70-105) AST 103 H (5-40) units/L ALT 101 H (7-56) units/L Total Protein 5.9 L (6.3-8.2) g/dL Albumin 2.3 L (3.9-5) g/dL 06/12/19 06/12/19 06/12/19 Range/Units 04:44 10:30 12:01 WBC (4.5-11.0) K/mm3 Seg Neuts % (Manual) (40.0-70.0) % Lymphocytes % (Manual) (13.4-35.0) % Monocytes % (Manual) (0.0-7.3) % Seg Neutrophils # Man (1.8-7.7) K/mm3 Monocytes # (Manual) (0.0-0.8) K/mm3 ABG pH 7.456 H (7.350-7.450) pH Units ABG HCO3 32.7 H (20.0-26.0) mmol/L ABG Base Excess 7.7 H (-2.0-3.0) mmol/L Potassium (3.6-5.0) mmol/L Creatinine (0.7-1.2) mg/dL Glucose (65-100) mg/dL POC Glucose 203 H 178 H (70-105) AST (5-40) units/L ALT (7-56) units/L Total Protein (6.3-8.2) g/dL Albumin (3.9-5) g/dL
[2019-06-12] MEDS: QUEtiapine 25 MG TAB PO SCH (21:55)
[2019-06-12] MEDS: hydrALAZINE 20 MG/1 ML INJ IV PRN (22:07)
[2019-06-13] MEDS: INSULIN REGULAR, HUMAN 100 UNITS/1 ML SUB-Q SCH ×7 (01:34→18:11)
[2019-06-13 03:51] LABS: C-Reactive Protein 3.4 mg/dL (0.00-1.30)
[2019-06-13] MEDS: FAMOTIDINE 20 MG TAB PO SCH ×2 (09:20→22:17)
[2019-06-13] MEDS: LOSARTAN 50 MG TAB PO SCH (09:20)
[2019-06-13] MEDS: SENNOSIDES 8.6 MG TAB PO SCH ×2 (09:20→22:17)
[2019-06-13] MEDS: hydroCHLOROthiazide 12.5 MG CAP PO SCH (09:21)
[2019-06-13] MEDS: HEPARIN 5,000 UNIT/1 ML VIAL SUB-Q SCH ×2 (09:21→22:15)
[2019-06-13] MEDS: hydrALAZINE 20 MG/1 ML INJ IV PRN ×2 (09:36→14:36)
[2019-06-13] MEDS: INSULIN GLARGINE 100 UNITS/ML SUB-Q SCH (12:00)
--- NOTE | 2019-06-13 12:45 | Progress Note ---
Assessment and Plan - Patient Problems (1) Hypernatremia Current Visit: Yes Status: Acute Plan to address problem: Likely in the setting of severe dehydration that can be commonly seen in DKA. Agree with free water replacement. Serum sodium levels are showing steady improvement. Will continue to monitor. (2) Diabetic ketoacidosis Current Visit: Yes Status: Acute Plan to address problem: Continue current treatment pre protocol. She has been transitioned off insulin regimen and her anion gap has appropriately closed. DM management per primary attending (3) Acute encephalopathy Current Visit: Yes Status: Acute Plan to address problem: Possibly in the setting of hypernatremia and DKA. Will continue to monitor. (4) Acute respiratory failure with hypoxia Current Visit: Yes Status: Acute Plan to address problem: Management per pulmonology. Now extubated. (5) Suspected COVID-19 virus infection Current Visit: Yes Status: Acute Plan to address problem: Per hospitalist note, COVID-19 (+). Follow up further recommendations per ID. (6) Hypertension Current Visit: No Status: Chronic Qualifiers: Hypertension type: essential hypertension Qualified Code(s): I10 - Essential (primary) hypertension Plan to address problem: Would recommend to switch HCTZ to amlodipine for blood pressure control and also prevent worsening of his hypokalemia. Will start on amlodipine 5 mg daily and titrate as appropriate. (7) Hypokalemia Current Visit: Yes Status: Acute Plan to address problem: Replete per protocol. Subjective Date of service: 06/13/19 Principal diagnosis: Ac hypoxemic resp failure; Bob. PNA; PUI CVOVID-19; DKA; Severe sepsis Interval history: Patient now extubated, stable on O2 via NC. Patient is positive COVID-19. Her hypernatremia is improving with appropriate free water replacement. PUI?: Yes COVID19: Positive Objective - Vital Signs Vital signs: Vital Signs - 12hr 06/13/19 06/13/19 06/13/19 00:45 01:00 01:15 Temperature Pulse Rate 86 82 71 Pulse Rate [ From Monitor] Pulse Rate [ Right Dorsalis Pedis] Respiratory 21 25 H 25 H Rate Blood Pressure 167/93 183/85 183/85 O2 Sat by Pulse 95 95 95 Oximetry 06/13/19 06/13/19 06/13/19 01:30 01:45 02:01 Temperature Pulse Rate 79 88 105 H Pulse Rate [ From Monitor] Pulse Rate [ Right Dorsalis Pedis] Respiratory 23 27 H 21 Rate Blood Pressure 161/87 161/87 148/99 O2 Sat by Pulse 95 94 96 Oximetry 06/13/19 06/13/19 06/13/19 02:15 02:30 02:45 Temperature Pulse Rate 83 89 89 Pulse Rate [ From Monitor] Pulse Rate [ Right Dorsalis Pedis] Respiratory 26 H 26 H 22 Rate Blood Pressure 148/99 145/87 145/87 O2 Sat by Pulse 95 95 95 Oximetry 06/13/19 06/13/19 06/13/19 03:00 03:15 03:30 Temperature Pulse Rate 96 H 93 H 81 Pulse Rate [ From Monitor] Pulse Rate [ Right Dorsalis Pedis] Respiratory 18 20 18 Rate Blood Pressure 172/76 172/76 176/86 O2 Sat by Pulse 94 97 95 Oximetry 06/13/19 06/13/19 06/13/19 03:45 03:52 04:00 Temperature 98.6 F Pulse Rate 90 108 H Pulse Rate [ From Monitor] Pulse Rate [ 90 Right Dorsalis Pedis] Respiratory 27 H 29 H Rate Blood Pressure 176/86 174/91 O2 Sat by Pulse 94 96 Oximetry 06/13/19 06/13/19 06/13/19 04:15 04:30 04:45 Temperature Pulse Rate 71 83 75 Pulse Rate [ From Monitor] Pulse Rate [ Right Dorsalis Pedis] Respiratory 26 H 30 H 21 Rate Blood Pressure 174/91 186/93 186/93 O2 Sat by Pulse 95 96 95 Oximetry 06/13/19 06/13/19 06/13/19 05:00 05:15 05:30 Temperature Pulse Rate 86 76 94 H Pulse Rate [ From Monitor] Pulse Rate [ Right Dorsalis Pedis] Respiratory 26 H 32 H 22 Rate Blood Pressure 157/97 157/97 144/88 O2 Sat by Pulse 95 97 97 Oximetry 06/13/19 06/13/19 06/13/19 05:45 06:00 06:15 Temperature Pulse Rate 100 H 105 H 100 H Pulse Rate [ From Monitor] Pulse Rate [ Right Dorsalis Pedis] Respiratory 25 H 22 27 H Rate Blood Pressure 144/88 167/117 167/117 O2 Sat by Pulse 98 97 94 Oximetry 04/11/20 04/11/20 04/11/20 06:30 06:45 07:00 Temperature Pulse Rate 102 H 99 H 79 Pulse Rate [ From Monitor] Pulse Rate [ Right Dorsalis Pedis] Respiratory 26 H 31 H 26 H Rate Blood Pressure 164/108 164/108 177/91 O2 Sat by Pulse 94 95 97 Oximetry 06/13/19 06/13/19 06/13/19 07:15 07:30 07:45 Temperature Pulse Rate 95 H 101 H 86 Pulse Rate [ From Monitor] Pulse Rate [ Right Dorsalis Pedis] Respiratory 19 25 H 26 H Rate Blood Pressure 177/91 182/99 182/99 O2 Sat by Pulse 97 97 98 Oximetry 06/13/19 06/13/19 06/13/19 08:00 08:15 08:30 Temperature 97.6 F Pulse Rate 77 95 H 95 H Pulse Rate [ 86 From Monitor] Pulse Rate [ Right Dorsalis Pedis] Respiratory 19 22 17 Rate Blood Pressure 188/105 188/105 157/95 O2 Sat by Pulse 99 99 100 Oximetry 06/13/19 06/13/19 06/13/19 08:45 09:00 09:15 Temperature Pulse Rate 96 H 96 H 101 H Pulse Rate [ From Monitor] Pulse Rate [ Right Dorsalis Pedis] Respiratory 21 20 22 Rate Blood Pressure 188/105 157/95 O2 Sat by Pulse 99 99 98 Oximetry 06/13/19 06/13/19 06/13/19 09:20 09:31 09:36 Temperature Pulse Rate 102 H 98 H 90 Pulse Rate [ From Monitor] Pulse Rate [ Right Dorsalis Pedis] Respiratory 18 Rate Blood Pressure 142/75 186/111 194/114 O2 Sat by Pulse 95 Oximetry 06/13/19 06/13/19 06/13/19 09:45 10:01 10:15 Temperature Pulse Rate 100 H 99 H 100 H Pulse Rate [ From Monitor] Pulse Rate [ Right Dorsalis Pedis] Respiratory 26 H 19 29 H Rate Blood Pressure 179/113 179/113 153/91 O2 Sat by Pulse 94 94 93 Oximetry 06/13/19 06/13/19 06/13/19 10:30 10:45 11:00 Temperature Pulse Rate 98 H 94 H 100 H Pulse Rate [ From Monitor] Pulse Rate [ Right Dorsalis Pedis] Respiratory 27 H 34 H 31 H Rate Blood Pressure 162/95 162/95 149/97 O2 Sat by Pulse 92 92 92 Oximetry 06/13/19 06/13/19 06/13/19 11:15 11:30 11:45 Temperature Pulse Rate 97 H 93 H 87 Pulse Rate [ From Monitor] Pulse Rate [ Right Dorsalis Pedis] Respiratory 26 H 31 H 28 H Rate Blood Pressure 149/97 157/95 157/95 O2 Sat by Pulse 92 92 91 Oximetry 06/13/19 06/13/19 12:00 12:01 Temperature 97.6 F Pulse Rate 97 H 108 H Pulse Rate [ 108 H From Monitor] Pulse Rate [ Right Dorsalis Pedis] Respiratory 27 H 27 H Rate Blood Pressure 148/100 O2 Sat by Pulse 91 91 Oximetry - General Appearance General appearance: obese EENT: ATNC Neck: no JVD Respiratory: Present: Clear to Ascultation Cardiology: regular Gastrointestinal: normal Integumentary: no rash Musculoskeletal: deferred - Lab 06/12/19 03:58 06/12/19 03:58 Most recent lab results ABG pH 7.456 pH Units (7.350-7.450) H 06/12/19 10:30 ABG pCO2 47.4 mm Hg 06/12/19 10:30 ABG pO2 83.0 mm Hg (80.0-90.0) 06/12/19 10:30 ABG HCO3 32.7 mmol/L (20.0-26.0) H 06/12/19 10:30 ABG O2 Saturation 96.7 % (95.0-99.0) 06/12/19 10:30 Calcium 9.2 mg/dL (8.4-10.2) 06/12/19 03:58 Phosphorus 2.20 mg/dL (2.5-4.5) L 06/08/19 09:33 Magnesium 2.60 mg/dL (1.7-2.3) H 06/08/19 09:33 Urine Creatinine 37.4 mg/dL (0.1-20.0) H 06/03/19 11:48 Urine Sodium 130 mmol/L 06/07/19 17:00 - Allied health notes Allied health notes reviewed: nursing Medications & Allergies - Medications Allergies/Adverse Reactions: Allergies No Known Allergies Allergy (Verified 01/05/15 09:29) Home Medications: Home Medications Medication Instructions Recorded Confirmed Last Taken Type Albuterol INH(or & Nicu Only) 2 puff IH QID PRN 03/13/14 01/05/15 01/04/15 History [ProAir HFA Inhaler] Metformin HCl [metFORMIN ER] 500 mg PO QDAY 03/13/14 01/05/15 01/04/15 History Glimepiride [Amaryl] 1 mg PO QAM 01/05/15 01/05/15 01/04/15 History Losartan/Hydrochlorothiazide 1 tab PO QDAY 01/05/15 01/05/15 01/04/15 History [Hyzaar 50-12.5 TAB] Simvastatin [Zocor TAB] 10 mg PO QHS 01/05/15 01/05/15 01/04/15 History Pantoprazole [Protonix TAB] 40 mg PO QDAY #30 tablet 01/06/15 Unknown Rx Cyclobenzaprine [Flexeril] 10 mg PO QHS PRN #30 tablet 07/04/18 Unknown Rx Ibuprofen [Motrin] 800 mg PO Q8HR #30 tablet 07/04/18 Unknown Rx Active Medications: Generic Name Dose Route Start Last Admin Trade Name Freq PRN Reason Stop Dose Admin Albuterol 2.5 mg 06/03/19 13:57 Proventil IH Q3HRT PRN Shortness Of Breath Lipase/Protease/Amylase 1 each 06/05/19 09:59 Pancreaze 10,500 Unit FEEDTUBE PRN PRN For Clogged Feeding Tube Dextrose 50 ml 06/03/19 13:57 D50w (25gm) Syringe IV Q30MIN PRN Hypoglycemia Protocol Famotidine 20 mg 06/06/19 10:00 06/13/19 09:20 Pepcid PO 20 mg BID JOSE ROBERTO Administration Fentanyl 25 mcg 06/09/19 11:30 Sublimaze IV Q4H PRN AGITATION/ANXIETY Heparin Sodium (Porcine) 5,000 unit 06/03/19 14:15 06/13/19 09:21 Heparin SUB-Q 5,000 unit Q12HR JOSE ROBERTO Administration Hydralazine HCl 10 mg 06/07/19 08:42 06/13/19 09:36 Apresoline IV 10 mg Q4HR PRN Administration Hypertension Hydrochlorothiazide 12.5 mg 06/07/19 10:00 06/13/19 09:21 Hctz PO 12.5 mg QDAY JOSE ROBERTO Administration Hydrophilic Ointment 1 applic 06/03/19 11:02 Vaseline Lip Therapy TP Q2HR PRN Dry Lips Insulin Human Regular 0 units 06/13/19 12:20 Humulin R SUB-Q Q6HR JOSE ROBERTO Protocol Losartan Potassium 50 mg 06/07/19 10:00 06/13/19 09:20 Cozaar PO 50 mg QDAY JOSE ROBERTO Administration Multi-Ingred Cream/Lotion/Oil/Oint 1 applic 06/03/19 11:02 Artificial Tears Ophth Oint OU Q4HR PRN Dry Eye(s) Quetiapine Fumarate 50 mg 06/10/19 22:00 06/12/19 21:55 Seroquel PO 50 mg QHS JOSE ROBERTO Administration Senna 8.6 mg 06/03/19 22:00 06/13/19 09:20 Senokot PO 8.6 mg BID JOSE ROBERTO Administration Simple Syrup 15 ml 06/05/19 09:59 Simple Syrup FEEDTUBE PRN PRN Hypoglycemia Simple Syrup 30 ml 06/05/19 09:59 Simple Syrup FEEDTUBE PRN PRN Hypoglycemia Sodium Bicarbonate 325 mg 06/05/19 09:59 Sodium Bicarbonate FEEDTUBE PRN PRN For Clogged Feeding Tube Sodium Chloride 10 ml 06/03/19 22:00 06/13/19 09:21 Sodium Chloride Flush Syringe 10 Ml IV 10 ml BID JOSE ROBERTO Administration Sodium Chloride 10 ml 06/03/19 13:57 Sodium Chloride Flush Syringe 10 Ml IV PRN PRN LINE FLUSH
[2019-06-13] MEDS: amLODIPine 5 MG TAB PO SCH (14:14)
--- NOTE | 2019-06-13 14:33 | Progress Note ---
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 112.9 H Carbon Dioxide BUN 21 H Creatinine 0.6 L Glucose 332 H POC Glucose Hemoglobin A1c Lactic Acid Calcium Phosphorus Magnesium Ferritin 1649.0 H AST ALT Alkaline Phosphatase Lactate Dehydrogenase 578 H C-Reactive Protein 22.10 H Total Protein Albumin Triglycerides Cholesterol Urine Creatinine Urine Microalbumin Vancomycin Trough Salicylates Acetaminophen 06/06/19 06/06/19 06/06/19 05:45 11:55 12:21 WBC RBC Hgb Hct MCH RDW Plt Count Seg Neuts % (Manual) Lymphocytes % (Manual) Monocytes % (Manual) Seg Neutrophils # Man Lymphocytes # (Manual) Monocytes # (Manual) D-Dimer ABG pH 7.511 H ABG pO2 123.0 H ABG HCO3 29.7 H ABG O2 Saturation ABG Base Excess 6.4 H ABG Hemoglobin VBG pH Oxyhemoglobin Sodium Potassium Chloride Carbon Dioxide BUN Creatinine Glucose POC Glucose 303 H 281 H Hemoglobin A1c Lactic Acid Calcium Phosphorus Magnesium Ferritin AST ALT Alkaline Phosphatase Lactate Dehydrogenase C-Reactive Protein Total Protein Albumin Triglycerides Cholesterol Urine Creatinine Urine Microalbumin Vancomycin Trough Salicylates Acetaminophen 06/06/19 06/07/19 06/07/19 17:06 00:25 04:39 WBC RBC Hgb Hct MCH RDW Plt Count Seg Neuts % (Manual) Lymphocytes % (Manual) Monocytes % (Manual) Seg Neutrophils # Man Lymphocytes # (Manual) Monocytes # (Manual) D-Dimer ABG pH 7.507 H ABG pO2 46.4 L ABG HCO3 32.6 H ABG O2 Saturation 90.6 L ABG Base Excess 8.6 H ABG Hemoglobin VBG pH Oxyhemoglobin 89.2 L Sodium Potassium Chloride Carbon Dioxide BUN Creatinine Glucose POC Glucose 251 H 225 H Hemoglobin A1c Lactic Acid Calcium Phosphorus Magnesium Ferritin AST ALT Alkaline Phosphatase Lactate Dehydrogenase C-Reactive Protein Total Protein Albumin Triglycerides Cholesterol Urine Creatinine Urine Microalbumin Vancomycin Trough Salicylates Acetaminophen 06/07/19 06/07/19 06/07/19 04:43 04:43 04:43 WBC 13.6 H RBC 5.14 H Hgb Hct 43.4 H MCH 27 L RDW Plt Count Seg Neuts % (Manual) Lymphocytes % (Manual) Monocytes % (Manual) Seg Neutrophils # Man Lymphocytes # (Manual) Monocytes # (Manual) D-Dimer ABG pH ABG pO2 ABG HCO3 ABG O2 Saturation ABG Base Excess ABG Hemoglobin VBG pH Oxyhemoglobin Sodium 166 H* D Potassium 3.0 L Chloride 122.9 H Carbon Dioxide BUN 27 H Creatinine 0.5 L Glucose 265 H POC Glucose Hemoglobin A1c Lactic Acid Calcium Phosphorus Magnesium Ferritin AST ALT Alkaline Phosphatase Lactate Dehydrogenase C-Reactive Protein Total Protein Albumin Triglycerides 373 H Cholesterol Urine Creatinine Urine Microalbumin Vancomycin Trough Salicylates Acetaminophen 0406/07/19 06/07/19 10:12 11:39 15:31 WBC RBC Hgb Hct MCH RDW Plt Count Seg Neuts % (Manual) Lymphocytes % (Manual) Monocytes % (Manual) Seg Neutrophils # Man Lymphocytes # (Manual) Monocytes # (Manual) D-Dimer ABG pH ABG pO2 ABG HCO3 ABG O2 Saturation ABG Base Excess ABG Hemoglobin VBG pH Oxyhemoglobin Sodium 163 H* 161 H* Potassium 3.1 L Chloride 117.7 H Carbon Dioxide BUN 22 H Creatinine 0.5 L Glucose 274 H POC Glucose 218 H Hemoglobin A1c Lactic Acid Calcium Phosphorus Magnesium Ferritin AST ALT Alkaline Phosphatase Lactate Dehydrogenase C-Reactive Protein Total Protein Albumin Triglycerides Cholesterol Urine Creatinine Urine Microalbumin Vancomycin Trough Salicylates Acetaminophen 06/07/19 06/08/19 06/08/19 17:16 00:04 03:45 WBC RBC Hgb Hct MCH RDW Plt Count Seg Neuts % (Manual) Lymphocytes % (Manual) Monocytes % (Manual) Seg Neutrophils # Man Lymphocytes # (Manual) Monocytes # (Manual) D-Dimer ABG pH 7.504 H ABG pO2 54.2 L ABG HCO3 32.3 H ABG O2 Saturation 93.7 L ABG Base Excess 8.4 H ABG Hemoglobin VBG pH Oxyhemoglobin 92.2 L Sodium Potassium Chloride Carbon Dioxide BUN Creatinine Glucose POC Glucose 284 H 283 H Hemoglobin A1c Lactic Acid Calcium Phosphorus Magnesium Ferritin AST ALT Alkaline Phosphatase Lactate Dehydrogenase C-Reactive Protein Total Protein Albumin Triglycerides Cholesterol Urine Creatinine Urine Microalbumin Vancomycin Trough Salicylates Acetaminophen 06/08/19 06/08/19 06/08/19 05:02 09:33 09:33 WBC RBC Hgb Hct MCH RDW Plt Count Seg Neuts % (Manual) Lymphocytes % (Manual) Monocytes % (Manual) Seg Neutrophils # Man Lymphocytes # (Manual) Monocytes # (Manual) D-Dimer 1319.18 H ABG pH ABG pO2 ABG HCO3 ABG O2 Saturation ABG Base Excess ABG Hemoglobin VBG pH Oxyhemoglobin Sodium Potassium Chloride Carbon Dioxide BUN Creatinine Glucose POC Glucose 291 H Hemoglobin A1c Lactic Acid Calcium Phosphorus Magnesium Ferritin 1274.0 H AST ALT Alkaline Phosphatase Lactate Dehydrogenase C-Reactive Protein Total Protein Albumin Triglycerides Cholesterol Urine Creatinine Urine Microalbumin Vancomycin Trough Salicylates Acetaminophen 06/08/19 06/08/19 06/08/19 09:33 09:33 17:46 WBC 16.0 H RBC Hgb Hct MCH 27 L RDW Plt Count Seg Neuts % (Manual) Lymphocytes % (Manual) Monocytes % (Manual) Seg Neutrophils # Man Lymphocytes # (Manual) Monocytes # (Manual) D-Dimer ABG pH ABG pO2 ABG HCO3 ABG O2 Saturation ABG Base Excess ABG Hemoglobin VBG pH Oxyhemoglobin Sodium 157 H Potassium 3.1 L Chloride 116.7 H Carbon Dioxide BUN 24 H Creatinine 0.5 L Glucose 351 H POC Glucose 309 H Hemoglobin A1c Lactic Acid Calcium Phosphorus 2.20 L Magnesium 2.60 H Ferritin AST ALT Alkaline Phosphatase 131 H Lactate Dehydrogenase 449 H C-Reactive Protein 9.70 H Total Protein 6.1 L Albumin 2.1 L Triglycerides Cholesterol Urine Creatinine Urine Microalbumin Vancomycin Trough Salicylates Acetaminophen 06/08/19 06/08/19 06/09/19 21:55 23:46 04:18 WBC RBC Hgb Hct MCH RDW Plt Count Seg Neuts % (Manual) Lymphocytes % (Manual) Monocytes % (Manual) Seg Neutrophils # Man Lymphocytes # (Manual) Monocytes # (Manual) D-Dimer ABG pH 7.480 H ABG pO2 70.9 L ABG HCO3 32.9 H ABG O2 Saturation ABG Base Excess 8.4 H ABG Hemoglobin 10.3 L VBG pH Oxyhemoglobin 94.8 L Sodium 151 H Potassium 3.3 L Chloride 112.7 H Carbon Dioxide 31 H BUN 24 H Creatinine 0.5 L Glucose 321 H POC Glucose 331 H Hemoglobin A1c Lactic Acid Calcium Phosphorus Magnesium Ferritin AST ALT Alkaline Phosphatase Lactate Dehydrogenase C-Reactive Protein Total Protein Albumin Triglycerides Cholesterol Urine Creatinine Urine Microalbumin Vancomycin Trough Salicylates Acetaminophen 06/09/19 06/09/19 06/09/19 05:35 07:34 07:34 WBC 14.2 H RBC Hgb Hct MCH 27 L RDW Plt Count Seg Neuts % (Manual) Lymphocytes % (Manual) Monocytes % (Manual) Seg Neutrophils # Man Lymphocytes # (Manual) Monocytes # (Manual) D-Dimer ABG pH ABG pO2 ABG HCO3 ABG O2 Saturation ABG Base Excess ABG Hemoglobin VBG pH Oxyhemoglobin Sodium 153 H Potassium 3.0 L Chloride 113.6 H Carbon Dioxide BUN 26 H Creatinine 0.5 L Glucose 306 H POC Glucose 264 H Hemoglobin A1c Lactic Acid Calcium Phosphorus Magnesium Ferritin AST ALT Alkaline Phosphatase Lactate Dehydrogenase 411 H C-Reactive Protein 6.00 H Total Protein Albumin Triglycerides 304 H Cholesterol Urine Creatinine Urine Microalbumin Vancomycin Trough Salicylates Acetaminophen 06/09/19 06/09/19 06/09/19 07:34 07:34 18:29 WBC RBC Hgb Hct MCH RDW Plt Count Seg Neuts % (Manual) Lymphocytes % (Manual) Monocytes % (Manual) Seg Neutrophils # Man Lymphocytes # (Manual) Monocytes # (Manual) D-Dimer 991.99 H ABG pH ABG pO2 ABG HCO3 ABG O2 Saturation ABG Base Excess ABG Hemoglobin VBG pH Oxyhemoglobin Sodium Potassium Chloride Carbon Dioxide BUN Creatinine Glucose POC Glucose 226 H Hemoglobin A1c Lactic Acid Calcium Phosphorus Magnesium Ferritin 1078.0 H AST ALT Alkaline Phosphatase Lactate Dehydrogenase C-Reactive Protein Total Protein Albumin Triglycerides Cholesterol Urine Creatinine Urine Microalbumin Vancomycin Trough Salicylates Acetaminophen 06/09/19 06/09/19 06/10/19 19:22 23:43 04:05 WBC RBC Hgb Hct MCH RDW Plt Count Seg Neuts % (Manual) Lymphocytes % (Manual) Monocytes % (Manual) Seg Neutrophils # Man Lymphocytes # (Manual) Monocytes # (Manual) D-Dimer ABG pH 7.472 H ABG pO2 63.0 L ABG HCO3 31.3 H ABG O2 Saturation 94.5 L ABG Base Excess 6.9 H ABG Hemoglobin VBG pH Oxyhemoglobin 93.0 L Sodium Potassium Chloride 110.1 H Carbon Dioxide BUN 20 H Creatinine 0.4 L Glucose 237 H POC Glucose 177 H Hemoglobin A1c Lactic Acid Calcium Phosphorus Magnesium Ferritin AST ALT Alkaline Phosphatase Lactate Dehydrogenase C-Reactive Protein Total Protein Albumin Triglycerides Cholesterol Urine Creatinine Urine Microalbumin Vancomycin Trough Salicylates Acetaminophen 06/10/19 06/10/19 06/10/19 06:28 12:30 18:08 WBC RBC Hgb Hct MCH RDW Plt Count Seg Neuts % (Manual) Lymphocytes % (Manual) Monocytes % (Manual) Seg Neutrophils # Man Lymphocytes # (Manual) Monocytes # (Manual) D-Dimer ABG pH ABG pO2 ABG HCO3 ABG O2 Saturation ABG Base Excess ABG Hemoglobin VBG pH Oxyhemoglobin Sodium Potassium Chloride Carbon Dioxide BUN Creatinine Glucose POC Glucose 172 H 166 H 172 H Hemoglobin A1c Lactic Acid Calcium Phosphorus Magnesium Ferritin AST ALT Alkaline Phosphatase Lactate Dehydrogenase C-Reactive Protein Total Protein Albumin Triglycerides Cholesterol Urine Creatinine Urine Microalbumin Vancomycin Trough Salicylates Acetaminophen 06/10/19 06/10/19 06/10/19 23:53 Unknown Unknown WBC 13.7 H RBC Hgb Hct MCH RDW Plt Count 84 L Seg Neuts % (Manual) Lymphocytes % (Manual) Monocytes % (Manual) Seg Neutrophils # Man Lymphocytes # (Manual) Monocytes # (Manual) D-Dimer ABG pH ABG pO2 ABG HCO3 ABG O2 Saturation ABG Base Excess ABG Hemoglobin VBG pH Oxyhemoglobin Sodium 148 H Potassium 3.3 L Chloride 111.5 H Carbon Dioxide BUN 20 H Creatinine 0.4 L Glucose 185 H POC Glucose 186 H Hemoglobin A1c Lactic Acid Calcium Phosphorus Magnesium Ferritin AST ALT Alkaline Phosphatase Lactate Dehydrogenase C-Reactive Protein Total Protein Albumin Triglycerides Cholesterol Urine Creatinine Urine Microalbumin Vancomycin Trough Salicylates Acetaminophen 06/11/19 06/11/19 06/11/19 04:31 04:31 04:31 WBC RBC Hgb Hct MCH RDW Plt Count Seg Neuts % (Manual) Lymphocytes % (Manual) Monocytes % (Manual) Seg Neutrophils # Man Lymphocytes # (Manual) Monocytes # (Manual) D-Dimer 1206.09 H ABG pH ABG pO2 ABG HCO3 ABG O2 Saturation ABG Base Excess ABG Hemoglobin VBG pH Oxyhemoglobin Sodium 146 H Potassium 3.3 L Chloride 109.4 H Carbon Dioxide BUN Creatinine 0.5 L Glucose 186 H POC Glucose Hemoglobin A1c Lactic Acid Calcium Phosphorus Magnesium Ferritin 905.9 H AST ALT Alkaline Phosphatase Lactate Dehydrogenase 417 H C-Reactive Protein 3.30 H Total Protein Albumin Triglycerides Cholesterol Urine Creatinine Urine Microalbumin Vancomycin Trough Salicylates Acetaminophen 06/11/19 06/11/19 06/11/19 04:31 05:35 11:41 WBC 17.0 H RBC Hgb Hct MCH 27 L RDW Plt Count Seg Neuts % (Manual) Lymphocytes % (Manual) Monocytes % (Manual) Seg Neutrophils # Man Lymphocytes # (Manual) Monocytes # (Manual) D-Dimer ABG pH ABG pO2 ABG HCO3 ABG O2 Saturation ABG Base Excess ABG Hemoglobin VBG pH Oxyhemoglobin Sodium Potassium Chloride Carbon Dioxide BUN Creatinine Glucose POC Glucose 151 H 209 H Hemoglobin A1c Lactic Acid Calcium Phosphorus Magnesium Ferritin AST ALT Alkaline Phosphatase Lactate Dehydrogenase C-Reactive Protein Total Protein Albumin Triglycerides Cholesterol Urine Creatinine Urine Microalbumin Vancomycin Trough Salicylates Acetaminophen 06/11/19 06/11/19 06/12/19 17:27 23:52 03:58 WBC 14.9 H RBC Hgb Hct MCH RDW Plt Count Seg Neuts % (Manual) 72.0 H Lymphocytes % (Manual) 13.0 L Monocytes % (Manual) 13.0 H Seg Neutrophils # Man 10.7 H Lymphocytes # (Manual) Monocytes # (Manual) 1.9 H D-Dimer ABG pH ABG pO2 ABG HCO3 ABG O2 Saturation ABG Base Excess ABG Hemoglobin VBG pH Oxyhemoglobin Sodium Potassium Chloride Carbon Dioxide BUN Creatinine Glucose POC Glucose 181 H 223 H Hemoglobin A1c Lactic Acid Calcium Phosphorus Magnesium Ferritin AST ALT Alkaline Phosphatase Lactate Dehydrogenase C-Reactive Protein Total Protein Albumin Triglycerides Cholesterol Urine Creatinine Urine Microalbumin Vancomycin Trough Salicylates Acetaminophen 06/12/19 06/12/19 06/12/19 03:58 04:44 10:30 WBC RBC Hgb Hct MCH RDW Plt Count Seg Neuts % (Manual) Lymphocytes % (Manual) Monocytes % (Manual) Seg Neutrophils # Man Lymphocytes # (Manual) Monocytes # (Manual) D-Dimer ABG pH 7.456 H ABG pO2 ABG HCO3 32.7 H ABG O2 Saturation ABG Base Excess 7.7 H ABG Hemoglobin VBG pH Oxyhemoglobin Sodium Potassium 3.4 L Chloride Carbon Dioxide BUN Creatinine 0.4 L Glucose 242 H POC Glucose 203 H Hemoglobin A1c Lactic Acid Calcium Phosphorus Magnesium Ferritin AST 103 H ALT 101 H Alkaline Phosphatase Lactate Dehydrogenase C-Reactive Protein Total Protein 5.9 L Albumin 2.3 L Triglycerides Cholesterol Urine Creatinine Urine Microalbumin Vancomycin Trough Salicylates Acetaminophen 06/12/19 06/13/19 06/13/19 12:01 00:03 02:51 WBC RBC Hgb Hct MCH RDW Plt Count Seg Neuts % (Manual) Lymphocytes % (Manual) Monocytes % (Manual) Seg Neutrophils # Man Lymphocytes # (Manual) Monocytes # (Manual) D-Dimer ABG pH ABG pO2 ABG HCO3 ABG O2 Saturation ABG Base Excess ABG Hemoglobin VBG pH Oxyhemoglobin Sodium Potassium Chloride Carbon Dioxide BUN Creatinine Glucose POC Glucose 178 H 127 H Hemoglobin A1c Lactic Acid Calcium Phosphorus Magnesium Ferritin AST ALT Alkaline Phosphatase Lactate Dehydrogenase 807 H C-Reactive Protein 3.40 H Total Protein Albumin Triglycerides Cholesterol Urine Creatinine Urine Microalbumin Vancomycin Trough Salicylates Acetaminophen 06/13/19 06/13/19 06/13/19 05:17 09:23 09:23 WBC RBC Hgb Hct MCH RDW Plt Count Seg Neuts % (Manual) Lymphocytes % (Manual) Monocytes % (Manual) Seg Neutrophils # Man Lymphocytes # (Manual) Monocytes # (Manual) D-Dimer 1401.68 H ABG pH ABG pO2 ABG HCO3 ABG O2 Saturation ABG Base Excess ABG Hemoglobin VBG pH Oxyhemoglobin Sodium Potassium Chloride Carbon Dioxide BUN Creatinine Glucose POC Glucose 161 H Hemoglobin A1c Lactic Acid Calcium Phosphorus Magnesium Ferritin 1942.0 H AST ALT Alkaline Phosphatase Lactate Dehydrogenase C-Reactive Protein Total Protein Albumin Triglycerides Cholesterol Urine Creatinine Urine Microalbumin Vancomycin Trough Salicylates Acetaminophen 06/13/19 12:03 WBC RBC Hgb Hct MCH RDW Plt Count Seg Neuts % (Manual) Lymphocytes % (Manual) Monocytes % (Manual) Seg Neutrophils # Man Lymphocytes # (Manual) Monocytes # (Manual) D-Dimer ABG pH ABG pO2 ABG HCO3 ABG O2 Saturation ABG Base Excess ABG Hemoglobin VBG pH Oxyhemoglobin Sodium Potassium Chloride Carbon Dioxide BUN Creatinine Glucose POC Glucose 147 H Hemoglobin A1c Lactic Acid Calcium Phosphorus Magnesium Ferritin AST ALT Alkaline Phosphatase Lactate Dehydrogenase C-Reactive Protein Total Protein Albumin Triglycerides Cholesterol Urine Creatinine Urine Microalbumin Vancomycin Trough Salicylates Acetaminophen Allied health notes reviewed: RT
[2019-06-13] MEDS: QUEtiapine 25 MG TAB PO SCH (22:17)
[2019-06-14] MEDS: INSULIN REGULAR, HUMAN 100 UNITS/1 ML SUB-Q SCH ×4 (02:32→18:02)
--- NOTE | 2019-06-14 05:52 | Progress Note ---
Assessment and Plan - Patient Problems (1) Hypernatremia Current Visit: Yes Status: Acute Plan to address problem: Likely in the setting of severe dehydration that can be commonly seen in DKA. Agree with free water replacement. Serum sodium levels improved. Nephrology will sign off at this time, but please do not hesitate to call back as needed. (2) Diabetic ketoacidosis Current Visit: Yes Status: Acute Plan to address problem: Continue current treatment pre protocol. She has been transitioned off insulin regimen and her anion gap has appropriately closed. DM management per primary attending (3) Acute encephalopathy Current Visit: Yes Status: Acute Plan to address problem: Possibly in the setting of hypernatremia and DKA. Stable at this time. (4) Acute respiratory failure with hypoxia Current Visit: Yes Status: Acute Plan to address problem: Management per pulmonology. Now extubated. Stable on 6L O2 via NC. (5) Suspected COVID-19 virus infection Current Visit: Yes Status: Acute Plan to address problem: Per hospitalist note, COVID-19 (+). Follow up further recommendations per ID. (6) Hypertension Current Visit: No Status: Chronic Qualifiers: Hypertension type: essential hypertension Qualified Code(s): I10 - Esse ntial (primary) hypertension Plan to address problem: Would recommend to switch HCTZ to amlodipine for blood pressure control and also prevent worsening of his hypokalemia. Started patient on amlodipine 5 mg daily. (7) Hypokalemia Current Visit: Yes Status: Acute Plan to address problem: Replete per protocol. Subjective Principal diagnosis: Ac hypoxemic resp failure; Bob. PNA; PUI CVOVID-19; DKA; Severe sepsis Interval history: Patient now extubated, stable on O2 via NC. Patient is positive COVID-19. Hypernatremia improved, OG tube discontinued. Pending swallow evaluation. PUI?: Yes COVID19: Positive Objective - Vital Signs Vital signs: Vital Signs - 12hr 06/13/19 06/13/19 06/13/19 18:00 18:15 18:30 Temperature Pulse Rate 100 H 94 H 115 H Pulse Rate [ From Monitor] Respiratory 34 H 42 H 34 H Rate Blood Pressure 125/73 125/73 132/71 O2 Sat by Pulse 93 94 93 Oximetry 06/13/19 06/13/19 06/13/19 18:45 19:00 19:15 Temperature Pulse Rate 116 H 113 H 113 H Pulse Rate [ From Monitor] Respiratory 39 H 38 H 33 H Rate Blood Pressure 132/71 134/81 134/81 O2 Sat by Pulse 92 93 94 Oximetry 06/13/19 06/13/19 06/13/19 19:30 19:45 20:00 Temperature 97.3 F L Pulse Rate 110 H 108 H 111 H Pulse Rate [ From Monitor] Respiratory 34 H 32 H 24 Rate Blood Pressure 136/89 136/89 143/86 O2 Sat by Pulse 95 95 96 Oximetry 06/13/19 06/13/19 06/13/19 20:15 20:30 20:45 Temperature Pulse Rate 101 H 100 H 107 H Pulse Rate [ From Monitor] Respiratory 26 H 23 23 Rate Blood Pressure 143/86 149/92 143/86 O2 Sat by Pulse 96 94 97 Oximetry 06/13/19 06/13/19 06/13/19 21:00 21:15 21:30 Temperature Pulse Rate 104 H 104 H 102 H Pulse Rate [ From Monitor] Respiratory 21 23 20 Rate Blood Pressure 124/73 124/73 131/72 O2 Sat by Pulse 97 97 97 Oximetry 06/13/19 06/13/19 06/13/19 21:45 22:00 23:00 Temperature Pulse Rate 104 H 101 H 97 H Pulse Rate [ From Monitor] Respiratory 20 20 24 Rate Blood Pressure 131/72 131/70 133/80 O2 Sat by Pulse 97 97 95 Oximetry 06/13/19 06/13/19 06/14/19 23:33 23:35 00:00 Temperature 97.1 F L Pulse Rate 98 H 96 H Pulse Rate [ 91 H From Monitor] Respiratory 27 H 24 Rate Blood Pressure 144/91 136/84 O2 Sat by Pulse 95 96 Oximetry 06/14/19 06/14/19 06/14/19 01:00 02:00 03:00 Temperature Pulse Rate 95 H 85 95 H Pulse Rate [ From Monitor] Respiratory 24 22 23 Rate Blood Pressure 139/83 146/93 152/90 O2 Sat by Pulse 95 91 91 Oximetry 06/14/19 06/14/19 06/14/19 03:56 04:00 05:00 Temperature 98.8 F Pulse Rate 86 92 H Pulse Rate [ 88 From Monitor] Respiratory 23 18 Rate Blood Pressure 160/86 155/90 O2 Sat by Pulse 95 97 Oximetry - General Appearance General appearance: well-nourished, obese EENT: ATNC Neck: no JVD Respiratory: Present: Decreased Breath Sounds Cardiology: regular Gastrointestinal: normal Integumentary: no rash Musculoskeletal: deferred Psychiatric: cooperative - Lab 06/12/19 03:58 06/12/19 03:58 Most recent lab results ABG pH 7.456 pH Units (7.350-7.450) H 06/12/19 10:30 ABG pCO2 47.4 mm Hg 06/12/19 10:30 ABG pO2 83.0 mm Hg (80.0-90.0) 06/12/19 10:30 ABG HCO3 32.7 mmol/L (20.0-26.0) H 06/12/19 10:30 ABG O2 Saturation 96.7 % (95.0-99.0) 06/12/19 10:30 Calcium 9.2 mg/dL (8.4-10.2) 06/12/19 03:58 Phosphorus 2.20 mg/dL (2.5-4.5) L 06/08/19 09:33 Magnesium 2.60 mg/dL (1.7-2.3) H 06/08/19 09:33 Urine Creatinine 37.4 mg/dL (0.1-20.0) H 06/03/19 11:48 Urine Sodium 130 mmol/L 06/07/19 17:00 - Allied health notes Allied health notes reviewed: nursing Medications & Allergies - Medications Allergies/Adverse Reactions: Allergies No Known Allergies Allergy (Verified 01/05/15 09:29) Home Medications: Home Medications Medication Instructions Recorded Confirmed Last Taken Type Albuterol INH(or & Nicu Only) 2 puff IH QID PRN 03/13/14 06/13/19 01/04/15 History [ProAir HFA Inhaler] Metformin HCl [metFORMIN ER] 500 mg PO QDAY 03/13/14 06/13/19 01/04/15 History Glimepiride [Amaryl] 1 mg PO QAM 01/05/15 06/13/19 01/04/15 History Losartan/Hydrochlorothiazide 1 tab PO QDAY 01/05/15 06/13/19 01/04/15 History [Hyzaar 50-12.5 TAB] Simvastatin [Zocor TAB] 10 mg PO QHS 01/05/15 06/13/19 01/04/15 History Pantoprazole [Protonix TAB] 40 mg PO QDAY #30 tablet 01/06/15 06/13/19 Unknown Rx Cyclobenzaprine [Flexeril] 10 mg PO QHS PRN #30 tablet 07/04/18 06/13/19 Unknown Rx Ibuprofen [Motrin] 800 mg PO Q8HR #30 tablet 07/04/18 06/13/19 Unknown Rx Active Medications: Generic Name Dose Route Start Last Admin Trade Name Freq PRN Reason Stop Dose Admin Albuterol 2.5 mg 06/03/19 13:57 Proventil IH Q3HRT PRN Shortness Of Breath Amlodipine Besylate 5 mg 06/13/19 14:00 06/13/19 14:14 Amlodipine PO 5 mg QDAY JOSE ROBERTO Administration Lipase/Protease/Amylase 1 each 06/05/19 09:[address] 10,500 Unit FEEDTUBE PRN PRN For Clogged Feeding Tube Dextrose 50 ml 06/03/19 13:57 D50w (25gm) Syringe IV Q30MIN PRN Hypoglycemia Protocol Famotidine 20 mg 06/06/19 10:00 06/13/19 22:17 Pepcid PO Not Given BID JOSE ROBERTO Fentanyl 25 mcg 06/09/19 11:30 Sublimaze IV Q4H PRN AGITATION/ANXIETY Heparin Sodium (Porcine) 5,000 unit 06/03/19 14:15 06/13/19 22:15 Heparin SUB-Q 5,000 unit Q12HR JOSE ROBERTO Administration Hydralazine HCl 10 mg 06/07/19 08:42 06/13/19 14:36 Apresoline IV 10 mg Q4HR PRN Administration Hypertension Hydrophilic Ointment 1 applic 06/03/19 11:02 Vaseline Lip Therapy TP Q2HR PRN Dry Lips Insulin Human Regular 0 units 06/13/19 12:20 06/14/19 02:32 Humulin R SUB-Q Not Given Q6HR JOSE ROBERTO Protocol Losartan Potassium 50 mg 06/07/19 10:00 06/13/19 09:20 Cozaar PO 50 mg QDAY JOSE ROBERTO Administration Multi-Ingred Cream/Lotion/Oil/Oint 1 applic 06/03/19 11:02 Artificial Tears Ophth Oint OU Q4HR PRN Dry Eye(s) Quetiapine Fumarate 50 mg 04/08/20 22:00 06/13/19 22:17 Seroquel PO Not Given QHS JOSE ROBERTO Senna 8.6 mg 06/03/19 22:00 06/13/19 22:17 Senokot PO Not Given BID JOSE ROBERTO Simple Syrup 15 ml 06/05/19 09:59 Simple Syrup FEEDTUBE PRN PRN Hypoglycemia Simple Syrup 30 ml 06/05/19 09:59 Simple Syrup FEEDTUBE PRN PRN Hypoglycemia Sodium Bicarbonate 325 mg 06/05/19 09:59 Sodium Bicarbonate FEEDTUBE PRN PRN For Clogged Feeding Tube Sodium Chloride 10 ml 06/03/19 22:00 06/13/19 22:18 Sodium Chloride Flush Syringe 10 Ml IV 10 ml BID JOSE ROBERTO Administration Sodium Chloride 10 ml 06/03/19 13:57 Sodium Chloride Flush Syringe 10 Ml IV PRN PRN LINE FLUSH
[2019-06-14] MEDS: hydrALAZINE 20 MG/1 ML INJ IV PRN (06:24)
--- NOTE | 2019-06-14 07:41 | Progress Note ---
Assessment and Plan Diane Extubation--Doing reasonably well Assessment and plan: Mrs. Tomas is a 48-year-old female with a history of hypertension, type 2 diabetes mellitus events with altered mental status. She arrived per EMS. Last known time normal 10 PM on night prior to admission. Patient is nonverbal. History obtained from paramedics and electronic medical record. Patient had been ill with fever cough for the past several days. She recently returned back from [place]. EMS discovered patient to be altered with work of breathing. Patient is nonverbal. She was not moving her right side. She is hypoxic at 77% room air. Blood pressure was 140/97. Blood sugar was elevated fingerstick. Hx obtained from [facility] realized that patient was not speaking 4 AM. Found her later breathing really heavy. Unresponsive. When she came back from [place] last Saturday. She had high fever. Her doctor ordered test for COVID-19. Dr. Rausch her PCP informed patient that she tested negative. She went to [place] to celebrate her mother's birthday. On admission she was noted to be in DKA and started on DKA protocol. She was also intubated and on full mechanical ventilatory support. Diagnostic work-up so far EKG shows sinus tachycardia with MAT CT head no acute intracranial process CT cervical spine patchy groundglass consolidative airspace disease right mid to lower lung Mrs. Tomas presents with altered mental status hypoxia. She required mechanical ventilation for oxygenation and airway control. Initially was not moving her right side. With oxygen supplementation she began to move both of her arms. She continued to be nonverbal. She did not follow commands prior to intubation. With CT chest findings and history of fever I strongly suspect COVID 19. Although she previously tested negative there is significant support of false negative test so we will retest. survey form was filled out in the ED by the ED physician through the [facility] department of health as a person under investigation for COVID 19. Patient returned 1 week ago from [place] after celebrating her mother's birthday. * COVID 19 test results came back positive has been advised to forego quarantine himself. COVID 19 Induced Pneumonia Acute hypoxic respiratory failure mild on mechanical ventilation Hypernatremia-remains elevated will increase free water. Hypertension Acute metabolic encephalopathy Right upper extremity weakness now resolved Pneumonia Hypokalemia Leukocytosis Sepsis secondary to pneumonia-with hypothermia Severe metabolic acidosis DKA-resolved Diabetes mellitus with uncontrolled blood sugar Plan 06/04: Remains on full mechanical support. Patient with respiratory alkalosis noted. Adjustment made to the ventilator to decrease the rate. Will replace potassium as hypokalemia still persist. Hypernatremia gradually improving will adjust free water. Patient's anion gap is finally closed will transition to sli ding scale coverage with Lantus. Anticipate weaning trial today if patient is amendable to it. Oxygen at requirements per vent settings appears to be improving 06/05: Leukocytosis improving although patient still hypoxic on the ventilator. Awaiting COVID 19 testing results. In addition continue antibiotics for broad- spectrum coverage. Will adjust insulin for better blood sugar control. 06/06: We will increase free water to 300 cc every 4 hours. We will also obtain consultation from big data hadoop developer. Otherwise continue current therapy. Also noted to have diastolic hypertension will adjust blood pressure medications. Initiated home meds. 06/07: Sodium gradually improving, will adjust free water to 350 while awaiting todays lab and big data hadoop developer. Patient still with non purposeful movement. Will discuss with ID about possible trial drug Ivermectin. Adjust basal insulin to 40 units BID 06/08: ID and pulmonary considering trial of the new medication ivermectin as patient's inflammatory markers went back up. Sodium mildly elevated. In addition to blood sugar. Discontinued D5 water which could be leading to elevated blood sugar. Will adjust free water to 400 every 4 hours. Nephrology following 06/09: Continue supportive care, Continue Management per ID and Critical care team. 06/10 weaning in progress, on D5W for correcting the hypernatremia. Potassium supplemented 06/12/19 probable extubation tomorrow 06/13/19--Extubated today Continue intensive care monitoring. Global Risk Management Director and infectious disease consult input noted EKG reviewed no evidence of atrial fibrillation will repeat. Replace potassium DKA protocol with insulin-will be discontinued f/u COVID test - pending Continue COVID isolation precautions per [facility] protocol S/P Plaquenil and azithromycin X 5 DAYS Obtain serial Ferritin, LDH, D-Dimer, CRP every 48h Empiric antibiotic coverage, obtain blood cultures and urine cultures and sputum cultures. Wean from vent as tolerated defer to cleaning maid We will monitor EKG for any visualization of the atrial fibrillation. If persist will obtain cardiology consult. DVT and GI prophylaxis The high probability of a clinically significant, sudden or life threatening deterioration of the [pulmonary, neuro,] system(s) required my full and direct attention, intervention and personal management. The aggregate critical care time was [35] minutes. This time is in addition to time spent performing reported procedures but includes the following: [x] Data Review and interpretation [x] Patient assessment and monitoring of vital signs [x] Documentation [x] Medication orders and management Subjective Date of service: 06/13/19 Principal diagnosis: Ac hypoxemic resp failure; Bob. PNA; PUI CVOVID-19; DKA; S evere sepsis Interval history: Extubated today PUI?: Yes COVID19: Positive Objective - Exam Narrative Exam: Patient intubated CCT 40 minutes - Constitutional Vitals: Vital Signs - 12hr 06/13/19 06/13/19 06/13/19 19:45 20:00 20:15 Temperature 97.3 F L Pulse Rate 108 H 111 H 101 H Pulse Rate [ From Monitor] Respiratory 32 H 24 26 H Rate Blood Pressure 136/89 143/86 143/86 O2 Sat by Pulse 95 96 96 Oximetry 06/13/19 06/13/19 06/13/19 20:30 20:45 21:00 Temperature Pulse Rate 100 H 107 H 104 H Pulse Rate [ From Monitor] Respiratory 23 23 21 Rate Blood Pressure 149/92 143/86 124/73 O2 Sat by Pulse 94 97 97 Oximetry 06/13/19 06/13/19 06/13/19 21:15 21:30 21:45 Temperature Pulse Rate 104 H 102 H 104 H Pulse Rate [ From Monitor] Respiratory 23 20 20 Rate Blood Pressure 124/73 131/72 131/72 O2 Sat by Pulse 97 97 97 Oximetry 06/13/19 06/13/19 06/13/19 22:00 23:00 23:33 Temperature 97.1 F L Pulse Rate 101 H 97 H Pulse Rate [ From Monitor] Respiratory 20 24 Rate Blood Pressure 131/70 133/80 O2 Sat by Pulse 97 95 Oximetry 06/13/19 06/14/19 06/14/19 23:35 00:00 01:00 Temperature Pulse Rate 98 H 96 H 95 H Pulse Rate [ 91 H From Monitor] Respiratory 27 H 24 24 Rate Blood Pressure 144/91 136/84 139/83 O2 Sat by Pulse 95 96 95 Oximetry 06/14/19 06/14/19 06/14/19 02:00 03:00 03:56 Temperature 98.8 F Pulse Rate 85 95 H Pulse Rate [ From Monitor] Respiratory 22 23 Rate Blood Pressure 146/93 152/90 O2 Sat by Pulse 91 91 Oximetry 06/14/19 06/14/19 06/14/19 04:00 05:00 06:00 Temperature Pulse Rate 101 H 92 H 93 H Pulse Rate [ 88 From Monitor] Respiratory 23 18 13 Rate Blood Pressure 160/86 155/90 162/98 O2 Sat by Pulse 95 97 88 Oximetry 06/14/19 06:24 Temperature Pulse Rate 91 H Pulse Rate [ From Monitor] Respiratory Rate Blood Pressure 162/98 O2 Sat by Pulse Oximetry General appearance: Present: no acute distress, well-nourished - EENT Eyes: PERRL, EOM intact ENT: hearing intact, clear oral mucosa Ears: bilateral: normal - Neck Neck: supple, normal ROM - Respiratory Respiratory effort: normal Respiratory: bilateral: CTA - Breasts Breasts: normal - Cardiovascular Heart rate: 78 Rhythm: regular Heart Sounds: Present: S1 & S2. Absent: gallop, rub Extremities: pulses intact, No edema, normal color, Full ROM - Gastrointestinal General gastrointestinal: Present: soft, non-tender, non-distended, normal bowel sounds - Genitourinary Female genitourinary: normal - Integumentary Integumentary: clear, warm, dry - Musculoskeletal Musculoskeletal: 1, strength equal bilaterally - Neurologic Neurologic: moves all extremities - Psychiatric Psychiatric: memory intact, appropriate mood/affect, intact judgment & insight - Labs CBC & Chem 7: 06/12/19 03:58 06/12/19 03:58 Labs: Abnormal lab results 06/13/19 06/13/19 06/13/19 Range/Units 09:23 09:23 12:03 D-Dimer 1401.68 H (0-234) ng/mlDDU POC Glucose 147 H (70-105) Ferritin 1942.0 H (13.0-400.0) ng/mL 06/13/19 06/14/19 06/14/19 Range/Units 18:17 00:03 05:43 D-Dimer (0-234) ng/mlDDU POC Glucose 172 H 168 H 178 H (70-105) Ferritin (13.0-400.0) ng/mL
[2019-06-14] MEDS: LOSARTAN 50 MG TAB PO SCH (10:14)
[2019-06-14] MEDS: SENNOSIDES 8.6 MG TAB PO SCH ×2 (10:14→21:28)
[2019-06-14] MEDS: amLODIPine 5 MG TAB PO SCH (10:14)
[2019-06-14] MEDS: HEPARIN 5,000 UNIT/1 ML VIAL SUB-Q SCH ×2 (10:14→21:20)
[2019-06-14] MEDS: FAMOTIDINE 20 MG TAB PO SCH ×2 (10:15→21:28)
--- NOTE | 2019-06-14 11:09 | Progress Note ---
Assessment and Plan Sepsis secondary to pneumonia-with hypothermia Acute hypoxic respiratory failure ,s/p mechanical ventilation POSITIVE COVID 19 - severe COVID pneumonia. -Transmission likely from community recent travel to [place]. - Ferritin at 1,037-->1,649-->1,319. LDH 673-->449. CRP 14-->9. Ddimer 434-->1319 DKA, treated Diabetes mellitus with uncontrolled blood sugar Acute metabolic encephalopathy, improving Pneumonia Leukocytosis Paroxysmal atrial fibrillation likely new onset Severe metabolic acidosis-improving Hypernatremia-improving Hypokalemia Oropharyngeal dysphagia, -Bedside swallow evaluation prior to initiating oral feeding -Continue aspiration precautions, HOB>40 - Continue supplemental oxygen to keep O2 sats >92% - Monitor glycemic control, with target blood glucose 140-180 mg/dL while critically ill. -Avoid hypoglycemia - Goal to keep Potassium 4 and Magnesium 2 to optimize respiratory muscle function -VTE prophylaxis on heparin -Stress ulcer prophylaxis- Famotidine -Continue to avoid nephrotoxins, adjust all medications for CrCL and GFR -Follow up BMP and CBC prn - Continue bronchodilators with pulmonary hygiene - Continue to maintain of sleep-wake cycle, avoid delirium - PT/OT/ROM exercises - Continue mobility protocol and skin assessment per protocol for pressure ulcer prevention - s/p Influenza and pneumonia vaccination -Continue COVID isolation precautions per [facility] protocol -Check serial Ferritin, LDH, D-Dimer, CRP per [facility] protocol -s/p hydroxychloroquine (total 5 days) Day 5 of 5 and zinc -s/p antibiotics for CAP s/p steroids s/p Acterma - continue other care per attending / other consultants CONDITION: CRITICAL PROGNOSIS: GUARDED CODE STATUS: FULL CODE The high probability of a clinically significant, sudden or life threatening deterioration of the [pulmonary, neurology, endocrine,] system(s) required my full and direct attention, intervention and personal management. The aggregate critical care time was [31] minutes. This time is in addition to time spent performing reported procedures but includes the following: [x] Data Review and interpretation [x] Patient assessment and monitoring of vital signs [x] Documentation [x] Medication orders and management Subjective Date of service: 06/14/19 Principal diagnosis: Ac hypoxemic resp failure; Bob. PNA; PUI CVOVID-19; DKA; Severe sepsis Interval history: Follow up for: Acute hypoxemic respiratory failure s/p MVS; COVID 19 pneumonia;DKA ; Acute metabolic encephalopathy; Sepsis; Fevers; SHARITA; Seen and examined. Vitals, labs, medications, chart and imaging reviewed. s/p MVS, very soft voice . On going need for high flow oxygen therapy No fevers overnight, more awake and alert. PUI?: Yes COVID19: Positive Objective Vital Signs - 12hr 06/13/19 06/13/19 06/14/19 23:33 23:35 00:00 Temperature 97.1 F L Pulse Rate 98 H 96 H Pulse Rate [ 91 H From Monitor] Respiratory 27 H 24 Rate Blood Pressure 144/91 136/84 O2 Sat by Pulse 95 96 Oximetry 06/14/19 06/14/19 06/14/19 01:00 02:00 03:00 Temperature Pulse Rate 95 H 85 95 H Pulse Rate [ From Monitor] Respiratory 24 22 23 Rate Blood Pressure 139/83 146/93 152/90 O2 Sat by Pulse 95 91 91 Oximetry 06/14/19 06/14/19 06/14/19 03:56 04:00 05:00 Temperature 98.8 F Pulse Rate 101 H 92 H Pulse Rate [ 88 From Monitor] Respiratory 23 18 Rate Blood Pressure 160/86 155/90 O2 Sat by Pulse 95 97 Oximetry 06/14/19 06/14/19 06/14/19 06:00 06:24 07:00 Temperature Pulse Rate 93 H 91 H 96 H Pulse Rate [ From Monitor] Respiratory 13 22 Rate Blood Pressure 162/98 162/98 139/87 O2 Sat by Pulse 88 94 Oximetry 06/14/19 06/14/19 06/14/19 07:49 08:00 08:03 Temperature 97.6 F Pulse Rate 100 H Pulse Rate [ 104 H From Monitor] Respiratory 27 H Rate Blood Pressure 150/90 O2 Sat by Pulse 93 94 Oximetry 06/14/19 06/14/19 06/14/19 09:00 10:00 10:14 Temperature Pulse Rate 93 H 100 H 104 H Pulse Rate [ From Monitor] Respiratory 21 18 Rate Blood Pressure 139/84 119/80 119/80 O2 Sat by Pulse 94 95 Oximetry 06/14/19 11:00 Temperature Pulse Rate 99 H Pulse Rate [ From Monitor] Respiratory 24 Rate Blood Pressure 124/63 O2 Sat by Pulse 95 Oximetry Constitutional: no acute distress, alert, other (Atraumatic, normocephalic, ) Eyes: non-icteric ENT: other (OGT in place, ETT in palce) Neck: supple, no lymphadenopathy, no JVD Effort: mildly labored Ascultation: Bilateral: clear, diminished breath sounds, rhonchi Percussion: Bilateral: not dull Cardiovascular: irregular rhythm, other (S1,S2, no murmurs) Gastrointestinal: normoactive bowel sounds, soft, non-tender, tender Integumentary: normal Extremities: no cyanosis, no edema, pulses normal, no ischemia or petechiae Neurologic: normal mental status, non-focal exam, pupils equal and round, motor strength normal and (generally weak) Psychiatric: mood appropriate, affect normal CBC and BMP: 06/16/19 05:16 06/16/19 05:16 ABG, PT/INR, D-dimer: ABG ABG pH 7.456 pH Units (7.350-7.450) H 06/12/19 10:30 ABG pCO2 47.4 mm Hg 06/12/19 10:30 ABG pO2 83.0 mm Hg (80.0-90.0) 06/12/19 10:30 ABG O2 Saturation 96.7 % (95.0-99.0) 06/12/19 10:30 PT/INR, D-dimer D-Dimer 1401.68 ng/mlDDU (0-234) H 06/13/19 09:23 Abnormal lab findings: Abnormal Labs 06/03/19 06/03/19 06/03/19 10:59 11:15 11:48 WBC RBC Hgb Hct MCH RDW Plt Count Seg Neuts % (Manual) Lymphocytes % (Manual) Monocytes % (Manual) Seg Neutrophils # Man Lymphocytes # (Manual) Monocytes # (Manual) D-Dimer ABG pH ABG pO2 ABG HCO3 ABG O2 Saturation ABG Base Excess ABG Hemoglobin VBG pH Oxyhemoglobin Sodium Potassium Chloride Carbon Dioxide BUN Creatinine Glucose POC Glucose 372 H Hemoglobin A1c Lactic Acid Calcium Phosphorus 11.70 H Magnesium 4.40 H Ferritin AST ALT Alkaline Phosphatase Lactate Dehydrogenase C-Reactive Protein Total Protein Albumin Triglycerides Cholesterol Urine Creatinine 37.4 H Urine Microalbumin 65.1 H Vancomycin Trough Salicylates Acetaminophen 06/03/19 06/03/19 06/03/19 11:51 11:51 11:51 WBC 23.3 H RBC 6.43 H Hgb 17.7 H Hct 59.9 H* MCH RDW 17.1 H Plt Count Seg Neuts % (Manual) 71.0 H Lymphocytes % (Manual) 11.0 L Monocytes % (Manual) 8.0 H Seg Neutrophils # Man 16.5 H Lymphocytes # (Manual) Monocytes # (Manual) 1.9 H D-Dimer ABG pH ABG pO2 ABG HCO3 ABG O2 Saturation ABG Base Excess ABG Hemoglobin VBG pH Oxyhemoglobin Sodium Potassium Chloride Carbon Dioxide 4 L* BUN 41 H Creatinine 1.8 H Glucose 636 H* POC Glucose Hemoglobin A1c Lactic Acid 3.20 H* Calcium 10.9 H Phosphorus Magnesium Ferritin AST 43 H ALT Alkaline Phosphatase 147 H Lactate Dehydrogenase 673 H C-Reactive Protein 14.70 H Total Protein 8.9 H Albumin Triglycerides Cholesterol Urine Creatinine Urine Microalbumin Vancomycin Trough Salicylates Acetaminophen 06/03/19 06/03/19 06/03/19 11:51 11:51 11:51 WBC RBC Hgb Hct MCH RDW Plt Count Seg Neuts % (Manual) Lymphocytes % (Manual) Monocytes % (Manual) Seg Neutrophils # Man Lymphocytes # (Manual) Monocytes # (Manual) D-Dimer ABG pH ABG pO2 ABG HCO3 ABG O2 Saturation ABG Base Excess ABG Hemoglobin VBG pH 6.901 L* Oxyhemoglobin Sodium Potassium Chloride Carbon Dioxide BUN Creatinine Glucose POC Glucose Hemoglobin A1c Lactic Acid Calcium Phosphorus Magnesium Ferritin AST ALT Alkaline Phosphatase Lactate Dehydrogenase C-Reactive Protein Total Protein Albumin Triglycerides Cholesterol Urine Creatinine Urine Microalbumin Vancomycin Trough Salicylates < 0.3 L Acetaminophen < 5.0 L 06/03/19 06/03/19 06/03/19 11:51 11:51 12:34 WBC RBC Hgb Hct MCH RDW Plt Count Seg Neuts % (Manual) Lymphocytes % (Manual) Monocytes % (Manual) Seg Neutrophils # Man Lymphocytes # (Manual) Monocytes # (Manual) D-Dimer 4311.60 H ABG pH ABG pO2 ABG HCO3 ABG O2 Saturation ABG Base Excess ABG Hemoglobin VBG pH Oxyhemoglobin Sodium Potassium Chloride Carbon Dioxide BUN Creatinine Glucose POC Glucose Hemoglobin A1c Lactic Acid 5.20 H* Calcium Phosphorus Magnesium Ferritin 1037.0 H AST ALT Alkaline Phosphatase Lactate Dehydrogenase C-Reactive Protein Total Protein Albumin Triglycerides Cholesterol Urine Creatinine Urine Microalbumin Vancomycin Trough Salicylates Acetaminophen 06/03/19 06/03/19 06/03/19 14:30 16:03 17:00 WBC RBC Hgb Hct MCH RDW Plt Count Seg Neuts % (Manual) Lymphocytes % (Manual) Monocytes % (Manual) Seg Neutrophils # Man Lymphocytes # (Manual) Monocytes # (Manual) D-Dimer ABG pH 6.880 L* ABG pO2 489.9 H ABG HCO3 7.1 L ABG O2 Saturation 99.6 H ABG Base Excess -26.1 L ABG Hemoglobin 16.2 H VBG pH Oxyhemoglobin Sodium Potassium Chloride Carbon Dioxide BUN Creatinine Glucose POC Glucose 335 H Hemoglobin A1c 9.6 H Lactic Acid Calcium Phosphorus Magnesium Ferritin AST ALT Alkaline Phosphatase Lactate Dehydrogenase C-Reactive Protein Total Protein Albumin Triglycerides Cholesterol Urine Creatinine Urine Microalbumin Vancomycin Trough Salicylates Acetaminophen 06/03/19 06/03/19 06/03/19 18:14 18:24 19:00 WBC RBC Hgb Hct MCH RDW Plt Count Seg Neuts % (Manual) Lymphocytes % (Manual) Monocytes % (Manual) Seg Neutrophils # Man Lymphocytes # (Manual) Monocytes # (Manual) D-Dimer ABG pH 7.057 L* ABG pO2 97.2 H ABG HCO3 5.5 L ABG O2 Saturation ABG Base Excess -23.0 L ABG Hemoglobin 18.1 H VBG pH Oxyhemoglobin 94.4 L Sodium Potassium Chloride Carbon Dioxide BUN Creatinine Glucose POC Glucose 285 H Hemoglobin A1c Lactic Acid 3.40 H* Calcium Phosphorus Magnesium Ferritin AST ALT Alkaline Phosphatase Lactate Dehydrogenase C-Reactive Protein Total Protein Albumin Triglycerides Cholesterol Urine Creatinine Urine Microalbumin Vancomycin Trough Salicylates Acetaminophen 06/03/19 06/03/19 06/03/19 19:00 19:00 19:52 WBC RBC Hgb Hct MCH RDW Plt Count Seg Neuts % (Manual) Lymphocytes % (Manual) Monocytes % (Manual) Seg Neutrophils # Man Lymphocytes # (Manual) Monocytes # (Manual) D-Dimer ABG pH ABG pO2 ABG HCO3 ABG O2 Saturation ABG Base Excess ABG Hemoglobin VBG pH Oxyhemoglobin Sodium 151 H Potassium Chloride 120.8 H Carbon Dioxide 6 L* BUN 33 H Creatinine 1.4 H Glucose 339 H POC Glucose 316 H Hemoglobin A1c Lactic Acid Calcium Phosphorus Magnesium Ferritin AST 47 H ALT Alkaline Phosphatase 130 H Lactate Dehydrogenase C-Reactive Protein Total Protein Albumin 3.7 L Triglycerides 424 H Cholesterol 250 H Urine Creatinine Urine Microalbumin Vancomycin Trough Salicylates Acetaminophen 06/03/19 06/03/19 06/03/19 20:21 20:21 21:01 WBC RBC Hgb Hct MCH RDW Plt Count Seg Neuts % (Manual) Lymphocytes % (Manual) Monocytes % (Manual) Seg Neutrophils # Man Lymphocytes # (Manual) Monocytes # (Manual) D-Dimer ABG pH ABG pO2 ABG HCO3 ABG O2 Saturation ABG Base Excess ABG Hemoglobin VBG pH Oxyhemoglobin Sodium 153 H Potassium Chloride 121.8 H Carbon Dioxide 6 L* BUN 34 H Creatinine 1.3 H Glucose 324 H POC Glucose 245 H Hemoglobin A1c Lactic Acid 3.10 H* Calcium Phosphorus Magnesium Ferritin AST ALT Alkaline Phosphatase Lactate Dehydrogenase C-Reactive Protein Total Protein Albumin Triglycerides Cholesterol Urine Creatinine Urine Microalbumin Vancomycin Trough Salicylates Acetaminophen 06/03/19 06/03/19 06/03/19 21:25 21:32 22:42 WBC RBC Hgb Hct MCH RDW Plt Count Seg Neuts % (Manual) Lymphocytes % (Manual) Monocytes % (Manual) Seg Neutrophils # Man Lymphocytes # (Manual) Monocytes # (Manual) D-Dimer ABG pH 7.172 L* ABG pO2 107.2 H ABG HCO3 5.2 L ABG O2 Saturation ABG Base Excess -20.5 L ABG Hemoglobin 17.3 H VBG pH Oxyhemoglobin Sodium 155 H Potassium 2.6 L* D Chloride 130.1 H Carbon Dioxide 5 L* BUN 24 H Creatinine Glucose 212 H POC Glucose 225 H Hemoglobin A1c Lactic Acid Calcium 5.8 L* D Phosphorus Magnesium Ferritin AST ALT Alkaline Phosphatase Lactate Dehydrogenase C-Reactive Protein Total Protein Albumin Triglycerides Cholesterol Urine Creatinine Urine Microalbumin Vancomycin Trough Salicylates Acetaminophen 06/03/19 06/04/19 06/04/19 23:32 00:04 01:25 WBC RBC Hgb Hct MCH RDW Plt Count Seg Neuts % (Manual) Lymphocytes % (Manual) Monocytes % (Manual) Seg Neutrophils # Man Lymphocytes # (Manual) Monocytes # (Manual) D-Dimer ABG pH ABG pO2 ABG HCO3 ABG O2 Saturation ABG Base Excess ABG Hemoglobin VBG pH Oxyhemoglobin Sodium 151 H 151 H Potassium 1.5 L* D Chloride 139.0 H 124.7 H Carbon Dioxide 3 L* 9 L* BUN 31 H Creatinine 0.2 L D Glucose 117 H 241 H POC Glucose 231 H Hemoglobin A1c Lactic Acid Calcium 3.1 L* D Phosphorus Magnesium Ferritin AST ALT Alkaline Phosphatase Lactate Dehydrogenase C-Reactive Protein Total Protein Albumin Triglycerides Cholesterol Urine Creatinine Urine Microalbumin Vancomycin Trough Salicylates Acetaminophen 06/04/19 06/04/19 06/04/19 01:34 02:45 03:21 WBC RBC Hgb Hct MCH RDW Plt Count Seg Neuts % (Manual) Lymphocytes % (Manual) Monocytes % (Manual) Seg Neutrophils # Man Lymphocytes # (Manual) Monocytes # (Manual) D-Dimer ABG pH ABG pO2 ABG HCO3 ABG O2 Saturation ABG Base Excess ABG Hemoglobin VBG pH Oxyhemoglobin Sodium Potassium Chloride Carbon Dioxide BUN Creatinine Glucose POC Glucose 194 H 189 H 183 H Hemoglobin A1c Lactic Acid Calcium Phosphorus Magnesium Ferritin AST ALT Alkaline Phosphatase Lactate Dehydrogenase C-Reactive Protein Total Protein Albumin Triglycerides Cholesterol Urine Creatinine Urine Microalbumin Vancomycin Trough Salicylates Acetaminophen 06/04/19 06/04/19 06/04/19 04:50 05:07 06:27 WBC RBC Hgb Hct MCH RDW Plt Count Seg Neuts % (Manual) Lymphocytes % (Manual) Monocytes % (Manual) Seg Neutrophils # Man Lymphocytes # (Manual) Monocytes # (Manual) D-Dimer ABG pH ABG pO2 76.5 L ABG HCO3 12.9 L ABG O2 Saturation ABG Base Excess -9.0 L ABG Hemoglobin VBG pH Oxyhemoglobin Sodium Potassium Chloride Carbon Dioxide BUN Creatinine Glucose POC Glucose 200 H 164 H Hemoglobin A1c Lactic Acid Calcium Phosphorus Magnesium Ferritin AST ALT Alkaline Phosphatase Lactate Dehydrogenase C-Reactive Protein Total Protein Albumin Triglycerides Cholesterol Urine Creatinine Urine Microalbumin Vancomycin Trough Salicylates Acetaminophen 06/04/19 06/04/19 06/04/19 07:00 07:00 07:00 WBC 13.4 H RBC 5.54 H Hgb 15.3 H Hct 46.1 H D MCH RDW Plt Count Seg Neuts % (Manual) 72.0 H Lymphocytes % (Manual) 6.0 L Monocytes % (Manual) Seg Neutrophils # Man 9.6 H Lymphocytes # (Manual) 0.8 L Monocytes # (Manual) D-Dimer ABG pH ABG pO2 ABG HCO3 ABG O2 Saturation ABG Base Excess ABG Hemoglobin VBG pH Oxyhemoglobin Sodium 158 H 156 H Potassium 2.7 L* D 2.6 L* Chloride 124.3 H 123.5 H Carbon Dioxide 11 L 11 L BUN 25 H 26 H Creatinine Glucose 192 H 190 H POC Glucose Hemoglobin A1c Lactic Acid Calcium Phosphorus Magnesium Ferritin AST 43 H ALT Alkaline Phosphatase Lactate Dehydrogenase 590 H C-Reactive Protein 22.70 H Total Protein Albumin 2.9 L Triglycerides Cholesterol Urine Creatinine Urine Microalbumin Vancomycin Trough Salicylates Acetaminophen 06/04/19 06/04/19 06/04/19 07:00 07:00 07:14 WBC RBC Hgb Hct MCH RDW Plt Count Seg Neuts % (Manual) Lymphocytes % (Manual) Monocytes % (Manual) Seg Neutrophils # Man Lymphocytes # (Manual) Monocytes # (Manual) D-Dimer 2050.33 H ABG pH ABG pO2 ABG HCO3 ABG O2 Saturation ABG Base Excess ABG Hemoglobin VBG pH Oxyhemoglobin Sodium Potassium Chloride Carbon Dioxide BUN Creatinine Glucose POC Glucose 176 H Hemoglobin A1c Lactic Acid Calcium Phosphorus Magnesium Ferritin 941.3 H AST ALT Alkaline Phosphatase Lactate Dehydrogenase C-Reactive Protein Total Protein Albumin Triglycerides Cholesterol Urine Creatinine Urine Microalbumin Vancomycin Trough Salicylates Acetaminophen 06/04/19 06/04/19 06/04/19 09:55 11:38 12:19 WBC RBC Hgb Hct MCH RDW Plt Count Seg Neuts % (Manual) Lymphocytes % (Manual) Monocytes % (Manual) Seg Neutrophils # Man Lymphocytes # (Manual) Monocytes # (Manual) D-Dimer ABG pH ABG pO2 ABG HCO3 ABG O2 Saturation ABG Base Excess ABG Hemoglobin VBG pH Oxyhemoglobin Sodium Potassium Chloride Carbon Dioxide BUN Creatinine Glucose POC Glucose 184 H 145 H 144 H Hemoglobin A1c Lactic Acid Calcium Phosphorus Magnesium Ferritin AST ALT Alkaline Phosphatase Lactate Dehydrogenase C-Reactive Protein Total Protein Albumin Triglycerides Cholesterol Urine Creatinine Urine Microalbumin Vancomycin Trough Salicylates Acetaminophen 06/04/19 06/04/19 06/04/19 13:35 14:29 15:06 WBC RBC Hgb Hct MCH RDW Plt Count Seg Neuts % (Manual) Lymphocytes % (Manual) Monocytes % (Manual) Seg Neutrophils # Man Lymphocytes # (Manual) Monocytes # (Manual) D-Dimer ABG pH ABG pO2 ABG HCO3 ABG O2 Saturation ABG Base Excess ABG Hemoglobin VBG pH Oxyhemoglobin Sodium 157 H Potassium 2.4 L* Chloride 121.4 H Carbon Dioxide 20 L D BUN 21 H Creatinine Glucose 176 H POC Glucose 151 H 142 H Hemoglobin A1c Lactic Acid Calcium Phosphorus Magnesium Ferritin AST ALT Alkaline Phosphatase Lactate Dehydrogenase C-Reactive Protein Total Protein Albumin Triglycerides Cholesterol Urine Creatinine Urine Microalbumin Vancomycin Trough Salicylates Acetaminophen 06/04/19 06/04/19 06/04/19 17:14 17:51 21:45 WBC RBC Hgb Hct MCH RDW Plt Count Seg Neuts % (Manual) Lymphocytes % (Manual) Monocytes % (Manual) Seg Neutrophils # Man Lymphocytes # (Manual) Monocytes # (Manual) D-Dimer ABG pH ABG pO2 ABG HCO3 ABG O2 Saturation ABG Base Excess ABG Hemoglobin VBG pH Oxyhemoglobin Sodium Potassium Chloride Carbon Dioxide BUN Creatinine Glucose POC Glucose 200 H 159 H 143 H Hemoglobin A1c Lactic Acid Calcium Phosphorus Magnesium Ferritin AST ALT Alkaline Phosphatase Lactate Dehydrogenase C-Reactive Protein Total Protein Albumin Triglycerides Cholesterol Urine Creatinine Urine Microalbumin Vancomycin Trough Salicylates Acetaminophen 06/04/19 06/04/19 06/04/19 22:20 22:21 23:27 WBC RBC Hgb Hct MCH RDW Plt Count Seg Neuts % (Manual) Lymphocytes % (Manual) Monocytes % (Manual) Seg Neutrophils # Man Lymphocytes # (Manual) Monocytes # (Manual) D-Dimer ABG pH 7.572 H ABG pO2 58.5 L ABG HCO3 ABG O2 Saturation ABG Base Excess 3.5 H ABG Hemoglobin 20.0 H VBG pH Oxyhemoglobin 94.6 L Sodium Potassium Chloride Carbon Dioxide BUN Creatinine Glucose POC Glucose 154 H 147 H Hemoglobin A1c Lactic Acid Calcium Phosphorus Magnesium Ferritin AST ALT Alkaline Phosphatase Lactate Dehydrogenase C-Reactive Protein Total Protein Albumin Triglycerides Cholesterol Urine Creatinine Urine Microalbumin Vancomycin Trough Salicylates Acetaminophen 06/05/19 06/05/19 06/05/19 00:27 01:16 02:20 WBC RBC Hgb Hct MCH RDW Plt Count Seg Neuts % (Manual) Lymphocytes % (Manual) Monocytes % (Manual) Seg Neutrophils # Man Lymphocytes # (Manual) Monocytes # (Manual) D-Dimer ABG pH ABG pO2 ABG HCO3 ABG O2 Saturation ABG Base Excess ABG Hemoglobin VBG pH Oxyhemoglobin Sodium Potassium Chloride Carbon Dioxide BUN Creatinine Glucose POC Glucose 124 H 126 H 156 H Hemoglobin A1c Lactic Acid Calcium Phosphorus Magnesium Ferritin AST ALT Alkaline Phosphatase Lactate Dehydrogenase C-Reactive Protein Total Protein Albumin Triglycerides Cholesterol Urine Creatinine Urine Microalbumin Vancomycin Trough Salicylates Acetaminophen 06/05/19 06/05/19 06/05/19 03:44 03:59 04:52 WBC RBC Hgb Hct MCH RDW Plt Count Seg Neuts % (Manual) Lymphocytes % (Manual) Monocytes % (Manual) Seg Neutrophils # Man Lymphocytes # (Manual) Monocytes # (Manual) D-Dimer ABG pH ABG pO2 ABG HCO3 ABG O2 Saturation ABG Base Excess ABG Hemoglobin VBG pH Oxyhemoglobin Sodium 155 H Potassium 3.0 L D Chloride 114.7 H Carbon Dioxide BUN Creatinine 0.6 L Glucose 136 H POC Glucose 143 H 141 H Hemoglobin A1c Lactic Acid Calcium Phosphorus Magnesium Ferritin AST ALT Alkaline Phosphatase Lactate Dehydrogenase C-Reactive Protein Total Protein Albumin Triglycerides Cholesterol Urine Creatinine Urine Microalbumin Vancomycin Trough Salicylates Acetaminophen 06/05/19 06/05/19 06/05/19 05:00 05:54 07:01 WBC RBC Hgb Hct MCH RDW Plt Count Seg Neuts % (Manual) Lymphocytes % (Manual) Monocytes % (Manual) Seg Neutrophils # Man Lymphocytes # (Manual) Monocytes # (Manual) D-Dimer ABG pH 7.621 H* ABG pO2 54.3 L ABG HCO3 29.8 H ABG O2 Saturation ABG Base Excess 8.8 H ABG Hemoglobin VBG pH Oxyhemoglobin Sodium Potassium Chloride Carbon Dioxide BUN Creatinine Glucose POC Glucose 155 H 145 H Hemoglobin A1c Lactic Acid Calcium Phosphorus Magnesium Ferritin AST ALT Alkaline Phosphatase Lactate Dehydrogenase C-Reactive Protein Total Protein Albumin Triglycerides Cholesterol Urine Creatinine Urine Microalbumin Vancomycin Trough Salicylates Acetaminophen 06/05/19 06/05/19 06/05/19 12:13 18:23 21:00 WBC RBC Hgb Hct MCH RDW Plt Count Seg Neuts % (Manual) Lymphocytes % (Manual) Monocytes % (Manual) Seg Neutrophils # Man Lymphocytes # (Manual) Monocytes # (Manual) D-Dimer ABG pH ABG pO2 ABG HCO3 ABG O2 Saturation ABG Base Excess ABG Hemoglobin VBG pH Oxyhemoglobin Sodium Potassium Chloride Carbon Dioxide BUN Creatinine Glucose POC Glucose 202 H 257 H Hemoglobin A1c Lactic Acid Calcium Phosphorus Magnesium Ferritin AST ALT Alkaline Phosphatase Lactate Dehydrogenase C-Reactive Protein Total Protein Albumin Triglycerides Cholesterol Urine Creatinine Urine Microalbumin Vancomycin Trough 4.2 L Salicylates Acetaminophen 06/05/19 06/06/19 06/06/19 23:55 04:16 04:37 WBC RBC Hgb Hct MCH RDW Plt Count Seg Neuts % (Manual) Lymphocytes % (Manual) Monocytes % (Manual) Seg Neutrophils # Man Lymphocytes # (Manual) Monocytes # (Manual) D-Dimer 1279.22 H ABG pH 7.600 H ABG pO2 62.4 L ABG HCO3 28.0 H ABG O2 Saturation ABG Base Excess 6.6 H ABG Hemoglobin 10.4 L VBG pH Oxyhemoglobin Sodium Potassium Chloride Carbon Dioxide BUN Creatinine Glucose POC Glucose 267 H Hemoglobin A1c Lactic Acid Calcium Phosphorus Magnesium Ferritin AST ALT Alkaline Phosphatase Lactate Dehydrogenase C-Reactive Protein Total Protein Albumin Triglycerides Cholesterol Urine Creatinine Urine Microalbumin Vancomycin Trough Salicylates Acetaminophen 06/06/19 06/06/19 06/06/19 04:37 04:37 04:37 WBC 12.2 H RBC 5.10 H Hgb Hct MCH 27 L RDW Plt Count Seg Neuts % (Manual) Lymphocytes % (Manual) Monocytes % (Manual) Seg Neutrophils # Man Lymphocytes # (Manual) Monocytes # (Manual) D-Dimer ABG pH ABG pO2 ABG HCO3 ABG O2 Saturation ABG Base Excess ABG Hemoglobin VBG pH Oxyhemoglobin Sodium 156 H Potassium 3.4 L Chloride 112.9 H Carbon Dioxide BUN 21 H Creatinine 0.6 L Glucose 332 H POC Glucose Hemoglobin A1c Lactic Acid Calcium Phosphorus Magnesium Ferritin 1649.0 H AST ALT Alkaline Phosphatase Lactate Dehydrogenase 578 H C-Reactive Protein 22.10 H Total Protein Albumin Triglycerides Cholesterol Urine Creatinine Urine Microalbumin Vancomycin Trough Salicylates Acetaminophen 06/06/19 06/06/19 06/06/19 05:45 11:55 12:21 WBC RBC Hgb Hct MCH RDW Plt Count Seg Neuts % (Manual) Lymphocytes % (Manual) Monocytes % (Manual) Seg Neutrophils # Man Lymphocytes # (Manual) Monocytes # (Manual) D-Dimer ABG pH 7.511 H ABG pO2 123.0 H ABG HCO3 29.7 H ABG O2 Saturation ABG Base Excess 6.4 H ABG Hemoglobin VBG pH Oxyhemoglobin Sodium Potassium Chloride Carbon Dioxide BUN Creatinine Glucose POC Glucose 303 H 281 H Hemoglobin A1c Lactic Acid Calcium Phosphorus Magnesium Ferritin AST ALT Alkaline Phosphatase Lactate Dehydrogenase C-Reactive Protein Total Protein Albumin Triglycerides Cholesterol Urine Creatinine Urine Microalbumin Vancomycin Trough Salicylates Acetaminophen 06/06/19 06/07/19 06/07/19 17:06 00:25 04:39 WBC RBC Hgb Hct MCH RDW Plt Count Seg Neuts % (Manual) Lymphocytes % (Manual) Monocytes % (Manual) Seg Neutrophils # Man Lymphocytes # (Manual) Monocytes # (Manual) D-Dimer ABG pH 7.507 H ABG pO2 46.4 L ABG HCO3 32.6 H ABG O2 Saturation 90.6 L ABG Base Excess 8.6 H ABG Hemoglobin VBG pH Oxyhemoglobin 89.2 L Sodium Potassium Chloride Carbon Dioxide BUN Creatinine Glucose POC Glucose 251 H 225 H Hemoglobin A1c Lactic Acid Calcium Phosphorus Magnesium Ferritin AST ALT Alkaline Phosphatase Lactate Dehydrogenase C-Reactive Protein Total Protein Albumin Triglycerides Cholesterol Urine Creatinine Urine Microalbumin Vancomycin Trough Salicylates Acetaminophen 06/07/19 06/07/19 06/07/19 04:43 04:43 04:43 WBC 13.6 H RBC 5.14 H Hgb Hct 43.4 H MCH 27 L RDW Plt Count Seg Neuts % (Manual) Lymphocytes % (Manual) Monocytes % (Manual) Seg Neutrophils # Man Lymphocytes # (Manual) Monocytes # (Manual) D-Dimer ABG pH ABG pO2 ABG HCO3 ABG O2 Saturation ABG Base Excess ABG Hemoglobin VBG pH Oxyhemoglobin Sodium 166 H* D Potassium 3.0 L Chloride 122.9 H Carbon Dioxide BUN 27 H Creatinine 0.5 L Glucose 265 H POC Glucose Hemoglobin A1c Lactic Acid Calcium Phosphorus Magnesium Ferritin AST ALT Alkaline Phosphatase Lactate Dehydrogenase C-Reactive Protein Total Protein Albumin Triglycerides 373 H Cholesterol Urine Creatinine Urine Microalbumin Vancomycin Trough Salicylates Acetaminophen 06/07/19 06/07/19 06/07/19 10:12 11:39 15:31 WBC RBC Hgb Hct MCH RDW Plt Count Seg Neuts % (Manual) Lymphocytes % (Manual) Monocytes % (Manual) Seg Neutrophils # Man Lymphocytes # (Manual) Monocytes # (Manual) D-Dimer ABG pH ABG pO2 ABG HCO3 ABG O2 Saturation ABG Base Excess ABG Hemoglobin VBG pH Oxyhemoglobin Sodium 163 H* 161 H* Potassium 3.1 L Chloride 117.7 H Carbon Dioxide BUN 22 H Creatinine 0.5 L Glucose 274 H POC Glucose 218 H Hemoglobin A1c Lactic Acid Calcium Phosphorus Magnesium Ferritin AST ALT Alkaline Phosphatase Lactate Dehydrogenase C-Reactive Protein Total Protein Albumin Triglycerides Cholesterol Urine Creatinine Urine Microalbumin Vancomycin Trough Salicylates Acetaminophen 06/07/19 06/08/19 06/08/19 17:16 00:04 03:45 WBC RBC Hgb Hct MCH RDW Plt Count Seg Neuts % (Manual) Lymphocytes % (Manual) Monocytes % (Manual) Seg Neutrophils # Man Lymphocytes # (Manual) Monocytes # (Manual) D-Dimer ABG pH 7.504 H ABG pO2 54.2 L ABG HCO3 32.3 H ABG O2 Saturation 93.7 L ABG Base Excess 8.4 H ABG Hemoglobin VBG pH Oxyhemoglobin 92.2 L Sodium Potassium Chloride Carbon Dioxide BUN Creatinine Glucose POC Glucose 284 H 283 H Hemoglobin A1c Lactic Acid Calcium Phosphorus Magnesium Ferritin AST ALT Alkaline Phosphatase Lactate Dehydrogenase C-Reactive Protein Total Protein Albumin Triglycerides Cholesterol Urine Creatinine Urine Microalbumin Vancomycin Trough Salicylates Acetaminophen 06/08/19 06/08/19 06/08/19 05:02 09:33 09:33 WBC RBC Hgb Hct MCH RDW Plt Count Seg Neuts % (Manual) Lymphocytes % (Manual) Monocytes % (Manual) Seg Neutrophils # Man Lymphocytes # (Manual) Monocytes # (Manual) D-Dimer 1319.18 H ABG pH ABG pO2 ABG HCO3 ABG O2 Saturation ABG Base Excess ABG Hemoglobin VBG pH Oxyhemoglobin Sodium Potassium Chloride Carbon Dioxide BUN Creatinine Glucose POC Glucose 291 H Hemoglobin A1c Lactic Acid Calcium Phosphorus Magnesium Ferritin 1274.0 H AST ALT Alkaline Phosphatase Lactate Dehydrogenase C-Reactive Protein Total Protein Albumin Triglycerides Cholesterol Urine Creatinine Urine Microalbumin Vancomycin Trough Salicylates Acetaminophen 06/08/19 06/08/19 06/08/19 09:33 09:33 17:46 WBC 16.0 H RBC Hgb Hct MCH 27 L RDW Plt Count Seg Neuts % (Manual) Lymphocytes % (Manual) Monocytes % (Manual) Seg Neutrophils # Man Lymphocytes # (Manual) Monocytes # (Manual) D-Dimer ABG pH ABG pO2 ABG HCO3 ABG O2 Saturation ABG Base Excess ABG Hemoglobin VBG pH Oxyhemoglobin Sodium 157 H Potassium 3.1 L Chloride 116.7 H Carbon Dioxide BUN 24 H Creatinine 0.5 L Glucose 351 H POC Glucose 309 H Hemoglobin A1c Lactic Acid Calcium Phosphorus 2.20 L Magnesium 2.60 H Ferritin AST ALT Alkaline Phosphatase 131 H Lactate Dehydrogenase 449 H C-Reactive Protein 9.70 H Total Protein 6.1 L Albumin 2.1 L Triglycerides Cholesterol Urine Creatinine Urine Microalbumin Vancomycin Trough Salicylates Acetaminophen 06/08/19 06/08/19 06/09/19 21:55 23:46 04:18 WBC RBC Hgb Hct MCH RDW Plt Count Seg Neuts % (Manual) Lymphocytes % (Manual) Monocytes % (Manual) Seg Neutrophils # Man Lymphocytes # (Manual) Monocytes # (Manual) D-Dimer ABG pH 7.480 H ABG pO2 70.9 L ABG HCO3 32.9 H ABG O2 Saturation ABG Base Excess 8.4 H ABG Hemoglobin 10.3 L VBG pH Oxyhemoglobin 94.8 L Sodium 151 H Potassium 3.3 L Chloride 112.7 H Carbon Dioxide 31 H BUN 24 H Creatinine 0.5 L Glucose 321 H POC Glucose 331 H Hemoglobin A1c Lactic Acid Calcium Phosphorus Magnesium Ferritin AST ALT Alkaline Phosphatase Lactate Dehydrogenase C-Reactive Protein Total Protein Albumin Triglycerides Cholesterol Urine Creatinine Urine Microalbumin Vancomycin Trough Salicylates Acetaminophen 06/09/19 06/09/19 06/09/19 05:35 07:34 07:34 WBC 14.2 H RBC Hgb Hct MCH 27 L RDW Plt Count Seg Neuts % (Manual) Lymphocytes % (Manual) Monocytes % (Manual) Seg Neutrophils # Man Lymphocytes # (Manual) Monocytes # (Manual) D-Dimer ABG pH ABG pO2 ABG HCO3 ABG O2 Saturation ABG Base Excess ABG Hemoglobin VBG pH Oxyhemoglobin Sodium 153 H Potassium 3.0 L Chloride 113.6 H Carbon Dioxide BUN 26 H Creatinine 0.5 L Glucose 306 H POC Glucose 264 H Hemoglobin A1c Lactic Acid Calcium Phosphorus Magnesium Ferritin AST ALT Alkaline Phosphatase Lactate Dehydrogenase 411 H C-Reactive Protein 6.00 H Total Protein Albumin Triglycerides 304 H Cholesterol Urine Creatinine Urine Microalbumin Vancomycin Trough Salicylates Acetaminophen 06/09/19 06/09/19 06/09/19 07:34 07:34 18:29 WBC RBC Hgb Hct MCH RDW Plt Count Seg Neuts % (Manual) Lymphocytes % (Manual) Monocytes % (Manual) Seg Neutrophils # Man Lymphocytes # (Manual) Monocytes # (Manual) D-Dimer 991.99 H ABG pH ABG pO2 ABG HCO3 ABG O2 Saturation ABG Base Excess ABG Hemoglobin VBG pH Oxyhemoglobin Sodium Potassium Chloride Carbon Dioxide BUN Creatinine Glucose POC Glucose 226 H Hemoglobin A1c Lactic Acid Calcium Phosphorus Magnesium Ferritin 1078.0 H AST ALT Alkaline Phosphatase Lactate Dehydrogenase C-Reactive Protein Total Protein Albumin Triglycerides Cholesterol Urine Creatinine Urine Microalbumin Vancomycin Trough Salicylates Acetaminophen 06/09/19 06/09/19 06/10/19 19:22 23:43 04:05 WBC RBC Hgb Hct MCH RDW Plt Count Seg Neuts % (Manual) Lymphocytes % (Manual) Monocytes % (Manual) Seg Neutrophils # Man Lymphocytes # (Manual) Monocytes # (Manual) D-Dimer ABG pH 7.472 H ABG pO2 63.0 L ABG HCO3 31.3 H ABG O2 Saturation 94.5 L ABG Base Excess 6.9 H ABG Hemoglobin VBG pH Oxyhemoglobin 93.0 L Sodium Potassium Chloride 110.1 H Carbon Dioxide BUN 20 H Creatinine 0.4 L Glucose 237 H POC Glucose 177 H Hemoglobin A1c Lactic Acid Calcium Phosphorus Magnesium Ferritin AST ALT Alkaline Phosphatase Lactate Dehydrogenase C-Reactive Protein Total Protein Albumin Triglycerides Cholesterol Urine Creatinine Urine Microalbumin Vancomycin Trough Salicylates Acetaminophen 06/10/19 06/10/19 06/10/19 06:28 12:30 18:08 WBC RBC Hgb Hct MCH RDW Plt Count Seg Neuts % (Manual) Lymphocytes % (Manual) Monocytes % (Manual) Seg Neutrophils # Man Lymphocytes # (Manual) Monocytes # (Manual) D-Dimer ABG pH ABG pO2 ABG HCO3 ABG O2 Saturation ABG Base Excess ABG Hemoglobin VBG pH Oxyhemoglobin Sodium Potassium Chloride Carbon Dioxide BUN Creatinine Glucose POC Glucose 172 H 166 H 172 H Hemoglobin A1c Lactic Acid Calcium Phosphorus Magnesium Ferritin AST ALT Alkaline Phosphatase Lactate Dehydrogenase C-Reactive Protein Total Protein Albumin Triglycerides Cholesterol Urine Creatinine Urine Microalbumin Vancomycin Trough Salicylates Acetaminophen 06/10/19 06/10/19 06/10/19 23:53 Unknown Unknown WBC 13.7 H RBC Hgb Hct MCH RDW Plt Count 84 L Seg Neuts % (Manual) Lymphocytes % (Manual) Monocytes % (Manual) Seg Neutrophils # Man Lymphocytes # (Manual) Monocytes # (Manual) D-Dimer ABG pH ABG pO2 ABG HCO3 ABG O2 Saturation ABG Base Excess ABG Hemoglobin VBG pH Oxyhemoglobin Sodium 148 H Potassium 3.3 L Chloride 111.5 H Carbon Dioxide BUN 20 H Creatinine 0.4 L Glucose 185 H POC Glucose 186 H Hemoglobin A1c Lactic Acid Calcium Phosphorus Magnesium Ferritin AST ALT Alkaline Phosphatase Lactate Dehydrogenase C-Reactive Protein Total Protein Albumin Triglycerides Cholesterol Urine Creatinine Urine Microalbumin Vancomycin Trough Salicylates Acetaminophen 06/11/19 06/11/19 06/11/19 04:31 04:31 04:31 WBC RBC Hgb Hct MCH RDW Plt Count Seg Neuts % (Manual) Lymphocytes % (Manual) Monocytes % (Manual) Seg Neutrophils # Man Lymphocytes # (Manual) Monocytes # (Manual) D-Dimer 1206.09 H ABG pH ABG pO2 ABG HCO3 ABG O2 Saturation ABG Base Excess ABG Hemoglobin VBG pH Oxyhemoglobin Sodium 146 H Potassium 3.3 L Chloride 109.4 H Carbon Dioxide BUN Creatinine 0.5 L Glucose 186 H POC Glucose Hemoglobin A1c Lactic Acid Calcium Phosphorus Magnesium Ferritin 905.9 H AST ALT Alkaline Phosphatase Lactate Dehydrogenase 417 H C-Reactive Protein 3.30 H Total Protein Albumin Triglycerides Cholesterol Urine Creatinine Urine Microalbumin Vancomycin Trough Salicylates Acetaminophen 06/11/19 06/11/19 06/11/19 04:31 05:35 11:41 WBC 17.0 H RBC Hgb Hct MCH 27 L RDW Plt Count Seg Neuts % (Manual) Lymphocytes % (Manual) Monocytes % (Manual) Seg Neutrophils # Man Lymphocytes # (Manual) Monocytes # (Manual) D-Dimer ABG pH ABG pO2 ABG HCO3 ABG O2 Saturation ABG Base Excess ABG Hemoglobin VBG pH Oxyhemoglobin Sodium Potassium Chloride Carbon Dioxide BUN Creatinine Glucose POC Glucose 151 H 209 H Hemoglobin A1c Lactic Acid Calcium Phosphorus Magnesium Ferritin AST ALT Alkaline Phosphatase Lactate Dehydrogenase C-Reactive Protein Total Protein Albumin Triglycerides Cholesterol Urine Creatinine Urine Microalbumin Vancomycin Trough Salicylates Acetaminophen 06/11/19 06/11/19 06/12/19 17:27 23:52 03:58 WBC 14.9 H RBC Hgb Hct MCH RDW Plt Count Seg Neuts % (Manual) 72.0 H Lymphocytes % (Manual) 13.0 L Monocytes % (Manual) 13.0 H Seg Neutrophils # Man 10.7 H Lymphocytes # (Manual) Monocytes # (Manual) 1.9 H D-Dimer ABG pH ABG pO2 ABG HCO3 ABG O2 Saturation ABG Base Excess ABG Hemoglobin VBG pH Oxyhemoglobin Sodium Potassium Chloride Carbon Dioxide BUN Creatinine Glucose POC Glucose 181 H 223 H Hemoglobin A1c Lactic Acid Calcium Phosphorus Magnesium Ferritin AST ALT Alkaline Phosphatase Lactate Dehydrogenase C-Reactive Protein Total Protein Albumin Triglycerides Cholesterol Urine Creatinine Urine Microalbumin Vancomycin Trough Salicylates Acetaminophen 06/12/19 06/12/19 06/12/19 03:58 04:44 10:30 WBC RBC Hgb Hct MCH RDW Plt Count Seg Neuts % (Manual) Lymphocytes % (Manual) Monocytes % (Manual) Seg Neutrophils # Man Lymphocytes # (Manual) Monocytes # (Manual) D-Dimer ABG pH 7.456 H ABG pO2 ABG HCO3 32.7 H ABG O2 Saturation ABG Base Excess 7.7 H ABG Hemoglobin VBG pH Oxyhemoglobin Sodium Potassium 3.4 L Chloride Carbon Dioxide BUN Creatinine 0.4 L Glucose 242 H POC Glucose 203 H Hemoglobin A1c Lactic Acid Calcium Phosphorus Magnesium Ferritin AST 103 H ALT 101 H Alkaline Phosphatase Lactate Dehydrogenase C-Reactive Protein Total Protein 5.9 L Albumin 2.3 L Triglycerides Cholesterol Urine Creatinine Urine Microalbumin Vancomycin Trough Salicylates Acetaminophen 06/12/19 06/13/19 06/13/19 12:01 00:03 02:51 WBC RBC Hgb Hct MCH RDW Plt Count Seg Neuts % (Manual) Lymphocytes % (Manual) Monocytes % (Manual) Seg Neutrophils # Man Lymphocytes # (Manual) Monocytes # (Manual) D-Dimer ABG pH ABG pO2 ABG HCO3 ABG O2 Saturation ABG Base Excess ABG Hemoglobin VBG pH Oxyhemoglobin Sodium Potassium Chloride Carbon Dioxide BUN Creatinine Glucose POC Glucose 178 H 127 H Hemoglobin A1c Lactic Acid Calcium Phosphorus Magnesium Ferritin AST ALT Alkaline Phosphatase Lactate Dehydrogenase 807 H C-Reactive Protein 3.40 H Total Protein Albumin Triglycerides Cholesterol Urine Creatinine Urine Microalbumin Vancomycin Trough Salicylates Acetaminophen 06/13/19 06/13/19 06/13/19 05:17 09:23 09:23 WBC RBC Hgb Hct MCH RDW Plt Count Seg Neuts % (Manual) Lymphocytes % (Manual) Monocytes % (Manual) Seg Neutrophils # Man Lymphocytes # (Manual) Monocytes # (Manual) D-Dimer 1401.68 H ABG pH ABG pO2 ABG HCO3 ABG O2 Saturation ABG Base Excess ABG Hemoglobin VBG pH Oxyhemoglobin Sodium Potassium Chloride Carbon Dioxide BUN Creatinine Glucose POC Glucose 161 H Hemoglobin A1c Lactic Acid Calcium Phosphorus Magnesium Ferritin 1942.0 H AST ALT Alkaline Phosphatase Lactate Dehydrogenase C-Reactive Protein Total Protein Albumin Triglycerides Cholesterol Urine Creatinine Urine Microalbumin Vancomycin Trough Salicylates Acetaminophen 06/13/19 06/13/19 06/14/19 12:03 18:17 00:03 WBC RBC Hgb Hct MCH RDW Plt Count Seg Neuts % (Manual) Lymphocytes % (Manual) Monocytes % (Manual) Seg Neutrophils # Man Lymphocytes # (Manual) Monocytes # (Manual) D-Dimer ABG pH ABG pO2 ABG HCO3 ABG O2 Saturation ABG Base Excess ABG Hemoglobin VBG pH Oxyhemoglobin Sodium Potassium Chloride Carbon Dioxide BUN Creatinine Glucose POC Glucose 147 H 172 H 168 H Hemoglobin A1c Lactic Acid Calcium Phosphorus Magnesium Ferritin AST ALT Alkaline Phosphatase Lactate Dehydrogenase C-Reactive Protein Total Protein Albumin Triglycerides Cholesterol Urine Creatinine Urine Microalbumin Vancomycin Trough Salicylates Acetaminophen 06/14/19 05:43 WBC RBC Hgb Hct MCH RDW Plt Count Seg Neuts % (Manual) Lymphocytes % (Manual) Monocytes % (Manual) Seg Neutrophils # Man Lymphocytes # (Manual) Monocytes # (Manual) D-Dimer ABG pH ABG pO2 ABG HCO3 ABG O2 Saturation ABG Base Excess ABG Hemoglobin VBG pH Oxyhemoglobin Sodium Potassium Chloride Carbon Dioxide BUN Creatinine Glucose POC Glucose 178 H Hemoglobin A1c Lactic Acid Calcium Phosphorus Magnesium Ferritin AST ALT Alkaline Phosphatase Lactate Dehydrogenase C-Reactive Protein Total Protein Albumin Triglycerides Cholesterol Urine Creatinine Urine Microalbumin Vancomycin Trough Salicylates Acetaminophen Chest x-ray: image reviewed Allied health notes reviewed: RT
[2019-06-14 15:09] LABS: Hematocrit 49.3 % (30.3-42.9); Hemoglobin 16.2 gm/dl (10.1-14.3); Mean Corpuscular HGB Conc 33 % (30-34); Mean Corpuscular Volume 84 fl (79-97); Platelet Count 184 K/mm3 (140-440); Red Blood Count 5.86 M/mm3 (3.65-5.03); Red Cell Distribution Width 14.4 % (13.2-15.2)
[2019-06-14 15:26] LABS: BUN/Creatinine Ratio 50; Blood Urea Nitrogen 15 mg/dL (7-17); Calcium 9.7 mg/dL (8.4-10.2); Hemolysis Index 45
[2019-06-14 15:55] LABS: Anisocytosis 1+; Hypochromasia 1+; Total Cells Counted 100
[2019-06-14 17:12] LABS: ABG Base Excess 6.3 mmol/L (-2.0-3.0); ABG HCO3 30.2 mmol/L (20.0-26.0); ABG Methemoglobin 0.5 % (0.0-1.5); ABG Oxygen Saturation 94.7 % (95.0-99.0); ABG PCO2 40.7 mm Hg; ABG PH 7.488 pH Units (7.350-7.450); ABG PO2 66.1 mm Hg (80.0-90.0)
--- NOTE | 2019-06-14 17:19 | XRay Report ---
CHEST 1 VIEW INDICATION / CLINICAL INFORMATION: Pulmonary edema Aspiration. COMPARISON: 06/10/2019 FINDINGS: SUPPORT DEVICES: Endotracheal tube and NG tube have been removed. HEART / MEDIASTINUM: No significant abnormality. LUNGS / PLEURA: Low lung volumes are again seen. The bilateral lung consolidation appears unchanged. No effusions are seen. No pneumothorax. ADDITIONAL FINDINGS: No significant additional findings. IMPRESSION: 1. No significant change Signer Name: Phi Pizano MD Signed: 06/14/2019 5:15 PM Workstation Name: [id number]
[2019-06-14] MEDS ORDERED: FUROSEMIDE 20 MG/2 ML INJ IV ONE (17:30)
[2019-06-14] MEDS ORDERED: cloNIDine 0.1 MG TAB PO ONE (18:00)
[2019-06-14] MEDS: QUEtiapine 25 MG TAB PO SCH (21:24)
--- NOTE | 2019-06-14 22:28 | Progress Note ---
Assessment and Plan Diane Extubation--Doing reasonably well Transfer to med surg floor initited Assessment and plan: Mrs. Tomas is a 48-year-old female with a history of hypertension, type 2 diabetes mellitus events with altered mental status. She arrived per EMS. Last known time normal 10 PM on night prior to admission. Patient is nonverbal. History obtained from paramedics and electronic medical record. Patient had been ill with fever cough for the past several days. She recently returned back from [place]. EMS discovered patient to be altered with work of breathing. Patient is nonverbal. She was not moving her right side. She is hypoxic at 77% room air. Blood pressure was 140/97. Blood sugar was elevated fingerstick. Hx obtained from [facility] realized that patient was not speaking 4 AM. Found her later breathing really heavy. Unresponsive. When she came back from [place] last Saturday. She had high fever. Her doctor ordered test for COVID-19. Dr. Rausch her PCP informed patient that she tested negative. She went to [place] to celebrate her mother's birthday. On admission she was noted to be in DKA and started on DKA protocol. She was also intubated and on full mechanical ventilatory support. Diagnostic work-up so far EKG shows sinus tachycardia with MAT CT head no acute intracranial process CT cervical spine patchy groundglass consolidative airspace disease right mid to lower lung Mrs. Tomas presents with altered mental status hypoxia. She required mechanical ventilation for oxygenation and airway control. Initially was not moving her right side. With oxygen supplementation she began to move both of her arms. She continued to be nonverbal. She did not follow commands prior to intubation. With CT chest findings and history of fever I strongly suspect COVID 19. Although she previously tested negative there is significant support of false negative test so we will retest. survey form was filled out in the ED by the ED physician through the [facility] department of health as a person under investigation for COVID 19. Ta bell returned 1 week ago from [place] after celebrating her mother's birthday. * COVID 19 test results came back positive has been advised to forego quarantine himself. COVID 19 Induced Pneumonia Acute hypoxic respiratory failure mild on mechanical ventilation Hypernatremia-remains elevated will increase free water. Hypertension Acute metabolic encephalopathy Right upper extremity weakness now resolved Pneumonia Hypokalemia Leukocytosis Sepsis secondary to pneumonia-with hypothermia Severe metabolic acidosis DKA-resolved Diabetes mellitus with uncontrolled blood sugar Plan 06/04: Remains on full mechanical support. Patient with respiratory alkalosis no lashaun. Adjustment made to the ventilator to decrease the rate. Will replace potassium as hypokalemia still persist. Hypernatremia gradually improving will adjust free water. Patient's anion gap is finally closed will transition to sliding scale coverage with Lantus. Anticipate weaning trial today if patient is amendable to it. Oxygen at requirements per vent settings appears to be improving 06/05: Leukocytosis improving although patient still hypoxic on the ventilator. Awaiting COVID 19 testing results. In addition continue antibiotics for broad- spectrum coverage. Will adjust insulin for better blood sugar control. 06/06: We will increase free water to 300 cc every 4 hours. We will also obtain consultation from predictive maintenance technician. Otherwise continue current therapy. Also noted to have diastolic hypertension will adjust blood pressure medications. Initiated home meds. 06/07: Sodium gradually improving, will adjust free water to 350 while awaiting todays lab and predictive maintenance technician. Patient still with non purposeful movement. Will discuss with ID about possible trial drug Ivermectin. Adjust basal insulin to 40 units BID 06/08: ID and pulmonary considering trial of the new medication ivermectin as patient's inflammatory markers went back up. Sodium mildly elevated. In addition to blood sugar. Discontinued D5 water which could be leading to elevated blood sugar. Will adjust free water to 400 every 4 hours. Nephrology following 06/09: Continue supportive care, Continue Management per ID and Critical care team. 06/10 weaning in progress, on D5W for correcting the hypernatremia. Potassium supplemented 06/12/19 probable extubation tomorrow 06/13/19--Extubated today 06/14/19 For transfer to floor Track Inspecting Supervisor and infectious disease consult input noted EKG reviewed no evidence of atrial fibrillation will repeat. Replace potassium DKA protocol with insulin-will be discontinued f/u COVID test - pending Continue COVID isolation precautions per [facility] protocol S/P Plaquenil and azithromycin X 5 DAYS Obtain serial Ferritin, LDH, D-Dimer, CRP every 48h Empiric antibiotic coverage, obtain blood cultures and urine cultures and sputum cultures. Wean from vent as tolerated defer to nuclear engineering technician We will monitor EKG for any visualization of the atrial fibrillation. If persist will obtain cardiology consult. DVT and GI prophylaxis The high probability of a clinically significant, sudden or life threatening deterioration of the [pulmonary, neuro,] system(s) required my full and direct attention, intervention and personal management. The aggregate critical care time was [32] minutes. This time is in addition to time spent performing reported procedures but includes the following: [x] Data Review and interpretation [x] Patient assessment and monitoring of vital signs [x] Documentation [x] Medication orders and management Subjective Date of service: 06/14/19 Principal diagnosis: Ac hypoxemic resp failure; Bob. PNA; PUI CVOVID-19; DKA; Severe sepsis Interval history: Extubated yesterday PUI?: Yes COVID19: Positive Objective - Exam Narrative Exam: Patient Extubated CCT 32 minutes - Constitutional Vitals: Vital Signs - 12hr 06/14/19 06/14/19 06/14/19 11:00 12:00 13:00 Temperature 97.5 F L Pulse Rate 99 H 103 H 92 H Pulse Rate [ 97 H From Monitor] Respiratory 24 18 10 L Rate Blood Pressure 124/63 103/56 98/58 O2 Sat by Pulse 95 94 98 Oximetry 06/14/19 06/14/19 06/14/19 14:01 15:00 16:00 Temperature 97.8 F Pulse Rate 96 H 103 H 108 H Pulse Rate [ 112 H From Monitor] Respiratory 21 22 16 Rate Blood Pressure 84/32 138/71 147/89 O2 Sat by Pulse 93 89 88 Oximetry 06/14/19 06/14/19 06/14/19 17:00 17:37 18:00 Temperature Pulse Rate 117 H 116 H Pulse Rate [ From Monitor] Respiratory 31 H 27 H Rate Blood Pressure 151/91 129/80 O2 Sat by Pulse 94 95 96 Oximetry 06/14/19 06/14/19 06/14/19 19:00 20:00 20:14 Temperature 99.0 F Pulse Rate 110 H 108 H Pulse Rate [ 101 H From Monitor] Respiratory 28 H 22 Rate Blood Pressure 102/56 91/46 O2 Sat by Pulse 95 98 99 Oximetry 06/14/19 21:00 Temperature Pulse Rate 97 H Pulse Rate [ From Monitor] Respiratory 23 Rate Blood Pressure 85/40 O2 Sat by Pulse 98 Oximetry General appearance: Present: no acute distress, well-nourished - EENT Eyes: PERRL, EOM intact ENT: hearing intact, clear oral mucosa Ears: bilateral: normal - Neck Neck: supple, normal ROM - Respiratory Respiratory effort: normal Respiratory: bilateral: CTA - Breasts Breasts: normal - Cardiovascular Heart rate: 78 Rhythm: regular Heart Sounds: Present: S1 & S2. Absent: gallop, rub Extremities: pulses intact, No edema, normal color, Full ROM - Gastrointestinal General gastrointestinal: Present: soft, non-tender, non-distended, normal bowel sounds - Genitourinary Female genitourinary: normal - Integumentary Integumentary: clear, warm, dry - Musculoskeletal Musculoskeletal: 1, strength equal bilaterally - Neurologic Neurologic: moves all extremities - Psychiatric Psychiatric: memory intact, appropriate mood/affect, intact judgment & insight - Labs CBC & Chem 7: 06/14/19 14:44 06/14/19 14:44 Labs: Abnormal lab results 06/14/19 06/14/19 06/14/19 Range/Units 00:03 05:43 12:22 WBC (4.5-11.0) K/mm3 RBC (3.65-5.03) M/mm3 Hgb (10.1-14.3) gm/dl Hct (30.3-42.9) % Seg Neuts % (Manual) (40.0-70.0) % Lymphocytes % (Manual) (13.4-35.0) % Seg Neutrophils # Man (1.8-7.7) K/mm3 Monocytes # (Manual) (0.0-0.8) K/mm3 ABG pH (7.350-7.450) pH Units ABG pO2 (80.0-90.0) mm Hg ABG HCO3 (20.0-26.0) mmol/L ABG O2 Saturation (95.0-99.0) % ABG Base Excess (-2.0-3.0) mmol/L Oxyhemoglobin (95.0-99.0) % Potassium (3.6-5.0) mmol/L Creatinine (0.7-1.2) mg/dL Glucose (65-100) mg/dL POC Glucose 168 H 178 H 218 H (70-105) 06/14/19 06/14/19 06/14/19 Range/Units 14:44 14:44 16:35 WBC 14.0 H (4.5-11.0) K/mm3 RBC 5.86 H (3.65-5.03) M/mm3 Hgb 16.2 H D (10.1-14.3) gm/dl Hct 49.3 H D (30.3-42.9) % Seg Neuts % (Manual) 81.0 H (40.0-70.0) % Lymphocytes % (Manual) 10.0 L (13.4-35.0) % Seg Neutrophils # Man 11.3 H (1.8-7.7) K/mm3 Monocytes # (Manual) 1.0 H (0.0-0.8) K/mm3 ABG pH 7.488 H (7.350-7.450) pH Units ABG pO2 66.1 L (80.0-90.0) mm Hg ABG HCO3 30.2 H (20.0-26.0) mmol/L ABG O2 Saturation 94.7 L (95.0-99.0) % ABG Base Excess 6.3 H (-2.0-3.0) mmol/L Oxyhemoglobin 93.3 L (95.0-99.0) % Potassium 3.4 L (3.6-5.0) mmol/L Creatinine 0.3 L (0.7-1.2) mg/dL Glucose 296 H (65-100) mg/dL POC Glucose (70-105) 06/14/19 Range/Units 18:01 WBC (4.5-11.0) K/mm3 RBC (3.65-5.03) M/mm3 Hgb (10.1-14.3) gm/dl Hct (30.3-42.9) % Seg Neuts % (Manual) (40.0-70.0) % Lymphocytes % (Manual) (13.4-35.0) % Seg Neutrophils # Man (1.8-7.7) K/mm3 Monocytes # (Manual) (0.0-0.8) K/mm3 ABG pH (7.350-7.450) pH Units ABG pO2 (80.0-90.0) mm Hg ABG HCO3 (20.0-26.0) mmol/L ABG O2 Saturation (95.0-99.0) % ABG Base Excess (-2.0-3.0) mmol/L Oxyhemoglobin (95.0-99.0) % Potassium (3.6-5.0) mmol/L Creatinine (0.7-1.2) mg/dL Glucose (65-100) mg/dL POC Glucose 215 H (70-105)
[2019-06-14] MEDS ORDERED: POTASSIUM CHLORIDE ER 20 MEQ TAB PO ONE (22:31)
[2019-06-15] MEDS: INSULIN REGULAR, HUMAN 100 UNITS/1 ML SUB-Q SCH ×5 (00:30→21:54)
[2019-06-15 05:42] LABS: Hematocrit 40.3 % (30.3-42.9); Hemoglobin 12.8 gm/dl (10.1-14.3); Mean Corpuscular HGB Conc 32 % (30-34); Mean Corpuscular Volume 86 fl (79-97); Red Blood Count 4.67 M/mm3 (3.65-5.03)
[2019-06-15 05:43] LABS: Basophils % (Auto) 0.3 % (0.0-1.8); Eosinophils % (Auto) 0.1 % (0.0-4.3); Lymphocytes # (Auto) 1.7 K/mm3 (1.2-5.4); Lymphocytes % (Auto) 10.9 % (13.4-35.0); Monocytes # (Auto) 0.7 K/mm3 (0.0-0.8); Monocytes % (Auto) 4.6 % (0.0-7.3); Platelet Count 219 K/mm3 (140-440); Red Cell Distribution Width 14.8 % (13.2-15.2)
[2019-06-15 06:55] LABS: BUN/Creatinine Ratio 40; Blood Urea Nitrogen 16 mg/dL (7-17); Calcium 9.7 mg/dL (8.4-10.2); Hemolysis Index 11
[2019-06-15] MEDS: SENNOSIDES 8.6 MG TAB PO SCH ×2 (10:12→21:51)
[2019-06-15] MEDS: HEPARIN 5,000 UNIT/1 ML VIAL SUB-Q SCH ×2 (10:12→21:51)
[2019-06-15] MEDS: LOSARTAN 50 MG TAB PO SCH (10:12)
[2019-06-15] MEDS: FAMOTIDINE 20 MG TAB PO SCH ×2 (10:13→21:52)
[2019-06-15] MEDS: amLODIPine 5 MG TAB PO SCH (10:13)
--- NOTE | 2019-06-15 11:23 | Progress Note ---
Assessment and Plan Cultures: Blood culture 06/03/2019 Micrococcus 1 of 4 Urine culture 06/03/2019 no growth today Assessment: 48 year old female with history of diabetes, hypertension admitted on 06/03/2019 due to acute altered mental status and shortness of breath, recently returned back from [place]: #Severe sepsis: improved. #Bilateral pneumonia secondary to COVID-19: S/P plaquenil. Off abx. #Acute hypoxemic respiratory failure/ARDS: extubated 06/13/2019. #Acute encephalopathy: Likely due to #1 and high sodium #SHARITA: improved. #Diabetes with DKA #Hypernatremia per IMS, better #Micrococcus in blood culture: 1 of 4 likely a contaminant Recommendations: continue supportive care and isolation Mayo Medina MD, FACP [facility] ([facility] C: [phone] O: [phone] F: [phone] Subjective Date of service: 06/15/19 Principal diagnosis: Ac hypoxemic resp failure; Bob. PNA; PUI CVOVID-19; DKA; Severe sepsis Interval history: No fever. Appears stable. PUI?: Yes COVID19: Positive Objective - Exam Narrative Exam: Physical Exam (reviewed in chart due to PPE conservation) Constitutional: limited due to PPE conservation strategy Head, Ears, Nose: limited due to PPE conservation strategy Eyes: limited due to PPE conservation strategy Neck: limited due to PPE conservation strategy Oral: limited due to PPE conservation strategy Cardiovascular: limited due to PPE conservation strategy Respiratory: limited due to PPE conservation strategy GI: limited due to PPE conservation strategy Musculoskeletal: limited due to PPE conservation strategy Skin: limited due to PPE conservation strategy Hem/Lymphatic: limited due to PPE conservation strategy Psych: limited due to PPE conservation strategy Neurological: limited due to PPE conservation strategy - Constitutional Vitals: Vital Signs Temp Pulse Resp BP Pulse Ox 98.0 F 103 H 21 103/59 97 06/15/19 08:00 06/15/19 10:13 06/15/19 10:00 06/15/19 10:13 06/15/19 10:00 Temperature -Last 24 Hours Temperature 98.0 F Temperature 98.3 F Temperature 98.7 F Temperature 99.0 F Temperature 97.8 F Temperature 97.5 F - Labs CBC & Chem 7: 06/15/19 04:00 06/15/19 04:00 Labs: Abnormal lab results 06/14/19 06/14/19 06/14/19 Range/Units 12:22 14:44 14:44 WBC 14.0 H (4.5-11.0) K/mm3 RBC 5.86 H (3.65-5.03) M/mm3 Hgb 16.2 H D (10.1-14.3) gm/dl Hct 49.3 H D (30.3-42.9) % MCH (28-32) pg Lymph % (Auto) (13.4-35.0) % Seg Neutrophils % (40.0-70.0) % Seg Neuts % (Manual) 81.0 H (40.0-70.0) % Lymphocytes % (Manual) 10.0 L (13.4-35.0) % Seg Neutrophils # (1.8-7.7) K/mm3 Seg Neutrophils # Man 11.3 H (1.8-7.7) K/mm3 Monocytes # (Manual) 1.0 H (0.0-0.8) K/mm3 D-Dimer (0-234) ng/mlDDU ABG pH (7.350-7.450) pH Units ABG pO2 (80.0-90.0) mm Hg ABG HCO3 (20.0-26.0) mmol/L ABG O2 Saturation (95.0-99.0) % ABG Base Excess (-2.0-3.0) mmol/L Oxyhemoglobin (95.0-99.0) % Potassium 3.4 L (3.6-5.0) mmol/L Carbon Dioxide (22-30) mmol/L Creatinine 0.3 L (0.7-1.2) mg/dL Glucose 296 H (65-100) mg/dL POC Glucose 218 H (70-105) Ferritin (13.0-400.0) ng/mL Lactate Dehydrogenase (91-180) units/L C-Reactive Protein (0.00-1.30) mg/dL 06/14/19 06/14/19 06/15/19 Range/Units 16:35 18:01 00:34 WBC (4.5-11.0) K/mm3 RBC (3.65-5.03) M/mm3 Hgb (10.1-14.3) gm/dl Hct (30.3-42.9) % MCH (28-32) pg Lymph % (Auto) (13.4-35.0) % Seg Neutrophils % (40.0-70.0) % Seg Neuts % (Manual) (40.0-70.0) % Lymphocytes % (Manual) (13.4-35.0) % Seg Neutrophils # (1.8-7.7) K/mm3 Seg Neutrophils # Man (1.8-7.7) K/mm3 Monocytes # (Manual) (0.0-0.8) K/mm3 D-Dimer (0-234) ng/mlDDU ABG pH 7.488 H (7.350-7.450) pH Units ABG pO2 66.1 L (80.0-90.0) mm Hg ABG HCO3 30.2 H (20.0-26.0) mmol/L ABG O2 Saturation 94.7 L (95.0-99.0) % ABG Base Excess 6.3 H (-2.0-3.0) mmol/L Oxyhemoglobin 93.3 L (95.0-99.0) % Potassium (3.6-5.0) mmol/L Carbon Dioxide (22-30) mmol/L Creatinine (0.7-1.2) mg/dL Glucose (65-100) mg/dL POC Glucose 215 H 229 H (70-105) Ferritin (13.0-400.0) ng/mL Lactate Dehydrogenase (91-180) units/L C-Reactive Protein (0.00-1.30) mg/dL 06/15/19 06/15/19 06/15/19 Range/Units 04:00 04:00 04:00 WBC (4.5-11.0) K/mm3 RBC (3.65-5.03) M/mm3 Hgb (10.1-14.3) gm/dl Hct (30.3-42.9) % MCH (28-32) pg Lymph % (Auto) (13.4-35.0) % Seg Neutrophils % (40.0-70.0) % Seg Neuts % (Manual) (40.0-70.0) % Lymphocytes % (Manual) (13.4-35.0) % Seg Neutrophils # (1.8-7.7) K/mm3 Seg Neutrophils # Man (1.8-7.7) K/mm3 Monocytes # (Manual) (0.0-0.8) K/mm3 D-Dimer 836.6 H (0-234) ng/mlDDU ABG pH (7.350-7.450) pH Units ABG pO2 (80.0-90.0) mm Hg ABG HCO3 (20.0-26.0) mmol/L ABG O2 Saturation (95.0-99.0) % ABG Base Excess (-2.0-3.0) mmol/L Oxyhemoglobin (95.0-99.0) % Potassium 3.3 L (3.6-5.0) mmol/L Carbon Dioxide 31 H D (22-30) mmol/L Creatinine 0.4 L (0.7-1.2) mg/dL Glucose 199 H (65-100) mg/dL POC Glucose (70-105) Ferritin 908.8 H (13.0-400.0) ng/mL Lactate Dehydrogenase 386 H (91-180) units/L C-Reactive Protein 17.00 H (0.00-1.30) mg/dL 06/15/19 06/15/19 Range/Units 04:00 06:24 WBC 15.6 H (4.5-11.0) K/mm3 RBC (3.65-5.03) M/mm3 Hgb (10.1-14.3) gm/dl Hct (30.3-42.9) % MCH 27 L (28-32) pg Lymph % (Auto) 10.9 L (13.4-35.0) % Seg Neutrophils % 84.1 H (40.0-70.0) % Seg Neuts % (Manual) (40.0-70.0) % Lymphocytes % (Manual) (13.4-35.0) % Seg Neutrophils # 13.1 H (1.8-7.7) K/mm3 Seg Neutrophils # Man (1.8-7.7) K/mm3 Monocytes # (Manual) (0.0-0.8) K/mm3 D-Dimer (0-234) ng/mlDDU ABG pH (7.350-7.450) pH Units ABG pO2 (80.0-90.0) mm Hg ABG HCO3 (20.0-26.0) mmol/L ABG O2 Saturation (95.0-99.0) % ABG Base Excess (-2.0-3.0) mmol/L Oxyhemoglobin (95.0-99.0) % Potassium (3.6-5.0) mmol/L Carbon Dioxide (22-30) mmol/L Creatinine (0.7-1.2) mg/dL Glucose (65-100) mg/dL POC Glucose 192 H (70-105) Ferritin (13.0-400.0) ng/mL Lactate Dehydrogenase (91-180) units/L C-Reactive Protein (0.00-1.30) mg/dL
[2019-06-15] MEDS ORDERED: ALBUTEROL 8.5 GM INHALATION IH PRN (12:24)
--- NOTE | 2019-06-15 13:38 | Progress Note ---
Assessment and Plan Acute hypoxemic respiratory failure on MVS Bilateral pneumonia, possible aspiration. COVID-19 positive Diabetic ketoacidosis. Severe metabolic acidosis. Severe sepsis with acute encephalopathy and hypothermia. Acute toxic metabolic encephalopathy. Leukocytosis. Hemoconcentration. Elevated serum D-dimer. Acute kidney injury. Elevated serum transaminase. - continue HFNC - swallow evaluation - avoid BIPAP for now - use MDI's over nebulizers - continue airborne, contact and droplet isolation - continue to wean supplemental oxygen for target O2 sat's > 90% acutely - continue accuchecks resumed with glycemic control per Lantus and SSI (While critically ill target blood glucose of 140-180 mg/dL; avoid hypoglycemia) - continue aspiration precautions - continue bronchodilators with pulmonary hygiene per RT - wean per pulmonary driven protocols otherwise - continue to avoid nephrotoxins, adjust all medications fro CrCL and GFR - continue to avoid benzodiazepine's; reduce the possibility of delirium - complete antiinfectives per ID rec's - prn analgesia per pain score - Maintenance of sleep-wake cycle, avoid delirium - enteral nutritional support at goal rate as tolerated - G.I. & VTE prophylaxis withy heparin and Famotidine - PT/OT/ROM exercises - continue mobility protocols for pressure ulcer prophylaxis - Monitor hemodynamics closely - continue other care per attending / other consultants - Influenza and pneumonia vaccinations addressed per protocol - continue other care per attending / other consultants .... Re-evaluate in am & prn CONDITION: CRITICAL PROGNOSIS: GUARDED CODE STATUS: FULL CODE The high probability of a clinically significant, sudden or life-threatening deterioration of the [respiratory, cardiovascular, endocrine, renal & neurologic ] system(s) required my full and direct attention, intervention and personal management. The aggregate critical care time was [35] minutes without overlap. Time includes spent on; [x] Data Review and interpretation [x] Patient assessment and monitoring of vital signs [x] Documentation [x] Medication orders and management Subjective Date of service: 06/15/19 Principal diagnosis: Ac hypoxemic resp failure; Bob. PNA; PUI CVOVID-19; DKA; Severe sepsis Interval history: Patient is seen today for: Ac hypoxemic resp failure; Bob. pneumonia; PUI COVID- 19; DKA; Severe sepsis Seen and examined at bedside; 24hour events reviewed; nursing and respiratory care staff consulted; no adverse overnight events reported to me; resting peacefully in bed; FiO2 requirements have slowly increased; she is very weak but denies acute chest pains or palpitations; No N/V/F/C PUI?: Yes COVID19: Positive Objective Vital Signs - 12hr 06/15/19 06/15/19 06/15/19 02:00 03:00 04:00 Temperature 98.3 F Pulse Rate 95 H 97 H 97 H Pulse Rate [ 92 H From Monitor] Respiratory 21 20 23 Rate Blood Pressure 109/63 127/77 107/61 O2 Sat by Pulse 97 96 92 Oximetry 06/15/19 06/15/19 06/15/19 05:00 06:01 07:00 Temperature Pulse Rate 95 H 90 93 H Pulse Rate [ From Monitor] Respiratory 20 26 H 20 Rate Blood Pressure 108/75 145/94 115/74 O2 Sat by Pulse 96 96 96 Oximetry 06/15/19 06/15/19 06/15/19 08:00 08:54 09:00 Temperature 98.0 F Pulse Rate 95 H 98 H Pulse Rate [ 103 H From Monitor] Respiratory 32 H 19 Rate Blood Pressure 124/74 122/67 O2 Sat by Pulse 95 98 94 Oximetry 06/15/19 06/15/19 06/15/19 10:00 10:12 10:13 Temperature Pulse Rate 101 H 103 H 103 H Pulse Rate [ From Monitor] Respiratory 21 Rate Blood Pressure 103/59 103/59 103/59 O2 Sat by Pulse 97 Oximetry 06/15/19 06/15/19 11:00 12:00 Temperature 98.2 F Pulse Rate 102 H 103 H Pulse Rate [ 104 H From Monitor] Respiratory 18 28 H Rate Blood Pressure 138/84 130/74 O2 Sat by Pulse 96 91 Oximetry Constitutional: no acute distress, other (middle aged AAF, normocephalic with mildly increased respiratory effort at rest) Eyes: non-icteric ENT: oropharynx moist, other (OGT in place, ETT in palce) Neck: supple, no lymphadenopathy, no JVD Effort: mildly labored Ascultation: Bilateral: diminished breath sounds, rhonchi Percussion: Bilateral: not dull Cardiovascular: irregular rhythm, other (S1,S2, no murmurs) Gastrointestinal: normoactive bowel sounds, soft, non-tender, non-distended Integumentary: normal Extremities: no cyanosis, no edema, pulses normal, no ischemia or petechiae Neurologic: normal mental status, non-focal exam, pupils equal and round, motor strength normal and Psychiatric: mood appropriate, affect normal CBC and BMP: 06/16/19 05:16 06/16/19 05:16 ABG, PT/INR, D-dimer: ABG ABG pH 7.488 pH Units (7.350-7.450) H 06/14/19 16:35 ABG pCO2 40.7 mm Hg 06/14/19 16:35 ABG pO2 66.1 mm Hg (80.0-90.0) L 06/14/19 16:35 ABG O2 Saturation 94.7 % (95.0-99.0) L 06/14/19 16:35 PT/INR, D-dimer D-Dimer 836.6 ng/mlDDU (0-234) H 06/15/19 04:00 Abnormal lab findings: Abnormal Labs 06/03/19 06/03/19 06/03/19 10:59 11:15 11:48 WBC RBC Hgb Hct MCH RDW Plt Count Lymph % (Auto) Seg Neutrophils % Seg Neuts % (Manual) Lymphocytes % (Manual) Monocytes % (Manual) Seg Neutrophils # Seg Neutrophils # Man Lymphocytes # (Manual) Monocytes # (Manual) D-Dimer ABG pH ABG pO2 ABG HCO3 ABG O2 Saturation ABG Base Excess ABG Hemoglobin VBG pH Oxyhemoglobin Sodium Potassium Chloride Carbon Dioxide BUN Creatinine Glucose POC Glucose 372 H Hemoglobin A1c Lactic Acid Calcium Phosphorus 11.70 H Magnesium 4.40 H Ferritin AST ALT Alkaline Phosphatase Lactate Dehydrogenase C-Reactive Protein Total Protein Albumin Triglycerides Cholesterol Urine Creatinine 37.4 H Urine Microalbumin 65.1 H Vancomycin Trough Salicylates Acetaminophen 06/03/19 06/03/19 06/03/19 11:51 11:51 11:51 WBC 23.3 H RBC 6.43 H Hgb 17.7 H Hct 59.9 H* MCH RDW 17.1 H Plt Count Lymph % (Auto) Seg Neutrophils % Seg Neuts % (Manual) 71.0 H Lymphocytes % (Manual) 11.0 L Monocytes % (Manual) 8.0 H Seg Neutrophils # Seg Neutrophils # Man 16.5 H Lymphocytes # (Manual) Monocytes # (Manual) 1.9 H D-Dimer ABG pH ABG pO2 ABG HCO3 ABG O2 Saturation ABG Base Excess ABG Hemoglobin VBG pH Oxyhemoglobin Sodium Potassium Chloride Carbon Dioxide 4 L* BUN 41 H Creatinine 1.8 H Glucose 636 H* POC Glucose Hemoglobin A1c Lactic Acid 3.20 H* Calcium 10.9 H Phosphorus Magnesium Ferritin AST 43 H ALT Alkaline Phosphatase 147 H Lactate Dehydrogenase 673 H C-Reactive Protein 14.70 H Total Protein 8.9 H Albumin Triglycerides Cholesterol Urine Creatinine Urine Microalbumin Vancomycin Trough Salicylates Acetaminophen 06/03/19 06/03/19 06/03/19 11:51 11:51 11:51 WBC RBC Hgb Hct MCH RDW Plt Count Lymph % (Auto) Seg Neutrophils % Seg Neuts % (Manual) Lymphocytes % (Manual) Monocytes % (Manual) Seg Neutrophils # Seg Neutrophils # Man Lymphocytes # (Manual) Monocytes # (Manual) D-Dimer ABG pH ABG pO2 ABG HCO3 ABG O2 Saturation ABG Base Excess ABG Hemoglobin VBG pH 6.901 L* Oxyhemoglobin Sodium Potassium Chloride Carbon Dioxide BUN Creatinine Glucose POC Glucose Hemoglobin A1c Lactic Acid Calcium Phosphorus Magnesium Ferritin AST ALT Alkaline Phosphatase Lactate Dehydrogenase C-Reactive Protein Total Protein Albumin Triglycerides Cholesterol Urine Creatinine Urine Microalbumin Vancomycin Trough Salicylates < 0.3 L Acetaminophen < 5.0 L 06/03/19 06/03/19 06/03/19 11:51 11:51 12:34 WBC RBC Hgb Hct MCH RDW Plt Count Lymph % (Auto) Seg Neutrophils % Seg Neuts % (Manual) Lymphocytes % (Manual) Monocytes % (Manual) Seg Neutrophils # Seg Neutrophils # Man Lymphocytes # (Manual) Monocytes # (Manual) D-Dimer 4311.60 H ABG pH ABG pO2 ABG HCO3 ABG O2 Saturation ABG Base Excess ABG Hemoglobin VBG pH Oxyhemoglobin Sodium Potassium Chloride Carbon Dioxide BUN Creatinine Glucose POC Glucose Hemoglobin A1c Lactic Acid 5.20 H* Calcium Phosphorus Magnesium Ferritin 1037.0 H AST ALT Alkaline Phosphatase Lactate Dehydrogenase C-Reactive Protein Total Protein Albumin Triglycerides Cholesterol Urine Creatinine Urine Microalbumin Vancomycin Trough Salicylates Acetaminophen 06/03/19 06/03/19 06/03/19 14:30 16:03 17:00 WBC RBC Hgb Hct MCH RDW Plt Count Lymph % (Auto) Seg Neutrophils % Seg Neuts % (Manual) Lymphocytes % (Manual) Monocytes % (Manual) Seg Neutrophils # Seg Neutrophils # Man Lymphocytes # (Manual) Monocytes # (Manual) D-Dimer ABG pH 6.880 L* ABG pO2 489.9 H ABG HCO3 7.1 L ABG O2 Saturation 99.6 H ABG Base Excess -26.1 L ABG Hemoglobin 16.2 H VBG pH Oxyhemoglobin Sodium Potassium Chloride Carbon Dioxide BUN Creatinine Glucose POC Glucose 335 H Hemoglobin A1c 9.6 H Lactic Acid Calcium Phosphorus Magnesium Ferritin AST ALT Alkaline Phosphatase Lactate Dehydrogenase C-Reactive Protein Total Protein Albumin Triglycerides Cholesterol Urine Creatinine Urine Microalbumin Vancomycin Trough Salicylates Acetaminophen 06/03/19 06/03/19 06/03/19 18:14 18:24 19:00 WBC RBC Hgb Hct MCH RDW Plt Count Lymph % (Auto) Seg Neutrophils % Seg Neuts % (Manual) Lymphocytes % (Manual) Monocytes % (Manual) Seg Neutrophils # Seg Neutrophils # Man Lymphocytes # (Manual) Monocytes # (Manual) D-Dimer ABG pH 7.057 L* ABG pO2 97.2 H ABG HCO3 5.5 L ABG O2 Saturation ABG Base Excess -23.0 L ABG Hemoglobin 18.1 H VBG pH Oxyhemoglobin 94.4 L Sodium Potassium Chloride Carbon Dioxide BUN Creatinine Glucose POC Glucose 285 H Hemoglobin A1c Lactic Acid 3.40 H* Calcium Phosphorus Magnesium Ferritin AST ALT Alkaline Phosphatase Lactate Dehydrogenase C-Reactive Protein Total Protein Albumin Triglycerides Cholesterol Urine Creatinine Urine Microalbumin Vancomycin Trough Salicylates Acetaminophen 06/03/19 06/03/19 06/03/19 19:00 19:00 19:52 WBC RBC Hgb Hct MCH RDW Plt Count Lymph % (Auto) Seg Neutrophils % Seg Neuts % (Manual) Lymphocytes % (Manual) Monocytes % (Manual) Seg Neutrophils # Seg Neutrophils # Man Lymphocytes # (Manual) Monocytes # (Manual) D-Dimer ABG pH ABG pO2 ABG HCO3 ABG O2 Saturation ABG Base Excess ABG Hemoglobin VBG pH Oxyhemoglobin Sodium 151 H Potassium Chloride 120.8 H Carbon Dioxide 6 L* BUN 33 H Creatinine 1.4 H Glucose 339 H POC Glucose 316 H Hemoglobin A1c Lactic Acid Calcium Phosphorus Magnesium Ferritin AST 47 H ALT Alkaline Phosphatase 130 H Lactate Dehydrogenase C-Reactive Protein Total Protein Albumin 3.7 L Triglycerides 424 H Cholesterol 250 H Urine Creatinine Urine Microalbumin Vancomycin Trough Salicylates Acetaminophen 06/03/19 06/03/19 06/03/19 20:21 20:21 21:01 WBC RBC Hgb Hct MCH RDW Plt Count Lymph % (Auto) Seg Neutrophils % Seg Neuts % (Manual) Lymphocytes % (Manual) Monocytes % (Manual) Seg Neutrophils # Seg Neutrophils # Man Lymphocytes # (Manual) Monocytes # (Manual) D-Dimer ABG pH ABG pO2 ABG HCO3 ABG O2 Saturation ABG Base Excess ABG Hemoglobin VBG pH Oxyhemoglobin Sodium 153 H Potassium Chloride 121.8 H Carbon Dioxide 6 L* BUN 34 H Creatinine 1.3 H Glucose 324 H POC Glucose 245 H Hemoglobin A1c Lactic Acid 3.10 H* Calcium Phosphorus Magnesium Ferritin AST ALT Alkaline Phosphatase Lactate Dehydrogenase C-Reactive Protein Total Protein Albumin Triglycerides Cholesterol Urine Creatinine Urine Microalbumin Vancomycin Trough Salicylates Acetaminophen 06/03/19 06/03/19 06/03/19 21:25 21:32 22:42 WBC RBC Hgb Hct MCH RDW Plt Count Lymph % (Auto) Seg Neutrophils % Seg Neuts % (Manual) Lymphocytes % (Manual) Monocytes % (Manual) Seg Neutrophils # Seg Neutrophils # Man Lymphocytes # (Manual) Monocytes # (Manual) D-Dimer ABG pH 7.172 L* ABG pO2 107.2 H ABG HCO3 5.2 L ABG O2 Saturation ABG Base Excess -20.5 L ABG Hemoglobin 17.3 H VBG pH Oxyhemoglobin Sodium 155 H Potassium 2.6 L* D Chloride 130.1 H Carbon Dioxide 5 L* BUN 24 H Creatinine Glucose 212 H POC Glucose 225 H Hemoglobin A1c Lactic Acid Calcium 5.8 L* D Phosphorus Magnesium Ferritin AST ALT Alkaline Phosphatase Lactate Dehydrogenase C-Reactive Protein Total Protein Albumin Triglycerides Cholesterol Urine Creatinine Urine Microalbumin Vancomycin Trough Salicylates Acetaminophen 06/03/19 06/04/19 06/04/19 23:32 00:04 01:25 WBC RBC Hgb Hct MCH RDW Plt Count Lymph % (Auto) Seg Neutrophils % Seg Neuts % (Manual) Lymphocytes % (Manual) Monocytes % (Manual) Seg Neutrophils # Seg Neutrophils # Man Lymphocytes # (Manual) Monocytes # (Manual) D-Dimer ABG pH ABG pO2 ABG HCO3 ABG O2 Saturation ABG Base Excess ABG Hemoglobin VBG pH Oxyhemoglobin Sodium 151 H 151 H Potassium 1.5 L* D Chloride 139.0 H 124.7 H Carbon Dioxide 3 L* 9 L* BUN 31 H Creatinine 0.2 L D Glucose 117 H 241 H POC Glucose 231 H Hemoglobin A1c Lactic Acid Calcium 3.1 L* D Phosphorus Magnesium Ferritin AST ALT Alkaline Phosphatase Lactate Dehydrogenase C-Reactive Protein Total Protein Albumin Triglycerides Cholesterol Urine Creatinine Urine Microalbumin Vancomycin Trough Salicylates Acetaminophen 06/04/19 06/04/19 06/04/19 01:34 02:45 03:21 WBC RBC Hgb Hct MCH RDW Plt Count Lymph % (Auto) Seg Neutrophils % Seg Neuts % (Manual) Lymphocytes % (Manual) Monocytes % (Manual) Seg Neutrophils # Seg Neutrophils # Man Lymphocytes # (Manual) Monocytes # (Manual) D-Dimer ABG pH ABG pO2 ABG HCO3 ABG O2 Saturation ABG Base Excess ABG Hemoglobin VBG pH Oxyhemoglobin Sodium Potassium Chloride Carbon Dioxide BUN Creatinine Glucose POC Glucose 194 H 189 H 183 H Hemoglobin A1c Lactic Acid Calcium Phosphorus Magnesium Ferritin AST ALT Alkaline Phosphatase Lactate Dehydrogenase C-Reactive Protein Total Protein Albumin Triglycerides Cholesterol Urine Creatinine Urine Microalbumin Vancomycin Trough Salicylates Acetaminophen 06/04/19 06/04/19 06/04/19 04:50 05:07 06:27 WBC RBC Hgb Hct MCH RDW Plt Count Lymph % (Auto) Seg Neutrophils % Seg Neuts % (Manual) Lymphocytes % (Manual) Monocytes % (Manual) Seg Neutrophils # Seg Neutrophils # Man Lymphocytes # (Manual) Monocytes # (Manual) D-Dimer ABG pH ABG pO2 76.5 L ABG HCO3 12.9 L ABG O2 Saturation ABG Base Excess -9.0 L ABG Hemoglobin VBG pH Oxyhemoglobin Sodium Potassium Chloride Carbon Dioxide BUN Creatinine Glucose POC Glucose 200 H 164 H Hemoglobin A1c Lactic Acid Calcium Phosphorus Magnesium Ferritin AST ALT Alkaline Phosphatase Lactate Dehydrogenase C-Reactive Protein Total Protein Albumin Triglycerides Cholesterol Urine Creatinine Urine Microalbumin Vancomycin Trough Salicylates Acetaminophen 06/04/19 06/04/19 06/04/19 07:00 07:00 07:00 WBC 13.4 H RBC 5.54 H Hgb 15.3 H Hct 46.1 H D MCH RDW Plt Count Lymph % (Auto) Seg Neutrophils % Seg Neuts % (Manual) 72.0 H Lymphocytes % (Manual) 6.0 L Monocytes % (Manual) Seg Neutrophils # Seg Neutrophils # Man 9.6 H Lymphocytes # (Manual) 0.8 L Monocytes # (Manual) D-Dimer ABG pH ABG pO2 ABG HCO3 ABG O2 Saturation ABG Base Excess ABG Hemoglobin VBG pH Oxyhemoglobin Sodium 158 H 156 H Potassium 2.7 L* D 2.6 L* Chloride 124.3 H 123.5 H Carbon Dioxide 11 L 11 L BUN 25 H 26 H Creatinine Glucose 192 H 190 H POC Glucose Hemoglobin A1c Lactic Acid Calcium Phosphorus Magnesium Ferritin AST 43 H ALT Alkaline Phosphatase Lactate Dehydrogenase 590 H C-Reactive Protein 22.70 H Total Protein Albumin 2.9 L Triglycerides Cholesterol Urine Creatinine Urine Microalbumin Vancomycin Trough Salicylates Acetaminophen 06/04/19 06/04/19 06/04/19 07:00 07:00 07:14 WBC RBC Hgb Hct MCH RDW Plt Count Lymph % (Auto) Seg Neutrophils % Seg Neuts % (Manual) Lymphocytes % (Manual) Monocytes % (Manual) Seg Neutrophils # Seg Neutrophils # Man Lymphocytes # (Manual) Monocytes # (Manual) D-Dimer 2050.33 H ABG pH ABG pO2 ABG HCO3 ABG O2 Saturation ABG Base Excess ABG Hemoglobin VBG pH Oxyhemoglobin Sodium Potassium Chloride Carbon Dioxide BUN Creatinine Glucose POC Glucose 176 H Hemoglobin A1c Lactic Acid Calcium Phosphorus Magnesium Ferritin 941.3 H AST ALT Alkaline Phosphatase Lactate Dehydrogenase C-Reactive Protein Total Protein Albumin Triglycerides Cholesterol Urine Creatinine Urine Microalbumin Vancomycin Trough Salicylates Acetaminophen 06/04/19 06/04/19 06/04/19 09:55 11:38 12:19 WBC RBC Hgb Hct MCH RDW Plt Count Lymph % (Auto) Seg Neutrophils % Seg Neuts % (Manual) Lymphocytes % (Manual) Monocytes % (Manual) Seg Neutrophils # Seg Neutrophils # Man Lymphocytes # (Manual) Monocytes # (Manual) D-Dimer ABG pH ABG pO2 ABG HCO3 ABG O2 Saturation ABG Base Excess ABG Hemoglobin VBG pH Oxyhemoglobin Sodium Potassium Chloride Carbon Dioxide BUN Creatinine Glucose POC Glucose 184 H 145 H 144 H Hemoglobin A1c Lactic Acid Calcium Phosphorus Magnesium Ferritin AST ALT Alkaline Phosphatase Lactate Dehydrogenase C-Reactive Protein Total Protein Albumin Triglycerides Cholesterol Urine Creatinine Urine Microalbumin Vancomycin Trough Salicylates Acetaminophen 06/04/19 06/04/19 06/04/19 13:35 14:29 15:06 WBC RBC Hgb Hct MCH RDW Plt Count Lymph % (Auto) Seg Neutrophils % Seg Neuts % (Manual) Lymphocytes % (Manual) Monocytes % (Manual) Seg Neutrophils # Seg Neutrophils # Man Lymphocytes # (Manual) Monocytes # (Manual) D-Dimer ABG pH ABG pO2 ABG HCO3 ABG O2 Saturation ABG Base Excess ABG Hemoglobin VBG pH Oxyhemoglobin Sodium 157 H Potassium 2.4 L* Chloride 121.4 H Carbon Dioxide 20 L D BUN 21 H Creatinine Glucose 176 H POC Glucose 151 H 142 H Hemoglobin A1c Lactic Acid Calcium Phosphorus Magnesium Ferritin AST ALT Alkaline Phosphatase Lactate Dehydrogenase C-Reactive Protein Total Protein Albumin Triglycerides Cholesterol Urine Creatinine Urine Microalbumin Vancomycin Trough Salicylates Acetaminophen 06/04/19 06/04/19 06/04/19 17:14 17:51 21:45 WBC RBC Hgb Hct MCH RDW Plt Count Lymph % (Auto) Seg Neutrophils % Seg Neuts % (Manual) Lymphocytes % (Manual) Monocytes % (Manual) Seg Neutrophils # Seg Neutrophils # Man Lymphocytes # (Manual) Monocytes # (Manual) D-Dimer ABG pH ABG pO2 ABG HCO3 ABG O2 Saturation ABG Base Excess ABG Hemoglobin VBG pH Oxyhemoglobin Sodium Potassium Chloride Carbon Dioxide BUN Creatinine Glucose POC Glucose 200 H 159 H 143 H Hemoglobin A1c Lactic Acid Calcium Phosphorus Magnesium Ferritin AST ALT Alkaline Phosphatase Lactate Dehydrogenase C-Reactive Protein Total Protein Albumin Triglycerides Cholesterol Urine Creatinine Urine Microalbumin Vancomycin Trough Salicylates Acetaminophen 06/04/19 06/04/19 06/04/19 22:20 22:21 23:27 WBC RBC Hgb Hct MCH RDW Plt Count Lymph % (Auto) Seg Neutrophils % Seg Neuts % (Manual) Lymphocytes % (Manual) Monocytes % (Manual) Seg Neutrophils # Seg Neutrophils # Man Lymphocytes # (Manual) Monocytes # (Manual) D-Dimer ABG pH 7.572 H ABG pO2 58.5 L ABG HCO3 ABG O2 Saturation ABG Base Excess 3.5 H ABG Hemoglobin 20.0 H VBG pH Oxyhemoglobin 94.6 L Sodium Potassium Chloride Carbon Dioxide BUN Creatinine Glucose POC Glucose 154 H 147 H Hemoglobin A1c Lactic Acid Calcium Phosphorus Magnesium Ferritin AST ALT Alkaline Phosphatase Lactate Dehydrogenase C-Reactive Protein Total Protein Albumin Triglycerides Cholesterol Urine Creatinine Urine Microalbumin Vancomycin Trough Salicylates Acetaminophen 06/05/19 06/05/19 06/05/19 00:27 01:16 02:20 WBC RBC Hgb Hct MCH RDW Plt Count Lymph % (Auto) Seg Neutrophils % Seg Neuts % (Manual) Lymphocytes % (Manual) Monocytes % (Manual) Seg Neutrophils # Seg Neutrophils # Man Lymphocytes # (Manual) Monocytes # (Manual) D-Dimer ABG pH ABG pO2 ABG HCO3 ABG O2 Saturation ABG Base Excess ABG Hemoglobin VBG pH Oxyhemoglobin Sodium Potassium Chloride Carbon Dioxide BUN Creatinine Glucose POC Glucose 124 H 126 H 156 H Hemoglobin A1c Lactic Acid Calcium Phosphorus Magnesium Ferritin AST ALT Alkaline Phosphatase Lactate Dehydrogenase C-Reactive Protein Total Protein Albumin Triglycerides Cholesterol Urine Creatinine Urine Microalbumin Vancomycin Trough Salicylates Acetaminophen 06/05/19 06/05/19 06/05/19 03:44 03:59 04:52 WBC RBC Hgb Hct MCH RDW Plt Count Lymph % (Auto) Seg Neutrophils % Seg Neuts % (Manual) Lymphocytes % (Manual) Monocytes % (Manual) Seg Neutrophils # Seg Neutrophils # Man Lymphocytes # (Manual) Monocytes # (Manual) D-Dimer ABG pH ABG pO2 ABG HCO3 ABG O2 Saturation ABG Base Excess ABG Hemoglobin VBG pH Oxyhemoglobin Sodium 155 H Potassium 3.0 L D Chloride 114.7 H Carbon Dioxide BUN Creatinine 0.6 L Glucose 136 H POC Glucose 143 H 141 H Hemoglobin A1c Lactic Acid Calcium Phosphorus Magnesium Ferritin AST ALT Alkaline Phosphatase Lactate Dehydrogenase C-Reactive Protein Total Protein Albumin Triglycerides Cholesterol Urine Creatinine Urine Microalbumin Vancomycin Trough Salicylates Acetaminophen 06/05/19 06/05/19 06/05/19 05:00 05:54 07:01 WBC RBC Hgb Hct MCH RDW Plt Count Lymph % (Auto) Seg Neutrophils % Seg Neuts % (Manual) Lymphocytes % (Manual) Monocytes % (Manual) Seg Neutrophils # Seg Neutrophils # Man Lymphocytes # (Manual) Monocytes # (Manual) D-Dimer ABG pH 7.621 H* ABG pO2 54.3 L ABG HCO3 29.8 H ABG O2 Saturation ABG Base Excess 8.8 H ABG Hemoglobin VBG pH Oxyhemoglobin Sodium Potassium Chloride Carbon Dioxide BUN Creatinine Glucose POC Glucose 155 H 145 H Hemoglobin A1c Lactic Acid Calcium Phosphorus Magnesium Ferritin AST ALT Alkaline Phosphatase Lactate Dehydrogenase C-Reactive Protein Total Protein Albumin Triglycerides Cholesterol Urine Creatinine Urine Microalbumin Vancomycin Trough Salicylates Acetaminophen 06/05/19 06/05/19 06/05/19 12:13 18:23 21:00 WBC RBC Hgb Hct MCH RDW Plt Count Lymph % (Auto) Seg Neutrophils % Seg Neuts % (Manual) Lymphocytes % (Manual) Monocytes % (Manual) Seg Neutrophils # Seg Neutrophils # Man Lymphocytes # (Manual) Monocytes # (Manual) D-Dimer ABG pH ABG pO2 ABG HCO3 ABG O2 Saturation ABG Base Excess ABG Hemoglobin VBG pH Oxyhemoglobin Sodium Potassium Chloride Carbon Dioxide BUN Creatinine Glucose POC Glucose 202 H 257 H Hemoglobin A1c Lactic Acid Calcium Phosphorus Magnesium Ferritin AST ALT Alkaline Phosphatase Lactate Dehydrogenase C-Reactive Protein Total Protein Albumin Triglycerides Cholesterol Urine Creatinine Urine Microalbumin Vancomycin Trough 4.2 L Salicylates Acetaminophen 06/05/19 06/06/19 06/06/19 23:55 04:16 04:37 WBC RBC Hgb Hct MCH RDW Plt Count Lymph % (Auto) Seg Neutrophils % Seg Neuts % (Manual) Lymphocytes % (Manual) Monocytes % (Manual) Seg Neutrophils # Seg Neutrophils # Man Lymphocytes # (Manual) Monocytes # (Manual) D-Dimer 1279.22 H ABG pH 7.600 H ABG pO2 62.4 L ABG HCO3 28.0 H ABG O2 Saturation ABG Base Excess 6.6 H ABG Hemoglobin 10.4 L VBG pH Oxyhemoglobin Sodium Potassium Chloride Carbon Dioxide BUN Creatinine Glucose POC Glucose 267 H Hemoglobin A1c Lactic Acid Calcium Phosphorus Magnesium Ferritin AST ALT Alkaline Phosphatase Lactate Dehydrogenase C-Reactive Protein Total Protein Albumin Triglycerides Cholesterol Urine Creatinine Urine Microalbumin Vancomycin Trough Salicylates Acetaminophen 06/06/19 06/06/19 06/06/19 04:37 04:37 04:37 WBC 12.2 H RBC 5.10 H Hgb Hct MCH 27 L RDW Plt Count Lymph % (Auto) Seg Neutrophils % Seg Neuts % (Manual) Lymphocytes % (Manual) Monocytes % (Manual) Seg Neutrophils # Seg Neutrophils # Man Lymphocytes # (Manual) Monocytes # (Manual) D-Dimer ABG pH ABG pO2 ABG HCO3 ABG O2 Saturation ABG Base Excess ABG Hemoglobin VBG pH Oxyhemoglobin Sodium 156 H Potassium 3.4 L Chloride 112.9 H Carbon Dioxide BUN 21 H Creatinine 0.6 L Glucose 332 H POC Glucose Hemoglobin A1c Lactic Acid Calcium Phosphorus Magnesium Ferritin 1649.0 H AST ALT Alkaline Phosphatase Lactate Dehydrogenase 578 H C-Reactive Protein 22.10 H Total Protein Albumin Triglycerides Cholesterol Urine Creatinine Urine Microalbumin Vancomycin Trough Salicylates Acetaminophen 06/06/19 06/06/19 06/06/19 05:45 11:55 12:21 WBC RBC Hgb Hct MCH RDW Plt Count Lymph % (Auto) Seg Neutrophils % Seg Neuts % (Manual) Lymphocytes % (Manual) Monocytes % (Manual) Seg Neutrophils # Seg Neutrophils # Man Lymphocytes # (Manual) Monocytes # (Manual) D-Dimer ABG pH 7.511 H ABG pO2 123.0 H ABG HCO3 29.7 H ABG O2 Saturation ABG Base Excess 6.4 H ABG Hemoglobin VBG pH Oxyhemoglobin Sodium Potassium Chloride Carbon Dioxide BUN Creatinine Glucose POC Glucose 303 H 281 H Hemoglobin A1c Lactic Acid Calcium Phosphorus Magnesium Ferritin AST ALT Alkaline Phosphatase Lactate Dehydrogenase C-Reactive Protein Total Protein Albumin Triglycerides Cholesterol Urine Creatinine Urine Microalbumin Vancomycin Trough Salicylates Acetaminophen 06/06/19 06/07/19 06/07/19 17:06 00:25 04:39 WBC RBC Hgb Hct MCH RDW Plt Count Lymph % (Auto) Seg Neutrophils % Seg Neuts % (Manual) Lymphocytes % (Manual) Monocytes % (Manual) Seg Neutrophils # Seg Neutrophils # Man Lymphocytes # (Manual) Monocytes # (Manual) D-Dimer ABG pH 7.507 H ABG pO2 46.4 L ABG HCO3 32.6 H ABG O2 Saturation 90.6 L ABG Base Excess 8.6 H ABG Hemoglobin VBG pH Oxyhemoglobin 89.2 L Sodium Potassium Chloride Carbon Dioxide BUN Creatinine Glucose POC Glucose 251 H 225 H Hemoglobin A1c Lactic Acid Calcium Phosphorus Magnesium Ferritin AST ALT Alkaline Phosphatase Lactate Dehydrogenase C-Reactive Protein Total Protein Albumin Triglycerides Cholesterol Urine Creatinine Urine Microalbumin Vancomycin Trough Salicylates Acetaminophen 06/07/19 06/07/19 06/07/19 04:43 04:43 04:43 WBC 13.6 H RBC 5.14 H Hgb Hct 43.4 H MCH 27 L RDW Plt Count Lymph % (Auto) Seg Neutrophils % Seg Neuts % (Manual) Lymphocytes % (Manual) Monocytes % (Manual) Seg Neutrophils # Seg Neutrophils # Man Lymphocytes # (Manual) Monocytes # (Manual) D-Dimer ABG pH ABG pO2 ABG HCO3 ABG O2 Saturation ABG Base Excess ABG Hemoglobin VBG pH Oxyhemoglobin Sodium 166 H* D Potassium 3.0 L Chloride 122.9 H Carbon Dioxide BUN 27 H Creatinine 0.5 L Glucose 265 H POC Glucose Hemoglobin A1c Lactic Acid Calcium Phosphorus Magnesium Ferritin AST ALT Alkaline Phosphatase Lactate Dehydrogenase C-Reactive Protein Total Protein Albumin Triglycerides 373 H Cholesterol Urine Creatinine Urine Microalbumin Vancomycin Trough Salicylates Acetaminophen 06/07/19 06/07/19 06/07/19 10:12 11:39 15:31 WBC RBC Hgb Hct MCH RDW Plt Count Lymph % (Auto) Seg Neutrophils % Seg Neuts % (Manual) Lymphocytes % (Manual) Monocytes % (Manual) Seg Neutrophils # Seg Neutrophils # Man Lymphocytes # (Manual) Monocytes # (Manual) D-Dimer ABG pH ABG pO2 ABG HCO3 ABG O2 Saturation ABG Base Excess ABG Hemoglobin VBG pH Oxyhemoglobin Sodium 163 H* 161 H* Potassium 3.1 L Chloride 117.7 H Carbon Dioxide BUN 22 H Creatinine 0.5 L Glucose 274 H POC Glucose 218 H Hemoglobin A1c Lactic Acid Calcium Phosphorus Magnesium Ferritin AST ALT Alkaline Phosphatase Lactate Dehydrogenase C-Reactive Protein Total Protein Albumin Triglycerides Cholesterol Urine Creatinine Urine Microalbumin Vancomycin Trough Salicylates Acetaminophen 06/07/19 06/08/19 06/08/19 17:16 00:04 03:45 WBC RBC Hgb Hct MCH RDW Plt Count Lymph % (Auto) Seg Neutrophils % Seg Neuts % (Manual) Lymphocytes % (Manual) Monocytes % (Manual) Seg Neutrophils # Seg Neutrophils # Man Lymphocytes # (Manual) Monocytes # (Manual) D-Dimer ABG pH 7.504 H ABG pO2 54.2 L ABG HCO3 32.3 H ABG O2 Saturation 93.7 L ABG Base Excess 8.4 H ABG Hemoglobin VBG pH Oxyhemoglobin 92.2 L Sodium Potassium Chloride Carbon Dioxide BUN Creatinine Glucose POC Glucose 284 H 283 H Hemoglobin A1c Lactic Acid Calcium Phosphorus Magnesium Ferritin AST ALT Alkaline Phosphatase Lactate Dehydrogenase C-Reactive Protein Total Protein Albumin Triglycerides Cholesterol Urine Creatinine Urine Microalbumin Vancomycin Trough Salicylates Acetaminophen 06/08/19 06/08/19 06/08/19 05:02 09:33 09:33 WBC RBC Hgb Hct MCH RDW Plt Count Lymph % (Auto) Seg Neutrophils % Seg Neuts % (Manual) Lymphocytes % (Manual) Monocytes % (Manual) Seg Neutrophils # Seg Neutrophils # Man Lymphocytes # (Manual) Monocytes # (Manual) D-Dimer 1319.18 H ABG pH ABG pO2 ABG HCO3 ABG O2 Saturation ABG Base Excess ABG Hemoglobin VBG pH Oxyhemoglobin Sodium Potassium Chloride Carbon Dioxide BUN Creatinine Glucose POC Glucose 291 H Hemoglobin A1c Lactic Acid Calcium Phosphorus Magnesium Ferritin 1274.0 H AST ALT Alkaline Phosphatase Lactate Dehydrogenase C-Reactive Protein Total Protein Albumin Triglycerides Cholesterol Urine Creatinine Urine Microalbumin Vancomycin Trough Salicylates Acetaminophen 06/08/19 06/08/19 06/08/19 09:33 09:33 17:46 WBC 16.0 H RBC Hgb Hct MCH 27 L RDW Plt Count Lymph % (Auto) Seg Neutrophils % Seg Neuts % (Manual) Lymphocytes % (Manual) Monocytes % (Manual) Seg Neutrophils # Seg Neutrophils # Man Lymphocytes # (Manual) Monocytes # (Manual) D-Dimer ABG pH ABG pO2 ABG HCO3 ABG O2 Saturation ABG Base Excess ABG Hemoglobin VBG pH Oxyhemoglobin Sodium 157 H Potassium 3.1 L Chloride 116.7 H Carbon Dioxide BUN 24 H Creatinine 0.5 L Glucose 351 H POC Glucose 309 H Hemoglobin A1c Lactic Acid Calcium Phosphorus 2.20 L Magnesium 2.60 H Ferritin AST ALT Alkaline Phosphatase 131 H Lactate Dehydrogenase 449 H C-Reactive Protein 9.70 H Total Protein 6.1 L Albumin 2.1 L Triglycerides Cholesterol Urine Creatinine Urine Microalbumin Vancomycin Trough Salicylates Acetaminophen 06/08/19 06/08/19 06/09/19 21:55 23:46 04:18 WBC RBC Hgb Hct MCH RDW Plt Count Lymph % (Auto) Seg Neutrophils % Seg Neuts % (Manual) Lymphocytes % (Manual) Monocytes % (Manual) Seg Neutrophils # Seg Neutrophils # Man Lymphocytes # (Manual) Monocytes # (Manual) D-Dimer ABG pH 7.480 H ABG pO2 70.9 L ABG HCO3 32.9 H ABG O2 Saturation ABG Base Excess 8.4 H ABG Hemoglobin 10.3 L VBG pH Oxyhemoglobin 94.8 L Sodium 151 H Potassium 3.3 L Chloride 112.7 H Carbon Dioxide 31 H BUN 24 H Creatinine 0.5 L Glucose 321 H POC Glucose 331 H Hemoglobin A1c Lactic Acid Calcium Phosphorus Magnesium Ferritin AST ALT Alkaline Phosphatase Lactate Dehydrogenase C-Reactive Protein Total Protein Albumin Triglycerides Cholesterol Urine Creatinine Urine Microalbumin Vancomycin Trough Salicylates Acetaminophen 06/09/19 06/09/19 06/09/19 05:35 07:34 07:34 WBC 14.2 H RBC Hgb Hct MCH 27 L RDW Plt Count Lymph % (Auto) Seg Neutrophils % Seg Neuts % (Manual) Lymphocytes % (Manual) Monocytes % (Manual) Seg Neutrophils # Seg Neutrophils # Man Lymphocytes # (Manual) Monocytes # (Manual) D-Dimer ABG pH ABG pO2 ABG HCO3 ABG O2 Saturation ABG Base Excess ABG Hemoglobin VBG pH Oxyhemoglobin Sodium 153 H Potassium 3.0 L Chloride 113.6 H Carbon Dioxide BUN 26 H Creatinine 0.5 L Glucose 306 H POC Glucose 264 H Hemoglobin A1c Lactic Acid Calcium Phosphorus Magnesium Ferritin AST ALT Alkaline Phosphatase Lactate Dehydrogenase 411 H C-Reactive Protein 6.00 H Total Protein Albumin Triglycerides 304 H Cholesterol Urine Creatinine Urine Microalbumin Vancomycin Trough Salicylates Acetaminophen 06/09/19 06/09/19 06/09/19 07:34 07:34 18:29 WBC RBC Hgb Hct MCH RDW Plt Count Lymph % (Auto) Seg Neutrophils % Seg Neuts % (Manual) Lymphocytes % (Manual) Monocytes % (Manual) Seg Neutrophils # Seg Neutrophils # Man Lymphocytes # (Manual) Monocytes # (Manual) D-Dimer 991.99 H ABG pH ABG pO2 ABG HCO3 ABG O2 Saturation ABG Base Excess ABG Hemoglobin VBG pH Oxyhemoglobin Sodium Potassium Chloride Carbon Dioxide BUN Creatinine Glucose POC Glucose 226 H Hemoglobin A1c Lactic Acid Calcium Phosphorus Magnesium Ferritin 1078.0 H AST ALT Alkaline Phosphatase Lactate Dehydrogenase C-Reactive Protein Total Protein Albumin Triglycerides Cholesterol Urine Creatinine Urine Microalbumin Vancomycin Trough Salicylates Acetaminophen 06/09/19 06/09/19 06/10/19 19:22 23:43 04:05 WBC RBC Hgb Hct MCH RDW Plt Count Lymph % (Auto) Seg Neutrophils % Seg Neuts % (Manual) Lymphocytes % (Manual) Monocytes % (Manual) Seg Neutrophils # Seg Neutrophils # Man Lymphocytes # (Manual) Monocytes # (Manual) D-Dimer ABG pH 7.472 H ABG pO2 63.0 L ABG HCO3 31.3 H ABG O2 Saturation 94.5 L ABG Base Excess 6.9 H ABG Hemoglobin VBG pH Oxyhemoglobin 93.0 L Sodium Potassium Chloride 110.1 H Carbon Dioxide BUN 20 H Creatinine 0.4 L Glucose 237 H POC Glucose 177 H Hemoglobin A1c Lactic Acid Calcium Phosphorus Magnesium Ferritin AST ALT Alkaline Phosphatase Lactate Dehydrogenase C-Reactive Protein Total Protein Albumin Triglycerides Cholesterol Urine Creatinine Urine Microalbumin Vancomycin Trough Salicylates Acetaminophen 06/10/19 06/10/19 06/10/19 06:28 12:30 18:08 WBC RBC Hgb Hct MCH RDW Plt Count Lymph % (Auto) Seg Neutrophils % Seg Neuts % (Manual) Lymphocytes % (Manual) Monocytes % (Manual) Seg Neutrophils # Seg Neutrophils # Man Lymphocytes # (Manual) Monocytes # (Manual) D-Dimer ABG pH ABG pO2 ABG HCO3 ABG O2 Saturation ABG Base Excess ABG Hemoglobin VBG pH Oxyhemoglobin Sodium Potassium Chloride Carbon Dioxide BUN Creatinine Glucose POC Glucose 172 H 166 H 172 H Hemoglobin A1c Lactic Acid Calcium Phosphorus Magnesium Ferritin AST ALT Alkaline Phosphatase Lactate Dehydrogenase C-Reactive Protein Total Protein Albumin Triglycerides Cholesterol Urine Creatinine Urine Microalbumin Vancomycin Trough Salicylates Acetaminophen 06/10/19 06/10/19 06/10/19 23:53 Unknown Unknown WBC 13.7 H RBC Hgb Hct MCH RDW Plt Count 84 L Lymph % (Auto) Seg Neutrophils % Seg Neuts % (Manual) Lymphocytes % (Manual) Monocytes % (Manual) Seg Neutrophils # Seg Neutrophils # Man Lymphocytes # (Manual) Monocytes # (Manual) D-Dimer ABG pH ABG pO2 ABG HCO3 ABG O2 Saturation ABG Base Excess ABG Hemoglobin VBG pH Oxyhemoglobin Sodium 148 H Potassium 3.3 L Chloride 111.5 H Carbon Dioxide BUN 20 H Creatinine 0.4 L Glucose 185 H POC Glucose 186 H Hemoglobin A1c Lactic Acid Calcium Phosphorus Magnesium Ferritin AST ALT Alkaline Phosphatase Lactate Dehydrogenase C-Reactive Protein Total Protein Albumin Triglycerides Cholesterol Urine Creatinine Urine Microalbumin Vancomycin Trough Salicylates Acetaminophen 06/11/19 06/11/19 06/11/19 04:31 04:31 04:31 WBC RBC Hgb Hct MCH RDW Plt Count Lymph % (Auto) Seg Neutrophils % Seg Neuts % (Manual) Lymphocytes % (Manual) Monocytes % (Manual) Seg Neutrophils # Seg Neutrophils # Man Lymphocytes # (Manual) Monocytes # (Manual) D-Dimer 1206.09 H ABG pH ABG pO2 ABG HCO3 ABG O2 Saturation ABG Base Excess ABG Hemoglobin VBG pH Oxyhemoglobin Sodium 146 H Potassium 3.3 L Chloride 109.4 H Carbon Dioxide BUN Creatinine 0.5 L Glucose 186 H POC Glucose Hemoglobin A1c Lactic Acid Calcium Phosphorus Magnesium Ferritin 905.9 H AST ALT Alkaline Phosphatase Lactate Dehydrogenase 417 H C-Reactive Protein 3.30 H Total Protein Albumin Triglycerides Cholesterol Urine Creatinine Urine Microalbumin Vancomycin Trough Salicylates Acetaminophen 06/11/19 06/11/19 06/11/19 04:31 05:35 11:41 WBC 17.0 H RBC Hgb Hct MCH 27 L RDW Plt Count Lymph % (Auto) Seg Neutrophils % Seg Neuts % (Manual) Lymphocytes % (Manual) Monocytes % (Manual) Seg Neutrophils # Seg Neutrophils # Man Lymphocytes # (Manual) Monocytes # (Manual) D-Dimer ABG pH ABG pO2 ABG HCO3 ABG O2 Saturation ABG Base Excess ABG Hemoglobin VBG pH Oxyhemoglobin Sodium Potassium Chloride Carbon Dioxide BUN Creatinine Glucose POC Glucose 151 H 209 H Hemoglobin A1c Lactic Acid Calcium Phosphorus Magnesium Ferritin AST ALT Alkaline Phosphatase Lactate Dehydrogenase C-Reactive Protein Total Protein Albumin Triglycerides Cholesterol Urine Creatinine Urine Microalbumin Vancomycin Trough Salicylates Acetaminophen 06/11/19 06/11/19 06/12/19 17:27 23:52 03:58 WBC 14.9 H RBC Hgb Hct MCH RDW Plt Count Lymph % (Auto) Seg Neutrophils % Seg Neuts % (Manual) 72.0 H Lymphocytes % (Manual) 13.0 L Monocytes % (Manual) 13.0 H Seg Neutrophils # Seg Neutrophils # Man 10.7 H Lymphocytes # (Manual) Monocytes # (Manual) 1.9 H D-Dimer ABG pH ABG pO2 ABG HCO3 ABG O2 Saturation ABG Base Excess ABG Hemoglobin VBG pH Oxyhemoglobin Sodium Potassium Chloride Carbon Dioxide BUN Creatinine Glucose POC Glucose 181 H 223 H Hemoglobin A1c Lactic Acid Calcium Phosphorus Magnesium Ferritin AST ALT Alkaline Phosphatase Lactate Dehydrogenase C-Reactive Protein Total Protein Albumin Triglycerides Cholesterol Urine Creatinine Urine Microalbumin Vancomycin Trough Salicylates Acetaminophen 06/12/19 06/12/19 06/12/19 03:58 04:44 10:30 WBC RBC Hgb Hct MCH RDW Plt Count Lymph % (Auto) Seg Neutrophils % Seg Neuts % (Manual) Lymphocytes % (Manual) Monocytes % (Manual) Seg Neutrophils # Seg Neutrophils # Man Lymphocytes # (Manual) Monocytes # (Manual) D-Dimer ABG pH 7.456 H ABG pO2 ABG HCO3 32.7 H ABG O2 Saturation ABG Base Excess 7.7 H ABG Hemoglobin VBG pH Oxyhemoglobin Sodium Potassium 3.4 L Chloride Carbon Dioxide BUN Creatinine 0.4 L Glucose 242 H POC Glucose 203 H Hemoglobin A1c Lactic Acid Calcium Phosphorus Magnesium Ferritin AST 103 H ALT 101 H Alkaline Phosphatase Lactate Dehydrogenase C-Reactive Protein Total Protein 5.9 L Albumin 2.3 L Triglycerides Cholesterol Urine Creatinine Urine Microalbumin Vancomycin Trough Salicylates Acetaminophen 06/12/19 06/13/19 06/13/19 12:01 00:03 02:51 WBC RBC Hgb Hct MCH RDW Plt Count Lymph % (Auto) Seg Neutrophils % Seg Neuts % (Manual) Lymphocytes % (Manual) Monocytes % (Manual) Seg Neutrophils # Seg Neutrophils # Man Lymphocytes # (Manual) Monocytes # (Manual) D-Dimer ABG pH ABG pO2 ABG HCO3 ABG O2 Saturation ABG Base Excess ABG Hemoglobin VBG pH Oxyhemoglobin Sodium Potassium Chloride Carbon Dioxide BUN Creatinine Glucose POC Glucose 178 H 127 H Hemoglobin A1c Lactic Acid Calcium Phosphorus Magnesium Ferritin AST ALT Alkaline Phosphatase Lactate Dehydrogenase 807 H C-Reactive Protein 3.40 H Total Protein Albumin Triglycerides Cholesterol Urine Creatinine Urine Microalbumin Vancomycin Trough Salicylates Acetaminophen 06/13/19 06/13/19 06/13/19 05:17 09:23 09:23 WBC RBC Hgb Hct MCH RDW Plt Count Lymph % (Auto) Seg Neutrophils % Seg Neuts % (Manual) Lymphocytes % (Manual) Monocytes % (Manual) Seg Neutrophils # Seg Neutrophils # Man Lymphocytes # (Manual) Monocytes # (Manual) D-Dimer 1401.68 H ABG pH ABG pO2 ABG HCO3 ABG O2 Saturation ABG Base Excess ABG Hemoglobin VBG pH Oxyhemoglobin Sodium Potassium Chloride Carbon Dioxide BUN Creatinine Glucose POC Glucose 161 H Hemoglobin A1c Lactic Acid Calcium Phosphorus Magnesium Ferritin 1942.0 H AST ALT Alkaline Phosphatase Lactate Dehydrogenase C-Reactive Protein Total Protein Albumin Triglycerides Cholesterol Urine Creatinine Urine Microalbumin Vancomycin Trough Salicylates Acetaminophen 06/13/19 06/13/19 06/14/19 12:03 18:17 00:03 WBC RBC Hgb Hct MCH RDW Plt Count Lymph % (Auto) Seg Neutrophils % Seg Neuts % (Manual) Lymphocytes % (Manual) Monocytes % (Manual) Seg Neutrophils # Seg Neutrophils # Man Lymphocytes # (Manual) Monocytes # (Manual) D-Dimer ABG pH ABG pO2 ABG HCO3 ABG O2 Saturation ABG Base Excess ABG Hemoglobin VBG pH Oxyhemoglobin Sodium Potassium Chloride Carbon Dioxide BUN Creatinine Glucose POC Glucose 147 H 172 H 168 H Hemoglobin A1c Lactic Acid Calcium Phosphorus Magnesium Ferritin AST ALT Alkaline Phosphatase Lactate Dehydrogenase C-Reactive Protein Total Protein Albumin Triglycerides Cholesterol Urine Creatinine Urine Microalbumin Vancomycin Trough Salicylates Acetaminophen 06/14/19 06/14/19 06/14/19 05:43 12:22 14:44 WBC 14.0 H RBC 5.86 H Hgb 16.2 H D Hct 49.3 H D MCH RDW Plt Count Lymph % (Auto) Seg Neutrophils % Seg Neuts % (Manual) 81.0 H Lymphocytes % (Manual) 10.0 L Monocytes % (Manual) Seg Neutrophils # Seg Neutrophils # Man 11.3 H Lymphocytes # (Manual) Monocytes # (Manual) 1.0 H D-Dimer ABG pH ABG pO2 ABG HCO3 ABG O2 Saturation ABG Base Excess ABG Hemoglobin VBG pH Oxyhemoglobin Sodium Potassium Chloride Carbon Dioxide BUN Creatinine Glucose POC Glucose 178 H 218 H Hemoglobin A1c Lactic Acid Calcium Phosphorus Magnesium Ferritin AST ALT Alkaline Phosphatase Lactate Dehydrogenase C-Reactive Protein Total Protein Albumin Triglycerides Cholesterol Urine Creatinine Urine Microalbumin Vancomycin Trough Salicylates Acetaminophen 06/14/19 06/14/19 06/14/19 14:44 16:35 18:01 WBC RBC Hgb Hct MCH RDW Plt Count Lymph % (Auto) Seg Neutrophils % Seg Neuts % (Manual) Lymphocytes % (Manual) Monocytes % (Manual) Seg Neutrophils # Seg Neutrophils # Man Lymphocytes # (Manual) Monocytes # (Manual) D-Dimer ABG pH 7.488 H ABG pO2 66.1 L ABG HCO3 30.2 H ABG O2 Saturation 94.7 L ABG Base Excess 6.3 H ABG Hemoglobin VBG pH Oxyhemoglobin 93.3 L Sodium Potassium 3.4 L Chloride Carbon Dioxide BUN Creatinine 0.3 L Glucose 296 H POC Glucose 215 H Hemoglobin A1c Lactic Acid Calcium Phosphorus Magnesium Ferritin AST ALT Alkaline Phosphatase Lactate Dehydrogenase C-Reactive Protein Total Protein Albumin Triglycerides Cholesterol Urine Creatinine Urine Microalbumin Vancomycin Trough Salicylates Acetaminophen 06/15/19 06/15/19 06/15/19 00:34 04:00 04:00 WBC RBC Hgb Hct MCH RDW Plt Count Lymph % (Auto) Seg Neutrophils % Seg Neuts % (Manual) Lymphocytes % (Manual) Monocytes % (Manual) Seg Neutrophils # Seg Neutrophils # Man Lymphocytes # (Manual) Monocytes # (Manual) D-Dimer 836.6 H ABG pH ABG pO2 ABG HCO3 ABG O2 Saturation ABG Base Excess ABG Hemoglobin VBG pH Oxyhemoglobin Sodium Potassium Chloride Carbon Dioxide BUN Creatinine Glucose POC Glucose 229 H Hemoglobin A1c Lactic Acid Calcium Phosphorus Magnesium Ferritin 908.8 H AST ALT Alkaline Phosphatase Lactate Dehydrogenase C-Reactive Protein Total Protein Albumin Triglycerides Cholesterol Urine Creatinine Urine Microalbumin Vancomycin Trough Salicylates Acetaminophen 06/15/19 06/15/19 06/15/19 04:00 04:00 06:24 WBC 15.6 H RBC Hgb Hct MCH 27 L RDW Plt Count Lymph % (Auto) 10.9 L Seg Neutrophils % 84.1 H Seg Neuts % (Manual) Lymphocytes % (Manual) Monocytes % (Manual) Seg Neutrophils # 13.1 H Seg Neutrophils # Man Lymphocytes # (Manual) Monocytes # (Manual) D-Dimer ABG pH ABG pO2 ABG HCO3 ABG O2 Saturation ABG Base Excess ABG Hemoglobin VBG pH Oxyhemoglobin Sodium Potassium 3.3 L Chloride Carbon Dioxide 31 H D BUN Creatinine 0.4 L Glucose 199 H POC Glucose 192 H Hemoglobin A1c Lactic Acid Calcium Phosphorus Magnesium Ferritin AST ALT Alkaline Phosphatase Lactate Dehydrogenase 386 H C-Reactive Protein 17.00 H Total Protein Albumin Triglycerides Cholesterol Urine Creatinine Urine Microalbumin Vancomycin Trough Salicylates Acetaminophen 06/15/19 12:05 WBC RBC Hgb Hct MCH RDW Plt Count Lymph % (Auto) Seg Neutrophils % Seg Neuts % (Manual) Lymphocytes % (Manual) Monocytes % (Manual) Seg Neutrophils # Seg Neutrophils # Man Lymphocytes # (Manual) Monocytes # (Manual) D-Dimer ABG pH ABG pO2 ABG HCO3 ABG O2 Saturation ABG Base Excess ABG Hemoglobin VBG pH Oxyhemoglobin Sodium Potassium Chloride Carbon Dioxide BUN Creatinine Glucose POC Glucose 271 H Hemoglobin A1c Lactic Acid Calcium Phosphorus Magnesium Ferritin AST ALT Alkaline Phosphatase Lactate Dehydrogenase C-Reactive Protein Total Protein Albumin Triglycerides Cholesterol Urine Creatinine Urine Microalbumin Vancomycin Trough Salicylates Acetaminophen Chest x-ray: pending Allied health notes reviewed: nursing
[2019-06-15] MEDS ORDERED: POTASSIUM CHLORIDE ER 20 MEQ TAB PO NR (16:09)
--- NOTE | 2019-06-15 16:12 | Progress Note ---
Assessment and Plan Assessment and plan: Mrs. Tomas is a 48-year-old female with a history of hypertension, type 2 diabetes mellitus events with altered mental status. She arrived per EMS. Last known time normal 10 PM on night prior to admission. Patient is nonverbal. History obtained from paramedics and electronic medical record. Patient had been ill with fever cough for the past several days. She recently returned back from [place]. EMS discovered patient to be altered with work of breathing. Patient is nonverbal. She was not moving her right side. She is hypoxic at 77% room air. Blood pressure was 140/97. Blood sugar was elevated fingerstick. Hx obtained from [facility] realized that patient was not speaking 4 AM. Found her later breathing really heavy. Unresponsive. When she came back from [place] last Saturday. She had high fever. Her doctor ordered test for COVID-19. Dr. Rausch her PCP informed patient that she tested negative. She went to [place] to celebrate her mother's birthday. On admission she was noted to be in DKA and started on DKA protocol. She was al so intubated and on full mechanical ventilatory support. Diagnostic work-up so far EKG shows sinus tachycardia with MAT CT head no acute intracranial process CT cervical spine patchy groundglass consolidative airspace disease right mid to lower lung Mrs. Tomas presents with altered mental status hypoxia. She required mechanical ventilation for oxygenation and airway control. Initially was not moving her right side. With oxygen supplementation she began to move both of her arms. She continued to be nonverbal. She did not follow commands prior to intubation. With CT chest findings and history of fever I strongly suspect COVID 19. Although she previously tested negative there is significant support of false negative test so we will retest. survey form was filled out in the ED by the ED physician through the [facility] department of health as a person under investigation for COVID 19. Patient returned 1 week ago from [place] after celebrating her mother's birthday. * COVID 19 test results came back positive has been advised to forego quarantine himself. COVID 19 Induced Pneumonia Acute hypoxic respiratory failure mild on mechanical ventilation Hypernatremia-remains elevated will increase free water. Hypertension Acute metabolic encephalopathy Right upper extremity weakness now resolved Pneumonia Hypokalemia Leukocytosis Sepsis secondary to pneumonia-with hypothermia Severe metabolic acidosis DKA-resolved Diabetes mellitus with uncontrolled blood sugar Plan 06/04: Remains on full mechanical support. Patient with respiratory alkalosis noted. Adjustment made to the ventilator to decrease the rate. Will replace potassium as hypokalemia still persist. Hypernatremia gradually improving will adjust free water. Patient's anion gap is finally closed will transition to sliding scale coverage with Lantus. Anticipate weaning trial today if patient is amendable to it. Oxygen at requirements per vent settings appears to be improving 06/05: Leukocytosis improving although patient still hypoxic on the ventilator. Awaiting COVID 19 testing results. In addition continue antibiotics for broad- spectrum coverage. Will adjust insulin for better blood sugar control. 06/06: We will increase free water to 300 cc every 4 hours. We will also obtain consultation from back shoe worker. Otherwise continue current therapy. Also noted to have diastolic hypertension will adjust blood pressure medications. Initiated home meds. 06/07: Sodium gradually improving, will adjust free water to 350 while awaiting todays lab and back shoe worker. Patient still with non purposeful movement. Will discuss with ID about possible trial drug Ivermectin. Adjust basal insulin to 40 units BID 06/08: ID and pulmonary considering trial of the new medication ivermectin as patient's inflammatory markers went back up. Sodium mildly elevated. In addition to blood sugar. Discontinued D5 water which could be leading to elevated blood sugar. Will adjust free water to 400 every 4 hours. Nephrology following 06/09: Continue supportive care, Continue Management per ID and Critical care team. 06/10 weaning in progress, on D5W for correcting the hypernatremia. Potassium supplemented 06/12/19 probable extubation tomorrow 06/13/19--Extubated today 06/14/19 For transfer to floor 06/14: Patient unable to Transfer to the floor as she became hypoxic requiring H ighflow oxygen, Low potassium noted, will replace, monitor Blood glucose. Exam limited due to limited PPE. Inflammatory markers improving. Manganese Wheeler and infectious disease consult input noted EKG reviewed no evidence of atrial fibrillation will repeat. Replace potassium DKA protocol with insulin-will be discontinued f/u COVID test - pending Continue COVID isolation precautions per [facility] protocol S/P Plaquenil and azithromycin X 5 DAYS Obtain serial Ferritin, LDH, D-Dimer, CRP every 48h Empiric antibiotic coverage, obtain blood cultures and urine cultures and sputum cultures. Wean from vent as tolerated defer to artistic director We will monitor EKG for any visualization of the atrial fibrillation. If persist will obtain cardiology consult. DVT and GI prophylaxis The high probability of a clinically significant, sudden or life threatening deterioration of the [pulmonary, neuro,] system(s) required my full and direct attention, intervention and personal management. The aggregate critical care time was [32] minutes. This time is in addition to time spent performing reported procedures but includes the following: [x] Data Review and interpretation [x] Patient assessment and monitoring of vital signs [x] Documentation [x] Medication orders and management DVT and GI prophylaxis The high probability of a clinically significant, sudden or life threatening deterioration of the [pulmonary, neuro,] system(s) required my full and direct attention, intervention and personal management. The aggregate critical care time was [35] minutes. This time is in addition to time spent performing reported procedures but includes the following: [x] Data Review and interpretation [x] Patient assessment and monitoring of vital signs [x] Documentation [x] Medication orders and management History Interval history: Patient seen and examined continues on high flow oxygen postextubation. No adverse event reported to me overnight. PUI?: Yes COVID19: Positive Hospitalist Physical - Physical exam Narrative exam: Constitutional: no acute distress, asleep, other (Atraumatic, normocephalic, no patient -ventilator dyssynchrony) Eyes: non-icteric ENT: Follows some commands left-sided weakness persist Neck: supple, no lymphadenopathy, no JVD Effort: normal Ascultation: Bilateral: clear, diminished breath sounds, rhonchi Percussion: Bilateral: not dull Cardiovascular: irregular rhythm, other (S1,S2, no murmurs) Gastrointestinal: normoactive bowel sounds, soft, non-tender, tender Integumentary: normal Extremities: no cyanosis, no edema, pulses normal, no ischemia or petechiae Neurologic: unable to assess Psychiatric: other exam limited due to limited PPE's CBC and BMP: - Constitutional Vitals: Temp Pulse Resp BP Pulse Ox 98.2 F 92 H 20 93/58 97 06/15/19 12:00 06/15/19 14:00 06/15/19 14:00 06/15/19 14:00 06/15/19 14:00 General appearance: Present: no acute distress, well-nourished MACK score - Mack Score Age > 65: (0) No 3 or more CAD Risk Factors: (1) Yes 2 or more Angina events in past 24 hrs: (0) No Known CAD with more than 50% Stenosis: (0) No Elevated Cardiac Markers: (0) No ST Deviation Greater than 0.5mm: (0) No Results - Labs CBC & Chem 7: 06/15/19 04:00 06/15/19 04:00 Labs: Laboratory Last Values WBC 15.6 K/mm3 (4.5-11.0) H 06/15/19 04:00 RBC 4.67 M/mm3 (3.65-5.03) 06/15/19 04:00 Hgb 12.8 gm/dl (10.1-14.3) D 06/15/19 04:00 Hct 40.3 % (30.3-42.9) D 06/15/19 04:00 MCV 86 fl (79-97) 06/15/19 04:00 MCH 27 pg (28-32) L 06/15/19 04:00 MCHC 32 % (30-34) 06/15/19 04:00 RDW 14.8 % (13.2-15.2) 06/15/19 04:00 Plt Count 219 K/mm3 (140-440) 06/15/19 04:00 Lymph % (Auto) 10.9 % (13.4-35.0) L 06/15/19 04:00 [place] % (Auto) 4.6 % (0.0-7.3) 06/15/19 04:00 Eos % (Auto) 0.1 % (0.0-4.3) 06/15/19 04:00 Baso % (Auto) 0.3 % (0.0-1.8) 06/15/19 04:00 Lymph # 1.7 K/mm3 (1.2-5.4) 06/15/19 04:00 [place] # 0.7 K/mm3 (0.0-0.8) 06/15/19 04:00 Eos # 0.0 K/mm3 (0.0-0.4) 06/15/19 04:00 Baso # 0.0 K/mm3 (0.0-0.1) 06/15/19 04:00 Add Manual Diff Complete 06/14/19 14:44 Total Counted 100 06/14/19 14:44 Seg Neutrophils % 84.1 % (40.0-70.0) H 06/15/19 04:00 Seg Neuts % (Manual) 81.0 % (40.0-70.0) H 06/14/19 14:44 Band Neutrophils % 0 % 06/14/19 14:44 Lymphocytes % (Manual) 10.0 % (13.4-35.0) L 06/14/19 14:44 Reactive Lymphs % (Man) 0 % 06/14/19 14:44 Monocytes % (Manual) 7.0 % (0.0-7.3) 06/14/19 14:44 Eosinophils % (Manual) 1.0 % (0.0-4.3) 06/14/19 14:44 Basophils % (Manual) 1.0 % (0.0-1.8) 06/14/19 14:44 Metamyelocytes % 0 % 06/14/19 14:44 Myelocytes % 0 % 06/14/19 14:44 Promyelocytes % 0 % 06/14/19 14:44 Blast Cells % 0 % 06/14/19 14:44 Nucleated RBC % Not Reportable 06/14/19 14:44 Seg Neutrophils # 13.1 K/mm3 (1.8-7.7) H 06/15/19 04:00 Seg Neutrophils # Man 11.3 K/mm3 (1.8-7.7) H 06/14/19 14:44 Band Neutrophils # 0.0 K/mm3 06/14/19 14:44 Lymphocytes # (Manual) 1.4 K/mm3 (1.2-5.4) 06/14/19 14:44 Abs React Lymphs (Man) 0.0 K/mm3 06/14/19 14:44 Monocytes # (Manual) 1.0 K/mm3 (0.0-0.8) H 06/14/19 14:44 Eosinophils # (Manual) 0.1 K/mm3 (0.0-0.4) 06/14/19 14:44 Basophils # (Manual) 0.1 K/mm3 (0.0-0.1) 06/14/19 14:44 Metamyelocytes # 0.0 K/mm3 06/14/19 14:44 Myelocytes # 0.0 K/mm3 06/14/19 14:44 Promyelocytes # 0.0 K/mm3 06/14/19 14:44 Blast Cells # 0.0 K/mm3 06/14/19 14:44 WBC Morphology Not Reportable 06/14/19 14:44 Hypersegmented Neuts Not Reportable 06/14/19 14:44 Hyposegmented Neuts Not Reportable 06/14/19 14:44 Hypogranular Neuts Not Reportable 06/14/19 14:44 Smudge Cells Not Reportable 06/14/19 14:44 Toxic Granulation Not Reportable 06/14/19 14:44 Toxic Vacuolation Not Reportable 06/14/19 14:44 Dohle Bodies Not Reportable 06/14/19 14:44 Pelger-Huet Anomaly Not Reportable 06/14/19 14:44 Stephanie Rods Not Reportable 06/14/19 14:44 Platelet Estimate Not Reportable 06/14/19 14:44 Clumped Platelets Not Reportable 06/14/19 14:44 Plt Clumps, EDTA Not Reportable 06/14/19 14:44 Large Platelets Not Reportable 06/14/19 14:44 Giant Platelets Not Reportable 06/14/19 14:44 Platelet Satelliting Not Reportable 06/14/19 14:44 Plt Morphology Comment Not Reportable 06/14/19 14:44 RBC Morphology Not Reportable 06/14/19 14:44 Dimorphic RBCs Not Reportable 06/14/19 14:44 Polychromasia Not Reportable 06/14/19 14:44 Hypochromasia 1+ 06/14/19 14:44 Poikilocytosis Not Reportable 06/14/19 14:44 Anisocytosis 1+ 06/14/19 14:44 Microcytosis Not Reportable 06/14/19 14:44 Macrocytosis Not Reportable 06/14/19 14:44 Spherocytes Not Reportable 06/14/19 14:44 Pappenheimer Bodies Not Reportable 06/14/19 14:44 Sickle Cells Not Reportable 06/14/19 14:44 Target Cells Not Reportable 06/14/19 14:44 Tear Drop Cells Not Reportable 06/14/19 14:44 Ovalocytes Not Reportable 06/14/19 14:44 Helmet Cells Not Reportable 06/14/19 14:44 Hutchinson-[place] Bodies Not Reportable 06/14/19 14:44 Tynan Rings Not Reportable 06/14/19 14:44 Jessica Cells Not Reportable 06/14/19 14:44 Bite Cells Not Reportable 06/14/19 14:44 Crenated Cell Not Reportable 06/14/19 14:44 Elliptocytes Not Reportable 06/14/19 14:44 Acanthocytes (Spur) Not Reportable 06/14/19 14:44 Rouleaux Not Reportable 06/14/19 14:44 Hemoglobin C Crystals Not Reportable 06/14/19 14:44 Schistocytes Not Reportable 06/14/19 14:44 Malaria parasites Not Reportable 06/14/19 14:44 Elias Bodies Not Reportable 06/14/19 14:44 Hem Pathologist Commnt No 06/14/19 14:44 D-Dimer 836.6 ng/mlDDU (0-234) H 06/15/19 04:00 ABG pH 7.488 pH Units (7.350-7.450) H 06/14/19 16:35 ABG pCO2 40.7 mm Hg 06/14/19 16:35 ABG pO2 66.1 mm Hg (80.0-90.0) L 06/14/19 16:35 ABG HCO3 30.2 mmol/L (20.0-26.0) H 06/14/19 16:35 ABG O2 Saturation 94.7 % (95.0-99.0) L 06/14/19 16:35 ABG O2 Content 19.1 (0.0-44) 06/14/19 16:35 ABG Base Excess 6.3 mmol/L (-2.0-3.0) H 06/14/19 16:35 ABG Hemoglobin 14.6 gm/dl (12.0-16.0) 06/14/19 16:35 ABG Carboxyhemoglobin 1.0 % (0.0-5.0) 06/14/19 16:35 ABG Methemoglobin 0.5 % (0.0-1.5) 06/14/19 16:35 VBG pH 6.901 (7.320-7.420) L* 06/03/19 11:51 Oxyhemoglobin 93.3 % (95.0-99.0) L 06/14/19 16:35 FiO2 80 % 06/14/19 16:35 Sodium 143 mmol/L (137-145) 06/15/19 04:00 Potassium 3.3 mmol/L (3.6-5.0) L 06/15/19 04:00 Chloride 102.2 mmol/L (98-107) 06/15/19 04:00 Carbon Dioxide 31 mmol/L (22-30) H D 06/15/19 04:00 Anion Gap 13 mmol/L 06/15/19 04:00 BUN 16 mg/dL (7-17) 06/15/19 04:00 Creatinine 0.4 mg/dL (0.7-1.2) L 06/15/19 04:00 Estimated GFR > 60 ml/min 06/15/19 04:00 BUN/Creatinine Ratio 40 % 06/15/19 04:00 Glucose 199 mg/dL (65-100) H 06/15/19 04:00 POC Glucose 271 (70-105) H 06/15/19 12:05 Hemoglobin A1c 9.6 % (4-6) H 06/03/19 16:03 Lactic Acid 1.90 mmol/L (0.7-2.0) 06/03/19 21:32 Calcium 9.7 mg/dL (8.4-10.2) 06/15/19 04:00 Phosphorus 2.20 mg/dL (2.5-4.5) L 06/08/19 09:33 Magnesium 2.60 mg/dL (1.7-2.3) H 06/08/19 09:33 Ferritin 908.8 ng/mL (13.0-400.0) H 06/15/19 04:00 Total Bilirubin 0.20 mg/dL (0.1-1.2) 06/12/19 03:58 AST 103 units/L (5-40) H 06/12/19 03:58 ALT 101 units/L (7-56) H 06/12/19 03:58 Alkaline Phosphatase 128 units/L (35-129) 06/12/19 03:58 Lactate Dehydrogenase 386 units/L (91-180) H 06/15/19 04:00 Troponin T < 0.010 ng/mL (0.00-0.029) 06/03/19 11:51 C-Reactive Protein 17.00 mg/dL (0.00-1.30) H 06/15/19 04:00 Total Protein 5.9 g/dL (6.3-8.2) L 06/12/19 03:58 Albumin 2.3 g/dL (3.9-5) L 06/12/19 03:58 Albumin/Globulin Ratio 0.6 % 06/12/19 03:58 Triglycerides 304 mg/dL (2-149) H 06/09/19 07:34 Cholesterol 250 mg/dL (50-199) H 06/03/19 19:00 LDL Cholesterol Direct TNR 06/03/19 19:00 HDL Cholesterol 46 mg/dL (40-59) 06/03/19 19:00 Cholesterol/HDL Ratio 5.43 % 06/03/19 19:00 Procalcitonin 0.10 ng/mL (<0.15) 06/13/19 09:23 Urine Color Yellow (Yellow) 06/03/19 11:48 Urine Turbidity Clear (Clear) 06/03/19 11:48 Urine pH 6.0 (5.0-7.0) 06/03/19 11:48 Ur Specific [place] 1.026 (1.003-1.030) 06/03/19 11:48 Urine Protein 100 mg/dl mg/dL (Negative) 06/03/19 11:48 Urine Glucose (UA) >=500 mg/dL (Negative) 06/03/19 11:48 Urine Ketones 80 mg/dL (Negative) 06/03/19 11:48 Urine Blood Mod (Negative) 06/03/19 11:48 Urine Nitrite Neg (Negative) 06/03/19 11:48 Urine Bilirubin Neg (Negative) 06/03/19 11:48 Urine Urobilinogen < 2.0 mg/dL (<2.0) 06/03/19 11:48 Ur Leukocyte Esterase Neg (Negative) 06/03/19 11:48 Urine WBC (Auto) 1.0 /HPF (0.0-6.0) 06/03/19 11:48 Urine RBC (Auto) 2.0 /HPF (0.0-6.0) 06/03/19 11:48 Granular Casts 4 /LPF 06/03/19 11:48 Urine Mucus Few /HPF 06/03/19 11:48 Urine Osmolality 755 Mosm/kg 06/07/19 17:00 Urine Creatinine 37.4 mg/dL (0.1-20.0) H 06/03/19 11:48 Urine Microalbumin 65.1 mg/dL (0.1-34.0) H 06/03/19 11:48 Microalb/Creat Ratio 1740.6 ug/mg 06/03/19 11:48 Urine Sodium 130 mmol/L 06/07/19 17:00 Urine Chloride 172.4 mmolL (110-250) 06/07/19 17:00 Urine HCG, Qual Negative (Negative) 06/03/19 11:48 Vancomycin Trough 4.2 ug/mL (5.0-20.0) L 06/05/19 21:00 Salicylates < 0.3 mg/dL (2.8-20.0) L 06/03/19 11:51 Urine Opiates Screen Presumptive negative 06/03/19 11:48 Urine Methadone Screen Presumptive negative 06/03/19 11:48 Acetaminophen < 5.0 ug/mL (10.0-30.0) L 06/03/19 11:51 Ur Barbiturates Screen Presumptive negative 06/03/19 11:48 Ur Phencyclidine Scrn Presumptive negative 06/03/19 11:48 Ur Amphetamines Screen Presumptive negative 06/03/19 11:48 U Benzodiazepines Scrn Presumptive negative 06/03/19 11:48 Urine Cocaine Screen Presumptive negative 06/03/19 11:48 U Marijuana (THC) Screen Presumptive negative 06/03/19 11:48 Drugs of Abuse Note Disclamer 06/03/19 11:48 Plasma/Serum Alcohol < 0.01 % (0-0.07) 06/03/19 11:51 Hepatitis A IgM Ab Non-reactive (NonReactive) 06/04/19 08:19 Hep Bs Antigen Non-reactive (Negative) 06/04/19 08:19 Hep B Core IgM Ab Non-reactive (NonReactive) 06/04/19 08:19 Hepatitis C Antibody Non-reactive (NonReactive) 06/04/19 08:19 Influenza A (Rapid) Negative (Negative) 06/03/19 Unknown Influenza B (Rapid) Negative (Negative) 06/03/19 Unknown Miscellaneous Test See scanned result 06/05/19 Unknown Alves/IV: Voiding Method External Female Catheter IV Catheter Type [Right Hand] INT / Saline Lock IV Catheter Type [Left Hand] INT / Saline Lock IV Catheter Type [Right INT / Saline Lock Antecubital] IV Catheter Type [Left Peripheral IV Antecubital] Active Medications - Current Medications Current Medications: Generic Name Dose Route Start Last Admin Trade Name Freq PRN Reason Stop Dose Admin Albuterol 2 puff 06/15/19 12:24 Proair IH Q4HRT PRN Shortness Of Breath Amlodipine Besylate 5 mg 06/13/19 14:00 06/15/19 10:13 Amlodipine PO 5 mg QDAY JOSE ROBERTO Administration Lipase/Protease/Amylase 1 each 06/05/19 09:[address] 10,500 Unit FEEDTUBE PRN PRN For Clogged Feeding Tube Dextrose 50 ml 06/03/19 13:57 D50w (25gm) Syringe IV Q30MIN PRN Hypoglycemia Protocol Famotidine 20 mg 06/06/19 10:00 06/15/19 10:13 Pepcid PO 20 mg BID JOSE ROBERTO Administration Fentanyl 25 mcg 06/09/19 11:30 Sublimaze IV Q4H PRN AGITATION/ANXIETY Heparin Sodium (Porcine) 5,000 unit 06/03/19 14:15 06/15/19 10:12 Heparin SUB-Q 5,000 unit Q12HR JOSE ROBERTO Administration Hydralazine HCl 10 mg 06/07/19 08:42 06/14/19 06:24 Apresoline IV 10 mg Q4HR PRN Administration Hypertension Hydrophilic Ointment 1 applic 06/03/19 11:02 Vaseline Lip Therapy TP Q2HR PRN Dry Lips Insulin Human Regular 0 units 06/15/19 11:30 06/15/19 12:43 Humulin R SUB-Q 4 units ACHS JOSE ROBERTO Administration Protocol Losartan Potassium 50 mg 06/07/19 10:00 06/15/19 10:12 Cozaar PO 50 mg QDAY JOSE ROBERTO Administration Multi-Ingred Cream/Lotion/Oil/Oint 1 applic 06/03/19 11:02 Artificial Tears Ophth Oint OU Q4HR PRN Dry Eye(s) Potassium Chloride 40 meq 06/15/19 16:09 K-Dur PO 06/15/19 16:10 ONCE ONE Quetiapine Fumarate 50 mg 06/10/19 22:00 06/14/19 21:24 Seroquel PO Not Given QHS JOSE ROBERTO Senna 8.6 mg 06/03/19 22:00 06/15/19 10:12 Senokot PO 8.6 mg BID JOSE ROBERTO Administration Simple Syrup 15 ml 06/05/19 09:59 Simple Syrup FEEDTUBE PRN PRN Hypoglycemia Simple Syrup 30 ml 06/05/19 09:59 Simple Syrup FEEDTUBE PRN PRN Hypoglycemia Sodium Bicarbonate 325 mg 06/05/19 09:59 Sodium Bicarbonate FEEDTUBE PRN PRN For Clogged Feeding Tube Sodium Chloride 10 ml 06/03/19 22:00 06/15/19 10:13 Sodium Chloride Flush Syringe 10 Ml IV 10 ml BID JOSE ROBERTO Administration Sodium Chloride 10 ml 06/03/19 13:57 Sodium Chloride Flush Syringe 10 Ml IV PRN PRN LINE FLUSH Nutrition/Malnutrition Assess - Dietary Evaluation Nutrition/Malnutrition Findings: Nutrition Notes Start: 06/04/19 08:30 Freq: Status: Active Protocol: Document 06/14/19 09:39 LM (Rec: 06/14/19 09:44 LM [id number]) Nutrition Notes Initial or Follow up Reassessment Current Diagnosis Diabetes,Sepsis,Hypertension, Respiratory Failure, Hyperlipidemia Other Pertinent Diagnosis COVID-19 positive, Pneu, metabolic encephalopathy Current Diet Vital AF 1.2 at 60ml/hr Labs/Tests Reviewed Pertinent Medications Reviewed Height 5 ft 6 in Weight 81.1 kg [place] Body Weight (kg) 59.09 BMI 28.8 Weight Status Overweight Subjective/Other Information Pt extubated and GENETICS PHYSICIAN eval has been ordered. Per RN notes, pt had difficulty swallowing water. Current % PO Negligible Minimum of two criteria No Fluid Accumulation Mild (non-severe) #1 Nutrition Diagnosis Inadequate oral intake As Evidenced by Signs and Symptoms pt extubated Diagnosis Progress(for reassessment Improved documentation) Is patient on ventilator? No Is Patient Ambulatory and/or Out of Bed No REE-(Chadron-St. Jeor-confined to bed) 0157.774 Calculation [facility]ations [facility] Additional Notes Protein: 65-81g (0.8-1g/kg) Fluid: 1ml/kcal Nutrition Intervention Change Diet Order: TF or diet advancement per GENETICS PHYSICIAN recommendations Goal #1 Diet advancement Anticipated Discharge Needs: unable to determine at this time Follow-Up By: 06/16/19 Additional Comments F/U for diet advancement, GENETICS PHYSICIAN kalli
[2019-06-15] MEDS: QUEtiapine 25 MG TAB PO SCH (21:52)
[2019-06-16 05:29] LABS: Hematocrit 40.3 % (30.3-42.9); Hemoglobin 12.8 gm/dl (10.1-14.3); Mean Corpuscular HGB Conc 32 % (30-34); Mean Corpuscular Volume 87 fl (79-97); Platelet Count 215 K/mm3 (140-440); Red Blood Count 4.62 M/mm3 (3.65-5.03); Red Cell Distribution Width 14.5 % (13.2-15.2)
[2019-06-16 05:40] LABS: BUN/Creatinine Ratio 28; Blood Urea Nitrogen 14 mg/dL (7-17); Calcium 9.7 mg/dL (8.4-10.2); Hemolysis Index 5
[2019-06-16] MEDS: INSULIN REGULAR, HUMAN 100 UNITS/1 ML SUB-Q SCH ×4 (07:59→18:04)
[2019-06-16] MEDS: amLODIPine 5 MG TAB PO SCH ×2 (10:44→18:02)
[2019-06-16] MEDS: LOSARTAN 50 MG TAB PO SCH ×2 (10:44→18:02)
[2019-06-16] MEDS: SENNOSIDES 8.6 MG TAB PO SCH ×2 (10:45→21:17)
[2019-06-16] MEDS: POTASSIUM CHLORIDE 20 MEQ PACKET FEEDTUBE ONE ×2 (10:45→18:04)
[2019-06-16] MEDS: FAMOTIDINE 20 MG TAB PO SCH ×2 (10:45→21:17)
[2019-06-16] MEDS: HEPARIN 5,000 UNIT/1 ML VIAL SUB-Q SCH ×2 (10:49→21:16)
--- NOTE | 2019-06-16 12:54 | Progress Note ---
Assessment and Plan Cultures: Blood culture 06/03/2019 Micrococcus 1 of 4 Urine culture 06/03/2019 no growth today Assessment: 48 year old female with history of diabetes, hypertension admitted on 06/03/2019 due to acute altered mental status and shortness of breath, recently returned back from [place]: #Severe sepsis: improved. #Bilateral pneumonia secondary to COVID-19: S/P plaquenil. Off abx. #Acute hypoxemic respiratory failure/ARDS: extubated 06/13/2019. #Acute encephalopathy: Likely due to #1 and high sodium #SHARITA: improved. #Diabetes with DKA #Hypernatremia per IMS, better #Micrococcus in blood culture: 1 of 4 likely a contaminant Recommendations: continue supportive care and isolation Mayo Medina MD, FACP [facility] C: [phone] O: [phone] F: [phone] Subjective Date of service: 06/16/19 Principal diagnosis: Ac hypoxemic resp failure; Bob. PNA; PUI CVOVID-19; DKA; Severe sepsis Interval history: No fever. Remains on high flow NC. PUI?: Yes COVID19: Positive Objective - Exam Narrative Exam: Physical Exam (reviewed in chart due to PPE conservation) Constitutional: limited due to PPE conservation strategy Head, Ears, Nose: limited due to PPE conservation strategy Eyes: limited due to PPE conservation strategy Neck: limited due to PPE conservation strategy Oral: limited due to PPE conservation strategy Cardiovascular: limited due to PPE conservation strategy Respiratory: limited due to PPE conservation strategy GI: limited due to PPE conservation strategy Musculoskeletal: limited due to PPE conservation strategy Skin: limited due to PPE conservation strategy Hem/Lymphatic: limited due to PPE conservation strategy Psych: limited due to PPE conservation strategy Neurological: limited due to PPE conservation strategy - Constitutional Vitals: Vital Signs Temp Pulse Resp BP Pulse Ox 98.2 F 91 H 21 148/94 97 06/16/19 12:00 06/16/19 10:00 06/16/19 10:00 06/16/19 10:00 06/16/19 10:00 Temperature -Last 24 Hours Temperature 98.2 F Temperature 98.2 F Temperature 98.8 F Temperature 98.6 F Temperature 98.5 F Temperature 98.6 F - Labs CBC & Chem 7: 06/16/19 05:16 06/16/19 05:16 Labs: Abnormal lab results 06/15/19 06/15/19 06/16/19 Range/Units 17:02 21:00 00:13 WBC (4.5-11.0) K/mm3 Potassium (3.6-5.0) mmol/L Creatinine (0.7-1.2) mg/dL Glucose (65-100) mg/dL POC Glucose 239 H 211 H 230 H (70-105) 06/16/19 06/16/19 06/16/19 Range/Units 05:16 05:16 08:05 WBC 12.4 H (4.5-11.0) K/mm3 Potassium 3.4 L (3.6-5.0) mmol/L Creatinine 0.5 L (0.7-1.2) mg/dL Glucose 215 H (65-100) mg/dL POC Glucose 220 H (70-105) 06/16/19 Range/Units 12:17 WBC (4.5-11.0) K/mm3 Potassium (3.6-5.0) mmol/L Creatinine (0.7-1.2) mg/dL Glucose (65-100) mg/dL POC Glucose 195 H (70-105)
[2019-06-16] MEDS: hydrALAZINE 20 MG/1 ML INJ IV PRN (13:05)
--- NOTE | 2019-06-16 16:52 | Progress Note ---
Assessment and Plan Assessment and plan: Mrs. Tomas is a 48-year-old female with a history of hypertension, type 2 diabetes mellitus events with altered mental status. She arrived per EMS. Last known time normal 10 PM on night prior to admission. Patient is nonverbal. History obtained from paramedics and electronic medical record. Patient had been ill with fever cough for the past several days. She recently returned back from [place]. EMS discovered patient to be altered with work of breathing. Patient is nonverbal. She was not moving her right side. She is hypoxic at 77% room air. Blood pressure was 140/97. Blood sugar was elevated fingerstick. Hx obtained from [facility] realized that patient was not speaking 4 AM. Found her later breathing really heavy. Unresponsive. When she came back from [place] last Saturday. She had high fever. Her doctor ordered test for COVID-19. Dr. Rausch her PCP informed patient that she tested negative. She went to [place] to celebrate her mother's birthday. On admission she was noted to be in DKA and started on DKA protocol. She was al so intubated and on full mechanical ventilatory support. Diagnostic work-up so far EKG shows sinus tachycardia with MAT CT head no acute intracranial process CT cervical spine patchy groundglass consolidative airspace disease right mid to lower lung Mrs. Tomas presents with altered mental status hypoxia. She required mechanical ventilation for oxygenation and airway control. Initially was not moving her right side. With oxygen supplementation she began to move both of her arms. She continued to be nonverbal. She did not follow commands prior to intubation. With CT chest findings and history of fever I strongly suspect COVID 19. Although she previously tested negative there is significant support of false negative test so we will retest. survey form was filled out in the ED by the ED physician through the [facility] department of health as a person under investigation for COVID 19. Patient returned 1 week ago from [place] after celebrating her mother's birthday. * COVID 19 test results came back positive has been advised to forego quarantine himself. COVID 19 Induced Pneumonia Acute hypoxic respiratory failure mild on mechanical ventilation Hypernatremia-remains elevated will increase free water. Hypertension Acute metabolic encephalopathy Right upper extremity weakness now resolved Pneumonia Hypokalemia Leukocytosis Sepsis secondary to pneumonia-with hypothermia Severe metabolic acidosis DKA-resolved Diabetes mellitus with uncontrolled blood sugar Plan 06/04: Remains on full mechanical support. Patient with respiratory alkalosis noted. Adjustment made to the ventilator to decrease the rate. Will replace potassium as hypokalemia still persist. Hypernatremia gradually improving will adjust free water. Patient's anion gap is finally closed will transition to sliding scale coverage with Lantus. Anticipate weaning trial today if patient is amendable to it. Oxygen at requirements per vent settings appears to be improving 06/05: Leukocytosis improving although patient still hypoxic on the ventilator. Awaiting COVID 19 testing results. In addition continue antibiotics for broad- spectrum coverage. Will adjust insulin for better blood sugar control. 06/06: We will increase free water to 300 cc every 4 hours. We will also obtain consultation from aircraft engine specialist. Otherwise continue current therapy. Also noted to have diastolic hypertension will adjust blood pressure medications. Initiated home meds. 06/07: Sodium gradually improving, will adjust free water to 350 while awaiting todays lab and aircraft engine specialist. Patient still with non purposeful movement. Will discuss with ID about possible trial drug Ivermectin. Adjust basal insulin to 40 units BID 06/08: ID and pulmonary considering trial of the new medication ivermectin as patient's inflammatory markers went back up. Sodium mildly elevated. In addition to blood sugar. Discontinued D5 water which could be leading to elevated blood sugar. Will adjust free water to 400 every 4 hours. Nephrology following 06/09: Continue supportive care, Continue Management per ID and Critical care team. 06/10 weaning in progress, on D5W for correcting the hypernatremia. Potassium supplemented 06/12/19 probable extubation tomorrow 06/13/19--Extubated today 06/14/19 For transfer to floor 06/14: Patient unable to Transfer to the floor as she became hypoxic requiring H ighflow oxygen, Low potassium noted, will replace, monitor Blood glucose. Exam limited due to limited PPE. Inflammatory markers improving. 06/15: Still concern for possible decompensation. Will continue on ICU status at this time. Aspiration precautions. Continue high flow. Replace electrolytes as needed Electric Shipyard Operator and infectious disease consult input noted EKG reviewed no evidence of atrial fibrillation will repeat. Replace potassium DKA protocol with insulin-will be discontinued f/u COVID test - pending Continue COVID isolation precautions per [facility] protocol S/P Plaquenil and azithromycin X 5 DAYS Obtain serial Ferritin, LDH, D-Dimer, CRP every 48h Empiric antibiotic coverage, obtain blood cultures and urine cultures and sputum cultures. Wean from vent as tolerated defer to injection wax molder We will monitor EKG for any visualization of the atrial fibrillation. If persist will obtain cardiology consult. DVT and GI prophylaxis The high probability of a clinically significant, sudden or life threatening deterioration of the [pulmonary, neuro,] system(s) required my full and direct attention, intervention and personal management. The aggregate critical care time was [32] minutes. This time is in addition to time spent performing reported procedures but includes the following: [x] Data Review and interpretation [x] Patient assessment and monitoring of vital signs [x] Documentation [x] Medication orders and management History Interval history: Patient seen and examined continues on high flow oxygen postextubation.overnight required increase in high flow oxygen PUI?: Yes COVID19: Positive Hospitalist Physical - Physical exam Narrative exam: Constitutional: no acute distress, asleep, other (Atraumatic, normocephalic, no patient -ventilator dyssynchrony) Eyes: non-icteric ENT: Follows some commands left-sided weakness persist Neck: supple, no lymphadenopathy, no JVD Effort: normal Ascultation: Bilateral: diminished breath sounds, rhonchi Percussion: Bilateral: not dull Cardiovascular: irregular rhythm, other (S1,S2, no murmurs) Gastrointestinal: normoactive bowel sounds, soft, non-tender, tender Integumentary: normal Extremities: no cyanosis, no edema, pulses normal, no ischemia or petechiae Neurologic: per staff following some command Psychiatric: other exam limited due to limited PPE's CBC and BMP: - Constitutional Vitals: Temp Pulse Resp BP Pulse Ox 99.2 F 106 H 25 H 169/100 96 06/16/19 16:04 06/16/19 16:00 06/16/19 16:00 06/16/19 16:00 06/16/19 16:00 General appearance: Present: no acute distress, well-nourished MACK score - Mack Score Age > 65: (0) No 3 or more CAD Risk Factors: (1) Yes 2 or more Angina events in past 24 hrs: (0) No Known CAD with more than 50% Stenosis: (0) No Elevated Cardiac Markers: (0) No ST Deviation Greater than 0.5mm: (0) No Results - Labs CBC & Chem 7: 06/16/19 05:16 06/16/19 05:16 Labs: Laboratory Last Values WBC 12.4 K/mm3 (4.5-11.0) H 06/16/19 05:16 RBC 4.62 M/mm3 (3.65-5.03) 06/16/19 05:16 Hgb 12.8 gm/dl (10.1-14.3) 06/16/19 05:16 Hct 40.3 % (30.3-42.9) 06/16/19 05:16 MCV 87 fl (79-97) 06/16/19 05:16 MCH 28 pg (28-32) 06/16/19 05:16 MCHC 32 % (30-34) 06/16/19 05:16 RDW 14.5 % (13.2-15.2) 06/16/19 05:16 Plt Count 215 K/mm3 (140-440) 06/16/19 05:16 Lymph % (Auto) 10.9 % (13.4-35.0) L 06/15/19 04:00 [place] % (Auto) 4.6 % (0.0-7.3) 06/15/19 04:00 Eos % (Auto) 0.1 % (0.0-4.3) 06/15/19 04:00 Baso % (Auto) 0.3 % (0.0-1.8) 06/15/19 04:00 Lymph # 1.7 K/mm3 (1.2-5.4) 06/15/19 04:00 [place] # 0.7 K/mm3 (0.0-0.8) 06/15/19 04:00 Eos # 0.0 K/mm3 (0.0-0.4) 06/15/19 04:00 Baso # 0.0 K/mm3 (0.0-0.1) 06/15/19 04:00 Add Manual Diff Complete 06/14/19 14:44 Total Counted 100 06/14/19 14:44 Seg Neutrophils % 84.1 % (40.0-70.0) H 06/15/19 04:00 Seg Neuts % (Manual) 81.0 % (40.0-70.0) H 06/14/19 14:44 Band Neutrophils % 0 % 06/14/19 14:44 Lymphocytes % (Manual) 10.0 % (13.4-35.0) L 06/14/19 14:44 Reactive Lymphs % (Man) 0 % 06/14/19 14:44 Monocytes % (Manual) 7.0 % (0.0-7.3) 06/14/19 14:44 Eosinophils % (Manual) 1.0 % (0.0-4.3) 06/14/19 14:44 Basophils % (Manual) 1.0 % (0.0-1.8) 06/14/19 14:44 Metamyelocytes % 0 % 06/14/19 14:44 Myelocytes % 0 % 06/14/19 14:44 Promyelocytes % 0 % 06/14/19 14:44 Blast Cells % 0 % 06/14/19 14:44 Nucleated RBC % Not Reportable 06/14/19 14:44 Seg Neutrophils # 13.1 K/mm3 (1.8-7.7) H 06/15/19 04:00 Seg Neutrophils # Man 11.3 K/mm3 (1.8-7.7) H 06/14/19 14:44 Band Neutrophils # 0.0 K/mm3 06/14/19 14:44 Lymphocytes # (Manual) 1.4 K/mm3 (1.2-5.4) 06/14/19 14:44 Abs React Lymphs (Man) 0.0 K/mm3 06/14/19 14:44 Monocytes # (Manual) 1.0 K/mm3 (0.0-0.8) H 06/14/19 14:44 Eosinophils # (Manual) 0.1 K/mm3 (0.0-0.4) 06/14/19 14:44 Basophils # (Manual) 0.1 K/mm3 (0.0-0.1) 06/14/19 14:44 Metamyelocytes # 0.0 K/mm3 06/14/19 14:44 Myelocytes # 0.0 K/mm3 06/14/19 14:44 Promyelocytes # 0.0 K/mm3 06/14/19 14:44 Blast Cells # 0.0 K/mm3 06/14/19 14:44 WBC Morphology Not Reportable 06/14/19 14:44 Hypersegmented Neuts Not Reportable 06/14/19 14:44 Hyposegmented Neuts Not Reportable 06/14/19 14:44 Hypogranular Neuts Not Reportable 06/14/19 14:44 Smudge Cells Not Reportable 06/14/19 14:44 Toxic Granulation Not Reportable 06/14/19 14:44 Toxic Vacuolation Not Reportable 06/14/19 14:44 Dohle Bodies Not Reportable 06/14/19 14:44 Pelger-Huet Anomaly Not Reportable 06/14/19 14:44 Stephanie Rods Not Reportable 06/14/19 14:44 Platelet Estimate Not Reportable 06/14/19 14:44 Clumped Platelets Not Reportable 06/14/19 14:44 Plt Clumps, EDTA Not Reportable 06/14/19 14:44 Large Platelets Not Reportable 06/14/19 14:44 Giant Platelets Not Reportable 06/14/19 14:44 Platelet Satelliting Not Reportable 06/14/19 14:44 Plt Morphology Comment Not Reportable 06/14/19 14:44 RBC Morphology Not Reportable 06/14/19 14:44 Dimorphic RBCs Not Reportable 06/14/19 14:44 Polychromasia Not Reportable 06/14/19 14:44 Hypochromasia 1+ 06/14/19 14:44 Poikilocytosis Not Reportable 06/14/19 14:44 Anisocytosis 1+ 06/14/19 14:44 Microcytosis Not Reportable 06/14/19 14:44 Macrocytosis Not Reportable 06/14/19 14:44 Spherocytes Not Reportable 06/14/19 14:44 Pappenheimer Bodies Not Reportable 06/14/19 14:44 Sickle Cells Not Reportable 06/14/19 14:44 Target Cells Not Reportable 06/14/19 14:44 Tear Drop Cells Not Reportable 06/14/19 14:44 Ovalocytes Not Reportable 06/14/19 14:44 Helmet Cells Not Reportable 06/14/19 14:44 [place] Bodies Not Reportable 06/14/19 14:44 [place] Rings Not Reportable 06/14/19 14:44 Jessica Cells Not Reportable 06/14/19 14:44 Bite Cells Not Reportable 06/14/19 14:44 Crenated Cell Not Reportable 06/14/19 14:44 Elliptocytes Not Reportable 06/14/19 14:44 Acanthocytes (Spur) Not Reportable 06/14/19 14:44 Rouleaux Not Reportable 06/14/19 14:44 Hemoglobin C Crystals Not Reportable 06/14/19 14:44 Schistocytes Not Reportable 06/14/19 14:44 Malaria parasites Not Reportable 06/14/19 14:44 Elias Bodies Not Reportable 06/14/19 14:44 Hem Pathologist Commnt No 06/14/19 14:44 D-Dimer 836.6 ng/mlDDU (0-234) H 06/15/19 04:00 ABG pH 7.488 pH Units (7.350-7.450) H 06/14/19 16:35 ABG pCO2 40.7 mm Hg 06/14/19 16:35 ABG pO2 66.1 mm Hg (80.0-90.0) L 06/14/19 16:35 ABG HCO3 30.2 mmol/L (20.0-26.0) H 06/14/19 16:35 ABG O2 Saturation 94.7 % (95.0-99.0) L 06/14/19 16:35 ABG O2 Content 19.1 (0.0-44) 06/14/19 16:35 ABG Base Excess 6.3 mmol/L (-2.0-3.0) H 06/14/19 16:35 ABG Hemoglobin 14.6 gm/dl (12.0-16.0) 06/14/19 16:35 ABG Carboxyhemoglobin 1.0 % (0.0-5.0) 06/14/19 16:35 ABG Methemoglobin 0.5 % (0.0-1.5) 06/14/19 16:35 VBG pH 6.901 (7.320-7.420) L* 06/03/19 11:51 Oxyhemoglobin 93.3 % (95.0-99.0) L 06/14/19 16:35 FiO2 80 % 06/14/19 16:35 Sodium 145 mmol/L (137-145) 06/16/19 05:16 Potassium 3.4 mmol/L (3.6-5.0) L 06/16/19 05:16 Chloride 104.0 mmol/L (98-107) 06/16/19 05:16 Carbon Dioxide 27 mmol/L (22-30) 06/16/19 05:16 Anion Gap 17 mmol/L 06/16/19 05:16 BUN 14 mg/dL (7-17) 06/16/19 05:16 Creatinine 0.5 mg/dL (0.7-1.2) L 06/16/19 05:16 Estimated GFR > 60 ml/min 06/16/19 05:16 BUN/Creatinine Ratio 28 % 06/16/19 05:16 Glucose 215 mg/dL (65-100) H 06/16/19 05:16 POC Glucose 195 (70-105) H 06/16/19 12:17 Hemoglobin A1c 9.6 % (4-6) H 06/03/19 16:03 Lactic Acid 1.90 mmol/L (0.7-2.0) 06/03/19 21:32 Calcium 9.7 mg/dL (8.4-10.2) 06/16/19 05:16 Phosphorus 2.20 mg/dL (2.5-4.5) L 06/08/19 09:33 Magnesium 2.60 mg/dL (1.7-2.3) H 06/08/19 09:33 Ferritin 908.8 ng/mL (13.0-400.0) H 06/15/19 04:00 Total Bilirubin 0.20 mg/dL (0.1-1.2) 06/12/19 03:58 AST 103 units/L (5-40) H 06/12/19 03:58 ALT 101 units/L (7-56) H 06/12/19 03:58 Alkaline Phosphatase 128 units/L (35-129) 06/12/19 03:58 Lactate Dehydrogenase 386 units/L (91-180) H 06/15/19 04:00 Troponin T < 0.010 ng/mL (0.00-0.029) 06/03/19 11:51 C-Reactive Protein 17.00 mg/dL (0.00-1.30) H 06/15/19 04:00 Total Protein 5.9 g/dL (6.3-8.2) L 06/12/19 03:58 Albumin 2.3 g/dL (3.9-5) L 06/12/19 03:58 Albumin/Globulin Ratio 0.6 % 06/12/19 03:58 Triglycerides 304 mg/dL (2-149) H 06/09/19 07:34 Cholesterol 250 mg/dL (50-199) H 06/03/19 19:00 LDL Cholesterol Direct TNR 06/03/19 19:00 HDL Cholesterol 46 mg/dL (40-59) 06/03/19 19:00 Cholesterol/HDL Ratio 5.43 % 06/03/19 19:00 Procalcitonin 0.10 ng/mL (<0.15) 06/13/19 09:23 Urine Color Yellow (Yellow) 06/03/19 11:48 Urine Turbidity Clear (Clear) 06/03/19 11:48 Urine pH 6.0 (5.0-7.0) 06/03/19 11:48 Ur Specific [place] 1.026 (1.003-1.030) 06/03/19 11:48 Urine Protein 100 mg/dl mg/dL (Negative) 06/03/19 11:48 Urine Glucose (UA) >=500 mg/dL (Negative) 06/03/19 11:48 Urine Ketones 80 mg/dL (Negative) 06/03/19 11:48 Urine Blood Mod (Negative) 06/03/19 11:48 Urine Nitrite Neg (Negative) 06/03/19 11:48 Urine Bilirubin Neg (Negative) 06/03/19 11:48 Urine Urobilinogen < 2.0 mg/dL (<2.0) 06/03/19 11:48 Ur Leukocyte Esterase Neg (Negative) 06/03/19 11:48 Urine WBC (Auto) 1.0 /HPF (0.0-6.0) 06/03/19 11:48 Urine RBC (Auto) 2.0 /HPF (0.0-6.0) 06/03/19 11:48 Granular Casts 4 /LPF 06/03/19 11:48 Urine Mucus Few /HPF 06/03/19 11:48 Urine Osmolality 755 Mosm/kg 06/07/19 17:00 Urine Creatinine 37.4 mg/dL (0.1-20.0) H 06/03/19 11:48 Urine Microalbumin 65.1 mg/dL (0.1-34.0) H 06/03/19 11:48 Microalb/Creat Ratio 1740.6 ug/mg 06/03/19 11:48 Urine Sodium 130 mmol/L 06/07/19 17:00 Urine Chloride 172.4 mmolL (110-250) 06/07/19 17:00 Urine HCG, Qual Negative (Negative) 06/03/19 11:48 Vancomycin Trough 4.2 ug/mL (5.0-20.0) L 06/05/19 21:00 Salicylates < 0.3 mg/dL (2.8-20.0) L 06/03/19 11:51 Urine Opiates Screen Presumptive negative 06/03/19 11:48 Urine Methadone Screen Presumptive negative 06/03/19 11:48 Acetaminophen < 5.0 ug/mL (10.0-30.0) L 06/03/19 11:51 Ur Barbiturates Screen Presumptive negative 06/03/19 11:48 Ur Phencyclidine Scrn Presumptive negative 06/03/19 11:48 Ur Amphetamines Screen Presumptive negative 06/03/19 11:48 U Benzodiazepines Scrn Presumptive negative 06/03/19 11:48 Urine Cocaine Screen Presumptive negative 06/03/19 11:48 U Marijuana (THC) Screen Presumptive negative 06/03/19 11:48 Drugs of Abuse Note Disclamer 06/03/19 11:48 Plasma/Serum Alcohol < 0.01 % (0-0.07) 06/03/19 11:51 Hepatitis A IgM Ab Non-reactive (NonReactive) 06/04/19 08:19 Hep Bs Antigen Non-reactive (Negative) 06/04/19 08:19 Hep B Core IgM Ab Non-reactive (NonReactive) 06/04/19 08:19 Hepatitis C Antibody Non-reactive (NonReactive) 06/04/19 08:19 Influenza A (Rapid) Negative (Negative) 06/03/19 Unknown Influenza B (Rapid) Negative (Negative) 06/03/19 Unknown Miscellaneous Test See scanned result 06/05/19 Unknown Alves/IV: Voiding Method External Female Catheter IV Catheter Type [Right Hand] INT / Saline Lock IV Catheter Type [Left Hand] INT / Saline Lock IV Catheter Type [Right INT / Saline Lock Antecubital] IV Catheter Type [Left Peripheral IV Antecubital] Active Medications - Current Medications Current Medications: Generic Name Dose Route Start Last Admin Trade Name Freq PRN Reason Stop Dose Admin Albuterol 2 puff 06/15/19 12:24 Proair IH Q4HRT PRN Shortness Of Breath Amlodipine Besylate 5 mg 06/13/19 14:00 06/16/19 10:44 Amlodipine PO Not Given QDAY ON LICENSE OF [facility] Lipase/Protease/Amylase 1 each 06/05/19 09:[address] 10,500 Unit FEEDTUBE PRN PRN For Clogged Feeding Tube Dextrose 50 ml 06/03/19 13:57 D50w (25gm) Syringe IV Q30MIN PRN Hypoglycemia Protocol Famotidine 20 mg 06/06/19 10:00 06/16/19 10:45 Pepcid PO Not Given BID ON LICENSE OF [facility] Heparin Sodium (Porcine) 5,000 unit 06/03/19 14:15 06/16/19 10:49 Heparin SUB-Q 5,000 unit Q12HR JOSE ROBERTO Administration Hydralazine HCl 10 mg 06/07/19 08:42 06/16/19 13:05 Apresoline IV 10 mg Q4HR PRN Administration Hypertension Hydrophilic Ointment 1 applic 06/03/19 11:02 Vaseline Lip Therapy TP Q2HR PRN Dry Lips Insulin Human Regular 0 units 06/15/19 11:30 06/16/19 12:07 Humulin R SUB-Q Not Given ACHS ON LICENSE OF [facility] Protocol Losartan Potassium 50 mg 06/07/19 10:00 06/16/19 10:44 Cozaar PO Not Given QDAY ON LICENSE OF [facility] Multi-Ingred Cream/Lotion/Oil/Oint 1 applic 06/03/19 11:02 Artificial Tears Ophth Oint OU Q4HR PRN Dry Eye(s) Quetiapine Fumarate 50 mg 06/10/19 22:00 06/15/19 21:52 Seroquel PO 50 mg QHS JOSE ROBERTO Administration Senna 8.6 mg 06/03/19 22:00 06/16/19 10:45 Senokot PO Not Given BID JOSE ROBERTO Simple Syrup 15 ml 06/05/19 09:59 Simple Syrup FEEDTUBE PRN PRN Hypoglycemia Simple Syrup 30 ml 06/05/19 09:59 Simple Syrup FEEDTUBE PRN PRN Hypoglycemia Sodium Bicarbonate 325 mg 06/05/19 09:59 Sodium Bicarbonate FEEDTUBE PRN PRN For Clogged Feeding Tube Sodium Chloride 10 ml 06/03/19 22:00 06/16/19 10:52 Sodium Chloride Flush Syringe 10 Ml IV 10 ml BID JOSE ROBERTO Administration Sodium Chloride 10 ml 06/03/19 13:57 Sodium Chloride Flush Syringe 10 Ml IV PRN PRN LINE FLUSH Nutrition/Malnutrition Assess - Dietary Evaluation Nutrition/Malnutrition Findings: Nutrition Notes Start: 06/04/19 08:30 Freq: Status: Active Protocol: Document 06/16/19 08:21 LP (Rec: 06/16/19 08:26 LP [id number]) Nutrition Notes Initial or Follow up Brief Note Current Diagnosis Diabetes,Sepsis,Hypertension, Respiratory Failure, Hyperlipidemia Other Pertinent Diagnosis COVID-19 positive, Pneu, metabolic encephalopathy Current Diet NPO Labs/Tests K 3.4 BG 215 Pertinent Medications Reviewed Height 5 ft 6 in Weight 81.1 kg [place] Body Weight (kg) 59.09 BMI 28.8 Weight Status Overweight Subjective/Other Information Still waiting for WINE CELLAR STOCK CLERK to see. Pt remains NPO. Burn Absent Trauma Absent Nutrition Intervention Follow-Up By: 06/18/19 Additional Comments Follow for WINE CELLAR STOCK CLERK evaluation, diet advancement/intakes
--- NOTE | 2019-06-16 17:40 | XRay Report ---
ABDOMEN 1 VIEW(S) INDICATION / CLINICAL INFORMATION: NGT placement. COMPARISON: None available. FINDINGS: TUBES / LINES: Feeding tube is seen with the tip in the region of the antrum of the stomach appearing to be in good position. BOWEL GAS PATTERN: No significant abnormality. FREE AIR / EXTRALUMINAL GAS: None seen. ADDITIONAL FINDINGS: No significant additional findings. IMPRESSION: 1. Feeding tube in stomach Signer Name: Phi Pizano MD Signed: 06/16/2019 5:36 PM Workstation Name: [id number]
[2019-06-16] MEDS ORDERED: POTASSIUM CHLORIDE 20 MEQ PACKET ONE (18:01)
--- NOTE | 2019-06-16 18:18 | Progress Note ---
Assessment and Plan Acute hypoxemic respiratory failure on MVS Bilateral pneumonia, possible aspiration. COVID-19 positive Diabetic ketoacidosis. Severe metabolic acidosis. Severe sepsis with acute encephalopathy and hypothermia. Acute toxic metabolic encephalopathy. Leukocytosis. Hemoconcentration. Elevated serum D-dimer. Acute kidney injury. Elevated serum transaminase. - awake proning stressed - continue HFNC - keep NPO re: aspiration and resume tube feeds - avoid BIPAP for now - use MDI's over nebulizers - continue airborne, contact and droplet isolation - continue to wean supplemental oxygen for target O2 sat's > 90% acutely - continue accuchecks resumed with glycemic control per Lantus and SSI (While critically ill target blood glucose of 140-180 mg/dL; avoid hypoglycemia) - continue aspiration precautions - continue bronchodilators with pulmonary hygiene per RT - wean per pulmonary driven protocols otherwise - continue to avoid nephrotoxins, adjust all medications fro CrCL and GFR - continue to avoid benzodiazepine's; reduce the possibility of delirium - complete antiinfectives per ID rec's - prn analgesia per pain score - Maintenance of sleep-wake cycle, avoid delirium - enteral nutritional support at goal rate as tolerated - G.I. & VTE prophylaxis withy heparin and Famotidine - PT/OT/ROM exercises - continue mobility protocols for pressure ulcer prophylaxis - Monitor hemodynamics closely - continue other care per attending / other consultants - Influenza and pneumonia vaccinations addressed per protocol - continue other care per attending / other consultants .... Re-evaluate in am & prn CONDITION: CRITICAL PROGNOSIS: GUARDED CODE STATUS: FULL CODE The high probability of a clinically significant, sudden or life-threatening deterioration of the [respiratory, cardiovascular, endocrine, renal & neurologic] system(s) required my full and direct attention, intervention and personal management. The aggregate critical care time was [31] minutes without o verlap. Time includes spent on; [x] Data Review and interpretation [x] Patient assessment and monitoring of vital signs [x] Documentation [x] Medication orders and management Subjective Date of service: 06/16/19 Principal diagnosis: Ac hypoxemic resp failure; Bob. PNA; PUI CVOVID-19; DKA; Severe sepsis Interval history: Patient is seen today for: Ac hypoxemic resp failure; Bob. pneumonia; PUI COVID- 19; DKA; Severe sepsis Seen and examined at bedside; 24hour events reviewed; nursing and respiratory care staff consulted; no adverse overnight events reported to me; resting peacefully in bed; still very weak; denies acute chest pains or palpitations; still SOB; No N/V/F/C; remains on HFNC at 80% FiO2 PUI?: Yes COVID19: Positive Objective Vital Signs - 12hr 06/16/19 06/16/19 06/16/19 07:01 08:00 09:01 Temperature 98.2 F Pulse Rate 90 85 83 Pulse Rate [ 100 H From Monitor] Respiratory 19 25 H 23 Rate Blood Pressure 149/95 137/93 151/106 O2 Sat by Pulse 97 96 97 Oximetry 06/16/19 06/16/19 06/16/19 10:00 11:00 12:00 Temperature 98.2 F Pulse Rate 91 H 88 91 H Pulse Rate [ 98 H From Monitor] Respiratory 21 21 18 Rate Blood Pressure 148/94 163/94 158/101 O2 Sat by Pulse 97 97 97 Oximetry 06/16/19 06/16/19 06/16/19 13:00 13:05 14:00 Temperature Pulse Rate 95 H 97 H 92 H Pulse Rate [ From Monitor] Respiratory 21 35 H Rate Blood Pressure 168/97 168/97 136/82 O2 Sat by Pulse 98 96 Oximetry 06/16/19 06/16/19 06/16/19 15:01 16:00 16:04 Temperature 99.2 F 99.2 F Pulse Rate 100 H 100 H Pulse Rate [ 106 H From Monitor] Respiratory 23 20 Rate Blood Pressure 162/92 169/100 O2 Sat by Pulse 95 96 Oximetry 06/16/19 06/16/19 06/16/19 17:00 18:00 18:02 Temperature Pulse Rate 111 H 105 H 114 H Pulse Rate [ From Monitor] Respiratory 25 H 21 Rate Blood Pressure 172/107 138/90 138/90 O2 Sat by Pulse 96 98 Oximetry Constitutional: no acute distress, other (middle aged AAF, normocephalic with mildly increased respiratory effort at rest) Eyes: non-icteric ENT: oropharynx moist, other (OGT in place, ETT in palce) Neck: supple, no lymphadenopathy, no JVD Effort: mildly labored Ascultation: Bilateral: diminished breath sounds, rhonchi Percussion: Bilateral: not dull Cardiovascular: irregular rhythm, other (S1,S2, no murmurs) Gastrointestinal: normoactive bowel sounds, soft, non-tender, non-distended Integumentary: normal Extremities: no cyanosis, no edema, pulses normal, no ischemia or petechiae Neurologic: normal mental status, non-focal exam, pupils equal and round, motor strength normal and Psychiatric: mood appropriate, affect normal CBC and BMP: 06/20/19 04:50 06/20/19 04:50 ABG, PT/INR, D-dimer: ABG ABG pH 7.488 pH Units (7.350-7.450) H 06/14/19 16:35 ABG pCO2 40.7 mm Hg 06/14/19 16:35 ABG pO2 66.1 mm Hg (80.0-90.0) L 06/14/19 16:35 ABG O2 Saturation 94.7 % (95.0-99.0) L 06/14/19 16:35 PT/INR, D-dimer D-Dimer 836.6 ng/mlDDU (0-234) H 06/15/19 04:00 Abnormal lab findings: Abnormal Labs 06/03/19 06/03/19 06/03/19 10:59 11:15 11:48 WBC RBC Hgb Hct MCH RDW Plt Count Lymph % (Auto) Seg Neutrophils % Seg Neuts % (Manual) Lymphocytes % (Manual) Monocytes % (Manual) Seg Neutrophils # Seg Neutrophils # Man Lymphocytes # (Manual) Monocytes # (Manual) D-Dimer ABG pH ABG pO2 ABG HCO3 ABG O2 Saturation ABG Base Excess ABG Hemoglobin VBG pH Oxyhemoglobin Sodium Potassium Chloride Carbon Dioxide BUN Creatinine Glucose POC Glucose 372 H Hemoglobin A1c Lactic Acid Calcium Phosphorus 11.70 H Magnesium 4.40 H Ferritin AST ALT Alkaline Phosphatase Lactate Dehydrogenase C-Reactive Protein Total Protein Albumin Triglycerides Cholesterol Urine Creatinine 37.4 H Urine Microalbumin 65.1 H Vancomycin Trough Salicylates Acetaminophen 06/03/19 06/03/19 06/03/19 11:51 11:51 11:51 WBC 23.3 H RBC 6.43 H Hgb 17.7 H Hct 59.9 H* MCH RDW 17.1 H Plt Count Lymph % (Auto) Seg Neutrophils % Seg Neuts % (Manual) 71.0 H Lymphocytes % (Manual) 11.0 L Monocytes % (Manual) 8.0 H Seg Neutrophils # Seg Neutrophils # Man 16.5 H Lymphocytes # (Manual) Monocytes # (Manual) 1.9 H D-Dimer ABG pH ABG pO2 ABG HCO3 ABG O2 Saturation ABG Base Excess ABG Hemoglobin VBG pH Oxyhemoglobin Sodium Potassium Chloride Carbon Dioxide 4 L* BUN 41 H Creatinine 1.8 H Glucose 636 H* POC Glucose Hemoglobin A1c Lactic Acid 3.20 H* Calcium 10.9 H Phosphorus Magnesium Ferritin AST 43 H ALT Alkaline Phosphatase 147 H Lactate Dehydrogenase 673 H C-Reactive Protein 14.70 H Total Protein 8.9 H Albumin Triglycerides Cholesterol Urine Creatinine Urine Microalbumin Vancomycin Trough Salicylates Acetaminophen 06/03/19 06/03/19 06/03/19 11:51 11:51 11:51 WBC RBC Hgb Hct MCH RDW Plt Count Lymph % (Auto) Seg Neutrophils % Seg Neuts % (Manual) Lymphocytes % (Manual) Monocytes % (Manual) Seg Neutrophils # Seg Neutrophils # Man Lymphocytes # (Manual) Monocytes # (Manual) D-Dimer ABG pH ABG pO2 ABG HCO3 ABG O2 Saturation ABG Base Excess ABG Hemoglobin VBG pH 6.901 L* Oxyhemoglobin Sodium Potassium Chloride Carbon Dioxide BUN Creatinine Glucose POC Glucose Hemoglobin A1c Lactic Acid Calcium Phosphorus Magnesium Ferritin AST ALT Alkaline Phosphatase Lactate Dehydrogenase C-Reactive Protein Total Protein Albumin Triglycerides Cholesterol Urine Creatinine Urine Microalbumin Vancomycin Trough Salicylates < 0.3 L Acetaminophen < 5.0 L 06/03/19 06/03/19 06/03/19 11:51 11:51 12:34 WBC RBC Hgb Hct MCH RDW Plt Count Lymph % (Auto) Seg Neutrophils % Seg Neuts % (Manual) Lymphocytes % (Manual) Monocytes % (Manual) Seg Neutrophils # Seg Neutrophils # Man Lymphocytes # (Manual) Monocytes # (Manual) D-Dimer 4311.60 H ABG pH ABG pO2 ABG HCO3 ABG O2 Saturation ABG Base Excess ABG Hemoglobin VBG pH Oxyhemoglobin Sodium Potassium Chloride Carbon Dioxide BUN Creatinine Glucose POC Glucose Hemoglobin A1c Lactic Acid 5.20 H* Calcium Phosphorus Magnesium Ferritin 1037.0 H AST ALT Alkaline Phosphatase Lactate Dehydrogenase C-Reactive Protein Total Protein Albumin Triglycerides Cholesterol Urine Creatinine Urine Microalbumin Vancomycin Trough Salicylates Acetaminophen 06/03/19 06/03/19 06/03/19 14:30 16:03 17:00 WBC RBC Hgb Hct MCH RDW Plt Count Lymph % (Auto) Seg Neutrophils % Seg Neuts % (Manual) Lymphocytes % (Manual) Monocytes % (Manual) Seg Neutrophils # Seg Neutrophils # Man Lymphocytes # (Manual) Monocytes # (Manual) D-Dimer ABG pH 6.880 L* ABG pO2 489.9 H ABG HCO3 7.1 L ABG O2 Saturation 99.6 H ABG Base Excess -26.1 L ABG Hemoglobin 16.2 H VBG pH Oxyhemoglobin Sodium Potassium Chloride Carbon Dioxide BUN Creatinine Glucose POC Glucose 335 H Hemoglobin A1c 9.6 H Lactic Acid Calcium Phosphorus Magnesium Ferritin AST ALT Alkaline Phosphatase Lactate Dehydrogenase C-Reactive Protein Total Protein Albumin Triglycerides Cholesterol Urine Creatinine Urine Microalbumin Vancomycin Trough Salicylates Acetaminophen 06/03/19 06/03/19 06/03/19 18:14 18:24 19:00 WBC RBC Hgb Hct MCH RDW Plt Count Lymph % (Auto) Seg Neutrophils % Seg Neuts % (Manual) Lymphocytes % (Manual) Monocytes % (Manual) Seg Neutrophils # Seg Neutrophils # Man Lymphocytes # (Manual) Monocytes # (Manual) D-Dimer ABG pH 7.057 L* ABG pO2 97.2 H ABG HCO3 5.5 L ABG O2 Saturation ABG Base Excess -23.0 L ABG Hemoglobin 18.1 H VBG pH Oxyhemoglobin 94.4 L Sodium Potassium Chloride Carbon Dioxide BUN Creatinine Glucose POC Glucose 285 H Hemoglobin A1c Lactic Acid 3.40 H* Calcium Phosphorus Magnesium Ferritin AST ALT Alkaline Phosphatase Lactate Dehydrogenase C-Reactive Protein Total Protein Albumin Triglycerides Cholesterol Urine Creatinine Urine Microalbumin Vancomycin Trough Salicylates Acetaminophen 06/03/19 06/03/19 06/03/19 19:00 19:00 19:52 WBC RBC Hgb Hct MCH RDW Plt Count Lymph % (Auto) Seg Neutrophils % Seg Neuts % (Manual) Lymphocytes % (Manual) Monocytes % (Manual) Seg Neutrophils # Seg Neutrophils # Man Lymphocytes # (Manual) Monocytes # (Manual) D-Dimer ABG pH ABG pO2 ABG HCO3 ABG O2 Saturation ABG Base Excess ABG Hemoglobin VBG pH Oxyhemoglobin Sodium 151 H Potassium Chloride 120.8 H Carbon Dioxide 6 L* BUN 33 H Creatinine 1.4 H Glucose 339 H POC Glucose 316 H Hemoglobin A1c Lactic Acid Calcium Phosphorus Magnesium Ferritin AST 47 H ALT Alkaline Phosphatase 130 H Lactate Dehydrogenase C-Reactive Protein Total Protein Albumin 3.7 L Triglycerides 424 H Cholesterol 250 H Urine Creatinine Urine Microalbumin Vancomycin Trough Salicylates Acetaminophen 06/03/19 06/03/19 06/03/19 20:21 20:21 21:01 WBC RBC Hgb Hct MCH RDW Plt Count Lymph % (Auto) Seg Neutrophils % Seg Neuts % (Manual) Lymphocytes % (Manual) Monocytes % (Manual) Seg Neutrophils # Seg Neutrophils # Man Lymphocytes # (Manual) Monocytes # (Manual) D-Dimer ABG pH ABG pO2 ABG HCO3 ABG O2 Saturation ABG Base Excess ABG Hemoglobin VBG pH Oxyhemoglobin Sodium 153 H Potassium Chloride 121.8 H Carbon Dioxide 6 L* BUN 34 H Creatinine 1.3 H Glucose 324 H POC Glucose 245 H Hemoglobin A1c Lactic Acid 3.10 H* Calcium Phosphorus Magnesium Ferritin AST ALT Alkaline Phosphatase Lactate Dehydrogenase C-Reactive Protein Total Protein Albumin Triglycerides Cholesterol Urine Creatinine Urine Microalbumin Vancomycin Trough Salicylates Acetaminophen 06/03/19 06/03/19 06/03/19 21:25 21:32 22:42 WBC RBC Hgb Hct MCH RDW Plt Count Lymph % (Auto) Seg Neutrophils % Seg Neuts % (Manual) Lymphocytes % (Manual) Monocytes % (Manual) Seg Neutrophils # Seg Neutrophils # Man Lymphocytes # (Manual) Monocytes # (Manual) D-Dimer ABG pH 7.172 L* ABG pO2 107.2 H ABG HCO3 5.2 L ABG O2 Saturation ABG Base Excess -20.5 L ABG Hemoglobin 17.3 H VBG pH Oxyhemoglobin Sodium 155 H Potassium 2.6 L* D Chloride 130.1 H Carbon Dioxide 5 L* BUN 24 H Creatinine Glucose 212 H POC Glucose 225 H Hemoglobin A1c Lactic Acid Calcium 5.8 L* D Phosphorus Magnesium Ferritin AST ALT Alkaline Phosphatase Lactate Dehydrogenase C-Reactive Protein Total Protein Albumin Triglycerides Cholesterol Urine Creatinine Urine Microalbumin Vancomycin Trough Salicylates Acetaminophen 06/03/19 06/04/19 06/04/19 23:32 00:04 01:25 WBC RBC Hgb Hct MCH RDW Plt Count Lymph % (Auto) Seg Neutrophils % Seg Neuts % (Manual) Lymphocytes % (Manual) Monocytes % (Manual) Seg Neutrophils # Seg Neutrophils # Man Lymphocytes # (Manual) Monocytes # (Manual) D-Dimer ABG pH ABG pO2 ABG HCO3 ABG O2 Saturation ABG Base Excess ABG Hemoglobin VBG pH Oxyhemoglobin Sodium 151 H 151 H Potassium 1.5 L* D Chloride 139.0 H 124.7 H Carbon Dioxide 3 L* 9 L* BUN 31 H Creatinine 0.2 L D Glucose 117 H 241 H POC Glucose 231 H Hemoglobin A1c Lactic Acid Calcium 3.1 L* D Phosphorus Magnesium Ferritin AST ALT Alkaline Phosphatase Lactate Dehydrogenase C-Reactive Protein Total Protein Albumin Triglycerides Cholesterol Urine Creatinine Urine Microalbumin Vancomycin Trough Salicylates Acetaminophen 06/04/19 06/04/19 06/04/19 01:34 02:45 03:21 WBC RBC Hgb Hct MCH RDW Plt Count Lymph % (Auto) Seg Neutrophils % Seg Neuts % (Manual) Lymphocytes % (Manual) Monocytes % (Manual) Seg Neutrophils # Seg Neutrophils # Man Lymphocytes # (Manual) Monocytes # (Manual) D-Dimer ABG pH ABG pO2 ABG HCO3 ABG O2 Saturation ABG Base Excess ABG Hemoglobin VBG pH Oxyhemoglobin Sodium Potassium Chloride Carbon Dioxide BUN Creatinine Glucose POC Glucose 194 H 189 H 183 H Hemoglobin A1c Lactic Acid Calcium Phosphorus Magnesium Ferritin AST ALT Alkaline Phosphatase Lactate Dehydrogenase C-Reactive Protein Total Protein Albumin Triglycerides Cholesterol Urine Creatinine Urine Microalbumin Vancomycin Trough Salicylates Acetaminophen 06/04/19 06/04/19 06/04/19 04:50 05:07 06:27 WBC RBC Hgb Hct MCH RDW Plt Count Lymph % (Auto) Seg Neutrophils % Seg Neuts % (Manual) Lymphocytes % (Manual) Monocytes % (Manual) Seg Neutrophils # Seg Neutrophils # Man Lymphocytes # (Manual) Monocytes # (Manual) D-Dimer ABG pH ABG pO2 76.5 L ABG HCO3 12.9 L ABG O2 Saturation ABG Base Excess -9.0 L ABG Hemoglobin VBG pH Oxyhemoglobin Sodium Potassium Chloride Carbon Dioxide BUN Creatinine Glucose POC Glucose 200 H 164 H Hemoglobin A1c Lactic Acid Calcium Phosphorus Magnesium Ferritin AST ALT Alkaline Phosphatase Lactate Dehydrogenase C-Reactive Protein Total Protein Albumin Triglycerides Cholesterol Urine Creatinine Urine Microalbumin Vancomycin Trough Salicylates Acetaminophen 06/04/19 06/04/19 06/04/19 07:00 07:00 07:00 WBC 13.4 H RBC 5.54 H Hgb 15.3 H Hct 46.1 H D MCH RDW Plt Count Lymph % (Auto) Seg Neutrophils % Seg Neuts % (Manual) 72.0 H Lymphocytes % (Manual) 6.0 L Monocytes % (Manual) Seg Neutrophils # Seg Neutrophils # Man 9.6 H Lymphocytes # (Manual) 0.8 L Monocytes # (Manual) D-Dimer ABG pH ABG pO2 ABG HCO3 ABG O2 Saturation ABG Base Excess ABG Hemoglobin VBG pH Oxyhemoglobin Sodium 158 H 156 H Potassium 2.7 L* D 2.6 L* Chloride 124.3 H 123.5 H Carbon Dioxide 11 L 11 L BUN 25 H 26 H Creatinine Glucose 192 H 190 H POC Glucose Hemoglobin A1c Lactic Acid Calcium Phosphorus Magnesium Ferritin AST 43 H ALT Alkaline Phosphatase Lactate Dehydrogenase 590 H C-Reactive Protein 22.70 H Total Protein Albumin 2.9 L Triglycerides Cholesterol Urine Creatinine Urine Microalbumin Vancomycin Trough Salicylates Acetaminophen 06/04/19 06/04/19 06/04/19 07:00 07:00 07:14 WBC RBC Hgb Hct MCH RDW Plt Count Lymph % (Auto) Seg Neutrophils % Seg Neuts % (Manual) Lymphocytes % (Manual) Monocytes % (Manual) Seg Neutrophils # Seg Neutrophils # Man Lymphocytes # (Manual) Monocytes # (Manual) D-Dimer 2050.33 H ABG pH ABG pO2 ABG HCO3 ABG O2 Saturation ABG Base Excess ABG Hemoglobin VBG pH Oxyhemoglobin Sodium Potassium Chloride Carbon Dioxide BUN Creatinine Glucose POC Glucose 176 H Hemoglobin A1c Lactic Acid Calcium Phosphorus Magnesium Ferritin 941.3 H AST ALT Alkaline Phosphatase Lactate Dehydrogenase C-Reactive Protein Total Protein Albumin Triglycerides Cholesterol Urine Creatinine Urine Microalbumin Vancomycin Trough Salicylates Acetaminophen 06/04/19 06/04/19 06/04/19 09:55 11:38 12:19 WBC RBC Hgb Hct MCH RDW Plt Count Lymph % (Auto) Seg Neutrophils % Seg Neuts % (Manual) Lymphocytes % (Manual) Monocytes % (Manual) Seg Neutrophils # Seg Neutrophils # Man Lymphocytes # (Manual) Monocytes # (Manual) D-Dimer ABG pH ABG pO2 ABG HCO3 ABG O2 Saturation ABG Base Excess ABG Hemoglobin VBG pH Oxyhemoglobin Sodium Potassium Chloride Carbon Dioxide BUN Creatinine Glucose POC Glucose 184 H 145 H 144 H Hemoglobin A1c Lactic Acid Calcium Phosphorus Magnesium Ferritin AST ALT Alkaline Phosphatase Lactate Dehydrogenase C-Reactive Protein Total Protein Albumin Triglycerides Cholesterol Urine Creatinine Urine Microalbumin Vancomycin Trough Salicylates Acetaminophen 06/04/19 06/04/19 06/04/19 13:35 14:29 15:06 WBC RBC Hgb Hct MCH RDW Plt Count Lymph % (Auto) Seg Neutrophils % Seg Neuts % (Manual) Lymphocytes % (Manual) Monocytes % (Manual) Seg Neutrophils # Seg Neutrophils # Man Lymphocytes # (Manual) Monocytes # (Manual) D-Dimer ABG pH ABG pO2 ABG HCO3 ABG O2 Saturation ABG Base Excess ABG Hemoglobin VBG pH Oxyhemoglobin Sodium 157 H Potassium 2.4 L* Chloride 121.4 H Carbon Dioxide 20 L D BUN 21 H Creatinine Glucose 176 H POC Glucose 151 H 142 H Hemoglobin A1c Lactic Acid Calcium Phosphorus Magnesium Ferritin AST ALT Alkaline Phosphatase Lactate Dehydrogenase C-Reactive Protein Total Protein Albumin Triglycerides Cholesterol Urine Creatinine Urine Microalbumin Vancomycin Trough Salicylates Acetaminophen 06/04/19 06/04/19 06/04/19 17:14 17:51 21:45 WBC RBC Hgb Hct MCH RDW Plt Count Lymph % (Auto) Seg Neutrophils % Seg Neuts % (Manual) Lymphocytes % (Manual) Monocytes % (Manual) Seg Neutrophils # Seg Neutrophils # Man Lymphocytes # (Manual) Monocytes # (Manual) D-Dimer ABG pH ABG pO2 ABG HCO3 ABG O2 Saturation ABG Base Excess ABG Hemoglobin VBG pH Oxyhemoglobin Sodium Potassium Chloride Carbon Dioxide BUN Creatinine Glucose POC Glucose 200 H 159 H 143 H Hemoglobin A1c Lactic Acid Calcium Phosphorus Magnesium Ferritin AST ALT Alkaline Phosphatase Lactate Dehydrogenase C-Reactive Protein Total Protein Albumin Triglycerides Cholesterol Urine Creatinine Urine Microalbumin Vancomycin Trough Salicylates Acetaminophen 06/04/19 06/04/19 06/04/19 22:20 22:21 23:27 WBC RBC Hgb Hct MCH RDW Plt Count Lymph % (Auto) Seg Neutrophils % Seg Neuts % (Manual) Lymphocytes % (Manual) Monocytes % (Manual) Seg Neutrophils # Seg Neutrophils # Man Lymphocytes # (Manual) Monocytes # (Manual) D-Dimer ABG pH 7.572 H ABG pO2 58.5 L ABG HCO3 ABG O2 Saturation ABG Base Excess 3.5 H ABG Hemoglobin 20.0 H VBG pH Oxyhemoglobin 94.6 L Sodium Potassium Chloride Carbon Dioxide BUN Creatinine Glucose POC Glucose 154 H 147 H Hemoglobin A1c Lactic Acid Calcium Phosphorus Magnesium Ferritin AST ALT Alkaline Phosphatase Lactate Dehydrogenase C-Reactive Protein Total Protein Albumin Triglycerides Cholesterol Urine Creatinine Urine Microalbumin Vancomycin Trough Salicylates Acetaminophen 06/05/19 06/05/19 06/05/19 00:27 01:16 02:20 WBC RBC Hgb Hct MCH RDW Plt Count Lymph % (Auto) Seg Neutrophils % Seg Neuts % (Manual) Lymphocytes % (Manual) Monocytes % (Manual) Seg Neutrophils # Seg Neutrophils # Man Lymphocytes # (Manual) Monocytes # (Manual) D-Dimer ABG pH ABG pO2 ABG HCO3 ABG O2 Saturation ABG Base Excess ABG Hemoglobin VBG pH Oxyhemoglobin Sodium Potassium Chloride Carbon Dioxide BUN Creatinine Glucose POC Glucose 124 H 126 H 156 H Hemoglobin A1c Lactic Acid Calcium Phosphorus Magnesium Ferritin AST ALT Alkaline Phosphatase Lactate Dehydrogenase C-Reactive Protein Total Protein Albumin Triglycerides Cholesterol Urine Creatinine Urine Microalbumin Vancomycin Trough Salicylates Acetaminophen 06/05/19 06/05/19 06/05/19 03:44 03:59 04:52 WBC RBC Hgb Hct MCH RDW Plt Count Lymph % (Auto) Seg Neutrophils % Seg Neuts % (Manual) Lymphocytes % (Manual) Monocytes % (Manual) Seg Neutrophils # Seg Neutrophils # Man Lymphocytes # (Manual) Monocytes # (Manual) D-Dimer ABG pH ABG pO2 ABG HCO3 ABG O2 Saturation ABG Base Excess ABG Hemoglobin VBG pH Oxyhemoglobin Sodium 155 H Potassium 3.0 L D Chloride 114.7 H Carbon Dioxide BUN Creatinine 0.6 L Glucose 136 H POC Glucose 143 H 141 H Hemoglobin A1c Lactic Acid Calcium Phosphorus Magnesium Ferritin AST ALT Alkaline Phosphatase Lactate Dehydrogenase C-Reactive Protein Total Protein Albumin Triglycerides Cholesterol Urine Creatinine Urine Microalbumin Vancomycin Trough Salicylates Acetaminophen 06/05/19 06/05/19 06/05/19 05:00 05:54 07:01 WBC RBC Hgb Hct MCH RDW Plt Count Lymph % (Auto) Seg Neutrophils % Seg Neuts % (Manual) Lymphocytes % (Manual) Monocytes % (Manual) Seg Neutrophils # Seg Neutrophils # Man Lymphocytes # (Manual) Monocytes # (Manual) D-Dimer ABG pH 7.621 H* ABG pO2 54.3 L ABG HCO3 29.8 H ABG O2 Saturation ABG Base Excess 8.8 H ABG Hemoglobin VBG pH Oxyhemoglobin Sodium Potassium Chloride Carbon Dioxide BUN Creatinine Glucose POC Glucose 155 H 145 H Hemoglobin A1c Lactic Acid Calcium Phosphorus Magnesium Ferritin AST ALT Alkaline Phosphatase Lactate Dehydrogenase C-Reactive Protein Total Protein Albumin Triglycerides Cholesterol Urine Creatinine Urine Microalbumin Vancomycin Trough Salicylates Acetaminophen 06/05/19 06/05/19 06/05/19 12:13 18:23 21:00 WBC RBC Hgb Hct MCH RDW Plt Count Lymph % (Auto) Seg Neutrophils % Seg Neuts % (Manual) Lymphocytes % (Manual) Monocytes % (Manual) Seg Neutrophils # Seg Neutrophils # Man Lymphocytes # (Manual) Monocytes # (Manual) D-Dimer ABG pH ABG pO2 ABG HCO3 ABG O2 Saturation ABG Base Excess ABG Hemoglobin VBG pH Oxyhemoglobin Sodium Potassium Chloride Carbon Dioxide BUN Creatinine Glucose POC Glucose 202 H 257 H Hemoglobin A1c Lactic Acid Calcium Phosphorus Magnesium Ferritin AST ALT Alkaline Phosphatase Lactate Dehydrogenase C-Reactive Protein Total Protein Albumin Triglycerides Cholesterol Urine Creatinine Urine Microalbumin Vancomycin Trough 4.2 L Salicylates Acetaminophen 06/05/19 06/06/19 06/06/19 23:55 04:16 04:37 WBC RBC Hgb Hct MCH RDW Plt Count Lymph % (Auto) Seg Neutrophils % Seg Neuts % (Manual) Lymphocytes % (Manual) Monocytes % (Manual) Seg Neutrophils # Seg Neutrophils # Man Lymphocytes # (Manual) Monocytes # (Manual) D-Dimer 1279.22 H ABG pH 7.600 H ABG pO2 62.4 L ABG HCO3 28.0 H ABG O2 Saturation ABG Base Excess 6.6 H ABG Hemoglobin 10.4 L VBG pH Oxyhemoglobin Sodium Potassium Chloride Carbon Dioxide BUN Creatinine Glucose POC Glucose 267 H Hemoglobin A1c Lactic Acid Calcium Phosphorus Magnesium Ferritin AST ALT Alkaline Phosphatase Lactate Dehydrogenase C-Reactive Protein Total Protein Albumin Triglycerides Cholesterol Urine Creatinine Urine Microalbumin Vancomycin Trough Salicylates Acetaminophen 06/06/19 06/06/19 06/06/19 04:37 04:37 04:37 WBC 12.2 H RBC 5.10 H Hgb Hct MCH 27 L RDW Plt Count Lymph % (Auto) Seg Neutrophils % Seg Neuts % (Manual) Lymphocytes % (Manual) Monocytes % (Manual) Seg Neutrophils # Seg Neutrophils # Man Lymphocytes # (Manual) Monocytes # (Manual) D-Dimer ABG pH ABG pO2 ABG HCO3 ABG O2 Saturation ABG Base Excess ABG Hemoglobin VBG pH Oxyhemoglobin Sodium 156 H Potassium 3.4 L Chloride 112.9 H Carbon Dioxide BUN 21 H Creatinine 0.6 L Glucose 332 H POC Glucose Hemoglobin A1c Lactic Acid Calcium Phosphorus Magnesium Ferritin 1649.0 H AST ALT Alkaline Phosphatase Lactate Dehydrogenase 578 H C-Reactive Protein 22.10 H Total Protein Albumin Triglycerides Cholesterol Urine Creatinine Urine Microalbumin Vancomycin Trough Salicylates Acetaminophen 06/06/19 06/06/19 06/06/19 05:45 11:55 12:21 WBC RBC Hgb Hct MCH RDW Plt Count Lymph % (Auto) Seg Neutrophils % Seg Neuts % (Manual) Lymphocytes % (Manual) Monocytes % (Manual) Seg Neutrophils # Seg Neutrophils # Man Lymphocytes # (Manual) Monocytes # (Manual) D-Dimer ABG pH 7.511 H ABG pO2 123.0 H ABG HCO3 29.7 H ABG O2 Saturation ABG Base Excess 6.4 H ABG Hemoglobin VBG pH Oxyhemoglobin Sodium Potassium Chloride Carbon Dioxide BUN Creatinine Glucose POC Glucose 303 H 281 H Hemoglobin A1c Lactic Acid Calcium Phosphorus Magnesium Ferritin AST ALT Alkaline Phosphatase Lactate Dehydrogenase C-Reactive Protein Total Protein Albumin Triglycerides Cholesterol Urine Creatinine Urine Microalbumin Vancomycin Trough Salicylates Acetaminophen 06/06/19 06/07/19 06/07/19 17:06 00:25 04:39 WBC RBC Hgb Hct MCH RDW Plt Count Lymph % (Auto) Seg Neutrophils % Seg Neuts % (Manual) Lymphocytes % (Manual) Monocytes % (Manual) Seg Neutrophils # Seg Neutrophils # Man Lymphocytes # (Manual) Monocytes # (Manual) D-Dimer ABG pH 7.507 H ABG pO2 46.4 L ABG HCO3 32.6 H ABG O2 Saturation 90.6 L ABG Base Excess 8.6 H ABG Hemoglobin VBG pH Oxyhemoglobin 89.2 L Sodium Potassium Chloride Carbon Dioxide BUN Creatinine Glucose POC Glucose 251 H 225 H Hemoglobin A1c Lactic Acid Calcium Phosphorus Magnesium Ferritin AST ALT Alkaline Phosphatase Lactate Dehydrogenase C-Reactive Protein Total Protein Albumin Triglycerides Cholesterol Urine Creatinine Urine Microalbumin Vancomycin Trough Salicylates Acetaminophen 06/07/19 06/07/19 06/07/19 04:43 04:43 04:43 WBC 13.6 H RBC 5.14 H Hgb Hct 43.4 H MCH 27 L RDW Plt Count Lymph % (Auto) Seg Neutrophils % Seg Neuts % (Manual) Lymphocytes % (Manual) Monocytes % (Manual) Seg Neutrophils # Seg Neutrophils # Man Lymphocytes # (Manual) Monocytes # (Manual) D-Dimer ABG pH ABG pO2 ABG HCO3 ABG O2 Saturation ABG Base Excess ABG Hemoglobin VBG pH Oxyhemoglobin Sodium 166 H* D Potassium 3.0 L Chloride 122.9 H Carbon Dioxide BUN 27 H Creatinine 0.5 L Glucose 265 H POC Glucose Hemoglobin A1c Lactic Acid Calcium Phosphorus Magnesium Ferritin AST ALT Alkaline Phosphatase Lactate Dehydrogenase C-Reactive Protein Total Protein Albumin Triglycerides 373 H Cholesterol Urine Creatinine Urine Microalbumin Vancomycin Trough Salicylates Acetaminophen 06/07/19 06/07/19 06/07/19 10:12 11:39 15:31 WBC RBC Hgb Hct MCH RDW Plt Count Lymph % (Auto) Seg Neutrophils % Seg Neuts % (Manual) Lymphocytes % (Manual) Monocytes % (Manual) Seg Neutrophils # Seg Neutrophils # Man Lymphocytes # (Manual) Monocytes # (Manual) D-Dimer ABG pH ABG pO2 ABG HCO3 ABG O2 Saturation ABG Base Excess ABG Hemoglobin VBG pH Oxyhemoglobin Sodium 163 H* 161 H* Potassium 3.1 L Chloride 117.7 H Carbon Dioxide BUN 22 H Creatinine 0.5 L Glucose 274 H POC Glucose 218 H Hemoglobin A1c Lactic Acid Calcium Phosphorus Magnesium Ferritin AST ALT Alkaline Phosphatase Lactate Dehydrogenase C-Reactive Protein Total Protein Albumin Triglycerides Cholesterol Urine Creatinine Urine Microalbumin Vancomycin Trough Salicylates Acetaminophen 06/07/19 06/08/19 06/08/19 17:16 00:04 03:45 WBC RBC Hgb Hct MCH RDW Plt Count Lymph % (Auto) Seg Neutrophils % Seg Neuts % (Manual) Lymphocytes % (Manual) Monocytes % (Manual) Seg Neutrophils # Seg Neutrophils # Man Lymphocytes # (Manual) Monocytes # (Manual) D-Dimer ABG pH 7.504 H ABG pO2 54.2 L ABG HCO3 32.3 H ABG O2 Saturation 93.7 L ABG Base Excess 8.4 H ABG Hemoglobin VBG pH Oxyhemoglobin 92.2 L Sodium Potassium Chloride Carbon Dioxide BUN Creatinine Glucose POC Glucose 284 H 283 H Hemoglobin A1c Lactic Acid Calcium Phosphorus Magnesium Ferritin AST ALT Alkaline Phosphatase Lactate Dehydrogenase C-Reactive Protein Total Protein Albumin Triglycerides Cholesterol Urine Creatinine Urine Microalbumin Vancomycin Trough Salicylates Acetaminophen 06/08/19 06/08/19 06/08/19 05:02 09:33 09:33 WBC RBC Hgb Hct MCH RDW Plt Count Lymph % (Auto) Seg Neutrophils % Seg Neuts % (Manual) Lymphocytes % (Manual) Monocytes % (Manual) Seg Neutrophils # Seg Neutrophils # Man Lymphocytes # (Manual) Monocytes # (Manual) D-Dimer 1319.18 H ABG pH ABG pO2 ABG HCO3 ABG O2 Saturation ABG Base Excess ABG Hemoglobin VBG pH Oxyhemoglobin Sodium Potassium Chloride Carbon Dioxide BUN Creatinine Glucose POC Glucose 291 H Hemoglobin A1c Lactic Acid Calcium Phosphorus Magnesium Ferritin 1274.0 H AST ALT Alkaline Phosphatase Lactate Dehydrogenase C-Reactive Protein Total Protein Albumin Triglycerides Cholesterol Urine Creatinine Urine Microalbumin Vancomycin Trough Salicylates Acetaminophen 06/08/19 06/08/19 06/08/19 09:33 09:33 17:46 WBC 16.0 H RBC Hgb Hct MCH 27 L RDW Plt Count Lymph % (Auto) Seg Neutrophils % Seg Neuts % (Manual) Lymphocytes % (Manual) Monocytes % (Manual) Seg Neutrophils # Seg Neutrophils # Man Lymphocytes # (Manual) Monocytes # (Manual) D-Dimer ABG pH ABG pO2 ABG HCO3 ABG O2 Saturation ABG Base Excess ABG Hemoglobin VBG pH Oxyhemoglobin Sodium 157 H Potassium 3.1 L Chloride 116.7 H Carbon Dioxide BUN 24 H Creatinine 0.5 L Glucose 351 H POC Glucose 309 H Hemoglobin A1c Lactic Acid Calcium Phosphorus 2.20 L Magnesium 2.60 H Ferritin AST ALT Alkaline Phosphatase 131 H Lactate Dehydrogenase 449 H C-Reactive Protein 9.70 H Total Protein 6.1 L Albumin 2.1 L Triglycerides Cholesterol Urine Creatinine Urine Microalbumin Vancomycin Trough Salicylates Acetaminophen 06/08/19 06/08/19 06/09/19 21:55 23:46 04:18 WBC RBC Hgb Hct MCH RDW Plt Count Lymph % (Auto) Seg Neutrophils % Seg Neuts % (Manual) Lymphocytes % (Manual) Monocytes % (Manual) Seg Neutrophils # Seg Neutrophils # Man Lymphocytes # (Manual) Monocytes # (Manual) D-Dimer ABG pH 7.480 H ABG pO2 70.9 L ABG HCO3 32.9 H ABG O2 Saturation ABG Base Excess 8.4 H ABG Hemoglobin 10.3 L VBG pH Oxyhemoglobin 94.8 L Sodium 151 H Potassium 3.3 L Chloride 112.7 H Carbon Dioxide 31 H BUN 24 H Creatinine 0.5 L Glucose 321 H POC Glucose 331 H Hemoglobin A1c Lactic Acid Calcium Phosphorus Magnesium Ferritin AST ALT Alkaline Phosphatase Lactate Dehydrogenase C-Reactive Protein Total Protein Albumin Triglycerides Cholesterol Urine Creatinine Urine Microalbumin Vancomycin Trough Salicylates Acetaminophen 06/09/19 06/09/19 06/09/19 05:35 07:34 07:34 WBC 14.2 H RBC Hgb Hct MCH 27 L RDW Plt Count Lymph % (Auto) Seg Neutrophils % Seg Neuts % (Manual) Lymphocytes % (Manual) Monocytes % (Manual) Seg Neutrophils # Seg Neutrophils # Man Lymphocytes # (Manual) Monocytes # (Manual) D-Dimer ABG pH ABG pO2 ABG HCO3 ABG O2 Saturation ABG Base Excess ABG Hemoglobin VBG pH Oxyhemoglobin Sodium 153 H Potassium 3.0 L Chloride 113.6 H Carbon Dioxide BUN 26 H Creatinine 0.5 L Glucose 306 H POC Glucose 264 H Hemoglobin A1c Lactic Acid Calcium Phosphorus Magnesium Ferritin AST ALT Alkaline Phosphatase Lactate Dehydrogenase 411 H C-Reactive Protein 6.00 H Total Protein Albumin Triglycerides 304 H Cholesterol Urine Creatinine Urine Microalbumin Vancomycin Trough Salicylates Acetaminophen 06/09/19 06/09/19 06/09/19 07:34 07:34 18:29 WBC RBC Hgb Hct MCH RDW Plt Count Lymph % (Auto) Seg Neutrophils % Seg Neuts % (Manual) Lymphocytes % (Manual) Monocytes % (Manual) Seg Neutrophils # Seg Neutrophils # Man Lymphocytes # (Manual) Monocytes # (Manual) D-Dimer 991.99 H ABG pH ABG pO2 ABG HCO3 ABG O2 Saturation ABG Base Excess ABG Hemoglobin VBG pH Oxyhemoglobin Sodium Potassium Chloride Carbon Dioxide BUN Creatinine Glucose POC Glucose 226 H Hemoglobin A1c Lactic Acid Calcium Phosphorus Magnesium Ferritin 1078.0 H AST ALT Alkaline Phosphatase Lactate Dehydrogenase C-Reactive Protein Total Protein Albumin Triglycerides Cholesterol Urine Creatinine Urine Microalbumin Vancomycin Trough Salicylates Acetaminophen 06/09/19 06/09/19 06/10/19 19:22 23:43 04:05 WBC RBC Hgb Hct MCH RDW Plt Count Lymph % (Auto) Seg Neutrophils % Seg Neuts % (Manual) Lymphocytes % (Manual) Monocytes % (Manual) Seg Neutrophils # Seg Neutrophils # Man Lymphocytes # (Manual) Monocytes # (Manual) D-Dimer ABG pH 7.472 H ABG pO2 63.0 L ABG HCO3 31.3 H ABG O2 Saturation 94.5 L ABG Base Excess 6.9 H ABG Hemoglobin VBG pH Oxyhemoglobin 93.0 L Sodium Potassium Chloride 110.1 H Carbon Dioxide BUN 20 H Creatinine 0.4 L Glucose 237 H POC Glucose 177 H Hemoglobin A1c Lactic Acid Calcium Phosphorus Magnesium Ferritin AST ALT Alkaline Phosphatase Lactate Dehydrogenase C-Reactive Protein Total Protein Albumin Triglycerides Cholesterol Urine Creatinine Urine Microalbumin Vancomycin Trough Salicylates Acetaminophen 06/10/19 06/10/19 06/10/19 06:28 12:30 18:08 WBC RBC Hgb Hct MCH RDW Plt Count Lymph % (Auto) Seg Neutrophils % Seg Neuts % (Manual) Lymphocytes % (Manual) Monocytes % (Manual) Seg Neutrophils # Seg Neutrophils # Man Lymphocytes # (Manual) Monocytes # (Manual) D-Dimer ABG pH ABG pO2 ABG HCO3 ABG O2 Saturation ABG Base Excess ABG Hemoglobin VBG pH Oxyhemoglobin Sodium Potassium Chloride Carbon Dioxide BUN Creatinine Glucose POC Glucose 172 H 166 H 172 H Hemoglobin A1c Lactic Acid Calcium Phosphorus Magnesium Ferritin AST ALT Alkaline Phosphatase Lactate Dehydrogenase C-Reactive Protein Total Protein Albumin Triglycerides Cholesterol Urine Creatinine Urine Microalbumin Vancomycin Trough Salicylates Acetaminophen 06/10/19 06/10/19 06/10/19 23:53 Unknown Unknown WBC 13.7 H RBC Hgb Hct MCH RDW Plt Count 84 L Lymph % (Auto) Seg Neutrophils % Seg Neuts % (Manual) Lymphocytes % (Manual) Monocytes % (Manual) Seg Neutrophils # Seg Neutrophils # Man Lymphocytes # (Manual) Monocytes # (Manual) D-Dimer ABG pH ABG pO2 ABG HCO3 ABG O2 Saturation ABG Base Excess ABG Hemoglobin VBG pH Oxyhemoglobin Sodium 148 H Potassium 3.3 L Chloride 111.5 H Carbon Dioxide BUN 20 H Creatinine 0.4 L Glucose 185 H POC Glucose 186 H Hemoglobin A1c Lactic Acid Calcium Phosphorus Magnesium Ferritin AST ALT Alkaline Phosphatase Lactate Dehydrogenase C-Reactive Protein Total Protein Albumin Triglycerides Cholesterol Urine Creatinine Urine Microalbumin Vancomycin Trough Salicylates Acetaminophen 06/11/19 06/11/19 06/11/19 04:31 04:31 04:31 WBC RBC Hgb Hct MCH RDW Plt Count Lymph % (Auto) Seg Neutrophils % Seg Neuts % (Manual) Lymphocytes % (Manual) Monocytes % (Manual) Seg Neutrophils # Seg Neutrophils # Man Lymphocytes # (Manual) Monocytes # (Manual) D-Dimer 1206.09 H ABG pH ABG pO2 ABG HCO3 ABG O2 Saturation ABG Base Excess ABG Hemoglobin VBG pH Oxyhemoglobin Sodium 146 H Potassium 3.3 L Chloride 109.4 H Carbon Dioxide BUN Creatinine 0.5 L Glucose 186 H POC Glucose Hemoglobin A1c Lactic Acid Calcium Phosphorus Magnesium Ferritin 905.9 H AST ALT Alkaline Phosphatase Lactate Dehydrogenase 417 H C-Reactive Protein 3.30 H Total Protein Albumin Triglycerides Cholesterol Urine Creatinine Urine Microalbumin Vancomycin Trough Salicylates Acetaminophen 06/11/19 06/11/19 06/11/19 04:31 05:35 11:41 WBC 17.0 H RBC Hgb Hct MCH 27 L RDW Plt Count Lymph % (Auto) Seg Neutrophils % Seg Neuts % (Manual) Lymphocytes % (Manual) Monocytes % (Manual) Seg Neutrophils # Seg Neutrophils # Man Lymphocytes # (Manual) Monocytes # (Manual) D-Dimer ABG pH ABG pO2 ABG HCO3 ABG O2 Saturation ABG Base Excess ABG Hemoglobin VBG pH Oxyhemoglobin Sodium Potassium Chloride Carbon Dioxide BUN Creatinine Glucose POC Glucose 151 H 209 H Hemoglobin A1c Lactic Acid Calcium Phosphorus Magnesium Ferritin AST ALT Alkaline Phosphatase Lactate Dehydrogenase C-Reactive Protein Total Protein Albumin Triglycerides Cholesterol Urine Creatinine Urine Microalbumin Vancomycin Trough Salicylates Acetaminophen 06/11/19 06/11/19 06/12/19 17:27 23:52 03:58 WBC 14.9 H RBC Hgb Hct MCH RDW Plt Count Lymph % (Auto) Seg Neutrophils % Seg Neuts % (Manual) 72.0 H Lymphocytes % (Manual) 13.0 L Monocytes % (Manual) 13.0 H Seg Neutrophils # Seg Neutrophils # Man 10.7 H Lymphocytes # (Manual) Monocytes # (Manual) 1.9 H D-Dimer ABG pH ABG pO2 ABG HCO3 ABG O2 Saturation ABG Base Excess ABG Hemoglobin VBG pH Oxyhemoglobin Sodium Potassium Chloride Carbon Dioxide BUN Creatinine Glucose POC Glucose 181 H 223 H Hemoglobin A1c Lactic Acid Calcium Phosphorus Magnesium Ferritin AST ALT Alkaline Phosphatase Lactate Dehydrogenase C-Reactive Protein Total Protein Albumin Triglycerides Cholesterol Urine Creatinine Urine Microalbumin Vancomycin Trough Salicylates Acetaminophen 06/12/19 06/12/19 06/12/19 03:58 04:44 10:30 WBC RBC Hgb Hct MCH RDW Plt Count Lymph % (Auto) Seg Neutrophils % Seg Neuts % (Manual) Lymphocytes % (Manual) Monocytes % (Manual) Seg Neutrophils # Seg Neutrophils # Man Lymphocytes # (Manual) Monocytes # (Manual) D-Dimer ABG pH 7.456 H ABG pO2 ABG HCO3 32.7 H ABG O2 Saturation ABG Base Excess 7.7 H ABG Hemoglobin VBG pH Oxyhemoglobin Sodium Potassium 3.4 L Chloride Carbon Dioxide BUN Creatinine 0.4 L Glucose 242 H POC Glucose 203 H Hemoglobin A1c Lactic Acid Calcium Phosphorus Magnesium Ferritin AST 103 H ALT 101 H Alkaline Phosphatase Lactate Dehydrogenase C-Reactive Protein Total Protein 5.9 L Albumin 2.3 L Triglycerides Cholesterol Urine Creatinine Urine Microalbumin Vancomycin Trough Salicylates Acetaminophen 06/12/19 06/13/19 06/13/19 12:01 00:03 02:51 WBC RBC Hgb Hct MCH RDW Plt Count Lymph % (Auto) Seg Neutrophils % Seg Neuts % (Manual) Lymphocytes % (Manual) Monocytes % (Manual) Seg Neutrophils # Seg Neutrophils # Man Lymphocytes # (Manual) Monocytes # (Manual) D-Dimer ABG pH ABG pO2 ABG HCO3 ABG O2 Saturation ABG Base Excess ABG Hemoglobin VBG pH Oxyhemoglobin Sodium Potassium Chloride Carbon Dioxide BUN Creatinine Glucose POC Glucose 178 H 127 H Hemoglobin A1c Lactic Acid Calcium Phosphorus Magnesium Ferritin AST ALT Alkaline Phosphatase Lactate Dehydrogenase 807 H C-Reactive Protein 3.40 H Total Protein Albumin Triglycerides Cholesterol Urine Creatinine Urine Microalbumin Vancomycin Trough Salicylates Acetaminophen 06/13/19 06/13/19 06/13/19 05:17 09:23 09:23 WBC RBC Hgb Hct MCH RDW Plt Count Lymph % (Auto) Seg Neutrophils % Seg Neuts % (Manual) Lymphocytes % (Manual) Monocytes % (Manual) Seg Neutrophils # Seg Neutrophils # Man Lymphocytes # (Manual) Monocytes # (Manual) D-Dimer 1401.68 H ABG pH ABG pO2 ABG HCO3 ABG O2 Saturation ABG Base Excess ABG Hemoglobin VBG pH Oxyhemoglobin Sodium Potassium Chloride Carbon Dioxide BUN Creatinine Glucose POC Glucose 161 H Hemoglobin A1c Lactic Acid Calcium Phosphorus Magnesium Ferritin 1942.0 H AST ALT Alkaline Phosphatase Lactate Dehydrogenase C-Reactive Protein Total Protein Albumin Triglycerides Cholesterol Urine Creatinine Urine Microalbumin Vancomycin Trough Salicylates Acetaminophen 06/13/19 06/13/19 06/14/19 12:03 18:17 00:03 WBC RBC Hgb Hct MCH RDW Plt Count Lymph % (Auto) Seg Neutrophils % Seg Neuts % (Manual) Lymphocytes % (Manual) Monocytes % (Manual) Seg Neutrophils # Seg Neutrophils # Man Lymphocytes # (Manual) Monocytes # (Manual) D-Dimer ABG pH ABG pO2 ABG HCO3 ABG O2 Saturation ABG Base Excess ABG Hemoglobin VBG pH Oxyhemoglobin Sodium Potassium Chloride Carbon Dioxide BUN Creatinine Glucose POC Glucose 147 H 172 H 168 H Hemoglobin A1c Lactic Acid Calcium Phosphorus Magnesium Ferritin AST ALT Alkaline Phosphatase Lactate Dehydrogenase C-Reactive Protein Total Protein Albumin Triglycerides Cholesterol Urine Creatinine Urine Microalbumin Vancomycin Trough Salicylates Acetaminophen 06/14/19 06/14/19 06/14/19 05:43 12:22 14:44 WBC 14.0 H RBC 5.86 H Hgb 16.2 H D Hct 49.3 H D MCH RDW Plt Count Lymph % (Auto) Seg Neutrophils % Seg Neuts % (Manual) 81.0 H Lymphocytes % (Manual) 10.0 L Monocytes % (Manual) Seg Neutrophils # Seg Neutrophils # Man 11.3 H Lymphocytes # (Manual) Monocytes # (Manual) 1.0 H D-Dimer ABG pH ABG pO2 ABG HCO3 ABG O2 Saturation ABG Base Excess ABG Hemoglobin VBG pH Oxyhemoglobin Sodium Potassium Chloride Carbon Dioxide BUN Creatinine Glucose POC Glucose 178 H 218 H Hemoglobin A1c Lactic Acid Calcium Phosphorus Magnesium Ferritin AST ALT Alkaline Phosphatase Lactate Dehydrogenase C-Reactive Protein Total Protein Albumin Triglycerides Cholesterol Urine Creatinine Urine Microalbumin Vancomycin Trough Salicylates Acetaminophen 06/14/19 06/14/19 06/14/19 14:44 16:35 18:01 WBC RBC Hgb Hct MCH RDW Plt Count Lymph % (Auto) Seg Neutrophils % Seg Neuts % (Manual) Lymphocytes % (Manual) Monocytes % (Manual) Seg Neutrophils # Seg Neutrophils # Man Lymphocytes # (Manual) Monocytes # (Manual) D-Dimer ABG pH 7.488 H ABG pO2 66.1 L ABG HCO3 30.2 H ABG O2 Saturation 94.7 L ABG Base Excess 6.3 H ABG Hemoglobin VBG pH Oxyhemoglobin 93.3 L Sodium Potassium 3.4 L Chloride Carbon Dioxide BUN Creatinine 0.3 L Glucose 296 H POC Glucose 215 H Hemoglobin A1c Lactic Acid Calcium Phosphorus Magnesium Ferritin AST ALT Alkaline Phosphatase Lactate Dehydrogenase C-Reactive Protein Total Protein Albumin Triglycerides Cholesterol Urine Creatinine Urine Microalbumin Vancomycin Trough Salicylates Acetaminophen 06/15/19 06/15/19 06/15/19 00:34 04:00 04:00 WBC RBC Hgb Hct MCH RDW Plt Count Lymph % (Auto) Seg Neutrophils % Seg Neuts % (Manual) Lymphocytes % (Manual) Monocytes % (Manual) Seg Neutrophils # Seg Neutrophils # Man Lymphocytes # (Manual) Monocytes # (Manual) D-Dimer 836.6 H ABG pH ABG pO2 ABG HCO3 ABG O2 Saturation ABG Base Excess ABG Hemoglobin VBG pH Oxyhemoglobin Sodium Potassium Chloride Carbon Dioxide BUN Creatinine Glucose POC Glucose 229 H Hemoglobin A1c Lactic Acid Calcium Phosphorus Magnesium Ferritin 908.8 H AST ALT Alkaline Phosphatase Lactate Dehydrogenase C-Reactive Protein Total Protein Albumin Triglycerides Cholesterol Urine Creatinine Urine Microalbumin Vancomycin Trough Salicylates Acetaminophen 06/15/19 06/15/19 06/15/19 04:00 04:00 06:24 WBC 15.6 H RBC Hgb Hct MCH 27 L RDW Plt Count Lymph % (Auto) 10.9 L Seg Neutrophils % 84.1 H Seg Neuts % (Manual) Lymphocytes % (Manual) Monocytes % (Manual) Seg Neutrophils # 13.1 H Seg Neutrophils # Man Lymphocytes # (Manual) Monocytes # (Manual) D-Dimer ABG pH ABG pO2 ABG HCO3 ABG O2 Saturation ABG Base Excess ABG Hemoglobin VBG pH Oxyhemoglobin Sodium Potassium 3.3 L Chloride Carbon Dioxide 31 H D BUN Creatinine 0.4 L Glucose 199 H POC Glucose 192 H Hemoglobin A1c Lactic Acid Calcium Phosphorus Magnesium Ferritin AST ALT Alkaline Phosphatase Lactate Dehydrogenase 386 H C-Reactive Protein 17.00 H Total Protein Albumin Triglycerides Cholesterol Urine Creatinine Urine Microalbumin Vancomycin Trough Salicylates Acetaminophen 06/15/19 06/15/19 06/15/19 12:05 17:02 21:00 WBC RBC Hgb Hct MCH RDW Plt Count Lymph % (Auto) Seg Neutrophils % Seg Neuts % (Manual) Lymphocytes % (Manual) Monocytes % (Manual) Seg Neutrophils # Seg Neutrophils # Man Lymphocytes # (Manual) Monocytes # (Manual) D-Dimer ABG pH ABG pO2 ABG HCO3 ABG O2 Saturation ABG Base Excess ABG Hemoglobin VBG pH Oxyhemoglobin Sodium Potassium Chloride Carbon Dioxide BUN Creatinine Glucose POC Glucose 271 H 239 H 211 H Hemoglobin A1c Lactic Acid Calcium Phosphorus Magnesium Ferritin AST ALT Alkaline Phosphatase Lactate Dehydrogenase C-Reactive Protein Total Protein Albumin Triglycerides Cholesterol Urine Creatinine Urine Microalbumin Vancomycin Trough Salicylates Acetaminophen 06/16/19 06/16/19 06/16/19 00:13 05:16 05:16 WBC 12.4 H RBC Hgb Hct MCH RDW Plt Count Lymph % (Auto) Seg Neutrophils % Seg Neuts % (Manual) Lymphocytes % (Manual) Monocytes % (Manual) Seg Neutrophils # Seg Neutrophils # Man Lymphocytes # (Manual) Monocytes # (Manual) D-Dimer ABG pH ABG pO2 ABG HCO3 ABG O2 Saturation ABG Base Excess ABG Hemoglobin VBG pH Oxyhemoglobin Sodium Potassium 3.4 L Chloride Carbon Dioxide BUN Creatinine 0.5 L Glucose 215 H POC Glucose 230 H Hemoglobin A1c Lactic Acid Calcium Phosphorus Magnesium Ferritin AST ALT Alkaline Phosphatase Lactate Dehydrogenase C-Reactive Protein Total Protein Albumin Triglycerides Cholesterol Urine Creatinine Urine Microalbumin Vancomycin Trough Salicylates Acetaminophen 06/16/19 06/16/19 08:05 12:17 WBC RBC Hgb Hct MCH RDW Plt Count Lymph % (Auto) Seg Neutrophils % Seg Neuts % (Manual) Lymphocytes % (Manual) Monocytes % (Manual) Seg Neutrophils # Seg Neutrophils # Man Lymphocytes # (Manual) Monocytes # (Manual) D-Dimer ABG pH ABG pO2 ABG HCO3 ABG O2 Saturation ABG Base Excess ABG Hemoglobin VBG pH Oxyhemoglobin Sodium Potassium Chloride Carbon Dioxide BUN Creatinine Glucose POC Glucose 220 H 195 H Hemoglobin A1c Lactic Acid Calcium Phosphorus Magnesium Ferritin AST ALT Alkaline Phosphatase Lactate Dehydrogenase C-Reactive Protein Total Protein Albumin Triglycerides Cholesterol Urine Creatinine Urine Microalbumin Vancomycin Trough Salicylates Acetaminophen Allied health notes reviewed: nursing
[2019-06-16] MEDS: QUEtiapine 25 MG TAB PO SCH (21:17)
[2019-06-17] MEDS: INSULIN REGULAR, HUMAN 100 UNITS/1 ML SUB-Q SCH ×4 (00:35→17:41)
[2019-06-17] MEDS: hydrALAZINE 20 MG/1 ML INJ IV PRN (02:25)
[2019-06-17] MEDS: LOSARTAN 50 MG TAB PO SCH (09:32)
[2019-06-17] MEDS: SENNOSIDES 8.6 MG TAB PO SCH ×2 (09:32→21:52)
[2019-06-17] MEDS: FAMOTIDINE 20 MG TAB PO SCH ×2 (09:32→21:52)
[2019-06-17] MEDS: amLODIPine 5 MG TAB PO SCH (09:33)
[2019-06-17] MEDS: HEPARIN 5,000 UNIT/1 ML VIAL SUB-Q SCH ×2 (09:34→21:51)
--- NOTE | 2019-06-17 10:56 | Progress Note ---
Assessment and Plan Cultures: Blood culture 06/03/2019 Micrococcus 1 of 4 Urine culture 06/03/2019 no growth today Assessment: 48 year old female with history of diabetes, hypertension admitted on 06/03/2019 due to acute altered mental status and shortness of breath, recently returned back from [place]: #Severe sepsis: improved. #Bilateral pneumonia secondary to COVID-19: S/P plaquenil. Off abx. #Acute hypoxemic respiratory failure/ARDS: extubated 06/13/2019. #Acute encephalopathy: Likely due to #1 and high sodium #SHARITA: improved. #Diabetes with DKA #Hypernatremia per IMS, better #Micrococcus in blood culture: 1 of 4 likely a contaminant Recommendations: continue supportive care and isolation Mayo Medina MD, FACP [facility] [place] C: [phone] O: [phone] F: [phone] Subjective Date of service: 06/17/19 Principal diagnosis: Ac hypoxemic resp failure; Bob. PNA; PUI CVOVID-19; DKA; Severe sepsis Interval history: No fever. Remains on high flow oxygen by SD. PUI?: Yes COVID19: Positive Objective - Exam Narrative Exam: Physical Exam (reviewed in chart due to PPE conservation) Constitutional: limited due to PPE conservation strategy Head, Ears, Nose: limited due to PPE conservation strategy Eyes: limited due to PPE conservation strategy Neck: limited due to PPE conservation strategy Oral: limited due to PPE conservation strategy Cardiovascular: limited due to PPE conservation strategy Respiratory: limited due to PPE conservation strategy GI: limited due to PPE conservation strategy Musculoskeletal: limited due to PPE conservation strategy Skin: limited due to PPE conservation strategy Hem/Lymphatic: limited due to PPE conservation strategy Psych: limited due to PPE conservation strategy Neurological: limited due to PPE conservation strategy - Constitutional Vitals: Vital Signs Temp Pulse Resp BP Pulse Ox 98.4 F 94 H 18 160/96 97 06/17/19 07:58 06/17/19 09:33 06/17/19 08:00 06/17/19 09:33 06/17/19 08:00 Temperature -Last 24 Hours Temperature 98.4 F Temperature 98.7 F Temperature 98.6 F Temperature 99.6 F Temperature 99.2 F Temperature 99.2 F Temperature 98.2 F - Labs CBC & Chem 7: 06/16/19 05:16 06/16/19 05:16 Labs: Abnormal lab results 06/16/19 06/16/19 06/16/19 Range/Units 08:05 12:17 16:44 POC Glucose 220 H 195 H 223 H (70-105) 06/17/19 06/17/19 Range/Units 00:07 05:42 POC Glucose 201 H 191 H (70-105)
[2019-06-17] MEDS ORDERED: INSULIN GLARGINE 100 UNITS/ML SUB-Q SCH ×2 (15:00→22:00)
--- NOTE | 2019-06-17 17:01 | Progress Note ---
Assessment and Plan Assessment and plan: Mrs. Tomas is a 48-year-old female with a history of hypertension, type 2 diabetes mellitus events with altered mental status. She arrived per EMS. Last known time normal 10 PM on night prior to admission. Patient is nonverbal. History obtained from paramedics and electronic medical record. Patient had been ill with fever cough for the past several days. She recently returned back from [place]. EMS discovered patient to be altered with work of breathing. Patient is nonverbal. She was not moving her right side. She is hypoxic at 77% room air. Blood pressure was 140/97. Blood sugar was elevated fingerstick. Hx obtained from [facility] realized that patient was not speaking 4 AM. Found her later breathing really heavy. Unresponsive. When she came back from [place] last Saturday. She had high fever. Her doctor ordered test for COVID-19. Dr. Rausch her PCP informed patient that she tested negative. She went to [place] to celebrate her mother's birthday. On admission she was noted to be in DKA and started on DKA protocol. She was al so intubated and on full mechanical ventilatory support. Diagnostic work-up so far EKG shows sinus tachycardia with MAT CT head no acute intracranial process CT cervical spine patchy groundglass consolidative airspace disease right mid to lower lung Mrs. Tomas presents with altered mental status hypoxia. She required mechanical ventilation for oxygenation and airway control. Initially was not moving her right side. With oxygen supplementation she began to move both of her arms. She continued to be nonverbal. She did not follow commands prior to intubation. With CT chest findings and history of fever I strongly suspect COVID 19. Although she previously tested negative there is significant support of false negative test so we will retest. survey form was filled out in the ED by the ED physician through the [facility] department of health as a person under investigation for COVID 19. Patient returned 1 week ago from [place] after celebrating her mother's birthday. * COVID 19 test results came back positive has been advised to forego quarantine himself. COVID 19 Induced Pneumonia Acute hypoxic respiratory failure mild on mechanical ventilation Hypernatremia-remains elevated will increase free water. Hypertension Acute metabolic encephalopathy Right upper extremity weakness now resolved Pneumonia Hypokalemia Leukocytosis Sepsis secondary to pneumonia-with hypothermia Severe metabolic acidosis DKA-resolved Diabetes mellitus with uncontrolled blood sugar Plan 06/04: Remains on full mechanical support. Patient with respiratory alkalosis noted. Adjustment made to the ventilator to decrease the rate. Will replace potassium as hypokalemia still persist. Hypernatremia gradually improving will adjust free water. Patient's anion gap is finally closed will transition to sliding scale coverage with Lantus. Anticipate weaning trial today if patient is amendable to it. Oxygen at requirements per vent settings appears to be improving 06/05: Leukocytosis improving although patient still hypoxic on the ventilator. Awaiting COVID 19 testing results. In addition continue antibiotics for broad- spectrum coverage. Will adjust insulin for better blood sugar control. 06/06: We will increase free water to 300 cc every 4 hours. We will also obtain consultation from technology intern. Otherwise continue current therapy. Also noted to have diastolic hypertension will adjust blood pressure medications. Initiated home meds. 06/07: Sodium gradually improving, will adjust free water to 350 while awaiting todays lab and technology intern. Patient still with non purposeful movement. Will discuss with ID about possible trial drug Ivermectin. Adjust basal insulin to 40 units BID 06/08: ID and pulmonary considering trial of the new medication ivermectin as patient's inflammatory markers went back up. Sodium mildly elevated. In addition to blood sugar. Discontinued D5 water which could be leading to elevated blood sugar. Will adjust free water to 400 every 4 hours. Nephrology following 06/09: Continue supportive care, Continue Management per ID and Critical care team. 06/10 weaning in progress, on D5W for correcting the hypernatremia. Potassium supplemented 06/12/19 probable extubation tomorrow 06/13/19--Extubated today 06/14/19 For transfer to floor 06/14: Patient unable to Transfer to the floor as she became hypoxic requiring H ighflow oxygen, Low potassium noted, will replace, monitor Blood glucose. Exam limited due to limited PPE. Inflammatory markers improving. 06/15: Still concern for possible decompensation. Will continue on ICU status at this time. Aspiration precautions. Continue high flow. Replace electrolytes as needed. 06/16: Discussed with Nursery Nurse, patient still on High flow oxygen and failed swallow evaluation yesterday. We will continue to follow. We will continue ICU care at this time. A Dobbhoff has been placed for nutritional support. I have updated the patient's and patient's improvement so far. Nursery Nurse and infectious disease consult input noted EKG reviewed no evidence of atrial fibrillation will repeat. Replace potassium DKA protocol with insulin-will be discontinued f/u COVID test - pending Continue COVID isolation precautions per [facility] protocol S/P Plaquenil and azithromycin X 5 DAYS Obtain serial Ferritin, LDH, D-Dimer, CRP every 48h Empiric antibiotic coverage, obtain blood cultures and urine cultures and sputum cultures. Wean from vent as tolerated defer to home economics expert We will monitor EKG for any visualization of the atrial fibrillation. If persist will obtain cardiology consult. DVT and GI prophylaxis The high probability of a clinically significant, sudden or life threatening deterioration of the [pulmonary, neuro,] system(s) required my full and direct attention, intervention and personal management. The aggregate critical care time was [32] minutes. This time is in addition to time spent performing reported procedures but includes the following: [x] Data Review and interpretation [x] Patient assessment and monitoring of vital signs [x] Documentation [x] Medication orders and management History Interval history: Patient seen and examined continues on high flow oxygen postextubation.overnight still requiring increase in high flow oxygen PUI?: Yes COVID19: Positive Hospitalist Physical - Physical exam Narrative exam: Constitutional: no acute distress, asleep, other (Atraumatic, normocephalic, no patient -ventilator dyssynchrony) Eyes: non-icteric ENT: Follows some commands left-sided weakness persist Neck: supple, no lymphadenopathy, no JVD Effort: normal Ascultation: Bilateral: diminished breath sounds, rhonchi Percussion: Bilateral: not dull Cardiovascular: irregular rhythm, other (S1,S2, no murmurs) Gastrointestinal: normoactive bowel sounds, soft, non-tender, tender Integumentary: normal Extremities: no cyanosis, no edema, pulses normal, no ischemia or petechiae Neurologic: per staff following some command Psychiatric: other exam limited due to limited PPE's CBC and BMP: - Constitutional Vitals: Temp Pulse Resp BP Pulse Ox 98.4 F 92 H 17 150/92 100 06/17/19 16:00 06/17/19 16:00 06/17/19 16:06/17/19 16:00 06/17/19 16:00 General appearance: Present: no acute distress, well-nourished MACK score - Mack Score Age > 65: (0) No 3 or more CAD Risk Factors: (1) Yes 2 or more Angina events in past 24 hrs: (0) No Known CAD with more than 50% Stenosis: (0) No Elevated Cardiac Markers: (0) No ST Deviation Greater than 0.5mm: (0) No Results - Labs CBC & Chem 7: 06/16/19 05:16 06/16/19 05:16 Labs: Laboratory Last Values WBC 12.4 K/mm3 (4.5-11.0) H 06/16/19 05:16 RBC 4.62 M/mm3 (3.65-5.03) 06/16/19 05:16 Hgb 12.8 gm/dl (10.1-14.3) 06/16/19 05:16 Hct 40.3 % (30.3-42.9) 06/16/19 05:16 MCV 87 fl (79-97) 06/16/19 05:16 MCH 28 pg (28-32) 06/16/19 05:16 MCHC 32 % (30-34) 06/16/19 05:16 RDW 14.5 % (13.2-15.2) 06/16/19 05:16 Plt Count 215 K/mm3 (140-440) 06/16/19 05:16 Lymph % (Auto) 10.9 % (13.4-35.0) L 06/15/19 04:00 [place] % (Auto) 4.6 % (0.0-7.3) 06/15/19 04:00 Eos % (Auto) 0.1 % (0.0-4.3) 06/15/19 04:00 Baso % (Auto) 0.3 % (0.0-1.8) 06/15/19 04:00 Lymph # 1.7 K/mm3 (1.2-5.4) 06/15/19 04:00 [place] # 0.7 K/mm3 (0.0-0.8) 06/15/19 04:00 Eos # 0.0 K/mm3 (0.0-0.4) 06/15/19 04:00 Baso # 0.0 K/mm3 (0.0-0.1) 06/15/19 04:00 Add Manual Diff Complete 06/14/19 14:44 Total Counted 100 06/14/19 14:44 Seg Neutrophils % 84.1 % (40.0-70.0) H 06/15/19 04:00 Seg Neuts % (Manual) 81.0 % (40.0-70.0) H 06/14/19 14:44 Band Neutrophils % 0 % 06/14/19 14:44 Lymphocytes % (Manual) 10.0 % (13.4-35.0) L 06/14/19 14:44 Reactive Lymphs % (Man) 0 % 06/14/19 14:44 Monocytes % (Manual) 7.0 % (0.0-7.3) 06/14/19 14:44 Eosinophils % (Manual) 1.0 % (0.0-4.3) 06/14/19 14:44 Basophils % (Manual) 1.0 % (0.0-1.8) 06/14/19 14:44 Metamyelocytes % 0 % 06/14/19 14:44 Myelocytes % 0 % 06/14/19 14:44 Promyelocytes % 0 % 06/14/19 14:44 Blast Cells % 0 % 06/14/19 14:44 Nucleated RBC % Not Reportable 06/14/19 14:44 Seg Neutrophils # 13.1 K/mm3 (1.8-7.7) H 06/15/19 04:00 Seg Neutrophils # Man 11.3 K/mm3 (1.8-7.7) H 06/14/19 14:44 Band Neutrophils # 0.0 K/mm3 06/14/19 14:44 Lymphocytes # (Manual) 1.4 K/mm3 (1.2-5.4) 06/14/19 14:44 Abs React Lymphs (Man) 0.0 K/mm3 06/14/19 14:44 Monocytes # (Manual) 1.0 K/mm3 (0.0-0.8) H 06/14/19 14:44 Eosinophils # (Manual) 0.1 K/mm3 (0.0-0.4) 06/14/19 14:44 Basophils # (Manual) 0.1 K/mm3 (0.0-0.1) 06/14/19 14:44 Metamyelocytes # 0.0 K/mm3 06/14/19 14:44 Myelocytes # 0.0 K/mm3 06/14/19 14:44 Promyelocytes # 0.0 K/mm3 06/14/19 14:44 Blast Cells # 0.0 K/mm3 06/14/19 14:44 WBC Morphology Not Reportable 06/14/19 14:44 Hypersegmented Neuts Not Reportable 06/14/19 14:44 Hyposegmented Neuts Not Reportable 06/14/19 14:44 Hypogranular Neuts Not Reportable 06/14/19 14:44 Smudge Cells Not Reportable 06/14/19 14:44 Toxic Granulation Not Reportable 06/14/19 14:44 Toxic Vacuolation Not Reportable 06/14/19 14:44 Dohle Bodies Not Reportable 06/14/19 14:44 Pelger-Huet Anomaly Not Reportable 06/14/19 14:44 Stephanie Rods Not Reportable 06/14/19 14:44 Platelet Estimate Not Reportable 06/14/19 14:44 Clumped Platelets Not Reportable 06/14/19 14:44 Plt Clumps, EDTA Not Reportable 06/14/19 14:44 Large Platelets Not Reportable 06/14/19 14:44 Giant Platelets Not Reportable 06/14/19 14:44 Platelet Satelliting Not Reportable 06/14/19 14:44 Plt Morphology Comment Not Reportable 06/14/19 14:44 RBC Morphology Not Reportable 06/14/19 14:44 Dimorphic RBCs Not Reportable 06/14/19 14:44 Polychromasia Not Reportable 06/14/19 14:44 Hypochromasia 1+ 06/14/19 14:44 Poikilocytosis Not Reportable 06/14/19 14:44 Anisocytosis 1+ 06/14/19 14:44 Microcytosis Not Reportable 06/14/19 14:44 Macrocytosis Not Reportable 06/14/19 14:44 Spherocytes Not Reportable 06/14/19 14:44 Pappenheimer Bodies Not Reportable 06/14/19 14:44 Sickle Cells Not Reportable 06/14/19 14:44 Target Cells Not Reportable 06/14/19 14:44 Tear Drop Cells Not Reportable 06/14/19 14:44 Ovalocytes Not Reportable 06/14/19 14:44 Helmet Cells Not Reportable 06/14/19 14:44 [place] Bodies Not Reportable 06/14/19 14:44 Mangum Rings Not Reportable 06/14/19 14:44 Jessica Cells Not Reportable 06/14/19 14:44 Bite Cells Not Reportable 06/14/19 14:44 Crenated Cell Not Reportable 06/14/19 14:44 Elliptocytes Not Reportable 06/14/19 14:44 Acanthocytes (Spur) Not Reportable 06/14/19 14:44 Rouleaux Not Reportable 06/14/19 14:44 Hemoglobin C Crystals Not Reportable 06/14/19 14:44 Schistocytes Not Reportable 06/14/19 14:44 Malaria parasites Not Reportable 06/14/19 14:44 Elias Bodies Not Reportable 06/14/19 14:44 Hem Pathologist Commnt No 06/14/19 14:44 D-Dimer 836.6 ng/mlDDU (0-234) H 06/15/19 04:00 ABG pH 7.488 pH Units (7.350-7.450) H 06/14/19 16:35 ABG pCO2 40.7 mm Hg 06/14/19 16:35 ABG pO2 66.1 mm Hg (80.0-90.0) L 06/14/19 16:35 ABG HCO3 30.2 mmol/L (20.0-26.0) H 06/14/19 16:35 ABG O2 Saturation 94.7 % (95.0-99.0) L 06/14/19 16:35 ABG O2 Content 19.1 (0.0-44) 06/14/19 16:35 ABG Base Excess 6.3 mmol/L (-2.0-3.0) H 06/14/19 16:35 ABG Hemoglobin 14.6 gm/dl (12.0-16.0) 06/14/19 16:35 ABG Carboxyhemoglobin 1.0 % (0.0-5.0) 06/14/19 16:35 ABG Methemoglobin 0.5 % (0.0-1.5) 06/14/19 16:35 VBG pH 6.901 (7.320-7.420) L* 06/03/19 11:51 Oxyhemoglobin 93.3 % (95.0-99.0) L 06/14/19 16:35 FiO2 80 % 06/14/19 16:35 Sodium 145 mmol/L (137-145) 06/16/19 05:16 Potassium 3.4 mmol/L (3.6-5.0) L 06/16/19 05:16 Chloride 104.0 mmol/L (98-107) 06/16/19 05:16 Carbon Dioxide 27 mmol/L (22-30) 06/16/19 05:16 Anion Gap 17 mmol/L 06/16/19 05:16 BUN 14 mg/dL (7-17) 06/16/19 05:16 Creatinine 0.5 mg/dL (0.7-1.2) L 06/16/19 05:16 Estimated GFR > 60 ml/min 06/16/19 05:16 BUN/Creatinine Ratio 28 % 06/16/19 05:16 Glucose 215 mg/dL (65-100) H 06/16/19 05:16 POC Glucose 269 (70-105) H 06/17/19 12:07 Hemoglobin A1c 9.6 % (4-6) H 06/03/19 16:03 Lactic Acid 1.90 mmol/L (0.7-2.0) 06/03/19 21:32 Calcium 9.7 mg/dL (8.4-10.2) 06/16/19 05:16 Phosphorus 2.20 mg/dL (2.5-4.5) L 06/08/19 09:33 Magnesium 2.60 mg/dL (1.7-2.3) H 06/08/19 09:33 Ferritin 908.8 ng/mL (13.0-400.0) H 06/15/19 04:00 Total Bilirubin 0.20 mg/dL (0.1-1.2) 06/12/19 03:58 AST 103 units/L (5-40) H 06/12/19 03:58 ALT 101 units/L (7-56) H 06/12/19 03:58 Alkaline Phosphatase 128 units/L (35-129) 06/12/19 03:58 Lactate Dehydrogenase 386 units/L (91-180) H 06/15/19 04:00 Troponin T < 0.010 ng/mL (0.00-0.029) 06/03/19 11:51 C-Reactive Protein 17.00 mg/dL (0.00-1.30) H 06/15/19 04:00 Total Protein 5.9 g/dL (6.3-8.2) L 06/12/19 03:58 Albumin 2.3 g/dL (3.9-5) L 06/12/19 03:58 Albumin/Globulin Ratio 0.6 % 06/12/19 03:58 Triglycerides 304 mg/dL (2-149) H 06/09/19 07:34 Cholesterol 250 mg/dL (50-199) H 06/03/19 19:00 LDL Cholesterol Direct TNR 06/03/19 19:00 HDL Cholesterol 46 mg/dL (40-59) 06/03/19 19:00 Cholesterol/HDL Ratio 5.43 % 06/03/19 19:00 Procalcitonin 0.10 ng/mL (<0.15) 06/13/19 09:23 Urine Color Yellow (Yellow) 06/03/19 11:48 Urine Turbidity Clear (Clear) 06/03/19 11:48 Urine pH 6.0 (5.0-7.0) 06/03/19 11:48 Ur Specific [place] 1.026 (1.003-1.030) 06/03/19 11:48 Urine Protein 100 mg/dl mg/dL (Negative) 06/03/19 11:48 Urine Glucose (UA) >=500 mg/dL (Negative) 06/03/19 11:48 Urine Ketones 80 mg/dL (Negative) 06/03/19 11:48 Urine Blood Mod (Negative) 06/03/19 11:48 Urine Nitrite Neg (Negative) 06/03/19 11:48 Urine Bilirubin Neg (Negative) 06/03/19 11:48 Urine Urobilinogen < 2.0 mg/dL (<2.0) 06/03/19 11:48 Ur Leukocyte Esterase Neg (Negative) 06/03/19 11:48 Urine WBC (Auto) 1.0 /HPF (0.0-6.0) 06/03/19 11:48 Urine RBC (Auto) 2.0 /HPF (0.0-6.0) 06/03/19 11:48 Granular Casts 4 /LPF 06/03/19 11:48 Urine Mucus Few /HPF 06/03/19 11:48 Urine Osmolality 755 Mosm/kg 06/07/19 17:00 Urine Creatinine 37.4 mg/dL (0.1-20.0) H 06/03/19 11:48 Urine Microalbumin 65.1 mg/dL (0.1-34.0) H 06/03/19 11:48 Microalb/Creat Ratio 1740.6 ug/mg 06/03/19 11:48 Urine Sodium 130 mmol/L 06/07/19 17:00 Urine Chloride 172.4 mmolL (110-250) 06/07/19 17:00 Urine HCG, Qual Negative (Negative) 06/03/19 11:48 Vancomycin Trough 4.2 ug/mL (5.0-20.0) L 06/05/19 21:00 Salicylates < 0.3 mg/dL (2.8-20.0) L 06/03/19 11:51 Urine Opiates Screen Presumptive negative 06/03/19 11:48 Urine Methadone Screen Presumptive negative 06/03/19 11:48 Acetaminophen < 5.0 ug/mL (10.0-30.0) L 06/03/19 11:51 Ur Barbiturates Screen Presumptive negative 06/03/19 11:48 Ur Phencyclidine Scrn Presumptive negative 06/03/19 11:48 Ur Amphetamines Screen Presumptive negative 06/03/19 11:48 U Benzodiazepines Scrn Presumptive negative 06/03/19 11:48 Urine Cocaine Screen Presumptive negative 06/03/19 11:48 U Marijuana (THC) Screen Presumptive negative 06/03/19 11:48 Drugs of Abuse Note Disclamer 06/03/19 11:48 Plasma/Serum Alcohol < 0.01 % (0-0.07) 06/03/19 11:51 Hepatitis A IgM Ab Non-reactive (NonReactive) 06/04/19 08:19 Hep Bs Antigen Non-reactive (Negative) 06/04/19 08:19 Hep B Core IgM Ab Non-reactive (NonReactive) 06/04/19 08:19 Hepatitis C Antibody Non-reactive (NonReactive) 06/04/19 08:19 Influenza A (Rapid) Negative (Negative) 06/03/19 Unknown Influenza B (Rapid) Negative (Negative) 06/03/19 Unknown Miscellaneous Test See scanned result 06/05/19 Unknown Alves/IV: Voiding Method Diaper IV Catheter Type [Left Wrist] INT / Saline Lock IV Catheter Type [Right Hand] INT / Saline Lock IV Catheter Type [Left Hand] INT / Saline Lock IV Catheter Type [Right INT / Saline Lock Antecubital] IV Catheter Type [Left Peripheral IV Antecubital] Active Medications - Current Medications Current Medications: Generic Name Dose Route Start Last Admin Trade Name Freq PRN Reason Stop Dose Admin Albuterol 2 puff 06/15/19 12:24 Proair IH Q4HRT PRN Shortness Of Breath Amlodipine Besylate 5 mg 06/13/19 14:00 06/17/19 09:33 Amlodipine PO 5 mg QDAY JOSE ROBERTO Administration Lipase/Protease/Amylase 1 each 06/05/19 09:[address] 10,500 Unit FEEDTUBE PRN PRN For Clogged Feeding Tube Dextrose 50 ml 06/03/19 13:57 D50w (25gm) Syringe IV Q30MIN PRN Hypoglycemia Protocol Famotidine 20 mg 06/06/19 10:00 06/17/19 09:32 Pepcid PO 20 mg BID JOSE ROBERTO Administration Heparin Sodium (Porcine) 5,000 unit 06/03/19 14:15 06/17/19 09:34 Heparin SUB-Q 5,000 unit Q12HR JOSE ROBERTO Administration Hydralazine HCl 10 mg 06/07/19 08:42 06/17/19 02:25 Apresoline IV 10 mg Q4HR PRN Administration Hypertension Hydrophilic Ointment 1 applic 06/03/19 11:02 Vaseline Lip Therapy TP Q2HR PRN Dry Lips Insulin Glargine 8 units 06/17/19 22:00 Lantus SUB-Q QHS JOSE ROBERTO Insulin Human Regular 0 units 06/16/19 18:00 06/17/19 12:05 Humulin R SUB-Q 4 units Q6H JSOE ROBERTO Administration Protocol Losartan Potassium 50 mg 06/07/19 10:00 06/17/19 09:32 Cozaar PO 50 mg QDAY JOSE ROBERTO Administration Multi-Ingred Cream/Lotion/Oil/Oint 1 applic 06/03/19 11:02 Artificial Tears Ophth Oint OU Q4HR PRN Dry Eye(s) Quetiapine Fumarate 50 mg 06/10/19 22:00 06/16/19 21:17 Seroquel PO 50 mg QHS JOSE ROBERTO Administration Senna 8.6 mg 06/03/19 22:00 06/17/19 09:32 Senokot PO 8.6 mg BID JOSE ROBERTO Administration Simple Syrup 15 ml 06/05/19 09:59 Simple Syrup FEEDTUBE PRN PRN Hypoglycemia Simple Syrup 30 ml 06/05/19 09:59 Simple Syrup FEEDTUBE PRN PRN Hypoglycemia Sodium Bicarbonate 325 mg 06/05/19 09:59 Sodium Bicarbonate FEEDTUBE PRN PRN For Clogged Feeding Tube Sodium Chloride 10 ml 06/03/19 22:00 06/17/19 09:33 Sodium Chloride Flush Syringe 10 Ml IV 10 ml BID JOSE ROBERTO Administration Sodium Chloride 10 ml 06/03/19 13:57 Sodium Chloride Flush Syringe 10 Ml IV PRN PRN LINE FLUSH Nutrition/Malnutrition Assess - Dietary Evaluation Nutrition/Malnutrition Findings: Nutrition Notes Start: 06/04/19 08:30 Freq: Status: Active Protocol: Document 06/17/19 08:35 LM (Rec: 06/17/19 08:42 LM [id number]) Nutrition Notes Need for Assessment generated from: MD Order Initial or Follow up Reassessment Current Diagnosis Diabetes,Sepsis,Hypertension, Respiratory Failure, Hyperlipidemia Other Pertinent Diagnosis COVID-19 positive, Pneu, metabolic encephalopathy Current Diet NPO Labs/Tests POC glu 191 Pertinent Medications Humulin Height 5 ft 6 in Weight 81.1 kg [place] Body Weight (kg) 59.09 BMI 28.8 Weight Status Overweight Subjective/Other Information MD consult for TF. SHOULDER BONER recommends pt to remain NPO. Burn Absent Trauma Absent Current % PO Negligible Minimum of two criteria No Fluid Accumulation Mild (non-severe) #1 Nutrition Diagnosis Inadequate oral intake Diagnosis Progress(for reassessment Continues documentation) Is patient on ventilator? No Is Patient Ambulatory and/or Out of Bed No REE-([facility]-confined to bed) [phone] Calculation Used for Recommendations [facility] Additional Notes Protein: 65-81g (0.8-1g/kg) Fluid: 1ml/kcal Nutrition Intervention Change Diet Order: TF Nutrition Support: Glucerna 1.2 at 60ml/hr Flush 100 ml q4h Kcal 1,728 Protein (gm) 86 Fluid (mL) 1,159 Goal #1 TF start/tolerance Anticipated Discharge Needs: unable to determine at this time Follow-Up By: 06/19/19 Additional Comments F/U for TF start/tolerance
[2019-06-17] MEDS: QUEtiapine 25 MG TAB PO SCH (21:52)
[2019-06-18] MEDS: INSULIN REGULAR, HUMAN 100 UNITS/1 ML SUB-Q SCH ×4 (00:26→20:50)
[2019-06-18] MEDS: FAMOTIDINE 20 MG TAB PO SCH ×2 (09:40→21:44)
[2019-06-18] MEDS: SENNOSIDES 8.6 MG TAB PO SCH ×2 (09:40→21:44)
[2019-06-18] MEDS: amLODIPine 5 MG TAB PO SCH (09:40)
[2019-06-18] MEDS: HEPARIN 5,000 UNIT/1 ML VIAL SUB-Q SCH ×2 (09:40→21:44)
[2019-06-18] MEDS: LOSARTAN 50 MG TAB PO SCH (09:40)
--- NOTE | 2019-06-18 10:43 | Progress Note ---
Assessment and Plan Sepsis secondary to pneumonia-with hypothermia Acute hypoxic respiratory failure ,s/p mechanical ventilation POSITIVE COVID 19 - severe COVID pneumonia. -Transmission likely from community recent travel to [place]. - Ferritin at 1,037-->1,649-->1,319. LDH 673-->449. CRP 14-->9. Ddimer 434-->1319 DKA, treated Diabetes mellitus with uncontrolled blood sugar Acute metabolic encephalopathy, improving Pneumonia Leukocytosis Paroxysmal atrial fibrillation likely new onset Severe metabolic acidosis-improving Hypernatremia-improving Hypokalemia Oropharyngeal dysphagia -Continue with enteric nutritional support -Continue aspiration precautions, HOB>40 - Continue supplemental oxygen to keep O2 sats >92% -If persistent weakness, may benefit from MRI of the brain to evaluate for int ra-cranial pathology. This could be a combination of critical illness myopathy or the neurologic ma nifestations of COVID -Recommend retesting fro COVID-19, she is a good candidate for LTACH to wean s upplemental oxygen and low level rehab -ABG, CXR prn - Monitor glycemic control, with target blood glucose 140-180 mg/dL while critically ill. -Avoid hypoglycemia - Goal to keep Potassium 4 and Magnesium 2 to optimize respiratory muscle function -VTE prophylaxis on heparin -Stress ulcer prophylaxis- Famotidine -Continue to avoid nephrotoxins, adjust all medications for CrCL and GFR -Follow up BMP and CBC prn - Continue bronchodilators with pulmonary hygiene - Continue to maintain of sleep-wake cycle, avoid delirium - PT/OT/ROM exercises - Continue mobility protocol and skin assessment per protocol for pressure ulcer prevention - s/p Influenza and pneumonia vaccination -Continue COVID isolation precautions per [facility] protocol -Check serial Ferritin, LDH, D-Dimer, CRP per [facility] protocol -s/p hydroxychloroquine (total 5 days) Day 5 of 5 and zinc -s/p antibiotics for CAP s/p steroids s/p Acterma - continue other care per attending / other consultants CONDITION: FAIR PROGNOSIS: GUARDED CODE STATUS: FULL CODE Subjective Date of service: 06/18/19 Principal diagnosis: Ac hypoxemic resp failure; Bob. PNA; PUI CVOVID-19; DKA; Severe sepsis Interval history: Follow up for: Acute hypoxemic respiratory failure s/p MVS; COVID 19 pneumonia;DKA ; Acute metabolic encephalopathy; Sepsis; Fevers; SHRAITA; Seen and examined. Vitals, labs, medications, chart and imaging reviewed. s/p MVS, very soft voice and slow speech. On going need for high flow oxygen therapy, at 60% 30L No fevers overnight, more awake and alert. Right upper extremity weakness, failed swallow evaluation and has a SBFT for nutritional support. No fevers PUI?: Yes COVID19: Positive Objective Vital Signs - 12hr 06/17/19 06/17/19 06/17/19 22:52 23:00 23:23 Temperature Pulse Rate 94 H 90 96 H Pulse Rate [ From Monitor] Respiratory 15 14 Rate Blood Pressure 126/73 126/73 O2 Sat by Pulse 99 100 Oximetry 06/18/19 06/18/19 06/18/19 00:00 01:00 02:00 Temperature 97.6 F Pulse Rate 93 H 100 H 91 H Pulse Rate [ 93 H From Monitor] Respiratory 16 19 16 Rate Blood Pressure 125/84 115/82 124/74 O2 Sat by Pulse 99 100 100 Oximetry 06/18/19 06/18/19 06/18/19 03:00 04:00 05:00 Temperature 98.6 F Pulse Rate 91 H 99 H 94 H Pulse Rate [ 99 H From Monitor] Respiratory 18 20 21 Rate Blood Pressure 117/72 138/90 139/87 O2 Sat by Pulse 100 99 100 Oximetry 06/18/19 06/18/19 06/18/19 06:00 07:00 08:00 Temperature Pulse Rate 90 91 H 94 H Pulse Rate [ From Monitor] Respiratory 20 20 17 Rate Blood Pressure 149/91 134/88 155/96 O2 Sat by Pulse 99 99 99 Oximetry 06/18/19 09:00 Temperature Pulse Rate 92 H Pulse Rate [ From Monitor] Respiratory 18 Rate Blood Pressure 133/94 O2 Sat by Pulse 99 Oximetry Constitutional: no acute distress, alert, other (Atraumatic, normocephalic, ) Eyes: non-icteric ENT: other (SBFT in place, ) Neck: supple, no lymphadenopathy, no JVD Effort: mildly labored Ascultation: Bilateral: clear, diminished breath sounds, rhonchi Percussion: Bilateral: not dull Cardiovascular: regular rate and rhythm, other (S1,S2, no murmurs) Gastrointestinal: normoactive bowel sounds, soft, non-tender, tender Integumentary: normal Extremities: no cyanosis, no edema, pulses normal, no ischemia or petechiae Neurologic: normal mental status, non-focal exam (some preferntial weakness of RUxt), pupils equal and round, motor strength normal and (generally weak) Psychiatric: mood appropriate, affect normal CBC and BMP: 06/20/19 04:50 06/20/19 04:50 ABG, PT/INR, D-dimer: ABG ABG pH 7.488 pH Units (7.350-7.450) H 06/14/19 16:35 ABG pCO2 40.7 mm Hg 06/14/19 16:35 ABG pO2 66.1 mm Hg (80.0-90.0) L 06/14/19 16:35 ABG O2 Saturation 94.7 % (95.0-99.0) L 06/14/19 16:35 PT/INR, D-dimer D-Dimer 836.6 ng/mlDDU (0-234) H 06/15/19 04:00 Abnormal lab findings: Abnormal Labs 06/03/19 06/03/19 06/03/19 10:59 11:15 11:48 WBC RBC Hgb Hct MCH RDW Plt Count Lymph % (Auto) Seg Neutrophils % Seg Neuts % (Manual) Lymphocytes % (Manual) Monocytes % (Manual) Seg Neutrophils # Seg Neutrophils # Man Lymphocytes # (Manual) Monocytes # (Manual) D-Dimer ABG pH ABG pO2 ABG HCO3 ABG O2 Saturation ABG Base Excess ABG Hemoglobin VBG pH Oxyhemoglobin Sodium Potassium Chloride Carbon Dioxide BUN Creatinine Glucose POC Glucose 372 H Hemoglobin A1c Lactic Acid Calcium Phosphorus 11.70 H Magnesium 4.40 H Ferritin AST ALT Alkaline Phosphatase Lactate Dehydrogenase C-Reactive Protein Total Protein Albumin Triglycerides Cholesterol Urine Creatinine 37.4 H Urine Microalbumin 65.1 H Vancomycin Trough Salicylates Acetaminophen 06/03/19 06/03/19 06/03/19 11:51 11:51 11:51 WBC 23.3 H RBC 6.43 H Hgb 17.7 H Hct 59.9 H* MCH RDW 17.1 H Plt Count Lymph % (Auto) Seg Neutrophils % Seg Neuts % (Manual) 71.0 H Lymphocytes % (Manual) 11.0 L Monocytes % (Manual) 8.0 H Seg Neutrophils # Seg Neutrophils # Man 16.5 H Lymphocytes # (Manual) Monocytes # (Manual) 1.9 H D-Dimer ABG pH ABG pO2 ABG HCO3 ABG O2 Saturation ABG Base Excess ABG Hemoglobin VBG pH Oxyhemoglobin Sodium Potassium Chloride Carbon Dioxide 4 L* BUN 41 H Creatinine 1.8 H Glucose 636 H* POC Glucose Hemoglobin A1c Lactic Acid 3.20 H* Calcium 10.9 H Phosphorus Magnesium Ferritin AST 43 H ALT Alkaline Phosphatase 147 H Lactate Dehydrogenase 673 H C-Reactive Protein 14.70 H Total Protein 8.9 H Albumin Triglycerides Cholesterol Urine Creatinine Urine Microalbumin Vancomycin Trough Salicylates Acetaminophen 06/03/19 06/03/19 06/03/19 11:51 11:51 11:51 WBC RBC Hgb Hct MCH RDW Plt Count Lymph % (Auto) Seg Neutrophils % Seg Neuts % (Manual) Lymphocytes % (Manual) Monocytes % (Manual) Seg Neutrophils # Seg Neutrophils # Man Lymphocytes # (Manual) Monocytes # (Manual) D-Dimer ABG pH ABG pO2 ABG HCO3 ABG O2 Saturation ABG Base Excess ABG Hemoglobin VBG pH 6.901 L* Oxyhemoglobin Sodium Potassium Chloride Carbon Dioxide BUN Creatinine Glucose POC Glucose Hemoglobin A1c Lactic Acid Calcium Phosphorus Magnesium Ferritin AST ALT Alkaline Phosphatase Lactate Dehydrogenase C-Reactive Protein Total Protein Albumin Triglycerides Cholesterol Urine Creatinine Urine Microalbumin Vancomycin Trough Salicylates < 0.3 L Acetaminophen < 5.0 L 06/03/19 06/03/19 06/03/19 11:51 11:51 12:34 WBC RBC Hgb Hct MCH RDW Plt Count Lymph % (Auto) Seg Neutrophils % Seg Neuts % (Manual) Lymphocytes % (Manual) Monocytes % (Manual) Seg Neutrophils # Seg Neutrophils # Man Lymphocytes # (Manual) Monocytes # (Manual) D-Dimer 4311.60 H ABG pH ABG pO2 ABG HCO3 ABG O2 Saturation ABG Base Excess ABG Hemoglobin VBG pH Oxyhemoglobin Sodium Potassium Chloride Carbon Dioxide BUN Creatinine Glucose POC Glucose Hemoglobin A1c Lactic Acid 5.20 H* Calcium Phosphorus Magnesium Ferritin 1037.0 H AST ALT Alkaline Phosphatase Lactate Dehydrogenase C-Reactive Protein Total Protein Albumin Triglycerides Cholesterol Urine Creatinine Urine Microalbumin Vancomycin Trough Salicylates Acetaminophen 06/03/19 06/03/19 06/03/19 14:30 16:03 17:00 WBC RBC Hgb Hct MCH RDW Plt Count Lymph % (Auto) Seg Neutrophils % Seg Neuts % (Manual) Lymphocytes % (Manual) Monocytes % (Manual) Seg Neutrophils # Seg Neutrophils # Man Lymphocytes # (Manual) Monocytes # (Manual) D-Dimer ABG pH 6.880 L* ABG pO2 489.9 H ABG HCO3 7.1 L ABG O2 Saturation 99.6 H ABG Base Excess -26.1 L ABG Hemoglobin 16.2 H VBG pH Oxyhemoglobin Sodium Potassium Chloride Carbon Dioxide BUN Creatinine Glucose POC Glucose 335 H Hemoglobin A1c 9.6 H Lactic Acid Calcium Phosphorus Magnesium Ferritin AST ALT Alkaline Phosphatase Lactate Dehydrogenase C-Reactive Protein Total Protein Albumin Triglycerides Cholesterol Urine Creatinine Urine Microalbumin Vancomycin Trough Salicylates Acetaminophen 06/03/19 06/03/19 06/03/19 18:14 18:24 19:00 WBC RBC Hgb Hct MCH RDW Plt Count Lymph % (Auto) Seg Neutrophils % Seg Neuts % (Manual) Lymphocytes % (Manual) Monocytes % (Manual) Seg Neutrophils # Seg Neutrophils # Man Lymphocytes # (Manual) Monocytes # (Manual) D-Dimer ABG pH 7.057 L* ABG pO2 97.2 H ABG HCO3 5.5 L ABG O2 Saturation ABG Base Excess -23.0 L ABG Hemoglobin 18.1 H VBG pH Oxyhemoglobin 94.4 L Sodium Potassium Chloride Carbon Dioxide BUN Creatinine Glucose POC Glucose 285 H Hemoglobin A1c Lactic Acid 3.40 H* Calcium Phosphorus Magnesium Ferritin AST ALT Alkaline Phosphatase Lactate Dehydrogenase C-Reactive Protein Total Protein Albumin Triglycerides Cholesterol Urine Creatinine Urine Microalbumin Vancomycin Trough Salicylates Acetaminophen 06/03/19 06/03/19 06/03/19 19:00 19:00 19:52 WBC RBC Hgb Hct MCH RDW Plt Count Lymph % (Auto) Seg Neutrophils % Seg Neuts % (Manual) Lymphocytes % (Manual) Monocytes % (Manual) Seg Neutrophils # Seg Neutrophils # Man Lymphocytes # (Manual) Monocytes # (Manual) D-Dimer ABG pH ABG pO2 ABG HCO3 ABG O2 Saturation ABG Base Excess ABG Hemoglobin VBG pH Oxyhemoglobin Sodium 151 H Potassium Chloride 120.8 H Carbon Dioxide 6 L* BUN 33 H Creatinine 1.4 H Glucose 339 H POC Glucose 316 H Hemoglobin A1c Lactic Acid Calcium Phosphorus Magnesium Ferritin AST 47 H ALT Alkaline Phosphatase 130 H Lactate Dehydrogenase C-Reactive Protein Total Protein Albumin 3.7 L Triglycerides 424 H Cholesterol 250 H Urine Creatinine Urine Microalbumin Vancomycin Trough Salicylates Acetaminophen 04/03/2306/03/19 06/03/19 20:21 20:21 21:01 WBC RBC Hgb Hct MCH RDW Plt Count Lymph % (Auto) Seg Neutrophils % Seg Neuts % (Manual) Lymphocytes % (Manual) Monocytes % (Manual) Seg Neutrophils # Seg Neutrophils # Man Lymphocytes # (Manual) Monocytes # (Manual) D-Dimer ABG pH ABG pO2 ABG HCO3 ABG O2 Saturation ABG Base Excess ABG Hemoglobin VBG pH Oxyhemoglobin Sodium 153 H Potassium Chloride 121.8 H Carbon Dioxide 6 L* BUN 34 H Creatinine 1.3 H Glucose 324 H POC Glucose 245 H Hemoglobin A1c Lactic Acid 3.10 H* Calcium Phosphorus Magnesium Ferritin AST ALT Alkaline Phosphatase Lactate Dehydrogenase C-Reactive Protein Total Protein Albumin Triglycerides Cholesterol Urine Creatinine Urine Microalbumin Vancomycin Trough Salicylates Acetaminophen 06/03/19 06/03/19 06/03/19 21:25 21:32 22:42 WBC RBC Hgb Hct MCH RDW Plt Count Lymph % (Auto) Seg Neutrophils % Seg Neuts % (Manual) Lymphocytes % (Manual) Monocytes % (Manual) Seg Neutrophils # Seg Neutrophils # Man Lymphocytes # (Manual) Monocytes # (Manual) D-Dimer ABG pH 7.172 L* ABG pO2 107.2 H ABG HCO3 5.2 L ABG O2 Saturation ABG Base Excess -20.5 L ABG Hemoglobin 17.3 H VBG pH Oxyhemoglobin Sodium 155 H Potassium 2.6 L* D Chloride 130.1 H Carbon Dioxide 5 L* BUN 24 H Creatinine Glucose 212 H POC Glucose 225 H Hemoglobin A1c Lactic Acid Calcium 5.8 L* D Phosphorus Magnesium Ferritin AST ALT Alkaline Phosphatase Lactate Dehydrogenase C-Reactive Protein Total Protein Albumin Triglycerides Cholesterol Urine Creatinine Urine Microalbumin Vancomycin Trough Salicylates Acetaminophen 06/03/19 06/04/19 06/04/19 23:32 00:04 01:25 WBC RBC Hgb Hct MCH RDW Plt Count Lymph % (Auto) Seg Neutrophils % Seg Neuts % (Manual) Lymphocytes % (Manual) Monocytes % (Manual) Seg Neutrophils # Seg Neutrophils # Man Lymphocytes # (Manual) Monocytes # (Manual) D-Dimer ABG pH ABG pO2 ABG HCO3 ABG O2 Saturation ABG Base Excess ABG Hemoglobin VBG pH Oxyhemoglobin Sodium 151 H 151 H Potassium 1.5 L* D Chloride 139.0 H 124.7 H Carbon Dioxide 3 L* 9 L* BUN 31 H Creatinine 0.2 L D Glucose 117 H 241 H POC Glucose 231 H Hemoglobin A1c Lactic Acid Calcium 3.1 L* D Phosphorus Magnesium Ferritin AST ALT Alkaline Phosphatase Lactate Dehydrogenase C-Reactive Protein Total Protein Albumin Triglycerides Cholesterol Urine Creatinine Urine Microalbumin Vancomycin Trough Salicylates Acetaminophen 06/04/19 06/04/19 06/04/19 01:34 02:45 03:21 WBC RBC Hgb Hct MCH RDW Plt Count Lymph % (Auto) Seg Neutrophils % Seg Neuts % (Manual) Lymphocytes % (Manual) Monocytes % (Manual) Seg Neutrophils # Seg Neutrophils # Man Lymphocytes # (Manual) Monocytes # (Manual) D-Dimer ABG pH ABG pO2 ABG HCO3 ABG O2 Saturation ABG Base Excess ABG Hemoglobin VBG pH Oxyhemoglobin Sodium Potassium Chloride Carbon Dioxide BUN Creatinine Glucose POC Glucose 194 H 189 H 183 H Hemoglobin A1c Lactic Acid Calcium Phosphorus Magnesium Ferritin AST ALT Alkaline Phosphatase Lactate Dehydrogenase C-Reactive Protein Total Protein Albumin Triglycerides Cholesterol Urine Creatinine Urine Microalbumin Vancomycin Trough Salicylates Acetaminophen 06/04/19 06/04/19 06/04/19 04:50 05:07 06:27 WBC RBC Hgb Hct MCH RDW Plt Count Lymph % (Auto) Seg Neutrophils % Seg Neuts % (Manual) Lymphocytes % (Manual) Monocytes % (Manual) Seg Neutrophils # Seg Neutrophils # Man Lymphocytes # (Manual) Monocytes # (Manual) D-Dimer ABG pH ABG pO2 76.5 L ABG HCO3 12.9 L ABG O2 Saturation ABG Base Excess -9.0 L ABG Hemoglobin VBG pH Oxyhemoglobin Sodium Potassium Chloride Carbon Dioxide BUN Creatinine Glucose POC Glucose 200 H 164 H Hemoglobin A1c Lactic Acid Calcium Phosphorus Magnesium Ferritin AST ALT Alkaline Phosphatase Lactate Dehydrogenase C-Reactive Protein Total Protein Albumin Triglycerides Cholesterol Urine Creatinine Urine Microalbumin Vancomycin Trough Salicylates Acetaminophen 06/04/19 06/04/19 06/04/19 07:00 07:00 07:00 WBC 13.4 H RBC 5.54 H Hgb 15.3 H Hct 46.1 H D MCH RDW Plt Count Lymph % (Auto) Seg Neutrophils % Seg Neuts % (Manual) 72.0 H Lymphocytes % (Manual) 6.0 L Monocytes % (Manual) Seg Neutrophils # Seg Neutrophils # Man 9.6 H Lymphocytes # (Manual) 0.8 L Monocytes # (Manual) D-Dimer ABG pH ABG pO2 ABG HCO3 ABG O2 Saturation ABG Base Excess ABG Hemoglobin VBG pH Oxyhemoglobin Sodium 158 H 156 H Potassium 2.7 L* D 2.6 L* Chloride 124.3 H 123.5 H Carbon Dioxide 11 L 11 L BUN 25 H 26 H Creatinine Glucose 192 H 190 H POC Glucose Hemoglobin A1c Lactic Acid Calcium Phosphorus Magnesium Ferritin AST 43 H ALT Alkaline Phosphatase Lactate Dehydrogenase 590 H C-Reactive Protein 22.70 H Total Protein Albumin 2.9 L Triglycerides Cholesterol Urine Creatinine Urine Microalbumin Vancomycin Trough Salicylates Acetaminophen 06/04/19 06/04/19 06/04/19 07:00 07:00 07:14 WBC RBC Hgb Hct MCH RDW Plt Count Lymph % (Auto) Seg Neutrophils % Seg Neuts % (Manual) Lymphocytes % (Manual) Monocytes % (Manual) Seg Neutrophils # Seg Neutrophils # Man Lymphocytes # (Manual) Monocytes # (Manual) D-Dimer 2050.33 H ABG pH ABG pO2 ABG HCO3 ABG O2 Saturation ABG Base Excess ABG Hemoglobin VBG pH Oxyhemoglobin Sodium Potassium Chloride Carbon Dioxide BUN Creatinine Glucose POC Glucose 176 H Hemoglobin A1c Lactic Acid Calcium Phosphorus Magnesium Ferritin 941.3 H AST ALT Alkaline Phosphatase Lactate Dehydrogenase C-Reactive Protein Total Protein Albumin Triglycerides Cholesterol Urine Creatinine Urine Microalbumin Vancomycin Trough Salicylates Acetaminophen 06/04/19 06/04/19 06/04/19 09:55 11:38 12:19 WBC RBC Hgb Hct MCH RDW Plt Count Lymph % (Auto) Seg Neutrophils % Seg Neuts % (Manual) Lymphocytes % (Manual) Monocytes % (Manual) Seg Neutrophils # Seg Neutrophils # Man Lymphocytes # (Manual) Monocytes # (Manual) D-Dimer ABG pH ABG pO2 ABG HCO3 ABG O2 Saturation ABG Base Excess ABG Hemoglobin VBG pH Oxyhemoglobin Sodium Potassium Chloride Carbon Dioxide BUN Creatinine Glucose POC Glucose 184 H 145 H 144 H Hemoglobin A1c Lactic Acid Calcium Phosphorus Magnesium Ferritin AST ALT Alkaline Phosphatase Lactate Dehydrogenase C-Reactive Protein Total Protein Albumin Triglycerides Cholesterol Urine Creatinine Urine Microalbumin Vancomycin Trough Salicylates Acetaminophen 06/04/19 06/04/19 06/04/19 13:35 14:29 15:06 WBC RBC Hgb Hct MCH RDW Plt Count Lymph % (Auto) Seg Neutrophils % Seg Neuts % (Manual) Lymphocytes % (Manual) Monocytes % (Manual) Seg Neutrophils # Seg Neutrophils # Man Lymphocytes # (Manual) Monocytes # (Manual) D-Dimer ABG pH ABG pO2 ABG HCO3 ABG O2 Saturation ABG Base Excess ABG Hemoglobin VBG pH Oxyhemoglobin Sodium 157 H Potassium 2.4 L* Chloride 121.4 H Carbon Dioxide 20 L D BUN 21 H Creatinine Glucose 176 H POC Glucose 151 H 142 H Hemoglobin A1c Lactic Acid Calcium Phosphorus Magnesium Ferritin AST ALT Alkaline Phosphatase Lactate Dehydrogenase C-Reactive Protein Total Protein Albumin Triglycerides Cholesterol Urine Creatinine Urine Microalbumin Vancomycin Trough Salicylates Acetaminophen 06/04/19 06/04/19 06/04/19 17:14 17:51 21:45 WBC RBC Hgb Hct MCH RDW Plt Count Lymph % (Auto) Seg Neutrophils % Seg Neuts % (Manual) Lymphocytes % (Manual) Monocytes % (Manual) Seg Neutrophils # Seg Neutrophils # Man Lymphocytes # (Manual) Monocytes # (Manual) D-Dimer ABG pH ABG pO2 ABG HCO3 ABG O2 Saturation ABG Base Excess ABG Hemoglobin VBG pH Oxyhemoglobin Sodium Potassium Chloride Carbon Dioxide BUN Creatinine Glucose POC Glucose 200 H 159 H 143 H Hemoglobin A1c Lactic Acid Calcium Phosphorus Magnesium Ferritin AST ALT Alkaline Phosphatase Lactate Dehydrogenase C-Reactive Protein Total Protein Albumin Triglycerides Cholesterol Urine Creatinine Urine Microalbumin Vancomycin Trough Salicylates Acetaminophen 06/04/19 06/04/19 06/04/19 22:20 22:21 23:27 WBC RBC Hgb Hct MCH RDW Plt Count Lymph % (Auto) Seg Neutrophils % Seg Neuts % (Manual) Lymphocytes % (Manual) Monocytes % (Manual) Seg Neutrophils # Seg Neutrophils # Man Lymphocytes # (Manual) Monocytes # (Manual) D-Dimer ABG pH 7.572 H ABG pO2 58.5 L ABG HCO3 ABG O2 Saturation ABG Base Excess 3.5 H ABG Hemoglobin 20.0 H VBG pH Oxyhemoglobin 94.6 L Sodium Potassium Chloride Carbon Dioxide BUN Creatinine Glucose POC Glucose 154 H 147 H Hemoglobin A1c Lactic Acid Calcium Phosphorus Magnesium Ferritin AST ALT Alkaline Phosphatase Lactate Dehydrogenase C-Reactive Protein Total Protein Albumin Triglycerides Cholesterol Urine Creatinine Urine Microalbumin Vancomycin Trough Salicylates Acetaminophen 06/05/19 06/05/19 06/05/19 00:27 01:16 02:20 WBC RBC Hgb Hct MCH RDW Plt Count Lymph % (Auto) Seg Neutrophils % Seg Neuts % (Manual) Lymphocytes % (Manual) Monocytes % (Manual) Seg Neutrophils # Seg Neutrophils # Man Lymphocytes # (Manual) Monocytes # (Manual) D-Dimer ABG pH ABG pO2 ABG HCO3 ABG O2 Saturation ABG Base Excess ABG Hemoglobin VBG pH Oxyhemoglobin Sodium Potassium Chloride Carbon Dioxide BUN Creatinine Glucose POC Glucose 124 H 126 H 156 H Hemoglobin A1c Lactic Acid Calcium Phosphorus Magnesium Ferritin AST ALT Alkaline Phosphatase Lactate Dehydrogenase C-Reactive Protein Total Protein Albumin Triglycerides Cholesterol Urine Creatinine Urine Microalbumin Vancomycin Trough Salicylates Acetaminophen 06/05/19 06/05/19 06/05/19 03:44 03:59 04:52 WBC RBC Hgb Hct MCH RDW Plt Count Lymph % (Auto) Seg Neutrophils % Seg Neuts % (Manual) Lymphocytes % (Manual) Monocytes % (Manual) Seg Neutrophils # Seg Neutrophils # Man Lymphocytes # (Manual) Monocytes # (Manual) D-Dimer ABG pH ABG pO2 ABG HCO3 ABG O2 Saturation ABG Base Excess ABG Hemoglobin VBG pH Oxyhemoglobin Sodium 155 H Potassium 3.0 L D Chloride 114.7 H Carbon Dioxide BUN Creatinine 0.6 L Glucose 136 H POC Glucose 143 H 141 H Hemoglobin A1c Lactic Acid Calcium Phosphorus Magnesium Ferritin AST ALT Alkaline Phosphatase Lactate Dehydrogenase C-Reactive Protein Total Protein Albumin Triglycerides Cholesterol Urine Creatinine Urine Microalbumin Vancomycin Trough Salicylates Acetaminophen 06/05/19 06/05/19 06/05/19 05:00 05:54 07:01 WBC RBC Hgb Hct MCH RDW Plt Count Lymph % (Auto) Seg Neutrophils % Seg Neuts % (Manual) Lymphocytes % (Manual) Monocytes % (Manual) Seg Neutrophils # Seg Neutrophils # Man Lymphocytes # (Manual) Monocytes # (Manual) D-Dimer ABG pH 7.621 H* ABG pO2 54.3 L ABG HCO3 29.8 H ABG O2 Saturation ABG Base Excess 8.8 H ABG Hemoglobin VBG pH Oxyhemoglobin Sodium Potassium Chloride Carbon Dioxide BUN Creatinine Glucose POC Glucose 155 H 145 H Hemoglobin A1c Lactic Acid Calcium Phosphorus Magnesium Ferritin AST ALT Alkaline Phosphatase Lactate Dehydrogenase C-Reactive Protein Total Protein Albumin Triglycerides Cholesterol Urine Creatinine Urine Microalbumin Vancomycin Trough Salicylates Acetaminophen 06/05/19 06/05/19 06/05/19 12:13 18:23 21:00 WBC RBC Hgb Hct MCH RDW Plt Count Lymph % (Auto) Seg Neutrophils % Seg Neuts % (Manual) Lymphocytes % (Manual) Monocytes % (Manual) Seg Neutrophils # Seg Neutrophils # Man Lymphocytes # (Manual) Monocytes # (Manual) D-Dimer ABG pH ABG pO2 ABG HCO3 ABG O2 Saturation ABG Base Excess ABG Hemoglobin VBG pH Oxyhemoglobin Sodium Potassium Chloride Carbon Dioxide BUN Creatinine Glucose POC Glucose 202 H 257 H Hemoglobin A1c Lactic Acid Calcium Phosphorus Magnesium Ferritin AST ALT Alkaline Phosphatase Lactate Dehydrogenase C-Reactive Protein Total Protein Albumin Triglycerides Cholesterol Urine Creatinine Urine Microalbumin Vancomycin Trough 4.2 L Salicylates Acetaminophen 06/05/19 06/06/19 06/06/19 23:55 04:16 04:37 WBC RBC Hgb Hct MCH RDW Plt Count Lymph % (Auto) Seg Neutrophils % Seg Neuts % (Manual) Lymphocytes % (Manual) Monocytes % (Manual) Seg Neutrophils # Seg Neutrophils # Man Lymphocytes # (Manual) Monocytes # (Manual) D-Dimer 1279.22 H ABG pH 7.600 H ABG pO2 62.4 L ABG HCO3 28.0 H ABG O2 Saturation ABG Base Excess 6.6 H ABG Hemoglobin 10.4 L VBG pH Oxyhemoglobin Sodium Potassium Chloride Carbon Dioxide BUN Creatinine Glucose POC Glucose 267 H Hemoglobin A1c Lactic Acid Calcium Phosphorus Magnesium Ferritin AST ALT Alkaline Phosphatase Lactate Dehydrogenase C-Reactive Protein Total Protein Albumin Triglycerides Cholesterol Urine Creatinine Urine Microalbumin Vancomycin Trough Salicylates Acetaminophen 06/06/19 06/06/19 06/06/19 04:37 04:37 04:37 WBC 12.2 H RBC 5.10 H Hgb Hct MCH 27 L RDW Plt Count Lymph % (Auto) Seg Neutrophils % Seg Neuts % (Manual) Lymphocytes % (Manual) Monocytes % (Manual) Seg Neutrophils # Seg Neutrophils # Man Lymphocytes # (Manual) Monocytes # (Manual) D-Dimer ABG pH ABG pO2 ABG HCO3 ABG O2 Saturation ABG Base Excess ABG Hemoglobin VBG pH Oxyhemoglobin Sodium 156 H Potassium 3.4 L Chloride 112.9 H Carbon Dioxide BUN 21 H Creatinine 0.6 L Glucose 332 H POC Glucose Hemoglobin A1c Lactic Acid Calcium Phosphorus Magnesium Ferritin 1649.0 H AST ALT Alkaline Phosphatase Lactate Dehydrogenase 578 H C-Reactive Protein 22.10 H Total Protein Albumin Triglycerides Cholesterol Urine Creatinine Urine Microalbumin Vancomycin Trough Salicylates Acetaminophen 06/06/19 06/06/19 06/06/19 05:45 11:55 12:21 WBC RBC Hgb Hct MCH RDW Plt Count Lymph % (Auto) Seg Neutrophils % Seg Neuts % (Manual) Lymphocytes % (Manual) Monocytes % (Manual) Seg Neutrophils # Seg Neutrophils # Man Lymphocytes # (Manual) Monocytes # (Manual) D-Dimer ABG pH 7.511 H ABG pO2 123.0 H ABG HCO3 29.7 H ABG O2 Saturation ABG Base Excess 6.4 H ABG Hemoglobin VBG pH Oxyhemoglobin Sodium Potassium Chloride Carbon Dioxide BUN Creatinine Glucose POC Glucose 303 H 281 H Hemoglobin A1c Lactic Acid Calcium Phosphorus Magnesium Ferritin AST ALT Alkaline Phosphatase Lactate Dehydrogenase C-Reactive Protein Total Protein Albumin Triglycerides Cholesterol Urine Creatinine Urine Microalbumin Vancomycin Trough Salicylates Acetaminophen 06/06/19 06/07/19 06/07/19 17:06 00:25 04:39 WBC RBC Hgb Hct MCH RDW Plt Count Lymph % (Auto) Seg Neutrophils % Seg Neuts % (Manual) Lymphocytes % (Manual) Monocytes % (Manual) Seg Neutrophils # Seg Neutrophils # Man Lymphocytes # (Manual) Monocytes # (Manual) D-Dimer ABG pH 7.507 H ABG pO2 46.4 L ABG HCO3 32.6 H ABG O2 Saturation 90.6 L ABG Base Excess 8.6 H ABG Hemoglobin VBG pH Oxyhemoglobin 89.2 L Sodium Potassium Chloride Carbon Dioxide BUN Creatinine Glucose POC Glucose 251 H 225 H Hemoglobin A1c Lactic Acid Calcium Phosphorus Magnesium Ferritin AST ALT Alkaline Phosphatase Lactate Dehydrogenase C-Reactive Protein Total Protein Albumin Triglycerides Cholesterol Urine Creatinine Urine Microalbumin Vancomycin Trough Salicylates Acetaminophen 06/07/19 06/07/19 06/07/19 04:43 04:43 04:43 WBC 13.6 H RBC 5.14 H Hgb Hct 43.4 H MCH 27 L RDW Plt Count Lymph % (Auto) Seg Neutrophils % Seg Neuts % (Manual) Lymphocytes % (Manual) Monocytes % (Manual) Seg Neutrophils # Seg Neutrophils # Man Lymphocytes # (Manual) Monocytes # (Manual) D-Dimer ABG pH ABG pO2 ABG HCO3 ABG O2 Saturation ABG Base Excess ABG Hemoglobin VBG pH Oxyhemoglobin Sodium 166 H* D Potassium 3.0 L Chloride 122.9 H Carbon Dioxide BUN 27 H Creatinine 0.5 L Glucose 265 H POC Glucose Hemoglobin A1c Lactic Acid Calcium Phosphorus Magnesium Ferritin AST ALT Alkaline Phosphatase Lactate Dehydrogenase C-Reactive Protein Total Protein Albumin Triglycerides 373 H Cholesterol Urine Creatinine Urine Microalbumin Vancomycin Trough Salicylates Acetaminophen 06/07/19 06/07/19 06/07/19 10:12 11:39 15:31 WBC RBC Hgb Hct MCH RDW Plt Count Lymph % (Auto) Seg Neutrophils % Seg Neuts % (Manual) Lymphocytes % (Manual) Monocytes % (Manual) Seg Neutrophils # Seg Neutrophils # Man Lymphocytes # (Manual) Monocytes # (Manual) D-Dimer ABG pH ABG pO2 ABG HCO3 ABG O2 Saturation ABG Base Excess ABG Hemoglobin VBG pH Oxyhemoglobin Sodium 163 H* 161 H* Potassium 3.1 L Chloride 117.7 H Carbon Dioxide BUN 22 H Creatinine 0.5 L Glucose 274 H POC Glucose 218 H Hemoglobin A1c Lactic Acid Calcium Phosphorus Magnesium Ferritin AST ALT Alkaline Phosphatase Lactate Dehydrogenase C-Reactive Protein Total Protein Albumin Triglycerides Cholesterol Urine Creatinine Urine Microalbumin Vancomycin Trough Salicylates Acetaminophen 06/07/19 06/08/19 06/08/19 17:16 00:04 03:45 WBC RBC Hgb Hct MCH RDW Plt Count Lymph % (Auto) Seg Neutrophils % Seg Neuts % (Manual) Lymphocytes % (Manual) Monocytes % (Manual) Seg Neutrophils # Seg Neutrophils # Man Lymphocytes # (Manual) Monocytes # (Manual) D-Dimer ABG pH 7.504 H ABG pO2 54.2 L ABG HCO3 32.3 H ABG O2 Saturation 93.7 L ABG Base Excess 8.4 H ABG Hemoglobin VBG pH Oxyhemoglobin 92.2 L Sodium Potassium Chloride Carbon Dioxide BUN Creatinine Glucose POC Glucose 284 H 283 H Hemoglobin A1c Lactic Acid Calcium Phosphorus Magnesium Ferritin AST ALT Alkaline Phosphatase Lactate Dehydrogenase C-Reactive Protein Total Protein Albumin Triglycerides Cholesterol Urine Creatinine Urine Microalbumin Vancomycin Trough Salicylates Acetaminophen 06/08/19 06/08/19 06/08/19 05:02 09:33 09:33 WBC RBC Hgb Hct MCH RDW Plt Count Lymph % (Auto) Seg Neutrophils % Seg Neuts % (Manual) Lymphocytes % (Manual) Monocytes % (Manual) Seg Neutrophils # Seg Neutrophils # Man Lymphocytes # (Manual) Monocytes # (Manual) D-Dimer 1319.18 H ABG pH ABG pO2 ABG HCO3 ABG O2 Saturation ABG Base Excess ABG Hemoglobin VBG pH Oxyhemoglobin Sodium Potassium Chloride Carbon Dioxide BUN Creatinine Glucose POC Glucose 291 H Hemoglobin A1c Lactic Acid Calcium Phosphorus Magnesium Ferritin 1274.0 H AST ALT Alkaline Phosphatase Lactate Dehydrogenase C-Reactive Protein Total Protein Albumin Triglycerides Cholesterol Urine Creatinine Urine Microalbumin Vancomycin Trough Salicylates Acetaminophen 06/08/19 06/08/19 06/08/19 09:33 09:33 17:46 WBC 16.0 H RBC Hgb Hct MCH 27 L RDW Plt Count Lymph % (Auto) Seg Neutrophils % Seg Neuts % (Manual) Lymphocytes % (Manual) Monocytes % (Manual) Seg Neutrophils # Seg Neutrophils # Man Lymphocytes # (Manual) Monocytes # (Manual) D-Dimer ABG pH ABG pO2 ABG HCO3 ABG O2 Saturation ABG Base Excess ABG Hemoglobin VBG pH Oxyhemoglobin Sodium 157 H Potassium 3.1 L Chloride 116.7 H Carbon Dioxide BUN 24 H Creatinine 0.5 L Glucose 351 H POC Glucose 309 H Hemoglobin A1c Lactic Acid Calcium Phosphorus 2.20 L Magnesium 2.60 H Ferritin AST ALT Alkaline Phosphatase 131 H Lactate Dehydrogenase 449 H C-Reactive Protein 9.70 H Total Protein 6.1 L Albumin 2.1 L Triglycerides Cholesterol Urine Creatinine Urine Microalbumin Vancomycin Trough Salicylates Acetaminophen 06/08/19 06/08/19 06/09/19 21:55 23:46 04:18 WBC RBC Hgb Hct MCH RDW Plt Count Lymph % (Auto) Seg Neutrophils % Seg Neuts % (Manual) Lymphocytes % (Manual) Monocytes % (Manual) Seg Neutrophils # Seg Neutrophils # Man Lymphocytes # (Manual) Monocytes # (Manual) D-Dimer ABG pH 7.480 H ABG pO2 70.9 L ABG HCO3 32.9 H ABG O2 Saturation ABG Base Excess 8.4 H ABG Hemoglobin 10.3 L VBG pH Oxyhemoglobin 94.8 L Sodium 151 H Potassium 3.3 L Chloride 112.7 H Carbon Dioxide 31 H BUN 24 H Creatinine 0.5 L Glucose 321 H POC Glucose 331 H Hemoglobin A1c Lactic Acid Calcium Phosphorus Magnesium Ferritin AST ALT Alkaline Phosphatase Lactate Dehydrogenase C-Reactive Protein Total Protein Albumin Triglycerides Cholesterol Urine Creatinine Urine Microalbumin Vancomycin Trough Salicylates Acetaminophen 06/09/19 06/09/19 06/09/19 05:35 07:34 07:34 WBC 14.2 H RBC Hgb Hct MCH 27 L RDW Plt Count Lymph % (Auto) Seg Neutrophils % Seg Neuts % (Manual) Lymphocytes % (Manual) Monocytes % (Manual) Seg Neutrophils # Seg Neutrophils # Man Lymphocytes # (Manual) Monocytes # (Manual) D-Dimer ABG pH ABG pO2 ABG HCO3 ABG O2 Saturation ABG Base Excess ABG Hemoglobin VBG pH Oxyhemoglobin Sodium 153 H Potassium 3.0 L Chloride 113.6 H Carbon Dioxide BUN 26 H Creatinine 0.5 L Glucose 306 H POC Glucose 264 H Hemoglobin A1c Lactic Acid Calcium Phosphorus Magnesium Ferritin AST ALT Alkaline Phosphatase Lactate Dehydrogenase 411 H C-Reactive Protein 6.00 H Total Protein Albumin Triglycerides 304 H Cholesterol Urine Creatinine Urine Microalbumin Vancomycin Trough Salicylates Acetaminophen 06/09/19 06/09/19 06/09/19 07:34 07:34 18:29 WBC RBC Hgb Hct MCH RDW Plt Count Lymph % (Auto) Seg Neutrophils % Seg Neuts % (Manual) Lymphocytes % (Manual) Monocytes % (Manual) Seg Neutrophils # Seg Neutrophils # Man Lymphocytes # (Manual) Monocytes # (Manual) D-Dimer 991.99 H ABG pH ABG pO2 ABG HCO3 ABG O2 Saturation ABG Base Excess ABG Hemoglobin VBG pH Oxyhemoglobin Sodium Potassium Chloride Carbon Dioxide BUN Creatinine Glucose POC Glucose 226 H Hemoglobin A1c Lactic Acid Calcium Phosphorus Magnesium Ferritin 1078.0 H AST ALT Alkaline Phosphatase Lactate Dehydrogenase C-Reactive Protein Total Protein Albumin Triglycerides Cholesterol Urine Creatinine Urine Microalbumin Vancomycin Trough Salicylates Acetaminophen 06/09/19 06/09/19 06/10/19 19:22 23:43 04:05 WBC RBC Hgb Hct MCH RDW Plt Count Lymph % (Auto) Seg Neutrophils % Seg Neuts % (Manual) Lymphocytes % (Manual) Monocytes % (Manual) Seg Neutrophils # Seg Neutrophils # Man Lymphocytes # (Manual) Monocytes # (Manual) D-Dimer ABG pH 7.472 H ABG pO2 63.0 L ABG HCO3 31.3 H ABG O2 Saturation 94.5 L ABG Base Excess 6.9 H ABG Hemoglobin VBG pH Oxyhemoglobin 93.0 L Sodium Potassium Chloride 110.1 H Carbon Dioxide BUN 20 H Creatinine 0.4 L Glucose 237 H POC Glucose 177 H Hemoglobin A1c Lactic Acid Calcium Phosphorus Magnesium Ferritin AST ALT Alkaline Phosphatase Lactate Dehydrogenase C-Reactive Protein Total Protein Albumin Triglycerides Cholesterol Urine Creatinine Urine Microalbumin Vancomycin Trough Salicylates Acetaminophen 06/10/19 06/10/19 06/10/19 06:28 12:30 18:08 WBC RBC Hgb Hct MCH RDW Plt Count Lymph % (Auto) Seg Neutrophils % Seg Neuts % (Manual) Lymphocytes % (Manual) Monocytes % (Manual) Seg Neutrophils # Seg Neutrophils # Man Lymphocytes # (Manual) Monocytes # (Manual) D-Dimer ABG pH ABG pO2 ABG HCO3 ABG O2 Saturation ABG Base Excess ABG Hemoglobin VBG pH Oxyhemoglobin Sodium Potassium Chloride Carbon Dioxide BUN Creatinine Glucose POC Glucose 172 H 166 H 172 H Hemoglobin A1c Lactic Acid Calcium Phosphorus Magnesium Ferritin AST ALT Alkaline Phosphatase Lactate Dehydrogenase C-Reactive Protein Total Protein Albumin Triglycerides Cholesterol Urine Creatinine Urine Microalbumin Vancomycin Trough Salicylates Acetaminophen 06/10/19 06/10/19 06/10/19 23:53 Unknown Unknown WBC 13.7 H RBC Hgb Hct MCH RDW Plt Count 84 L Lymph % (Auto) Seg Neutrophils % Seg Neuts % (Manual) Lymphocytes % (Manual) Monocytes % (Manual) Seg Neutrophils # Seg Neutrophils # Man Lymphocytes # (Manual) Monocytes # (Manual) D-Dimer ABG pH ABG pO2 ABG HCO3 ABG O2 Saturation ABG Base Excess ABG Hemoglobin VBG pH Oxyhemoglobin Sodium 148 H Potassium 3.3 L Chloride 111.5 H Carbon Dioxide BUN 20 H Creatinine 0.4 L Glucose 185 H POC Glucose 186 H Hemoglobin A1c Lactic Acid Calcium Phosphorus Magnesium Ferritin AST ALT Alkaline Phosphatase Lactate Dehydrogenase C-Reactive Protein Total Protein Albumin Triglycerides Cholesterol Urine Creatinine Urine Microalbumin Vancomycin Trough Salicylates Acetaminophen 06/11/19 06/11/19 06/11/19 04:31 04:31 04:31 WBC RBC Hgb Hct MCH RDW Plt Count Lymph % (Auto) Seg Neutrophils % Seg Neuts % (Manual) Lymphocytes % (Manual) Monocytes % (Manual) Seg Neutrophils # Seg Neutrophils # Man Lymphocytes # (Manual) Monocytes # (Manual) D-Dimer 1206.09 H ABG pH ABG pO2 ABG HCO3 ABG O2 Saturation ABG Base Excess ABG Hemoglobin VBG pH Oxyhemoglobin Sodium 146 H Potassium 3.3 L Chloride 109.4 H Carbon Dioxide BUN Creatinine 0.5 L Glucose 186 H POC Glucose Hemoglobin A1c Lactic Acid Calcium Phosphorus Magnesium Ferritin 905.9 H AST ALT Alkaline Phosphatase Lactate Dehydrogenase 417 H C-Reactive Protein 3.30 H Total Protein Albumin Triglycerides Cholesterol Urine Creatinine Urine Microalbumin Vancomycin Trough Salicylates Acetaminophen 06/11/19 06/11/19 06/11/19 04:31 05:35 11:41 WBC 17.0 H RBC Hgb Hct MCH 27 L RDW Plt Count Lymph % (Auto) Seg Neutrophils % Seg Neuts % (Manual) Lymphocytes % (Manual) Monocytes % (Manual) Seg Neutrophils # Seg Neutrophils # Man Lymphocytes # (Manual) Monocytes # (Manual) D-Dimer ABG pH ABG pO2 ABG HCO3 ABG O2 Saturation ABG Base Excess ABG Hemoglobin VBG pH Oxyhemoglobin Sodium Potassium Chloride Carbon Dioxide BUN Creatinine Glucose POC Glucose 151 H 209 H Hemoglobin A1c Lactic Acid Calcium Phosphorus Magnesium Ferritin AST ALT Alkaline Phosphatase Lactate Dehydrogenase C-Reactive Protein Total Protein Albumin Triglycerides Cholesterol Urine Creatinine Urine Microalbumin Vancomycin Trough Salicylates Acetaminophen 06/11/19 06/11/19 06/12/19 17:27 23:52 03:58 WBC 14.9 H RBC Hgb Hct MCH RDW Plt Count Lymph % (Auto) Seg Neutrophils % Seg Neuts % (Manual) 72.0 H Lymphocytes % (Manual) 13.0 L Monocytes % (Manual) 13.0 H Seg Neutrophils # Seg Neutrophils # Man 10.7 H Lymphocytes # (Manual) Monocytes # (Manual) 1.9 H D-Dimer ABG pH ABG pO2 ABG HCO3 ABG O2 Saturation ABG Base Excess ABG Hemoglobin VBG pH Oxyhemoglobin Sodium Potassium Chloride Carbon Dioxide BUN Creatinine Glucose POC Glucose 181 H 223 H Hemoglobin A1c Lactic Acid Calcium Phosphorus Magnesium Ferritin AST ALT Alkaline Phosphatase Lactate Dehydrogenase C-Reactive Protein Total Protein Albumin Triglycerides Cholesterol Urine Creatinine Urine Microalbumin Vancomycin Trough Salicylates Acetaminophen 06/12/19 06/12/19 06/12/19 03:58 04:44 10:30 WBC RBC Hgb Hct MCH RDW Plt Count Lymph % (Auto) Seg Neutrophils % Seg Neuts % (Manual) Lymphocytes % (Manual) Monocytes % (Manual) Seg Neutrophils # Seg Neutrophils # Man Lymphocytes # (Manual) Monocytes # (Manual) D-Dimer ABG pH 7.456 H ABG pO2 ABG HCO3 32.7 H ABG O2 Saturation ABG Base Excess 7.7 H ABG Hemoglobin VBG pH Oxyhemoglobin Sodium Potassium 3.4 L Chloride Carbon Dioxide BUN Creatinine 0.4 L Glucose 242 H POC Glucose 203 H Hemoglobin A1c Lactic Acid Calcium Phosphorus Magnesium Ferritin AST 103 H ALT 101 H Alkaline Phosphatase Lactate Dehydrogenase C-Reactive Protein Total Protein 5.9 L Albumin 2.3 L Triglycerides Cholesterol Urine Creatinine Urine Microalbumin Vancomycin Trough Salicylates Acetaminophen 06/12/19 06/13/19 06/13/19 12:01 00:03 02:51 WBC RBC Hgb Hct MCH RDW Plt Count Lymph % (Auto) Seg Neutrophils % Seg Neuts % (Manual) Lymphocytes % (Manual) Monocytes % (Manual) Seg Neutrophils # Seg Neutrophils # Man Lymphocytes # (Manual) Monocytes # (Manual) D-Dimer ABG pH ABG pO2 ABG HCO3 ABG O2 Saturation ABG Base Excess ABG Hemoglobin VBG pH Oxyhemoglobin Sodium Potassium Chloride Carbon Dioxide BUN Creatinine Glucose POC Glucose 178 H 127 H Hemoglobin A1c Lactic Acid Calcium Phosphorus Magnesium Ferritin AST ALT Alkaline Phosphatase Lactate Dehydrogenase 807 H C-Reactive Protein 3.40 H Total Protein Albumin Triglycerides Cholesterol Urine Creatinine Urine Microalbumin Vancomycin Trough Salicylates Acetaminophen 06/13/19 06/13/19 06/13/19 05:17 09:23 09:23 WBC RBC Hgb Hct MCH RDW Plt Count Lymph % (Auto) Seg Neutrophils % Seg Neuts % (Manual) Lymphocytes % (Manual) Monocytes % (Manual) Seg Neutrophils # Seg Neutrophils # Man Lymphocytes # (Manual) Monocytes # (Manual) D-Dimer 1401.68 H ABG pH ABG pO2 ABG HCO3 ABG O2 Saturation ABG Base Excess ABG Hemoglobin VBG pH Oxyhemoglobin Sodium Potassium Chloride Carbon Dioxide BUN Creatinine Glucose POC Glucose 161 H Hemoglobin A1c Lactic Acid Calcium Phosphorus Magnesium Ferritin 1942.0 H AST ALT Alkaline Phosphatase Lactate Dehydrogenase C-Reactive Protein Total Protein Albumin Triglycerides Cholesterol Urine Creatinine Urine Microalbumin Vancomycin Trough Salicylates Acetaminophen 06/13/19 06/13/19 06/14/19 12:03 18:17 00:03 WBC RBC Hgb Hct MCH RDW Plt Count Lymph % (Auto) Seg Neutrophils % Seg Neuts % (Manual) Lymphocytes % (Manual) Monocytes % (Manual) Seg Neutrophils # Seg Neutrophils # Man Lymphocytes # (Manual) Monocytes # (Manual) D-Dimer ABG pH ABG pO2 ABG HCO3 ABG O2 Saturation ABG Base Excess ABG Hemoglobin VBG pH Oxyhemoglobin Sodium Potassium Chloride Carbon Dioxide BUN Creatinine Glucose POC Glucose 147 H 172 H 168 H Hemoglobin A1c Lactic Acid Calcium Phosphorus Magnesium Ferritin AST ALT Alkaline Phosphatase Lactate Dehydrogenase C-Reactive Protein Total Protein Albumin Triglycerides Cholesterol Urine Creatinine Urine Microalbumin Vancomycin Trough Salicylates Acetaminophen 06/14/19 06/14/19 06/14/19 05:43 12:22 14:44 WBC 14.0 H RBC 5.86 H Hgb 16.2 H D Hct 49.3 H D MCH RDW Plt Count Lymph % (Auto) Seg Neutrophils % Seg Neuts % (Manual) 81.0 H Lymphocytes % (Manual) 10.0 L Monocytes % (Manual) Seg Neutrophils # Seg Neutrophils # Man 11.3 H Lymphocytes # (Manual) Monocytes # (Manual) 1.0 H D-Dimer ABG pH ABG pO2 ABG HCO3 ABG O2 Saturation ABG Base Excess ABG Hemoglobin VBG pH Oxyhemoglobin Sodium Potassium Chloride Carbon Dioxide BUN Creatinine Glucose POC Glucose 178 H 218 H Hemoglobin A1c Lactic Acid Calcium Phosphorus Magnesium Ferritin AST ALT Alkaline Phosphatase Lactate Dehydrogenase C-Reactive Protein Total Protein Albumin Triglycerides Cholesterol Urine Creatinine Urine Microalbumin Vancomycin Trough Salicylates Acetaminophen 06/14/19 06/14/19 06/14/19 14:44 16:35 18:01 WBC RBC Hgb Hct MCH RDW Plt Count Lymph % (Auto) Seg Neutrophils % Seg Neuts % (Manual) Lymphocytes % (Manual) Monocytes % (Manual) Seg Neutrophils # Seg Neutrophils # Man Lymphocytes # (Manual) Monocytes # (Manual) D-Dimer ABG pH 7.488 H ABG pO2 66.1 L ABG HCO3 30.2 H ABG O2 Saturation 94.7 L ABG Base Excess 6.3 H ABG Hemoglobin VBG pH Oxyhemoglobin 93.3 L Sodium Potassium 3.4 L Chloride Carbon Dioxide BUN Creatinine 0.3 L Glucose 296 H POC Glucose 215 H Hemoglobin A1c Lactic Acid Calcium Phosphorus Magnesium Ferritin AST ALT Alkaline Phosphatase Lactate Dehydrogenase C-Reactive Protein Total Protein Albumin Triglycerides Cholesterol Urine Creatinine Urine Microalbumin Vancomycin Trough Salicylates Acetaminophen 06/15/19 06/15/19 06/15/19 00:34 04:00 04:00 WBC RBC Hgb Hct MCH RDW Plt Count Lymph % (Auto) Seg Neutrophils % Seg Neuts % (Manual) Lymphocytes % (Manual) Monocytes % (Manual) Seg Neutrophils # Seg Neutrophils # Man Lymphocytes # (Manual) Monocytes # (Manual) D-Dimer 836.6 H ABG pH ABG pO2 ABG HCO3 ABG O2 Saturation ABG Base Excess ABG Hemoglobin VBG pH Oxyhemoglobin Sodium Potassium Chloride Carbon Dioxide BUN Creatinine Glucose POC Glucose 229 H Hemoglobin A1c Lactic Acid Calcium Phosphorus Magnesium Ferritin 908.8 H AST ALT Alkaline Phosphatase Lactate Dehydrogenase C-Reactive Protein Total Protein Albumin Triglycerides Cholesterol Urine Creatinine Urine Microalbumin Vancomycin Trough Salicylates Acetaminophen 06/15/19 06/15/19 06/15/19 04:00 04:00 06:24 WBC 15.6 H RBC Hgb Hct MCH 27 L RDW Plt Count Lymph % (Auto) 10.9 L Seg Neutrophils % 84.1 H Seg Neuts % (Manual) Lymphocytes % (Manual) Monocytes % (Manual) Seg Neutrophils # 13.1 H Seg Neutrophils # Man Lymphocytes # (Manual) Monocytes # (Manual) D-Dimer ABG pH ABG pO2 ABG HCO3 ABG O2 Saturation ABG Base Excess ABG Hemoglobin VBG pH Oxyhemoglobin Sodium Potassium 3.3 L Chloride Carbon Dioxide 31 H D BUN Creatinine 0.4 L Glucose 199 H POC Glucose 192 H Hemoglobin A1c Lactic Acid Calcium Phosphorus Magnesium Ferritin AST ALT Alkaline Phosphatase Lactate Dehydrogenase 386 H C-Reactive Protein 17.00 H Total Protein Albumin Triglycerides Cholesterol Urine Creatinine Urine Microalbumin Vancomycin Trough Salicylates Acetaminophen 06/15/19 06/15/19 06/15/19 12:05 17:02 21:00 WBC RBC Hgb Hct MCH RDW Plt Count Lymph % (Auto) Seg Neutrophils % Seg Neuts % (Manual) Lymphocytes % (Manual) Monocytes % (Manual) Seg Neutrophils # Seg Neutrophils # Man Lymphocytes # (Manual) Monocytes # (Manual) D-Dimer ABG pH ABG pO2 ABG HCO3 ABG O2 Saturation ABG Base Excess ABG Hemoglobin VBG pH Oxyhemoglobin Sodium Potassium Chloride Carbon Dioxide BUN Creatinine Glucose POC Glucose 271 H 239 H 211 H Hemoglobin A1c Lactic Acid Calcium Phosphorus Magnesium Ferritin AST ALT Alkaline Phosphatase Lactate Dehydrogenase C-Reactive Protein Total Protein Albumin Triglycerides Cholesterol Urine Creatinine Urine Microalbumin Vancomycin Trough Salicylates Acetaminophen 06/16/19 06/16/19 06/16/19 00:13 05:16 05:16 WBC 12.4 H RBC Hgb Hct MCH RDW Plt Count Lymph % (Auto) Seg Neutrophils % Seg Neuts % (Manual) Lymphocytes % (Manual) Monocytes % (Manual) Seg Neutrophils # Seg Neutrophils # Man Lymphocytes # (Manual) Monocytes # (Manual) D-Dimer ABG pH ABG pO2 ABG HCO3 ABG O2 Saturation ABG Base Excess ABG Hemoglobin VBG pH Oxyhemoglobin Sodium Potassium 3.4 L Chloride Carbon Dioxide BUN Creatinine 0.5 L Glucose 215 H POC Glucose 230 H Hemoglobin A1c Lactic Acid Calcium Phosphorus Magnesium Ferritin AST ALT Alkaline Phosphatase Lactate Dehydrogenase C-Reactive Protein Total Protein Albumin Triglycerides Cholesterol Urine Creatinine Urine Microalbumin Vancomycin Trough Salicylates Acetaminophen 06/16/19 06/16/19 06/16/19 08:05 12:17 16:44 WBC RBC Hgb Hct MCH RDW Plt Count Lymph % (Auto) Seg Neutrophils % Seg Neuts % (Manual) Lymphocytes % (Manual) Monocytes % (Manual) Seg Neutrophils # Seg Neutrophils # Man Lymphocytes # (Manual) Monocytes # (Manual) D-Dimer ABG pH ABG pO2 ABG HCO3 ABG O2 Saturation ABG Base Excess ABG Hemoglobin VBG pH Oxyhemoglobin Sodium Potassium Chloride Carbon Dioxide BUN Creatinine Glucose POC Glucose 220 H 195 H 223 H Hemoglobin A1c Lactic Acid Calcium Phosphorus Magnesium Ferritin AST ALT Alkaline Phosphatase Lactate Dehydrogenase C-Reactive Protein Total Protein Albumin Triglycerides Cholesterol Urine Creatinine Urine Microalbumin Vancomycin Trough Salicylates Acetaminophen 06/17/19 06/17/19 06/17/19 00:07 05:42 12:07 WBC RBC Hgb Hct MCH RDW Plt Count Lymph % (Auto) Seg Neutrophils % Seg Neuts % (Manual) Lymphocytes % (Manual) Monocytes % (Manual) Seg Neutrophils # Seg Neutrophils # Man Lymphocytes # (Manual) Monocytes # (Manual) D-Dimer ABG pH ABG pO2 ABG HCO3 ABG O2 Saturation ABG Base Excess ABG Hemoglobin VBG pH Oxyhemoglobin Sodium Potassium Chloride Carbon Dioxide BUN Creatinine Glucose POC Glucose 201 H 191 H 269 H Hemoglobin A1c Lactic Acid Calcium Phosphorus Magnesium Ferritin AST ALT Alkaline Phosphatase Lactate Dehydrogenase C-Reactive Protein Total Protein Albumin Triglycerides Cholesterol Urine Creatinine Urine Microalbumin Vancomycin Trough Salicylates Acetaminophen 06/17/19 06/18/19 06/18/19 17:40 00:05 05:32 WBC RBC Hgb Hct MCH RDW Plt Count Lymph % (Auto) Seg Neutrophils % Seg Neuts % (Manual) Lymphocytes % (Manual) Monocytes % (Manual) Seg Neutrophils # Seg Neutrophils # Man Lymphocytes # (Manual) Monocytes # (Manual) D-Dimer ABG pH ABG pO2 ABG HCO3 ABG O2 Saturation ABG Base Excess ABG Hemoglobin VBG pH Oxyhemoglobin Sodium Potassium Chloride Carbon Dioxide BUN Creatinine Glucose POC Glucose 266 H 222 H 273 H Hemoglobin A1c Lactic Acid Calcium Phosphorus Magnesium Ferritin AST ALT Alkaline Phosphatase Lactate Dehydrogenase C-Reactive Protein Total Protein Albumin Triglycerides Cholesterol Urine Creatinine Urine Microalbumin Vancomycin Trough Salicylates Acetaminophen Chest x-ray: image reviewed Allied health notes reviewed: RT
--- NOTE | 2019-06-18 11:30 | Progress Note ---
Assessment and Plan Cultures: Blood culture 06/03/2019 Micrococcus 1 of 4 Urine culture 06/03/2019 no growth Assessment: 48 year old female with history of diabetes, hypertension admitted on 06/03/2019 due to acute altered mental status and shortness of breath, recently returned back from [place]: #Severe sepsis: improved. #Bilateral pneumonia secondary to COVID-19: S/P plaquenil. Off abx. #Acute hypoxemic respiratory failure/ARDS: extubated 06/13/2019. #Acute encephalopathy: Likely due to #1 and high sodium #SHARITA: improved. #Diabetes with DKA #Hypernatremia per IMS, better #Micrococcus in blood culture: 1 of 4 likely a contaminant. Recommendations: continue supportive care and isolation Mayo Medina MD, FACP [facility] ([facility] C: [phone] O: [phone] F: [phone] Subjective Date of service: 06/18/19 Principal diagnosis: Ac hypoxemic resp failure; Bob. PNA; PUI CVOVID-19; DKA; Severe sepsis Interval history: No fever. Remains on high flow oxygen by [place]. Reportingly failed swallow eval. PUI?: Yes COVID19: Positive Objective - Exam Narrative Exam: Physical Exam (reviewed in chart due to PPE conservation) Constitutional: limited due to PPE conservation strategy Head, Ears, Nose: limited due to PPE conservation strategy Eyes: limited due to PPE conservation strategy Neck: limited due to PPE conservation strategy Oral: limited due to PPE conservation strategy Cardiovascular: limited due to PPE conservation strategy Respiratory: limited due to PPE conservation strategy GI: limited due to PPE conservation strategy Musculoskeletal: limited due to PPE conservation strategy Skin: limited due to PPE conservation strategy Hem/Lymphatic: limited due to PPE conservation strategy Psych: limited due to PPE conservation strategy Neurological: limited due to PPE conservation strategy - Constitutional Vitals: Vital Signs Temp Pulse Resp BP Pulse Ox 98.6 F 92 H 18 152/96 97 06/18/19 04:00 06/18/19 09:00 06/18/19 09:00 06/18/19 11:00 06/18/19 11:00 Temperature -Last 24 Hours Temperature 98.6 F Temperature 97.6 F Temperature 98.8 F Temperature 97 F Temperature 98.4 F Temperature 98.4 F - Labs CBC & Chem 7: 06/16/19 05:16 06/16/19 05:16 Labs: Abnormal lab results 06/17/19 06/17/19 06/18/19 Range/Units 12:07 17:40 00:05 POC Glucose 269 H 266 H 222 H (70-105) 06/18/19 Range/Units 05:32 POC Glucose 273 H (70-105)
--- NOTE | 2019-06-18 13:53 | Progress Note ---
Assessment and Plan Assessment and plan: Mrs. Tomas is a 48-year-old female with a history of hypertension, type 2 diabetes mellitus events with altered mental status. She arrived per EMS. Last known time normal 10 PM on night prior to admission. Patient is nonverbal. History obtained from paramedics and electronic medical record. Patient had been ill with fever cough for the past several days. She recently returned back from [place]. EMS discovered patient to be altered with work of breathing. Patient is nonverbal. She was not moving her right side. She is hypoxic at 77% room air. Blood pressure was 140/97. Blood sugar was elevated fingerstick. Hx obtained from [facility] Love realized that patient was not speaking 4 AM. Found her later breathing really heavy. Unresponsive. When she came back from [place] last Saturday. She had high fever. Her doctor ordered test for COVID-19. Dr. Rausch her PCP informed patient that she tested negative. She went to [place] to celebrate her mother's birthday. On admission she was noted to be in DKA and started on DKA protocol. She was al so intubated and on full mechanical ventilatory support. Diagnostic work-up so far EKG shows sinus tachycardia with MAT CT head no acute intracranial process CT cervical spine patchy groundglass consolidative airspace disease right mid to lower lung Mrs. Tomas presents with altered mental status hypoxia. She required mechanical ventilation for oxygenation and airway control. Initially was not moving her right side. With oxygen supplementation she began to move both of her arms. She continued to be nonverbal. She did not follow commands prior to intubation. With CT chest findings and history of fever I strongly suspect COVID 19. Although she previously tested negative there is significant support of false negative test so we will retest. survey form was filled out in the ED by the ED physician through the [facility] department of health as a person under investigation for COVID 19. Patient returned 1 week ago from [place] after celebrating her mother's birthday. * COVID 19 test results came back positive has been advised to forego quarantine himself. COVID 19 Induced Pneumonia Acute hypoxic respiratory failure mild on mechanical ventilation Hypernatremia-remains elevated will increase free water. Hypertension Acute metabolic encephalopathy Right upper extremity weakness now resolved Pneumonia Hypokalemia Leukocytosis Sepsis secondary to pneumonia-with hypothermia Severe metabolic acidosis DKA-resolved Diabetes mellitus with uncontrolled blood sugar Plan 06/04: Remains on full mechanical support. Patient with respiratory alkalosis noted. Adjustment made to the ventilator to decrease the rate. Will replace potassium as hypokalemia still persist. Hypernatremia gradually improving will adjust free water. Patient's anion gap is finally closed will transition to sliding scale coverage with Lantus. Anticipate weaning trial today if patient is amendable to it. Oxygen at requirements per vent settings appears to be improving 06/05: Leukocytosis improving although patient still hypoxic on the ventilator. Awaiting COVID 19 testing results. In addition continue antibiotics for broad- spectrum coverage. Will adjust insulin for better blood sugar control. 06/06: We will increase free water to 300 cc every 4 hours. We will also obtain consultation from account service associate. Otherwise continue current therapy. Also noted to have diastolic hypertension will adjust blood pressure medications. Initiated home meds. 06/07: Sodium gradually improving, will adjust free water to 350 while awaiting todays lab and account service associate. Patient still with non purposeful movement. Will discuss with ID about possible trial drug Ivermectin. Adjust basal insulin to 40 units BID 06/08: ID and pulmonary considering trial of the new medication ivermectin as patient's inflammatory markers went back up. Sodium mildly elevated. In addition to blood sugar. Discontinued D5 water which could be leading to elevated blood sugar. Will adjust free water to 400 every 4 hours. Nephrology following 06/09: Continue supportive care, Continue Management per ID and Critical care team. 06/10 weaning in progress, on D5W for correcting the hypernatremia. Potassium supplemented 06/12/19 probable extubation tomorrow 06/13/19--Extubated today 06/14/19 For transfer to floor 06/14: Patient unable to Transfer to the floor as she became hypoxic requiring H ighflow oxygen, Low potassium noted, will replace, monitor Blood glucose. Exam limited due to limited PPE. Inflammatory markers improving. 06/15: Still concern for possible decompensation. Will continue on ICU status at this time. Aspiration precautions. Continue high flow. Replace electrolytes as needed. 06/16: Discussed with High School Assistant Principal, patient still on High flow oxygen and failed swallow evaluation yesterday. We will continue to follow. We will continue ICU care at this time. A Dobbhoff has been placed for nutritional support. I have updated the patient's and patient's improvement so far. 06/18/19: Patient clinically continues to improve. We will downgrade to stepdown still on high flow tolerating tube feeds. High [employer] Assistant Principal and infectious disease consult input noted EKG reviewed no evidence of atrial fibrillation. Replace potassium DKA protocol with insulin-will be discontinued f/u COVID test - pending Continue COVID isolation precautions per [facility] protocol S/P Plaquenil and azithromycin X 5 DAYS Obtain serial Ferritin, LDH, D-Dimer, CRP every 48h Empiric antibiotic coverage, obtain blood cultures and urine cultures and sputum cultures. Wean from vent as tolerated defer to bag machine operator helper We will monitor EKG for any visualization of the atrial fibrillation. If pe rsist will obtain cardiology consult. DVT and GI prophylaxis The high probability of a clinically significant, sudden or life threatening deterioration of the [pulmonary, neuro,] system(s) required my full and direct attention, intervention and personal management. The aggregate critical care time was [32] minutes. This time is in addition to time spent performing reported procedures but includes the following: [x] Data Review and interpretation [x] Patient assessment and monitoring of vital signs [x] Documentation [x] Medication orders and management History Interval history: Patient seen and examined continues on high flow oxygen postextubation.although patient is still on high flow she is stable. Discussed with downgraded to stepdown unit. PUI?: Yes COVID19: Positive Hospitalist Physical - Physical exam Narrative exam: Constitutional: no acute distress, asleep, other (Atraumatic, normocephalic, no patient -ventilator dyssynchrony) Eyes: non-icteric ENT: Follows some commands left-sided weakness persist Neck: supple, no lymphadenopathy, no JVD Effort: normal Ascultation: Bilateral: diminished breath sounds, rhonchi Percussion: Bilateral: not dull Cardiovascular: irregular rhythm, other (S1,S2, no murmurs) Gastrointestinal: normoactive bowel sounds, soft, non-tender, tender Integumentary: normal Extremities: no cyanosis, no edema, pulses normal, no ischemia or petechiae Neurologic: per staff following some command Psychiatric: other exam limited due to limited PPE's - Constitutional Vitals: Temp Pulse Resp BP Pulse Ox 98.6 F 92 H 18 152/96 97 06/18/19 04:00 06/18/19 09:00 06/18/19 09:00 06/18/19 11:00 06/18/19 11:00 General appearance: Present: no acute distress, well-nourished MACK score - Mack Score Age > 65: (0) No 3 or more CAD Risk Factors: (1) Yes 2 or more Angina events in past 24 hrs: (0) No Known CAD with more than 50% Stenosis: (0) No Elevated Cardiac Markers: (0) No ST Deviation Greater than 0.5mm: (0) No Results - Labs CBC & Chem 7: 06/16/19 05:16 06/16/19 05:16 Labs: Laboratory Last Values WBC 12.4 K/mm3 (4.5-11.0) H 06/16/19 05:16 RBC 4.62 M/mm3 (3.65-5.03) 06/16/19 05:16 Hgb 12.8 gm/dl (10.1-14.3) 06/16/19 05:16 Hct 40.3 % (30.3-42.9) 06/16/19 05:16 MCV 87 fl (79-97) 06/16/19 05:16 MCH 28 pg (28-32) 06/16/19 05:16 MCHC 32 % (30-34) 06/16/19 05:16 RDW 14.5 % (13.2-15.2) 06/16/19 05:16 Plt Count 215 K/mm3 (140-440) 06/16/19 05:16 Lymph % (Auto) 10.9 % (13.4-35.0) L 06/15/19 04:00 [place] % (Auto) 4.6 % (0.0-7.3) 06/15/19 04:00 Eos % (Auto) 0.1 % (0.0-4.3) 06/15/19 04:00 Baso % (Auto) 0.3 % (0.0-1.8) 06/15/19 04:00 Lymph # 1.7 K/mm3 (1.2-5.4) 06/15/19 04:00 [place] # 0.7 K/mm3 (0.0-0.8) 06/15/19 04:00 Eos # 0.0 K/mm3 (0.0-0.4) 06/15/19 04:00 Baso # 0.0 K/mm3 (0.0-0.1) 06/15/19 04:00 Add Manual Diff Complete 06/14/19 14:44 Total Counted 100 06/14/19 14:44 Seg Neutrophils % 84.1 % (40.0-70.0) H 06/15/19 04:00 Seg Neuts % (Manual) 81.0 % (40.0-70.0) H 06/14/19 14:44 Band Neutrophils % 0 % 06/14/19 14:44 Lymphocytes % (Manual) 10.0 % (13.4-35.0) L 06/14/19 14:44 Reactive Lymphs % (Man) 0 % 06/14/19 14:44 Monocytes % (Manual) 7.0 % (0.0-7.3) 06/14/19 14:44 Eosinophils % (Manual) 1.0 % (0.0-4.3) 06/14/19 14:44 Basophils % (Manual) 1.0 % (0.0-1.8) 06/14/19 14:44 Metamyelocytes % 0 % 06/14/19 14:44 Myelocytes % 0 % 06/14/19 14:44 Promyelocytes % 0 % 06/14/19 14:44 Blast Cells % 0 % 06/14/19 14:44 Nucleated RBC % Not Reportable 06/14/19 14:44 Seg Neutrophils # 13.1 K/mm3 (1.8-7.7) H 06/15/19 04:00 Seg Neutrophils # Man 11.3 K/mm3 (1.8-7.7) H 06/14/19 14:44 Band Neutrophils # 0.0 K/mm3 06/14/19 14:44 Lymphocytes # (Manual) 1.4 K/mm3 (1.2-5.4) 06/14/19 14:44 Abs React Lymphs (Man) 0.0 K/mm3 06/14/19 14:44 Monocytes # (Manual) 1.0 K/mm3 (0.0-0.8) H 06/14/19 14:44 Eosinophils # (Manual) 0.1 K/mm3 (0.0-0.4) 06/14/19 14:44 Basophils # (Manual) 0.1 K/mm3 (0.0-0.1) 06/14/19 14:44 Metamyelocytes # 0.0 K/mm3 06/14/19 14:44 Myelocytes # 0.0 K/mm3 06/14/19 14:44 Promyelocytes # 0.0 K/mm3 06/14/19 14:44 Blast Cells # 0.0 K/mm3 06/14/19 14:44 WBC Morphology Not Reportable 06/14/19 14:44 Hypersegmented Neuts Not Reportable 06/14/19 14:44 Hyposegmented Neuts Not Reportable 06/14/19 14:44 Hypogranular Neuts Not Reportable 06/14/19 14:44 Smudge Cells Not Reportable 06/14/19 14:44 Toxic Granulation Not Reportable 06/14/19 14:44 Toxic Vacuolation Not Reportable 06/14/19 14:44 Dohle Bodies Not Reportable 06/14/19 14:44 Pelger-Huet Anomaly Not Reportable 06/14/19 14:44 Stephanie Rods Not Reportable 06/14/19 14:44 Platelet Estimate Not Reportable 06/14/19 14:44 Clumped Platelets Not Reportable 06/14/19 14:44 Plt Clumps, EDTA Not Reportable 06/14/19 14:44 Large Platelets Not Reportable 06/14/19 14:44 Giant Platelets Not Reportable 06/14/19 14:44 Platelet Satelliting Not Reportable 06/14/19 14:44 Plt Morphology Comment Not Reportable 06/14/19 14:44 RBC Morphology Not Reportable 06/14/19 14:44 Dimorphic RBCs Not Reportable 06/14/19 14:44 Polychromasia Not Reportable 06/14/19 14:44 Hypochromasia 1+ 06/14/19 14:44 Poikilocytosis Not Reportable 06/14/19 14:44 Anisocytosis 1+ 06/14/19 14:44 Microcytosis Not Reportable 06/14/19 14:44 Macrocytosis Not Reportable 06/14/19 14:44 Spherocytes Not Reportable 06/14/19 14:44 Pappenheimer Bodies Not Reportable 06/14/19 14:44 Sickle Cells Not Reportable 06/14/19 14:44 Target Cells Not Reportable 06/14/19 14:44 Tear Drop Cells Not Reportable 06/14/19 14:44 Ovalocytes Not Reportable 06/14/19 14:44 Helmet Cells Not Reportable 06/14/19 14:44 [place] Bodies Not Reportable 06/14/19 14:44 [place] Rings Not Reportable 06/14/19 14:44 Jessica Cells Not Reportable 06/14/19 14:44 Bite Cells Not Reportable 06/14/19 14:44 Crenated Cell Not Reportable 06/14/19 14:44 Elliptocytes Not Reportable 06/14/19 14:44 Acanthocytes (Spur) Not Reportable 06/14/19 14:44 Rouleaux Not Reportable 06/14/19 14:44 Hemoglobin C Crystals Not Reportable 06/14/19 14:44 Schistocytes Not Reportable 06/14/19 14:44 Malaria parasites Not Reportable 06/14/19 14:44 Elias Bodies Not Reportable 06/14/19 14:44 Hem Pathologist Commnt No 06/14/19 14:44 D-Dimer 836.6 ng/mlDDU (0-234) H 06/15/19 04:00 ABG pH 7.488 pH Units (7.350-7.450) H 06/14/19 16:35 ABG pCO2 40.7 mm Hg 06/14/19 16:35 ABG pO2 66.1 mm Hg (80.0-90.0) L 06/14/19 16:35 ABG HCO3 30.2 mmol/L (20.0-26.0) H 06/14/19 16:35 ABG O2 Saturation 94.7 % (95.0-99.0) L 06/14/19 16:35 ABG O2 Content 19.1 (0.0-44) 06/14/19 16:35 ABG Base Excess 6.3 mmol/L (-2.0-3.0) H 06/14/19 16:35 ABG Hemoglobin 14.6 gm/dl (12.0-16.0) 06/14/19 16:35 ABG Carboxyhemoglobin 1.0 % (0.0-5.0) 06/14/19 16:35 ABG Methemoglobin 0.5 % (0.0-1.5) 06/14/19 16:35 VBG pH 6.901 (7.320-7.420) L* 06/03/19 11:51 Oxyhemoglobin 93.3 % (95.0-99.0) L 06/14/19 16:35 FiO2 80 % 06/14/19 16:35 Sodium 145 mmol/L (137-145) 06/16/19 05:16 Potassium 3.4 mmol/L (3.6-5.0) L 06/16/19 05:16 Chloride 104.0 mmol/L (98-107) 06/16/19 05:16 Carbon Dioxide 27 mmol/L (22-30) 06/16/19 05:16 Anion Gap 17 mmol/L 06/16/19 05:16 BUN 14 mg/dL (7-17) 06/16/19 05:16 Creatinine 0.5 mg/dL (0.7-1.2) L 06/16/19 05:16 Estimated GFR > 60 ml/min 06/16/19 05:16 BUN/Creatinine Ratio 28 % 06/16/19 05:16 Glucose 215 mg/dL (65-100) H 06/16/19 05:16 POC Glucose 299 (70-105) H 06/18/19 11:59 Hemoglobin A1c 9.6 % (4-6) H 06/03/19 16:03 Lactic Acid 1.90 mmol/L (0.7-2.0) 06/03/19 21:32 Calcium 9.7 mg/dL (8.4-10.2) 06/16/19 05:16 Phosphorus 2.20 mg/dL (2.5-4.5) L 06/08/19 09:33 Magnesium 2.60 mg/dL (1.7-2.3) H 06/08/19 09:33 Ferritin 908.8 ng/mL (13.0-400.0) H 06/15/19 04:00 Total Bilirubin 0.20 mg/dL (0.1-1.2) 06/12/19 03:58 AST 103 units/L (5-40) H 06/12/19 03:58 ALT 101 units/L (7-56) H 06/12/19 03:58 Alkaline Phosphatase 128 units/L (35-129) 06/12/19 03:58 Lactate Dehydrogenase 386 units/L (91-180) H 06/15/19 04:00 Troponin T < 0.010 ng/mL (0.00-0.029) 06/03/19 11:51 C-Reactive Protein 17.00 mg/dL (0.00-1.30) H 06/15/19 04:00 Total Protein 5.9 g/dL (6.3-8.2) L 06/12/19 03:58 Albumin 2.3 g/dL (3.9-5) L 06/12/19 03:58 Albumin/Globulin Ratio 0.6 % 06/12/19 03:58 Triglycerides 304 mg/dL (2-149) H 06/09/19 07:34 Cholesterol 250 mg/dL (50-199) H 06/03/19 19:00 LDL Cholesterol Direct TNR 06/03/19 19:00 HDL Cholesterol 46 mg/dL (40-59) 06/03/19 19:00 Cholesterol/HDL Ratio 5.43 % 06/03/19 19:00 Procalcitonin 0.10 ng/mL (<0.15) 06/13/19 09:23 Urine Color Yellow (Yellow) 06/03/19 11:48 Urine Turbidity Clear (Clear) 06/03/19 11:48 Urine pH 6.0 (5.0-7.0) 06/03/19 11:48 Ur Specific [place] 1.026 (1.003-1.030) 06/03/19 11:48 Urine Protein 100 mg/dl mg/dL (Negative) 06/03/19 11:48 Urine Glucose (UA) >=500 mg/dL (Negative) 06/03/19 11:48 Urine Ketones 80 mg/dL (Negative) 06/03/19 11:48 Urine Blood Mod (Negative) 06/03/19 11:48 Urine Nitrite Neg (Negative) 06/03/19 11:48 Urine Bilirubin Neg (Negative) 06/03/19 11:48 Urine Urobilinogen < 2.0 mg/dL (<2.0) 06/03/19 11:48 Ur Leukocyte Esterase Neg (Negative) 06/03/19 11:48 Urine WBC (Auto) 1.0 /HPF (0.0-6.0) 06/03/19 11:48 Urine RBC (Auto) 2.0 /HPF (0.0-6.0) 06/03/19 11:48 Granular Casts 4 /LPF 06/03/19 11:48 Urine Mucus Few /HPF 06/03/19 11:48 Urine Osmolality 755 Mosm/kg 06/07/19 17:00 Urine Creatinine 37.4 mg/dL (0.1-20.0) H 06/03/19 11:48 Urine Microalbumin 65.1 mg/dL (0.1-34.0) H 06/03/19 11:48 Microalb/Creat Ratio 1740.6 ug/mg 06/03/19 11:48 Urine Sodium 130 mmol/L 06/07/19 17:00 Urine Chloride 172.4 mmolL (110-250) 06/07/19 17:00 Urine HCG, Qual Negative (Negative) 06/03/19 11:48 Vancomycin Trough 4.2 ug/mL (5.0-20.0) L 06/05/19 21:00 Salicylates < 0.3 mg/dL (2.8-20.0) L 06/03/19 11:51 Urine Opiates Screen Presumptive negative 06/03/19 11:48 Urine Methadone Screen Presumptive negative 06/03/19 11:48 Acetaminophen < 5.0 ug/mL (10.0-30.0) L 06/03/19 11:51 Ur Barbiturates Screen Presumptive negative 06/03/19 11:48 Ur Phencyclidine Scrn Presumptive negative 06/03/19 11:48 Ur Amphetamines Screen Presumptive negative 06/03/19 11:48 U Benzodiazepines Scrn Presumptive negative 06/03/19 11:48 Urine Cocaine Screen Presumptive negative 06/03/19 11:48 U Marijuana (THC) Screen Presumptive negative 06/03/19 11:48 Drugs of Abuse Note Disclamer 06/03/19 11:48 Plasma/Serum Alcohol < 0.01 % (0-0.07) 06/03/19 11:51 Hepatitis A IgM Ab Non-reactive (NonReactive) 06/04/19 08:19 Hep Bs Antigen Non-reactive (Negative) 06/04/19 08:19 Hep B Core IgM Ab Non-reactive (NonReactive) 06/04/19 08:19 Hepatitis C Antibody Non-reactive (NonReactive) 06/04/19 08:19 Influenza A (Rapid) Negative (Negative) 06/03/19 Unknown Influenza B (Rapid) Negative (Negative) 06/03/19 Unknown Miscellaneous Test See scanned result 06/05/19 Unknown Alves/IV: Voiding Method External Female Catheter IV Catheter Type [Left Wrist] INT / Saline Lock IV Catheter Type [Right Hand] INT / Saline Lock IV Catheter Type [Left Hand] INT / Saline Lock IV Catheter Type [Right INT / Saline Lock Antecubital] IV Catheter Type [Left Peripheral IV Antecubital] Active Medications - Current Medications Current Medications: Generic Name Dose Route Start Last Admin Trade Name Freq PRN Reason Stop Dose Admin Albuterol 2 puff 06/15/19 12:24 Proair IH Q4HRT PRN Shortness Of Breath Amlodipine Besylate 5 mg 06/13/19 14:00 06/18/19 09:40 Amlodipine PO 5 mg QDAY JOSE ROBERTO Administration Lipase/Protease/Amylase 1 each 06/05/19 09:[address] 10,500 Unit FEEDTUBE PRN PRN For Clogged Feeding Tube Dextrose 50 ml 06/03/19 13:57 D50w (25gm) Syringe IV Q30MIN PRN Hypoglycemia Protocol Famotidine 20 mg 06/06/19 10:00 06/18/19 09:40 Pepcid PO 20 mg BID JOSE ROBERTO Administration Heparin Sodium (Porcine) 5,000 unit 06/03/19 14:15 06/18/19 09:40 Heparin SUB-Q 5,000 unit Q12HR JOSE ROBERTO Administration Hydralazine HCl 10 mg 06/07/19 08:42 06/17/19 02:25 Apresoline IV 10 mg Q4HR PRN Administration Hypertension Hydrophilic Ointment 1 applic 06/03/19 11:02 Vaseline Lip Therapy TP Q2HR PRN Dry Lips Insulin Glargine 15 units 06/18/19 22:00 Lantus SUB-Q QHS JOSE ROBERTO Insulin Human Regular 0 units 06/16/19 18:00 06/18/19 06:48 Humulin R SUB-Q 4 units Q6H JOSE ROBERTO Administration Protocol Losartan Potassium 50 mg 06/07/19 10:00 06/18/19 09:40 Cozaar PO 50 mg QDAY JOSE ROBERTO Administration Multi-Ingred Cream/Lotion/Oil/Oint 1 applic 06/03/19 11:02 Artificial Tears Ophth Oint OU Q4HR PRN Dry Eye(s) Quetiapine Fumarate 25 mg 06/18/19 22:00 Seroquel PO QHS JOSE ROBERTO Senna 8.6 mg 06/03/19 22:00 06/18/19 09:40 Senokot PO 8.6 mg BID JOSE ROBERTO Administration Simple Syrup 15 ml 06/05/19 09:59 Simple Syrup FEEDTUBE PRN PRN Hypoglycemia Simple Syrup 30 ml 06/05/19 09:59 Simple Syrup FEEDTUBE PRN PRN Hypoglycemia Sodium Bicarbonate 325 mg 06/05/19 09:59 Sodium Bicarbonate FEEDTUBE PRN PRN For Clogged Feeding Tube Sodium Chloride 10 ml 06/03/19 22:00 06/18/19 09:41 Sodium Chloride Flush Syringe 10 Ml IV 10 ml BID JOSE ROBERTO Administration Sodium Chloride 10 ml 06/03/19 13:57 Sodium Chloride Flush Syringe 10 Ml IV PRN PRN LINE FLUSH Nutrition/Malnutrition Assess - Dietary Evaluation Nutrition/Malnutrition Findings: Nutrition Notes Start: 06/04/19 08:30 Freq: Status: Active Protocol: Document 06/17/19 08:35 LM (Rec: 06/17/19 08:42 LM [id number]) Nutrition Notes Need for Assessment generated from: MD Order Initial or Follow up Reassessment Current Diagnosis Diabetes,Sepsis,Hypertension, Respiratory Failure, Hyperlipidemia Other Pertinent Diagnosis COVID-19 positive, Pneu, metabolic encephalopathy Current Diet NPO Labs/Tests POC glu 191 Pertinent Medications Humulin Height 5 ft 6 in Weight 81.1 kg [place] Body Weight (kg) 59.09 BMI 28.8 Weight Status Overweight Subjective/Other Information MD consult for TF. OUTSIDE SALES ACCOUNT REPRESENTATIVE recommends pt to remain NPO. Burn Absent Trauma Absent Current % PO Negligible Minimum of two criteria No Fluid Accumulation Mild (non-severe) #1 Nutrition Diagnosis Inadequate oral intake Diagnosis Progress(for reassessment Continues documentation) Is patient on ventilator? No Is Patient Ambulatory and/or Out of Bed No REE-([facility]-confined to bed) [phone] Calculation Used for Recommendations [facility] Additional Notes Protein: 65-81g (0.8-1g/kg) Fluid: 1ml/kcal Nutrition Intervention Change Diet Order: TF Nutrition Support: Glucerna 1.2 at 60ml/hr Flush 100 ml q4h Kcal 1,728 Protein (gm) 86 Fluid (mL) 1,159 Goal #1 TF start/tolerance Anticipated Discharge Needs: unable to determine at this time Follow-Up By: 06/19/19 Additional Comments F/U for TF start/tolerance
[2019-06-18] MEDS: QUEtiapine 25 MG TAB PO SCH (21:44)
[2019-06-18] MEDS ORDERED: INSULIN GLARGINE 100 UNITS/ML SUB-Q SCH (22:00)
[2019-06-19] MEDS: INSULIN REGULAR, HUMAN 100 UNITS/1 ML SUB-Q SCH ×4 (00:02→18:29)
[2019-06-19] MEDS ORDERED: INSULIN GLARGINE 100 UNITS/ML SUB-Q ONE (10:00)
[2019-06-19] MEDS: FAMOTIDINE 20 MG TAB PO SCH ×2 (10:57→21:25)
[2019-06-19] MEDS: amLODIPine 5 MG TAB PO SCH (10:57)
[2019-06-19] MEDS: LOSARTAN 50 MG TAB PO SCH (10:57)
[2019-06-19] MEDS: SENNOSIDES 8.6 MG TAB PO SCH ×2 (10:57→21:24)
[2019-06-19] MEDS: HEPARIN 5,000 UNIT/1 ML VIAL SUB-Q SCH ×2 (10:57→21:22)
--- NOTE | 2019-06-19 12:14 | Progress Note ---
Assessment and Plan Cultures: Blood culture 06/03/2019 Micrococcus 1 of 4 Urine culture 06/03/2019 no growth Assessment: 48 year old female with history of diabetes, hypertension admitted on 06/03/2019 due to acute altered mental status and shortness of breath, recently returned back from [place]: #Severe sepsis: improved. #Bilateral pneumonia secondary to COVID-19: S/P plaquenil. Off abx. #Acute hypoxemic respiratory failure/ARDS: extubated 06/13/2019. #Acute encephalopathy: Likely due to #1 and high sodium #SHARITA: improved. #Diabetes with DKA #Hypernatremia per IMS, better #Micrococcus in blood culture: 1 of 4 likely a contaminant. Recommendations: continue glycemic control continue supportive care and isolation Mayo Medina MD, FACP [facility] C: [phone] O: [phone] F: [phone] Subjective Date of service: 06/19/19 Principal diagnosis: Ac hypoxemic resp failure; Bob. PNA; PUI CVOVID-19; DKA; Severe sepsis Interval history: No fever. Remains on high flow oxygen by NH. PUI?: Yes COVID19: Positive Objective - Exam Narrative Exam: Physical Exam (reviewed in chart due to PPE conservation) Constitutional: limited due to PPE conservation strategy Head, Ears, Nose: limited due to PPE conservation strategy Eyes: limited due to PPE conservation strategy Neck: limited due to PPE conservation strategy Oral: limited due to PPE conservation strategy Cardiovascular: limited due to PPE conservation strategy Respiratory: limited due to PPE conservation strategy GI: limited due to PPE conservation strategy Musculoskeletal: limited due to PPE conservation strategy Skin: limited due to PPE conservation strategy Hem/Lymphatic: limited due to PPE conservation strategy Psych: limited due to PPE conservation strategy Neurological: limited due to PPE conservation strategy - Constitutional Vitals: Vital Signs Temp Pulse Resp BP Pulse Ox 98.3 F 104 H 19 165/109 96 06/19/19 08:00 06/19/19 10:57 06/19/19 10:01 06/19/19 10:57 06/19/19 10:01 Temperature -Last 24 Hours Temperature 98.3 F Temperature 98.4 F Temperature 99.1 F Temperature 98.8 F Temperature 98.2 F Temperature 99.0 F - Labs CBC & Chem 7: 04/14/20 05:16 06/16/19 05:16 Labs: Abnormal lab results 06/18/19 06/18/19 06/18/19 Range/Units 17:40 17:58 20:48 POC Glucose 272 H 301 H 282 H (70-105) 06/18/19 Range/Units 23:30 POC Glucose 283 H (70-105)
--- NOTE | 2019-06-19 12:27 | Progress Note ---
Assessment and Plan Sepsis secondary to pneumonia-with hypothermia Acute hypoxic respiratory failure ,s/p mechanical ventilation POSITIVE COVID 19 - severe COVID pneumonia. -Transmission likely from community recent travel to [place]. - Ferritin at 1,037-->1,649-->1,319. LDH 673-->449. CRP 14-->9. Ddimer 434-->1319 DKA, treated Diabetes mellitus with uncontrolled blood sugar Acute metabolic encephalopathy, improving Pneumonia Leukocytosis Paroxysmal atrial fibrillation likely new onset Severe metabolic acidosis-improving Hypernatremia-improving Hypokalemia Oropharyngeal dysphagia -Continue with enteric nutritional support -Increase free water flushes fro hypernatremia, monitor BMP -Continue aspiration precautions, HOB>40 - Continue supplemental oxygen to keep O2 sats >92% -If persistent weakness, may benefit from MRI of the brain to evaluate for intra-cranial pathology. This could be a combination of critical illness myopathy or the neurologic manifestations of COVID -Recommend retesting for COVID-19, she is a good candidate for LTACH to wean supplemental oxygen and low level rehab -ABG, CXR prn -Continue all supportive care as documented - Monitor glycemic control, with target blood glucose 140-180 mg/dL while critically ill. -Avoid hypoglycemia - Goal to keep Potassium 4 and Magnesium 2 to optimize respiratory muscle function -VTE prophylaxis on heparin -Stress ulcer prophylaxis- Famotidine -Continue to avoid nephrotoxins, adjust all medications for CrCL and GFR -Follow up BMP and CBC prn - Continue bronchodilators with pulmonary hygiene - Continue to maintain of sleep-wake cycle, avoid delirium - PT/OT/ROM exercises - Continue mobility protocol and skin assessment per protocol for pressure ulcer prevention - s/p Influenza and pneumonia vaccination -Continue COVID isolation precautions per [facility] protocol -Check serial Ferritin, LDH, D-Dimer, CRP per [facility] protocol -s/p hydroxychloroquine (total 5 days) Day 5 of 5 and zinc -s/p antibiotics for CAP s/p steroids s/p Acterma - continue other care per attending / other consultants CONDITION: FAIR PROGNOSIS: GUARDED CODE STATUS: FULL CODE Subjective Date of service: 06/19/19 Principal diagnosis: Ac hypoxemic resp failure; Bob. PNA; PUI CVOVID-19; DKA; Severe sepsis Interval history: Follow up for: Acute hypoxemic respiratory failure s/p MVS; COVID 19 pneumonia;DKA ; Acute metabolic encephalopathy; Sepsis; Fevers; SHARITA; Seen and examined. Vitals, labs, medications, chart and imaging reviewed. Extubated, On going need for high flow oxygen therapy No fevers overnight, more awake and alert. Tolerating tube feeding via SBFT PUI?: Yes COVID19: Positive Objective - Exam Narrative Exam: Constitutional: no acute distress, asleep, other (Atraumatic, normocephalic,) Eyes: non-icteric ENT: Follows some commands moves all ext Neck: supple, no lymphadenopathy, no JVD Effort: normal Ascultation: Bilateral: diminished breath sounds, rhonchi Percussion: Bilateral: not dull Cardiovascular: irregular rhythm, other (S1,S2, no murmurs). Right upper extremity edema Gastrointestinal: normoactive bowel sounds, soft, non-tender, tender Integumentary: normal Extremities: no cyanosis, no edema, pulses normal, no ischemia or petechiae Neurologic: per staff following some command Vital Signs - 12hr 06/19/19 06/19/19 06/19/19 01:00 02:00 03:00 Temperature Pulse Rate 100 H 100 H 96 H Pulse Rate [ From Monitor] Respiratory 24 28 H 22 Rate Blood Pressure 127/86 137/83 112/77 O2 Sat by Pulse 98 97 98 Oximetry 06/19/19 06/19/19 06/19/19 03:03 03:34 03:44 Temperature Pulse Rate 96 H Pulse Rate [ 95 H From Monitor] Respiratory 24 Rate Blood Pressure O2 Sat by Pulse 97 98 Oximetry 06/19/19 06/19/19 06/19/19 03:49 04:00 05:01 Temperature 98.4 F Pulse Rate 92 H 97 H Pulse Rate [ From Monitor] Respiratory 21 30 H Rate Blood Pressure 131/87 O2 Sat by Pulse 98 95 Oximetry 06/19/19 06/19/19 06/19/19 06:01 07:01 08:00 Temperature 98.3 F Pulse Rate 98 H 98 H 101 H Pulse Rate [ 109 H From Monitor] Respiratory 23 24 29 H Rate Blood Pressure 165/109 O2 Sat by Pulse 97 98 96 Oximetry 06/19/19 06/19/19 06/19/19 09:01 10:01 10:57 Temperature Pulse Rate 101 H 100 H 104 H Pulse Rate [ From Monitor] Respiratory 32 H 19 Rate Blood Pressure 165/109 165/109 165/109 O2 Sat by Pulse 93 96 Oximetry 06/19/19 06/19/19 11:01 12:00 Temperature Pulse Rate 102 H 102 H Pulse Rate [ From Monitor] Respiratory 27 H 18 Rate Blood Pressure 165/109 124/87 O2 Sat by Pulse 95 96 Oximetry Constitutional: no acute distress, alert, other (Atraumatic, normocephalic, ) Eyes: non-icteric ENT: other Neck: supple, no lymphadenopathy, no JVD Effort: mildly labored Ascultation: Bilateral: clear, diminished breath sounds, rhonchi Percussion: Bilateral: not dull Cardiovascular: irregular rhythm, other (S1,S2, no murmurs) Gastrointestinal: normoactive bowel sounds, soft, non-tender, tender Integumentary: normal Extremities: no cyanosis, no edema, pulses normal, no ischemia or petechiae Neurologic: normal mental status, non-focal exam, pupils equal and round, motor strength normal and (generally weak) Psychiatric: mood appropriate, affect normal CBC and BMP: 06/20/19 04:50 06/20/19 04:50 ABG, PT/INR, D-dimer: ABG ABG pH 7.488 pH Units (7.350-7.450) H 06/14/19 16:35 ABG pCO2 40.7 mm Hg 06/14/19 16:35 ABG pO2 66.1 mm Hg (80.0-90.0) L 06/14/19 16:35 ABG O2 Saturation 94.7 % (95.0-99.0) L 06/14/19 16:35 PT/INR, D-dimer D-Dimer 836.6 ng/mlDDU (0-234) H 06/15/19 04:00 Abnormal lab findings: Abnormal Labs 06/03/19 06/03/19 06/03/19 10:59 11:15 11:48 WBC RBC Hgb Hct MCH RDW Plt Count Lymph % (Auto) Seg Neutrophils % Seg Neuts % (Manual) Lymphocytes % (Manual) Monocytes % (Manual) Seg Neutrophils # Seg Neutrophils # Man Lymphocytes # (Manual) Monocytes # (Manual) D-Dimer ABG pH ABG pO2 ABG HCO3 ABG O2 Saturation ABG Base Excess ABG Hemoglobin VBG pH Oxyhemoglobin Sodium Potassium Chloride Carbon Dioxide BUN Creatinine Glucose POC Glucose 372 H Hemoglobin A1c Lactic Acid Calcium Phosphorus 11.70 H Magnesium 4.40 H Ferritin AST ALT Alkaline Phosphatase Lactate Dehydrogenase C-Reactive Protein Total Protein Albumin Triglycerides Cholesterol Urine Creatinine 37.4 H Urine Microalbumin 65.1 H Vancomycin Trough Salicylates Acetaminophen 06/03/19 06/03/19 06/03/19 11:51 11:51 11:51 WBC 23.3 H RBC 6.43 H Hgb 17.7 H Hct 59.9 H* MCH RDW 17.1 H Plt Count Lymph % (Auto) Seg Neutrophils % Seg Neuts % (Manual) 71.0 H Lymphocytes % (Manual) 11.0 L Monocytes % (Manual) 8.0 H Seg Neutrophils # Seg Neutrophils # Man 16.5 H Lymphocytes # (Manual) Monocytes # (Manual) 1.9 H D-Dimer ABG pH ABG pO2 ABG HCO3 ABG O2 Saturation ABG Base Excess ABG Hemoglobin VBG pH Oxyhemoglobin Sodium Potassium Chloride Carbon Dioxide 4 L* BUN 41 H Creatinine 1.8 H Glucose 636 H* POC Glucose Hemoglobin A1c Lactic Acid 3.20 H* Calcium 10.9 H Phosphorus Magnesium Ferritin AST 43 H ALT Alkaline Phosphatase 147 H Lactate Dehydrogenase 673 H C-Reactive Protein 14.70 H Total Protein 8.9 H Albumin Triglycerides Cholesterol Urine Creatinine Urine Microalbumin Vancomycin Trough Salicylates Acetaminophen 06/03/19 06/03/19 06/03/19 11:51 11:51 11:51 WBC RBC Hgb Hct MCH RDW Plt Count Lymph % (Auto) Seg Neutrophils % Seg Neuts % (Manual) Lymphocytes % (Manual) Monocytes % (Manual) Seg Neutrophils # Seg Neutrophils # Man Lymphocytes # (Manual) Monocytes # (Manual) D-Dimer ABG pH ABG pO2 ABG HCO3 ABG O2 Saturation ABG Base Excess ABG Hemoglobin VBG pH 6.901 L* Oxyhemoglobin Sodium Potassium Chloride Carbon Dioxide BUN Creatinine Glucose POC Glucose Hemoglobin A1c Lactic Acid Calcium Phosphorus Magnesium Ferritin AST ALT Alkaline Phosphatase Lactate Dehydrogenase C-Reactive Protein Total Protein Albumin Triglycerides Cholesterol Urine Creatinine Urine Microalbumin Vancomycin Trough Salicylates < 0.3 L Acetaminophen < 5.0 L 06/03/19 06/03/19 06/03/19 11:51 11:51 12:34 WBC RBC Hgb Hct MCH RDW Plt Count Lymph % (Auto) Seg Neutrophils % Seg Neuts % (Manual) Lymphocytes % (Manual) Monocytes % (Manual) Seg Neutrophils # Seg Neutrophils # Man Lymphocytes # (Manual) Monocytes # (Manual) D-Dimer 4311.60 H ABG pH ABG pO2 ABG HCO3 ABG O2 Saturation ABG Base Excess ABG Hemoglobin VBG pH Oxyhemoglobin Sodium Potassium Chloride Carbon Dioxide BUN Creatinine Glucose POC Glucose Hemoglobin A1c Lactic Acid 5.20 H* Calcium Phosphorus Magnesium Ferritin 1037.0 H AST ALT Alkaline Phosphatase Lactate Dehydrogenase C-Reactive Protein Total Protein Albumin Triglycerides Cholesterol Urine Creatinine Urine Microalbumin Vancomycin Trough Salicylates Acetaminophen 06/03/19 06/03/19 06/03/19 14:30 16:03 17:00 WBC RBC Hgb Hct MCH RDW Plt Count Lymph % (Auto) Seg Neutrophils % Seg Neuts % (Manual) Lymphocytes % (Manual) Monocytes % (Manual) Seg Neutrophils # Seg Neutrophils # Man Lymphocytes # (Manual) Monocytes # (Manual) D-Dimer ABG pH 6.880 L* ABG pO2 489.9 H ABG HCO3 7.1 L ABG O2 Saturation 99.6 H ABG Base Excess -26.1 L ABG Hemoglobin 16.2 H VBG pH Oxyhemoglobin Sodium Potassium Chloride Carbon Dioxide BUN Creatinine Glucose POC Glucose 335 H Hemoglobin A1c 9.6 H Lactic Acid Calcium Phosphorus Magnesium Ferritin AST ALT Alkaline Phosphatase Lactate Dehydrogenase C-Reactive Protein Total Protein Albumin Triglycerides Cholesterol Urine Creatinine Urine Microalbumin Vancomycin Trough Salicylates Acetaminophen 06/03/19 06/03/19 06/03/19 18:14 18:24 19:00 WBC RBC Hgb Hct MCH RDW Plt Count Lymph % (Auto) Seg Neutrophils % Seg Neuts % (Manual) Lymphocytes % (Manual) Monocytes % (Manual) Seg Neutrophils # Seg Neutrophils # Man Lymphocytes # (Manual) Monocytes # (Manual) D-Dimer ABG pH 7.057 L* ABG pO2 97.2 H ABG HCO3 5.5 L ABG O2 Saturation ABG Base Excess -23.0 L ABG Hemoglobin 18.1 H VBG pH Oxyhemoglobin 94.4 L Sodium Potassium Chloride Carbon Dioxide BUN Creatinine Glucose POC Glucose 285 H Hemoglobin A1c Lactic Acid 3.40 H* Calcium Phosphorus Magnesium Ferritin AST ALT Alkaline Phosphatase Lactate Dehydrogenase C-Reactive Protein Total Protein Albumin Triglycerides Cholesterol Urine Creatinine Urine Microalbumin Vancomycin Trough Salicylates Acetaminophen 06/03/19 06/03/19 06/03/19 19:00 19:00 19:52 WBC RBC Hgb Hct MCH RDW Plt Count Lymph % (Auto) Seg Neutrophils % Seg Neuts % (Manual) Lymphocytes % (Manual) Monocytes % (Manual) Seg Neutrophils # Seg Neutrophils # Man Lymphocytes # (Manual) Monocytes # (Manual) D-Dimer ABG pH ABG pO2 ABG HCO3 ABG O2 Saturation ABG Base Excess ABG Hemoglobin VBG pH Oxyhemoglobin Sodium 151 H Potassium Chloride 120.8 H Carbon Dioxide 6 L* BUN 33 H Creatinine 1.4 H Glucose 339 H POC Glucose 316 H Hemoglobin A1c Lactic Acid Calcium Phosphorus Magnesium Ferritin AST 47 H ALT Alkaline Phosphatase 130 H Lactate Dehydrogenase C-Reactive Protein Total Protein Albumin 3.7 L Triglycerides 424 H Cholesterol 250 H Urine Creatinine Urine Microalbumin Vancomycin Trough Salicylates Acetaminophen 06/03/19 06/03/19 06/03/19 20:21 20:21 21:01 WBC RBC Hgb Hct MCH RDW Plt Count Lymph % (Auto) Seg Neutrophils % Seg Neuts % (Manual) Lymphocytes % (Manual) Monocytes % (Manual) Seg Neutrophils # Seg Neutrophils # Man Lymphocytes # (Manual) Monocytes # (Manual) D-Dimer ABG pH ABG pO2 ABG HCO3 ABG O2 Saturation ABG Base Excess ABG Hemoglobin VBG pH Oxyhemoglobin Sodium 153 H Potassium Chloride 121.8 H Carbon Dioxide 6 L* BUN 34 H Creatinine 1.3 H Glucose 324 H POC Glucose 245 H Hemoglobin A1c Lactic Acid 3.10 H* Calcium Phosphorus Magnesium Ferritin AST ALT Alkaline Phosphatase Lactate Dehydrogenase C-Reactive Protein Total Protein Albumin Triglycerides Cholesterol Urine Creatinine Urine Microalbumin Vancomycin Trough Salicylates Acetaminophen 06/03/19 06/03/19 06/03/19 21:25 21:32 22:42 WBC RBC Hgb Hct MCH RDW Plt Count Lymph % (Auto) Seg Neutrophils % Seg Neuts % (Manual) Lymphocytes % (Manual) Monocytes % (Manual) Seg Neutrophils # Seg Neutrophils # Man Lymphocytes # (Manual) Monocytes # (Manual) D-Dimer ABG pH 7.172 L* ABG pO2 107.2 H ABG HCO3 5.2 L ABG O2 Saturation ABG Base Excess -20.5 L ABG Hemoglobin 17.3 H VBG pH Oxyhemoglobin Sodium 155 H Potassium 2.6 L* D Chloride 130.1 H Carbon Dioxide 5 L* BUN 24 H Creatinine Glucose 212 H POC Glucose 225 H Hemoglobin A1c Lactic Acid Calcium 5.8 L* D Phosphorus Magnesium Ferritin AST ALT Alkaline Phosphatase Lactate Dehydrogenase C-Reactive Protein Total Protein Albumin Triglycerides Cholesterol Urine Creatinine Urine Microalbumin Vancomycin Trough Salicylates Acetaminophen 06/03/19 06/04/19 06/04/19 23:32 00:04 01:25 WBC RBC Hgb Hct MCH RDW Plt Count Lymph % (Auto) Seg Neutrophils % Seg Neuts % (Manual) Lymphocytes % (Manual) Monocytes % (Manual) Seg Neutrophils # Seg Neutrophils # Man Lymphocytes # (Manual) Monocytes # (Manual) D-Dimer ABG pH ABG pO2 ABG HCO3 ABG O2 Saturation ABG Base Excess ABG Hemoglobin VBG pH Oxyhemoglobin Sodium 151 H 151 H Potassium 1.5 L* D Chloride 139.0 H 124.7 H Carbon Dioxide 3 L* 9 L* BUN 31 H Creatinine 0.2 L D Glucose 117 H 241 H POC Glucose 231 H Hemoglobin A1c Lactic Acid Calcium 3.1 L* D Phosphorus Magnesium Ferritin AST ALT Alkaline Phosphatase Lactate Dehydrogenase C-Reactive Protein Total Protein Albumin Triglycerides Cholesterol Urine Creatinine Urine Microalbumin Vancomycin Trough Salicylates Acetaminophen 06/04/19 06/04/19 06/04/19 01:34 02:45 03:21 WBC RBC Hgb Hct MCH RDW Plt Count Lymph % (Auto) Seg Neutrophils % Seg Neuts % (Manual) Lymphocytes % (Manual) Monocytes % (Manual) Seg Neutrophils # Seg Neutrophils # Man Lymphocytes # (Manual) Monocytes # (Manual) D-Dimer ABG pH ABG pO2 ABG HCO3 ABG O2 Saturation ABG Base Excess ABG Hemoglobin VBG pH Oxyhemoglobin Sodium Potassium Chloride Carbon Dioxide BUN Creatinine Glucose POC Glucose 194 H 189 H 183 H Hemoglobin A1c Lactic Acid Calcium Phosphorus Magnesium Ferritin AST ALT Alkaline Phosphatase Lactate Dehydrogenase C-Reactive Protein Total Protein Albumin Triglycerides Cholesterol Urine Creatinine Urine Microalbumin Vancomycin Trough Salicylates Acetaminophen 06/04/19 06/04/19 06/04/19 04:50 05:07 06:27 WBC RBC Hgb Hct MCH RDW Plt Count Lymph % (Auto) Seg Neutrophils % Seg Neuts % (Manual) Lymphocytes % (Manual) Monocytes % (Manual) Seg Neutrophils # Seg Neutrophils # Man Lymphocytes # (Manual) Monocytes # (Manual) D-Dimer ABG pH ABG pO2 76.5 L ABG HCO3 12.9 L ABG O2 Saturation ABG Base Excess -9.0 L ABG Hemoglobin VBG pH Oxyhemoglobin Sodium Potassium Chloride Carbon Dioxide BUN Creatinine Glucose POC Glucose 200 H 164 H Hemoglobin A1c Lactic Acid Calcium Phosphorus Magnesium Ferritin AST ALT Alkaline Phosphatase Lactate Dehydrogenase C-Reactive Protein Total Protein Albumin Triglycerides Cholesterol Urine Creatinine Urine Microalbumin Vancomycin Trough Salicylates Acetaminophen 06/04/19 06/04/19 06/04/19 07:00 07:00 07:00 WBC 13.4 H RBC 5.54 H Hgb 15.3 H Hct 46.1 H D MCH RDW Plt Count Lymph % (Auto) Seg Neutrophils % Seg Neuts % (Manual) 72.0 H Lymphocytes % (Manual) 6.0 L Monocytes % (Manual) Seg Neutrophils # Seg Neutrophils # Man 9.6 H Lymphocytes # (Manual) 0.8 L Monocytes # (Manual) D-Dimer ABG pH ABG pO2 ABG HCO3 ABG O2 Saturation ABG Base Excess ABG Hemoglobin VBG pH Oxyhemoglobin Sodium 158 H 156 H Potassium 2.7 L* D 2.6 L* Chloride 124.3 H 123.5 H Carbon Dioxide 11 L 11 L BUN 25 H 26 H Creatinine Glucose 192 H 190 H POC Glucose Hemoglobin A1c Lactic Acid Calcium Phosphorus Magnesium Ferritin AST 43 H ALT Alkaline Phosphatase Lactate Dehydrogenase 590 H C-Reactive Protein 22.70 H Total Protein Albumin 2.9 L Triglycerides Cholesterol Urine Creatinine Urine Microalbumin Vancomycin Trough Salicylates Acetaminophen 06/04/19 06/04/19 06/04/19 07:00 07:00 07:14 WBC RBC Hgb Hct MCH RDW Plt Count Lymph % (Auto) Seg Neutrophils % Seg Neuts % (Manual) Lymphocytes % (Manual) Monocytes % (Manual) Seg Neutrophils # Seg Neutrophils # Man Lymphocytes # (Manual) Monocytes # (Manual) D-Dimer 2050.33 H ABG pH ABG pO2 ABG HCO3 ABG O2 Saturation ABG Base Excess ABG Hemoglobin VBG pH Oxyhemoglobin Sodium Potassium Chloride Carbon Dioxide BUN Creatinine Glucose POC Glucose 176 H Hemoglobin A1c Lactic Acid Calcium Phosphorus Magnesium Ferritin 941.3 H AST ALT Alkaline Phosphatase Lactate Dehydrogenase C-Reactive Protein Total Protein Albumin Triglycerides Cholesterol Urine Creatinine Urine Microalbumin Vancomycin Trough Salicylates Acetaminophen 06/04/19 06/04/19 06/04/19 09:55 11:38 12:19 WBC RBC Hgb Hct MCH RDW Plt Count Lymph % (Auto) Seg Neutrophils % Seg Neuts % (Manual) Lymphocytes % (Manual) Monocytes % (Manual) Seg Neutrophils # Seg Neutrophils # Man Lymphocytes # (Manual) Monocytes # (Manual) D-Dimer ABG pH ABG pO2 ABG HCO3 ABG O2 Saturation ABG Base Excess ABG Hemoglobin VBG pH Oxyhemoglobin Sodium Potassium Chloride Carbon Dioxide BUN Creatinine Glucose POC Glucose 184 H 145 H 144 H Hemoglobin A1c Lactic Acid Calcium Phosphorus Magnesium Ferritin AST ALT Alkaline Phosphatase Lactate Dehydrogenase C-Reactive Protein Total Protein Albumin Triglycerides Cholesterol Urine Creatinine Urine Microalbumin Vancomycin Trough Salicylates Acetaminophen 06/04/19 06/04/19 06/04/19 13:35 14:29 15:06 WBC RBC Hgb Hct MCH RDW Plt Count Lymph % (Auto) Seg Neutrophils % Seg Neuts % (Manual) Lymphocytes % (Manual) Monocytes % (Manual) Seg Neutrophils # Seg Neutrophils # Man Lymphocytes # (Manual) Monocytes # (Manual) D-Dimer ABG pH ABG pO2 ABG HCO3 ABG O2 Saturation ABG Base Excess ABG Hemoglobin VBG pH Oxyhemoglobin Sodium 157 H Potassium 2.4 L* Chloride 121.4 H Carbon Dioxide 20 L D BUN 21 H Creatinine Glucose 176 H POC Glucose 151 H 142 H Hemoglobin A1c Lactic Acid Calcium Phosphorus Magnesium Ferritin AST ALT Alkaline Phosphatase Lactate Dehydrogenase C-Reactive Protein Total Protein Albumin Triglycerides Cholesterol Urine Creatinine Urine Microalbumin Vancomycin Trough Salicylates Acetaminophen 06/04/19 06/04/19 06/04/19 17:14 17:51 21:45 WBC RBC Hgb Hct MCH RDW Plt Count Lymph % (Auto) Seg Neutrophils % Seg Neuts % (Manual) Lymphocytes % (Manual) Monocytes % (Manual) Seg Neutrophils # Seg Neutrophils # Man Lymphocytes # (Manual) Monocytes # (Manual) D-Dimer ABG pH ABG pO2 ABG HCO3 ABG O2 Saturation ABG Base Excess ABG Hemoglobin VBG pH Oxyhemoglobin Sodium Potassium Chloride Carbon Dioxide BUN Creatinine Glucose POC Glucose 200 H 159 H 143 H Hemoglobin A1c Lactic Acid Calcium Phosphorus Magnesium Ferritin AST ALT Alkaline Phosphatase Lactate Dehydrogenase C-Reactive Protein Total Protein Albumin Triglycerides Cholesterol Urine Creatinine Urine Microalbumin Vancomycin Trough Salicylates Acetaminophen 06/04/19 06/04/19 06/04/19 22:20 22:21 23:27 WBC RBC Hgb Hct MCH RDW Plt Count Lymph % (Auto) Seg Neutrophils % Seg Neuts % (Manual) Lymphocytes % (Manual) Monocytes % (Manual) Seg Neutrophils # Seg Neutrophils # Man Lymphocytes # (Manual) Monocytes # (Manual) D-Dimer ABG pH 7.572 H ABG pO2 58.5 L ABG HCO3 ABG O2 Saturation ABG Base Excess 3.5 H ABG Hemoglobin 20.0 H VBG pH Oxyhemoglobin 94.6 L Sodium Potassium Chloride Carbon Dioxide BUN Creatinine Glucose POC Glucose 154 H 147 H Hemoglobin A1c Lactic Acid Calcium Phosphorus Magnesium Ferritin AST ALT Alkaline Phosphatase Lactate Dehydrogenase C-Reactive Protein Total Protein Albumin Triglycerides Cholesterol Urine Creatinine Urine Microalbumin Vancomycin Trough Salicylates Acetaminophen 06/05/19 06/05/19 06/05/19 00:27 01:16 02:20 WBC RBC Hgb Hct MCH RDW Plt Count Lymph % (Auto) Seg Neutrophils % Seg Neuts % (Manual) Lymphocytes % (Manual) Monocytes % (Manual) Seg Neutrophils # Seg Neutrophils # Man Lymphocytes # (Manual) Monocytes # (Manual) D-Dimer ABG pH ABG pO2 ABG HCO3 ABG O2 Saturation ABG Base Excess ABG Hemoglobin VBG pH Oxyhemoglobin Sodium Potassium Chloride Carbon Dioxide BUN Creatinine Glucose POC Glucose 124 H 126 H 156 H Hemoglobin A1c Lactic Acid Calcium Phosphorus Magnesium Ferritin AST ALT Alkaline Phosphatase Lactate Dehydrogenase C-Reactive Protein Total Protein Albumin Triglycerides Cholesterol Urine Creatinine Urine Microalbumin Vancomycin Trough Salicylates Acetaminophen 06/05/19 06/05/19 06/05/19 03:44 03:59 04:52 WBC RBC Hgb Hct MCH RDW Plt Count Lymph % (Auto) Seg Neutrophils % Seg Neuts % (Manual) Lymphocytes % (Manual) Monocytes % (Manual) Seg Neutrophils # Seg Neutrophils # Man Lymphocytes # (Manual) Monocytes # (Manual) D-Dimer ABG pH ABG pO2 ABG HCO3 ABG O2 Saturation ABG Base Excess ABG Hemoglobin VBG pH Oxyhemoglobin Sodium 155 H Potassium 3.0 L D Chloride 114.7 H Carbon Dioxide BUN Creatinine 0.6 L Glucose 136 H POC Glucose 143 H 141 H Hemoglobin A1c Lactic Acid Calcium Phosphorus Magnesium Ferritin AST ALT Alkaline Phosphatase Lactate Dehydrogenase C-Reactive Protein Total Protein Albumin Triglycerides Cholesterol Urine Creatinine Urine Microalbumin Vancomycin Trough Salicylates Acetaminophen 06/05/19 06/05/19 06/05/19 05:00 05:54 07:01 WBC RBC Hgb Hct MCH RDW Plt Count Lymph % (Auto) Seg Neutrophils % Seg Neuts % (Manual) Lymphocytes % (Manual) Monocytes % (Manual) Seg Neutrophils # Seg Neutrophils # Man Lymphocytes # (Manual) Monocytes # (Manual) D-Dimer ABG pH 7.621 H* ABG pO2 54.3 L ABG HCO3 29.8 H ABG O2 Saturation ABG Base Excess 8.8 H ABG Hemoglobin VBG pH Oxyhemoglobin Sodium Potassium Chloride Carbon Dioxide BUN Creatinine Glucose POC Glucose 155 H 145 H Hemoglobin A1c Lactic Acid Calcium Phosphorus Magnesium Ferritin AST ALT Alkaline Phosphatase Lactate Dehydrogenase C-Reactive Protein Total Protein Albumin Triglycerides Cholesterol Urine Creatinine Urine Microalbumin Vancomycin Trough Salicylates Acetaminophen 06/05/19 06/05/19 06/05/19 12:13 18:23 21:00 WBC RBC Hgb Hct MCH RDW Plt Count Lymph % (Auto) Seg Neutrophils % Seg Neuts % (Manual) Lymphocytes % (Manual) Monocytes % (Manual) Seg Neutrophils # Seg Neutrophils # Man Lymphocytes # (Manual) Monocytes # (Manual) D-Dimer ABG pH ABG pO2 ABG HCO3 ABG O2 Saturation ABG Base Excess ABG Hemoglobin VBG pH Oxyhemoglobin Sodium Potassium Chloride Carbon Dioxide BUN Creatinine Glucose POC Glucose 202 H 257 H Hemoglobin A1c Lactic Acid Calcium Phosphorus Magnesium Ferritin AST ALT Alkaline Phosphatase Lactate Dehydrogenase C-Reactive Protein Total Protein Albumin Triglycerides Cholesterol Urine Creatinine Urine Microalbumin Vancomycin Trough 4.2 L Salicylates Acetaminophen 06/05/19 06/06/19 06/06/19 23:55 04:16 04:37 WBC RBC Hgb Hct MCH RDW Plt Count Lymph % (Auto) Seg Neutrophils % Seg Neuts % (Manual) Lymphocytes % (Manual) Monocytes % (Manual) Seg Neutrophils # Seg Neutrophils # Man Lymphocytes # (Manual) Monocytes # (Manual) D-Dimer 1279.22 H ABG pH 7.600 H ABG pO2 62.4 L ABG HCO3 28.0 H ABG O2 Saturation ABG Base Excess 6.6 H ABG Hemoglobin 10.4 L VBG pH Oxyhemoglobin Sodium Potassium Chloride Carbon Dioxide BUN Creatinine Glucose POC Glucose 267 H Hemoglobin A1c Lactic Acid Calcium Phosphorus Magnesium Ferritin AST ALT Alkaline Phosphatase Lactate Dehydrogenase C-Reactive Protein Total Protein Albumin Triglycerides Cholesterol Urine Creatinine Urine Microalbumin Vancomycin Trough Salicylates Acetaminophen 06/06/19 06/06/19 06/06/19 04:37 04:37 04:37 WBC 12.2 H RBC 5.10 H Hgb Hct MCH 27 L RDW Plt Count Lymph % (Auto) Seg Neutrophils % Seg Neuts % (Manual) Lymphocytes % (Manual) Monocytes % (Manual) Seg Neutrophils # Seg Neutrophils # Man Lymphocytes # (Manual) Monocytes # (Manual) D-Dimer ABG pH ABG pO2 ABG HCO3 ABG O2 Saturation ABG Base Excess ABG Hemoglobin VBG pH Oxyhemoglobin Sodium 156 H Potassium 3.4 L Chloride 112.9 H Carbon Dioxide BUN 21 H Creatinine 0.6 L Glucose 332 H POC Glucose Hemoglobin A1c Lactic Acid Calcium Phosphorus Magnesium Ferritin 1649.0 H AST ALT Alkaline Phosphatase Lactate Dehydrogenase 578 H C-Reactive Protein 22.10 H Total Protein Albumin Triglycerides Cholesterol Urine Creatinine Urine Microalbumin Vancomycin Trough Salicylates Acetaminophen 06/06/19 06/06/19 06/06/19 05:45 11:55 12:21 WBC RBC Hgb Hct MCH RDW Plt Count Lymph % (Auto) Seg Neutrophils % Seg Neuts % (Manual) Lymphocytes % (Manual) Monocytes % (Manual) Seg Neutrophils # Seg Neutrophils # Man Lymphocytes # (Manual) Monocytes # (Manual) D-Dimer ABG pH 7.511 H ABG pO2 123.0 H ABG HCO3 29.7 H ABG O2 Saturation ABG Base Excess 6.4 H ABG Hemoglobin VBG pH Oxyhemoglobin Sodium Potassium Chloride Carbon Dioxide BUN Creatinine Glucose POC Glucose 303 H 281 H Hemoglobin A1c Lactic Acid Calcium Phosphorus Magnesium Ferritin AST ALT Alkaline Phosphatase Lactate Dehydrogenase C-Reactive Protein Total Protein Albumin Triglycerides Cholesterol Urine Creatinine Urine Microalbumin Vancomycin Trough Salicylates Acetaminophen 06/06/19 06/07/19 06/07/19 17:06 00:25 04:39 WBC RBC Hgb Hct MCH RDW Plt Count Lymph % (Auto) Seg Neutrophils % Seg Neuts % (Manual) Lymphocytes % (Manual) Monocytes % (Manual) Seg Neutrophils # Seg Neutrophils # Man Lymphocytes # (Manual) Monocytes # (Manual) D-Dimer ABG pH 7.507 H ABG pO2 46.4 L ABG HCO3 32.6 H ABG O2 Saturation 90.6 L ABG Base Excess 8.6 H ABG Hemoglobin VBG pH Oxyhemoglobin 89.2 L Sodium Potassium Chloride Carbon Dioxide BUN Creatinine Glucose POC Glucose 251 H 225 H Hemoglobin A1c Lactic Acid Calcium Phosphorus Magnesium Ferritin AST ALT Alkaline Phosphatase Lactate Dehydrogenase C-Reactive Protein Total Protein Albumin Triglycerides Cholesterol Urine Creatinine Urine Microalbumin Vancomycin Trough Salicylates Acetaminophen 06/07/19 06/07/19 06/07/19 04:43 04:43 04:43 WBC 13.6 H RBC 5.14 H Hgb Hct 43.4 H MCH 27 L RDW Plt Count Lymph % (Auto) Seg Neutrophils % Seg Neuts % (Manual) Lymphocytes % (Manual) Monocytes % (Manual) Seg Neutrophils # Seg Neutrophils # Man Lymphocytes # (Manual) Monocytes # (Manual) D-Dimer ABG pH ABG pO2 ABG HCO3 ABG O2 Saturation ABG Base Excess ABG Hemoglobin VBG pH Oxyhemoglobin Sodium 166 H* D Potassium 3.0 L Chloride 122.9 H Carbon Dioxide BUN 27 H Creatinine 0.5 L Glucose 265 H POC Glucose Hemoglobin A1c Lactic Acid Calcium Phosphorus Magnesium Ferritin AST ALT Alkaline Phosphatase Lactate Dehydrogenase C-Reactive Protein Total Protein Albumin Triglycerides 373 H Cholesterol Urine Creatinine Urine Microalbumin Vancomycin Trough Salicylates Acetaminophen 06/07/19 06/07/19 06/07/19 10:12 11:39 15:31 WBC RBC Hgb Hct MCH RDW Plt Count Lymph % (Auto) Seg Neutrophils % Seg Neuts % (Manual) Lymphocytes % (Manual) Monocytes % (Manual) Seg Neutrophils # Seg Neutrophils # Man Lymphocytes # (Manual) Monocytes # (Manual) D-Dimer ABG pH ABG pO2 ABG HCO3 ABG O2 Saturation ABG Base Excess ABG Hemoglobin VBG pH Oxyhemoglobin Sodium 163 H* 161 H* Potassium 3.1 L Chloride 117.7 H Carbon Dioxide BUN 22 H Creatinine 0.5 L Glucose 274 H POC Glucose 218 H Hemoglobin A1c Lactic Acid Calcium Phosphorus Magnesium Ferritin AST ALT Alkaline Phosphatase Lactate Dehydrogenase C-Reactive Protein Total Protein Albumin Triglycerides Cholesterol Urine Creatinine Urine Microalbumin Vancomycin Trough Salicylates Acetaminophen 06/07/19 06/08/19 06/08/19 17:16 00:04 03:45 WBC RBC Hgb Hct MCH RDW Plt Count Lymph % (Auto) Seg Neutrophils % Seg Neuts % (Manual) Lymphocytes % (Manual) Monocytes % (Manual) Seg Neutrophils # Seg Neutrophils # Man Lymphocytes # (Manual) Monocytes # (Manual) D-Dimer ABG pH 7.504 H ABG pO2 54.2 L ABG HCO3 32.3 H ABG O2 Saturation 93.7 L ABG Base Excess 8.4 H ABG Hemoglobin VBG pH Oxyhemoglobin 92.2 L Sodium Potassium Chloride Carbon Dioxide BUN Creatinine Glucose POC Glucose 284 H 283 H Hemoglobin A1c Lactic Acid Calcium Phosphorus Magnesium Ferritin AST ALT Alkaline Phosphatase Lactate Dehydrogenase C-Reactive Protein Total Protein Albumin Triglycerides Cholesterol Urine Creatinine Urine Microalbumin Vancomycin Trough Salicylates Acetaminophen 06/08/19 06/08/1906/07/20 05:02 09:33 09:33 WBC RBC Hgb Hct MCH RDW Plt Count Lymph % (Auto) Seg Neutrophils % Seg Neuts % (Manual) Lymphocytes % (Manual) Monocytes % (Manual) Seg Neutrophils # Seg Neutrophils # Man Lymphocytes # (Manual) Monocytes # (Manual) D-Dimer 1319.18 H ABG pH ABG pO2 ABG HCO3 ABG O2 Saturation ABG Base Excess ABG Hemoglobin VBG pH Oxyhemoglobin Sodium Potassium Chloride Carbon Dioxide BUN Creatinine Glucose POC Glucose 291 H Hemoglobin A1c Lactic Acid Calcium Phosphorus Magnesium Ferritin 1274.0 H AST ALT Alkaline Phosphatase Lactate Dehydrogenase C-Reactive Protein Total Protein Albumin Triglycerides Cholesterol Urine Creatinine Urine Microalbumin Vancomycin Trough Salicylates Acetaminophen 06/08/19 06/08/19 06/08/19 09:33 09:33 17:46 WBC 16.0 H RBC Hgb Hct MCH 27 L RDW Plt Count Lymph % (Auto) Seg Neutrophils % Seg Neuts % (Manual) Lymphocytes % (Manual) Monocytes % (Manual) Seg Neutrophils # Seg Neutrophils # Man Lymphocytes # (Manual) Monocytes # (Manual) D-Dimer ABG pH ABG pO2 ABG HCO3 ABG O2 Saturation ABG Base Excess ABG Hemoglobin VBG pH Oxyhemoglobin Sodium 157 H Potassium 3.1 L Chloride 116.7 H Carbon Dioxide BUN 24 H Creatinine 0.5 L Glucose 351 H POC Glucose 309 H Hemoglobin A1c Lactic Acid Calcium Phosphorus 2.20 L Magnesium 2.60 H Ferritin AST ALT Alkaline Phosphatase 131 H Lactate Dehydrogenase 449 H C-Reactive Protein 9.70 H Total Protein 6.1 L Albumin 2.1 L Triglycerides Cholesterol Urine Creatinine Urine Microalbumin Vancomycin Trough Salicylates Acetaminophen 06/08/19 06/08/19 06/09/19 21:55 23:46 04:18 WBC RBC Hgb Hct MCH RDW Plt Count Lymph % (Auto) Seg Neutrophils % Seg Neuts % (Manual) Lymphocytes % (Manual) Monocytes % (Manual) Seg Neutrophils # Seg Neutrophils # Man Lymphocytes # (Manual) Monocytes # (Manual) D-Dimer ABG pH 7.480 H ABG pO2 70.9 L ABG HCO3 32.9 H ABG O2 Saturation ABG Base Excess 8.4 H ABG Hemoglobin 10.3 L VBG pH Oxyhemoglobin 94.8 L Sodium 151 H Potassium 3.3 L Chloride 112.7 H Carbon Dioxide 31 H BUN 24 H Creatinine 0.5 L Glucose 321 H POC Glucose 331 H Hemoglobin A1c Lactic Acid Calcium Phosphorus Magnesium Ferritin AST ALT Alkaline Phosphatase Lactate Dehydrogenase C-Reactive Protein Total Protein Albumin Triglycerides Cholesterol Urine Creatinine Urine Microalbumin Vancomycin Trough Salicylates Acetaminophen 06/09/19 06/09/19 06/09/19 05:35 07:34 07:34 WBC 14.2 H RBC Hgb Hct MCH 27 L RDW Plt Count Lymph % (Auto) Seg Neutrophils % Seg Neuts % (Manual) Lymphocytes % (Manual) Monocytes % (Manual) Seg Neutrophils # Seg Neutrophils # Man Lymphocytes # (Manual) Monocytes # (Manual) D-Dimer ABG pH ABG pO2 ABG HCO3 ABG O2 Saturation ABG Base Excess ABG Hemoglobin VBG pH Oxyhemoglobin Sodium 153 H Potassium 3.0 L Chloride 113.6 H Carbon Dioxide BUN 26 H Creatinine 0.5 L Glucose 306 H POC Glucose 264 H Hemoglobin A1c Lactic Acid Calcium Phosphorus Magnesium Ferritin AST ALT Alkaline Phosphatase Lactate Dehydrogenase 411 H C-Reactive Protein 6.00 H Total Protein Albumin Triglycerides 304 H Cholesterol Urine Creatinine Urine Microalbumin Vancomycin Trough Salicylates Acetaminophen 06/09/19 06/09/19 06/09/19 07:34 07:34 18:29 WBC RBC Hgb Hct MCH RDW Plt Count Lymph % (Auto) Seg Neutrophils % Seg Neuts % (Manual) Lymphocytes % (Manual) Monocytes % (Manual) Seg Neutrophils # Seg Neutrophils # Man Lymphocytes # (Manual) Monocytes # (Manual) D-Dimer 991.99 H ABG pH ABG pO2 ABG HCO3 ABG O2 Saturation ABG Base Excess ABG Hemoglobin VBG pH Oxyhemoglobin Sodium Potassium Chloride Carbon Dioxide BUN Creatinine Glucose POC Glucose 226 H Hemoglobin A1c Lactic Acid Calcium Phosphorus Magnesium Ferritin 1078.0 H AST ALT Alkaline Phosphatase Lactate Dehydrogenase C-Reactive Protein Total Protein Albumin Triglycerides Cholesterol Urine Creatinine Urine Microalbumin Vancomycin Trough Salicylates Acetaminophen 06/09/19 06/09/19 06/10/19 19:22 23:43 04:05 WBC RBC Hgb Hct MCH RDW Plt Count Lymph % (Auto) Seg Neutrophils % Seg Neuts % (Manual) Lymphocytes % (Manual) Monocytes % (Manual) Seg Neutrophils # Seg Neutrophils # Man Lymphocytes # (Manual) Monocytes # (Manual) D-Dimer ABG pH 7.472 H ABG pO2 63.0 L ABG HCO3 31.3 H ABG O2 Saturation 94.5 L ABG Base Excess 6.9 H ABG Hemoglobin VBG pH Oxyhemoglobin 93.0 L Sodium Potassium Chloride 110.1 H Carbon Dioxide BUN 20 H Creatinine 0.4 L Glucose 237 H POC Glucose 177 H Hemoglobin A1c Lactic Acid Calcium Phosphorus Magnesium Ferritin AST ALT Alkaline Phosphatase Lactate Dehydrogenase C-Reactive Protein Total Protein Albumin Triglycerides Cholesterol Urine Creatinine Urine Microalbumin Vancomycin Trough Salicylates Acetaminophen 06/10/19 06/10/19 06/10/19 06:28 12:30 18:08 WBC RBC Hgb Hct MCH RDW Plt Count Lymph % (Auto) Seg Neutrophils % Seg Neuts % (Manual) Lymphocytes % (Manual) Monocytes % (Manual) Seg Neutrophils # Seg Neutrophils # Man Lymphocytes # (Manual) Monocytes # (Manual) D-Dimer ABG pH ABG pO2 ABG HCO3 ABG O2 Saturation ABG Base Excess ABG Hemoglobin VBG pH Oxyhemoglobin Sodium Potassium Chloride Carbon Dioxide BUN Creatinine Glucose POC Glucose 172 H 166 H 172 H Hemoglobin A1c Lactic Acid Calcium Phosphorus Magnesium Ferritin AST ALT Alkaline Phosphatase Lactate Dehydrogenase C-Reactive Protein Total Protein Albumin Triglycerides Cholesterol Urine Creatinine Urine Microalbumin Vancomycin Trough Salicylates Acetaminophen 06/10/19 06/10/19 06/10/19 23:53 Unknown Unknown WBC 13.7 H RBC Hgb Hct MCH RDW Plt Count 84 L Lymph % (Auto) Seg Neutrophils % Seg Neuts % (Manual) Lymphocytes % (Manual) Monocytes % (Manual) Seg Neutrophils # Seg Neutrophils # Man Lymphocytes # (Manual) Monocytes # (Manual) D-Dimer ABG pH ABG pO2 ABG HCO3 ABG O2 Saturation ABG Base Excess ABG Hemoglobin VBG pH Oxyhemoglobin Sodium 148 H Potassium 3.3 L Chloride 111.5 H Carbon Dioxide BUN 20 H Creatinine 0.4 L Glucose 185 H POC Glucose 186 H Hemoglobin A1c Lactic Acid Calcium Phosphorus Magnesium Ferritin AST ALT Alkaline Phosphatase Lactate Dehydrogenase C-Reactive Protein Total Protein Albumin Triglycerides Cholesterol Urine Creatinine Urine Microalbumin Vancomycin Trough Salicylates Acetaminophen 06/11/19 06/11/19 06/11/19 04:31 04:31 04:31 WBC RBC Hgb Hct MCH RDW Plt Count Lymph % (Auto) Seg Neutrophils % Seg Neuts % (Manual) Lymphocytes % (Manual) Monocytes % (Manual) Seg Neutrophils # Seg Neutrophils # Man Lymphocytes # (Manual) Monocytes # (Manual) D-Dimer 1206.09 H ABG pH ABG pO2 ABG HCO3 ABG O2 Saturation ABG Base Excess ABG Hemoglobin VBG pH Oxyhemoglobin Sodium 146 H Potassium 3.3 L Chloride 109.4 H Carbon Dioxide BUN Creatinine 0.5 L Glucose 186 H POC Glucose Hemoglobin A1c Lactic Acid Calcium Phosphorus Magnesium Ferritin 905.9 H AST ALT Alkaline Phosphatase Lactate Dehydrogenase 417 H C-Reactive Protein 3.30 H Total Protein Albumin Triglycerides Cholesterol Urine Creatinine Urine Microalbumin Vancomycin Trough Salicylates Acetaminophen 06/11/19 06/11/19 06/11/19 04:31 05:35 11:41 WBC 17.0 H RBC Hgb Hct MCH 27 L RDW Plt Count Lymph % (Auto) Seg Neutrophils % Seg Neuts % (Manual) Lymphocytes % (Manual) Monocytes % (Manual) Seg Neutrophils # Seg Neutrophils # Man Lymphocytes # (Manual) Monocytes # (Manual) D-Dimer ABG pH ABG pO2 ABG HCO3 ABG O2 Saturation ABG Base Excess ABG Hemoglobin VBG pH Oxyhemoglobin Sodium Potassium Chloride Carbon Dioxide BUN Creatinine Glucose POC Glucose 151 H 209 H Hemoglobin A1c Lactic Acid Calcium Phosphorus Magnesium Ferritin AST ALT Alkaline Phosphatase Lactate Dehydrogenase C-Reactive Protein Total Protein Albumin Triglycerides Cholesterol Urine Creatinine Urine Microalbumin Vancomycin Trough Salicylates Acetaminophen 06/11/19 06/11/19 06/12/19 17:27 23:52 03:58 WBC 14.9 H RBC Hgb Hct MCH RDW Plt Count Lymph % (Auto) Seg Neutrophils % Seg Neuts % (Manual) 72.0 H Lymphocytes % (Manual) 13.0 L Monocytes % (Manual) 13.0 H Seg Neutrophils # Seg Neutrophils # Man 10.7 H Lymphocytes # (Manual) Monocytes # (Manual) 1.9 H D-Dimer ABG pH ABG pO2 ABG HCO3 ABG O2 Saturation ABG Base Excess ABG Hemoglobin VBG pH Oxyhemoglobin Sodium Potassium Chloride Carbon Dioxide BUN Creatinine Glucose POC Glucose 181 H 223 H Hemoglobin A1c Lactic Acid Calcium Phosphorus Magnesium Ferritin AST ALT Alkaline Phosphatase Lactate Dehydrogenase C-Reactive Protein Total Protein Albumin Triglycerides Cholesterol Urine Creatinine Urine Microalbumin Vancomycin Trough Salicylates Acetaminophen 06/12/19 06/12/19 06/12/19 03:58 04:44 10:30 WBC RBC Hgb Hct MCH RDW Plt Count Lymph % (Auto) Seg Neutrophils % Seg Neuts % (Manual) Lymphocytes % (Manual) Monocytes % (Manual) Seg Neutrophils # Seg Neutrophils # Man Lymphocytes # (Manual) Monocytes # (Manual) D-Dimer ABG pH 7.456 H ABG pO2 ABG HCO3 32.7 H ABG O2 Saturation ABG Base Excess 7.7 H ABG Hemoglobin VBG pH Oxyhemoglobin Sodium Potassium 3.4 L Chloride Carbon Dioxide BUN Creatinine 0.4 L Glucose 242 H POC Glucose 203 H Hemoglobin A1c Lactic Acid Calcium Phosphorus Magnesium Ferritin AST 103 H ALT 101 H Alkaline Phosphatase Lactate Dehydrogenase C-Reactive Protein Total Protein 5.9 L Albumin 2.3 L Triglycerides Cholesterol Urine Creatinine Urine Microalbumin Vancomycin Trough Salicylates Acetaminophen 06/12/19 06/13/19 06/13/19 12:01 00:03 02:51 WBC RBC Hgb Hct MCH RDW Plt Count Lymph % (Auto) Seg Neutrophils % Seg Neuts % (Manual) Lymphocytes % (Manual) Monocytes % (Manual) Seg Neutrophils # Seg Neutrophils # Man Lymphocytes # (Manual) Monocytes # (Manual) D-Dimer ABG pH ABG pO2 ABG HCO3 ABG O2 Saturation ABG Base Excess ABG Hemoglobin VBG pH Oxyhemoglobin Sodium Potassium Chloride Carbon Dioxide BUN Creatinine Glucose POC Glucose 178 H 127 H Hemoglobin A1c Lactic Acid Calcium Phosphorus Magnesium Ferritin AST ALT Alkaline Phosphatase Lactate Dehydrogenase 807 H C-Reactive Protein 3.40 H Total Protein Albumin Triglycerides Cholesterol Urine Creatinine Urine Microalbumin Vancomycin Trough Salicylates Acetaminophen 06/13/19 06/13/19 06/13/19 05:17 09:23 09:23 WBC RBC Hgb Hct MCH RDW Plt Count Lymph % (Auto) Seg Neutrophils % Seg Neuts % (Manual) Lymphocytes % (Manual) Monocytes % (Manual) Seg Neutrophils # Seg Neutrophils # Man Lymphocytes # (Manual) Monocytes # (Manual) D-Dimer 1401.68 H ABG pH ABG pO2 ABG HCO3 ABG O2 Saturation ABG Base Excess ABG Hemoglobin VBG pH Oxyhemoglobin Sodium Potassium Chloride Carbon Dioxide BUN Creatinine Glucose POC Glucose 161 H Hemoglobin A1c Lactic Acid Calcium Phosphorus Magnesium Ferritin 1942.0 H AST ALT Alkaline Phosphatase Lactate Dehydrogenase C-Reactive Protein Total Protein Albumin Triglycerides Cholesterol Urine Creatinine Urine Microalbumin Vancomycin Trough Salicylates Acetaminophen 06/13/19 06/13/19 06/14/19 12:03 18:17 00:03 WBC RBC Hgb Hct MCH RDW Plt Count Lymph % (Auto) Seg Neutrophils % Seg Neuts % (Manual) Lymphocytes % (Manual) Monocytes % (Manual) Seg Neutrophils # Seg Neutrophils # Man Lymphocytes # (Manual) Monocytes # (Manual) D-Dimer ABG pH ABG pO2 ABG HCO3 ABG O2 Saturation ABG Base Excess ABG Hemoglobin VBG pH Oxyhemoglobin Sodium Potassium Chloride Carbon Dioxide BUN Creatinine Glucose POC Glucose 147 H 172 H 168 H Hemoglobin A1c Lactic Acid Calcium Phosphorus Magnesium Ferritin AST ALT Alkaline Phosphatase Lactate Dehydrogenase C-Reactive Protein Total Protein Albumin Triglycerides Cholesterol Urine Creatinine Urine Microalbumin Vancomycin Trough Salicylates Acetaminophen 06/14/19 06/14/19 06/14/19 05:43 12:22 14:44 WBC 14.0 H RBC 5.86 H Hgb 16.2 H D Hct 49.3 H D MCH RDW Plt Count Lymph % (Auto) Seg Neutrophils % Seg Neuts % (Manual) 81.0 H Lymphocytes % (Manual) 10.0 L Monocytes % (Manual) Seg Neutrophils # Seg Neutrophils # Man 11.3 H Lymphocytes # (Manual) Monocytes # (Manual) 1.0 H D-Dimer ABG pH ABG pO2 ABG HCO3 ABG O2 Saturation ABG Base Excess ABG Hemoglobin VBG pH Oxyhemoglobin Sodium Potassium Chloride Carbon Dioxide BUN Creatinine Glucose POC Glucose 178 H 218 H Hemoglobin A1c Lactic Acid Calcium Phosphorus Magnesium Ferritin AST ALT Alkaline Phosphatase Lactate Dehydrogenase C-Reactive Protein Total Protein Albumin Triglycerides Cholesterol Urine Creatinine Urine Microalbumin Vancomycin Trough Salicylates Acetaminophen 06/14/19 06/14/19 06/14/19 14:44 16:35 18:01 WBC RBC Hgb Hct MCH RDW Plt Count Lymph % (Auto) Seg Neutrophils % Seg Neuts % (Manual) Lymphocytes % (Manual) Monocytes % (Manual) Seg Neutrophils # Seg Neutrophils # Man Lymphocytes # (Manual) Monocytes # (Manual) D-Dimer ABG pH 7.488 H ABG pO2 66.1 L ABG HCO3 30.2 H ABG O2 Saturation 94.7 L ABG Base Excess 6.3 H ABG Hemoglobin VBG pH Oxyhemoglobin 93.3 L Sodium Potassium 3.4 L Chloride Carbon Dioxide BUN Creatinine 0.3 L Glucose 296 H POC Glucose 215 H Hemoglobin A1c Lactic Acid Calcium Phosphorus Magnesium Ferritin AST ALT Alkaline Phosphatase Lactate Dehydrogenase C-Reactive Protein Total Protein Albumin Triglycerides Cholesterol Urine Creatinine Urine Microalbumin Vancomycin Trough Salicylates Acetaminophen 06/15/19 06/15/19 06/15/19 00:34 04:00 04:00 WBC RBC Hgb Hct MCH RDW Plt Count Lymph % (Auto) Seg Neutrophils % Seg Neuts % (Manual) Lymphocytes % (Manual) Monocytes % (Manual) Seg Neutrophils # Seg Neutrophils # Man Lymphocytes # (Manual) Monocytes # (Manual) D-Dimer 836.6 H ABG pH ABG pO2 ABG HCO3 ABG O2 Saturation ABG Base Excess ABG Hemoglobin VBG pH Oxyhemoglobin Sodium Potassium Chloride Carbon Dioxide BUN Creatinine Glucose POC Glucose 229 H Hemoglobin A1c Lactic Acid Calcium Phosphorus Magnesium Ferritin 908.8 H AST ALT Alkaline Phosphatase Lactate Dehydrogenase C-Reactive Protein Total Protein Albumin Triglycerides Cholesterol Urine Creatinine Urine Microalbumin Vancomycin Trough Salicylates Acetaminophen 06/15/19 06/15/19 06/15/19 04:00 04:00 06:24 WBC 15.6 H RBC Hgb Hct MCH 27 L RDW Plt Count Lymph % (Auto) 10.9 L Seg Neutrophils % 84.1 H Seg Neuts % (Manual) Lymphocytes % (Manual) Monocytes % (Manual) Seg Neutrophils # 13.1 H Seg Neutrophils # Man Lymphocytes # (Manual) Monocytes # (Manual) D-Dimer ABG pH ABG pO2 ABG HCO3 ABG O2 Saturation ABG Base Excess ABG Hemoglobin VBG pH Oxyhemoglobin Sodium Potassium 3.3 L Chloride Carbon Dioxide 31 H D BUN Creatinine 0.4 L Glucose 199 H POC Glucose 192 H Hemoglobin A1c Lactic Acid Calcium Phosphorus Magnesium Ferritin AST ALT Alkaline Phosphatase Lactate Dehydrogenase 386 H C-Reactive Protein 17.00 H Total Protein Albumin Triglycerides Cholesterol Urine Creatinine Urine Microalbumin Vancomycin Trough Salicylates Acetaminophen 06/15/19 06/15/19 06/15/19 12:05 17:02 21:00 WBC RBC Hgb Hct MCH RDW Plt Count Lymph % (Auto) Seg Neutrophils % Seg Neuts % (Manual) Lymphocytes % (Manual) Monocytes % (Manual) Seg Neutrophils # Seg Neutrophils # Man Lymphocytes # (Manual) Monocytes # (Manual) D-Dimer ABG pH ABG pO2 ABG HCO3 ABG O2 Saturation ABG Base Excess ABG Hemoglobin VBG pH Oxyhemoglobin Sodium Potassium Chloride Carbon Dioxide BUN Creatinine Glucose POC Glucose 271 H 239 H 211 H Hemoglobin A1c Lactic Acid Calcium Phosphorus Magnesium Ferritin AST ALT Alkaline Phosphatase Lactate Dehydrogenase C-Reactive Protein Total Protein Albumin Triglycerides Cholesterol Urine Creatinine Urine Microalbumin Vancomycin Trough Salicylates Acetaminophen 06/16/19 06/16/19 06/16/19 00:13 05:16 05:16 WBC 12.4 H RBC Hgb Hct MCH RDW Plt Count Lymph % (Auto) Seg Neutrophils % Seg Neuts % (Manual) Lymphocytes % (Manual) Monocytes % (Manual) Seg Neutrophils # Seg Neutrophils # Man Lymphocytes # (Manual) Monocytes # (Manual) D-Dimer ABG pH ABG pO2 ABG HCO3 ABG O2 Saturation ABG Base Excess ABG Hemoglobin VBG pH Oxyhemoglobin Sodium Potassium 3.4 L Chloride Carbon Dioxide BUN Creatinine 0.5 L Glucose 215 H POC Glucose 230 H Hemoglobin A1c Lactic Acid Calcium Phosphorus Magnesium Ferritin AST ALT Alkaline Phosphatase Lactate Dehydrogenase C-Reactive Protein Total Protein Albumin Triglycerides Cholesterol Urine Creatinine Urine Microalbumin Vancomycin Trough Salicylates Acetaminophen 06/16/19 06/16/19 06/16/19 08:05 12:17 16:44 WBC RBC Hgb Hct MCH RDW Plt Count Lymph % (Auto) Seg Neutrophils % Seg Neuts % (Manual) Lymphocytes % (Manual) Monocytes % (Manual) Seg Neutrophils # Seg Neutrophils # Man Lymphocytes # (Manual) Monocytes # (Manual) D-Dimer ABG pH ABG pO2 ABG HCO3 ABG O2 Saturation ABG Base Excess ABG Hemoglobin VBG pH Oxyhemoglobin Sodium Potassium Chloride Carbon Dioxide BUN Creatinine Glucose POC Glucose 220 H 195 H 223 H Hemoglobin A1c Lactic Acid Calcium Phosphorus Magnesium Ferritin AST ALT Alkaline Phosphatase Lactate Dehydrogenase C-Reactive Protein Total Protein Albumin Triglycerides Cholesterol Urine Creatinine Urine Microalbumin Vancomycin Trough Salicylates Acetaminophen 06/17/19 06/17/19 06/17/19 00:07 05:42 12:07 WBC RBC Hgb Hct MCH RDW Plt Count Lymph % (Auto) Seg Neutrophils % Seg Neuts % (Manual) Lymphocytes % (Manual) Monocytes % (Manual) Seg Neutrophils # Seg Neutrophils # Man Lymphocytes # (Manual) Monocytes # (Manual) D-Dimer ABG pH ABG pO2 ABG HCO3 ABG O2 Saturation ABG Base Excess ABG Hemoglobin VBG pH Oxyhemoglobin Sodium Potassium Chloride Carbon Dioxide BUN Creatinine Glucose POC Glucose 201 H 191 H 269 H Hemoglobin A1c Lactic Acid Calcium Phosphorus Magnesium Ferritin AST ALT Alkaline Phosphatase Lactate Dehydrogenase C-Reactive Protein Total Protein Albumin Triglycerides Cholesterol Urine Creatinine Urine Microalbumin Vancomycin Trough Salicylates Acetaminophen 06/17/19 06/18/19 06/18/19 17:40 00:05 05:32 WBC RBC Hgb Hct MCH RDW Plt Count Lymph % (Auto) Seg Neutrophils % Seg Neuts % (Manual) Lymphocytes % (Manual) Monocytes % (Manual) Seg Neutrophils # Seg Neutrophils # Man Lymphocytes # (Manual) Monocytes # (Manual) D-Dimer ABG pH ABG pO2 ABG HCO3 ABG O2 Saturation ABG Base Excess ABG Hemoglobin VBG pH Oxyhemoglobin Sodium Potassium Chloride Carbon Dioxide BUN Creatinine Glucose POC Glucose 266 H 222 H 273 H Hemoglobin A1c Lactic Acid Calcium Phosphorus Magnesium Ferritin AST ALT Alkaline Phosphatase Lactate Dehydrogenase C-Reactive Protein Total Protein Albumin Triglycerides Cholesterol Urine Creatinine Urine Microalbumin Vancomycin Trough Salicylates Acetaminophen 06/18/19 06/18/19 06/18/19 11:59 17:40 17:58 WBC RBC Hgb Hct MCH RDW Plt Count Lymph % (Auto) Seg Neutrophils % Seg Neuts % (Manual) Lymphocytes % (Manual) Monocytes % (Manual) Seg Neutrophils # Seg Neutrophils # Man Lymphocytes # (Manual) Monocytes # (Manual) D-Dimer ABG pH ABG pO2 ABG HCO3 ABG O2 Saturation ABG Base Excess ABG Hemoglobin VBG pH Oxyhemoglobin Sodium Potassium Chloride Carbon Dioxide BUN Creatinine Glucose POC Glucose 299 H 272 H 301 H Hemoglobin A1c Lactic Acid Calcium Phosphorus Magnesium Ferritin AST ALT Alkaline Phosphatase Lactate Dehydrogenase C-Reactive Protein Total Protein Albumin Triglycerides Cholesterol Urine Creatinine Urine Microalbumin Vancomycin Trough Salicylates Acetaminophen 06/18/19 06/18/19 20:48 23:30 WBC RBC Hgb Hct MCH RDW Plt Count Lymph % (Auto) Seg Neutrophils % Seg Neuts % (Manual) Lymphocytes % (Manual) Monocytes % (Manual) Seg Neutrophils # Seg Neutrophils # Man Lymphocytes # (Manual) Monocytes # (Manual) D-Dimer ABG pH ABG pO2 ABG HCO3 ABG O2 Saturation ABG Base Excess ABG Hemoglobin VBG pH Oxyhemoglobin Sodium Potassium Chloride Carbon Dioxide BUN Creatinine Glucose POC Glucose 282 H 283 H Hemoglobin A1c Lactic Acid Calcium Phosphorus Magnesium Ferritin AST ALT Alkaline Phosphatase Lactate Dehydrogenase C-Reactive Protein Total Protein Albumin Triglycerides Cholesterol Urine Creatinine Urine Microalbumin Vancomycin Trough Salicylates Acetaminophen Allied health notes reviewed: RT
--- NOTE | 2019-06-19 13:58 | Progress Note ---
Assessment and Plan Assessment and plan: Mrs. Tomas is a 48-year-old female with a history of hypertension, type 2 diabetes mellitus events with altered mental status. She arrived per EMS. Last known time normal 10 PM on night prior to admission. Patient is nonverbal. History obtained from paramedics and electronic medical record. Patient had been ill with fever cough for the past several days. She recently returned back from [place]. EMS discovered patient to be altered with work of breathing. Patient is nonverbal. She was not moving her right side. She is hypoxic at 77% room air. Blood pressure was 140/97. Blood sugar was elevated fingerstick. Hx obtained from [facility] realized that patient was not speaking 4 AM. Found her later breathing really heavy. Unresponsive. When she came back from [place] last Saturday. She had high fever. Her doctor ordered test for COVID-19. Dr. Rausch her PCP informed patient that she tested negative. She went to [place] to celebrate her mother's birthday. On admission she was noted to be in DKA and started on DKA protocol. She was al so intubated and on full mechanical ventilatory support. Diagnostic work-up so far EKG shows sinus tachycardia with MAT CT head no acute intracranial process CT cervical spine patchy groundglass consolidative airspace disease right mid to lower lung Mrs. Tomas presents with altered mental status hypoxia. She required mechanical ventilation for oxygenation and airway control. Initially was not moving her right side. With oxygen supplementation she began to move both of her arms. She continued to be nonverbal. She did not follow commands prior to intubation. With CT chest findings and history of fever I strongly suspect COVID 19. Although she previously tested negative there is significant support of false negative test so we will retest. survey form was filled out in the ED by the ED physician through the [facility] department of health as a person under investigation for COVID 19. Patient returned 1 week ago from [place] after celebrating her mother's birthday. * COVID 19 test results came back positive has been advised to forego quarantine himself. COVID 19 Induced Pneumonia Acute hypoxic respiratory failure mild on mechanical ventilation Hypernatremia-remains elevated will increase free water. Hypertension Acute metabolic encephalopathy Right upper extremity weakness now resolved Pneumonia Hypokalemia Leukocytosis Sepsis secondary to pneumonia-with hypothermia Severe metabolic acidosis DKA-resolved Diabetes mellitus with uncontrolled blood sugar Plan 06/04: Remains on full mechanical support. Patient with respiratory alkalosis noted. Adjustment made to the ventilator to decrease the rate. Will replace potassium as hypokalemia still persist. Hypernatremia gradually improving will adjust free water. Patient's anion gap is finally closed will transition to sliding scale coverage with Lantus. Anticipate weaning trial today if patient is amendable to it. Oxygen at requirements per vent settings appears to be improving 06/05: Leukocytosis improving although patient still hypoxic on the ventilator. Awaiting COVID 19 testing results. In addition continue antibiotics for broad- spectrum coverage. Will adjust insulin for better blood sugar control. 06/06: We will increase free water to 300 cc every 4 hours. We will also obtain consultation from conveyor belt repairer. Otherwise continue current therapy. Also noted to have diastolic hypertension will adjust blood pressure medications. Initiated home meds. 06/07: Sodium gradually improving, will adjust free water to 350 while awaiting todays lab and conveyor belt repairer. Patient still with non purposeful movement. Will discuss with ID about possible trial drug Ivermectin. Adjust basal insulin to 40 units BID 06/08: ID and pulmonary considering trial of the new medication ivermectin as patient's inflammatory markers went back up. Sodium mildly elevated. In addition to blood sugar. Discontinued D5 water which could be leading to elevated blood sugar. Will adjust free water to 400 every 4 hours. Nephrology following 06/09: Continue supportive care, Continue Management per ID and Critical care team. 06/10 weaning in progress, on D5W for correcting the hypernatremia. Potassium supplemented 06/12/19 probable extubation tomorrow 06/13/19--Extubated today 06/14/19 For transfer to floor 06/14: Patient unable to Transfer to the floor as she became hypoxic requiring H ighflow oxygen, Low potassium noted, will replace, monitor Blood glucose. Exam limited due to limited PPE. Inflammatory markers improving. 06/15: Still concern for possible decompensation. Will continue on ICU status at this time. Aspiration precautions. Continue high flow. Replace electrolytes as needed. 06/16: Discussed with Magnetizer, patient still on High flow oxygen and failed swallow evaluation yesterday. We will continue to follow. We will continue ICU care at this time. A Dobbhoff has been placed for nutritional support. I have updated the patient's and patient's improvement so far. 06/18/19: Patient clinically continues to improve. We will downgrade to stepdown still on high flow tolerating tube feeds. 06/18: Awaiting repeat COVID Test, continue rehab, Lantus adjusted for better control,. Oxygen down to 60% High flow needs, maintining sats but still very lethargic Magnetizer and infectious disease consult input noted EKG reviewed no evidence of atrial fibrillation. Replace potassium DKA protocol with insulin-will be discontinued f/u COVID test - pending Continue COVID isolation precautions per [facility] protocol S/P Plaquenil and azithromycin X 5 DAYS Obtain serial Ferritin, LDH, D-Dimer, CRP every 48h Empiric antibiotic coverage, obtain blood cultures and urine cultures and sputum cultures. Wean from vent as tolerated defer to manager green We will monitor EKG for any visualization of the atrial fibrillation. If persist will obtain cardiology consult. DVT and GI prophylaxis The high probability of a clinically significant, sudden or life threatening deterioration of the [pulmonary, neuro,] system(s) required my full and direct attention, intervention and personal management. The aggregate critical care time was [32] minutes. This time is in addition to time spent performing reported procedures but includes the following: [x] Data Review and interpretation [x] Patient assessment and monitoring of vital signs [x] Documentation [x] Medication orders and management History Interval history: Patient seen and examined continues on high flow oxygen post extubation.although patient is still on high flow she is stable now . PUI?: Yes COVID19: Positive Hospitalist Physical - Physical exam Narrative exam: Constitutional: no acute distress, asleep, other (Atraumatic, normocephalic,) Eyes: non-icteric ENT: Follows some commands moves all ext Neck: supple, no lymphadenopathy, no JVD Effort: normal Ascultation: Bilateral: diminished breath sounds, rhonchi Percussion: Bilateral: not dull Cardiovascular: irregular rhythm, other (S1,S2, no murmurs) Gastrointestinal: normoactive bowel sounds, soft, non-tender, tender Integumentary: normal Extremities: no cyanosis, no edema, pulses normal, no ischemia or petechiae Neurologic: per staff following some command Psychiatric: other exam limited due to limited PPE's - Constitutional Vitals: Temp Pulse Resp BP Pulse Ox 98.5 F 100 H 23 124/87 96 06/19/19 12:00 06/19/19 12:00 06/19/19 12:00 06/19/19 12:00 06/19/19 12:00 General appearance: Present: no acute distress, well-nourished MACK score - Mack Score Age > 65: (0) No 3 or more CAD Risk Factors: (1) Yes 2 or more Angina events in past 24 hrs: (0) No Known CAD with more than 50% Stenosis: (0) No Elevated Cardiac Markers: (0) No ST Deviation Greater than 0.5mm: (0) No Results - Labs CBC & Chem 7: 06/16/19 05:16 06/16/19 05:16 Labs: Laboratory Last Values WBC 12.4 K/mm3 (4.5-11.0) H 06/16/19 05:16 RBC 4.62 M/mm3 (3.65-5.03) 06/16/19 05:16 Hgb 12.8 gm/dl (10.1-14.3) 06/16/19 05:16 Hct 40.3 % (30.3-42.9) 06/16/19 05:16 MCV 87 fl (79-97) 06/16/19 05:16 MCH 28 pg (28-32) 06/16/19 05:16 MCHC 32 % (30-34) 06/16/19 05:16 RDW 14.5 % (13.2-15.2) 06/16/19 05:16 Plt Count 215 K/mm3 (140-440) 06/16/19 05:16 Lymph % (Auto) 10.9 % (13.4-35.0) L 06/15/19 04:00 Kerr % (Auto) 4.6 % (0.0-7.3) 06/15/19 04:00 Eos % (Auto) 0.1 % (0.0-4.3) 06/15/19 04:00 Baso % (Auto) 0.3 % (0.0-1.8) 06/15/19 04:00 Lymph # 1.7 K/mm3 (1.2-5.4) 06/15/19 04:00 Kerr # 0.7 K/mm3 (0.0-0.8) 06/15/19 04:00 Eos # 0.0 K/mm3 (0.0-0.4) 06/15/19 04:00 Baso # 0.0 K/mm3 (0.0-0.1) 06/15/19 04:00 Add Manual Diff Complete 06/14/19 14:44 Total Counted 100 06/14/19 14:44 Seg Neutrophils % 84.1 % (40.0-70.0) H 06/15/19 04:00 Seg Neuts % (Manual) 81.0 % (40.0-70.0) H 06/14/19 14:44 Band Neutrophils % 0 % 06/14/19 14:44 Lymphocytes % (Manual) 10.0 % (13.4-35.0) L 06/14/19 14:44 Reactive Lymphs % (Man) 0 % 06/14/19 14:44 Monocytes % (Manual) 7.0 % (0.0-7.3) 06/14/19 14:44 Eosinophils % (Manual) 1.0 % (0.0-4.3) 06/14/19 14:44 Basophils % (Manual) 1.0 % (0.0-1.8) 06/14/19 14:44 Metamyelocytes % 0 % 06/14/19 14:44 Myelocytes % 0 % 06/14/19 14:44 Promyelocytes % 0 % 06/14/19 14:44 Blast Cells % 0 % 06/14/19 14:44 Nucleated RBC % Not Reportable 06/14/19 14:44 Seg Neutrophils # 13.1 K/mm3 (1.8-7.7) H 06/15/19 04:00 Seg Neutrophils # Man 11.3 K/mm3 (1.8-7.7) H 06/14/19 14:44 Band Neutrophils # 0.0 K/mm3 06/14/19 14:44 Lymphocytes # (Manual) 1.4 K/mm3 (1.2-5.4) 06/14/19 14:44 Abs React Lymphs (Man) 0.0 K/mm3 06/14/19 14:44 Monocytes # (Manual) 1.0 K/mm3 (0.0-0.8) H 06/14/19 14:44 Eosinophils # (Manual) 0.1 K/mm3 (0.0-0.4) 06/14/19 14:44 Basophils # (Manual) 0.1 K/mm3 (0.0-0.1) 06/14/19 14:44 Metamyelocytes # 0.0 K/mm3 06/14/19 14:44 Myelocytes # 0.0 K/mm3 06/14/19 14:44 Promyelocytes # 0.0 K/mm3 06/14/19 14:44 Blast Cells # 0.0 K/mm3 06/14/19 14:44 WBC Morphology Not Reportable 06/14/19 14:44 Hypersegmented Neuts Not Reportable 06/14/19 14:44 Hyposegmented Neuts Not Reportable 06/14/19 14:44 Hypogranular Neuts Not Reportable 06/14/19 14:44 Smudge Cells Not Reportable 06/14/19 14:44 Toxic Granulation Not Reportable 06/14/19 14:44 Toxic Vacuolation Not Reportable 06/14/19 14:44 Dohle Bodies Not Reportable 06/14/19 14:44 Pelger-Huet Anomaly Not Reportable 06/14/19 14:44 Stephanie Rods Not Reportable 06/14/19 14:44 Platelet Estimate Not Reportable 06/14/19 14:44 Clumped Platelets Not Reportable 06/14/19 14:44 Plt Clumps, EDTA Not Reportable 06/14/19 14:44 Large Platelets Not Reportable 06/14/19 14:44 Giant Platelets Not Reportable 06/14/19 14:44 Platelet Satelliting Not Reportable 06/14/19 14:44 Plt Morphology Comment Not Reportable 06/14/19 14:44 RBC Morphology Not Reportable 06/14/19 14:44 Dimorphic RBCs Not Reportable 06/14/19 14:44 Polychromasia Not Reportable 06/14/19 14:44 Hypochromasia 1+ 06/14/19 14:44 Poikilocytosis Not Reportable 06/14/19 14:44 Anisocytosis 1+ 06/14/19 14:44 Microcytosis Not Reportable 06/14/19 14:44 Macrocytosis Not Reportable 06/14/19 14:44 Spherocytes Not Reportable 06/14/19 14:44 Pappenheimer Bodies Not Reportable 06/14/19 14:44 Sickle Cells Not Reportable 06/14/19 14:44 Target Cells Not Reportable 06/14/19 14:44 Tear Drop Cells Not Reportable 06/14/19 14:44 Ovalocytes Not Reportable 06/14/19 14:44 Helmet Cells Not Reportable 06/14/19 14:44 [place] Bodies Not Reportable 06/14/19 14:44 [place] Rings Not Reportable 06/14/19 14:44 [place] Cells Not Reportable 06/14/19 14:44 Bite Cells Not Reportable 06/14/19 14:44 Crenated Cell Not Reportable 06/14/19 14:44 Elliptocytes Not Reportable 06/14/19 14:44 Acanthocytes (Spur) Not Reportable 06/14/19 14:44 Rouleaux Not Reportable 06/14/19 14:44 Hemoglobin C Crystals Not Reportable 06/14/19 14:44 Schistocytes Not Reportable 06/14/19 14:44 Malaria parasites Not Reportable 06/14/19 14:44 Elias Bodies Not Reportable 06/14/19 14:44 Hem Pathologist Commnt No 06/14/19 14:44 D-Dimer 836.6 ng/mlDDU (0-234) H 06/15/19 04:00 ABG pH 7.488 pH Units (7.350-7.450) H 06/14/19 16:35 ABG pCO2 40.7 mm Hg 06/14/19 16:35 ABG pO2 66.1 mm Hg (80.0-90.0) L 06/14/19 16:35 ABG HCO3 30.2 mmol/L (20.0-26.0) H 06/14/19 16:35 ABG O2 Saturation 94.7 % (95.0-99.0) L 06/14/19 16:35 ABG O2 Content 19.1 (0.0-44) 06/14/19 16:35 ABG Base Excess 6.3 mmol/L (-2.0-3.0) H 06/14/19 16:35 ABG Hemoglobin 14.6 gm/dl (12.0-16.0) 06/14/19 16:35 ABG Carboxyhemoglobin 1.0 % (0.0-5.0) 06/14/19 16:35 ABG Methemoglobin 0.5 % (0.0-1.5) 06/14/19 16:35 VBG pH 6.901 (7.320-7.420) L* 06/03/19 11:51 Oxyhemoglobin 93.3 % (95.0-99.0) L 06/14/19 16:35 FiO2 80 % 06/14/19 16:35 Sodium 145 mmol/L (137-145) 06/16/19 05:16 Potassium 3.4 mmol/L (3.6-5.0) L 06/16/19 05:16 Chloride 104.0 mmol/L (98-107) 06/16/19 05:16 Carbon Dioxide 27 mmol/L (22-30) 06/16/19 05:16 Anion Gap 17 mmol/L 06/16/19 05:16 BUN 14 mg/dL (7-17) 06/16/19 05:16 Creatinine 0.5 mg/dL (0.7-1.2) L 06/16/19 05:16 Estimated GFR > 60 ml/min 06/16/19 05:16 BUN/Creatinine Ratio 28 % 06/16/19 05:16 Glucose 215 mg/dL (65-100) H 06/16/19 05:16 POC Glucose 287 (70-105) H 06/19/19 12:50 Hemoglobin A1c 9.6 % (4-6) H 06/03/19 16:03 Lactic Acid 1.90 mmol/L (0.7-2.0) 06/03/19 21:32 Calcium 9.7 mg/dL (8.4-10.2) 06/16/19 05:16 Phosphorus 2.20 mg/dL (2.5-4.5) L 06/08/19 09:33 Magnesium 2.60 mg/dL (1.7-2.3) H 06/08/19 09:33 Ferritin 908.8 ng/mL (13.0-400.0) H 06/15/19 04:00 Total Bilirubin 0.20 mg/dL (0.1-1.2) 06/12/19 03:58 AST 103 units/L (5-40) H 06/12/19 03:58 ALT 101 units/L (7-56) H 06/12/19 03:58 Alkaline Phosphatase 128 units/L (35-129) 06/12/19 03:58 Lactate Dehydrogenase 386 units/L (91-180) H 06/15/19 04:00 Troponin T < 0.010 ng/mL (0.00-0.029) 06/03/19 11:51 C-Reactive Protein 17.00 mg/dL (0.00-1.30) H 06/15/19 04:00 Total Protein 5.9 g/dL (6.3-8.2) L 06/12/19 03:58 Albumin 2.3 g/dL (3.9-5) L 06/12/19 03:58 Albumin/Globulin Ratio 0.6 % 06/12/19 03:58 Triglycerides 304 mg/dL (2-149) H 06/09/19 07:34 Cholesterol 250 mg/dL (50-199) H 06/03/19 19:00 LDL Cholesterol Direct TNR 06/03/19 19:00 HDL Cholesterol 46 mg/dL (40-59) 06/03/19 19:00 Cholesterol/HDL Ratio 5.43 % 06/03/19 19:00 Procalcitonin 0.10 ng/mL (<0.15) 06/13/19 09:23 Urine Color Yellow (Yellow) 06/03/19 11:48 Urine Turbidity Clear (Clear) 06/03/19 11:48 Urine pH 6.0 (5.0-7.0) 06/03/19 11:48 Ur Specific [place] 1.026 (1.003-1.030) 06/03/19 11:48 Urine Protein 100 mg/dl mg/dL (Negative) 06/03/19 11:48 Urine Glucose (UA) >=500 mg/dL (Negative) 06/03/19 11:48 Urine Ketones 80 mg/dL (Negative) 06/03/19 11:48 Urine Blood Mod (Negative) 06/03/19 11:48 Urine Nitrite Neg (Negative) 06/03/19 11:48 Urine Bilirubin Neg (Negative) 06/03/19 11:48 Urine Urobilinogen < 2.0 mg/dL (<2.0) 06/03/19 11:48 Ur Leukocyte Esterase Neg (Negative) 06/03/19 11:48 Urine WBC (Auto) 1.0 /HPF (0.0-6.0) 06/03/19 11:48 Urine RBC (Auto) 2.0 /HPF (0.0-6.0) 06/03/19 11:48 Granular Casts 4 /LPF 06/03/19 11:48 Urine Mucus Few /HPF 06/03/19 11:48 Urine Osmolality 755 Mosm/kg 06/07/19 17:00 Urine Creatinine 37.4 mg/dL (0.1-20.0) H 06/03/19 11:48 Urine Microalbumin 65.1 mg/dL (0.1-34.0) H 06/03/19 11:48 Microalb/Creat Ratio 1740.6 ug/mg 06/03/19 11:48 Urine Sodium 130 mmol/L 06/07/19 17:00 Urine Chloride 172.4 mmolL (110-250) 06/07/19 17:00 Urine HCG, Qual Negative (Negative) 06/03/19 11:48 Vancomycin Trough 4.2 ug/mL (5.0-20.0) L 06/05/19 21:00 Salicylates < 0.3 mg/dL (2.8-20.0) L 06/03/19 11:51 Urine Opiates Screen Presumptive negative 06/03/19 11:48 Urine Methadone Screen Presumptive negative 06/03/19 11:48 Acetaminophen < 5.0 ug/mL (10.0-30.0) L 06/03/19 11:51 Ur Barbiturates Screen Presumptive negative 06/03/19 11:48 Ur Phencyclidine Scrn Presumptive negative 06/03/19 11:48 Ur Amphetamines Screen Presumptive negative 06/03/19 11:48 U Benzodiazepines Scrn Presumptive negative 06/03/19 11:48 Urine Cocaine Screen Presumptive negative 06/03/19 11:48 U Marijuana (THC) Screen Presumptive negative 06/03/19 11:48 Drugs of Abuse Note Disclamer 06/03/19 11:48 Plasma/Serum Alcohol < 0.01 % (0-0.07) 06/03/19 11:51 Coronavirus (PCR) Negative (Negative) 06/18/19 16:35 Hepatitis A IgM Ab Non-reactive (NonReactive) 06/04/19 08:19 Hep Bs Antigen Non-reactive (Negative) 06/04/19 08:19 Hep B Core IgM Ab Non-reactive (NonReactive) 06/04/19 08:19 Hepatitis C Antibody Non-reactive (NonReactive) 06/04/19 08:19 Influenza A (Rapid) Negative (Negative) 06/03/19 Unknown Influenza B (Rapid) Negative (Negative) 06/03/19 Unknown Miscellaneous Test See scanned result 06/05/19 Unknown Alves/IV: Voiding Method External Female Catheter IV Catheter Type [Left Wrist] INT / Saline Lock IV Catheter Type [Right Hand] INT / Saline Lock IV Catheter Type [Left Hand] INT / Saline Lock IV Catheter Type [Right INT / Saline Lock Antecubital] IV Catheter Type [Left Peripheral IV Antecubital] Active Medications - Current Medications Current Medications: Generic Name Dose Route Start Last Admin Trade Name Freq PRN Reason Stop Dose Admin Albuterol 2 puff 06/15/19 12:24 Proair IH Q4HRT PRN Shortness Of Breath Amlodipine Besylate 5 mg 06/13/19 14:00 06/19/19 10:57 Amlodipine PO 5 mg QDAY JOSE ROBERTO Administration Lipase/Protease/Amylase 1 each 06/05/19 09:[address] 10,500 Unit FEEDTUBE PRN PRN For Clogged Feeding Tube Dextrose 50 ml 06/03/19 13:57 D50w (25gm) Syringe IV Q30MIN PRN Hypoglycemia Protocol Famotidine 20 mg 06/06/19 10:00 06/19/19 10:57 Pepcid PO 20 mg BID JOSE ROBERTO Administration Heparin Sodium (Porcine) 5,000 unit 06/03/19 14:15 06/19/19 10:57 Heparin SUB-Q 5,000 unit Q12HR JOSE ROBERTO Administration Hydralazine HCl 10 mg 06/07/19 08:42 06/17/19 02:25 Apresoline IV 10 mg Q4HR PRN Administration Hypertension Hydrophilic Ointment 1 applic 06/03/19 11:02 Vaseline Lip Therapy TP Q2HR PRN Dry Lips Insulin Glargine 20 units 06/19/19 22:00 Lantus SUB-Q QHS JOSE ROBERTO Insulin Human Regular 0 units 06/16/19 18:00 06/19/19 12:47 Humulin R SUB-Q 4 units Q6H JOSE ROBERTO Administration Protocol Losartan Potassium 50 mg 06/07/19 10:00 06/19/19 10:57 Cozaar PO 50 mg QDAY JOSE ROBERTO Administration Multi-Ingred Cream/Lotion/Oil/Oint 1 applic 06/03/19 11:02 Artificial Tears Ophth Oint OU Q4HR PRN Dry Eye(s) Quetiapine Fumarate 25 mg 06/18/19 22:00 06/18/19 21:44 Seroquel PO 25 mg QHS JOSE ROBERTO Administration Senna 8.6 mg 06/03/19 22:00 06/19/19 10:57 Senokot PO 8.6 mg BID JOSE ROBERTO Administration Simple Syrup 15 ml 06/05/19 09:59 Simple Syrup FEEDTUBE PRN PRN Hypoglycemia Simple Syrup 30 ml 06/05/19 09:59 Simple Syrup FEEDTUBE PRN PRN Hypoglycemia Sodium Bicarbonate 325 mg 06/05/19 09:59 Sodium Bicarbonate FEEDTUBE PRN PRN For Clogged Feeding Tube Sodium Chloride 10 ml 06/03/19 22:00 06/19/19 10:57 Sodium Chloride Flush Syringe 10 Ml IV 10 ml BID JOSE ROBERTO Administration Sodium Chloride 10 ml 06/03/19 13:57 Sodium Chloride Flush Syringe 10 Ml IV PRN PRN LINE FLUSH Nutrition/Malnutrition Assess - Dietary Evaluation Nutrition/Malnutrition Findings: Nutrition Notes Start: 06/04/19 08:30 Freq: Status: Active Protocol: Document 06/18/19 14:13 LM (Rec: 06/18/19 14:16 LM [id number]) Nutrition Notes Initial or Follow up Reassessment Current Diagnosis Diabetes,Sepsis,Hypertension, Respiratory Failure, Hyperlipidemia Other Pertinent Diagnosis COVID-19 positive, Pneu, metabolic encephalopathy Current Diet Glucerna 1.2 at 60ml/hr Labs/Tests POC glu 299 Pertinent Medications Humulin Height 5 ft 6 in Weight 81.1 kg [place] Body Weight (kg) 59.09 BMI 28.8 Weight Status Overweight Subjective/Other Information Per RN pt tolerating TF at goal. Percent of energy/protein needs met: 98%/100% Burn Absent Trauma Absent Current % PO Negligible Minimum of two criteria No Fluid Accumulation Mild (non-severe) #1 Nutrition Diagnosis Inadequate oral intake Diagnosis Progress(for reassessment Continues documentation) Is patient on ventilator? No Is Patient Ambulatory and/or Out of Bed No REE-([place]-. [place]al-confined to bed) 9428.840 Calculation Used for Recommendations [facility] Additional Notes Protein: 65-81g (0.8-1g/kg) Fluid: 1ml/kcal Nutrition Intervention Change Diet Order: TF Nutrition Support: Glucerna 1.2 at 60ml/hr Flush 100 ml q4h Kcal 1,728 Protein (gm) 86 Fluid (mL) 1,159 Goal #1 TF tolerance Goal #2 Meet at least 80% of energy and protein needs Anticipated Discharge Needs: unable to determine at this time Follow-Up By: 06/24/19 Additional Comments F/U for TF tolerance
[2019-06-19] MEDS: QUEtiapine 25 MG TAB PO SCH (21:27)
[2019-06-19] MEDS ORDERED: INSULIN GLARGINE 100 UNITS/ML SUB-Q SCH (22:00)
[2019-06-20] MEDS: INSULIN REGULAR, HUMAN 100 UNITS/1 ML SUB-Q SCH ×4 (01:25→18:24)
[2019-06-20 06:16] LABS: Hematocrit 39.7 % (30.3-42.9); Hemoglobin 12.6 gm/dl (10.1-14.3); Mean Corpuscular HGB Conc 32 % (30-34); Mean Corpuscular Volume 88 fl (79-97); Platelet Count 255 K/mm3 (140-440); Red Blood Count 4.55 M/mm3 (3.65-5.03); Red Cell Distribution Width 14.3 % (13.2-15.2)
[2019-06-20 06:21] LABS: BUN/Creatinine Ratio 35; Blood Urea Nitrogen 14 mg/dL (7-17); Calcium 9.9 mg/dL (8.4-10.2); Hemolysis Index 26
[2019-06-20] MEDS ORDERED: INSULIN GLARGINE 100 UNITS/ML SUB-Q ONE (09:00)
[2019-06-20] MEDS: SENNOSIDES 8.6 MG TAB PO SCH ×2 (09:26→21:59)
[2019-06-20] MEDS: HEPARIN 5,000 UNIT/1 ML VIAL SUB-Q SCH ×2 (09:26→22:00)
[2019-06-20] MEDS: amLODIPine 5 MG TAB PO SCH (09:27)
[2019-06-20] MEDS: LOSARTAN 50 MG TAB PO SCH (09:27)
[2019-06-20] MEDS: FAMOTIDINE 20 MG TAB PO SCH ×2 (09:27→21:57)
--- NOTE | 2019-06-20 11:33 | Progress Note ---
Assessment and Plan Assessment and plan: Mrs. Tomas is a 48-year-old female with a history of hypertension, type 2 diabetes mellitus events with altered mental status. She arrived per EMS. Last known time normal 10 PM on night prior to admission. Patient is nonverbal. History obtained from paramedics and electronic medical record. Patient had been ill with fever cough for the past several days. She recently returned back from [place]. EMS discovered patient to be altered with work of breathing. Patient is nonverbal. She was not moving her right side. She is hypoxic at 77% room air. Blood pressure was 140/97. Blood sugar was elevated fingerstick. Hx obtained from [facility] realized that patient was not speaking 4 AM. Found her later breathing really heavy. Unresponsive. When she came back from [place] last Saturday. She had high fever. Her doctor ordered test for COVID-19. Dr. Rausch her PCP informed patient that she tested negative. She went to [place] to celebrate her mother's birthday. On admission she was noted to be in DKA and started on DKA protocol. She was al so intubated and on full mechanical ventilatory support. Diagnostic work-up so far EKG shows sinus tachycardia with MAT CT head no acute intracranial process CT cervical spine patchy groundglass consolidative airspace disease right mid to lower lung Mrs. Tomas presents with altered mental status hypoxia. She required mechanical ventilation for oxygenation and airway control. Initially was not moving her right side. With oxygen supplementation she began to move both of her arms. She continued to be nonverbal. She did not follow commands prior to intubation. With CT chest findings and history of fever I strongly suspect COVID 19. Although she previously tested negative there is significant support of false negative test so we will retest. survey form was filled out in the ED by the ED physician through the [facility] department of health as a person under investigation for COVID 19. Patient returned 1 week ago from [place] after celebrating her mother's birthday. * COVID 19 test results came back positive has been advised to forego quarantine himself. COVID 19 Induced Pneumonia Acute hypoxic respiratory failure mild on mechanical ventilation Hypernatremia-remains elevated will increase free water. Hypertension Acute metabolic encephalopathy Right upper extremity weakness now resolved Pneumonia Hypokalemia Leukocytosis Sepsis secondary to pneumonia-with hypothermia Severe metabolic acidosis DKA-resolved Diabetes mellitus with uncontrolled blood sugar Plan 06/04: Remains on full mechanical support. Patient with respiratory alkalosis noted. Adjustment made to the ventilator to decrease the rate. Will replace potassium as hypokalemia still persist. Hypernatremia gradually improving will adjust free water. Patient's anion gap is finally closed will transition to sliding scale coverage with Lantus. Anticipate weaning trial today if patient is amendable to it. Oxygen at requirements per vent settings appears to be improving 06/05: Leukocytosis improving although patient still hypoxic on the ventilator. Awaiting COVID 19 testing results. In addition continue antibiotics for broad- spectrum coverage. Will adjust insulin for better blood sugar control. 06/06: We will increase free water to 300 cc every 4 hours. We will also obtain consultation from worm farmer. Otherwise continue current therapy. Also noted to have diastolic hypertension will adjust blood pressure medications. Initiated home meds. 06/07: Sodium gradually improving, will adjust free water to 350 while awaiting todays lab and worm farmer. Patient still with non purposeful movement. Will discuss with ID about possible trial drug Ivermectin. Adjust basal insulin to 40 units BID 06/08: ID and pulmonary considering trial of the new medication ivermectin as patient's inflammatory markers went back up. Sodium mildly elevated. In addition to blood sugar. Discontinued D5 water which could be leading to elevated blood sugar. Will adjust free water to 400 every 4 hours. Nephrology following 06/09: Continue supportive care, Continue Management per ID and Critical care team. 06/10 weaning in progress, on D5W for correcting the hypernatremia. Potassium supplemented 06/12/19 probable extubation tomorrow 06/13/19--Extubated today 06/14/19 For transfer to floor 06/14: Patient unable to Transfer to the floor as she became hypoxic requiring H ighflow oxygen, Low potassium noted, will replace, monitor Blood glucose. Exam limited due to limited PPE. Inflammatory markers improving. 06/15: Still concern for possible decompensation. Will continue on ICU status at this time. Aspiration precautions. Continue high flow. Replace electrolytes as needed. 06/16: Discussed with Roustabout Supervisor, patient still on High flow oxygen and failed swallow evaluation yesterday. We will continue to follow. We will continue ICU care at this time. A Dobbhoff has been placed for nutritional support. I have updated the patient's and patient's improvement so far. 06/18/19: Patient clinically continues to improve. We will downgrade to stepdown still on high flow tolerating tube feeds. 06/18: Awaiting repeat COVID Test, continue rehab, Lantus adjusted for better control,. Oxygen down to 60% High flow needs, maintining sats but still very lethargic 06/19: gradually improving, I have requested repeat COVID19 TEST TODAY, LAST TEST ON THE WAS negative, with one additional negative she can be discharged to LTAC as she is still on high flow Roustabout Supervisor and infectious disease consult input noted EKG reviewed no evidence of atrial fibrillation. Replace potassium DKA protocol with insulin-will be discontinued f/u COVID test - pending Continue COVID isolation precautions per [facility] protocol S/P Plaquenil and azithromycin X 5 DAYS Obtain serial Ferritin, LDH, D-Dimer, CRP every 48h Empiric antibiotic coverage, obtain blood cultures and urine cultures and sputum cultures. Wean from vent as tolerated defer to senior chemical engineer We will monitor EKG for any visualization of the atrial fibrillation. If persist will obtain cardiology consult. DVT and GI prophylaxis The high probability of a clinically significant, sudden or life threatening d eterioration of the [pulmonary, neuro,] system(s) required my full and direct attention, intervention and personal management. The aggregate critical care time was [32] minutes. This time is in addition to time spent performing reported procedures but includes the following: [x] Data Review and interpretation [x] Patient assessment and monitoring of vital signs [x] Documentation [x] Medication orders and management History Interval history: Patient seen and examined continues on high flow oxygen post extubation. Although patient is still on high flow she is stable now at 60% Hospitalist Physical - Physical exam Narrative exam: Constitutional: no acute distress, asleep, other (Atraumatic, normocephalic,) Eyes: non-icteric ENT: Follows some commands moves all ext Neck: supple, no lymphadenopathy, no JVD Effort: normal Ascultation: Bilateral: diminished breath sounds, rhonchi Percussion: Bilateral: not dull Cardiovascular: irregular rhythm, other (S1,S2, no murmurs) Gastrointestinal: normoactive bowel sounds, soft, non-tender, tender Integumentary: normal Extremities: no cyanosis, no edema, pulses normal, no ischemia or petechiae Neurologic: per staff following some command Psychiatric: other exam limited due to limited PPE's - Constitutional Vitals: Temp Pulse Resp BP Pulse Ox 97.6 F 83 21 154/99 98 06/20/19 08:00 06/20/19 10:01 06/20/19 10:01 06/20/19 09:27 06/20/19 10:01 General appearance: Present: no acute distress, well-nourished MACK score - Mack Score Age > 65: (0) No 3 or more CAD Risk Factors: (1) Yes 2 or more Angina events in past 24 hrs: (0) No Known CAD with more than 50% Stenosis: (0) No Elevated Cardiac Markers: (0) No ST Deviation Greater than 0.5mm: (0) No Results - Labs CBC & Chem 7: 06/20/19 04:50 06/20/19 04:50 Labs: Laboratory Last Values WBC 7.1 K/mm3 (4.5-11.0) 06/20/19 04:50 RBC 4.55 M/mm3 (3.65-5.03) 06/20/19 04:50 Hgb 12.6 gm/dl (10.1-14.3) 06/20/19 04:50 Hct 39.7 % (30.3-42.9) 06/20/19 04:50 MCV 88 fl (79-97) 06/20/19 04:50 MCH 28 pg (28-32) 06/20/19 04:50 MCHC 32 % (30-34) 06/20/19 04:50 RDW 14.3 % (13.2-15.2) 06/20/19 04:50 Plt Count 255 K/mm3 (140-440) 06/20/19 04:50 Lymph % (Auto) 10.9 % (13.4-35.0) L 06/15/19 04:00 [place] % (Auto) 4.6 % (0.0-7.3) 06/15/19 04:00 Eos % (Auto) 0.1 % (0.0-4.3) 06/15/19 04:00 Baso % (Auto) 0.3 % (0.0-1.8) 06/15/19 04:00 Lymph # 1.7 K/mm3 (1.2-5.4) 06/15/19 04:00 [place] # 0.7 K/mm3 (0.0-0.8) 06/15/19 04:00 Eos # 0.0 K/mm3 (0.0-0.4) 06/15/19 04:00 Baso # 0.0 K/mm3 (0.0-0.1) 06/15/19 04:00 Add Manual Diff Complete 06/14/19 14:44 Total Counted 100 06/14/19 14:44 Seg Neutrophils % 84.1 % (40.0-70.0) H 06/15/19 04:00 Seg Neuts % (Manual) 81.0 % (40.0-70.0) H 06/14/19 14:44 Band Neutrophils % 0 % 06/14/19 14:44 Lymphocytes % (Manual) 10.0 % (13.4-35.0) L 06/14/19 14:44 Reactive Lymphs % (Man) 0 % 06/14/19 14:44 Monocytes % (Manual) 7.0 % (0.0-7.3) 06/14/19 14:44 Eosinophils % (Manual) 1.0 % (0.0-4.3) 06/14/19 14:44 Basophils % (Manual) 1.0 % (0.0-1.8) 06/14/19 14:44 Metamyelocytes % 0 % 06/14/19 14:44 Myelocytes % 0 % 06/14/19 14:44 Promyelocytes % 0 % 06/14/19 14:44 Blast Cells % 0 % 06/14/19 14:44 Nucleated RBC % Not Reportable 06/14/19 14:44 Seg Neutrophils # 13.1 K/mm3 (1.8-7.7) H 06/15/19 04:00 Seg Neutrophils # Man 11.3 K/mm3 (1.8-7.7) H 06/14/19 14:44 Band Neutrophils # 0.0 K/mm3 06/14/19 14:44 Lymphocytes # (Manual) 1.4 K/mm3 (1.2-5.4) 06/14/19 14:44 Abs React Lymphs (Man) 0.0 K/mm3 06/14/19 14:44 Monocytes # (Manual) 1.0 K/mm3 (0.0-0.8) H 06/14/19 14:44 Eosinophils # (Manual) 0.1 K/mm3 (0.0-0.4) 06/14/19 14:44 Basophils # (Manual) 0.1 K/mm3 (0.0-0.1) 06/14/19 14:44 Metamyelocytes # 0.0 K/mm3 06/14/19 14:44 Myelocytes # 0.0 K/mm3 06/14/19 14:44 Promyelocytes # 0.0 K/mm3 06/14/19 14:44 Blast Cells # 0.0 K/mm3 06/14/19 14:44 WBC Morphology Not Reportable 06/14/19 14:44 Hypersegmented Neuts Not Reportable 06/14/19 14:44 Hyposegmented Neuts Not Reportable 06/14/19 14:44 Hypogranular Neuts Not Reportable 06/14/19 14:44 Smudge Cells Not Reportable 06/14/19 14:44 Toxic Granulation Not Reportable 06/14/19 14:44 Toxic Vacuolation Not Reportable 06/14/19 14:44 Dohle Bodies Not Reportable 06/14/19 14:44 Pelger-Huet Anomaly Not Reportable 06/14/19 14:44 Stephanie Rods Not Reportable 06/14/19 14:44 Platelet Estimate Not Reportable 06/14/19 14:44 Clumped Platelets Not Reportable 06/14/19 14:44 Plt Clumps, EDTA Not Reportable 06/14/19 14:44 Large Platelets Not Reportable 06/14/19 14:44 Giant Platelets Not Reportable 06/14/19 14:44 Platelet Satelliting Not Reportable 06/14/19 14:44 Plt Morphology Comment Not Reportable 06/14/19 14:44 RBC Morphology Not Reportable 06/14/19 14:44 Dimorphic RBCs Not Reportable 06/14/19 14:44 Polychromasia Not Reportable 06/14/19 14:44 Hypochromasia 1+ 06/14/19 14:44 Poikilocytosis Not Reportable 06/14/19 14:44 Anisocytosis 1+ 06/14/19 14:44 Microcytosis Not Reportable 06/14/19 14:44 Macrocytosis Not Reportable 06/14/19 14:44 Spherocytes Not Reportable 06/14/19 14:44 Pappenheimer Bodies Not Reportable 06/14/19 14:44 Sickle Cells Not Reportable 06/14/19 14:44 Target Cells Not Reportable 06/14/19 14:44 Tear Drop Cells Not Reportable 06/14/19 14:44 Ovalocytes Not Reportable 06/14/19 14:44 Helmet Cells Not Reportable 06/14/19 14:44 Hutchinson-Kendall Bodies Not Reportable 06/14/19 14:44 [place] Rings Not Reportable 06/14/19 14:44 [place] Cells Not Reportable 06/14/19 14:44 Bite Cells Not Reportable 06/14/19 14:44 Crenated Cell Not Reportable 06/14/19 14:44 Elliptocytes Not Reportable 06/14/19 14:44 Acanthocytes (Spur) Not Reportable 06/14/19 14:44 Rouleaux Not Reportable 06/14/19 14:44 Hemoglobin C Crystals Not Reportable 06/14/19 14:44 Schistocytes Not Reportable 06/14/19 14:44 Malaria parasites Not Reportable 06/14/19 14:44 Elias Bodies Not Reportable 06/14/19 14:44 Hem Pathologist Commnt No 06/14/19 14:44 D-Dimer 836.6 ng/mlDDU (0-234) H 06/15/19 04:00 ABG pH 7.488 pH Units (7.350-7.450) H 06/14/19 16:35 ABG pCO2 40.7 mm Hg 06/14/19 16:35 ABG pO2 66.1 mm Hg (80.0-90.0) L 06/14/19 16:35 ABG HCO3 30.2 mmol/L (20.0-26.0) H 06/14/19 16:35 ABG O2 Saturation 94.7 % (95.0-99.0) L 06/14/19 16:35 ABG O2 Content 19.1 (0.0-44) 06/14/19 16:35 ABG Base Excess 6.3 mmol/L (-2.0-3.0) H 06/14/19 16:35 ABG Hemoglobin 14.6 gm/dl (12.0-16.0) 06/14/19 16:35 ABG Carboxyhemoglobin 1.0 % (0.0-5.0) 06/14/19 16:35 ABG Methemoglobin 0.5 % (0.0-1.5) 06/14/19 16:35 VBG pH 6.901 (7.320-7.420) L* 06/03/19 11:51 Oxyhemoglobin 93.3 % (95.0-99.0) L 06/14/19 16:35 FiO2 80 % 06/14/19 16:35 Sodium 147 mmol/L (137-145) H 06/20/19 04:50 Potassium 4.0 mmol/L (3.6-5.0) 06/20/19 04:50 Chloride 105.5 mmol/L (98-107) 06/20/19 04:50 Carbon Dioxide 31 mmol/L (22-30) H 06/20/19 04:50 Anion Gap 15 mmol/L 06/20/19 04:50 BUN 14 mg/dL (7-17) 06/20/19 04:50 Creatinine 0.4 mg/dL (0.7-1.2) L 06/20/19 04:50 Estimated GFR > 60 ml/min 06/20/19 04:50 BUN/Creatinine Ratio 35 % 06/20/19 04:50 Glucose 323 mg/dL (65-100) H 06/20/19 04:50 POC Glucose 290 (70-105) H 06/20/19 04:54 Hemoglobin A1c 9.6 % (4-6) H 06/03/19 16:03 Lactic Acid 1.90 mmol/L (0.7-2.0) 06/03/19 21:32 Calcium 9.9 mg/dL (8.4-10.2) 06/20/19 04:50 Phosphorus 2.20 mg/dL (2.5-4.5) L 06/08/19 09:33 Magnesium 2.60 mg/dL (1.7-2.3) H 06/08/19 09:33 Ferritin 908.8 ng/mL (13.0-400.0) H 06/15/19 04:00 Total Bilirubin 0.20 mg/dL (0.1-1.2) 06/12/19 03:58 AST 103 units/L (5-40) H 06/12/19 03:58 ALT 101 units/L (7-56) H 06/12/19 03:58 Alkaline Phosphatase 128 units/L (35-129) 06/12/19 03:58 Lactate Dehydrogenase 386 units/L (91-180) H 06/15/19 04:00 Troponin T < 0.010 ng/mL (0.00-0.029) 06/03/19 11:51 C-Reactive Protein 17.00 mg/dL (0.00-1.30) H 06/15/19 04:00 Total Protein 5.9 g/dL (6.3-8.2) L 06/12/19 03:58 Albumin 2.3 g/dL (3.9-5) L 06/12/19 03:58 Albumin/Globulin Ratio 0.6 % 06/12/19 03:58 Triglycerides 304 mg/dL (2-149) H 06/09/19 07:34 Cholesterol 250 mg/dL (50-199) H 06/03/19 19:00 LDL Cholesterol Direct TNR 06/03/19 19:00 HDL Cholesterol 46 mg/dL (40-59) 06/03/19 19:00 Cholesterol/HDL Ratio 5.43 % 06/03/19 19:00 Procalcitonin 0.10 ng/mL (<0.15) 06/13/19 09:23 Urine Color Yellow (Yellow) 06/03/19 11:48 Urine Turbidity Clear (Clear) 06/03/19 11:48 Urine pH 6.0 (5.0-7.0) 06/03/19 11:48 Ur Specific [place] 1.026 (1.003-1.030) 06/03/19 11:48 Urine Protein 100 mg/dl mg/dL (Negative) 06/03/19 11:48 Urine Glucose (UA) >=500 mg/dL (Negative) 06/03/19 11:48 Urine Ketones 80 mg/dL (Negative) 06/03/19 11:48 Urine Blood Mod (Negative) 06/03/19 11:48 Urine Nitrite Neg (Negative) 06/03/19 11:48 Urine Bilirubin Neg (Negative) 06/03/19 11:48 Urine Urobilinogen < 2.0 mg/dL (<2.0) 06/03/19 11:48 Ur Leukocyte Esterase Neg (Negative) 06/03/19 11:48 Urine WBC (Auto) 1.0 /HPF (0.0-6.0) 06/03/19 11:48 Urine RBC (Auto) 2.0 /HPF (0.0-6.0) 06/03/19 11:48 Granular Casts 4 /LPF 06/03/19 11:48 Urine Mucus Few /HPF 06/03/19 11:48 Urine Osmolality 755 Mosm/kg 06/07/19 17:00 Urine Creatinine 37.4 mg/dL (0.1-20.0) H 06/03/19 11:48 Urine Microalbumin 65.1 mg/dL (0.1-34.0) H 06/03/19 11:48 Microalb/Creat Ratio 1740.6 ug/mg 06/03/19 11:48 Urine Sodium 130 mmol/L 06/07/19 17:00 Urine Chloride 172.4 mmolL (110-250) 06/07/19 17:00 Urine HCG, Qual Negative (Negative) 06/03/19 11:48 Vancomycin Trough 4.2 ug/mL (5.0-20.0) L 06/05/19 21:00 Salicylates < 0.3 mg/dL (2.8-20.0) L 06/03/19 11:51 Urine Opiates Screen Presumptive negative 06/03/19 11:48 Urine Methadone Screen Presumptive negative 06/03/19 11:48 Acetaminophen < 5.0 ug/mL (10.0-30.0) L 06/03/19 11:51 Ur Barbiturates Screen Presumptive negative 06/03/19 11:48 Ur Phencyclidine Scrn Presumptive negative 06/03/19 11:48 Ur Amphetamines Screen Presumptive negative 06/03/19 11:48 U Benzodiazepines Scrn Presumptive negative 06/03/19 11:48 Urine Cocaine Screen Presumptive negative 06/03/19 11:48 U Marijuana (THC) Screen Presumptive negative 06/03/19 11:48 Drugs of Abuse Note Disclamer 06/03/19 11:48 Plasma/Serum Alcohol < 0.01 % (0-0.07) 06/03/19 11:51 Coronavirus (PCR) Negative (Negative) 06/18/19 16:35 Hepatitis A IgM Ab Non-reactive (NonReactive) 06/04/19 08:19 Hep Bs Antigen Non-reactive (Negative) 06/04/19 08:19 Hep B Core IgM Ab Non-reactive (NonReactive) 06/04/19 08:19 Hepatitis C Antibody Non-reactive (NonReactive) 06/04/19 08:19 Influenza A (Rapid) Negative (Negative) 06/03/19 Unknown Influenza B (Rapid) Negative (Negative) 06/03/19 Unknown Miscellaneous Test See scanned result 06/05/19 Unknown Alves/IV: Voiding Method External Female Catheter IV Catheter Type [Left Wrist] INT / Saline Lock IV Catheter Type [Right Hand] INT / Saline Lock IV Catheter Type [Left Hand] INT / Saline Lock IV Catheter Type [Right INT / Saline Lock Antecubital] IV Catheter Type [Left Peripheral IV Antecubital] Active Medications - Current Medications Current Medications: Generic Name Dose Route Start Last Admin Trade Name Freq PRN Reason Stop Dose Admin Albuterol 2 puff 06/15/19 12:24 Proair IH Q4HRT PRN Shortness Of Breath Amlodipine Besylate 5 mg 06/13/19 14:00 06/20/19 09:27 Amlodipine PO 5 mg QDAY JOSE ROBERTO Administration Lipase/Protease/Amylase 1 each 06/05/19 09:[address] 10,500 Unit FEEDTUBE PRN PRN For Clogged Feeding Tube Dextrose 50 ml 06/03/19 13:57 D50w (25gm) Syringe IV Q30MIN PRN Hypoglycemia Protocol Famotidine 20 mg 06/06/19 10:00 06/20/19 09:27 Pepcid PO 20 mg BID JOSE ROBERTO Administration Heparin Sodium (Porcine) 5,000 unit 06/03/19 14:15 06/20/19 09:26 Heparin SUB-Q 5,000 unit Q12HR JOSE ROBERTO Administration Hydralazine HCl 10 mg 06/07/19 08:42 06/17/19 02:25 Apresoline IV 10 mg Q4HR PRN Administration Hypertension Hydrophilic Ointment 1 applic 06/03/19 11:02 Vaseline Lip Therapy TP Q2HR PRN Dry Lips Insulin Glargine 25 units 06/20/19 22:00 Lantus SUB-Q QHS JOSE ROBERTO Insulin Human Regular 0 units 06/16/19 18:00 06/20/19 06:29 Humulin R SUB-Q 4 units Q6H JOSE ROBERTO Administration Protocol Losartan Potassium 50 mg 06/07/19 10:00 06/20/19 09:27 Cozaar PO 50 mg QDAY JOSE ROBERTO Administration Multi-Ingred Cream/Lotion/Oil/Oint 1 applic 06/03/19 11:02 Artificial Tears Ophth Oint OU Q4HR PRN Dry Eye(s) Quetiapine Fumarate 25 mg 06/18/19 22:00 06/19/19 21:27 Seroquel PO 25 mg QHS JOSE ROBERTO Administration Senna 8.6 mg 06/03/19 22:00 06/20/19 09:26 Senokot PO 8.6 mg BID JOSE ROBERTO Administration Simple Syrup 15 ml 06/05/19 09:59 Simple Syrup FEEDTUBE PRN PRN Hypoglycemia Simple Syrup 30 ml 06/05/19 09:59 Simple Syrup FEEDTUBE PRN PRN Hypoglycemia Sodium Bicarbonate 325 mg 06/05/19 09:59 Sodium Bicarbonate FEEDTUBE PRN PRN For Clogged Feeding Tube Sodium Chloride 10 ml 06/03/19 22:00 06/20/19 09:27 Sodium Chloride Flush Syringe 10 Ml IV 10 ml BID JOSE ROBERTO Administration Sodium Chloride 10 ml 06/03/19 13:57 Sodium Chloride Flush Syringe 10 Ml IV PRN PRN LINE FLUSH Nutrition/Malnutrition Assess - Dietary Evaluation Nutrition/Malnutrition Findings: Nutrition Notes Start: 06/04/19 08:30 Freq: Status: Active Protocol: Document 06/18/19 14:13 LM (Rec: 06/18/19 14:16 LM [id number]) Nutrition Notes Initial or Follow up Reassessment Current Diagnosis Diabetes,Sepsis,Hypertension, Respiratory Failure, Hyperlipidemia Other Pertinent Diagnosis COVID-19 positive, Pneu, metabolic encephalopathy Current Diet Glucerna 1.2 at 60ml/hr Labs/Tests POC glu 299 Pertinent Medications Humulin Height 5 ft 6 in Weight 81.1 kg [place] Body Weight (kg) 59.09 BMI 28.8 Weight Status Overweight Subjective/Other Information Per RN pt tolerating TF at goal. Percent of energy/protein needs met: 98%/100% Burn Absent Trauma Absent Current % PO Negligible Minimum of two criteria No Fluid Accumulation Mild (non-severe) #1 Nutrition Diagnosis Inadequate oral intake Diagnosis Progress(for reassessment Continues documentation) Is patient on ventilator? No Is Patient Ambulatory and/or Out of Bed No REE-([facility]-confined to bed) [phone] Calculation Used for Recommendations [facility] Additional Notes Protein: 65-81g (0.8-1g/kg) Fluid: 1ml/kcal Nutrition Intervention Change Diet Order: TF Nutrition Support: Glucerna 1.2 at 60ml/hr Flush 100 ml q4h Kcal 1,728 Protein (gm) 86 Fluid (mL) 1,159 Goal #1 TF tolerance Goal #2 Meet at least 80% of energy and protein needs Anticipated Discharge Needs: unable to determine at this time Follow-Up By: 06/24/19 Additional Comments F/U for TF tolerance
--- NOTE | 2019-06-20 16:10 | Progress Note ---
Assessment and Plan Acute hypoxemic respiratory failure on MVS Bilateral pneumonia, possible aspiration. COVID-19 positive Diabetic ketoacidosis. Severe metabolic acidosis. Severe sepsis with acute encephalopathy and hypothermia. Acute toxic metabolic encephalopathy. Leukocytosis. Hemoconcentration. Elevated serum D-dimer. Acute kidney injury. Elevated serum transaminase. - advance diet per [employer] - continue awake proning stressed - continue HFNC - continue to avoid BIPAP for now - use MDI's over nebulizers - continue airborne, contact and droplet isolation - continue to wean supplemental oxygen for target O2 sat's > 90% acutely - continue accuchecks resumed with glycemic control per Lantus and SSI (While critically ill target blood glucose of 140-180 mg/dL; avoid hypoglycemia) - continue aspiration precautions - continue bronchodilators with pulmonary hygiene per RT - wean per pulmonary driven protocols otherwise - continue to avoid nephrotoxins, adjust all medications fro CrCL and GFR - continue to avoid benzodiazepine's; reduce the possibility of delirium - complete antiinfectives per ID rec's - prn analgesia per pain score - Maintenance of sleep-wake cycle, avoid delirium - enteral nutritional support at goal rate as tolerated - G.I. & VTE prophylaxis withy heparin and Famotidine - PT/OT/ROM exercises - continue mobility protocols for pressure ulcer prophylaxis - Monitor hemodynamics closely - continue other care per attending / other consultants - Influenza and pneumonia vaccinations addressed per protocol - continue other care per attending / other consultants .... Re-evaluate in am & prn CONDITION: CRITICAL PROGNOSIS: GUARDED CODE STATUS: FULL CODE The high probability of a clinically significant, sudden or life-threatening deterioration of the [respiratory, cardiovascular, endocrine, renal & neurologic] system(s) required my full and direct attention, intervention and personal management. The aggregate critical care time was [34] minutes without overlap. Time includes spent on; [x] Data Review and interpretation [x] Patient assessment and monitoring of vital signs [x] Documentation [x] Medication orders and management Subjective Date of service: 06/20/19 Principal diagnosis: Ac hypoxemic resp failure; Bob. PNA; PUI CVOVID-19; DKA; Se miguel sepsis Interval history: Patient is seen today for: Ac hypoxemic resp failure; Bob. pneumonia; PUI COVID- 19; DKA; Severe sepsis Seen and examined at bedside; 24hour events reviewed; nursing and respiratory care staff consulted; no adverse overnight events reported to me; resting peacefully in bed; remains on HFNC but FiO2 down to 60%; sounds stronger; denies acute chest pains and palpitations; moving all extremities now and stronger. Objective Vital Signs - 12hr 06/20/19 06/20/19 06/20/19 05:01 06:01 07:01 Temperature Pulse Rate 88 88 88 Pulse Rate [ From Monitor] Respiratory 23 17 16 Rate Blood Pressure 151/96 O2 Sat by Pulse 99 99 98 Oximetry 06/20/19 06/20/19 06/20/19 08:00 08:13 09:00 Temperature 97.6 F Pulse Rate 89 86 Pulse Rate [ 92 H From Monitor] Respiratory 22 16 Rate Blood Pressure 154/99 O2 Sat by Pulse 98 97 99 Oximetry 06/20/19 06/20/19 06/20/19 09:27 10:01 11:01 Temperature Pulse Rate 89 83 81 Pulse Rate [ From Monitor] Respiratory 21 18 Rate Blood Pressure 154/99 O2 Sat by Pulse 98 99 Oximetry 06/20/19 06/20/19 06/20/19 12:00 13:01 13:18 Temperature 97.8 F Pulse Rate 85 85 Pulse Rate [ 92 H From Monitor] Respiratory 23 23 Rate Blood Pressure 140/85 O2 Sat by Pulse 98 98 98 Oximetry 06/20/19 06/20/19 06/20/19 14:01 15:01 16:00 Temperature Pulse Rate 87 84 85 Pulse Rate [ From Monitor] Respiratory 18 18 26 H Rate Blood Pressure 141/90 O2 Sat by Pulse 99 99 99 Oximetry Constitutional: no acute distress, other (middle aged AAF, normocephalic with mildly increased respiratory effort at rest) Eyes: non-icteric ENT: oropharynx moist, other (NGT) Neck: supple, no lymphadenopathy, no JVD Effort: mildly labored Ascultation: Bilateral: diminished breath sounds, rales (base) Percussion: Bilateral: not dull Cardiovascular: irregular rhythm, other (S1,S2, no murmurs) Gastrointestinal: normoactive bowel sounds, soft, non-tender, non-distended Integumentary: normal Extremities: no cyanosis, no edema, pulses normal, no ischemia or petechiae Neurologic: normal mental status, non-focal exam, pupils equal and round, motor strength normal and (weak but improving) Psychiatric: mood appropriate, affect normal CBC and BMP: 06/20/19 04:50 06/20/19 04:50 ABG, PT/INR, D-dimer: ABG ABG pH 7.488 pH Units (7.350-7.450) H 06/14/19 16:35 ABG pCO2 40.7 mm Hg 06/14/19 16:35 ABG pO2 66.1 mm Hg (80.0-90.0) L 06/14/19 16:35 ABG O2 Saturation 94.7 % (95.0-99.0) L 06/14/19 16:35 PT/INR, D-dimer D-Dimer 836.6 ng/mlDDU (0-234) H 06/15/19 04:00 Abnormal lab findings: Abnormal Labs 06/03/19 06/03/19 06/03/19 10:59 11:15 11:48 WBC RBC Hgb Hct MCH RDW Plt Count Lymph % (Auto) Seg Neutrophils % Seg Neuts % (Manual) Lymphocytes % (Manual) Monocytes % (Manual) Seg Neutrophils # Seg Neutrophils # Man Lymphocytes # (Manual) Monocytes # (Manual) D-Dimer ABG pH ABG pO2 ABG HCO3 ABG O2 Saturation ABG Base Excess ABG Hemoglobin VBG pH Oxyhemoglobin Sodium Potassium Chloride Carbon Dioxide BUN Creatinine Glucose POC Glucose 372 H Hemoglobin A1c Lactic Acid Calcium Phosphorus 11.70 H Magnesium 4.40 H Ferritin AST ALT Alkaline Phosphatase Lactate Dehydrogenase C-Reactive Protein Total Protein Albumin Triglycerides Cholesterol Urine Creatinine 37.4 H Urine Microalbumin 65.1 H Vancomycin Trough Salicylates Acetaminophen 06/03/19 06/03/19 06/03/19 11:51 11:51 11:51 WBC 23.3 H RBC 6.43 H Hgb 17.7 H Hct 59.9 H* MCH RDW 17.1 H Plt Count Lymph % (Auto) Seg Neutrophils % Seg Neuts % (Manual) 71.0 H Lymphocytes % (Manual) 11.0 L Monocytes % (Manual) 8.0 H Seg Neutrophils # Seg Neutrophils # Man 16.5 H Lymphocytes # (Manual) Monocytes # (Manual) 1.9 H D-Dimer ABG pH ABG pO2 ABG HCO3 ABG O2 Saturation ABG Base Excess ABG Hemoglobin VBG pH Oxyhemoglobin Sodium Potassium Chloride Carbon Dioxide 4 L* BUN 41 H Creatinine 1.8 H Glucose 636 H* POC Glucose Hemoglobin A1c Lactic Acid 3.20 H* Calcium 10.9 H Phosphorus Magnesium Ferritin AST 43 H ALT Alkaline Phosphatase 147 H Lactate Dehydrogenase 673 H C-Reactive Protein 14.70 H Total Protein 8.9 H Albumin Triglycerides Cholesterol Urine Creatinine Urine Microalbumin Vancomycin Trough Salicylates Acetaminophen 06/03/19 06/03/19 06/03/19 11:51 11:51 11:51 WBC RBC Hgb Hct MCH RDW Plt Count Lymph % (Auto) Seg Neutrophils % Seg Neuts % (Manual) Lymphocytes % (Manual) Monocytes % (Manual) Seg Neutrophils # Seg Neutrophils # Man Lymphocytes # (Manual) Monocytes # (Manual) D-Dimer ABG pH ABG pO2 ABG HCO3 ABG O2 Saturation ABG Base Excess ABG Hemoglobin VBG pH 6.901 L* Oxyhemoglobin Sodium Potassium Chloride Carbon Dioxide BUN Creatinine Glucose POC Glucose Hemoglobin A1c Lactic Acid Calcium Phosphorus Magnesium Ferritin AST ALT Alkaline Phosphatase Lactate Dehydrogenase C-Reactive Protein Total Protein Albumin Triglycerides Cholesterol Urine Creatinine Urine Microalbumin Vancomycin Trough Salicylates < 0.3 L Acetaminophen < 5.0 L 06/03/19 06/03/19 06/03/19 11:51 11:51 12:34 WBC RBC Hgb Hct MCH RDW Plt Count Lymph % (Auto) Seg Neutrophils % Seg Neuts % (Manual) Lymphocytes % (Manual) Monocytes % (Manual) Seg Neutrophils # Seg Neutrophils # Man Lymphocytes # (Manual) Monocytes # (Manual) D-Dimer 4311.60 H ABG pH ABG pO2 ABG HCO3 ABG O2 Saturation ABG Base Excess ABG Hemoglobin VBG pH Oxyhemoglobin Sodium Potassium Chloride Carbon Dioxide BUN Creatinine Glucose POC Glucose Hemoglobin A1c Lactic Acid 5.20 H* Calcium Phosphorus Magnesium Ferritin 1037.0 H AST ALT Alkaline Phosphatase Lactate Dehydrogenase C-Reactive Protein Total Protein Albumin Triglycerides Cholesterol Urine Creatinine Urine Microalbumin Vancomycin Trough Salicylates Acetaminophen 06/03/19 06/03/19 06/03/19 14:30 16:03 17:00 WBC RBC Hgb Hct MCH RDW Plt Count Lymph % (Auto) Seg Neutrophils % Seg Neuts % (Manual) Lymphocytes % (Manual) Monocytes % (Manual) Seg Neutrophils # Seg Neutrophils # Man Lymphocytes # (Manual) Monocytes # (Manual) D-Dimer ABG pH 6.880 L* ABG pO2 489.9 H ABG HCO3 7.1 L ABG O2 Saturation 99.6 H ABG Base Excess -26.1 L ABG Hemoglobin 16.2 H VBG pH Oxyhemoglobin Sodium Potassium Chloride Carbon Dioxide BUN Creatinine Glucose POC Glucose 335 H Hemoglobin A1c 9.6 H Lactic Acid Calcium Phosphorus Magnesium Ferritin AST ALT Alkaline Phosphatase Lactate Dehydrogenase C-Reactive Protein Total Protein Albumin Triglycerides Cholesterol Urine Creatinine Urine Microalbumin Vancomycin Trough Salicylates Acetaminophen 06/03/19 06/03/19 06/03/19 18:14 18:24 19:00 WBC RBC Hgb Hct MCH RDW Plt Count Lymph % (Auto) Seg Neutrophils % Seg Neuts % (Manual) Lymphocytes % (Manual) Monocytes % (Manual) Seg Neutrophils # Seg Neutrophils # Man Lymphocytes # (Manual) Monocytes # (Manual) D-Dimer ABG pH 7.057 L* ABG pO2 97.2 H ABG HCO3 5.5 L ABG O2 Saturation ABG Base Excess -23.0 L ABG Hemoglobin 18.1 H VBG pH Oxyhemoglobin 94.4 L Sodium Potassium Chloride Carbon Dioxide BUN Creatinine Glucose POC Glucose 285 H Hemoglobin A1c Lactic Acid 3.40 H* Calcium Phosphorus Magnesium Ferritin AST ALT Alkaline Phosphatase Lactate Dehydrogenase C-Reactive Protein Total Protein Albumin Triglycerides Cholesterol Urine Creatinine Urine Microalbumin Vancomycin Trough Salicylates Acetaminophen 06/03/19 06/03/19 06/03/19 19:00 19:00 19:52 WBC RBC Hgb Hct MCH RDW Plt Count Lymph % (Auto) Seg Neutrophils % Seg Neuts % (Manual) Lymphocytes % (Manual) Monocytes % (Manual) Seg Neutrophils # Seg Neutrophils # Man Lymphocytes # (Manual) Monocytes # (Manual) D-Dimer ABG pH ABG pO2 ABG HCO3 ABG O2 Saturation ABG Base Excess ABG Hemoglobin VBG pH Oxyhemoglobin Sodium 151 H Potassium Chloride 120.8 H Carbon Dioxide 6 L* BUN 33 H Creatinine 1.4 H Glucose 339 H POC Glucose 316 H Hemoglobin A1c Lactic Acid Calcium Phosphorus Magnesium Ferritin AST 47 H ALT Alkaline Phosphatase 130 H Lactate Dehydrogenase C-Reactive Protein Total Protein Albumin 3.7 L Triglycerides 424 H Cholesterol 250 H Urine Creatinine Urine Microalbumin Vancomycin Trough Salicylates Acetaminophen 06/03/19 06/03/19 06/03/19 20:21 20:21 21:01 WBC RBC Hgb Hct MCH RDW Plt Count Lymph % (Auto) Seg Neutrophils % Seg Neuts % (Manual) Lymphocytes % (Manual) Monocytes % (Manual) Seg Neutrophils # Seg Neutrophils # Man Lymphocytes # (Manual) Monocytes # (Manual) D-Dimer ABG pH ABG pO2 ABG HCO3 ABG O2 Saturation ABG Base Excess ABG Hemoglobin VBG pH Oxyhemoglobin Sodium 153 H Potassium Chloride 121.8 H Carbon Dioxide 6 L* BUN 34 H Creatinine 1.3 H Glucose 324 H POC Glucose 245 H Hemoglobin A1c Lactic Acid 3.10 H* Calcium Phosphorus Magnesium Ferritin AST ALT Alkaline Phosphatase Lactate Dehydrogenase C-Reactive Protein Total Protein Albumin Triglycerides Cholesterol Urine Creatinine Urine Microalbumin Vancomycin Trough Salicylates Acetaminophen 06/03/19 06/03/19 06/03/19 21:25 21:32 22:42 WBC RBC Hgb Hct MCH RDW Plt Count Lymph % (Auto) Seg Neutrophils % Seg Neuts % (Manual) Lymphocytes % (Manual) Monocytes % (Manual) Seg Neutrophils # Seg Neutrophils # Man Lymphocytes # (Manual) Monocytes # (Manual) D-Dimer ABG pH 7.172 L* ABG pO2 107.2 H ABG HCO3 5.2 L ABG O2 Saturation ABG Base Excess -20.5 L ABG Hemoglobin 17.3 H VBG pH Oxyhemoglobin Sodium 155 H Potassium 2.6 L* D Chloride 130.1 H Carbon Dioxide 5 L* BUN 24 H Creatinine Glucose 212 H POC Glucose 225 H Hemoglobin A1c Lactic Acid Calcium 5.8 L* D Phosphorus Magnesium Ferritin AST ALT Alkaline Phosphatase Lactate Dehydrogenase C-Reactive Protein Total Protein Albumin Triglycerides Cholesterol Urine Creatinine Urine Microalbumin Vancomycin Trough Salicylates Acetaminophen 06/03/19 06/04/19 06/04/19 23:32 00:04 01:25 WBC RBC Hgb Hct MCH RDW Plt Count Lymph % (Auto) Seg Neutrophils % Seg Neuts % (Manual) Lymphocytes % (Manual) Monocytes % (Manual) Seg Neutrophils # Seg Neutrophils # Man Lymphocytes # (Manual) Monocytes # (Manual) D-Dimer ABG pH ABG pO2 ABG HCO3 ABG O2 Saturation ABG Base Excess ABG Hemoglobin VBG pH Oxyhemoglobin Sodium 151 H 151 H Potassium 1.5 L* D Chloride 139.0 H 124.7 H Carbon Dioxide 3 L* 9 L* BUN 31 H Creatinine 0.2 L D Glucose 117 H 241 H POC Glucose 231 H Hemoglobin A1c Lactic Acid Calcium 3.1 L* D Phosphorus Magnesium Ferritin AST ALT Alkaline Phosphatase Lactate Dehydrogenase C-Reactive Protein Total Protein Albumin Triglycerides Cholesterol Urine Creatinine Urine Microalbumin Vancomycin Trough Salicylates Acetaminophen 06/04/19 06/04/19 06/04/19 01:34 02:45 03:21 WBC RBC Hgb Hct MCH RDW Plt Count Lymph % (Auto) Seg Neutrophils % Seg Neuts % (Manual) Lymphocytes % (Manual) Monocytes % (Manual) Seg Neutrophils # Seg Neutrophils # Man Lymphocytes # (Manual) Monocytes # (Manual) D-Dimer ABG pH ABG pO2 ABG HCO3 ABG O2 Saturation ABG Base Excess ABG Hemoglobin VBG pH Oxyhemoglobin Sodium Potassium Chloride Carbon Dioxide BUN Creatinine Glucose POC Glucose 194 H 189 H 183 H Hemoglobin A1c Lactic Acid Calcium Phosphorus Magnesium Ferritin AST ALT Alkaline Phosphatase Lactate Dehydrogenase C-Reactive Protein Total Protein Albumin Triglycerides Cholesterol Urine Creatinine Urine Microalbumin Vancomycin Trough Salicylates Acetaminophen 06/04/19 06/04/19 06/04/19 04:50 05:07 06:27 WBC RBC Hgb Hct MCH RDW Plt Count Lymph % (Auto) Seg Neutrophils % Seg Neuts % (Manual) Lymphocytes % (Manual) Monocytes % (Manual) Seg Neutrophils # Seg Neutrophils # Man Lymphocytes # (Manual) Monocytes # (Manual) D-Dimer ABG pH ABG pO2 76.5 L ABG HCO3 12.9 L ABG O2 Saturation ABG Base Excess -9.0 L ABG Hemoglobin VBG pH Oxyhemoglobin Sodium Potassium Chloride Carbon Dioxide BUN Creatinine Glucose POC Glucose 200 H 164 H Hemoglobin A1c Lactic Acid Calcium Phosphorus Magnesium Ferritin AST ALT Alkaline Phosphatase Lactate Dehydrogenase C-Reactive Protein Total Protein Albumin Triglycerides Cholesterol Urine Creatinine Urine Microalbumin Vancomycin Trough Salicylates Acetaminophen 06/04/19 06/04/19 06/04/19 07:00 07:00 07:00 WBC 13.4 H RBC 5.54 H Hgb 15.3 H Hct 46.1 H D MCH RDW Plt Count Lymph % (Auto) Seg Neutrophils % Seg Neuts % (Manual) 72.0 H Lymphocytes % (Manual) 6.0 L Monocytes % (Manual) Seg Neutrophils # Seg Neutrophils # Man 9.6 H Lymphocytes # (Manual) 0.8 L Monocytes # (Manual) D-Dimer ABG pH ABG pO2 ABG HCO3 ABG O2 Saturation ABG Base Excess ABG Hemoglobin VBG pH Oxyhemoglobin Sodium 158 H 156 H Potassium 2.7 L* D 2.6 L* Chloride 124.3 H 123.5 H Carbon Dioxide 11 L 11 L BUN 25 H 26 H Creatinine Glucose 192 H 190 H POC Glucose Hemoglobin A1c Lactic Acid Calcium Phosphorus Magnesium Ferritin AST 43 H ALT Alkaline Phosphatase Lactate Dehydrogenase 590 H C-Reactive Protein 22.70 H Total Protein Albumin 2.9 L Triglycerides Cholesterol Urine Creatinine Urine Microalbumin Vancomycin Trough Salicylates Acetaminophen 06/04/19 06/04/19 06/04/19 07:00 07:00 07:14 WBC RBC Hgb Hct MCH RDW Plt Count Lymph % (Auto) Seg Neutrophils % Seg Neuts % (Manual) Lymphocytes % (Manual) Monocytes % (Manual) Seg Neutrophils # Seg Neutrophils # Man Lymphocytes # (Manual) Monocytes # (Manual) D-Dimer 2050.33 H ABG pH ABG pO2 ABG HCO3 ABG O2 Saturation ABG Base Excess ABG Hemoglobin VBG pH Oxyhemoglobin Sodium Potassium Chloride Carbon Dioxide BUN Creatinine Glucose POC Glucose 176 H Hemoglobin A1c Lactic Acid Calcium Phosphorus Magnesium Ferritin 941.3 H AST ALT Alkaline Phosphatase Lactate Dehydrogenase C-Reactive Protein Total Protein Albumin Triglycerides Cholesterol Urine Creatinine Urine Microalbumin Vancomycin Trough Salicylates Acetaminophen 06/04/19 06/04/19 06/04/19 09:55 11:38 12:19 WBC RBC Hgb Hct MCH RDW Plt Count Lymph % (Auto) Seg Neutrophils % Seg Neuts % (Manual) Lymphocytes % (Manual) Monocytes % (Manual) Seg Neutrophils # Seg Neutrophils # Man Lymphocytes # (Manual) Monocytes # (Manual) D-Dimer ABG pH ABG pO2 ABG HCO3 ABG O2 Saturation ABG Base Excess ABG Hemoglobin VBG pH Oxyhemoglobin Sodium Potassium Chloride Carbon Dioxide BUN Creatinine Glucose POC Glucose 184 H 145 H 144 H Hemoglobin A1c Lactic Acid Calcium Phosphorus Magnesium Ferritin AST ALT Alkaline Phosphatase Lactate Dehydrogenase C-Reactive Protein Total Protein Albumin Triglycerides Cholesterol Urine Creatinine Urine Microalbumin Vancomycin Trough Salicylates Acetaminophen 06/04/19 06/04/19 06/04/19 13:35 14:29 15:06 WBC RBC Hgb Hct MCH RDW Plt Count Lymph % (Auto) Seg Neutrophils % Seg Neuts % (Manual) Lymphocytes % (Manual) Monocytes % (Manual) Seg Neutrophils # Seg Neutrophils # Man Lymphocytes # (Manual) Monocytes # (Manual) D-Dimer ABG pH ABG pO2 ABG HCO3 ABG O2 Saturation ABG Base Excess ABG Hemoglobin VBG pH Oxyhemoglobin Sodium 157 H Potassium 2.4 L* Chloride 121.4 H Carbon Dioxide 20 L D BUN 21 H Creatinine Glucose 176 H POC Glucose 151 H 142 H Hemoglobin A1c Lactic Acid Calcium Phosphorus Magnesium Ferritin AST ALT Alkaline Phosphatase Lactate Dehydrogenase C-Reactive Protein Total Protein Albumin Triglycerides Cholesterol Urine Creatinine Urine Microalbumin Vancomycin Trough Salicylates Acetaminophen 06/04/19 06/04/19 06/04/19 17:14 17:51 21:45 WBC RBC Hgb Hct MCH RDW Plt Count Lymph % (Auto) Seg Neutrophils % Seg Neuts % (Manual) Lymphocytes % (Manual) Monocytes % (Manual) Seg Neutrophils # Seg Neutrophils # Man Lymphocytes # (Manual) Monocytes # (Manual) D-Dimer ABG pH ABG pO2 ABG HCO3 ABG O2 Saturation ABG Base Excess ABG Hemoglobin VBG pH Oxyhemoglobin Sodium Potassium Chloride Carbon Dioxide BUN Creatinine Glucose POC Glucose 200 H 159 H 143 H Hemoglobin A1c Lactic Acid Calcium Phosphorus Magnesium Ferritin AST ALT Alkaline Phosphatase Lactate Dehydrogenase C-Reactive Protein Total Protein Albumin Triglycerides Cholesterol Urine Creatinine Urine Microalbumin Vancomycin Trough Salicylates Acetaminophen 06/04/19 06/04/19 06/04/19 22:20 22:21 23:27 WBC RBC Hgb Hct MCH RDW Plt Count Lymph % (Auto) Seg Neutrophils % Seg Neuts % (Manual) Lymphocytes % (Manual) Monocytes % (Manual) Seg Neutrophils # Seg Neutrophils # Man Lymphocytes # (Manual) Monocytes # (Manual) D-Dimer ABG pH 7.572 H ABG pO2 58.5 L ABG HCO3 ABG O2 Saturation ABG Base Excess 3.5 H ABG Hemoglobin 20.0 H VBG pH Oxyhemoglobin 94.6 L Sodium Potassium Chloride Carbon Dioxide BUN Creatinine Glucose POC Glucose 154 H 147 H Hemoglobin A1c Lactic Acid Calcium Phosphorus Magnesium Ferritin AST ALT Alkaline Phosphatase Lactate Dehydrogenase C-Reactive Protein Total Protein Albumin Triglycerides Cholesterol Urine Creatinine Urine Microalbumin Vancomycin Trough Salicylates Acetaminophen 06/05/19 06/05/19 06/05/19 00:27 01:16 02:20 WBC RBC Hgb Hct MCH RDW Plt Count Lymph % (Auto) Seg Neutrophils % Seg Neuts % (Manual) Lymphocytes % (Manual) Monocytes % (Manual) Seg Neutrophils # Seg Neutrophils # Man Lymphocytes # (Manual) Monocytes # (Manual) D-Dimer ABG pH ABG pO2 ABG HCO3 ABG O2 Saturation ABG Base Excess ABG Hemoglobin VBG pH Oxyhemoglobin Sodium Potassium Chloride Carbon Dioxide BUN Creatinine Glucose POC Glucose 124 H 126 H 156 H Hemoglobin A1c Lactic Acid Calcium Phosphorus Magnesium Ferritin AST ALT Alkaline Phosphatase Lactate Dehydrogenase C-Reactive Protein Total Protein Albumin Triglycerides Cholesterol Urine Creatinine Urine Microalbumin Vancomycin Trough Salicylates Acetaminophen 06/05/19 06/05/19 06/05/19 03:44 03:59 04:52 WBC RBC Hgb Hct MCH RDW Plt Count Lymph % (Auto) Seg Neutrophils % Seg Neuts % (Manual) Lymphocytes % (Manual) Monocytes % (Manual) Seg Neutrophils # Seg Neutrophils # Man Lymphocytes # (Manual) Monocytes # (Manual) D-Dimer ABG pH ABG pO2 ABG HCO3 ABG O2 Saturation ABG Base Excess ABG Hemoglobin VBG pH Oxyhemoglobin Sodium 155 H Potassium 3.0 L D Chloride 114.7 H Carbon Dioxide BUN Creatinine 0.6 L Glucose 136 H POC Glucose 143 H 141 H Hemoglobin A1c Lactic Acid Calcium Phosphorus Magnesium Ferritin AST ALT Alkaline Phosphatase Lactate Dehydrogenase C-Reactive Protein Total Protein Albumin Triglycerides Cholesterol Urine Creatinine Urine Microalbumin Vancomycin Trough Salicylates Acetaminophen 06/05/19 06/05/19 06/05/19 05:00 05:54 07:01 WBC RBC Hgb Hct MCH RDW Plt Count Lymph % (Auto) Seg Neutrophils % Seg Neuts % (Manual) Lymphocytes % (Manual) Monocytes % (Manual) Seg Neutrophils # Seg Neutrophils # Man Lymphocytes # (Manual) Monocytes # (Manual) D-Dimer ABG pH 7.621 H* ABG pO2 54.3 L ABG HCO3 29.8 H ABG O2 Saturation ABG Base Excess 8.8 H ABG Hemoglobin VBG pH Oxyhemoglobin Sodium Potassium Chloride Carbon Dioxide BUN Creatinine Glucose POC Glucose 155 H 145 H Hemoglobin A1c Lactic Acid Calcium Phosphorus Magnesium Ferritin AST ALT Alkaline Phosphatase Lactate Dehydrogenase C-Reactive Protein Total Protein Albumin Triglycerides Cholesterol Urine Creatinine Urine Microalbumin Vancomycin Trough Salicylates Acetaminophen 06/05/19 06/05/19 06/05/19 12:13 18:23 21:00 WBC RBC Hgb Hct MCH RDW Plt Count Lymph % (Auto) Seg Neutrophils % Seg Neuts % (Manual) Lymphocytes % (Manual) Monocytes % (Manual) Seg Neutrophils # Seg Neutrophils # Man Lymphocytes # (Manual) Monocytes # (Manual) D-Dimer ABG pH ABG pO2 ABG HCO3 ABG O2 Saturation ABG Base Excess ABG Hemoglobin VBG pH Oxyhemoglobin Sodium Potassium Chloride Carbon Dioxide BUN Creatinine Glucose POC Glucose 202 H 257 H Hemoglobin A1c Lactic Acid Calcium Phosphorus Magnesium Ferritin AST ALT Alkaline Phosphatase Lactate Dehydrogenase C-Reactive Protein Total Protein Albumin Triglycerides Cholesterol Urine Creatinine Urine Microalbumin Vancomycin Trough 4.2 L Salicylates Acetaminophen 06/05/19 06/06/19 06/06/19 23:55 04:16 04:37 WBC RBC Hgb Hct MCH RDW Plt Count Lymph % (Auto) Seg Neutrophils % Seg Neuts % (Manual) Lymphocytes % (Manual) Monocytes % (Manual) Seg Neutrophils # Seg Neutrophils # Man Lymphocytes # (Manual) Monocytes # (Manual) D-Dimer 1279.22 H ABG pH 7.600 H ABG pO2 62.4 L ABG HCO3 28.0 H ABG O2 Saturation ABG Base Excess 6.6 H ABG Hemoglobin 10.4 L VBG pH Oxyhemoglobin Sodium Potassium Chloride Carbon Dioxide BUN Creatinine Glucose POC Glucose 267 H Hemoglobin A1c Lactic Acid Calcium Phosphorus Magnesium Ferritin AST ALT Alkaline Phosphatase Lactate Dehydrogenase C-Reactive Protein Total Protein Albumin Triglycerides Cholesterol Urine Creatinine Urine Microalbumin Vancomycin Trough Salicylates Acetaminophen 06/06/19 06/06/19 06/06/19 04:37 04:37 04:37 WBC 12.2 H RBC 5.10 H Hgb Hct MCH 27 L RDW Plt Count Lymph % (Auto) Seg Neutrophils % Seg Neuts % (Manual) Lymphocytes % (Manual) Monocytes % (Manual) Seg Neutrophils # Seg Neutrophils # Man Lymphocytes # (Manual) Monocytes # (Manual) D-Dimer ABG pH ABG pO2 ABG HCO3 ABG O2 Saturation ABG Base Excess ABG Hemoglobin VBG pH Oxyhemoglobin Sodium 156 H Potassium 3.4 L Chloride 112.9 H Carbon Dioxide BUN 21 H Creatinine 0.6 L Glucose 332 H POC Glucose Hemoglobin A1c Lactic Acid Calcium Phosphorus Magnesium Ferritin 1649.0 H AST ALT Alkaline Phosphatase Lactate Dehydrogenase 578 H C-Reactive Protein 22.10 H Total Protein Albumin Triglycerides Cholesterol Urine Creatinine Urine Microalbumin Vancomycin Trough Salicylates Acetaminophen 06/06/19 06/06/19 06/06/19 05:45 11:55 12:21 WBC RBC Hgb Hct MCH RDW Plt Count Lymph % (Auto) Seg Neutrophils % Seg Neuts % (Manual) Lymphocytes % (Manual) Monocytes % (Manual) Seg Neutrophils # Seg Neutrophils # Man Lymphocytes # (Manual) Monocytes # (Manual) D-Dimer ABG pH 7.511 H ABG pO2 123.0 H ABG HCO3 29.7 H ABG O2 Saturation ABG Base Excess 6.4 H ABG Hemoglobin VBG pH Oxyhemoglobin Sodium Potassium Chloride Carbon Dioxide BUN Creatinine Glucose POC Glucose 303 H 281 H Hemoglobin A1c Lactic Acid Calcium Phosphorus Magnesium Ferritin AST ALT Alkaline Phosphatase Lactate Dehydrogenase C-Reactive Protein Total Protein Albumin Triglycerides Cholesterol Urine Creatinine Urine Microalbumin Vancomycin Trough Salicylates Acetaminophen 06/06/19 06/07/19 06/07/19 17:06 00:25 04:39 WBC RBC Hgb Hct MCH RDW Plt Count Lymph % (Auto) Seg Neutrophils % Seg Neuts % (Manual) Lymphocytes % (Manual) Monocytes % (Manual) Seg Neutrophils # Seg Neutrophils # Man Lymphocytes # (Manual) Monocytes # (Manual) D-Dimer ABG pH 7.507 H ABG pO2 46.4 L ABG HCO3 32.6 H ABG O2 Saturation 90.6 L ABG Base Excess 8.6 H ABG Hemoglobin VBG pH Oxyhemoglobin 89.2 L Sodium Potassium Chloride Carbon Dioxide BUN Creatinine Glucose POC Glucose 251 H 225 H Hemoglobin A1c Lactic Acid Calcium Phosphorus Magnesium Ferritin AST ALT Alkaline Phosphatase Lactate Dehydrogenase C-Reactive Protein Total Protein Albumin Triglycerides Cholesterol Urine Creatinine Urine Microalbumin Vancomycin Trough Salicylates Acetaminophen 06/07/19 06/07/19 06/07/19 04:43 04:43 04:43 WBC 13.6 H RBC 5.14 H Hgb Hct 43.4 H MCH 27 L RDW Plt Count Lymph % (Auto) Seg Neutrophils % Seg Neuts % (Manual) Lymphocytes % (Manual) Monocytes % (Manual) Seg Neutrophils # Seg Neutrophils # Man Lymphocytes # (Manual) Monocytes # (Manual) D-Dimer ABG pH ABG pO2 ABG HCO3 ABG O2 Saturation ABG Base Excess ABG Hemoglobin VBG pH Oxyhemoglobin Sodium 166 H* D Potassium 3.0 L Chloride 122.9 H Carbon Dioxide BUN 27 H Creatinine 0.5 L Glucose 265 H POC Glucose Hemoglobin A1c Lactic Acid Calcium Phosphorus Magnesium Ferritin AST ALT Alkaline Phosphatase Lactate Dehydrogenase C-Reactive Protein Total Protein Albumin Triglycerides 373 H Cholesterol Urine Creatinine Urine Microalbumin Vancomycin Trough Salicylates Acetaminophen 06/07/19 06/07/19 06/07/19 10:12 11:39 15:31 WBC RBC Hgb Hct MCH RDW Plt Count Lymph % (Auto) Seg Neutrophils % Seg Neuts % (Manual) Lymphocytes % (Manual) Monocytes % (Manual) Seg Neutrophils # Seg Neutrophils # Man Lymphocytes # (Manual) Monocytes # (Manual) D-Dimer ABG pH ABG pO2 ABG HCO3 ABG O2 Saturation ABG Base Excess ABG Hemoglobin VBG pH Oxyhemoglobin Sodium 163 H* 161 H* Potassium 3.1 L Chloride 117.7 H Carbon Dioxide BUN 22 H Creatinine 0.5 L Glucose 274 H POC Glucose 218 H Hemoglobin A1c Lactic Acid Calcium Phosphorus Magnesium Ferritin AST ALT Alkaline Phosphatase Lactate Dehydrogenase C-Reactive Protein Total Protein Albumin Triglycerides Cholesterol Urine Creatinine Urine Microalbumin Vancomycin Trough Salicylates Acetaminophen 06/07/19 06/08/19 06/08/19 17:16 00:04 03:45 WBC RBC Hgb Hct MCH RDW Plt Count Lymph % (Auto) Seg Neutrophils % Seg Neuts % (Manual) Lymphocytes % (Manual) Monocytes % (Manual) Seg Neutrophils # Seg Neutrophils # Man Lymphocytes # (Manual) Monocytes # (Manual) D-Dimer ABG pH 7.504 H ABG pO2 54.2 L ABG HCO3 32.3 H ABG O2 Saturation 93.7 L ABG Base Excess 8.4 H ABG Hemoglobin VBG pH Oxyhemoglobin 92.2 L Sodium Potassium Chloride Carbon Dioxide BUN Creatinine Glucose POC Glucose 284 H 283 H Hemoglobin A1c Lactic Acid Calcium Phosphorus Magnesium Ferritin AST ALT Alkaline Phosphatase Lactate Dehydrogenase C-Reactive Protein Total Protein Albumin Triglycerides Cholesterol Urine Creatinine Urine Microalbumin Vancomycin Trough Salicylates Acetaminophen 06/08/19 06/08/19 06/08/19 05:02 09:33 09:33 WBC RBC Hgb Hct MCH RDW Plt Count Lymph % (Auto) Seg Neutrophils % Seg Neuts % (Manual) Lymphocytes % (Manual) Monocytes % (Manual) Seg Neutrophils # Seg Neutrophils # Man Lymphocytes # (Manual) Monocytes # (Manual) D-Dimer 1319.18 H ABG pH ABG pO2 ABG HCO3 ABG O2 Saturation ABG Base Excess ABG Hemoglobin VBG pH Oxyhemoglobin Sodium Potassium Chloride Carbon Dioxide BUN Creatinine Glucose POC Glucose 291 H Hemoglobin A1c Lactic Acid Calcium Phosphorus Magnesium Ferritin 1274.0 H AST ALT Alkaline Phosphatase Lactate Dehydrogenase C-Reactive Protein Total Protein Albumin Triglycerides Cholesterol Urine Creatinine Urine Microalbumin Vancomycin Trough Salicylates Acetaminophen 06/08/19 06/08/19 06/08/19 09:33 09:33 17:46 WBC 16.0 H RBC Hgb Hct MCH 27 L RDW Plt Count Lymph % (Auto) Seg Neutrophils % Seg Neuts % (Manual) Lymphocytes % (Manual) Monocytes % (Manual) Seg Neutrophils # Seg Neutrophils # Man Lymphocytes # (Manual) Monocytes # (Manual) D-Dimer ABG pH ABG pO2 ABG HCO3 ABG O2 Saturation ABG Base Excess ABG Hemoglobin VBG pH Oxyhemoglobin Sodium 157 H Potassium 3.1 L Chloride 116.7 H Carbon Dioxide BUN 24 H Creatinine 0.5 L Glucose 351 H POC Glucose 309 H Hemoglobin A1c Lactic Acid Calcium Phosphorus 2.20 L Magnesium 2.60 H Ferritin AST ALT Alkaline Phosphatase 131 H Lactate Dehydrogenase 449 H C-Reactive Protein 9.70 H Total Protein 6.1 L Albumin 2.1 L Triglycerides Cholesterol Urine Creatinine Urine Microalbumin Vancomycin Trough Salicylates Acetaminophen 06/08/19 06/08/19 06/09/19 21:55 23:46 04:18 WBC RBC Hgb Hct MCH RDW Plt Count Lymph % (Auto) Seg Neutrophils % Seg Neuts % (Manual) Lymphocytes % (Manual) Monocytes % (Manual) Seg Neutrophils # Seg Neutrophils # Man Lymphocytes # (Manual) Monocytes # (Manual) D-Dimer ABG pH 7.480 H ABG pO2 70.9 L ABG HCO3 32.9 H ABG O2 Saturation ABG Base Excess 8.4 H ABG Hemoglobin 10.3 L VBG pH Oxyhemoglobin 94.8 L Sodium 151 H Potassium 3.3 L Chloride 112.7 H Carbon Dioxide 31 H BUN 24 H Creatinine 0.5 L Glucose 321 H POC Glucose 331 H Hemoglobin A1c Lactic Acid Calcium Phosphorus Magnesium Ferritin AST ALT Alkaline Phosphatase Lactate Dehydrogenase C-Reactive Protein Total Protein Albumin Triglycerides Cholesterol Urine Creatinine Urine Microalbumin Vancomycin Trough Salicylates Acetaminophen 06/09/19 06/09/19 06/09/19 05:35 07:34 07:34 WBC 14.2 H RBC Hgb Hct MCH 27 L RDW Plt Count Lymph % (Auto) Seg Neutrophils % Seg Neuts % (Manual) Lymphocytes % (Manual) Monocytes % (Manual) Seg Neutrophils # Seg Neutrophils # Man Lymphocytes # (Manual) Monocytes # (Manual) D-Dimer ABG pH ABG pO2 ABG HCO3 ABG O2 Saturation ABG Base Excess ABG Hemoglobin VBG pH Oxyhemoglobin Sodium 153 H Potassium 3.0 L Chloride 113.6 H Carbon Dioxide BUN 26 H Creatinine 0.5 L Glucose 306 H POC Glucose 264 H Hemoglobin A1c Lactic Acid Calcium Phosphorus Magnesium Ferritin AST ALT Alkaline Phosphatase Lactate Dehydrogenase 411 H C-Reactive Protein 6.00 H Total Protein Albumin Triglycerides 304 H Cholesterol Urine Creatinine Urine Microalbumin Vancomycin Trough Salicylates Acetaminophen 06/09/19 06/09/19 06/09/19 07:34 07:34 18:29 WBC RBC Hgb Hct MCH RDW Plt Count Lymph % (Auto) Seg Neutrophils % Seg Neuts % (Manual) Lymphocytes % (Manual) Monocytes % (Manual) Seg Neutrophils # Seg Neutrophils # Man Lymphocytes # (Manual) Monocytes # (Manual) D-Dimer 991.99 H ABG pH ABG pO2 ABG HCO3 ABG O2 Saturation ABG Base Excess ABG Hemoglobin VBG pH Oxyhemoglobin Sodium Potassium Chloride Carbon Dioxide BUN Creatinine Glucose POC Glucose 226 H Hemoglobin A1c Lactic Acid Calcium Phosphorus Magnesium Ferritin 1078.0 H AST ALT Alkaline Phosphatase Lactate Dehydrogenase C-Reactive Protein Total Protein Albumin Triglycerides Cholesterol Urine Creatinine Urine Microalbumin Vancomycin Trough Salicylates Acetaminophen 06/09/19 06/09/19 06/10/19 19:22 23:43 04:05 WBC RBC Hgb Hct MCH RDW Plt Count Lymph % (Auto) Seg Neutrophils % Seg Neuts % (Manual) Lymphocytes % (Manual) Monocytes % (Manual) Seg Neutrophils # Seg Neutrophils # Man Lymphocytes # (Manual) Monocytes # (Manual) D-Dimer ABG pH 7.472 H ABG pO2 63.0 L ABG HCO3 31.3 H ABG O2 Saturation 94.5 L ABG Base Excess 6.9 H ABG Hemoglobin VBG pH Oxyhemoglobin 93.0 L Sodium Potassium Chloride 110.1 H Carbon Dioxide BUN 20 H Creatinine 0.4 L Glucose 237 H POC Glucose 177 H Hemoglobin A1c Lactic Acid Calcium Phosphorus Magnesium Ferritin AST ALT Alkaline Phosphatase Lactate Dehydrogenase C-Reactive Protein Total Protein Albumin Triglycerides Cholesterol Urine Creatinine Urine Microalbumin Vancomycin Trough Salicylates Acetaminophen 06/10/19 06/10/19 06/10/19 06:28 12:30 18:08 WBC RBC Hgb Hct MCH RDW Plt Count Lymph % (Auto) Seg Neutrophils % Seg Neuts % (Manual) Lymphocytes % (Manual) Monocytes % (Manual) Seg Neutrophils # Seg Neutrophils # Man Lymphocytes # (Manual) Monocytes # (Manual) D-Dimer ABG pH ABG pO2 ABG HCO3 ABG O2 Saturation ABG Base Excess ABG Hemoglobin VBG pH Oxyhemoglobin Sodium Potassium Chloride Carbon Dioxide BUN Creatinine Glucose POC Glucose 172 H 166 H 172 H Hemoglobin A1c Lactic Acid Calcium Phosphorus Magnesium Ferritin AST ALT Alkaline Phosphatase Lactate Dehydrogenase C-Reactive Protein Total Protein Albumin Triglycerides Cholesterol Urine Creatinine Urine Microalbumin Vancomycin Trough Salicylates Acetaminophen 06/10/19 06/10/19 06/10/19 23:53 Unknown Unknown WBC 13.7 H RBC Hgb Hct MCH RDW Plt Count 84 L Lymph % (Auto) Seg Neutrophils % Seg Neuts % (Manual) Lymphocytes % (Manual) Monocytes % (Manual) Seg Neutrophils # Seg Neutrophils # Man Lymphocytes # (Manual) Monocytes # (Manual) D-Dimer ABG pH ABG pO2 ABG HCO3 ABG O2 Saturation ABG Base Excess ABG Hemoglobin VBG pH Oxyhemoglobin Sodium 148 H Potassium 3.3 L Chloride 111.5 H Carbon Dioxide BUN 20 H Creatinine 0.4 L Glucose 185 H POC Glucose 186 H Hemoglobin A1c Lactic Acid Calcium Phosphorus Magnesium Ferritin AST ALT Alkaline Phosphatase Lactate Dehydrogenase C-Reactive Protein Total Protein Albumin Triglycerides Cholesterol Urine Creatinine Urine Microalbumin Vancomycin Trough Salicylates Acetaminophen 06/11/19 06/11/19 06/11/19 04:31 04:31 04:31 WBC RBC Hgb Hct MCH RDW Plt Count Lymph % (Auto) Seg Neutrophils % Seg Neuts % (Manual) Lymphocytes % (Manual) Monocytes % (Manual) Seg Neutrophils # Seg Neutrophils # Man Lymphocytes # (Manual) Monocytes # (Manual) D-Dimer 1206.09 H ABG pH ABG pO2 ABG HCO3 ABG O2 Saturation ABG Base Excess ABG Hemoglobin VBG pH Oxyhemoglobin Sodium 146 H Potassium 3.3 L Chloride 109.4 H Carbon Dioxide BUN Creatinine 0.5 L Glucose 186 H POC Glucose Hemoglobin A1c Lactic Acid Calcium Phosphorus Magnesium Ferritin 905.9 H AST ALT Alkaline Phosphatase Lactate Dehydrogenase 417 H C-Reactive Protein 3.30 H Total Protein Albumin Triglycerides Cholesterol Urine Creatinine Urine Microalbumin Vancomycin Trough Salicylates Acetaminophen 06/11/19 06/11/19 06/11/19 04:31 05:35 11:41 WBC 17.0 H RBC Hgb Hct MCH 27 L RDW Plt Count Lymph % (Auto) Seg Neutrophils % Seg Neuts % (Manual) Lymphocytes % (Manual) Monocytes % (Manual) Seg Neutrophils # Seg Neutrophils # Man Lymphocytes # (Manual) Monocytes # (Manual) D-Dimer ABG pH ABG pO2 ABG HCO3 ABG O2 Saturation ABG Base Excess ABG Hemoglobin VBG pH Oxyhemoglobin Sodium Potassium Chloride Carbon Dioxide BUN Creatinine Glucose POC Glucose 151 H 209 H Hemoglobin A1c Lactic Acid Calcium Phosphorus Magnesium Ferritin AST ALT Alkaline Phosphatase Lactate Dehydrogenase C-Reactive Protein Total Protein Albumin Triglycerides Cholesterol Urine Creatinine Urine Microalbumin Vancomycin Trough Salicylates Acetaminophen 06/11/19 06/11/19 06/12/19 17:27 23:52 03:58 WBC 14.9 H RBC Hgb Hct MCH RDW Plt Count Lymph % (Auto) Seg Neutrophils % Seg Neuts % (Manual) 72.0 H Lymphocytes % (Manual) 13.0 L Monocytes % (Manual) 13.0 H Seg Neutrophils # Seg Neutrophils # Man 10.7 H Lymphocytes # (Manual) Monocytes # (Manual) 1.9 H D-Dimer ABG pH ABG pO2 ABG HCO3 ABG O2 Saturation ABG Base Excess ABG Hemoglobin VBG pH Oxyhemoglobin Sodium Potassium Chloride Carbon Dioxide BUN Creatinine Glucose POC Glucose 181 H 223 H Hemoglobin A1c Lactic Acid Calcium Phosphorus Magnesium Ferritin AST ALT Alkaline Phosphatase Lactate Dehydrogenase C-Reactive Protein Total Protein Albumin Triglycerides Cholesterol Urine Creatinine Urine Microalbumin Vancomycin Trough Salicylates Acetaminophen 06/12/19 06/12/19 06/12/19 03:58 04:44 10:30 WBC RBC Hgb Hct MCH RDW Plt Count Lymph % (Auto) Seg Neutrophils % Seg Neuts % (Manual) Lymphocytes % (Manual) Monocytes % (Manual) Seg Neutrophils # Seg Neutrophils # Man Lymphocytes # (Manual) Monocytes # (Manual) D-Dimer ABG pH 7.456 H ABG pO2 ABG HCO3 32.7 H ABG O2 Saturation ABG Base Excess 7.7 H ABG Hemoglobin VBG pH Oxyhemoglobin Sodium Potassium 3.4 L Chloride Carbon Dioxide BUN Creatinine 0.4 L Glucose 242 H POC Glucose 203 H Hemoglobin A1c Lactic Acid Calcium Phosphorus Magnesium Ferritin AST 103 H ALT 101 H Alkaline Phosphatase Lactate Dehydrogenase C-Reactive Protein Total Protein 5.9 L Albumin 2.3 L Triglycerides Cholesterol Urine Creatinine Urine Microalbumin Vancomycin Trough Salicylates Acetaminophen 06/12/19 06/13/19 06/13/19 12:01 00:03 02:51 WBC RBC Hgb Hct MCH RDW Plt Count Lymph % (Auto) Seg Neutrophils % Seg Neuts % (Manual) Lymphocytes % (Manual) Monocytes % (Manual) Seg Neutrophils # Seg Neutrophils # Man Lymphocytes # (Manual) Monocytes # (Manual) D-Dimer ABG pH ABG pO2 ABG HCO3 ABG O2 Saturation ABG Base Excess ABG Hemoglobin VBG pH Oxyhemoglobin Sodium Potassium Chloride Carbon Dioxide BUN Creatinine Glucose POC Glucose 178 H 127 H Hemoglobin A1c Lactic Acid Calcium Phosphorus Magnesium Ferritin AST ALT Alkaline Phosphatase Lactate Dehydrogenase 807 H C-Reactive Protein 3.40 H Total Protein Albumin Triglycerides Cholesterol Urine Creatinine Urine Microalbumin Vancomycin Trough Salicylates Acetaminophen 06/13/19 06/13/19 06/13/19 05:17 09:23 09:23 WBC RBC Hgb Hct MCH RDW Plt Count Lymph % (Auto) Seg Neutrophils % Seg Neuts % (Manual) Lymphocytes % (Manual) Monocytes % (Manual) Seg Neutrophils # Seg Neutrophils # Man Lymphocytes # (Manual) Monocytes # (Manual) D-Dimer 1401.68 H ABG pH ABG pO2 ABG HCO3 ABG O2 Saturation ABG Base Excess ABG Hemoglobin VBG pH Oxyhemoglobin Sodium Potassium Chloride Carbon Dioxide BUN Creatinine Glucose POC Glucose 161 H Hemoglobin A1c Lactic Acid Calcium Phosphorus Magnesium Ferritin 1942.0 H AST ALT Alkaline Phosphatase Lactate Dehydrogenase C-Reactive Protein Total Protein Albumin Triglycerides Cholesterol Urine Creatinine Urine Microalbumin Vancomycin Trough Salicylates Acetaminophen 06/13/19 06/13/19 06/14/19 12:03 18:17 00:03 WBC RBC Hgb Hct MCH RDW Plt Count Lymph % (Auto) Seg Neutrophils % Seg Neuts % (Manual) Lymphocytes % (Manual) Monocytes % (Manual) Seg Neutrophils # Seg Neutrophils # Man Lymphocytes # (Manual) Monocytes # (Manual) D-Dimer ABG pH ABG pO2 ABG HCO3 ABG O2 Saturation ABG Base Excess ABG Hemoglobin VBG pH Oxyhemoglobin Sodium Potassium Chloride Carbon Dioxide BUN Creatinine Glucose POC Glucose 147 H 172 H 168 H Hemoglobin A1c Lactic Acid Calcium Phosphorus Magnesium Ferritin AST ALT Alkaline Phosphatase Lactate Dehydrogenase C-Reactive Protein Total Protein Albumin Triglycerides Cholesterol Urine Creatinine Urine Microalbumin Vancomycin Trough Salicylates Acetaminophen 06/14/19 06/14/19 06/14/19 05:43 12:22 14:44 WBC 14.0 H RBC 5.86 H Hgb 16.2 H D Hct 49.3 H D MCH RDW Plt Count Lymph % (Auto) Seg Neutrophils % Seg Neuts % (Manual) 81.0 H Lymphocytes % (Manual) 10.0 L Monocytes % (Manual) Seg Neutrophils # Seg Neutrophils # Man 11.3 H Lymphocytes # (Manual) Monocytes # (Manual) 1.0 H D-Dimer ABG pH ABG pO2 ABG HCO3 ABG O2 Saturation ABG Base Excess ABG Hemoglobin VBG pH Oxyhemoglobin Sodium Potassium Chloride Carbon Dioxide BUN Creatinine Glucose POC Glucose 178 H 218 H Hemoglobin A1c Lactic Acid Calcium Phosphorus Magnesium Ferritin AST ALT Alkaline Phosphatase Lactate Dehydrogenase C-Reactive Protein Total Protein Albumin Triglycerides Cholesterol Urine Creatinine Urine Microalbumin Vancomycin Trough Salicylates Acetaminophen 06/14/19 06/14/19 06/14/19 14:44 16:35 18:01 WBC RBC Hgb Hct MCH RDW Plt Count Lymph % (Auto) Seg Neutrophils % Seg Neuts % (Manual) Lymphocytes % (Manual) Monocytes % (Manual) Seg Neutrophils # Seg Neutrophils # Man Lymphocytes # (Manual) Monocytes # (Manual) D-Dimer ABG pH 7.488 H ABG pO2 66.1 L ABG HCO3 30.2 H ABG O2 Saturation 94.7 L ABG Base Excess 6.3 H ABG Hemoglobin VBG pH Oxyhemoglobin 93.3 L Sodium Potassium 3.4 L Chloride Carbon Dioxide BUN Creatinine 0.3 L Glucose 296 H POC Glucose 215 H Hemoglobin A1c Lactic Acid Calcium Phosphorus Magnesium Ferritin AST ALT Alkaline Phosphatase Lactate Dehydrogenase C-Reactive Protein Total Protein Albumin Triglycerides Cholesterol Urine Creatinine Urine Microalbumin Vancomycin Trough Salicylates Acetaminophen 06/15/19 06/15/19 06/15/19 00:34 04:00 04:00 WBC RBC Hgb Hct MCH RDW Plt Count Lymph % (Auto) Seg Neutrophils % Seg Neuts % (Manual) Lymphocytes % (Manual) Monocytes % (Manual) Seg Neutrophils # Seg Neutrophils # Man Lymphocytes # (Manual) Monocytes # (Manual) D-Dimer 836.6 H ABG pH ABG pO2 ABG HCO3 ABG O2 Saturation ABG Base Excess ABG Hemoglobin VBG pH Oxyhemoglobin Sodium Potassium Chloride Carbon Dioxide BUN Creatinine Glucose POC Glucose 229 H Hemoglobin A1c Lactic Acid Calcium Phosphorus Magnesium Ferritin 908.8 H AST ALT Alkaline Phosphatase Lactate Dehydrogenase C-Reactive Protein Total Protein Albumin Triglycerides Cholesterol Urine Creatinine Urine Microalbumin Vancomycin Trough Salicylates Acetaminophen 06/15/19 06/15/19 06/15/19 04:00 04:00 06:24 WBC 15.6 H RBC Hgb Hct MCH 27 L RDW Plt Count Lymph % (Auto) 10.9 L Seg Neutrophils % 84.1 H Seg Neuts % (Manual) Lymphocytes % (Manual) Monocytes % (Manual) Seg Neutrophils # 13.1 H Seg Neutrophils # Man Lymphocytes # (Manual) Monocytes # (Manual) D-Dimer ABG pH ABG pO2 ABG HCO3 ABG O2 Saturation ABG Base Excess ABG Hemoglobin VBG pH Oxyhemoglobin Sodium Potassium 3.3 L Chloride Carbon Dioxide 31 H D BUN Creatinine 0.4 L Glucose 199 H POC Glucose 192 H Hemoglobin A1c Lactic Acid Calcium Phosphorus Magnesium Ferritin AST ALT Alkaline Phosphatase Lactate Dehydrogenase 386 H C-Reactive Protein 17.00 H Total Protein Albumin Triglycerides Cholesterol Urine Creatinine Urine Microalbumin Vancomycin Trough Salicylates Acetaminophen 06/15/19 06/15/19 06/15/19 12:05 17:02 21:00 WBC RBC Hgb Hct MCH RDW Plt Count Lymph % (Auto) Seg Neutrophils % Seg Neuts % (Manual) Lymphocytes % (Manual) Monocytes % (Manual) Seg Neutrophils # Seg Neutrophils # Man Lymphocytes # (Manual) Monocytes # (Manual) D-Dimer ABG pH ABG pO2 ABG HCO3 ABG O2 Saturation ABG Base Excess ABG Hemoglobin VBG pH Oxyhemoglobin Sodium Potassium Chloride Carbon Dioxide BUN Creatinine Glucose POC Glucose 271 H 239 H 211 H Hemoglobin A1c Lactic Acid Calcium Phosphorus Magnesium Ferritin AST ALT Alkaline Phosphatase Lactate Dehydrogenase C-Reactive Protein Total Protein Albumin Triglycerides Cholesterol Urine Creatinine Urine Microalbumin Vancomycin Trough Salicylates Acetaminophen 06/16/19 06/16/19 06/16/19 00:13 05:16 05:16 WBC 12.4 H RBC Hgb Hct MCH RDW Plt Count Lymph % (Auto) Seg Neutrophils % Seg Neuts % (Manual) Lymphocytes % (Manual) Monocytes % (Manual) Seg Neutrophils # Seg Neutrophils # Man Lymphocytes # (Manual) Monocytes # (Manual) D-Dimer ABG pH ABG pO2 ABG HCO3 ABG O2 Saturation ABG Base Excess ABG Hemoglobin VBG pH Oxyhemoglobin Sodium Potassium 3.4 L Chloride Carbon Dioxide BUN Creatinine 0.5 L Glucose 215 H POC Glucose 230 H Hemoglobin A1c Lactic Acid Calcium Phosphorus Magnesium Ferritin AST ALT Alkaline Phosphatase Lactate Dehydrogenase C-Reactive Protein Total Protein Albumin Triglycerides Cholesterol Urine Creatinine Urine Microalbumin Vancomycin Trough Salicylates Acetaminophen 06/16/19 06/16/19 06/16/19 08:05 12:17 16:44 WBC RBC Hgb Hct MCH RDW Plt Count Lymph % (Auto) Seg Neutrophils % Seg Neuts % (Manual) Lymphocytes % (Manual) Monocytes % (Manual) Seg Neutrophils # Seg Neutrophils # Man Lymphocytes # (Manual) Monocytes # (Manual) D-Dimer ABG pH ABG pO2 ABG HCO3 ABG O2 Saturation ABG Base Excess ABG Hemoglobin VBG pH Oxyhemoglobin Sodium Potassium Chloride Carbon Dioxide BUN Creatinine Glucose POC Glucose 220 H 195 H 223 H Hemoglobin A1c Lactic Acid Calcium Phosphorus Magnesium Ferritin AST ALT Alkaline Phosphatase Lactate Dehydrogenase C-Reactive Protein Total Protein Albumin Triglycerides Cholesterol Urine Creatinine Urine Microalbumin Vancomycin Trough Salicylates Acetaminophen 06/17/19 06/17/19 06/17/19 00:07 05:42 12:07 WBC RBC Hgb Hct MCH RDW Plt Count Lymph % (Auto) Seg Neutrophils % Seg Neuts % (Manual) Lymphocytes % (Manual) Monocytes % (Manual) Seg Neutrophils # Seg Neutrophils # Man Lymphocytes # (Manual) Monocytes # (Manual) D-Dimer ABG pH ABG pO2 ABG HCO3 ABG O2 Saturation ABG Base Excess ABG Hemoglobin VBG pH Oxyhemoglobin Sodium Potassium Chloride Carbon Dioxide BUN Creatinine Glucose POC Glucose 201 H 191 H 269 H Hemoglobin A1c Lactic Acid Calcium Phosphorus Magnesium Ferritin AST ALT Alkaline Phosphatase Lactate Dehydrogenase C-Reactive Protein Total Protein Albumin Triglycerides Cholesterol Urine Creatinine Urine Microalbumin Vancomycin Trough Salicylates Acetaminophen 06/17/19 06/18/19 06/18/19 17:40 00:05 05:32 WBC RBC Hgb Hct MCH RDW Plt Count Lymph % (Auto) Seg Neutrophils % Seg Neuts % (Manual) Lymphocytes % (Manual) Monocytes % (Manual) Seg Neutrophils # Seg Neutrophils # Man Lymphocytes # (Manual) Monocytes # (Manual) D-Dimer ABG pH ABG pO2 ABG HCO3 ABG O2 Saturation ABG Base Excess ABG Hemoglobin VBG pH Oxyhemoglobin Sodium Potassium Chloride Carbon Dioxide BUN Creatinine Glucose POC Glucose 266 H 222 H 273 H Hemoglobin A1c Lactic Acid Calcium Phosphorus Magnesium Ferritin AST ALT Alkaline Phosphatase Lactate Dehydrogenase C-Reactive Protein Total Protein Albumin Triglycerides Cholesterol Urine Creatinine Urine Microalbumin Vancomycin Trough Salicylates Acetaminophen 06/18/19 06/18/19 06/18/19 11:59 17:40 17:58 WBC RBC Hgb Hct MCH RDW Plt Count Lymph % (Auto) Seg Neutrophils % Seg Neuts % (Manual) Lymphocytes % (Manual) Monocytes % (Manual) Seg Neutrophils # Seg Neutrophils # Man Lymphocytes # (Manual) Monocytes # (Manual) D-Dimer ABG pH ABG pO2 ABG HCO3 ABG O2 Saturation ABG Base Excess ABG Hemoglobin VBG pH Oxyhemoglobin Sodium Potassium Chloride Carbon Dioxide BUN Creatinine Glucose POC Glucose 299 H 272 H 301 H Hemoglobin A1c Lactic Acid Calcium Phosphorus Magnesium Ferritin AST ALT Alkaline Phosphatase Lactate Dehydrogenase C-Reactive Protein Total Protein Albumin Triglycerides Cholesterol Urine Creatinine Urine Microalbumin Vancomycin Trough Salicylates Acetaminophen 06/18/19 06/18/19 06/19/19 20:48 23:30 06:05 WBC RBC Hgb Hct MCH RDW Plt Count Lymph % (Auto) Seg Neutrophils % Seg Neuts % (Manual) Lymphocytes % (Manual) Monocytes % (Manual) Seg Neutrophils # Seg Neutrophils # Man Lymphocytes # (Manual) Monocytes # (Manual) D-Dimer ABG pH ABG pO2 ABG HCO3 ABG O2 Saturation ABG Base Excess ABG Hemoglobin VBG pH Oxyhemoglobin Sodium Potassium Chloride Carbon Dioxide BUN Creatinine Glucose POC Glucose 282 H 283 H 294 H Hemoglobin A1c Lactic Acid Calcium Phosphorus Magnesium Ferritin AST ALT Alkaline Phosphatase Lactate Dehydrogenase C-Reactive Protein Total Protein Albumin Triglycerides Cholesterol Urine Creatinine Urine Microalbumin Vancomycin Trough Salicylates Acetaminophen 06/19/19 06/19/19 06/20/19 12:50 18:34 01:27 WBC RBC Hgb Hct MCH RDW Plt Count Lymph % (Auto) Seg Neutrophils % Seg Neuts % (Manual) Lymphocytes % (Manual) Monocytes % (Manual) Seg Neutrophils # Seg Neutrophils # Man Lymphocytes # (Manual) Monocytes # (Manual) D-Dimer ABG pH ABG pO2 ABG HCO3 ABG O2 Saturation ABG Base Excess ABG Hemoglobin VBG pH Oxyhemoglobin Sodium Potassium Chloride Carbon Dioxide BUN Creatinine Glucose POC Glucose 287 H 328 H 252 H Hemoglobin A1c Lactic Acid Calcium Phosphorus Magnesium Ferritin AST ALT Alkaline Phosphatase Lactate Dehydrogenase C-Reactive Protein Total Protein Albumin Triglycerides Cholesterol Urine Creatinine Urine Microalbumin Vancomycin Trough Salicylates Acetaminophen 06/20/19 06/20/19 06/20/19 04:50 04:54 12:46 WBC RBC Hgb Hct MCH RDW Plt Count Lymph % (Auto) Seg Neutrophils % Seg Neuts % (Manual) Lymphocytes % (Manual) Monocytes % (Manual) Seg Neutrophils # Seg Neutrophils # Man Lymphocytes # (Manual) Monocytes # (Manual) D-Dimer ABG pH ABG pO2 ABG HCO3 ABG O2 Saturation ABG Base Excess ABG Hemoglobin VBG pH Oxyhemoglobin Sodium 147 H Potassium Chloride Carbon Dioxide 31 H BUN Creatinine 0.4 L Glucose 323 H POC Glucose 290 H 278 H Hemoglobin A1c Lactic Acid Calcium Phosphorus Magnesium Ferritin AST ALT Alkaline Phosphatase Lactate Dehydrogenase C-Reactive Protein Total Protein Albumin Triglycerides Cholesterol Urine Creatinine Urine Microalbumin Vancomycin Trough Salicylates Acetaminophen Chest x-ray: pending (repeat in am tomorrow) Allied health notes reviewed: nursing
[2019-06-20] MEDS: QUEtiapine 25 MG TAB PO SCH (21:58)
[2019-06-21] MEDS: INSULIN REGULAR, HUMAN 100 UNITS/1 ML SUB-Q SCH ×4 (01:05→19:14)
[2019-06-21] MEDS: INSULIN GLARGINE 100 UNITS/ML SUB-Q SCH (01:06)
--- NOTE | 2019-06-21 08:56 | Progress Note ---
Assessment and Plan Assessment and plan: Mrs. Tomas is a 48-year-old female with a history of hypertension, type 2 diabetes mellitus events with altered mental status. She arrived per EMS. Last known time normal 10 PM on night prior to admission. Patient is nonverbal. History obtained from paramedics and electronic medical record. Patient had been ill with fever cough for the past several days. She recently returned back from [place]. EMS discovered patient to be altered with work of breathing. Patient is nonverbal. She was not moving her right side. She is hypoxic at 77% room air. Blood pressure was 140/97. Blood sugar was elevated fingerstick. Hx obtained from [facility] Love realized that patient was not speaking 4 AM. Found her later breathing really heavy. Unresponsive. When she came back from [place] last Saturday. She had high fever. Her doctor ordered test for COVID-19. Dr. Rausch her PCP informed patient that she tested negative. She went to [place] to celebrate her mother's birthday. On admission she was noted to be in DKA and started on DKA protocol. She was al so intubated and on full mechanical ventilatory support. Diagnostic work-up so far EKG shows sinus tachycardia with MAT CT head no acute intracranial process CT cervical spine patchy groundglass consolidative airspace disease right mid to lower lung Mrs. Tomas presents with altered mental status hypoxia. She required mechanical ventilation for oxygenation and airway control. Initially was not moving her right side. With oxygen supplementation she began to move both of her arms. She continued to be nonverbal. She did not follow commands prior to intubation. With CT chest findings and history of fever I strongly suspect COVID 19. Although she previously tested negative there is significant support of false negative test so we will retest. survey form was filled out in the ED by the ED physician through the [facility] department of health as a person under investigation for COVID 19. Patient returned 1 week ago from [place] after celebrating her mother's birthday. * COVID 19 test results came back positive has been advised to forego quarantine himself. COVID 19 Induced Pneumonia Acute hypoxic respiratory failure mild on mechanical ventilation Hypernatremia-remains elevated will increase free water. Hypertension Acute metabolic encephalopathy Right upper extremity weakness now resolved Pneumonia Hypokalemia Leukocytosis Sepsis secondary to pneumonia-with hypothermia Severe metabolic acidosis DKA-resolved Diabetes mellitus with uncontrolled blood sugar Plan 06/04: Remains on full mechanical support. Patient with respiratory alkalosis noted. Adjustment made to the ventilator to decrease the rate. Will replace potassium as hypokalemia still persist. Hypernatremia gradually improving will adjust free water. Patient's anion gap is finally closed will transition to sliding scale coverage with Lantus. Anticipate weaning trial today if patient is amendable to it. Oxygen at requirements per vent settings appears to be improving 06/05: Leukocytosis improving although patient still hypoxic on the ventilator. Awaiting COVID 19 testing results. In addition continue antibiotics for broad- spectrum coverage. Will adjust insulin for better blood sugar control. 06/06: We will increase free water to 300 cc every 4 hours. We will also obtain consultation from fashion illustrator. Otherwise continue current therapy. Also noted to have diastolic hypertension will adjust blood pressure medications. Initiated home meds. 06/07: Sodium gradually improving, will adjust free water to 350 while awaiting todays lab and fashion illustrator. Patient still with non purposeful movement. Will discuss with ID about possible trial drug Ivermectin. Adjust basal insulin to 40 units BID 06/08: ID and pulmonary considering trial of the new medication ivermectin as patient's inflammatory markers went back up. Sodium mildly elevated. In addition to blood sugar. Discontinued D5 water which could be leading to elevated blood sugar. Will adjust free water to 400 every 4 hours. Nephrology following 06/09: Continue supportive care, Continue Management per ID and Critical care team. 06/10 weaning in progress, on D5W for correcting the hypernatremia. Potassium supplemented 06/12/19 probable extubation tomorrow 06/13/19--Extubated today 06/14/19 For transfer to floor 06/14: Patient unable to Transfer to the floor as she became hypoxic requiring H ighflow oxygen, Low potassium noted, will replace, monitor Blood glucose. Exam limited due to limited PPE. Inflammatory markers improving. 06/15: Still concern for possible decompensation. Will continue on ICU status at this time. Aspiration precautions. Continue high flow. Replace electrolytes as needed. 06/16: Discussed with Dental Nurse, patient still on High flow oxygen and failed swallow evaluation yesterday. We will continue to follow. We will continue ICU care at this time. A Dobbhoff has been placed for nutritional support. I have updated the patient's and patient's improvement so far. 06/18/19: Patient clinically continues to improve. We will downgrade to stepdown still on high flow tolerating tube feeds. 06/18: Awaiting repeat COVID Test, continue rehab, Lantus adjusted for better control,. Oxygen down to 60% High flow needs, maintining sats but still very lethargic 06/19: gradually improving, I have requested repeat COVID19 TEST TODAY, LAST TEST ON THE WAS negative, with one additional negative she can be discharged to LTAC as she is still on high flow 06/20: Patient now has to confirm negative test 48 hours apart will anticipate transfer to LTAC in a.m. to continue weaning from high flow. We will check a chest x-ray and also obtain an ultrasound of the right upper extremity due to noted edema. Dental Nurse and infectious disease consult input noted EKG reviewed no evidence of atrial fibrillation. Replace potassium DKA protocol with insulin-will be discontinued Continue COVID isolation precautions per [facility] protocol S/P Plaquenil and azithromycin X 5 DAYS Obtain serial Ferritin, LDH, D-Dimer, CRP every 48h Empiric antibiotic coverage, obtain blood cultures and urine cultures and sputum cultures. Wean from vent as tolerated defer to powertrain control systems engineer We will monitor EKG for any visualization of the atrial fibrillation. If persist will obtain cardiology consult. DVT and GI prophylaxis The high probability of a clinically significant, sudden or life threatening deterioration of the [pulmonary, neuro,] system(s) required my full and direct attention, intervention and personal management. The aggregate critical care time was [32] minutes. This time is in addition to time spent performing reported procedures but includes the following: [x] Data Review and interpretation [x] Patient assessment and monitoring of vital signs [x] Documentation [x] Medication orders and management History Interval history: Patient seen and examined continues on high flow oxygen post extubation. Although patient is still on high flow she is stable now at 55% Hospitalist Physical - Physical exam Narrative exam: Constitutional: no acute distress, asleep, other (Atraumatic, normocephalic,) Eyes: non-icteric ENT: Follows some commands moves all ext Neck: supple, no lymphadenopathy, no JVD Effort: normal Ascultation: Bilateral: diminished breath sounds, rhonchi Percussion: Bilateral: not dull Cardiovascular: irregular rhythm, other (S1,S2, no murmurs). Right upper extremity edema Gastrointestinal: normoactive bowel sounds, soft, non-tender, tender Integumentary: normal Extremities: no cyanosis, no edema, pulses normal, no ischemia or petechiae Neurologic: per staff following some command Psychiatric: other exam limited due to limited PPE's - Constitutional Vitals: Temp Pulse Resp BP Pulse Ox 98.1 F 80 16 137/97 100 06/21/19 08:00 06/21/19 04:00 06/21/19 04:00 06/21/19 04:00 06/21/19 04:00 General appearance: Present: no acute distress, well-nourished MACK score - Mack Score Age > 65: (0) No 3 or more CAD Risk Factors: (1) Yes 2 or more Angina events in past 24 hrs: (0) No Known CAD with more than 50% Stenosis: (0) No Elevated Cardiac Markers: (0) No ST Deviation Greater than 0.5mm: (0) No Results - Labs CBC & Chem 7: 06/20/19 04:50 06/20/19 04:50 Labs: Laboratory Last Values WBC 7.1 K/mm3 (4.5-11.0) 06/20/19 04:50 RBC 4.55 M/mm3 (3.65-5.03) 06/20/19 04:50 Hgb 12.6 gm/dl (10.1-14.3) 06/20/19 04:50 Hct 39.7 % (30.3-42.9) 06/20/19 04:50 MCV 88 fl (79-97) 06/20/19 04:50 MCH 28 pg (28-32) 06/20/19 04:50 MCHC 32 % (30-34) 06/20/19 04:50 RDW 14.3 % (13.2-15.2) 06/20/19 04:50 Plt Count 255 K/mm3 (140-440) 06/20/19 04:50 Lymph % (Auto) 10.9 % (13.4-35.0) L 06/15/19 04:00 [place] % (Auto) 4.6 % (0.0-7.3) 06/15/19 04:00 Eos % (Auto) 0.1 % (0.0-4.3) 06/15/19 04:00 Baso % (Auto) 0.3 % (0.0-1.8) 06/15/19 04:00 Lymph # 1.7 K/mm3 (1.2-5.4) 06/15/19 04:00 [place] # 0.7 K/mm3 (0.0-0.8) 06/15/19 04:00 Eos # 0.0 K/mm3 (0.0-0.4) 06/15/19 04:00 Baso # 0.0 K/mm3 (0.0-0.1) 06/15/19 04:00 Add Manual Diff Complete 06/14/19 14:44 Total Counted 100 06/14/19 14:44 Seg Neutrophils % 84.1 % (40.0-70.0) H 06/15/19 04:00 Seg Neuts % (Manual) 81.0 % (40.0-70.0) H 06/14/19 14:44 Band Neutrophils % 0 % 06/14/19 14:44 Lymphocytes % (Manual) 10.0 % (13.4-35.0) L 06/14/19 14:44 Reactive Lymphs % (Man) 0 % 06/14/19 14:44 Monocytes % (Manual) 7.0 % (0.0-7.3) 06/14/19 14:44 Eosinophils % (Manual) 1.0 % (0.0-4.3) 06/14/19 14:44 Basophils % (Manual) 1.0 % (0.0-1.8) 06/14/19 14:44 Metamyelocytes % 0 % 06/14/19 14:44 Myelocytes % 0 % 06/14/19 14:44 Promyelocytes % 0 % 06/14/19 14:44 Blast Cells % 0 % 06/14/19 14:44 Nucleated RBC % Not Reportable 06/14/19 14:44 Seg Neutrophils # 13.1 K/mm3 (1.8-7.7) H 06/15/19 04:00 Seg Neutrophils # Man 11.3 K/mm3 (1.8-7.7) H 06/14/19 14:44 Band Neutrophils # 0.0 K/mm3 06/14/19 14:44 Lymphocytes # (Manual) 1.4 K/mm3 (1.2-5.4) 06/14/19 14:44 Abs React Lymphs (Man) 0.0 K/mm3 06/14/19 14:44 Monocytes # (Manual) 1.0 K/mm3 (0.0-0.8) H 06/14/19 14:44 Eosinophils # (Manual) 0.1 K/mm3 (0.0-0.4) 06/14/19 14:44 Basophils # (Manual) 0.1 K/mm3 (0.0-0.1) 06/14/19 14:44 Metamyelocytes # 0.0 K/mm3 06/14/19 14:44 Myelocytes # 0.0 K/mm3 06/14/19 14:44 Promyelocytes # 0.0 K/mm3 06/14/19 14:44 Blast Cells # 0.0 K/mm3 06/14/19 14:44 WBC Morphology Not Reportable 06/14/19 14:44 Hypersegmented Neuts Not Reportable 06/14/19 14:44 Hyposegmented Neuts Not Reportable 06/14/19 14:44 Hypogranular Neuts Not Reportable 06/14/19 14:44 Smudge Cells Not Reportable 06/14/19 14:44 Toxic Granulation Not Reportable 06/14/19 14:44 Toxic Vacuolation Not Reportable 06/14/19 14:44 Dohle Bodies Not Reportable 06/14/19 14:44 Pelger-Huet Anomaly Not Reportable 06/14/19 14:44 Stephanie Rods Not Reportable 06/14/19 14:44 Platelet Estimate Not Reportable 06/14/19 14:44 Clumped Platelets Not Reportable 06/14/19 14:44 Plt Clumps, EDTA Not Reportable 06/14/19 14:44 Large Platelets Not Reportable 06/14/19 14:44 Giant Platelets Not Reportable 06/14/19 14:44 Platelet Satelliting Not Reportable 06/14/19 14:44 Plt Morphology Comment Not Reportable 06/14/19 14:44 RBC Morphology Not Reportable 06/14/19 14:44 Dimorphic RBCs Not Reportable 06/14/19 14:44 Polychromasia Not Reportable 06/14/19 14:44 Hypochromasia 1+ 06/14/19 14:44 Poikilocytosis Not Reportable 06/14/19 14:44 Anisocytosis 1+ 06/14/19 14:44 Microcytosis Not Reportable 06/14/19 14:44 Macrocytosis Not Reportable 06/14/19 14:44 Spherocytes Not Reportable 06/14/19 14:44 Pappenheimer Bodies Not Reportable 06/14/19 14:44 Sickle Cells Not Reportable 06/14/19 14:44 Target Cells Not Reportable 06/14/19 14:44 Tear Drop Cells Not Reportable 06/14/19 14:44 Ovalocytes Not Reportable 06/14/19 14:44 Helmet Cells Not Reportable 06/14/19 14:44 [place] Bodies Not Reportable 06/14/19 14:44 [place] Rings Not Reportable 06/14/19 14:44 [place] Cells Not Reportable 06/14/19 14:44 Bite Cells Not Reportable 06/14/19 14:44 Crenated Cell Not Reportable 06/14/19 14:44 Elliptocytes Not Reportable 06/14/19 14:44 Acanthocytes (Spur) Not Reportable 06/14/19 14:44 Rouleaux Not Reportable 06/14/19 14:44 Hemoglobin C Crystals Not Reportable 06/14/19 14:44 Schistocytes Not Reportable 06/14/19 14:44 Malaria parasites Not Reportable 06/14/19 14:44 Elias Bodies Not Reportable 06/14/19 14:44 Hem Pathologist Commnt No 06/14/19 14:44 D-Dimer 836.6 ng/mlDDU (0-234) H 06/15/19 04:00 ABG pH 7.488 pH Units (7.350-7.450) H 06/14/19 16:35 ABG pCO2 40.7 mm Hg 06/14/19 16:35 ABG pO2 66.1 mm Hg (80.0-90.0) L 06/14/19 16:35 ABG HCO3 30.2 mmol/L (20.0-26.0) H 06/14/19 16:35 ABG O2 Saturation 94.7 % (95.0-99.0) L 06/14/19 16:35 ABG O2 Content 19.1 (0.0-44) 06/14/19 16:35 ABG Base Excess 6.3 mmol/L (-2.0-3.0) H 06/14/19 16:35 ABG Hemoglobin 14.6 gm/dl (12.0-16.0) 06/14/19 16:35 ABG Carboxyhemoglobin 1.0 % (0.0-5.0) 06/14/19 16:35 ABG Methemoglobin 0.5 % (0.0-1.5) 06/14/19 16:35 VBG pH 6.901 (7.320-7.420) L* 06/03/19 11:51 Oxyhemoglobin 93.3 % (95.0-99.0) L 06/14/19 16:35 FiO2 80 % 06/14/19 16:35 Sodium 147 mmol/L (137-145) H 06/20/19 04:50 Potassium 4.0 mmol/L (3.6-5.0) 06/20/19 04:50 Chloride 105.5 mmol/L (98-107) 06/20/19 04:50 Carbon Dioxide 31 mmol/L (22-30) H 06/20/19 04:50 Anion Gap 15 mmol/L 06/20/19 04:50 BUN 14 mg/dL (7-17) 06/20/19 04:50 Creatinine 0.4 mg/dL (0.7-1.2) L 06/20/19 04:50 Estimated GFR > 60 ml/min 06/20/19 04:50 BUN/Creatinine Ratio 35 % 06/20/19 04:50 Glucose 323 mg/dL (65-100) H 06/20/19 04:50 POC Glucose 277 (70-105) H 06/21/19 05:27 Hemoglobin A1c 9.6 % (4-6) H 06/03/19 16:03 Lactic Acid 1.90 mmol/L (0.7-2.0) 06/03/19 21:32 Calcium 9.9 mg/dL (8.4-10.2) 06/20/19 04:50 Phosphorus 2.20 mg/dL (2.5-4.5) L 06/08/19 09:33 Magnesium 2.60 mg/dL (1.7-2.3) H 06/08/19 09:33 Ferritin 908.8 ng/mL (13.0-400.0) H 06/15/19 04:00 Total Bilirubin 0.20 mg/dL (0.1-1.2) 06/12/19 03:58 AST 103 units/L (5-40) H 06/12/19 03:58 ALT 101 units/L (7-56) H 06/12/19 03:58 Alkaline Phosphatase 128 units/L (35-129) 06/12/19 03:58 Lactate Dehydrogenase 386 units/L (91-180) H 06/15/19 04:00 Troponin T < 0.010 ng/mL (0.00-0.029) 06/03/19 11:51 C-Reactive Protein 17.00 mg/dL (0.00-1.30) H 06/15/19 04:00 Total Protein 5.9 g/dL (6.3-8.2) L 06/12/19 03:58 Albumin 2.3 g/dL (3.9-5) L 06/12/19 03:58 Albumin/Globulin Ratio 0.6 % 06/12/19 03:58 Triglycerides 304 mg/dL (2-149) H 06/09/19 07:34 Cholesterol 250 mg/dL (50-199) H 06/03/19 19:00 LDL Cholesterol Direct TNR 06/03/19 19:00 HDL Cholesterol 46 mg/dL (40-59) 06/03/19 19:00 Cholesterol/HDL Ratio 5.43 % 06/03/19 19:00 Procalcitonin 0.10 ng/mL (<0.15) 06/13/19 09:23 Urine Color Yellow (Yellow) 06/03/19 11:48 Urine Turbidity Clear (Clear) 06/03/19 11:48 Urine pH 6.0 (5.0-7.0) 06/03/19 11:48 Ur Specific [place] 1.026 (1.003-1.030) 06/03/19 11:48 Urine Protein 100 mg/dl mg/dL (Negative) 06/03/19 11:48 Urine Glucose (UA) >=500 mg/dL (Negative) 06/03/19 11:48 Urine Ketones 80 mg/dL (Negative) 06/03/19 11:48 Urine Blood Mod (Negative) 06/03/19 11:48 Urine Nitrite Neg (Negative) 06/03/19 11:48 Urine Bilirubin Neg (Negative) 06/03/19 11:48 Urine Urobilinogen < 2.0 mg/dL (<2.0) 06/03/19 11:48 Ur Leukocyte Esterase Neg (Negative) 06/03/19 11:48 Urine WBC (Auto) 1.0 /HPF (0.0-6.0) 06/03/19 11:48 Urine RBC (Auto) 2.0 /HPF (0.0-6.0) 06/03/19 11:48 Granular Casts 4 /LPF 06/03/19 11:48 Urine Mucus Few /HPF 06/03/19 11:48 Urine Osmolality 755 Mosm/kg 06/07/19 17:00 Urine Creatinine 37.4 mg/dL (0.1-20.0) H 06/03/19 11:48 Urine Microalbumin 65.1 mg/dL (0.1-34.0) H 06/03/19 11:48 Microalb/Creat Ratio 1740.6 ug/mg 06/03/19 11:48 Urine Sodium 130 mmol/L 06/07/19 17:00 Urine Chloride 172.4 mmolL (110-250) 06/07/19 17:00 Urine HCG, Qual Negative (Negative) 06/03/19 11:48 Vancomycin Trough 4.2 ug/mL (5.0-20.0) L 06/05/19 21:00 Salicylates < 0.3 mg/dL (2.8-20.0) L 06/03/19 11:51 Urine Opiates Screen Presumptive negative 06/03/19 11:48 Urine Methadone Screen Presumptive negative 06/03/19 11:48 Acetaminophen < 5.0 ug/mL (10.0-30.0) L 06/03/19 11:51 Ur Barbiturates Screen Presumptive negative 06/03/19 11:48 Ur Phencyclidine Scrn Presumptive negative 06/03/19 11:48 Ur Amphetamines Screen Presumptive negative 06/03/19 11:48 U Benzodiazepines Scrn Presumptive negative 06/03/19 11:48 Urine Cocaine Screen Presumptive negative 06/03/19 11:48 U Marijuana (THC) Screen Presumptive negative 06/03/19 11:48 Drugs of Abuse Note Disclamer 06/03/19 11:48 Plasma/Serum Alcohol < 0.01 % (0-0.07) 06/03/19 11:51 Coronavirus (PCR) Negative (Negative) 06/20/19 12:25 Hepatitis A IgM Ab Non-reactive (NonReactive) 06/04/19 08:19 Hep Bs Antigen Non-reactive (Negative) 06/04/19 08:19 Hep B Core IgM Ab Non-reactive (NonReactive) 06/04/19 08:19 Hepatitis C Antibody Non-reactive (NonReactive) 06/04/19 08:19 Influenza A (Rapid) Negative (Negative) 06/03/19 Unknown Influenza B (Rapid) Negative (Negative) 06/03/19 Unknown Miscellaneous Test See scanned result 06/05/19 Unknown Alves/IV: Voiding Method External Female Catheter IV Catheter Type [Left Wrist] INT / Saline Lock IV Catheter Type [Right Hand] INT / Saline Lock IV Catheter Type [Left Hand] INT / Saline Lock IV Catheter Type [Right INT / Saline Lock Antecubital] IV Catheter Type [Left Peripheral IV Antecubital] Active Medications - Current Medications Current Medications: Generic Name Dose Route Start Last Admin Trade Name Freq PRN Reason Stop Dose Admin Albuterol 2 puff 06/15/19 12:24 Proair IH Q4HRT PRN Shortness Of Breath Amlodipine Besylate 5 mg 06/13/19 14:00 06/20/19 09:27 Amlodipine PO 5 mg QDAY JOSE ROBERTO Administration Lipase/Protease/Amylase 1 each 06/05/19 09:59 Pancreaze 10,500 Unit FEEDTUBE PRN PRN For Clogged Feeding Tube Dextrose 50 ml 06/03/19 13:57 D50w (25gm) Syringe IV Q30MIN PRN Hypoglycemia Protocol Famotidine 20 mg 06/06/19 10:00 06/20/19 21:57 Pepcid PO 20 mg BID JOSE ROBERTO Administration Heparin Sodium (Porcine) 5,000 unit 06/03/19 14:15 06/20/19 22:00 Heparin SUB-Q 5,000 unit Q12HR JOSE ROBERTO Administration Hydralazine HCl 10 mg 06/07/19 08:42 06/17/19 02:25 Apresoline IV 10 mg Q4HR PRN Administration Hypertension Hydrophilic Ointment 1 applic 06/03/19 11:02 Vaseline Lip Therapy TP Q2HR PRN Dry Lips Insulin Glargine 25 units 06/20/19 22:00 06/21/19 01:06 Lantus SUB-Q 25 units QHS JOSE ROBERTO Administration Insulin Human Regular 0 units 06/16/19 18:00 06/21/19 05:43 Humulin R SUB-Q 4 units Q6H JOSE ROBERTO Administration Protocol Losartan Potassium 50 mg 06/07/19 10:00 06/20/19 09:27 Cozaar PO 50 mg QDAY JOSE ROBERTO Administration Multi-Ingred Cream/Lotion/Oil/Oint 1 applic 06/03/19 11:02 Artificial Tears Ophth Oint OU Q4HR PRN Dry Eye(s) Quetiapine Fumarate 25 mg 06/18/19 22:00 06/20/19 21:58 Seroquel PO 25 mg QHS JOSE ROBERTO Administration Senna 8.6 mg 06/03/19 22:00 06/20/19 21:59 Senokot PO 8.6 mg BID JOSE ROBERTO Administration Simple Syrup 15 ml 06/05/19 09:59 Simple Syrup FEEDTUBE PRN PRN Hypoglycemia Simple Syrup 30 ml 06/05/19 09:59 Simple Syrup FEEDTUBE PRN PRN Hypoglycemia Sodium Bicarbonate 325 mg 06/05/19 09:59 Sodium Bicarbonate FEEDTUBE PRN PRN For Clogged Feeding Tube Sodium Chloride 10 ml 06/03/19 22:00 06/20/19 22:01 Sodium Chloride Flush Syringe 10 Ml IV 10 ml BID JOSE ROBERTO Administration Sodium Chloride 10 ml 06/03/19 13:57 Sodium Chloride Flush Syringe 10 Ml IV PRN PRN LINE FLUSH Nutrition/Malnutrition Assess - Dietary Evaluation Nutrition/Malnutrition Findings: Nutrition Notes Start: 06/04/19 08:3 0 Freq: Status: Active Protocol: Document 06/18/19 14:13 LM (Rec: 06/18/19 14:16 LM [email or web address]) Nutrition Notes Initial or Follow up Reassessment Current Diagnosis Diabetes,Sepsis,Hypertension, Respiratory Failure, Hyperlipidemia Other Pertinent Diagnosis COVID-19 positive, Pneu, metabolic encephalopathy Current Diet Glucerna 1.2 at 60ml/hr Labs/Tests POC glu 299 Pertinent Medications Humulin Height 5 ft 6 in Weight 81.1 kg [place] Body Weight (kg) 59.09 BMI 28.8 Weight Status Overweight Subjective/Other Information Per RN pt tolerating TF at goal. Percent of energy/protein needs met: 98%/100% Burn Absent Trauma Absent Current % PO Negligible Minimum of two criteria No Fluid Accumulation Mild (non-severe) #1 Nutrition Diagnosis Inadequate oral intake Diagnosis Progress(for reassessment Continues documentation) Is patient on ventilator? No Is Patient Ambulatory and/or Out of Bed No REE-([facility]-confined to bed) 2753.263 Calculation Used for Recommendations [facility] Additional Notes Protein: 65-81g (0.8-1g/kg) Fluid: 1ml/kcal Nutrition Intervention Change Diet Order: TF Nutrition Support: Glucerna 1.2 at 60ml/hr Flush 100 ml q4h Kcal 1,728 Protein (gm) 86 Fluid (mL) 1,159 Goal #1 TF tolerance Goal #2 Meet at least 80% of energy and protein needs Anticipated Discharge Needs: unable to determine at this time Follow-Up By: 06/24/19 Additional Comments F/U for TF tolerance
[2019-06-21] MEDS: HEPARIN 5,000 UNIT/1 ML VIAL SUB-Q SCH ×2 (10:18→21:40)
[2019-06-21] MEDS: FAMOTIDINE 20 MG TAB PO SCH ×2 (10:18→21:40)
[2019-06-21] MEDS: amLODIPine 5 MG TAB PO SCH (10:18)
[2019-06-21] MEDS: SENNOSIDES 8.6 MG TAB PO SCH ×2 (10:19→21:40)
[2019-06-21] MEDS: LOSARTAN 50 MG TAB PO SCH (10:19)
--- NOTE | 2019-06-21 10:45 | XRay Report ---
CHEST 1 VIEW 06/21/2019 9:44 AM INDICATION / CLINICAL INFORMATION: HYPOXIA. COMPARISON: One view of the chest from 06/14/2019. FINDINGS: SUPPORT DEVICES: An esophagogastric tube terminates over the pylorus/first portion of the duodenum. HEART / MEDIASTINUM: No significant abnormality. LUNGS / PLEURA: The previously seen bilateral airspace opacities have improved. No significant pleura l effusion. No pneumothorax. ADDITIONAL FINDINGS: No significant additional findings. IMPRESSION: Improved aeration of the lungs. Signer Name: Kalin Quarles MD Signed: 06/21/2019 10:40 AM Workstation Name: [id number]
--- NOTE | 2019-06-21 15:06 | Progress Note ---
Assessment and Plan Acute hypoxemic respiratory failure on MVS Bilateral pneumonia, possible aspiration. COVID-19 positive Diabetic ketoacidosis. Severe metabolic acidosis. Severe sepsis with acute encephalopathy and hypothermia. Acute toxic metabolic encephalopathy. Leukocytosis. Hemoconcentration. Elevated serum D-dimer. Acute kidney injury. Elevated serum transaminase. - continue awake proning - continue HFNC - continue to avoid BIPAP for now - use MDI's over nebulizers - continue airborne, contact and droplet isolation - continue to wean supplemental oxygen for target O2 sat's > 90% acutely - continue accuchecks resumed with glycemic control per Lantus and SSI (While critically ill target blood glucose of 140-180 mg/dL; avoid hypoglycemia) - continue aspiration precautions - continue bronchodilators with pulmonary hygiene per RT - wean per pulmonary driven protocols otherwise - continue to avoid nephrotoxins, adjust all medications fro CrCL and GFR - continue to avoid benzodiazepine's; reduce the possibility of delirium - complete antiinfectives per ID rec's - prn analgesia per pain score - Maintenance of sleep-wake cycle, avoid delirium - enteral nutritional support at goal rate as tolerated - G.I. & VTE prophylaxis withy heparin and Famotidine - PT/OT/ROM exercises - continue mobility protocols for pressure ulcer prophylaxis - Monitor hemodynamics closely - continue other care per attending / other consultants - Influenza and pneumonia vaccinations addressed per protocol - continue other care per attending / other consultants .... Re-evaluate in am & prn CONDITION: CRITICAL PROGNOSIS: GUARDED CODE STATUS: FULL CODE The high probability of a clinically significant, sudden or life-threatening deterioration of the [respiratory, cardiovascular, endocrine, renal & neurologic] system(s) required my full and direct attention, intervention and personal management. The aggregate critical care time was [31] minutes without overlap. Time includes spent on; [x] Data Review and interpretation [x] Patient assessment and monitoring of vital signs [x] Documentation [x] Medication orders and management Subjective Date of service: 06/21/19 Principal diagnosis: Ac hypoxemic resp failure; Bob. PNA; PUI CVOVID-19; DKA; Severe sepsis Interval history: Patient is seen today for: Ac hypoxemic resp failure; Bob. pneumonia; PUI COVID- 19; DKA; Severe sepsis Seen and examined at bedside; 24hour events reviewed; nursing and respiratory care staff consulted; no adverse overnight events reported to me; resting peacefully in bed; remains on HFNC but FiO2 down to 50%; No N/V/F/C Objective Vital Signs - 12hr 06/21/19 06/21/19 06/21/19 04:00 05:01 05:17 Temperature 97.8 F 97.8 F Pulse Rate 78 78 Pulse Rate [ 80 From Monitor] Respiratory 17 18 Rate Blood Pressure 137/97 O2 Sat by Pulse 100 100 Oximetry 06/21/19 06/21/19 06/21/19 06:00 07:01 08:00 Temperature 98.1 F Pulse Rate 74 79 Pulse Rate [ From Monitor] Respiratory 22 16 Rate Blood Pressure O2 Sat by Pulse 97 99 Oximetry 06/21/19 06/21/19 06/21/19 08:01 09:01 09:16 Temperature Pulse Rate 82 81 Pulse Rate [ From Monitor] Respiratory 17 30 H Rate Blood Pressure 169/99 169/99 O2 Sat by Pulse 100 97 98 Oximetry 06/21/19 06/21/19 06/21/19 10:18 10:19 12:00 Temperature 96.6 F L Pulse Rate 76 79 Pulse Rate [ From Monitor] Respiratory Rate Blood Pressure 169/99 169/99 O2 Sat by Pulse Oximetry 06/21/19 14:34 Temperature Pulse Rate Pulse Rate [ From Monitor] Respiratory Rate Blood Pressure O2 Sat by Pulse 98 Oximetry Constitutional: no acute distress, other (middle aged AAF, normocephalic with mi ldly increased respiratory effort at rest) Eyes: non-icteric ENT: oropharynx moist, other (NGT) Neck: supple, no lymphadenopathy, no JVD Effort: mildly labored Ascultation: Bilateral: diminished breath sounds, rales (base) Percussion: Bilateral: not dull Cardiovascular: irregular rhythm, other (S1,S2, no murmurs) Gastrointestinal: normoactive bowel sounds, soft, non-tender, non-distended Integumentary: normal Extremities: no cyanosis, no edema, pulses normal, no ischemia or petechiae Neurologic: normal mental status, non-focal exam, pupils equal and round, motor strength normal and (weak but improving) Psychiatric: mood appropriate, affect normal CBC and BMP: 06/20/19 04:50 06/20/19 04:50 ABG, PT/INR, D-dimer: ABG ABG pH 7.488 pH Units (7.350-7.450) H 06/14/19 16:35 ABG pCO2 40.7 mm Hg 06/14/19 16:35 ABG pO2 66.1 mm Hg (80.0-90.0) L 06/14/19 16:35 ABG O2 Saturation 94.7 % (95.0-99.0) L 06/14/19 16:35 PT/INR, D-dimer D-Dimer 836.6 ng/mlDDU (0-234) H 06/15/19 04:00 Abnormal lab findings: Abnormal Labs 06/03/19 06/03/19 06/03/19 10:59 11:15 11:48 WBC RBC Hgb Hct MCH RDW Plt Count Lymph % (Auto) Seg Neutrophils % Seg Neuts % (Manual) Lymphocytes % (Manual) Monocytes % (Manual) Seg Neutrophils # Seg Neutrophils # Man Lymphocytes # (Manual) Monocytes # (Manual) D-Dimer ABG pH ABG pO2 ABG HCO3 ABG O2 Saturation ABG Base Excess ABG Hemoglobin VBG pH Oxyhemoglobin Sodium Potassium Chloride Carbon Dioxide BUN Creatinine Glucose POC Glucose 372 H Hemoglobin A1c Lactic Acid Calcium Phosphorus 11.70 H Magnesium 4.40 H Ferritin AST ALT Alkaline Phosphatase Lactate Dehydrogenase C-Reactive Protein Total Protein Albumin Triglycerides Cholesterol Urine Creatinine 37.4 H Urine Microalbumin 65.1 H Vancomycin Trough Salicylates Acetaminophen 06/03/19 06/03/19 06/03/19 11:51 11:51 11:51 WBC 23.3 H RBC 6.43 H Hgb 17.7 H Hct 59.9 H* MCH RDW 17.1 H Plt Count Lymph % (Auto) Seg Neutrophils % Seg Neuts % (Manual) 71.0 H Lymphocytes % (Manual) 11.0 L Monocytes % (Manual) 8.0 H Seg Neutrophils # Seg Neutrophils # Man 16.5 H Lymphocytes # (Manual) Monocytes # (Manual) 1.9 H D-Dimer ABG pH ABG pO2 ABG HCO3 ABG O2 Saturation ABG Base Excess ABG Hemoglobin VBG pH Oxyhemoglobin Sodium Potassium Chloride Carbon Dioxide 4 L* BUN 41 H Creatinine 1.8 H Glucose 636 H* POC Glucose Hemoglobin A1c Lactic Acid 3.20 H* Calcium 10.9 H Phosphorus Magnesium Ferritin AST 43 H ALT Alkaline Phosphatase 147 H Lactate Dehydrogenase 673 H C-Reactive Protein 14.70 H Total Protein 8.9 H Albumin Triglycerides Cholesterol Urine Creatinine Urine Microalbumin Vancomycin Trough Salicylates Acetaminophen 06/03/19 06/03/19 06/03/19 11:51 11:51 11:51 WBC RBC Hgb Hct MCH RDW Plt Count Lymph % (Auto) Seg Neutrophils % Seg Neuts % (Manual) Lymphocytes % (Manual) Monocytes % (Manual) Seg Neutrophils # Seg Neutrophils # Man Lymphocytes # (Manual) Monocytes # (Manual) D-Dimer ABG pH ABG pO2 ABG HCO3 ABG O2 Saturation ABG Base Excess ABG Hemoglobin VBG pH 6.901 L* Oxyhemoglobin Sodium Potassium Chloride Carbon Dioxide BUN Creatinine Glucose POC Glucose Hemoglobin A1c Lactic Acid Calcium Phosphorus Magnesium Ferritin AST ALT Alkaline Phosphatase Lactate Dehydrogenase C-Reactive Protein Total Protein Albumin Triglycerides Cholesterol Urine Creatinine Urine Microalbumin Vancomycin Trough Salicylates < 0.3 L Acetaminophen < 5.0 L 06/03/19 06/03/19 06/03/19 11:51 11:51 12:34 WBC RBC Hgb Hct MCH RDW Plt Count Lymph % (Auto) Seg Neutrophils % Seg Neuts % (Manual) Lymphocytes % (Manual) Monocytes % (Manual) Seg Neutrophils # Seg Neutrophils # Man Lymphocytes # (Manual) Monocytes # (Manual) D-Dimer 4311.60 H ABG pH ABG pO2 ABG HCO3 ABG O2 Saturation ABG Base Excess ABG Hemoglobin VBG pH Oxyhemoglobin Sodium Potassium Chloride Carbon Dioxide BUN Creatinine Glucose POC Glucose Hemoglobin A1c Lactic Acid 5.20 H* Calcium Phosphorus Magnesium Ferritin 1037.0 H AST ALT Alkaline Phosphatase Lactate Dehydrogenase C-Reactive Protein Total Protein Albumin Triglycerides Cholesterol Urine Creatinine Urine Microalbumin Vancomycin Trough Salicylates Acetaminophen 06/03/19 06/03/19 06/03/19 14:30 16:03 17:00 WBC RBC Hgb Hct MCH RDW Plt Count Lymph % (Auto) Seg Neutrophils % Seg Neuts % (Manual) Lymphocytes % (Manual) Monocytes % (Manual) Seg Neutrophils # Seg Neutrophils # Man Lymphocytes # (Manual) Monocytes # (Manual) D-Dimer ABG pH 6.880 L* ABG pO2 489.9 H ABG HCO3 7.1 L ABG O2 Saturation 99.6 H ABG Base Excess -26.1 L ABG Hemoglobin 16.2 H VBG pH Oxyhemoglobin Sodium Potassium Chloride Carbon Dioxide BUN Creatinine Glucose POC Glucose 335 H Hemoglobin A1c 9.6 H Lactic Acid Calcium Phosphorus Magnesium Ferritin AST ALT Alkaline Phosphatase Lactate Dehydrogenase C-Reactive Protein Total Protein Albumin Triglycerides Cholesterol Urine Creatinine Urine Microalbumin Vancomycin Trough Salicylates Acetaminophen 06/03/19 06/03/19 06/03/19 18:14 18:24 19:00 WBC RBC Hgb Hct MCH RDW Plt Count Lymph % (Auto) Seg Neutrophils % Seg Neuts % (Manual) Lymphocytes % (Manual) Monocytes % (Manual) Seg Neutrophils # Seg Neutrophils # Man Lymphocytes # (Manual) Monocytes # (Manual) D-Dimer ABG pH 7.057 L* ABG pO2 97.2 H ABG HCO3 5.5 L ABG O2 Saturation ABG Base Excess -23.0 L ABG Hemoglobin 18.1 H VBG pH Oxyhemoglobin 94.4 L Sodium Potassium Chloride Carbon Dioxide BUN Creatinine Glucose POC Glucose 285 H Hemoglobin A1c Lactic Acid 3.40 H* Calcium Phosphorus Magnesium Ferritin AST ALT Alkaline Phosphatase Lactate Dehydrogenase C-Reactive Protein Total Protein Albumin Triglycerides Cholesterol Urine Creatinine Urine Microalbumin Vancomycin Trough Salicylates Acetaminophen 06/03/19 06/03/19 06/03/19 19:00 19:00 19:52 WBC RBC Hgb Hct MCH RDW Plt Count Lymph % (Auto) Seg Neutrophils % Seg Neuts % (Manual) Lymphocytes % (Manual) Monocytes % (Manual) Seg Neutrophils # Seg Neutrophils # Man Lymphocytes # (Manual) Monocytes # (Manual) D-Dimer ABG pH ABG pO2 ABG HCO3 ABG O2 Saturation ABG Base Excess ABG Hemoglobin VBG pH Oxyhemoglobin Sodium 151 H Potassium Chloride 120.8 H Carbon Dioxide 6 L* BUN 33 H Creatinine 1.4 H Glucose 339 H POC Glucose 316 H Hemoglobin A1c Lactic Acid Calcium Phosphorus Magnesium Ferritin AST 47 H ALT Alkaline Phosphatase 130 H Lactate Dehydrogenase C-Reactive Protein Total Protein Albumin 3.7 L Triglycerides 424 H Cholesterol 250 H Urine Creatinine Urine Microalbumin Vancomycin Trough Salicylates Acetaminophen 06/03/19 06/03/19 06/03/19 20:21 20:21 21:01 WBC RBC Hgb Hct MCH RDW Plt Count Lymph % (Auto) Seg Neutrophils % Seg Neuts % (Manual) Lymphocytes % (Manual) Monocytes % (Manual) Seg Neutrophils # Seg Neutrophils # Man Lymphocytes # (Manual) Monocytes # (Manual) D-Dimer ABG pH ABG pO2 ABG HCO3 ABG O2 Saturation ABG Base Excess ABG Hemoglobin VBG pH Oxyhemoglobin Sodium 153 H Potassium Chloride 121.8 H Carbon Dioxide 6 L* BUN 34 H Creatinine 1.3 H Glucose 324 H POC Glucose 245 H Hemoglobin A1c Lactic Acid 3.10 H* Calcium Phosphorus Magnesium Ferritin AST ALT Alkaline Phosphatase Lactate Dehydrogenase C-Reactive Protein Total Protein Albumin Triglycerides Cholesterol Urine Creatinine Urine Microalbumin Vancomycin Trough Salicylates Acetaminophen 06/03/19 06/03/19 06/03/19 21:25 21:32 22:42 WBC RBC Hgb Hct MCH RDW Plt Count Lymph % (Auto) Seg Neutrophils % Seg Neuts % (Manual) Lymphocytes % (Manual) Monocytes % (Manual) Seg Neutrophils # Seg Neutrophils # Man Lymphocytes # (Manual) Monocytes # (Manual) D-Dimer ABG pH 7.172 L* ABG pO2 107.2 H ABG HCO3 5.2 L ABG O2 Saturation ABG Base Excess -20.5 L ABG Hemoglobin 17.3 H VBG pH Oxyhemoglobin Sodium 155 H Potassium 2.6 L* D Chloride 130.1 H Carbon Dioxide 5 L* BUN 24 H Creatinine Glucose 212 H POC Glucose 225 H Hemoglobin A1c Lactic Acid Calcium 5.8 L* D Phosphorus Magnesium Ferritin AST ALT Alkaline Phosphatase Lactate Dehydrogenase C-Reactive Protein Total Protein Albumin Triglycerides Cholesterol Urine Creatinine Urine Microalbumin Vancomycin Trough Salicylates Acetaminophen 06/03/19 06/04/19 06/04/19 23:32 00:04 01:25 WBC RBC Hgb Hct MCH RDW Plt Count Lymph % (Auto) Seg Neutrophils % Seg Neuts % (Manual) Lymphocytes % (Manual) Monocytes % (Manual) Seg Neutrophils # Seg Neutrophils # Man Lymphocytes # (Manual) Monocytes # (Manual) D-Dimer ABG pH ABG pO2 ABG HCO3 ABG O2 Saturation ABG Base Excess ABG Hemoglobin VBG pH Oxyhemoglobin Sodium 151 H 151 H Potassium 1.5 L* D Chloride 139.0 H 124.7 H Carbon Dioxide 3 L* 9 L* BUN 31 H Creatinine 0.2 L D Glucose 117 H 241 H POC Glucose 231 H Hemoglobin A1c Lactic Acid Calcium 3.1 L* D Phosphorus Magnesium Ferritin AST ALT Alkaline Phosphatase Lactate Dehydrogenase C-Reactive Protein Total Protein Albumin Triglycerides Cholesterol Urine Creatinine Urine Microalbumin Vancomycin Trough Salicylates Acetaminophen 06/04/19 06/04/19 06/04/19 01:34 02:45 03:21 WBC RBC Hgb Hct MCH RDW Plt Count Lymph % (Auto) Seg Neutrophils % Seg Neuts % (Manual) Lymphocytes % (Manual) Monocytes % (Manual) Seg Neutrophils # Seg Neutrophils # Man Lymphocytes # (Manual) Monocytes # (Manual) D-Dimer ABG pH ABG pO2 ABG HCO3 ABG O2 Saturation ABG Base Excess ABG Hemoglobin VBG pH Oxyhemoglobin Sodium Potassium Chloride Carbon Dioxide BUN Creatinine Glucose POC Glucose 194 H 189 H 183 H Hemoglobin A1c Lactic Acid Calcium Phosphorus Magnesium Ferritin AST ALT Alkaline Phosphatase Lactate Dehydrogenase C-Reactive Protein Total Protein Albumin Triglycerides Cholesterol Urine Creatinine Urine Microalbumin Vancomycin Trough Salicylates Acetaminophen 06/04/19 06/04/19 06/04/19 04:50 05:07 06:27 WBC RBC Hgb Hct MCH RDW Plt Count Lymph % (Auto) Seg Neutrophils % Seg Neuts % (Manual) Lymphocytes % (Manual) Monocytes % (Manual) Seg Neutrophils # Seg Neutrophils # Man Lymphocytes # (Manual) Monocytes # (Manual) D-Dimer ABG pH ABG pO2 76.5 L ABG HCO3 12.9 L ABG O2 Saturation ABG Base Excess -9.0 L ABG Hemoglobin VBG pH Oxyhemoglobin Sodium Potassium Chloride Carbon Dioxide BUN Creatinine Glucose POC Glucose 200 H 164 H Hemoglobin A1c Lactic Acid Calcium Phosphorus Magnesium Ferritin AST ALT Alkaline Phosphatase Lactate Dehydrogenase C-Reactive Protein Total Protein Albumin Triglycerides Cholesterol Urine Creatinine Urine Microalbumin Vancomycin Trough Salicylates Acetaminophen 06/04/19 06/04/19 06/04/19 07:00 07:00 07:00 WBC 13.4 H RBC 5.54 H Hgb 15.3 H Hct 46.1 H D MCH RDW Plt Count Lymph % (Auto) Seg Neutrophils % Seg Neuts % (Manual) 72.0 H Lymphocytes % (Manual) 6.0 L Monocytes % (Manual) Seg Neutrophils # Seg Neutrophils # Man 9.6 H Lymphocytes # (Manual) 0.8 L Monocytes # (Manual) D-Dimer ABG pH ABG pO2 ABG HCO3 ABG O2 Saturation ABG Base Excess ABG Hemoglobin VBG pH Oxyhemoglobin Sodium 158 H 156 H Potassium 2.7 L* D 2.6 L* Chloride 124.3 H 123.5 H Carbon Dioxide 11 L 11 L BUN 25 H 26 H Creatinine Glucose 192 H 190 H POC Glucose Hemoglobin A1c Lactic Acid Calcium Phosphorus Magnesium Ferritin AST 43 H ALT Alkaline Phosphatase Lactate Dehydrogenase 590 H C-Reactive Protein 22.70 H Total Protein Albumin 2.9 L Triglycerides Cholesterol Urine Creatinine Urine Microalbumin Vancomycin Trough Salicylates Acetaminophen 06/04/19 06/04/19 06/04/19 07:00 07:00 07:14 WBC RBC Hgb Hct MCH RDW Plt Count Lymph % (Auto) Seg Neutrophils % Seg Neuts % (Manual) Lymphocytes % (Manual) Monocytes % (Manual) Seg Neutrophils # Seg Neutrophils # Man Lymphocytes # (Manual) Monocytes # (Manual) D-Dimer 2050.33 H ABG pH ABG pO2 ABG HCO3 ABG O2 Saturation ABG Base Excess ABG Hemoglobin VBG pH Oxyhemoglobin Sodium Potassium Chloride Carbon Dioxide BUN Creatinine Glucose POC Glucose 176 H Hemoglobin A1c Lactic Acid Calcium Phosphorus Magnesium Ferritin 941.3 H AST ALT Alkaline Phosphatase Lactate Dehydrogenase C-Reactive Protein Total Protein Albumin Triglycerides Cholesterol Urine Creatinine Urine Microalbumin Vancomycin Trough Salicylates Acetaminophen 06/04/19 06/04/19 06/04/19 09:55 11:38 12:19 WBC RBC Hgb Hct MCH RDW Plt Count Lymph % (Auto) Seg Neutrophils % Seg Neuts % (Manual) Lymphocytes % (Manual) Monocytes % (Manual) Seg Neutrophils # Seg Neutrophils # Man Lymphocytes # (Manual) Monocytes # (Manual) D-Dimer ABG pH ABG pO2 ABG HCO3 ABG O2 Saturation ABG Base Excess ABG Hemoglobin VBG pH Oxyhemoglobin Sodium Potassium Chloride Carbon Dioxide BUN Creatinine Glucose POC Glucose 184 H 145 H 144 H Hemoglobin A1c Lactic Acid Calcium Phosphorus Magnesium Ferritin AST ALT Alkaline Phosphatase Lactate Dehydrogenase C-Reactive Protein Total Protein Albumin Triglycerides Cholesterol Urine Creatinine Urine Microalbumin Vancomycin Trough Salicylates Acetaminophen 06/04/19 06/04/19 06/04/19 13:35 14:29 15:06 WBC RBC Hgb Hct MCH RDW Plt Count Lymph % (Auto) Seg Neutrophils % Seg Neuts % (Manual) Lymphocytes % (Manual) Monocytes % (Manual) Seg Neutrophils # Seg Neutrophils # Man Lymphocytes # (Manual) Monocytes # (Manual) D-Dimer ABG pH ABG pO2 ABG HCO3 ABG O2 Saturation ABG Base Excess ABG Hemoglobin VBG pH Oxyhemoglobin Sodium 157 H Potassium 2.4 L* Chloride 121.4 H Carbon Dioxide 20 L D BUN 21 H Creatinine Glucose 176 H POC Glucose 151 H 142 H Hemoglobin A1c Lactic Acid Calcium Phosphorus Magnesium Ferritin AST ALT Alkaline Phosphatase Lactate Dehydrogenase C-Reactive Protein Total Protein Albumin Triglycerides Cholesterol Urine Creatinine Urine Microalbumin Vancomycin Trough Salicylates Acetaminophen 0406/04/19 06/04/19 17:14 17:51 21:45 WBC RBC Hgb Hct MCH RDW Plt Count Lymph % (Auto) Seg Neutrophils % Seg Neuts % (Manual) Lymphocytes % (Manual) Monocytes % (Manual) Seg Neutrophils # Seg Neutrophils # Man Lymphocytes # (Manual) Monocytes # (Manual) D-Dimer ABG pH ABG pO2 ABG HCO3 ABG O2 Saturation ABG Base Excess ABG Hemoglobin VBG pH Oxyhemoglobin Sodium Potassium Chloride Carbon Dioxide BUN Creatinine Glucose POC Glucose 200 H 159 H 143 H Hemoglobin A1c Lactic Acid Calcium Phosphorus Magnesium Ferritin AST ALT Alkaline Phosphatase Lactate Dehydrogenase C-Reactive Protein Total Protein Albumin Triglycerides Cholesterol Urine Creatinine Urine Microalbumin Vancomycin Trough Salicylates Acetaminophen 06/04/19 06/04/19 06/04/19 22:20 22:21 23:27 WBC RBC Hgb Hct MCH RDW Plt Count Lymph % (Auto) Seg Neutrophils % Seg Neuts % (Manual) Lymphocytes % (Manual) Monocytes % (Manual) Seg Neutrophils # Seg Neutrophils # Man Lymphocytes # (Manual) Monocytes # (Manual) D-Dimer ABG pH 7.572 H ABG pO2 58.5 L ABG HCO3 ABG O2 Saturation ABG Base Excess 3.5 H ABG Hemoglobin 20.0 H VBG pH Oxyhemoglobin 94.6 L Sodium Potassium Chloride Carbon Dioxide BUN Creatinine Glucose POC Glucose 154 H 147 H Hemoglobin A1c Lactic Acid Calcium Phosphorus Magnesium Ferritin AST ALT Alkaline Phosphatase Lactate Dehydrogenase C-Reactive Protein Total Protein Albumin Triglycerides Cholesterol Urine Creatinine Urine Microalbumin Vancomycin Trough Salicylates Acetaminophen 06/05/19 06/05/19 06/05/19 00:27 01:16 02:20 WBC RBC Hgb Hct MCH RDW Plt Count Lymph % (Auto) Seg Neutrophils % Seg Neuts % (Manual) Lymphocytes % (Manual) Monocytes % (Manual) Seg Neutrophils # Seg Neutrophils # Man Lymphocytes # (Manual) Monocytes # (Manual) D-Dimer ABG pH ABG pO2 ABG HCO3 ABG O2 Saturation ABG Base Excess ABG Hemoglobin VBG pH Oxyhemoglobin Sodium Potassium Chloride Carbon Dioxide BUN Creatinine Glucose POC Glucose 124 H 126 H 156 H Hemoglobin A1c Lactic Acid Calcium Phosphorus Magnesium Ferritin AST ALT Alkaline Phosphatase Lactate Dehydrogenase C-Reactive Protein Total Protein Albumin Triglycerides Cholesterol Urine Creatinine Urine Microalbumin Vancomycin Trough Salicylates Acetaminophen 06/05/19 06/05/19 06/05/19 03:44 03:59 04:52 WBC RBC Hgb Hct MCH RDW Plt Count Lymph % (Auto) Seg Neutrophils % Seg Neuts % (Manual) Lymphocytes % (Manual) Monocytes % (Manual) Seg Neutrophils # Seg Neutrophils # Man Lymphocytes # (Manual) Monocytes # (Manual) D-Dimer ABG pH ABG pO2 ABG HCO3 ABG O2 Saturation ABG Base Excess ABG Hemoglobin VBG pH Oxyhemoglobin Sodium 155 H Potassium 3.0 L D Chloride 114.7 H Carbon Dioxide BUN Creatinine 0.6 L Glucose 136 H POC Glucose 143 H 141 H Hemoglobin A1c Lactic Acid Calcium Phosphorus Magnesium Ferritin AST ALT Alkaline Phosphatase Lactate Dehydrogenase C-Reactive Protein Total Protein Albumin Triglycerides Cholesterol Urine Creatinine Urine Microalbumin Vancomycin Trough Salicylates Acetaminophen 06/05/19 06/05/19 06/05/19 05:00 05:54 07:01 WBC RBC Hgb Hct MCH RDW Plt Count Lymph % (Auto) Seg Neutrophils % Seg Neuts % (Manual) Lymphocytes % (Manual) Monocytes % (Manual) Seg Neutrophils # Seg Neutrophils # Man Lymphocytes # (Manual) Monocytes # (Manual) D-Dimer ABG pH 7.621 H* ABG pO2 54.3 L ABG HCO3 29.8 H ABG O2 Saturation ABG Base Excess 8.8 H ABG Hemoglobin VBG pH Oxyhemoglobin Sodium Potassium Chloride Carbon Dioxide BUN Creatinine Glucose POC Glucose 155 H 145 H Hemoglobin A1c Lactic Acid Calcium Phosphorus Magnesium Ferritin AST ALT Alkaline Phosphatase Lactate Dehydrogenase C-Reactive Protein Total Protein Albumin Triglycerides Cholesterol Urine Creatinine Urine Microalbumin Vancomycin Trough Salicylates Acetaminophen 06/05/19 06/05/19 06/05/19 12:13 18:23 21:00 WBC RBC Hgb Hct MCH RDW Plt Count Lymph % (Auto) Seg Neutrophils % Seg Neuts % (Manual) Lymphocytes % (Manual) Monocytes % (Manual) Seg Neutrophils # Seg Neutrophils # Man Lymphocytes # (Manual) Monocytes # (Manual) D-Dimer ABG pH ABG pO2 ABG HCO3 ABG O2 Saturation ABG Base Excess ABG Hemoglobin VBG pH Oxyhemoglobin Sodium Potassium Chloride Carbon Dioxide BUN Creatinine Glucose POC Glucose 202 H 257 H Hemoglobin A1c Lactic Acid Calcium Phosphorus Magnesium Ferritin AST ALT Alkaline Phosphatase Lactate Dehydrogenase C-Reactive Protein Total Protein Albumin Triglycerides Cholesterol Urine Creatinine Urine Microalbumin Vancomycin Trough 4.2 L Salicylates Acetaminophen 06/05/19 06/06/19 06/06/19 23:55 04:16 04:37 WBC RBC Hgb Hct MCH RDW Plt Count Lymph % (Auto) Seg Neutrophils % Seg Neuts % (Manual) Lymphocytes % (Manual) Monocytes % (Manual) Seg Neutrophils # Seg Neutrophils # Man Lymphocytes # (Manual) Monocytes # (Manual) D-Dimer 1279.22 H ABG pH 7.600 H ABG pO2 62.4 L ABG HCO3 28.0 H ABG O2 Saturation ABG Base Excess 6.6 H ABG Hemoglobin 10.4 L VBG pH Oxyhemoglobin Sodium Potassium Chloride Carbon Dioxide BUN Creatinine Glucose POC Glucose 267 H Hemoglobin A1c Lactic Acid Calcium Phosphorus Magnesium Ferritin AST ALT Alkaline Phosphatase Lactate Dehydrogenase C-Reactive Protein Total Protein Albumin Triglycerides Cholesterol Urine Creatinine Urine Microalbumin Vancomycin Trough Salicylates Acetaminophen 06/06/19 06/06/19 06/06/19 04:37 04:37 04:37 WBC 12.2 H RBC 5.10 H Hgb Hct MCH 27 L RDW Plt Count Lymph % (Auto) Seg Neutrophils % Seg Neuts % (Manual) Lymphocytes % (Manual) Monocytes % (Manual) Seg Neutrophils # Seg Neutrophils # Man Lymphocytes # (Manual) Monocytes # (Manual) D-Dimer ABG pH ABG pO2 ABG HCO3 ABG O2 Saturation ABG Base Excess ABG Hemoglobin VBG pH Oxyhemoglobin Sodium 156 H Potassium 3.4 L Chloride 112.9 H Carbon Dioxide BUN 21 H Creatinine 0.6 L Glucose 332 H POC Glucose Hemoglobin A1c Lactic Acid Calcium Phosphorus Magnesium Ferritin 1649.0 H AST ALT Alkaline Phosphatase Lactate Dehydrogenase 578 H C-Reactive Protein 22.10 H Total Protein Albumin Triglycerides Cholesterol Urine Creatinine Urine Microalbumin Vancomycin Trough Salicylates Acetaminophen 06/06/19 06/06/19 06/06/19 05:45 11:55 12:21 WBC RBC Hgb Hct MCH RDW Plt Count Lymph % (Auto) Seg Neutrophils % Seg Neuts % (Manual) Lymphocytes % (Manual) Monocytes % (Manual) Seg Neutrophils # Seg Neutrophils # Man Lymphocytes # (Manual) Monocytes # (Manual) D-Dimer ABG pH 7.511 H ABG pO2 123.0 H ABG HCO3 29.7 H ABG O2 Saturation ABG Base Excess 6.4 H ABG Hemoglobin VBG pH Oxyhemoglobin Sodium Potassium Chloride Carbon Dioxide BUN Creatinine Glucose POC Glucose 303 H 281 H Hemoglobin A1c Lactic Acid Calcium Phosphorus Magnesium Ferritin AST ALT Alkaline Phosphatase Lactate Dehydrogenase C-Reactive Protein Total Protein Albumin Triglycerides Cholesterol Urine Creatinine Urine Microalbumin Vancomycin Trough Salicylates Acetaminophen 06/06/19 06/07/19 06/07/19 17:06 00:25 04:39 WBC RBC Hgb Hct MCH RDW Plt Count Lymph % (Auto) Seg Neutrophils % Seg Neuts % (Manual) Lymphocytes % (Manual) Monocytes % (Manual) Seg Neutrophils # Seg Neutrophils # Man Lymphocytes # (Manual) Monocytes # (Manual) D-Dimer ABG pH 7.507 H ABG pO2 46.4 L ABG HCO3 32.6 H ABG O2 Saturation 90.6 L ABG Base Excess 8.6 H ABG Hemoglobin VBG pH Oxyhemoglobin 89.2 L Sodium Potassium Chloride Carbon Dioxide BUN Creatinine Glucose POC Glucose 251 H 225 H Hemoglobin A1c Lactic Acid Calcium Phosphorus Magnesium Ferritin AST ALT Alkaline Phosphatase Lactate Dehydrogenase C-Reactive Protein Total Protein Albumin Triglycerides Cholesterol Urine Creatinine Urine Microalbumin Vancomycin Trough Salicylates Acetaminophen 06/07/19 06/07/19 06/07/19 04:43 04:43 04:43 WBC 13.6 H RBC 5.14 H Hgb Hct 43.4 H MCH 27 L RDW Plt Count Lymph % (Auto) Seg Neutrophils % Seg Neuts % (Manual) Lymphocytes % (Manual) Monocytes % (Manual) Seg Neutrophils # Seg Neutrophils # Man Lymphocytes # (Manual) Monocytes # (Manual) D-Dimer ABG pH ABG pO2 ABG HCO3 ABG O2 Saturation ABG Base Excess ABG Hemoglobin VBG pH Oxyhemoglobin Sodium 166 H* D Potassium 3.0 L Chloride 122.9 H Carbon Dioxide BUN 27 H Creatinine 0.5 L Glucose 265 H POC Glucose Hemoglobin A1c Lactic Acid Calcium Phosphorus Magnesium Ferritin AST ALT Alkaline Phosphatase Lactate Dehydrogenase C-Reactive Protein Total Protein Albumin Triglycerides 373 H Cholesterol Urine Creatinine Urine Microalbumin Vancomycin Trough Salicylates Acetaminophen 06/07/19 06/07/19 06/07/19 10:12 11:39 15:31 WBC RBC Hgb Hct MCH RDW Plt Count Lymph % (Auto) Seg Neutrophils % Seg Neuts % (Manual) Lymphocytes % (Manual) Monocytes % (Manual) Seg Neutrophils # Seg Neutrophils # Man Lymphocytes # (Manual) Monocytes # (Manual) D-Dimer ABG pH ABG pO2 ABG HCO3 ABG O2 Saturation ABG Base Excess ABG Hemoglobin VBG pH Oxyhemoglobin Sodium 163 H* 161 H* Potassium 3.1 L Chloride 117.7 H Carbon Dioxide BUN 22 H Creatinine 0.5 L Glucose 274 H POC Glucose 218 H Hemoglobin A1c Lactic Acid Calcium Phosphorus Magnesium Ferritin AST ALT Alkaline Phosphatase Lactate Dehydrogenase C-Reactive Protein Total Protein Albumin Triglycerides Cholesterol Urine Creatinine Urine Microalbumin Vancomycin Trough Salicylates Acetaminophen 06/07/19 06/08/19 06/08/19 17:16 00:04 03:45 WBC RBC Hgb Hct MCH RDW Plt Count Lymph % (Auto) Seg Neutrophils % Seg Neuts % (Manual) Lymphocytes % (Manual) Monocytes % (Manual) Seg Neutrophils # Seg Neutrophils # Man Lymphocytes # (Manual) Monocytes # (Manual) D-Dimer ABG pH 7.504 H ABG pO2 54.2 L ABG HCO3 32.3 H ABG O2 Saturation 93.7 L ABG Base Excess 8.4 H ABG Hemoglobin VBG pH Oxyhemoglobin 92.2 L Sodium Potassium Chloride Carbon Dioxide BUN Creatinine Glucose POC Glucose 284 H 283 H Hemoglobin A1c Lactic Acid Calcium Phosphorus Magnesium Ferritin AST ALT Alkaline Phosphatase Lactate Dehydrogenase C-Reactive Protein Total Protein Albumin Triglycerides Cholesterol Urine Creatinine Urine Microalbumin Vancomycin Trough Salicylates Acetaminophen 06/08/19 06/08/19 06/08/19 05:02 09:33 09:33 WBC RBC Hgb Hct MCH RDW Plt Count Lymph % (Auto) Seg Neutrophils % Seg Neuts % (Manual) Lymphocytes % (Manual) Monocytes % (Manual) Seg Neutrophils # Seg Neutrophils # Man Lymphocytes # (Manual) Monocytes # (Manual) D-Dimer 1319.18 H ABG pH ABG pO2 ABG HCO3 ABG O2 Saturation ABG Base Excess ABG Hemoglobin VBG pH Oxyhemoglobin Sodium Potassium Chloride Carbon Dioxide BUN Creatinine Glucose POC Glucose 291 H Hemoglobin A1c Lactic Acid Calcium Phosphorus Magnesium Ferritin 1274.0 H AST ALT Alkaline Phosphatase Lactate Dehydrogenase C-Reactive Protein Total Protein Albumin Triglycerides Cholesterol Urine Creatinine Urine Microalbumin Vancomycin Trough Salicylates Acetaminophen 06/08/19 06/08/19 06/08/19 09:33 09:33 17:46 WBC 16.0 H RBC Hgb Hct MCH 27 L RDW Plt Count Lymph % (Auto) Seg Neutrophils % Seg Neuts % (Manual) Lymphocytes % (Manual) Monocytes % (Manual) Seg Neutrophils # Seg Neutrophils # Man Lymphocytes # (Manual) Monocytes # (Manual) D-Dimer ABG pH ABG pO2 ABG HCO3 ABG O2 Saturation ABG Base Excess ABG Hemoglobin VBG pH Oxyhemoglobin Sodium 157 H Potassium 3.1 L Chloride 116.7 H Carbon Dioxide BUN 24 H Creatinine 0.5 L Glucose 351 H POC Glucose 309 H Hemoglobin A1c Lactic Acid Calcium Phosphorus 2.20 L Magnesium 2.60 H Ferritin AST ALT Alkaline Phosphatase 131 H Lactate Dehydrogenase 449 H C-Reactive Protein 9.70 H Total Protein 6.1 L Albumin 2.1 L Triglycerides Cholesterol Urine Creatinine Urine Microalbumin Vancomycin Trough Salicylates Acetaminophen 06/08/19 06/08/19 06/09/19 21:55 23:46 04:18 WBC RBC Hgb Hct MCH RDW Plt Count Lymph % (Auto) Seg Neutrophils % Seg Neuts % (Manual) Lymphocytes % (Manual) Monocytes % (Manual) Seg Neutrophils # Seg Neutrophils # Man Lymphocytes # (Manual) Monocytes # (Manual) D-Dimer ABG pH 7.480 H ABG pO2 70.9 L ABG HCO3 32.9 H ABG O2 Saturation ABG Base Excess 8.4 H ABG Hemoglobin 10.3 L VBG pH Oxyhemoglobin 94.8 L Sodium 151 H Potassium 3.3 L Chloride 112.7 H Carbon Dioxide 31 H BUN 24 H Creatinine 0.5 L Glucose 321 H POC Glucose 331 H Hemoglobin A1c Lactic Acid Calcium Phosphorus Magnesium Ferritin AST ALT Alkaline Phosphatase Lactate Dehydrogenase C-Reactive Protein Total Protein Albumin Triglycerides Cholesterol Urine Creatinine Urine Microalbumin Vancomycin Trough Salicylates Acetaminophen 06/09/19 06/09/19 06/09/19 05:35 07:34 07:34 WBC 14.2 H RBC Hgb Hct MCH 27 L RDW Plt Count Lymph % (Auto) Seg Neutrophils % Seg Neuts % (Manual) Lymphocytes % (Manual) Monocytes % (Manual) Seg Neutrophils # Seg Neutrophils # Man Lymphocytes # (Manual) Monocytes # (Manual) D-Dimer ABG pH ABG pO2 ABG HCO3 ABG O2 Saturation ABG Base Excess ABG Hemoglobin VBG pH Oxyhemoglobin Sodium 153 H Potassium 3.0 L Chloride 113.6 H Carbon Dioxide BUN 26 H Creatinine 0.5 L Glucose 306 H POC Glucose 264 H Hemoglobin A1c Lactic Acid Calcium Phosphorus Magnesium Ferritin AST ALT Alkaline Phosphatase Lactate Dehydrogenase 411 H C-Reactive Protein 6.00 H Total Protein Albumin Triglycerides 304 H Cholesterol Urine Creatinine Urine Microalbumin Vancomycin Trough Salicylates Acetaminophen 06/09/19 06/09/19 06/09/19 07:34 07:34 18:29 WBC RBC Hgb Hct MCH RDW Plt Count Lymph % (Auto) Seg Neutrophils % Seg Neuts % (Manual) Lymphocytes % (Manual) Monocytes % (Manual) Seg Neutrophils # Seg Neutrophils # Man Lymphocytes # (Manual) Monocytes # (Manual) D-Dimer 991.99 H ABG pH ABG pO2 ABG HCO3 ABG O2 Saturation ABG Base Excess ABG Hemoglobin VBG pH Oxyhemoglobin Sodium Potassium Chloride Carbon Dioxide BUN Creatinine Glucose POC Glucose 226 H Hemoglobin A1c Lactic Acid Calcium Phosphorus Magnesium Ferritin 1078.0 H AST ALT Alkaline Phosphatase Lactate Dehydrogenase C-Reactive Protein Total Protein Albumin Triglycerides Cholesterol Urine Creatinine Urine Microalbumin Vancomycin Trough Salicylates Acetaminophen 06/09/19 06/09/19 06/10/19 19:22 23:43 04:05 WBC RBC Hgb Hct MCH RDW Plt Count Lymph % (Auto) Seg Neutrophils % Seg Neuts % (Manual) Lymphocytes % (Manual) Monocytes % (Manual) Seg Neutrophils # Seg Neutrophils # Man Lymphocytes # (Manual) Monocytes # (Manual) D-Dimer ABG pH 7.472 H ABG pO2 63.0 L ABG HCO3 31.3 H ABG O2 Saturation 94.5 L ABG Base Excess 6.9 H ABG Hemoglobin VBG pH Oxyhemoglobin 93.0 L Sodium Potassium Chloride 110.1 H Carbon Dioxide BUN 20 H Creatinine 0.4 L Glucose 237 H POC Glucose 177 H Hemoglobin A1c Lactic Acid Calcium Phosphorus Magnesium Ferritin AST ALT Alkaline Phosphatase Lactate Dehydrogenase C-Reactive Protein Total Protein Albumin Triglycerides Cholesterol Urine Creatinine Urine Microalbumin Vancomycin Trough Salicylates Acetaminophen 06/10/19 06/10/19 06/10/19 06:28 12:30 18:08 WBC RBC Hgb Hct MCH RDW Plt Count Lymph % (Auto) Seg Neutrophils % Seg Neuts % (Manual) Lymphocytes % (Manual) Monocytes % (Manual) Seg Neutrophils # Seg Neutrophils # Man Lymphocytes # (Manual) Monocytes # (Manual) D-Dimer ABG pH ABG pO2 ABG HCO3 ABG O2 Saturation ABG Base Excess ABG Hemoglobin VBG pH Oxyhemoglobin Sodium Potassium Chloride Carbon Dioxide BUN Creatinine Glucose POC Glucose 172 H 166 H 172 H Hemoglobin A1c Lactic Acid Calcium Phosphorus Magnesium Ferritin AST ALT Alkaline Phosphatase Lactate Dehydrogenase C-Reactive Protein Total Protein Albumin Triglycerides Cholesterol Urine Creatinine Urine Microalbumin Vancomycin Trough Salicylates Acetaminophen 06/10/19 06/10/19 06/10/19 23:53 Unknown Unknown WBC 13.7 H RBC Hgb Hct MCH RDW Plt Count 84 L Lymph % (Auto) Seg Neutrophils % Seg Neuts % (Manual) Lymphocytes % (Manual) Monocytes % (Manual) Seg Neutrophils # Seg Neutrophils # Man Lymphocytes # (Manual) Monocytes # (Manual) D-Dimer ABG pH ABG pO2 ABG HCO3 ABG O2 Saturation ABG Base Excess ABG Hemoglobin VBG pH Oxyhemoglobin Sodium 148 H Potassium 3.3 L Chloride 111.5 H Carbon Dioxide BUN 20 H Creatinine 0.4 L Glucose 185 H POC Glucose 186 H Hemoglobin A1c Lactic Acid Calcium Phosphorus Magnesium Ferritin AST ALT Alkaline Phosphatase Lactate Dehydrogenase C-Reactive Protein Total Protein Albumin Triglycerides Cholesterol Urine Creatinine Urine Microalbumin Vancomycin Trough Salicylates Acetaminophen 06/11/19 06/11/19 06/11/19 04:31 04:31 04:31 WBC RBC Hgb Hct MCH RDW Plt Count Lymph % (Auto) Seg Neutrophils % Seg Neuts % (Manual) Lymphocytes % (Manual) Monocytes % (Manual) Seg Neutrophils # Seg Neutrophils # Man Lymphocytes # (Manual) Monocytes # (Manual) D-Dimer 1206.09 H ABG pH ABG pO2 ABG HCO3 ABG O2 Saturation ABG Base Excess ABG Hemoglobin VBG pH Oxyhemoglobin Sodium 146 H Potassium 3.3 L Chloride 109.4 H Carbon Dioxide BUN Creatinine 0.5 L Glucose 186 H POC Glucose Hemoglobin A1c Lactic Acid Calcium Phosphorus Magnesium Ferritin 905.9 H AST ALT Alkaline Phosphatase Lactate Dehydrogenase 417 H C-Reactive Protein 3.30 H Total Protein Albumin Triglycerides Cholesterol Urine Creatinine Urine Microalbumin Vancomycin Trough Salicylates Acetaminophen 06/11/19 06/11/19 06/11/19 04:31 05:35 11:41 WBC 17.0 H RBC Hgb Hct MCH 27 L RDW Plt Count Lymph % (Auto) Seg Neutrophils % Seg Neuts % (Manual) Lymphocytes % (Manual) Monocytes % (Manual) Seg Neutrophils # Seg Neutrophils # Man Lymphocytes # (Manual) Monocytes # (Manual) D-Dimer ABG pH ABG pO2 ABG HCO3 ABG O2 Saturation ABG Base Excess ABG Hemoglobin VBG pH Oxyhemoglobin Sodium Potassium Chloride Carbon Dioxide BUN Creatinine Glucose POC Glucose 151 H 209 H Hemoglobin A1c Lactic Acid Calcium Phosphorus Magnesium Ferritin AST ALT Alkaline Phosphatase Lactate Dehydrogenase C-Reactive Protein Total Protein Albumin Triglycerides Cholesterol Urine Creatinine Urine Microalbumin Vancomycin Trough Salicylates Acetaminophen 06/11/19 06/11/19 06/12/19 17:27 23:52 03:58 WBC 14.9 H RBC Hgb Hct MCH RDW Plt Count Lymph % (Auto) Seg Neutrophils % Seg Neuts % (Manual) 72.0 H Lymphocytes % (Manual) 13.0 L Monocytes % (Manual) 13.0 H Seg Neutrophils # Seg Neutrophils # Man 10.7 H Lymphocytes # (Manual) Monocytes # (Manual) 1.9 H D-Dimer ABG pH ABG pO2 ABG HCO3 ABG O2 Saturation ABG Base Excess ABG Hemoglobin VBG pH Oxyhemoglobin Sodium Potassium Chloride Carbon Dioxide BUN Creatinine Glucose POC Glucose 181 H 223 H Hemoglobin A1c Lactic Acid Calcium Phosphorus Magnesium Ferritin AST ALT Alkaline Phosphatase Lactate Dehydrogenase C-Reactive Protein Total Protein Albumin Triglycerides Cholesterol Urine Creatinine Urine Microalbumin Vancomycin Trough Salicylates Acetaminophen 06/12/19 06/12/19 06/12/19 03:58 04:44 10:30 WBC RBC Hgb Hct MCH RDW Plt Count Lymph % (Auto) Seg Neutrophils % Seg Neuts % (Manual) Lymphocytes % (Manual) Monocytes % (Manual) Seg Neutrophils # Seg Neutrophils # Man Lymphocytes # (Manual) Monocytes # (Manual) D-Dimer ABG pH 7.456 H ABG pO2 ABG HCO3 32.7 H ABG O2 Saturation ABG Base Excess 7.7 H ABG Hemoglobin VBG pH Oxyhemoglobin Sodium Potassium 3.4 L Chloride Carbon Dioxide BUN Creatinine 0.4 L Glucose 242 H POC Glucose 203 H Hemoglobin A1c Lactic Acid Calcium Phosphorus Magnesium Ferritin AST 103 H ALT 101 H Alkaline Phosphatase Lactate Dehydrogenase C-Reactive Protein Total Protein 5.9 L Albumin 2.3 L Triglycerides Cholesterol Urine Creatinine Urine Microalbumin Vancomycin Trough Salicylates Acetaminophen 06/12/19 06/13/19 06/13/19 12:01 00:03 02:51 WBC RBC Hgb Hct MCH RDW Plt Count Lymph % (Auto) Seg Neutrophils % Seg Neuts % (Manual) Lymphocytes % (Manual) Monocytes % (Manual) Seg Neutrophils # Seg Neutrophils # Man Lymphocytes # (Manual) Monocytes # (Manual) D-Dimer ABG pH ABG pO2 ABG HCO3 ABG O2 Saturation ABG Base Excess ABG Hemoglobin VBG pH Oxyhemoglobin Sodium Potassium Chloride Carbon Dioxide BUN Creatinine Glucose POC Glucose 178 H 127 H Hemoglobin A1c Lactic Acid Calcium Phosphorus Magnesium Ferritin AST ALT Alkaline Phosphatase Lactate Dehydrogenase 807 H C-Reactive Protein 3.40 H Total Protein Albumin Triglycerides Cholesterol Urine Creatinine Urine Microalbumin Vancomycin Trough Salicylates Acetaminophen 06/13/19 06/13/19 06/13/19 05:17 09:23 09:23 WBC RBC Hgb Hct MCH RDW Plt Count Lymph % (Auto) Seg Neutrophils % Seg Neuts % (Manual) Lymphocytes % (Manual) Monocytes % (Manual) Seg Neutrophils # Seg Neutrophils # Man Lymphocytes # (Manual) Monocytes # (Manual) D-Dimer 1401.68 H ABG pH ABG pO2 ABG HCO3 ABG O2 Saturation ABG Base Excess ABG Hemoglobin VBG pH Oxyhemoglobin Sodium Potassium Chloride Carbon Dioxide BUN Creatinine Glucose POC Glucose 161 H Hemoglobin A1c Lactic Acid Calcium Phosphorus Magnesium Ferritin 1942.0 H AST ALT Alkaline Phosphatase Lactate Dehydrogenase C-Reactive Protein Total Protein Albumin Triglycerides Cholesterol Urine Creatinine Urine Microalbumin Vancomycin Trough Salicylates Acetaminophen 06/13/19 06/13/19 06/14/19 12:03 18:17 00:03 WBC RBC Hgb Hct MCH RDW Plt Count Lymph % (Auto) Seg Neutrophils % Seg Neuts % (Manual) Lymphocytes % (Manual) Monocytes % (Manual) Seg Neutrophils # Seg Neutrophils # Man Lymphocytes # (Manual) Monocytes # (Manual) D-Dimer ABG pH ABG pO2 ABG HCO3 ABG O2 Saturation ABG Base Excess ABG Hemoglobin VBG pH Oxyhemoglobin Sodium Potassium Chloride Carbon Dioxide BUN Creatinine Glucose POC Glucose 147 H 172 H 168 H Hemoglobin A1c Lactic Acid Calcium Phosphorus Magnesium Ferritin AST ALT Alkaline Phosphatase Lactate Dehydrogenase C-Reactive Protein Total Protein Albumin Triglycerides Cholesterol Urine Creatinine Urine Microalbumin Vancomycin Trough Salicylates Acetaminophen 06/14/19 06/14/19 06/14/19 05:43 12:22 14:44 WBC 14.0 H RBC 5.86 H Hgb 16.2 H D Hct 49.3 H D MCH RDW Plt Count Lymph % (Auto) Seg Neutrophils % Seg Neuts % (Manual) 81.0 H Lymphocytes % (Manual) 10.0 L Monocytes % (Manual) Seg Neutrophils # Seg Neutrophils # Man 11.3 H Lymphocytes # (Manual) Monocytes # (Manual) 1.0 H D-Dimer ABG pH ABG pO2 ABG HCO3 ABG O2 Saturation ABG Base Excess ABG Hemoglobin VBG pH Oxyhemoglobin Sodium Potassium Chloride Carbon Dioxide BUN Creatinine Glucose POC Glucose 178 H 218 H Hemoglobin A1c Lactic Acid Calcium Phosphorus Magnesium Ferritin AST ALT Alkaline Phosphatase Lactate Dehydrogenase C-Reactive Protein Total Protein Albumin Triglycerides Cholesterol Urine Creatinine Urine Microalbumin Vancomycin Trough Salicylates Acetaminophen 06/14/19 06/14/19 06/14/19 14:44 16:35 18:01 WBC RBC Hgb Hct MCH RDW Plt Count Lymph % (Auto) Seg Neutrophils % Seg Neuts % (Manual) Lymphocytes % (Manual) Monocytes % (Manual) Seg Neutrophils # Seg Neutrophils # Man Lymphocytes # (Manual) Monocytes # (Manual) D-Dimer ABG pH 7.488 H ABG pO2 66.1 L ABG HCO3 30.2 H ABG O2 Saturation 94.7 L ABG Base Excess 6.3 H ABG Hemoglobin VBG pH Oxyhemoglobin 93.3 L Sodium Potassium 3.4 L Chloride Carbon Dioxide BUN Creatinine 0.3 L Glucose 296 H POC Glucose 215 H Hemoglobin A1c Lactic Acid Calcium Phosphorus Magnesium Ferritin AST ALT Alkaline Phosphatase Lactate Dehydrogenase C-Reactive Protein Total Protein Albumin Triglycerides Cholesterol Urine Creatinine Urine Microalbumin Vancomycin Trough Salicylates Acetaminophen 06/15/19 06/15/19 06/15/19 00:34 04:00 04:00 WBC RBC Hgb Hct MCH RDW Plt Count Lymph % (Auto) Seg Neutrophils % Seg Neuts % (Manual) Lymphocytes % (Manual) Monocytes % (Manual) Seg Neutrophils # Seg Neutrophils # Man Lymphocytes # (Manual) Monocytes # (Manual) D-Dimer 836.6 H ABG pH ABG pO2 ABG HCO3 ABG O2 Saturation ABG Base Excess ABG Hemoglobin VBG pH Oxyhemoglobin Sodium Potassium Chloride Carbon Dioxide BUN Creatinine Glucose POC Glucose 229 H Hemoglobin A1c Lactic Acid Calcium Phosphorus Magnesium Ferritin 908.8 H AST ALT Alkaline Phosphatase Lactate Dehydrogenase C-Reactive Protein Total Protein Albumin Triglycerides Cholesterol Urine Creatinine Urine Microalbumin Vancomycin Trough Salicylates Acetaminophen 06/15/19 06/15/19 06/15/19 04:00 04:00 06:24 WBC 15.6 H RBC Hgb Hct MCH 27 L RDW Plt Count Lymph % (Auto) 10.9 L Seg Neutrophils % 84.1 H Seg Neuts % (Manual) Lymphocytes % (Manual) Monocytes % (Manual) Seg Neutrophils # 13.1 H Seg Neutrophils # Man Lymphocytes # (Manual) Monocytes # (Manual) D-Dimer ABG pH ABG pO2 ABG HCO3 ABG O2 Saturation ABG Base Excess ABG Hemoglobin VBG pH Oxyhemoglobin Sodium Potassium 3.3 L Chloride Carbon Dioxide 31 H D BUN Creatinine 0.4 L Glucose 199 H POC Glucose 192 H Hemoglobin A1c Lactic Acid Calcium Phosphorus Magnesium Ferritin AST ALT Alkaline Phosphatase Lactate Dehydrogenase 386 H C-Reactive Protein 17.00 H Total Protein Albumin Triglycerides Cholesterol Urine Creatinine Urine Microalbumin Vancomycin Trough Salicylates Acetaminophen 06/15/19 06/15/19 06/15/19 12:05 17:02 21:00 WBC RBC Hgb Hct MCH RDW Plt Count Lymph % (Auto) Seg Neutrophils % Seg Neuts % (Manual) Lymphocytes % (Manual) Monocytes % (Manual) Seg Neutrophils # Seg Neutrophils # Man Lymphocytes # (Manual) Monocytes # (Manual) D-Dimer ABG pH ABG pO2 ABG HCO3 ABG O2 Saturation ABG Base Excess ABG Hemoglobin VBG pH Oxyhemoglobin Sodium Potassium Chloride Carbon Dioxide BUN Creatinine Glucose POC Glucose 271 H 239 H 211 H Hemoglobin A1c Lactic Acid Calcium Phosphorus Magnesium Ferritin AST ALT Alkaline Phosphatase Lactate Dehydrogenase C-Reactive Protein Total Protein Albumin Triglycerides Cholesterol Urine Creatinine Urine Microalbumin Vancomycin Trough Salicylates Acetaminophen 06/16/19 06/16/19 06/16/19 00:13 05:16 05:16 WBC 12.4 H RBC Hgb Hct MCH RDW Plt Count Lymph % (Auto) Seg Neutrophils % Seg Neuts % (Manual) Lymphocytes % (Manual) Monocytes % (Manual) Seg Neutrophils # Seg Neutrophils # Man Lymphocytes # (Manual) Monocytes # (Manual) D-Dimer ABG pH ABG pO2 ABG HCO3 ABG O2 Saturation ABG Base Excess ABG Hemoglobin VBG pH Oxyhemoglobin Sodium Potassium 3.4 L Chloride Carbon Dioxide BUN Creatinine 0.5 L Glucose 215 H POC Glucose 230 H Hemoglobin A1c Lactic Acid Calcium Phosphorus Magnesium Ferritin AST ALT Alkaline Phosphatase Lactate Dehydrogenase C-Reactive Protein Total Protein Albumin Triglycerides Cholesterol Urine Creatinine Urine Microalbumin Vancomycin Trough Salicylates Acetaminophen 06/16/19 06/16/19 06/16/19 08:05 12:17 16:44 WBC RBC Hgb Hct MCH RDW Plt Count Lymph % (Auto) Seg Neutrophils % Seg Neuts % (Manual) Lymphocytes % (Manual) Monocytes % (Manual) Seg Neutrophils # Seg Neutrophils # Man Lymphocytes # (Manual) Monocytes # (Manual) D-Dimer ABG pH ABG pO2 ABG HCO3 ABG O2 Saturation ABG Base Excess ABG Hemoglobin VBG pH Oxyhemoglobin Sodium Potassium Chloride Carbon Dioxide BUN Creatinine Glucose POC Glucose 220 H 195 H 223 H Hemoglobin A1c Lactic Acid Calcium Phosphorus Magnesium Ferritin AST ALT Alkaline Phosphatase Lactate Dehydrogenase C-Reactive Protein Total Protein Albumin Triglycerides Cholesterol Urine Creatinine Urine Microalbumin Vancomycin Trough Salicylates Acetaminophen 06/17/19 06/17/19 06/17/19 00:07 05:42 12:07 WBC RBC Hgb Hct MCH RDW Plt Count Lymph % (Auto) Seg Neutrophils % Seg Neuts % (Manual) Lymphocytes % (Manual) Monocytes % (Manual) Seg Neutrophils # Seg Neutrophils # Man Lymphocytes # (Manual) Monocytes # (Manual) D-Dimer ABG pH ABG pO2 ABG HCO3 ABG O2 Saturation ABG Base Excess ABG Hemoglobin VBG pH Oxyhemoglobin Sodium Potassium Chloride Carbon Dioxide BUN Creatinine Glucose POC Glucose 201 H 191 H 269 H Hemoglobin A1c Lactic Acid Calcium Phosphorus Magnesium Ferritin AST ALT Alkaline Phosphatase Lactate Dehydrogenase C-Reactive Protein Total Protein Albumin Triglycerides Cholesterol Urine Creatinine Urine Microalbumin Vancomycin Trough Salicylates Acetaminophen 06/17/19 06/18/19 06/18/19 17:40 00:05 05:32 WBC RBC Hgb Hct MCH RDW Plt Count Lymph % (Auto) Seg Neutrophils % Seg Neuts % (Manual) Lymphocytes % (Manual) Monocytes % (Manual) Seg Neutrophils # Seg Neutrophils # Man Lymphocytes # (Manual) Monocytes # (Manual) D-Dimer ABG pH ABG pO2 ABG HCO3 ABG O2 Saturation ABG Base Excess ABG Hemoglobin VBG pH Oxyhemoglobin Sodium Potassium Chloride Carbon Dioxide BUN Creatinine Glucose POC Glucose 266 H 222 H 273 H Hemoglobin A1c Lactic Acid Calcium Phosphorus Magnesium Ferritin AST ALT Alkaline Phosphatase Lactate Dehydrogenase C-Reactive Protein Total Protein Albumin Triglycerides Cholesterol Urine Creatinine Urine Microalbumin Vancomycin Trough Salicylates Acetaminophen 06/18/19 06/18/19 06/18/19 11:59 17:40 17:58 WBC RBC Hgb Hct MCH RDW Plt Count Lymph % (Auto) Seg Neutrophils % Seg Neuts % (Manual) Lymphocytes % (Manual) Monocytes % (Manual) Seg Neutrophils # Seg Neutrophils # Man Lymphocytes # (Manual) Monocytes # (Manual) D-Dimer ABG pH ABG pO2 ABG HCO3 ABG O2 Saturation ABG Base Excess ABG Hemoglobin VBG pH Oxyhemoglobin Sodium Potassium Chloride Carbon Dioxide BUN Creatinine Glucose POC Glucose 299 H 272 H 301 H Hemoglobin A1c Lactic Acid Calcium Phosphorus Magnesium Ferritin AST ALT Alkaline Phosphatase Lactate Dehydrogenase C-Reactive Protein Total Protein Albumin Triglycerides Cholesterol Urine Creatinine Urine Microalbumin Vancomycin Trough Salicylates Acetaminophen 06/18/19 06/18/19 06/19/19 20:48 23:30 06:05 WBC RBC Hgb Hct MCH RDW Plt Count Lymph % (Auto) Seg Neutrophils % Seg Neuts % (Manual) Lymphocytes % (Manual) Monocytes % (Manual) Seg Neutrophils # Seg Neutrophils # Man Lymphocytes # (Manual) Monocytes # (Manual) D-Dimer ABG pH ABG pO2 ABG HCO3 ABG O2 Saturation ABG Base Excess ABG Hemoglobin VBG pH Oxyhemoglobin Sodium Potassium Chloride Carbon Dioxide BUN Creatinine Glucose POC Glucose 282 H 283 H 294 H Hemoglobin A1c Lactic Acid Calcium Phosphorus Magnesium Ferritin AST ALT Alkaline Phosphatase Lactate Dehydrogenase C-Reactive Protein Total Protein Albumin Triglycerides Cholesterol Urine Creatinine Urine Microalbumin Vancomycin Trough Salicylates Acetaminophen 06/19/19 06/19/19 06/20/19 12:50 18:34 01:27 WBC RBC Hgb Hct MCH RDW Plt Count Lymph % (Auto) Seg Neutrophils % Seg Neuts % (Manual) Lymphocytes % (Manual) Monocytes % (Manual) Seg Neutrophils # Seg Neutrophils # Man Lymphocytes # (Manual) Monocytes # (Manual) D-Dimer ABG pH ABG pO2 ABG HCO3 ABG O2 Saturation ABG Base Excess ABG Hemoglobin VBG pH Oxyhemoglobin Sodium Potassium Chloride Carbon Dioxide BUN Creatinine Glucose POC Glucose 287 H 328 H 252 H Hemoglobin A1c Lactic Acid Calcium Phosphorus Magnesium Ferritin AST ALT Alkaline Phosphatase Lactate Dehydrogenase C-Reactive Protein Total Protein Albumin Triglycerides Cholesterol Urine Creatinine Urine Microalbumin Vancomycin Trough Salicylates Acetaminophen 06/20/19 06/20/19 06/20/19 04:50 04:54 12:46 WBC RBC Hgb Hct MCH RDW Plt Count Lymph % (Auto) Seg Neutrophils % Seg Neuts % (Manual) Lymphocytes % (Manual) Monocytes % (Manual) Seg Neutrophils # Seg Neutrophils # Man Lymphocytes # (Manual) Monocytes # (Manual) D-Dimer ABG pH ABG pO2 ABG HCO3 ABG O2 Saturation ABG Base Excess ABG Hemoglobin VBG pH Oxyhemoglobin Sodium 147 H Potassium Chloride Carbon Dioxide 31 H BUN Creatinine 0.4 L Glucose 323 H POC Glucose 290 H 278 H Hemoglobin A1c Lactic Acid Calcium Phosphorus Magnesium Ferritin AST ALT Alkaline Phosphatase Lactate Dehydrogenase C-Reactive Protein Total Protein Albumin Triglycerides Cholesterol Urine Creatinine Urine Microalbumin Vancomycin Trough Salicylates Acetaminophen 06/20/19 06/21/19 06/21/19 18:06 00:17 05:27 WBC RBC Hgb Hct MCH RDW Plt Count Lymph % (Auto) Seg Neutrophils % Seg Neuts % (Manual) Lymphocytes % (Manual) Monocytes % (Manual) Seg Neutrophils # Seg Neutrophils # Man Lymphocytes # (Manual) Monocytes # (Manual) D-Dimer ABG pH ABG pO2 ABG HCO3 ABG O2 Saturation ABG Base Excess ABG Hemoglobin VBG pH Oxyhemoglobin Sodium Potassium Chloride Carbon Dioxide BUN Creatinine Glucose POC Glucose 292 H 297 H 277 H Hemoglobin A1c Lactic Acid Calcium Phosphorus Magnesium Ferritin AST ALT Alkaline Phosphatase Lactate Dehydrogenase C-Reactive Protein Total Protein Albumin Triglycerides Cholesterol Urine Creatinine Urine Microalbumin Vancomycin Trough Salicylates Acetaminophen 06/21/19 12:17 WBC RBC Hgb Hct MCH RDW Plt Count Lymph % (Auto) Seg Neutrophils % Seg Neuts % (Manual) Lymphocytes % (Manual) Monocytes % (Manual) Seg Neutrophils # Seg Neutrophils # Man Lymphocytes # (Manual) Monocytes # (Manual) D-Dimer ABG pH ABG pO2 ABG HCO3 ABG O2 Saturation ABG Base Excess ABG Hemoglobin VBG pH Oxyhemoglobin Sodium Potassium Chloride Carbon Dioxide BUN Creatinine Glucose POC Glucose 302 H Hemoglobin A1c Lactic Acid Calcium Phosphorus Magnesium Ferritin AST ALT Alkaline Phosphatase Lactate Dehydrogenase C-Reactive Protein Total Protein Albumin Triglycerides Cholesterol Urine Creatinine Urine Microalbumin Vancomycin Trough Salicylates Acetaminophen Allied health notes reviewed: nursing
[2019-06-21] MEDS: QUEtiapine 25 MG TAB PO SCH (21:41)
[2019-06-22] MEDS: INSULIN GLARGINE 100 UNITS/ML SUB-Q SCH (00:07)
[2019-06-22] MEDS: INSULIN REGULAR, HUMAN 100 UNITS/1 ML SUB-Q SCH ×5 (00:08→23:35)
[2019-06-22] MEDS: SENNOSIDES 8.6 MG TAB PO SCH ×2 (09:24→22:31)
[2019-06-22] MEDS: FAMOTIDINE 20 MG TAB PO SCH ×2 (09:24→22:31)
[2019-06-22] MEDS: HEPARIN 5,000 UNIT/1 ML VIAL SUB-Q SCH ×2 (09:24→22:32)
[2019-06-22] MEDS: amLODIPine 5 MG TAB PO SCH (09:24)
[2019-06-22] MEDS: LOSARTAN 50 MG TAB PO SCH (09:25)
--- NOTE | 2019-06-22 12:25 | Progress Note ---
Assessment and Plan Cultures: Blood culture 06/03/2019 Micrococcus 1 of 4 Urine culture 06/03/2019 no growth Assessment: 48 year old female with history of diabetes, hypertension admitted on 06/03/2019 due to acute altered mental status and shortness of breath, recently returned back from [place]: #Severe sepsis: improved. #Bilateral pneumonia secondary to COVID-19: S/P plaquenil. Off abx. #Acute hypoxemic respiratory failure/ARDS: extubated 06/13/2019. #Acute encephalopathy: Likely due to #1 and high sodium #SHARITA: improved. #Diabetes with DKA #Hypernatremia per IMS, better #Micrococcus in blood culture: 1 of 4 likely a contaminant. Recommendations: continue supportive care Even though COVID PCR tests x 2 are now negative, it would be prudent to maintain isolation while inpatient. The negative tests will hopefully help with placement if needed Mayo Medina MD, FACP [facility] ([facility]) C: [phone] O: [phone] F: [phone] Subjective Date of service: 06/22/19 Principal diagnosis: Ac hypoxemic resp failure; Bob. PNA; PUI CVOVID-19; DKA; Severe sepsis Interval history: No fever. Remains on high flow oxygen by MD but oxygen being weaned. Doing well per RN. Objective - Exam Narrative Exam: Physical Exam (reviewed in chart due to PPE conservation) Constitutional: limited due to PPE conservation strategy Head, Ears, Nose: limited due to PPE conservation strategy Eyes: limited due to PPE conservation strategy Neck: limited due to PPE conservation strategy Oral: limited due to PPE conservation strategy Cardiovascular: limited due to PPE conservation strategy Respiratory: limited due to PPE conservation strategy GI: limited due to PPE conservation strategy Musculoskeletal: limited due to PPE conservation strategy Skin: limited due to PPE conservation strategy Hem/Lymphatic: limited due to PPE conservation strategy Psych: limited due to PPE conservation strategy Neurological: limited due to PPE conservation strategy - Constitutional Vitals: Vital Signs Temp Pulse Resp BP Pulse Ox 98.5 F 88 25 H 157/99 96 06/22/19 08:00 06/22/19 10:00 06/22/19 10:00 06/22/19 10:00 06/22/19 11:36 Temperature -Last 24 Hours Temperature 98.5 F Temperature 98.3 F Temperature 97.9 F Temperature 98.5 F Temperature 97.1 F - Labs CBC & Chem 7: 06/20/19 04:50 06/20/19 04:50 Labs: Abnormal lab results 06/21/19 06/21/19 06/22/19 Range/Units 12:17 19:23 00:11 POC Glucose 302 H 348 H 232 H (70-105) 06/22/19 Range/Units 05:30 POC Glucose 313 H (70-105)
--- NOTE | 2019-06-22 13:24 | Progress Note ---
Assessment and Plan Sepsis secondary to pneumonia-with hypothermia Acute hypoxic respiratory failure ,s/p mechanical ventilation POSITIVE COVID 19 - severe COVID pneumonia. -Transmission likely from community recent travel to [place]. - Ferritin at 1,037-->1,649-->1,319. LDH 673-->449. CRP 14-->9. Ddimer 434-->1319 DKA, treated Diabetes mellitus with uncontrolled blood sugar Acute metabolic encephalopathy, improving Pneumonia Leukocytosis Paroxysmal atrial fibrillation likely new onset Severe metabolic acidosis-improving Hypernatremia-improving Hypokalemia Oropharyngeal dysphagia -Continue with enteric nutritional support -Continue aspiration precautions, HOB>40 - Continue supplemental oxygen to keep O2 sats >92% -If persistent weakness, may benefit from MRI of the brain to evaluate for intra-cranial pathology. This could be a combination of critical illness myopathy or the neurologic manifestations of COVID -Recommend retesting for COVID-19, she is a good candidate for LTACH to wean supplemental oxygen and low level rehab -ABG, CXR prn -Continue all supportive care as documented - Monitor glycemic control, with target blood glucose 140-180 mg/dL while critically ill. -Avoid hypoglycemia - Goal to keep Potassium 4 and Magnesium 2 to optimize respiratory muscle function -VTE prophylaxis on heparin -Stress ulcer prophylaxis- Famotidine -Continue to avoid nephrotoxins, adjust all medications for CrCL and GFR -Follow up BMP and CBC prn - Continue bronchodilators with pulmonary hygiene - Continue to maintain of sleep-wake cycle, avoid delirium - PT/OT/ROM exercises - Continue mobility protocol and skin assessment per protocol for pressure ulcer prevention - s/p Influenza and pneumonia vaccination -Continue COVID isolation precautions per [facility] protocol -Check serial Ferritin, LDH, D-Dimer, CRP per [facility] protocol -s/p hydroxychloroquine (total 5 days) Day 5 of 5 and zinc -s/p antibiotics for CAP s/p steroids s/p Acterma - continue other care per attending / other consultants CONDITION: FAIR PROGNOSIS: GUARDED CODE STATUS: FULL CODE Subjective Date of service: 06/22/19 Principal diagnosis: Ac hypoxemic resp failure; Bob. PNA; PUI CVOVID-19; DKA; Severe sepsis Interval history: Follow up for: Acute hypoxemic respiratory failure s/p MVS; COVID 19 pneumonia;DKA ; Acute metabolic encephalopathy; Sepsis; Fevers; SHARITA; Seen and examined. Vitals, labs, medications, chart and imaging reviewed. Extubated, On going need for high flow oxygen therapy No fevers overnight, more awake and alert. Tolerating tube feeding via SBFT Objective Vital Signs - 12hr 06/22/19 06/22/19 06/22/19 02:00 02:17 03:00 Temperature Pulse Rate 84 81 Pulse Rate [ From Monitor] Respiratory 22 20 Rate Blood Pressure 135/95 108/69 O2 Sat by Pulse 99 99 99 Oximetry 06/22/19 06/22/19 06/22/19 04:00 05:00 06:00 Temperature 98.3 F Pulse Rate 90 83 82 Pulse Rate [ 87 From Monitor] Respiratory 25 H 20 20 Rate Blood Pressure 163/104 147/89 147/89 O2 Sat by Pulse 99 98 97 Oximetry 06/22/19 06/22/19 06/22/19 07:00 08:00 09:00 Temperature 98.5 F Pulse Rate 86 88 81 Pulse Rate [ 88 From Monitor] Respiratory 16 26 H 25 H Rate Blood Pressure 169/97 172/107 158/105 O2 Sat by Pulse 99 98 98 Oximetry 06/22/19 06/22/19 06/22/19 09:24 09:25 10:00 Temperature Pulse Rate 96 H 92 H 88 Pulse Rate [ From Monitor] Respiratory 25 H Rate Blood Pressure 158/105 158/105 157/99 O2 Sat by Pulse 98 Oximetry 06/22/19 06/22/19 11:36 12:00 Temperature 98.4 F Pulse Rate Pulse Rate [ 95 H From Monitor] Respiratory 15 Rate Blood Pressure O2 Sat by Pulse 96 Oximetry Constitutional: no acute distress, alert, other (Atraumatic, normocephalic, ) Eyes: non-icteric ENT: oropharynx moist Neck: supple, no lymphadenopathy, no JVD Effort: mildly labored Ascultation: Bilateral: clear, diminished breath sounds, rales (base), rhonchi Percussion: Bilateral: not dull Cardiovascular: irregular rhythm, other (S1,S2, no murmurs) Gastrointestinal: normoactive bowel sounds, soft, non-tender, tender Integumentary: normal Extremities: no cyanosis, no edema, pulses normal, no ischemia or petechiae Neurologic: normal mental status, non-focal exam, pupils equal and round, motor strength normal and (generally weak) Psychiatric: mood appropriate, affect normal CBC and BMP: 06/20/19 04:50 06/20/19 04:50 ABG, PT/INR, D-dimer: ABG ABG pH 7.488 pH Units (7.350-7.450) H 06/14/19 16:35 ABG pCO2 40.7 mm Hg 06/14/19 16:35 ABG pO2 66.1 mm Hg (80.0-90.0) L 06/14/19 16:35 ABG O2 Saturation 94.7 % (95.0-99.0) L 06/14/19 16:35 PT/INR, D-dimer D-Dimer 836.6 ng/mlDDU (0-234) H 06/15/19 04:00 Abnormal lab findings: Abnormal Labs 06/03/19 06/03/19 06/03/19 10:59 11:15 11:48 WBC RBC Hgb Hct MCH RDW Plt Count Lymph % (Auto) Seg Neutrophils % Seg Neuts % (Manual) Lymphocytes % (Manual) Monocytes % (Manual) Seg Neutrophils # Seg Neutrophils # Man Lymphocytes # (Manual) Monocytes # (Manual) D-Dimer ABG pH ABG pO2 ABG HCO3 ABG O2 Saturation ABG Base Excess ABG Hemoglobin VBG pH Oxyhemoglobin Sodium Potassium Chloride Carbon Dioxide BUN Creatinine Glucose POC Glucose 372 H Hemoglobin A1c Lactic Acid Calcium Phosphorus 11.70 H Magnesium 4.40 H Ferritin AST ALT Alkaline Phosphatase Lactate Dehydrogenase C-Reactive Protein Total Protein Albumin Triglycerides Cholesterol Urine Creatinine 37.4 H Urine Microalbumin 65.1 H Vancomycin Trough Salicylates Acetaminophen 06/03/19 06/03/19 06/03/19 11:51 11:51 11:51 WBC 23.3 H RBC 6.43 H Hgb 17.7 H Hct 59.9 H* MCH RDW 17.1 H Plt Count Lymph % (Auto) Seg Neutrophils % Seg Neuts % (Manual) 71.0 H Lymphocytes % (Manual) 11.0 L Monocytes % (Manual) 8.0 H Seg Neutrophils # Seg Neutrophils # Man 16.5 H Lymphocytes # (Manual) Monocytes # (Manual) 1.9 H D-Dimer ABG pH ABG pO2 ABG HCO3 ABG O2 Saturation ABG Base Excess ABG Hemoglobin VBG pH Oxyhemoglobin Sodium Potassium Chloride Carbon Dioxide 4 L* BUN 41 H Creatinine 1.8 H Glucose 636 H* POC Glucose Hemoglobin A1c Lactic Acid 3.20 H* Calcium 10.9 H Phosphorus Magnesium Ferritin AST 43 H ALT Alkaline Phosphatase 147 H Lactate Dehydrogenase 673 H C-Reactive Protein 14.70 H Total Protein 8.9 H Albumin Triglycerides Cholesterol Urine Creatinine Urine Microalbumin Vancomycin Trough Salicylates Acetaminophen 06/03/19 06/03/19 06/03/19 11:51 11:51 11:51 WBC RBC Hgb Hct MCH RDW Plt Count Lymph % (Auto) Seg Neutrophils % Seg Neuts % (Manual) Lymphocytes % (Manual) Monocytes % (Manual) Seg Neutrophils # Seg Neutrophils # Man Lymphocytes # (Manual) Monocytes # (Manual) D-Dimer ABG pH ABG pO2 ABG HCO3 ABG O2 Saturation ABG Base Excess ABG Hemoglobin VBG pH 6.901 L* Oxyhemoglobin Sodium Potassium Chloride Carbon Dioxide BUN Creatinine Glucose POC Glucose Hemoglobin A1c Lactic Acid Calcium Phosphorus Magnesium Ferritin AST ALT Alkaline Phosphatase Lactate Dehydrogenase C-Reactive Protein Total Protein Albumin Triglycerides Cholesterol Urine Creatinine Urine Microalbumin Vancomycin Trough Salicylates < 0.3 L Acetaminophen < 5.0 L 06/03/19 06/03/19 06/03/19 11:51 11:51 12:34 WBC RBC Hgb Hct MCH RDW Plt Count Lymph % (Auto) Seg Neutrophils % Seg Neuts % (Manual) Lymphocytes % (Manual) Monocytes % (Manual) Seg Neutrophils # Seg Neutrophils # Man Lymphocytes # (Manual) Monocytes # (Manual) D-Dimer 4311.60 H ABG pH ABG pO2 ABG HCO3 ABG O2 Saturation ABG Base Excess ABG Hemoglobin VBG pH Oxyhemoglobin Sodium Potassium Chloride Carbon Dioxide BUN Creatinine Glucose POC Glucose Hemoglobin A1c Lactic Acid 5.20 H* Calcium Phosphorus Magnesium Ferritin 1037.0 H AST ALT Alkaline Phosphatase Lactate Dehydrogenase C-Reactive Protein Total Protein Albumin Triglycerides Cholesterol Urine Creatinine Urine Microalbumin Vancomycin Trough Salicylates Acetaminophen 06/03/19 06/03/19 06/03/19 14:30 16:03 17:00 WBC RBC Hgb Hct MCH RDW Plt Count Lymph % (Auto) Seg Neutrophils % Seg Neuts % (Manual) Lymphocytes % (Manual) Monocytes % (Manual) Seg Neutrophils # Seg Neutrophils # Man Lymphocytes # (Manual) Monocytes # (Manual) D-Dimer ABG pH 6.880 L* ABG pO2 489.9 H ABG HCO3 7.1 L ABG O2 Saturation 99.6 H ABG Base Excess -26.1 L ABG Hemoglobin 16.2 H VBG pH Oxyhemoglobin Sodium Potassium Chloride Carbon Dioxide BUN Creatinine Glucose POC Glucose 335 H Hemoglobin A1c 9.6 H Lactic Acid Calcium Phosphorus Magnesium Ferritin AST ALT Alkaline Phosphatase Lactate Dehydrogenase C-Reactive Protein Total Protein Albumin Triglycerides Cholesterol Urine Creatinine Urine Microalbumin Vancomycin Trough Salicylates Acetaminophen 06/03/19 06/03/19 06/03/19 18:14 18:24 19:00 WBC RBC Hgb Hct MCH RDW Plt Count Lymph % (Auto) Seg Neutrophils % Seg Neuts % (Manual) Lymphocytes % (Manual) Monocytes % (Manual) Seg Neutrophils # Seg Neutrophils # Man Lymphocytes # (Manual) Monocytes # (Manual) D-Dimer ABG pH 7.057 L* ABG pO2 97.2 H ABG HCO3 5.5 L ABG O2 Saturation ABG Base Excess -23.0 L ABG Hemoglobin 18.1 H VBG pH Oxyhemoglobin 94.4 L Sodium Potassium Chloride Carbon Dioxide BUN Creatinine Glucose POC Glucose 285 H Hemoglobin A1c Lactic Acid 3.40 H* Calcium Phosphorus Magnesium Ferritin AST ALT Alkaline Phosphatase Lactate Dehydrogenase C-Reactive Protein Total Protein Albumin Triglycerides Cholesterol Urine Creatinine Urine Microalbumin Vancomycin Trough Salicylates Acetaminophen 06/03/19 06/03/19 06/03/19 19:00 19:00 19:52 WBC RBC Hgb Hct MCH RDW Plt Count Lymph % (Auto) Seg Neutrophils % Seg Neuts % (Manual) Lymphocytes % (Manual) Monocytes % (Manual) Seg Neutrophils # Seg Neutrophils # Man Lymphocytes # (Manual) Monocytes # (Manual) D-Dimer ABG pH ABG pO2 ABG HCO3 ABG O2 Saturation ABG Base Excess ABG Hemoglobin VBG pH Oxyhemoglobin Sodium 151 H Potassium Chloride 120.8 H Carbon Dioxide 6 L* BUN 33 H Creatinine 1.4 H Glucose 339 H POC Glucose 316 H Hemoglobin A1c Lactic Acid Calcium Phosphorus Magnesium Ferritin AST 47 H ALT Alkaline Phosphatase 130 H Lactate Dehydrogenase C-Reactive Protein Total Protein Albumin 3.7 L Triglycerides 424 H Cholesterol 250 H Urine Creatinine Urine Microalbumin Vancomycin Trough Salicylates Acetaminophen 06/03/19 06/03/19 06/03/19 20:21 20:21 21:01 WBC RBC Hgb Hct MCH RDW Plt Count Lymph % (Auto) Seg Neutrophils % Seg Neuts % (Manual) Lymphocytes % (Manual) Monocytes % (Manual) Seg Neutrophils # Seg Neutrophils # Man Lymphocytes # (Manual) Monocytes # (Manual) D-Dimer ABG pH ABG pO2 ABG HCO3 ABG O2 Saturation ABG Base Excess ABG Hemoglobin VBG pH Oxyhemoglobin Sodium 153 H Potassium Chloride 121.8 H Carbon Dioxide 6 L* BUN 34 H Creatinine 1.3 H Glucose 324 H POC Glucose 245 H Hemoglobin A1c Lactic Acid 3.10 H* Calcium Phosphorus Magnesium Ferritin AST ALT Alkaline Phosphatase Lactate Dehydrogenase C-Reactive Protein Total Protein Albumin Triglycerides Cholesterol Urine Creatinine Urine Microalbumin Vancomycin Trough Salicylates Acetaminophen 06/03/19 06/03/19 06/03/19 21:25 21:32 22:42 WBC RBC Hgb Hct MCH RDW Plt Count Lymph % (Auto) Seg Neutrophils % Seg Neuts % (Manual) Lymphocytes % (Manual) Monocytes % (Manual) Seg Neutrophils # Seg Neutrophils # Man Lymphocytes # (Manual) Monocytes # (Manual) D-Dimer ABG pH 7.172 L* ABG pO2 107.2 H ABG HCO3 5.2 L ABG O2 Saturation ABG Base Excess -20.5 L ABG Hemoglobin 17.3 H VBG pH Oxyhemoglobin Sodium 155 H Potassium 2.6 L* D Chloride 130.1 H Carbon Dioxide 5 L* BUN 24 H Creatinine Glucose 212 H POC Glucose 225 H Hemoglobin A1c Lactic Acid Calcium 5.8 L* D Phosphorus Magnesium Ferritin AST ALT Alkaline Phosphatase Lactate Dehydrogenase C-Reactive Protein Total Protein Albumin Triglycerides Cholesterol Urine Creatinine Urine Microalbumin Vancomycin Trough Salicylates Acetaminophen 06/03/19 06/04/19 06/04/19 23:32 00:04 01:25 WBC RBC Hgb Hct MCH RDW Plt Count Lymph % (Auto) Seg Neutrophils % Seg Neuts % (Manual) Lymphocytes % (Manual) Monocytes % (Manual) Seg Neutrophils # Seg Neutrophils # Man Lymphocytes # (Manual) Monocytes # (Manual) D-Dimer ABG pH ABG pO2 ABG HCO3 ABG O2 Saturation ABG Base Excess ABG Hemoglobin VBG pH Oxyhemoglobin Sodium 151 H 151 H Potassium 1.5 L* D Chloride 139.0 H 124.7 H Carbon Dioxide 3 L* 9 L* BUN 31 H Creatinine 0.2 L D Glucose 117 H 241 H POC Glucose 231 H Hemoglobin A1c Lactic Acid Calcium 3.1 L* D Phosphorus Magnesium Ferritin AST ALT Alkaline Phosphatase Lactate Dehydrogenase C-Reactive Protein Total Protein Albumin Triglycerides Cholesterol Urine Creatinine Urine Microalbumin Vancomycin Trough Salicylates Acetaminophen 06/04/19 06/04/19 06/04/19 01:34 02:45 03:21 WBC RBC Hgb Hct MCH RDW Plt Count Lymph % (Auto) Seg Neutrophils % Seg Neuts % (Manual) Lymphocytes % (Manual) Monocytes % (Manual) Seg Neutrophils # Seg Neutrophils # Man Lymphocytes # (Manual) Monocytes # (Manual) D-Dimer ABG pH ABG pO2 ABG HCO3 ABG O2 Saturation ABG Base Excess ABG Hemoglobin VBG pH Oxyhemoglobin Sodium Potassium Chloride Carbon Dioxide BUN Creatinine Glucose POC Glucose 194 H 189 H 183 H Hemoglobin A1c Lactic Acid Calcium Phosphorus Magnesium Ferritin AST ALT Alkaline Phosphatase Lactate Dehydrogenase C-Reactive Protein Total Protein Albumin Triglycerides Cholesterol Urine Creatinine Urine Microalbumin Vancomycin Trough Salicylates Acetaminophen 06/04/19 06/04/19 06/04/19 04:50 05:07 06:27 WBC RBC Hgb Hct MCH RDW Plt Count Lymph % (Auto) Seg Neutrophils % Seg Neuts % (Manual) Lymphocytes % (Manual) Monocytes % (Manual) Seg Neutrophils # Seg Neutrophils # Man Lymphocytes # (Manual) Monocytes # (Manual) D-Dimer ABG pH ABG pO2 76.5 L ABG HCO3 12.9 L ABG O2 Saturation ABG Base Excess -9.0 L ABG Hemoglobin VBG pH Oxyhemoglobin Sodium Potassium Chloride Carbon Dioxide BUN Creatinine Glucose POC Glucose 200 H 164 H Hemoglobin A1c Lactic Acid Calcium Phosphorus Magnesium Ferritin AST ALT Alkaline Phosphatase Lactate Dehydrogenase C-Reactive Protein Total Protein Albumin Triglycerides Cholesterol Urine Creatinine Urine Microalbumin Vancomycin Trough Salicylates Acetaminophen 06/04/19 06/04/19 06/04/19 07:00 07:00 07:00 WBC 13.4 H RBC 5.54 H Hgb 15.3 H Hct 46.1 H D MCH RDW Plt Count Lymph % (Auto) Seg Neutrophils % Seg Neuts % (Manual) 72.0 H Lymphocytes % (Manual) 6.0 L Monocytes % (Manual) Seg Neutrophils # Seg Neutrophils # Man 9.6 H Lymphocytes # (Manual) 0.8 L Monocytes # (Manual) D-Dimer ABG pH ABG pO2 ABG HCO3 ABG O2 Saturation ABG Base Excess ABG Hemoglobin VBG pH Oxyhemoglobin Sodium 158 H 156 H Potassium 2.7 L* D 2.6 L* Chloride 124.3 H 123.5 H Carbon Dioxide 11 L 11 L BUN 25 H 26 H Creatinine Glucose 192 H 190 H POC Glucose Hemoglobin A1c Lactic Acid Calcium Phosphorus Magnesium Ferritin AST 43 H ALT Alkaline Phosphatase Lactate Dehydrogenase 590 H C-Reactive Protein 22.70 H Total Protein Albumin 2.9 L Triglycerides Cholesterol Urine Creatinine Urine Microalbumin Vancomycin Trough Salicylates Acetaminophen 06/04/19 06/04/19 06/04/19 07:00 07:00 07:14 WBC RBC Hgb Hct MCH RDW Plt Count Lymph % (Auto) Seg Neutrophils % Seg Neuts % (Manual) Lymphocytes % (Manual) Monocytes % (Manual) Seg Neutrophils # Seg Neutrophils # Man Lymphocytes # (Manual) Monocytes # (Manual) D-Dimer 2050.33 H ABG pH ABG pO2 ABG HCO3 ABG O2 Saturation ABG Base Excess ABG Hemoglobin VBG pH Oxyhemoglobin Sodium Potassium Chloride Carbon Dioxide BUN Creatinine Glucose POC Glucose 176 H Hemoglobin A1c Lactic Acid Calcium Phosphorus Magnesium Ferritin 941.3 H AST ALT Alkaline Phosphatase Lactate Dehydrogenase C-Reactive Protein Total Protein Albumin Triglycerides Cholesterol Urine Creatinine Urine Microalbumin Vancomycin Trough Salicylates Acetaminophen 06/04/19 06/04/19 06/04/19 09:55 11:38 12:19 WBC RBC Hgb Hct MCH RDW Plt Count Lymph % (Auto) Seg Neutrophils % Seg Neuts % (Manual) Lymphocytes % (Manual) Monocytes % (Manual) Seg Neutrophils # Seg Neutrophils # Man Lymphocytes # (Manual) Monocytes # (Manual) D-Dimer ABG pH ABG pO2 ABG HCO3 ABG O2 Saturation ABG Base Excess ABG Hemoglobin VBG pH Oxyhemoglobin Sodium Potassium Chloride Carbon Dioxide BUN Creatinine Glucose POC Glucose 184 H 145 H 144 H Hemoglobin A1c Lactic Acid Calcium Phosphorus Magnesium Ferritin AST ALT Alkaline Phosphatase Lactate Dehydrogenase C-Reactive Protein Total Protein Albumin Triglycerides Cholesterol Urine Creatinine Urine Microalbumin Vancomycin Trough Salicylates Acetaminophen 06/04/19 06/04/19 06/04/19 13:35 14:29 15:06 WBC RBC Hgb Hct MCH RDW Plt Count Lymph % (Auto) Seg Neutrophils % Seg Neuts % (Manual) Lymphocytes % (Manual) Monocytes % (Manual) Seg Neutrophils # Seg Neutrophils # Man Lymphocytes # (Manual) Monocytes # (Manual) D-Dimer ABG pH ABG pO2 ABG HCO3 ABG O2 Saturation ABG Base Excess ABG Hemoglobin VBG pH Oxyhemoglobin Sodium 157 H Potassium 2.4 L* Chloride 121.4 H Carbon Dioxide 20 L D BUN 21 H Creatinine Glucose 176 H POC Glucose 151 H 142 H Hemoglobin A1c Lactic Acid Calcium Phosphorus Magnesium Ferritin AST ALT Alkaline Phosphatase Lactate Dehydrogenase C-Reactive Protein Total Protein Albumin Triglycerides Cholesterol Urine Creatinine Urine Microalbumin Vancomycin Trough Salicylates Acetaminophen 06/04/19 06/04/19 06/04/19 17:14 17:51 21:45 WBC RBC Hgb Hct MCH RDW Plt Count Lymph % (Auto) Seg Neutrophils % Seg Neuts % (Manual) Lymphocytes % (Manual) Monocytes % (Manual) Seg Neutrophils # Seg Neutrophils # Man Lymphocytes # (Manual) Monocytes # (Manual) D-Dimer ABG pH ABG pO2 ABG HCO3 ABG O2 Saturation ABG Base Excess ABG Hemoglobin VBG pH Oxyhemoglobin Sodium Potassium Chloride Carbon Dioxide BUN Creatinine Glucose POC Glucose 200 H 159 H 143 H Hemoglobin A1c Lactic Acid Calcium Phosphorus Magnesium Ferritin AST ALT Alkaline Phosphatase Lactate Dehydrogenase C-Reactive Protein Total Protein Albumin Triglycerides Cholesterol Urine Creatinine Urine Microalbumin Vancomycin Trough Salicylates Acetaminophen 06/04/19 06/04/19 06/04/19 22:20 22:21 23:27 WBC RBC Hgb Hct MCH RDW Plt Count Lymph % (Auto) Seg Neutrophils % Seg Neuts % (Manual) Lymphocytes % (Manual) Monocytes % (Manual) Seg Neutrophils # Seg Neutrophils # Man Lymphocytes # (Manual) Monocytes # (Manual) D-Dimer ABG pH 7.572 H ABG pO2 58.5 L ABG HCO3 ABG O2 Saturation ABG Base Excess 3.5 H ABG Hemoglobin 20.0 H VBG pH Oxyhemoglobin 94.6 L Sodium Potassium Chloride Carbon Dioxide BUN Creatinine Glucose POC Glucose 154 H 147 H Hemoglobin A1c Lactic Acid Calcium Phosphorus Magnesium Ferritin AST ALT Alkaline Phosphatase Lactate Dehydrogenase C-Reactive Protein Total Protein Albumin Triglycerides Cholesterol Urine Creatinine Urine Microalbumin Vancomycin Trough Salicylates Acetaminophen 06/05/19 06/05/19 06/05/19 00:27 01:16 02:20 WBC RBC Hgb Hct MCH RDW Plt Count Lymph % (Auto) Seg Neutrophils % Seg Neuts % (Manual) Lymphocytes % (Manual) Monocytes % (Manual) Seg Neutrophils # Seg Neutrophils # Man Lymphocytes # (Manual) Monocytes # (Manual) D-Dimer ABG pH ABG pO2 ABG HCO3 ABG O2 Saturation ABG Base Excess ABG Hemoglobin VBG pH Oxyhemoglobin Sodium Potassium Chloride Carbon Dioxide BUN Creatinine Glucose POC Glucose 124 H 126 H 156 H Hemoglobin A1c Lactic Acid Calcium Phosphorus Magnesium Ferritin AST ALT Alkaline Phosphatase Lactate Dehydrogenase C-Reactive Protein Total Protein Albumin Triglycerides Cholesterol Urine Creatinine Urine Microalbumin Vancomycin Trough Salicylates Acetaminophen 06/05/19 06/05/19 06/05/19 03:44 03:59 04:52 WBC RBC Hgb Hct MCH RDW Plt Count Lymph % (Auto) Seg Neutrophils % Seg Neuts % (Manual) Lymphocytes % (Manual) Monocytes % (Manual) Seg Neutrophils # Seg Neutrophils # Man Lymphocytes # (Manual) Monocytes # (Manual) D-Dimer ABG pH ABG pO2 ABG HCO3 ABG O2 Saturation ABG Base Excess ABG Hemoglobin VBG pH Oxyhemoglobin Sodium 155 H Potassium 3.0 L D Chloride 114.7 H Carbon Dioxide BUN Creatinine 0.6 L Glucose 136 H POC Glucose 143 H 141 H Hemoglobin A1c Lactic Acid Calcium Phosphorus Magnesium Ferritin AST ALT Alkaline Phosphatase Lactate Dehydrogenase C-Reactive Protein Total Protein Albumin Triglycerides Cholesterol Urine Creatinine Urine Microalbumin Vancomycin Trough Salicylates Acetaminophen 06/05/19 06/05/19 06/05/19 05:00 05:54 07:01 WBC RBC Hgb Hct MCH RDW Plt Count Lymph % (Auto) Seg Neutrophils % Seg Neuts % (Manual) Lymphocytes % (Manual) Monocytes % (Manual) Seg Neutrophils # Seg Neutrophils # Man Lymphocytes # (Manual) Monocytes # (Manual) D-Dimer ABG pH 7.621 H* ABG pO2 54.3 L ABG HCO3 29.8 H ABG O2 Saturation ABG Base Excess 8.8 H ABG Hemoglobin VBG pH Oxyhemoglobin Sodium Potassium Chloride Carbon Dioxide BUN Creatinine Glucose POC Glucose 155 H 145 H Hemoglobin A1c Lactic Acid Calcium Phosphorus Magnesium Ferritin AST ALT Alkaline Phosphatase Lactate Dehydrogenase C-Reactive Protein Total Protein Albumin Triglycerides Cholesterol Urine Creatinine Urine Microalbumin Vancomycin Trough Salicylates Acetaminophen 06/05/19 06/05/19 06/05/19 12:13 18:23 21:00 WBC RBC Hgb Hct MCH RDW Plt Count Lymph % (Auto) Seg Neutrophils % Seg Neuts % (Manual) Lymphocytes % (Manual) Monocytes % (Manual) Seg Neutrophils # Seg Neutrophils # Man Lymphocytes # (Manual) Monocytes # (Manual) D-Dimer ABG pH ABG pO2 ABG HCO3 ABG O2 Saturation ABG Base Excess ABG Hemoglobin VBG pH Oxyhemoglobin Sodium Potassium Chloride Carbon Dioxide BUN Creatinine Glucose POC Glucose 202 H 257 H Hemoglobin A1c Lactic Acid Calcium Phosphorus Magnesium Ferritin AST ALT Alkaline Phosphatase Lactate Dehydrogenase C-Reactive Protein Total Protein Albumin Triglycerides Cholesterol Urine Creatinine Urine Microalbumin Vancomycin Trough 4.2 L Salicylates Acetaminophen 06/05/19 06/06/19 06/06/19 23:55 04:16 04:37 WBC RBC Hgb Hct MCH RDW Plt Count Lymph % (Auto) Seg Neutrophils % Seg Neuts % (Manual) Lymphocytes % (Manual) Monocytes % (Manual) Seg Neutrophils # Seg Neutrophils # Man Lymphocytes # (Manual) Monocytes # (Manual) D-Dimer 1279.22 H ABG pH 7.600 H ABG pO2 62.4 L ABG HCO3 28.0 H ABG O2 Saturation ABG Base Excess 6.6 H ABG Hemoglobin 10.4 L VBG pH Oxyhemoglobin Sodium Potassium Chloride Carbon Dioxide BUN Creatinine Glucose POC Glucose 267 H Hemoglobin A1c Lactic Acid Calcium Phosphorus Magnesium Ferritin AST ALT Alkaline Phosphatase Lactate Dehydrogenase C-Reactive Protein Total Protein Albumin Triglycerides Cholesterol Urine Creatinine Urine Microalbumin Vancomycin Trough Salicylates Acetaminophen 06/06/19 06/06/19 06/06/19 04:37 04:37 04:37 WBC 12.2 H RBC 5.10 H Hgb Hct MCH 27 L RDW Plt Count Lymph % (Auto) Seg Neutrophils % Seg Neuts % (Manual) Lymphocytes % (Manual) Monocytes % (Manual) Seg Neutrophils # Seg Neutrophils # Man Lymphocytes # (Manual) Monocytes # (Manual) D-Dimer ABG pH ABG pO2 ABG HCO3 ABG O2 Saturation ABG Base Excess ABG Hemoglobin VBG pH Oxyhemoglobin Sodium 156 H Potassium 3.4 L Chloride 112.9 H Carbon Dioxide BUN 21 H Creatinine 0.6 L Glucose 332 H POC Glucose Hemoglobin A1c Lactic Acid Calcium Phosphorus Magnesium Ferritin 1649.0 H AST ALT Alkaline Phosphatase Lactate Dehydrogenase 578 H C-Reactive Protein 22.10 H Total Protein Albumin Triglycerides Cholesterol Urine Creatinine Urine Microalbumin Vancomycin Trough Salicylates Acetaminophen 06/06/19 06/06/19 06/06/19 05:45 11:55 12:21 WBC RBC Hgb Hct MCH RDW Plt Count Lymph % (Auto) Seg Neutrophils % Seg Neuts % (Manual) Lymphocytes % (Manual) Monocytes % (Manual) Seg Neutrophils # Seg Neutrophils # Man Lymphocytes # (Manual) Monocytes # (Manual) D-Dimer ABG pH 7.511 H ABG pO2 123.0 H ABG HCO3 29.7 H ABG O2 Saturation ABG Base Excess 6.4 H ABG Hemoglobin VBG pH Oxyhemoglobin Sodium Potassium Chloride Carbon Dioxide BUN Creatinine Glucose POC Glucose 303 H 281 H Hemoglobin A1c Lactic Acid Calcium Phosphorus Magnesium Ferritin AST ALT Alkaline Phosphatase Lactate Dehydrogenase C-Reactive Protein Total Protein Albumin Triglycerides Cholesterol Urine Creatinine Urine Microalbumin Vancomycin Trough Salicylates Acetaminophen 06/06/19 06/07/19 06/07/19 17:06 00:25 04:39 WBC RBC Hgb Hct MCH RDW Plt Count Lymph % (Auto) Seg Neutrophils % Seg Neuts % (Manual) Lymphocytes % (Manual) Monocytes % (Manual) Seg Neutrophils # Seg Neutrophils # Man Lymphocytes # (Manual) Monocytes # (Manual) D-Dimer ABG pH 7.507 H ABG pO2 46.4 L ABG HCO3 32.6 H ABG O2 Saturation 90.6 L ABG Base Excess 8.6 H ABG Hemoglobin VBG pH Oxyhemoglobin 89.2 L Sodium Potassium Chloride Carbon Dioxide BUN Creatinine Glucose POC Glucose 251 H 225 H Hemoglobin A1c Lactic Acid Calcium Phosphorus Magnesium Ferritin AST ALT Alkaline Phosphatase Lactate Dehydrogenase C-Reactive Protein Total Protein Albumin Triglycerides Cholesterol Urine Creatinine Urine Microalbumin Vancomycin Trough Salicylates Acetaminophen 06/07/19 06/07/19 06/07/19 04:43 04:43 04:43 WBC 13.6 H RBC 5.14 H Hgb Hct 43.4 H MCH 27 L RDW Plt Count Lymph % (Auto) Seg Neutrophils % Seg Neuts % (Manual) Lymphocytes % (Manual) Monocytes % (Manual) Seg Neutrophils # Seg Neutrophils # Man Lymphocytes # (Manual) Monocytes # (Manual) D-Dimer ABG pH ABG pO2 ABG HCO3 ABG O2 Saturation ABG Base Excess ABG Hemoglobin VBG pH Oxyhemoglobin Sodium 166 H* D Potassium 3.0 L Chloride 122.9 H Carbon Dioxide BUN 27 H Creatinine 0.5 L Glucose 265 H POC Glucose Hemoglobin A1c Lactic Acid Calcium Phosphorus Magnesium Ferritin AST ALT Alkaline Phosphatase Lactate Dehydrogenase C-Reactive Protein Total Protein Albumin Triglycerides 373 H Cholesterol Urine Creatinine Urine Microalbumin Vancomycin Trough Salicylates Acetaminophen 06/07/19 06/07/19 06/07/19 10:12 11:39 15:31 WBC RBC Hgb Hct MCH RDW Plt Count Lymph % (Auto) Seg Neutrophils % Seg Neuts % (Manual) Lymphocytes % (Manual) Monocytes % (Manual) Seg Neutrophils # Seg Neutrophils # Man Lymphocytes # (Manual) Monocytes # (Manual) D-Dimer ABG pH ABG pO2 ABG HCO3 ABG O2 Saturation ABG Base Excess ABG Hemoglobin VBG pH Oxyhemoglobin Sodium 163 H* 161 H* Potassium 3.1 L Chloride 117.7 H Carbon Dioxide BUN 22 H Creatinine 0.5 L Glucose 274 H POC Glucose 218 H Hemoglobin A1c Lactic Acid Calcium Phosphorus Magnesium Ferritin AST ALT Alkaline Phosphatase Lactate Dehydrogenase C-Reactive Protein Total Protein Albumin Triglycerides Cholesterol Urine Creatinine Urine Microalbumin Vancomycin Trough Salicylates Acetaminophen 06/07/19 06/08/19 06/08/19 17:16 00:04 03:45 WBC RBC Hgb Hct MCH RDW Plt Count Lymph % (Auto) Seg Neutrophils % Seg Neuts % (Manual) Lymphocytes % (Manual) Monocytes % (Manual) Seg Neutrophils # Seg Neutrophils # Man Lymphocytes # (Manual) Monocytes # (Manual) D-Dimer ABG pH 7.504 H ABG pO2 54.2 L ABG HCO3 32.3 H ABG O2 Saturation 93.7 L ABG Base Excess 8.4 H ABG Hemoglobin VBG pH Oxyhemoglobin 92.2 L Sodium Potassium Chloride Carbon Dioxide BUN Creatinine Glucose POC Glucose 284 H 283 H Hemoglobin A1c Lactic Acid Calcium Phosphorus Magnesium Ferritin AST ALT Alkaline Phosphatase Lactate Dehydrogenase C-Reactive Protein Total Protein Albumin Triglycerides Cholesterol Urine Creatinine Urine Microalbumin Vancomycin Trough Salicylates Acetaminophen 06/08/19 06/08/19 06/08/19 05:02 09:33 09:33 WBC RBC Hgb Hct MCH RDW Plt Count Lymph % (Auto) Seg Neutrophils % Seg Neuts % (Manual) Lymphocytes % (Manual) Monocytes % (Manual) Seg Neutrophils # Seg Neutrophils # Man Lymphocytes # (Manual) Monocytes # (Manual) D-Dimer 1319.18 H ABG pH ABG pO2 ABG HCO3 ABG O2 Saturation ABG Base Excess ABG Hemoglobin VBG pH Oxyhemoglobin Sodium Potassium Chloride Carbon Dioxide BUN Creatinine Glucose POC Glucose 291 H Hemoglobin A1c Lactic Acid Calcium Phosphorus Magnesium Ferritin 1274.0 H AST ALT Alkaline Phosphatase Lactate Dehydrogenase C-Reactive Protein Total Protein Albumin Triglycerides Cholesterol Urine Creatinine Urine Microalbumin Vancomycin Trough Salicylates Acetaminophen 06/08/19 06/08/19 06/08/19 09:33 09:33 17:46 WBC 16.0 H RBC Hgb Hct MCH 27 L RDW Plt Count Lymph % (Auto) Seg Neutrophils % Seg Neuts % (Manual) Lymphocytes % (Manual) Monocytes % (Manual) Seg Neutrophils # Seg Neutrophils # Man Lymphocytes # (Manual) Monocytes # (Manual) D-Dimer ABG pH ABG pO2 ABG HCO3 ABG O2 Saturation ABG Base Excess ABG Hemoglobin VBG pH Oxyhemoglobin Sodium 157 H Potassium 3.1 L Chloride 116.7 H Carbon Dioxide BUN 24 H Creatinine 0.5 L Glucose 351 H POC Glucose 309 H Hemoglobin A1c Lactic Acid Calcium Phosphorus 2.20 L Magnesium 2.60 H Ferritin AST ALT Alkaline Phosphatase 131 H Lactate Dehydrogenase 449 H C-Reactive Protein 9.70 H Total Protein 6.1 L Albumin 2.1 L Triglycerides Cholesterol Urine Creatinine Urine Microalbumin Vancomycin Trough Salicylates Acetaminophen 06/08/19 06/08/19 06/09/19 21:55 23:46 04:18 WBC RBC Hgb Hct MCH RDW Plt Count Lymph % (Auto) Seg Neutrophils % Seg Neuts % (Manual) Lymphocytes % (Manual) Monocytes % (Manual) Seg Neutrophils # Seg Neutrophils # Man Lymphocytes # (Manual) Monocytes # (Manual) D-Dimer ABG pH 7.480 H ABG pO2 70.9 L ABG HCO3 32.9 H ABG O2 Saturation ABG Base Excess 8.4 H ABG Hemoglobin 10.3 L VBG pH Oxyhemoglobin 94.8 L Sodium 151 H Potassium 3.3 L Chloride 112.7 H Carbon Dioxide 31 H BUN 24 H Creatinine 0.5 L Glucose 321 H POC Glucose 331 H Hemoglobin A1c Lactic Acid Calcium Phosphorus Magnesium Ferritin AST ALT Alkaline Phosphatase Lactate Dehydrogenase C-Reactive Protein Total Protein Albumin Triglycerides Cholesterol Urine Creatinine Urine Microalbumin Vancomycin Trough Salicylates Acetaminophen 06/09/19 06/09/19 06/09/19 05:35 07:34 07:34 WBC 14.2 H RBC Hgb Hct MCH 27 L RDW Plt Count Lymph % (Auto) Seg Neutrophils % Seg Neuts % (Manual) Lymphocytes % (Manual) Monocytes % (Manual) Seg Neutrophils # Seg Neutrophils # Man Lymphocytes # (Manual) Monocytes # (Manual) D-Dimer ABG pH ABG pO2 ABG HCO3 ABG O2 Saturation ABG Base Excess ABG Hemoglobin VBG pH Oxyhemoglobin Sodium 153 H Potassium 3.0 L Chloride 113.6 H Carbon Dioxide BUN 26 H Creatinine 0.5 L Glucose 306 H POC Glucose 264 H Hemoglobin A1c Lactic Acid Calcium Phosphorus Magnesium Ferritin AST ALT Alkaline Phosphatase Lactate Dehydrogenase 411 H C-Reactive Protein 6.00 H Total Protein Albumin Triglycerides 304 H Cholesterol Urine Creatinine Urine Microalbumin Vancomycin Trough Salicylates Acetaminophen 06/09/19 06/09/19 06/09/19 07:34 07:34 18:29 WBC RBC Hgb Hct MCH RDW Plt Count Lymph % (Auto) Seg Neutrophils % Seg Neuts % (Manual) Lymphocytes % (Manual) Monocytes % (Manual) Seg Neutrophils # Seg Neutrophils # Man Lymphocytes # (Manual) Monocytes # (Manual) D-Dimer 991.99 H ABG pH ABG pO2 ABG HCO3 ABG O2 Saturation ABG Base Excess ABG Hemoglobin VBG pH Oxyhemoglobin Sodium Potassium Chloride Carbon Dioxide BUN Creatinine Glucose POC Glucose 226 H Hemoglobin A1c Lactic Acid Calcium Phosphorus Magnesium Ferritin 1078.0 H AST ALT Alkaline Phosphatase Lactate Dehydrogenase C-Reactive Protein Total Protein Albumin Triglycerides Cholesterol Urine Creatinine Urine Microalbumin Vancomycin Trough Salicylates Acetaminophen 06/09/19 06/09/19 06/10/19 19:22 23:43 04:05 WBC RBC Hgb Hct MCH RDW Plt Count Lymph % (Auto) Seg Neutrophils % Seg Neuts % (Manual) Lymphocytes % (Manual) Monocytes % (Manual) Seg Neutrophils # Seg Neutrophils # Man Lymphocytes # (Manual) Monocytes # (Manual) D-Dimer ABG pH 7.472 H ABG pO2 63.0 L ABG HCO3 31.3 H ABG O2 Saturation 94.5 L ABG Base Excess 6.9 H ABG Hemoglobin VBG pH Oxyhemoglobin 93.0 L Sodium Potassium Chloride 110.1 H Carbon Dioxide BUN 20 H Creatinine 0.4 L Glucose 237 H POC Glucose 177 H Hemoglobin A1c Lactic Acid Calcium Phosphorus Magnesium Ferritin AST ALT Alkaline Phosphatase Lactate Dehydrogenase C-Reactive Protein Total Protein Albumin Triglycerides Cholesterol Urine Creatinine Urine Microalbumin Vancomycin Trough Salicylates Acetaminophen 06/10/19 06/10/19 06/10/19 06:28 12:30 18:08 WBC RBC Hgb Hct MCH RDW Plt Count Lymph % (Auto) Seg Neutrophils % Seg Neuts % (Manual) Lymphocytes % (Manual) Monocytes % (Manual) Seg Neutrophils # Seg Neutrophils # Man Lymphocytes # (Manual) Monocytes # (Manual) D-Dimer ABG pH ABG pO2 ABG HCO3 ABG O2 Saturation ABG Base Excess ABG Hemoglobin VBG pH Oxyhemoglobin Sodium Potassium Chloride Carbon Dioxide BUN Creatinine Glucose POC Glucose 172 H 166 H 172 H Hemoglobin A1c Lactic Acid Calcium Phosphorus Magnesium Ferritin AST ALT Alkaline Phosphatase Lactate Dehydrogenase C-Reactive Protein Total Protein Albumin Triglycerides Cholesterol Urine Creatinine Urine Microalbumin Vancomycin Trough Salicylates Acetaminophen 06/10/19 06/10/19 06/10/19 23:53 Unknown Unknown WBC 13.7 H RBC Hgb Hct MCH RDW Plt Count 84 L Lymph % (Auto) Seg Neutrophils % Seg Neuts % (Manual) Lymphocytes % (Manual) Monocytes % (Manual) Seg Neutrophils # Seg Neutrophils # Man Lymphocytes # (Manual) Monocytes # (Manual) D-Dimer ABG pH ABG pO2 ABG HCO3 ABG O2 Saturation ABG Base Excess ABG Hemoglobin VBG pH Oxyhemoglobin Sodium 148 H Potassium 3.3 L Chloride 111.5 H Carbon Dioxide BUN 20 H Creatinine 0.4 L Glucose 185 H POC Glucose 186 H Hemoglobin A1c Lactic Acid Calcium Phosphorus Magnesium Ferritin AST ALT Alkaline Phosphatase Lactate Dehydrogenase C-Reactive Protein Total Protein Albumin Triglycerides Cholesterol Urine Creatinine Urine Microalbumin Vancomycin Trough Salicylates Acetaminophen 06/11/19 06/11/19 06/11/19 04:31 04:31 04:31 WBC RBC Hgb Hct MCH RDW Plt Count Lymph % (Auto) Seg Neutrophils % Seg Neuts % (Manual) Lymphocytes % (Manual) Monocytes % (Manual) Seg Neutrophils # Seg Neutrophils # Man Lymphocytes # (Manual) Monocytes # (Manual) D-Dimer 1206.09 H ABG pH ABG pO2 ABG HCO3 ABG O2 Saturation ABG Base Excess ABG Hemoglobin VBG pH Oxyhemoglobin Sodium 146 H Potassium 3.3 L Chloride 109.4 H Carbon Dioxide BUN Creatinine 0.5 L Glucose 186 H POC Glucose Hemoglobin A1c Lactic Acid Calcium Phosphorus Magnesium Ferritin 905.9 H AST ALT Alkaline Phosphatase Lactate Dehydrogenase 417 H C-Reactive Protein 3.30 H Total Protein Albumin Triglycerides Cholesterol Urine Creatinine Urine Microalbumin Vancomycin Trough Salicylates Acetaminophen 06/11/19 06/11/19 06/11/19 04:31 05:35 11:41 WBC 17.0 H RBC Hgb Hct MCH 27 L RDW Plt Count Lymph % (Auto) Seg Neutrophils % Seg Neuts % (Manual) Lymphocytes % (Manual) Monocytes % (Manual) Seg Neutrophils # Seg Neutrophils # Man Lymphocytes # (Manual) Monocytes # (Manual) D-Dimer ABG pH ABG pO2 ABG HCO3 ABG O2 Saturation ABG Base Excess ABG Hemoglobin VBG pH Oxyhemoglobin Sodium Potassium Chloride Carbon Dioxide BUN Creatinine Glucose POC Glucose 151 H 209 H Hemoglobin A1c Lactic Acid Calcium Phosphorus Magnesium Ferritin AST ALT Alkaline Phosphatase Lactate Dehydrogenase C-Reactive Protein Total Protein Albumin Triglycerides Cholesterol Urine Creatinine Urine Microalbumin Vancomycin Trough Salicylates Acetaminophen 06/11/19 06/11/19 06/12/19 17:27 23:52 03:58 WBC 14.9 H RBC Hgb Hct MCH RDW Plt Count Lymph % (Auto) Seg Neutrophils % Seg Neuts % (Manual) 72.0 H Lymphocytes % (Manual) 13.0 L Monocytes % (Manual) 13.0 H Seg Neutrophils # Seg Neutrophils # Man 10.7 H Lymphocytes # (Manual) Monocytes # (Manual) 1.9 H D-Dimer ABG pH ABG pO2 ABG HCO3 ABG O2 Saturation ABG Base Excess ABG Hemoglobin VBG pH Oxyhemoglobin Sodium Potassium Chloride Carbon Dioxide BUN Creatinine Glucose POC Glucose 181 H 223 H Hemoglobin A1c Lactic Acid Calcium Phosphorus Magnesium Ferritin AST ALT Alkaline Phosphatase Lactate Dehydrogenase C-Reactive Protein Total Protein Albumin Triglycerides Cholesterol Urine Creatinine Urine Microalbumin Vancomycin Trough Salicylates Acetaminophen 06/12/19 06/12/19 06/12/19 03:58 04:44 10:30 WBC RBC Hgb Hct MCH RDW Plt Count Lymph % (Auto) Seg Neutrophils % Seg Neuts % (Manual) Lymphocytes % (Manual) Monocytes % (Manual) Seg Neutrophils # Seg Neutrophils # Man Lymphocytes # (Manual) Monocytes # (Manual) D-Dimer ABG pH 7.456 H ABG pO2 ABG HCO3 32.7 H ABG O2 Saturation ABG Base Excess 7.7 H ABG Hemoglobin VBG pH Oxyhemoglobin Sodium Potassium 3.4 L Chloride Carbon Dioxide BUN Creatinine 0.4 L Glucose 242 H POC Glucose 203 H Hemoglobin A1c Lactic Acid Calcium Phosphorus Magnesium Ferritin AST 103 H ALT 101 H Alkaline Phosphatase Lactate Dehydrogenase C-Reactive Protein Total Protein 5.9 L Albumin 2.3 L Triglycerides Cholesterol Urine Creatinine Urine Microalbumin Vancomycin Trough Salicylates Acetaminophen 06/12/19 06/13/19 06/13/19 12:01 00:03 02:51 WBC RBC Hgb Hct MCH RDW Plt Count Lymph % (Auto) Seg Neutrophils % Seg Neuts % (Manual) Lymphocytes % (Manual) Monocytes % (Manual) Seg Neutrophils # Seg Neutrophils # Man Lymphocytes # (Manual) Monocytes # (Manual) D-Dimer ABG pH ABG pO2 ABG HCO3 ABG O2 Saturation ABG Base Excess ABG Hemoglobin VBG pH Oxyhemoglobin Sodium Potassium Chloride Carbon Dioxide BUN Creatinine Glucose POC Glucose 178 H 127 H Hemoglobin A1c Lactic Acid Calcium Phosphorus Magnesium Ferritin AST ALT Alkaline Phosphatase Lactate Dehydrogenase 807 H C-Reactive Protein 3.40 H Total Protein Albumin Triglycerides Cholesterol Urine Creatinine Urine Microalbumin Vancomycin Trough Salicylates Acetaminophen 06/13/19 06/13/19 06/13/19 05:17 09:23 09:23 WBC RBC Hgb Hct MCH RDW Plt Count Lymph % (Auto) Seg Neutrophils % Seg Neuts % (Manual) Lymphocytes % (Manual) Monocytes % (Manual) Seg Neutrophils # Seg Neutrophils # Man Lymphocytes # (Manual) Monocytes # (Manual) D-Dimer 1401.68 H ABG pH ABG pO2 ABG HCO3 ABG O2 Saturation ABG Base Excess ABG Hemoglobin VBG pH Oxyhemoglobin Sodium Potassium Chloride Carbon Dioxide BUN Creatinine Glucose POC Glucose 161 H Hemoglobin A1c Lactic Acid Calcium Phosphorus Magnesium Ferritin 1942.0 H AST ALT Alkaline Phosphatase Lactate Dehydrogenase C-Reactive Protein Total Protein Albumin Triglycerides Cholesterol Urine Creatinine Urine Microalbumin Vancomycin Trough Salicylates Acetaminophen 06/13/19 06/13/19 06/14/19 12:03 18:17 00:03 WBC RBC Hgb Hct MCH RDW Plt Count Lymph % (Auto) Seg Neutrophils % Seg Neuts % (Manual) Lymphocytes % (Manual) Monocytes % (Manual) Seg Neutrophils # Seg Neutrophils # Man Lymphocytes # (Manual) Monocytes # (Manual) D-Dimer ABG pH ABG pO2 ABG HCO3 ABG O2 Saturation ABG Base Excess ABG Hemoglobin VBG pH Oxyhemoglobin Sodium Potassium Chloride Carbon Dioxide BUN Creatinine Glucose POC Glucose 147 H 172 H 168 H Hemoglobin A1c Lactic Acid Calcium Phosphorus Magnesium Ferritin AST ALT Alkaline Phosphatase Lactate Dehydrogenase C-Reactive Protein Total Protein Albumin Triglycerides Cholesterol Urine Creatinine Urine Microalbumin Vancomycin Trough Salicylates Acetaminophen 06/14/19 06/14/19 06/14/19 05:43 12:22 14:44 WBC 14.0 H RBC 5.86 H Hgb 16.2 H D Hct 49.3 H D MCH RDW Plt Count Lymph % (Auto) Seg Neutrophils % Seg Neuts % (Manual) 81.0 H Lymphocytes % (Manual) 10.0 L Monocytes % (Manual) Seg Neutrophils # Seg Neutrophils # Man 11.3 H Lymphocytes # (Manual) Monocytes # (Manual) 1.0 H D-Dimer ABG pH ABG pO2 ABG HCO3 ABG O2 Saturation ABG Base Excess ABG Hemoglobin VBG pH Oxyhemoglobin Sodium Potassium Chloride Carbon Dioxide BUN Creatinine Glucose POC Glucose 178 H 218 H Hemoglobin A1c Lactic Acid Calcium Phosphorus Magnesium Ferritin AST ALT Alkaline Phosphatase Lactate Dehydrogenase C-Reactive Protein Total Protein Albumin Triglycerides Cholesterol Urine Creatinine Urine Microalbumin Vancomycin Trough Salicylates Acetaminophen 06/14/19 06/14/19 06/14/19 14:44 16:35 18:01 WBC RBC Hgb Hct MCH RDW Plt Count Lymph % (Auto) Seg Neutrophils % Seg Neuts % (Manual) Lymphocytes % (Manual) Monocytes % (Manual) Seg Neutrophils # Seg Neutrophils # Man Lymphocytes # (Manual) Monocytes # (Manual) D-Dimer ABG pH 7.488 H ABG pO2 66.1 L ABG HCO3 30.2 H ABG O2 Saturation 94.7 L ABG Base Excess 6.3 H ABG Hemoglobin VBG pH Oxyhemoglobin 93.3 L Sodium Potassium 3.4 L Chloride Carbon Dioxide BUN Creatinine 0.3 L Glucose 296 H POC Glucose 215 H Hemoglobin A1c Lactic Acid Calcium Phosphorus Magnesium Ferritin AST ALT Alkaline Phosphatase Lactate Dehydrogenase C-Reactive Protein Total Protein Albumin Triglycerides Cholesterol Urine Creatinine Urine Microalbumin Vancomycin Trough Salicylates Acetaminophen 06/15/19 06/15/19 06/15/19 00:34 04:00 04:00 WBC RBC Hgb Hct MCH RDW Plt Count Lymph % (Auto) Seg Neutrophils % Seg Neuts % (Manual) Lymphocytes % (Manual) Monocytes % (Manual) Seg Neutrophils # Seg Neutrophils # Man Lymphocytes # (Manual) Monocytes # (Manual) D-Dimer 836.6 H ABG pH ABG pO2 ABG HCO3 ABG O2 Saturation ABG Base Excess ABG Hemoglobin VBG pH Oxyhemoglobin Sodium Potassium Chloride Carbon Dioxide BUN Creatinine Glucose POC Glucose 229 H Hemoglobin A1c Lactic Acid Calcium Phosphorus Magnesium Ferritin 908.8 H AST ALT Alkaline Phosphatase Lactate Dehydrogenase C-Reactive Protein Total Protein Albumin Triglycerides Cholesterol Urine Creatinine Urine Microalbumin Vancomycin Trough Salicylates Acetaminophen 06/15/19 06/15/19 06/15/19 04:00 04:00 06:24 WBC 15.6 H RBC Hgb Hct MCH 27 L RDW Plt Count Lymph % (Auto) 10.9 L Seg Neutrophils % 84.1 H Seg Neuts % (Manual) Lymphocytes % (Manual) Monocytes % (Manual) Seg Neutrophils # 13.1 H Seg Neutrophils # Man Lymphocytes # (Manual) Monocytes # (Manual) D-Dimer ABG pH ABG pO2 ABG HCO3 ABG O2 Saturation ABG Base Excess ABG Hemoglobin VBG pH Oxyhemoglobin Sodium Potassium 3.3 L Chloride Carbon Dioxide 31 H D BUN Creatinine 0.4 L Glucose 199 H POC Glucose 192 H Hemoglobin A1c Lactic Acid Calcium Phosphorus Magnesium Ferritin AST ALT Alkaline Phosphatase Lactate Dehydrogenase 386 H C-Reactive Protein 17.00 H Total Protein Albumin Triglycerides Cholesterol Urine Creatinine Urine Microalbumin Vancomycin Trough Salicylates Acetaminophen 06/15/19 06/15/19 06/15/19 12:05 17:02 21:00 WBC RBC Hgb Hct MCH RDW Plt Count Lymph % (Auto) Seg Neutrophils % Seg Neuts % (Manual) Lymphocytes % (Manual) Monocytes % (Manual) Seg Neutrophils # Seg Neutrophils # Man Lymphocytes # (Manual) Monocytes # (Manual) D-Dimer ABG pH ABG pO2 ABG HCO3 ABG O2 Saturation ABG Base Excess ABG Hemoglobin VBG pH Oxyhemoglobin Sodium Potassium Chloride Carbon Dioxide BUN Creatinine Glucose POC Glucose 271 H 239 H 211 H Hemoglobin A1c Lactic Acid Calcium Phosphorus Magnesium Ferritin AST ALT Alkaline Phosphatase Lactate Dehydrogenase C-Reactive Protein Total Protein Albumin Triglycerides Cholesterol Urine Creatinine Urine Microalbumin Vancomycin Trough Salicylates Acetaminophen 06/16/19 06/16/19 06/16/19 00:13 05:16 05:16 WBC 12.4 H RBC Hgb Hct MCH RDW Plt Count Lymph % (Auto) Seg Neutrophils % Seg Neuts % (Manual) Lymphocytes % (Manual) Monocytes % (Manual) Seg Neutrophils # Seg Neutrophils # Man Lymphocytes # (Manual) Monocytes # (Manual) D-Dimer ABG pH ABG pO2 ABG HCO3 ABG O2 Saturation ABG Base Excess ABG Hemoglobin VBG pH Oxyhemoglobin Sodium Potassium 3.4 L Chloride Carbon Dioxide BUN Creatinine 0.5 L Glucose 215 H POC Glucose 230 H Hemoglobin A1c Lactic Acid Calcium Phosphorus Magnesium Ferritin AST ALT Alkaline Phosphatase Lactate Dehydrogenase C-Reactive Protein Total Protein Albumin Triglycerides Cholesterol Urine Creatinine Urine Microalbumin Vancomycin Trough Salicylates Acetaminophen 06/16/19 06/16/19 06/16/19 08:05 12:17 16:44 WBC RBC Hgb Hct MCH RDW Plt Count Lymph % (Auto) Seg Neutrophils % Seg Neuts % (Manual) Lymphocytes % (Manual) Monocytes % (Manual) Seg Neutrophils # Seg Neutrophils # Man Lymphocytes # (Manual) Monocytes # (Manual) D-Dimer ABG pH ABG pO2 ABG HCO3 ABG O2 Saturation ABG Base Excess ABG Hemoglobin VBG pH Oxyhemoglobin Sodium Potassium Chloride Carbon Dioxide BUN Creatinine Glucose POC Glucose 220 H 195 H 223 H Hemoglobin A1c Lactic Acid Calcium Phosphorus Magnesium Ferritin AST ALT Alkaline Phosphatase Lactate Dehydrogenase C-Reactive Protein Total Protein Albumin Triglycerides Cholesterol Urine Creatinine Urine Microalbumin Vancomycin Trough Salicylates Acetaminophen 06/17/19 06/17/19 06/17/19 00:07 05:42 12:07 WBC RBC Hgb Hct MCH RDW Plt Count Lymph % (Auto) Seg Neutrophils % Seg Neuts % (Manual) Lymphocytes % (Manual) Monocytes % (Manual) Seg Neutrophils # Seg Neutrophils # Man Lymphocytes # (Manual) Monocytes # (Manual) D-Dimer ABG pH ABG pO2 ABG HCO3 ABG O2 Saturation ABG Base Excess ABG Hemoglobin VBG pH Oxyhemoglobin Sodium Potassium Chloride Carbon Dioxide BUN Creatinine Glucose POC Glucose 201 H 191 H 269 H Hemoglobin A1c Lactic Acid Calcium Phosphorus Magnesium Ferritin AST ALT Alkaline Phosphatase Lactate Dehydrogenase C-Reactive Protein Total Protein Albumin Triglycerides Cholesterol Urine Creatinine Urine Microalbumin Vancomycin Trough Salicylates Acetaminophen 06/17/19 06/18/19 06/18/19 17:40 00:05 05:32 WBC RBC Hgb Hct MCH RDW Plt Count Lymph % (Auto) Seg Neutrophils % Seg Neuts % (Manual) Lymphocytes % (Manual) Monocytes % (Manual) Seg Neutrophils # Seg Neutrophils # Man Lymphocytes # (Manual) Monocytes # (Manual) D-Dimer ABG pH ABG pO2 ABG HCO3 ABG O2 Saturation ABG Base Excess ABG Hemoglobin VBG pH Oxyhemoglobin Sodium Potassium Chloride Carbon Dioxide BUN Creatinine Glucose POC Glucose 266 H 222 H 273 H Hemoglobin A1c Lactic Acid Calcium Phosphorus Magnesium Ferritin AST ALT Alkaline Phosphatase Lactate Dehydrogenase C-Reactive Protein Total Protein Albumin Triglycerides Cholesterol Urine Creatinine Urine Microalbumin Vancomycin Trough Salicylates Acetaminophen 06/18/19 06/18/19 06/18/19 11:59 17:40 17:58 WBC RBC Hgb Hct MCH RDW Plt Count Lymph % (Auto) Seg Neutrophils % Seg Neuts % (Manual) Lymphocytes % (Manual) Monocytes % (Manual) Seg Neutrophils # Seg Neutrophils # Man Lymphocytes # (Manual) Monocytes # (Manual) D-Dimer ABG pH ABG pO2 ABG HCO3 ABG O2 Saturation ABG Base Excess ABG Hemoglobin VBG pH Oxyhemoglobin Sodium Potassium Chloride Carbon Dioxide BUN Creatinine Glucose POC Glucose 299 H 272 H 301 H Hemoglobin A1c Lactic Acid Calcium Phosphorus Magnesium Ferritin AST ALT Alkaline Phosphatase Lactate Dehydrogenase C-Reactive Protein Total Protein Albumin Triglycerides Cholesterol Urine Creatinine Urine Microalbumin Vancomycin Trough Salicylates Acetaminophen 06/18/19 06/18/19 06/19/19 20:48 23:30 06:05 WBC RBC Hgb Hct MCH RDW Plt Count Lymph % (Auto) Seg Neutrophils % Seg Neuts % (Manual) Lymphocytes % (Manual) Monocytes % (Manual) Seg Neutrophils # Seg Neutrophils # Man Lymphocytes # (Manual) Monocytes # (Manual) D-Dimer ABG pH ABG pO2 ABG HCO3 ABG O2 Saturation ABG Base Excess ABG Hemoglobin VBG pH Oxyhemoglobin Sodium Potassium Chloride Carbon Dioxide BUN Creatinine Glucose POC Glucose 282 H 283 H 294 H Hemoglobin A1c Lactic Acid Calcium Phosphorus Magnesium Ferritin AST ALT Alkaline Phosphatase Lactate Dehydrogenase C-Reactive Protein Total Protein Albumin Triglycerides Cholesterol Urine Creatinine Urine Microalbumin Vancomycin Trough Salicylates Acetaminophen 06/19/19 06/19/19 06/20/19 12:50 18:34 01:27 WBC RBC Hgb Hct MCH RDW Plt Count Lymph % (Auto) Seg Neutrophils % Seg Neuts % (Manual) Lymphocytes % (Manual) Monocytes % (Manual) Seg Neutrophils # Seg Neutrophils # Man Lymphocytes # (Manual) Monocytes # (Manual) D-Dimer ABG pH ABG pO2 ABG HCO3 ABG O2 Saturation ABG Base Excess ABG Hemoglobin VBG pH Oxyhemoglobin Sodium Potassium Chloride Carbon Dioxide BUN Creatinine Glucose POC Glucose 287 H 328 H 252 H Hemoglobin A1c Lactic Acid Calcium Phosphorus Magnesium Ferritin AST ALT Alkaline Phosphatase Lactate Dehydrogenase C-Reactive Protein Total Protein Albumin Triglycerides Cholesterol Urine Creatinine Urine Microalbumin Vancomycin Trough Salicylates Acetaminophen 06/20/19 06/20/19 06/20/19 04:50 04:54 12:46 WBC RBC Hgb Hct MCH RDW Plt Count Lymph % (Auto) Seg Neutrophils % Seg Neuts % (Manual) Lymphocytes % (Manual) Monocytes % (Manual) Seg Neutrophils # Seg Neutrophils # Man Lymphocytes # (Manual) Monocytes # (Manual) D-Dimer ABG pH ABG pO2 ABG HCO3 ABG O2 Saturation ABG Base Excess ABG Hemoglobin VBG pH Oxyhemoglobin Sodium 147 H Potassium Chloride Carbon Dioxide 31 H BUN Creatinine 0.4 L Glucose 323 H POC Glucose 290 H 278 H Hemoglobin A1c Lactic Acid Calcium Phosphorus Magnesium Ferritin AST ALT Alkaline Phosphatase Lactate Dehydrogenase C-Reactive Protein Total Protein Albumin Triglycerides Cholesterol Urine Creatinine Urine Microalbumin Vancomycin Trough Salicylates Acetaminophen 06/20/19 06/21/19 06/21/19 18:06 00:17 05:27 WBC RBC Hgb Hct MCH RDW Plt Count Lymph % (Auto) Seg Neutrophils % Seg Neuts % (Manual) Lymphocytes % (Manual) Monocytes % (Manual) Seg Neutrophils # Seg Neutrophils # Man Lymphocytes # (Manual) Monocytes # (Manual) D-Dimer ABG pH ABG pO2 ABG HCO3 ABG O2 Saturation ABG Base Excess ABG Hemoglobin VBG pH Oxyhemoglobin Sodium Potassium Chloride Carbon Dioxide BUN Creatinine Glucose POC Glucose 292 H 297 H 277 H Hemoglobin A1c Lactic Acid Calcium Phosphorus Magnesium Ferritin AST ALT Alkaline Phosphatase Lactate Dehydrogenase C-Reactive Protein Total Protein Albumin Triglycerides Cholesterol Urine Creatinine Urine Microalbumin Vancomycin Trough Salicylates Acetaminophen 06/21/19 06/21/19 06/22/19 12:17 19:23 00:11 WBC RBC Hgb Hct MCH RDW Plt Count Lymph % (Auto) Seg Neutrophils % Seg Neuts % (Manual) Lymphocytes % (Manual) Monocytes % (Manual) Seg Neutrophils # Seg Neutrophils # Man Lymphocytes # (Manual) Monocytes # (Manual) D-Dimer ABG pH ABG pO2 ABG HCO3 ABG O2 Saturation ABG Base Excess ABG Hemoglobin VBG pH Oxyhemoglobin Sodium Potassium Chloride Carbon Dioxide BUN Creatinine Glucose POC Glucose 302 H 348 H 232 H Hemoglobin A1c Lactic Acid Calcium Phosphorus Magnesium Ferritin AST ALT Alkaline Phosphatase Lactate Dehydrogenase C-Reactive Protein Total Protein Albumin Triglycerides Cholesterol Urine Creatinine Urine Microalbumin Vancomycin Trough Salicylates Acetaminophen 06/22/19 06/22/19 05:30 12:05 WBC RBC Hgb Hct MCH RDW Plt Count Lymph % (Auto) Seg Neutrophils % Seg Neuts % (Manual) Lymphocytes % (Manual) Monocytes % (Manual) Seg Neutrophils # Seg Neutrophils # Man Lymphocytes # (Manual) Monocytes # (Manual) D-Dimer ABG pH ABG pO2 ABG HCO3 ABG O2 Saturation ABG Base Excess ABG Hemoglobin VBG pH Oxyhemoglobin Sodium Potassium Chloride Carbon Dioxide BUN Creatinine Glucose POC Glucose 313 H 341 H Hemoglobin A1c Lactic Acid Calcium Phosphorus Magnesium Ferritin AST ALT Alkaline Phosphatase Lactate Dehydrogenase C-Reactive Protein Total Protein Albumin Triglycerides Cholesterol Urine Creatinine Urine Microalbumin Vancomycin Trough Salicylates Acetaminophen Allied health notes reviewed: RT
--- NOTE | 2019-06-22 15:53 | Vascular Lab Report ---
DUPLEX DOPPLER UPPER EXTREMITY VENOUS, RIGHT INDICATION / CLINICAL INFORMATION: DVT. TECHNIQUE: Duplex doppler imaging was performed through the veins of the right upper extremity using venous comp ression and other maneuvers. COMPARISON: None available. FINDINGS -- RIGHT UPPER EXTREMITY VEINS: INTERNAL JUGULAR: Negative. SUBCLAVIAN: Negative. AXILLARY: Negative. BRACHIAL: Negative. FOREARM: Negative. BASILIC (superficial): Negative. ADDITIONAL FINDINGS: None. IMPRESSION: 1. No sonographic evidence for DVT in the right upper extremity. Signer Name: Kenisha Jacobson MD Signed: 06/22/2019 3:49 PM Workstation Name: [id number]
[2019-06-22] MEDS ORDERED: INSULIN GLARGINE 100 UNITS/ML SUB-Q SCH (16:55)
--- NOTE | 2019-06-22 17:02 | Progress Note ---
Assessment and Plan Assessment and plan: Mrs. Tomas is a 48-year-old female with a history of hypertension, type 2 diabetes mellitus events with altered mental status. She arrived per EMS. Last known time normal 10 PM on night prior to admission. Patient is nonverbal. History obtained from paramedics and electronic medical record. Patient had been ill with fever cough for the past several days. She recently returned back from [place]. EMS discovered patient to be altered with work of breathing. Patient is nonverbal. She was not moving her right side. She is hypoxic at 77% room air. Blood pressure was 140/97. Blood sugar was elevated fingerstick. Hx obtained from [facility] realized that patient was not speaking 4 AM. Found her later breathing really heavy. Unresponsive. When she came back from [place] last Saturday. She had high fever. Her doctor ordered test for COVID-19. Dr. Rausch her PCP informed patient that she tested negative. She went to [place] to celebrate her mother's birthday. On admission she was noted to be in DKA and started on DKA protocol. She was al so intubated and on full mechanical ventilatory support. Diagnostic work-up so far EKG shows sinus tachycardia with MAT CT head no acute intracranial process CT cervical spine patchy groundglass consolidative airspace disease right mid to lower lung Mrs. Tomas presents with altered mental status hypoxia. She required mechanical ventilation for oxygenation and airway control. Initially was not moving her right side. With oxygen supplementation she began to move both of her arms. She continued to be nonverbal. She did not follow commands prior to intubation. With CT chest findings and history of fever I strongly suspect COVID 19. Although she previously tested negative there is significant support of false negative test so we will retest. survey form was filled out in the ED by the ED physician through the [facility] department of health as a person under investigation for COVID 19. Patient returned 1 week ago from [place] after celebrating her mother's birthday. * COVID 19 test results came back positive has been advised to forego quarantine himself. COVID 19 Induced Pneumonia Acute hypoxic respiratory failure mild on mechanical ventilation Hypernatremia-remains elevated will increase free water. Hypertension Acute metabolic encephalopathy Right upper extremity weakness now resolved Pneumonia Hypokalemia Leukocytosis Sepsis secondary to pneumonia-with hypothermia Severe metabolic acidosis DKA-resolved Diabetes mellitus with uncontrolled blood sugar Plan 06/04: Remains on full mechanical support. Patient with respiratory alkalosis noted. Adjustment made to the ventilator to decrease the rate. Will replace potassium as hypokalemia still persist. Hypernatremia gradually improving will adjust free water. Patient's anion gap is finally closed will transition to sliding scale coverage with Lantus. Anticipate weaning trial today if patient is amendable to it. Oxygen at requirements per vent settings appears to be improving 06/05: Leukocytosis improving although patient still hypoxic on the ventilator. Awaiting COVID 19 testing results. In addition continue antibiotics for broad- spectrum coverage. Will adjust insulin for better blood sugar control. 06/06: We will increase free water to 300 cc every 4 hours. We will also obtain consultation from associate account manager. Otherwise continue current therapy. Also noted to have diastolic hypertension will adjust blood pressure medications. Initiated home meds. 06/07: Sodium gradually improving, will adjust free water to 350 while awaiting todays lab and associate account manager. Patient still with non purposeful movement. Will discuss with ID about possible trial drug Ivermectin. Adjust basal insulin to 40 units BID 06/08: ID and pulmonary considering trial of the new medication ivermectin as patient's inflammatory markers went back up. Sodium mildly elevated. In addition to blood sugar. Discontinued D5 water which could be leading to elevated blood sugar. Will adjust free water to 400 every 4 hours. Nephrology following 06/09: Continue supportive care, Continue Management per ID and Critical care team. 06/10 weaning in progress, on D5W for correcting the hypernatremia. Potassium supplemented 06/12/19 probable extubation tomorrow 06/13/19--Extubated today 06/14/19 For transfer to floor 06/14: Patient unable to Transfer to the floor as she became hypoxic requiring H ighflow oxygen, Low potassium noted, will replace, monitor Blood glucose. Exam limited due to limited PPE. Inflammatory markers improving. 06/15: Still concern for possible decompensation. Will continue on ICU status at this time. Aspiration precautions. Continue high flow. Replace electrolytes as needed. 06/16: Discussed with Shoe Lining Fitter, patient still on High flow oxygen and failed swallow evaluation yesterday. We will continue to follow. We will continue ICU care at this time. A Dobbhoff has been placed for nutritional support. I have updated the patient's and patient's improvement so far. 06/18/19: Patient clinically continues to improve. We will downgrade to stepdown still on high flow tolerating tube feeds. 06/18: Awaiting repeat COVID Test, continue rehab, Lantus adjusted for better control,. Oxygen down to 60% High flow needs, maintining sats but still very lethargic 06/19: gradually improving, I have requested repeat COVID19 TEST TODAY, LAST TEST ON THE WAS negative, with one additional negative she can be discharged to LTAC as she is still on high flow 06/20: Patient now has to confirm negative test 48 hours apart will anticipate transfer to LTAC in a.m. to continue weaning from high flow. We will check a chest x-ray and also obtain an ultrasound of the right upper extremity due to noted edema. 06/21: Continues stable, oxygen weaning down, awaiting LTAC Shoe Lining Fitter and infectious disease consult input noted EKG reviewed no evidence of atrial fibrillation. Replace potassium DKA protocol with insulin-will be discontinued Continue COVID isolation precautions per [facility] protocol S/P Plaquenil and azithromycin X 5 DAYS Obtain serial Ferritin, LDH, D-Dimer, CRP every 48h Empiric antibiotic coverage, obtain blood cultures and urine cultures and sputum cultures. Wean from vent as tolerated defer to rope tow operator We will monitor EKG for any visualization of the atrial fibrillation. If persist will obtain cardiology consult. DVT and GI prophylaxis The high probability of a clinically significant, sudden or life threatening deterioration of the [pulmonary, neuro,] system(s) required my full and direct attention, intervention and personal management. The aggregate critical care time was [32] minutes. This time is in addition to time spent performing reported procedures but includes the following: [x] Data Review and interpretation [x] Patient assessment and monitoring of vital signs [x] Documentation [x] Medication orders and management History Interval history: Patient seen and examined continues on high flow oxygen post extubation. Although patient is still on high flow she is stable now at 55% Hospitalist Physical - Physical exam Narrative exam: Constitutional: no acute distress, asleep, other (Atraumatic, normocephalic,) Eyes: non-icteric ENT: Follows some commands moves all ext Neck: supple, no lymphadenopathy, no JVD Effort: normal Ascultation: Bilateral: diminished breath sounds, rhonchi Percussion: Bilateral: not dull Cardiovascular: irregular rhythm, other (S1,S2, no murmurs). Right upper extremity edema Gastrointestinal: normoactive bowel sounds, soft, non-tender, tender Integumentary: normal Extremities: no cyanosis, no edema, pulses normal, no ischemia or petechiae Neurologic: per staff following some command Psychiatric: other exam limited due to limited PPE's - Constitutional Vitals: Temp Pulse Resp BP Pulse Ox 98.4 F 85 13 157/99 96 06/22/19 12:00 06/22/19 16:00 06/22/19 16:00 06/22/19 10:00 06/22/19 11:36 General appearance: Present: no acute distress, well-nourished MACK score - Mack Score Age > 65: (0) No 3 or more CAD Risk Factors: (1) Yes 2 or more Angina events in past 24 hrs: (0) No Known CAD with more than 50% Stenosis: (0) No Elevated Cardiac Markers: (0) No ST Deviation Greater than 0.5mm: (0) No Results - Labs CBC & Chem 7: 06/20/19 04:50 06/20/19 04:50 Labs: Laboratory Last Values WBC 7.1 K/mm3 (4.5-11.0) 06/20/19 04:50 RBC 4.55 M/mm3 (3.65-5.03) 06/20/19 04:50 Hgb 12.6 gm/dl (10.1-14.3) 06/20/19 04:50 Hct 39.7 % (30.3-42.9) 06/20/19 04:50 MCV 88 fl (79-97) 06/20/19 04:50 MCH 28 pg (28-32) 06/20/19 04:50 MCHC 32 % (30-34) 06/20/19 04:50 RDW 14.3 % (13.2-15.2) 06/20/19 04:50 Plt Count 255 K/mm3 (140-440) 06/20/19 04:50 Lymph % (Auto) 10.9 % (13.4-35.0) L 06/15/19 04:00 [place] % (Auto) 4.6 % (0.0-7.3) 06/15/19 04:00 Eos % (Auto) 0.1 % (0.0-4.3) 06/15/19 04:00 Baso % (Auto) 0.3 % (0.0-1.8) 06/15/19 04:00 Lymph # 1.7 K/mm3 (1.2-5.4) 06/15/19 04:00 [place] # 0.7 K/mm3 (0.0-0.8) 06/15/19 04:00 Eos # 0.0 K/mm3 (0.0-0.4) 06/15/19 04:00 Baso # 0.0 K/mm3 (0.0-0.1) 06/15/19 04:00 Add Manual Diff Complete 06/14/19 14:44 Total Counted 100 06/14/19 14:44 Seg Neutrophils % 84.1 % (40.0-70.0) H 06/15/19 04:00 Seg Neuts % (Manual) 81.0 % (40.0-70.0) H 06/14/19 14:44 Band Neutrophils % 0 % 06/14/19 14:44 Lymphocytes % (Manual) 10.0 % (13.4-35.0) L 06/14/19 14:44 Reactive Lymphs % (Man) 0 % 06/14/19 14:44 Monocytes % (Manual) 7.0 % (0.0-7.3) 06/14/19 14:44 Eosinophils % (Manual) 1.0 % (0.0-4.3) 06/14/19 14:44 Basophils % (Manual) 1.0 % (0.0-1.8) 06/14/19 14:44 Metamyelocytes % 0 % 06/14/19 14:44 Myelocytes % 0 % 06/14/19 14:44 Promyelocytes % 0 % 06/14/19 14:44 Blast Cells % 0 % 06/14/19 14:44 Nucleated RBC % Not Reportable 06/14/19 14:44 Seg Neutrophils # 13.1 K/mm3 (1.8-7.7) H 06/15/19 04:00 Seg Neutrophils # Man 11.3 K/mm3 (1.8-7.7) H 06/14/19 14:44 Band Neutrophils # 0.0 K/mm3 06/14/19 14:44 Lymphocytes # (Manual) 1.4 K/mm3 (1.2-5.4) 06/14/19 14:44 Abs React Lymphs (Man) 0.0 K/mm3 06/14/19 14:44 Monocytes # (Manual) 1.0 K/mm3 (0.0-0.8) H 06/14/19 14:44 Eosinophils # (Manual) 0.1 K/mm3 (0.0-0.4) 06/14/19 14:44 Basophils # (Manual) 0.1 K/mm3 (0.0-0.1) 06/14/19 14:44 Metamyelocytes # 0.0 K/mm3 06/14/19 14:44 Myelocytes # 0.0 K/mm3 06/14/19 14:44 Promyelocytes # 0.0 K/mm3 06/14/19 14:44 Blast Cells # 0.0 K/mm3 06/14/19 14:44 WBC Morphology Not Reportable 06/14/19 14:44 Hypersegmented Neuts Not Reportable 06/14/19 14:44 Hyposegmented Neuts Not Reportable 06/14/19 14:44 Hypogranular Neuts Not Reportable 06/14/19 14:44 Smudge Cells Not Reportable 06/14/19 14:44 Toxic Granulation Not Reportable 06/14/19 14:44 Toxic Vacuolation Not Reportable 06/14/19 14:44 Dohle Bodies Not Reportable 06/14/19 14:44 Pelger-Huet Anomaly Not Reportable 06/14/19 14:44 Stephanie Rods Not Reportable 06/14/19 14:44 Platelet Estimate Not Reportable 06/14/19 14:44 Clumped Platelets Not Reportable 06/14/19 14:44 Plt Clumps, EDTA Not Reportable 06/14/19 14:44 Large Platelets Not Reportable 06/14/19 14:44 Giant Platelets Not Reportable 06/14/19 14:44 Platelet Satelliting Not Reportable 06/14/19 14:44 Plt Morphology Comment Not Reportable 06/14/19 14:44 RBC Morphology Not Reportable 06/14/19 14:44 Dimorphic RBCs Not Reportable 06/14/19 14:44 Polychromasia Not Reportable 06/14/19 14:44 Hypochromasia 1+ 06/14/19 14:44 Poikilocytosis Not Reportable 06/14/19 14:44 Anisocytosis 1+ 06/14/19 14:44 Microcytosis Not Reportable 06/14/19 14:44 Macrocytosis Not Reportable 06/14/19 14:44 Spherocytes Not Reportable 06/14/19 14:44 Pappenheimer Bodies Not Reportable 06/14/19 14:44 Sickle Cells Not Reportable 06/14/19 14:44 Target Cells Not Reportable 06/14/19 14:44 Tear Drop Cells Not Reportable 06/14/19 14:44 Ovalocytes Not Reportable 06/14/19 14:44 Helmet Cells Not Reportable 06/14/19 14:44 [place] Bodies Not Reportable 06/14/19 14:44 [place] Rings Not Reportable 06/14/19 14:44 Jessica Cells Not Reportable 06/14/19 14:44 Bite Cells Not Reportable 06/14/19 14:44 Crenated Cell Not Reportable 06/14/19 14:44 Elliptocytes Not Reportable 06/14/19 14:44 Acanthocytes (Spur) Not Reportable 06/14/19 14:44 Rouleaux Not Reportable 06/14/19 14:44 Hemoglobin C Crystals Not Reportable 06/14/19 14:44 Schistocytes Not Reportable 06/14/19 14:44 Malaria parasites Not Reportable 06/14/19 14:44 Elias Bodies Not Reportable 06/14/19 14:44 Hem Pathologist Commnt No 06/14/19 14:44 D-Dimer 836.6 ng/mlDDU (0-234) H 06/15/19 04:00 ABG pH 7.488 pH Units (7.350-7.450) H 06/14/19 16:35 ABG pCO2 40.7 mm Hg 06/14/19 16:35 ABG pO2 66.1 mm Hg (80.0-90.0) L 06/14/19 16:35 ABG HCO3 30.2 mmol/L (20.0-26.0) H 06/14/19 16:35 ABG O2 Saturation 94.7 % (95.0-99.0) L 06/14/19 16:35 ABG O2 Content 19.1 (0.0-44) 06/14/19 16:35 ABG Base Excess 6.3 mmol/L (-2.0-3.0) H 06/14/19 16:35 ABG Hemoglobin 14.6 gm/dl (12.0-16.0) 06/14/19 16:35 ABG Carboxyhemoglobin 1.0 % (0.0-5.0) 06/14/19 16:35 ABG Methemoglobin 0.5 % (0.0-1.5) 06/14/19 16:35 VBG pH 6.901 (7.320-7.420) L* 06/03/19 11:51 Oxyhemoglobin 93.3 % (95.0-99.0) L 06/14/19 16:35 FiO2 80 % 06/14/19 16:35 Sodium 147 mmol/L (137-145) H 06/20/19 04:50 Potassium 4.0 mmol/L (3.6-5.0) 06/20/19 04:50 Chloride 105.5 mmol/L (98-107) 06/20/19 04:50 Carbon Dioxide 31 mmol/L (22-30) H 06/20/19 04:50 Anion Gap 15 mmol/L 06/20/19 04:50 BUN 14 mg/dL (7-17) 06/20/19 04:50 Creatinine 0.4 mg/dL (0.7-1.2) L 06/20/19 04:50 Estimated GFR > 60 ml/min 06/20/19 04:50 BUN/Creatinine Ratio 35 % 06/20/19 04:50 Glucose 323 mg/dL (65-100) H 06/20/19 04:50 POC Glucose 341 (70-105) H 06/22/19 12:05 Hemoglobin A1c 9.6 % (4-6) H 06/03/19 16:03 Lactic Acid 1.90 mmol/L (0.7-2.0) 06/03/19 21:32 Calcium 9.9 mg/dL (8.4-10.2) 06/20/19 04:50 Phosphorus 2.20 mg/dL (2.5-4.5) L 06/08/19 09:33 Magnesium 2.60 mg/dL (1.7-2.3) H 06/08/19 09:33 Ferritin 908.8 ng/mL (13.0-400.0) H 06/15/19 04:00 Total Bilirubin 0.20 mg/dL (0.1-1.2) 06/12/19 03:58 AST 103 units/L (5-40) H 06/12/19 03:58 ALT 101 units/L (7-56) H 06/12/19 03:58 Alkaline Phosphatase 128 units/L (35-129) 06/12/19 03:58 Lactate Dehydrogenase 386 units/L (91-180) H 06/15/19 04:00 Troponin T < 0.010 ng/mL (0.00-0.029) 06/03/19 11:51 C-Reactive Protein 17.00 mg/dL (0.00-1.30) H 06/15/19 04:00 Total Protein 5.9 g/dL (6.3-8.2) L 06/12/19 03:58 Albumin 2.3 g/dL (3.9-5) L 06/12/19 03:58 Albumin/Globulin Ratio 0.6 % 06/12/19 03:58 Triglycerides 304 mg/dL (2-149) H 06/09/19 07:34 Cholesterol 250 mg/dL (50-199) H 06/03/19 19:00 LDL Cholesterol Direct TNR 06/03/19 19:00 HDL Cholesterol 46 mg/dL (40-59) 06/03/19 19:00 Cholesterol/HDL Ratio 5.43 % 06/03/19 19:00 Procalcitonin 0.10 ng/mL (<0.15) 06/13/19 09:23 Urine Color Yellow (Yellow) 06/03/19 11:48 Urine Turbidity Clear (Clear) 06/03/19 11:48 Urine pH 6.0 (5.0-7.0) 06/03/19 11:48 Ur Specific [place] 1.026 (1.003-1.030) 06/03/19 11:48 Urine Protein 100 mg/dl mg/dL (Negative) 06/03/19 11:48 Urine Glucose (UA) >=500 mg/dL (Negative) 06/03/19 11:48 Urine Ketones 80 mg/dL (Negative) 06/03/19 11:48 Urine Blood Mod (Negative) 06/03/19 11:48 Urine Nitrite Neg (Negative) 06/03/19 11:48 Urine Bilirubin Neg (Negative) 06/03/19 11:48 Urine Urobilinogen < 2.0 mg/dL (<2.0) 06/03/19 11:48 Ur Leukocyte Esterase Neg (Negative) 06/03/19 11:48 Urine WBC (Auto) 1.0 /HPF (0.0-6.0) 06/03/19 11:48 Urine RBC (Auto) 2.0 /HPF (0.0-6.0) 06/03/19 11:48 Granular Casts 4 /LPF 06/03/19 11:48 Urine Mucus Few /HPF 06/03/19 11:48 Urine Osmolality 755 Mosm/kg 06/07/19 17:00 Urine Creatinine 37.4 mg/dL (0.1-20.0) H 06/03/19 11:48 Urine Microalbumin 65.1 mg/dL (0.1-34.0) H 06/03/19 11:48 Microalb/Creat Ratio 1740.6 ug/mg 06/03/19 11:48 Urine Sodium 130 mmol/L 06/07/19 17:00 Urine Chloride 172.4 mmolL (110-250) 06/07/19 17:00 Urine HCG, Qual Negative (Negative) 06/03/19 11:48 Vancomycin Trough 4.2 ug/mL (5.0-20.0) L 06/05/19 21:00 Salicylates < 0.3 mg/dL (2.8-20.0) L 06/03/19 11:51 Urine Opiates Screen Presumptive negative 06/03/19 11:48 Urine Methadone Screen Presumptive negative 06/03/19 11:48 Acetaminophen < 5.0 ug/mL (10.0-30.0) L 06/03/19 11:51 Ur Barbiturates Screen Presumptive negative 06/03/19 11:48 Ur Phencyclidine Scrn Presumptive negative 06/03/19 11:48 Ur Amphetamines Screen Presumptive negative 06/03/19 11:48 U Benzodiazepines Scrn Presumptive negative 06/03/19 11:48 Urine Cocaine Screen Presumptive negative 06/03/19 11:48 U Marijuana (THC) Screen Presumptive negative 06/03/19 11:48 Drugs of Abuse Note Disclamer 06/03/19 11:48 Plasma/Serum Alcohol < 0.01 % (0-0.07) 06/03/19 11:51 Coronavirus (PCR) Negative (Negative) 06/20/19 12:25 Hepatitis A IgM Ab Non-reactive (NonReactive) 06/04/19 08:19 Hep Bs Antigen Non-reactive (Negative) 06/04/19 08:19 Hep B Core IgM Ab Non-reactive (NonReactive) 06/04/19 08:19 Hepatitis C Antibody Non-reactive (NonReactive) 06/04/19 08:19 Influenza A (Rapid) Negative (Negative) 06/03/19 Unknown Influenza B (Rapid) Negative (Negative) 06/03/19 Unknown Miscellaneous Test See scanned result 06/05/19 Unknown Alves/IV: Voiding Method External Female Catheter IV Catheter Type [Left Wrist] INT / Saline Lock IV Catheter Type [Right Hand] INT / Saline Lock IV Catheter Type [Left Hand] INT / Saline Lock IV Catheter Type [Right INT / Saline Lock Antecubital] IV Catheter Type [Left Peripheral IV Antecubital] Active Medications - Current Medications Current Medications: Generic Name Dose Route Start Last Admin Trade Name Freq PRN Reason Stop Dose Admin Albuterol 2 puff 06/15/19 12:24 Proair IH Q4HRT PRN Shortness Of Breath Amlodipine Besylate 5 mg 06/13/19 14:00 06/22/19 09:24 Amlodipine PO 5 mg QDAY JOSE ROBERTO Administration Lipase/Protease/Amylase 1 each 06/05/19 09:[address] 10,500 Unit FEEDTUBE PRN PRN For Clogged Feeding Tube Dextrose 50 ml 06/03/19 13:57 D50w (25gm) Syringe IV Q30MIN PRN Hypoglycemia Protocol Famotidine 20 mg 06/06/19 10:00 06/22/19 09:24 Pepcid PO 20 mg BID JOSE ROBERTO Administration Heparin Sodium (Porcine) 5,000 unit 06/03/19 14:15 06/22/19 09:24 Heparin SUB-Q 5,000 unit Q12HR JOSE ROBERTO Administration Hydralazine HCl 10 mg 06/07/19 08:42 06/17/19 02:25 Apresoline IV 10 mg Q4HR PRN Administration Hypertension Hydrophilic Ointment 1 applic 06/03/19 11:02 Vaseline Lip Therapy TP Q2HR PRN Dry Lips Insulin Glargine 30 units 06/22/19 16:55 Lantus SUB-Q QHS JOSE ROBERTO Insulin Human Regular 0 units 06/16/19 18:00 06/22/19 12:30 Humulin R SUB-Q 6 units Q6H JOSE ROBERTO Administration Protocol Losartan Potassium 50 mg 06/07/19 10:00 06/22/19 09:25 Cozaar PO 50 mg QDAY JOSE ROBERTO Administration Multi-Ingred Cream/Lotion/Oil/Oint 1 applic 06/03/19 11:02 Artificial Tears Ophth Oint OU Q4HR PRN Dry Eye(s) Quetiapine Fumarate 25 mg 06/18/19 22:00 06/21/19 21:41 Seroquel PO 25 mg QHS JOSE ROBERTO Administration Senna 8.6 mg 06/03/19 22:00 06/22/19 09:24 Senokot PO 8.6 mg BID JOSE ROBERTO Administration Simple Syrup 15 ml 06/05/19 09:59 Simple Syrup FEEDTUBE PRN PRN Hypoglycemia Simple Syrup 30 ml 06/05/19 09:59 Simple Syrup FEEDTUBE PRN PRN Hypoglycemia Sodium Bicarbonate 325 mg 06/05/19 09:59 Sodium Bicarbonate FEEDTUBE PRN PRN For Clogged Feeding Tube Sodium Chloride 10 ml 06/03/19 22:00 06/22/19 09:25 Sodium Chloride Flush Syringe 10 Ml IV 10 ml BID JOSE ROBERTO Administration Sodium Chloride 10 ml 06/03/19 13:57 Sodium Chloride Flush Syringe 10 Ml IV PRN PRN LINE FLUSH Nutrition/Malnutrition Assess - Dietary Evaluation Nutrition/Malnutrition Findings: Nutrition Notes Start: 06/04/19 08:30 Freq: Status: Active Protocol: Document 06/18/19 14:13 LM (Rec: 06/18/19 14:16 LM [id number]) Nutrition Notes Initial or Follow up Reassessment Current Diagnosis Diabetes,Sepsis,Hypertension, Respiratory Failure, Hyperlipidemia Other Pertinent Diagnosis COVID-19 positive, Pneu, metabolic encephalopathy Current Diet Glucerna 1.2 at 60ml/hr Labs/Tests POC glu 299 Pertinent Medications Humulin Height 5 ft 6 in Weight 81.1 kg [place] Body Weight (kg) 59.09 BMI 28.8 Weight Status Overweight Subjective/Other Information Per RN pt tolerating TF at goal. Percent of energy/protein needs met: 98%/100% Burn Absent Trauma Absent Current % PO Negligible Minimum of two criteria No Fluid Accumulation Mild (non-severe) #1 Nutrition Diagnosis Inadequate oral intake Diagnosis Progress(for reassessment Continues documentation) Is patient on ventilator? No Is Patient Ambulatory and/or Out of Bed No REE-([facility]-confined to bed) [phone] Calculation Used for Recommendations [facility] Additional Notes Protein: 65-81g (0.8-1g/kg) Fluid: 1ml/kcal Nutrition Intervention Change Diet Order: TF Nutrition Support: Glucerna 1.2 at 60ml/hr Flush 100 ml q4h Kcal 1,728 Protein (gm) 86 Fluid (mL) 1,159 Goal #1 TF tolerance Goal #2 Meet at least 80% of energy and protein needs Anticipated Discharge Needs: unable to determine at this time Follow-Up By: 06/24/19 Additional Comments F/U for TF tolerance
[2019-06-22] MEDS: QUEtiapine 25 MG TAB PO SCH (22:31)
[2019-06-23] MEDS: INSULIN REGULAR, HUMAN 100 UNITS/1 ML SUB-Q SCH ×2 (05:11→14:27)
[2019-06-23] MEDS: amLODIPine 5 MG TAB PO SCH ×2 (08:47→11:17)
[2019-06-23] MEDS: LOSARTAN 50 MG TAB PO SCH ×2 (08:48→11:17)
[2019-06-23] MEDS: FAMOTIDINE 20 MG TAB PO SCH ×2 (08:49→11:18)
[2019-06-23] MEDS: SENNOSIDES 8.6 MG TAB PO SCH ×2 (08:49→11:18)
[2019-06-23] MEDS: HEPARIN 5,000 UNIT/1 ML VIAL SUB-Q SCH ×2 (08:49→11:18)
--- NOTE | 2019-06-23 09:54 | Progress Note ---
Assessment and Plan Sepsis secondary to pneumonia-with hypothermia Acute hypoxic respiratory failure ,s/p mechanical ventilation POSITIVE COVID 19 - severe COVID pneumonia. -Transmission likely from community recent travel to [place]. - Ferritin at 1,037-->1,649-->1,319. LDH 673-->449. CRP 14-->9. Ddimer 434-->1319 DKA, treated Diabetes mellitus with uncontrolled blood sugar Acute metabolic encephalopathy, improving Pneumonia Leukocytosis Paroxysmal atrial fibrillation likely new onset Severe metabolic acidosis-improving Hypernatremia-improving Hypokalemia Oropharyngeal dysphagia -Continue with enteric nutritional support -Continue aspiration precautions, HOB>40 -Continue supplemental oxygen to keep O2 sats >92% -ABG, CXR prn -Continue all supportive care as documented -2 negative COVID testing -Continue COVID isolation precautions per [facility] protocol -Discharge planning- possible LTACH - Monitor glycemic control, with target blood glucose 140-180 mg/dL while critically ill. -Avoid hypoglycemia - Goal to keep Potassium 4 and Magnesium 2 to optimize respiratory muscle func tion -VTE prophylaxis on heparin -Stress ulcer prophylaxis- Famotidine -Continue to avoid nephrotoxins, adjust all medications for CrCL and GFR -Follow up BMP and CBC prn - Continue bronchodilators with pulmonary hygiene - Continue to maintain of sleep-wake cycle, avoid delirium - PT/OT/ROM exercises - Continue mobility protocol and skin assessment per protocol for pressure ulcer prevention - s/p Influenza and pneumonia vaccination -s/p hydroxychloroquine (total 5 days) Day 5 of 5 and zinc -s/p antibiotics for CAP s/p steroids s/p Acterma - continue other care per attending / other consultants CONDITION: FAIR PROGNOSIS: GUARDED CODE STATUS: FULL CODE Subjective Date of service: 06/23/19 Principal diagnosis: Ac hypoxemic resp failure; Bob. PNA; PUI CVOVID-19; DKA; Severe sepsis Interval history: Follow up for: Acute hypoxemic respiratory failure s/p MVS; COVID 19 pneumonia;DKA ; Acute metabolic encephalopathy; Sepsis; Fevers; SHARITA; Seen and examined. Vitals, labs, medications, chart and imaging reviewed. Extubated 06/13/2019, On going need for high flow oxygen therapy No fevers overnight, more awake and alert. Tolerating tube feeding via SBFT No new issues, 2 negative COVID tests Objective Vital Signs - 12hr 06/22/19 06/22/19 06/23/19 22:00 23:00 00:00 Temperature 98.6 F Pulse Rate 100 H 98 H 87 Respiratory 22 28 H Rate Blood Pressure O2 Sat by Pulse 97 98 Oximetry 06/23/19 06/23/19 06/23/19 00:20 01:00 01:20 Temperature Pulse Rate 98 H 98 H 89 Respiratory 28 H 17 24 Rate Blood Pressure 153/100 146/98 146/98 O2 Sat by Pulse 98 98 97 Oximetry 06/23/19 06/23/19 06/23/19 01:40 02:00 02:08 Temperature Pulse Rate 86 82 Respiratory 23 21 Rate Blood Pressure 146/98 130/90 O2 Sat by Pulse 98 97 95 Oximetry 06/23/19 06/23/19 06/23/19 02:20 02:40 03:00 Temperature Pulse Rate 88 87 89 Respiratory 21 20 22 Rate Blood Pressure 130/90 120/83 O2 Sat by Pulse 99 99 99 Oximetry 06/23/19 06/23/19 06/23/19 03:20 03:40 03:46 Temperature 98.8 F Pulse Rate 85 87 Respiratory 19 22 Rate Blood Pressure O2 Sat by Pulse 99 97 Oximetry 06/23/19 06/23/19 06/23/19 04:00 04:20 04:40 Temperature Pulse Rate 86 80 88 Respiratory 19 19 18 Rate Blood Pressure 109/77 109/77 O2 Sat by Pulse 98 95 97 Oximetry 06/23/19 06/23/19 06/23/19 05:00 05:20 05:40 Temperature Pulse Rate 89 87 82 Respiratory 22 19 17 Rate Blood Pressure 117/78 117/78 117/78 O2 Sat by Pulse 97 97 97 Oximetry 06/23/19 06/23/19 06/23/19 06:00 07:00 08:00 Temperature 98.5 F Pulse Rate 80 80 Respiratory 16 20 Rate Blood Pressure 120/82 127/87 O2 Sat by Pulse 98 96 Oximetry 06/23/19 06/23/19 06/23/19 08:03 08:47 08:48 Temperature Pulse Rate 83 83 Respiratory Rate Blood Pressure 133/81 133/81 O2 Sat by Pulse 96 Oximetry Constitutional: no acute distress, alert, other (Atraumatic, normocephalic, ) Eyes: non-icteric ENT: oropharynx moist Neck: supple, no lymphadenopathy, no JVD Effort: mildly labored Ascultation: Bilateral: clear, diminished breath sounds, rales (base), rhonchi Percussion: Bilateral: not dull Cardiovascular: irregular rhythm, other (S1,S2, no murmurs) Gastrointestinal: normoactive bowel sounds, soft, non-tender, tender Integumentary: normal Extremities: no cyanosis, no edema, pulses normal, no ischemia or petechiae Neurologic: normal mental status, non-focal exam, pupils equal and round, motor strength normal and (generally weak) Psychiatric: mood appropriate, affect normal CBC and BMP: 06/20/19 04:50 06/20/19 04:50 ABG, PT/INR, D-dimer: ABG ABG pH 7.488 pH Units (7.350-7.450) H 06/14/19 16:35 ABG pCO2 40.7 mm Hg 06/14/19 16:35 ABG pO2 66.1 mm Hg (80.0-90.0) L 06/14/19 16:35 ABG O2 Saturation 94.7 % (95.0-99.0) L 06/14/19 16:35 PT/INR, D-dimer D-Dimer 836.6 ng/mlDDU (0-234) H 06/15/19 04:00 Abnormal lab findings: Abnormal Labs 06/03/19 06/03/19 06/03/19 10:59 11:15 11:48 WBC RBC Hgb Hct MCH RDW Plt Count Lymph % (Auto) Seg Neutrophils % Seg Neuts % (Manual) Lymphocytes % (Manual) Monocytes % (Manual) Seg Neutrophils # Seg Neutrophils # Man Lymphocytes # (Manual) Monocytes # (Manual) D-Dimer ABG pH ABG pO2 ABG HCO3 ABG O2 Saturation ABG Base Excess ABG Hemoglobin VBG pH Oxyhemoglobin Sodium Potassium Chloride Carbon Dioxide BUN Creatinine Glucose POC Glucose 372 H Hemoglobin A1c Lactic Acid Calcium Phosphorus 11.70 H Magnesium 4.40 H Ferritin AST ALT Alkaline Phosphatase Lactate Dehydrogenase C-Reactive Protein Total Protein Albumin Triglycerides Cholesterol Urine Creatinine 37.4 H Urine Microalbumin 65.1 H Vancomycin Trough Salicylates Acetaminophen 06/03/19 06/03/19 06/03/19 11:51 11:51 11:51 WBC 23.3 H RBC 6.43 H Hgb 17.7 H Hct 59.9 H* MCH RDW 17.1 H Plt Count Lymph % (Auto) Seg Neutrophils % Seg Neuts % (Manual) 71.0 H Lymphocytes % (Manual) 11.0 L Monocytes % (Manual) 8.0 H Seg Neutrophils # Seg Neutrophils # Man 16.5 H Lymphocytes # (Manual) Monocytes # (Manual) 1.9 H D-Dimer ABG pH ABG pO2 ABG HCO3 ABG O2 Saturation ABG Base Excess ABG Hemoglobin VBG pH Oxyhemoglobin Sodium Potassium Chloride Carbon Dioxide 4 L* BUN 41 H Creatinine 1.8 H Glucose 636 H* POC Glucose Hemoglobin A1c Lactic Acid 3.20 H* Calcium 10.9 H Phosphorus Magnesium Ferritin AST 43 H ALT Alkaline Phosphatase 147 H Lactate Dehydrogenase 673 H C-Reactive Protein 14.70 H Total Protein 8.9 H Albumin Triglycerides Cholesterol Urine Creatinine Urine Microalbumin Vancomycin Trough Salicylates Acetaminophen 06/03/19 06/03/19 06/03/19 11:51 11:51 11:51 WBC RBC Hgb Hct MCH RDW Plt Count Lymph % (Auto) Seg Neutrophils % Seg Neuts % (Manual) Lymphocytes % (Manual) Monocytes % (Manual) Seg Neutrophils # Seg Neutrophils # Man Lymphocytes # (Manual) Monocytes # (Manual) D-Dimer ABG pH ABG pO2 ABG HCO3 ABG O2 Saturation ABG Base Excess ABG Hemoglobin VBG pH 6.901 L* Oxyhemoglobin Sodium Potassium Chloride Carbon Dioxide BUN Creatinine Glucose POC Glucose Hemoglobin A1c Lactic Acid Calcium Phosphorus Magnesium Ferritin AST ALT Alkaline Phosphatase Lactate Dehydrogenase C-Reactive Protein Total Protein Albumin Triglycerides Cholesterol Urine Creatinine Urine Microalbumin Vancomycin Trough Salicylates < 0.3 L Acetaminophen < 5.0 L 06/03/19 06/03/19 06/03/19 11:51 11:51 12:34 WBC RBC Hgb Hct MCH RDW Plt Count Lymph % (Auto) Seg Neutrophils % Seg Neuts % (Manual) Lymphocytes % (Manual) Monocytes % (Manual) Seg Neutrophils # Seg Neutrophils # Man Lymphocytes # (Manual) Monocytes # (Manual) D-Dimer 4311.60 H ABG pH ABG pO2 ABG HCO3 ABG O2 Saturation ABG Base Excess ABG Hemoglobin VBG pH Oxyhemoglobin Sodium Potassium Chloride Carbon Dioxide BUN Creatinine Glucose POC Glucose Hemoglobin A1c Lactic Acid 5.20 H* Calcium Phosphorus Magnesium Ferritin 1037.0 H AST ALT Alkaline Phosphatase Lactate Dehydrogenase C-Reactive Protein Total Protein Albumin Triglycerides Cholesterol Urine Creatinine Urine Microalbumin Vancomycin Trough Salicylates Acetaminophen 06/03/19 06/03/19 06/03/19 14:30 16:03 17:00 WBC RBC Hgb Hct MCH RDW Plt Count Lymph % (Auto) Seg Neutrophils % Seg Neuts % (Manual) Lymphocytes % (Manual) Monocytes % (Manual) Seg Neutrophils # Seg Neutrophils # Man Lymphocytes # (Manual) Monocytes # (Manual) D-Dimer ABG pH 6.880 L* ABG pO2 489.9 H ABG HCO3 7.1 L ABG O2 Saturation 99.6 H ABG Base Excess -26.1 L ABG Hemoglobin 16.2 H VBG pH Oxyhemoglobin Sodium Potassium Chloride Carbon Dioxide BUN Creatinine Glucose POC Glucose 335 H Hemoglobin A1c 9.6 H Lactic Acid Calcium Phosphorus Magnesium Ferritin AST ALT Alkaline Phosphatase Lactate Dehydrogenase C-Reactive Protein Total Protein Albumin Triglycerides Cholesterol Urine Creatinine Urine Microalbumin Vancomycin Trough Salicylates Acetaminophen 06/03/19 06/03/19 06/03/19 18:14 18:24 19:00 WBC RBC Hgb Hct MCH RDW Plt Count Lymph % (Auto) Seg Neutrophils % Seg Neuts % (Manual) Lymphocytes % (Manual) Monocytes % (Manual) Seg Neutrophils # Seg Neutrophils # Man Lymphocytes # (Manual) Monocytes # (Manual) D-Dimer ABG pH 7.057 L* ABG pO2 97.2 H ABG HCO3 5.5 L ABG O2 Saturation ABG Base Excess -23.0 L ABG Hemoglobin 18.1 H VBG pH Oxyhemoglobin 94.4 L Sodium Potassium Chloride Carbon Dioxide BUN Creatinine Glucose POC Glucose 285 H Hemoglobin A1c Lactic Acid 3.40 H* Calcium Phosphorus Magnesium Ferritin AST ALT Alkaline Phosphatase Lactate Dehydrogenase C-Reactive Protein Total Protein Albumin Triglycerides Cholesterol Urine Creatinine Urine Microalbumin Vancomycin Trough Salicylates Acetaminophen 06/03/19 06/03/19 06/03/19 19:00 19:00 19:52 WBC RBC Hgb Hct MCH RDW Plt Count Lymph % (Auto) Seg Neutrophils % Seg Neuts % (Manual) Lymphocytes % (Manual) Monocytes % (Manual) Seg Neutrophils # Seg Neutrophils # Man Lymphocytes # (Manual) Monocytes # (Manual) D-Dimer ABG pH ABG pO2 ABG HCO3 ABG O2 Saturation ABG Base Excess ABG Hemoglobin VBG pH Oxyhemoglobin Sodium 151 H Potassium Chloride 120.8 H Carbon Dioxide 6 L* BUN 33 H Creatinine 1.4 H Glucose 339 H POC Glucose 316 H Hemoglobin A1c Lactic Acid Calcium Phosphorus Magnesium Ferritin AST 47 H ALT Alkaline Phosphatase 130 H Lactate Dehydrogenase C-Reactive Protein Total Protein Albumin 3.7 L Triglycerides 424 H Cholesterol 250 H Urine Creatinine Urine Microalbumin Vancomycin Trough Salicylates Acetaminophen 06/03/19 06/03/19 06/03/19 20:21 20:21 21:01 WBC RBC Hgb Hct MCH RDW Plt Count Lymph % (Auto) Seg Neutrophils % Seg Neuts % (Manual) Lymphocytes % (Manual) Monocytes % (Manual) Seg Neutrophils # Seg Neutrophils # Man Lymphocytes # (Manual) Monocytes # (Manual) D-Dimer ABG pH ABG pO2 ABG HCO3 ABG O2 Saturation ABG Base Excess ABG Hemoglobin VBG pH Oxyhemoglobin Sodium 153 H Potassium Chloride 121.8 H Carbon Dioxide 6 L* BUN 34 H Creatinine 1.3 H Glucose 324 H POC Glucose 245 H Hemoglobin A1c Lactic Acid 3.10 H* Calcium Phosphorus Magnesium Ferritin AST ALT Alkaline Phosphatase Lactate Dehydrogenase C-Reactive Protein Total Protein Albumin Triglycerides Cholesterol Urine Creatinine Urine Microalbumin Vancomycin Trough Salicylates Acetaminophen 06/03/19 06/03/19 06/03/19 21:25 21:32 22:42 WBC RBC Hgb Hct MCH RDW Plt Count Lymph % (Auto) Seg Neutrophils % Seg Neuts % (Manual) Lymphocytes % (Manual) Monocytes % (Manual) Seg Neutrophils # Seg Neutrophils # Man Lymphocytes # (Manual) Monocytes # (Manual) D-Dimer ABG pH 7.172 L* ABG pO2 107.2 H ABG HCO3 5.2 L ABG O2 Saturation ABG Base Excess -20.5 L ABG Hemoglobin 17.3 H VBG pH Oxyhemoglobin Sodium 155 H Potassium 2.6 L* D Chloride 130.1 H Carbon Dioxide 5 L* BUN 24 H Creatinine Glucose 212 H POC Glucose 225 H Hemoglobin A1c Lactic Acid Calcium 5.8 L* D Phosphorus Magnesium Ferritin AST ALT Alkaline Phosphatase Lactate Dehydrogenase C-Reactive Protein Total Protein Albumin Triglycerides Cholesterol Urine Creatinine Urine Microalbumin Vancomycin Trough Salicylates Acetaminophen 06/03/19 06/04/19 06/04/19 23:32 00:04 01:25 WBC RBC Hgb Hct MCH RDW Plt Count Lymph % (Auto) Seg Neutrophils % Seg Neuts % (Manual) Lymphocytes % (Manual) Monocytes % (Manual) Seg Neutrophils # Seg Neutrophils # Man Lymphocytes # (Manual) Monocytes # (Manual) D-Dimer ABG pH ABG pO2 ABG HCO3 ABG O2 Saturation ABG Base Excess ABG Hemoglobin VBG pH Oxyhemoglobin Sodium 151 H 151 H Potassium 1.5 L* D Chloride 139.0 H 124.7 H Carbon Dioxide 3 L* 9 L* BUN 31 H Creatinine 0.2 L D Glucose 117 H 241 H POC Glucose 231 H Hemoglobin A1c Lactic Acid Calcium 3.1 L* D Phosphorus Magnesium Ferritin AST ALT Alkaline Phosphatase Lactate Dehydrogenase C-Reactive Protein Total Protein Albumin Triglycerides Cholesterol Urine Creatinine Urine Microalbumin Vancomycin Trough Salicylates Acetaminophen 06/04/19 06/04/19 06/04/19 01:34 02:45 03:21 WBC RBC Hgb Hct MCH RDW Plt Count Lymph % (Auto) Seg Neutrophils % Seg Neuts % (Manual) Lymphocytes % (Manual) Monocytes % (Manual) Seg Neutrophils # Seg Neutrophils # Man Lymphocytes # (Manual) Monocytes # (Manual) D-Dimer ABG pH ABG pO2 ABG HCO3 ABG O2 Saturation ABG Base Excess ABG Hemoglobin VBG pH Oxyhemoglobin Sodium Potassium Chloride Carbon Dioxide BUN Creatinine Glucose POC Glucose 194 H 189 H 183 H Hemoglobin A1c Lactic Acid Calcium Phosphorus Magnesium Ferritin AST ALT Alkaline Phosphatase Lactate Dehydrogenase C-Reactive Protein Total Protein Albumin Triglycerides Cholesterol Urine Creatinine Urine Microalbumin Vancomycin Trough Salicylates Acetaminophen 06/04/19 06/04/19 06/04/19 04:50 05:07 06:27 WBC RBC Hgb Hct MCH RDW Plt Count Lymph % (Auto) Seg Neutrophils % Seg Neuts % (Manual) Lymphocytes % (Manual) Monocytes % (Manual) Seg Neutrophils # Seg Neutrophils # Man Lymphocytes # (Manual) Monocytes # (Manual) D-Dimer ABG pH ABG pO2 76.5 L ABG HCO3 12.9 L ABG O2 Saturation ABG Base Excess -9.0 L ABG Hemoglobin VBG pH Oxyhemoglobin Sodium Potassium Chloride Carbon Dioxide BUN Creatinine Glucose POC Glucose 200 H 164 H Hemoglobin A1c Lactic Acid Calcium Phosphorus Magnesium Ferritin AST ALT Alkaline Phosphatase Lactate Dehydrogenase C-Reactive Protein Total Protein Albumin Triglycerides Cholesterol Urine Creatinine Urine Microalbumin Vancomycin Trough Salicylates Acetaminophen 06/04/19 06/04/19 06/04/19 07:00 07:00 07:00 WBC 13.4 H RBC 5.54 H Hgb 15.3 H Hct 46.1 H D MCH RDW Plt Count Lymph % (Auto) Seg Neutrophils % Seg Neuts % (Manual) 72.0 H Lymphocytes % (Manual) 6.0 L Monocytes % (Manual) Seg Neutrophils # Seg Neutrophils # Man 9.6 H Lymphocytes # (Manual) 0.8 L Monocytes # (Manual) D-Dimer ABG pH ABG pO2 ABG HCO3 ABG O2 Saturation ABG Base Excess ABG Hemoglobin VBG pH Oxyhemoglobin Sodium 158 H 156 H Potassium 2.7 L* D 2.6 L* Chloride 124.3 H 123.5 H Carbon Dioxide 11 L 11 L BUN 25 H 26 H Creatinine Glucose 192 H 190 H POC Glucose Hemoglobin A1c Lactic Acid Calcium Phosphorus Magnesium Ferritin AST 43 H ALT Alkaline Phosphatase Lactate Dehydrogenase 590 H C-Reactive Protein 22.70 H Total Protein Albumin 2.9 L Triglycerides Cholesterol Urine Creatinine Urine Microalbumin Vancomycin Trough Salicylates Acetaminophen 06/04/19 06/04/19 06/04/19 07:00 07:00 07:14 WBC RBC Hgb Hct MCH RDW Plt Count Lymph % (Auto) Seg Neutrophils % Seg Neuts % (Manual) Lymphocytes % (Manual) Monocytes % (Manual) Seg Neutrophils # Seg Neutrophils # Man Lymphocytes # (Manual) Monocytes # (Manual) D-Dimer 2050.33 H ABG pH ABG pO2 ABG HCO3 ABG O2 Saturation ABG Base Excess ABG Hemoglobin VBG pH Oxyhemoglobin Sodium Potassium Chloride Carbon Dioxide BUN Creatinine Glucose POC Glucose 176 H Hemoglobin A1c Lactic Acid Calcium Phosphorus Magnesium Ferritin 941.3 H AST ALT Alkaline Phosphatase Lactate Dehydrogenase C-Reactive Protein Total Protein Albumin Triglycerides Cholesterol Urine Creatinine Urine Microalbumin Vancomycin Trough Salicylates Acetaminophen 06/04/19 06/04/19 06/04/19 09:55 11:38 12:19 WBC RBC Hgb Hct MCH RDW Plt Count Lymph % (Auto) Seg Neutrophils % Seg Neuts % (Manual) Lymphocytes % (Manual) Monocytes % (Manual) Seg Neutrophils # Seg Neutrophils # Man Lymphocytes # (Manual) Monocytes # (Manual) D-Dimer ABG pH ABG pO2 ABG HCO3 ABG O2 Saturation ABG Base Excess ABG Hemoglobin VBG pH Oxyhemoglobin Sodium Potassium Chloride Carbon Dioxide BUN Creatinine Glucose POC Glucose 184 H 145 H 144 H Hemoglobin A1c Lactic Acid Calcium Phosphorus Magnesium Ferritin AST ALT Alkaline Phosphatase Lactate Dehydrogenase C-Reactive Protein Total Protein Albumin Triglycerides Cholesterol Urine Creatinine Urine Microalbumin Vancomycin Trough Salicylates Acetaminophen 04/04/2306/04/19 06/04/19 13:35 14:29 15:06 WBC RBC Hgb Hct MCH RDW Plt Count Lymph % (Auto) Seg Neutrophils % Seg Neuts % (Manual) Lymphocytes % (Manual) Monocytes % (Manual) Seg Neutrophils # Seg Neutrophils # Man Lymphocytes # (Manual) Monocytes # (Manual) D-Dimer ABG pH ABG pO2 ABG HCO3 ABG O2 Saturation ABG Base Excess ABG Hemoglobin VBG pH Oxyhemoglobin Sodium 157 H Potassium 2.4 L* Chloride 121.4 H Carbon Dioxide 20 L D BUN 21 H Creatinine Glucose 176 H POC Glucose 151 H 142 H Hemoglobin A1c Lactic Acid Calcium Phosphorus Magnesium Ferritin AST ALT Alkaline Phosphatase Lactate Dehydrogenase C-Reactive Protein Total Protein Albumin Triglycerides Cholesterol Urine Creatinine Urine Microalbumin Vancomycin Trough Salicylates Acetaminophen 06/04/19 06/04/19 06/04/19 17:14 17:51 21:45 WBC RBC Hgb Hct MCH RDW Plt Count Lymph % (Auto) Seg Neutrophils % Seg Neuts % (Manual) Lymphocytes % (Manual) Monocytes % (Manual) Seg Neutrophils # Seg Neutrophils # Man Lymphocytes # (Manual) Monocytes # (Manual) D-Dimer ABG pH ABG pO2 ABG HCO3 ABG O2 Saturation ABG Base Excess ABG Hemoglobin VBG pH Oxyhemoglobin Sodium Potassium Chloride Carbon Dioxide BUN Creatinine Glucose POC Glucose 200 H 159 H 143 H Hemoglobin A1c Lactic Acid Calcium Phosphorus Magnesium Ferritin AST ALT Alkaline Phosphatase Lactate Dehydrogenase C-Reactive Protein Total Protein Albumin Triglycerides Cholesterol Urine Creatinine Urine Microalbumin Vancomycin Trough Salicylates Acetaminophen 06/04/19 06/04/19 06/04/19 22:20 22:21 23:27 WBC RBC Hgb Hct MCH RDW Plt Count Lymph % (Auto) Seg Neutrophils % Seg Neuts % (Manual) Lymphocytes % (Manual) Monocytes % (Manual) Seg Neutrophils # Seg Neutrophils # Man Lymphocytes # (Manual) Monocytes # (Manual) D-Dimer ABG pH 7.572 H ABG pO2 58.5 L ABG HCO3 ABG O2 Saturation ABG Base Excess 3.5 H ABG Hemoglobin 20.0 H VBG pH Oxyhemoglobin 94.6 L Sodium Potassium Chloride Carbon Dioxide BUN Creatinine Glucose POC Glucose 154 H 147 H Hemoglobin A1c Lactic Acid Calcium Phosphorus Magnesium Ferritin AST ALT Alkaline Phosphatase Lactate Dehydrogenase C-Reactive Protein Total Protein Albumin Triglycerides Cholesterol Urine Creatinine Urine Microalbumin Vancomycin Trough Salicylates Acetaminophen 04/05/2106/05/19 06/05/19 00:27 01:16 02:20 WBC RBC Hgb Hct MCH RDW Plt Count Lymph % (Auto) Seg Neutrophils % Seg Neuts % (Manual) Lymphocytes % (Manual) Monocytes % (Manual) Seg Neutrophils # Seg Neutrophils # Man Lymphocytes # (Manual) Monocytes # (Manual) D-Dimer ABG pH ABG pO2 ABG HCO3 ABG O2 Saturation ABG Base Excess ABG Hemoglobin VBG pH Oxyhemoglobin Sodium Potassium Chloride Carbon Dioxide BUN Creatinine Glucose POC Glucose 124 H 126 H 156 H Hemoglobin A1c Lactic Acid Calcium Phosphorus Magnesium Ferritin AST ALT Alkaline Phosphatase Lactate Dehydrogenase C-Reactive Protein Total Protein Albumin Triglycerides Cholesterol Urine Creatinine Urine Microalbumin Vancomycin Trough Salicylates Acetaminophen 06/05/19 06/05/19 06/05/19 03:44 03:59 04:52 WBC RBC Hgb Hct MCH RDW Plt Count Lymph % (Auto) Seg Neutrophils % Seg Neuts % (Manual) Lymphocytes % (Manual) Monocytes % (Manual) Seg Neutrophils # Seg Neutrophils # Man Lymphocytes # (Manual) Monocytes # (Manual) D-Dimer ABG pH ABG pO2 ABG HCO3 ABG O2 Saturation ABG Base Excess ABG Hemoglobin VBG pH Oxyhemoglobin Sodium 155 H Potassium 3.0 L D Chloride 114.7 H Carbon Dioxide BUN Creatinine 0.6 L Glucose 136 H POC Glucose 143 H 141 H Hemoglobin A1c Lactic Acid Calcium Phosphorus Magnesium Ferritin AST ALT Alkaline Phosphatase Lactate Dehydrogenase C-Reactive Protein Total Protein Albumin Triglycerides Cholesterol Urine Creatinine Urine Microalbumin Vancomycin Trough Salicylates Acetaminophen 06/05/19 06/05/19 06/05/19 05:00 05:54 07:01 WBC RBC Hgb Hct MCH RDW Plt Count Lymph % (Auto) Seg Neutrophils % Seg Neuts % (Manual) Lymphocytes % (Manual) Monocytes % (Manual) Seg Neutrophils # Seg Neutrophils # Man Lymphocytes # (Manual) Monocytes # (Manual) D-Dimer ABG pH 7.621 H* ABG pO2 54.3 L ABG HCO3 29.8 H ABG O2 Saturation ABG Base Excess 8.8 H ABG Hemoglobin VBG pH Oxyhemoglobin Sodium Potassium Chloride Carbon Dioxide BUN Creatinine Glucose POC Glucose 155 H 145 H Hemoglobin A1c Lactic Acid Calcium Phosphorus Magnesium Ferritin AST ALT Alkaline Phosphatase Lactate Dehydrogenase C-Reactive Protein Total Protein Albumin Triglycerides Cholesterol Urine Creatinine Urine Microalbumin Vancomycin Trough Salicylates Acetaminophen 06/05/19 06/05/19 06/05/19 12:13 18:23 21:00 WBC RBC Hgb Hct MCH RDW Plt Count Lymph % (Auto) Seg Neutrophils % Seg Neuts % (Manual) Lymphocytes % (Manual) Monocytes % (Manual) Seg Neutrophils # Seg Neutrophils # Man Lymphocytes # (Manual) Monocytes # (Manual) D-Dimer ABG pH ABG pO2 ABG HCO3 ABG O2 Saturation ABG Base Excess ABG Hemoglobin VBG pH Oxyhemoglobin Sodium Potassium Chloride Carbon Dioxide BUN Creatinine Glucose POC Glucose 202 H 257 H Hemoglobin A1c Lactic Acid Calcium Phosphorus Magnesium Ferritin AST ALT Alkaline Phosphatase Lactate Dehydrogenase C-Reactive Protein Total Protein Albumin Triglycerides Cholesterol Urine Creatinine Urine Microalbumin Vancomycin Trough 4.2 L Salicylates Acetaminophen 06/05/19 06/06/19 06/06/19 23:55 04:16 04:37 WBC RBC Hgb Hct MCH RDW Plt Count Lymph % (Auto) Seg Neutrophils % Seg Neuts % (Manual) Lymphocytes % (Manual) Monocytes % (Manual) Seg Neutrophils # Seg Neutrophils # Man Lymphocytes # (Manual) Monocytes # (Manual) D-Dimer 1279.22 H ABG pH 7.600 H ABG pO2 62.4 L ABG HCO3 28.0 H ABG O2 Saturation ABG Base Excess 6.6 H ABG Hemoglobin 10.4 L VBG pH Oxyhemoglobin Sodium Potassium Chloride Carbon Dioxide BUN Creatinine Glucose POC Glucose 267 H Hemoglobin A1c Lactic Acid Calcium Phosphorus Magnesium Ferritin AST ALT Alkaline Phosphatase Lactate Dehydrogenase C-Reactive Protein Total Protein Albumin Triglycerides Cholesterol Urine Creatinine Urine Microalbumin Vancomycin Trough Salicylates Acetaminophen 06/06/19 06/06/19 06/06/19 04:37 04:37 04:37 WBC 12.2 H RBC 5.10 H Hgb Hct MCH 27 L RDW Plt Count Lymph % (Auto) Seg Neutrophils % Seg Neuts % (Manual) Lymphocytes % (Manual) Monocytes % (Manual) Seg Neutrophils # Seg Neutrophils # Man Lymphocytes # (Manual) Monocytes # (Manual) D-Dimer ABG pH ABG pO2 ABG HCO3 ABG O2 Saturation ABG Base Excess ABG Hemoglobin VBG pH Oxyhemoglobin Sodium 156 H Potassium 3.4 L Chloride 112.9 H Carbon Dioxide BUN 21 H Creatinine 0.6 L Glucose 332 H POC Glucose Hemoglobin A1c Lactic Acid Calcium Phosphorus Magnesium Ferritin 1649.0 H AST ALT Alkaline Phosphatase Lactate Dehydrogenase 578 H C-Reactive Protein 22.10 H Total Protein Albumin Triglycerides Cholesterol Urine Creatinine Urine Microalbumin Vancomycin Trough Salicylates Acetaminophen 06/06/19 06/06/19 06/06/19 05:45 11:55 12:21 WBC RBC Hgb Hct MCH RDW Plt Count Lymph % (Auto) Seg Neutrophils % Seg Neuts % (Manual) Lymphocytes % (Manual) Monocytes % (Manual) Seg Neutrophils # Seg Neutrophils # Man Lymphocytes # (Manual) Monocytes # (Manual) D-Dimer ABG pH 7.511 H ABG pO2 123.0 H ABG HCO3 29.7 H ABG O2 Saturation ABG Base Excess 6.4 H ABG Hemoglobin VBG pH Oxyhemoglobin Sodium Potassium Chloride Carbon Dioxide BUN Creatinine Glucose POC Glucose 303 H 281 H Hemoglobin A1c Lactic Acid Calcium Phosphorus Magnesium Ferritin AST ALT Alkaline Phosphatase Lactate Dehydrogenase C-Reactive Protein Total Protein Albumin Triglycerides Cholesterol Urine Creatinine Urine Microalbumin Vancomycin Trough Salicylates Acetaminophen 06/06/19 06/07/19 06/07/19 17:06 00:25 04:39 WBC RBC Hgb Hct MCH RDW Plt Count Lymph % (Auto) Seg Neutrophils % Seg Neuts % (Manual) Lymphocytes % (Manual) Monocytes % (Manual) Seg Neutrophils # Seg Neutrophils # Man Lymphocytes # (Manual) Monocytes # (Manual) D-Dimer ABG pH 7.507 H ABG pO2 46.4 L ABG HCO3 32.6 H ABG O2 Saturation 90.6 L ABG Base Excess 8.6 H ABG Hemoglobin VBG pH Oxyhemoglobin 89.2 L Sodium Potassium Chloride Carbon Dioxide BUN Creatinine Glucose POC Glucose 251 H 225 H Hemoglobin A1c Lactic Acid Calcium Phosphorus Magnesium Ferritin AST ALT Alkaline Phosphatase Lactate Dehydrogenase C-Reactive Protein Total Protein Albumin Triglycerides Cholesterol Urine Creatinine Urine Microalbumin Vancomycin Trough Salicylates Acetaminophen 06/07/19 06/07/19 06/07/19 04:43 04:43 04:43 WBC 13.6 H RBC 5.14 H Hgb Hct 43.4 H MCH 27 L RDW Plt Count Lymph % (Auto) Seg Neutrophils % Seg Neuts % (Manual) Lymphocytes % (Manual) Monocytes % (Manual) Seg Neutrophils # Seg Neutrophils # Man Lymphocytes # (Manual) Monocytes # (Manual) D-Dimer ABG pH ABG pO2 ABG HCO3 ABG O2 Saturation ABG Base Excess ABG Hemoglobin VBG pH Oxyhemoglobin Sodium 166 H* D Potassium 3.0 L Chloride 122.9 H Carbon Dioxide BUN 27 H Creatinine 0.5 L Glucose 265 H POC Glucose Hemoglobin A1c Lactic Acid Calcium Phosphorus Magnesium Ferritin AST ALT Alkaline Phosphatase Lactate Dehydrogenase C-Reactive Protein Total Protein Albumin Triglycerides 373 H Cholesterol Urine Creatinine Urine Microalbumin Vancomycin Trough Salicylates Acetaminophen 06/07/19 06/07/19 06/07/19 10:12 11:39 15:31 WBC RBC Hgb Hct MCH RDW Plt Count Lymph % (Auto) Seg Neutrophils % Seg Neuts % (Manual) Lymphocytes % (Manual) Monocytes % (Manual) Seg Neutrophils # Seg Neutrophils # Man Lymphocytes # (Manual) Monocytes # (Manual) D-Dimer ABG pH ABG pO2 ABG HCO3 ABG O2 Saturation ABG Base Excess ABG Hemoglobin VBG pH Oxyhemoglobin Sodium 163 H* 161 H* Potassium 3.1 L Chloride 117.7 H Carbon Dioxide BUN 22 H Creatinine 0.5 L Glucose 274 H POC Glucose 218 H Hemoglobin A1c Lactic Acid Calcium Phosphorus Magnesium Ferritin AST ALT Alkaline Phosphatase Lactate Dehydrogenase C-Reactive Protein Total Protein Albumin Triglycerides Cholesterol Urine Creatinine Urine Microalbumin Vancomycin Trough Salicylates Acetaminophen 06/07/19 06/08/19 06/08/19 17:16 00:04 03:45 WBC RBC Hgb Hct MCH RDW Plt Count Lymph % (Auto) Seg Neutrophils % Seg Neuts % (Manual) Lymphocytes % (Manual) Monocytes % (Manual) Seg Neutrophils # Seg Neutrophils # Man Lymphocytes # (Manual) Monocytes # (Manual) D-Dimer ABG pH 7.504 H ABG pO2 54.2 L ABG HCO3 32.3 H ABG O2 Saturation 93.7 L ABG Base Excess 8.4 H ABG Hemoglobin VBG pH Oxyhemoglobin 92.2 L Sodium Potassium Chloride Carbon Dioxide BUN Creatinine Glucose POC Glucose 284 H 283 H Hemoglobin A1c Lactic Acid Calcium Phosphorus Magnesium Ferritin AST ALT Alkaline Phosphatase Lactate Dehydrogenase C-Reactive Protein Total Protein Albumin Triglycerides Cholesterol Urine Creatinine Urine Microalbumin Vancomycin Trough Salicylates Acetaminophen 06/08/19 06/08/19 06/08/19 05:02 09:33 09:33 WBC RBC Hgb Hct MCH RDW Plt Count Lymph % (Auto) Seg Neutrophils % Seg Neuts % (Manual) Lymphocytes % (Manual) Monocytes % (Manual) Seg Neutrophils # Seg Neutrophils # Man Lymphocytes # (Manual) Monocytes # (Manual) D-Dimer 1319.18 H ABG pH ABG pO2 ABG HCO3 ABG O2 Saturation ABG Base Excess ABG Hemoglobin VBG pH Oxyhemoglobin Sodium Potassium Chloride Carbon Dioxide BUN Creatinine Glucose POC Glucose 291 H Hemoglobin A1c Lactic Acid Calcium Phosphorus Magnesium Ferritin 1274.0 H AST ALT Alkaline Phosphatase Lactate Dehydrogenase C-Reactive Protein Total Protein Albumin Triglycerides Cholesterol Urine Creatinine Urine Microalbumin Vancomycin Trough Salicylates Acetaminophen 06/08/19 06/08/19 06/08/19 09:33 09:33 17:46 WBC 16.0 H RBC Hgb Hct MCH 27 L RDW Plt Count Lymph % (Auto) Seg Neutrophils % Seg Neuts % (Manual) Lymphocytes % (Manual) Monocytes % (Manual) Seg Neutrophils # Seg Neutrophils # Man Lymphocytes # (Manual) Monocytes # (Manual) D-Dimer ABG pH ABG pO2 ABG HCO3 ABG O2 Saturation ABG Base Excess ABG Hemoglobin VBG pH Oxyhemoglobin Sodium 157 H Potassium 3.1 L Chloride 116.7 H Carbon Dioxide BUN 24 H Creatinine 0.5 L Glucose 351 H POC Glucose 309 H Hemoglobin A1c Lactic Acid Calcium Phosphorus 2.20 L Magnesium 2.60 H Ferritin AST ALT Alkaline Phosphatase 131 H Lactate Dehydrogenase 449 H C-Reactive Protein 9.70 H Total Protein 6.1 L Albumin 2.1 L Triglycerides Cholesterol Urine Creatinine Urine Microalbumin Vancomycin Trough Salicylates Acetaminophen 06/08/19 06/08/19 06/09/19 21:55 23:46 04:18 WBC RBC Hgb Hct MCH RDW Plt Count Lymph % (Auto) Seg Neutrophils % Seg Neuts % (Manual) Lymphocytes % (Manual) Monocytes % (Manual) Seg Neutrophils # Seg Neutrophils # Man Lymphocytes # (Manual) Monocytes # (Manual) D-Dimer ABG pH 7.480 H ABG pO2 70.9 L ABG HCO3 32.9 H ABG O2 Saturation ABG Base Excess 8.4 H ABG Hemoglobin 10.3 L VBG pH Oxyhemoglobin 94.8 L Sodium 151 H Potassium 3.3 L Chloride 112.7 H Carbon Dioxide 31 H BUN 24 H Creatinine 0.5 L Glucose 321 H POC Glucose 331 H Hemoglobin A1c Lactic Acid Calcium Phosphorus Magnesium Ferritin AST ALT Alkaline Phosphatase Lactate Dehydrogenase C-Reactive Protein Total Protein Albumin Triglycerides Cholesterol Urine Creatinine Urine Microalbumin Vancomycin Trough Salicylates Acetaminophen 06/09/19 06/09/19 06/09/19 05:35 07:34 07:34 WBC 14.2 H RBC Hgb Hct MCH 27 L RDW Plt Count Lymph % (Auto) Seg Neutrophils % Seg Neuts % (Manual) Lymphocytes % (Manual) Monocytes % (Manual) Seg Neutrophils # Seg Neutrophils # Man Lymphocytes # (Manual) Monocytes # (Manual) D-Dimer ABG pH ABG pO2 ABG HCO3 ABG O2 Saturation ABG Base Excess ABG Hemoglobin VBG pH Oxyhemoglobin Sodium 153 H Potassium 3.0 L Chloride 113.6 H Carbon Dioxide BUN 26 H Creatinine 0.5 L Glucose 306 H POC Glucose 264 H Hemoglobin A1c Lactic Acid Calcium Phosphorus Magnesium Ferritin AST ALT Alkaline Phosphatase Lactate Dehydrogenase 411 H C-Reactive Protein 6.00 H Total Protein Albumin Triglycerides 304 H Cholesterol Urine Creatinine Urine Microalbumin Vancomycin Trough Salicylates Acetaminophen 06/09/19 06/09/19 06/09/19 07:34 07:34 18:29 WBC RBC Hgb Hct MCH RDW Plt Count Lymph % (Auto) Seg Neutrophils % Seg Neuts % (Manual) Lymphocytes % (Manual) Monocytes % (Manual) Seg Neutrophils # Seg Neutrophils # Man Lymphocytes # (Manual) Monocytes # (Manual) D-Dimer 991.99 H ABG pH ABG pO2 ABG HCO3 ABG O2 Saturation ABG Base Excess ABG Hemoglobin VBG pH Oxyhemoglobin Sodium Potassium Chloride Carbon Dioxide BUN Creatinine Glucose POC Glucose 226 H Hemoglobin A1c Lactic Acid Calcium Phosphorus Magnesium Ferritin 1078.0 H AST ALT Alkaline Phosphatase Lactate Dehydrogenase C-Reactive Protein Total Protein Albumin Triglycerides Cholesterol Urine Creatinine Urine Microalbumin Vancomycin Trough Salicylates Acetaminophen 06/09/19 06/09/19 06/10/19 19:22 23:43 04:05 WBC RBC Hgb Hct MCH RDW Plt Count Lymph % (Auto) Seg Neutrophils % Seg Neuts % (Manual) Lymphocytes % (Manual) Monocytes % (Manual) Seg Neutrophils # Seg Neutrophils # Man Lymphocytes # (Manual) Monocytes # (Manual) D-Dimer ABG pH 7.472 H ABG pO2 63.0 L ABG HCO3 31.3 H ABG O2 Saturation 94.5 L ABG Base Excess 6.9 H ABG Hemoglobin VBG pH Oxyhemoglobin 93.0 L Sodium Potassium Chloride 110.1 H Carbon Dioxide BUN 20 H Creatinine 0.4 L Glucose 237 H POC Glucose 177 H Hemoglobin A1c Lactic Acid Calcium Phosphorus Magnesium Ferritin AST ALT Alkaline Phosphatase Lactate Dehydrogenase C-Reactive Protein Total Protein Albumin Triglycerides Cholesterol Urine Creatinine Urine Microalbumin Vancomycin Trough Salicylates Acetaminophen 06/10/19 06/10/19 06/10/19 06:28 12:30 18:08 WBC RBC Hgb Hct MCH RDW Plt Count Lymph % (Auto) Seg Neutrophils % Seg Neuts % (Manual) Lymphocytes % (Manual) Monocytes % (Manual) Seg Neutrophils # Seg Neutrophils # Man Lymphocytes # (Manual) Monocytes # (Manual) D-Dimer ABG pH ABG pO2 ABG HCO3 ABG O2 Saturation ABG Base Excess ABG Hemoglobin VBG pH Oxyhemoglobin Sodium Potassium Chloride Carbon Dioxide BUN Creatinine Glucose POC Glucose 172 H 166 H 172 H Hemoglobin A1c Lactic Acid Calcium Phosphorus Magnesium Ferritin AST ALT Alkaline Phosphatase Lactate Dehydrogenase C-Reactive Protein Total Protein Albumin Triglycerides Cholesterol Urine Creatinine Urine Microalbumin Vancomycin Trough Salicylates Acetaminophen 06/10/19 06/10/19 06/10/19 23:53 Unknown Unknown WBC 13.7 H RBC Hgb Hct MCH RDW Plt Count 84 L Lymph % (Auto) Seg Neutrophils % Seg Neuts % (Manual) Lymphocytes % (Manual) Monocytes % (Manual) Seg Neutrophils # Seg Neutrophils # Man Lymphocytes # (Manual) Monocytes # (Manual) D-Dimer ABG pH ABG pO2 ABG HCO3 ABG O2 Saturation ABG Base Excess ABG Hemoglobin VBG pH Oxyhemoglobin Sodium 148 H Potassium 3.3 L Chloride 111.5 H Carbon Dioxide BUN 20 H Creatinine 0.4 L Glucose 185 H POC Glucose 186 H Hemoglobin A1c Lactic Acid Calcium Phosphorus Magnesium Ferritin AST ALT Alkaline Phosphatase Lactate Dehydrogenase C-Reactive Protein Total Protein Albumin Triglycerides Cholesterol Urine Creatinine Urine Microalbumin Vancomycin Trough Salicylates Acetaminophen 06/11/19 06/11/19 06/11/19 04:31 04:31 04:31 WBC RBC Hgb Hct MCH RDW Plt Count Lymph % (Auto) Seg Neutrophils % Seg Neuts % (Manual) Lymphocytes % (Manual) Monocytes % (Manual) Seg Neutrophils # Seg Neutrophils # Man Lymphocytes # (Manual) Monocytes # (Manual) D-Dimer 1206.09 H ABG pH ABG pO2 ABG HCO3 ABG O2 Saturation ABG Base Excess ABG Hemoglobin VBG pH Oxyhemoglobin Sodium 146 H Potassium 3.3 L Chloride 109.4 H Carbon Dioxide BUN Creatinine 0.5 L Glucose 186 H POC Glucose Hemoglobin A1c Lactic Acid Calcium Phosphorus Magnesium Ferritin 905.9 H AST ALT Alkaline Phosphatase Lactate Dehydrogenase 417 H C-Reactive Protein 3.30 H Total Protein Albumin Triglycerides Cholesterol Urine Creatinine Urine Microalbumin Vancomycin Trough Salicylates Acetaminophen 06/11/19 06/11/19 06/11/19 04:31 05:35 11:41 WBC 17.0 H RBC Hgb Hct MCH 27 L RDW Plt Count Lymph % (Auto) Seg Neutrophils % Seg Neuts % (Manual) Lymphocytes % (Manual) Monocytes % (Manual) Seg Neutrophils # Seg Neutrophils # Man Lymphocytes # (Manual) Monocytes # (Manual) D-Dimer ABG pH ABG pO2 ABG HCO3 ABG O2 Saturation ABG Base Excess ABG Hemoglobin VBG pH Oxyhemoglobin Sodium Potassium Chloride Carbon Dioxide BUN Creatinine Glucose POC Glucose 151 H 209 H Hemoglobin A1c Lactic Acid Calcium Phosphorus Magnesium Ferritin AST ALT Alkaline Phosphatase Lactate Dehydrogenase C-Reactive Protein Total Protein Albumin Triglycerides Cholesterol Urine Creatinine Urine Microalbumin Vancomycin Trough Salicylates Acetaminophen 06/11/19 06/11/19 06/12/19 17:27 23:52 03:58 WBC 14.9 H RBC Hgb Hct MCH RDW Plt Count Lymph % (Auto) Seg Neutrophils % Seg Neuts % (Manual) 72.0 H Lymphocytes % (Manual) 13.0 L Monocytes % (Manual) 13.0 H Seg Neutrophils # Seg Neutrophils # Man 10.7 H Lymphocytes # (Manual) Monocytes # (Manual) 1.9 H D-Dimer ABG pH ABG pO2 ABG HCO3 ABG O2 Saturation ABG Base Excess ABG Hemoglobin VBG pH Oxyhemoglobin Sodium Potassium Chloride Carbon Dioxide BUN Creatinine Glucose POC Glucose 181 H 223 H Hemoglobin A1c Lactic Acid Calcium Phosphorus Magnesium Ferritin AST ALT Alkaline Phosphatase Lactate Dehydrogenase C-Reactive Protein Total Protein Albumin Triglycerides Cholesterol Urine Creatinine Urine Microalbumin Vancomycin Trough Salicylates Acetaminophen 06/12/19 06/12/19 06/12/19 03:58 04:44 10:30 WBC RBC Hgb Hct MCH RDW Plt Count Lymph % (Auto) Seg Neutrophils % Seg Neuts % (Manual) Lymphocytes % (Manual) Monocytes % (Manual) Seg Neutrophils # Seg Neutrophils # Man Lymphocytes # (Manual) Monocytes # (Manual) D-Dimer ABG pH 7.456 H ABG pO2 ABG HCO3 32.7 H ABG O2 Saturation ABG Base Excess 7.7 H ABG Hemoglobin VBG pH Oxyhemoglobin Sodium Potassium 3.4 L Chloride Carbon Dioxide BUN Creatinine 0.4 L Glucose 242 H POC Glucose 203 H Hemoglobin A1c Lactic Acid Calcium Phosphorus Magnesium Ferritin AST 103 H ALT 101 H Alkaline Phosphatase Lactate Dehydrogenase C-Reactive Protein Total Protein 5.9 L Albumin 2.3 L Triglycerides Cholesterol Urine Creatinine Urine Microalbumin Vancomycin Trough Salicylates Acetaminophen 06/12/19 06/13/19 06/13/19 12:01 00:03 02:51 WBC RBC Hgb Hct MCH RDW Plt Count Lymph % (Auto) Seg Neutrophils % Seg Neuts % (Manual) Lymphocytes % (Manual) Monocytes % (Manual) Seg Neutrophils # Seg Neutrophils # Man Lymphocytes # (Manual) Monocytes # (Manual) D-Dimer ABG pH ABG pO2 ABG HCO3 ABG O2 Saturation ABG Base Excess ABG Hemoglobin VBG pH Oxyhemoglobin Sodium Potassium Chloride Carbon Dioxide BUN Creatinine Glucose POC Glucose 178 H 127 H Hemoglobin A1c Lactic Acid Calcium Phosphorus Magnesium Ferritin AST ALT Alkaline Phosphatase Lactate Dehydrogenase 807 H C-Reactive Protein 3.40 H Total Protein Albumin Triglycerides Cholesterol Urine Creatinine Urine Microalbumin Vancomycin Trough Salicylates Acetaminophen 06/13/19 06/13/19 06/13/19 05:17 09:23 09:23 WBC RBC Hgb Hct MCH RDW Plt Count Lymph % (Auto) Seg Neutrophils % Seg Neuts % (Manual) Lymphocytes % (Manual) Monocytes % (Manual) Seg Neutrophils # Seg Neutrophils # Man Lymphocytes # (Manual) Monocytes # (Manual) D-Dimer 1401.68 H ABG pH ABG pO2 ABG HCO3 ABG O2 Saturation ABG Base Excess ABG Hemoglobin VBG pH Oxyhemoglobin Sodium Potassium Chloride Carbon Dioxide BUN Creatinine Glucose POC Glucose 161 H Hemoglobin A1c Lactic Acid Calcium Phosphorus Magnesium Ferritin 1942.0 H AST ALT Alkaline Phosphatase Lactate Dehydrogenase C-Reactive Protein Total Protein Albumin Triglycerides Cholesterol Urine Creatinine Urine Microalbumin Vancomycin Trough Salicylates Acetaminophen 06/13/19 06/13/19 06/14/19 12:03 18:17 00:03 WBC RBC Hgb Hct MCH RDW Plt Count Lymph % (Auto) Seg Neutrophils % Seg Neuts % (Manual) Lymphocytes % (Manual) Monocytes % (Manual) Seg Neutrophils # Seg Neutrophils # Man Lymphocytes # (Manual) Monocytes # (Manual) D-Dimer ABG pH ABG pO2 ABG HCO3 ABG O2 Saturation ABG Base Excess ABG Hemoglobin VBG pH Oxyhemoglobin Sodium Potassium Chloride Carbon Dioxide BUN Creatinine Glucose POC Glucose 147 H 172 H 168 H Hemoglobin A1c Lactic Acid Calcium Phosphorus Magnesium Ferritin AST ALT Alkaline Phosphatase Lactate Dehydrogenase C-Reactive Protein Total Protein Albumin Triglycerides Cholesterol Urine Creatinine Urine Microalbumin Vancomycin Trough Salicylates Acetaminophen 06/14/19 06/14/19 06/14/19 05:43 12:22 14:44 WBC 14.0 H RBC 5.86 H Hgb 16.2 H D Hct 49.3 H D MCH RDW Plt Count Lymph % (Auto) Seg Neutrophils % Seg Neuts % (Manual) 81.0 H Lymphocytes % (Manual) 10.0 L Monocytes % (Manual) Seg Neutrophils # Seg Neutrophils # Man 11.3 H Lymphocytes # (Manual) Monocytes # (Manual) 1.0 H D-Dimer ABG pH ABG pO2 ABG HCO3 ABG O2 Saturation ABG Base Excess ABG Hemoglobin VBG pH Oxyhemoglobin Sodium Potassium Chloride Carbon Dioxide BUN Creatinine Glucose POC Glucose 178 H 218 H Hemoglobin A1c Lactic Acid Calcium Phosphorus Magnesium Ferritin AST ALT Alkaline Phosphatase Lactate Dehydrogenase C-Reactive Protein Total Protein Albumin Triglycerides Cholesterol Urine Creatinine Urine Microalbumin Vancomycin Trough Salicylates Acetaminophen 06/14/19 06/14/19 06/14/19 14:44 16:35 18:01 WBC RBC Hgb Hct MCH RDW Plt Count Lymph % (Auto) Seg Neutrophils % Seg Neuts % (Manual) Lymphocytes % (Manual) Monocytes % (Manual) Seg Neutrophils # Seg Neutrophils # Man Lymphocytes # (Manual) Monocytes # (Manual) D-Dimer ABG pH 7.488 H ABG pO2 66.1 L ABG HCO3 30.2 H ABG O2 Saturation 94.7 L ABG Base Excess 6.3 H ABG Hemoglobin VBG pH Oxyhemoglobin 93.3 L Sodium Potassium 3.4 L Chloride Carbon Dioxide BUN Creatinine 0.3 L Glucose 296 H POC Glucose 215 H Hemoglobin A1c Lactic Acid Calcium Phosphorus Magnesium Ferritin AST ALT Alkaline Phosphatase Lactate Dehydrogenase C-Reactive Protein Total Protein Albumin Triglycerides Cholesterol Urine Creatinine Urine Microalbumin Vancomycin Trough Salicylates Acetaminophen 06/15/19 06/15/19 06/15/19 00:34 04:00 04:00 WBC RBC Hgb Hct MCH RDW Plt Count Lymph % (Auto) Seg Neutrophils % Seg Neuts % (Manual) Lymphocytes % (Manual) Monocytes % (Manual) Seg Neutrophils # Seg Neutrophils # Man Lymphocytes # (Manual) Monocytes # (Manual) D-Dimer 836.6 H ABG pH ABG pO2 ABG HCO3 ABG O2 Saturation ABG Base Excess ABG Hemoglobin VBG pH Oxyhemoglobin Sodium Potassium Chloride Carbon Dioxide BUN Creatinine Glucose POC Glucose 229 H Hemoglobin A1c Lactic Acid Calcium Phosphorus Magnesium Ferritin 908.8 H AST ALT Alkaline Phosphatase Lactate Dehydrogenase C-Reactive Protein Total Protein Albumin Triglycerides Cholesterol Urine Creatinine Urine Microalbumin Vancomycin Trough Salicylates Acetaminophen 06/15/19 06/15/19 06/15/19 04:00 04:00 06:24 WBC 15.6 H RBC Hgb Hct MCH 27 L RDW Plt Count Lymph % (Auto) 10.9 L Seg Neutrophils % 84.1 H Seg Neuts % (Manual) Lymphocytes % (Manual) Monocytes % (Manual) Seg Neutrophils # 13.1 H Seg Neutrophils # Man Lymphocytes # (Manual) Monocytes # (Manual) D-Dimer ABG pH ABG pO2 ABG HCO3 ABG O2 Saturation ABG Base Excess ABG Hemoglobin VBG pH Oxyhemoglobin Sodium Potassium 3.3 L Chloride Carbon Dioxide 31 H D BUN Creatinine 0.4 L Glucose 199 H POC Glucose 192 H Hemoglobin A1c Lactic Acid Calcium Phosphorus Magnesium Ferritin AST ALT Alkaline Phosphatase Lactate Dehydrogenase 386 H C-Reactive Protein 17.00 H Total Protein Albumin Triglycerides Cholesterol Urine Creatinine Urine Microalbumin Vancomycin Trough Salicylates Acetaminophen 06/15/19 06/15/19 06/15/19 12:05 17:02 21:00 WBC RBC Hgb Hct MCH RDW Plt Count Lymph % (Auto) Seg Neutrophils % Seg Neuts % (Manual) Lymphocytes % (Manual) Monocytes % (Manual) Seg Neutrophils # Seg Neutrophils # Man Lymphocytes # (Manual) Monocytes # (Manual) D-Dimer ABG pH ABG pO2 ABG HCO3 ABG O2 Saturation ABG Base Excess ABG Hemoglobin VBG pH Oxyhemoglobin Sodium Potassium Chloride Carbon Dioxide BUN Creatinine Glucose POC Glucose 271 H 239 H 211 H Hemoglobin A1c Lactic Acid Calcium Phosphorus Magnesium Ferritin AST ALT Alkaline Phosphatase Lactate Dehydrogenase C-Reactive Protein Total Protein Albumin Triglycerides Cholesterol Urine Creatinine Urine Microalbumin Vancomycin Trough Salicylates Acetaminophen 06/16/19 06/16/19 06/16/19 00:13 05:16 05:16 WBC 12.4 H RBC Hgb Hct MCH RDW Plt Count Lymph % (Auto) Seg Neutrophils % Seg Neuts % (Manual) Lymphocytes % (Manual) Monocytes % (Manual) Seg Neutrophils # Seg Neutrophils # Man Lymphocytes # (Manual) Monocytes # (Manual) D-Dimer ABG pH ABG pO2 ABG HCO3 ABG O2 Saturation ABG Base Excess ABG Hemoglobin VBG pH Oxyhemoglobin Sodium Potassium 3.4 L Chloride Carbon Dioxide BUN Creatinine 0.5 L Glucose 215 H POC Glucose 230 H Hemoglobin A1c Lactic Acid Calcium Phosphorus Magnesium Ferritin AST ALT Alkaline Phosphatase Lactate Dehydrogenase C-Reactive Protein Total Protein Albumin Triglycerides Cholesterol Urine Creatinine Urine Microalbumin Vancomycin Trough Salicylates Acetaminophen 06/16/19 06/16/19 06/16/19 08:05 12:17 16:44 WBC RBC Hgb Hct MCH RDW Plt Count Lymph % (Auto) Seg Neutrophils % Seg Neuts % (Manual) Lymphocytes % (Manual) Monocytes % (Manual) Seg Neutrophils # Seg Neutrophils # Man Lymphocytes # (Manual) Monocytes # (Manual) D-Dimer ABG pH ABG pO2 ABG HCO3 ABG O2 Saturation ABG Base Excess ABG Hemoglobin VBG pH Oxyhemoglobin Sodium Potassium Chloride Carbon Dioxide BUN Creatinine Glucose POC Glucose 220 H 195 H 223 H Hemoglobin A1c Lactic Acid Calcium Phosphorus Magnesium Ferritin AST ALT Alkaline Phosphatase Lactate Dehydrogenase C-Reactive Protein Total Protein Albumin Triglycerides Cholesterol Urine Creatinine Urine Microalbumin Vancomycin Trough Salicylates Acetaminophen 06/17/19 06/17/19 06/17/19 00:07 05:42 12:07 WBC RBC Hgb Hct MCH RDW Plt Count Lymph % (Auto) Seg Neutrophils % Seg Neuts % (Manual) Lymphocytes % (Manual) Monocytes % (Manual) Seg Neutrophils # Seg Neutrophils # Man Lymphocytes # (Manual) Monocytes # (Manual) D-Dimer ABG pH ABG pO2 ABG HCO3 ABG O2 Saturation ABG Base Excess ABG Hemoglobin VBG pH Oxyhemoglobin Sodium Potassium Chloride Carbon Dioxide BUN Creatinine Glucose POC Glucose 201 H 191 H 269 H Hemoglobin A1c Lactic Acid Calcium Phosphorus Magnesium Ferritin AST ALT Alkaline Phosphatase Lactate Dehydrogenase C-Reactive Protein Total Protein Albumin Triglycerides Cholesterol Urine Creatinine Urine Microalbumin Vancomycin Trough Salicylates Acetaminophen 06/17/19 06/18/19 06/18/19 17:40 00:05 05:32 WBC RBC Hgb Hct MCH RDW Plt Count Lymph % (Auto) Seg Neutrophils % Seg Neuts % (Manual) Lymphocytes % (Manual) Monocytes % (Manual) Seg Neutrophils # Seg Neutrophils # Man Lymphocytes # (Manual) Monocytes # (Manual) D-Dimer ABG pH ABG pO2 ABG HCO3 ABG O2 Saturation ABG Base Excess ABG Hemoglobin VBG pH Oxyhemoglobin Sodium Potassium Chloride Carbon Dioxide BUN Creatinine Glucose POC Glucose 266 H 222 H 273 H Hemoglobin A1c Lactic Acid Calcium Phosphorus Magnesium Ferritin AST ALT Alkaline Phosphatase Lactate Dehydrogenase C-Reactive Protein Total Protein Albumin Triglycerides Cholesterol Urine Creatinine Urine Microalbumin Vancomycin Trough Salicylates Acetaminophen 06/18/19 06/18/19 06/18/19 11:59 17:40 17:58 WBC RBC Hgb Hct MCH RDW Plt Count Lymph % (Auto) Seg Neutrophils % Seg Neuts % (Manual) Lymphocytes % (Manual) Monocytes % (Manual) Seg Neutrophils # Seg Neutrophils # Man Lymphocytes # (Manual) Monocytes # (Manual) D-Dimer ABG pH ABG pO2 ABG HCO3 ABG O2 Saturation ABG Base Excess ABG Hemoglobin VBG pH Oxyhemoglobin Sodium Potassium Chloride Carbon Dioxide BUN Creatinine Glucose POC Glucose 299 H 272 H 301 H Hemoglobin A1c Lactic Acid Calcium Phosphorus Magnesium Ferritin AST ALT Alkaline Phosphatase Lactate Dehydrogenase C-Reactive Protein Total Protein Albumin Triglycerides Cholesterol Urine Creatinine Urine Microalbumin Vancomycin Trough Salicylates Acetaminophen 06/18/19 06/18/19 06/19/19 20:48 23:30 06:05 WBC RBC Hgb Hct MCH RDW Plt Count Lymph % (Auto) Seg Neutrophils % Seg Neuts % (Manual) Lymphocytes % (Manual) Monocytes % (Manual) Seg Neutrophils # Seg Neutrophils # Man Lymphocytes # (Manual) Monocytes # (Manual) D-Dimer ABG pH ABG pO2 ABG HCO3 ABG O2 Saturation ABG Base Excess ABG Hemoglobin VBG pH Oxyhemoglobin Sodium Potassium Chloride Carbon Dioxide BUN Creatinine Glucose POC Glucose 282 H 283 H 294 H Hemoglobin A1c Lactic Acid Calcium Phosphorus Magnesium Ferritin AST ALT Alkaline Phosphatase Lactate Dehydrogenase C-Reactive Protein Total Protein Albumin Triglycerides Cholesterol Urine Creatinine Urine Microalbumin Vancomycin Trough Salicylates Acetaminophen 06/19/19 06/19/19 06/20/19 12:50 18:34 01:27 WBC RBC Hgb Hct MCH RDW Plt Count Lymph % (Auto) Seg Neutrophils % Seg Neuts % (Manual) Lymphocytes % (Manual) Monocytes % (Manual) Seg Neutrophils # Seg Neutrophils # Man Lymphocytes # (Manual) Monocytes # (Manual) D-Dimer ABG pH ABG pO2 ABG HCO3 ABG O2 Saturation ABG Base Excess ABG Hemoglobin VBG pH Oxyhemoglobin Sodium Potassium Chloride Carbon Dioxide BUN Creatinine Glucose POC Glucose 287 H 328 H 252 H Hemoglobin A1c Lactic Acid Calcium Phosphorus Magnesium Ferritin AST ALT Alkaline Phosphatase Lactate Dehydrogenase C-Reactive Protein Total Protein Albumin Triglycerides Cholesterol Urine Creatinine Urine Microalbumin Vancomycin Trough Salicylates Acetaminophen 06/20/19 06/20/19 06/20/19 04:50 04:54 12:46 WBC RBC Hgb Hct MCH RDW Plt Count Lymph % (Auto) Seg Neutrophils % Seg Neuts % (Manual) Lymphocytes % (Manual) Monocytes % (Manual) Seg Neutrophils # Seg Neutrophils # Man Lymphocytes # (Manual) Monocytes # (Manual) D-Dimer ABG pH ABG pO2 ABG HCO3 ABG O2 Saturation ABG Base Excess ABG Hemoglobin VBG pH Oxyhemoglobin Sodium 147 H Potassium Chloride Carbon Dioxide 31 H BUN Creatinine 0.4 L Glucose 323 H POC Glucose 290 H 278 H Hemoglobin A1c Lactic Acid Calcium Phosphorus Magnesium Ferritin AST ALT Alkaline Phosphatase Lactate Dehydrogenase C-Reactive Protein Total Protein Albumin Triglycerides Cholesterol Urine Creatinine Urine Microalbumin Vancomycin Trough Salicylates Acetaminophen 06/20/19 06/21/19 06/21/19 18:06 00:17 05:27 WBC RBC Hgb Hct MCH RDW Plt Count Lymph % (Auto) Seg Neutrophils % Seg Neuts % (Manual) Lymphocytes % (Manual) Monocytes % (Manual) Seg Neutrophils # Seg Neutrophils # Man Lymphocytes # (Manual) Monocytes # (Manual) D-Dimer ABG pH ABG pO2 ABG HCO3 ABG O2 Saturation ABG Base Excess ABG Hemoglobin VBG pH Oxyhemoglobin Sodium Potassium Chloride Carbon Dioxide BUN Creatinine Glucose POC Glucose 292 H 297 H 277 H Hemoglobin A1c Lactic Acid Calcium Phosphorus Magnesium Ferritin AST ALT Alkaline Phosphatase Lactate Dehydrogenase C-Reactive Protein Total Protein Albumin Triglycerides Cholesterol Urine Creatinine Urine Microalbumin Vancomycin Trough Salicylates Acetaminophen 06/21/19 06/21/19 06/22/19 12:17 19:23 00:11 WBC RBC Hgb Hct MCH RDW Plt Count Lymph % (Auto) Seg Neutrophils % Seg Neuts % (Manual) Lymphocytes % (Manual) Monocytes % (Manual) Seg Neutrophils # Seg Neutrophils # Man Lymphocytes # (Manual) Monocytes # (Manual) D-Dimer ABG pH ABG pO2 ABG HCO3 ABG O2 Saturation ABG Base Excess ABG Hemoglobin VBG pH Oxyhemoglobin Sodium Potassium Chloride Carbon Dioxide BUN Creatinine Glucose POC Glucose 302 H 348 H 232 H Hemoglobin A1c Lactic Acid Calcium Phosphorus Magnesium Ferritin AST ALT Alkaline Phosphatase Lactate Dehydrogenase C-Reactive Protein Total Protein Albumin Triglycerides Cholesterol Urine Creatinine Urine Microalbumin Vancomycin Trough Salicylates Acetaminophen 06/22/19 06/22/19 06/22/19 05:30 12:05 18:15 WBC RBC Hgb Hct MCH RDW Plt Count Lymph % (Auto) Seg Neutrophils % Seg Neuts % (Manual) Lymphocytes % (Manual) Monocytes % (Manual) Seg Neutrophils # Seg Neutrophils # Man Lymphocytes # (Manual) Monocytes # (Manual) D-Dimer ABG pH ABG pO2 ABG HCO3 ABG O2 Saturation ABG Base Excess ABG Hemoglobin VBG pH Oxyhemoglobin Sodium Potassium Chloride Carbon Dioxide BUN Creatinine Glucose POC Glucose 313 H 341 H 286 H Hemoglobin A1c Lactic Acid Calcium Phosphorus Magnesium Ferritin AST ALT Alkaline Phosphatase Lactate Dehydrogenase C-Reactive Protein Total Protein Albumin Triglycerides Cholesterol Urine Creatinine Urine Microalbumin Vancomycin Trough Salicylates Acetaminophen 06/22/19 06/23/19 22:52 05:00 WBC RBC Hgb Hct MCH RDW Plt Count Lymph % (Auto) Seg Neutrophils % Seg Neuts % (Manual) Lymphocytes % (Manual) Monocytes % (Manual) Seg Neutrophils # Seg Neutrophils # Man Lymphocytes # (Manual) Monocytes # (Manual) D-Dimer ABG pH ABG pO2 ABG HCO3 ABG O2 Saturation ABG Base Excess ABG Hemoglobin VBG pH Oxyhemoglobin Sodium Potassium Chloride Carbon Dioxide BUN Creatinine Glucose POC Glucose 333 H 281 H Hemoglobin A1c Lactic Acid Calcium Phosphorus Magnesium Ferritin AST ALT Alkaline Phosphatase Lactate Dehydrogenase C-Reactive Protein Total Protein Albumin Triglycerides Cholesterol Urine Creatinine Urine Microalbumin Vancomycin Trough Salicylates Acetaminophen Allied health notes reviewed: RT
--- NOTE | 2019-06-23 10:22 | Discharge Summary ---
Providers - Providers Date of Admission: 06/03/19 13:57 Date of discharge: 06/23/19 Attending physician: CONSTANCE ARORA 06/03/19 11:03 Consult to Dietitian/Nutrition [CONS] Routine Physician Instructions: Reason For Exam: Reason for Consult: Evaluate nutritional intake 06/03/19 11:58 Speech Therapy Evaluation and Treat [CONS] Routine Reason For Exam: intubated; failed bedside 06/03/19 13:20 Consult to Physician [CONS] Stat Comment: Consulting Provider: AJAY BARBOUR Physician Instructions: Reason For Exam: suspected COVID 06/03/19 13:57 Consult to Physician [CONS] Routine Comment: Consulting Provider: SAMRA BENNETT Physician Instructions: Reason For Exam: dka 06/05/19 09:27 Consult to Dietitian/Nutrition [CONS] Routine Physician Instructions: Reason For Exam: Reason for Consult: Write/Manage Tube Feeding 06/07/19 11:21 Consult to Physician [CONS] Routine Comment: Consulting Provider: SALOMON GUEVARA Physician Instructions: Reason For Exam: HYPERNATREMIA 06/13/19 12:21 Speech Therapy Evaluation and Treat [CONS] Routine Reason For Exam: Swallow evaluation (Drools while drinking water) 06/14/19 11:24 Occupational Therapy Evaluate and Treat [CONS] Routine Comment: Reason For Exam: critical illness myopathy Physical Therapy Evaluation and Treat [CONS] Routine Comment: Reason For Exam: critical illness myopathy 06/16/19 15:25 Consult to Dietitian/Nutrition [CONS] Routine Physician Instructions: Reason For Exam: Reason for Consult: Write/Manage Tube Feeding Primary care physician: MANAGER PROPERTY Hospitalization Condition: Fair Hospital course: Patient is a 48-year-old woman with a history of hypertension and type 2 diabetes mellitus events who presented to [facility] ED with altered mental status, not moving her right side and hypoxic at 77% room air. Patient had been ill with fever cough for the past several days. She recently returned back from [place]. She went to [place] to celebrate her mother's birthday. When she came back from [place] last Saturday prior to arrival, she developed a fever. EMS discovered patient to be altered with work of breathing. Patient is nonverbal. She was Blood pressure was 140/97. Blood sugar was elevated fingerstick. Her doctor ordered test for COVID-19. Dr. Rausch her PCP informed patient that she tested negative. On admission she was noted to be in DKA and started on DKA protocol. She required mechanical ventilation for oxygenation and airway control. Initially was not moving her right side. With oxygen supplementation she began to move both of her arms. She continued to be nonverbal. She did not follow commands prior to intubation. With CT chest findings, COVID 19 was suspected; although she previously tested negative, there was a suspicion of false negative test so she was retested. COVID 19 test results came back positive and was advised to quarantine himself. Mekhi Love * EKG shows sinus tachycardia with MAT * CT head no acute intracranial process * CT patchy groundglass consolidative airspace disease right mid to lower lung Discharge Diagnoses: COVID 19 Induced Pneumonia, Continue COVID isolation precautions per [facility] protocol S/P Plaquenil and azithromycin X 5 DAYS Acute hypoxic respiratory failure mild on mechanical ventilation Hypernatremia-remains elevated will increase free water. Hypertension Acute metabolic encephalopathy Right upper extremity weakness now resolved Pneumonia Hypokalemia Leukocytosis Sepsis secondary to pneumonia-with hypothermia Severe metabolic acidosis DKA-resolved Diabetes mellitus with uncontrolled blood sugar Plan 06/04: Remains on full mechanical support. Patient with respiratory alkalosis noted. Adjustment made to the ventilator to decrease the rate. Will replace potassium as hypokalemia still persist. Hypernatremia gradually improving will adjust free water. Patient's anion gap is finally closed will transition to sliding scale coverage with Lantus. Anticipate weaning trial today if patient is amendable to it. Oxygen at requirements per vent settings appears to be improving 06/05: Leukocytosis improving although patient still hypoxic on the ventilator. Awaiting COVID 19 testing results. In addition continue antibiotics for broad- spectrum coverage. Will adjust insulin for better blood sugar control. 06/06: We will increase free water to 300 cc every 4 hours. We will also obtain consultation from road machine operator. Otherwise continue current therapy. Also noted to have diastolic hypertension will adjust blood pressure medications. Initiated home meds. 06/07: Sodium gradually improving, will adjust free water to 350 while awaiting todays lab and road machine operator. Patient still with non purposeful movement. Will discuss with ID about possible trial drug Ivermectin. Adjust basal insulin to 40 units BID 06/08: ID and pulmonary considering trial of the new medication ivermectin as patient's inflammatory markers went back up. Sodium mildly elevated. In addition to blood sugar. Discontinued D5 water which could be leading to elevated blood sugar. Will adjust free water to 400 every 4 hours. Nephrology following 06/09: Continue supportive care, Continue Management per ID and Critical care team. 06/10 weaning in progress, on D5W for correcting the hypernatremia. Potassium supplemented 06/12/19 probable extubation tomorrow 06/13/19: Extubated today 06/14/19 For transfer to floor 06/14: Patient unable to Transfer to the floor as she became hypoxic requiring Highflow oxygen, Low potassium noted, will replace, monitor Blood glucose. Exam limited due to limited PPE. Inflammatory markers improving. 06/15: Still concern for possible decompensation. Will continue on ICU status at this time. Aspiration precautions. Continue high flow. Replace electrolytes as needed. 06/16: Discussed with Parking Garage Manager, patient still on High flow oxygen and failed swallow evaluation yesterday. We will continue to follow. We will continue ICU care at this time. A Dobbhoff has been placed for nutritional support. I have updated the patient's and patient's improvement so far. 06/18/19: Patient clinically continues to improve. We will downgrade to stepdown still on high flow tolerating tube feeds. 06/18: Awaiting repeat COVID Test, continue rehab, Lantus adjusted for better control,. Oxygen down to 60% High flow needs, maintining sats but still very lethargic 06/19: gradually improving, I have requested repeat COVID19 TEST TODAY, LAST TEST ON THE WAS negative, with one additional negative she can be discharged to LTAC as she is still on high flow 06/20: Patient now has to confirm negative test 48 hours apart will anticipate transfer to LTAC in a.m. to continue weaning from high flow. We will check a chest x-ray and also obtain an ultrasound of the right upper extremity due to noted edema. 06/21: Continues stable, oxygen weaning down, awaiting LTAC 06/23/2019: Day 20, first day with patient on 40% high flow, doing better. D/C to [facility] today Disposition: [id number] MEDICARE CERT LT Time spent for discharge: 33 minutes Core Measure Documentation - Palliative Care Palliative Care/ Comfort Measures: Not Applicable - Core Measures Any of the following diagnoses?: none - VTE Discharge Requirements Deep Vein Thrombosis/Pulmonary Embolism Present on Admission: No Has pt received <5 days of overlap therapy or INR<2.0: No Anticoagulant overlap therapy prescribed at discharge: No Contraindication No Overlap Therapy order at DC: Not Indicated Exam - Physical Exam Narrative exam: Gen: deconditioned, no acute distress, awake, alert and oriented x 3 CVS/Heart: RRR, normal S1S2, pulses present bilaterally Chest/Lungs: diminished bs bilateral Symmetrical chest expansion, good air entry bilaterally GI/Abdomen: soft, NTND, good bowel sounds, no guarding or rebound Extermity/Skin: no c/c/e, no obvious rash MSK: FROM x 4 Neuro: CN 2-12 grossly intact, no new focal deficits Psych: calm - Constitutional Vitals: Temp Pulse Resp BP Pulse Ox 98.5 F 83 20 133/81 96 06/23/19 08:00 06/23/19 08:48 06/23/19 07:00 06/23/19 08:48 06/23/19 08:03 Plan Activity: other (no strenous activity) Diet: low salt, diabetic Special Instructions: record daily BP diary, record blood sugar diary (achs) Follow up with: PRIMARY CARE, [Primary Care Provider] - 7 Days Prescriptions: Albuterol INH(or & Nicu Only) [ProAir HFA Inhaler] 2 puff IH QID PRN #1 PRN Reason: Shortness Of Breath
--- NOTE | 2019-06-23 13:42 | Progress Note ---
Assessment and Plan Cultures: Blood culture 06/03/2019 Micrococcus 1 of 4 Urine culture 06/03/2019 no growth Assessment: 48 year old female with history of diabetes, hypertension admitted on 06/03/2019 due to acute altered mental status and shortness of breath, recently returned back from [place]: #Severe sepsis: improved. #Bilateral pneumonia secondary to COVID-19: S/P plaquenil. Off abx. #Acute hypoxemic respiratory failure/ARDS: extubated 06/13/2019. #Acute encephalopathy: Likely due to #1 and high sodium #SHARITA: improved. #Diabetes with DKA #Hypernatremia per IMS, better #Micrococcus in blood culture: 1 of 4 likely a contaminant. Recommendations: continue supportive care COVID PCR tests x 2 are now negative, it would be prudent to maintain isolation while inpatient here. The negative tests will hopefully help with placement to LTACH. ID will sign off. Please call with questions. Mayo Medina MD, FACP [facility], [facility] ([facility]) C: [phone] O: [phone] F: [phone] Subjective Date of service: 06/23/19 Principal diagnosis: Ac hypoxemic resp failure; Bob. PNA; PUI CVOVID-19; DKA; Severe sepsis Interval history: No fever. Remains on high flow oxygen by NH but oxygen being weaned. Doing well. Awaiting LTACH transfer. Objective - Exam Narrative Exam: Physical Exam (reviewed in chart due to PPE conservation) Constitutional: limited due to PPE conservation strategy Head, Ears, Nose: limited due to PPE conservation strategy Eyes: limited due to PPE conservation strategy Neck: limited due to PPE conservation strategy Oral: limited due to PPE conservation strategy Cardiovascular: limited due to PPE conservation strategy Respiratory: limited due to PPE conservation strategy GI: limited due to PPE conservation strategy Musculoskeletal: limited due to PPE conservation strategy Skin: limited due to PPE conservation strategy Hem/Lymphatic: limited due to PPE conservation strategy Psych: limited due to PPE conservation strategy Neurological: limited due to PPE conservation strategy - Constitutional Vitals: Vital Signs Temp Pulse Resp BP Pulse Ox 98.1 F 79 22 154/99 99 06/23/19 12:00 06/23/19 13:00 06/23/19 13:00 06/23/19 13:00 06/23/19 13:00 Temperature -Last 24 Hours Temperature 98.1 F Temperature 98.5 F Temperature 98.8 F Temperature 98.6 F Temperature 98.3 F Temperature 98.2 F - Labs CBC & Chem 7: 06/20/19 04:50 06/20/19 04:50 Labs: Abnormal lab results 06/22/19 06/22/19 06/23/19 Range/Units 18:15 22:52 05:00 POC Glucose 286 H 333 H 281 H (70-105) 06/23/19 Range/Units 12:07 POC Glucose 304 H (70-105)
[2019-06-23 17:15] VITALS: BP 145/96
== END 2019-06-23 17:00 | DRG 870 ==
LOC: ED 10:25 → CC1 13:57 → IMCU 06-18 15:39
PROVIDERS: ADMIT Internal Medicine; ATTEND Internal Medicine
PROC: 0BH17EZ Insertion of Endotracheal Airway into Trachea, Via Natural or Artificial Opening (ICD-10-PCS; principal; 2019-06-03)
PROC: 5A1955Z Respiratory Ventilation, Greater than 96 Consecutive Hours (ICD-10-PCS; 2019-06-03)
PROC: 4A033R1 Measurement of Arterial Saturation, Peripheral, Percutaneous Approach (ICD-10-PCS; 2019-06-03)
PROC: 3E0234Z Introduction of Serum, Toxoid and Vaccine into Muscle, Percutaneous Approach (ICD-10-PCS; 2019-06-04)
DX: A41.89 Other specified sepsis (principal); U07.1 COVID-19; J96.01 Acute respiratory failure with hypoxia; E11.10 Type 2 diabetes mellitus with ketoacidosis without coma; J12.89 Other viral pneumonia; G92 Toxic encephalopathy; N17.9 Acute kidney failure, unspecified; E87.0 Hyperosmolality and hypernatremia; R65.20 Severe sepsis without septic shock; I10 Essential (primary) hypertension; E87.6 Hypokalemia; I48.0 Paroxysmal atrial fibrillation; R13.12 Dysphagia, oropharyngeal phase; Z23 Encounter for immunization
CPT/HCPCS: 36415; 36600; 70450; 71045; 71250; 74018; 80048; 80053; 80061; 80074; 80202; 80307; 80320; 81001; 81025; 82043; 82140; 82436; 82728; 82803; 82805; 82962; 83036; 83615; 83735; 83935; 84100; 84145; 84295; 84300; 84478; 84484; 85007; 85025; 85027; 85379; 86140; 87040; 87086; 87400; 87635; 90686; 90732; 93005; 93010; 94002; 94003; 94640; 94760; G0378; G0480; J0360; J0692; J1644; J1815; J1940; J2250; J2704; J3370; J3480; J7030; J7040; J7070

== ENCOUNTER 2020-02-16 10:09 | Outpatient (CLI) | payer BC | END 2020-02-16 10:10 | disposition home or self-care (01) | LOC: LAB 10:09 | PROVIDERS: ATTEND Specialist | DX: G93.41 Metabolic encephalopathy (principal) | CPT/HCPCS: 36415; 82607; 82652; 83921; 85652; 86592 ==